=== PATIENT | female | born 1940 | race Caucasian/White ===

== ENCOUNTER → 2017-12-07 14:02 | Outpatient (CLI) | payer MEDICARE, SELFPAY ==
[2017-12-07 15:43] LABS: Absolute Lymphocyte Count 2.88 X10^3/ul (0.83-4.51); Absolute Neutrophil Count 4.7 X10^3/uL (2.0-7.7); Basophil# 0.03 X10^3/uL; Basophil% 0.3 % (0-1); Eosinophil# 0.07 X10^3/uL; Eosinophils% 0.8 % (0-5); Hematocrit 43.6 % (37-47); Hemoglobin 14.1 g/dl (12.0-15.0); Lymphocyte # 2.88 X10^3/ul (4.0); Lymphocyte % 32.3 % (19-41); Mean Corp Hgb Conc 32.3 g/gl (32-36); Mean Corpuscular Hgb 29.9 pg (27.0-32.0); Mean Corpuscular Volume 92.6 fL (81-99); Mean Platelet Vol. 10.6 fl (6.2-12.0); Monocyte# 1.11 X10^3/uL; Monocyte% 12.4 % (0-10); Neutrophil # 4.74 X10^3/uL (2.7-7.7); Neutrophil % 53.1 % (47-70); Platelet Count 195 K/mm3 (150-450); RBC Distribution Width CV 16.8 % (11.6-14.6); RBC Distribution Width SD 55.9 fl (35.1-43.9); Red Blood Count 4.71 M/mm3 (4.2-5.4); White Blood Count 8.9 K/mm3 (4.4-11.0)
[2017-12-07 15:49] LABS: POSITIVE COUNT NO; POSITIVE DIFFERENTIAL NO; POSITIVE MORPHOLOGY NO
[2017-12-07 16:17] LABS: AST(SGOT) 30 U/L (15-37); Alanine Aminotransfer ALT/SGPT 46 U/L (13-56); Albumin, Serum 3.5 g/dL (3.2-5.0); Alkaline Phosphatase 68 U/L (45-117); Bilirubin, Direct 0.13 mg/dL (0.00-0.30); GGTP 42 U/L (5-55); Protein, Total 8.5 g/dL (6.4-8.2)
== END ==
PROVIDERS: Family Provider Family Medicine; PCP Family Medicine; Visit Provider Internal Medicine Gastroenterology
DX: R74.8 Abnormal levels of other serum enzymes (principal)
CPT/HCPCS: 36415; 80076; 82977; 85025

== ENCOUNTER → 2017-12-28 11:18 | Outpatient (CLI) | payer MEDICARE, SELFPAY ==
--- NOTE | 2017-12-28 11:25 | RAD_ITS ---
STUDY: X-RAY CHEST REASON FOR EXAM: Female, 77 years old. Chest pain and fever TECHNIQUE: Frontal and lateral views of the chest. COMPARISON: 06/23/2017. FINDINGS: The lungs are clear and expanded. There is no demonstrated pleural abnormality. Normal size heart. Normal mediastinum and alejandro. Normal visualized pulmonary arteries. Normal visualized aortic arch and descending thoracic aorta. Normal visualized thoracic spine. Normal visualized ribs, clavicles, and shoulders. There is no demonstrated abnormality of the visualized soft tissue structures of the upper abdomen. RAD/Chest PA and Lateral IMPRESSION: Normal x-ray examination of the chest. Electronically Signed: Salvatore Barrios MD at 11:53 EDT , Service support ,
[2017-12-28 12:11] LABS: Absolute Lymphocyte Count 1.54 X10^3/ul (0.83-4.51); Absolute Neutrophil Count 5.4 X10^3/uL (2.0-7.7); Basophil# 0.02 X10^3/uL; Basophil% 0.3 % (0-1); Eosinophil# 0.03 X10^3/uL; Eosinophils% 0.4 % (0-5); Hematocrit 46.9 % (37-47); Hemoglobin 15.1 g/dl (12.0-15.0); Lymphocyte # 1.54 X10^3/ul (4.0); Lymphocyte % 19.3 % (19-41); Mean Corp Hgb Conc 32.2 g/gl (32-36); Mean Corpuscular Hgb 30.1 pg (27.0-32.0); Mean Corpuscular Volume 93.4 fL (81-99); Mean Platelet Vol. 10.1 fl (6.2-12.0); Monocyte# 0.92 X10^3/uL; Monocyte% 11.5 % (0-10); Neutrophil # 5.44 X10^3/uL (2.7-7.7); Neutrophil % 68.1 % (47-70); Platelet Count 157 K/mm3 (150-450); RBC Distribution Width CV 15.9 % (11.6-14.6); RBC Distribution Width SD 53.7 fl (35.1-43.9); Red Blood Count 5.02 M/mm3 (4.2-5.4)
[2017-12-28 12:21] LABS: POSITIVE COUNT NO; POSITIVE DIFFERENTIAL NO; POSITIVE MORPHOLOGY NO
[2017-12-28 12:29] LABS: ALB/GLOB Ratio 0.7 RATIO (0.9-2.4); AST(SGOT) 44 U/L (15-37); Alanine Aminotransfer ALT/SGPT 58 U/L (13-56); Albumin, Serum 3.6 g/dL (3.2-5.0); Alkaline Phosphatase 71 U/L (45-117); Anion Gap 9 (5-15); BUN 9 mg/dL (7-18); BUN/Creat Ratio 9.6 RATIO (10-20); CPK Total, Creatine Kinase 54 U/L (26-192); Calcium,Total 8.8 mg/dL (8.5-10.1); Chloride 101 mmol/L (98-107); Creatinine, Serum 0.94 mg/dL (0.55-1.02); EST Glomerular Filtration Rate 61 mL/min (>60); Est Glom Filt Rate - Afr Amer 74 mL/min (>60); Globulin 5.2 g/dL (2.2-4.2); Glucose 105 mg/dL (74-106); Potassium 3.5 mmol/L (3.5-5.1); Protein, Total 8.8 g/dL (6.4-8.2); Sodium Level 137 mmol/L (136-145)
[2017-12-28 12:33] LABS: Vitamin B12 254 pg/mL (211-911)
== END ==
PROVIDERS: Family Provider Family Medicine; PCP Family Medicine; Visit Provider Nurse Practitioner Family
DX: I51.81 Takotsubo syndrome (principal)
CPT/HCPCS: 36415; 71046; 80053; 82550; 82607; 83735; 84484; 85025; 86140

== ENCOUNTER 2017-12-29 11:20 | Inpatient (IN) | payer MEDICARE, SELFPAY ==
[2017-12-29] VITALS (16 sets, daily range): BP systolic 95–117; BP diastolic 49–91; PULSE 93–109; RESP 13–25; TEMP 36.7–37.7; O2SAT 93–98; BMI 20.9; BMI 22.0; BMI 22.1
--- NOTE | 2017-12-29 11:31 | RAD_ITS ---
STUDY: X-RAY CHEST REASON FOR EXAM: Female, 77 years old. Chest pain TECHNIQUE: Single AP portable view of the chest. COMPARISON: 12/28/2017. FINDINGS: The lungs are clear and expanded. There is no demonstrated pleural abnormality. Normal size heart. Normal mediastinum and alejandro. Normal visualized pulmonary arteries. Normal visualized aortic arch and descending thoracic aorta. Normal visualized thoracic spine. Normal visualized ribs, clavicles, and shoulders. There is no demonstrated abnormality of the visualized soft tissue structures of the upper abdomen. RAD/Chest 1 View (Portable) IMPRESSION: Normal x-ray examination of the chest. Electronically Signed: Salvatore Barrios MD at 14:03 EDT , Service support ,
--- NOTE | 2017-12-29 11:31 | EKG12_ITS ---
Test Reason : CP Blood Pressure : / mmHG Vent. Rate : 105 BPM Atrial Rate : 105 BPM P-R Int : 140 ms QRS Dur : 080 ms QT Int : 332 ms P-R-T Axes : 058 007 065 degrees QTc Int : 438 ms Sinus tachycardia Inferior infarct , age undetermined Abnormal ECG Confirmed by DEJA COELLO, GARETH ([id number]), rewrite editor CHILO BIRCH ([id number] on 01/02/2018 3:42:57 PM Referred By: SETH GONZALEZ Confirmed By:GARETH SHORT MD
[2017-12-29] MEDS: 0.9% Normal Saline 1,000 ML 1000 ML IV (11:42)
[2017-12-29 11:43] LABS: Absolute Lymphocyte Count 0.95 X10^3/ul (0.83-4.51); Absolute Neutrophil Count 4.8 X10^3/uL (2.0-7.7); Basophil# 0.04 X10^3/uL; Basophil% 0.6 % (0-1); Eosinophil# 0.04 X10^3/uL; Eosinophils% 0.6 % (0-5); Hematocrit 45.3 % (37-47); Hemoglobin 15.1 g/dl (12.0-15.0); Lymphocyte # 0.95 X10^3/ul (4.0); Mean Corp Hgb Conc 33.3 g/gl (32-36); Mean Corpuscular Hgb 30.5 pg (27.0-32.0); Mean Corpuscular Volume 91.5 fL (81-99); Monocyte% 13.3 % (0-10); Neutrophil # 4.81 X10^3/uL (2.7-7.7); Neutrophil % 71.1 % (47-70); Platelet Count 144 K/mm3 (150-450); RBC Distribution Width CV 15.9 % (11.6-14.6); RBC Distribution Width SD 52.4 fl (35.1-43.9); Red Blood Count 4.95 M/mm3 (4.2-5.4); White Blood Count 6.8 K/mm3 (4.4-11.0)
[2017-12-29 11:44] LABS: POSITIVE COUNT NO; POSITIVE DIFFERENTIAL NO; POSITIVE MORPHOLOGY NO
[2017-12-29] MEDS: Ibuprofen 200 MG Tablet 400 MG PO (12:04)
[2017-12-29 12:14] LABS: ALB/GLOB Ratio 0.6 RATIO (0.9-2.4); AST(SGOT) 55 U/L (15-37); Alanine Aminotransfer ALT/SGPT 58 U/L (13-56); Albumin, Serum 3.2 g/dL (3.2-5.0); Alkaline Phosphatase 63 U/L (45-117); Anion Gap 7 (5-15); BUN 8 mg/dL (7-18); BUN/Creat Ratio 8.8 RATIO (10-20); Calcium,Total 8.2 mg/dL (8.5-10.1); Chloride 98 mmol/L (98-107); Creatinine, Serum 0.91 mg/dL (0.55-1.02); EST Glomerular Filtration Rate 64 mL/min (>60); Est Glom Filt Rate - Afr Amer 77 mL/min (>60); Estimated Creatinine Clearance 37.19 ml/min; Globulin 5.2 g/dL (2.2-4.2); Glucose 128 mg/dL (74-106); Potassium 3.5 mmol/L (3.5-5.1); Protein, Total 8.4 g/dL (6.4-8.2); Sodium Level 131 mmol/L (136-145)
[2017-12-29 12:23] LABS: International Normalized Ratio 1.1; Prothrombin Time (Protime)PT. 14.3 SECONDS (11.7-14.9)
[2017-12-29 12:24] LABS: Partial Thromboplast Time 28.4 Seconds (24.1-36.2)
--- NOTE | 2017-12-29 12:24 | ED.DCSUM_ITS ---
- ER Visit Summary Date of Service: 12/29/17 Chief Complaint: Ill History of Present Illness: The patient is a 77 F that has not been feeling well for several days. She has had some chest pain. She saw her PCP and had a normal troponin and chest x-ray. She is also having a fever, nausea, vomiting, and a rash over the right chest. She has a history of lupus and auto immune hepatitis. She also has a history of hypertension, hyperlipidemia, and hypothyroidism. Physical Examination: Temperature 100 and heart rate 108. Respiratory rate 20. Blood pressure normal. Pulse ox 93% on room air. Patient appears uncomfortable but not toxic or in distress. She is alert and oriented. Heart tachycardic. Lungs clear. Abdomen soft and nontender. Extremities unremarkable and nontender. She has a vesicular rash over the right upper chest extending into her right neck and right back. Neurovascular intact grossly in all extremities. Test Results: EKG showed sinus rhythm at a rate of [address] changes. No sign of acute ischemia or infarction. Hemoglobin 15.1 and platelets 144. Sodium 131 and glucose 128. Total bilirubin 1.2. Liver enzymes 5855. Troponin negative. Lactate 2.0. Chest x-ray, urinalysis, ammonia level, and cultures pending. Emergency Department Course and Treatment: Patient was placed on a monitor. Treated with IV fluids and Motrin while awaiting results. She did take Tylenol and Zofran at home already. Workup was fairly unremarkable. EKG and labs as noted above. Chest x-ray showed no acute findings. Urinalysis unremarkable. Ammonia level normal. Patient continued to have tachycardia with a heart rate 100. Blood pressure remained in the upper 90s systolic. She maintained good mentation and skin perfusion. I did continue fluid hydration. Patient was treated with acyclovir. I spoke with the hospitalist who will admit for further care. Treatment Plan: Above Disposition: Admission Impression: 1. Shingles 2. Fever This note was generated with [employer] dictation software. It may contain incorrect words, spelling, and punctuation that were not noted in review of the chart prior to signing ED Disposition - Plan for ED Patient: Chief Complaint: General Illness Referrals: Ashvin Cardenas MD [Primary Care Provider] -
[2017-12-29 12:30] LABS: Bacteria 0 SEEN /hpf (None Seen); Red Blood Cells-Urine 0 SEEN /hpf (0-5); Squamous Epithelial Cells - UA 0 SEEN /hpf (5-10)
[2017-12-29 12:41] LABS: Color, Urine Yellow (Yellow); Glucose, Dipstick Normal (Normal); Ketone-Dipstick 15 mg/dl (Negative); Leukocyte Esterase-Dipstick 25 /ul (Negative); Nitrite-Dipstick Negative (Negative); Occult Blood-Urine Negative /ul (Negative); Protein-Dipstick 30 mg/dl (Negative); Urine Bilirubin Dipstick Negative (Negative); Urine Clarity Clear (Clear); Urine Urobilinogen Normal (Normal)
[2017-12-29 12:47] LABS: Mucous, Urine 1+ /hpf (<or=2+); White Blood Cells 0-5 SEEN /hpf (0-5)
[2017-12-29] MEDS: 0.9% Normal Saline 1,000 ML 999 ML IV (14:53)
[2017-12-29 15:36] LABS: Reflex Lactate? Y
[2017-12-29 16:40] LABS: Lactic Acid 1.1 mmol/L (0.4-2.0)
--- NOTE | 2017-12-29 17:29 | PCM.HP.STD ---
History of Present Illness Date of Admission: 12/29/17 Chief Complaint: Fever The patient is a 77 year old F with past medical history of lupus and autoimmune hepatitis who presented with fever and malaise for several days ,she is now found to have vesicular rash over the right upper chest wall these are painful. Emergency room the patient is more than 100 , she was felt to have possible varicella zoster IV acyclovir was initiated. He denies any cough or purulent sputum production, shortness of breath, or vomiting. Past Medical History Past Medical History (Chronic Problems): Chronic Problems (Last Updated 06/28/17 @ 14:58 by Cecilia Sanchez) Nonhealing nonsurgical wound (Chronic) right forearm and left calf Traumatic open wound of right lower leg (Chronic) Hypothyroidism (Chronic) Monoclonal gammopathies (Chronic) Lupus (Chronic) Hypertension (Chronic) Autoimmune hepatitis (Chronic) Dyslipidemia (Chronic) Medical History: Medical History (Last Updated 06/28/17 @ 14:58 by Cecilia Sanchez) COLONOSCOPY Glaucoma H40.9 Heart disease I51.9 History of left heart catheterization (LHC) Z98.890 Hyperlipidemia E78.5 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 Tachycardia R00.0 Allergies griseofulvin ultramicrosize [From Priti-PEG (ultramicrosize)] Allergy (Severe, Verified 12/29/17 11:26) RACING HEART AND SEVERE H/A azathioprine [From Imuran] Adverse Reaction (Severe, Verified 12/29/17 11:26) Nausea/Vom/Diarrhea azathioprine sodium [From Imuran] Adverse Reaction (Severe, Verified 12/29/17 11:26) Nausea/Vom/Diarrhea Penicillins Adverse Reaction (Severe, Verified 12/29/17 11:26) Hives Home Medications: Ambulatory Orders Medication Instructions Recorded Aspirin [Aspirin, Baby] 81 mg PO DAILY@0800 06/23/17 Bimatoprost [Lumigan Opthalmic] 1 drop EACH EYE QHS 06/23/17 Brimonidine 0.15% [Alphagan P 1 drop EACH EYE BID 06/23/17 0.15%] Budesonide [Budesonide EC] 3 mg PO DAILY 06/23/17 Grape Seed Extract [Meganatural-Bp] 300 mg PO DAILY 06/23/17 Hydroxychloroquine [Plaquenil] 200 mg PO DAILYCM 06/23/17 Levothyroxine Sodium [Synthroid] 75 mcg PO DAILY 06/23/17 Metoprolol Tartrate [Lopressor 50 mg PO BID 06/23/17 (beta lorie)] Timolol 0.5% [Timoptic] 1 drop EACH EYE DAILY 06/23/17 Surgical History: Surgical History (Last Updated 06/28/17 @ 14:58 by Cecilia Sanchez) Hx of cholecystectomy Z98.890, Z90.49 Surgical History: cataract, cholecystectomy, - - D+C x 2, BLTL, sinus cyst removal BL. Psychiatric History: No pertinent psych hx VETERINARY BACTERIOLOGIST History: No pertinent VETERINARY BACTERIOLOGIST history Smoking Status: Never smoker - *Family History Maternal Family History: Family History (Last Updated 06/28/17 @ 14:58 by Cecilia Sanchez) Father Heart disease Mother Heart disease History Items: No pertinent history Paternal Family History: Family History (Last Updated 06/28/17 @ 14:58 by Cecilia Sanchez) Father Heart disease Mother Heart disease History Items: No pertinent history Review of Systems Comment: All Systems were reviewed with pertinent positives mentioned in the HPI above. VTE Information - Inpt Only VTE Present on Admission: No VTE Mechan Device Prophylaxis: SCD's VTE Pharm Prophylaxis ordered?: No - Physical Exam General: Alert, Oriented x3 HEENT: Atraumatic Oral: Moist Mucosa Neck: Supple Lungs: Clear to auscultation Cardiovascular: Regular rate Skin: - - vericular eruptions over left upper chest wall Vital Signs Temp Pulse Resp BP Pulse Ox 98.1 F 95 18 107/57 L 97 12/29/17 16:45 12/29/17 16:45 12/29/17 16:45 12/29/17 16:45 12/29/17 16:47 Oxygen Flow Rate (L/min) 2 Oxygen Delivery Method Nasal Cannula Weight: 51 kg Body Mass Index (BMI) 22.0 Laboratory Tests Past 24 Hrs 12/29/17 15:49 Lactic Acid 1.1 Assessment/Plan All Active Problems (Last Updated 06/28/17 @ 14:58 by Cecilia Sanchez) Medical management (Acute) C. difficile colitis (Acute) Generalized weakness (Acute) Uncontrollable nausea and vomiting (Acute) 1. Herpes zoster, right upper chest wall; patient has been started on IV acyclovir which we would continue. I see No evidence of secondary bacterial infection at this time and antibiotic therapy is not indicated. 2. Fever secondary to #1 3. Dehydration; we will start him on IV hydration. 4. History of lupus; we will continue her Plaquenil 5. Autoimmune hepatitis ; stable 6. Chronic steroid therapy with budesonide, will place her on stress a dose. 7. Hypothyroidism; she is on Synthroid. 8. DVT prophylaxis with Lovenox. Code Visit Inpatient E&M: 97083 Init Hosp L3
--- NOTE | 2017-12-29 20:10 | NURSING ---
PTS DAUGHTERS RANG CALL LIGHT WITH CONCERN THAT PTS EYELIDS, CHIN AND NECK AREA ARE MORE SWOLLEN THAN USUAL. PT DENIES DIFFICULTY BREATHING, DENIES ITCHING, NO DIFFICULTY SWALLOWING, NO NEW HIVES, LUNG SOUNDS CLEAR THROUGHOUT. NO APPARENT DISTRESS. PT STATES HANDS FEEL A LITTLE SWOLLEN TOO. VS OBTAINED. SPOKE WITH DR CUNNINGHAM REGARDING DAUGHTERS CONCERNS AND NEW ORDER RECEIVED TO DECREASE IV FLUIDS TO 75ML/HR.
[2017-12-29] MEDS: 0.9% Normal Saline 1,000 ML 75 ML IV (20:28)
[2017-12-29] MEDS: Metoprolol Tartrate 50 MG Tablet PO (23:29)
[2017-12-29] MEDS: Aspirin 81 MG TAB.CHEW PO (23:30)
[2017-12-29] MEDS: Latanoprost 0.005% 1 Bottle 1 DRP EACH EYE (23:31)
[2017-12-29] MEDS: BRIMONIDINE 0.15% 5 ML Bottle 1 DRP EACH EYE (23:31)
[2017-12-30] VITALS (17 sets, daily range): BP systolic 100–138; BP diastolic 54–65; PULSE 85–121; RESP 18–20; TEMP 37.4–38.7; O2SAT 96–98
[2017-12-30] MEDS: Ondansetron 4 MG/2 ML Vial IV ×4 (00:07→22:12)
[2017-12-30] MEDS: proMETHazine 25 MG/ML Syringe 12.5 MG IV (03:03)
[2017-12-30] MEDS: 0.9% NaCl Peripheral Flush Adult/Peds IV ×3 (03:11→12:10)
[2017-12-30] MEDS: Acetaminophen 325 MG Tablet 650 MG PO ×2 (03:40→09:16)
[2017-12-30] MEDS: Levothyroxine 75 MCG Tablet PO (05:44)
[2017-12-30 06:49] LABS: Absolute Lymphocyte Count 0.73 X10^3/ul (0.83-4.51); Absolute Neutrophil Count 2.9 X10^3/uL (2.0-7.7); Basophil# 0.01 X10^3/uL; Basophil% 0.2 % (0-1); Eosinophil# 0.05 X10^3/uL; Eosinophils% 1.2 % (0-5); Hematocrit 39.6 % (37-47); Hemoglobin 12.8 g/dl (12.0-15.0); Lymphocyte # 0.73 X10^3/ul (4.0); Lymphocyte % 17.8 % (19-41); Mean Corp Hgb Conc 32.3 g/gl (32-36); Mean Corpuscular Hgb 29.8 pg (27.0-32.0); Mean Corpuscular Volume 92.3 fL (81-99); Mean Platelet Vol. 10.2 fl (6.2-12.0); Monocyte# 0.44 X10^3/uL; Monocyte% 10.8 % (0-10); Neutrophil # 2.85 X10^3/uL (2.7-7.7); Neutrophil % 69.8 % (47-70); Platelet Count 102 K/mm3 (150-450); RBC Distribution Width CV 15.9 % (11.6-14.6); RBC Distribution Width SD 53.5 fl (35.1-43.9); Red Blood Count 4.29 M/mm3 (4.2-5.4); White Blood Count 4.1 K/mm3 (4.4-11.0)
[2017-12-30 07:03] LABS: POSITIVE COUNT NO; POSITIVE DIFFERENTIAL NO; POSITIVE MORPHOLOGY NO
[2017-12-30 07:05] LABS: Anion Gap 9 (5-15); BUN 5 mg/dL (7-18); BUN/Creat Ratio 9.2 RATIO (10-20); Calcium,Total 7.3 mg/dL (8.5-10.1); Chloride 107 mmol/L (98-107); Creatinine, Serum 0.54 mg/dL (0.55-1.02); EST Glomerular Filtration Rate 115 mL/min (>60); Est Glom Filt Rate - Afr Amer 139 mL/min (>60); Estimated Creatinine Clearance 37.93 ml/min; Glucose 94 mg/dL (74-106); Potassium 3.3 mmol/L (3.5-5.1); Sodium Level 137 mmol/L (136-145)
[2017-12-30] MEDS: 0.9% Normal Saline 1,000 ML 75 ML IV (09:23)
--- NOTE | 2017-12-30 09:33 | NURSING ---
PT THREW UP ONE TYLENOL A FEW MINUTES AFTER ADMINTERATION.
[2017-12-30] MEDS: Timolol 0.5% 5ML OPTH.BTL 1 DRP EACH EYE (11:06)
[2017-12-30] MEDS: BRIMONIDINE 0.15% 5 ML Bottle 1 DRP EACH EYE ×2 (11:06→22:11)
[2017-12-30] MEDS: Budesonide 3 MG CAPSULE.EC 9 MG PO (11:09)
[2017-12-30] MEDS: Enoxaparin 40 MG/0.4 ML Syringe SC (11:09)
[2017-12-30] MEDS: Metoprolol Tartrate 50 MG Tablet PO ×2 (11:10→22:10)
[2017-12-30] MEDS: Acetaminophen 650 MG Suppository RECTAL ×2 (11:46→22:12)
--- NOTE | 2017-12-30 12:12 | PCM.PN.HOSP ---
Vitals/I&O's: Vital Signs Temp Pulse Resp BP Pulse Ox 101.7 F H 121 H 18 127/65 H 97 12/30/17 11:19 12/30/17 11:19 12/30/17 11:19 12/30/17 11:19 12/30/17 11:19 Oxygen Flow Rate (L/min) 2 Oxygen Delivery Method Nasal Cannula Weight: 51 kg Body Mass Index (BMI) 22.0 Intake and Output for Last 24 Hours 12/28/17 12/29/17 12/30/17 23:59 23:59 23:59 Intake Total 1481 / 1481 Output Total 1000 / 1000 Balance 481 / 481 Laboratory Results 12/29/17 15:49: Lactic Acid 1.1 12/30/17 05:45: WBC 4.1 L, RBC 4.29, Hgb 12.8, Hct 39.6, MCV 92.3, MCH 29.8, MCHC 32.3, RDW 15.9 H, RDW Differential 53.5 H, Plt Count 102 L, MPV 10.2, Immature Gran % (Auto) 0.200, Neut % (Auto) 69.8, Lymph % (Auto) 17.8 L, [place] % (Auto) 10.8 H, Eos % (Auto) 1.2, Baso % (Auto) 0.2, Absolute Neuts (auto) 2.9, Absolute Lymphs (auto) 0.73 L, Total Counted Not Reportable 12/30/17 05:45: Sodium 137, Potassium 3.3 L, Chloride 107, Carbon Dioxide 21.0, Anion Gap 9, BUN 5 L, Creatinine 0.54 L, Estim Creat Clear Calc 37.93, Est GFR (MDRD) Af Amer 139, Est GFR (MDRD) Non-Af 115, BUN/Creatinine Ratio 9.2 L, Glucose 94, Calcium 7.3 L Current Medications Acetaminophen (Tylenol) 650 mg PO Q4H PRN PRN PRN Reason: FEVER Last Admin: 12/30/17 09:16 Dose: 650 mg Acetaminophen (Tylenol) 650 mg RECTAL Q4H PRN PRN PRN Reason: pain fever Last Admin: 12/30/17 11:46 Dose: 650 mg Aspirin (Aspirin, Baby) 81 mg PO DAILY@0800 [facility] Last Admin: 12/29/17 23:30 Dose: 81 mg Brimonidine Tartrate (Alphagan P 0.15%) 1 drop EACH EYE BID [facility] Last Admin: 12/30/17 11:06 Dose: 1 drop Budesonide (Budesonide Ec) 9 mg PO DAILY [facility] Last Admin: 12/30/17 11:09 Dose: 6 mg Enoxaparin Sodium (Lovenox) 40 mg SC DAILY@1000 [facility] [place] Last Admin: 12/30/17 11:09 Dose: 40 mg Hydroxychloroquine Sulfate (Plaquenil) 200 mg PO 2200 [facility] Acyclovir Sodium 400 mg/ (Dextrose) 258 mls @ 258 mls/hr IV Q8 [facility] [place] Last Admin: 12/30/17 05:43 Dose: 258 mls/hr Sodium Chloride () 1,000 mls @ 75 mls/hr IV .[id number] [facility] Last Admin: 12/30/17 09:23 Dose: 75 mls/hr Latanoprost (Xalatan Opthalmic) 1 drop EACH EYE QHS [facility] Last Admin: 12/29/17 23:31 Dose: 1 drop Levothyroxine Sodium (Synthroid) 75 mcg PO DAILY@0600 [facility] [place] Last Admin: 12/30/17 05:44 Dose: 75 mcg Magnesium Hydroxide (Milk Of Magnesia) 30 ml PO DAILY PRN PRN PRN Reason: Constipation Metoprolol Tartrate (Lopressor (Beta Rosalind)) 50 mg PO BID [facility] Last Admin: 12/30/17 11:10 Dose: 50 mg Nutritional Formula (Lactose Free) (Ensure Clear) 120 ml PO 4X/DAY [facility] Ondansetron HCl (Zofran) 4 mg IV Q4H PRN PRN PRN Reason: NAUSEA Last Admin: 12/30/17 09:22 Dose: 4 mg Promethazine HCl (Phenergan) 12.5 mg IV Q6H PRN PRN PRN Reason: NAUSEA/VOMITING Last Admin: 12/30/17 03:03 Dose: 12.5 mg Sodium Chloride () 5 - 30 ml IV UD PRN PRN Reason: SALINE FLUSH Last Admin: 12/30/17 09:22 Dose: 10 ml Timolol Maleate (Timoptic) 1 drop EACH EYE DAILY [facility] Last Admin: 12/30/17 11:06 Dose: 1 drop Medical Necessity - Tobacco Use Smoking Status: Never smoker Assessment/Plan All Active Problems (Last Updated 06/28/17 @ 14:58 by Cecilia Sanchez) Medical management (Acute) C. difficile colitis (Acute) Generalized weakness (Acute) Uncontrollable nausea and vomiting (Acute) 1. Herpes zoster, right upper chest wall; we will continue IV acyclovir . I see No evidence of secondary bacterial infection at this time and antibiotic therapy is not indicated. 2. Fever secondary to #1 3. Dehydration; we will continue gentle hydration. 4. History of lupus; she is on Plaquenil 5. Autoimmune hepatitis ; she takes 3mg of Budesonide daily 6. Chronic steroid therapy with budesonide, changed to stress a dose steroids. 7. Hypothyroidism; she is on Synthroid. 8. DVT prophylaxis with Lovenox. 9. Generalized weakness due to medical illness; PT/OT Code Visit Inpatient E&M: 52820 Subs Hosp L3
--- NOTE | 2017-12-30 12:22 | PN_ITS ---
Vitals/I&O's: Vital Signs Temp Pulse Resp BP Pulse Ox 101.7 F H 121 H 18 127/65 H 97 12/30/17 11:19 12/30/17 11:19 12/30/17 11:19 12/30/17 11:19 12/30/17 11:19 Oxygen Flow Rate (L/min) 2 Oxygen Delivery Method Nasal Cannula Weight: 51 kg Body Mass Index (BMI) 22.0 Intake and Output for Last 24 Hours 12/28/17 12/29/17 12/30/17 23:59 23:59 23:59 Intake Total 1481 / 1481 Output Total 1000 / 1000 Balance 481 / 481 Laboratory Results 12/29/17 15:49: Lactic Acid 1.1 12/30/17 05:45: WBC 4.1 L, RBC 4.29, Hgb 12.8, Hct 39.6, MCV 92.3, MCH 29.8, MCHC 32.3, RDW 15.9 H, RDW Differential 53.5 H, Plt Count 102 L, MPV 10.2, Immature Gran % (Auto) 0.200, Neut % (Auto) 69.8, Lymph % (Auto) 17.8 L, [place] % (Auto) 10.8 H, Eos % (Auto) 1.2, Baso % (Auto) 0.2, Absolute Neuts (auto) 2.9, Absolute Lymphs (auto) 0.73 L, Total Counted Not Reportable 12/30/17 05:45: Sodium 137, Potassium 3.3 L, Chloride 107, Carbon Dioxide 21.0, Anion Gap 9, BUN 5 L, Creatinine 0.54 L, Estim Creat Clear Calc 37.93, Est GFR ( MDRD) Af Amer 139, Est GFR (MDRD) Non-Af 115, BUN/Creatinine Ratio 9.2 L, Glucose 94, Calcium 7.3 L Current Medications Acetaminophen (Tylenol) 650 mg PO Q4H PRN PRN PRN Reason: FEVER Last Admin: 12/30/17 09:16 Dose: 650 mg Acetaminophen (Tylenol) 650 mg RECTAL Q4H PRN PRN PRN Reason: pain fever Last Admin: 12/30/17 11:46 Dose: 650 mg Aspirin (Aspirin, Baby) 81 mg PO DAILY@0800 [facility] Last Admin: 12/29/17 23:30 Dose: 81 mg Brimonidine Tartrate (Alphagan P 0.15%) 1 drop EACH EYE BID [facility] Last Admin: 12/30/17 11:06 Dose: 1 drop Budesonide (Budesonide Ec) 9 mg PO DAILY [facility] Last Admin: 12/30/17 11:09 Dose: 6 mg Enoxaparin Sodium (Lovenox) 40 mg SC DAILY@1000 [facility] Last Admin: 12/30/17 11:09 Dose: 40 mg Hydroxychloroquine Sulfate (Plaquenil) 200 mg PO 2200 [facility] Acyclovir Sodium 400 mg/ (Dextrose) 258 mls @ 258 mls/hr IV Q8 [facility] Last Admin: 12/30/17 05:43 Dose: 258 mls/hr Sodium Chloride () 1,000 mls @ 75 mls/hr IV .[id number] [facility] Last Admin: 12/30/17 09:23 Dose: 75 mls/hr Latanoprost (Xalatan Opthalmic) 1 drop EACH EYE QHS [facility] Last Admin: 12/29/17 23:31 Dose: 1 drop Levothyroxine Sodium (Synthroid) 75 mcg PO DAILY@0600 [facility] Last Admin: 12/30/17 05:44 Dose: 75 mcg Magnesium Hydroxide (Milk Of Magnesia) 30 ml PO DAILY PRN PRN PRN Reason: Constipation Metoprolol Tartrate (Lopressor (Beta Rosalind)) 50 mg PO BID [facility] Last Admin: 12/30/17 11:10 Dose: 50 mg Nutritional Formula (Lactose Free) (Ensure Clear) 120 ml PO 4X/DAY [facility] Ondansetron HCl (Zofran) 4 mg IV Q4H PRN PRN PRN Reason: NAUSEA Last Admin: 12/30/17 09:22 Dose: 4 mg Promethazine HCl (Phenergan) 12.5 mg IV Q6H PRN PRN PRN Reason: NAUSEA/VOMITING Last Admin: 12/30/17 03:03 Dose: 12.5 mg Sodium Chloride () 5 - 30 ml IV UD PRN PRN Reason: SALINE FLUSH Last Admin: 12/30/17 09:22 Dose: 10 ml Timolol Maleate (Timoptic) 1 drop EACH EYE DAILY [facility] Last Admin: 12/30/17 11:06 Dose: 1 drop Medical Necessity - Tobacco Use Smoking Status: Never smoker Assessment/Plan All Active Problems (Last Updated 06/28/17 @ 14:58 by Cecilia Sanchez) Medical management (Acute) C. difficile colitis (Acute) Generalized weakness (Acute) Uncontrollable nausea and vomiting (Acute) 1. Herpes zoster, right upper chest wall; we will continue IV acyclovir . I see No evidence of secondary bacterial infection at this time and antibiotic therapy is not indicated. 2. Fever secondary to #1 3. Dehydration; we will continue gentle hydration. 4. History of lupus; she is on Plaquenil 5. Autoimmune hepatitis ; she takes 3mg of Budesonide daily 6. Chronic steroid therapy with budesonide, changed to stress a dose steroids. 7. Hypothyroidism; she is on Synthroid. 8. DVT prophylaxis with Lovenox. 9. Generalized weakness due to medical illness; PT/OT Code Visit Inpatient E&M: 95351 Subs Hosp L3
[2017-12-30] MEDS: Latanoprost 0.005% 1 Bottle 1 DRP EACH EYE (22:11)
[2017-12-31] VITALS (14 sets, daily range): BP systolic 131–144; BP diastolic 61–66; PULSE 86–107; RESP 16–18; TEMP 37.1–37.8; O2SAT 97–98
[2017-12-31] MEDS: 0.9% Normal Saline 1,000 ML 75 ML IV (00:54)
[2017-12-31] MEDS: Levothyroxine 75 MCG Tablet PO (06:15)
--- NOTE | 2017-12-31 08:06 | PCM.PN.HOSP ---
Subjective: Patient is a 77-year-old female with underlying history of lupus and autoimmune hepatitis who presented with vesicular eruptions involving the right upper chest extending to the ear and assessment of herpes zoster infection was made admitted to regular nursing floor where patient has since been managed Objective: GENERAL: cooperative and in no apparent distress. HEENT: Clear conjunctiva, moist oral mucosa NECK; supple, normal thyroid, no distended JVD. CHEST: Area of erythema with vesicles right upper chest extending the right side of the neck and ear HEART: Regular S1 S2, no audible murmurs ABDOMEN: soft, non-tender, normoactive bowel sounds, RECTAL: deferred EXTREMITIES: No edema, no clubbing, no cyanosis. CLINICAL VETERINARIAN: Awake; no lateralizing signs. SKIN: As described above Vitals/I&O's: Vital Signs Temp Pulse Resp BP Pulse Ox 98.8 F 96 16 144/65 H 97 12/31/17 04:10 12/31/17 06:00 12/31/17 04:10 12/31/17 04:10 12/31/17 06:39 Oxygen Flow Rate (L/min) 2 Oxygen Delivery Method Nasal Cannula Weight: 51 kg Body Mass Index (BMI) 22.0 Intake and Output for Last 24 Hours 12/29/17 12/30/17 12/31/17 23:59 23:59 23:59 Intake Total 2952 / 2952 1519 / 1519 Output Total 1880 / 1880 2120 / 2120 Balance 1072 / 1072 -601 / -601 Current Medications Acetaminophen (Tylenol) 650 mg PO Q4H PRN PRN PRN Reason: FEVER Last Admin: 12/30/17 09:16 Dose: 650 mg Acetaminophen (Tylenol) 650 mg RECTAL Q4H PRN PRN PRN Reason: pain fever Last Admin: 12/30/17 22:12 Dose: 650 mg Aspirin (Aspirin, Baby) 81 mg PO DAILY@0800 [facility] Last Admin: 12/29/17 23:30 Dose: 81 mg Brimonidine Tartrate (Alphagan P 0.15%) 1 drop EACH EYE BID [facility] Last Admin: 12/30/17 22:11 Dose: 1 drop Budesonide (Budesonide Ec) 9 mg PO DAILY [facility] Last Admin: 12/30/17 11:09 Dose: 6 mg Capsaicin (Zostrix) 1 applic TOPICAL 4X/DAY PRN PRN PRN Reason: Protocol Enoxaparin Sodium (Lovenox) 40 mg SC DAILY@1000 [facility] Last Admin: 12/30/17 11:09 Dose: 40 mg Hydroxychloroquine Sulfate (Plaquenil) 200 mg PO 2200 [facility] Last Admin: 12/30/17 22:12 Dose: Not Given Acyclovir Sodium 400 mg/ (Dextrose) 258 mls @ 258 mls/hr IV Q8 [facility] Last Admin: 12/31/17 06:15 Dose: 258 mls/hr Sodium Chloride () 1,000 mls @ 75 mls/hr IV .[id number] [facility] Last Admin: 12/31/17 00:54 Dose: 75 mls/hr Latanoprost (Xalatan Opthalmic) 1 drop EACH EYE QHS [facility] Last Admin: 12/30/17 22:11 Dose: 1 drop Levothyroxine Sodium (Synthroid) 75 mcg PO DAILY@0600 [facility] Last Admin: 12/31/17 06:15 Dose: 75 mcg Magnesium Hydroxide (Milk Of Magnesia) 30 ml PO DAILY PRN PRN PRN Reason: Constipation Metoprolol Tartrate (Lopressor (Beta Rosalind)) 50 mg PO BID [facility] Last Admin: 12/30/17 22:10 Dose: 50 mg Nutritional Formula (Lactose Free) (Ensure Clear) 120 ml PO 4X/DAY [facility] Last Admin: 12/30/17 22:11 Dose: 120 ml Ondansetron HCl (Zofran) 4 mg IV Q4H PRN PRN PRN Reason: NAUSEA Last Admin: 12/30/17 22:12 Dose: 4 mg Promethazine HCl (Phenergan) 12.5 mg IV Q6H PRN PRN PRN Reason: NAUSEA/VOMITING Last Admin: 12/30/17 03:03 Dose: 12.5 mg Sodium Chloride () 5 - 30 ml IV UD PRN PRN Reason: SALINE FLUSH Last Admin: 12/30/17 12:10 Dose: 20 ml Timolol Maleate (Timoptic) 1 drop EACH EYE DAILY [facility] Last Admin: 12/30/17 11:06 Dose: 1 drop Medical Necessity - Tobacco Use Smoking Status: Never smoker Assessment/Plan All Active Problems (Last Updated 06/28/17 @ 14:58 by Cecilia Sanchez) Medical management (Acute) C. difficile colitis (Acute) Generalized weakness (Acute) Uncontrollable nausea and vomiting (Acute) Patient is a 77-year-old female with underlying history of lupus and autoimmune hepatitis who presented with vesicular eruptions involving the right upper chest extending to the ear and assessment of herpes zoster infection was made admitted to regular nursing floor where patient has since been managed 1. Acute herpes zoster infection involving the right upper chest patient was started on acyclovir admitted to regular nursing floor consultation was placed infectious disease 2. Dehydration managed with IV fluids with monitoring of electrolyte 3. Hyponatremia secondary to hypovolemic hyponatremia resolved with IV fluids 4. Lupus patient is on Plaquenil 5. Autoimmune hepatitis patient takes 3 mg of budesonide daily 6. Hypothyroidism-patient is on levothyroxine home dose continued 7. DVT prophylaxis SC Lovenox Code Visit Inpatient E&M: 58081 [facility] Hosp L3
--- NOTE | 2017-12-31 08:10 | PN_ITS ---
Subjective: Patient is a 77-year-old female with underlying history of lupus and autoimmune hepatitis who presented with vesicular eruptions involving the right upper chest extending to the ear and assessment of herpes zoster infection was made admitted to regular nursing floor where patient has since been managed Objective: GENERAL: cooperative and in no apparent distress. HEENT: Clear conjunctiva, moist oral mucosa NECK; supple, normal thyroid, no distended JVD. CHEST: Area of erythema with vesicles right upper chest extending the right side of the neck and ear HEART: Regular S1 S2, no audible murmurs ABDOMEN: soft, non-tender, normoactive bowel sounds, RECTAL: deferred EXTREMITIES: No edema, no clubbing, no cyanosis. 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 SKIN: As described above Vitals/I&O's: Vital Signs Temp Pulse Resp BP Pulse Ox 98.8 F 96 16 144/65 H 97 12/31/17 04:10 12/31/17 06:00 12/31/17 04:10 12/31/17 04:10 12/31/17 06:39 Oxygen Flow Rate (L/min) 2 Oxygen Delivery Method Nasal Cannula Weight: 51 kg Body Mass Index (BMI) 22.0 Intake and Output for Last 24 Hours 12/29/17 12/30/17 12/31/17 23:59 23:59 23:59 Intake Total 2952 / 2952 1519 / 1519 Output Total 1880 / 1880 2120 / 2120 Balance 1072 / 1072 -601 / -601 Current Medications Acetaminophen (Tylenol) 650 mg PO Q4H PRN PRN PRN Reason: FEVER Last Admin: 12/30/17 09:16 Dose: 650 mg Acetaminophen (Tylenol) 650 mg RECTAL Q4H PRN PRN PRN Reason: pain fever Last Admin: 12/30/17 22:12 Dose: 650 mg Aspirin (Aspirin, Baby) 81 mg PO DAILY@0800 [facility] Last Admin: 12/29/17 23:30 Dose: 81 mg Brimonidine Tartrate (Alphagan P 0.15%) 1 drop EACH EYE BID [facility] Last Admin: 12/30/17 22:11 Dose: 1 drop Budesonide (Budesonide Ec) 9 mg PO DAILY [facility] Last Admin: 12/30/17 11:09 Dose: 6 mg Capsaicin (Zostrix) 1 applic TOPICAL 4X/DAY PRN PRN PRN Reason: Protocol Enoxaparin Sodium (Lovenox) 40 mg SC DAILY@1000 [facility] Last Admin: 12/30/17 11:09 Dose: 40 mg Hydroxychloroquine Sulfate (Plaquenil) 200 mg PO 2200 [facility] Last Admin: 12/30/17 22:12 Dose: Not Given Acyclovir Sodium 400 mg/ (Dextrose) 258 mls @ 258 mls/hr IV Q8 [facility] Last Admin: 12/31/17 06:15 Dose: 258 mls/hr Sodium Chloride () 1,000 mls @ 75 mls/hr IV .[id number] [facility] Last Admin: 12/31/17 00:54 Dose: 75 mls/hr Latanoprost (Xalatan Opthalmic) 1 drop EACH EYE QHS [facility] Last Admin: 12/30/17 22:11 Dose: 1 drop Levothyroxine Sodium (Synthroid) 75 mcg PO DAILY@0600 [facility] Last Admin: 12/31/17 06:15 Dose: 75 mcg Magnesium Hydroxide (Milk Of Magnesia) 30 ml PO DAILY PRN PRN PRN Reason: Constipation Metoprolol Tartrate (Lopressor (Beta Rosalind)) 50 mg PO BID [facility] Last Admin: 12/30/17 22:10 Dose: 50 mg Nutritional Formula (Lactose Free) (Ensure Clear) 120 ml PO 4X/DAY [facility] Last Admin: 12/30/17 22:11 Dose: 120 ml Ondansetron HCl (Zofran) 4 mg IV Q4H PRN PRN PRN Reason: NAUSEA Last Admin: 12/30/17 22:12 Dose: 4 mg Promethazine HCl (Phenergan) 12.5 mg IV Q6H PRN PRN PRN Reason: NAUSEA/VOMITING Last Admin: 12/30/17 03:03 Dose: 12.5 mg Sodium Chloride () 5 - 30 ml IV UD PRN PRN Reason: SALINE FLUSH Last Admin: 12/30/17 12:10 Dose: 20 ml Timolol Maleate (Timoptic) 1 drop EACH EYE DAILY [facility] Last Admin: 12/30/17 11:06 Dose: 1 drop Medical Necessity - Tobacco Use Smoking Status: Never smoker Assessment/Plan All Active Problems (Last Updated 06/28/17 @ 14:58 by Cecilia Sanchez) Medical management (Acute) C. difficile colitis (Acute) Generalized weakness (Acute) Uncontrollable nausea and vomiting (Acute) Patient is a 77-year-old female with underlying history of lupus and autoimmune hepatitis who presented with vesicular eruptions involving the right upper chest extending to the ear and assessment of herpes zoster infection was made admitted to regular nursing floor where patient has since been managed 1. Acute herpes zoster infection involving the right upper chest patient was started on acyclovir admitted to regular nursing floor consultation was placed infectious disease 2. Dehydration managed with IV fluids with monitoring of electrolyte 3. Hyponatremia secondary to hypovolemic hyponatremia resolved with IV fluids 4. Lupus patient is on Plaquenil 5. Autoimmune hepatitis patient takes 3 mg of budesonide daily 6. Hypothyroidism-patient is on levothyroxine home dose continued 7. DVT prophylaxis SC Lovenox Code Visit Inpatient E&M: 12140 [facility] L[facility]
[2017-12-31 08:31] LABS: Hematocrit 37.1 % (37-47); Mean Corp Hgb Conc 32.3 g/gl (32-36); Mean Corpuscular Hgb 29.5 pg (27.0-32.0); Mean Corpuscular Volume 91.2 fL (81-99); Mean Platelet Vol. 10.4 fl (6.2-12.0); Platelet Count 104 K/mm3 (150-450); RBC Distribution Width CV 15.7 % (11.6-14.6); RBC Distribution Width SD 52.6 fl (35.1-43.9); Red Blood Count 4.07 M/mm3 (4.2-5.4); White Blood Count 4.4 K/mm3 (4.4-11.0)
[2017-12-31 08:32] LABS: Scan Indicated on CBC? Y/N NO
[2017-12-31] MEDS: Aspirin 81 MG TAB.CHEW PO (08:36)
[2017-12-31] MEDS: BRIMONIDINE 0.15% 5 ML Bottle 1 DRP EACH EYE (08:37)
[2017-12-31] MEDS: Timolol 0.5% 5ML OPTH.BTL 1 DRP EACH EYE (08:38)
[2017-12-31] MEDS: Budesonide 3 MG CAPSULE.EC 9 MG PO (08:42)
[2017-12-31] MEDS: Metoprolol Tartrate 50 MG Tablet PO ×2 (08:44→23:38)
[2017-12-31] MEDS: Enoxaparin 40 MG/0.4 ML Syringe SC (08:45)
[2017-12-31 09:14] LABS: Anion Gap 8 (5-15); BUN 3 mg/dL (7-18); BUN/Creat Ratio 4.4 RATIO (10-20); Calcium,Total 7.4 mg/dL (8.5-10.1); Chloride 105 mmol/L (98-107); Creatinine, Serum 0.68 mg/dL (0.55-1.02); EST Glomerular Filtration Rate 89 mL/min (>60); Est Glom Filt Rate - Afr Amer 108 mL/min (>60); Estimated Creatinine Clearance 37.93 ml/min; Glucose 143 mg/dL (74-106); Magnesium 1.8 mg/dL (1.6-2.6); Potassium 2.9 mmol/L (3.5-5.1); Sodium Level 136 mmol/L (136-145)
--- NOTE | 2017-12-31 12:21 | CASEMGMT ---
RN BOOKER Face to Face with patient for initial transition planning/care coordination assessment. RN CM introduced self and role at [facility]. Patient lying in bed, alert and oriented, daughter at bedside. Patient willing to participate in assessment and is able to answer all questions appropriately. Care providers, pharmacy, and demographics verified. See link attached. Patient wishes to discharge home, denies need for home health at this time. Patient states she has no further needs or concerns at this time. CM to follow for discharge planning needs that may arise. Disposition Plan: Patient to discharge home with family support and follow-up plans in place.
--- NOTE | 2017-12-31 13:49 | PCM.HP.ID ---
Problem List (1) Shingles Status: Acute Reason for Consult: shingles Consulted by: Dr. Sofia History of Present Illness: The patient is a 77 year old F with h/o autoimmune hepatitis and shingles once before who presented 12/29 with several days of R chest/shoulder/neck redness, tenderness, and blister formation. No confusion at home. Some mild neck soreness, nausea. No change in hearing, no vision changes, no headache. Came to ED with fever to 101.7. Started on iv acyclovir. Still with new vesicles forming, but overall feeling better. Full ROS performed and neg except as noted above. - Medical History Past Medical History (Chronic Problems): Chronic Problems (Last Updated 06/28/17 @ 14:58 by Cecilia Sanchez) Nonhealing nonsurgical wound (Chronic) right forearm and left calf Traumatic open wound of right lower leg (Chronic) Hypothyroidism (Chronic) Monoclonal gammopathies (Chronic) Lupus (Chronic) Hypertension (Chronic) Autoimmune hepatitis (Chronic) Dyslipidemia (Chronic) Allergies/Adverse Reactions: Allergies griseofulvin ultramicrosize [From Priti-PEG (ultramicrosize)] Allergy (Severe, Verified 12/29/17 11:26) RACING HEART AND SEVERE H/A azathioprine [From Imuran] Adverse Reaction (Severe, Verified 12/29/17 11:26) Nausea/Vom/Diarrhea azathioprine sodium [From Imuran] Adverse Reaction (Severe, Verified 12/29/17 11:26) Nausea/Vom/Diarrhea Penicillins Adverse Reaction (Severe, Verified 12/29/17 11:26) Hives Home Medications: Ambulatory Orders Medication Instructions Recorded Aspirin [Aspirin, Baby] 81 mg PO DAILY@0800 06/23/17 Bimatoprost [Lumigan Opthalmic] 1 drop EACH EYE QHS 06/23/17 Brimonidine 0.15% [Alphagan P 1 drop EACH EYE BID 06/23/17 0.15%] Budesonide [Budesonide EC] 3 mg PO DAILY 06/23/17 Grape Seed Extract [Meganatural-Bp] 300 mg PO DAILY 06/23/17 Hydroxychloroquine [Plaquenil] 200 mg PO DAILYCM 06/23/17 Levothyroxine Sodium [Synthroid] 75 mcg PO DAILY 06/23/17 Metoprolol Tartrate [Lopressor 50 mg PO BID 06/23/17 (beta lorie)] Timolol 0.5% [Timoptic] 1 drop EACH EYE DAILY 06/23/17 - Social History SMOKING STATUS:: Never smoker Vital Signs Temp Pulse Resp BP Pulse Ox 99.7 F H 98 18 139/61 H 98 12/31/17 08:30 12/31/17 08:44 12/31/17 08:30 12/31/17 08:44 12/31/17 08:30 Oxygen Flow Rate (L/min) 2 Oxygen Delivery Method Nasal Cannula Weight: 51 kg Body Mass Index (BMI) 22.0 Laboratory Tests Past 24 Hrs 12/31/17 12/31/17 08:15 08:15 WBC 4.4 RBC 4.07 L Hgb 12.0 Hct 37.1 MCV 91.2 MCH 29.5 MCHC 32.3 RDW 15.7 H RDW Differential 52.6 H Plt Count 104 L MPV 10.4 Sodium 136 Potassium 2.9 L Chloride 105 Carbon Dioxide 23.0 Anion Gap 8 BUN 3 L Creatinine 0.68 Estim Creat Clear Calc 37.93 Est GFR (MDRD) Af Amer 108 Est GFR (MDRD) Non-Af 89 BUN/Creatinine Ratio 4.4 L Glucose 143 H Calcium 7.4 L Magnesium 1.8 - Other Studies Radiology: [] reviewed Other Studies: [] Route of nutrition/ use of supplements: [] Nutritional Intake: [] IV Site: [] Daly Catheter: [] - Physical Exam General: Alert, Oriented x3, Cooperative, No apparent distress HEENT: Atraumatic, PERRLA, EOMI, - - R ear canal with mild redness, no vesicles present. TM clear. R external ear with some redness and swelling, tenderness Neck: Supple, No Nodes Lungs: Clear to auscultation, Normal air movement Cardiovascular: Regular rate, Regular Rhythm Abdomen: Bowel Sounds Present, Soft, Non Tender, Non-Distended Extremities: No edema Skin: - - R chest/neck/shoulder/back redness and vesicles IV Site: Peripheral, without redness Musculoskeletal: No Tenderness to Palpation of Joints or Extremities Neurological: Cranial nerves II-XII grossly intact - Assessment/Plan Antibiotics: [] Assessment/Plan: [] Shingles with fever - improving. R ear canal with mild redness, no vesicles present. TM clear. R external ear with some redness and swelling, tenderness; no evidence of [place] Ferro at this point. Continue iv acyclovir. Plan on home on po valtrex. Likely would benefit from killed shingles vaccine as an outpatient. Will follow, thank you.
[2017-12-31] MEDS: Acetaminophen 325 MG Tablet 650 MG PO (14:42)
[2017-12-31] MEDS: Hydroxychloroquine 200 MG Tablet PO (23:39)
[2018-01-01] VITALS (11 sets, daily range): BP systolic 120–131; BP diastolic 56–77; PULSE 76–107; RESP 18; TEMP 36.7–37.4; O2SAT 95–96
[2018-01-01] MEDS: Levothyroxine 75 MCG Tablet PO (05:49)
[2018-01-01 06:43] LABS: Hematocrit 33.5 % (37-47); Hemoglobin 11.2 g/dl (12.0-15.0); Mean Corp Hgb Conc 33.4 g/gl (32-36); Mean Corpuscular Hgb 30.9 pg (27.0-32.0); Mean Corpuscular Volume 92.3 fL (81-99); Mean Platelet Vol. 10.6 fl (6.2-12.0); Platelet Count 121 K/mm3 (150-450); RBC Distribution Width CV 15.4 % (11.6-14.6); RBC Distribution Width SD 50.3 fl (35.1-43.9); Red Blood Count 3.63 M/mm3 (4.2-5.4); White Blood Count 4.7 K/mm3 (4.4-11.0)
[2018-01-01 06:44] LABS: Scan Indicated on CBC? Y/N NO
[2018-01-01 06:57] LABS: Anion Gap 8 (5-15); BUN 3 mg/dL (7-18); BUN/Creat Ratio 5.6 RATIO (10-20); Calcium,Total 7.6 mg/dL (8.5-10.1); Chloride 106 mmol/L (98-107); Creatinine, Serum 0.54 mg/dL (0.55-1.02); EST Glomerular Filtration Rate 117 mL/min (>60); Est Glom Filt Rate - Afr Amer 142 mL/min (>60); Estimated Creatinine Clearance 37.93 ml/min; Glucose 126 mg/dL (74-106); Magnesium 1.7 mg/dL (1.6-2.6); Potassium 3.5 mmol/L (3.5-5.1); Sodium Level 137 mmol/L (136-145)
[2018-01-01] MEDS: Aspirin 81 MG TAB.CHEW PO (08:57)
[2018-01-01] MEDS: Metoprolol Tartrate 50 MG Tablet PO (09:10)
[2018-01-01] MEDS: Budesonide 3 MG CAPSULE.EC 9 MG PO (09:13)
[2018-01-01] MEDS: Enoxaparin 40 MG/0.4 ML Syringe SC (09:14)
--- NOTE | 2018-01-01 10:42 | PCM.PN.ID ---
Patient Problems: Active and Suspected Problems (Last Updated 06/28/17 @ 14:58 by Cecilia Sanchez) Shingles (Acute) Subjective: Feeling better, redness fading, no new vesicles, no fever - Physical Exam General: Alert, Cooperative Lungs: Clear to auscultation, Normal air movement Cardiovascular: Regular rate, Regular Rhythm Abdomen: Soft, Non Tender Skin: - - fading R chest/shoulder/back redness and vesicles Vital Signs Temp Pulse Resp BP Pulse Ox 99.4 F H 89 18 131/61 H 95 01/01/18 09:00 01/01/18 09:10 01/01/18 09:00 01/01/18 09:10 01/01/18 09:00 Oxygen Flow Rate (L/min) 2 Oxygen Delivery Method Room Air Weight: 51 kg Body Mass Index (BMI) 22.0 Intake and Output for Last 24 Hours 12/30/17 12/31/17 01/01/18 23:59 23:59 23:59 Intake Total 2952 / 2952 2973 / 2973 2215 / 2215 Output Total 1880 / 1880 3095 / 3095 2300 / 2300 Balance 1072 / 1072 -122 / -122 -85 / -85 Laboratory Tests Past 24 Hrs 01/01/18 01/01/18 06:16 06:16 WBC 4.7 RBC 3.63 L Hgb 11.2 L Hct 33.5 L MCV 92.3 MCH 30.9 MCHC 33.4 RDW 15.4 H RDW Differential 50.3 H Plt Count 121 L MPV 10.6 Sodium 137 Potassium 3.5 Chloride 106 Carbon Dioxide 23.0 Anion Gap 8 BUN 3 L Creatinine 0.54 L Estim Creat Clear Calc 37.93 Est GFR (MDRD) Af Amer 142 Est GFR (MDRD) Non-Af 117 BUN/Creatinine Ratio 5.6 L Glucose 126 H Calcium 7.6 L Magnesium 1.7 Medical Necessity - Tobacco Use Smoking Status: Never smoker Route of nutrition/ use of supplements: [] Nutritional Intake: [] IV Site: [] Daly Catheter: [] - Assessment/Plan Antibiotics: [] Assessment/Plan: [] Shingles with fever - improving. Will change to po acyclovir with stop date 01/05/18. Likely would benefit from killed shingles vaccine as an outpatient. Will follow
[2018-01-01] MEDS: Acyclovir 800 MG Tablet PO ×3 (12:16→18:35)
--- NOTE | 2018-01-01 18:01 | DCINST_ITS ---
- Discharge Diagnoses Current Active Problems: Current Active and Chronic Problems (Last Updated 06/28/17 @ 14:58 by Cecilia Sanchez) Shingles (Acute) You will use the following diet at home:: No restrictions Your liquids should be the consistency of: Regular/Thin Discharge Activity: Return to Normal Activity Weight Bearing Status: Full weight bearing Allergies/Adverse Reactions: Allergies griseofulvin ultramicrosize [From Priti-PEG (ultramicrosize)] Allergy (Severe, Verified 12/29/17 11:26) RACING HEART AND SEVERE H/A azathioprine [From Imuran] Adverse Reaction (Severe, Verified 12/29/17 11:26) Nausea/Vom/Diarrhea azathioprine sodium [From Imuran] Adverse Reaction (Severe, Verified 12/29/17 11 :26) Nausea/Vom/Diarrhea Penicillins Adverse Reaction (Severe, Verified 12/29/17 11:26) Hives Medications to take at Discharge Aspirin [Aspirin, Baby] 81 mg PO DAILY@0800 06/23/17 Bimatoprost [Lumigan Opthalmic] 1 drop EACH EYE QHS 06/23/17 Brimonidine 0.15% [Alphagan P 0.15%] 1 drop EACH EYE BID 06/23/17 Budesonide [Budesonide EC] 3 mg PO DAILY 06/23/17 Grape Seed Extract [Meganatural-Bp] 300 mg PO DAILY 06/23/17 Hydroxychloroquine [Plaquenil] 200 mg PO DAILYCM 06/23/17 Levothyroxine Sodium [Synthroid] 75 mcg PO DAILY 06/23/17 Metoprolol Tartrate [Lopressor (beta lorie)] 50 mg PO BID 06/23/17 Timolol 0.5% [Timoptic] 1 drop EACH EYE DAILY 06/23/17 Budesonide [Budesonide EC] 9 mg PO DAILY capsule.ec 01/01/18 Valacyclovir HCl [Valtrex] 1,000 mg PO TID #10 tab 01/01/18 The following prescriptions were given: Valacyclovir HCl [Valtrex] 1,000 mg PO TID #10 tab Primary Care Physician: Ashvin Cardenas MD [Primary Care Provider] - Please follow up with your Primary Care Physician in: in 7-10 days
--- NOTE | 2018-01-04 15:37 | CASEMGMT ---
TAM CELESTE Discharge Follow-up Phone Call: ALISON: Alex Strata: 3 Call Date:01/04/18 Discharge Date: 01/01/18 Time of Call: 1535 Duration: 3 min Admitting Diagnosis: Fever TAM CELESTE called and spoke to patient to follow-up after recent hospitalization. Patient states that she still doesn't feel well but is getting there. Patient states that she has no questions or concerns regarding discharge instructions or medications. Patient was able to brain picker prescriptions without any problems. Patient states she has follow-up appt with her PCP scheduled.
--- NOTE | 2018-01-05 16:49 | PCM.DC.SUM ---
Discharge Date and Diagnosis Date of Admission: 12/29/17 Date of Discharge: 01/01/18 - Primary Discharge Diagnosis #1 Acute herpes zoster infection over areas of skin on the right upper chest #2 dehydration #3 hyponatremia secondary to hypovolemic hyponatremia #4 systemic lupus #5 autoimmune hepatitis #6 hypothyroidism - Secondary Discharge Diagnosis Chronic Problems (Last Updated 06/28/17 @ 14:58 by Cecilia Sanchez) Nonhealing nonsurgical wound (Chronic) right forearm and left calf Traumatic open wound of right lower leg (Chronic) Hypothyroidism (Chronic) Monoclonal gammopathies (Chronic) Lupus (Chronic) Hypertension (Chronic) Autoimmune hepatitis (Chronic) Dyslipidemia (Chronic) Hospital Course and Treatment Operations: None Procedures: None Summary of Care Provided: The patient is a 77 year old F them to the emergency room at [facility] with a chief complaint right upper chest discomfort over her skin extending into her right posterior neck area and upper right back. Evaluation in the ER included an EKG which showed normal sinus rhythm at a rate of 105, hemoglobin and platelet counts were 15.1 and 144,000 respectively, sodium was low at 131, troponin was unremarkable, lactate was 2. Semination the patient revealed a rash over the right upper chest area extending into the right posterior neck area and right back this rash was vesicular in nature and felt to be secondary to shingles. Patient's blood pressure was noted to be in the 90s systolic, she was felt to be dehydrated and due to her tachycardia it was recommended by the emergency room physician that the hospitalist service admit the patient for further treatment. Patient was treated with IV acyclovir and IV fluids, labs were monitored, and patient was seen by infectious diseases. Patient had no complications during her hospital stay, on 01/01/18, patient was seen and examined and felt to be in stable condition for discharge home, it was recommended that she get an outpatient shingles vaccine. Discharge Activity: Return to Normal Activity Weight Bearing Status: Full weight bearing Home Medications: Medications to take at Discharge Aspirin [Aspirin, Baby] 81 mg PO DAILY@0800 06/23/17 Bimatoprost [Lumigan Opthalmic] 1 drop EACH EYE QHS 06/23/17 Brimonidine 0.15% [Alphagan P 0.15%] 1 drop EACH EYE BID 06/23/17 Budesonide [Budesonide EC] 3 mg PO DAILY 06/23/17 Grape Seed Extract [Meganatural-Bp] 300 mg PO DAILY 06/23/17 Hydroxychloroquine [Plaquenil] 200 mg PO DAILYCM 06/23/17 Levothyroxine Sodium [Synthroid] 75 mcg PO DAILY 06/23/17 Metoprolol Tartrate [Lopressor (beta lorie)] 50 mg PO BID 06/23/17 Timolol 0.5% [Timoptic] 1 drop EACH EYE DAILY 06/23/17 Budesonide [Budesonide EC] 9 mg PO DAILY capsule.ec 01/01/18 Valacyclovir HCl [Valtrex] 1,000 mg PO TID #10 tab 01/01/18 Following Prescrptions Were Given to Patient: Valacyclovir HCl [Valtrex] 1,000 mg PO TID #10 tab Primary Care Physician: Ashvin Cardenas MD [Primary Care Provider] - Please follow up with your Primary Care Physician in: in 7-10 days Disposition: Home Minutes spent on discharge:: 32 Patient Condition:: Stable Medical Necessity - Tobacco Use Smoking Status: Never smoker Meaningful Use Info Meaningful Use Diagnoses (Choose all that apply): None applicable Code Visit Inpatient E&M: 70008 [facility] Hosp
== END 2018-01-01 19:03 | disposition home or self-care (01) | DRG 596 ==
LOC: ED 15:32 → MS3 15:48
PROVIDERS: Internal Medicine; Admitting Provider Internal Medicine; Emergency Provider Emergency Medicine; Family Provider Family Medicine; PCP Family Medicine; Visit Provider Internal Medicine
DX: B02.9 Zoster without complications (principal); E87.1 Hypo-osmolality and hyponatremia; I51.81 Takotsubo syndrome; E03.9 Hypothyroidism, unspecified; E78.5 Hyperlipidemia, unspecified; K75.4 Autoimmune hepatitis; E86.0 Dehydration; I10 Essential (primary) hypertension; Z79.52 Long term (current) use of systemic steroids; Z79.899 Other long term (current) drug therapy
CPT/HCPCS: 36415; 71045; 71046; 80048; 80053; 81001; 82140; 82550; 82607; 83605; 83735; 84484; 85025; 85027; 85610; 85730; 86140; 87040; 87086; 93005; 97802; 99285; J7030; A4216; J2405

== ENCOUNTER → 2018-04-02 12:19 | Outpatient (CLI) | payer MEDICARE, SELFPAY ==
[2018-04-02 13:44] LABS: Absolute Lymphocyte Count 2.12 X10^3/ul (0.83-4.51); Absolute Neutrophil Count 4.3 X10^3/uL (2.0-7.7); Basophil# 0.02 X10^3/uL; Basophil% 0.3 % (0-1); Eosinophil# 0.13 X10^3/uL; Eosinophils% 1.7 % (0-5); Hematocrit 42.8 % (37-47); Lymphocyte # 2.12 X10^3/ul (4.0); Lymphocyte % 27.7 % (19-41); Mean Corp Hgb Conc 32.7 g/gl (32-36); Mean Corpuscular Hgb 30.5 pg (27.0-32.0); Mean Corpuscular Volume 93.2 fL (81-99); Mean Platelet Vol. 10.7 fl (6.2-12.0); Monocyte# 1.04 X10^3/uL; Monocyte% 13.6 % (0-10); Neutrophil # 4.31 X10^3/uL (2.7-7.7); Neutrophil % 56.3 % (47-70); Platelet Count 173 K/mm3 (150-450); RBC Distribution Width CV 15.5 % (11.6-14.6); RBC Distribution Width SD 51.5 fl (35.1-43.9); Red Blood Count 4.59 M/mm3 (4.2-5.4); White Blood Count 7.7 K/mm3 (4.4-11.0)
[2018-04-02 13:48] LABS: POSITIVE COUNT NO; POSITIVE DIFFERENTIAL NO; POSITIVE MORPHOLOGY NO
[2018-04-02 13:53] LABS: AST(SGOT) 40 U/L (15-37); Alanine Aminotransfer ALT/SGPT 58 U/L (13-56); Albumin, Serum 3.4 g/dL (3.2-5.0); Alkaline Phosphatase 72 U/L (45-117); Bilirubin, Direct 0.19 mg/dL (0.00-0.30); GGTP 42 U/L (5-55); Globulin 5.5 g/dL (2.2-4.2); Protein, Total 8.9 g/dL (6.4-8.2)
== END ==
PROVIDERS: Family Provider Family Medicine; PCP Family Medicine; Visit Provider Internal Medicine Gastroenterology
DX: R79.89 Other specified abnormal findings of blood chemistry (principal)
CPT/HCPCS: 36415; 80076; 82977; 85025

== ENCOUNTER → 2018-05-23 13:17 | Outpatient (CLI) | payer MEDICARE, SELFPAY ==
[2018-05-23 16:00] LABS: AST(SGOT) 32 U/L (15-37); Alanine Aminotransfer ALT/SGPT 47 U/L (13-56); Albumin, Serum 3.4 g/dL (3.2-5.0); Alkaline Phosphatase 84 U/L (45-117); Bilirubin, Direct 0.14 mg/dL (0.00-0.30); Globulin 5.2 g/dL (2.2-4.2); Protein, Total 8.6 g/dL (6.4-8.2)
== END ==
PROVIDERS: Family Provider Family Medicine; PCP Family Medicine; Referring Provider Internal Medicine Gastroenterology; Visit Provider Internal Medicine Gastroenterology
DX: K75.4 Autoimmune hepatitis (principal)
CPT/HCPCS: 36415; 80076

== ENCOUNTER 2018-05-23 15:51 | Emergency (ER) | payer MEDICARE, SELFPAY ==
[2018-05-23 15:53] VITALS: BP 172/68; PULSE 79; RESP 17; TEMP 37.2; O2SAT 97; BMI 21.4
--- NOTE | 2018-05-23 16:08 | ED.DCSUM_ITS ---
- ER Visit Summary Date of Service: 05/23/18 Chief Complaint: Bright red blood per rectum History of Present Illness: The patient is a 78 F presenting with bright red blood per rectum. This started last night. She has had bright red blood with clots mixed with stool since last night. She has had 5-6 episodes. She denies nausea or vomiting. She denies syncope. She has mild abdominal cramping. She denies fever. Denies other complaints. She has history of diverticulitis and hemorrhoids and states this feels different. Physical Examination: Vitals are stable. Patient is afebrile. Alert no acute distress. HEENT exam is unremarkable. Neck is supple. Lungs are clear and equal bilaterally. Heart is regular rate and rhythm. Abdomen is soft nontender nondistended. No guarding or rebound. Rectal: Maroon colored stool Extremities are unremarkable. Skin is warm and dry. No focal neurologic deficit. Remainder of exam is unremarkable. Emergency Department Course and Treatment: Patient given IV fluids. CBC, chemistries unremarkable other than sodium 130. This is near her baseline. INR is 1.0. Stool guaiac is negative. I believe this may be a false negative. Discussed with Dr. Daniels for observation. Disposition: Observation Impression: GI bleed This note was generated with [employer] dictation software. It may contain incorrect words, spelling, and punctuation that were not noted in review of the chart prior to signing ED Disposition - Plan for ED Patient: Chief Complaint: GI Bleed Referrals: Ashvin Cardenas MD [Primary Care Provider] -
[2018-05-23 16:48] LABS: Absolute Lymphocyte Count 3.15 X10^3/ul (0.83-4.51); Absolute Neutrophil Count 5.9 X10^3/uL (2.0-7.7); Basophil# 0.01 X10^3/uL; Basophil% 0.1 % (0-1); Eosinophil# 0.11 X10^3/uL; Eosinophils% 1.1 % (0-5); Hematocrit 40.6 % (37-47); Hemoglobin 13.5 g/dl (12.0-15.0); Lymphocyte # 3.15 X10^3/ul (4.0); Lymphocyte % 30.9 % (19-41); Mean Corp Hgb Conc 33.3 g/gl (32-36); Mean Corpuscular Hgb 31.2 pg (27.0-32.0); Mean Corpuscular Volume 93.8 fL (81-99); Monocyte% 9.8 % (0-10); Neutrophil # 5.89 X10^3/uL (2.7-7.7); Neutrophil % 57.6 % (47-70); Platelet Count 166 K/mm3 (150-450); RBC Distribution Width CV 15.5 % (11.6-14.6); RBC Distribution Width SD 52.7 fl (35.1-43.9); Red Blood Count 4.33 M/mm3 (4.2-5.4); White Blood Count 10.2 K/mm3 (4.4-11.0)
[2018-05-23 16:49] LABS: POSITIVE COUNT NO; POSITIVE DIFFERENTIAL NO; POSITIVE MORPHOLOGY NO
[2018-05-23 16:57] LABS: Anion Gap 8 (5-15); BUN 15 mg/dL (7-18); BUN/Creat Ratio 18.9 RATIO (10-20); Calcium,Total 8.6 mg/dL (8.5-10.1); Chloride 95 mmol/L (98-107); Creatinine, Serum 0.79 mg/dL (0.55-1.02); EST Glomerular Filtration Rate 74 mL/min (>60); Est Glom Filt Rate - Afr Amer 90 mL/min (>60); Estimated Creatinine Clearance 34.11 ml/min; Glucose 83 mg/dL (74-106); Potassium 3.6 mmol/L (3.5-5.1); Prothrombin Time (Protime)PT. 13.3 SECONDS (11.7-14.9); Sodium Level 130 mmol/L (136-145)
--- NOTE | 2018-05-23 17:44 | NURSING ---
210 WHITE GI BLEED
--- NOTE | 2018-05-23 17:45 | PCM.HP.STD ---
Problem List (1) Shingles Status: Resolved (2) Nonhealing nonsurgical wound Status: Resolved Comment: right forearm and left calf (3) Traumatic open wound of right lower leg Status: Resolved Qualifiers: (4) Hypothyroidism Status: Chronic (5) Monoclonal gammopathies Status: Chronic (6) Lupus Status: Chronic (7) Hypertension Status: Chronic (8) Autoimmune hepatitis Status: Chronic (9) C. difficile colitis Status: Acute (10) Generalized weakness Status: Acute (11) Uncontrollable nausea and vomiting Status: Acute Qualifiers: (12) Dyslipidemia Status: Chronic History of Present Illness The patient is a 78 year old F [] Past Medical History Past Medical History (Chronic Problems): Chronic Problems (Last Updated 06/28/17 @ 14:58 by Cecilia Sanchez) Hypothyroidism (Chronic) Monoclonal gammopathies (Chronic) Lupus (Chronic) Hypertension (Chronic) Autoimmune hepatitis (Chronic) Dyslipidemia (Chronic) Medical History: Medical History (Last Updated 06/28/17 @ 14:58 by Cecilia Sanchez) COLONOSCOPY Glaucoma H40.9 Heart disease I51.9 History of left heart catheterization (LHC) Z98.890 Hyperlipidemia E78.5 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 Tachycardia R00.0 Allergies griseofulvin ultramicrosize [From Priti-PEG (ultramicrosize)] Allergy (Severe, Verified 05/23/18 15:53) RACING HEART AND SEVERE H/A azathioprine [From Imuran] Adverse Reaction (Severe, Verified 05/23/18 15:53) Nausea/Vom/Diarrhea azathioprine sodium [From Imuran] Adverse Reaction (Severe, Verified 05/23/18 15:53) Nausea/Vom/Diarrhea Penicillins Adverse Reaction (Severe, Verified 05/23/18 15:53) Hives Home Medications: Ambulatory Orders Medication Instructions Recorded Bimatoprost [Lumigan Opthalmic] 1 drop EACH EYE QHS 06/23/17 Brimonidine 0.15% [Alphagan P 1 drop EACH EYE BID 06/23/17 0.15%] Budesonide [Budesonide EC] 3 mg PO DAILY 06/23/17 Grape Seed Extract [Meganatural-Bp] 300 mg PO DAILY 06/23/17 Hydroxychloroquine [Plaquenil] 200 mg PO DAILYCM 06/23/17 Levothyroxine Sodium [Synthroid] 75 mcg PO DAILY 06/23/17 Timolol 0.5% [Timoptic] 1 drop EACH EYE DAILY 06/23/17 Aspirin E.C. [Ecotrin] 81 mg PO DAILY 05/23/18 Citrucel Fiber PO DAILY 05/23/18 Lactobacillus Combo No.10 1 cap PO DAILY 05/23/18 [Probiotic] Metoprolol Succinate [Toprol Xl] 50 mg PO BID 05/23/18 Nut.tx.impaired Digest Fxn [Ensure 198 ml PO PRN 05/23/18 Clear] Surgical History: Surgical History (Last Updated 06/28/17 @ 14:58 by Cecilia Sanchez) Hx of cholecystectomy Z98.890, Z90.49 Surgical History: cataract, cholecystectomy, - - D+C x 2, BLTL, sinus cyst removal BL. Psychiatric History: No pertinent psych hx [employer] History: No pertinent [employer] history Smoking Status: Never smoker - *Family History Maternal Family History: Family History (Last Updated 06/28/17 @ 14:58 by Cecilia Sanchez) Father Heart disease Mother Heart disease History Items: No pertinent history Paternal Family History: Family History (Last Updated 06/28/17 @ 14:58 by Cecilia Sanchez) Father Heart disease Mother Heart disease History Items: No pertinent history - Physical Exam Vital Signs Temp Pulse Resp BP Pulse Ox 99.0 F 79 17 172/68 H 97 05/23/18 15:53 05/23/18 15:53 05/23/18 15:53 05/23/18 15:53 05/23/18 15:53 Oxygen Delivery Method Room Air Weight: 102 lb 11.767 oz Body Mass Index (BMI) 21.4 Microbiology Past 72 Hours 05/23/18 16:20 Stool Occult Blood (CONNIE) - Final Stool Laboratory Tests Past 24 Hrs 05/23/18 05/23/18 05/23/18 16:28 16:28 16:28 WBC 10.2 RBC 4.33 Hgb 13.5 Hct 40.6 MCV 93.8 MCH 31.2 MCHC 33.3 RDW 15.5 H RDW Differential 52.7 H Plt Count 166 MPV 10.0 Immature Gran % (Auto) 0.500 Neut % (Auto) 57.6 Lymph % (Auto) 30.9 [place] % (Auto) 9.8 Eos % (Auto) 1.1 Baso % (Auto) 0.1 Absolute Neuts (auto) 5.9 Absolute Lymphs (auto) 3.15 Total Counted Not Reportable PT 13.3 INR 1.0 APTT 26.0 Sodium 130 L Potassium 3.6 Chloride 95 L Carbon Dioxide 27.0 Anion Gap 8 BUN 15 Creatinine 0.79 Estim Creat Clear Calc 34.11 Est GFR (MDRD) Af Amer 90 Est GFR (MDRD) Non-Af 74 BUN/Creatinine Ratio 18.9 Glucose 83 Calcium 8.6 Assessment/Plan All Active Problems (Last Updated 06/28/17 @ 14:58 by Cecilia Sanchez) C. difficile colitis (Acute) Generalized weakness (Acute) Uncontrollable nausea and vomiting (Acute) Nonhealing nonsurgical wound (Resolved) Shingles (Resolved) Traumatic open wound of right lower leg (Resolved)
[2018-05-23 17:50] VITALS: BP 159/73; BP 160/59; BP 167/62; PULSE 76; PULSE 78
--- NOTE | 2018-05-23 18:26 | ED.DEP ---
ED Disposition - Plan for ED Patient: Chief Complaint: GI Bleed Instructions: When You Have Gastrointestinal (GI) Bleeding Referrals: Ashvin Cardenas MD [Primary Care Provider] - Sidney Khan MD [STAFF PHYSICIAN] -
[2018-05-23 18:39] VITALS: BP 145/58; PULSE 79; RESP 18; O2SAT 97
== END 2018-05-23 18:52 | disposition home or self-care (01) ==
LOC: ED 16:20 → MS2 18:13 → ED 18:44
PROVIDERS: Emergency Provider Emergency Medicine; Family Provider Family Medicine; PCP Family Medicine
DX: K92.2 Gastrointestinal hemorrhage, unspecified (principal); K75.4 Autoimmune hepatitis; R19.7 Diarrhea, unspecified; I10 Essential (primary) hypertension; Z79.82 Long term (current) use of aspirin; Z79.899 Other long term (current) drug therapy; Z87.19 Personal history of other diseases of the digestive system; Z86.010 Personal history of colon polyps; Z86.73 Personal history of transient ischemic attack (TIA), and cerebral infarction without residual deficits
CPT/HCPCS: 36415; 80048; 80076; 82274; 85025; 85610; 85730; 96360; 99285; J7030; J7040; A4216

== ENCOUNTER 2018-05-24 13:30 | Inpatient (IN) | payer MEDICARE, SELFPAY ==
--- NOTE | 2018-05-24 14:07 | PCM.HP.STD ---
Problem List (1) Hypothyroidism Status: Chronic (2) Monoclonal gammopathies Status: Chronic (3) Lupus Status: Chronic (4) Hypertension Status: Chronic (5) Autoimmune hepatitis Status: Chronic (6) C. difficile colitis Status: Resolved History of Present Illness Date of Admission: 05/24/18 Chief Complaint: GI bleed. The patient is a 78 year old F who presents with blood per rectum. Patient reports multiple blood clots in stool. Patient initially presented to ER yesterday, 05/23/2018. Her hemoglobin was stable and outpatient arrangements were made with Dr. Khan. Patient reported to have continued clots in stool and was referred by Dr. Khan for admission for scope. Patient is asymptomatic. Denies dizziness, lightheadedness, shortness of breath, chest pain. She has a remote history of AVM. Her other past medical history includes hypothyroidism, autoimmune hepatitis, lupus, hypertension. 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 Tachycardia R00.0 Allergies griseofulvin ultramicrosize [From Priti-PEG (ultramicrosize)] Allergy (Severe, Verified 05/24/18 12:45) RACING HEART AND SEVERE H/A azathioprine [From Imuran] Adverse Reaction (Severe, Verified 05/24/18 12:45) Nausea/Vom/Diarrhea azathioprine sodium [From Imuran] Adverse Reaction (Severe, Verified 05/24/18 12:45) Nausea/Vom/Diarrhea Penicillins Adverse Reaction (Severe, Verified 05/24/18 12:45) Hives Home Medications: Ambulatory Orders Medication Instructions Recorded Bimatoprost [Lumigan Opthalmic] 1 drp EACH EYE QHS 06/23/17 Brimonidine 0.15% [Alphagan P 1 drp EACH EYE BID 06/23/17 0.15%] Budesonide [Budesonide EC] 3 mg PO DAILY 12/09/17 Grape Seed Extract [Meganatural-Bp] 300 mg PO DAILY 06/23/17 Hydroxychloroquine [Plaquenil] 200 mg PO DAILYCM 06/23/17 Levothyroxine Sodium [Synthroid] 75 mcg PO DAILY 06/23/17 Timolol 0.5% [Timoptic] 1 drp EACH EYE DAILY 06/23/17 Aspirin E.C. [Ecotrin] 81 mg PO DAILY 05/23/18 Citrucel Fiber PO DAILY 05/23/18 Lactobacillus Combo No.10 1 cap PO DAILY 05/23/18 [Probiotic] Metoprolol Succinate [Toprol Xl] 50 mg PO BID 05/23/18 Nut.tx.impaired Digest Fxn [Ensure 198 ml PO PRN 05/23/18 Clear] Surgical History: Surgical History (Last Reviewed 05/24/18 @ 12:44 by Zoë Quiroz) H/O cataract extraction Z98.49 H/O tubal ligation Z98.51 Hx of cholecystectomy Z98.890, Z90.49 h/o mass removed from hip Surgical History: cataract, cholecystectomy, - - D+C x 2, BLTL, sinus cyst removal BL. Psychiatric History: No pertinent psych hx HOST/HOSTESS History: No pertinent HOST/HOSTESS history Lives: Spouse/ Significant Other Smoking Status: Never smoker Alcohol: None Drugs: None - *Family History Maternal Family History: Family History (Last Reviewed 05/24/18 @ 14:16 by VADIM Fish) Father Heart disease Mother Heart disease Paternal Family History: Family History (Last Reviewed 05/24/18 @ 14:16 by VADIM Fish) Father Heart disease Mother Heart disease Review of Systems Constitutional: Denies: Chills, Fever, Weight Change HEENT: Denies: Head Aches, Sinus Congestion, Sinus Drainage Cardiovascular: Denies: Chest Pain, Light Headedness, Palpitations, Syncope Respiratory: Denies: Cough, Shortness of breath at rest, Sputum production Gastrointestinal: Reports: Hematochezia, - - Maroon colored stools with clots. Denies: Abdominal Pain, Nausea, Vomiting Genitourinary: Denies: Dysuria Musculoskeletal: Denies: Joint Pain, Joint Tenderness Skin: Denies: Rash, Wounds Neurological: Denies: Numbness, Tingling, Focal weakness Psychiatric: Denies: Anxiety, Depression, Homicidal Ideations, Suicidal Ideations Hematologic/ Lymphatic: Denies: Easy Bruising, Easy Bleeding VTE Information - Inpt Only VTE Present on Admission: No VTE Mechan Device Prophylaxis: SCD's VTE Pharm Prophylaxis ordered?: No Reason prophylaxis not ordered:: Medical Contraindication - Physical Exam General: Alert, Oriented x3, Cooperative, No apparent distress HEENT: Atraumatic, PERRLA, EOMI, Normocephalic Neck: Supple, No JVD, Negative Carotid Bruits Lungs: Clear to auscultation, Normal air movement Cardiovascular: Regular rate, Regular Rhythm, Normal S1, Normal S2, No murmurs Abdomen: Bowel Sounds Present, Soft, Non Tender, Non-Distended Extremities: No clubbing, No cyanosis, No edema, Capillary Refill Less than 3 Seconds Skin: No rashes, No breakdown Musculoskeletal: No Tenderness to Palpation of Joints or Extremities Neurological: Cranial nerves II-XII grossly intact, Neuro grossly intact Psych/Mental Status: Normal Affect, Appropriate Assessment/Plan All Active Problems (Last Reviewed 05/24/18 @ 12:44 by Zoë Quiroz) C. difficile colitis (Resolved) Nonhealing nonsurgical wound (Resolved) Shingles (Resolved) Traumatic open wound of right lower leg (Resolved) 1. GI bleed- Dr. Khan consulted. Plan for colonoscopy tomorrow. Currently hemodynamically stable. Serial H&H. IV PPI. Hold aspirin. Patient reportedly has a history of AVM on the right. NPO. 2. Autoimmune hepatitis/lupus-continue home Plaquenil, budesonide regimen. 3. Hypertension-stable, continue home metoprolol regimen. 4. Hypothyroidism-continue Synthroid regimen. DVT prophylaxis-SCDs, pharmacologic prophylaxis contraindicated due to #1. This patient was seen by VADIM Fish under the supervision of Dr. Daniels.
[2018-05-24 14:24] LABS: Absolute Lymphocyte Count 2.72 X10^3/ul (0.83-4.51); Absolute Neutrophil Count 4.8 X10^3/uL (2.0-7.7); Basophil# 0.03 X10^3/uL; Basophil% 0.4 % (0-1); Eosinophil# 0.08 X10^3/uL; Eosinophils% 0.9 % (0-5); Hemoglobin 11.9 g/dl (12.0-15.0); Lymphocyte # 2.72 X10^3/ul (4.0); Mean Corp Hgb Conc 32.2 g/gl (32-36); Mean Corpuscular Hgb 30.1 pg (27.0-32.0); Mean Corpuscular Volume 93.7 fL (81-99); Mean Platelet Vol. 9.8 fl (6.2-12.0); Monocyte# 0.86 X10^3/uL; Monocyte% 10.1 % (0-10); Neutrophil # 4.78 X10^3/uL (2.7-7.7); Neutrophil % 56.1 % (47-70); Platelet Count 161 K/mm3 (150-450); RBC Distribution Width CV 15.7 % (11.6-14.6); RBC Distribution Width SD 53.8 fl (35.1-43.9); Red Blood Count 3.95 M/mm3 (4.2-5.4); White Blood Count 8.5 K/mm3 (4.4-11.0)
[2018-05-24 14:27] VITALS: BP 133/53; PULSE 75; RESP 16; TEMP 36.5; O2SAT 100; BMI 21.2
[2018-05-24 14:27] LABS: POSITIVE COUNT NO; POSITIVE DIFFERENTIAL NO; POSITIVE MORPHOLOGY NO
[2018-05-24 14:34] LABS: Anion Gap 8 (5-15); BUN 11 mg/dL (7-18); BUN/Creat Ratio 15.1 RATIO (10-20); Calcium,Total 8.1 mg/dL (8.5-10.1); Chloride 95 mmol/L (98-107); Creatinine, Serum 0.73 mg/dL (0.55-1.02); EST Glomerular Filtration Rate 82 mL/min (>60); Est Glom Filt Rate - Afr Amer 99 mL/min (>60); Estimated Creatinine Clearance 33.67 ml/min; Glucose 85 mg/dL (74-106); Magnesium 1.9 mg/dL (1.6-2.6); Potassium 3.6 mmol/L (3.5-5.1); Sodium Level 129 mmol/L (136-145)
[2018-05-24] MEDS: 0.9% Normal Saline 1,000 ML 100 ML IV (15:45)
[2018-05-24] MEDS: Electrolyte Solution/Peg's 4000 ML PO (15:46)
[2018-05-24] MEDS: 0.9% NaCl Peripheral Flush Adult/Peds IV ×2 (15:46→18:36)
[2018-05-24 15:54] VITALS: BMI 21.2
[2018-05-24 15:55] VITALS: PULSE 78
[2018-05-24] MEDS: Ondansetron 4 MG/2 ML Vial IV (16:14)
--- NOTE | 2018-05-24 16:59 | PCM.PN.BLA ---
Progress Note Outpt office evaluation will service as consult Plan Colonoscopy in early a.m. Thank youKavya
[2018-05-24 18:30] LABS: Hematocrit 32.7 % (37-47); Hemoglobin 10.7 g/dl (12.0-15.0)
[2018-05-24] MEDS: proMETHazine 25 MG/ML Syringe 12.5 MG IV (18:36)
[2018-05-24 18:47] VITALS: BP 151/77; PULSE 79; RESP 16; TEMP 37.3; O2SAT 100
[2018-05-24 19:22] VITALS: PULSE 79
[2018-05-24 21:48] VITALS: BP 113/57; PULSE 83; RESP 16; TEMP 36.6; O2SAT 97
[2018-05-24 22:35] VITALS: BP 113/57; PULSE 83
[2018-05-24] MEDS: Metoprolol(XL)Succ 50 MG Tablet PO (22:35)
[2018-05-24] MEDS: Menthol/Lanolin/Calamine/Znox 113 GM Tube 1 APPLIC TOPICAL (23:52)
[2018-05-25] VITALS (13 sets, daily range): BP systolic 112–130; BP diastolic 46–56; PULSE 82–96; RESP 16–18; TEMP 36.4–37.3; O2SAT 94–100
[2018-05-25] MEDS: 0.9% NaCl Peripheral Flush Adult/Peds IV (00:17)
[2018-05-25] MEDS: Ondansetron 4 MG/2 ML Vial IV (00:17)
[2018-05-25 00:29] LABS: Hemoglobin 10.8 g/dl (12.0-15.0)
[2018-05-25] MEDS: 0.9% Normal Saline 1,000 ML 100 ML IV ×2 (02:04→13:53)
--- NOTE | 2018-05-25 04:30 | EKG12_ITS ---
Test Reason : PRE OP Blood Pressure : / mmHG Vent. 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
[2018-05-25 04:33] LABS: Absolute Lymphocyte Count 1.65 X10^3/ul (0.83-4.51); Basophil# 0.02 X10^3/uL; Basophil% 0.4 % (0-1); Eosinophil# 0.09 X10^3/uL; Eosinophils% 1.7 % (0-5); Hematocrit 28.7 % (37-47); Hemoglobin 9.5 g/dl (12.0-15.0); Lymphocyte # 1.65 X10^3/ul (4.0); Lymphocyte % 30.6 % (19-41); Mean Corp Hgb Conc 33.1 g/gl (32-36); Mean Corpuscular Hgb 31.1 pg (27.0-32.0); Mean Corpuscular Volume 94.1 fL (81-99); Mean Platelet Vol. 9.7 fl (6.2-12.0); Monocyte# 0.62 X10^3/uL; Monocyte% 11.5 % (0-10); Neutrophil # 2.98 X10^3/uL (2.7-7.7); Neutrophil % 55.2 % (47-70); Platelet Count 124 K/mm3 (150-450); RBC Distribution Width CV 15.4 % (11.6-14.6); RBC Distribution Width SD 51.3 fl (35.1-43.9); Red Blood Count 3.05 M/mm3 (4.2-5.4); White Blood Count 5.4 K/mm3 (4.4-11.0)
[2018-05-25 04:34] LABS: POSITIVE COUNT NO; POSITIVE DIFFERENTIAL NO; POSITIVE MORPHOLOGY NO
[2018-05-25 04:36] LABS: International Normalized Ratio 1.1; Prothrombin Time (Protime)PT. 14.4 SECONDS (11.7-14.9)
[2018-05-25 04:37] LABS: Partial Thromboplast Time 28.3 Seconds (24.1-36.2)
[2018-05-25 04:44] LABS: Anion Gap 9 (5-15); BUN 7 mg/dL (7-18); BUN/Creat Ratio 10.8 RATIO (10-20); Calcium,Total 7.3 mg/dL (8.5-10.1); Chloride 106 mmol/L (98-107); Creatinine, Serum 0.65 mg/dL (0.55-1.02); EST Glomerular Filtration Rate 94 mL/min (>60); Est Glom Filt Rate - Afr Amer 113 mL/min (>60); Estimated Creatinine Clearance 33.67 ml/min; Glucose 75 mg/dL (74-106); Potassium 3.7 mmol/L (3.5-5.1); Sodium Level 138 mmol/L (136-145)
[2018-05-25 04:55] LABS: AST(SGOT) 28 U/L (15-37); Alanine Aminotransfer ALT/SGPT 39 U/L (13-56); Albumin, Serum 2.4 g/dL (3.2-5.0); Alkaline Phosphatase 53 U/L (45-117); Bilirubin, Direct 0.18 mg/dL (0.00-0.30); Globulin 3.8 g/dL (2.2-4.2); Protein, Total 6.2 g/dL (6.4-8.2); Thyroid Stim Hormone (TSH) 3.24 uIU/mL (0.358-3.74)
--- NOTE | 2018-05-25 06:05 | NURSING ---
pt left floor with endo staff. family at bedside
--- NOTE | 2018-05-25 06:58 | OP.ENDO_ITS ---
Patient Name: Pamela Espinoza Procedure Date: 05/25/2018 5:46 AM Date of : 1940 Age: 78 Procedure: Colonoscopy Indications: Rectal bleeding Providers: Sidney Khan MD Medicines: See the Anesthesia note for documentation of the administered medications Patient Profile: Last Colonoscopy: 3 years ago. Complications: No immediate complications. Procedure: Pre-Anesthesia Assessment: - Prior to the procedure, a History and Physical was performed, and patient medications and allergies were reviewed. The patient's tolerance of previous anesthesia was also reviewed. The risks and benefits of the procedure and the sedation options and risks were discussed with the patient. All questions were answered, and informed consent was obtained. Prior Anticoagulants: The patient has taken aspirin, last dose was 1 day prior to procedure. ASA Grade Assessment: III - A patient with severe systemic disease. After reviewing the risks and benefits, the patient was deemed in satisfactory condition to undergo the procedure. After I obtained informed consent, the scope was passed under direct vision. Throughout the procedure, the patient's blood pressure, pulse, and oxygen saturations were monitored continuously. The Colonoscope was introduced through the anus and advanced to the cecum, identified by appendiceal orifice and ileocecal valve. The colonoscopy was performed without difficulty. The patient tolerated the procedure well. The quality of the bowel preparation was adequate to identify polyps 6 mm and larger in size. The ileocecal valve was photographed. Scope In: 6:29:04 AM Scope Withdrawal Time 0 hours 13 minutes 18 seconds Scope Out: 6:49:06 AM Total Procedure Duration Time 0 hours 20 minutes 2 seconds Findings: The digital rectal exam findings include non-thrombosed external hemorrhoids, non-thrombosed internal hemorrhoids and internal hemorrhoids that prolapse with straining, but require manual replacement into the anal canal (Grade III). Multiple medium-sized localized angioectasias with bleeding were found in the cecum. Multiple diverticula were found in the entire colon. Impression: - Non-thrombosed external hemorrhoids, non-thrombosed internal hemorrhoids and internal hemorrhoids that prolapse with straining, but require manual replacement into the anal canal (Grade III) found on digital rectal exam. - Multiple bleeding colonic angioectasias of the cecum/proximal ascending colon - Diverticulosis in the entire examined colon. Suspected bleeding diverticulum at 25cm from the anus - No specimens collected. Recommendation: - NPO. - Continue present medications. - Repeat colonoscopy at tertiary [facility] for retreatment. Procedure Code(s): --- Professional --- 66721, Colonoscopy, flexible; diagnostic, including collection of specimen(s) by brushing or washing, when performed (separate procedure) Diagnosis Code(s): --- Professional --- K64.2, Third degree hemorrhoids K64.4, Residual hemorrhoidal skin tags K55.21, Angiodysplasia of colon with hemorrhage K62.5, Hemorrhage of anus and rectum K57.30, Diverticulosis of large intestine without perforation or abscess without bleeding CPT copyright 2017 [employer]. All rights reserved. The codes documented in this report are preliminary and upon insurance analyst review may be revised to meet current compliance requirements. Sidney Khan MD 05/25/2018 6:57:37 AM This report has been signed electronically. Number of Addenda: 0 Note Initiated On: 05/25/2018 5:46 AM
[2018-05-25] MEDS: Levothyroxine 75 MCG Tablet PO (10:15)
[2018-05-25] MEDS: Menthol/Lanolin/Calamine/Znox 113 GM Tube 1 APPLIC TOPICAL (10:17)
[2018-05-25] MEDS: Metoprolol(XL)Succ 50 MG Tablet PO (10:18)
--- NOTE | 2018-05-25 10:46 | PCM.DC.SUM ---
Discharge Date and Diagnosis - Problem List Patient Problems: Active and Suspected Problems (Last Reviewed 05/24/18 @ 12:44 by Zoë Quiroz) Acute blood loss anemia (Acute) Rectal bleeding (Acute) Date of Admission: 05/24/18 Date of Discharge: 05/25/18 - Secondary Discharge Diagnosis Chronic Problems (Last Reviewed 05/24/18 @ 12:44 by Zoë Quiroz) Hypothyroidism (Chronic) Monoclonal gammopathies (Chronic) Lupus (Chronic) Hypertension (Chronic) Autoimmune hepatitis (Chronic) Hospital Course and Treatment Sidney Khan MD--general surgery. Operations: None Procedures: Colonoscopy Summary of Care Provided: The patient is a 78 year old F is with GI bleed. 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 Patient states that she has had intermittent bouts but self remitting at times. But this time patient had more persistent bleed. Patient underwent a colonoscopy today that showed bleeding from her AVMs in the cecum but also some diverticular bleeding. Dr. Khan, a general surgery, recommended transfer to tertiary facility for more definitive management. After discussion with patient and family they eventually wanted to the patient to have aggressive measures and to go to [facility]. Spoke with the transfer line [facility] and patient was accepted by Dr. Calhoun. I did explain to the patient that it may be more conservative measures rather surgery but they will make further determinations at [facility] surgery or other endoscopic cauterization etc. may be necessary. Patient did have acute blood loss anemia with initial hemoglobin 11.9 and no indication for transfusion at this time. [] Patient Problems: Active and Suspected Problems (Last Reviewed 05/24/18 @ 12:44 by Zoë Quiroz) Acute blood loss anemia (Acute) Rectal bleeding (Acute) - Physical Exam General: Alert, Cooperative, No apparent distress HEENT: Atraumatic, Normocephalic Oral: Moist Mucosa, No Gingival or Mucosal Lesions/ Ulcerations Neck: No Nodes, Thyroid Normal Size and Texture Lungs: Clear to auscultation, Normal air movement, No rhonchi, No wheeze Cardiovascular: Regular rate, Regular Rhythm, Normal S1, Normal S2, No murmurs Abdomen: Bowel Sounds Present, Soft, Non-Distended, Tender Extremities: No edema, No Calf Tenderness Vital Signs Temp Pulse Resp BP Pulse Ox 37.3 C 90 18 127/53 H 96 05/25/18 07:30 05/25/18 10:18 05/25/18 07:30 05/25/18 07:30 05/25/18 07:30 Oxygen Delivery Method Room Air Weight: 46 kg Body Mass Index (BMI) 21.2 Intake and Output for Last 24 Hours 05/23/18 05/24/18 05/25/18 23:59 23:59 23:59 Intake Total 3942 / 3942 1092 / 1092 Output Total 500 / 500 Balance 3442 / 3442 1092 / 1092 Laboratory Tests Past 24 Hrs 05/24/18 05/24/18 05/24/18 14:00 14:00 14:00 WBC 8.5 RBC 3.95 L Hgb 11.9 L Hct 37.0 MCV 93.7 MCH 30.1 MCHC 32.2 RDW 15.7 H RDW Differential 53.8 H Plt Count 161 MPV 9.8 Immature Gran % (Auto) 0.500 Neut % (Auto) 56.1 Lymph % (Auto) 32.0 [place] % (Auto) 10.1 H Eos % (Auto) 0.9 Baso % (Auto) 0.4 Absolute Neuts (auto) 4.8 Absolute Lymphs (auto) 2.72 Total Counted Not Reportable PT INR APTT Sodium 129 L Potassium 3.6 Chloride 95 L Carbon Dioxide 26.0 Anion Gap 8 BUN 11 Creatinine 0.73 Estim Creat Clear Calc 33.67 Est GFR (MDRD) Af Amer 99 Est GFR (MDRD) Non-Af 82 BUN/Creatinine Ratio 15.1 Glucose 85 Calcium 8.1 L Magnesium 1.9 Total Bilirubin Direct Bilirubin AST ALT Alkaline Phosphatase Total Protein Albumin Globulin TSH Blood Type O POSITIVE Antibody Screen NEGATIVE 05/24/18 05/25/18 05/25/18 18:04 00:15 04:10 WBC 5.4 RBC 3.05 L Hgb 10.7 L 10.8 L 9.5 L Hct 32.7 L 32.0 L 28.7 L MCV 94.1 MCH 31.1 MCHC 33.1 RDW 15.4 H RDW Differential 51.3 H Plt Count 124 L MPV 9.7 Immature Gran % (Auto) 0.600 Neut % (Auto) 55.2 Lymph % (Auto) 30.6 [place] % (Auto) 11.5 H Eos % (Auto) 1.7 Baso % (Auto) 0.4 Absolute Neuts (auto) 3.0 Absolute Lymphs (auto) 1.65 Total Counted Not Reportable PT INR APTT Sodium Potassium Chloride Carbon Dioxide Anion Gap BUN Creatinine Estim Creat Clear Calc Est GFR (MDRD) Af Amer Est GFR (MDRD) Non-Af BUN/Creatinine Ratio Glucose Calcium Magnesium Total Bilirubin Direct Bilirubin AST ALT Alkaline Phosphatase Total Protein Albumin Globulin TSH Blood Type Antibody Screen 05/25/18 05/25/18 05/25/18 04:10 04:10 04:10 WBC RBC Hgb Hct MCV MCH MCHC RDW RDW Differential Plt Count MPV Immature Gran % (Auto) Neut % (Auto) Lymph % (Auto) [place] % (Auto) Eos % (Auto) Baso % (Auto) Absolute Neuts (auto) Absolute Lymphs (auto) Total Counted PT 14.4 INR 1.1 APTT 28.3 Sodium 138 Potassium 3.7 Chloride 106 Carbon Dioxide 23.0 Anion Gap 9 BUN 7 Creatinine 0.65 Estim Creat Clear Calc 33.67 Est GFR (MDRD) Af Amer 113 Est GFR (MDRD) Non-Af 94 BUN/Creatinine Ratio 10.8 Glucose 75 Calcium 7.3 L Magnesium Total Bilirubin 0.80 Direct Bilirubin 0.18 AST 28 ALT 39 Alkaline Phosphatase 53 Total Protein 6.2 L Albumin 2.4 L Globulin 3.8 TSH 3.24 Blood Type Antibody Screen Discharge Diet: - - NPO Discharge Activity: Return to Normal Activity Home Medications: Medications to take at Discharge Bimatoprost [Lumigan Opthalmic] 1 drp EACH EYE QHS 06/23/17 Brimonidine 0.15% [Alphagan P 0.15%] 1 drp EACH EYE BID 06/23/17 Budesonide [Budesonide EC] 3 mg PO DAILY 06/23/17 Grape Seed Extract [Meganatural-Bp] 300 mg PO DAILY PRN 06/23/17 Hydroxychloroquine [Plaquenil] 200 mg PO DAILYCM 06/23/17 Levothyroxine Sodium [Synthroid] 75 mcg PO DAILY 06/23/17 Timolol 0.5% [Timoptic] 1 drp EACH EYE DAILY 06/23/17 Aspirin E.C. [Ecotrin] 81 mg PO DAILY 05/23/18 Citrucel Fiber 1 tab PO DAILY 05/23/18 Lactobacillus Combo No.10 [Probiotic] 1 cap PO DAILY PRN 05/23/18 Metoprolol Succinate [Toprol Xl] 50 mg PO BID 05/23/18 Nut.tx.impaired Digest Fxn [Ensure Clear] 198 ml PO PRN 05/23/18 Primary Care Physician: Ashvin Cardenas MD [Primary Care Provider] - Disposition: Acute care Hospital Minutes spent on discharge:: 40 Patient Condition:: Stable Medical Necessity - Tobacco Use Smoking Status: Never smoker Meaningful Use Info Meaningful Use Diagnoses (Choose all that apply): None applicable Code Visit Inpatient E&M: 37273 Disch Hosp
--- NOTE | 2018-05-25 10:50 | DS.PCM_ITS ---
Discharge Date and Diagnosis - Problem List Patient Problems: Active and Suspected Problems (Last Reviewed 05/24/18 @ 12:44 by Zoë Quiroz) Acute blood loss anemia (Acute) Rectal bleeding (Acute) Date of Admission: 05/24/18 Date of Discharge: 05/25/18 - Secondary Discharge Diagnosis Chronic Problems (Last Reviewed 05/24/18 @ 12:44 by Zoë Quiroz) Hypothyroidism (Chronic) Monoclonal gammopathies (Chronic) Lupus (Chronic) Hypertension (Chronic) Autoimmune hepatitis (Chronic) Hospital Course and Treatment Sidney Khan MD--general surgery. Operations: None Procedures: Colonoscopy Summary of Care Provided: The patient is a 78 year old F is with GI bleed. 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 Patient states that she has had intermittent bouts but self remitting at times. But this time patient had more persistent bleed. Patient underwent a colonoscopy today that showed bleeding from her AVMs in the cecum but also some diverticular bleeding. Dr. Khan, a general surgery, recommended transfer to tertiary facility for more definitive management. After discussion with patient and family they eventually wanted to the patient to have aggressive measures and to go to [facility]. Spoke with the transfer line [facility] and patient was accepted by Dr. Calhoun. I did explain to the patient that it may be more conservative measures rather surgery but they will make further determinations at [facility] surgery or other endoscopic cauterization etc. may be necessary. Patient did have acute blood loss anemia with initial hemoglobin 11.9 and no in dication for transfusion at this time. [] Patient Problems: Active and Suspected Problems (Last Reviewed 05/24/18 @ 12:44 by Zoë Quiroz) Acute blood loss anemia (Acute) Rectal bleeding (Acute) - Physical Exam General: Alert, Cooperative, No apparent distress HEENT: Atraumatic, Normocephalic Oral: Moist Mucosa, No Gingival or Mucosal Lesions/ Ulcerations Neck: No Nodes, Thyroid Normal Size and Texture Lungs: Clear to auscultation, Normal air movement, No rhonchi, No wheeze Cardiovascular: Regular rate, Regular Rhythm, Normal S1, Normal S2, No murmurs Abdomen: Bowel Sounds Present, Soft, Non-Distended, Tender Extremities: No edema, No Calf Tenderness Vital Signs Temp Pulse Resp BP Pulse Ox 37.3 C 90 18 127/53 H 96 05/25/18 07:30 05/25/18 10:18 05/25/18 07:30 05/25/18 07:30 05/25/18 07:30 Oxygen Delivery Method Room Air Weight: 46 kg Body Mass Index (BMI) 21.2 Intake and Output for Last 24 Hours 05/23/18 05/24/18 05/25/18 23:59 23:59 23:59 Intake Total 3942 / 3942 1092 / 1092 Output Total 500 / 500 Balance 3442 / 3442 1092 / 1092 Laboratory Tests Past 24 Hrs 05/24/18 05/24/18 05/24/18 14:00 14:00 14:00 WBC 8.5 RBC 3.95 L Hgb 11.9 L Hct 37.0 MCV 93.7 MCH 30.1 MCHC 32.2 RDW 15.7 H RDW Differential 53.8 H Plt Count 161 MPV 9.8 Immature Gran % (Auto) 0.500 Neut % (Auto) 56.1 Lymph % (Auto) 32.0 [place] % (Auto) 10.1 H Eos % (Auto) 0.9 Baso % (Auto) 0.4 Absolute Neuts (auto) 4.8 Absolute Lymphs (auto) 2.72 Total Counted Not Reportable PT INR APTT Sodium 129 L Potassium 3.6 Chloride 95 L Carbon Dioxide 26.0 Anion Gap 8 BUN 11 Creatinine 0.73 Estim Creat Clear Calc 33.67 Est GFR (MDRD) Af Amer 99 Est GFR (MDRD) Non-Af 82 BUN/Creatinine Ratio 15.1 Glucose 85 Calcium 8.1 L Magnesium 1.9 Total Bilirubin Direct Bilirubin AST ALT Alkaline Phosphatase Total Protein Albumin Globulin TSH Blood Type O POSITIVE Antibody Screen NEGATIVE 05/24/18 05/25/18 05/25/18 18:04 00:15 04:10 WBC 5.4 RBC 3.05 L Hgb 10.7 L 10.8 L 9.5 L Hct 32.7 L 32.0 L 28.7 L MCV 94.1 MCH 31.1 MCHC 33.1 RDW 15.4 H RDW Differential 51.3 H Plt Count 124 L MPV 9.7 Immature Gran % (Auto) 0.600 Neut % (Auto) 55.2 Lymph % (Auto) 30.6 [place] % (Auto) 11.5 H Eos % (Auto) 1.7 Baso % (Auto) 0.4 Absolute Neuts (auto) 3.0 Absolute Lymphs (auto) 1.65 Total Counted Not Reportable PT INR APTT Sodium Potassium Chloride Carbon Dioxide Anion Gap BUN Creatinine Estim Creat Clear Calc Est GFR (MDRD) Af Amer Est GFR (MDRD) Non-Af BUN/Creatinine Ratio Glucose Calcium Magnesium Total Bilirubin Direct Bilirubin AST ALT Alkaline Phosphatase Total Protein Albumin Globulin TSH Blood Type Antibody Screen 05/25/18 05/25/18 05/25/18 04:10 04:10 04:10 WBC RBC Hgb Hct MCV MCH MCHC RDW RDW Differential Plt Count MPV Immature Gran % (Auto) Neut % (Auto) Lymph % (Auto) [place] % (Auto) Eos % (Auto) Baso % (Auto) Absolute Neuts (auto) Absolute Lymphs (auto) Total Counted PT 14.4 INR 1.1 APTT 28.3 Sodium 138 Potassium 3.7 Chloride 106 Carbon Dioxide 23.0 Anion Gap 9 BUN 7 Creatinine 0.65 Estim Creat Clear Calc 33.67 Est GFR (MDRD) Af Amer 113 Est GFR (MDRD) Non-Af 94 BUN/Creatinine Ratio 10.8 Glucose 75 Calcium 7.3 L Magnesium Total Bilirubin 0.80 Direct Bilirubin 0.18 AST 28 ALT 39 Alkaline Phosphatase 53 Total Protein 6.2 L Albumin 2.4 L Globulin 3.8 TSH 3.24 Blood Type Antibody Screen Discharge Diet: - - NPO Discharge Activity: Return to Normal Activity Home Medications: Medications to take at Discharge Bimatoprost [Lumigan Opthalmic] 1 drp EACH EYE QHS 06/23/17 Brimonidine 0.15% [Alphagan P 0.15%] 1 drp EACH EYE BID 06/23/17 Budesonide [Budesonide EC] 3 mg PO DAILY 06/23/17 Grape Seed Extract [Meganatural-Bp] 300 mg PO DAILY PRN 06/23/17 Hydroxychloroquine [Plaquenil] 200 mg PO DAILYCM 06/23/17 Levothyroxine Sodium [Synthroid] 75 mcg PO DAILY 06/23/17 Timolol 0.5% [Timoptic] 1 drp EACH EYE DAILY 06/23/17 Aspirin E.C. [Ecotrin] 81 mg PO DAILY 05/23/18 Citrucel Fiber 1 tab PO DAILY 05/23/18 Lactobacillus Combo No.10 [Probiotic] 1 cap PO DAILY PRN 05/23/18 Metoprolol Succinate [Toprol Xl] 50 mg PO BID 05/23/18 Nut.tx.impaired Digest Fxn [Ensure Clear] 198 ml PO PRN 05/23/18 Primary Care Physician: Ashvin Cardenas MD [Primary Care Provider] - Disposition: Acute care Hospital Minutes spent on discharge:: 40 Patient Condition:: Stable Medical Necessity - Tobacco Use Smoking Status: Never smoker Meaningful Use Info Meaningful Use Diagnoses (Choose all that apply): None applicable Code Visit Inpatient E&M: 82290 Disch Hosp
[2018-05-25 11:53] LABS: Absolute Lymphocyte Count 1.42 X10^3/ul (0.83-4.51); Absolute Neutrophil Count 5.5 X10^3/uL (2.0-7.7); Basophil# 0.01 X10^3/uL; Basophil% 0.1 % (0-1); Eosinophil# 0.09 X10^3/uL; Eosinophils% 1.2 % (0-5); Hematocrit 28.8 % (37-47); Hemoglobin 9.4 g/dl (12.0-15.0); Lymphocyte # 1.42 X10^3/ul (4.0); Lymphocyte % 18.6 % (19-41); Mean Corp Hgb Conc 32.6 g/gl (32-36); Mean Corpuscular Hgb 30.7 pg (27.0-32.0); Mean Corpuscular Volume 94.1 fL (81-99); Mean Platelet Vol. 8.9 fl (6.2-12.0); Monocyte# 0.62 X10^3/uL; Monocyte% 8.1 % (0-10); Neutrophil # 5.49 X10^3/uL (2.7-7.7); Neutrophil % 71.7 % (47-70); POSITIVE COUNT NO; POSITIVE DIFFERENTIAL NO; POSITIVE MORPHOLOGY NO; Platelet Count 113 K/mm3 (150-450); RBC Distribution Width CV 15.8 % (11.6-14.6); RBC Distribution Width SD 54.1 fl (35.1-43.9); Red Blood Count 3.06 M/mm3 (4.2-5.4); White Blood Count 7.7 K/mm3 (4.4-11.0)
--- NOTE | 2018-05-25 16:51 | PCA ---
Addendum entered by Sahil Conrad 05/25/18 16:59: [facility] transfer line- [phone] Original Note: Call placed to [facility] transfer center. Spoke with Catalina who stated there still is no bed available at this time.
--- NOTE | 2018-05-25 18:11 | NURSING ---
SPOKE WITH FROILAN IN LAB RE:STAT H&H
[2018-05-25 18:37] LABS: Hematocrit 28.8 % (37-47); Hemoglobin 9.4 g/dl (12.0-15.0)
--- NOTE | 2018-05-25 18:37 | PCA ---
Alicja from [facility] transfer center called stating there is a bed available. Pt will go to [address] [place] [address], bed 9[address]A. [facility] is sending over squad at this moment for transfer. Informed primary RN. Report number is [phone]
--- NOTE | 2018-05-25 18:55 | NURSING ---
ATTEMPT TO CALL REPORT UNSUCESSFUL WITH NO ANSWER ON UNIT X1, THEN NURSE UNAVAILABLE FOR REPORT X1, THEY STATES THEY WILL CALL BACK [phone]
== END 2018-05-25 19:27 | disposition short-term general hospital (02) | DRG 378 ==
PROVIDERS: Anesthesiology; Admitting Provider Family Medicine; Family Provider Family Medicine; PCP Family Medicine; Referring Provider Surgery
PROC: 0DJD8ZZ Inspection of Lower Intestinal Tract, Via Natural or Artificial Opening Endoscopic (ICD-10-PCS; CPT 45378; principal; 2018-05-25 06:25)
DX: K55.21 Angiodysplasia of colon with hemorrhage (principal); E87.1 Hypo-osmolality and hyponatremia; K57.31 Diverticulosis of large intestine without perforation or abscess with bleeding; E03.9 Hypothyroidism, unspecified; K75.4 Autoimmune hepatitis; I10 Essential (primary) hypertension; D47.2 Monoclonal gammopathy; M32.9 Systemic lupus erythematosus, unspecified; K64.2 Third degree hemorrhoids
CPT/HCPCS: 36415; 80048; 80076; 82274; 83735; 84443; 85014; 85018; 85025; 85610; 85730; 86850; 86900; 93005; 96360; 99285; J7030; J7040; A4216; J2405

== ENCOUNTER 2018-06-15 14:15 | Inpatient (IN) | payer MEDICARE, SELFPAY ==
[2018-06-15 14:54] VITALS: BP 141/41; PULSE 86; RESP 18; TEMP 37; O2SAT 99; BMI 20.5; BMI 20.6
--- NOTE | 2018-06-15 16:01 | PCM.HP.STD ---
Problem List (1) Gastrointestinal bleeding, lower Status: Acute (2) AVM (arteriovenous malformation) of colon with hemorrhage Status: Acute (3) Hyponatremia Status: Acute (4) Adrenal insufficiency Status: Chronic (5) Hemorrhoids Status: Acute (6) Diverticulosis Status: Acute (7) Acute blood loss anemia Status: Acute (8) Hyperlipidemia Status: Chronic (9) Lupus Status: Chronic (10) Glaucoma Status: Chronic (11) Hypothyroidism Status: Chronic (12) Hypertension Status: Chronic (13) Autoimmune hepatitis Status: Chronic History of Present Illness Date of Admission: 06/15/18 Chief Complaint: Here for rehabilitation, strengthening, prior to discharge home. The patient is a 78 year old Female with below past medical history with followin05/23/2018 [facility] Emergency Department with bright red blood per rectum. x 2 days, red blood, blood clots 5 to 6 episodes. IV fluids. CBCD okay, Sodium 130, Stool Guaiac negative, but probably false negative. 05/24/2018 Admit to Hospital. IV Fluids, Type & Screen, Serial H&H, IV PPI. 05/25/2018 Dr. Khan performed colonoscopy. Grade III hemorrhoids. Bleeding right sided arteriovenous malformations. Bleeding left sided diverticulum. 05/25/2018 Transferred to [facility] for further care. Patient diagnosed with adrenal insufficiency, treated with hydrocortisone 10MG AM, 5MG PM. Patient suffered ongoing fevers. CT abdomen/pelvis showed colonic microperforations. General Surgery recommended no surgical intervention. Treated with cefepime/flagyl, then Cipro/flagyl. Hyponatremia secondary to adrenal insufficiency. 06/15/2018 Admit to TCU with debility, here for rehabilitation, strengthening, prior to discharge home. 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 Tachycardia R00.0 Allergies griseofulvin ultramicrosize [From Priti-PEG (ultramicrosize)] Allergy (Severe, Verified 05/24/18 12:45) RACING HEART AND SEVERE H/A azathioprine [From Imuran] Adverse Reaction (Severe, Verified 05/24/18 12:45) Nausea/Vom/Diarrhea azathioprine sodium [From Imuran] Adverse Reaction (Severe, Verified 05/24/18 12:45) Nausea/Vom/Diarrhea Penicillins Adverse Reaction (Severe, Verified 05/24/18 12:45) Hives Home Medications: Ambulatory Orders Medication Instructions Recorded Bimatoprost [Lumigan Opthalmic] 1 drp EACH EYE QHS 06/23/17 Brimonidine 0.15% [Alphagan P 1 drp EACH EYE BID 06/23/17 0.15%] Budesonide [Budesonide EC] 3 mg PO DAILY 06/23/17 Hydroxychloroquine [Plaquenil] 200 mg PO DAILYCM 06/23/17 Levothyroxine Sodium [Synthroid] 75 mcg PO DAILY 06/23/17 Timolol 0.5% [Timoptic] 1 drp EACH EYE DAILY 06/23/17 Surgical History: Surgical History (Last Reviewed 05/24/18 @ 12:44 by Zoë Quiroz) H/O cataract extraction Z98.49 H/O tubal ligation Z98.51 Hx of cholecystectomy Z98.890, Z90.49 h/o mass removed from hip Surgical History: cataract, cholecystectomy, - - D+C x 2, BLTL, sinus cyst removal BL. Psychiatric History: No pertinent psych hx [employer] History: No pertinent [employer] history Lives: Spouse/ Significant Other - Spouse currently in skilled rehab unit. Smoking Status: Never smoker Tobacco Use: Non-smoker Alcohol: None Drugs: None - *Family History Maternal Family History: Family History (Last Reviewed 05/24/18 @ 14:16 by VADIM Fish) Father Heart disease Mother Heart disease History Items: No pertinent history Paternal Family History: Family History (Last Reviewed 05/24/18 @ 14:16 by VADIM Fish) Father Heart disease Mother Heart disease History Items: No pertinent history Review of Systems Constitutional: Denies: Chills, Fever, Weight Change HEENT: Denies: Head Aches, Sinus Congestion, Sinus Drainage Cardiovascular: Denies: Chest Pain, Palpitations Respiratory: Denies: Cough, Shortness of breath at rest, Sputum production Gastrointestinal: Denies: Abdominal Pain, Nausea, Vomiting Genitourinary: Denies: Dysuria Musculoskeletal: Denies: Joint Pain, Joint Tenderness Skin: Denies: Rash, Wounds Neurological: Denies: Numbness, Tingling, Focal weakness Psychiatric: Denies: Anxiety, Depression, Homicidal Ideations, Suicidal Ideations Hematologic/ Lymphatic: Denies: Easy Bruising, Easy Bleeding VTE Information - Inpt Only VTE Present on Admission: No VTE Mechan Device Prophylaxis: Knee High BRADLEY Hose VTE Pharm Prophylaxis ordered?: No 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) Hyponatremia (Acute) Hemorrhoids (Acute) Diverticulosis (Acute) - Physical Exam General: Alert, Oriented x3, Cooperative HEENT: Atraumatic, PERRLA, EOMI, Normocephalic Neck: Supple, No JVD, Negative Carotid Bruits Lungs: Clear to auscultation, Normal air movement Cardiovascular: Regular rate, No murmurs Abdomen: Bowel Sounds Present, Soft, Non Tender Extremities: No edema, Capillary Refill Less than 3 Seconds Skin: No rashes, No breakdown Musculoskeletal: No Tenderness to Palpation of Joints or Extremities Neurological: Cranial nerves II-XII grossly intact Psych/Mental Status: Normal Affect, Appropriate Body Mass Index (BMI) 21.2 Assessment/Plan All Active Problems (Last Updated 05/25/18 @ 10:47 by Ashvin Bowman DO) Gastrointestinal bleeding, lower (Acute) 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) Hyponatremia (Acute) Hemorrhoids (Acute) Diverticulosis (Acute) Acute blood loss anemia (Acute) Rectal bleeding (Acute) C. difficile colitis (Resolved) Nonhealing nonsurgical wound (Resolved) Shingles (Resolved) Traumatic open wound of right lower leg (Resolved) 78 year old female with below past medical history hospitalized for acute GI bleeding secondary to right sided AVM, left sided diverticulosis, grade 3 hemorrhoids, complicated by ongoing fevers, adrenal insufficiency, hyponatremia, admitted to TCU with debility, here for rehabilitation, strengthening, prior to discharge home. Debility - PT/OT. Pain - Tylenol 1000MG Q8H PRN mild pain. Bowel - Miralax 17GM daily, Dulcolax 10MG PO daily PRN. Pneumonia vaccination - Administer Prevnar 13 and/or Pneumovax 23 as necessary. DVT prophylaxis - Hold due to recent GI bleed. Glaucoma - Lumigan 1GTT OU QHS, Alphagan 1GTT OU BID. Autoimmune Hepatitis - Budesonide 3MG daily. Hypertension - Coreg 12.5MG BID. Skin irritation - Eucerin 4x/day PRN. Adrenal insufficiency - Cortef 10MG AM, 5MG PM. Lupus - Plaquenil 200MG daily. Hypothyroidism - Levothyroxine 75MCG daily. Insomnia - Melatonin 3MG QHS. Hypokalemia - KCL 50MEQ daily.
--- NOTE | 2018-06-15 16:29 | NURSING ---
Pt arrived at 14:20 via cot from [facility]
--- NOTE | 2018-06-15 16:39 | NURSING ---
Pt. admitted to room 17b from [facility]. Oriented to room and call light system explained. Family at bedside.
[2018-06-15] MEDS: Carvedilol 12.5 MG Tablet PO (18:01)
[2018-06-15 19:47] VITALS: O2SAT 98
[2018-06-15] MEDS: Hydrocortisone 10 MG Tablet 5 MG PO (20:58)
[2018-06-15] MEDS: BRIMONIDINE 0.15% 5 ML Bottle 1 DRP EACH EYE (22:30)
[2018-06-16] MEDS: Levothyroxine 75 MCG Tablet PO (06:18)
[2018-06-16] MEDS: Menthol/Lanolin/Calamine/Znox 113 GM Tube 1 APPLIC TOPICAL ×3 (06:21→21:40)
[2018-06-16 07:07] LABS: Absolute Lymphocyte Count 1.81 X10^3/ul (0.83-4.51); Absolute Neutrophil Count 3.7 X10^3/uL (2.0-7.7); Basophil# 0.01 X10^3/uL; Basophil% 0.2 % (0-1); Eosinophil# 0.04 X10^3/uL; Eosinophils% 0.6 % (0-5); Hematocrit 29.3 % (37-47); Hemoglobin 9.3 g/dl (12.0-15.0); Lymphocyte # 1.81 X10^3/ul (4.0); Lymphocyte % 28.3 % (19-41); Mean Corp Hgb Conc 31.7 g/gl (32-36); Mean Corpuscular Volume 94.5 fL (81-99); Monocyte# 0.76 X10^3/uL; Monocyte% 11.9 % (0-10); Neutrophil # 3.74 X10^3/uL (2.7-7.7); Neutrophil % 58.4 % (47-70); Platelet Count 277 K/mm3 (150-450); RBC Distribution Width SD 58.4 fl (35.1-43.9); White Blood Count 6.4 K/mm3 (4.4-11.0)
[2018-06-16 07:10] LABS: POSITIVE COUNT NO; POSITIVE DIFFERENTIAL NO; POSITIVE MORPHOLOGY NO
[2018-06-16 07:39] LABS: Anion Gap 10 (5-15); BUN 9 mg/dL (7-18); BUN/Creat Ratio 15.4 RATIO (10-20); Calcium,Total 8.1 mg/dL (8.5-10.1); Chloride 102 mmol/L (98-107); Creatinine, Serum 0.58 mg/dL (0.55-1.02); EST Glomerular Filtration Rate 106 mL/min (>60); Est Glom Filt Rate - Afr Amer 128 mL/min (>60); Estimated Creatinine Clearance 32.72 ml/min; Glucose 94 mg/dL (74-106); Potassium 3.9 mmol/L (3.5-5.1); Sodium Level 138 mmol/L (136-145)
[2018-06-16] MEDS: Budesonide 3 MG CAPSULE.EC PO ×2 (08:30→09:21)
[2018-06-16] MEDS: Carvedilol 12.5 MG Tablet PO ×3 (08:30→18:20)
[2018-06-16] MEDS: BRIMONIDINE 0.15% 5 ML Bottle 1 DRP EACH EYE ×2 (09:20→21:37)
[2018-06-16] MEDS: Hydroxychloroquine 200 MG Tablet PO (09:22)
[2018-06-16] MEDS: Hydrocortisone 10 MG Tablet PO (09:22)
[2018-06-16] MEDS: Timolol 0.5% 5ML OPTH.BTL 1 DRP EACH EYE (09:33)
--- NOTE | 2018-06-16 13:35 | NURSING ---
NO to d/c melatonin. family updated.
[2018-06-16] MEDS: Tuberculin,Purif.prot.deriv. 50 TU/ML Vial 5 ML ID (14:04)
[2018-06-16 15:52] VITALS: BP 135/59; PULSE 86; RESP 18; TEMP 37; O2SAT 97
[2018-06-16] MEDS: Hydrocortisone 10 MG Tablet 5 MG PO (18:19)
[2018-06-16] MEDS: Nystatin Powder 15gm Bottle 1 APPLIC TOPICAL (21:40)
[2018-06-17] MEDS: Levothyroxine 75 MCG Tablet PO (05:40)
[2018-06-17] MEDS: Nystatin Powder 15gm Bottle 1 APPLIC TOPICAL ×2 (05:42→20:55)
[2018-06-17] MEDS: Menthol/Lanolin/Calamine/Znox 113 GM Tube 1 APPLIC TOPICAL ×3 (05:42→20:53)
[2018-06-17] MEDS: Iron Polysaccharide Complex 150 MG CAPSULE PO (09:06)
[2018-06-17] MEDS: Carvedilol 12.5 MG Tablet PO ×2 (09:06→17:55)
[2018-06-17] MEDS: Hydrocortisone 10 MG Tablet PO (09:06)
[2018-06-17] MEDS: Budesonide 3 MG CAPSULE.EC PO (09:06)
[2018-06-17] MEDS: BRIMONIDINE 0.15% 5 ML Bottle 1 DRP EACH EYE ×2 (09:06→20:41)
[2018-06-17] MEDS: Hydroxychloroquine 200 MG Tablet PO (09:06)
[2018-06-17] MEDS: Timolol 0.5% 5ML OPTH.BTL 1 DRP EACH EYE (09:07)
--- NOTE | 2018-06-17 12:42 | PCM.PN.RX ---
<Kai Alonzo D - Last Filed: 06/17/18 12:42> Progress Note - Pharmacy Subjective: TCU Admission Objective: Allergies griseofulvin ultramicrosize [From Priti-PEG (ultramicrosize)] Allergy (Severe, Verified 05/24/18 12:45) RACING HEART AND SEVERE H/A azathioprine [From Imuran] Adverse Reaction (Severe, Verified 05/24/18 12:45) Nausea/Vom/Diarrhea azathioprine sodium [From Imuran] Adverse Reaction (Severe, Verified 05/24/18 12:45) Nausea/Vom/Diarrhea Penicillins Adverse Reaction (Severe, Verified 05/24/18 12:45) Hives Current Medications Generic Name Dose Route Start Last Admin Trade Name Freq PRN Reason Stop Dose Admin Acetaminophen 1,000 mg 06/15/18 16:53 Tylenol PO Q8H PRN PRN MILD PAIN (1-3/10) Bimatoprost 1 drop 06/17/18 20:00 06/16/18 21:36 Lumigan EACH EYE 1 drop DAILY@1999 [facility] Administration Bisacodyl 10 mg 06/15/18 16:53 Dulcolax PO DAILY PRN Constipation Brimonidine Tartrate 1 drop 06/16/18 20:00 06/17/18 09:06 Alphagan P 0.15% EACH EYE 1 drop BID@0800,1999 [facility] Administration Budesonide 3 mg 06/16/18 08:00 06/17/18 09:06 Budesonide Ec PO 3 mg DAILY@0800 [facility] Administration Calamine/Phenol 1 applic 06/15/18 22:00 06/17/18 05:42 Calmoseptine Ointment TOPICAL 1 applicatio TID [facility] Administration Protocol Carvedilol 12.5 mg 06/16/18 08:00 06/17/18 09:06 Coreg PO 12.5 mg BID@0800,1800 [facility] Administration Emollient Ointment 1 applic 06/15/18 15:15 Eucerin Intensive Repair TOPICAL 4X/DAY PRN PRN DRY SKIN Protocol Hydrocortisone 10 mg 06/16/18 08:00 06/17/18 09:06 Cortef PO 10 mg DAILYCM [facility] Administration Hydrocortisone 5 mg 06/16/18 15:00 06/16/18 18:19 Cortef PO 5 mg QPM@1500 [facility] Administration Hydroxychloroquine Sulfate 200 mg 06/16/18 08:00 06/17/18 09:06 Plaquenil PO 200 mg DAILYCM [facility] Administration Levothyroxine Sodium 75 mcg 06/16/18 06:00 06/17/18 05:40 Synthroid PO 75 mcg DAILY [facility] Administration Nystatin 1 applic 06/15/18 22:00 06/17/18 05:42 Mycostatin Powder TOPICAL 1 applicatio BID@0600,2200 [facility] Administration Protocol Polyethylene Glycol 17 gm 06/16/18 08:00 06/17/18 09:07 Miralax PO Not Given DAILY@0800 [facility] Polysaccharide Iron Complex 150 mg 06/17/18 08:00 06/17/18 09:06 Ferrex 150 PO 150 mg DAILYCM [facility] Administration Potassium Bicarb/Potassium Chloride 50 meq 06/16/18 08:00 06/17/18 09:07 Potassium Chl 25 Meq Eff (For Liquid) PO 50 meq DAILYCM [facility] Administration Timolol Maleate 1 drop 06/17/18 08:00 06/17/18 09:07 Timoptic EACH EYE 1 drop DAILY@0800 [facility] Administration Tuberculin PPD 5 tu 06/23/18 10:00 Tubersol, Aplisol, Ppd ID 06/23/18 10:01 X1 ONE Problem List (Last Updated 05/25/18 @ 10:47 by Ashvin Bowman DO) Gastrointestinal bleeding, lower (Acute) 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) Hyponatremia (Acute) Adrenal insufficiency (Chronic) Hemorrhoids (Acute) Diverticulosis (Acute) Hyperlipidemia (Chronic) Lupus (Chronic) Glaucoma (Chronic) Vital Signs Temp Pulse Resp BP Pulse Ox 98.6 F 86 18 135/59 H 97 06/16/18 15:52 06/16/18 15:52 06/16/18 15:52 06/16/18 15:52 06/16/18 15:52 Oxygen Delivery Method Room Air Weight: 44.707 kg Body Mass Index (BMI) 20.5 Sodium 138 mmol/L (136-145) 06/16/18 06:50 Potassium 3.9 mmol/L (3.5-5.1) 06/16/18 06:50 Chloride 102 mmol/L (98-107) 06/16/18 06:50 Carbon Dioxide 26.0 mmol/L (21.0-32.0) 06/16/18 06:50 Anion Gap 10 (5-15) 06/16/18 06:50 BUN 9 mg/dL (7-18) 06/16/18 06:50 Creatinine 0.58 mg/dL (0.55-1.02) 06/16/18 06:50 Est GFR (MDRD) Af Amer 128 mL/min (>60) 06/16/18 06:50 Est GFR (MDRD) Non-Af 106 mL/min (>60) 06/16/18 06:50 BUN/Creatinine Ratio 15.4 RATIO (10-20) 06/16/18 06:50 Glucose 94 mg/dL (74-106) 06/16/18 06:50 Assessment/Plan: 1) Pain APAP for mild pain, hydroxychloroquine. Continue to monitor prn medication use, daily pain scores. 2) HTN Carvedilol. Continue to monitor BP/HR. 3) Adrenal Insufficiency Hydrocortisone orally. Continue to monitor clinically. 4) Hypothyroidism Levothyroxine daily. Continue to monitor s/s hyper/hypothyroidism. 5) GI Budesonide daily. Continue to monitor s/s GI distress. Psychotropic Medications: None Unnecessary Medications: None Bowel Regimen: 6) PEG daily, prn bisacodyl. Continue to monitor prn medication use, for constipation/diarrhea. Date of Note:: 06/17/18 - Provider Comments Provider responsibility: Provider responsible to enter orders to implement recommendations <Barak May Chi - Last Filed: 06/17/18 17:52> Progress Note - Pharmacy Subjective: [] Objective: Allergies griseofulvin ultramicrosize [From Priti-PEG (ultramicrosize)] Allergy (Severe, Verified 05/24/18 12:45) RACING HEART AND SEVERE H/A azathioprine [From Imuran] Adverse Reaction (Severe, Verified 05/24/18 12:45) Nausea/Vom/Diarrhea azathioprine sodium [From Imuran] Adverse Reaction (Severe, Verified 05/24/18 12:45) Nausea/Vom/Diarrhea Penicillins Adverse Reaction (Severe, Verified 05/24/18 12:45) Hives Current Medications Generic Name Dose Route Start Last Admin Trade Name Freq PRN Reason Stop Dose Admin Acetaminophen 1,000 mg 06/15/18 16:53 Tylenol PO Q8H PRN PRN MILD PAIN (1-3/10) Bimatoprost 1 drop 06/17/18 20:00 06/16/18 21:36 Lumigan EACH EYE 1 drop DAILY@1999 [facility] Administration Bisacodyl 10 mg 06/15/18 16:53 Dulcolax PO DAILY PRN Constipation Brimonidine Tartrate 1 drop 06/16/18 20:00 06/17/18 09:06 Alphagan P 0.15% EACH EYE 1 drop BID@0800,1999 [facility] Administration Budesonide 3 mg 06/16/18 08:00 06/17/18 09:06 Budesonide Ec PO 3 mg DAILY@0800 [facility] Administration Calamine/Phenol 1 applic 06/15/18 22:00 06/17/18 15:17 Calmoseptine Ointment TOPICAL 1 applicatio TID [facility] Administration Protocol Carvedilol 12.5 mg 06/16/18 08:00 06/17/18 09:06 Coreg PO 12.5 mg BID@0800,1800 [facility] Administration Emollient Ointment 1 applic 06/15/18 15:15 Eucerin Intensive Repair TOPICAL 4X/DAY PRN PRN DRY SKIN Protocol Hydrocortisone 10 mg 06/16/18 08:00 06/17/18 09:06 Cortef PO 10 mg DAILYCM [facility] Administration Hydrocortisone 5 mg 06/16/18 15:00 06/17/18 15:17 Cortef PO 5 mg QPM@1500 [facility] Administration Hydroxychloroquine Sulfate 200 mg 06/16/18 08:00 06/17/18 09:06 Plaquenil PO 200 mg DAILYCM [facility] Administration Levothyroxine Sodium 75 mcg 06/16/18 06:00 06/17/18 05:40 Synthroid PO 75 mcg DAILY [facility] Administration Nystatin 1 applic 06/15/18 22:00 06/17/18 05:42 Mycostatin Powder TOPICAL 1 applicatio BID@0600,2200 [facility] Administration Protocol Polyethylene Glycol 17 gm 06/16/18 08:00 06/17/18 09:07 Miralax PO Not Given DAILY@0800 [facility] Polysaccharide Iron Complex 150 mg 06/17/18 08:00 06/17/18 09:06 Ferrex 150 PO 150 mg DAILYCM [facility] Administration Potassium Bicarb/Potassium Chloride 50 meq 06/16/18 08:00 06/17/18 09:07 Potassium Chl 25 Meq Eff (For Liquid) PO 50 meq DAILYCM [facility] Administration Timolol Maleate 1 drop 06/17/18 08:00 06/17/18 09:07 Timoptic EACH EYE 1 drop DAILY@0800 [facility] Administration Tuberculin PPD 5 tu 06/23/18 10:00 Tubersol, Aplisol, Ppd ID 06/23/18 10:01 X1 ONE Problem List (Last Updated 05/25/18 @ 10:47 by Ashvin Bowman DO) Gastrointestinal bleeding, lower (Acute) 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) Hyponatremia (Acute) Adrenal insufficiency (Chronic) Hemorrhoids (Acute) Diverticulosis (Acute) Hyperlipidemia (Chronic) Lupus (Chronic) Glaucoma (Chronic) Vital Signs Temp Pulse Resp BP Pulse Ox 98.1 F 93 16 145/59 H 98 06/17/18 16:00 06/17/18 16:00 06/17/18 16:00 06/17/18 16:00 06/17/18 16:00 Oxygen Delivery Method Room Air Weight: 44.707 kg Body Mass Index (BMI) 20.5 Sodium 138 mmol/L (136-145) 06/16/18 06:50 Potassium 3.9 mmol/L (3.5-5.1) 06/16/18 06:50 Chloride 102 mmol/L (98-107) 06/16/18 06:50 Carbon Dioxide 26.0 mmol/L (21.0-32.0) 06/16/18 06:50 Anion Gap 10 (5-15) 06/16/18 06:50 BUN 9 mg/dL (7-18) 06/16/18 06:50 Creatinine 0.58 mg/dL (0.55-1.02) 06/16/18 06:50 Est GFR (MDRD) Af Amer 128 mL/min (>60) 06/16/18 06:50 Est GFR (MDRD) Non-Af 106 mL/min (>60) 06/16/18 06:50 BUN/Creatinine Ratio 15.4 RATIO (10-20) 06/16/18 06:50 Glucose 94 mg/dL (74-106) 06/16/18 06:50 Assessment/Plan: Psychotropic Medications: Unnecessary Medications: Bowel Regimen: - Provider Comments Provider responsibility: Provider responsible to enter orders to implement recommendations Provider Comments to Recommendations by Pharmacy: Agree
--- NOTE | 2018-06-17 12:46 | PHA.CONS_ITS ---
<Kai Alonzo D - Last Filed: 06/17/18 12:42> Progress Note - Pharmacy Subjective: TCU Admission Objective: Allergies griseofulvin ultramicrosize [From Priti-PEG (ultramicrosize)] Allergy (Severe, Verified 05/24/18 12:45) RACING HEART AND SEVERE H/A azathioprine [From Imuran] Adverse Reaction (Severe, Verified 05/24/18 12:45) Nausea/Vom/Diarrhea azathioprine sodium [From Imuran] Adverse Reaction (Severe, Verified 05/24/18 12:45) Nausea/Vom/Diarrhea Penicillins Adverse Reaction (Severe, Verified 05/24/18 12:45) Hives Current Medications Generic Name Dose Route Start Last Admin Trade Name Freq PRN Reason Stop Dose Admin Acetaminophen 1,000 mg 06/15/18 16:53 Tylenol PO Q8H PRN PRN MILD PAIN (1-3/10) Bimatoprost 1 drop 06/17/18 20:00 06/16/18 21:36 Lumigan EACH EYE 1 drop DAILY@1999 [facility] Administration Bisacodyl 10 mg 06/15/18 16:53 Dulcolax PO DAILY PRN Constipation Brimonidine Tartrate 1 drop 06/16/18 20:00 06/17/18 09:06 Alphagan P 0.15% EACH EYE 1 drop BID@0800,1999 [facility] Administration Budesonide 3 mg 06/16/18 08:00 06/17/18 09:06 Budesonide Ec PO 3 mg DAILY@0800 [facility] Administration Calamine/Phenol 1 applic 06/15/18 22:00 06/17/18 05:42 Calmoseptine Ointment TOPICAL 1 applicatio TID [facility] Administration Protocol Carvedilol 12.5 mg 06/16/18 08:00 06/17/18 09:06 Coreg PO 12.5 mg BID@0800,1800 [facility] Administration Emollient Ointment 1 applic 06/15/18 15:15 Eucerin Intensive Repair TOPICAL 4X/DAY PRN PRN DRY SKIN Protocol Hydrocortisone 10 mg 06/16/18 08:00 06/17/18 09:06 Cortef PO 10 mg DAILYCM [facility] Administration Hydrocortisone 5 mg 06/16/18 15:00 06/16/18 18:19 Cortef PO 5 mg QPM@1500 [facility] Administration Hydroxychloroquine Sulfate 200 mg 06/16/18 08:00 06/17/18 09:06 Plaquenil PO 200 mg DAILYCM [facility] Administration Levothyroxine Sodium 75 mcg 06/16/18 06:00 06/17/18 05:40 Synthroid PO 75 mcg DAILY [facility] Administration Nystatin 1 applic 06/15/18 22:00 06/17/18 05:42 Mycostatin Powder TOPICAL 1 applicatio BID@0600,2200 [facility] Administration Protocol Polyethylene Glycol 17 gm 06/16/18 08:00 06/17/18 09:07 Miralax PO Not Given DAILY@0800 [facility] Polysaccharide Iron Complex 150 mg 06/17/18 08:00 06/17/18 09:06 Ferrex 150 PO 150 mg DAILYCM [facility] Administration Potassium Bicarb/Potassium Chloride 50 meq 06/16/18 08:00 06/17/18 09:07 Potassium Chl 25 Meq Eff (For Liquid) PO 50 meq DAILYCM [facility] Administration Timolol Maleate 1 drop 06/17/18 08:00 06/17/18 09:07 Timoptic EACH EYE 1 drop DAILY@0800 [facility] Administration Tuberculin PPD 5 tu 06/23/18 10:00 Tubersol, Aplisol, Ppd ID 06/23/18 10:01 X1 ONE Problem List (Last Updated 05/25/18 @ 10:47 by Ashvin Bowman DO) Gastrointestinal bleeding, lower (Acute) 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) Hyponatremia (Acute) Adrenal insufficiency (Chronic) Hemorrhoids (Acute) Diverticulosis (Acute) Hyperlipidemia (Chronic) Lupus (Chronic) Glaucoma (Chronic) Vital Signs Temp Pulse Resp BP Pulse Ox 98.6 F 86 18 135/59 H 97 06/16/18 15:52 06/16/18 15:52 06/16/18 15:52 06/16/18 15:52 06/16/18 15:52 Oxygen Delivery Method Room Air Weight: 44.707 kg Body Mass Index (BMI) 20.5 Sodium 138 mmol/L (136-145) 06/16/18 06:50 Potassium 3.9 mmol/L (3.5-5.1) 06/16/18 06:50 Chloride 102 mmol/L (98-107) 06/16/18 06:50 Carbon Dioxide 26.0 mmol/L (21.0-32.0) 06/16/18 06:50 Anion Gap 10 (5-15) 06/16/18 06:50 BUN 9 mg/dL (7-18) 06/16/18 06:50 Creatinine 0.58 mg/dL (0.55-1.02) 06/16/18 06:50 Est GFR (MDRD) Af Amer 128 mL/min (>60) 06/16/18 06:50 Est GFR (MDRD) Non-Af 106 mL/min (>60) 06/16/18 06:50 BUN/Creatinine Ratio 15.4 RATIO (10-20) 06/16/18 06:50 Glucose 94 mg/dL (74-106) 06/16/18 06:50 Assessment/Plan: 1) Pain APAP for mild pain, hydroxychloroquine. Continue to monitor prn medication use, daily pain scores. 2) HTN Carvedilol. Continue to monitor BP/HR. 3) Adrenal Insufficiency Hydrocortisone orally. Continue to monitor clinically. 4) Hypothyroidism Levothyroxine daily. Continue to monitor s/s hyper/hypothyroidism. 5) GI Budesonide daily. Continue to monitor s/s GI distress. Psychotropic Medications: None Unnecessary Medications: None Bowel Regimen: 6) PEG daily, prn bisacodyl. Continue to monitor prn medication use, for constipation/diarrhea. Date of Note:: 06/17/18 - Provider Comments Provider responsibility: Provider responsible to enter orders to implement recommendations <Barak May Chi - Last Filed: 06/17/18 17:52> Progress Note - Pharmacy Subjective: [] Objective: Allergies griseofulvin ultramicrosize [From Priti-PEG (ultramicrosize)] Allergy (Severe, Verified 05/24/18 12:45) RACING HEART AND SEVERE H/A azathioprine [From Imuran] Adverse Reaction (Severe, Verified 05/24/18 12:45) Nausea/Vom/Diarrhea azathioprine sodium [From Imuran] Adverse Reaction (Severe, Verified 05/24/18 12:45) Nausea/Vom/Diarrhea Penicillins Adverse Reaction (Severe, Verified 05/24/18 12:45) Hives Current Medications Generic Name Dose Route Start Last Admin Trade Name Freq PRN Reason Stop Dose Admin Acetaminophen 1,000 mg 06/15/18 16:53 Tylenol PO Q8H PRN PRN MILD PAIN (1-3/10) Bimatoprost 1 drop 06/17/18 20:00 06/16/18 21:36 Lumigan EACH EYE 1 drop DAILY@1999 [facility] Administration Bisacodyl 10 mg 06/15/18 16:53 Dulcolax PO DAILY PRN Constipation Brimonidine Tartrate 1 drop 06/16/18 20:00 06/17/18 09:06 Alphagan P 0.15% EACH EYE 1 drop BID@0800,1999 [facility] Administration Budesonide 3 mg 06/16/18 08:00 06/17/18 09:06 Budesonide Ec PO 3 mg DAILY@0800 [facility] Administration Calamine/Phenol 1 applic 06/15/18 22:00 06/17/18 15:17 Calmoseptine Ointment TOPICAL 1 applicatio TID [facility] Administration Protocol Carvedilol 12.5 mg 06/16/18 08:00 06/17/18 09:06 Coreg PO 12.5 mg BID@0800,1800 [facility] Administration Emollient Ointment 1 applic 06/15/18 15:15 Eucerin Intensive Repair TOPICAL 4X/DAY PRN PRN DRY SKIN Protocol Hydrocortisone 10 mg 06/16/18 08:00 06/17/18 09:06 Cortef PO 10 mg DAILYCM [facility] Administration Hydrocortisone 5 mg 06/16/18 15:00 06/17/18 15:17 Cortef PO 5 mg QPM@1500 [facility] Administration Hydroxychloroquine Sulfate 200 mg 06/16/18 08:00 06/17/18 09:06 Plaquenil PO 200 mg DAILYCM [facility] Administration Levothyroxine Sodium 75 mcg 06/16/18 06:00 06/17/18 05:40 Synthroid PO 75 mcg DAILY [facility] Administration Nystatin 1 applic 06/15/18 22:00 06/17/18 05:42 Mycostatin Powder TOPICAL 1 applicatio BID@0600,2200 [facility] Administration Protocol Polyethylene Glycol 17 gm 06/16/18 08:00 06/17/18 09:07 Miralax PO Not Given DAILY@0800 [facility] Polysaccharide Iron Complex 150 mg 06/17/18 08:00 06/17/18 09:06 Ferrex 150 PO 150 mg DAILYCM [facility] Administration Potassium Bicarb/Potassium Chloride 50 meq 06/16/18 08:00 06/17/18 09:07 Potassium Chl 25 Meq Eff (For Liquid) PO 50 meq DAILYCM [facility] Administration Timolol Maleate 1 drop 06/17/18 08:00 06/17/18 09:07 Timoptic EACH EYE 1 drop DAILY@0800 [facility] Administration Tuberculin PPD 5 tu 06/23/18 10:00 Tubersol, Aplisol, Ppd ID 06/23/18 10:01 X1 ONE Problem List (Last Updated 05/25/18 @ 10:47 by Ashvin Bowman DO) Gastrointestinal bleeding, lower (Acute) 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) Hyponatremia (Acute) Adrenal insufficiency (Chronic) Hemorrhoids (Acute) Diverticulosis (Acute) Hyperlipidemia (Chronic) Lupus (Chronic) Glaucoma (Chronic) Vital Signs Temp Pulse Resp BP Pulse Ox 98.1 F 93 16 145/59 H 98 06/17/18 16:00 06/17/18 16:00 06/17/18 16:00 06/17/18 16:00 06/17/18 16:00 Oxygen Delivery Method Room Air Weight: 44.707 kg Body Mass Index (BMI) 20.5 Sodium 138 mmol/L (136-145) 06/16/18 06:50 Potassium 3.9 mmol/L (3.5-5.1) 06/16/18 06:50 Chloride 102 mmol/L (98-107) 06/16/18 06:50 Carbon Dioxide 26.0 mmol/L (21.0-32.0) 06/16/18 06:50 Anion Gap 10 (5-15) 06/16/18 06:50 BUN 9 mg/dL (7-18) 06/16/18 06:50 Creatinine 0.58 mg/dL (0.55-1.02) 06/16/18 06:50 Est GFR (MDRD) Af Amer 128 mL/min (>60) 06/16/18 06:50 Est GFR (MDRD) Non-Af 106 mL/min (>60) 06/16/18 06:50 BUN/Creatinine Ratio 15.4 RATIO (10-20) 06/16/18 06:50 Glucose 94 mg/dL (74-106) 06/16/18 06:50 Assessment/Plan: Psychotropic Medications: Unnecessary Medications: Bowel Regimen: - Provider Comments Provider responsibility: Provider responsible to enter orders to implement recommendations Provider Comments to Recommendations by Pharmacy: Agree
[2018-06-17] MEDS: Hydrocortisone 10 MG Tablet 5 MG PO (15:17)
[2018-06-17 16:00] VITALS: BP 145/59; PULSE 93; RESP 16; TEMP 36.7; O2SAT 98
[2018-06-18] MEDS: Levothyroxine 75 MCG Tablet PO (06:34)
[2018-06-18] MEDS: Nystatin Powder 15gm Bottle 1 APPLIC TOPICAL ×2 (06:35→21:32)
[2018-06-18] MEDS: Menthol/Lanolin/Calamine/Znox 113 GM Tube 1 APPLIC TOPICAL ×3 (06:36→21:33)
[2018-06-18] MEDS: Hydrocortisone 10 MG Tablet PO (08:19)
[2018-06-18] MEDS: Timolol 0.5% 5ML OPTH.BTL 1 DRP EACH EYE (08:19)
[2018-06-18] MEDS: Budesonide 3 MG CAPSULE.EC PO (08:19)
[2018-06-18] MEDS: Iron Polysaccharide Complex 150 MG CAPSULE PO (08:19)
[2018-06-18] MEDS: Hydroxychloroquine 200 MG Tablet PO (08:19)
[2018-06-18] MEDS: Carvedilol 12.5 MG Tablet PO ×2 (08:19→17:18)
[2018-06-18] MEDS: BRIMONIDINE 0.15% 5 ML Bottle 1 DRP EACH EYE ×2 (08:22→21:32)
[2018-06-18] MEDS: Hydrocortisone 10 MG Tablet 5 MG PO (15:04)
[2018-06-18 15:19] VITALS: BP 136/64; PULSE 86; RESP 16; TEMP 35.7; O2SAT 99
[2018-06-19 06:24] LABS: Anion Gap 8 (5-15); BUN 16 mg/dL (7-18); BUN/Creat Ratio 28.1 RATIO (10-20); Calcium,Total 8.5 mg/dL (8.5-10.1); Chloride 103 mmol/L (98-107); Creatinine, Serum 0.57 mg/dL (0.55-1.02); EST Glomerular Filtration Rate 109 mL/min (>60); Est Glom Filt Rate - Afr Amer 132 mL/min (>60); Glucose 88 mg/dL (74-106); Sodium Level 137 mmol/L (136-145)
[2018-06-19] MEDS: Levothyroxine 75 MCG Tablet PO (07:01)
[2018-06-19] MEDS: Menthol/Lanolin/Calamine/Znox 113 GM Tube 1 APPLIC TOPICAL ×3 (07:02→21:27)
[2018-06-19] MEDS: Nystatin Powder 15gm Bottle 1 APPLIC TOPICAL ×2 (07:03→21:29)
[2018-06-19] MEDS: Hydroxychloroquine 200 MG Tablet PO (08:41)
[2018-06-19] MEDS: Budesonide 3 MG CAPSULE.EC PO (08:41)
[2018-06-19] MEDS: Iron Polysaccharide Complex 150 MG CAPSULE PO (08:41)
[2018-06-19] MEDS: Carvedilol 12.5 MG Tablet PO ×2 (08:41→17:50)
[2018-06-19] MEDS: Hydrocortisone 10 MG Tablet PO (08:41)
[2018-06-19] MEDS: Timolol 0.5% 5ML OPTH.BTL 1 DRP EACH EYE (08:42)
[2018-06-19] MEDS: BRIMONIDINE 0.15% 5 ML Bottle 1 DRP EACH EYE ×2 (08:42→21:27)
[2018-06-19] MEDS: Hydrocortisone 10 MG Tablet 5 MG PO (15:04)
[2018-06-19 15:34] VITALS: BP 138/75; PULSE 89; RESP 16; TEMP 36.1; O2SAT 99
--- NOTE | 2018-06-19 16:26 | CASEMGMT ---
Team meeting held today with pt, spouse, and three children present. Pt is progressing well with therapy. D/C possible at the end of next week if pt continues to progress. Pt and family are agreeable to this plan. Pt will be returning home alone with support of children who live close to pt. Continue with treatment plan at this time. EFE Palafox
[2018-06-20] MEDS: Levothyroxine 75 MCG Tablet PO (06:19)
[2018-06-20] MEDS: Menthol/Lanolin/Calamine/Znox 113 GM Tube 1 APPLIC TOPICAL ×3 (06:20→20:50)
[2018-06-20] MEDS: Nystatin Powder 15gm Bottle 1 APPLIC TOPICAL ×2 (06:20→20:50)
[2018-06-20] MEDS: Iron Polysaccharide Complex 150 MG CAPSULE PO (08:12)
[2018-06-20] MEDS: Carvedilol 12.5 MG Tablet PO ×2 (08:12→17:18)
[2018-06-20] MEDS: Budesonide 3 MG CAPSULE.EC PO (08:12)
[2018-06-20] MEDS: Hydrocortisone 10 MG Tablet PO (08:12)
[2018-06-20] MEDS: Hydroxychloroquine 200 MG Tablet PO (08:12)
[2018-06-20] MEDS: BRIMONIDINE 0.15% 5 ML Bottle 1 DRP EACH EYE ×2 (08:13→20:36)
[2018-06-20] MEDS: Timolol 0.5% 5ML OPTH.BTL 1 DRP EACH EYE (08:13)
--- NOTE | 2018-06-20 14:23 | MDS.RN ---
Pain interview for ernie 06/22/18 completed.
[2018-06-20 16:00] VITALS: BP 136/63; PULSE 90; RESP 18; TEMP 37; O2SAT 96
[2018-06-20] MEDS: Hydrocortisone 10 MG Tablet 5 MG PO (17:17)
[2018-06-21] MEDS: Levothyroxine 75 MCG Tablet PO (06:18)
[2018-06-21] MEDS: Nystatin Powder 15gm Bottle 1 APPLIC TOPICAL ×2 (06:19→20:57)
[2018-06-21] MEDS: Menthol/Lanolin/Calamine/Znox 113 GM Tube 1 APPLIC TOPICAL ×2 (06:20→20:57)
[2018-06-21] MEDS: Budesonide 3 MG CAPSULE.EC PO (08:50)
[2018-06-21] MEDS: Hydroxychloroquine 200 MG Tablet PO (08:50)
[2018-06-21] MEDS: Iron Polysaccharide Complex 150 MG CAPSULE PO (08:50)
[2018-06-21] MEDS: Timolol 0.5% 5ML OPTH.BTL 1 DRP EACH EYE (08:51)
[2018-06-21] MEDS: Hydrocortisone 10 MG Tablet PO (08:51)
[2018-06-21] MEDS: BRIMONIDINE 0.15% 5 ML Bottle 1 DRP EACH EYE ×2 (08:52→21:06)
[2018-06-21] MEDS: Carvedilol 12.5 MG Tablet PO ×2 (08:53→18:18)
--- NOTE | 2018-06-21 13:41 | CASEMGMT ---
BIMS and PHQ9 interviews completed on this date for MDS assessment. BIMS score , PHQ9 score 08/11. EFE Palafox
--- NOTE | 2018-06-21 13:48 | CASEMGMT ---
Team feels pt is doing well and d/c date set for 06/28/18. SW met with pt with dgt and spouse in room and discussed d/c plan. Pt is agreeable to d/c 06/28/18. She will be returning to her home and family will be staying with pt initially to ensure safe transition home. SW to follow for d/c planning. EFE Palafox
--- NOTE | 2018-06-21 14:47 | DCINST_ITS ---
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) Hyponatremia (Acute) Adrenal insufficiency (Chronic) Hemorrhoids (Acute) Diverticulosis (Acute) Hyperlipidemia (Chronic) Lupus (Chronic) Glaucoma (Chronic) You will use the following diet at home:: No restrictions, Regular Your food should be the consistency of: Regular Your liquids should be the consistency of: Regular/Thin Discharge Activity: Return to Normal Activity, May Shower, Use Walker Weight Bearing Status: Weight bearing as tolerated Call your doctor if you observe: Fever of 101 or Higher, Inability to urinate, Inability to have a bowel movement, Shortness of breath, Chest pain, Uncontrolled pain Allergies/Adverse Reactions: Allergies griseofulvin ultramicrosize [From Priti-PEG (ultramicrosize)] Allergy (Severe, Verified 05/24/18 12:45) RACING HEART AND SEVERE H/A azathioprine [From Imuran] Adverse Reaction (Severe, Verified 05/24/18 12:45) Nausea/Vom/Diarrhea azathioprine sodium [From Imuran] Adverse Reaction (Severe, Verified 05/24/18 12:45) Nausea/Vom/Diarrhea Penicillins Adverse Reaction (Severe, Verified 05/24/18 12:45) Hives Medications to take at Discharge Bimatoprost [Lumigan Opthalmic] 1 drp EACH EYE QHS 06/23/17 Brimonidine 0.15% [Alphagan P 0.15%] 1 drp EACH EYE BID 06/23/17 Budesonide [Budesonide EC] 3 mg PO DAILY 06/23/17 Hydroxychloroquine [Plaquenil] 200 mg PO DAILYCM 06/23/17 Levothyroxine Sodium [Synthroid] 75 mcg PO DAILY 06/23/17 Timolol 0.5% [Timoptic] 1 drp EACH EYE DAILY 06/23/17 Carvedilol [Coreg (Beta Rosalind)] 12.5 mg PO BID@0800,1800 #60 tablet 06/21/18 Hydrocortisone [Cortef] 5 mg PO QPM@1500 #30 tablet 06/21/18 Hydrocortisone [Cortef] 10 mg PO DAILYCM #30 tablet 06/21/18 Iron Polysaccharide Complex [Ferrex 150] 150 mg PO DAILYCM #30 capsule 06/21/18 Menthol/Lanolin/Calamine/Znox [Calmoseptine Ointment] 1 applic TOPICAL 0600,2200 tube 06/21/18 Nystatin Powder [Mycostatin Powder] 1 applic TOPICAL BID@0600,2200 bottle 06/21/18 Polyethylene Glycol 3350 [Miralax] 17 gm PO DAILY@0800 #30 packet 06/21/18 Potassium Cloride Effervescent [Potassium Chl 25 Meq Eff (For Liquid)] 25 meq PO DAILYCM #30 tablet.eff 06/21/18 The following prescriptions were given: Carvedilol [Coreg (Beta Rosalind)] 12.5 mg PO BID@0800,1800 #60 tablet Hydrocortisone [Cortef] 5 mg PO QPM@1500 #30 tablet Hydrocortisone [Cortef] 10 mg PO DAILYCM #30 tablet Iron Polysaccharide Complex [Ferrex 150] 150 mg PO DAILYCM #30 capsule Polyethylene Glycol 3350 [Miralax] 17 gm PO DAILY@0800 #30 packet Potassium Cloride Effervescent [Potassium Chl 25 Meq Eff (For Liquid)] 25 meq PO DAILYCM #30 tablet.eff Primary Care Physician: Ashvin Cardenas MD [Primary Care Provider] - Please follow up with your Primary Care Physician in: 1 week. Test Results: Test results from this visit will be discussed in further detail at your follow- up appointment, if applicable. Please Follow Up With: damaris narvaez When: 2 weeks. Proposed Discharge Date: 06/28/18
--- NOTE | 2018-06-21 14:48 | PCM.DC.SUM ---
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) Hyponatremia (Acute) Hemorrhoids (Acute) Diverticulosis (Acute) - Secondary Discharge Diagnosis Chronic Problems (Last Updated 05/25/18 @ 10:47 by Ashvin Bowman DO) Adrenal insufficiency (Chronic) Hyperlipidemia (Chronic) Lupus (Chronic) Glaucoma (Chronic) Hypothyroidism (Chronic) Monoclonal gammopathies (Chronic) Lupus (Chronic) Hypertension (Chronic) Autoimmune hepatitis (Chronic) Hospital Course and Treatment Imaging Results: 06/15/18 16:35 Diet: Regular Diet Is pt able to select menu?: Yes Consultations 06/15/18 Consult: Onc/Wound/fur coat sewer Routine Comment: stage I to coccyx Operations: None Procedures: None Summary of Care Provided: The patient is a 78 year old Female with below past medical history hospitalized for acute GI bleeding secondary to right sided AVM, left sided diverticulosis, grade 3 hemorrhoids, complicated by ongoing fevers, adrenal insufficiency, hyponatremia, admitted to TCU with debility, here for rehabilitation, strengthening, prior to discharge home. Consider endocrinology referral for adrenal insufficiency. Discharge home with family. 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) Hyponatremia (Acute) Hemorrhoids (Acute) Diverticulosis (Acute) - Physical Exam Vital Signs Temp Pulse Resp BP Pulse Ox 98.6 F 90 18 136/63 H 96 06/20/18 16:00 06/20/18 16:00 06/20/18 16:00 06/20/18 16:00 06/20/18 16:00 Oxygen Delivery Method Room Air Weight: 44.679 kg Body Mass Index (BMI) 20.5 Intake and Output for Last 24 Hours 06/19/18 06/20/18 06/21/18 23:59 23:59 23:59 Intake Total 960 / 960 600 / 600 240 / 240 Balance 960 / 960 600 / 600 240 / 240 Discharge Diet: No Restrictions Discharge Activity: Return to Normal Activity, May Shower, Use Walker Weight Bearing Status: Weight bearing as tolerated Call your doctor if you observe: Fever of 101 or Higher, Inability to urinate, Inability to have a bowel movement, Shortness of breath, Chest pain, Uncontrolled pain Home Medications: Medications to take at Discharge Bimatoprost [Lumigan Opthalmic] 1 drp EACH EYE QHS 06/23/17 Brimonidine 0.15% [Alphagan P 0.15%] 1 drp EACH EYE BID 06/23/17 Budesonide [Budesonide EC] 3 mg PO DAILY 06/23/17 Hydroxychloroquine [Plaquenil] 200 mg PO DAILYCM 06/23/17 Levothyroxine Sodium [Synthroid] 75 mcg PO DAILY 06/23/17 Timolol 0.5% [Timoptic] 1 drp EACH EYE DAILY 06/23/17 Carvedilol [Coreg (Beta Rosalind)] 12.5 mg PO BID@0800,1800 #60 tablet 06/21/18 Hydrocortisone [Cortef] 5 mg PO QPM@1500 #30 tablet 06/21/18 Hydrocortisone [Cortef] 10 mg PO DAILYCM #30 tablet 06/21/18 Iron Polysaccharide Complex [Ferrex 150] 150 mg PO DAILYCM #30 capsule 06/21/18 Menthol/Lanolin/Calamine/Znox [Calmoseptine Ointment] 1 applic TOPICAL 0600,2200 tube 06/21/18 Nystatin Powder [Mycostatin Powder] 1 applic TOPICAL BID@0600,2200 bottle 06/21/18 Polyethylene Glycol 3350 [Miralax] 17 gm PO DAILY@0800 #30 packet 06/21/18 Potassium Cloride Effervescent [Potassium Chl 25 Meq Eff (For Liquid)] 25 meq PO DAILYCM #30 tablet.eff 06/21/18 Following Prescrptions Were Given to Patient: Carvedilol [Coreg (Beta Rosalind)] 12.5 mg PO BID@0800,1800 #60 tablet Hydrocortisone [Cortef] 5 mg PO QPM@1500 #30 tablet Hydrocortisone [Cortef] 10 mg PO DAILYCM #30 tablet Iron Polysaccharide Complex [Ferrex 150] 150 mg PO DAILYCM #30 capsule Polyethylene Glycol 3350 [Miralax] 17 gm PO DAILY@0800 #30 packet Potassium Cloride Effervescent [Potassium Chl 25 Meq Eff (For Liquid)] 25 meq PO DAILYCM #30 tablet.eff Other Amb Orders: Basic Metabolic Profile (BMP) Time Frame: 3 Days, Location: Laboratory Primary Care Physician: Ashvin Cardenas MD [Primary Care Provider] - Please follow up with your Primary Care Physician in: 1 week. Please Follow Up With: damaris narvaez When: 2 weeks. Disposition: Home Minutes spent on discharge:: 30 Patient Condition:: Stable Medical Necessity - Tobacco Use Smoking Status: Never smoker Tobacco Use: Non-smoker Meaningful Use Info Meaningful Use Diagnoses (Choose all that apply): None applicable
[2018-06-21] MEDS: Hydrocortisone 10 MG Tablet 5 MG PO (15:23)
[2018-06-21 16:00] VITALS: BP 145/96; PULSE 89; RESP 18; TEMP 36.6; O2SAT 98
[2018-06-22] MEDS: Levothyroxine 75 MCG Tablet PO (05:48)
[2018-06-22] MEDS: Nystatin Powder 15gm Bottle 1 APPLIC TOPICAL ×2 (05:50→19:47)
[2018-06-22] MEDS: Menthol/Lanolin/Calamine/Znox 113 GM Tube 1 APPLIC TOPICAL ×2 (05:50→19:48)
[2018-06-22 07:49] VITALS: O2SAT 97
[2018-06-22] MEDS: Timolol 0.5% 5ML OPTH.BTL 1 DRP EACH EYE (08:45)
[2018-06-22] MEDS: Carvedilol 12.5 MG Tablet PO ×2 (08:45→17:58)
[2018-06-22] MEDS: Budesonide 3 MG CAPSULE.EC PO (08:45)
[2018-06-22] MEDS: Hydrocortisone 10 MG Tablet PO (08:45)
[2018-06-22] MEDS: Iron Polysaccharide Complex 150 MG CAPSULE PO (08:45)
[2018-06-22] MEDS: Hydroxychloroquine 200 MG Tablet PO (08:45)
[2018-06-22] MEDS: BRIMONIDINE 0.15% 5 ML Bottle 1 DRP EACH EYE ×2 (08:46→19:46)
[2018-06-22] MEDS: Hydrocortisone 10 MG Tablet 5 MG PO (15:16)
[2018-06-22 16:00] VITALS: BP 124/65; PULSE 88; RESP 18; TEMP 36.9; O2SAT 98
[2018-06-22 19:54] VITALS: PULSE 80
[2018-06-23 05:58] LABS: Absolute Lymphocyte Count 2.22 X10^3/ul (0.83-4.51); Absolute Neutrophil Count 8.1 X10^3/uL (2.0-7.7); Basophil# 0.02 X10^3/uL; Basophil% 0.2 % (0-1); Eosinophil# 0.07 X10^3/uL; Eosinophils% 0.6 % (0-5); Hematocrit 34.5 % (37-47); Hemoglobin 11.1 g/dl (12.0-15.0); Lymphocyte # 2.22 X10^3/ul (4.0); Lymphocyte % 19.3 % (19-41); Mean Corp Hgb Conc 32.2 g/gl (32-36); Mean Corpuscular Hgb 31.4 pg (27.0-32.0); Mean Corpuscular Volume 97.5 fL (81-99); Mean Platelet Vol. 9.4 fl (6.2-12.0); Monocyte# 1.02 X10^3/uL; Monocyte% 8.9 % (0-10); Neutrophil # 8.05 X10^3/uL (2.7-7.7); Neutrophil % 69.9 % (47-70); Platelet Count 226 K/mm3 (150-450); RBC Distribution Width CV 17.4 % (11.6-14.6); RBC Distribution Width SD 61.3 fl (35.1-43.9); Red Blood Count 3.54 M/mm3 (4.2-5.4); White Blood Count 11.5 K/mm3 (4.4-11.0)
[2018-06-23 05:59] LABS: POSITIVE COUNT NO; POSITIVE DIFFERENTIAL NO; POSITIVE MORPHOLOGY NO
[2018-06-23] MEDS: Menthol/Lanolin/Calamine/Znox 113 GM Tube 1 APPLIC TOPICAL ×2 (06:04→20:03)
[2018-06-23] MEDS: Nystatin Powder 15gm Bottle 1 APPLIC TOPICAL ×2 (06:04→20:03)
[2018-06-23] MEDS: Levothyroxine 75 MCG Tablet PO (06:04)
[2018-06-23 06:20] LABS: Anion Gap 10 (5-15); BUN 16 mg/dL (7-18); BUN/Creat Ratio 27.4 RATIO (10-20); Calcium,Total 8.5 mg/dL (8.5-10.1); Chloride 103 mmol/L (98-107); Creatinine, Serum 0.58 mg/dL (0.55-1.02); EST Glomerular Filtration Rate 106 mL/min (>60); Est Glom Filt Rate - Afr Amer 128 mL/min (>60); Glucose 88 mg/dL (74-106); Potassium 3.9 mmol/L (3.5-5.1); Sodium Level 136 mmol/L (136-145)
[2018-06-23] MEDS: Iron Polysaccharide Complex 150 MG CAPSULE PO (08:23)
[2018-06-23] MEDS: Hydroxychloroquine 200 MG Tablet PO (08:24)
[2018-06-23] MEDS: Carvedilol 12.5 MG Tablet PO ×2 (08:24→17:37)
[2018-06-23] MEDS: Timolol 0.5% 5ML OPTH.BTL 1 DRP EACH EYE (08:24)
[2018-06-23] MEDS: Hydrocortisone 10 MG Tablet PO (08:24)
[2018-06-23] MEDS: Budesonide 3 MG CAPSULE.EC PO (08:24)
[2018-06-23] MEDS: BRIMONIDINE 0.15% 5 ML Bottle 1 DRP EACH EYE ×2 (08:25→20:02)
[2018-06-23 10:40] VITALS: PULSE 78
[2018-06-23] MEDS: Tuberculin,Purif.prot.deriv. 50 TU/ML Vial 5 ML ID (10:57)
--- NOTE | 2018-06-23 11:45 | NURSING ---
potassium 3.9 today, pt request potassium be stopped.
[2018-06-23] MEDS: Hydrocortisone 10 MG Tablet 5 MG PO (14:24)
[2018-06-23 15:51] VITALS: BP 128/68; PULSE 93; RESP 16; TEMP 36.8; O2SAT 97
[2018-06-24] MEDS: Levothyroxine 75 MCG Tablet PO (06:28)
[2018-06-24] MEDS: Nystatin Powder 15gm Bottle 1 APPLIC TOPICAL ×2 (06:29→20:42)
[2018-06-24] MEDS: Menthol/Lanolin/Calamine/Znox 113 GM Tube 1 APPLIC TOPICAL ×2 (06:29→20:41)
[2018-06-24] MEDS: Carvedilol 12.5 MG Tablet PO ×2 (09:34→17:11)
[2018-06-24] MEDS: Hydrocortisone 10 MG Tablet PO (09:34)
[2018-06-24] MEDS: Budesonide 3 MG CAPSULE.EC PO (09:34)
[2018-06-24] MEDS: Timolol 0.5% 5ML OPTH.BTL 1 DRP EACH EYE (09:35)
[2018-06-24] MEDS: Hydroxychloroquine 200 MG Tablet PO (09:35)
[2018-06-24] MEDS: BRIMONIDINE 0.15% 5 ML Bottle 1 DRP EACH EYE ×2 (09:35→20:46)
[2018-06-24] MEDS: Hydrocortisone 10 MG Tablet 5 MG PO (14:30)
[2018-06-24 15:35] VITALS: BP 129/62; PULSE 96; RESP 18; TEMP 36.3; O2SAT 97
[2018-06-25] MEDS: Levothyroxine 75 MCG Tablet PO (06:33)
[2018-06-25] MEDS: Menthol/Lanolin/Calamine/Znox 113 GM Tube 1 APPLIC TOPICAL ×2 (06:34→20:38)
[2018-06-25] MEDS: Nystatin Powder 15gm Bottle 1 APPLIC TOPICAL ×2 (06:34→20:39)
[2018-06-25] MEDS: Carvedilol 12.5 MG Tablet PO ×2 (09:04→17:51)
[2018-06-25] MEDS: Hydrocortisone 10 MG Tablet PO (09:04)
[2018-06-25] MEDS: Hydroxychloroquine 200 MG Tablet PO (09:04)
[2018-06-25] MEDS: BRIMONIDINE 0.15% 5 ML Bottle 1 DRP EACH EYE ×2 (09:05→20:40)
[2018-06-25] MEDS: Timolol 0.5% 5ML OPTH.BTL 1 DRP EACH EYE (09:05)
[2018-06-25] MEDS: Budesonide 3 MG CAPSULE.EC PO (09:05)
[2018-06-25] MEDS: Hydrocortisone 10 MG Tablet 5 MG PO (14:35)
[2018-06-25 15:23] VITALS: BP 130/51; PULSE 87; RESP 16; TEMP 36.3; O2SAT 98
[2018-06-26] MEDS: Levothyroxine 75 MCG Tablet PO (06:30)
[2018-06-26] MEDS: Nystatin Powder 15gm Bottle 1 APPLIC TOPICAL ×2 (06:30→21:34)
[2018-06-26] MEDS: Menthol/Lanolin/Calamine/Znox 113 GM Tube 1 APPLIC TOPICAL ×2 (06:31→21:34)
[2018-06-26] MEDS: Hydroxychloroquine 200 MG Tablet PO (08:11)
[2018-06-26] MEDS: Carvedilol 12.5 MG Tablet PO ×2 (08:12→17:32)
[2018-06-26] MEDS: Timolol 0.5% 5ML OPTH.BTL 1 DRP EACH EYE (08:12)
[2018-06-26] MEDS: Budesonide 3 MG CAPSULE.EC PO (08:12)
[2018-06-26] MEDS: BRIMONIDINE 0.15% 5 ML Bottle 1 DRP EACH EYE ×2 (08:15→21:04)
[2018-06-26] MEDS: Hydrocortisone 10 MG Tablet PO (08:15)
[2018-06-26 15:08] VITALS: BP 119/52; PULSE 91; RESP 20; TEMP 37.1; O2SAT 96
[2018-06-26] MEDS: Hydrocortisone 10 MG Tablet 5 MG PO (15:44)
--- NOTE | 2018-06-26 15:57 | CASEMGMT ---
Social Work Spoke with resident and resident family in room. Resident reporting to plan to discharge to home on 06/28/18. Resident aware that there are no further therapy recommendations for resident at this time and that resident will be provided with a home exercise program. Resident reporting to need a Kevin walker at time of discharge. Resident does not have a preference of [employer] to be utilized. Resident family is planning to provide transportation home for resident at time of discharge. Resident voicing no further needs at this time. Support given. Will make referral for walker once order is obtained. Proposed discharge date: 06/28/18 PLAN: Discharge to home alone with family to assist as needed. Trevin Cook, SOLAR MANAGER, [employer] DEVELOPER
[2018-06-27] MEDS: Levothyroxine 75 MCG Tablet PO (05:50)
[2018-06-27] MEDS: Nystatin Powder 15gm Bottle 1 APPLIC TOPICAL (05:52)
[2018-06-27] MEDS: Menthol/Lanolin/Calamine/Znox 113 GM Tube 1 APPLIC TOPICAL ×2 (05:52→20:54)
[2018-06-27] MEDS: Hydroxychloroquine 200 MG Tablet PO (08:27)
[2018-06-27] MEDS: Hydrocortisone 10 MG Tablet PO (08:27)
[2018-06-27] MEDS: Carvedilol 12.5 MG Tablet PO ×2 (08:27→17:53)
[2018-06-27] MEDS: Budesonide 3 MG CAPSULE.EC PO (08:27)
[2018-06-27] MEDS: Timolol 0.5% 5ML OPTH.BTL 1 DRP EACH EYE (08:28)
[2018-06-27] MEDS: BRIMONIDINE 0.15% 5 ML Bottle 1 DRP EACH EYE ×2 (08:28→20:48)
--- NOTE | 2018-06-27 09:24 | CASEMGMT ---
Social Work Order for walker faxed to [facility]. Walker to be delivered to resident room prior to resident discharge. Proposed discharge date: 06/28/18 PLAN: Discharge to home alone with family to check in with. EFE Chan, PHYSICAL THERAPY PROFESSOR
--- NOTE | 2018-06-27 10:40 | MDS.RN ---
Information for the mds was obtained from review of the clinical record, interview of resident, staff, and direct observation of resident's care.
[2018-06-27] MEDS: Hydrocortisone 10 MG Tablet 5 MG PO (14:56)
[2018-06-27 15:52] VITALS: BP 144/63; PULSE 100; RESP 16; TEMP 37.1; O2SAT 96
[2018-06-28] MEDS: Levothyroxine 75 MCG Tablet PO (05:56)
[2018-06-28] MEDS: Menthol/Lanolin/Calamine/Znox 113 GM Tube 1 APPLIC TOPICAL (05:57)
[2018-06-28] MEDS: Hydrocortisone 10 MG Tablet PO (08:51)
[2018-06-28] MEDS: Budesonide 3 MG CAPSULE.EC PO (08:51)
[2018-06-28] MEDS: Hydroxychloroquine 200 MG Tablet PO (08:51)
[2018-06-28] MEDS: Carvedilol 12.5 MG Tablet PO ×2 (08:51→17:45)
[2018-06-28] MEDS: Timolol 0.5% 5ML OPTH.BTL 1 DRP EACH EYE (08:51)
[2018-06-28] MEDS: BRIMONIDINE 0.15% 5 ML Bottle 1 DRP EACH EYE (08:52)
[2018-06-28] MEDS: Hydrocortisone 10 MG Tablet 5 MG PO (15:15)
[2018-06-28 15:27] VITALS: BP 128/60; PULSE 90; RESP 16; TEMP 36.7; O2SAT 98
[2018-06-28 20:00] VITALS: BP 151/62; PULSE 102; RESP 18; TEMP 36.9; O2SAT 98
--- OUTSIDE RECORDS SUMMARY | 2018-08-09 20:55 | XMS RPT_ITS | Summary of Care ---
:1940 Author Organization [facility] Address [address] [place] [address] Phone Care Team Providers Name Role Phone Kashif Veras MD Primary Care Provider Reason for Referral Consultation (Routine) Status Reason Specialty Diagnoses / Referred By Referred To Procedures Contact Contact New Request Endocrinology, Diagnoses Adrenal insufficiency Traci, Diabetes & Perico Cervantes MD Metabolism [address] [place] [address] (Routine) Status Reason Specialty Diagnoses / Procedures Referred By Contact Referred To Contact Lupillo Chairez MD [address] [place] [phone] (Routine) Status Reason Specialty Diagnoses / Procedures Referred By Contact Referred To Contact Lupillo Chairez MD [address] [place] [phone] (Routine) Status Reason Specialty Diagnoses / Procedures Referred By Contact Referred To Contact Lupillo Chairez MD [address] [place] [address] (Routine) Status Reason Specialty Diagnoses / Procedures Referred By Contact Referred To Contact Lupillo Chairez MD [address] [place] [phone] Radiology (Routine) Status Reason Specialty Diagnoses / Referred By Referred To Procedures Contact Contact New Request Procedures Perico Aviles MD [address] [place] [phone] Radiology (Routine) Status Reason Specialty Diagnoses / Referred By Referred To Procedures Contact Contact New Request Procedures Perico Aviles MD [address] [place], [place] [phone] (Routine) Status Reason Specialty Diagnoses / Referred By Referred To Procedures Contact Contact New Request Procedures Perico Aviles DVT/VTE RISK MD Helen ASSESSMENT [address] [place], [place] [phone] (Routine) Status Reason Specialty Diagnoses / Referred By Referred To Procedures Contact Contact New Request Procedures Perico Aviles PLATELET MONITORING MD Hleen PER PROTOCOL [address] [place] [phone] (Routine) Status Reason Specialty Diagnoses / Referred By Referred To Procedures Contact Contact New Request Procedures Perico Aviles DVT/VTE RISK MD Helen ASSESSMENT [address] [place], [place] [phone] (Routine) Status Reason Specialty Diagnoses / Referred By Referred To Procedures Contact Contact New Request Procedures Perico Aviles PLATELET MONITORING MD Helen PER PROTOCOL [address] [place] [phone] (Routine) Status Reason Specialty Diagnoses / Referred By Contact Referred To Contact Procedures [facility] [address] [place] [address] (Routine) Status Reason Specialty Diagnoses / Referred By Contact Referred To Contact Procedures [facility] [address] [place] [phone] Radiology (Emergency) Status Reason Specialty Diagnoses / Referred By Referred To Procedures Contact Contact New Request Procedures Rome Calhoun, ECG [address] [place] [address] Radiology (Emergency) Status Reason Specialty Diagnoses / Referred By Referred To Procedures Contact Contact New Request Procedures Rome Calhoun ECG [address] [place] [address] (Routine) Status Reason Specialty Diagnoses / Procedures Referred By Contact Referred To Contact Iván Ochoa MD [address] [facility] [address] [place], [place] [phone] (Routine) Status Reason Specialty Diagnoses / Procedures Referred By Contact Referred To Contact Iván Ochoa MD [address] [facility] [address] [place] [address] (Routine) Status Reason Specialty Diagnoses / Referred By Contact Referred To Contact Procedures [facility] [address] [place] [address] (Routine) Status Reason Specialty Diagnoses / Referred By Contact Referred To Contact Procedures [facility] [address] [place] [address] (Routine) Status Reason Specialty Diagnoses / Procedures Referred By Contact Referred To Contact Iván Ochoa MD [address] [facility] [address] [place], [place] [phone] (Routine) Status Reason Specialty Diagnoses / Procedures Referred By Contact Referred To Contact Iván Ochoa MD [address] [facility] [address] [place], [place] [phone] Radiology (Routine) Status Reason Specialty Diagnoses / Referred By Referred To Procedures Contact Contact New Request Procedures Rome Calhoun ECG [address] [place] [address] Radiology (Routine) Status Reason Specialty Diagnoses / Referred By Referred To Procedures Contact Contact New Request Procedures Rome Calhoun, ECG [address] [place] [phone] (Routine) Status Reason Specialty Diagnoses / Procedures Referred By Referred To Contact Contact New Request Procedures Rome Calhoun NO PHARMACOLOGICAL DVT MD Celso PROPHYLAXIS [address] [place] [phone] (Routine) Status Reason Specialty Diagnoses / Referred By Referred To Procedures Contact Contact New Request Procedures Rome Calhoun, DVT/VTE RISK MD ASSESSMENT [address] [place] [phone] (Routine) Status Reason Specialty Diagnoses / Procedures Referred By Referred To Contact Contact New Request Procedures Rome Calhoun NO PHARMACOLOGICAL DVT MD Celso PROPHYLAXIS [address] [place] [phone] (Routine) Status Reason Specialty Diagnoses / Referred By Referred To Procedures Contact Contact New Request Procedures Rome Calhoun, DVT/VTE RISK MD ASSESSMENT [address] [place] [phone] Radiology (Emergency) Status Reason Specialty Diagnoses / Referred By Referred To Procedures Contact Contact New Request Procedures Rome Calhoun ECG [address] [phone] Reason for Visit Auth/Cert Status Reason Specialty Diagnoses / Procedures Referred By Contact Referred To Contact Diagnoses GIB, diverticulosis, AVM's in cecum Encounter Details Date Type Department Care Team Description 05/25/2018 - Hospital Encounter R8E Rome Calhoun MD [address] [place] [phone] Acute blood loss 06/15/[address] Perico Aviles MD [address] [place] [phone] [place] [phone] Allergies Active Allergy Reactions Severity Noted Date Comments Azathioprine 05/26/2018 Nausea/vomiting/diarrhea Griseofulvin High 05/26/2018 Racing heart, severe headache Penicillins Hives Medium 06/21/2012 as of this encounter Medications Prescription Sig. Disp. Refills Start End Date Status Date budesonide 3 MG PO cap Take 3 mg by Active XR mouth daily every morning. levothyroxine take 75 mcg by Active (LEVOXYL) 75 MCG PO mouth daily. TABS Bimatoprost (LUMIGAN) Place 1 drop in Active 0.01 % OP SOLN both eyes daily. brimonidine 0.15 % Place 1 drop in Active Solution ophthalmic both eyes 2 solution times daily. Use in affected eye(s). hydroxychloroquine 200 Take 200 mg by Active MG Tab tablet mouth daily. timolol maleate 0.5 % Place 1 drop in Active Solution ophthalmic both eyes solution daily. carveDILOL 12.5 MG Tab Take 1 tablet 60 tablet 0 Active tablet by mouth every 8 12 hours. hydrocortisone 10 MG Take 1 tablet 30 tablet 0 Active Tab by mouth daily 8 every morning. hydrocortisone 5 MG Take 1 tablet 30 tablet 0 Active Tab by mouth every 8 24 hours. Skin Protectants, Apply to feet 113 g 0 Active Misc. (EUCERIN) Cream as needed for 8 cream dry skin witch steve-glycerin Apply 1 40 Each 0 Active Pads Application 8 topically as needed (hemrrhoids). polyethylene glycol Take 1 packet 30 packet 0 Active Pack packet by mouth daily. 8 melatonin 3 MG Tab Take 2 tablets 30 tablet 0 Active tablet by mouth at 8 bedtime as needed for Insomnia. potassium bicarbonate Take 2 tablets 60 tablet 0 Active 25 MEQ Tab Effer by mouth daily. 8 Ergocalciferol take 1.25 mg by 05/25/20 Discontinued (VITAMIN D2) 2000 mouth once a 18 UNITS PO TABS week. aspirin 325 MG PO TABS take 1 Tab by 120 Tab 0 05/30/20 Discontinued mouth daily. 2 18 metoprolol 50 MG PO Take one tab by 60 Tab 0 06/15/20 Discontinued tab regular release mouth every 12 2 18 hours. aspirin 81 MG Chew Tab Chew 81 mg 06/15/20 Discontinued chewable tablet daily. 18 as of this encounter Active Problems Problem Noted Date Adrenal insufficiency 06/13/2018 GI bleed 05/26/2018 GIB (gastrointestinal bleeding) 05/25/2018 Acute blood loss anemia 05/25/2018 Overview: Added automatically from request for surgery [id number] Autoimmune hepatitis 06/23/2012 Polymyalgia rheumatica 06/23/2012 Resolved Problems Problem Noted Date Resolved Date Abdominal pain, generalized 06/21/2012 06/26/2012 Febrile illness, acute 06/21/2012 06/26/2012 NSTEMI (non-ST elevated myocardial infarction) 06/21/2012 06/26/2012 Social History Tobacco Use Types Packs/Day Years Used Date Never Smoker Alcohol Use Drinks/Week oz/Week Comments No Sex Assigned at Date Recorded Not on file as of this encounter Last Filed Vital Signs Vital Sign Reading Time Taken Blood Pressure 144/71 06/15/2018 11:38 AM EST Pulse 84 06/15/2018 11:38 AM EST Temperature 37.2 ??C (98.9 ??F) 06/15/2018 11:38 AM EST Respiratory Rate 16 06/15/2018 11:38 AM EST Oxygen Saturation 99% 06/15/2018 11:38 AM EST Inhaled Oxygen Concentration - - Weight 43.8 kg (96 lb 9.6 oz) 06/14/2018 4:28 AM EST Height 147.3 cm (4' 9.99) 05/30/2018 11:44 AM EST Body Mass Index 20.19 06/14/2018 4:28 AM EST in this encounter Functional Status Functional Status Response Date of Assessment Are you deaf or do you have serious difficulty hearing? No 05/30/2018 Are you blind or do you have serious difficulty seeing, No 05/30/2018 even when wearing glasses? Do you have serious difficulty walking or climbing stairs No 05/30/2018 (5 years or older)? Do you have difficulty dressing or bathing (5 yrs or No 05/30/2018 older)? Because of a physical, mental, or emotional condition, do No 05/30/2018 you have difficulty doing errands alone such as visiting a doctor's office or shopping (5 yrs or older)? Cognitive Status Response Date of Assessment Because of a physical, mental, or emotional condition, do No 05/30/2018 you have serious difficulty concentrating, remembering, or making decisions (5 yrs or older)? as of this encounter Discharge Summaries Joshua Wiseman, DO - 06/15/2018 10:42 AM ESTFormatting of this note may be different from the original. Discharge Summary Name: Pamela Espinoza Age: 78 y.o. Birthday: 1940 Admit Date: 05/25/2018 9:27 PM Discharge Date: 06/15/18 Discharge Time: Afternoon Discharge Unit: E Admission Information Admitting Physician: Rome Calhoun MD Discharge Information Discharge Physician: Perico Aviles MD Active Hospital Problems Diagnosis ??? Acute blood loss anemia ??? Adrenal insufficiency ??? GI bleed ??? GIB (gastrointestinal bleeding) Resolved Hospital Problems Diagnosis Date Resolved No resolved problems to display. RESULTS / STUDIES PENDING AT DISCHARGE: None FURTHER RECOMMENDATIONS: - Follow up with endocrinology for further management of adrenal insufficiency - Metoprolol switched to carvedilol 12.5 BID for better BP control, would recommend continued monitoring of BP and adjustment as appropriate - Asa held on discharge due to history of GI bleeding, consider re-challenging at some point given hx of atrial fibrillation - Would recommend monitoring of CBC weekly to ensure stable hemoglobin. DISCHARGE LETTER: Dear Doctors, I recently had the opportunity to care for Pamela Espinoza during her recent hospital stay at [facility]. Pamela Espinoza, is a 78 y.o. female with a past medical history significant for prior GI bleed w/ R sided AVMs, diverticulitis, HTN, HLD, hypothyroidism, autoimmune hepatitis, and lupus who presented at the time of admission with rectal bleeding. The following describes her hospital course. The patient initially presented for further evaluation of acute blood loss anemia due to GI bleed. She reportedly had a colonoscopy prior to transfer which revealed right sided AVMs and diverticulitis,along with stage III hemorrhoids. She was reportedly told that she may need aggressive intervention such as surgery. On arrival here she continued to have some bleeding and dropping hemoglobin, so she underwent repeat endoscopy which was complicated by right sided microperforation. No AVM was revealedon this colonoscopy, however diverticulosis and grade II hemorrhoids were noted. The hemorrhoids were thought to be the source of the hematochezia at this time. Surgery was consulted regarding the microperforation and recommended conservative management. She was given a course of ciprofloxacin and metronidazole for this, however she was unable to tolerate PO intake, particularly large pills, so she required the entire course IV. She did have intermittent fevers throughout the admission, however she has a known history of lupus, and it was ultimately noted that the fevers correlated with hand swelling that the patient experiences intermittently at home. Infectious work up was repeated with several of the fevers and was negative. She was noted to have hyponatremia at times. She appeared euvolemic and urine studies suggested endocrine abnormality as the potential cause. An AM cortisol was tested and was 1.5, and only increased to 10 with ACTH stim test, so she was started on hydrocortisone 10 mg qAM and 5 mg qPM for possible adrenal insufficiency with plans to follow up with endocrinology outpatient for repeat ACTH stim test and possible discontinuation of hydrocortisone if negative. Interestingly, her PO intake improved significantly with the initiation of hydrocortisone, and her hyponatremia improved. Patient became somewhat more hypertensive after starting hydrocortisone, so her home metoprolol was transitioned to carvedilol 12.5 mg BID. We would recommend close monitoring of her BP following discharge as this change may not be necessary snf. We additionally recommended that the patient stop taking aspirin altogether due to her risk of GI bleeding, however this could be re-addressed at some point with her PCP if the indication for ASA is strong. Would also recommend that the patient have her hgb checked periodically. Physical Exam on the Date of Discharge: Temp: [98.4 ??F (36.9 ??C)-99.2 ??F (37.3 ??C)] 98.9 ??F (37.2 ??C) Pulse (Heart Rate): [84-106] 84 Resp Rate: [16-18] 16 BP: (137-161)/(63-74) 144/71 O2 Sat (%): [96 %-99 %] 99 % Body mass index is 20.19 kg/m??. Wt Readings from Last 1 Encounters: 06/14/18 43.8 kg (96 lb 9.6 oz) Gen: NAD, A&Ox4, good eye contact, well appearing, responds appropriately HEENT: atraumatic, normocephalic, face symmetric, sclerae anicteric, mucous membranes moist, Resp: no visible chest wall deformities, non-labored breathing, bibasilar crackles CV: regular rate, systolic murmur, normal S1/S2, GI: soft, mild tenderness to palpation in RUQ, non-distended, NABS, no rebound or guarding Ext: warm and well perfused, pulses intact, no LE edema, no clubbing or cyanosis; R&LUE have diffuse bruising. RUE has non erythematous swelling at site of extravasation. Skin: intact, no rashes/bruises/ulcers Neuro: A&Ox4, speech fluent, CN II-XII grossly intact, no focal deficits on exam Psych: Appropriate mood and affect for clinical situation Upon discharge the patient's code status FULL It has been my pleasure participating in this patient's care. Please contact me with any questions or concerns regarding her hospital stay. Sincerely, Joshua Wiseman, PGY - 3 Dictated under attending physician Perico Aviles MD Division of Hospital Medicine CONSULTS DURING ADMISSION: IP CONSULT TO GASTROENTEROLOGY IP CONSULT TO SURGERY - GENERAL (EMERGENT) IP CONSULT TO ENDOCRINOLOGY - NON DIABETES IP CONSULT TO PERIPHERAL IV TEAM IP CONSULT TO PERIPHERAL IV TEAM IP CONSULT TO PERIPHERAL IV TEAM IP CONSULT TO WOUND / OSTOMY NURSING TEAM IP CONSULT TO OCCUPATIONAL THERAPY IP CONSULT TO PHYSICAL THERAPY IMAGING / PROCEDURES / RESULTS: VASC DUPLEX VENOUS EXTREMITY UPPER RIGHT Final Result XR CHEST AP PORTABLE Final Result IMPRESSION: Decreased left pleural effusion with improved left basilar atelectasis. ABDOMEN/PELVIS WITH CONTRAST Final Result IMPRESSION: 1. High riding cecum with some wall thickening along the ileocecal junction along the medial wall of the cecum. Previously seen thickening of the wall and air pockets in the cecal wall appear to have resolved. No free intraperitoneal air to suggest colonic perforation. Some wall thickening along the ileocecal junction is nonspecific. 2. Colonic diverticulosis. Nonobstructive bowel gas pattern with no gross free air. 3. Hepatic steatosis. Stable enhancing focus in the segment 4 of the liver likely a shunt or hemangioma 4. Postcholecystectomy status. 5. Stable pancreatic calcifications with heterogeneity and fatty replacement of the pancreatic parenchyma likely related to prior pancreatitis. 6. Slightly enlarged uterus for the patient's age. Small enhancing focus in the endometrium is indeterminate. Pelvic floor descent with mild cystorectocele. 7. Stable hiatal hernia with a large duodenal diverticulum Hepatic trauma grade: N/A Spleen trauma grade: N/A Kidney trauma grade: N/A CARDIOGRAM Final Result CT ABDOMEN/PELVIS WITH CONTRAST Final Result IMPRESSION: 1. Cecal pole is slightly high riding in the right mid abdomen. Focal thinning with defect in the posterior ascending colonic wall just superior to the ileocecal valve demonstrated with some adjacent fluid and stranding/inflammation in the pericolonic fat suggesting microperforation. This may be at site of polyp removal although polyp removed from this area was only 3 mm. No gross pneumoperitoneum identified though. 2. No loculated rim-enhancing or air-containing collection. Normal appendix. 3. There is some fluid and air distention of the proximal colon. Remainder of the colon is fairly collapsed. Wall appears prominent although this may be due to degree of distention. Extensive colonic diverticulosis present with no evidence of acute diverticulitis. 4. Enhancing lesion in the right dome likely perfusional versus benign lesion such as focal nodular hyperplasia. 5. Cholecystectomy. Biliary dilatation likely secondary to same. 6. Hiatal hernia. Large duodenal diverticulum. Hepatic trauma grade: N/A Spleen trauma grade: N/A Kidney trauma grade: N/A Should you require further information or copies of results or reports please contact [employer] @ [phone] LABS AT TIME OF DISCHARGE: Lab Results Component Value Date SODIUM 135 06/15/2018 POTASSIUM 3.0 (L) 06/15/2018 MAGNESIUM 1.8 06/15/2018 BUN 8 06/15/2018 CREATSERUM 0.44 (L) 06/15/2018 Lab Results Component Value Date WBC 8.24 06/15/2018 HGB 9.0 (L) 06/15/2018 PLATELET 277 06/15/2018 INR 1.1 06/15/2018 Lab Results Component Value Date HGBA1C 5.1 06/21/2012 Lab Results Component Value Date AST 31 05/26/2018 ALT 23 05/26/2018 ALKPHOS 47 05/26/2018 BILITOTAL 1.1 05/26/2018 BILIDIRECT 0.1 05/26/2018 ALBUMIN 2.6 (L) 05/26/2018 PATIENT'S MEDICAL HOME AT DISCHARGE: [address] / [place] [address] MEDICATIONS: Medication List for when you go home STOP taking these medications aspirin 81 MG CHEW chewable tablet metoprolol 50 MG tab regular release Commonly known as: LOPRESSOR TAKE these medications brimonidine 0.15 % SOLN ophthalmic solution Place 1 drop in both eyes 2 times daily. Use in affected eye(s). Commonly known as: ALPHAGAN budesonide 3 MG cap XR Take 3 mg by mouth daily every morning. Commonly known as: ENTOCORT EC carveDILOL 12.5 MG TABS tablet Take 1 tablet by mouth every 12 hours. Commonly known as: COREG eucerin CREA cream Apply to feet as needed for dry skin * hydrocortisone 10 MG TABS Take 1 tablet by mouth daily every morning. Commonly known as: CORTEF * hydrocortisone 5 MG TABS Take 1 tablet by mouth every 24 hours. Commonly known as: CORTEF hydroxychloroquine 200 MG TABS tablet Take 200 mg by mouth daily. Commonly known as: PLAQUENIL LEVOXYL 75 MCG TABS tablet take 75 mcg by mouth daily. Generic drug: levothyroxine LUMIGAN 0.01 % SOLN Place 1 drop in both eyes daily. Generic drug: bimatoprost melatonin 3 MG TABS tablet Take 2 tablets by mouth at bedtime as needed for Insomnia. polyethylene glycol PACK packet Take 1 packet by mouth daily. Commonly known as: MIRALAX potassium bicarbonate 25 MEQ TBEF Take 2 tablets by mouth daily. Commonly known as: KLYTE timolol maleate 0.5 % SOLN ophthalmic solution Place 1 drop in both eyes daily. Commonly known as: TIMOPTIC witch steve-glycerin PADS Apply 1 Application topically as needed (hemrrhoids). Commonly known as: TUCKS * The same medication is listed twice. Please discuss with your provider. Ashvin Cardenas MD [address] [facility] [address] It is recommended that you follow up with your primary care physician to be seen within 2 weeks after your release from the retirement facility. Division of Endocrinology [address] [facility] [address] [facility] [phone] On 07/15/2018 at 2:00pm with Dr.Paul Tomlinson. Other [facility] [address] [facility] [address] You will be discharged to the Transitional Care Unit for rehab afer your hospital stay. # [phone]. Associated attestation - Perico Aviles MD - 06/15/2018 1:11 PM EST Attending attestation: I saw and evaluated the patient independently. I discussed the discharge with the residents. I have reviewed the resident note and agree with the findings and discharge as documented. In short, Ms Espinoza was admitted with GI bleed. She underwent colonoscopy complicated by a microperforation. She was placed on IV antibitiocs and on repeat CT that area had improved. She was also found to have adrenal insufficiency and was placed on hydrocortisone. She has SLE and has pain in the right hand associated with low grade temps which is from her lupus. She is unable to take NSAIDs at This time due to recent gi bleeding. Cont tylenol prn. Time spent on the discharge of this patient: 45minutes Date of service: 06/15/2018 Perico Aviles MDin this encounter Discharge Instructions Joshua Wiseman DO - 06/03/2018Formatting of this note may be different from the original. Metoprolol was recently switched to carvedilol for better BP control - Would recommend close monitoring of BP and possible switch back to metoprolol if low Patient initially presented with GI bleeding, then suffered a microperforation from her colonoscopy - We recommend holding any anticoagulants or antiplatelets on discharge, including 81 mg aspirin - Given history of atrial fibrillation, could consider re-initiating aspirin at some point, however would monitor off this for now Follow up with endocrinology for further management of adrenal insufficiency 2 TIMES DAILY Until Specified Routine Hospital Performed Order Questions Question Answer Comment Location: sacral spine ?? Comments Please apply Critic Aid moisture barrier ointment twice daily and as needed to coccyx and buttocks. 2 TIMES DAILY Until Specified Routine Hospital Performed Order Questions Question Answer Comment Location: sacral spine ?? Comments Please apply Critic Aid moisture barrier ointment twice daily and as needed to coccyx and buttocks. Activity: Please follow these instructions: ?? You may perform the following activities: -Resume your usual activities without restrictions. Diet: Your doctor has recommended that you follow these diet instructions at home. Refer to the patient education materials you received during your hospital stay. If you would like more nutrition counseling, ask your doctor about making an appointment with an outpatient dietitian. ?? Regular Diet to help you maintain your health and control your weight. Choose healthy fats and oils such ascanola or olive oils, and good sources of fiber and carbohydrates. Choose lean meats or vegetables proteins. Avoid adding salt to your foods. Increase daily intake of fruits and vegetables. Miscellaneous Education ?? Follow Up Appointment It is your responsibility to check that this appointment is covered by your insurance carrier. If the appointment requires pre-authorization or doctor referral, you must bring that paperwork to your visit. You can verify if the doctor you are scheduled to see is a participant in your insurance plan by calling your carrier. If your insurance will not cover this visit or you have no insurance coverage,you will be required to make a down payment at the time of service. ?? Discharge Instructions You will be given two copies of this discharge instruction. Keep one copy with you. This document has a copy of your current medicines. Take one copy to all of your doctor appointments. If medicines are added or deleted at your doctor visits, update this document. If you are readmitted to the hospitalgive a copy to the admitting doctor so he or she will know your current medicines. Additional Contacts: ?? Evening and Weekend Contacts If you have questions or concerns during evening, weekend, or holiday hours, please call: -[facility] [employer] ref[employer] operator vapor recovery unit at [phone]. -[facility] refinery operator vapor recovery unit at [phone] Ask the refinery operator vapor recovery unit to page the on-call doctor for Medicine 5, the service that was responsible for your care while you were in the hospital. If you having an emergency, call 911. Bindu Quevedo RN/BOOKER Medicine The following attachments cannot be sent through Care Everywhere.Diet: High Potassium, Discharge Instructions (Finnish)Diet, High-Potassium (Finnish)in this encounter Progress Notes Gregoria Acosta OTA - 06/14/2018 4:24 PM ESTFormatting of this note may be different from the original. Occupational Therapy Treatment / Progress Note Per the supervising Occupational Therapist the frequency and recommendations are as follows: Frequency: 5 x per week Discharge Recommendations: Pamela Espinoza would benefit from continued OT services with 24 hour supervision needed for self care and safety needs. 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 Pt received semi-supine in bed and agreeable to therapy. Cognitive Status Examination Orientation Status (Cognition) oriented x 3 Level of Consciousness alert;cooperative Able to Follow Commands (Communication) success, 1-step commands Personal Safety and Judgment intact Hearing no gross deficits noted Vision no gross deficit noted Speech no gross deficits noted General Pain Documentation (Adult, OB, Peds) Presence of Pain complains of pain/discomfort Pain Location hand, right (arthritis flare up) Pain Management Interventions activity minimized Select Pain Scale (pt did not rate) Edema Edema present Location hand, Right Balance Skills Assessment, Rehab Eval Sitting Balance: Static good balance Jeu-Tq-Bosfe Balance fair balance Standing Balance: Static (fair+) Mobility Additional Documentation Ambulation household distance hand held assist x1. Bed Mobility Skill: Supine to Sit, Rehab Eval Level of Lipscomb: Supine/Sit hand held assist Physical Assist/Nonphysical Assist: Supine/Sit set-up required;1 person assist Transfer Skill: Sit To Stand, Rehab Eval Lipscomb (Sit-Stand Transfers) minimum assist (75% patient effort) Physical Assist/Nonphysical Assist: Sit/Stand set-up required;1 person assist Weight-Bearing Restrictions: Sit/Stand full weight-bearing Assistive Device For Transfer: Sit/Stand (hand held assist) CURRENT AM-[facility] Daily Activity Inpatient Short Form Putting on/Taking Off Lower Body Clothing 3 - A Little Assistance Bathing 3 - A Little Assistance Toileting 2 - A Lot of Assistance Putting on/Taking Off Upper Body Clothing 2 - A Lot of Assistance Grooming 2 - A Lot of Assistance Eating 4 - No Assistance CURRENT AM-[facility] Activity Raw Score 16 CURRENT AM-[facility] Activity Functional Limitation/Modifier 53.32% Currently Impaired in Daily Activity -CK Assessment VTE Prevention/Management Off - Other (See comments for NOT wearing ordered VTE mechanical prophylaxis) (ambulating) Assessment Narrative Pt follows commands with 100% accuracy and requires hand held/minimum assist for mobility/exercises. Pt endurance fair this date. Pt requires further OT to increase strength/endurance to complete ADL routines for bathing/dressing and IADL's. Clinical Impression Patient Instruction Pt instructed in role of OT and plan of care including safety judgement, adaptive techniques as needed and OT goals. OT Therapy Completed Yes OT Therapies Still to Complete 2 Today's Treatment Included Supine to sit with HOB slightly elevated, cues for sequencing of transferand hand placement throughout progression of transfer, pt indicated her daughter would assist Transfer x1 EOB with pt's daughter assisting minimally Ambulation hand held assist x1 to transfer to armed chair Pt pain limited and not able to use Right hand/wrist secondary to arthritis flare-up with swelling Seated in armed chair, pt completed eating/self-feeding for medication management per RN followed byactive ROM/yellow theraband exercises for bilateral UE with theraband modified for wristlet on RightUE to avoid pain in Right hand/wrist, pt completed ABduction/ADDuction, elbow//shoulder flexion/extension x10 repetitions, cues/assist for technique for elbow flexion and pt completed active ROM for Right wrist flexion/extension/rotation/deviation and pronation/supination, therapist reviewed all exercises with pt per handout and pt provided with handout for exercises Pt left in room seated in armed chair with daughter in room with all needs met. Call button too far to reach but daughter available to monitor pt needs (daugther is staying overnight in room). Continue care plan yes Plan Plan Narrative OT will continue plan of care to increase performance of basic ADL's. Therapist Information License # [id number] Pager # [phone] Charges: Sheila TPx1 Treatment: 4:24-4:49pm = 25 minutes Gregoria AVILES License #[id number] Pager #[phone] I have read and agree to the above treatment session. Wing Colby OTR/L License # [id number] Pager # [phone] Upon discontinuation of Acute Care Occupational Therapy Services or patient discharge from the hospital this note represents the current Occupational Therapy Discharge Summary. Wolf Gomez LISWS - 06/14/2018 9:35 AM ESTFormatting of this note may be different from the original. Arrangements completed for pt to discharge to facility of choice tomorrow between 11:30-12:30. Ambulance sheet given to unit tender, who agrees to print transfer report. RN updated on discharge plan.Pt/family aware/agreeable. Social work will remain available to assist as needed. Please contact SW for assistance as needed (8:00am - 4:30pm): Chapito/Efra/HUMBERTO -- phone [phone] Gregg/ADRIENNE -- phone [phone] 06/13/18 9381 06/14/18 0951 Final Discharge Planning Patient Discharged To: (Facility LOC/Home Service(s) Care Home Facility -- Community Agency Name(s) [facility] (admissions is [facility] [phone]) -- -- -- Transport Request Dispatcher Called -- Yes Name of Transport Company -- [employer] (ALS/[facility] transport) ([phone]) ETA of Ambulance -- 11:30-12:30 on Sat., 06/15 MARINA Phelan, KRISHNA-S Social Work Float [phone] Marleny Quevedo RN - 06/14/2018 8:32 AM [id number] Progress Note Anticipated Discharge Plan as of 06/14/2018 8:32 AM Expected Discharge Date: 06/15/2018 Anticipated discharge disposition: Care Home Facility Barriers to Discharge Barriers to Discharge: Complex Disposition, Facility (SNF/Rehab), Patient/Family Barriers to Discharge Comment : Awaiting bed available to facility of choice per patient and family that will not have an open bed until 06/15; cont current medical mgmt; discharge planned for tomorrow 06/15 Medical Milestone Medical Milestone : no further bleeding noted; po intake improving Final Discharge Planning and Transportation Final Discharge Planning Patient Discharged To: (Facility LOC/Home Service(s): Care Home Facility Community Agency Name(s): [facility] (admissions is [facility] [phone]) Plan Plan: home with follow up plan per medicine team Patient/Family In Agreement With Plan: yes Shale Planer Operator Helper Called: Yes Name of Transport Company: [employer] (ALS/[facility] transport) ([phone]) ETA of Ambulance: 11:30-12:30 on Sat., 06/15 Mode of Transfer: private vehicle Accompanied By: family member Bindu Quevedo RN/[facility] Medicine VqivdknxkLupillo Chairez MD - 06/14/2018 8:08 AM ESTFormatting of this note may be different from the original. Internal Medicine Daily Progress Note Patient: Pamela Espinoza, 1940, [id number] Physician: Lupillo Chairez MD, GM5 Service Subjective/Interval History: Vitals and nursing notes reviewed for the past 24 hours. Afebrile overnight, Hgb stable. Swelling onarms are gone. Stool is more well formed. Medications: Continuous: Scheduled: bimatoprost 1 drop QHS brimonidine 1 drop BID budesonide 3 mg QAM heparin 5,000 Units Q8H hydrocortisone 10 mg QAM hydrocortisone 5 mg Q24H hydroxychloroquine 200 mg Daily levothyroxine 75 mcg Before BKF metoprolol 25 mg Q12H polyethylene glycol 17 g Daily timolol maleate 1 drop Daily PRN:acetaminophen OR acetaminophen, alum/mag hydrox.-simethicone, benzocaine-menthol, calcium carbonate antacid, dextrose, eucerin, melatonin, ondansetron 4mg/2ml OR ondansetron, oxyCODONE, prochlorperazine OR prochlorperazine, sodium chloride 0.9%, witch steve-glycerin Objective: Vitals: 06/14/18 0753 BP: 168/76 Pulse: 88 Resp: 16 Temp: 98.6 ??F (37 ??C) O2 Device: room air (06/13/18 2244) Flow (L/min): 0 (06/10/18 0800) Gen: NAD, A&Ox4, good eye contact, well appearing, responds appropriately HEENT: atraumatic, normocephalic, face symmetric, sclerae anicteric, mucous membranes moist, Resp: no visible chest wall deformities, non-labored breathing, bibasilar crackles CV: regular rate, systolic murmur, normal S1/S2, GI: soft, mild tenderness to palpation in RUQ, non-distended, NABS, no rebound or guarding Ext: warm and well perfused, pulses intact, no LE edema, no clubbing or cyanosis; R&LUE have diffuse bruising. RUE has non erythematous swelling at site of extravasation. Skin: intact, no rashes/bruises/ulcers Neuro: A&Ox4, speech fluent, CN II-XII grossly intact, no focal deficits on exam Psych: Appropriate mood and affect for clinical situation Body mass index is 20.19 kg/m??. Data Review: WBC/Hgb/Hct/Plts: 8.98/9.3/28.9/300 (06/14 322) Na/K+/Phos/Mg/Ca: 136/3.2/--/1.8/-- (06/14 322) Bun/Creat/Cl/CO2/Glucose: 6/0.51/104/21/87 (06/14 322) Ptt/Pt/Inr: 34.9/14.5/1.1 (06/14 322) Lab Results Component Value Date ALT 23 05/26/2018 AST 31 05/26/2018 ALKPHOS 47 05/26/2018 BILITOTAL 1.1 05/26/2018 BILIDIRECT 0.1 05/26/2018 EKG: NSR with rate of 86 CT A/P 06/07: IMPRESSION: 1. ??High riding cecum with some wall thickening along the ileocecal junction along the medial wall of the cecum. Previously seen thickening of the wall and air pockets in the cecal wall appear to haveresolved. No free intraperitoneal air to suggest colonic perforation. Some wall thickening along theileocecal junction is nonspecific. 2. ??Colonic diverticulosis. Nonobstructive bowel gas pattern with no gross free air. 3. ??Hepatic steatosis. Stable enhancing focus in the segment 4 of the liver likely a shunt or hemangioma 4. ??Postcholecystectomy status. 5. ??Stable pancreatic calcifications with heterogeneity and fatty replacement of the pancreatic parenchyma likely related to prior pancreatitis. 6. ??Slightly enlarged uterus for the patient's age. Small enhancing focus in the endometrium is indeterminate. Pelvic floor descent with mild cystorectocele. 7. ??Stable hiatal hernia with a large duodenal diverticulum Assessment/Plan: Pamela Espinoza is a 78 y.o. female with a history of prior GI bleed w/ R sided AVMs, diverticulitis,HTN, HLD, hypothyroidism, autoimmune hepatitis, and lupus who presents with as a transfer from [facility] for evaluation of rectal bleeding. HTN: Increased metoprolol to home dose of 50 mg BID then changed to carvedilol 12.5 mg BID for better BP control. Adrenal Insufficiency: Extensive history of autoimmune diseases (SLE, AIH, PMR), ACTH stim test on 06/09 showed Cortisol increase from 1.54 to 10.81. No recent steroid use but was on pred for > 1 year with PMR in the distant past. Endocrine consulted - Follow-up ACTH level - Continue on Hydrocortisone replacement, 10 mg in AM and 5 mg at 3PM - Follow-up with endocrinology outpatient for ACTH stim test, endocrine will conduct at their office. She has follow-up with the fellow on 07/15/18. Ongoing fevers: CT AP improved, so abdominal source is not likely. UA unremarkable, CXR improved, BCx's NG, could be secondary to autoimmune disease like lupus as her joints were hurting more at those times. Erythema on right arm demarcated and no longer present. - Continue to monitor Hypokalemia: Daily K supplements necessary, may need daily K replacement as outpatient. Will provideinformation on high K diet. Colonic microperforation, resolved: Overnight 05/28-05/29, after colonoscopy on 05/28, the patient was septic with high fever.CT A/P showed microperforation. Surgery was consulted and recommended no surgical intervention needed but that they would continue to follow along. CTAP 06/07 demonstrates improvement. S/p 2 weeks of Cefepime/flagyl -> cipro/flagyl ended on 06/11. - Continue to monitor Hyponatremia, resolved: Patient has been hyponatremic on and off throughout the admission. She appears euvolemic. Urine osms 268, urine sodium 62, Cortisol decreased, TSH normal, Likely secondary to adrenal insufficiency. Swelling in RUE and LUE, improving: Initially had a PIV - Duplex of RUE showed acute superficial thrombus is noted in the right basilic vein from the mid forearm to the antecubital fossa. - Warm compress Nausea / Vomiting, improved - likely 2/2 to perforation and adrenal insufficiency - Improved with changing anti-emetic regimen. Zofran with Compazine PRN as compazine is too sedating, QRS is 472 on 06/04 Cough: ongoing, infrequent with post-tussive emesis -Cepacol cough drops Acute Blood loss anemia 2/2 GI Bleed: R sided AVMs, Stage III hemorrhoids, diverticuli noted in colonoscopy from outside hospital. Hgb dropping from 13.5 down to 9.0 over 3 days. Pt reports BRBPR with clots before admission. Pt remains HD stable. Colonoscopy at [facility] showed hemorrhoids but no AVM. GI was consulted - Resolved at this time - Transfuse if Hb <7, type and cross ?? Systolic Murmur: Pt did not report knowing of this in the past. Her last Echo was in 2011. She also reports that she was possibly told once (in [place]) that she has AFib We will repeat echo and get anEKG (did not show any Afib). -TTE 05/30 - LVEF preserved 60%, No , moderate AV regurgitation, mld-moderate MVR -EKG w/ NSR at a rate of 86 ?? Autoimmune Hepatitis: -Continue budesonide ?? Systemic Lupus Erythematosus: -Continue plaquenil ?? Glaucoma -Continue timolol, xalatan, and alphagan ?? Hypothyroidism -Continue synthroid FEN/GI: DIET REGULAR Ppx: SCDs Dispo: Admission on GM5 Code Status: Full Code Signed, Lupillo Chairez MD PGY-1, Resident, Department of Internal Medicine [facility] [phone] Associated attestation - Perico Aviles MD - 06/14/2018 8:37 PM EST Attending attestation: I saw and evaluated the patient independently. I discussed the plan of care with the residents. I have reviewed the resident note and agree with the findings and plan of care as documented. In short, Ms Espinoza is doing well today, hand pain somewhat improved Microperf - stable AI - Cont cortisone Date of service: 06/14/2018 Avril Sarah Jamie, LISWS - 06/13/2018 4:54 PM ESTPlacement Plan Expected Discharge Date: 06/15/2018 Referred Level of Care: SNF/Transitional Care Unit Barriers: bed availability Current Referrals and Status 1. [facility] -- Accept, bed available Friday 06/15 early afternoon SW met with pt and daughter throughout the day to discuss discharge plans. [facility] (pt's spouse is also in rehab at this TCU). Fortunately, there will be a bed available at the preferred facility this Sunday per Debbie in admissions [phone]. SW updated pt, family, and medical team on same. Will work on scheduling transportation late Sunday morning. MARINA Phelan, ENOLOGIST-S Social Work Float [phone] Gregoria Acosta OTA - 06/13/2018 3:48 PM ESTOccupational Therapy Acute Care Attempt Note Attempt made to see pt in the afternoon but SW entering room. Second attempt will be made later in the day as schedule permits. Charges: None Gregoria AVILES License #[id number] Pager #[phone] Associated attestation - Wing Colby OT - 06/14/2018 7:42 AM CEE have read and agree to the above attempt of therapy session. Wing Colby OTR/L License # [id number] Pager # [phone] Lupillo Chairez MD - 06/13/2018 2:45 PM ESTFormatting of this note may be different from the original. Internal Medicine Daily Progress Note Patient: Pamela Espinoza, 1940, [id number] Physician: Lupillo Chairez MD, GM5 Service Subjective/Interval History: Vitals and nursing notes reviewed for the past 24 hours. She has decreased redness in her stools thimorning. She has knuckle swelling with her T 99.7. Her appetite has improved. Her swelling on her arms has improved. Medications: Continuous: Scheduled: bimatoprost 1 drop QHS brimonidine 1 drop BID budesonide 3 mg QAM heparin 5,000 Units Q8H hydrocortisone 10 mg QAM hydrocortisone 5 mg Q24H hydroxychloroquine 200 mg Daily levothyroxine 75 mcg Before BKF metoprolol 25 mg Q12H polyethylene glycol 17 g Daily potassium chloride 10 mEq Q2H timolol maleate 1 drop Daily PRN:acetaminophen OR acetaminophen, alum/mag hydrox.-simethicone, benzocaine-menthol, calcium carbonate antacid, dextrose, eucerin, melatonin, ondansetron 4mg/2ml OR ondansetron, oxyCODONE, prochlorperazine OR prochlorperazine, sodium chloride 0.9%, witch steve-glycerin Objective: Vitals: 06/13/18 1116 BP: 145/65 Pulse: 81 Resp: 16 Temp: 98.7 ??F (37.1 ??C) O2 Device: room air (06/13/18 1024) Flow (L/min): 0 (06/10/18 0800) Gen: NAD, A&Ox4, good eye contact, well appearing, responds appropriately HEENT: atraumatic, normocephalic, face symmetric, sclerae anicteric, mucous membranes moist, Resp: no visible chest wall deformities, non-labored breathing, bibasilar crackles CV: regular rate, systolic murmur, normal S1/S2, GI: soft, mild tenderness to palpation in RUQ, non-distended, NABS, no rebound or guarding Ext: warm and well perfused, pulses intact, no LE edema, no clubbing or cyanosis; R&LUE have diffuse bruising. RUE has non erythematous swelling at site of extravasation. Skin: intact, no rashes/bruises/ulcers Neuro: A&Ox4, speech fluent, CN II-XII grossly intact, no focal deficits on exam Psych: Appropriate mood and affect for clinical situation Body mass index is 19.8 kg/m??. Data Review: WBC/Hgb/Hct/Plts: 7.59/9.3/29.2/267 (06/13 312) Na/K+/Phos/Mg/Ca: 137/3.3/--/2.1/-- (06/13 312) Bun/Creat/Cl/CO2/Glucose: 6/0.47/104/23/98 (06/13 312) Ptt/Pt/Inr: 38.7/15.5/1.2 (06/13 312) Lab Results Component Value Date ALT 23 05/26/2018 AST 31 05/26/2018 ALKPHOS 47 05/26/2018 BILITOTAL 1.1 05/26/2018 BILIDIRECT 0.1 05/26/2018 EKG: NSR with rate of 86 CT A/P 06/07: IMPRESSION: 1. ??High riding cecum with some wall thickening along the ileocecal junction along the medial wall of the cecum. Previously seen thickening of the wall and air pockets in the cecal wall appear to haveresolved. No free intraperitoneal air to suggest colonic perforation. Some wall thickening along theileocecal junction is nonspecific. 2. ??Colonic diverticulosis. Nonobstructive bowel gas pattern with no gross free air. 3. ??Hepatic steatosis. Stable enhancing focus in the segment 4 of the liver likely a shunt or hemangioma 4. ??Postcholecystectomy status. 5. ??Stable pancreatic calcifications with heterogeneity and fatty replacement of the pancreatic parenchyma likely related to prior pancreatitis. 6. ??Slightly enlarged uterus for the patient's age. Small enhancing focus in the endometrium is indeterminate. Pelvic floor descent with mild cystorectocele. 7. ??Stable hiatal hernia with a large duodenal diverticulum Assessment/Plan: Pamela Espinoza is a 78 y.o. female with a history of prior GI bleed w/ R sided AVMs, diverticulitis,HTN, HLD, hypothyroidism, autoimmune hepatitis, and lupus who presents with as a transfer from [facility] for evaluation of rectal bleeding. Adrenal Insufficiency: Extensive history of autoimmune diseases (SLE, AIH, PMR), ACTH stim test on 06/09 showed Cortisol increase from 1.54 to 10.81. No recent steroid use but was on pred for > 1 year with PMR in the distant past. Endocrine consulted - Follow-up ACTH level - Continue on Hydrocortisone replacement, 10 mg in AM and 5 mg at 3PM - Follow-up with endocrinology outpatient for ACTH stim test, endocrine will conduct at their office. He has follow-up with the fellow on 07/15/18. Ongoing fevers: CT AP improved, so abdominal source is not likely, will initiate a broad infectious work up. UA unremarkable, CXR improved, BCx's pending, could be secondary to autoimmune disease like lupus as her joints were hurting more at those times. Erythema on right arm demarcated. - Continue to monitor Colonic microperforation, resolved: Overnight 05/28-05/29, after colonoscopy on 05/28, the patient was septic with high fever.CT A/P showed microperforation. Surgery was consulted and recommended no surgical intervention needed but that they would continue to follow along. CTAP 06/07 demonstrates improvement. S/p 2 weeks of Cefepime/flagyl -> cipro/flagyl ended on 06/11. - Continue to monitor Hyponatremia, resolved: Patient has been hyponatremic on and off throughout the admission. She appears euvolemic. Urine osms 268, urine sodium 62, Cortisol decreased, TSH normal, Likely secondary to adrenal insufficiency. Swelling in RUE and LUE, improving: Initially had a PIV - Duplex of RUE showed acute superficial thrombus is noted in the right basilic vein from the mid forearm to the antecubital fossa. - Warm compress Nausea / Vomiting, improved - likely 2/2 to perforation and adrenal insufficiency - Improved with changing anti-emetic regimen. Zofran with Compazine PRN as compazine is too sedating, QRS is 472 on 06/04 Cough: ongoing, infrequent with post-tussive emesis -Cepacol cough drops Acute Blood loss anemia 2/2 GI Bleed: R sided AVMs, Stage III hemorrhoids, diverticuli noted in colonoscopy from outside hospital. Hgb dropping from 13.5 down to 9.0 over 3 days. Pt reports BRBPR with clots before admission. Pt remains HD stable. Colonoscopy at [facility] showed hemorrhoids but no AVM. GI was consulted - Resolved at this time - Transfuse if Hb <7, type and cross HTN: Restart home metoprolol at half dose 25 mg BID and monitor ?? Systolic Murmur: Pt did not report knowing of this in the past. Her last Echo was in 2011. She also reports that she was possibly told once (in [place]) that she has AFib We will repeat echo and get anEKG (did not show any Afib). -TTE 05/30 - LVEF preserved 60%, No , moderate AV regurgitation, mld-moderate MVR -EKG w/ NSR at a rate of 86 ?? Autoimmune Hepatitis: -Continue budesonide ?? Systemic Lupus Erythematosus: -Continue plaquenil ?? Glaucoma -Continue timolol, xalatan, and alphagan ?? Hypothyroidism -Continue synthroid FEN/GI: DIET REGULAR Ppx: SCDs Dispo: Admission on GM5 Code Status: Full Code Signed, Lupillo Chairez MD PGY-1, Resident, Department of Internal Medicine [facility] [phone] Associated attestation - Perico Aviles MD - 06/13/2018 7:17 PM EST Attending attestation: I saw and evaluated the patient independently. I discussed the plan of care with the residents. I have reviewed the resident note and agree with the findings and plan of care as documented. In short, Ms Espinoza is doing well today. She notes pain in the right > L hand related to her arthritis and requested ibuprofen Microperf, improved AI - cont cortisone SLE - no ibuprofen Awaiting SNF Date of service: 06/13/2018 Osiris Sarah Shannon, PT - 06/13/2018 12:05 PM ESTFormatting of this note may be different from the original. Acute Care Physical Therapy Treatment Note ? Maintain frequency (5 times a week) Additional Comments patient will benefit from dc to a SNF to cont PT when dc from hosp as fall risk and needs assist for any and all mob and poor activity ricardo ? 06/13/18 1205 Subjective RN Approved Intervention as tolerated;edge of bed;out of bed Existing Precautions/Restrictions fall Subjective Reports patient agreeable to work with PT Cognitive Status Examination Orientation Status (Cognition) oriented x 4 Level of Consciousness alert;cooperative Able to Follow Commands (Communication) WFL Personal Safety and Judgment at risk behaviors demonstrated Vision no gross deficit noted Hearing ([place] bilat ) Speech no gross deficit noted General Pain Documentation (Adult, OB, Peds) Presence of Pain (Pain right hand ) Objective Therapeutic Interventions patient in bed upon entering room; stand by assist of 1 for sup to sit; sit on EOB for 5 minutes with stand by assist of 1; stand by assist of 1 for sit to and from stand; ambwith WW and stand by assist of 1 for 85 ft x 2; seated in chair after session and while seated did 25 active bilat LAQs and heel and then toe raises Communication educated patient on goals and dc plans/recommendations for PT and ther ex bilat LEs while seated Balance Skills Assessment, Rehab Eval Sitting Balance: Static good balance Sitting Balance: Dynamic good balance Lib-Mn-Ynmvm Balance fair balance Standing Balance: Static fair balance Standing Balance: Dynamic fair balance CURRENT [facility] Basic Mobility Inpatient Short Form Turning over in bed 4 - No Assistance Sitting/standing from chair 3 - A Little Assistance Moving from lying on back to sitting 3 - A Little Assistance Moving to and from bed to chair 3 - A Little Assistance Walk in hospital room 3 - A Little Assistance Climbing 3-5 steps with a railing 3 - A Little Assistance CURRENT [facility] Mobility Raw Score 19 CURRENT [facility] Mobility Functional Limitation/Modifier 41.77% Currently Impaired in Basic Mobility -CK Projected [facility] Mobility Raw Score 24 Projected [facility] Mobility Functional Limitation/Modifier 0.00% Projected Functional Impairment in Basic Mobility - [place] Clinical Impression Criteria for Skilled Therapeutic Interventions Met (PT Eval) yes;treatment indicated Impairments Found (PT Eval) aerobic capacity/endurance;gait, locomotion, and balance Rehab Potential (PT Eval) good, to achieve stated therapy goals Therapy Frequency 5 times a week PT Therapy Completed Yes Anticipated Equipment Needs at Discharge (PT Eval) (none) Initial Evaluation Completed yes Continue care plan yes Goals Discussed risk / benefits with patient;patient's family Therapist Recommendations At Discharge Recommendations PT Services recommended at Discharge Assessment Factors that modified this intervention patient high fall risk and weakness bilat LEs; flat affect; dtr assists with session and does not always promote patient to do activities to her max independent ability; fatigues with minimal activity and needs frequent rests during ther ex; poor motivation for physical activity Progress toward goals stand by assist of 1 for sup to sit and sit to and from stand and for amb withWW Plan Plan for next visit progress mob as medically and physically able Maintain frequency (5 times a week) Additional Comments patient will benefit from dc to a SNF to cont PT when dc from hosp as fall risk and needs assist for any and all mob and poor activity ricardo charges: 1 gait and 1 tp ?? JESIKA Hodgson License #[id number] Pager [phone] Upon discontinuation of Acute Care Physical Therapy Services or patient discharge from the hospitalthis note represents the current Physical Therapy Discharge Summary. Time in 1205 Time out 1230 ?? Marleny Quevedo RN - 06/12/2018 4:28 PM [id number] Progress Note Anticipated Discharge Plan as of 06/12/2018 4:28 PM Expected Discharge Date: 06/13/2018 Anticipated discharge disposition: Care Home Facility Barriers to Discharge Barriers to Discharge: Complex Disposition, Facility (SNF/Rehab), Precertification Issue Barriers to Discharge Comment : Medical stability; needs placement per PT/OT recs; poor po intake; cont current medical mgmt Medical Milestone Medical Milestone : cont current medical mgmt; SNf choice made per pt/family; nno further bleeding Bindu Quevedo RN/[facility] Medicine Otzascfo, Rebecca - 06/12/2018 4:06 PM ESTFormatting of this note may be different from the original. Patient doing better, PT working with briana sarabia daughter said discharge talks are happening. 06/12/18 1500 Clinical Encounter Type Visited With Patient and family together Visit Type Attempt;Follow-up Pastoral Time Spent 15 min Druze Encounters Druze Needs Non-Druze/Non-Spiritual Spiritual Assessment Hope Observation Specific hope focus Automobile Body Repairer Helper Education Automobile Body Repairer Helper Service Available Yes Anna Sherwood MDiv Fraternity Adviser On-call pager:Kashif Long; Antoine [phone] Judy Leigh, PT - 06/12/2018 11:43 AM ESTFormatting of this note may be different from the original. Acute Care Physical Therapy Treatment Note Maintain frequency (5 times a week) Additional Comments patient will benefit from dc to a SNF to cont PT when dc from hosp as fall risk and needs assist for any and all mob and poor activity ricardo 06/12/18 1143 Subjective RN Approved Intervention as tolerated;edge of bed;out of bed Existing Precautions/Restrictions fall Subjective Reports patient agreeable to work with PT Cognitive Status Examination Orientation Status (Cognition) oriented x 4 Level of Consciousness alert;cooperative Able to Follow Commands (Communication) WFL Personal Safety and Judgment at risk behaviors demonstrated Vision no gross deficit noted Hearing ([place] bilat ) Speech no gross deficit noted General Pain Documentation (Adult, OB, Peds) Presence of Pain (Pain right hand ) Objective Therapeutic Interventions patient in bedside chair upon entering room; stand by assist of 1 for sit to and from stand; amb with WW and stand by assist of 1 for 80 ft x 2; seated in chair after session and while seated did 25 active bilat LAQs and 10 marches Communication educated patient on goals and dc plans/recommendations for PT and ther ex bilat LEs while seated Balance Skills Assessment, Rehab Eval Sitting Balance: Static good balance Sitting Balance: Dynamic good balance Lur-Sx-Brhfm Balance fair balance Standing Balance: Static fair balance Standing Balance: Dynamic fair balance CURRENT [facility] Basic Mobility Inpatient Short Form Turning over in bed 4 - No Assistance Sitting/standing from chair 3 - A Little Assistance Moving from lying on back to sitting 3 - A Little Assistance Moving to and from bed to chair 3 - A Little Assistance Walk in hospital room 3 - A Little Assistance Climbing 3-5 steps with a railing 3 - A Little Assistance CURRENT [facility] Mobility Raw Score 19 CURRENT [facility] Mobility Functional Limitation/Modifier 41.77% Currently Impaired in Basic Mobility -CK Projected [facility] Mobility Raw Score 24 Projected [facility] Mobility Functional Limitation/Modifier 0.00% Projected Functional Impairment in Basic Mobility - CH Clinical Impression Criteria for Skilled Therapeutic Interventions Met (PT Eval) yes;treatment indicated Impairments Found (PT Eval) aerobic capacity/endurance;gait, locomotion, and balance Rehab Potential (PT Eval) good, to achieve stated therapy goals Therapy Frequency 5 times a week PT Therapy Completed Yes Anticipated Equipment Needs at Discharge (PT Eval) (none) Initial Evaluation Completed yes Continue care plan yes Goals Discussed risk / benefits with patient;patient's family Therapist Recommendations At Discharge Recommendations PT Services recommended at Discharge Assessment Factors that modified this intervention patient high fall risk and weakness bilat LEs; flat affect; dtr assists with session; fatigues with minimal activity and needs frequent rests during ther ex; poor motivation for physical activity Progress toward goals stand by assist of 1 for sit to and from stand and for amb with WW Plan Plan for next visit progress mob as medically and physically able Maintain frequency (5 times a week) Additional Comments patient will benefit from dc to a SNF to cont PT when dc from hosp as fall risk and needs assist for any and all mob and poor activity ricardo charges: 1 gait and 1 tp Judy Leigh, MSPT License #[id number] Pager [phone] Upon discontinuation of Acute Care Physical Therapy Services or patient discharge from the hospitalthis note represents the current Physical Therapy Discharge Summary. Time in 1143 Time out 1207 Marcia Jc DT - 06/12/2018 10:39 AM ESTFormatting of this note may be different from the original. NUTRITION FOLLOW-UP Current Diet Orders Procedures ??? DIET REGULAR Please add clear ensures to diet. Standing Status: Standing Number of Occurrences: 1 Appetite: Fair % PO intake: 0-50% Per doc flow sheet: Date Breakfast Lunch Dinner 06/11/18 -- 50% -- 06/10/18 50% 25% -- 06/09/18 50% 50% 25% Admit wt: 107 lb Last recorded : Weight: 43 kg (94 lb 11.2 oz) Height: 147.3 cm (4' 9.99) BMI (Calculated): 23.1 12% wt change since admission, more then likely fluid gain Wt Readings from Last 3 Encounters: 06/09/18 43 kg (94 lb 11.2 oz) 06/26/12 49.2 kg (108 lb 7.5 oz) Intake/Output Summary (Last 24 hours) at 06/12/18 1039 Last data filed at 06/12/18 0800 Gross per 24 hour Intake 720 ml Output 1675 ml Net -955 ml (Retired/Read Only) Skin (Adult) Skin Color/Characteristics: bruised (ecchymotic) Skin Temperature: warm Skin Moisture: dry Skin Integrity: bruise(s) Sensory Perception: 3-->slightly limited Moisture: 3-->occasionally moist Activity: 3-->walks occasionally Mobility: 3-->slightly limited Nutrition: 3-->adequate Friction and Shear: 3-->no apparent problem Ab Score: 18 Summary : Pt at nutritional risk due to decreased appetite, po intakes average 0-50% at most meals, Ab score-18, bruise. If further aggressive nutrition is needed please contact unit RD. collection technician to continue to monitor: Nutrition Plan of Care: 1. Will continue daily meal selections as able. 2. Will provide oral supplement With meals to improve calorie and protein intake 3. Monitor for significant weight changes 4. Monitor/encourage po intake 5. collection technician will continue to follow GONSALO Rowe Pager: [phone] Gomez LISWS - 06/12/2018 10:30 AM EST Reason for Consult: discharge planning Consulted By: medical team Level of Care Referral: SNF is recommended Source of Post Acute Provider List: medicare.gov Patient Choice List of in-network facilities that offer the services the pt requires and that are in the requested geographic area was provided. Patient/Family Plan Discussion SW met with pt to discuss recommendation for SNF placement for short-term rehab. Pt states that shewould much prefer to go home and believes that her family can accommodate 24/7 supervision. Pt was accepting of a SNF list and will review/discuss options with her family. Pt shared that her is hospitalized at [facility], and pt noticed that this hospital has a rehab unit. Pt is agreeable to SW inquiring if this unit has availability and can meet her needs to help make her decision. Referral sent to [facility] for review. SW will f/u with pt family once a decision is reached. Role of social media marketing manager explained, contact info shared, and emotional support provided. Patient agrees to follow up if additional questions or concerns arise. Social work will remain available to assistas needed. Addendum 16:30-- SW met with pt and daughter Barbara at bedside. [facility] will not have a bed available for at least 2-3 days. Pt/daughter are not sure what a back-up choice might be, and pt continues to state that she wants to go home. SW will check on status of bed availability tomorrow and f/u with pt. They will continue to discuss her options. All questions/concerns addressed at this time. Wolf Gomez, TRANSMISSION SUPERINTENDENT, ENOLOGIST-S Social Work Float [phone] Lupillo Chairez MD - 06/12/2018 8:01 AM ESTFormatting of this note may be different from the original. Internal Medicine Daily Progress Note Patient: Pamela Espinoza, 1940, [id number] Physician: Lupillo Chairez MD, GM5 Service Subjective/Interval History: Vitals and nursing notes reviewed for the past 24 hours. She continues to have a little redness in her soft stools. She has a history of hemorrhoids. Hgb is trending up this morning. She is eating much better with more PO intake. She appears more energetic today. She has not been nauseous recently and hasn't used any Zofran in the last 2 days. Medications: Continuous: Scheduled: bimatoprost 1 drop QHS brimonidine 1 drop BID budesonide 3 mg QAM heparin 5,000 Units Q8H hydrocortisone 10 mg QAM hydrocortisone 5 mg Q24H hydroxychloroquine 200 mg Daily levothyroxine 75 mcg Before BKF Magnesium Sulfate IVPB 4 g Once metoprolol 25 mg Q12H polyethylene glycol 17 g Daily potassium chloride 10 mEq Q2H timolol maleate 1 drop Daily PRN:acetaminophen OR acetaminophen, alum/mag hydrox.-simethicone, benzocaine-menthol, calcium carbonate antacid, dextrose, melatonin, ondansetron 4mg/2ml OR ondansetron, oxyCODONE, prochlorperazine OR prochlorperazine, sodium chloride 0.9% Objective: Vitals: 06/12/18 0510 BP: 156/68 Pulse: 84 Resp: 18 Temp: 98.7 ??F (37.1 ??C) O2 Device: room air (06/12/18509) Flow (L/min): 0 (06/10/18 0800) Gen: NAD, A&Ox4, good eye contact, well appearing, responds appropriately HEENT: atraumatic, normocephalic, face symmetric, sclerae anicteric, mucous membranes moist, Resp: no visible chest wall deformities, non-labored breathing, bibasilar crackles CV: regular rate, systolic murmur, normal S1/S2, GI: soft, mild tenderness to palpation in RUQ, non-distended, NABS, no rebound or guarding Ext: warm and well perfused, pulses intact, no LE edema, no clubbing or cyanosis; R&LUE have diffuse bruising. RUE has non erythematous swelling at site of extravasation. Skin: intact, no rashes/bruises/ulcers Neuro: A&Ox4, speech fluent, CN II-XII grossly intact, no focal deficits on exam Psych: Appropriate mood and affect for clinical situation Body mass index is 19.8 kg/m??. Data Review: WBC/Hgb/Hct/Plts: 7.37/9.1/28.1/283 (06/12 323) Na/K+/Phos/Mg/Ca: 134/3.1/--/1.6/-- (06/12 323) Bun/Creat/Cl/CO2/Glucose: 4/0.48/104/22/96 (06/12 323) Ptt/Pt/Inr: 39.8/16.1/1.3 (06/12 0323) Lab Results Component Value Date ALT 23 05/26/2018 AST 31 05/26/2018 ALKPHOS 47 05/26/2018 BILITOTAL 1.1 05/26/2018 BILIDIRECT 0.1 05/26/2018 EKG: NSR with rate of 86 CT A/P 06/07: IMPRESSION: 1. ??High riding cecum with some wall thickening along the ileocecal junction along the medial wall of the cecum. Previously seen thickening of the wall and air pockets in the cecal wall appear to haveresolved. No free intraperitoneal air to suggest colonic perforation. Some wall thickening along theileocecal junction is nonspecific. 2. ??Colonic diverticulosis. Nonobstructive bowel gas pattern with no gross free air. 3. ??Hepatic steatosis. Stable enhancing focus in the segment 4 of the liver likely a shunt or hemangioma 4. ??Postcholecystectomy status. 5. ??Stable pancreatic calcifications with heterogeneity and fatty replacement of the pancreatic parenchyma likely related to prior pancreatitis. 6. ??Slightly enlarged uterus for the patient's age. Small enhancing focus in the endometrium is indeterminate. Pelvic floor descent with mild cystorectocele. 7. ??Stable hiatal hernia with a large duodenal diverticulum Assessment/Plan: Pamela Espinoza is a 78 y.o. female with a history of prior GI bleed w/ R sided AVMs, diverticulitis,HTN, HLD, hypothyroidism, autoimmune hepatitis, and lupus who presents with as a transfer from [facility] for evaluation of rectal bleeding. Adrenal Insufficiency: Extensive history of autoimmune diseases (SLE, AIH, PMR), ACTH stim test on 06/09 showed Cortisol increase from 1.54 to 10.81. No recent steroid use but was on pred for > 1 year with PMR in the distant past. Endocrine consulted - Follow-up ACTH level - Continue on Hydrocortisone replacement, 10 mg in AM and 5 mg at 3PM - Follow-up with endocrinology outpatient for ACTH stim test, endocrine will conduct at their office. Ongoing fevers: CT AP improved, so abdominal source is not likely, will initiate a broad infectious work up. UA unremarkable, CXR improved, BCx's pending, could be secondary to autoimmune disease like lupus as her joints were hurting more at those times. Erythema on right arm demarcated. - Continue to monitor Colonic microperforation, resolved: Overnight 05/28-05/29, after colonoscopy on 05/28, the patient was septic with high fever.CT A/P showed microperforation. Surgery was consulted and recommended no surgical intervention needed but that they would continue to follow along. CTAP 06/07 demonstrates improvement. S/p 2 weeks of Cefepime/flagyl -> cipro/flagyl ended on 06/11. - Continue to monitor Hyponatremia, resolved: Patient has been hyponatremic on and off throughout the admission. She appears euvolemic. Urine osms 268, urine sodium 62, Cortisol decreased, TSH normal, Likely secondary to adrenal insufficiency. - CTM Swelling in RUE: Initially had a PIV - Duplex of RUE showed acute superficial thrombus is noted in the right basilic vein from the mid forearm to the antecubital fossa. - Warm compress Nausea / Vomiting - likely 2/2 to perforation - Improved with changing anti-emetic regimen. Zofran with Compazine PRN as compazine is too sedating, QRS is 472 on 06/04 Cough: ongoing, infrequent with post-tussive emesis -Cepacol cough drops Acute Blood loss anemia 2/2 GI Bleed: R sided AVMs, Stage III hemorrhoids, diverticuli noted in colonoscopy from outside hospital. Hgb dropping from 13.5 down to 9.0 over 3 days. Pt reports BRBPR with clots before admission. Pt remains HD stable. Colonoscopy at [facility] showed hemorrhoids but no AVM. GI was consulted - Resolved at this time - Transfuse if Hb <7, type and cross HTN: Restart home metoprolol at half dose 25 mg BID and monitor ?? Systolic Murmur: Pt did not report knowing of this in the past. Her last Echo was in 2011. She also reports that she was possibly told once (in [place]) that she has AFib We will repeat echo and get anEKG (did not show any Afib). -TTE 05/30 - LVEF preserved 60%, No , moderate AV regurgitation, mld-moderate MVR -EKG w/ NSR at a rate of 86 ?? Autoimmune Hepatitis: -Continue budesonide ?? Systemic Lupus Erythematosus: -Continue plaquenil ?? Glaucoma -Continue timolol, xalatan, and alphagan ?? Hypothyroidism -Continue synthroid FEN/GI: DIET REGULAR Ppx: SCDs Dispo: Admission on GM5 Code Status: Full Code Signed, Lupillo Chairez MD PGY-1, Resident, Department of Internal Medicine [facility] [phone] Associated attestation - Perico Aviles MD - 06/12/2018 2:11 PM EST Attending attestation: I saw and evaluated the patient independently. I discussed the plan of care with the residents. I have reviewed the resident note and agree with the findings and plan of care as documented. In short, MS Espinoza is doing well today. Still some streaked blood on the stool, though with stableHgb Microperf - antibiotics complete, improved Blood on stool - Likely hemorrhoidal, fu HH tomorrow Adrenal insuf - cont HC Date of service: 06/12/2018 Johnny Sarah Paul A, DO - 06/11/2018 1:46 PM ESTFormatting of this note may be different from the original. INPATIENT PROGRESS NOTE IDENTIFYING INFORMATION PATIENT: Pamela Espinoza ADMIT DATE: 05/25/2018 SUBJECTIVE/INTERVAL HISTORY Pamela Espinoza was seen for follow up of prior endocrinology consult regarding Adrenal Insufficiency Interval History: - Patient doing well with no new issues - Discussed seeing the patient as outpatient to further manage her HC. Patient would like to continue to follow with Dr. Vasquez as outpatient as her other family member sees her as well. Review of Systems - As per HPI and below: Constitutional: + fatigue, fever, chills, +weakness, weight loss Skin: Negative for lesions, rashes, sores, discoloration. HENT: Negative for Rhinorrhea, Negative for sore throat ?? Eyes: Negative for blurring of vision. Cardiovascular: Negative for chest pain, palpitations Respiratory: Negative for cough, Negative for dyspnea on exertion.?? Gastrointestinal:Negative for nausea, vomiting, Negative for abdominal pain, Negative for diarrhea. Genitourinary: Negative for bladder incontinence, dysuria and hematuria. Musculoskeletal: Negative for myalgias and joint pain. Negative for edema,. Neurological: Negative for headache, negative for focal neurologic deficit, negative for dizziness, tingling Endocrine: Negative for changes in weight, heat or cold intolerance, negative for sweats.?? Psychiatric: Negative for mood changes, anxiety and depression Physical Exam: . Vitals: 06/11/18 1115 BP: 141/63 Pulse: 84 Resp: 16 Temp: 98.6 ??F (37 ??C) Body mass index is 19.8 kg/m??., Wt Readings from Last 1 Encounters: 06/09/18 43 kg (94 lb 11.2 oz) Constitutional: well-developed, well-nourished, and in no distress. Cardiovascular: regular rate and rhythm, no murmurs, rubs or gallops. No edema. Pulmonary/Chest: lungs clear to auscultation bilaterally. Abdominal: Soft, non-tender and non-distended. Normal bowel sounds. Extremities: No edema and no rash in all four extremities. LABS AND IMAGING ASSESSMENT AND PLAN Pamela Espinoza is a 78 y.o. female with a history of fibromyalgia, autoimmune hepatitis, HTN, HLD, hypothyroidism, lupus who was admitted for evaluation of rectal bleeding. Patient underwent ACTH stim test with subnormal post stim cortisol level of 10, consistent with adrenal insufficiency. ?? Adrenal insufficiency, unclear primary or secondary - ACTH level pending - continue Hydrocortisone 10 mg in AM and 5 mg at 3PM - Wants to continue to follow with Dr. Vasquez as outpatient. Attach to discharge instructions: - Upon discharge, please give lab order for patient to have cosyntropin stim test performed at her local lab. (patient has done this before at this lab) - Can perform the cosyntropin stim test in 07/2018 - The day before the test, hold the hydrocortisone 5 mg and also hold the hydrocortisone 10 mg day of the test - Following the test, patient can continue hydrocortisone 10 mg in AM and 5 mg in early evening until she hears back from Dr. Vasquez with the results and further recommendations - Call Dr. Cortez office with lab results ?? We will sign off. Please call with any additional questions ?? These recommendations are preliminary, until co signed by our attending, Dr. Pedro Tomlinson D.O. Division of Endocrinology, Diabetes & Metabolism Fellow, PGY-4 [phone] (Pager) Wing Colby OT - 06/11/2018 10:48 AM ESTFormatting of this note may be different from the original. Acute Occupational Therapy Evaluation Frequency: 5 x per week Discharge Recommendations: Pamela Espinoza would benefit from continued OT services with 24 hour supervision needed for self care and safety needs. 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 COLONOSCOPY DIAGNOSTIC N/A 05/28/2018 Laterality: N/A; Surgeon: Elizabeth Ortiz MD; Location: [facility] Past Medical History Past Medical History: Diagnosis Date ??? Autoimmune hepatitis ??? Diverticulosis ??? HLD (hyperlipidemia) ??? Tachycardia Existing Precautions/Restrictions fall Previous Level of Function Bed Mobility/Transfers independent Bathing independent Upper Body Dressing independent Lower Body Dressing independent Grooming independent Toileting independent Eating independent Home Management Skills (daughter assists) General Pain Documentation (Adult, OB, Peds) Presence of Pain complains of pain/discomfort Pain Location hand, right (chronic arthritis ) Pain Management Interventions positioning Select Pain Scale (did not rate) Home Setting Residence Home (1 story) Lives With spouse (he has been hospitalized since February 2018) First floor bed/bathroom yes;tub shower Number of Stairs to Enter Home 3 Number of Stairs Within Home 0 Equipment Available (No equipment available; moves slowly.) Cognitive Status Examination Orientation Status (Cognition) oriented x 4 Level of Consciousness alert;cooperative Able to Follow Commands (Communication) WNL Personal Safety and Judgment intact Short Term Memory intact Mortar Worker Memory intact Cognitive Function Sequence intact Memory intact Organization intact Problem Solving intact Attention intact Vision (check all that apply) Vision no gross deficit noted Speech Speech no gross deficits noted Hearing Hearing no gross deficits noted Sensory Examination Sensory Tests Pt denies numbness and tingling Proprioception Proprioception intact Range of Motion (ROM) Range of Motion Examination LUE ROM was WNL;RUE ROM was WFL (limited digit/metacarpal ROM d/t pain) Manual Muscle Testing (MMT) Dominant Hand right Hand Media Theorist And Author Of, Right moderate Hand Media Theorist And Author Of, Left strong Manual Muscle Testing Results no strength deficits were identified Edema Edema present Location Mild in bilat LE/feet Transfer Skill: Sit to Stand, Rehab Eval Level of Lipscomb: Sit/Stand contact guard Physical Assist/Nonphysical Assist: Sit/Stand 1 person assist;verbal cues;supervision;set-up required Balance Skills Assessment, Rehab Eval Sitting Balance: Static good balance Sitting Balance: Dynamic (fair+) Uew-Wg-Mvjal Balance (fair+) Standing Balance: Static (fair+) Standing Balance: Dynamic fair balance Gross Coordination Gross Coordination bilat UE intact Fine Motor Coordination Additional Documentation Yes Fine Motor Coordination, OT Eval Left Hand Thumb/Finger Opposition Skills normal performance Right Hand Thumb/Finger Opposition Skills severe impairment (limited by pain) Left Hand, Manipulation of Objects normal performance Right Hand, Manipulation of Objects severe impairment (limited by pain) Bathing Level of Lipscomb minimum assist (75% patients effort) Physical Assist/Nonphysical Assist 1 person assist;verbal cues;supervision;set- up required Upper Body Dressing Level of Lipscomb minimum assist (75% patients effort) Physical Assist/Nonphysical Assist 1 person assist;verbal cues;supervision;set- up required Lower Body Dressing Level of Lipscomb minimum assist (75% patients effort) Physical Assist/Nonphysical Assist 1 person assist;verbal cues;supervision;set- up required Toileting Level of Lipscomb minimum assist (75% patients effort) Physical Assist/Nonphysical Assist 1 person assist;verbal cues;supervision;set- up required Grooming Lipscomb Level (Grooming) minimum assist (75% patient effort) Physical Assist/Nonphysical Assist 1 person assist;verbal cues;supervision;set- up required General Therapy Interventions Planned Therapy Interventions (OT Eval) ADL retraining;IADL retraining;balance training;transfer training;fine motor coordination training;strengthening PRIOR LEVEL AM-PAC Activity Inpatient Short Form Putting on/Taking Off Lower Body Clothing 4 - No Assistance Bathing 4 - No Assistance Toileting 4 - No Assistance Putting on/Taking Off Upper Body Clothing 4 - No Assistance Grooming 4 - No Assistance Eating 4 - No Assistance PRIOR LEVEL AM-PAC Activity Raw Score 24 PRIOR LEVEL AM-PAC Activity Functional Limitation/Modifier 0.00% Prior Functional Impairment in Daily Activity - CURRENT AM-[facility] Daily Activity Inpatient Short Form Putting on/Taking Off Lower Body Clothing 3 - A Little Assistance Bathing 3 - A Little Assistance Toileting 3 - A Little Assistance Putting on/Taking Off Upper Body Clothing 3 - A Little Assistance Grooming 3 - A Little Assistance Eating 3 - A Little Assistance CURRENT AM-PAC Activity Raw Score 18 CURRENT AM-PAC Activity Functional Limitation/Modifier 46.65% Currently Impaired in Daily Activity -CK PROJECTED AM-PAC Activity Raw Score 23 PROJECTED AM-PAC Activity Functional Limitation/Modifier 15.86% - CI Assessment Assessment Narrative This patient???s OT evaluation is of Moderate Complexity due to the following: ?? 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 Pt has a expanded history relating to the present problem and their occupational profile has changed moderately compared to their baseline. The pt was independent with all ADLs prior to hospitalization. Pt uses no device for mobility and denies any falls recently. Currently, pt requires minimum assist for ADLs mainly due to pain from chronic arthritis in right hand and decreased functional activity tolerance. Pt is able to follow 100% of simple 1-step commands without assistance. ?? Assessment of Occupational Performance: Pt has 3-5 performance deficits relating to physical, cognitive, and/or psychosocial skills. These deficits include: ?? -Physical: balance, endurance, fine/gross motor coordination ?? -Cognitive: None noted at this time ?? -Psychosocial: environmental adaptations ?? Clinical Decision Making: In regards to appropriate treatment options available, modifications of tasks required, and co-morbidities present, the pt is considered a moderate complexity. Based on the information above, Pamela Espinoza would benefit from continued OT services to maximize independence with ADLs and functional mobility, increase functional activity tolerance, increase generalized strengthprn, and increase use and understanding of adaptive equipment prn. Clinical Impression Patient Instruction Role of OT, plan of care Rehab Potential (OT Eval) good, to achieve stated therapy goals Therapy Frequency 5 times a week OT Therapy Completed Yes Initial Evaluation Completed yes Today's Treatment Included -Pt upright in recliner upon therapist arrival; pt agreeable to OT session. -Pt demonstrated [id number] transfer from recliner to 2WW with contact guard assist. -Pt demonstrated fair+ static standing balance while gown was adjusted. -Pt ambulated with 2WW and contact guard assist. -Pt returned to recliner and was positioned for comfort. -Pt educated on proper positioning techniques to decrease pain in right hand; pt verbalized understanding. -Pt provided with red tubing to place on items, including silverware, toothbrush, pens, to facilitate independence with ADL and IADL tasks; pt verbalized and demonstrated understanding. -Pt provided with pink sponge to promote active ROM in right hand; pt verbalized and demonstrated understanding. -Pt left with all needs met and call light within reach; daughter in room. Continue care plan yes Goals Goals For Discharge Maximize independence and safety during ADL and mobility tasks. Discussed risk / benefits with patient;patient's family Goals Goals 1. Pt will engage in dynamic standing activities/ADL tasks x 10 minutes to facilitate functional activity tolerance in ADLs and mobility tasks. 2. Pt will complete lower body ADL tasks with stand-by assistance and use of compensatory strategiesto maximize independence with ADLs. 3. Pt will follow safety precautions 100% of time. 4. Pt will complete toileting ADL tasks with stand-by assistance and use of AE/DME PRN to maximize safety and independence with ADLs. 5. Pt will complete functional transfers on/off various surfaces with SBA using least restrictive device. 6. Pt will independently complete ROM exercises (as approved by doctors) to prevent deconditioning during hospitalization. Therapist Recommendations At Discharge Recommendations OT Services recommended at Discharge Plan Plan Narrative OT to follow and progress towards established goals. Charges: OT evaluation-moderate; SCx1 Time in: 1025 Time out: 1048 Total time: 23 minutes Upon discontinuation of Acute Care Occupational Therapy Services or patient discharge from the hospital this note represents the current Occupational Therapy Discharge Summary. Wing Colby OTR/L License # [id number] Pager # [phone] Judy Leigh, PT - 06/11/2018 10:34 AM ESTFormatting of this note may be different from the original. Acute Care Physical Therapy Evaluation at this time recommend for patient to have PT in hosp for 5 days a week for amb and mob while using a WW; patient will benefit from dc to a SNF to cont PT when dc from hosp as fall risk and needs assist for any and all mob and limited activity ricardo 06/11/18 1034 General Information RN Approved Intervention as tolerated;edge of bed;out of bed Diagnosis Assessment/Plan: ?? Pamela Espinoza is a 78 y.o. female with a history of prior GI bleed w/ R sided AVMs, diverticulitis,HTN, HLD, hypothyroidism, autoimmune hepatitis, and lupus who presents with as a transfer from [facility] for evaluation of rectal bleeding. ?? Adrenal Insufficiency: Extensive history of autoimmune diseases (SLE, AIH, PMR), ACTH stim test on 06/09 showed Cortisol increase from 1.54 to 10.81. No recent steroid use but was on pred for > 1 year with PMR in the distant past. Endocrine consulted - Follow-up ACTH level - Start on Hydrocortisone replacement, 10 mg in AM and 5 mg at 3PM - Follow-up with endocrinology outpatient ?? Ongoing fevers: CT AP improved, so abdominal source is not likely, will initiate a broad infectious work up. UA unremarkable, CXR improved, BCx's pending, could be secondary to autoimmune disease like lupus as her joints were hurting more at those times. Erythema on right arm demarcated. - Continue to monitor, broaden antibiotics if any evidence of infection comes up during work up - Follow demarcating of erythematous area of arm with plan to start Vanc if worsens, though seems improved today. ?? Colonic microperforation: Overnight 05/28-05/29, after colonoscopy on 05/28, the patient was septic with high fever.CT A/P showed microperforation. Surgery was consulted and recommended no surgical intervention needed but that they would continue to follow along. CTAP 06/07 demonstrates improvement. S/p 2 weeks of Cefepime/flagyl -> cipro/flagyl ended on 06/11. - Continue to monitor ?? Hyponatremia, resolved: Patient has been hyponatremic on and off throughout the admission. She appears euvolemic. Urine osms 268, urine sodium 62, Cortisol decreased, TSH normal, Likely secondary to adrenal insufficiency. - CTM ?? Swelling in RUE: Initially had a PIV - Duplex of RUE showed acute superficial thrombus is noted in the right basilic vein from the mid forearm to the antecubital fossa. - Warm compress ?? Nausea / Vomiting - likely 2/2 to perforation - Improved with changing anti-emetic regimen. Zofran with Compazine PRN as compazine is too sedating, QRS is 472 on 06/04 ?? Cough: ongoing, infrequent with post-tussive emesis -Cepacol cough drops ?? Acute Blood loss anemia 2/2 GI Bleed: R sided AVMs, Stage III hemorrhoids, diverticuli noted in colonoscopy from outside hospital. Hgb dropping from 13.5 down to 9.0??over 3 days. Pt reports BRBPR withclots before admission. Pt remains HD stable. Colonoscopy at [facility] showed hemorrhoids but no AVM - Resolved at this time - Transfuse if Hb <7, type and cross - GI consulted, appreciate recs ?? HTN: Restart home metoprolol at half dose 25 mg BID and monitor ?? Systolic Murmur: Pt did not report knowing of this in the past. Her last Echo was in 2011. She also reports that she was possibly told once (in [place]) that she has AFib??We will repeat echo and get an EKG (did not show any Afib). -TTE 05/30 - LVEF preserved 60%, No , moderate AV regurgitation, mld-moderate MVR -EKG w/ NSR at a rate of 86 ?? Autoimmune Hepatitis: -Continue budesonide ?? Systemic Lupus Erythematosus: -Continue plaquenil ?? Glaucoma -Continue timolol, xalatan, and alphagan Chief Complaint: Rectal Bleeding ?? History Of Present Illness: Pamela Espinoza is a 78 y.o. female with a history of prior GI bleed w/ R sided AVMs, diverticulitis,HTN, HLD, hypothyroidism, autoimmune hepatitis, and lupus who presents with as a transfer from [facility] for evaluation of rectal bleeding. ?? Per the patient and her children, bleeding began the afternoon of 05/22-- BRBPR with bowel movements.Pt initially presented to ED on 05/23--at that time, Hb was stable and plans were made for outpatientf/up with GI the following day. Pt had colonoscopy on 05/25, which showed multiple bleeding colonic angioectasias of the cecum/proximal ascending colon, as well as bleeding diverticuli. As treatment modalities for AVM bleeds are not available at [place], pt was transferred to [facility]. Of note, Hb dropped from 13.5 on 05/23 to 11.9 on 05/24 to 9.5 mg/dL prior to arrival at [facility]. ?? Pt notes diarrhea with initial bloody BM on 05/22--now pt states BM is almost entirely blood with clot formation. Pt denies dyschezia, although does have abdominal cramping/discomfort over the past week. Denies nausea/vomiting aside from colonoscopy prep-induced. Denies fevers, chills, recent sick contacts, or recent illness. Has been on abx for diverticulitis in the past, but not during this admission. ?? On arrival, pt A&O x 4, conversant with VSS. Past Medical History Past Medical History: Diagnosis Date ??? Autoimmune hepatitis ??? Diverticulosis ??? HLD (hyperlipidemia) ??? Tachycardia Past Surgical History Past Surgical History: Procedure Laterality Date ??? COLONOSCOPY DIAGNOSTIC N/A 05/28/2018 Laterality: N/A; Surgeon: Elizabeth Ortiz MD; Location: [facility] Existing Precautions/Restrictions fall Left Upper Extremity (Weight Bearing Status) full weight bearing Weight-Bearing Status-RUE full weight-bearing Left Lower Extremity (Weight Bearing Status) full weight bearing Right Lower Extremity (Weight Bearing Status) full weight bearing Home Setting Residence Home Lives With spouse First floor bed/bathroom yes Second floor bed/bathroom no Number of Stairs to Enter Home 3 (and bilat HRs) Equipment Available none used Previous Level of Function Ambulation Skills independent Assistive Device none used Level of Ambulation community General Pain Documentation (Adult, OB, Peds) Presence of Pain (pain right hand ) Cognitive Status Examination Orientation Status (Cognition) oriented x 4 Level of Consciousness alert;cooperative Able to Follow Commands (Communication) WFL Personal Safety and Judgment at risk behaviors demonstrated Vision no gross deficit noted Hearing ([place] bilat ) Speech no gross deficit noted Range of Motion (ROM) Range of Motion Examination bilateral lower extremity ROM was WFL Manual Muscle Testing (MMT) Manual Muscle Testing Results bilateral lower extremity MMT was WFL Muscle Tone Assessment LUE Muscle Tone Assessment WNL RUE Muscle Tone Assessment WNL LLE Muscle Tone Assessment WNL RLE Muscle Tone Assessment WNL Skin Integrity Skin integrity WFL Edema Edema (Min edema bilat lower legs ) Transfer Skill: Sit To Stand, Rehab Eval Lipscomb (Sit-Stand Transfers) minimum assist (75% patient effort) Physical Assist/Nonphysical Assist: Sit/Stand set-up required;supervision;verbal cues;1 person assist Weight-Bearing Restrictions: Sit/Stand full weight-bearing Assistive Device For Transfer: Sit/Stand 2 wheeled walker Transfer Skill: Stand To Sit, Rehab Eval Lipscomb (Stand-Sit Transfers) minimum assist (75% patient effort) Physical Assist/Nonphysical Assist: Stand/Sit set-up required;supervision;verbal cues;1 person assist Weight-Bearing Restrictions: Stand/Sit full weight-bearing Assistive Device For Transfer: Stand/Sit 2 wheeled walker Gait Skills, PT Eval Level of Lipscomb: Gait minimum assist (75% patients effort) Physical Assist/Nonphysical Assist: Gait set-up required;supervision;verbal cues;1 person assist Weight-Bearing Restrictions: Gait full weight-bearing Assistive Device For Transfer: Gait 2 wheeled walker Gait Distance 75 feet Gait Analysis, PT Eval Impairments Contributing To Gait Deviations decreased strength Balance Skills Assessment, Rehab Eval Sitting Balance: Static good balance Sitting Balance: Dynamic good balance Fyp-Wz-Gjehb Balance fair balance Standing Balance: Static fair balance Standing Balance: Dynamic fair balance Sensory Examination Sensory Examination WFL Proprioception Proprioception intact General Interventions Planned Therapy Interventions balance training;bed mobility training;edema control;endurance;gait training;ROM;strengthening;transfer training PRIOR LEVEL [facility] Basic Mobility Inpatient Short Form Turning over in bed 4 - No Assistance Sitting/standing from chair 4 - No Assistance Moving from lying on back to sitting 4 - No Assistance Moving to and from bed to chair 4 - No Assistance Walk in hospital room 4 - No Assistance Climbing 3-5 steps with a railing 4 - No Assistance PRIOR LEVEL [facility] Mobility Raw Score 24 PRIOR LEVEL [facility] Mobility Functional Limitation/Modifier 0.00% Prior Functional Impairment in Basic Mobility - CH CURRENT [facility] Basic Mobility Inpatient Short Form Turning over in bed 4 - No Assistance Sitting/standing from chair 3 - A Little Assistance Moving from lying on back to sitting 3 - A Little Assistance Moving to and from bed to chair 3 - A Little Assistance Walk in hospital room 3 - A Little Assistance Climbing 3-5 steps with a railing 3 - A Little Assistance CURRENT [facility] Mobility Raw Score 19 CURRENT [facility] Mobility Functional Limitation/Modifier 41.77% Currently Impaired in Basic Mobility -CK Projected [facility] Mobility Raw Score 24 Projected [facility] Mobility Functional Limitation/Modifier 0.00% Projected Functional Impairment in Basic Mobility - CH Assessment Assessment Narrative Patient presents today for PT eval; at this time recommend for patient to have PT in hosp for 5 days a week for amb and mob while using a WW; patient will benefit from dc to a SNF to cont PT when dc from hosp as fall risk and needs assist for any and all mob and limited activity ricardo; friendly and cooperative with PT; has been in hosp since February; does not drive much and if does, goes for very short distances; does not work; dtr present at time of eval Clinical Impression Criteria for Skilled Therapeutic Interventions Met (PT Eval) yes;treatment indicated Impairments Found (PT Eval) aerobic capacity/endurance;gait, locomotion, and balance Rehab Potential (PT Eval) good, to achieve stated therapy goals Therapy Frequency 5 times a week PT Therapy Completed Yes Anticipated Equipment Needs at Discharge (PT Eval) (none) Initial Evaluation Completed yes Continue care plan yes Today's Treatment Included Patient in bedside chair upon entering room; min assist of 1 for sit to and from stand with WW and to amb 75 ft; in chair after session and educated patient on goals and dc plans/recommendations for PT Goals Discussed risk / benefits with patient;patient's family Goals Goal 1 indep sup to and from sit EOB Goal 2 indep sit to and from stand pivot EOB to and from bedside chair Goal 3 amb indep with WW for 200 ft Goal 4 indep up and down 3 steps with bilat HRs Goal 5 indep with HEP bilat LEs while seated for 25 active reps Therapist Recommendations At Discharge Recommendations PT Services recommended at Discharge Plan Plan Narrative at this time recommend for patient to have PT in hosp for 5 days a week for amb and mob while using a WW; patient will benefit from dc to a SNF to cont PT when dc from hosp as fall risk and needs assist for any and all mob and limited activity ricardo Therapist Information License # [id number] Pager # [phone] Charges: 1 high complex eval [facility], [facility] License #[id number] Pager [phone] Upon discontinuation of Acute Care Physical Therapy Services or patient discharge from the hospitalthis note represents the current Physical Therapy Discharge Summary. Time in 1034 Time out 1046 Lupillo Chairez MD - 06/11/2018 10:00 AM ESTFormatting of this note may be different from the original. Internal Medicine Daily Progress Note Patient: Pamela Espinoza, 1940, [id number] Physician: Lupillo Chairez MD, GM5 Service Subjective/Interval History: Vitals and nursing notes reviewed for the past 24 hours. She had redness in her stool overnight but her Hgb staid stable. She has a history of hemorrhoids. The daughter expressed concern over steady drop over the past week. We discussed how the steady blood draws could lead to the incremental declinewe have seen. Pt did not sleep well overnight with evening hydrocortisone. She was not nauseous overnight and hasn't eaten anything yet this morning but seems to have more energy. PT/OT to evaluate today to assess if she can go home safely. Medications: Continuous: Scheduled: bimatoprost 1 drop QHS bisacodyl 10 mg Once brimonidine 1 drop BID budesonide 3 mg QAM Ciprofloxacin (CIPRO) IVPB 400 mg Q12HNS heparin 5,000 Units Q8H hydrocortisone 10 mg QAM hydrocortisone 5 mg Q24H hydroxychloroquine 200 mg Daily levothyroxine 75 mcg Before BKF metoprolol 25 mg Q12H metronidazole 500 mg Q8H polyethylene glycol 17 g Daily timolol maleate 1 drop Daily PRN:acetaminophen, alum/mag hydrox.-simethicone, benzocaine-menthol, calcium carbonate antacid, dextrose, melatonin, ondansetron 4mg/2ml OR ondansetron, oxyCODONE, prochlorperazine OR prochlorperazine, sodium chloride 0.9% Objective: Vitals: 06/11/18 0813 BP: 146/60 Pulse: 82 Resp: 16 Temp: 98.6 ??F (37 ??C) O2 Device: room air (06/11/18 0815) Flow (L/min): 0 (06/10/18 0800) Gen: NAD, A&Ox4, good eye contact, well appearing, responds appropriately HEENT: atraumatic, normocephalic, face symmetric, sclerae anicteric, mucous membranes moist, Resp: no visible chest wall deformities, non-labored breathing, bibasilar crackles CV: regular rate, systolic murmur, normal S1/S2, GI: soft, mild tenderness to palpation in RUQ, non-distended, NABS, no rebound or guarding Ext: warm and well perfused, pulses intact, no LE edema, no clubbing or cyanosis; R&LUE have diffuse bruising. RUE has non erythematous swelling at site of extravasation. Skin: intact, no rashes/bruises/ulcers Neuro: A&Ox4, speech fluent, CN II-XII grossly intact, no focal deficits on exam Psych: Appropriate mood and affect for clinical situation Body mass index is 19.8 kg/m??. Data Review: WBC/Hgb/Hct/Plts: 7.00/8.9/27.5/260 (06/11 326) Na/K+/Phos/Mg/Ca: 133/3.6/--/1.6/-- (06/11 326) Bun/Creat/Cl/CO2/Glucose: 3/0.52/104/23/107 (06/11 326) Ptt/Pt/Inr: 38.6/15.9/1.3 (06/11 326) Lab Results Component Value Date ALT 23 05/26/2018 AST 31 05/26/2018 ALKPHOS 47 05/26/2018 BILITOTAL 1.1 05/26/2018 BILIDIRECT 0.1 05/26/2018 EKG: NSR with rate of 86 CT A/P 06/07: IMPRESSION: 1. ??High riding cecum with some wall thickening along the ileocecal junction along the medial wall of the cecum. Previously seen thickening of the wall and air pockets in the cecal wall appear to haveresolved. No free intraperitoneal air to suggest colonic perforation. Some wall thickening along theileocecal junction is nonspecific. 2. ??Colonic diverticulosis. Nonobstructive bowel gas pattern with no gross free air. 3. ??Hepatic steatosis. Stable enhancing focus in the segment 4 of the liver likely a shunt or hemangioma 4. ??Postcholecystectomy status. 5. ??Stable pancreatic calcifications with heterogeneity and fatty replacement of the pancreatic parenchyma likely related to prior pancreatitis. 6. ??Slightly enlarged uterus for the patient's age. Small enhancing focus in the endometrium is indeterminate. Pelvic floor descent with mild cystorectocele. 7. ??Stable hiatal hernia with a large duodenal diverticulum Assessment/Plan: Pamela Espinoza is a 78 y.o. female with a history of prior GI bleed w/ R sided AVMs, diverticulitis,HTN, HLD, hypothyroidism, autoimmune hepatitis, and lupus who presents with as a transfer from [facility] for evaluation of rectal bleeding. Adrenal Insufficiency: Extensive history of autoimmune diseases (SLE, AIH, PMR), ACTH stim test on 06/09 showed Cortisol increase from 1.54 to 10.81. No recent steroid use but was on pred for > 1 year with PMR in the distant past. Endocrine consulted - Follow-up ACTH level - Start on Hydrocortisone replacement, 10 mg in AM and 5 mg at 3PM - Follow-up with endocrinology outpatient Ongoing fevers: CT AP improved, so abdominal source is not likely, will initiate a broad infectious work up. UA unremarkable, CXR improved, BCx's pending, could be secondary to autoimmune disease like lupus as her joints were hurting more at those times. Erythema on right arm demarcated. - Continue to monitor, broaden antibiotics if any evidence of infection comes up during work up - Follow demarcating of erythematous area of arm with plan to start Vanc if worsens, though seems improved today. Colonic microperforation: Overnight 05/28-05/29, after colonoscopy on 05/28, the patient was septic with high fever.CT A/P showed microperforation. Surgery was consulted and recommended no surgical intervention needed but that they would continue to follow along. CTAP 06/07 demonstrates improvement. S/p 2 weeks of Cefepime/flagyl -> cipro/flagyl ended on 06/11. - Continue to monitor Hyponatremia, resolved: Patient has been hyponatremic on and off throughout the admission. She appears euvolemic. Urine osms 268, urine sodium 62, Cortisol decreased, TSH normal, Likely secondary to adrenal insufficiency. - CTM Swelling in RUE: Initially had a PIV - Duplex of RUE showed acute superficial thrombus is noted in the right basilic vein from the mid forearm to the antecubital fossa. - Warm compress Nausea / Vomiting - likely 2/2 to perforation - Improved with changing anti-emetic regimen. Zofran with Compazine PRN as compazine is too sedating, QRS is 472 on 06/04 Cough: ongoing, infrequent with post-tussive emesis -Cepacol cough drops Acute Blood loss anemia 2/2 GI Bleed: R sided AVMs, Stage III hemorrhoids, diverticuli noted in colonoscopy from outside hospital. Hgb dropping from 13.5 down to 9.0 over 3 days. Pt reports BRBPR with clots before admission. Pt remains HD stable. Colonoscopy at [facility] showed hemorrhoids but no AVM - Resolved at this time - Transfuse if Hb <7, type and cross - GI consulted, appreciate recs HTN: Restart home metoprolol at half dose 25 mg BID and monitor ?? Systolic Murmur: Pt did not report knowing of this in the past. Her last Echo was in 2011. She also reports that she was possibly told once (in [place]) that she has AFib We will repeat echo and get anEKG (did not show any Afib). -TTE 05/30 - LVEF preserved 60%, No , moderate AV regurgitation, mld-moderate MVR -EKG w/ NSR at a rate of 86 ?? Autoimmune Hepatitis: -Continue budesonide ?? Systemic Lupus Erythematosus: -Continue plaquenil ?? Glaucoma -Continue timolol, xalatan, and alphagan ?? Hypothyroidism -Continue synthroid FEN/GI: DIET REGULAR Ppx: SCDs Dispo: Admission on GM5 Code Status: Full Code Signed, Lupillo Chairez MD PGY-1, Resident, Department of Internal Medicine [facility] [phone] Associated attestation - Perico Aviles MD - 06/11/2018 1:30 PM EST Attending attestation: I saw and evaluated the patient independently. I discussed the plan of care with the residents. I have reviewed the resident note and agree with the findings and plan of care as documented. In short, Ms Espinoza is doing a little better today. She will try to eat more. Remains afebrile. Shenotes some red discoloration of her stool concnering for blood Microperforation - improving, finishing antibiotics today Adrenal insufficiency - Cont HC Possible LGIB - Monitor Hgb - Monitor for ongoing bleeding - Likely hemorrhoidal, but uncertain atthis time Date of service: 06/11/2018 Perico Aviles MDMes[facility] Hospit[facility]han[facility], Joslyn Cardoso MD - 06/10/2018 1:48 PM ESTBrief GI Update Note Pamela Espinoza is a 78 y.o. female who has a past history notable for history of GI bleed from rightsided AVM, recurrent diverticulitis, HTN, HLD, AIH, lupus. She was transferred from [facility] for evaluation of hematochezia for 5days. She had colonoscopy done that showed multiple right sided AVM in the cecum and proximal colon and bleeding diverticula. Her Hb dropped from 14 to 9.Treatment was not available so she was transferred. Colonoscopy c/b microperforation at polypectomy site. Patient managed conservatively (IV Abx and IVF) with clinical improvement and resolution. - GI signing off - Recommend PCP follow up, no GI follow up indicated - Please call with any questions. Joslyn Savage MD PGY-5 Division of Gastroenterology, Hepatology, and Nutrition Pager: [phone] Marleny Quevedo RN - 06/10/2018 11:55 AM [id number] Progress Note Anticipated Discharge Plan as of 06/10/2018 11:55 AM Expected Discharge Date: 06/12/2018 Anticipated discharge disposition: Home Barriers to Discharge Barriers to Discharge: Complex Disposition Barriers to Discharge Comment : Medical stability; cont to monitor for microperf complications; afebrile; complete ATB with end date 06/12; CX NGTD; CT abd improved; po intake poor; cont current medical mgmt Medical Milestone Medical Milestone : cont current medical mgmt Bindu Quevedo RN/[facility] Medicine [phone] Chairez MD - 06/10/2018 7:31 AM ESTFormatting of this note may be different from the original. Internal Medicine Daily Progress Note Patient: Pamela Espinoza, 1940, [id number] Physician: Lupillo Chairez MD, GM5 Service Subjective/Interval History: Vitals and nursing notes reviewed for the past 24 hours. She had a temperature of 99.0 in the last 24 hrs. She was feeling better this morning and her tenderness and erythema in her arm has decreased but she has had increased swelling. She is less nauseous this morning. Endocrinology saw her yesterdayand started hydrocortisone. She states that she has a history of possible adrenal insufficiency and has been worked up previously and that she decompensates easily per family. She has had minimal bowelmovements and refused a suppository. Medications: Continuous: Scheduled: bimatoprost 1 drop QHS brimonidine 1 drop BID budesonide 3 mg QAM Ciprofloxacin (CIPRO) IVPB 400 mg Q12HNS heparin 5,000 Units Q8H hydrocortisone 10 mg QAM hydrocortisone 5 mg Every dinner hydroxychloroquine 200 mg Daily levothyroxine 75 mcg Before BKF metronidazole 500 mg Q8H ondansetron 4mg/2ml 4 mg Q6H Or ondansetron 4 mg Q6H timolol maleate 1 drop Daily PRN:acetaminophen, alum/mag hydrox.-simethicone, benzocaine-menthol, calcium carbonate antacid, dextrose, melatonin, oxyCODONE, prochlorperazine OR prochlorperazine, sodium chloride 0.9% Objective: Vitals: 06/10/18400 BP: 123/72 Pulse: 86 Resp: 18 Temp: 98.3 ??F (36.8 ??C) O2 Device: room air (06/10/18400) Flow (L/min): 0 (06/05/182323) Gen: NAD, A&Ox4, good eye contact, well appearing, responds appropriately HEENT: atraumatic, normocephalic, face symmetric, sclerae anicteric, mucous membranes moist, Resp: no visible chest wall deformities, non-labored breathing, bibasilar crackles CV: regular rate, systolic murmur, normal S1/S2, GI: soft, mild tenderness to palpation in RUQ, non-distended, NABS, no rebound or guarding Ext: warm and well perfused, pulses intact, no LE edema, no clubbing or cyanosis; R&LUE have diffuse bruising. RUE has non erythematous swelling at site of extravasation. Skin: intact, no rashes/bruises/ulcers Neuro: A&Ox4, speech fluent, CN II-XII grossly intact, no focal deficits on exam Psych: Appropriate mood and affect for clinical situation Body mass index is 19.8 kg/m??. Data Review: WBC/Hgb/Hct/Plts: 6.79/9.0/27.8/252 (06/10 244) Na/K+/Phos/Mg/Ca: 140/3.5/--/1.8/-- (06/10 244) Bun/Creat/Cl/CO2/Glucose: 2/0.62/110/22/115 (06/10 244) Ptt/Pt/Inr: 35.2/16.8/1.4 (06/10 244) Lab Results Component Value Date ALT 23 05/26/2018 AST 31 05/26/2018 ALKPHOS 47 05/26/2018 BILITOTAL 1.1 05/26/2018 BILIDIRECT 0.1 05/26/2018 EKG: NSR with rate of 86 CT A/P 06/07: IMPRESSION: 1. ??High riding cecum with some wall thickening along the ileocecal junction along the medial wall of the cecum. Previously seen thickening of the wall and air pockets in the cecal wall appear to haveresolved. No free intraperitoneal air to suggest colonic perforation. Some wall thickening along theileocecal junction is nonspecific. 2. ??Colonic diverticulosis. Nonobstructive bowel gas pattern with no gross free air. 3. ??Hepatic steatosis. Stable enhancing focus in the segment 4 of the liver likely a shunt or hemangioma 4. ??Postcholecystectomy status. 5. ??Stable pancreatic calcifications with heterogeneity and fatty replacement of the pancreatic parenchyma likely related to prior pancreatitis. 6. ??Slightly enlarged uterus for the patient's age. Small enhancing focus in the endometrium is indeterminate. Pelvic floor descent with mild cystorectocele. 7. ??Stable hiatal hernia with a large duodenal diverticulum Assessment/Plan: Pamela Espinoza is a 78 y.o. female with a history of prior GI bleed w/ R sided AVMs, diverticulitis,HTN, HLD, hypothyroidism, autoimmune hepatitis, and lupus who presents with as a transfer from [facility] for evaluation of rectal bleeding. Colonic microperforation: Overnight 05/28-05/29, after colonoscopy on 05/28, the patient was septic with high fever.CT A/P showed microperforation. Surgery was consulted and recommended no surgical intervention needed but that they would continue to follow along. CTAP 06/07 demonstrates improvement. Plan - Adv to regular diet on 06/01 - Transitioning from Cefepime/Flagyl (05/28->06/11) to PO Cipro/Flagyl when able with end date 06/12. Adrenal Insufficiency: Extensive history of autoimmune diseases (SLE, AIH, PMR), ACTH stim test on 06/09 showed Cortisol increase from 1.54 to 10.81. No recent steroid use but was on pred for > 1 year with PMR in the distant past. Endocrine consulted - Follow-up ACTH level - Start on Hydrocortisone replacement, 10 mg in AM and 5 mg at 3PM - Follow-up with endocrinology outpatient Ongoing fevers: CT AP improved, so abdominal source is not likely, will initiate a broad infectious work up. UA unremarkable, CXR improved, BCx's pending, could be secondary to autoimmune disease like lupus as her joints were hurting more at those times. Erythema on right arm demarcated. - Continue to monitor, broaden antibiotics if any evidence of infection comes up during work up - Follow demarcating of erythematous area of arm with plan to start Vanc if worsens, though seems improved today. Hyponatremia: Patient has been hyponatremic on and off throughout the admission. She appears euvolemic. Urine osms 268, urine sodium 62, Cortisol decreased, TSH normal, Likely secondary to adrenal insufficiency. - CTM, today's normal sodium seemed atypical, will follow-up with tomorrow's level to look for resolution Swelling in RUE: Initially had a PIV - Duplex of RUE showed acute superficial thrombus is noted in the right basilic vein from the mid forearm to the antecubital fossa. - Plan to treat with warm compress Nausea / Vomiting - likely 2/2 to perforation - Improved with changing anti-emetic regimen. Zofran with Compazine PRN as compazine is too sedating, QRS is 472 on 06/04 Cough: ongoing, infrequent with post-tussive emesis -Cepacol cough drops Acute Blood loss anemia 2/2 GI Bleed: R sided AVMs, Stage III hemorrhoids, diverticuli noted in colonoscopy from outside hospital. Hgb dropping from 13.5 down to 9.0 over 3 days. Pt reports BRBPR with clots before admission. Pt remains HD stable. Colonoscopy at [facility] showed hemorrhoids but no AVM - Resolved at this time - Transfuse if Hb <7, type and cross - GI consulted, appreciate recs HTN: Home medication includes metoprolol; holding for now ?? Systolic Murmur: Pt did not report knowing of this in the past. Her last Echo was in 2011. She also reports that she was possibly told once (in [place]) that she has AFib We will repeat echo and get anEKG (did not show any Afib). -TTE 05/30 - LVEF preserved 60%, No , moderate AV regurgitation, mld-moderate MVR -EKG w/ NSR at a rate of 86 ?? Autoimmune Hepatitis: -Continue budesonide ?? Systemic Lupus Erythematosus: -Continue plaquenil ?? Glaucoma -Continue timolol, xalatan, and alphagan ?? Hypothyroidism -Continue synthroid FEN/GI: DIET REGULAR Ppx: SCDs Dispo: Admission on 5 Code Status: Full Code Signed, Lupillo Chairez MD PGY-1, Resident, Department of Internal Medicine [facility] [phone] Associated attestation - Perico Aviles MD - 06/10/2018 8:07 PM EST Attending attestation: I saw and evaluated the patient independently. I discussed the plan of care with the residents. I have reviewed the resident note and agree with the findings and plan of care as documented. In short, Ms Espinoza states that she is feeling a little better today. Remains afebrile. Still with poor po intake Micro perf - finish antibiotics tomorrow Adrenal insufficiency - started on steroids 06/09 Date of service: 06/10/2018 Perico Aviles MDHealthalliance [facility] CampusLupillo MD - 06/09/2018 7:22 AM ESTFormatting of this note may be different from the original. Internal Medicine Daily Progress Note Patient: Pamela Espinoza, 1940, [id number] Physician: Lupillo Chairez MD, [facility] Service Subjective/Interval History: Vitals and nursing notes reviewed for the past 24 hours. She had a temperature of 99.0 in the last 24 hrs. She was feeling better this morning and her tenderness and erythema in her arm had decreased. She is still not very hungry and not having great PO intake. She had a likely positive adrenal insufficiency test this AM which cold explain the FTT. Medications: Continuous: Scheduled: bimatoprost 1 drop QHS brimonidine 1 drop BID budesonide 3 mg QAM Ciprofloxacin (CIPRO) IVPB 400 mg Q12HNS heparin 5,000 Units Q8H hydroxychloroquine 200 mg Daily levothyroxine 75 mcg Before BKF metronidazole 500 mg Q8H ondansetron 4mg/2ml 4 mg Q6H Or ondansetron 4 mg Q6H potassium chloride 10 mEq Q2H timolol maleate 1 drop Daily PRN:acetaminophen, alum/mag hydrox.-simethicone, benzocaine-menthol, calcium carbonate antacid, dextrose, melatonin, oxyCODONE, prochlorperazine OR prochlorperazine, sodium chloride 0.9% Objective: Vitals: 06/09/18419 BP: 146/68 Pulse: 98 Resp: 16 Temp: 98.7 ??F (37.1 ??C) O2 Device: room air (06/09/18419) Flow (L/min): 0 (06/05/184) Gen: NAD, A&Ox4, good eye contact, well appearing, responds appropriately HEENT: atraumatic, normocephalic, face symmetric, sclerae anicteric, mucous membranes moist, Resp: no visible chest wall deformities, non-labored breathing, bibasilar crackles CV: regular rate, systolic murmur, normal S1/S2, GI: soft, mild tenderness to palpation in RUQ, non-distended, NABS, no rebound or guarding Ext: warm and well perfused, pulses intact, no LE edema, no clubbing or cyanosis; R&LUE have diffuse bruising. RUE has erythema and warmth at site of extravasation. Skin: intact, no rashes/bruises/ulcers Neuro: A&Ox4, speech fluent, CN II-XII grossly intact, no focal deficits on exam Psych: Appropriate mood and affect for clinical situation Body mass index is 19.8 kg/m??. Data Review: WBC/Hgb/Hct/Plts: 6.26/9.3/29.0/241 (06/09 402) Na/K+/Phos/Mg/Ca: 131/3.1/--/1.8/-- (06/09 402) Bun/Creat/Cl/CO2/Glucose: 3/0.57/100/23/104 (06/09 402) Ptt/Pt/Inr: 120.8/17.3/1.4 (06/09 402) Lab Results Component Value Date ALT 23 05/26/2018 AST 31 05/26/2018 ALKPHOS 47 05/26/2018 BILITOTAL 1.1 05/26/2018 BILIDIRECT 0.1 05/26/2018 EKG: NSR with rate of 86 CT A/P 06/07: IMPRESSION: 1. ??High riding cecum with some wall thickening along the ileocecal junction along the medial wall of the cecum. Previously seen thickening of the wall and air pockets in the cecal wall appear to haveresolved. No free intraperitoneal air to suggest colonic perforation. Some wall thickening along theileocecal junction is nonspecific. 2. ??Colonic diverticulosis. Nonobstructive bowel gas pattern with no gross free air. 3. ??Hepatic steatosis. Stable enhancing focus in the segment 4 of the liver likely a shunt or hemangioma 4. ??Postcholecystectomy status. 5. ??Stable pancreatic calcifications with heterogeneity and fatty replacement of the pancreatic parenchyma likely related to prior pancreatitis. 6. ??Slightly enlarged uterus for the patient's age. Small enhancing focus in the endometrium is indeterminate. Pelvic floor descent with mild cystorectocele. 7. ??Stable hiatal hernia with a large duodenal diverticulum Assessment/Plan: Pamela Espinoza is a 78 y.o. female with a history of prior GI bleed w/ R sided AVMs, diverticulitis,HTN, HLD, hypothyroidism, autoimmune hepatitis, and lupus who presents with as a transfer from [facility] for evaluation of rectal bleeding. Colonic microperforation: Overnight 05/28-05/29, after colonoscopy on 05/28, the patient was septic with high fever.CT A/P showed microperforation. Surgery was consulted and recommended no surgical intervention needed but that they would continue to follow along. CTAP 06/07 demonstrates improvement. Plan - Adv to regular diet on 06/01 - Transitioning from Cefepime/Flagyl (05/28->06/11) to PO Cipro/Flagyl when able with end date 06/12. Ongoing fevers: CT AP improved, so abdominal source is not likely, will initiate a broad infectious work up. UA unremarkable, CXR improved, BCx's pending, could be secondary to autoimmune disease like lupus as her joints were hurting more at those times. Erythema on right arm demarcated. - Continue to monitor, broaden antibiotics if any evidence of infection comes up during work up - Follow demarcating of erythematous area of arm with plan to start Vanc if worsens, though seems improved today. Hyponatremia: Patient has been hyponatremic on and off throughout the admission. She appears euvolemic. Urine osms 268, urine sodium 62, Cortisol decreased, TSH normal, Likely secondary to adrenal insufficiency. - CTM Adrenal Insufficiency: Extensive history of autoimmune diseases (SLE, AIH, PMR), ACTH stim test on 06/09 showed Cortisol increase from 1.54 to 10.81. No recent steroid use but was on pred for > 1 year with PMR in the distant past. - Plan to consult Endocrine for further recommendations regarding treatment. Nausea / Vomiting - likely 2/2 to perforation - Improved with changing anti-emetic regimen. Zofran with Compazine PRN as compazine is too sedating, QRS is 472 on 06/04 Cough: ongoing, infrequent with post-tussive emesis -Cepacol cough drops Acute Blood loss anemia 2/2 GI Bleed: R sided AVMs, Stage III hemorrhoids, diverticuli noted in colonoscopy from outside hospital. Hgb dropping from 13.5 down to 9.0 over 3 days. Pt reports BRBPR with clots before admission. Pt remains HD stable. Colonoscopy at [facility] showed hemorrhoids but no AVM - Resolved at this time - Transfuse if Hb <7, type and cross - GI consulted, appreciate recs HTN: Home medication includes metoprolol; holding for now ?? Systolic Murmur: Pt did not report knowing of this in the past. Her last Echo was in 2011. She also reports that she was possibly told once (in [place]) that she has AFib We will repeat echo and get anEKG (did not show any Afib). -TTE 05/30 - LVEF preserved 60%, No , moderate AV regurgitation, mld-moderate MVR -EKG w/ NSR at a rate of 86 ?? Autoimmune Hepatitis: -Continue budesonide ?? Systemic Lupus Erythematosus: -Continue plaquenil ?? Glaucoma -Continue timolol, xalatan, and alphagan ?? Hypothyroidism -Continue synthroid FEN/GI: DIET REGULAR Ppx: SCDs Dispo: Admission on GM5 Code Status: Full Code Signed, Lupillo Chairez MD PGY-1, Resident, Department of Internal Medicine [facility] [phone] Associated attestation - Perico Aviles MD - 06/09/2018 5:33 PM EST Attending attestation: I saw and evaluated the patient independently. I discussed the plan of care with the residents. I have reviewed the resident note and agree with the findings and plan of care as documented. In short, Ms Espinoza is stable, continues to have rare cough which causes vomiting. No new complaints Microperforation - improving on imaging, complete antibiotics 06/12 Fever - afebrile 24h, cultures NGTD, antibiotics completing as above Inadequate cortisol stim - will discuss with endo. Date of service: 06/09/2018 Nate Sarah, Lupilol Cr MD - 06/08/2018 7:25 AM ESTFormatting of this note may be different from the original. Internal Medicine Daily Progress Note Patient: Pamela Espinoza, 1940, [id number] Physician: Lupillo Chairez MD, GM5 Service Subjective/Interval History: Vitals and nursing notes reviewed for the past 24 hours. She had a temperature of 99.7 in the last 24 hrs. CXR was notable for improvement in pleural effusion and basilar atelectasis. She continues to have nausea that is relieved by Zofran. She is tolerating a slightly increased diet and wants to try more clear ensure. She is noting liquid stools (minimal amounts) every 2-4 hours. She is having pain, tenderness and erythema at her left elbow where her IV infiltrated. It feels better with a hot pack but she seems to have decreased ROM Medications: Continuous: Scheduled: bimatoprost 1 drop QHS brimonidine 1 drop BID budesonide 3 mg QAM Ciprofloxacin (CIPRO) IVPB 400 mg Q12HNS heparin 5,000 Units Q8H hydroxychloroquine 200 mg Daily levothyroxine 75 mcg Before BKF metronidazole 500 mg Q8H ondansetron 4mg/2ml 4 mg Q6H Or ondansetron 4 mg Q6H timolol maleate 1 drop Daily PRN:acetaminophen, alum/mag hydrox.-simethicone, benzocaine-menthol, calcium carbonate antacid, dextrose, melatonin, oxyCODONE, prochlorperazine OR prochlorperazine, sodium chloride 0.9% Objective: Vitals: 06/08/18 0316 BP: 120/58 Pulse: 100 Resp: 20 Temp: 98.5 ??F (36.9 ??C) O2 Device: room air (06/07/181949) Flow (L/min): 0 (06/05/182323) Gen: NAD, A&Ox4, good eye contact, well appearing, responds appropriately HEENT: atraumatic, normocephalic, face symmetric, sclerae anicteric, mucous membranes moist, Resp: no visible chest wall deformities, non-labored breathing, bibasilar crackles CV: regular rate, systolic murmur, normal S1/S2, GI: soft, mild tenderness to palpation in RUQ, non-distended, NABS, no rebound or guarding Ext: warm and well perfused, pulses intact, no LE edema, no clubbing or cyanosis; R&LUE have diffuse bruising. RUE has erythema and warmth at site of extravasation. Skin: intact, no rashes/bruises/ulcers Neuro: A&Ox4, speech fluent, CN II-XII grossly intact, no focal deficits on exam Psych: Appropriate mood and affect for clinical situation Body mass index is 19.23 kg/m??. Data Review: WBC/Hgb/Hct/Plts: 7.05/9.7/29.7/236 (06/08 256) Na/K+/Phos/Mg/Ca: 132/3.3/--/1.8/-- (06/08 256) Bun/Creat/Cl/CO2/Glucose: 3/0.62/101/23/108 (06/08 256) Ptt/Pt/Inr: 42.4/16.3/1.3 (06/08 256) Lab Results Component Value Date ALT 23 05/26/2018 AST 31 05/26/2018 ALKPHOS 47 05/26/2018 BILITOTAL 1.1 05/26/2018 BILIDIRECT 0.1 05/26/2018 EKG: NSR with rate of 86 CT A/P 06/07: IMPRESSION: 1. ??High riding cecum with some wall thickening along the ileocecal junction along the medial wall of the cecum. Previously seen thickening of the wall and air pockets in the cecal wall appear to haveresolved. No free intraperitoneal air to suggest colonic perforation. Some wall thickening along theileocecal junction is nonspecific. 2. ??Colonic diverticulosis. Nonobstructive bowel gas pattern with no gross free air. 3. ??Hepatic steatosis. Stable enhancing focus in the segment 4 of the liver likely a shunt or hemangioma 4. ??Postcholecystectomy status. 5. ??Stable pancreatic calcifications with heterogeneity and fatty replacement of the pancreatic parenchyma likely related to prior pancreatitis. 6. ??Slightly enlarged uterus for the patient's age. Small enhancing focus in the endometrium is indeterminate. Pelvic floor descent with mild cystorectocele. 7. ??Stable hiatal hernia with a large duodenal diverticulum Assessment/Plan: Pamela Espinoza is a 78 y.o. female with a history of prior GI bleed w/ R sided AVMs, diverticulitis,HTN, HLD, hypothyroidism, autoimmune hepatitis, and lupus who presents with as a transfer from [facility] for evaluation of rectal bleeding. Colonic microperforation: Overnight 05/28-05/29, after colonoscopy on 05/28, the patient was septic with high fever.CT A/P showed microperforation. Surgery was consulted and recommended no surgical intervention needed but that they would continue to follow along. Plan - Adv to regular diet on 06/01 - Transitioning from Cefepime/Flagyl (05/28->06/11) to PO Cipro/Flagyl when able with end date 06/12. - CTAP 06/07 demonstrates improvement Ongoing fevers: CT AP improved, so abdominal source is not likely, will initiate a broad infectious work up. UA unremarkable, CXR improved, BCx's pending - Continue to monitor, broaden antibiotics if any evidence of infection comes up during work up - Could also be related to lupus - Demarcate erythematous area of arm with plan to start Vanc if worsens Hyponatremia: Patient has been hyponatremic on and off throughout the admission. She appears euvolemic. - Urine osms 268, urine sodium 62, Cortisol decreased, TSH normal - Could be related to thyroid abnormality, adrenal insufficiency, or SIADH - ACTH stim test - Monitor Nausea / Vomiting - likely 2/2 to perforation - Improved with changing anti-emetic regimen. Zofran with Compazine PRN as compazine is too sedating, QRS is 472 on 06/04 Cough: Resolved today - d/c'd IVF; will consider diuresis if does not improve -Cepacol cough drops Acute Blood loss anemia 2/2 GI Bleed: R sided AVMs, Stage III hemorrhoids, diverticuli noted in colonoscopy from outside hospital. Hgb dropping from 13.5 down to 9.0 over 3 days. Pt reports BRBPR with clots before admission. Pt remains HD stable. Colonoscopy at [facility] showed hemorrhoids but no AVM - Resolved at this time - Transfuse if Hb <7, type and cross - GI consulted, appreciate recs HTN: Home medication includes metoprolol; holding for now ?? Systolic Murmur: Pt did not report knowing of this in the past. Her last Echo was in 2011. She also reports that she was possibly told once (in [place]) that she has AFib We will repeat echo and get anEKG (did not show any Afib). -TTE 05/30 - LVEF preserved 60%, No , moderate AV regurgitation, mld-moderate MVR -EKG w/ NSR at a rate of 86 ?? Autoimmune Hepatitis: -Continue budesonide ?? Systemic Lupus Erythematosus: -Continue plaquenil ?? Glaucoma -Continue timolol, xalatan, and alphagan ?? Hypothyroidism -Continue synthroid FEN/GI: DIET REGULAR Ppx: SCDs Dispo: Admission on GM5 Code Status: Full Code Signed, Lupillo Chairez MD PGY-1, Resident, Department of Internal Medicine [facility] [phone] Associated attestation - Perico Aviles MD - 06/08/2018 5:13 PM EST Attending attestation: I saw and evaluated the patient independently. I discussed the plan of care with the residents. I have reviewed the resident note and agree with the findings and plan of care as documented. In short, Ms Espinoza is doing ok right now. She notes some nausea and has vomiting, but only after ashort coughing spell. Afebrile 24h. Infiltrated area on right forearm needs to be watched for developing cellulits Microperf - Cont IV antibiotics Fever - work up t hus far negative - fu blood cultures Date of service: 06/08/2018 Terry Sarah Kenneth D, DO - 06/07/2018 11:18 AM ESTFormatting of this note may be different from the original. Internal Medicine Daily Progress Note Patient: Pamela Espinoza, 1940, [id number] Physician: Joshua Wiseman DO, GM5 Service Subjective/Interval History: Vitals and nursing notes reviewed for the past 24 hours. She had a temperature of 101.3 in the last [address] AP completed and improved from prior. She notes continued RLQ abdominal pain. She has beenhaving some loose stool since getting the PO contrast for the CT scan. She notes she has been able to eat and that her nausea is well controlled at this time. Medications: Continuous: Scheduled: bimatoprost 1 drop QHS brimonidine 1 drop BID budesonide 3 mg QAM Ciprofloxacin (CIPRO) IVPB 400 mg Q12HNS heparin 5,000 Units Q8H hydroxychloroquine 200 mg Daily levothyroxine 75 mcg Before BKF metronidazole 500 mg Q8H ondansetron 4mg/2ml 4 mg Q6H Or ondansetron 4 mg Q6H timolol maleate 1 drop Daily PRN:acetaminophen, alum/mag hydrox.-simethicone, benzocaine-menthol, calcium carbonate antacid, dextrose, melatonin, oxyCODONE, prochlorperazine OR prochlorperazine, sodium chloride 0.9% Objective: Vitals: 06/07/18 0833 BP: 126/59 Pulse: 113 Resp: 18 Temp: 99.6 ??F (37.6 ??C) O2 Device: room air (06/07/18 0833) Flow (L/min): 0 (06/05/18 2324) Gen: NAD, A&Ox4, good eye contact, well appearing, responds appropriately HEENT: atraumatic, normocephalic, face symmetric, sclerae anicteric, mucous membranes moist, Resp: no visible chest wall deformities, non-labored breathing, bibasilar crackles CV: regular rate, systolic murmur, normal S1/S2, GI: soft, mild tenderness to palpation in RUQ, non-distended, NABS, no rebound or guarding Ext: warm and well perfused, pulses intact, no LE edema, no clubbing or cyanosis Skin: intact, no rashes/bruises/ulcers Neuro: A&Ox4, speech fluent, CN II-XII grossly intact, no focal deficits on exam Psych: Appropriate mood and affect for clinical situation Body mass index is 19.23 kg/m??. Data Review: WBC/Hgb/Hct/Plts: 8.76/9.7/30.2/231 (06/07 331) Na/K+/Phos/Mg/Ca: 130/3.6/--/1.8/-- (06/07 331) Bun/Creat/Cl/CO2/Glucose: 4/0.61/100/23/83 (06/07 331) Ptt/Pt/Inr: 37.4/16.1/1.3 (06/07 331) Lab Results Component Value Date ALT 23 05/26/2018 AST 31 05/26/2018 ALKPHOS 47 05/26/2018 BILITOTAL 1.1 05/26/2018 BILIDIRECT 0.1 05/26/2018 EKG: NSR with rate of 86 CT A/P 06/07: IMPRESSION: 1. ??High riding cecum with some wall thickening along the ileocecal junction along the medial wall of the cecum. Previously seen thickening of the wall and air pockets in the cecal wall appear to have resolved. No free intraperitoneal air to suggest colonic perforation. Some wall thickening along the ileocecal junction is nonspecific. 2. ??Colonic diverticulosis. Nonobstructive bowel gas pattern with no gross free air. 3. ??Hepatic steatosis. Stable enhancing focus in the segment 4 of the liver likely a shunt or hemangioma 4. ??Postcholecystectomy status. 5. ??Stable pancreatic calcifications with heterogeneity and fatty replacement of the pancreatic parenchyma likely related to prior pancreatitis. 6. ??Slightly enlarged uterus for the patient's age. Small enhancing focus in the endometrium is indeterminate. Pelvic floor descent with mild cystorectocele. 7. ??Stable hiatal hernia with a large duodenal diverticulum Assessment/Plan: Pamela Espinoza is a 78 y.o. female with a history of prior GI bleed w/ R sided AVMs, diverticulitis,HTN, HLD, hypothyroidism, autoimmune hepatitis, and lupus who presents with as a transfer from [facility] for evaluation of rectal bleeding. Colonic microperforation: Overnight 05/28-05/29, after colonoscopy on 05/28, the patient was septic with high fever.CT A/P showed microperforation. Surgery was consulted and recommended no surgical intervention needed but that they would continue to follow along. Plan - Adv to regular diet on 06/01 - Transitioning from Cefepime/Flagyl (05/28->06/11) to PO Cipro/Flagyl when able with end date 06/12. - CTAP 06/07 demonstrates improvement Ongoing fevers: CT AP improved, so abdominal source is not likely, will initiate a broad infectious work up - chest xray - Blood cx - UA - Continue to monitor, broaden antibiotics if any evidence of infection comes up during work up - Could also be related to lupus Hyponatremia: Patient has been hyponatremic on and off throughout the admission. She appears euvolemic. - Urine osms 268, urine sodium 62 - Could be related to thyroid abnormality, adrenal insufficiency, or SIADH - Check TSH and AM cortisol - Monitor Nausea / Vomiting - likely 2/2 to perforation - Improved with changing anti-emetic regimen. Zofran with Compazine PRN as compazine is too sedating, QRS is 472 on 06/04 Cough: Resolved today - d/c'd IVF; will consider diuresis if does not improve -Cepacol cough drops Acute Blood loss anemia 2/2 GI Bleed: R sided AVMs, Stage III hemorrhoids, diverticuli noted in colonoscopy from outside hospital. Hgb dropping from 13.5 down to 9.0 over 3 days. Pt reports BRBPR with clots before admission. Pt remains HD stable. Colonoscopy at [facility] showed hemorrhoids but no AVM - Resolved at this time - Transfuse if Hb <7, type and cross - GI consulted, appreciate recs HTN: Home medication includes metoprolol; holding for now ?? Systolic Murmur: Pt did not report knowing of this in the past. Her last Echo was in 2011. She also reports that she was possibly told once (in [place]) that she has AFib We will repeat echo and get anEKG (did not show any Afib). -TTE 05/30 - LVEF preserved 60%, No , moderate AV regurgitation, mld-moderate MVR -EKG w/ NSR at a rate of 86 ?? Autoimmune Hepatitis: -Continue budesonide ?? Systemic Lupus Erythematosus: -Continue plaquenil ?? Glaucoma -Continue timolol, xalatan, and alphagan ?? Hypothyroidism -Continue synthroid FEN/GI: DIET REGULAR Ppx: SCDs Dispo: Admission on 5 Code Status: Full Code Signed, Joshua Wiseman, PGY-3 Associated attestation - Perico Aviles MD - 06/07/2018 8:10 PM EST Attending attestation: I saw and evaluated the patient independently. I discussed the plan of care with the residents. I have reviewed the resident note and agree with the findings and plan of care as documented. In short, MS Espinoza is feeling ok today. Nausea is better controlled without po antibiotics. Microperf - improving on recent CT Fever - unclear source, cont current antibiotics, obtain cultures and procal Date of service: 06/07/2018 [facility], Lupillo Cr MD - 06/06/2018 7:56 AM ESTFormatting of this note may be different from the original. Internal Medicine Daily Progress Note Patient: Pamela Espinoza, 1940, [id number] Physician: Luplilo Chairez MD, [facility] Service Subjective/Interval History: Vitals and nursing notes reviewed for the past 24 hours. She had a temperature of 100.7 yesterday with minimal abdominal tenderness. A CTAP was ordered and is pending for further evaluation. She hasn'jermaine a T above 99.4 since. Her nausea and intake improved with scheduled zofran. She reports less drowsiness. No CP, Abdominal pain (slight tenderness), diarrhea. Minimal BM's. Medications: Continuous: Scheduled: bimatoprost 1 drop QHS brimonidine 1 drop BID budesonide 3 mg QAM Ciprofloxacin (CIPRO) IVPB 400 mg Q12HNS heparin 5,000 Units Q8H hydroxychloroquine 200 mg Daily levothyroxine 75 mcg Before BKF metronidazole 500 mg Q8H ondansetron 4mg/2ml 4 mg Q6H Or ondansetron 4 mg Q6H timolol maleate 1 drop Daily PRN:acetaminophen, alum/mag hydrox.-simethicone, benzocaine-menthol, calcium carbonate antacid, dextrose, melatonin, oxyCODONE, prochlorperazine OR prochlorperazine, sodium chloride 0.9% Objective: Vitals: 06/06/18314 BP: 136/65 Pulse: 87 Resp: 20 Temp: 99 ??F (37.2 ??C) O2 Device: room air (06/05/18 1519) Flow (L/min): 0 (06/05/18 2324) Gen: NAD, A&Ox4, good eye contact, well appearing, responds appropriately HEENT: atraumatic, normocephalic, face symmetric, sclerae anicteric, mucous membranes moist, Resp: no visible chest wall deformities, non-labored breathing, CTAB, no wheezes/crackles/rales CV: regular rate, systolic murmur, normal S1/S2, GI: soft, mild tenderness to palpation in RUQ, non-distended, NABS, no rebound or guarding Ext: warm and well perfused, pulses intact, no LE edema, no clubbing or cyanosis Skin: intact, no rashes/bruises/ulcers Neuro: A&Ox4, speech fluent, CN II-XII grossly intact, no focal deficits on exam Psych: Appropriate mood and affect for clinical situation Body mass index is 20.34 kg/m??. Data Review: WBC/Hgb/Hct/Plts: 7.05/9.9/30.3/205 (06/06 311) Na/K+/Phos/Mg/Ca: 131/3.7/--/2.0/-- (06/06 311) Bun/Creat/Cl/CO2/Glucose: 4/0.55/102/22/97 (06/06 311) Ptt/Pt/Inr: 43.9/16.2/1.3 (06/06 311) Lab Results Component Value Date ALT 23 05/26/2018 AST 31 05/26/2018 ALKPHOS 47 05/26/2018 BILITOTAL 1.1 05/26/2018 BILIDIRECT 0.1 05/26/2018 EKG: NSR with rate of 86 Assessment/Plan: Pamela Espinoza is a 78 y.o. female with a history of prior GI bleed w/ R sided AVMs, diverticulitis,HTN, HLD, hypothyroidism, autoimmune hepatitis, and lupus who presents with as a transfer from [facility] for evaluation of rectal bleeding. Colonic microperforation: Overnight 05/28-05/29, after colonoscopy on 05/28, the patient was septic with high fever.CT A/P showed microperforation. Surgery was consulted and recommended no surgical intervention needed but that they would continue to follow along. Plan - Adv to regular diet on 06/01 - Transitioning from Cefepime/Flagyl (05/28->06/11) to PO Cipro/Flagyl when able with end date 06/12. - CTAP for further evaluation pending Nausea / Vomiting - likely 2/2 to perforation -Improved with changing anti-emetic regimen. Zofran with Compazine PRN as compazine is too sedating,QRS is 472 on 06/04 Cough: Pt is endorsing a new cough on 05/31. She does endorse post-nasal drainage. CXR shows progression of L pleural effusion, likely 2/2 to volume overload Plan - d/c'd IVF; will consider diuresis if does not improve -Cepacol cough drops Acute Blood loss anemia 2/2 GI Bleed: R sided AVMs, Stage III hemorrhoids, diverticuli noted in colonoscopy from outside hospital. Hgb dropping from 13.5 down to 9.0 over 3 days. Pt reports BRBPR with clots before admission. Pt remains HD stable. Colonoscopy at [facility] showed hemorrhoids but no AVM -Transfuse if Hb <7, type and cross -GI consulted, appreciate recs HTN: Home medication includes metoprolol; holding for now ?? Systolic Murmur: Pt did not report knowing of this in the past. Her last Echo was in 2011. She also reports that she was possibly told once (in [place]) that she has AFib We will repeat echo and get anEKG (did not show any Afib). -TTE 05/30 - LVEF preserved 60%, No , moderate AV regurgitation, mld-moderate MVR -EKG w/ NSR at a rate of 86 ?? Autoimmune Hepatitis: -Continue budesonide ?? Systemic Lupus Erythematosus: -Continue plaquenil ?? Glaucoma -Continue timolol, xalatan, and alphagan ?? Hypothyroidism -Continue synthroid FEN/GI: DIET REGULAR Ppx: SCDs Dispo: Admission on GM5 Code Status: Full Code Signed, Lupillo Chairez MD PGY-1, Resident, Department of Internal Medicine [facility] [phone] Associated attestation - Perico Aviles MD - 06/06/2018 2:43 PM EST Attending attestation: I saw and evaluated the patient independently. I discussed the plan of care with the residents. I have reviewed the resident note and agree with the findings and plan of care as documented. In short, Ms Espinoza notes that she feels better since her antibiotics were made IV. Has a tmax of 100.7. Microperf - plan for CTAP due to fever and ongoing N/V Date of service: 06/06/2018 Delmis Sarah Rebecca - 06/05/2018 3:17 PM ESTFormatting of this note may be different from the original. Patient and daughter concerned for (father of daughter) because he is also in the hospital near [place] after an aortic aneurysm. Patient also struggling with her health. Adult children helpingwith both patients. 06/05/18 1400 Clinical Encounter Type Visited With Patient and family together Visit Type Introduction Pastoral Time Spent 30 min Referral Nurse Druze Encounters Druze Needs Prayer Spiritual Assessment Spiritual Observation Spirituality helpful Emotional Observation Anxiety;Grief/Loss Hope Observation Specific hope focus Support Observation Strong support Interventions Provided Active listening;Prayer;Supportive presence Facilitated Sharing of life story;Verbalization of feelings;Sharing hopes & fears;Identifying support system;Identifying Sources of spiritual well-being Explored Sunshine issues;Meaning of illness;Family issues;Expectations Automobile Body Repairer Helper Education Automobile Body Repairer Helper Service Available Yes Outcomes Patient Outcomes Reduced distress;Progressed toward focus on present Family Outcomes Reduced distress;Progressed toward focus on present;Progressed toward meaning Plan of Care Continue Visiting Will follow Values/Beliefs (F) Sunshine Importance [employer] Cultural, Spiritual, Druze Practices [employer] Anna Sherwood MDiv Fraternity Adviser On-call pager:Kashif [phone]; Antoine [phone] Dunia Bone DT - 06/05/2018 1:54 PM ESTFormatting of this note may be different from the original. NUTRITION FOLLOW-UP Current Diet Orders Procedures ??? DIET REGULAR Standing Status: Standing Number of Occurrences: 1 Appetite: fair % PO intake: Per doc flow sheet: Date Breakfast Lunch Dinner 06/04 25% 25% --% 06/03 --% 25% 25% 06/02 50% 50% --% Admit wt:49.8 kg/109 lb Last recorded : 06/04 Weight: 44.1 kg (97 lb 4.8 oz) Height: 147.3 cm (4' 9.99) BMI (Calculated): 23.1 -11% wt change since admit Net I/O's: -4 L Wt Readings from Last 3 Encounters: 06/04/18 44.1 kg (97 lb 4.8 oz) 06/26/12 49.2 kg (108 lb 7.5 oz) Intake/Output Summary (Last 24 hours) at 06/05/18 1354 Last data filed at 06/05/18 1016 Gross per 24 hour Intake 2493.62 ml Output 1250 ml Net 1243.62 ml (Retired/Read Only) Skin (Adult) Skin Color/Characteristics: bruised (ecchymotic) Skin Temperature: warm Skin Moisture: dry Skin Integrity: bruise(s) Sensory Perception: 3-->slightly limited Moisture: 4-->rarely moist Activity: 4-->walks frequently Mobility: 4-->no limitation Nutrition: 3-->adequate Friction and Shear: 3-->no apparent problem Ab Score: 21 Summary : Pt at nutrition risk due to dx, overall wt loss, variable po intakes. Pt having abd pain,plan to have CT today. Receiving meds for nausea. Pt may benefit from oral supplements if po does not improve. Nutrition Plan of Care: 1. Will continue daily meal selections as able. 2. Monitor for significant weight changes 3. Monitor/encourage po intake 4. Edge Setter will continue to follow GONS[place]O Real Pager: [phone] Marleny Quevedo RN - 06/05/2018 1:26 PM [id number] Progress Note Anticipated Discharge Plan as of 06/05/2018 1:26 PM Expected Discharge Date: 06/07/2018 Anticipated discharge disposition: Home Barriers to Discharge Barriers to Discharge: Complex Disposition Barriers to Discharge Comment : medical stability; cont to monitor for microperf sp scope; now with abd pain; plan CT abd today; ACS following; nausea with zofran; IV fluids; cont current medical mgmt Medical Milestone Medical Milestone : cont current medical mgmt; CT abd today for c/o abd pain sp scope with microperf Final Discharge Planning and Transportation Final Discharge Planning Patient Discharged To: (Facility LOC/Home Service(s): Home Plan Plan: home with follow up plan per medicine team Patient/Family In Agreement With Plan: yes Transportation Mode of Transfer: private vehicle Accompanied By: family member Bindu Sae RN/[facility] Medicine [phone], Daniel P, MD - 06/05/2018 7:49 AM ESTFormatting of this note may be different from the original. Internal Medicine Daily Progress Note Patient: Pamela Espinoza, 1940, [id number] Physician: Lupillo Chairez MD, GM5 Service Subjective/Interval History: Vitals and nursing notes reviewed for the past 24 hours. She had a temperature of 100.7 today. Minimal abdominal tenderness. She wasn't able to tolerate her PO meds so ABx were changed to IV and she was too sedated with Compazine so her scheduled antiemetic was changed to Zofran. No CP, Abdominal pain (slight tenderness), diarrhea. Minimal BM's. Medications: Continuous: Scheduled: bimatoprost 1 drop QHS brimonidine 1 drop BID budesonide 3 mg QAM ciprofloxacin 500 mg Q10/10 heparin 5,000 Units Q8H hydroxychloroquine 200 mg Daily levothyroxine 75 mcg Before BKF Magnesium Sulfate IVPB 4 g Once metronidazole 500 mg Q8H potassium chloride 10 mEq Q2H prochlorperazine 10 mg 4x daily Or prochlorperazine 5 mg 4x daily timolol maleate 1 drop Daily PRN:acetaminophen, alum/mag hydrox.-simethicone, benzocaine-menthol, calcium carbonate antacid, dextrose, melatonin, ondansetron 4mg/2ml OR ondansetron, oxyCODONE, sodium chloride 0.9% Objective: Vitals: 06/05/18743 BP: 148/68 Pulse: 92 Resp: 20 Temp: 100.3 ??F (37.9 ??C) O2 Device: room air (06/05/18743) Flow (L/min): 0 (11/14/18 2116) Gen: NAD, A&Ox4, good eye contact, well appearing, responds appropriately HEENT: atraumatic, normocephalic, face symmetric, sclerae anicteric, mucous membranes moist, Resp: no visible chest wall deformities, non-labored breathing, CTAB, no wheezes/crackles/rales CV: regular rate, systolic murmur, normal S1/S2, GI: soft, mild tenderness to palpation in RUQ, non-distended, NABS, no rebound or guarding Ext: warm and well perfused, pulses intact, no LE edema, no clubbing or cyanosis Skin: intact, no rashes/bruises/ulcers Neuro: A&Ox4, speech fluent, CN II-XII grossly intact, no focal deficits on exam Psych: Appropriate mood and affect for clinical situation Body mass index is 20.34 kg/m??. Data Review: WBC/Hgb/Hct/Plts: 6.59/9.8/30.3/177 (06/05 315) Na/K+/Phos/Mg/Ca: 134/3.2/--/1.6/-- (06/05 315) Bun/Creat/Cl/CO2/Glucose: 4/0.54/102/24/95 (06/05 315) Ptt/Pt/Inr: 55.7/17.5/1.4 (06/05 315) Lab Results Component Value Date ALT 23 05/26/2018 AST 31 05/26/2018 ALKPHOS 47 05/26/2018 BILITOTAL 1.1 05/26/2018 BILIDIRECT 0.1 05/26/2018 EKG: NSR with rate of 86 Assessment/Plan: Pamela Espinoza is a 78 y.o. female with a history of prior GI bleed w/ R sided AVMs, diverticulitis,HTN, HLD, hypothyroidism, autoimmune hepatitis, and lupus who presents with as a transfer from [facility] for evaluation of rectal bleeding. Colonic microperforation: Overnight 05/28-05/29, after colonoscopy on 05/28, the patient was septic with high fever.CT A/P showed microperforation. Surgery was consulted and recommended no surgical intervention needed but that they would continue to follow along. Plan - Adv to regular diet on 06/01 - Transitioning from Cefepime/Flagyl (05/28->06/11) to PO Cipro/Flagyl when able with end date 06/12. - CTAP for further evaluation. Nausea / Vomiting - likely 2/2 to perforation -Improved with changing anti-emetic regimen. Zofran with Compazine PRN as compazine is too sedating,QRS is 472 on 06/04 Cough: Pt is endorsing a new cough on 05/31. She does endorse post-nasal drainage. CXR shows progression of L pleural effusion, likely 2/2 to volume overload Plan - d/c'd IVF; will consider diuresis if does not improve -Cepacol cough drops Acute Blood loss anemia 2/2 GI Bleed: R sided AVMs, Stage III hemorrhoids, diverticuli noted in colonoscopy from outside hospital. Hgb dropping from 13.5 down to 9.0 over 3 days. Pt reports BRBPR with clots before admission. Pt remains HD stable. Colonoscopy at [facility] showed hemorrhoids but no AVM -Transfuse if Hb <7, type and cross -GI consulted, appreciate recs HTN: Home medication includes metoprolol; holding for now ?? Systolic Murmur: Pt did not report knowing of this in the past. Her last Echo was in 2011. She also reports that she was possibly told once (in [place]) that she has AFib We will repeat echo and get anEKG (did not show any Afib). -TTE 05/30 - LVEF preserved 60%, No , moderate AV regurgitation, mld-moderate MVR -EKG w/ NSR at a rate of 86 ?? Autoimmune Hepatitis: -Continue budesonide ?? Systemic Lupus Erythematosus: -Continue plaquenil ?? Glaucoma -Continue timolol, xalatan, and alphagan ?? Hypothyroidism -Continue synthroid FEN/GI: DIET REGULAR Ppx: SCDs Dispo: Admission on GM5 Code Status: Full Code Signed, Lupillo Chairez MD PGY-1, Resident, Department of Internal Medicine [facility] [phone] Associated attestation - Perico Aviles MD - 06/05/2018 7:20 PM EST Attending attestation: I saw and evaluated the patient independently. I discussed the plan of care with the residents. I have reviewed the resident note and agree with the findings and plan of care as documented. In short, Ms Espinoza continues to have N/V and was not able to tolerate her pills. She also continues to have low grade temps up to 100.3. Microperforation - Given ongoing poor tolerance of PO and temps will obtain CTAP to ensure no further change in the abd. - Switch antibiotics to IV given intolerance Date of service: 06/05/2018 Perico Aviles, [facility], Sidney Cr MD - 06/04/2018 9:20 AM ESTAcute Care Surgery Progress Note S: No acute events. Minimal ab pain. Continued nausea improved w/ zofran. Tolerated puree diet,improving ab pain. Denies fever, chills, SOB, CP. O: Temp: [98.8 ??F (37.1 ??C)-100.1 ??F (37.8 ??C)] 99.4 ??F (37.4 ??C) Pulse (Heart Rate): [82-112] 112 Resp Rate: [14-20] 16 BP: (116-145)/(58-65) 145/65 O2 Sat (%): [91 %-100 %] 93 % Weight: [44.1 kg (97 lb 4.8 oz)] 44.1 kg (97 lb 4.8 oz) I/O last 3 completed shifts: In: 995.5 [P.O.:285; IV Piggyback:710.5] Out: 1725 [Urine:1725] PE: Gen: NAD, resting comfortably Lungs: normal work of breathing, no accessory muscle use, on room air Abd: soft, ND, minimally tender throughout abdomen, some increase in RLQ, no guarding or signs of peritonitis Ext: warm, no edema Labs: WBC/Hgb/Hct/Plts: 7.94/10.9/33.5/208 (06/04 302) Na/K+/Phos/Mg/Ca: 132/3.3/--/1.8/-- (06/04 302) Bun/Creat/Cl/CO2/Glucose: 4/0.62/101/21/90 (06/04 302) Ptt/Pt/Inr: 37.3/17.5/1.4 (06/04 302) A/P: 78F w/ recent colonoscopy and CT concerning for micro-perforation. No signs of peritonitis at this time. Recommend continued medical management. - continue ABx - no acute surgical intervention at this time - continue reg diet - if pt worsens clinically would recommend a CT AP as she is at risk of developing an abscess - as pt tolerating diet with controlled nausea and no signs of peritonitis no further need for surgical involvement - Please notify the General Surgery (Emergent) consult resident should the patient's clinical condition worsen?? Lupillo Chairez MD - 06/04/2018 7:45 AM ESTFormatting of this note may be different from the original. Internal Medicine Daily Progress Note Patient: Pamela Espinoza, 1940, [id number] Physician: Lupillo Chairez MD, GM5 Service Subjective/Interval History: Vitals and nursing notes reviewed for the past 24 hours. She had a temperature of 100.1 last night that resolved without tylenol. She is tolerating a pureed diet so advancing to Regular. She states that the compazine has helped significantly. Her family is concerned because she is tachycardic this AM and states that at home she takes metoprolol for tachycardia. No CP, Abdominal pain (slight tenderness), diarrhea. Minimal BM's. Medications: Continuous: Scheduled: bimatoprost 1 drop QHS brimonidine 1 drop BID budesonide 3 mg QAM ciprofloxacin 500 mg Q10/10 heparin 5,000 Units Q8H hydroxychloroquine 200 mg Daily levothyroxine 75 mcg Before BKF metronidazole 500 mg Q8H potassium chloride 10 mEq Q2H timolol maleate 1 drop Daily PRN:acetaminophen, benzocaine-menthol, calcium carbonate antacid, dextrose, melatonin, ondansetron 4mg/2ml OR ondansetron, oxyCODONE, prochlorperazine OR prochlorperazine, sodium chloride 0.9% Objective: Vitals: 06/04/18 0743 BP: 145/65 Pulse: 112 Resp: 16 Temp: 99.4 ??F (37.4 ??C) O2 Device: room air (06/04/18 0440) Flow (L/min): 0 (05/29/182115) Gen: NAD, A&Ox4, good eye contact, well appearing, responds appropriately HEENT: atraumatic, normocephalic, face symmetric, sclerae anicteric, mucous membranes moist, Resp: no visible chest wall deformities, non-labored breathing, CTAB, no wheezes/crackles/rales CV: regular rate, systolic murmur, normal S1/S2, GI: soft, mild diffuse tenderness to palpation, non-distended, NABS, no rebound or guarding Ext: warm and well perfused, pulses intact, no LE edema, no clubbing or cyanosis Skin: intact, no rashes/bruises/ulcers Neuro: A&Ox4, speech fluent, CN II-XII grossly intact, no focal deficits on exam Psych: Appropriate mood and affect for clinical situation Body mass index is 20.34 kg/m??. Data Review: WBC/Hgb/Hct/Plts: 7.94/10.9/33.5/208 (06/04 302) Na/K+/Phos/Mg/Ca: 132/3.3/--/1.8/-- (06/04 302) Bun/Creat/Cl/CO2/Glucose: 4/0.62/101/21/90 (06/04 302) Ptt/Pt/Inr: 37.3/17.5/1.4 (06/04 302) Lab Results Component Value Date ALT 23 05/26/2018 AST 31 05/26/2018 ALKPHOS 47 05/26/2018 BILITOTAL 1.1 05/26/2018 BILIDIRECT 0.1 05/26/2018 EKG: NSR with rate of 86 Assessment/Plan: Pamela Espinoza is a 78 y.o. female with a history of prior GI bleed w/ R sided AVMs, diverticulitis,HTN, HLD, hypothyroidism, autoimmune hepatitis, and lupus who presents with as a transfer from [facility] for evaluation of rectal bleeding. Colonic microperforation: Overnight 05/28-05/29, after colonoscopy on 05/28, the patient was septic with high fever.CT A/P showed microperforation. Surgery was consulted and recommended no surgical intervention needed but that they would continue to follow along. Plan - Adv to CLD on 05/31 - Transitioning from Cefepime/Flagyl (05/28->06/11) to PO Cipro/Flagyl Today with end date 06/12. - If fevers/clinically worsens plan to obtain CTAP for further evaluation, holding tylenol to evaluate for fever Nausea / Vomiting - likely 2/2 to perforation -Improved with changing anti-emetic regimen. compazine with Zofran PRN, QRS is 472 on 06/04 Cough: Pt is endorsing a new cough on 05/31. She does endorse post-nasal drainage. CXR shows progression of L pleural effusion, likely 2/2 to volume overload Plan - d/c'd IVF; will consider diuresis if does not improve -Cepacol cough drops Acute Blood loss anemia 2/2 GI Bleed: R sided AVMs, Stage III hemorrhoids, diverticuli noted in colonoscopy from outside hospital. Hgb dropping from 13.5 down to 9.0 over 3 days. Pt reports BRBPR with clots before admission. Pt remains HD stable. Colonoscopy at [facility] showed hemorrhoids but no AVM -Transfuse if Hb <7, type and cross -GI consulted, appreciate recs HTN: Home medication includes metoprolol; holding for now ?? Systolic Murmur: Pt did not report knowing of this in the past. Her last Echo was in 2011. She also reports that she was possibly told once (in [place]) that she has AFib We will repeat echo and get anEKG (did not show any Afib). -TTE 05/30 - LVEF preserved 60%, No , moderate AV regurgitation, mld-moderate MVR -EKG w/ NSR at a rate of 86 ?? Autoimmune Hepatitis: -Continue budesonide ?? Systemic Lupus Erythematosus: -Continue plaquenil ?? Glaucoma -Continue timolol, xalatan, and alphagan ?? Hypothyroidism -Continue synthroid FEN/GI: DIET REGULAR Ppx: SCDs Dispo: Admission on GM5 Code Status: Full Code Signed, Lupillo Chairez MD PGY-1, Resident, Department of Internal Medicine [facility] [phone] Associated attestation - Perico Aviles MD - 06/04/2018 6:48 PM EST Attending attestation: I saw and evaluated the patient independently. I discussed the plan of care with the residents. I have reviewed the resident note and agree with the findings and plan of care as documented. In short, Ms Espinoza continues to have some nausea, though unclear how much as her antiemetic is scheduled. Continues to have intermittent low grade temps. Abd soft Microperforation - Cont antibiotics with cipro / flagyl - Advance diet - CTAP if decompensation. Date of service: 06/04/2018 Steve Sarah Sheryl, RN - 06/03/2018 11:27 AM [id number] Progress Note Anticipated Discharge Plan as of 06/03/2018 11:27 AM Expected Discharge Date: 06/04/2018 Anticipated discharge disposition: Home Barriers to Discharge Barriers to Discharge: Complex Disposition Barriers to Discharge Comment : Medical stability; cont to monitor for microperf sp EGD; cont IV atbs; advancing diet slowly; nausea improved with zofran; temp 100 today; serial labs; IV fluids; cont current medical mgmt Medical Milestone Medical Milestone : cont current medical mgmt;advancing diet today Bindu Quevedo RN/[facility] Medicine [phone], Daniel P, MD - 06/03/2018 8:16 AM ESTFormatting of this note may be different from the original. Internal Medicine Daily Progress Note Patient: Pamela Espinoza, 1940, [id number] Physician: Lupillo Chairez MD, GM5 Service Subjective/Interval History: Vitals and nursing notes reviewed for the past 24 hours. No acute events overnight. Tolerating clears since yesterday evening. Still nauseous this AM, better with compazine. Desires a soft diet. No CP, Abdominal pain, diarrhea/constipation. Medications: Continuous: Scheduled: bimatoprost 1 drop QHS brimonidine 1 drop BID budesonide 3 mg QAM ceFEPIme (MAXIPIME) IVPB 2 g Q12H clindamycin (CLEOCIN) IVPB 900 mg Q8H hydroxychloroquine 200 mg Daily levothyroxine 75 mcg Before BKF ondansetron 4mg/2ml 4 mg Q6H Or ondansetron 4 mg Q6H timolol maleate 1 drop Daily PRN:acetaminophen, benzocaine-menthol, calcium carbonate antacid, dextrose, melatonin, oxyCODONE, prochlorperazine OR prochlorperazine, sodium chloride 0.9% Objective: Vitals: 06/03/18 0750 BP: 143/63 Pulse: 87 Resp: 18 Temp: 100 ??F (37.8 ??C) O2 Device: room air (06/03/18 0750) Flow (L/min): 0 (05/29/182115) Gen: NAD, A&Ox4, good eye contact, well appearing, responds appropriately HEENT: atraumatic, normocephalic, face symmetric, sclerae anicteric, mucous membranes moist, Resp: no visible chest wall deformities, non-labored breathing, CTAB, no wheezes/crackles/rales CV: regular rate, systolic murmur, normal S1/S2, GI: soft, diffuse tenderness to palpation of abdomen (RLQ worst), non-distended, NABS, no rebound orguarding Ext: warm and well perfused, pulses intact, no LE edema, no clubbing or cyanosis Skin: intact, no rashes/bruises/ulcers Neuro: A&Ox4, speech fluent, CN II-XII grossly intact, no focal deficits on exam Psych: Appropriate mood and affect for clinical situation Body mass index is 21.11 kg/m??. Data Review: WBC/Hgb/Hct/Plts: 5.64/10.2/31.2/198 (06/03 237) Na/K+/Phos/Mg/Ca: 132/3.4/--/1.7/-- (06/03 237) Bun/Creat/Cl/CO2/Glucose: 3/0.69/103/18/91 (06/03 237) Lab Results Component Value Date ALT 23 05/26/2018 AST 31 05/26/2018 ALKPHOS 47 05/26/2018 BILITOTAL 1.1 05/26/2018 BILIDIRECT 0.1 05/26/2018 EKG: NSR with rate of 86 Assessment/Plan: Pamela Espinoza is a 78 y.o. female with a history of prior GI bleed w/ R sided AVMs, diverticulitis,HTN, HLD, hypothyroidism, autoimmune hepatitis, and lupus who presents with as a transfer from [facility] for evaluation of rectal bleeding. Colonic microperforation: Overnight 05/28-05/29, after colonoscopy on 05/28, the patient was septic with high fever.CT A/P showed microperforation. Surgery was consulted and recommended no surgical intervention needed but that they would continue to follow along. Plan - Adv to CLD on 05/31 - cont Cefepime/Flagyl (05/28->06/11) consider transition to PO Cipro/Flagyl when able for outpatient regimin Nausea / Vomiting - likely 2/2 to perforation and +/- metronidazole -Improved with changing anti-emetic regimen. Scheduled compazine with Zofran PRN Cough: Pt is endorsing a new cough on 05/31. She does endorse post-nasal drainage. CXR shows progression of L pleural effusion, likely 2/2 to volume overload Plan - d/c'd IVF; will consider diuresis if does not improve -Cepacol cough drops Acute Blood loss anemia 2/2 GI Bleed: R sided AVMs, Stage III hemorrhoids, diverticuli noted in colonoscopy from outside hospital. Hgb dropping from 13.5 down to 9.0 over 3 days. Pt reports BRBPR with clots before admission. Pt remains HD stable. Colonoscopy at [facility] showed hemorrhoids but no AVM -Transfuse if Hb <7, type and cross -GI consulted, appreciate recs HTN: Home medication includes metoprolol; holding for now ?? Systolic Murmur: Pt did not report knowing of this in the past. Her last Echo was in 2011. She also reports that she was possibly told once (in [place]) that she has AFib We will repeat echo and get anEKG (did not show any Afib). -TTE 05/30 - LVEF preserved 60%, No , moderate AV regurgitation, mld-moderate MVR -EKG w/ NSR at a rate of 86 ?? Autoimmune Hepatitis: -Continue budesonide ?? Systemic Lupus Erythematosus: -Continue plaquenil ?? Glaucoma -Continue timolol, xalatan, and alphagan ?? Hypothyroidism -Continue synthroid FEN/GI: DIET CLEAR LIQUID Ppx: SCDs Dispo: Admission on GM5 Code Status: Full Code Plan discussed with team and Dr. Calhoun on rounds. Signed, Lupillo Chairez MD PGY-1, Resident, Department of Internal Medicine [facility] [phone] Associated attestation - Perico Aviles MD - 06/03/2018 7:37 PM EST Attending attestation: I saw and evaluated the patient independently. I discussed the plan of care with the residents. I have reviewed the resident note and agree with the findings and plan of care as documented. In short, Ms Espinoza endorses some nausea today, though it had improvement by afternoon. She also notes significant early satiety. Microperforation - cont antibiotics - advance diet as tolerated. - With any worsening or fever would consider CTAP to eval for abscess Date of service: 06/03/2018 Perico Aviles, [facility], Sidney Cr MD - 06/03/2018 8:04 AM ESTAcute Care Surgery Progress Note S: No acute events. Reports short episode of R side abdominal pain but has since resolved. Continuednausea improved w/ zofran. Did report a single episode of minimal yellowish/gastric like vomiting immediately following drinking sprite overnight. Otherwise was tolerating her CLD, but denies good appetite. Denies fever, chills, SOB, CP. O: Temp: [98.3 ??F (36.8 ??C)-100 ??F (37.8 ??C)] 100 ??F (37.8 ??C) Pulse (Heart Rate): [79-87] 87 Resp Rate: [18-24] 18 BP: (127-150)/(58-67) 143/63 O2 Sat (%): [92 %-98 %] 96 % I/O last 3 completed shifts: In: 1563.1 [P.O.:918; IV Piggyback:645.1] Out: 2850 [Urine:2850] PE: Gen: NAD, resting comfortably Lungs: normal work of breathing, no accessory muscle use, on room air Abd: soft, ND, minimally tender throughout abdomen, some increase in RLQ, no guarding or signs of peritonitis Ext: warm, no edema Labs: WBC/Hgb/Hct/Plts: 5.64/10.2/31.2/198 (06/03 237) Na/K+/Phos/Mg/Ca: 132/3.4/--/1.7/-- (06/03 237) Bun/Creat/Cl/CO2/Glucose: 3/0.69/103/18/ (06/03 237) A/P: 78F w/ recent colonoscopy and CT concerning for micro-perforation. No signs of peritonitis at this time. Recommend continued medical management. - continue ABx - no acute surgical intervention at this time - Advance to regular diet - if pt worsens clinically would recommend a CT AP as she is at risk of developing an abscess - will continue to follow - Please notify the General Surgery (Emergent) consult resident should the patient's clinical condition worsen?? ACUTE CARE SURGERY ATTENDING ATTESTATION I, Liza Sloan MD saw and independently examined Ms. Espinoza with the acute care surgery consult resident today. I reviewed 24 hour events, new laboratory findings, and new imaging studies and discussed the case with the resident. I agree with the documentation and plan as above. The patient was eating solid food, albeit with a low appetite and need for recent compazine. But she had no complaints of pain. WBC is normal. The perforation has likely sealed but will follow until fully tolerating PO without symptoms. Iván Ochoa MD - 06/02/2018 11:25 AM ESTFormatting of this note may be different from the original. Internal Medicine Daily Progress Note Patient: Pamela Espinoza, 1940, [id number] Physician: Iván Ochoa MD, GM5 Service Subjective/Interval History: Vitals and nursing notes reviewed for the past 24 hours. No acute events overnight. Tolerating clears since yesterday evening. INR slightly up to 1.4, likely nutritional. Had a cough that was new for the past couple days. CXR showed a little bit of fluid, but the IVF have now been stopped. She says that her abd pain has improved and she has not had any emesis since the compazine was changed. The N/Vmay be related to the Flagyl as she has had N/V from this in the past. No other concerns. - up titrated compazine yesterday, doing better today. Will change Flagyl to clinda w/ continued Nausea Medications: Continuous: Scheduled: bimatoprost 1 drop QHS brimonidine 1 drop BID budesonide 3 mg QAM ceFEPIme (MAXIPIME) IVPB 2 g Q12H clindamycin (CLEOCIN) IVPB 900 mg Q8H hydroxychloroquine 200 mg Daily levothyroxine 75 mcg Before BKF ondansetron 4mg/2ml 4 mg Q6H Or ondansetron 4 mg Q6H potassium chloride 10 mEq Q1H timolol maleate 1 drop Daily vitamin K 2.5 mg Once PRN:acetaminophen, benzocaine-menthol, calcium carbonate antacid, dextrose, melatonin, oxyCODONE, prochlorperazine OR prochlorperazine, sodium chloride 0.9% Objective: Vitals: 06/02/18 0741 BP: 143/64 Pulse: 77 Resp: Temp: 98.4 ??F (36.9 ??C) O2 Device: room air (06/02/18 0740) Flow (L/min): 0 (05/29/182115) Gen: NAD, A&Ox4, good eye contact, well appearing, responds appropriately HEENT: atraumatic, normocephalic, face symmetric, sclerae anicteric, mucous membranes moist, Resp: no visible chest wall deformities, non-labored breathing, CTAB, no wheezes/crackles/rales CV: regular rate, systolic murmur, normal S1/S2, GI: soft, diffuse tenderness to palpation of abdomen (RLQ worst), non-distended, NABS, no rebound orguarding Ext: warm and well perfused, pulses intact, no LE edema, no clubbing or cyanosis Skin: intact, no rashes/bruises/ulcers Neuro: A&Ox4, speech fluent, CN II-XII grossly intact, no focal deficits on exam Psych: Appropriate mood and affect for clinical situation Body mass index is 21.11 kg/m??. Data Review: WBC/Hgb/Hct/Plts: 5.38/9.6/29.1/190 (06/02 332) Na/K+/Phos/Mg/Ca: 135/3.1/--/1.9/-- (06/02 332) Bun/Creat/Cl/CO2/Glucose: 2/0.68/105/21/108 (06/02 332) Ptt/Pt/Inr: 31.2/16.9/1.4 (06/02 332) Lab Results Component Value Date ALT 23 05/26/2018 AST 31 05/26/2018 ALKPHOS 47 05/26/2018 BILITOTAL 1.1 05/26/2018 BILIDIRECT 0.1 05/26/2018 EKG: NSR with rate of 86 Assessment/Plan: Pamela Espinoza is a 78 y.o. female with a history of prior GI bleed w/ R sided AVMs, diverticulitis,HTN, HLD, hypothyroidism, autoimmune hepatitis, and lupus who presents with as a transfer from [facility] for evaluation of rectal bleeding. Colonic microperforation: Overnight 05/28-05/29, after colonoscopy on 05/28, the patient was septic with high fever.CT A/P showed microperforation. Surgery was consulted and recommended no surgical intervention needed but that they would continue to follow along. Plan - Adv to CLD on 05/31 - cont Clinda/Flagyl Nausea / Vomiting - likely 2/2 to perforation and +/- metronidazole -Improved with changing anti-emetic regimen. Will continue current regimen and change flagyl to clinda Cough: Pt is endorsing a new cough on 05/31. She does endorse post-nasal drainage. CXR shows progression of L pleural effusion, likely 2/2 to volume overload Plan - d/c'd IVF; will consider diuresis if does not improve tomorrow/Sunday -Cepacol cough drops Acute Blood loss anemia 2/2 GI Bleed: R sided AVMs, Stage III hemorrhoids, diverticuli noted in colonoscopy from outside hospital. Hgb dropping from 13.5 down to 9.0 over 3 days. Pt reports BRBPR with clots before admission. Pt remains HD stable. Colonoscopy at [facility] showed hemorrhoids but no AVM -H&H q6hr -Transfuse if Hb <7, type and cross -GI consulted, appreciate recs -Colonoscopy with GI completed HTN: Home medication includes metoprolol; holding for now ?? Systolic Murmur: Pt did not report knowing of this in the past. Her last Echo was in 2011. She also reports that she was possibly told once (in [place]) that she has AFib We will repeat echo and get anEKG (did not show any Afib). -TTE 05/30 - LVEF preserved 60%, No , moderate AV regurgitation, mld-moderate MVR -EKG w/ NSR at a rate of 86 ?? Autoimmune Hepatitis: -Continue budesonide ?? Systemic Lupus Erythematosus: -Continue plaquenil ?? Glaucoma -Continue timolol, xalatan, and alphagan ?? Hypothyroidism -Continue synthroid FEN/GI: DIET CLEAR LIQUID Ppx: SCDs Dispo: Admission on GM5 Code Status: Full Code Plan discussed with team and Dr. Calhoun on rounds. Signed, Iván Ochoa MD PGY-5 Internal Medicine Associated attestation - Rome Calhoun MD - 06/02/2018 1:17 PM ESTAttending Attestation : I have seen and examined Pamela Espinoza on 06/02/2018 independently of the hospital medicine staff team and discussed with them all pertinent findings. I have personally reviewed all available clinicaldata related to today's encounter. I have been fully involved in formulation of the above-documented assessment and plan and it has been thoroughly discussed with the residents/interns. Pamela Espinoza states that she feels better today, still having some nausea, but this is well controlled today. ?? Microperforation in the setting of recent C-scope/polypectom - GI & gen surg on c/s, seems edvin improving, cont CLD today per surgery, cont IV atbx for now. ?? Bleeding Internal Hemorrhoids - h/h stable, bleeding clinically resolved, GI/gen surg on c/s, cont to monitor Signed, Rome Calhoun MD Clearing Inspector of Clinical medicine Department of Internal Medicine [facility], Sidney Cr MD - 06/02/2018 8:01 AM ESTAcute Care Surgery Progress Note S: No acute events. Reports continued improvement of abdominal pain. Controlled nausea w/ zofran, improved tolerance of CLD. Pt reports continued bowel function w/ flatus and BM. Denies SOB, CP. Currently on cefepime and flagyl. O: Temp: [98.4 ??F (36.9 ??C)-99.7 ??F (37.6 ??C)] 98.4 ??F (36.9 ??C) Pulse (Heart Rate): [77-82] 77 Resp Rate: [16-20] 18 BP: (127-145)/(60-66) 143/64 O2 Sat (%): [92 %-96 %] 96 % I/O last 3 completed shifts: In: 1358.8 [P.O.:460; IV Piggyback:898.8] Out: 3950 [Urine:3950] PE: Gen: NAD, resting comfortably Lungs: normal work of breathing, no accessory muscle use Abd: soft, ND, minimally tender throughout abdomen, no guarding or signs of peritonitis Ext: warm, no edema Labs: WBC/Hgb/Hct/Plts: 5.38/9.6/29.1/190 (06/02 332) Na/K+/Phos/Mg/Ca: 135/3.1/--/1.9/-- (06/02 332) Bun/Creat/Cl/CO2/Glucose: 2/0.68/105/21/108 (06/02 332) Ptt/Pt/Inr: 31.2/16.9/1.4 (06/02 332) A/P: 78F w/ recent colonoscopy and CT concerning for micro-perforation. No signs of peritonitis at this time. Recommend continued medical management. - continue ABx - no acute surgical intervention at this time - would maintain CLD today - will continue to follow - Please notify the General Surgery (Emergent) consult resident should the patient's clinical condition worsen?? Raven CHU, Sidney Cr MD - 06/01/2018 9:25 AM ESTAcute Care Surgery Progress Note ?? S: No acute events. Pt reports improved abdominal pain. Pt was attempted on CLD yesterday but had some continued associated nausea with 2 episodes of non- bilious, non- bloody vomiting. Pt reports continued bowel function w/ flatus and BM. Denies SOB, CP. Currently on cefepime and flagyl. O: Temp: [98.1 ??F (36.7 ??C)-100.6 ??F (38.1 ??C)] 99.9 ??F (37.7 ??C) Pulse (Heart Rate): [76-93] 90 Resp Rate: [14-18] 18 BP: (132-156)/(63-66) 146/66 O2 Sat (%): [91 %-96 %] 92 % Weight: [45.8 kg (101 lb)] 45.8 kg (101 lb) I/O last 3 completed shifts: In: 1422.6 [P.O.:170; I.V.:464.6; IV Piggyback:787.9] Out: 3650 [Urine:3650] PE: Gen: NAD, resting comfortably Lungs: normal work of breathing, no accessory muscle use Abd: soft, ND, tender to palpation only in RLQ most Ext: warm, no edema Labs: WBC/Hgb/Hct/Plts: 5.61/9.8/29.7/163 (06/01 326) Na/K+/Phos/Mg/Ca: 134/2.7/--/1.9/-- (06/01 326) Bun/Creat/Cl/CO2/Glucose: 2/0.64/104/20/99 (06/01 326) Ptt/Pt/Inr: 32.7/16.3/1.3 (06/01 326) A/P: 78F w/ recent colonoscopy and CT concerning for micro-perforation. No signs of peritonitis at this time. Recommend continued medical management. - continue ABx - no acute surgical intervention at this time - will continue to follow - Please notify the General Surgery (Emergent) consult resident should the patient's clinical condition worsen?? Tereso Up MD - 06/01/2018 6:26 AM ESTFormatting of this note may be different from the original. Internal Medicine Daily Progress Note Patient: Pamela Espinoza, 1940, [id number] Physician: Tereso Up MD, GM5 Service Subjective/Interval History: Vitals and nursing notes reviewed for the past 24 hours. No acute events overnight. Tmax overnight was 100.4. Abdominal pain stable. Had an episode of emesis overnight. Has had multiple liquid BM's since yesterday. Tolerating clears since yesterday evening. INR slightly up to 1.3, likely nutritional.Had a cough that was new for the past couple days - Had mild progression on CXR of L pleural effusion and L basilar atelectasis. - Low K 2.7, repletion with IV - up titrated compazine today, will reassess; considered changing flagyl to clinda, but held off forrisk of c. diff Medications: Continuous: Scheduled: bimatoprost 1 drop QHS brimonidine 1 drop BID budesonide 3 mg QAM ceFEPIme (MAXIPIME) IVPB 2 g Q12H hydroxychloroquine 200 mg Daily levothyroxine 75 mcg Before BKF metronidazole 500 mg Q8H ondansetron 4mg/2ml 4 mg Q6H Or ondansetron 4 mg Q6H potassium chloride 40 mEq Once potassium chloride 10 mEq Q2H potassium chloride 10 mEq Q2H timolol maleate 1 drop Daily PRN:acetaminophen, benzocaine-menthol, calcium carbonate antacid, dextrose, melatonin, oxyCODONE, prochlorperazine OR prochlorperazine, sodium chloride 0.9% Objective: Vitals: 06/01/18 0434 BP: 145/66 Pulse: 89 Resp: 16 Temp: 100.3 ??F (37.9 ??C) O2 Device: room air (05/31/182099) Flow (L/min): 0 (05/29/182115) Gen: NAD, A&Ox4, good eye contact, well appearing, responds appropriately HEENT: atraumatic, normocephalic, face symmetric, sclerae anicteric, mucous membranes moist, Resp: no visible chest wall deformities, non-labored breathing, CTAB, no wheezes/crackles/rales CV: regular rate, systolic murmur, normal S1/S2, GI: soft, diffuse tenderness to palpation of abdomen (RLQ worst), non-distended, NABS, no rebound orguarding Ext: warm and well perfused, pulses intact, no LE edema, no clubbing or cyanosis Skin: intact, no rashes/bruises/ulcers Neuro: A&Ox4, speech fluent, CN II-XII grossly intact, no focal deficits on exam Psych: Appropriate mood and affect for clinical situation Body mass index is 23.04 kg/m??. Data Review: WBC/Hgb/Hct/Plts: 5.61/9.8/29.7/163 (06/016) Na/K+/Phos/Mg/Ca: 134/2.7/--/1.9/-- (06/01 326) Bun/Creat/Cl/CO2/Glucose: 2/0.64/104/20/99 (06/01 326) Ptt/Pt/Inr: 32.7/16.3/1.3 (06/01 326) Lab Results Component Value Date ALT 23 05/26/2018 AST 31 05/26/2018 ALKPHOS 47 05/26/2018 BILITOTAL 1.1 05/26/2018 BILIDIRECT 0.1 05/26/2018 EKG: NSR with rate of 86 Assessment/Plan: Pamela Espinoza is a 78 y.o. female with a history of prior GI bleed w/ R sided AVMs, diverticulitis,HTN, HLD, hypothyroidism, autoimmune hepatitis, and lupus who presents with as a transfer from [facility] for evaluation of rectal bleeding. # Colonic microperforation: Overnight 05/28-05/29, after colonoscopy on 05/28, the patient was septic with high fever.CT A/P showed microperforation. Surgery was consulted and recommended no surgical intervention needed but that they would continue to follow along. Plan - Adv to [facility]D on 05/31 - cont cefepime and flagyl # Nausea / Vomiting - likely 2/2 to perforation and +/- metronidazole - will try to change anti-emetic regimen Cough: Pt is endorsing a new cough on 05/31. She does endorse post-nasal drainage. CXR shows progression of L pleural effusion, likely 2/2 to volume overload Plan - d/c'd IVF; will consider diuresis if does not improve tomorrow/Sunday -Cepacol cough drops Acute Blood loss anemia 2/2 GI Bleed: R sided AVMs, Stage III hemorrhoids, diverticuli noted in colonoscopy from outside hospital. Hgb dropping from 13.5 down to 9.0 over 3 days. Pt reports BRBPR with clots before admission. Pt remains HD stable. Colonoscopy at [facility] showed hemorrhoids but no AVM -H&H q6hr -Transfuse if Hb <7, type and cross -GI consulted, appreciate recs -Colonoscopy with GI completed HTN: Home medication includes metoprolol; holding for now ?? Systolic Murmur: Pt did not report knowing of this in the past. Her last Echo was in 2011. She also reports that she was possibly told once (in [place]) that she has AFib We will repeat echo and get anEKG (did not show any Afib). -TTE 05/30 - LVEF preserved 60%, No , moderate AV regurgitation, mld-moderate MVR -EKG w/ NSR at a rate of 86 ?? Autoimmune Hepatitis: -Continue budesonide ?? Systemic Lupus Erythematosus: -Continue plaquenil ?? Glaucoma -Continue timolol, xalatan, and alphagan ?? Hypothyroidism -Continue synthroid FEN/GI: DIET CLEAR LIQUID Ppx: SCDs Dispo: Admission on GM5 Code Status: Full Code Plan discussed with team and Dr. Calhoun on rounds. Signed, Tereso Up MD PGY-5 Internal Medicine Associated attestation - Rome Calhoun MD - 06/01/2018 11:16 AM ESTAttending Attestation : I have seen and examined Pamela Espinoza on 06/01/2018 independently of the hospital medicine staff team and discussed with them all pertinent findings. I have personally reviewed all available clinicaldata related to today's encounter. I have been fully involved in formulation of the above-documented assessment and plan and it has been thoroughly discussed with the residents/interns. Pamela Espinoza complains of ongoing nausea today, but states she has had no recurrent melena. ?? Microperforation- GI & gen surg on c/s, cont IV atbx and advance diet as tolerated ?? Nausea - Multiple possible etiologies, will uptitrate antiemetics today and see how she does; if not improving could consider changing atbx; possibly changing metro to clindamycin ?? Bleeding Hemorrhoids - hgb has stabilized, given other issues felt not urgent & will address further on outpt basis Signed, Rome Calhoun MD Clearing Inspector of Clinical medicine [facility] of [facility] MD - 05/31/2018 3:39 PM ESTAcute Care Surgery Progress Note S: No acute events. Pt reports continued abdominal pain and associated nausea with 3-4 episodes of non-bilious, non- bloody vomiting. Pt reports bowel function w/ flatus and BM. BM she describes as slightly bloody. Denies fever, chills, SOB, CP. Currently on cefepime and flagyl. O: Temp: [98.1 ??F (36.7 ??C)-99.6 ??F (37.6 ??C)] 99.6 ??F (37.6 ??C) Pulse (Heart Rate): [75-84] 81 Resp Rate: [14-18] 15 BP: (121-158)/(58-66) 138/64 O2 Sat (%): [92 %-96 %] 94 % I/O last 3 completed shifts: In: 2261.1 [I.V.:1946.1; IV Piggyback:315] Out: 3145 [Urine:3125; Emesis:20] PE: Gen: NAD, resting comfortably Lungs: normal work of breathing, no accessory muscle use Abd: soft, ND, tender to palpation in RLQ most Ext: warm, no edema Labs: WBC/Hgb/Hct/Plts: 5.83/9.4/28.8/145 (05/31 302-05/31 1254) Na/K+/Phos/Mg/Ca: 138/3.3/--/1.5/-- (05/31 302) Bun/Creat/Cl/CO2/Glucose: 5/0.57/110/16/155 (05/31 302-05/31 705) Ptt/Pt/Inr: 33.5/16.1/1.3 (05/31 302) A/P: 78F w/ recent colonoscopy and CT concerning for micro-perforation. Pt with no signs of peritonitis at this time. Would recommend continued medical management. - continue ABx - ok to advance to CLD - no acute surgical intervention at this time - will continue to follow - Please notify the General Surgery (Emergent) consult resident should the patient's clinical condition worsen?? Iván Ochoa MD - 05/31/2018 11:34 AM ESTFormatting of this note may be different from the original. Internal Medicine Daily Progress Note Patient: Pamela Espinoza, 1940, [id number] Physician: Iván Ochoa MD, GM5 Service Subjective/Interval History: No acute events overnight. This morning the patient was hypoglycemic from being NPO and was given dextrose and her fluids were changed to D5NS. She also has been having increased N/V and required IV Zofran. She says that her abdominal pain is continuing to improve but she does have the nausea/emesis. She is also endorsing a new cough. She denies any other concerns including CP, SOB, blood in bowel movements. Medications: Continuous: maintenance IV Custom Scheduled: bimatoprost 1 drop QHS brimonidine 1 drop BID budesonide 3 mg QAM ceFEPIme (MAXIPIME) IVPB 2 g Q12H hydroxychloroquine 200 mg Daily levothyroxine 75 mcg Before BKF Magnesium Sulfate IVPB 4 g Once metronidazole 500 mg Q8H ondansetron 4mg/2ml 4 mg Q6H Or ondansetron 4 mg Q6H potassium chloride 10 mEq Q2H timolol maleate 1 drop Daily PRN:acetaminophen, benzocaine-menthol, calcium carbonate antacid, dextrose, melatonin, oxyCODONE, prochlorperazine, sodium chloride 0.9% Objective: Vitals: 05/31/18 0752 BP: 158/66 Pulse: 75 Resp: 18 Temp: 98.7 ??F (37.1 ??C) O2 Device: room air (05/31/18 0753) Flow (L/min): 0 (05/29/182115) Gen: NAD, A&Ox4, good eye contact, well appearing, responds appropriately HEENT: atraumatic, normocephalic, face symmetric, sclerae anicteric, mucous membranes moist, Resp: no visible chest wall deformities, non-labored breathing, CTAB, no wheezes/crackles/rales CV: regular rate, systolic murmur, normal S1/S2, GI: soft, diffuse tenderness to palpation of abdomen (RLQ worst), non-distended, NABS, no rebound orguarding Ext: warm and well perfused, pulses intact, no LE edema, no clubbing or cyanosis Skin: intact, no rashes/bruises/ulcers Neuro: A&Ox4, speech fluent, CN II-XII grossly intact, no focal deficits on exam Psych: Appropriate mood and affect for clinical situation Body mass index is 23.04 kg/m??. Data Review: WBC/Hgb/Hct/Plts: 5.83/8.6/27.2/145 (05/31 302) Na/K+/Phos/Mg/Ca: 138/3.3/--/1.5/-- (05/31 302) Bun/Creat/Cl/CO2/Glucose: 5/0.57/110/16/155 (05/31 302-05/31 705) Ptt/Pt/Inr: 33.5/16.1/1.3 (05/31 302) Lab Results Component Value Date ALT 23 05/26/2018 AST 31 05/26/2018 ALKPHOS 47 05/26/2018 BILITOTAL 1.1 05/26/2018 BILIDIRECT 0.1 05/26/2018 EKG: NSR with rate of 86 Assessment/Plan: Pamela Espinoza is a 78 y.o. female with a history of prior GI bleed w/ R sided AVMs, diverticulitis,HTN, HLD, hypothyroidism, autoimmune hepatitis, and lupus who presents with as a transfer from [facility] for evaluation of rectal bleeding. Sepsis with Colonic microperforation: Overnight 05/28-05/29 the patient became febrile, tachycardic,and tachypneic.CT A/P showed microperforation. Surgery was consulted and recommended no surgical intervention needed but that they would continue to follow along. She is on Cefepime/Flagyl. She is having N/V this AM. The concern is worsening abd perf or ileus vs 2/2 hypoglycemia. Her abd exam is non acute. We will touch base with surgery about this as well as get a repeat abd x-ray. -Continue Cefepime/Flagyl -CT A/P with microperforation -BCx x2 -UA w/ reflex to Cx -NPO -surgery consulted, appreciate recs Acute Blood loss anemia 2/2 GI Bleed: R sided AVMs, Stage III hemorrhoids, diverticuli noted in colonoscopy from outside hospital. Hgb dropping from 13.5 down to 9.0 over 3 days. Pt reports BRBPR with clots before admission. Pt remains HD stable. Colonoscopy at [facility] showed hemorrhoids but no AVM -H&H q6hr -Transfuse if Hb <7, type and cross -GI consulted, appreciate recs -Colonoscopy with GI completed HTN: Home medication includes metoprolol -Holding metoprolol in case it is masking hypovolemic tachycardia Cough: Pt is endorsing a new cough. She does endorse post-nasal drainage. Since she has been gettinghigh volumes of IVF we will check a CXR to rule out fluid overload -CXR -Cepacol cough drops ?? Systolic Murmur: Pt did not report knowing of this in the past. Her last Echo was in 2011. She also reports that she was possibly told once (in [place]) that she has AFib We will repeat echo and get anEKG (did not show any Afib). -TTE pending -EKG w/ NSR at a rate of 86 ?? Autoimmune Hepatitis: -Continue budesonide ?? Systemic Lupus Erythematosus: -Continue plaquenil ?? Glaucoma -Continue timolol, xalatan, and alphagan ?? Hypothyroidism -Continue synthroid FEN/GI: DIET NPO with meds Ppx: SCDs Dispo: Admission on GM5 Code Status: Full Code Plan discussed with team and Dr. Calhoun on rounds. Signed, Iván Ochoa MD PGY-1 Internal Medicine Associated attestation - Rome Calhoun MD - 05/31/2018 2:43 PM ESTAttending Attestation : I have seen and examined Pamela Espinoza on 05/31/2018 independently of the hospital medicine staff team and discussed with them all pertinent findings. I have personally reviewed all available clinicaldata related to today's encounter. I have been fully involved in formulation of the above-documented assessment and plan and it has been thoroughly discussed with the residents/interns. Pamela Espinoza is feeling better today, complains of a mild cough, but not productive, passing flatus and stool, but did have some nausea. Will check CXR/AXR and escalate diet to clear liquids today after team discussion with general surgery. Cont IV atbx for now, once tolerating good diet will consider transition to oral antibiotics. Signed, Rome Calhoun MD Clearing Inspector of Clinical medicine Department of Internal Medicine Division of [facility] Medicine Marleny Quevedo RN - 05/31/2018 10:38 AM [id number] Progress Note Anticipated Discharge Plan as of 05/31/2018 10:38 AM Expected Discharge Date: 06/03/2018 Anticipated discharge disposition: Home Barriers to Discharge Barriers to Discharge: Complex Disposition Barriers to Discharge Comment : Medical stability; colonoscopy 05/29d/t recent drop in Hgb, she subsequently developed acute adbominal pain, tachycardia and fevers overnight. CT scan was obtained and is concerning for microperferoation;ACS and GI following with recs; pain control being addressed; series labs/exams to monitor possible perf; NPO/IV fluids; team addressing c/o nausea with IV antiemetics; cont current medical mgmt Medical Milestone Medical Milestone : sp colonoscopy with CT showing possible perf; ACS and GI following; cont currentmedical mgmt Bindu Quevedo RN/[facility] Medicine Bzqkjm, Ahmad N, MD - 05/30/2018 4:09 PM ESTFormatting of this note may be different from the original. GASTROENTEROLOGY, HEPATOLOGY & NUTRITION PROGRESS NOTE Subjective/Interval Events: Patient seen and evaluated at bedside. Reports mild improvement in her pain. Fever curve significantly better. She is thirsty. Daughter & son at bedside and all questions answered to satisfaction. Objective: Temp: [98.3 ??F (36.8 ??C)-99.1 ??F (37.3 ??C)] 98.6 ??F (37 ??C) Pulse (Heart Rate): [77-96] 77 Resp Rate: [16-20] 18 BP: (100-130)/(51-60) 108/52 O2 Sat (%): [92 %-97 %] 92 % Weight: [50 kg (110 lb 3.7 oz)] 50 kg (110 lb 3.7 oz) Gen: No acute distress. Comfortable. HEENT: No scleral icterus. Respiratory: CTA bilaterally Cardiovascular: RRR, no m/r/g Abdominal: Soft. + BS. Mildly distended. Mildly TTP diffusely. No ascites present Neurological: No gross deficits. Extremities: 2+ pulses, no edema Medications: ??? bimatoprost 1 drop Both Eyes QHS ??? brimonidine 1 drop Both Eyes BID ??? budesonide 3 mg Oral QAM ??? ceFEPIme (MAXIPIME) IVPB 2 g Intravenous Q12H ??? hydroxychloroquine 200 mg Oral Daily ??? [START ON 05/31/2018] levothyroxine 75 mcg Oral Before BKF ??? metronidazole 500 mg Intravenous Q8H ??? timolol maleate 1 drop Both Eyes Daily Labs: All relevant labs were reviewed. WBC/Hgb/Hct/Plts: 6.01/8.4/26.1/124 (05/30 0150-05/30 0745) Bun/Creat/Cl/CO2/Glucose: 5/0.57/105/19/83 (05/30 105) Na/K+/Phos/Mg/Ca: 133/3.3/--/1.5/-- (05/30 105) Lab Results Component Value Date ALT 23 05/26/2018 AST 31 05/26/2018 ALKPHOS 47 05/26/2018 BILITOTAL 1.1 05/26/2018 BILIDIRECT 0.1 05/26/2018 INR 1.3 (H) 05/30/2018 Imaging: CT A/P with contrast (05/29/18): 1. ??Cecal pole is slightly high riding in the right mid abdomen. Focal thinning with defect in the posterior ascending colonic wall just superior to the ileocecal valve demonstrated with some adjacent fluid and stranding/inflammation in the pericolonic fat suggesting microperforation. This may be at site of polyp removal although polyp removed from this area was only 3 mm. No gross pneumoperitoneum identified though. 2. ??No loculated rim-enhancing or air-containing collection. Normal appendix. 3. ??There is some fluid and air distention of the proximal colon. Remainder of the colon is fairly collapsed. Wall appears prominent although this may be due to degree of distention. Extensive colonic diverticulosis present with no evidence of acute diverticulitis. 4. ??Enhancing lesion in the right dome likely perfusional versus benign lesion such as focal nodular hyperplasia. 5. ??Cholecystectomy. Biliary dilatation likely secondary to same. 6. ??Hiatal hernia. Large duodenal diverticulum. ASSESSMENT AND PLAN: Pamela Espinoza is a 78 y.o. female who has a past history notable for IMPRESSION * Post-polypectomy perforation * Sepsis * BRBPR 2/2 internal hemorrhoids RECOMMENDATIONS - Agree with IV antibiotics, please continue - Agree with acute care surgery with conservative management, appreciate there assistance in management - From our perspective, would feel comfortable advancing to clear liquids but would ultimately deferthis to surgery - Closely monitor abdominal exams - Will continue to follow Discussed with Mary Gonzalez MD Gastroenterology Fellow, PGY-V Associated attestation - Asya Carrillo MD - 06/01/2018 10:35 AM CEE independently saw and evaluated Ms. Espinoza. I have reviewed the Fellow's note, revised as neededand agree with the documentation. She is a 78 yr old male with colonoscopy and polypectomy c/n microperforation. Her symptoms are improving while she is continuing to improve on conservative management. We will continue to monitor on iv antibiotics and IV fluids. She is not receiving a procedure today. Kelby Mobley MD Clearing Inspector, Division of Gastroenterology, Hepatology & Nutrition Pager:[phone] Karmen Stokes, [facility] - 05/30/2018 2:36 PM ESTFormatting of this note may be different from the original. Department of Pharmacy Admission Medication Reconciliation Note Patient: Pamela Espinoza Room/Bed: [facility]/A I have reviewed the patient's home medication list and allergies with the following sources Patient recall without prompting. I have also reviewed this list with the medical team. All changes to the home medication list have been updated in [facility]. Updated PUBLIC AFFAIRS MANAGER Med List: Prior to Admission Medications Prescriptions Bimatoprost (LUMIGAN) 0.01 % OP SOLN Sig: Place 1 drop in both eyes daily. aspirin 81 MG Chew Tab chewable tablet Sig: Chew 81 mg daily. brimonidine 0.15 % Solution ophthalmic solution Sig: Place 1 drop in both eyes 2 times daily. Use in affected eye(s). budesonide 3 MG PO cap XR Sig: Take 3 mg by mouth daily every morning. hydroxychloroquine 200 MG Tab tablet Sig: Take 200 mg by mouth daily. levothyroxine (LEVOXYL) 75 MCG PO TABS Sig: take 75 mcg by mouth daily. metoprolol 50 MG PO tab regular release Sig: Take one tab by mouth every 12 hours. timolol maleate 0.5 % Solution ophthalmic solution Sig: Place 1 drop in both eyes daily. Facility-Administered Medications: None Added to Home Medications: NA Deleted from Home Medications: NA Edits to Home Medications: Aspirin 81mg daily (not 325mg daily) Other Comments: NA Please feel free to contact me with any further questions. Name: Karmen Stokes [facility] Phone #: [phone] Date/Time: 05/30/2018 2:36 PM Time Spent: 20 minutes Bertram Coates MD, MPH - 05/30/2018 9:42 AM ESTFormatting of this note may be different from the original. ACS PROGRESS NOTE ASSESSMENT: Mrs. Pamela Espinoza is a 78 y.o. female who underwent colonoscopy yesterday for recent drop in Hgb, she subsequently developed acute adbominal pain, tachycardia and fevers overnight. CT scan was obtained and is concerning for microperferoation Exam stable overnight, afebrile, improvement in tachycardia PLAN: Continue to nonoperative management NPO, IVF Continue Antibiotics Serial abdominal exams Please notify the General Surgery (Emergent) consult resident should the patient's clinical condition worsen Thank you, Bertram Coates MD MPH General Surgery [id number] INTERIM HISTORY Overnight, she reports pain is similar. CURRENT MEDICATIONS: ??? bimatoprost 1 drop Both Eyes QHS ??? brimonidine 1 drop Both Eyes BID ??? budesonide 3 mg Oral QAM ??? ceFEPIme (MAXIPIME) IVPB 2 g Intravenous Q12H ??? hydroxychloroquine 200 mg Oral Daily ??? levothyroxine 75 mcg Oral Before BKF ??? metronidazole 500 mg Intravenous Q8H ??? potassium chloride 10 mEq Intravenous Q2H ??? timolol maleate 1 drop Both Eyes Daily ??? Vancomycin (VANCOCIN) IVPB 1,000 mg Intravenous Q24H ??? sodium chloride 0.9% 125 mL/hr at 05/30/18 0725 PHYSICAL EXAM Intake/Output Summary (Last 24 hours) at 05/30/18 0943 Last data filed at 05/30/18 0800 Gross per 24 hour Intake 3703.38 ml Output 975 ml Net 2728.38 ml Temp: [98.3 ??F (36.8 ??C)-99.1 ??F (37.3 ??C)] 98.4 ??F (36.9 ??C) Pulse (Heart Rate): [82-96] 82 Resp Rate: [16-20] 18 BP: (100-130)/(51-60) 117/56 O2 Sat (%): [92 %-97 %] 92 % Blood pressure 117/56, pulse 82, temperature 98.4 ??F (36.9 ??C), temperature source Oral, resp. rate 18, height 1.473 m (4' 10), weight 49.9 kg (109 lb 14.4 oz), SpO2 92 %.Body mass index is 22.97 kg/m??. Constitutional: Well-developed, well-nourished, in no distress. Skin/Wounds: [place], warm and dry Neurological: Awake, alert, follows commands, moves all extremities Lungs: Respiratory effort is normal, equal rise and fall of chest. The breath sounds are normal. Heart: Regular rate and rhythm, peripheral pulses 2+, well perfused Abdomen: Soft, non-distended, RLQ tenderness : Deferred Extremities: Movement of extremities to command DATA REVIEWED Bun/Creat/Cl/CO2/Glucose: 5/0.57/105/19/83 (05/30 105) Na/K+/Phos/Mg/Ca: 133/3.3/--/1.5/-- (05/30 105) WBC/Hgb/Hct/Plts: 6.01/8.4/26.1/124 (05/30 150-05/30 0745) Iván Ochoa MD - 05/30/2018 9:22 AM ESTFormatting of this note may be different from the original. Internal Medicine Daily Progress Note Patient: Pamela Espinoza, 1940, [id number] Physician: Iván Ochoa MD, GM5 Service Subjective/Interval History: CT A/P yesterday showed concern for microperforation. Acute care surgery evaluated the patient and said no urgent surgical intervention was needed and to continue with antibiotics. She also did [id number] pRBC for a hgb of 6.8. No acute events overnight. This morning the patient is endorsing continued abdominal pain with movement but it may be a small amount better. She had a BM that did not have any obvious blood in it. Her hgb remained stable. She denied any other concerns this morning including CP, SOB, N/V. Medications: Continuous: sodium chloride 0.9% Last Rate: 125 mL/hr at 05/30/18 1100 Scheduled: bimatoprost 1 drop QHS brimonidine 1 drop BID budesonide 3 mg QAM ceFEPIme (MAXIPIME) IVPB 2 g Q12H hydroxychloroquine 200 mg Daily levothyroxine 75 mcg Before BKF metronidazole 500 mg Q8H timolol maleate 1 drop Daily PRN:acetaminophen, melatonin, ondansetron 4mg/2ml OR ondansetron, oxyCODONE, prochlorperazine, sodium chloride 0.9% Objective: Vitals: 05/30/18 1144 BP: 100/52 Pulse: 81 Resp: 16 Temp: 98.7 ??F (37.1 ??C) O2 Device: room air (05/30/18 1144) Flow (L/min): 0 (05/29/182115) Gen: NAD, A&Ox4, good eye contact, well appearing, responds appropriately HEENT: atraumatic, normocephalic, face symmetric, sclerae anicteric, mucous membranes moist, Resp: no visible chest wall deformities, non-labored breathing, CTAB, no wheezes/crackles/rales CV: regular rate, systolic murmur, normal S1/S2, GI: soft, diffuse tenderness to palpation of abdomen (RLQ worst), non-distended, NABS, no rebound orguarding Ext: warm and well perfused, pulses intact, no LE edema, no clubbing or cyanosis Skin: intact, no rashes/bruises/ulcers Neuro: A&Ox4, speech fluent, CN II-XII grossly intact, no focal deficits on exam Psych: Appropriate mood and affect for clinical situation Body mass index is 22.97 kg/m??. Data Review: WBC/Hgb/Hct/Plts: 6.01/8.4/26.1/124 (05/30 150-05/30 745) Na/K+/Phos/Mg/Ca: 133/3.3/--/1.5/-- (05/30 105) Bun/Creat/Cl/CO2/Glucose: 5/0.57/105/19/83 (05/30 105) Ptt/Pt/Inr: 26.2/16.0/1.3 (05/30 105) Lab Results Component Value Date ALT 23 05/26/2018 AST 31 05/26/2018 ALKPHOS 47 05/26/2018 BILITOTAL 1.1 05/26/2018 BILIDIRECT 0.1 05/26/2018 EKG: NSR with rate of 86 Assessment/Plan: Pamela Espinoza is a 78 y.o. female with a history of prior GI bleed w/ R sided AVMs, diverticulitis,HTN, HLD, hypothyroidism, autoimmune hepatitis, and lupus who presents with as a transfer from [facility] for evaluation of rectal bleeding. Sepsis with Colonic microperforation: Overnight 05/28-05/29 the patient became febrile, tachycardic,and tachypneic.CT A/P showed microperforation. Surgery was consulted and recommended no surgical intervention needed but that they would continue to follow along. She is on Cefepime/Flagyl. -Continue Vanc/Cefepime/Flagyl -CT A/P with microperforation -BCx x2 -UA w/ reflex to Cx -NPO -surgery consulted, appreciate recs Acute Blood loss anemia 2/2 GI Bleed: R sided AVMs, Stage III hemorrhoids, diverticuli noted in colonoscopy from outside hospital. Hgb dropping from 13.5 down to 9.0 over 3 days. Pt reports BRBPR with clots before admission. Pt remains HD stable. Colonoscopy at [facility] showed hemorrhoids but no AVM -H&H q6hr -Transfuse if Hb <7, type and cross -GI consulted, appreciate recs -Colonoscopy with GI completed HTN: Home medication includes metoprolol -Holding metoprolol in case it is masking hypovolemic tachycardia ?? Systolic Murmur: Pt did not report knowing of this in the past. Her last Echo was in 2011. She also reports that she was possibly told once (in [place]) that she has AFib We will repeat echo and get anEKG (did not show any Afib). -TTE pending -EKG w/ NSR at a rate of 86 ?? Autoimmune Hepatitis: -Continue budesonide ?? Systemic Lupus Erythematosus: -Continue plaquenil ?? Glaucoma -Continue timolol, xalatan, and alphagan ?? Hypothyroidism -Continue synthroid FEN/GI: DIET NPO with meds Ppx: SCDs Dispo: Admission on GM5 Code Status: Full Code Plan discussed with team and Dr. Calhoun on rounds. Signed, Iván Ochoa MD PGY-1 Internal Medicine Associated attestation - Rome Calhoun MD - 05/30/2018 3:43 PM ESTAttending Attestation : I have seen and examined Pamlea Espinoza on 05/30/2018 independently of the hospital medicine staff team and discussed with them all pertinent findings. I have personally reviewed all available clinicaldata related to today's encounter. I have been fully involved in formulation of the above-documented assessment and plan and it has been thoroughly discussed with the residents/interns. Pamela Espinoza states that she feels relatively ok, still having some abdominal pain. Found to have microperforation. GI & gen surg on c/s will continue atbx and supportive care w/serial exams. Signed, Rome Calhoun MD Clearing Inspector of Clinical medicine Department of Internal Medicine Division of [facility] Mary Nash MD - 05/29/2018 7:23 PM ESTFormatting of this note may be different from the original. GASTROENTEROLOGY, HEPATOLOGY & NUTRITION PROGRESS NOTE Subjective/Interval Events: Patient seen and evaluated at bedside. Reports continued abdominal pain but marked improvement as compared to yesterday immediatly post procedure. Febrile to 103 last night but afebrile since antibiotics were started. CT A/P with perforation around site from polypectomy. Objective: Temp: [98.8 ??F (37.1 ??C)-103 ??F (39.4 ??C)] 98.8 ??F (37.1 ??C) Pulse (Heart Rate): [90-137] 90 Resp Rate: [16-28] 16 BP: (99-118)/(47-57) 110/53 O2 Sat (%): [90 %-97 %] 97 % Gen: No acute distress. Comfortable. HEENT: No scleral icterus. Respiratory: CTA bilaterally Cardiovascular: RRR, no m/r/g Abdominal: Soft. + BS. Mildly distended. Mildly TTP diffusely. No ascites present Neurological: No gross deficits. Extremities: 2+ pulses, no edema Medications: ??? bimatoprost 1 drop Both Eyes QHS ??? brimonidine 1 drop Both Eyes BID ??? budesonide 3 mg Oral QAM ??? ceFEPIme (MAXIPIME) IVPB 2 g Intravenous Q12H ??? hydroxychloroquine 200 mg Oral Daily ??? levothyroxine 75 mcg Oral Before BKF ??? metronidazole 500 mg Intravenous Q8H ??? sodium chloride 0.9% 0-250 mL Intravenous See admin instructions ??? timolol maleate 1 drop Both Eyes Daily ??? [START ON 05/30/2018] Vancomycin (VANCOCIN) IVPB 1,000 mg Intravenous Q24H Labs: All relevant labs were reviewed. WBC/Hgb/Hct/Plts: 7.79/6.8/21.3/139 (05/29 0016-05/29 152) Bun/Creat/Cl/CO2/Glucose: 2/0.76/102/20/100 (05/29 16) Na/K+/Phos/Mg/Ca: 139/4.1/--/1.5/-- (05/29 16) Lab Results Component Value Date ALT 23 05/26/2018 AST 31 05/26/2018 ALKPHOS 47 05/26/2018 BILITOTAL 1.1 05/26/2018 BILIDIRECT 0.1 05/26/2018 INR 1.1 05/29/2018 Imaging: CT A/P with contrast (05/29/18): 1. ??Cecal pole is slightly high riding in the right mid abdomen. Focal thinning with defect in the posterior ascending colonic wall just superior to the ileocecal valve demonstrated with some adjacent fluid and stranding/inflammation in the pericolonic fat suggesting microperforation. This may be at site of polyp removal although polyp removed from this area was only 3 mm. No gross pneumoperitoneum identified though. 2. ??No loculated rim-enhancing or air-containing collection. Normal appendix. 3. ??There is some fluid and air distention of the proximal colon. Remainder of the colon is fairly collapsed. Wall appears prominent although this may be due to degree of distention. Extensive colonic diverticulosis present with no evidence of acute diverticulitis. 4. ??Enhancing lesion in the right dome likely perfusional versus benign lesion such as focal nodular hyperplasia. 5. ??Cholecystectomy. Biliary dilatation likely secondary to same. 6. ??Hiatal hernia. Large duodenal diverticulum. ASSESSMENT AND PLAN: Pamela Espinoza is a 78 y.o. female who has a past history notable for IMPRESSION * Post-polypectomy perforation * Sepsis * BRBPR 2/2 internal hemorrhoids RECOMMENDATIONS - Agree with IV antibiotics, please continue - Agree with acute care surgery with conservative management, appreciate there assistance in management - NPO for now - Closely monitor abdominal exams - Will continue to follow Discussed with Dr. Mobley, Mary Nash MD Gastroenterology Fellow, PGY-V Marleny Quevedo RN - 05/29/2018 4:00 PM ESTInitial Assessment Reason for Admission per H&P note: 78 y.o. female history of prior GI bleed w/ R sided AVMs, diverticulitis, HTN, HLD, hypothyroidism, autoimmune hepatitis, and lupus who presents with the following: ?? 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 HCPOA Contact: daughter Marga Ramires [phone] Legal NOK Contact: as above PCP and Specialty Physicians PCP: Ashvin Cardenas Date last see: December 2017-treated at that time for shingles Specialist Physician Name: PCP Ashvin Cardenas; Rheum ; Liver (sees Q3 months);Derm Medication Management Community Pharmacy: [facility] [place] Prescription Coverage: yes Able to pay for medications: low cost Anticoagulation management: no Living Environment Lives With: spouse, other (see comments), alone (spouse is currently hospitalized for past 3 months so patient is living alone) Living Arrangements: house Provides Primary Care For: no one Primary Care Provided By: child(antony), self Support System: Immediate family, Extended family, Friends Able to Return to Prior Arrangements: yes Employment/Financial Employed?: Retired Employment/Financial Concerns: no Source Of Income: social security, pension/long term Financial Concerns: none Instrumental ADLs Is the patient's current functional status different than their prior functional status: No Mental Status Current Mental Status/Cognitive Functioning: no deficits noted Recent Changes in Mental Status/Cognitive Functioning: no changes Values and Beliefs (I) Influence Impact: na Patient Coping and Stress Patient Coping/Stress Concerns: No Patient Personal Strengths: strong support system, able to adapt Sources Of Support: adult child(antony), other family members, spouse Reaction To Health Status: accepting, adjusting Understanding Of Condition And Treatment: adequate understanding of medical condition, adequate understanding of treatment Caregiver Coping and Stress Caregiver Coping/Stress Concerns: No Primary Caregiver Strengths: strong support system Sources Of Support: adult child(antony), friend(s), other family members, spouse Reaction To Health Status: accepting, adjusting Understanding Of Condition And Treatment: adequate understanding of medical condition, adequate understanding of treatment Plan Of Care Reviewed With: patient, son, grandchild(antony) Services Prior to Admission Home Care Services (PUBLIC AFFAIRS MANAGER): No Medical Supplies (PUBLIC AFFAIRS MANAGER): None Candles Pourer: none Affiliated Program: na Transportation Transportation Available: family or friend will provide Person who will be providing transportation: family Availability: at discharge Initial Discharge Planning Activity: independently Anticipated discharge disposition: Home Anticipated Changes Related to Illness: none Readmission Within The Last 30 Days: no previous admission in last 30 days Current Discharge Risk: high risk diagnoses (i.e., CHF, Stroke, DM, chronic pain, abdominal pain, nausea and vomiting), >65 years of age, chronically ill, other (see comments) (currently living alone as spouse is in hospital rehab) Transportation Available: family or friend will provide Concerns to be Addressed Concerns To Be Addressed: discharge planning concerns Concerns Comments: follow up plan per Medicine and consulting teams at discharge Case Management Plan - Problems and Interventions 1. Follow up plan per Medicine and consulting teams at discharge 2.PT/OT recs 3. Iván Ochoa MD - 05/29/2018 10:04 AM ESTFormatting of this note may be different from the original. Internal Medicine Daily Progress Note Patient: Pamela Espinoza, 1940, [id number] Physician: Iván Ochoa MD, GM5 Service Subjective/Interval History: Yesterday after the colonoscopy the patient had acute abdominal pain. There was concern for gaseous distension and an abdominal x-ray was ordered by the attending performing the colonoscopy, who talkedwith radiology and said that it looked ok. No AVM were found on colonoscopy, only hemorrhoids. Overnight the patient became febrile, tachycardic, and tachypneic. She was started on Vanc/Cefepime. She continued to endorse abdominal pain. This morning she said that she would have pain whenever she wouldmove. She says that this fever was abnormal for her even after having a colonoscopy. She was startedon Flagyl in addition to the Vanc/Cefepime and a stat CT A/P with contrast was ordered. Medications: Continuous: sodium chloride 0.9% Last Rate: Stopped (05/29/18614) Scheduled: bimatoprost 1 drop QHS brimonidine 1 drop BID budesonide 3 mg QAM ceFEPIme (MAXIPIME) IVPB 2 g Q12H hydroxychloroquine 200 mg Daily levothyroxine 75 mcg Before BKF metronidazole 500 mg Q8H timolol maleate 1 drop Daily [START ON 05/30/2018] Vancomycin (VANCOCIN) IVPB 1,000 mg Q24H PRN:acetaminophen, melatonin, ondansetron 4mg/2ml OR ondansetron, oxyCODONE, prochlorperazine, sodium chloride 0.9% Objective: Vitals: 05/29/18623 BP: 116/57 Pulse: 104 Resp: 18 Temp: 100 ??F (37.8 ??C) O2 Device: room air (05/29/18 0200) Flow (L/min): 2 (05/29/18 0029) Gen: NAD, A&Ox4, good eye contact, well appearing, responds appropriately HEENT: atraumatic, normocephalic, face symmetric, sclerae anicteric, mucous membranes moist, Resp: no visible chest wall deformities, non-labored breathing, CTAB, no wheezes/crackles/rales CV: regular rate, systolic murmur, normal S1/S2, GI: soft, diffuse tenderness to palpation of abdomen (RLQ worst), non-distended, NABS, no rebound orguarding Ext: warm and well perfused, pulses intact, no LE edema, no clubbing or cyanosis Skin: intact, no rashes/bruises/ulcers Neuro: A&Ox4, speech fluent, CN II-XII grossly intact, no focal deficits on exam Psych: Appropriate mood and affect for clinical situation Body mass index is 22.97 kg/m??. Data Review: WBC/Hgb/Hct/Plts: 7.79/7.2/21.6/139 (05/29 16-05/29 850) Na/K+/Phos/Mg/Ca: 139/4.1/--/1.5/-- (05/29 16) Bun/Creat/Cl/CO2/Glucose: 2/0.76/102/20/100 (05/29 16) Ptt/Pt/Inr: 25.0/14.4/1.1 (05/29 16) Lab Results Component Value Date ALT 23 05/26/2018 AST 31 05/26/2018 ALKPHOS 47 05/26/2018 BILITOTAL 1.1 05/26/2018 BILIDIRECT 0.1 05/26/2018 EKG: NSR with rate of 86 Assessment/Plan: Pamela Espinoza is a 78 y.o. female with a history of prior GI bleed w/ R sided AVMs, diverticulitis,HTN, HLD, hypothyroidism, autoimmune hepatitis, and lupus who presents with as a transfer from [facility] for evaluation of rectal bleeding. Sepsis: Overnight 05/28-05/29 the patient became febrile, tachycardic, and tachypneic. She continuedto have abdominal pain after the colonoscopy. She is on Vanc/Cefepime/Flagyl. We ordered a stat CT A/P to evaluate for microperforation. -Continue Vanc/Cefepime/Flagyl -CT A/P STAT -BCx x2 -UA w/ reflex to Cx Acute Blood loss anemia 2/2 GI Bleed: R sided AVMs, Stage III hemorrhoids, diverticuli noted in colonoscopy from outside hospital. Hgb dropping from 13.5 down to 9.0 over 3 days. Pt reports BRBPR with clots before admission. Pt remains HD stable. Colonoscopy at [facility] showed hemorrhoids but no AVM -H&H q6hr -Transfuse if Hb <7, type and cross -GI consulted, appreciate recs -Colonoscopy with GI completed HTN: Home medication includes metoprolol -Holding metoprolol in case it is masking hypovolemic tachycardia ?? Systolic Murmur: Pt did not report knowing of this in the past. Her last Echo was in 2011. She also reports that she was possibly told once (in [place]) that she has AFib We will repeat echo and get anEKG (did not show any Afib). -TTE pending -EKG w/ NSR at a rate of 86 ?? Autoimmune Hepatitis: -Continue budesonide ?? Systemic Lupus Erythematosus: -Continue plaquenil ?? Glaucoma -Continue timolol, xalatan, and alphagan ?? Hypothyroidism -Continue synthroid FEN/GI: DIET REGULAR Ppx: SCDs Dispo: Admission on GM5 Code Status: Full Code Plan discussed with team and Dr. Calhoun on rounds. Signed, Iván Ochoa MD PGY-1 Internal Medicine Associated attestation - Rome Calhoun MD - 05/29/2018 4:22 PM ESTAttending Attestation : I have seen and examined Pamela Espinoza on 05/29/2018 independently of the hospital medicine staff team and discussed with them all pertinent findings. I have personally reviewed all available clinicaldata related to today's encounter. I have been fully involved in formulation of the above-documented assessment and plan and it has been thoroughly discussed with the residents/interns. Pamela Espinoza underwent colonoscopy yesterday which showed bleeding internal hemorrhoids. Subsequent to this she developed sepsis, ct a/p obtained this AM showing a microperforation, GI/gen surg on consultation & currently favoring conservative management will continue broad spectrum antibiotics for now, pending culture data. Signed, Rome Calhoun MD Clearing Inspector of Clinical medicine Department of Internal Medicine Division of [facility] Marv Cabral, - 05/29/2018 6:48 AM ESTAlert via an urgent page that pt was T103, HR 137 after colonoscopy procedure the previous day. Ins tructed staff to start 1L bolus on the phone and immediately went to bedside. Patient was A&Ox3 on initial inspection, protecting her airway, in no acute distress. Repeat blood pressure in the roomshowed pressures in 90s/50s. There were concerns earlier that she may have incurred acute performation during colonoscopy 2/2 abd pain after procedure. AXR post-procedure was negative for acute changes. Patient during encounter reported her RLQ pain was better since the procedure. However, given new vitals sign changes, bolus was increased to 2L resusciation of LR, lactate, BCx2, UC, and CXR were obtained. Patient was started on empiric abx coverage with Vancomycin and Cefepime. Considerations at the time were bacterial sepsis 2/2 translocation of bacteria post-colonoscopy vs colonic perforation vsaspiration PNA from earlier conscientious sedation for procedure vs UTI. Patient responded appropriately for fluid resuscitation. PE: Gen: A&Ox3, no acute distress, laying in bed Cardiac: RRR, no m/r/g Lungs: CTA-B, no w/r/r Abd: RLQ tenderness on palpation Ext: No lower ext edema Skin: No rashes, lesions or bruises. Assessment/Plan: -Appropriate response to fluids -Continue abx as above -Follow studies and cultures -Low threshold for CT A/P if worsening abdominal pain for concerns of colonic perforation 2/2 colonoscopy procedure yesterday. Marv Cabral DO Pager # [phone] PGY-1, Department of Internal Medicine Elizabeth Ortiz MD - 05/28/2018 5:42 PM ESTPatient with post-colonoscopy pain. Procedure was uncomplicated. Moderate distention on exam and epigastric tenderness. AXR without evidence of perforation. Patient with decreased pain with fentanyl. Suspect gaseous distention that should improve with time. Iván Ochoa MD - 05/28/2018 10:29 AM ESTFormatting of this note may be different from the original. Internal Medicine Daily Progress Note Patient: Pamela Espinoza, 1940, [id number] Physician: Iván Ochoa MD, GM5 Service Subjective/Interval History: No acute events overnight. The patient did complete the bowel prep last night. She did endorse increased GI bleeding with the bowel prep. She denies any other bleeding. She has no pain or any other concerns this morning. She says she feels a little tachycardic. Otherwise she is HD stable. No CP or SOB. She is currently scheduled to have a repeat colonoscopy today at 1610 with GI. Medications: Continuous: sodium chloride 0.9% Last Rate: 50 mL/hr at 05/28/18 0849 Scheduled: bimatoprost 1 drop QHS brimonidine 1 drop BID budesonide 3 mg QAM hydroxychloroquine 200 mg Daily levothyroxine 75 mcg Before BKF pantoprazole 40 mg BID potassium chloride 40 mEq Q4H timolol maleate 1 drop Daily PRN:acetaminophen, melatonin, ondansetron 4mg/2ml OR ondansetron, prochlorperazine, sodium chloride 0.9% Objective: Vitals: 05/28/18 0700 BP: 150/65 Pulse: 103 Resp: 20 Temp: 98.7 ??F (37.1 ??C) O2 Device: room air (05/28/18 0841) Gen: NAD, A&Ox4, good eye contact, well appearing, responds appropriately HEENT: atraumatic, normocephalic, face symmetric, sclerae anicteric, mucous membranes moist, Resp: no visible chest wall deformities, non-labored breathing, CTAB, no wheezes/crackles/rales CV: regular rate, systolic murmur, normal S1/S2, GI: soft, non-tender, non-distended, NABS, no rebound or guarding Ext: warm and well perfused, pulses intact, no LE edema, no clubbing or cyanosis Skin: intact, no rashes/bruises/ulcers Neuro: A&Ox4, speech fluent, CN II-XII grossly intact, no focal deficits on exam Psych: Appropriate mood and affect for clinical situation Body mass index is 22.97 kg/m??. Data Review: WBC/Hgb/Hct/Plts: 4.39/7.9/24.2/140 (05/28 108-05/28 601) Na/K+/Phos/Mg/Ca: 138/2.9/--/1.6/-- (05/28 108) Bun/Creat/Cl/CO2/Glucose: 3/0.55/105/24/100 (05/28 108) Ptt/Pt/Inr: 26.7/14.3/1.1 (05/28 108) Lab Results Component Value Date ALT 23 05/26/2018 AST 31 05/26/2018 ALKPHOS 47 05/26/2018 BILITOTAL 1.1 05/26/2018 BILIDIRECT 0.1 05/26/2018 EKG: NSR with rate of 86 Assessment/Plan: Pamela Espinoza is a 78 y.o. female with a history of prior GI bleed w/ R sided AVMs, diverticulitis,HTN, HLD, hypothyroidism, autoimmune hepatitis, and lupus who presents with as a transfer from [facility] for evaluation of rectal bleeding. Acute GI Bleed in Setting of AVM of Colon: R sided AVMs, Stage III hemorrhoids, diverticuli noted incolonoscopy. Hgb dropping from 13.5 down to 9.0 over 3 days. Pt reports BRBPR with clots before admission. Pt remains HD stable. Hgb decreased after colonoscopy prep. She will have a colonoscopy today. -H&H q6hr -Transfuse if Hb <7, type and cross -GI consulted, appreciate recs -IV pantoprazole -Colonoscopy with GI ?? Fever (Resolved): Fevered up to 102.1F on 05/26/18. No fevers before admission. Pt has previously had fevers when receiving colonoscopies, which she believes have had been associated with autoimmune disease. Infectious workup including blood cx and urine cx. Will hold off on abx for now unless other systemic sx present. Has remained afebrile. -BCx NGTD -UCx Negative HTN: Home medication includes metoprolol -Holding metoprolol in case it is masking hypovolemic tachycardia ?? Systolic Murmur: Pt did not report knowing of this in the past. Her last Echo was in 2011. She also reports that she was possibly told once (in [place]) that she has AFib We will repeat echo and get anEKG (did not show any Afib). -TTE pending -EKG w/ NSR at a rate of 86 ?? Autoimmune Hepatitis: -Continue budesonide ?? Systemic Lupus Erythematosus: -Continue plaquenil ?? Glaucoma -Continue timolol, xalatan, and alphagan ?? Hypothyroidism -Continue synthroid FEN/GI: DIET NPO with meds Ppx: SCDs Dispo: Admission on GM5 Code Status: Full Code Plan discussed with team and Dr. Calhoun on rounds. Signed, Iván Ochoa MD PGY-1 Internal Medicine Associated attestation - Rome Calhoun MD - 05/28/2018 2:34 PM ESTAttending Attestation : I have seen and examined Pamela Espinoza on 05/28/2018 independently of the hospital medicine staff team and discussed with them all pertinent findings. I have personally reviewed all available clinicaldata related to today's encounter. I have been fully involved in formulation of the above-documented assessment and plan and it has been thoroughly discussed with the residents/interns. Pamela Espinoza states that she feels relatively well today, did have some mild hematochezia with bowel prep, but this has since resolved. Planning on C-Scope this afternoon w/GI and will await their recommendations from this. Also awaiting echo results. Signed, Rome Calhoun MD Clearing Inspector of Clinical medicine Department of Internal Medicine Division of [facility] Iván Ochoa MD - 05/27/2018 10:40 AM ESTFormatting of this note may be different from the original. Internal Medicine Daily Progress Note Patient: Pamela Espinoza, 1940, [id number] Physician: Iván Ochoa MD, GM5 Service Subjective/Interval History: No acute events overnight. This morning the patient is doing well. She does endorse having a nosebleed this AM but says that it is self resolving. She had 1 BM overnight that was loose/runny but does not endorse seeing any blood in it. She denies any other symptoms. The patient is going to have a repeat colonoscopy with GI, probably tomorrow and will start the preptoday. The patient is aware of this and is agreeable to the plan. Medications: Continuous: sodium chloride 0.9% Last Rate: 50 mL/hr at 05/27/18 0843 Scheduled: bimatoprost 1 drop QHS brimonidine 1 drop BID budesonide 3 mg QAM hydroxychloroquine 200 mg Daily levothyroxine 75 mcg Before BKF pantoprazole 40 mg BID peg 3350 w/electrolytes 4 L Once timolol maleate 1 drop Daily PRN:acetaminophen, melatonin, ondansetron 4mg/2ml OR ondansetron, prochlorperazine, sodium chloride 0.9% Objective: Vitals: 05/27/18 0749 BP: 127/59 Pulse: 93 Resp: 18 Temp: 98.4 ??F (36.9 ??C) O2 Device: room air (05/27/18 0749) Gen: NAD, A&Ox4, good eye contact, well appearing, responds appropriately HEENT: atraumatic, normocephalic, face symmetric, sclerae anicteric, mucous membranes moist, Resp: no visible chest wall deformities, non-labored breathing, CTAB, no wheezes/crackles/rales CV: regular rate, systolic murmur, normal S1/S2, GI: soft, non-tender, non-distended, NABS, no rebound or guarding Ext: warm and well perfused, pulses intact, no LE edema, no clubbing or cyanosis Skin: intact, no rashes/bruises/ulcers Neuro: A&Ox4, speech fluent, CN II-XII grossly intact, no focal deficits on exam Psych: Appropriate mood and affect for clinical situation Body mass index is 22.97 kg/m??. Data Review: WBC/Hgb/Hct/Plts: 5.90/9.1/27.1/131 (05/27 142) Na/K+/Phos/Mg/Ca: 134/4.2/--/--/-- (05/27 142) Bun/Creat/Cl/CO2/Glucose: 5/0.64/104/20/70 (05/27 142) Ptt/Pt/Inr: 27.1/14.2/1.1 (05/27 142) Lab Results Component Value Date ALT 23 05/26/2018 AST 31 05/26/2018 ALKPHOS 47 05/26/2018 BILITOTAL 1.1 05/26/2018 BILIDIRECT 0.1 05/26/2018 EKG: NSR with rate of 86 Assessment/Plan: Pamela Espinoza is a 78 y.o. female with a history of prior GI bleed w/ R sided AVMs, diverticulitis,HTN, HLD, hypothyroidism, autoimmune hepatitis, and lupus who presents with as a transfer from [facility] for evaluation of rectal bleeding. Acute GI Bleed in Setting of AVM of Colon: R sided AVMs, Stage III hemorrhoids, diverticuli noted incolonoscopy. Hgb dropping from 13.5 down to 9.0 over 3 days. Pt reports BRBPR with clots. Pt remainsHD stable. She will have colonoscopy with GI in the am. Prep will start today. -H&H q6hr -Transfuse if Hb <7, type and cross -GI consulted, appreciate recs -IV pantoprazole -Colonoscopy with GI. Prep will start 05/27/18 at 1600 -Clear liquid diet, NPO at midnight ?? Fever (Resolved): Fevered up to 102.1F on 05/26/18. No fevers before admission. Pt has previously had fevers when receiving colonoscopies, which she believes have had been associated with autoimmune disease. Infectious workup including blood cx and urine cx. Will hold off on abx for now unless other systemic sx present. Has remained afebrile. -BCx NGTD -UCx pending ?? HTN: Home medication includes metoprolol -Holding metoprolol in case it is masking hypovolemic tachycardia ?? Systolic Murmur: Pt did not report knowing of this in the past. Her last Echo was in 2011. She also reports that she was possibly told once (in [place]) that she has AFib We will repeat echo and get anEKG (did not show any Afib). -TTE pending -EKG w/ NSR at a rate of 86 ?? Autoimmune Hepatitis: -Continue budesonide ?? Systemic Lupus Erythematosus: -Continue plaquenil ?? Glaucoma -Continue timolol, xalatan, and alphagan ?? Hypothyroidism -Continue synthroid FEN/GI: DIET CLEAR LIQUID DIET NPO with meds Ppx: SCDs Dispo: Admission on [facility]5 Code Status: Full Code Plan discussed with team and Dr. Calhoun on rounds. Signed, Iván Ochoa MD PGY-1 Internal Medicine Associated attestation - Rome Calhoun MD - 05/27/2018 2:23 PM ESTAttending Attestation : I have seen and examined Pamela Espinoza on 05/27/2018 independently of the hospital medicine staff team and discussed with them all pertinent findings. I have personally reviewed all available clinicaldata related to today's encounter. I have been fully involved in formulation of the above-documented assessment and plan and it has been thoroughly discussed with the residents/interns. Pamela Espinoza states that she has had a minimal nosebleed which is spontaneously resolving. No recurrent hematochezia. GI on c/s planning on colonoscopy to eval bleeding. Given murmur will check echo to eval for & if present consider heyde's sx. Signed, Rome Calhoun MD Clearing Inspector of Clinical medicine Department of Internal Medicine Division of Hospital Medicine Iván Ochoa MD - 05/26/2018 7:02 AM ESTUpdated Plan of Care Pt was admitted w/ BRBPR. Was found to have AVM and diverticulosis via Colonoscopy on 05/25/18 at [facility]. Her Hgb continues to decrease (13.5 on 05/23/18 down to 9.0 today). Pt did run a feverup to 102.1F. She endorses having fevers in the past with colonoscopies and believes these are associated with her autoimmune diseases (Lupus and autoimmune hepatitis). Pt states that she has had diverticulitis requiring ABX in the past but that this does not feel anything close to this. She said thesymptoms are completely different and this doesn't feel like when I've had diverticulitis and required antibiotics in the past. Acute GI Bleed in Setting of AVM of Colon: R sided AVMs, Stage III hemorrhoids, diverticuli noted incolonoscopy. Hgb dropping from 13.5 down to 9.0 over 3 days. Pt reports BRBPR with clots. Pt remainsHD stable. -H&H q6hr -Transfuse if Hb <7, type and cross -GI consulted, appreciate recs -Pt NPO, clear liquids yesterday after complete bowel prep the night of 05/24 -IV pantoprazole -MIVF while NPO ?? Fever: Fevered up to 102.1F today. Has not had fevers in this past week. Pt has previously had fevers when receiving colonoscopies, which she believes have had been associated with autoimmune disease. -Infectious workup including blood cx and urine cx -Will hold off on abx for now unless other systemic sx present ?? HTN: Home medication includes metoprolol -Holding metoprolol in case it is masking hypovolemic tachycardia Systolic Murmur: Pt did not report knowing of this in the past. Her last Echo was in 2011. She also reports that she was possibly told once (in [place]) that she has AFib We will repeat echo and get anEKG. If the EKG does show Afib we will consider an anticoagulant closer to discharge but will not start one currently due to current GI bleed. -TTE -EKG ?? Autoimmune Hepatitis -Continue budesonide ?? Systemic Lupus Erythematosis -Continue plaquenil ?? Glaucoma -Continue timolol, xalatan, and alphagan ?? Hypothyroidism -Continue synthroid Iván Ochoa MD PGY-1, Internal Medicine in this encounter Plan of Treatment Upcoming Encounters Date Type Specialty Care Team Description 07/15/2018 Office Visit Endocrinology, Diabetes & Rm Tomlinson, DO Metabolism [address] [facility] 5th [place] [address] Scheduled Tests Name Priority Associated Diagnoses Order Schedule ECG STAT Needed until discontinued starting 05/25/2018 CHEM 7 Routine Every morning Lab until (LYTES,BUN,CREA,GLUC) discontinued starting 05/26/2018, 20 completed PT,INR,PTT Routine Every morning Lab until discontinued starting 05/26/2018, 19 completed MAGNESIUM Routine Every morning Lab until discontinued starting 05/29/2018, 18 completed PREPARE TO TRANSFUSE RED Routine Once for 1 Occurrences BLOOD CELLS starting 05/29/2018 until 05/29/2018 CBC,PLATELETS Routine Every morning Lab until discontinued starting 05/30/2018, 17 completed Scheduled Referrals Name Priority Associated Diagnoses Order Schedule IP CONSULT TO WOUND / OSTOMY Routine One Time for 1 Occurrences NURSING TEAM starting 06/02/2018 until 06/02/2018 IP CONSULT TO OCCUPATIONAL Routine One Time for 1 Occurrences THERAPY starting 06/11/2018 until 06/11/2018 IP CONSULT TO PHYSICAL Routine One Time for 1 Occurrences THERAPY starting 06/11/2018 until 06/11/2018 AMB REFERRAL TO Routine Adrenal insufficiency Ordered: 06/13/2018 ENDOCRINOLOGY Health Maintenance Due Date Last Done Comments DEXA SCAN DISCUSSION 1940 TETANUS 02/09/1958 TDAP (ADULT) 02/09/1959 PAP SMEAR DISCUSSION 02/09/1961 MAMMOGRAM SCREENING DISCUSSION 1980 PNEUMOCOCCAL VACCINE SERIES (1 of 2 - 02/09/2005 PCV13) INFLUENZA VACCINE (#1) 2018 COLON CANCER SCREENING DISCUSSION 05/28/2019 05/28/2018, 05/28/2018 TSH 06/08/2019 06/08/2018 as of this encounter Procedures Procedure Name Priority Date/Time Associated Comments Diagnosis PT,INR,PTT Routine 06/15/2018 3:00 Results for this AM EST procedure are in the results section. CBC,PLATELETS Routine 06/15/2018 3:00 Results for this AM EST procedure are in the results section. CHEM 7 Routine 06/15/2018 3:00 Results for this (LYTES,BUN,CREA,GLUC) AM EST procedure are in the results section. MAGNESIUM Routine 06/15/2018 3:00 Results for this AM EST procedure are in the results section. PT,INR,PTT Routine 06/14/2018 3:22 Results for this AM EST procedure are in the results section. CBC,PLATELETS Routine 06/14/2018 3:22 Results for this AM EST procedure are in the results section. CHEM 7 Routine 06/14/2018 3:22 Results for this (LYTES,BUN,CREA,GLUC) AM EST procedure are in the results section. MAGNESIUM Routine 06/14/2018 3:22 Results for this AM EST procedure are in the results section. PT,INR,PTT Routine 06/13/2018 3:12 Results for this AM EST procedure are in the results section. CBC,PLATELETS Routine 06/13/2018 3:12 Results for this AM EST procedure are in the results section. CHEM 7 Routine 06/13/2018 3:12 Results for this (LYTES,BUN,CREA,GLUC) AM EST procedure are in the results section. MAGNESIUM Routine 06/13/2018 3:12 Results for this AM EST procedure are in the results section. PT,INR,PTT Routine 06/12/2018 3:23 Results for this AM EST procedure are in the results section. CBC,PLATELETS Routine 06/12/2018 3:23 Results for this AM EST procedure are in the results section. CHEM 7 Routine 06/12/2018 3:23 Results for this (LYTES,BUN,CREA,GLUC) AM EST procedure are in the results section. MAGNESIUM Routine 06/12/2018 3:23 Results for this AM EST procedure are in the results section. PT,INR,PTT Routine 06/11/2018 3:26 Results for this AM EST procedure are in the results section. CBC,PLATELETS Routine 06/11/2018 3:26 Results for this AM EST procedure are in the results section. CHEM 7 Routine 06/11/2018 3:26 Results for this (LYTES,BUN,CREA,GLUC) AM EST procedure are in the results section. MAGNESIUM Routine 06/11/2018 3:26 Results for this AM EST procedure are in the results section. VASC DUPLEX VENOUS Routine 06/10/2018 2:32 EXTREMITY UPPER RIGHT PM EST PERFORMED PT,INR,PTT Routine 06/10/2018 2:44 Results for this AM EST procedure are in the results section. CBC,PLATELETS Routine 06/10/2018 2:44 Results for this AM EST procedure are in the results section. CHEM 7 Routine 06/10/2018 2:44 Results for this (LYTES,BUN,CREA,GLUC) AM EST procedure are in the results section. MAGNESIUM Routine 06/10/2018 2:44 Results for this AM EST procedure are in the results section. ACTH Urgent 06/09/2018 3:18 Results for this PM EST procedure are in the results section. CORTISOL Routine 06/09/2018 6:14 Results for this AM EST procedure are in the results section. PT,INR,PTT Routine 06/09/2018 4:02 Results for this AM EST procedure are in the results section. CBC,PLATELETS Routine 06/09/2018 4:02 Results for this AM EST procedure are in the results section. CHEM 7 Routine 06/09/2018 4:02 Results for this (LYTES,BUN,CREA,GLUC) AM EST procedure are in the results section. PHOSPHATE, INORGANIC Routine 06/09/2018 4:02 Results for this AM EST procedure are in the results section. MAGNESIUM Routine 06/09/2018 4:02 Results for this AM EST procedure are in the results section. CORTISOL Routine 06/09/2018 4:02 Results for this AM EST procedure are in the results section. PROCALCITONIN Routine 06/08/2018 2:56 Results for this AM EST procedure are in the results section. PT,INR,PTT Routine 06/08/2018 2:56 Results for this AM EST procedure are in the results section. CBC,PLATELETS Routine 06/08/2018 2:56 Results for this AM EST procedure are in the results section. CHEM 7 Routine 06/08/2018 2:56 Results for this (LYTES,BUN,CREA,GLUC) AM EST procedure are in the results section. TSH Routine 06/08/2018 2:56 Results for this AM EST procedure are in the results section. MAGNESIUM Routine 06/08/2018 2:56 Results for this AM EST procedure are in the results section. CORTISOL Routine 06/08/2018 2:56 Results for this AM EST procedure are in the results section. UA, TOTAL W/REFLEX TO Routine 06/07/2018 8:40 Results for this CULTURE AM EST procedure are in the results section. OSMOLALITY, URINE Routine 06/07/2018 8:40 Results for this AM EST procedure are in the results section. LYTES (NA, K, CL) - Routine 06/07/2018 8:40 Results for this URINE - RANDOM AM EST procedure are in the results section. XR CHEST AP PORTABLE STAT 06/07/2018 7:37 Results for this AM EST procedure are in the results section. BLOOD CULTURE, Routine 06/07/2018 7:37 Results for this PERIPHERAL 2ND SITE AM EST procedure are in the results section. BLOOD CULTURE, Routine 06/07/2018 7:30 Results for this PERIPHERAL 1ST SITE AM EST procedure are in the results section. PT,INR,PTT Routine 06/07/2018 3:31 Results for this AM EST procedure are in the results section. CBC,PLATELETS Routine 06/07/2018 3:31 Results for this AM EST procedure are in the results section. CHEM 7 Routine 06/07/2018 3:31 Results for this (LYTES,BUN,CREA,GLUC) AM EST procedure are in the results section. OSMOLALITY Routine 06/07/2018 3:31 Results for this AM EST procedure are in the results section. MAGNESIUM Routine 06/07/2018 3:31 Results for this AM EST procedure are in the results section. CT ABDOMEN/PELVIS WITH Routine 06/06/2018 3:08 Results for this CONTRAST PM EST procedure are in the results section. PT,INR,PTT Routine 06/06/2018 3:11 Results for this AM EST procedure are in the results section. CBC,PLATELETS Routine 06/06/2018 3:11 Results for this AM EST procedure are in the results section. CHEM 7 Routine 06/06/2018 3:11 Results for this (LYTES,BUN,CREA,GLUC) AM EST procedure are in the results section. MAGNESIUM Routine 06/06/2018 3:11 Results for this AM EST procedure are in the results section. PT,INR,PTT Routine 06/05/2018 3:15 Results for this AM EST procedure are in the results section. CBC,PLATELETS Routine 06/05/2018 3:15 Results for this AM EST procedure are in the results section. CALCIUM Routine 06/05/2018 3:15 Results for this AM EST procedure are in the results section. CHEM 7 Routine 06/05/2018 3:15 Results for this (LYTES,BUN,CREA,GLUC) AM EST procedure are in the results section. PHOSPHATE, INORGANIC Routine 06/05/2018 3:15 Results for this AM EST procedure are in the results section. MAGNESIUM Routine 06/05/2018 3:15 Results for this AM EST procedure are in the results section. ECG Routine 06/04/2018 10:17 AM EST PT,INR,PTT Routine 06/04/2018 3:02 Results for this AM EST procedure are in the results section. CBC,PLATELETS Routine 06/04/2018 3:02 Results for this AM EST procedure are in the results section. CHEM 7 Routine 06/04/2018 3:02 Results for this (LYTES,BUN,CREA,GLUC) AM EST procedure are in the results section. MAGNESIUM Routine 06/04/2018 3:02 Results for this AM EST procedure are in the results section. CBC,PLATELETS Routine 06/03/2018 2:37 Results for this AM EST procedure are in the results section. CHEM 7 Routine 06/03/2018 2:37 Results for this (LYTES,BUN,CREA,GLUC) AM EST procedure are in the results section. MAGNESIUM Routine 06/03/2018 2:37 Results for this AM EST procedure are in the results section. PT,INR,PTT Routine 06/02/2018 3:32 Results for this AM EST procedure are in the results section. CBC,PLATELETS Routine 06/02/2018 3:32 Results for this AM EST procedure are in the results section. CHEM 7 Routine 06/02/2018 3:32 Results for this (LYTES,BUN,CREA,GLUC) AM EST procedure are in the results section. MAGNESIUM Routine 06/02/2018 3:32 Results for this AM EST procedure are in the results section. CHEM 6 (LYTES, BUN Routine 06/01/2018 4:41 Results for this CREA) PM EST procedure are in the results section. POTASSIUM Routine 06/01/2018 2:06 Results for this PM EST procedure are in the results section. ECG STAT 06/01/2018 6:46 AM EST PT,INR,PTT Routine 06/01/2018 3:26 Results for this AM EST procedure are in the results section. CBC,PLATELETS Routine 06/01/2018 3:26 Results for this AM EST procedure are in the results section. CHEM 7 Routine 06/01/2018 3:26 Results for this (LYTES,BUN,CREA,GLUC) AM EST procedure are in the results section. MAGNESIUM Routine 06/01/2018 3:26 Results for this AM EST procedure are in the results section. HEMOGLOBIN & HEMATOCRIT Routine 05/31/2018 12:54 Results for this PM EST procedure are in the results section. XR CHEST PORTABLE Routine 05/31/2018 12:12 Results for this PM EST procedure are in the results section. XR ABDOMEN 1 VIEW Routine 05/31/2018 12:12 Results for this PORTABLE PM EST procedure are in the results section. GLUCOSE POC Routine 05/31/2018 7:05 Results for this AM EST procedure are in the results section. GLUCOSE POC Routine 05/31/2018 6:30 Results for this AM EST procedure are in the results section. PT,INR,PTT Routine 05/31/2018 3:02 Results for this AM EST procedure are in the results section. CBC,PLATELETS Routine 05/31/2018 3:02 Results for this AM EST procedure are in the results section. CHEM 7 Routine 05/31/2018 3:02 Results for this (LYTES,BUN,CREA,GLUC) AM EST procedure are in the results section. MAGNESIUM Routine 05/31/2018 3:02 Results for this AM EST procedure are in the results section. ECHOCARDIOGRAM W/O 3D Routine 05/30/2018 2:56 Murmur, cardiac Results for this W/BUBBLE STUDY PM EST procedure are in the results section. HEMOGLOBIN & HEMATOCRIT Routine 05/30/2018 7:45 Results for this AM EST procedure are in the results section. CBC,PLATELETS Routine 05/30/2018 1:50 Results for this AM EST procedure are in the results section. PT,INR,PTT Routine 05/30/2018 1:05 Results for this AM EST procedure are in the results section. CHEM 7 Routine 05/30/2018 1:05 Results for this (LYTES,BUN,CREA,GLUC) AM EST procedure are in the results section. MAGNESIUM Routine 05/30/2018 1:05 Results for this AM EST procedure are in the results section. TYPE AND CROSS Routine 05/29/2018 5:34 Results for this PM EST procedure are in the results section. UA, TOTAL W/REFLEX TO Routine 05/29/2018 4:24 Results for this CULTURE PM EST procedure are in the results section. HEMOGLOBIN & HEMATOCRIT Routine 05/29/2018 3:28 Results for this PM EST procedure are in the results section. CT ABDOMEN/PELVIS WITH STAT 05/29/2018 1:19 Results for this CONTRAST PM EST procedure are in the results section. HEMOGLOBIN & HEMATOCRIT Routine 05/29/2018 8:50 Results for this AM EST procedure are in the results section. BLOOD CULTURE, Urgent 05/29/2018 12:30 Results for this PERIPHERAL 1ST SITE AM EST procedure are in the results section. XR CHEST PORTABLE STAT 05/29/2018 12:24 Results for this AM EST procedure are in the results section. PT,INR,PTT Routine 05/29/2018 12:16 Results for this AM EST procedure are in the results section. CBC,PLATELETS Routine 05/29/2018 12:16 Results for this AM EST procedure are in the results section. CHEM 7 Routine 05/29/2018 12:16 Results for this (LYTES,BUN,CREA,GLUC) AM EST procedure are in the results section. MAGNESIUM Routine 05/29/2018 12:16 Results for this AM EST procedure are in the results section. GLUCOSE POC Routine 05/29/2018 12:10 Results for this AM EST procedure are in the results section. LACTATE, BLOOD STAT 05/29/2018 12:01 Results for this AM EST procedure are in the results section. HEMOGLOBIN & HEMATOCRIT STAT 05/29/2018 12:01 Results for this AM EST procedure are in the results section. BLOOD CULTURE, Urgent 05/28/2018 11:52 Results for this PERIPHERAL 2ND SITE PM EST procedure are in the results section. HEMOGLOBIN & HEMATOCRIT Routine 05/28/2018 6:34 Results for this PM EST procedure are in the results section. SURG PATH REQUEST Routine 05/28/2018 6:05 Acute blood loss Results for this PM EST anemia procedure are in the results section. XR ABDOMEN 1 VIEW STAT 05/28/2018 5:22 Results for this PORTABLE PM EST procedure are in the results section. COLONOSCOPY Routine 05/28/2018 3:42 Results for this PM EST procedure are in the results section. COLONOSCOPY DIAGNOSTIC 05/28/2018 3:25 Acute blood loss PM EST anemia POTASSIUM Routine 05/28/2018 1:42 Results for this PM EST procedure are in the results section. HEMOGLOBIN & HEMATOCRIT Routine 05/28/2018 11:51 Results for this AM EST procedure are in the results section. CASE REQUEST - Routine 05/28/2018 9:43 ENDOSCOPY AM EST HEMOGLOBIN & HEMATOCRIT Routine 05/28/2018 6:01 Results for this AM EST procedure are in the results section. PT,INR,PTT Routine 05/28/2018 1:08 Results for this AM EST procedure are in the results section. CBC,PLATELETS Routine 05/28/2018 1:08 Results for this AM EST procedure are in the results section. CHEM 7 Routine 05/28/2018 1:08 Results for this (LYTES,BUN,CREA,GLUC) AM EST procedure are in the results section. MAGNESIUM Routine 05/28/2018 1:08 Results for this AM EST procedure are in the results section. HEMOGLOBIN & HEMATOCRIT Routine 05/27/2018 11:50 Results for this PM EST procedure are in the results section. HEMOGLOBIN & HEMATOCRIT Routine 05/27/2018 6:01 Results for this PM EST procedure are in the results section. HEMOGLOBIN & HEMATOCRIT Routine 05/27/2018 12:04 Results for this PM EST procedure are in the results section. PT,INR,PTT Routine 05/27/2018 1:42 Results for this AM EST procedure are in the results section. CBC,PLATELETS Routine 05/27/2018 1:42 Results for this AM EST procedure are in the results section. CHEM 7 Routine 05/27/2018 1:42 Results for this (LYTES,BUN,CREA,GLUC) AM EST procedure are in the results section. HEMOGLOBIN & HEMATOCRIT Routine 05/26/2018 11:31 Results for this PM EST procedure are in the results section. HEMOGLOBIN & HEMATOCRIT Routine 05/26/2018 5:44 Results for this PM EST procedure are in the results section. UA, TOTAL W/REFLEX TO Urgent 05/26/2018 12:43 Results for this CULTURE PM EST procedure are in the results section. TYPE AND CROSS Routine 05/26/2018 12:30 Results for this PM EST procedure are in the results section. HEMOGLOBIN & HEMATOCRIT Routine 05/26/2018 11:49 Results for this AM EST procedure are in the results section. ECG Routine 05/26/2018 9:53 AM EST URINE CULTURE Routine 05/26/2018 5:30 Results for this AM EST procedure are in the results section. BLOOD CULTURE, Urgent 05/26/2018 5:29 Results for this PERIPHERAL 2ND SITE AM EST procedure are in the results section. BLOOD CULTURE, Urgent 05/26/2018 5:29 Results for this PERIPHERAL 1ST SITE AM EST procedure are in the results section. CBC,PLATELETS STAT 05/26/2018 3:40 Results for this AM EST procedure are in the results section. LACTATE, BLOOD Routine 05/26/2018 1:37 Results for this AM EST procedure are in the results section. PT,INR,PTT Routine 05/26/2018 1:37 Results for this AM EST procedure are in the results section. CHEM 7 Routine 05/26/2018 1:37 Results for this (LYTES,BUN,CREA,GLUC) AM EST procedure are in the results section. HEPATIC FUNCTION PANEL Routine 05/26/2018 1:37 Results for this AM EST procedure are in the results section. in this encounter Results CBC,PLATELETS (06/15/2018 3:00 AM) WBC (WHITE BLOOD COUNT) 8.24 3.99 - 11.19 K/uL LAB, [facility] RBC 3.02 (L) 3.91 - 5.04 M/uL [facility], [facility] HEMOGLOBIN (HGB) 9.0 (L) 11.4 - 15.2 g/dL LAB, [facility] HEMATOCRIT (HCT) 28.3 (L) 34.9 - 44.3 % LAB, [facility] MEAN CELL VOLUME 93.7 79.6 - 97.7 fL LAB, [facility] Mean Cell HGB 29.8 25.9 - 33.9 pg LAB, [facility] MEAN CELL HGB CONCENTRATION 31.8 31.4 - 35.9 g/dL LAB, [facility] RBC DISTRIBUTION 16.8 (H) 10.8 - 14.9 % LAB, [facility] PLATELET COUNT 277 150 - 393 K/uL LAB, [facility] MEAN PLATELET VOLUME 9.7 8.5 - 12.2 fL LAB, [facility] RBC, NUCLEATED 0.0 0.0 - 0.2 /100 WBC LAB, [facility] Performing Organization Address City/State/Zipcode Phone Number LAB, [facility], [address] [place] [address] MAGNESIUM (06/15/2018 3:00 AM) MAGNESIUM 1.8 1.6 - 2.6 mg/dL LAB, [facility] Performing Organization Address [facility] Phone Number LAB, [facility], [address] [place] [phone] PT,INR,PTT (06/15/2018 3:00 AM) PT 14.1 11.9 - 14.2 sec LAB, [facility] INR 1.1 0.9 - 1.1 [facility], [facility] PTT 42.6 (H) 24.0 - 34.3 sec LAB, [facility] Performing Organization Address [facility] Phone Number LAB, [facility], [address] [place] [phone] CHEM 7 (LYTES,BUN,CREA,GLUC) (06/15/2018 3:00 AM) BUN 8 7 - 22 mg/dL [facility], [facility] SODIUM 135 133 - 143 mmol/L LAB, [facility] POTASSIUM 3.0 (L) 3.5 - 5.0 mmol/L LAB, [facility] CHLORIDE 102 98 - 108 mmol/L [facility], [facility] CARBON DIOXIDE (CO2) 21 (L) 22 - 30 mmol/L [facility], [facility] GLUCOSE 105 (H) 70 - 99 mg/dL LAB, [facility] CREATININE SERUM 0.44 (L) 0.50 - 1.20 mg/dL LAB, [facility] ANION GAP 15 7 - 17 mmol/L [facility], [facility] BUN/CREA RATIO 18 [facility], [facility] OSMOLALITY (CALC) 280 278 - 305 mOsm/kg LAB, [facility] ESTIMATED GFR, NON AMER >60 >60 mL/min/1.73sqM LAB, [facility] ESTIMATED GFR, >60 >60 mL/min/1.73sqM LAB, [facility] Performing Organization Address [facility] Phone Number LAB, [facility], [address] [place] [phone] CBC,PLATELETS (06/14/2018 3:22 AM) WBC (WHITE BLOOD COUNT) 8.98 3.99 - 11.19 K/uL LAB, [facility] RBC 3.11 (L) 3.91 - 5.04 M/uL LAB, [facility] HEMOGLOBIN (HGB) 9.3 (L) 11.4 - 15.2 g/dL LAB, [facility] HEMATOCRIT (HCT) 28.9 (L) 34.9 - 44.3 % LAB, [facility] MEAN CELL VOLUME 92.9 79.6 - 97.7 fL LAB, [facility] Mean Cell HGB 29.9 25.9 - 33.9 pg LAB, [facility] MEAN CELL HGB CONCENTRATION 32.2 31.4 - 35.9 g/dL LAB, [facility] RBC DISTRIBUTION 16.7 (H) 10.8 - 14.9 % LAB, [facility] PLATELET COUNT 300 150 - 393 K/uL LAB, [facility] MEAN PLATELET VOLUME 9.9 8.5 - 12.2 fL LAB, [facility] RBC, NUCLEATED 0.0 0.0 - 0.2 /100 WBC LAB, [facility] Performing Organization Address [facility] Phone Number LAB, [facility], [address] [place] [phone] MAGNESIUM (06/14/2018 3:22 AM) MAGNESIUM 1.8 1.6 - 2.6 mg/dL LAB, [facility] Performing Organization Address [facility] Phone Number LAB, [facility], [address] [place] [phone] PT,INR,PTT (06/14/2018 3:22 AM) PT 14.5 (H) 11.9 - 14.2 sec LAB, [facility] INR 1.1 0.9 - 1.1 LAB, [facility] PTT 34.9 (H) 24.0 - 34.3 sec LAB, [facility] Performing Organization Address [facility] Phone Number LAB, [facility], [address] [place] [phone] CHEM 7 (LYTES,BUN,CREA,GLUC) (06/14/2018 3:22 AM) BUN 6 (L) 7 - 22 mg/dL LAB, [facility] SODIUM 136 133 - 143 mmol/L LAB, [facility] POTASSIUM 3.2 (L) 3.5 - 5.0 mmol/L LAB, [facility] CHLORIDE 104 98 - 108 mmol/L LAB, [facility] CARBON DIOXIDE (CO2) 21 (L) 22 - 30 mmol/L LAB, [facility] GLUCOSE 87 70 - 99 mg/dL LAB, [facility] CREATININE SERUM 0.51 0.50 - 1.20 mg/dL LAB, [facility] ANION GAP 14 7 - 17 mmol/L LAB, [facility] BUN/CREA RATIO 12 LAB, [facility] OSMOLALITY (CALC) 281 278 - 305 mOsm/kg LAB, [facility] ESTIMATED GFR, NON AMER >60 >60 mL/min/1.73sqM LAB, [facility] ESTIMATED GFR, >60 >60 mL/min/1.73sqM LAB, [facility] Performing Organization Address [facility] Phone Number LAB, [facility], [address] [place] [address] CBC,PLATELETS (06/13/2018 3:12 AM) WBC (WHITE BLOOD COUNT) 7.59 3.99 - 11.19 K/uL LAB, [facility] RBC 3.10 (L) 3.91 - 5.04 M/uL LAB, [facility] HEMOGLOBIN (HGB) 9.3 (L) 11.4 - 15.2 g/dL LAB, [facility] HEMATOCRIT (HCT) 29.2 (L) 34.9 - 44.3 % LAB, [facility] MEAN CELL VOLUME 94.2 79.6 - 97.7 fL LAB, [facility] Mean Cell HGB 30.0 25.9 - 33.9 pg LAB, [facility] MEAN CELL HGB CONCENTRATION 31.8 31.4 - 35.9 g/dL LAB, [facility] RBC DISTRIBUTION 16.7 (H) 10.8 - 14.9 % LAB, [facility] PLATELET COUNT 267 150 - 393 K/uL LAB, [facility] MEAN PLATELET VOLUME 9.6 8.5 - 12.2 fL LAB, [facility] RBC, NUCLEATED 0.0 0.0 - 0.2 /100 WBC LAB, [facility] Performing Organization Address [facility] Phone Number LAB, [facility], [address] [place] [address] MAGNESIUM (06/13/2018 3:12 AM) MAGNESIUM 2.1 1.6 - 2.6 mg/dL LAB, [facility] Performing Organization Address [facility] Phone Number LAB, [facility], [address] [place] [address] PT,INR,PTT (06/13/2018 3:12 AM) PT 15.5 (H) 11.9 - 14.2 sec LAB, [facility] INR 1.2 (H) 0.9 - 1.1 LAB, [facility] PTT 38.7 (H) 24.0 - 34.3 sec LAB, [facility] Performing Organization Address [facility] Phone Number LAB, [facility], [address] [place] [phone] CHEM 7 (LYTES,BUN,CREA,GLUC) (06/13/2018 3:12 AM) BUN 6 (L) 7 - 22 mg/dL LAB, [facility] SODIUM 137 133 - 143 mmol/L LAB, [facility] POTASSIUM 3.3 (L) 3.5 - 5.0 mmol/L LAB, [facility] CHLORIDE 104 98 - 108 mmol/L LAB, [facility] CARBON DIOXIDE (CO2) 23 22 - 30 mmol/L LAB, [facility] GLUCOSE 98 70 - 99 mg/dL LAB, [facility] CREATININE SERUM 0.47 (L) 0.50 - 1.20 mg/dL LAB, [facility] ANION GAP 13 7 - 17 mmol/L LAB, [facility] BUN/CREA RATIO 13 LAB, [facility] OSMOLALITY (CALC) 283 278 - 305 mOsm/kg LAB, [facility] ESTIMATED GFR, NON AMER >60 >60 mL/min/1.73sqM LAB, [facility] ESTIMATED GFR, >60 >60 mL/min/1.73sqM LAB, [facility] Performing Organization Address [facility] Number LAB, [facility], [address] [place] [phone] CBC,PLATELETS (06/12/2018 3:23 AM) WBC (WHITE BLOOD COUNT) 7.37 3.99 - 11.19 K/uL LAB, [facility] RBC 2.99 (L) 3.91 - 5.04 M/uL LAB, [facility] HEMOGLOBIN (HGB) 9.1 (L) 11.4 - 15.2 g/dL LAB, [facility] HEMATOCRIT (HCT) 28.1 (L) 34.9 - 44.3 % LAB, [facility] MEAN CELL VOLUME 94.0 79.6 - 97.7 fL LAB, [facility] Mean Cell HGB 30.4 25.9 - 33.9 pg LAB, [facility] MEAN CELL HGB CONCENTRATION 32.4 31.4 - 35.9 g/dL LAB, [facility] RBC DISTRIBUTION 16.4 (H) 10.8 - 14.9 % LAB, [facility] PLATELET COUNT 283 150 - 393 K/uL LAB, [facility] MEAN PLATELET VOLUME 10.1 8.5 - 12.2 fL LAB, [facility] RBC, NUCLEATED 0.0 0.0 - 0.2 /100 WBC LAB, [facility] Performing Organization Address [facility] Phone Number LAB, [facility], [address] [place] [phone] MAGNESIUM (06/12/2018 3:23 AM) MAGNESIUM 1.6 1.6 - 2.6 mg/dL LAB, [facility] Performing Organization Address [facility] Phone Number LAB, [facility], [address] [place] [phone] PT,INR,PTT (06/12/2018 3:23 AM) PT 16.1 (H) 11.9 - 14.2 sec LAB, [facility] INR 1.3 (H) 0.9 - 1.1 LAB, [facility] PTT 39.8 (H) 24.0 - 34.3 sec LAB, [facility] Performing Organization Address [facility] Phone Number LAB, [facility], [address] [place] [phone] CHEM 7 (LYTES,BUN,CREA,GLUC) (06/12/2018 3:23 AM) BUN 4 (L) 7 - 22 mg/dL LAB, [facility] SODIUM 134 133 - 143 mmol/L LAB, [facility] POTASSIUM 3.1 (L) 3.5 - 5.0 mmol/L LAB, [facility] CHLORIDE 104 98 - 108 mmol/L LAB, [facility] CARBON DIOXIDE (CO2) 22 22 - 30 mmol/L LAB[facility] GLUCOSE 96 70 - 99 mg/dL LAB, [facility] CREATININE SERUM 0.48 (L) 0.50 - 1.20 mg/dL LAB, [facility] ANION GAP 11 7 - 17 mmol/L LAB, [facility] BUN/CREA RATIO 8 LAB, [facility] OSMOLALITY (CALC) 277 (L) 278 - 305 mOsm/kg LAB, [facility] ESTIMATED GFR, NON AMER >60 >60 mL/min/1.73sqM LAB, [facility] ESTIMATED GFR, >60 >60 mL/min/1.73sqM LAB, [facility] Performing Organization Address [facility] Phone Number LAB, [facility], [address] [place] [phone] CBC,PLATELETS (06/11/2018 3:26 AM) WBC (WHITE BLOOD COUNT) 7.00 3.99 - 11.19 K/uL LAB, [facility] RBC 2.98 (L) 3.91 - 5.04 M/uL LAB, [facility] HEMOGLOBIN (HGB) 8.9 (L) 11.4 - 15.2 g/dL LAB, [facility] HEMATOCRIT (HCT) 27.5 (L) 34.9 - 44.3 % LAB, [facility] MEAN CELL VOLUME 92.3 79.6 - 97.7 fL LAB, [facility] Mean Cell HGB 29.9 25.9 - 33.9 pg LAB, [facility] MEAN CELL HGB CONCENTRATION 32.4 31.4 - 35.9 g/dL LAB, [facility] RBC DISTRIBUTION 16.2 (H) 10.8 - 14.9 % LAB, [facility] PLATELET COUNT 260 150 - 393 K/uL LAB, [facility] MEAN PLATELET VOLUME 10.1 8.5 - 12.2 fL LAB, [facility] RBC, NUCLEATED 0.0 0.0 - 0.2 /100 WBC LAB, [facility] Performing Organization Address [facility] Number LAB, [facility], [address] [place] [phone] MAGNESIUM (06/11/2018 3:26 AM) MAGNESIUM 1.6 1.6 - 2.6 mg/dL LAB, [facility] Performing Organization Address [facility] Phone Number LAB, [facility], [address] [place] [phone] PT,INR,PTT (06/11/2018 3:26 AM) PT 15.9 (H) 11.9 - 14.2 sec LAB, [facility] INR 1.3 (H) 0.9 - 1.1 LAB, [facility] PTT 38.6 (H) 24.0 - 34.3 sec LAB, [facility] Performing Organization Address [facility] Phone Number LAB, [facility], [address] [place] [phone] CHEM 7 (LYTES,BUN,CREA,GLUC) (06/11/2018 3:26 AM) BUN 3 (L) 7 - 22 mg/dL LAB, [facility] SODIUM 133 133 - 143 mmol/L LAB, [facility] POTASSIUM 3.6 3.5 - 5.0 mmol/L LAB, [facility] CHLORIDE 104 98 - 108 mmol/L LAB, [facility] CARBON DIOXIDE (CO2) 23 22 - 30 mmol/L LAB, [facility] GLUCOSE 107 (H) 70 - 99 mg/dL LAB, [facility] CREATININE SERUM 0.52 0.50 - 1.20 mg/dL LAB, [facility] ANION GAP 10 7 - 17 mmol/L LAB, [facility] BUN/CREA RATIO 6 LAB, [facility] OSMOLALITY (CALC) 276 (L) 278 - 305 mOsm/kg LAB, [facility] ESTIMATED GFR, NON AMER >60 >60 mL/min/1.73sqM LAB, [facility] ESTIMATED GFR, >60 >60 mL/min/1.73sqM LAB, [facility] Performing Organization Address City/[place] Phone Number LAB, [facility], [address] [place] [address] VASC DUPLEX VENOUS EXTREMITY UPPER RIGHT (06/10/2018 2:32 PM)CBC,PLATELETS (06/10/2018 2:44 AM) WBC (WHITE BLOOD COUNT) 6.79 3.99 - 11.19 K/uL LAB, [facility] RBC 3.05 (L) 3.91 - 5.04 M/uL LAB, [facility] HEMOGLOBIN (HGB) 9.0 (L) 11.4 - 15.2 g/dL LAB, [facility] HEMATOCRIT (HCT) 27.8 (L) 34.9 - 44.3 % LAB, [facility] MEAN CELL VOLUME 91.1 79.6 - 97.7 fL LAB, [facility] Mean Cell HGB 29.5 25.9 - 33.9 pg LAB, [facility] MEAN CELL HGB CONCENTRATION 32.4 31.4 - 35.9 g/dL LAB, [facility] RBC DISTRIBUTION 16.1 (H) 10.8 - 14.9 % LAB, [facility] PLATELET COUNT 252 150 - 393 K/uL LAB, [facility] MEAN PLATELET VOLUME 10.2 8.5 - 12.2 fL LAB, [facility] RBC, NUCLEATED 0.0 0.0 - 0.2 /100 WBC LAB, [facility] Performing Organization Address [facility] Phone Number LAB, [facility], [address] [place] [phone] MAGNESIUM (06/10/2018 2:44 AM) MAGNESIUM 1.8 1.6 - 2.6 mg/dL LAB, [facility] Performing Organization Address [facility] Phone Number LAB, [facility], [address] [place] [phone] PT,INR,PTT (06/10/2018 2:44 AM) PT 16.8 (H) 11.9 - 14.2 sec LAB, [facility] INR 1.4 (H) 0.9 - 1.1 LAB, [facility] PTT 35.2 (H) 24.0 - 34.3 sec LAB, [facility] Performing Organization Address [facility] Number LAB, [facility], [address] [place] [phone] CHEM 7 (LYTES,BUN,CREA,GLUC) (06/10/2018 2:44 AM) BUN 2 (L) 7 - 22 mg/dL LAB, [facility] SODIUM 140Comment: Results 133 - 143 mmol/L LAB, [facility] inconsistent with the patient's previous results POTASSIUM 3.5 3.5 - 5.0 mmol/L LAB, [facility] CHLORIDE 110 (H)Comment: Results 98 - 108 mmol/L LAB, [facility] inconsistent with the patient's previous results CARBON DIOXIDE (CO2) 22 22 - 30 mmol/L LAB, [facility] GLUCOSE 115 (H) 70 - 99 mg/dL LAB, [facility] CREATININE SERUM 0.62 0.50 - 1.20 mg/dL LAB, [facility] ANION GAP 12 7 - 17 mmol/L LAB, [facility] BUN/CREA RATIO 3 LAB, [facility] OSMOLALITY (CALC) 289 278 - 305 mOsm/kg LAB, [facility] ESTIMATED GFR, NON >60 >60 mL/min/1.73sqM LAB, [facility] AMER ESTIMATED GFR, >60 >60 mL/min/1.73sqM LAB, [facility] Performing Organization Address [facility] Phone Number LAB, [facility], [address] [place] [phone] ACTH (06/09/2018 3:18 PM) ACTH <5.0 (L) 9.0 - 50.0 pg/mL LAB, [facility] Performing Organization Address [facility] Phone Number LAB, [facility], [address] [place] [phone] CORTISOL (06/09/2018 6:14 AM) CORTISOL 10.81 3.09 - 22.40 mcg/dL LAB, [facility] Performing Organization Address [facility] Phone Number LAB, [facility], [address] [place] [phone] PHOSPHATE, INORGANIC (06/09/2018 4:02 AM) PHOSPHATE, INORGANIC 3.1 2.2 - 4.6 mg/dL LAB, [facility] Performing Organization Address [facility] Phone Number LAB, [facility], [address] [place] [phone] CORTISOL (06/09/2018 4:02 AM) CORTISOL 1.54 (L) 3.09 - 22.40 mcg/dL LAB, [facility] Performing Organization [facility] Phone Number LAB, [facility], [address] [place] [phone] CBC,PLATELETS (06/09/2018 4:02 AM) WBC (WHITE BLOOD COUNT) 6.26 3.99 - 11.19 K/uL LAB, [facility] RBC 3.11 (L) 3.91 - 5.04 M/uL LAB, [facility] HEMOGLOBIN (HGB) 9.3 (L) 11.4 - 15.2 g/dL LAB, [facility] HEMATOCRIT (HCT) 29.0 (L) 34.9 - 44.3 % LAB, [facility] MEAN CELL VOLUME 93.2 79.6 - 97.7 fL LAB, [facility] Mean Cell HGB 29.9 25.9 - 33.9 pg LAB, [facility] MEAN CELL HGB CONCENTRATION 32.1 31.4 - 35.9 g/dL LAB, [facility] RBC DISTRIBUTION 16.2 (H) 10.8 - 14.9 % LAB, [facility] PLATELET COUNT 241 150 - 393 K/uL LAB, [facility] MEAN PLATELET VOLUME 9.9 8.5 - 12.2 fL LAB, [facility] RBC, NUCLEATED 0.0 0.0 - 0.2 /100 WBC LAB, [facility] Performing Organization Address [facility] Phone Number LAB, [facility], [address] [place] [address] MAGNESIUM (06/09/2018 4:02 AM) MAGNESIUM 1.8 1.6 - 2.6 mg/dL LAB, [facility] Performing Organization Address [facility] Phone Number LAB, [facility], [address] [place] [address] PT,INR,PTT (06/09/2018 4:02 AM) PT 17.3 (H) 11.9 - 14.2 sec LAB, [facility] INR 1.4 (H) 0.9 - 1.1 LAB, [facility] PTT 120.8 (HH) 24.0 - 34.3 sec LAB, [facility] Performing Organization Address [facility] Phone Number LAB, [facility], [address] [place] [phone] CHEM 7 (LYTES,BUN,CREA,GLUC) (06/09/2018 4:02 AM) BUN 3 (L) 7 - 22 mg/dL LAB, [facility] SODIUM 131 (L) 133 - 143 mmol/L LAB, [facility] POTASSIUM 3.1 (L) 3.5 - 5.0 mmol/L LAB, [facility] CHLORIDE 100 98 - 108 mmol/L LAB, [facility] CARBON DIOXIDE (CO2) 23 22 - 30 mmol/L LAB, [facility] GLUCOSE 104 (H) 70 - 99 mg/dL LAB, [facility] CREATININE SERUM 0.57 0.50 - 1.20 mg/dL LAB, [facility] ANION GAP 11 7 - 17 mmol/L LAB, [facility] BUN/CREA RATIO 5 LAB, [facility] OSMOLALITY (CALC) 271 (L) 278 - 305 mOsm/kg LAB, [facility] ESTIMATED GFR, NON AMER >60 >60 mL/min/1.73sqM LAB, [facility] ESTIMATED GFR, >60 >60 mL/min/1.73sqM LAB, [facility] Performing Organization Address [facility] Number LAB, [facility], [address] [place] [phone] CORTISOL (06/08/2018 2:56 AM) CORTISOL 2.16 (L) 3.09 - 22.40 mcg/dL LAB, [facility] Performing Organization Address [facility] Number LAB, [facility], [address] [place] [phone] TSH (06/08/2018 2:56 AM) TSH, HIGH-SENSITIVITY 2.305 0.550 - 4.780 uIU/mL LAB, [facility] Performing Organization Address [facility] LAB, [facility], [address] [place] [phone] PROCALCITONIN (06/08/2018 2:56 AM) PROCALCITONIN 0.13 0.00 - 0.50 ng/mL [facility], [facility] Comment: ? In adult, critically ill ICU patients, studies have demonstrated that values <0.5 ng/mL represent a low risk of severe systemic infection/sepsis. In adult, critically ill ICU patients, studies have demonstrated that values >2.0 ng/mL represent a high risk of severe systemic infection/sepsis. Results <0.5 ng/mL do not exclude infection, as localized infections (without systemic signs) and early systemic infections (<6 hours) can be associated with such low levels.? Several non-infec tious clinical conditions such as leroy, trauma, surgery and cardiogenic shock have been associated with elevated procalcitonin levels. All procalcitonin results should be interpreted in association with the patient's clinical condition and all laboratory findings.?The cut off levels noted above for this assay should not be applied t o , emergency department or immunocompromised patients. Performing Organization Address [facility] Number LAB, [facility], [address] [place] [phone] CBC,PLATELETS (06/08/2018 2:56 AM) WBC (WHITE BLOOD COUNT) 7.05 3.99 - 11.19 K/uL LAB, [facility] RBC 3.21 (L) 3.91 - 5.04 M/uL LAB, [facility] HEMOGLOBIN (HGB) 9.7 (L) 11.4 - 15.2 g/dL LAB, [facility] HEMATOCRIT (HCT) 29.7 (L) 34.9 - 44.3 % LAB, [facility] MEAN CELL VOLUME 92.5 79.6 - 97.7 fL LAB, [facility] Mean Cell HGB 30.2 25.9 - 33.9 pg LAB, [facility] MEAN CELL HGB CONCENTRATION 32.7 31.4 - 35.9 g/dL LAB, [facility] RBC DISTRIBUTION 16.2 (H) 10.8 - 14.9 % LAB, [facility] PLATELET COUNT 236 150 - 393 K/uL LAB, [facility] MEAN PLATELET VOLUME 10.0 8.5 - 12.2 fL LAB, [facility] RBC, NUCLEATED 0.0 0.0 - 0.2 /100 WBC LAB, [facility] Performing Organization Address [facility] Phone Number LAB, [facility], [address] [place] [phone] MAGNESIUM (06/08/2018 2:56 AM) MAGNESIUM 1.8 1.6 - 2.6 mg/dL LAB, [facility] Performing Organization Address [facility] Phone Number LAB, [facility], [address] [place] [phone] PT,INR,PTT (06/08/2018 2:56 AM) PT 16.3 (H) 11.9 - 14.2 sec LAB, [facility] INR 1.3 (H) 0.9 - 1.1 LAB, [facility] PTT 42.4 (H) 24.0 - 34.3 sec LAB, [facility] Performing Organization Address [facility] Phone Number LAB, [facility], [address] [place] [phone] CHEM 7 (LYTES,BUN,CREA,GLUC) (06/08/2018 2:56 AM) BUN 3 (L) 7 - 22 mg/dL LAB, [facility] SODIUM 132 (L) 133 - 143 mmol/L LAB, [facility] POTASSIUM 3.3 (L) 3.5 - 5.0 mmol/L LAB, [facility] CHLORIDE 101 98 - 108 mmol/L LAB, [facility] CARBON DIOXIDE (CO2) 23 22 - 30 mmol/L LAB, [facility] GLUCOSE 108 (H) 70 - 99 mg/dL LAB, [facility] CREATININE SERUM 0.62 0.50 - 1.20 mg/dL LAB, [facility] ANION GAP 11 7 - 17 mmol/L LAB, [facility] BUN/CREA RATIO 5 LAB, [facility] OSMOLALITY (CALC) 274 (L) 278 - 305 mOsm/kg LAB, [facility] ESTIMATED GFR, NON AMER >60 >60 mL/min/1.73sqM LAB, [facility] ESTIMATED GFR, >60 >60 mL/min/1.73sqM LAB, [facility] Performing Organization Address [facility] Phone Number [facility], [facility], [address] [place] [address] OSMOLALITY, URINE (06/07/2018 8:40 AM) OSMOLALITY, URINE 283 (L) 300 - 900 mOsm/kg LAB, [facility] Performing Organization Address [facility] Phone Number [facility], [facility], [address] [place] [address] LYTES (NA, K, CL) - URINE - RANDOM (06/07/2018 8:40 AM) SODIUM, URINE RANDOM 62 mmol/L LAB, [facility] Comment: ? The reference range has not been established for random urine specimens. The test result should be integrated into the clinical context for interpretation. POTASSIUM URINE RANDOM 32.2 mmol/L LAB, [facility] Comment: ? The reference range has not been established for random urine specimens. The test result should be integrated into the clinical context for interpretation. CHLORIDE, URINE RANDOM 72 mmol/L LAB, [facility] Comment: ? The reference range has not been established for random urine specimens. The test result should be integrated into the clinical context for interpretation. Performing Organization Address [facility] Phone Number LAB, [facility], [address] [place] [address] UA, TOTAL W/REFLEX TO CULTURE (06/07/2018 8:40 AM) APPEARANCE, URINE Clear Clear LAB, [facility] SPECIFIC GRAVITY, URINE 1.016 1.001 - 1.035 LAB, [facility] GLUCOSE, URINE Negative Negative mg/dL LAB, [facility] KETONES, URINE Trace (A) Negative LAB, [facility] BLOOD, URINE Negative Negative LAB, [facility] PH URINE 6.5 5.0 - 7.0 LAB, [facility] PROTEIN, URINE Trace (A) Negative mg/dL LAB, [facility] NITRITES, URINE Negative Negative LAB, [facility] LEUKOCYTE ESTERASE, URINE Negative Negative [facility], [facility] COLOR, URINE Yellow Yellow LAB, [facility] UROBILINOGEN, URINE 0.2 <2.0 EU/dL LAB, [facility] WBC, URINE 0-5 0 - 5 /HPF LAB, [facility] RBC, URINE 0-2 0 - 2 /HPF LAB, [facility] BACTERIA, URINE Absent Absent LAB, [facility] COMMENT, URINE None LAB, [facility] SQUAMOUS EPITHELIAL CELLS, URINE 3+ /HPF LAB, [facility] CRYSTALS, URINE CYSTINE Negative LAB, [facility] Specimen URINE - CLEAN CATCH Performing Organization Address [facility] Phone Number LAB, [facility], [address] [place] [address] BLOOD CULTURE, PERIPHERAL 2ND SITE (06/07/2018 7:37 AM) MICRO ACCESSION NUMBER [id number] LAB, [facility] SOURCE BLOOD, PERIPHERAL: Left Hand LAB, MICRO RESULT-CULT NO GROWTH DAY 5 OF 5 LAB, MI[facility] REPORT STATUS 06/12/2018 FINAL LAB, [facility] Specimen BLOOD CULTURE - PERIPHERAL Performing Organization Address [facility] Phone Number LAB, MICRO LAB, MICRO [facility], [address] [place] [phone], Blood Cultures processed at:, [facility], [address], [place] [address] XR CHEST AP PORTABLE (06/07/2018 7:37 AM) Impressions Performed At IMPRESSION: RADIOLOGY Decreased left pleural effusion with improved left basilar atelectasis. Narrative Performed At EXAM: XR CHEST AP PORTABLE, 06/07/2018 07:37 AM RADIOLOGY COMPARISON: May 31, 2018 CLINICAL INDICATIONS:?Ongiong fevers, eval for pneumonia RELEVANT CLINICAL HISTORY: FINDINGS: (Adequate technique) Life Support Devices: None Chest Wall: Stable osseous structures Leeanna: Normal Mediastinum: Normal Pleural Spaces: Left pleural effusion has decreased. No definite pneumothorax. Lungs:?Improved left basilar atelectasis Cardiac Silhouette: Stable heart size Thoracic Aorta:?Normal Pulmonary Vessels:?Normal, without PVH Procedure Note User, Interfaces - 06/07/2018 8:16 AM EST EXAM: XR CHEST AP PORTABLE, 06/07/2018 07:37 AM COMPARISON: May 31, 2018 CLINICAL INDICATIONS: Ongiong fevers, eval for pneumonia RELEVANT CLINICAL HISTORY: FINDINGS: (Adequate technique) Life Support Devices: None Chest Wall: Stable osseous structures Leeanna: Normal Mediastinum: Normal Pleural Spaces: Left pleural effusion has decreased. No definite pneumothorax. Lungs: Improved left basilar atelectasis Cardiac Silhouette: Stable heart size Thoracic Aorta: Normal Pulmonary Vessels: Normal, without PVH IMPRESSION IMPRESSION: Decreased left pleural effusion with improved left basilar atelectasis. Performing Organization Address [facility] Phone Number RADIOLOGY BLOOD CULTURE, PERIPHERAL 1ST SITE (06/07/2018 7:30 AM) MICRO ACCESSION NUMBER [id number] LAB, MICRO SOURCE BLOOD, PERIPHERAL: Right Hand LAB, MICRO RESULT-CULT NO GROWTH DAY 5 OF 5 LAB, MICRO REPORT STATUS 06/12/2018 FINAL LAB, MICRO Specimen BLOOD CULTURE - PERIPHERAL Performing Organization Address [facility] Phone Number LAB, MICRO LAB, MICRO [facility], [address] [place] [phone], Blood Cultures processed at:, [facility], [address], [place] [address] OSMOLALITY (06/07/2018 3:31 AM) OSMOLALITY 268 (L) 278 - 305 mOsm/kg LAB, [facility] Performing Organization Address [facility] Phone Number LAB, [facility], [address] [place] [address] CBC,PLATELETS (06/07/2018 3:31 AM) WBC (WHITE BLOOD COUNT) 8.76 3.99 - 11.19 K/uL LAB, [facility] RBC 3.29 (L) 3.91 - 5.04 M/uL LAB, [facility] HEMOGLOBIN (HGB) 9.7 (L) 11.4 - 15.2 g/dL LAB, [facility] HEMATOCRIT (HCT) 30.2 (L) 34.9 - 44.3 % LAB, [facility] MEAN CELL VOLUME 91.8 79.6 - 97.7 fL LAB, [facility] Mean Cell HGB 29.5 25.9 - 33.9 pg LAB, [facility] MEAN CELL HGB CONCENTRATION 32.1 31.4 - 35.9 g/dL LAB, [facility] RBC DISTRIBUTION 16.8 (H) 10.8 - 14.9 % LAB, [facility] PLATELET COUNT 231 150 - 393 K/uL LAB, [facility] MEAN PLATELET VOLUME 10.2 8.5 - 12.2 fL LAB, [facility] RBC, NUCLEATED 0.0 0.0 - 0.2 /100 WBC LAB, [facility] Performing Organization Address [facility] Phone Number LAB, [facility], [address] [place] [address] MAGNESIUM (06/07/2018 3:31 AM) MAGNESIUM 1.8 1.6 - 2.6 mg/dL LAB, [facility] Performing Organization Address [facility] Phone Number LAB, [facility], [address] [place] [address] PT,INR,PTT (06/07/2018 3:31 AM) PT 16.1 (H) 11.9 - 14.2 sec LAB, [facility] INR 1.3 (H) 0.9 - 1.1 [facility], [facility] PTT 37.4 (H) 24.0 - 34.3 sec LAB, [facility] Performing Organization Address [facility] Phone Number LAB, [facility], [address] [place] [id number] CHEM 7 (LYTES,BUN,CREA,GLUC) (06/07/2018 3:31 AM) BUN 4 (L) 7 - 22 mg/dL LAB, [facility] SODIUM 130 (L) 133 - 143 mmol/L LAB, [facility] POTASSIUM 3.6 3.5 - 5.0 mmol/L LAB, [facility] CHLORIDE 100 98 - 108 mmol/L LAB, [facility] CARBON DIOXIDE (CO2) 23 22 - 30 mmol/L LAB, [facility] GLUCOSE 83 70 - 99 mg/dL LAB, [facility] CREATININE SERUM 0.61 0.50 - 1.20 mg/dL LAB, [facility] ANION GAP 11 7 - 17 mmol/L LAB, [facility] BUN/CREA RATIO 7 LAB, [facility] OSMOLALITY (CALC) 269 (L) 278 - 305 mOsm/kg LAB, [facility] ESTIMATED GFR, NON AMER >60 >60 mL/min/1.73sqM LAB, [facility] ESTIMATED GFR, >60 >60 mL/min/1.73sqM LAB, [facility] Performing Organization Address City/State/Zipcode Phone Number LAB, [facility], [address] [place] [address] ABDOMEN/PELVIS WITH CONTRAST (06/06/2018 3:08 PM) Impressions Performed At IMPRESSION: RADIOLOGY 1.?High riding cecum with some wall thickening along the ileocecal junction along the medial wall of the cecum. Previously seen thickening of the wall and air pockets in the cecal wall appear to have resolved. No free intraperitoneal air to suggest colonic perforation. Some wall thickening along the ileocecal junction is nonspecific. 2.?Colonic diverticulosis. Nonobstructive bowel gas pattern with no gross free air. 3.?Hepatic steatosis. Stable enhancing focus in the segment 4 of the liver likely a shunt or hemangioma 4.?Postcholecystectomy status. 5.?Stable pancreatic calcifications with heterogeneity and fatty replacement of the pancreatic parenchyma likely related to prior pancreatitis. 6.?Slightly enlarged uterus for the patient's age. Small enhancing focus in the endometrium is indeterminate. Pelvic floor descent with mild cystorectocele. 7.?Stable hiatal hernia with a large duodenal diverticulum Hepatic trauma grade:? N/A Spleen trauma grade:?N/A Kidney trauma grade: N/A Narrative Performed At EXAM: CT ABDOMEN/PELVIS WITH CONTRAST, 06/06/2018 15:08 PM RADIOLOGY COMPARISON: CT abdomen and pelvis study dated 05/29/2018 CLINICAL INDICATIONS: Abscess, abdomen, soft tissue; Hx of micro-perf w recurrent T >100 TECHNIQUE: Helical axial images of the abdomen and pelvis were performed from the lung bases through the ischial tuberosities following the administration of oral and intravenous contrast. Coronal 2 mm reconstructions were also made. CONTRAST: iohexol (OMNIPAQUE) 350 MG/ML injection 1-171 mL; Route of Administration: Intravenous; Dose: 60 mL. iohexol (OMNIPAQUE) 300 MG/ML vial 50 mL; Route of Administration: Oral; Dose: 50 mL. FINDINGS: Lung Bases:? Visualized lung bases reveal a small left pleural effusion with underlying atelectasis. Atelectatic changes are also noted in the right lower lobe. No pericardial effusion. Coronary calcifications are seen with atherosclerotic calcifications in the distal thoracic aorta. 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 ABDOMEN Liver: Liver is normal in size and morphology. There is diffuse hepatic steatosis small subcapsular enhancing focus in the segment 4 of the liver is stable and could represent a hemangioma or a shunt. No new focal liver lesions seen on this exam. Portal vein is patent. No intrahepatic biliary ductal dilatation. No perihepatic fluid or collection is seen Biliary/Gallbladder: Gallbladder is surgically absent. Stable mild prominence of the common bile duct without definite CBD stones. Spleen: Spleen is normal in size and CT density. No suspicious focal splenic lesions. Splenic vascular pedicle is patent with no perisplenic fluid or collections. Pancreas: Pancreas shows no discrete focal lesions or ductal dilatation. Heterogeneity and fatty replacement in the pancreatic parenchyma with multiple punctate foci of calcifications which could be related to prior pancreatitis. There are no peripancreatic inflammatory changes or fluid collections. Kidneys: Kidneys show symmetric enhancement with no calculus or hydronephrosis. There are no focal lesions noted within the kidneys. No perinephric or retroperitoneal fluid collections. The ureters are nondilated Adrenals: Adrenal glands are unremarkable. Retroperitoneal/Vasculature: Abdominal aorta and its branches are patent. Mesenteric vasculature is also patent.. Atherosclerotic wall thickening and calcifications in the abdominal aorta. Small periaortic and periportal lymph nodes are seen which are nonspecific and not enlarged by size criteria. There are no discrete enlarged abdominal or retroperitoneal lymph nodes. No interval free fluid is noted within the abdomen or pelvis. There are no loculated collections or abscess. Iliopsoas muscles are grossly symmetric. Gastrointestinal/Mesentery: Stomach is partly distended with oral contrast and shows some apparent wall thickening in the antropyloric region. Wall thickening along the distal thoracic esophagus with a small hiatal hernia versus epiphrenic diverticulum. There is a prominent duodenal diverticulum along the second part of the duodenum stable since the prior comparison study. Small bowel loops are nonobstructed. No mesenteric mass lesions or acute inflammation. No large mesenteric lymph nodes Cecum is high riding in the right upper quadrant with subtle wall thickening along the cecal pole adjacent to the ileocecal junction is nonspecific. Previously seen air pockets in the cecal wall appear to have resolved. Subtle wall thickening is seen in the terminal ileum. No pneumatosis in the colonic wall. There is colonic diverticulosis without evidence to suggest acute diverticulitis. Some thickening along the inferior renal canal and the anal verge. Appendix is unremarkable PELVIS Bladder: The bladder is distended with subtle bladder wall thickening. No bladder masses or stones. Distal ureters are nondilated. Genital:? Uterus shows heterogeneous enhancement and appears slightly enlarged for the patient's age. Small enhancing focus along the endometrium on image 101 is indeterminate measuring up to 9 mm in size. Low-attenuation along the endometrium could be related to hyperplasia. No interval adnexal mass lesions. Tubal ligation clips are seen in situ. There is sigmoid diverticulosis. Pelvic floor descent is seen with suspected cystorectocele. Vascular calcifications are seen in the pelvis. No discrete enlarged pelvic or inguinal nodes by size criteria Soft tissues of the abdominal wall reveal some postsurgical scarring in the ventral wall Bony Structures:? Visualized bony structures are consistent with the patient's age. There are no suspicious lytic or sclerotic lesions in the visualized skeleton. Mild generalized osteopenia Procedure Note User, Interfaces - 06/06/2018 3:34 PM EST EXAM: CT ABDOMEN/PELVIS WITH CONTRAST, 06/06/2018 15:08 PM COMPARISON: CT abdomen and pelvis study dated 05/29/2018 CLINICAL INDICATIONS: Abscess, abdomen, soft tissue; Hx of micro-perf w recurrent T >100 TECHNIQUE: Helical axial images of the abdomen and pelvis were performed from the lung bases through the ischial tuberosities following the administration of oral and intravenous contrast. Coronal 2 mm reconstructions were also made. CONTRAST: iohexol (OMNIPAQUE) 350 MG/ML injection 1-171 mL; Route of Administration: Intravenous; Dose: 60 mL. iohexol (OMNIPAQUE) 300 MG/ML vial 50 mL; Route of Administration: Oral; Dose: 50 mL. FINDINGS: Lung Bases: Visualized lung bases reveal a small left pleural effusion with underlying atelectasis. Atelectatic changes are also noted in the right lower lobe. No pericardial effusion. Coronary calcifications are seen with atherosclerotic calcifications in the distal thoracic aorta. 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 ABDOMEN Liver: Liver is normal in size and morphology. There is diffuse hepatic steatosis small subcapsular enhancing focus in the segment 4 of the liver is stable and could represent a hemangioma or a shunt. No new focal liver lesions seen on this exam. Portal vein is patent. No intrahepatic biliary ductal dilatation. No perihepatic fluid or collection is seen Biliary/Gallbladder: Gallbladder is surgically absent. Stable mild prominence of the common bile duct without definite CBD stones. Spleen: Spleen is normal in size and CT density. No suspicious focal splenic lesions. Splenic vascular pedicle is patent with no perisplenic fluid or collections. Pancreas: Pancreas shows no discrete focal lesions or ductal dilatation. Heterogeneity and fatty replacement in the pancreatic parenchyma with multiple punctate foci of calcifications which could be related to prior pancreatitis. There are no peripancreatic inflammatory changes or fluid collections. Kidneys: Kidneys show symmetric enhancement with no calculus or hydronephrosis. There are no focal lesions noted within the kidneys. No perinephric or retroperitoneal fluid collections. The ureters are nondilated Adrenals: Adrenal glands are unremarkable. Retroperitoneal/Vasculature: Abdominal aorta and its branches are patent. Mesenteric vasculature is also patent.. Atherosclerotic wall thickening and calcifications in the abdominal aorta. Small periaortic and periportal lymph nodes are seen which are nonspecific and not enlarged by size criteria. There are no discrete enlarged abdominal or retroperitoneal lymph nodes. No interval free fluid is noted within the abdomen or pelvis. There are no loculated collections or abscess. Iliopsoas muscles are grossly symmetric. Gastrointestinal/Mesentery: Stomach is partly distended with oral contrast and shows some apparent wall thickening in the antropyloric region. Wall thickening along the distal thoracic esophagus with a small hiatal hernia versus epiphrenic diverticulum. There is a prominent duodenal diverticulum along the second part of the duodenum stable since the prior comparison study. Small bowel loops are nonobstructed. No mesenteric mass lesions or acute inflammation. No large mesenteric lymph nodes Cecum is high riding in the right upper quadrant with subtle wall thickening along the cecal pole adjacent to the ileocecal junction is nonspecific. Previously seen air pockets in the cecal wall appear to have resolved. Subtle wall thickening is seen in the terminal ileum. No pneumatosis in the colonic wall. There is colonic diverticulosis without evidence to suggest acute diverticulitis. Some thickening along the inferior renal canal and the anal verge. Appendix is unremarkable PELVIS Bladder: The bladder is distended with subtle bladder wall thickening. No bladder masses or stones. Distal ureters are nondilated. Genital: Uterus shows heterogeneous enhancement and appears slightly enlarged for the patient's age. Small enhancing focus along the endometrium on image 101 is indeterminate measuring up to 9 mm in size. Low-attenuation along the endometrium could be related to hyperplasia. No interval adnexal mass lesions. Tubal ligation clips are seen in situ. There is sigmoid diverticulosis. Pelvic floor descent is seen with suspected cystorectocele. Vascular calcifications are seen in the pelvis. No discrete enlarged pelvic or inguinal nodes by size criteria Soft tissues of the abdominal wall reveal some postsurgical scarring in the ventral wall Bony Structures: Visualized bony structures are consistent with the patient's age. There are no suspicious lytic or sclerotic lesions in the visualized skeleton. Mild generalized osteopenia IMPRESSION IMPRESSION: 1. High riding cecum with some wall thickening along the ileocecal junction along the medial wall of the cecum. Previously seen thickening of the wall and air pockets in the cecal wall appear to have resolved. No free intraperitoneal air to suggest colonic perforation. Some wall thickening along the ileocecal junction is nonspecific. 2. Colonic diverticulosis. Nonobstructive bowel gas pattern with no gross free air. 3. Hepatic steatosis. Stable enhancing focus in the segment 4 of the liver likely a shunt or hemangioma 4. Postcholecystectomy status. 5. Stable pancreatic calcifications with heterogeneity and fatty replacement of the pancreatic parenchyma likely related to prior pancreatitis. 6. Slightly enlarged uterus for the patient's age. Small enhancing focus in the endometrium is indeterminate. Pelvic floor descent with mild cystorectocele. 7. Stable hiatal hernia with a large duodenal diverticulum Hepatic trauma grade: N/A Spleen trauma grade: N/A Kidney trauma grade: N/A Performing Organization Address City/State/Zipcode Phone Number RADIOLOGY CBC,PLATELETS (06/06/2018 3:11 AM) WBC (WHITE BLOOD COUNT) 7.05 3.99 - 11.19 K/uL LAB, [facility] RBC 3.23 (L) 3.91 - 5.04 M/uL LAB, [facility] HEMOGLOBIN (HGB) 9.9 (L) 11.4 - 15.2 g/dL LAB, [facility] HEMATOCRIT (HCT) 30.3 (L) 34.9 - 44.3 % LAB, [facility] MEAN CELL VOLUME 93.8 79.6 - 97.7 fL LAB, [facility] Mean Cell HGB 30.7 25.9 - 33.9 pg LAB, [facility] MEAN CELL HGB CONCENTRATION 32.7 31.4 - 35.9 g/dL LAB, [facility] RBC DISTRIBUTION 16.8 (H) 10.8 - 14.9 % LAB, [facility] PLATELET COUNT 205 150 - 393 K/uL LAB, [facility] MEAN PLATELET VOLUME 10.2 8.5 - 12.2 fL LAB, [facility] RBC, NUCLEATED 0.0 0.0 - 0.2 /100 WBC LAB, [facility] Performing Organization Address [facility] Phone Number LAB, [facility], [address] [place] [address] MAGNESIUM (06/06/2018 3:11 AM) MAGNESIUM 2.0 1.6 - 2.6 mg/dL LAB, [facility] Performing Organization Address [facility] Phone Number LAB, [facility], [address] [place] [address] PT,INR,PTT (06/06/2018 3:11 AM) PT 16.2 (H) 11.9 - 14.2 sec LAB, [facility] INR 1.3 (H) 0.9 - 1.1 LAB, [facility] PTT 43.9 (H) 24.0 - 34.3 sec LAB, [facility] Performing Organization Address [facility] Phone Number LAB, [facility], [address] [place] [address] CHEM 7 (LYTES,BUN,CREA,GLUC) (06/06/2018 3:11 AM) BUN 4 (L) 7 - 22 mg/dL LAB, [facility] SODIUM 131 (L) 133 - 143 mmol/L LAB, [facility] POTASSIUM 3.7 3.5 - 5.0 mmol/L LAB, [facility] CHLORIDE 102 98 - 108 mmol/L LAB, [facility] CARBON DIOXIDE (CO2) 22 22 - 30 mmol/L LAB, [facility] GLUCOSE 97 70 - 99 mg/dL LAB, [facility] CREATININE SERUM 0.55 0.50 - 1.20 mg/dL LAB, [facility] ANION GAP 11 7 - 17 mmol/L LAB, [facility] BUN/CREA RATIO 7 LAB, [facility] OSMOLALITY (CALC) 272 (L) 278 - 305 mOsm/kg LAB, [facility] ESTIMATED GFR, NON AMER >60 >60 mL/min/1.73sqM LAB, [facility] ESTIMATED GFR, >60 >60 mL/min/1.73sqM LAB, [facility] Performing Organization Address City/[facility] Phone Number LAB, [facility], [address] [place] [address] PHOSPHATE, INORGANIC (06/05/2018 3:15 AM) PHOSPHATE, INORGANIC 2.2 2.2 - 4.6 mg/dL LAB, [facility] Performing Organization Address [facility] Phone Number LAB, [facility], [address] [place] [address] CALCIUM (06/05/2018 3:15 AM) CALCIUM 7.9 (L) 8.6 - 10.5 mg/dL LAB, [facility] Performing Organization Address [facility] Phone Number LAB, [facility], [address] [place] [address] CBC,PLATELETS (06/05/2018 3:15 AM) WBC (WHITE BLOOD COUNT) 6.59 3.99 - 11.19 K/uL LAB, [facility] RBC 3.24 (L) 3.91 - 5.04 M/uL LAB, [facility] HEMOGLOBIN (HGB) 9.8 (L) 11.4 - 15.2 g/dL LAB, [facility] HEMATOCRIT (HCT) 30.3 (L) 34.9 - 44.3 % LAB, [facility] MEAN CELL VOLUME 93.5 79.6 - 97.7 fL LAB, [facility] Mean Cell HGB 30.2 25.9 - 33.9 pg LAB, [facility] MEAN CELL HGB CONCENTRATION 32.3 31.4 - 35.9 g/dL LAB, [facility] RBC DISTRIBUTION 17.0 (H) 10.8 - 14.9 % LAB, [facility] PLATELET COUNT 177 150 - 393 K/uL LAB, [facility] MEAN PLATELET VOLUME 10.0 8.5 - 12.2 fL LAB, [facility] RBC, NUCLEATED 0.0 0.0 - 0.2 /100 WBC LAB, [facility] Performing Organization Address [facility] Phone Number LAB, [facility], [address] [place] [address] MAGNESIUM (06/05/2018 3:15 AM) MAGNESIUM 1.6 1.6 - 2.6 mg/dL LAB, [facility] Performing Organization Address [facility] Phone Number LAB, [facility], [address] [place] [id number] PT,INR,PTT (06/05/2018 3:15 AM) PT 17.5 (H) 11.9 - 14.2 sec LAB, [facility] INR 1.4 (H) 0.9 - 1.1 [facility], [facility] PTT 55.7 (H) 24.0 - 34.3 sec LAB, [facility] Performing Organization Address [facility] Phone Number LAB, [facility], [address] [place] [id number] CHEM 7 (LYTES,BUN,CREA,GLUC) (06/05/2018 3:15 AM) BUN 4 (L) 7 - 22 mg/dL LAB, [facility] SODIUM 134 133 - 143 mmol/L LAB, [facility] POTASSIUM 3.2 (L) 3.5 - 5.0 mmol/L LAB, [facility] CHLORIDE 102 98 - 108 mmol/L LAB, [facility] CARBON DIOXIDE (CO2) 24 22 - 30 mmol/L [facility], [facility] GLUCOSE 95 70 - 99 mg/dL LAB, [facility] CREATININE SERUM 0.54 0.50 - 1.20 mg/dL LAB, [facility] ANION GAP 11 7 - 17 mmol/L [facility], [facility] BUN/CREA RATIO 7 LAB, [facility] OSMOLALITY (CALC) 277 (L) 278 - 305 mOsm/kg LAB, [facility] ESTIMATED GFR, NON AMER >60 >60 mL/min/1.73sqM LAB, [facility] ESTIMATED GFR, >60 >60 mL/min/1.73sqM LAB, [facility] Performing Organization Address [facility] Phone Number [facility], [facility], [address] [place] [address] ECG (06/04/2018 10:17 AM) Performing [facility] Phone Number RADIOLOGY CBC,PLATELETS (06/04/2018 3:02 AM) WBC (WHITE BLOOD COUNT) 7.94 3.99 - 11.19 K/uL LAB, [facility] RBC 3.53 (L) 3.91 - 5.04 M/uL LAB, [facility] HEMOGLOBIN (HGB) 10.9 (L) 11.4 - 15.2 g/dL LAB, [facility] HEMATOCRIT (HCT) 33.5 (L) 34.9 - 44.3 % LAB, [facility] MEAN CELL VOLUME 94.9 79.6 - 97.7 fL LAB, [facility] Mean Cell HGB 30.9 25.9 - 33.9 pg LAB, [facility] MEAN CELL HGB CONCENTRATION 32.5 31.4 - 35.9 g/dL LAB, [facility] RBC DISTRIBUTION 17.2 (H) 10.8 - 14.9 % LAB, [facility] PLATELET COUNT 208 150 - 393 K/uL LAB, [facility] MEAN PLATELET VOLUME 10.2 8.5 - 12.2 fL LAB, [facility] RBC, NUCLEATED 0.0 0.0 - 0.2 /100 WBC LAB, [facility] Performing [facility] Phone Number [facility], [facility], [address] [place] [address] MAGNESIUM (06/04/2018 3:02 AM) MAGNESIUM 1.8 1.6 - 2.6 mg/dL LAB, [facility] Performing [facility] Phone Number LAB, [facility], [address] [place] [address] PT,INR,PTT (06/04/2018 3:02 AM) PT 17.5 (H) 11.9 - 14.2 sec LAB, [facility] INR 1.4 (H) 0.9 - 1.1 [facility], [facility] PTT 37.3 (H)Comment: Results inconsistent with the 24.0 - 34.3 sec LAB, [facility] patient's previous results Performing [facility]/State/[facility] Phone Number LAB, [facility], [address] [place] [address] CHEM 7 (LYTES,BUN,CREA,GLUC) (06/04/2018 3:02 AM) BUN 4 (L) 7 - 22 mg/dL [facility], [facility] SODIUM 132 (L) 133 - 143 mmol/L LAB, [facility] POTASSIUM 3.3 (L) 3.5 - 5.0 mmol/L [facility], [facility] CHLORIDE 101 98 - 108 mmol/L LAB, [facility] CARBON DIOXIDE (CO2) 21 (L) 22 - 30 mmol/L [facility], [facility] GLUCOSE 90 70 - 99 mg/dL LAB, [facility] CREATININE SERUM 0.62 0.50 - 1.20 mg/dL [facility], [facility] ANION GAP 13 7 - 17 mmol/L [facility], [facility] BUN/CREA RATIO 6 LAB, [facility] OSMOLALITY (CALC) 273 (L) 278 - 305 mOsm/kg LAB, [facility] ESTIMATED GFR, NON AMER >60 >60 mL/min/1.73sqM LAB, [facility] ESTIMATED GFR, >60 >60 mL/min/1.73sqM LAB, [facility] Performing Organization Address City/[facility] Phone Number LAB, [facility], [address] [place] [address] CBC,PLATELETS (06/03/2018 2:37 AM) WBC (WHITE BLOOD COUNT) 5.64 3.99 - 11.19 K/uL LAB, [facility] RBC 3.35 (L) 3.91 - 5.04 M/uL LAB, [facility] HEMOGLOBIN (HGB) 10.2 (L) 11.4 - 15.2 g/dL LAB, [facility] HEMATOCRIT (HCT) 31.2 (L) 34.9 - 44.3 % LAB, [facility] MEAN CELL VOLUME 93.1 79.6 - 97.7 fL LAB, [facility] Mean Cell HGB 30.4 25.9 - 33.9 pg LAB, [facility] MEAN CELL HGB CONCENTRATION 32.7 31.4 - 35.9 g/dL LAB, [facility] RBC DISTRIBUTION 16.9 (H) 10.8 - 14.9 % LAB, [facility] PLATELET COUNT 198 150 - 393 K/uL LAB, [facility] MEAN PLATELET VOLUME 9.9 8.5 - 12.2 fL LAB, [facility] RBC, NUCLEATED 0.0 0.0 - 0.2 /100 WBC LAB, [facility] Performing Organization Address [facility] Number LAB, [facility], [address] [place] [id number] MAGNESIUM (06/03/2018 2:37 AM) MAGNESIUM 1.7 1.6 - 2.6 mg/dL LAB, [facility] Performing Organization Address [facility] Number LAB, [facility], [address] [place] [id number] CHEM 7 (LYTES,BUN,CREA,GLUC) (06/03/2018 2:37 AM) BUN 3 (L) 7 - 22 mg/dL [facility], [facility] SODIUM 132 (L) 133 - 143 mmol/L LAB, [facility] POTASSIUM 3.4 (L) 3.5 - 5.0 mmol/L [facility], [facility] CHLORIDE 103 98 - 108 mmol/L LAB, [facility] CARBON DIOXIDE (CO2) 18 (L) 22 - 30 mmol/L LAB, [facility] GLUCOSE 91 70 - 99 mg/dL LAB, [facility] CREATININE SERUM 0.69 0.50 - 1.20 mg/dL [facility], [facility] ANION GAP 14 7 - 17 mmol/L LAB, [facility] BUN/CREA RATIO 4 LAB, [facility] OSMOLALITY (CALC) 273 (L) 278 - 305 mOsm/kg LAB, [facility] ESTIMATED GFR, NON AMER >60 >60 mL/min/1.73sqM LAB, [facility] ESTIMATED GFR, >60 >60 mL/min/1.73sqM LAB, [facility] Performing Organization Address [facility] LAB, [facility], [address] [place] [id number] CBC,PLATELETS (06/02/2018 3:32 AM) WBC (WHITE BLOOD COUNT) 5.38 3.99 - 11.19 K/uL LAB, [facility] RBC 3.13 (L) 3.91 - 5.04 M/uL LAB, [facility] HEMOGLOBIN (HGB) 9.6 (L) 11.4 - 15.2 g/dL LAB, [facility] HEMATOCRIT (HCT) 29.1 (L) 34.9 - 44.3 % LAB, [facility] MEAN CELL VOLUME 93.0 79.6 - 97.7 fL LAB, [facility] Mean Cell HGB 30.7 25.9 - 33.9 pg LAB, [facility] MEAN CELL HGB CONCENTRATION 33.0 31.4 - 35.9 g/dL LAB, [facility] RBC DISTRIBUTION 16.8 (H) 10.8 - 14.9 % LAB, [facility] PLATELET COUNT 190 150 - 393 K/uL LAB, [facility] MEAN PLATELET VOLUME 9.9 8.5 - 12.2 fL LAB, [facility] RBC, NUCLEATED 0.0 0.0 - 0.2 /100 WBC LAB, [facility] Performing Organization Address City/[facility] Phone Number LAB, [facility], [address] [place] [id number] MAGNESIUM (06/02/2018 3:32 AM) MAGNESIUM 1.9 1.6 - 2.6 mg/dL LAB, [facility] Performing Organization Address [facility] Phone Number LAB, [facility], [address] [place] [address] PT,INR,PTT (06/02/2018 3:32 AM) PT 16.9 (H) 11.9 - 14.2 sec LAB, [facility] INR 1.4 (H) 0.9 - 1.1 [facility], [facility] PTT 31.2 24.0 - 34.3 sec LAB, [facility] Performing Organization Address City/[facility] Phone Number LAB, [facility], [address] [place] [address] CHEM 7 (LYTES,BUN,CREA,GLUC) (06/02/2018 3:32 AM) BUN 2 (L) 7 - 22 mg/dL LAB, [facility] SODIUM 135 133 - 143 mmol/L LAB, [facility] POTASSIUM 3.1 (L) 3.5 - 5.0 mmol/L LAB, [facility] CHLORIDE 105 98 - 108 mmol/L LAB, [facility] CARBON DIOXIDE (CO2) 21 (L) 22 - 30 mmol/L LAB, [facility] GLUCOSE 108 (H) 70 - 99 mg/dL LAB, [facility] CREATININE SERUM 0.68 0.50 - 1.20 mg/dL [facility] ANION GAP 12 7 - 17 mmol/L [facility] BUN/CREA RATIO 3 [facility], [facility] OSMOLALITY (CALC) 278 278 - 305 mOsm/kg [facility], [facility] ESTIMATED GFR, NON AMER >60 >60 mL/min/1.73sqM LAB, [facility] ESTIMATED GFR, >60 >60 mL/min/1.73sqM [facility], [facility] Performing Organization Address [facility] Phone Number LAB, [facility], [address] [place] [id number] CHEM 6 (LYTES, BUN CREA) (06/01/2018 4:41 PM) BUN 2 (L) 7 - 22 mg/dL [facility], [facility] SODIUM 134 133 - 143 mmol/L [facility] POTASSIUM 3.5 3.5 - 5.0 mmol/L [facility], [facility] CHLORIDE 105 98 - 108 mmol/L [facility], [facility] CARBON DIOXIDE (CO2) 22 22 - 30 mmol/L [facility], [facility] CREATININE SERUM 0.67 0.50 - 1.20 mg/dL [facility], [facility] ANION GAP 11 7 - 17 mmol/L [facility], [facility] BUN/CREA RATIO 3 [facility], [facility] ESTIMATED GFR, NON AMER >60 >60 mL/min/1.73sqM [facility], [facility] ESTIMATED GFR, >60 >60 mL/min/1.73sqM [facility], [facility] Performing Organization Address [facility] Phone Number LAB, [facility], [address] [place] [phone] POTASSIUM (06/01/2018 2:06 PM) POTASSIUM 3.2 (L) 3.5 - 5.0 mmol/L [facility], [facility] Performing Organization Address [facility] Phone Number LAB, [facility], [address] [place] [id number] ECG (06/01/2018 6:46 AM) Performing [facility] Number RADIOLOGY CBC,PLATELETS (06/01/2018 3:26 AM) WBC (WHITE BLOOD COUNT) 5.61 3.99 - 11.19 K/uL [facility], [facility] RBC 3.25 (L) 3.91 - 5.04 M/uL [facility], [facility] HEMOGLOBIN (HGB) 9.8 (L) 11.4 - 15.2 g/dL [facility], [facility] HEMATOCRIT (HCT) 29.7 (L) 34.9 - 44.3 % LAB, [facility] MEAN CELL VOLUME 91.4 79.6 - 97.7 fL LAB, [facility] Mean Cell HGB 30.2 25.9 - 33.9 pg LAB, [facility] MEAN CELL HGB CONCENTRATION 33.0 31.4 - 35.9 g/dL LAB, [facility] RBC DISTRIBUTION 16.8 (H) 10.8 - 14.9 % [facility], [facility] PLATELET COUNT 163 150 - 393 K/uL LAB, [facility] MEAN PLATELET VOLUME 9.5 8.5 - 12.2 fL LAB, [facility] RBC, NUCLEATED 0.0 0.0 - 0.2 /100 WBC LAB, [facility] Performing Organization Address [facility] Phone Number LAB, [facility], [address] [place] [phone] MAGNESIUM (06/01/2018 3:26 AM) MAGNESIUM 1.9 1.6 - 2.6 mg/dL [facility], [facility] Performing Organization Address [facility] Phone Number LAB, [facility], [address] [place] [id number] PT,INR,PTT (06/01/2018 3:26 AM) PT 16.3 (H) 11.9 - 14.2 sec [facility], [facility] INR 1.3 (H) 0.9 - 1.1 [facility], [facility] PTT 32.7 24.0 - 34.3 sec LAB, [facility] Performing Organization Address [facility] Phone Number LAB, [facility], [address] [place] [phone] CHEM 7 (LYTES,BUN,CREA,GLUC) (06/01/2018 3:26 AM) BUN 2 (L) 7 - 22 mg/dL [facility], [facility] SODIUM 134 133 - 143 mmol/L [facility], [facility] POTASSIUM 2.7 (LL)Comment: Critical 3.5 - 5.0 mmol/L [facility], [facility] K result called to and read back by: TAM HERNANDEZ at: 06/01/2018 05:46:42 by : 2018 CHLORIDE 104 98 - 108 mmol/L [facility], [facility] CARBON DIOXIDE (CO2) 20 (L) 22 - 30 mmol/L [facility], [facility] GLUCOSE 99 70 - 99 mg/dL [facility] CREATININE SERUM 0.64 0.50 - 1.20 mg/dL [facility], [facility] ANION GAP 13 7 - 17 mmol/L [facility], [facility] BUN/CREA RATIO 3 [facility], [facility] OSMOLALITY (CALC) 275 (L) 278 - 305 mOsm/kg LAB, [facility] ESTIMATED GFR, NON >60 >60 mL/min/1.73sqM LAB, [facility] AMER ESTIMATED GFR, >60 >60 mL/min/1.73sqM LAB, [facility] Performing Organization Address City/State/Zipcode Phone Number LAB, [facility], [address] [place] [address] HEMOGLOBIN & HEMATOCRIT (05/31/2018 12:54 PM) HEMOGLOBIN (HGB) 9.4 (L) 11.4 - 15.2 g/dL [facility], [facility] HEMATOCRIT (HCT) 28.8 (L) 34.9 - 44.3 % [facility], [facility] Performing Organization Address City/State/[facility] Phone Number LAB, [facility], [address] [place] [address] XR CHEST PORTABLE (05/31/2018 12:12 PM) Impressions Performed At IMPRESSION: RADIOLOGY Improved right basilar atelectasis. Mildly progressive left pleural effusion and left basilar atelectasis. Narrative Performed At EXAM: XR CHEST PORTABLE, 05/31/2018 12:12 PM RADIOLOGY COMPARISON: May 29, 2018 CLINICAL INDICATIONS:?new cough RELEVANT CLINICAL HISTORY: FINDINGS: (Adequate technique) Improved right basilar atelectasis. Mildly progressive left pleural effusion and left basilar atelectasis. No other change. Procedure Note User, Interfaces - 05/31/2018 1:03 PM EST EXAM: XR CHEST PORTABLE, 05/31/2018 12:12 PM COMPARISON: May 29, 2018 CLINICAL INDICATIONS: new cough RELEVANT CLINICAL HISTORY: FINDINGS: (Adequate technique) Improved right basilar atelectasis. Mildly progressive left pleural effusion and left basilar atelectasis. No other change. IMPRESSION IMPRESSION: Improved right basilar atelectasis. Mildly progressive left pleural effusion and left basilar atelectasis. Performing Organization Address [facility] Phone Number RADIOLOGY XR ABDOMEN 1 VIEW PORTABLE (05/31/2018 12:12 PM) Impressions Performed At IMPRESSION: RADIOLOGY No x-ray findings of bowel obstruction or perforation on this single supine view. Narrative Performed At EXAM: XR ABDOMEN 1 VIEW PORTABLE, 05/31/2018 12:12 PM RADIOLOGY COMPARISON: Abdominal x-ray from May 28, [address] of the abdomen and pelvis from May 29, 2018. CLINICAL INDICATIONS:?abd pain FINDINGS: Tubes: None. There are surgical clips in the pelvis suggesting previous tubal ligation. No gross free air. There is a non obstructive bowel gas pattern.?No organomegaly or mass effect.?No significant calcific densities or definite stones.?Visualized osseous structures are unremarkable for the patient's age. Procedure Note User, Interfaces - 06/04/2018 2:16 PM EST EXAM: XR ABDOMEN 1 VIEW PORTABLE, 05/31/2018 12:12 PM COMPARISON: Abdominal x-ray from May 28, [address] of the abdomen and pelvis from May 29, 2018. CLINICAL INDICATIONS: abd pain FINDINGS: Tubes: None. There are surgical clips in the pelvis suggesting previous tubal ligation. No gross free air. There is a non obstructive bowel gas pattern. No organomegaly or mass effect. No significant calcific densities or definite stones. Visualized osseous structures are unremarkable for the patient's age. IMPRESSION IMPRESSION: No x-ray findings of bowel obstruction or perforation on this single supine view. Performing Organization Address [facility] Phone Number RADIOLOGY GLUCOSE POC (05/31/2018 7:05 AM) GLUCOSE, POINT OF CARE 155 (H)Comment: No BRAVE per 70 - 99 mg/dL LAB, PO RN: PATIENT TYPE sample type for POC testing Capillary Blood LAB, PO Performing Organization Address [facility] Phone Number LAB, PO LAB, PO Point of Care Testing, Test performed at the address of, the patient encounter GLUCOSE POC (05/31/2018 6:30 AM) GLUCOSE, POINT OF CARE 47 (LL) 70 - 99 mg/dL LAB, PO Comment: Notified RNread back No BRAVE per RN: PATIENT TYPE sample type for POC testing Capillary Blood LAB, PO Performing Organization Address [facility] LAB, PO LAB, PO Point of Care Testing, Test performed at the address of, the patient encounter CBC,PLATELETS (05/31/2018 3:02 AM) WBC (WHITE BLOOD COUNT) 5.83 3.99 - 11.19 K/uL [facility], [facility] RBC 2.84 (L) 3.91 - 5.04 M/uL [facility], [facility] HEMOGLOBIN (HGB) 8.6 (L) 11.4 - 15.2 g/dL [facility], [facility] HEMATOCRIT (HCT) 27.2 (L) 34.9 - 44.3 % [facility], [facility] MEAN CELL VOLUME 95.8 79.6 - 97.7 fL LAB, [facility] Mean Cell HGB 30.3 25.9 - 33.9 pg LAB, [facility] MEAN CELL HGB CONCENTRATION 31.6 31.4 - 35.9 g/dL LAB, [facility] RBC DISTRIBUTION 16.7 (H) 10.8 - 14.9 % [facility], [facility] PLATELET COUNT 145 (L) 150 - 393 K/uL LAB, [facility] MEAN PLATELET VOLUME NOT MEASURED 8.5 - 12.2 fL LAB, [facility] RBC, NUCLEATED 0.0 0.0 - 0.2 /100 WBC LAB, [facility] Performing Organization Address [facility] LAB, [facility], [address] [place] [id number] MAGNESIUM (05/31/2018 3:02 AM) MAGNESIUM 1.5 (L) 1.6 - 2.6 mg/dL LAB, [facility] Performing Organization [facility] LAB, [facility], [address] [place] [id number] PT,INR,PTT (05/31/2018 3:02 AM) PT 16.1 (H) 11.9 - 14.2 sec LAB, [facility] INR 1.3 (H) 0.9 - 1.1 LAB, [facility] PTT 33.5Comment: Results inconsistent with the 24.0 - 34.3 sec LAB, [facility] patient's previous results Performing Organization Address [facility] Phone Number LAB, [facility], [address] [place] [address] CHEM 7 (LYTES,BUN,CREA,GLUC) (05/31/2018 3:02 AM) BUN 5 (L) 7 - 22 mg/dL [facility], [facility] SODIUM 138 133 - 143 mmol/L LAB, [facility] POTASSIUM 3.3 (L) 3.5 - 5.0 mmol/L [facility], [facility] CHLORIDE 110 (H) 98 - 108 mmol/L [facility], [facility] CARBON DIOXIDE (CO2) 16 (L) 22 - 30 mmol/L [facility], [facility] GLUCOSE 58 (L) 70 - 99 mg/dL [facility], [facility] CREATININE SERUM 0.57 0.50 - 1.20 mg/dL [facility], [facility] ANION GAP 15 7 - 17 mmol/L [facility], [facility] BUN/CREA RATIO 9 [facility], [facility] OSMOLALITY (CALC) 282 278 - 305 mOsm/kg LAB, [facility] ESTIMATED GFR, NON AMER >60 >60 mL/min/1.73sqM LAB, [facility] ESTIMATED GFR, >60 >60 mL/min/1.73sqM LAB, [facility] Performing Organization Address [facility] Phone Number LAB, [facility], [address] [place] [address] ECHOCARDIOGRAM (05/30/2018 2:56 PM) BSA 1.41 m2 MARY (continuity Vmax) 1.49 cm2 MARY index (continuity Vmax) 1.05 m/s MARY (continuity VTI) 1.64 cm2 MARY index (continuity VTI) 1.16 cm2/m2 LA ESV SP 4CH (MOD) 39 mL LA ESV BP (MOD) 44 mL LA ESV SP 2CH (MOD) 48 mL LA ESV BP (MOD) index 31 mL/m2 E/e' lateral ratio 19.50 e' septal pk bobby 0.07 m/s e' lateral pk bobby 0.06 m/s Average e' pk bobby 0.07 m/s TAPSE 2.30 LA AREA 2CH 17.40 cm2 LV RWT 0.49 LV EDV BP 55 mL LV ESV BP 22 mL BP EF 60 % PV PK BOBBY 0.73 m/s DI (Vmax) 0.52 E/e' septal ratio 16.71 [facility] ECHO LV BP DIASTOLIC VOLUME INDEX 39.01 mL/m2 [facility] ECHO LV BIPLANE SYSTOLIC VOLUME INDEX 15.60 mL/m2 RV basal diam 3.00 cm RV mid diam 2.20 cm RV long diam 6.70 cm DI (VTI) 0.58 m/2 LVOT stroke volume index 44.62 ml/m2 LV stroke volume BP (ml) 33 mL LV stroke volume index BP 23.40 mL/m2 LVIDD 4.92 3.5 - 6.0 cm IVS 1.20 0.6 - 1.1 cm PW 1.20 0.6 - 1.1 cm LVIDS 3.01 2.1 - 4.0 cm Sinus 3.50 cm LV mass 227.84 g AV regurgitation pressure 1/2 time 296.00 ms AV mean gradient 7 mmHg AV Velocity Ratio 0.52 AV LVOT peak gradient 4 mmHg PV peak gradient 2 mmHg E/A ratio 0.93 E wave decelartion time 211.00 msec LVOT diameter 1.90 cm LVOT area 2.83 cm2 LVOT peak bobby 0.98 m/s LVOT peak VTI 22.20 cm Ao peak bobby 1.87 m/s Ao VTI 38.30 cm LVOT stroke volume 63 cm3 AV peak gradient 14 mmHG Avg E/e' ratio 18.11 MV Peak E Bobby 1.17 m/s AR Max Bobby 3.55 m/s MV Peak A Bobby 1.26 m/s LV Mass Index 161.6 g/m2 Stroke Volume 63 cm/mL Stroke volume index 45 [facility] AV VTI RATIO PRE STRESS 0.58 FS 39 28 - 44 % AV valve area 1.64 cm2 EST RAP 15.00 mmHg IVC ostium 2.50 cm Narrative Performed At ?? Left ventricular size is normal, mild concentric hypertrophy, normal systolic function, biplane ejection fraction estimated at 60%. ?? Right ventricular size and function are normal. ?? Both atria are normal. ?? Aortic valve appears mildly thickened and calcified. There is moderate aortic regurgitation. No stenosis. ?? Mitral valve leaflets and annulus appear thickened and calcified with restricted mobility. There is mild to moderate posteriorly directed mitral regurgitation.?There are very small echodensities on the tips of the anterior and posterior calcified leaflets, likely chordal calcification. ?? Patent foramen ovale detected by color doppler with small left to right shunt. No associated right to left shunt seen with saline contrast. ?? Unable to estimate right ventricular systolic pressure. HEMOGLOBIN & HEMATOCRIT (05/30/2018 7:45 AM) HEMOGLOBIN (HGB) 8.4 (L) 11.4 - 15.2 g/dL [facility], [facility] HEMATOCRIT (HCT) 26.1 (L) 34.9 - 44.3 % [facility], [facility] Performing Organization Address [facility] Phone Number LAB, [facility], [address] [place] [id number] CBC,PLATELETS (05/30/2018 1:50 AM) WBC (WHITE BLOOD COUNT) 6.01 3.99 - 11.19 K/uL LAB, [facility] RBC 2.75 (L) 3.91 - 5.04 M/uL LAB, [facility] HEMOGLOBIN (HGB) 8.3 (L) 11.4 - 15.2 g/dL LAB, [facility] HEMATOCRIT (HCT) 25.6 (L) 34.9 - 44.3 % LAB, [facility] MEAN CELL VOLUME 93.1 79.6 - 97.7 fL LAB, [facility] Mean Cell HGB 30.2 25.9 - 33.9 pg LAB, [facility] MEAN CELL HGB CONCENTRATION 32.4 31.4 - 35.9 g/dL LAB, [facility] RBC DISTRIBUTION 16.2 (H) 10.8 - 14.9 % LAB, [facility] PLATELET COUNT 124 (L) 150 - 393 K/uL LAB, [facility] MEAN PLATELET VOLUME NOT MEASURED 8.5 - 12.2 fL LAB, [facility] RBC, NUCLEATED 0.0 0.0 - 0.2 /100 WBC LAB, [facility] Performing Organization Address [facility] Phone Number LAB, [facility], [address] [place] [address] MAGNESIUM (05/30/2018 1:05 AM) MAGNESIUM 1.5 (L) 1.6 - 2.6 mg/dL [facility], [facility] Performing Organization Address [facility], [address] [place] [address] PT,INR,PTT (05/30/2018 1:05 AM) PT 16.0 (H) 11.9 - 14.2 sec LAB, [facility] INR 1.3 (H) 0.9 - 1.1 [facility], [facility] PTT 26.2 24.0 - 34.3 sec LAB, [facility] Performing Organization Address [facility] Phone Number LAB, [facility], [address] [place] [address] CHEM 7 (LYTES,BUN,CREA,GLUC) (05/30/2018 1:05 AM) BUN 5 (L) 7 - 22 mg/dL [facility], [facility] SODIUM 133 133 - 143 mmol/L LAB, [facility] POTASSIUM 3.3 (L) 3.5 - 5.0 mmol/L LAB, [facility] CHLORIDE 105 98 - 108 mmol/L [facility], [facility] CARBON DIOXIDE (CO2) 19 (L) 22 - 30 mmol/L [facility], [facility] GLUCOSE 83 70 - 99 mg/dL [facility], [facility] CREATININE SERUM 0.57 0.50 - 1.20 mg/dL [facility], [facility] ANION GAP 12 7 - 17 mmol/L [facility], [facility] BUN/CREA RATIO 9 LAB, [facility] OSMOLALITY (CALC) 275 (L) 278 - 305 mOsm/kg LAB, [facility] ESTIMATED GFR, NON AMER >60 >60 mL/min/1.73sqM LAB, [facility] ESTIMATED GFR, >60 >60 mL/min/1.73sqM LAB, [facility] Performing Organization Address [facility] Number LAB, [facility], [address] [place] [id number] TYPE AND CROSS (05/29/2018 5:34 PM) ABO/RH(D) TYPE O POSITIVE LAB, [facility] ANTIBODY SCREEN NEGATIVE [facility], [facility] UNIT NUMBER [id number] LAB, [facility] BLOOD COMPONENT TYPE Red Cells, Leukoreduced LAB, [facility] PRODUCT CODE [id number] LAB, [facility] UNIT STATUS Issued, Final LAB, [facility] TRANSFUSION STATUS OK TO TRANSFUSE LAB, [facility] CROSSMATCH RESULT Electronically Compatible LAB, [facility] Performing Organization Address [facility] Phone Number LAB, [facility], [address] [place] [address] UA, TOTAL W/REFLEX TO CULTURE (05/29/2018 4:24 PM) APPEARANCE, URINE Clear Clear LAB, [facility] SPECIFIC GRAVITY, URINE >1.045 (H) 1.001 - 1.035 LAB, [facility] GLUCOSE, URINE Negative Negative mg/dL LAB, [facility] KETONES, URINE Trace (A) Negative [facility], [facility] BLOOD, URINE Negative Negative LAB, [facility] PH URINE 5.0 5.0 - 7.0 LAB, [facility] PROTEIN, URINE Negative Negative mg/dL LAB, [facility] NITRITES, URINE Negative Negative LAB, [facility] LEUKOCYTE ESTERASE, URINE Negative Negative [facility], [facility] COLOR, URINE Yellow Yellow LAB, [facility] UROBILINOGEN, URINE 0.2 <2.0 EU/dL LAB, [facility] WBC, URINE 0-5 0 - 5 /HPF LAB, [facility] RBC, URINE 0-2 0 - 2 /HPF LAB, [facility] BACTERIA, URINE Absent Absent LAB, [facility] COMMENT, URINE None LAB, [facility] SQUAMOUS EPITHELIAL CELLS, URINE 2+ /HPF LAB, [facility] Specimen URINE - CLEAN CATCH Performing Organization Address [facility] Phone Number LAB, [facility], [address] [place] [address] HEMOGLOBIN & HEMATOCRIT (05/29/2018 3:28 PM) HEMOGLOBIN (HGB) 6.8 (LL)Comment: This result has been 11.4 - 15.2 g/dL [facility], [facility] called to TAM NICHOLE by Dede Shabazz on 05 29 2018 at 1614, and has been read back. HEMATOCRIT (HCT) 21.3 (L) 34.9 - 44.3 % LAB, [facility] Performing Organization Address [facility] Phone Number LAB, [facility], [address] [place] [address] ABDOMEN/PELVIS WITH CONTRAST (05/29/2018 1:19 PM) Impressions Performed At IMPRESSION: RADIOLOGY 1.?Cecal pole is slightly high riding in the right mid abdomen. Focal thinning with defect in the posterior ascending colonic wall just superior to the ileocecal valve demonstrated with some adjacent fluid and stranding/inflammation in the pericolonic fat suggesting microperforation. This may be at site of polyp removal although polyp removed from this area was only 3 mm. No gross pneumoperitoneum identified though. 2.?No loculated rim-enhancing or air-containing collection. Normal appendix. 3.?There is some fluid and air distention of the proximal colon. Remainder of the colon is fairly collapsed. Wall appears prominent although this may be due to degree of distention. Extensive colonic diverticulosis present with no evidence of acute diverticulitis. 4.?Enhancing lesion in the right dome likely perfusional versus benign lesion such as focal nodular hyperplasia. 5.?Cholecystectomy. Biliary dilatation likely secondary to same. 6.?Hiatal hernia. Large duodenal diverticulum. Hepatic trauma grade:? N/A Spleen trauma grade:?N/A Kidney trauma grade: N/A Narrative Performed At EXAM: CT ABDOMEN/PELVIS WITH CONTRAST, 05/29/2018 13:19 PM RADIOLOGY COMPARISON: Ultrasound right upper quadrant 06/21/2012. CLINICAL INDICATIONS:?Acute worsening pain s/p colonoscopy; TECHNIQUE: Helical axial images of the abdomen and pelvis were performed from the lung bases through the ischial tuberosities following the administration of oral and intravenous contrast. Coronal 2 mm reconstructions were also made. CONTRAST: iohexol (OMNIPAQUE) 300 MG/ML vial 50 mL; Route of Administration: Oral; Dose: 50 mL. iohexol (OMNIPAQUE) 350 MG/ML injection 1-171 mL; Route of Administration: Intravenous; Dose: 90 mL. FINDINGS: Lung Bases:? Calcification of the aortic root present. Coronary artery calcification. Heart is mildly enlarged. Trace bilateral effusions with lower lobe atelectasis. ABDOMEN Liver: There is some elongation of the right hepatic lobe but overall liver does not appear enlarged. Low-density along the falciform ligament likely focal fatty change. A hyperattenuating focus towards the right dome anteriorly measures 0.9 x 1.1 cm, axial image 16, possibly perfusional versus small focal nodular hyperplasia or other benign lesion. Mild prominence of the central intrahepatic ducts demonstrated. Biliary/Gallbladder: Gallbladder has been resected. Mild prominence of the intrahepatic ducts and dilatation of the common duct present most likely post cholecystectomy status related. Spleen: Spleen is normal in size and CT density. Pancreas: Marked fatty atrophy of the pancreas demonstrated with scattered parenchymal calcifications. Duct is not distended. Kidneys: Kidneys are normal in size. Contours are lobulated. There are no stones or hydronephrosis. Adrenals: Adrenal glands are unremarkable. Retroperitoneal/Vasculature: Marked atherosclerosis of the aorta and iliac vessels demonstrated with no aneurysmal dilatation. Small nodes not enlarged by size criteria. Gastrointestinal/Mesentery: Hiatal hernia present. There is some contrast in esophagus which represent reflux or decreased clearance. Gas-filled duodenal diverticulum along the duodenal bulb is suspected. No small bowel obstruction. Contrast passes through to the distal small bowel loops. The colon is partially fluid-filled and not well-distended. Wall appears prominent with questionable hyperemia although this may be due to degree of distention. Colonic diverticulosis throughout the colon present with no evidence of acute diverticulitis. Mild gaseous distention of the cecal pole and ascending colon. The cecal pole is located anteriorly, axial images 68 through 83 with normal-appearing appendix. There is a focal area of wall thinning present in the ascending colon just superior to the ileocecal valve, axial image 53. Fluid attenuation extends into the region of the wall with small foci of air. There appears to be a defect in the wall noted on axial image 56 and coronal images 33 through 38. Some of the fluid appears to be extending into the adjacent pericolonic fat with mild stranding of the adjacent fat present. No gross pneumoperitoneum present. This may represent site of polyp removal on colonoscopy. PELVIS Bladder: The bladder is normal. Genital:? Tubal ligation clips demonstrated. There are some vascular calcifications along the parametrial region and in the adnexa. Uterus and ovaries otherwise unremarkable. Possible trace fluid in the pelvis. Bony Structures:? Degenerative changes. Calcification within numerous disc spaces. A few bone islands are noted. Procedure Note User, Interfaces - 05/29/2018 1:57 PM EST EXAM: CT ABDOMEN/PELVIS WITH CONTRAST, 05/29/2018 13:19 PM COMPARISON: Ultrasound right upper quadrant 06/21/2012. CLINICAL INDICATIONS: Acute worsening pain s/p colonoscopy; TECHNIQUE: Helical axial images of the abdomen and pelvis were performed from the lung bases through the ischial tuberosities following the administration of oral and intravenous contrast. Coronal 2 mm reconstructions were also made. CONTRAST: iohexol (OMNIPAQUE) 300 MG/ML vial 50 mL; Route of Administration: Oral; Dose: 50 mL. iohexol (OMNIPAQUE) 350 MG/ML injection 1-171 mL; Route of Administration: Intravenous; Dose: 90 mL. FINDINGS: Lung Bases: Calcification of the aortic root present. Coronary artery calcification. Heart is mildly enlarged. Trace bilateral effusions with lower lobe atelectasis. ABDOMEN Liver: There is some elongation of the right hepatic lobe but overall liver does not appear enlarged. Low-density along the falciform ligament likely focal fatty change. A hyperattenuating focus towards the right dome anteriorly measures 0.9 x 1.1 cm, axial image 16, possibly perfusional versus small focal nodular hyperplasia or other benign lesion. Mild prominence of the central intrahepatic ducts demonstrated. Biliary/Gallbladder: Gallbladder has been resected. Mild prominence of the intrahepatic ducts and dilatation of the common duct present most likely post cholecystectomy status related. Spleen: Spleen is normal in size and CT density. Pancreas: Marked fatty atrophy of the pancreas demonstrated with scattered parenchymal calcifications. Duct is not distended. Kidneys: Kidneys are normal in size. Contours are lobulated. There are no stones or hydronephrosis. Adrenals: Adrenal glands are unremarkable. Retroperitoneal/Vasculature: Marked atherosclerosis of the aorta and iliac vessels demonstrated with no aneurysmal dilatation. Small nodes not enlarged by size criteria. Gastrointestinal/Mesentery: Hiatal hernia present. There is some contrast in esophagus which represent reflux or decreased clearance. Gas-filled duodenal diverticulum along the duodenal bulb is suspected. No small bowel obstruction. Contrast passes through to the distal small bowel loops. The colon is partially fluid-filled and not well-distended. Wall appears prominent with questionable hyperemia although this may be due to degree of distention. Colonic diverticulosis throughout the colon present with no evidence of acute diverticulitis. Mild gaseous distention of the cecal pole and ascending colon. The cecal pole is located anteriorly, axial images 68 through 83 with normal-appearing appendix. There is a focal area of wall thinning present in the ascending colon just superior to the ileocecal valve, axial image 53. Fluid attenuation extends into the region of the wall with small foci of air. There appears to be a defect in the wall noted on axial image 56 and coronal images 33 through 38. Some of the fluid appears to be extending into the adjacent pericolonic fat with mild stranding of the adjacent fat present. No gross pneumoperitoneum present. This may represent site of polyp removal on colonoscopy. PELVIS Bladder: The bladder is normal. Genital: Tubal ligation clips demonstrated. There are some vascular calcifications along the parametrial region and in the adnexa. Uterus and ovaries otherwise unremarkable. Possible trace fluid in the pelvis. Bony Structures: Degenerative changes. Calcification within numerous disc spaces. A few bone islands are noted. IMPRESSION IMPRESSION: 1. Cecal pole is slightly high riding in the right mid abdomen. Focal thinning with defect in the posterior ascending colonic wall just superior to the ileocecal valve demonstrated with some adjacent fluid and stranding/inflammation in the pericolonic fat suggesting microperforation. This may be at site of polyp removal although polyp removed from this area was only 3 mm. No gross pneumoperitoneum identified though. 2. No loculated rim-enhancing or air-containing collection. Normal appendix. 3. There is some fluid and air distention of the proximal colon. Remainder of the colon is fairly collapsed. Wall appears prominent although this may be due to degree of distention. Extensive colonic diverticulosis present with no evidence of acute diverticulitis. 4. Enhancing lesion in the right dome likely perfusional versus benign lesion such as focal nodular hyperplasia. 5. Cholecystectomy. Biliary dilatation likely secondary to same. 6. Hiatal hernia. Large duodenal diverticulum. Hepatic trauma grade: N/A Spleen trauma grade: N/A Kidney trauma grade: N/A Performing Organization Address City/State/Zipcode Phone Number RADIOLOGY HEMOGLOBIN & HEMATOCRIT (05/29/2018 8:50 AM) HEMOGLOBIN (HGB) 7.2 (L) 11.4 - 15.2 g/dL [facility] HEMATOCRIT (HCT) 21.6 (L) 34.9 - 44.3 % [facility] Performing Organization Address City/State/Zipcode Phone Number LAB, [facility], [address] [place] [address] BLOOD CULTURE, PERIPHERAL 1ST SITE (05/29/2018 12:30 AM) MICRO ACCESSION NUMBER [id number] LAB, [facility] SOURCE BLOOD, PERIPHERAL: Right Antecubital LAB, MICRO RESULT-CULT NO GROWTH DAY 5 OF 5 LAB, [facility] REPORT STATUS 06/03/2018 FINAL LAB, [facility] Specimen BLOOD CULTURE - PERIPHERAL Performing Organization Address City/State/Zipcode Phone Number LAB, MICRO LAB, MICRO [facility], [address], [place] [address], Blood Cultures processed at:, [facility], [address], [place] [address] XR CHEST PORTABLE (05/29/2018 12:24 AM) Impressions Performed At IMPRESSION: RADIOLOGY Bilateral basilar atelectasis an/or early developing airspace disease such as infection/or aspiration in the appropriate clinical setting. Cardiomegaly with borderline mild pulmonary venous hypertension. Narrative Performed At EXAM: XR CHEST PORTABLE, 05/29/2018 00:24 AM RADIOLOGY COMPARISON: No prior studies available for comparison. CLINICAL INDICATIONS:?Rule out new pneumonia RELEVANT CLINICAL HISTORY: FINDINGS: (Compromised by low lung volumes) Life Support Devices: None Chest Wall: Normal Leeanna: Normal Mediastinum: Normal Pleural Spaces: No definite pleural effusion. No definite pneumothorax. Lungs:?Low lung volumes and mild right hemidiaphragm elevation with bilateral basilar atelectasis an/or developing airspace disease. Cardiac Silhouette: Enlarged cardiac silhouette size. Thoracic Aorta:?Normal Pulmonary Vessels:? Mild pulmonary venous hypertension. Procedure Note User, Interfaces - 05/29/2018 10:14 AM EST EXAM: XR CHEST PORTABLE, 05/29/2018 00:24 AM COMPARISON: No prior studies available for comparison. CLINICAL INDICATIONS: Rule out new pneumonia RELEVANT CLINICAL HISTORY: FINDINGS: (Compromised by low lung volumes) Life Support Devices: None Chest Wall: Normal Leeanna: Normal Mediastinum: Normal Pleural Spaces: No definite pleural effusion. No definite pneumothorax. Lungs: Low lung volumes and mild right hemidiaphragm elevation with bilateral basilar atelectasis an/or developing airspace disease. Cardiac Silhouette: Enlarged cardiac silhouette size. Thoracic Aorta: Normal Pulmonary Vessels: Mild pulmonary venous hypertension. IMPRESSION IMPRESSION: Bilateral basilar atelectasis an/or early developing airspace disease such as infection/or aspiration in the appropriate clinical setting. Cardiomegaly with borderline mild pulmonary venous hypertension. Performing Organization Address [facility] Phone Number RADIOLOGY CBC,PLATELETS (05/29/2018 12:16 AM) WBC (WHITE BLOOD COUNT) 7.79 3.99 - 11.19 K/uL [facility] RBC 2.68 (L) 3.91 - 5.04 M/uL [facility] HEMOGLOBIN (HGB) 8.1 (L) 11.4 - 15.2 g/dL [facility], [facility] HEMATOCRIT (HCT) 25.4 (L) 34.9 - 44.3 % [facility] MEAN CELL VOLUME 94.8 79.6 - 97.7 fL LAB, [facility] Mean Cell HGB 30.2 25.9 - 33.9 pg LAB, [facility] MEAN CELL HGB CONCENTRATION 31.9 31.4 - 35.9 g/dL [facility], [facility] RBC DISTRIBUTION 16.5 (H) 10.8 - 14.9 % [facility] PLATELET COUNT 139 (L) 150 - 393 K/uL LAB, [facility] MEAN PLATELET VOLUME 9.9 8.5 - 12.2 fL [facility], [facility] RBC, NUCLEATED 0.0 0.0 - 0.2 /100 WBC LAB, [facility] Performing Organization [facility] LAB, [facility], [address] [place] [address] MAGNESIUM (05/29/2018 12:16 AM) MAGNESIUM 1.5 (L) 1.6 - 2.6 mg/dL [facility], [facility] Performing Organization Address [facility] Phone Number LAB, [facility], [address] [place] [phone] PT,INR,PTT (05/29/2018 12:16 AM) PT 14.4 (H) 11.9 - 14.2 sec [facility] INR 1.1 0.9 - 1.1 [facility] PTT 25.0 24.0 - 34.3 sec LAB, [facility] Performing Organization Address [facility] Phone Number LAB, [facility], [address] [place] [address] CHEM 7 (LYTES,BUN,CREA,GLUC) (05/29/2018 12:16 AM) BUN 2 (L) 7 - 22 mg/dL [facility] SODIUM 139 133 - 143 mmol/L [facility] POTASSIUM 4.1 3.5 - 5.0 mmol/L [facility] CHLORIDE 102 98 - 108 mmol/L [facility] CARBON DIOXIDE (CO2) 20 (L) 22 - 30 mmol/L [facility] GLUCOSE 100 (H) 70 - 99 mg/dL [facility] CREATININE SERUM 0.76 0.50 - 1.20 mg/dL [facility] ANION GAP 21 (H) 7 - 17 mmol/L [facility] BUN/CREA RATIO 3 [facility], [facility] OSMOLALITY (CALC) 287 278 - 305 mOsm/kg [facility], [facility] ESTIMATED GFR, NON AMER >60 >60 mL/min/1.73sqM [facility], [facility] ESTIMATED GFR, >60 >60 mL/min/1.73sqM [facility], [facility] Performing Organization Address [facility] Number LAB, [facility], [address] [place] [address] GLUCOSE POC (05/29/2018 12:10 AM) GLUCOSE, POINT OF CARE 96Comment: No BRAVE per RN: 70 - 99 mg/dL LAB, PO PATIENT TYPE sample type for POC testing Capillary Blood LAB, PO Performing Organization Address [facility] LAB, PO LAB, PO Point of Care Testing, Test performed at the address of, the patient encounter HEMOGLOBIN & HEMATOCRIT (05/29/2018 12:01 AM) HEMOGLOBIN (HGB) 8.2 (L) 11.4 - 15.2 g/dL [facility] HEMATOCRIT (HCT) 25.3 (L) 34.9 - 44.3 % [facility] Performing Organization Address [facility] Phone Number LAB, [facility], [address] [place] [address] LACTATE, BLOOD (05/29/2018 12:01 AM) LACTATE, WHOLE BLOOD 1.2 0.5 - 1.6 mmol/L [facility], [facility] Performing Organization Address [facility]/Zipcode Phone Number LAB, [facility], [address] [place] [address] BLOOD CULTURE, PERIPHERAL 2ND SITE (05/28/2018 11:52 PM) MICRO ACCESSION NUMBER [id number] LAB, MICRO SOURCE BLOOD, PERIPHERAL: Left Arm LAB, MICRO RESULT-CULT NO GROWTH DAY 5 OF 5 LAB, MI[facility] REPORT STATUS 06/03/2018 FINAL LAB, MICRO Specimen BLOOD CULTURE - PERIPHERAL Performing Organization Address [facility] Phone Number LAB, MICRO LAB, MICRO [facility], [address] [place] [address], Blood Cultures processed at:, [facility], [address], [place] [address] HEMOGLOBIN & HEMATOCRIT (05/28/2018 6:34 PM) HEMOGLOBIN (HGB) 8.8 (L) 11.4 - 15.2 g/dL [facility] HEMATOCRIT (HCT) 26.6 (L) 34.9 - 44.3 % LAB, [facility] Performing Organization Address [facility] Phone Number LAB, [facility], [address] [place] [address] SURG PATH REQUEST (05/28/2018 6:05 PM) Specimen Permanent Narrative Performed At LAB, [facility] Surgical Pathology Report Patient Name: PAMELA ESPINOZA? [facility]. Rec #: [id number] Submitting Physician: ELIZABETH ORTIZ --- Clinical History --- Preop Diagnosis:?Acute blood loss anemia.?Medical History:?Tachycardia. Autoimmune hepatitis.?HLD.?Diverticulosis.?D62 ---Final Pathologic Diagnosis--- A.?Colon, AC Polyp (Biopsy):? -?Tubular adenoma. B.?Colon, Transverse Polyps x2 (Biopsy): -?Fragments of tubular adenoma. C.?Colon, Descending Polyp (Biopsy): -?Hyperplastic polyp. ? voge1/OEZE:05/30/2018 Electronically Signed By Taj Nicole MD 05/30/2018 18:19:56 Professional Interpretation performed at location:?[address] [place], [place]?[address] ---SPECIMEN(S) RECEIVED:--- SBX A: Colon, BX B: Colon, BX C: Colon, BX ---GROSS DESCRIPTION:--- The specimens are received in three properly labeled containers with the patient's name and accession number.? A.?The specimen is designated jumbo forceps, ac polyp and consists of one soft cox portion of tissue which is 0.3 cm in greatest dimension.?TE 1 B.?The specimen is designated jumbo forceps, transverse colon polyps x2 and consists of two fragments of cox-pink soft tissue, 0.3 cm in greatest dimension.?TE 1 C.?The specimen is designated jumbo forceps, descending colon polyp and consists of two fragments of cox-pink soft tissue, 0.3 cm in greatest dimension.?TE 1 ? Lab Use Only: JobID [id number]? Gross description by:?Kenyatta Fu Performing Organization Address City/State/Zipcode Phone Number LILO EPPS [facility], [address] [place] [address] XR ABDOMEN 1 VIEW PORTABLE (05/28/2018 5:22 PM) Impressions Performed At IMPRESSION: RADIOLOGY No compelling findings of bowel obstruction or perforation. Narrative Performed At EXAM: XR ABDOMEN 1 VIEW PORTABLE, 05/28/2018 17:22 PM RADIOLOGY COMPARISON: June 21, 2012. CLINICAL INDICATIONS:?Pain post-procedure FINDINGS: Tubes: There are tubal ligation clips in the pelvis. No gross free air. There is a non obstructive bowel gas pattern.?No organomegaly or mass effect.?No significant calcific densities or definite stones.?Visualized osseous structures are unremarkable for the patient's age. Procedure Note User, Interfaces - 05/30/2018 6:14 PM EST EXAM: XR ABDOMEN 1 VIEW PORTABLE, 05/28/2018 17:22 PM COMPARISON: June 21, 2012. CLINICAL INDICATIONS: Pain post-procedure FINDINGS: Tubes: There are tubal ligation clips in the pelvis. No gross free air. There is a non obstructive bowel gas pattern. No organomegaly or mass effect. No significant calcific densities or definite stones. Visualized osseous structures are unremarkable for the patient's age. IMPRESSION IMPRESSION: No compelling findings of bowel obstruction or perforation. Performing Organization Address City/State/Zipcode Phone Number RADIOLOGY COLONOSCOPY (05/28/2018 3:42 PM) Narrative Performed At [facility] LAB, [facility] Patient Name: Pamela Espinoza Procedure Date: 05/28/2018 3:42 PM Date of : 1940 Admit Type: Inpatient Age: 78 Room: [place] [address] Gender: Female Note Status: Finalized Attending MD: Elizabeth Ortiz MD Procedure:? Colonoscopy Indications:? Hematochezia Providers:? Elizabeth Ortiz MD (Doctor), Ally Rodgers, ? (Fellow), Kelsi Drummond RN (Nurse), Shanna ? Ct (Medical Safety Director) Patient Profile:? This is a 78 year old female. Referring MD:?Mary Nash MD (Referring MD), Asya ? MD Gerardo (Referring MD), [place]. ? MD Lj (Referring MD), Iván Ochoa MD ? (Referring MD) Medicines:? Monitored Anesthesia Care Complications:? No immediate complications. Procedure:? Pre-Anesthesia Assessment: ? - Prior to the procedure, a History and Physical was ? performed, and patient medications and allergies ? were reviewed. The risks and benefits of the ? procedure and the sedation options and risks were ? discussed with the patient. All questions were ? answered and informed consent was obtained. Patient ? identification and proposed procedure were verified ? by the physician, the nurse, the right of way man and the ? transportation planning technician in the procedure room at 16:04 PM. Mental ? Status Examination: alert and oriented. Airway ? Examination: Mallampati Class III (part of the uvula ? and soft palate visualized). Respiratory ? Examination: clear to auscultation. CV Examination: ? RRR, no murmurs, no S3 or S4 and Abdominal ? examination: tenderness to palpation, +BS, ? nondistended, soft. Prophylactic Antibiotics: The ? patient does not require prophylactic antibiotics. ? Prior Anticoagulants: The patient has taken aspirin, ? last dose was 2 days prior to procedure. ASA Grade ? Assessment: III - A patient with severe systemic ? disease. After reviewing the risks and benefits, the ? patient was deemed in satisfactory condition to ? undergo the procedure. The anesthesia plan was to ? use monitored anesthesia care (MAC). Immediately ? prior to administration of medications, the patient ? was re-assessed for adequacy to receive sedatives. ? The physical status of the patient was re-assessed ? after the procedure. ? The Colonoscope was introduced through the anus and ? advanced to the terminal ileum. The colonoscopy was ? performed without difficulty. The patient tolerated ? the procedure well. The quality of the bowel ? preparation was good. The quality of the bowel ? preparation was evaluated using the BBPS ([place] ? Bowel Preparation Scale) with scores of: Right Colon ? = 2 (minor amount of residual staining, small ? fragments of stool and/or opaque liquid, but mucosa ? seen well), Transverse Colon = 2 (minor amount of ? residual staining, small fragments of stool and/or ? opaque liquid, but mucosa seen well) and Left Colon ? = 3 (entire mucosa seen well with no residual ? staining, small fragments of stool or opaque ? liquid). The total BBPS score equals 7. The quality ? of the bowel preparation was good. The terminal ? ileum, ileocecal valve, appendiceal orifice, and ? rectum were photographed. Findings: ? Hemorrhoids were found on perianal exam. ? The terminal ileum appeared normal. ? A 3 mm polyp was found in the ascending colon. The polyp was ? sessile. The polyp was removed with a jumbo cold forceps. Resection ? and retrieval were complete. ? Two sessile polyps were found in the transverse colon. The polyps ? were 3 to 4 mm in size. These polyps were removed with a jumbo cold ? forceps. Resection and retrieval were complete. ? A 5 mm polyp was found in the descending colon. The polyp was flat. ? The polyp was removed with a jumbo cold forceps. Resection and ? retrieval were complete. ? Multiple small-mouthed diverticula were found in the sigmoid colon. ? Bleeding internal hemorrhoids were found during retroflexion. The ? hemorrhoids were Grade II (internal hemorrhoids that prolapse but ? reduce spontaneously). ? The exam was otherwise without abnormality on direct and ? retroflexion views. Impression:?- Source of bleeding is internal hemorrhoids. ? - The examined portion of the ileum was normal. ? - One 3 mm polyp in the ascending colon, removed ? with a jumbo cold forceps. Resected and retrieved. ? - Two 3 to 4 mm polyps in the transverse colon, ? removed with a jumbo cold forceps. Resected and ? retrieved. ? - One 5 mm polyp in the descending colon, removed ? with a jumbo cold forceps. Resected and retrieved. ? - Diverticulosis in the sigmoid colon. ? - Bleeding internal hemorrhoids. Recommendation:?- [facility]. ? - Resume previous diet. ? - Continue present medications. ? - Await pathology results. ? - Repeat colonoscopy for surveillance based on ? pathology results. ? - Further recommendations per the GI consult team. Procedure Code(s):? --- Professional --- ? 88792, Colonoscopy, flexible; with biopsy, single or ? multiple Diagnosis Code(s):? --- Professional --- ? K64.1, Second degree hemorrhoids ? D12.2, Benign neoplasm of ascending colon ? D12.4, Benign neoplasm of descending colon ? D12.3, Benign neoplasm of transverse colon (hepatic ? flexure or splenic flexure) ? K92.1, Melena (includes Hematochezia) ? K57.30, Diverticulosis of large intestine without ? perforation or abscess without bleeding CPT copyright 2017 [employer]. All rights reserved. The codes documented in this report are preliminary and upon waterproofing machine operator review may be revised to meet current compliance requirements. Attending Participation: ? I personally performed the entire procedure. Elizabeth Ortiz MD 05/28/2018 4:51:32 PM This report has been signed electronically. Ally Rodgers MD Number of Addenda: 0 Note Initiated On: 05/28/2018 3:42 PM Performing Organization Address City/[facility] Phone Number LAB, [facility], [address] [place] [address] POTASSIUM (05/28/2018 1:42 PM) POTASSIUM 3.6 3.5 - 5.0 mmol/L [facility], [facility] Performing Organization Address City/[facility] Phone Number [facility], [facility], [address] [place] [address] HEMOGLOBIN & HEMATOCRIT (05/28/2018 11:51 AM) HEMOGLOBIN (HGB) 8.1 (L) 11.4 - 15.2 g/dL [facility], [facility] HEMATOCRIT (HCT) 24.6 (L) 34.9 - 44.3 % [facility], [facility] Performing Organization Address [facility] Phone Number LAB, [facility], [address] [place] [address] HEMOGLOBIN & HEMATOCRIT (05/28/2018 6:01 AM) HEMOGLOBIN (HGB) 7.9 (L) 11.4 - 15.2 g/dL [facility], [facility] HEMATOCRIT (HCT) 24.2 (L) 34.9 - 44.3 % LAB, [facility] Performing Organization Address [facility] Phone Number LAB, [facility], [address] [place] [address] MAGNESIUM (05/28/2018 1:08 AM) MAGNESIUM 1.6 1.6 - 2.6 mg/dL LAB, [facility] Performing Organization Address [facility] Phone Number LAB, [facility], [address] [place] [address] CBC,PLATELETS (05/28/2018 1:08 AM) WBC (WHITE BLOOD COUNT) 4.39 3.99 - 11.19 K/uL [facility], [facility] RBC 2.57 (L) 3.91 - 5.04 M/uL LAB, [facility] HEMOGLOBIN (HGB) 7.9 (L) 11.4 - 15.2 g/dL LAB, [facility] HEMATOCRIT (HCT) 24.0 (L) 34.9 - 44.3 % LAB, [facility] MEAN CELL VOLUME 93.4 79.6 - 97.7 fL LAB, [facility] Mean Cell HGB 30.7 25.9 - 33.9 pg LAB, [facility] MEAN CELL HGB CONCENTRATION 32.9 31.4 - 35.9 g/dL LAB, [facility] RBC DISTRIBUTION 16.4 (H) 10.8 - 14.9 % [facility] PLATELET COUNT 140 (L) 150 - 393 K/uL LAB, [facility] MEAN PLATELET VOLUME NOT MEASURED 8.5 - 12.2 fL LAB, [facility] RBC, NUCLEATED 0.0 0.0 - 0.2 /100 WBC LAB, [facility] Performing Organization Address City/[facility] Phone Number LAB, [facility], [address] [place] [address] PT,INR,PTT (05/28/2018 1:08 AM) PT 14.3 (H) 11.9 - 14.2 sec [facility], [facility] INR 1.1 0.9 - 1.1 [facility] PTT 26.7 24.0 - 34.3 sec LAB, [facility] Performing Organization Address [facility] Phone Number LAB, [facility], [address] [place] [address] CHEM 7 (LYTES,BUN,CREA,GLUC) (05/28/2018 1:08 AM) BUN 3 (L) 7 - 22 mg/dL [facility], [facility] SODIUM 138 133 - 143 mmol/L [facility] POTASSIUM 2.9 (LL)Comment: Critical 3.5 - 5.0 mmol/L [facility], [facility] K result called to and read back by: TAM HICKMAN at: 05/28/2018 07:11:37 by : [id number] CHLORIDE 105 98 - 108 mmol/L [facility], [facility] CARBON DIOXIDE (CO2) 24 22 - 30 mmol/L [facility], [facility] GLUCOSE 100 (H) 70 - 99 mg/dL [facility], [facility] CREATININE SERUM 0.55 0.50 - 1.20 mg/dL [facility], [facility] ANION GAP 12 7 - 17 mmol/L [facility], [facility] BUN/CREA RATIO 5 [facility], [facility] OSMOLALITY (CALC) 284 278 - 305 mOsm/kg [facility], [facility] ESTIMATED GFR, NON >60 >60 mL/min/1.73sqM [facility], [facility] AMER ESTIMATED GFR, >60 >60 mL/min/1.73sqM LAB, [facility] Performing Organization Address [facility] Phone Number LAB, [facility], [address] [place] [address] HEMOGLOBIN & HEMATOCRIT (05/27/2018 11:50 PM) HEMOGLOBIN (HGB) 8.8 (L) 11.4 - 15.2 g/dL [facility] HEMATOCRIT (HCT) 26.3 (L) 34.9 - 44.3 % [facility], [facility] Performing Organization Address [facility] Phone Number LAB, [facility], [address] [place] [address] HEMOGLOBIN & HEMATOCRIT (05/27/2018 6:01 PM) HEMOGLOBIN (HGB) 9.3 (L) 11.4 - 15.2 g/dL [facility] HEMATOCRIT (HCT) 27.9 (L) 34.9 - 44.3 % [facility], [facility] Performing Organization Address [facility] Number LAB, [facility], [address] [place] [address] HEMOGLOBIN & HEMATOCRIT (05/27/2018 12:04 PM) HEMOGLOBIN (HGB) 8.8 (L) 11.4 - 15.2 g/dL [facility] HEMATOCRIT (HCT) 26.6 (L) 34.9 - 44.3 % [facility], [facility] Performing Organization Address [facility] Number LAB, [facility], [address] [place] [address] CBC,PLATELETS (05/27/2018 1:42 AM) WBC (WHITE BLOOD COUNT) 5.90 3.99 - 11.19 K/uL [facility], [facility] RBC 2.85 (L) 3.91 - 5.04 M/uL [facility], [facility] HEMOGLOBIN (HGB) 9.1 (L) 11.4 - 15.2 g/dL [facility], [facility] HEMATOCRIT (HCT) 27.1 (L) 34.9 - 44.3 % [facility], [facility] MEAN CELL VOLUME 95.1 79.6 - 97.7 fL LAB, [facility] Mean Cell HGB 31.9 25.9 - 33.9 pg LAB, [facility] MEAN CELL HGB CONCENTRATION 33.6 31.4 - 35.9 g/dL LAB, [facility] RBC DISTRIBUTION 15.9 (H) 10.8 - 14.9 % [facility] PLATELET COUNT 131 (L) 150 - 393 K/uL LAB, [facility] MEAN PLATELET VOLUME 10.0 8.5 - 12.2 fL LAB, [facility] RBC, NUCLEATED 0.0 0.0 - 0.2 /100 WBC LAB, [facility] Performing Organization Address [facility] Phone Number LAB, [facility], [address] [place] [address] PT,INR,PTT (05/27/2018 1:42 AM) PT 14.2 11.9 - 14.2 sec [facility], [facility] INR 1.1 0.9 - 1.1 [facility], [facility] PTT 27.1 24.0 - 34.3 sec LAB, [facility] Performing Organization Address [facility] Phone Number LAB, [facility], [address] [place] [address] CHEM 7 (LYTES,BUN,CREA,GLUC) (05/27/2018 1:42 AM) BUN 5 (L) 7 - 22 mg/dL [facility], [facility] SODIUM 134 133 - 143 mmol/L [facility], [facility] POTASSIUM 4.2 3.5 - 5.0 mmol/L [facility], [facility] CHLORIDE 104 98 - 108 mmol/L [facility], [facility] CARBON DIOXIDE (CO2) 20 (L) 22 - 30 mmol/L [facility], [facility] GLUCOSE 70 70 - 99 mg/dL [facility], [facility] CREATININE SERUM 0.64 0.50 - 1.20 mg/dL LAB, [facility] ANION GAP 14 7 - 17 mmol/L [facility], [facility] BUN/CREA RATIO 8 [facility], [facility] OSMOLALITY (CALC) 277 (L) 278 - 305 mOsm/kg LAB, [facility] ESTIMATED GFR, NON AMER >60 >60 mL/min/1.73sqM LAB, [facility] ESTIMATED GFR, >60 >60 mL/min/1.73sqM LAB, [facility] Performing Organization Address [facility] Number LAB, [facility], [address] [place] [address] HEMOGLOBIN & HEMATOCRIT (05/26/2018 11:31 PM) HEMOGLOBIN (HGB) 9.0 (L) 11.4 - 15.2 g/dL [facility], [facility] HEMATOCRIT (HCT) 27.5 (L) 34.9 - 44.3 % LAB, [facility] Performing Organization Address [facility] [facility] Phone Number LAB, [facility], [address] [place] [address] HEMOGLOBIN & HEMATOCRIT (05/26/2018 5:44 PM) HEMOGLOBIN (HGB) 9.3 (L) 11.4 - 15.2 g/dL LAB, [facility] HEMATOCRIT (HCT) 28.4 (L) 34.9 - 44.3 % [facility], [facility] Performing Organization Address [facility] Phone Number LAB, [facility], [address] [place] [id number] UA, TOTAL W/REFLEX TO CULTURE (05/26/2018 12:43 PM) APPEARANCE, URINE Clear Clear [facility], [facility] SPECIFIC GRAVITY, URINE 1.011 1.001 - 1.035 LAB, [facility] GLUCOSE, URINE Negative Negative mg/dL LAB, [facility] KETONES, URINE Moderate (A) Negative [facility], [facility] BLOOD, URINE Negative Negative LAB, [facility] PH URINE 5.0 5.0 - 7.0 LAB, [facility] PROTEIN, URINE Negative Negative mg/dL LAB, [facility] NITRITES, URINE Negative Negative LAB, [facility] LEUKOCYTE ESTERASE, URINE Small (A) Negative [facility], [facility] COLOR, URINE Yellow Yellow LAB, [facility] UROBILINOGEN, URINE 0.2 <2.0 EU/dL LAB, [facility] WBC, URINE 0-5 0 - 5 /HPF LAB, [facility] RBC, URINE 0-2 0 - 2 /HPF LAB, [facility] BACTERIA, URINE Absent Absent LAB, [facility] COMMENT, URINE None LAB, [facility] SQUAMOUS EPITHELIAL CELLS, URINE 1+ /HPF LAB, [facility] Specimen URINE - CLEAN CATCH Performing Organization Address [facility] Phone Number LAB, [facility], [address] [place] [id number] TYPE AND CROSS (05/26/2018 12:30 PM) ABO/RH(D) TYPE O POSITIVE [facility], [facility] ANTIBODY SCREEN NEGATIVE LAB, [facility] UNIT NUMBER [id number] LAB, [facility] BLOOD COMPONENT TYPE Red Cells, Leukoreduced LAB, [facility] PRODUCT CODE [id number] LAB, [facility] UNIT STATUS REL FROM ALLOC LAB, [facility] TRANSFUSION STATUS OK TO TRANSFUSE LAB, [facility] CROSSMATCH RESULT Electronically Compatible LAB, [facility] Performing Organization Address [facility] Phone Number LAB, [facility], [address] [place] [id number] HEMOGLOBIN & HEMATOCRIT (05/26/2018 11:49 AM) HEMOGLOBIN (HGB) 9.2 (L) 11.4 - 15.2 g/dL [facility], [facility] HEMATOCRIT (HCT) 28.1 (L) 34.9 - 44.3 % LAB, [facility] Performing Organization Address [facility] Phone Number LAB, [facility], [address] [place] [address] ECG (05/26/2018 9:53 AM) Performing Organization Address [facility] Phone Number RADIOLOGY URINE CULTURE (05/26/2018 5:30 AM) MICRO ACCESSION NUMBER [id number] LAB, [facility] SOURCE URINE-CLEAN CATCH: LAB, MICRO RESULT-CULT NO SIGNIFICANT GROWTH. Routine LAB, MICRO cultures are evaluated for significant uropathogens >10,000 CFU/mL. REPORT STATUS 05/27/2018 FINAL LAB, [facility] Specimen URINE - CLEAN CATCH Performing Organization Address [facility] Phone Number LAB, MICRO LAB, MICRO [facility], [address] [place] [phone], Blood Cultures processed at:[facility], [facility] [place] [address] BLOOD CULTURE, PERIPHERAL 2ND SITE (05/26/2018 5:29 AM) MICRO ACCESSION NUMBER [id number] LAB, MICRO SOURCE BLOOD, PERIPHERAL: Left Arm LAB, MICRO COMMENT Results may be compromised due to LAB, MICRO inappropriate blood volume. The optimal blood volume is 8-10 mls per aerobic/anaerobic blood culture bottle. Sent Aerobic Blood Bottle Only RESULT-CULT NO GROWTH DAY 5 OF 5 LAB, MICRO REPORT STATUS 05/31/2018 FINAL LAB, [facility] Specimen BLOOD CULTURE - PERIPHERAL Performing Organization Address [facility] Phone Number LAB, MICRO LAB, MICRO [facility], [address] [place] [phone], Blood Cultures processed at:, [facility], [address] [place] [id number] BLOOD CULTURE, PERIPHERAL 1ST SITE (05/26/2018 5:29 AM) MICRO ACCESSION NUMBER [id number] LAB, MICRO SOURCE BLOOD, PERIPHERAL: Right Arm LAB, MICRO RESULT-CULT NO GROWTH DAY 5 OF 5 LAB, MICRO REPORT STATUS 05/31/2018 FINAL LAB, [facility] Specimen BLOOD CULTURE - PERIPHERAL Performing Organization Address [facility] Phone Number LAB, MICRO LAB, MICRO [address] [address], Blood Cultures processed at:, [facility], [address], [place] [address] CBC,PLATELETS (05/26/2018 3:40 AM) WBC (WHITE BLOOD COUNT) 7.14 3.99 - 11.19 K/uL [facility], [facility] RBC 2.97 (L) 3.91 - 5.04 M/uL LAB, [facility] HEMOGLOBIN (HGB) 9.0 (L) 11.4 - 15.2 g/dL LAB, [facility] HEMATOCRIT (HCT) 27.5 (L) 34.9 - 44.3 % LAB, [facility] MEAN CELL VOLUME 92.6 79.6 - 97.7 fL LAB, [facility] Mean Cell HGB 30.3 25.9 - 33.9 pg LAB, [facility] MEAN CELL HGB CONCENTRATION 32.7 31.4 - 35.9 g/dL LAB, [facility] RBC DISTRIBUTION 15.9 (H) 10.8 - 14.9 % LAB, [facility] PLATELET COUNT 130 (L) 150 - 393 K/uL LAB, [facility] MEAN PLATELET VOLUME NOT MEASURED 8.5 - 12.2 fL LAB, [facility] RBC, NUCLEATED 0.0 0.0 - 0.2 /100 WBC LAB, [facility] Performing Organization Address [facility] Phone Number LAB, [facility], [address] [place] [phone] HEPATIC FUNCTION PANEL (05/26/2018 1:37 AM) ALBUMIN 2.6 (L) 3.5 - 5.0 g/dL [facility], [facility] BILIRUBIN, DIRECT 0.1 <0.3 mg/dL LAB, [facility] BILIRUBIN, TOTAL 1.1 <1.5 mg/dL LAB, [facility] ALKALINE PHOSPHATASE 47 32 - 126 U/L LAB, [facility] ALT 23 9 - 48 U/L LAB, [facility] AST 31 14 - 40 U/L LAB, [facility] PROTEIN, TOTAL 6.0 (L) 6.4 - 8.3 g/dL LAB, [facility] Performing Organization Address [facility] Phone Number LAB, [facility], [address] [place] [address] LACTATE, BLOOD (05/26/2018 1:37 AM) LACTATE, WHOLE BLOOD 0.6 0.5 - 1.6 mmol/L LAB, [facility] Performing Organization Address [facility] Phone Number LAB, [facility], [address] [place] [address] PT,INR,PTT (05/26/2018 1:37 AM) PT 14.7 (H) 11.9 - 14.2 sec [facility], [facility] INR 1.1 0.9 - 1.1 LAB, [facility] PTT 30.0 24.0 - 34.3 sec LAB, [facility] Performing Organization Address [facility] Phone Number LAB, [facility], [address] [place] [address] CHEM 7 (LYTES,BUN,CREA,GLUC) (05/26/2018 1:37 AM) BUN 5 (L) 7 - 22 mg/dL [facility], [facility] SODIUM 130 (L) 133 - 143 mmol/L LAB, [facility] POTASSIUM 3.4 (L) 3.5 - 5.0 mmol/L LAB, [facility] CHLORIDE 103 98 - 108 mmol/L LAB, [facility] CARBON DIOXIDE (CO2) 19 (L) 22 - 30 mmol/L LAB, [facility] GLUCOSE 76 70 - 99 mg/dL [facility], [facility] CREATININE SERUM 0.69 0.50 - 1.20 mg/dL LAB, [facility] ANION GAP 11 7 - 17 mmol/L [facility], [facility] BUN/CREA RATIO 7 LAB, [facility] OSMOLALITY (CALC) 269 (L) 278 - 305 mOsm/kg LAB, [facility] ESTIMATED GFR, NON AMER >60 >60 mL/min/1.73sqM LAB, [facility] ESTIMATED GFR, >60 >60 mL/min/1.73sqM LAB, [facility] Performing Organization Address [facility] Phone Number LAB, [facility], [address] [place] [address] in this encounter Visit Diagnoses Diagnosis Acute blood loss anemia - Primary Acute posthemorrhagic anemia Murmur, cardiac Undiagnosed cardiac murmurs Perforation of colon as colonoscopy complication Accidental puncture or laceration during procedure, not elsewhere classified Adrenal insufficiency Glucocorticoid deficiency Gastrointestinal hemorrhage associated with anorectal source GIB (gastrointestinal bleeding) Hemorrhage of gastrointestinal tract, unspecified GI bleed Hemorrhage of gastrointestinal tract, unspecified Administered Medications Active Administered Medications - up to 3 most recent administrations Medication Order MAR Action Action Date Dose Rate Site acetaminophen (TYLENOL) oral Given 06/11/2018 12:46 EST 650 mg solution 650 mg 650 mg, Oral, EVERY 4 HOURS NEEDED, Starting Sun06/11/18 at 1238, Until Discontinued, Mild Pain, Oral temp > 100.4?? F, Headaches, Maximum dose of acetaminophen is 4000 mg from all sources in 24 hours. acetaminophen (TYLENOL) tablet 650 mg Given 06/12/2018 09:24 EST 650 mg 650 mg, Oral, EVERY 4 HOURS NEEDED, Starting Sun06/11/18 at 1238, Until Discontinued, Mild Pain, Oral temp > 100.4?? F, Headaches, Maximum dose of acetaminophen is 4000 mg from all sources in 24 hours. alum/mag hydrox.-simethicone oral suspension 30 Given 06/04/2018 16:00 EST 30 mL mL 30 mL, Oral, EVERY 6 HOURS NEEDED, Starting Sun06/04/18 at 1517, Until Discontinued, Indigestion, Per 5 mL is equivalent to: (Alum-Mag Hydroxide 200-225 mg and Simethicone 20 mg) and (Alum-Mag Hydroxide 200-200 mg and Simethicone 20 mg) benzocaine-menthol (CEPACOL) 15-3.6 MG per Given 06/04/2018 11:09 EST 1 lozenge lozenge 1 lozenge 1 lozenge, Oral, NEEDED, Starting Sun05/31/18 at 0730, Until Discontinued, Cough, Max 8 lozenges/day Given 06/05/2018 22:45 EST 1 lozenge Given 06/12/2018 06:03 EST 1 lozenge bimatoprost (LUMIGAN) 0.01 % ophthalmic Given 06/12/2018 20:47 EST 1 drop solution 1 drop 1 drop, Both Eyes, DAILY AT BEDTIME, First dose on Lu 05/30/18 at 2100, Until Discontinued Given 06/13/2018 20:47 EST 1 drop Given 06/14/2018 21:39 EST 1 drop brimonidine (ALPHAGAN) 0.15 % ophthalmic Given 06/14/2018 08:53 EST 1 drop solution 1 drop 1 drop, Both Eyes, 2 TIMES DAILY, First dose on 05/26/18 at 0900, Until Discontinued Given 06/14/2018 21:38 EST 1 drop Given 06/15/2018 08:49 EST 1 drop budesonide (ENTOCORT EC) capsule EC 3 mg Given 06/13/2018 08:34 EST 3 mg 3 mg, Oral, DAILY EVERY MORNING, First dose on Sun05/27/18 at 0900, Until Discontinued Given 06/14/2018 08:52 EST 3 mg Given 06/15/2018 08:43 EST 3 mg calcium carbonate antacid tablet 1,296 mg Given 05/31/2018 04:05 EST 1,296 mg 1,296 mg (2 tablet), Oral, 4 TIMES DAILY NEEDED, Starting Sun05/31/18 at 0349, Until Discontinued, Indigestion carveDILOL (COREG) tablet 12.5 mg Given 06/14/2018 21:49 EST 12.5 mg 12.5 mg, Oral, EVERY 12 HOURS, First dose on Sun06/14/18 at 2100, Until Discontinued Given 06/15/2018 08:43 EST 12.5 mg dextrose 50% injection 25 g Given 05/31/2018 06:37 EST 25 g 25 g, Intravenous, NEEDED, Starting Sun05/31/18 at 0633, Until Discontinued, Blood glucose <80 mg/dL eucerin cream 1 Application Given 06/13/2018 14:43 EST 1 Application 1 Application, Topical, NEEDED, Starting Lu 06/13/18 at 0917, Until Discontinued, Dry Skin, Apply to dry skin heparin injection 5,000 Units Given 06/14/2018 08:51 EST 5,000 Units Left Abdomen 5,000 Units, Subcutaneous, EVERY 8 HOURS (0800/1600/2200), First dose on Sun06/03/18 at 1600, Until Discontinued Given 06/14/2018 21:39 EST 5,000 Units Abdomen Given 06/15/2018 08:43 EST 5,000 Units Abdomen hydrocortisone (CORTEF) tablet 10 mg Given 06/13/2018 08:34 EST 10 mg 10 mg, Oral, DAILY EVERY MORNING, First dose on Sun06/10/18 at 0900, Until Discontinued Given 06/14/2018 08:52 EST 10 mg Given 06/15/2018 08:46 EST 10 mg hydrocortisone (CORTEF) tablet 5 mg Given 06/12/2018 16:14 EST 5 mg 5 mg, Oral, EVERY 24 HOURS, First dose on Sun06/11/18 at 1500, Until Discontinued Given 06/13/2018 14:52 EST 5 mg Given 06/14/2018 16:26 EST 5 mg hydroxychloroquine (PLAQUENIL) tablet 200 mg Given 06/13/2018 08:34 EST 200 mg 200 mg, Oral, DAILY, First dose on Sun05/26/18 at 0900, Until Discontinued Given 06/14/2018 08:52 EST 200 mg Given 06/15/2018 08:47 EST 200 mg levothyroxine (SYNTHROID) tablet 75 mcg Given 06/13/2018 05:55 EST 75 mcg 75 mcg, Oral, DAILY BEFORE BREAKFAST, First dose on Sun05/31/18 at 0600, Until Discontinued, Patient to use home supply. Pharmacy verified patient's home medication. Given 06/14/2018 06:19 EST 75 mcg Given 06/15/2018 06:43 EST 75 mcg ondansetron (ZOFRAN) tablet 4 mg Given 06/15/2018 11:16 EST 4 mg 4 mg, Oral, EVERY 6 HOURS NEEDED, Starting 06/11/18 at 0945, Until Discontinued, Nausea / Vomiting ondansetron 4mg/2ml (ZOFRAN) injection 4 mg 4 mg, Intravenous, EVERY 6 HOURS NEEDED, Starting 06/11/18 at 0945, Until Discontinued, Nausea / Vomiting oxyCODONE (ROXICODONE) tablet 5 mg Given 05/29/2018 08:56 EST 5 mg 5 mg, Oral, EVERY 6 HOURS NEEDED, Starting 05/28/18 at 1751, Until Discontinued, Moderate Pain, Severe Pain Given 05/29/2018 21:04 EST 5 mg Given 05/30/2018 10:49 EST 5 mg polyethylene glycol (MIRALAX) packet 17 g Given 06/10/2018 13:18 EST 17 g 17 g, Oral, DAILY, First dose on Sun06/10/18 at 1330, Until Discontinued Given 06/13/2018 08:31 EST 17 g potassium bicarbonate (KLYTE) effervescent Given 06/14/2018 14:56 EST 50 mEq tablet 50 mEq 50 mEq, Oral, DAILY, First dose on Sun06/14/18 at 1330, Until Discontinued, Effervescent tablet; Must be dissolved in the amount of diluent recommended by the workers compensation coordinator. Solution should be sipped slowly, over 5-10 minutes. Given 06/15/2018 10:35 EST 50 mEq prochlorperazine (COMPAZINE) injection 5 mg Given 06/06/2018 08:51 EST 5 mg 5 mg, Intravenous, 4 TIMES DAILY NEEDED, Starting 06/05/18 at 0855, Until Discontinued, Nausea / Vomiting, Dilute to a 1 mg/mL solution with NS; give 5 mg/minute. Given 06/06/2018 12:53 EST 5 mg Given 06/07/2018 03:59 EST 5 mg prochlorperazine (COMPAZINE) tablet 10 mg Given 06/09/2018 13:36 EST 10 mg 10 mg, Oral, 4 TIMES DAILY NEEDED, Starting 06/05/18 at 0855, Until Discontinued, Nausea / Vomiting sodium chloride 0.9% IV solution $$New Bag$$ 06/10/2018 05:02 EST 250 mL 20 mL/hr 250 mL Intravenous, at 20 mL/hr, NEEDED, Starting 05/25/18 at 2323, Until Discontinued, Carrier Fluid - See Admin. Inst, 250mL 0.9NS to be used as carrier fluid for intermittent small volume or piggyback medication administration as needed. Infusion rate of the carrier fluid should be set at 20 mL/hr unless the rate as the intermittent medication is less than 20 mL/hr. For intermittent medications with a rate less than 20 mL/hr set the carrier fluid at that rate of the intermittent or piggy back medication. Rate/Dose Verify 06/10/2018 05:03 EST 20 mL/hr Rate/Dose Verify 06/10/2018 05:34 EST 20 mL/hr timolol maleate (TIMOPTIC) 0.5 % ophthalmic Given 06/13/2018 08:41 EST 1 drop solution 1 drop 1 drop, Both Eyes, DAILY, First dose on 05/27/18 at 0900, Until Discontinued Given 06/14/2018 08:53 EST 1 drop Given 06/15/2018 08:50 EST 1 drop witch steve-glycerin (TUCKS) pad 1 Application 1 Application, Topical, NEEDED, Starting 06/12/18 at 1023, Until Discontinued, hemrrhoids Inactive Administered Medications - up to 3 most recent administrations Medication Order MAR Action Action Date Dose Rate Site acetaminophen (TYLENOL) tablet 650 Given 05/29/2018 00:00 EST 650 mg mg 650 mg, Oral, EVERY 4 HOURS NEEDED, Starting 05/25/18 at 2325, Until 06/03/18 at 1746, Mild Pain, Maximum dose of acetaminophen is 4000 mg from all sources in 24 hours. Given 05/29/2018 08:56 EST 650 mg Given 05/30/2018 20:51 EST 650 mg bimatoprost (LUMIGAN) 0.01 % ophthalmic Given 05/26/2018 23:02 EST 1 drop solution 1 drop 1 drop, Both Eyes, DAILY AT BEDTIME, First dose on Sun05/26/18 at 2300, Until Discontinued Given 05/27/2018 21:05 EST 1 drop Given 05/28/2018 21:40 EST 1 drop budesonide (ENTOCORT EC) capsule EC 6 mg Given 05/26/2018 08:15 EST 3 mg 6 mg, Oral, DAILY EVERY MORNING, First dose on Sun05/26/18 at 0900, Until Discontinued ceFEPIme (MAXIPIME) 2 g in dextrose $$New Bag$$ 05/29/2018 00:40 EST 2 g 200 mL/hr 100 ml premix IVPB 2 g, Intravenous, Administer over 0.5 Hours, ONCE, 1 dose, Sun05/29/18 at 0015, Infuse STAT doses over 30 minutes. Infuse other doses over 4 hours. Rate/Dose Verify 05/29/2018 00:40 EST 200 mL/hr ceFEPIme (MAXIPIME) 2 g in dextrose $$New Bag$$ 06/03/2018 00:51 EST 2 g 25 mL/hr 100 ml premix IVPB 2 g, Intravenous, Administer over 4 Hours, EVERY 12 HOURS, 28 doses, First dose on Sun05/29/18 at 1200, Last dose on Sun06/12/18 at 0000, Infuse STAT doses over 30 minutes. Infuse other doses over 4 hours. $$New Bag$$ 06/03/2018 10:46 EST 2 g 25 mL/hr $$New Bag$$ 06/04/2018 00:21 EST 2 g 25 mL/hr ciprofloxacin (CIPRO) tablet 500 mg Given 06/04/2018 14:01 EST 500 mg 500 mg, Oral, EVERY 12 HOURS LATE AM & PM, 18 doses, First dose on Sun06/04/18 at 1030, Last dose on Sun06/12/18 at 2200, Avoid antacid and iron administration for 1 hour before and 2 hours after dose. Take on an empty stomach. ciprofloxacin in D5W (CIPRO) 400 $$New Bag$$ 06/05/2018 00:31 EST 400 mg 200 mL/hr mg in dextrose 5% premix IVPB 400 mg, Intravenous, Administer over 60 Minutes, EVERY 24 HOURS, 1 dose, First dose on Sun06/04/18 at 2330 ciprofloxacin in D5W (CIPRO) 400 $$New Bag$$ 06/11/2018 00:36 EST 400 mg 200 mL/hr mg in dextrose 5% premix IVPB 400 mg, Intravenous, Administer over 60 Minutes, EVERY 12 HOURS NON-STANDARD, 13 doses, First dose on Sun06/05/18 at 1100, Last dose on Sun06/11/18 at 1300 Rate/Dose Verify 06/11/2018 00:36 EST 200 mL/hr $$New Bag$$ 06/11/2018 12:40 EST 400 mg 200 mL/hr clindamycin (CLEOCIN) 900 mg in $$New Bag$$ 06/02/2018 22:21 EST 900 mg 100 mL/hr normal saline 50 ml premix IVPB 900 mg, Intravenous, Administer over 30 Minutes, EVERY 8 HOURS, First dose on Sun06/02/18 at 1400, Until Discontinued Rate/Dose Verify 06/02/2018 22:22 EST 100 mL/hr $$New Bag$$ 06/03/2018 06:51 EST 900 mg 100 mL/hr cosyntropin (CORTROSYN) injection 0.25 mg Given 06/09/2018 05:16 EST 0.25 mg 0.25 mg, Intravenous, ONCE, 1 dose, [facility] 06/09/18 at 0500, Administer after initial Cortisol level is drawn. dextrose 5% 1,000 mL with sodium $$New Bag$$ 05/31/2018 13:00 EST 75 mL/hr bicarbonate 75 mEq IV solution Intravenous, CONTINUOUS, Starting Sun05/31/18 at 1045, Until Sun05/31/18 at 1433 Rate/Dose Verify 05/31/2018 13:00 EST 75 mL/hr Rate/Dose Verify 05/31/2018 14:00 EST 75 mL/hr dextrose 5% and sodium chloride Rate/Dose Verify 05/31/2018 06:49 EST 100 mL/hr 0.9% IV solution Intravenous, at 100 mL/hr, CONTINUOUS, Starting Sun05/31/18 at 0645, Until Sun05/31/18 at 1035 Handoff 05/31/2018 07:31 EST 100 mL/hr Restarted 05/31/2018 07:49 EST 100 mL/hr dextrose 50% injection 1 dose, Starting Sun05/31/18 at 0633, Until Sun05/31/18 at 0637, Created by cabinet override fentaNYL (SUBLIMAZE) injection 25 mcg Given 05/28/2018 17:52 EST 25 mcg 25 mcg, Intravenous, Administer over 2 Minutes, ONCE, 1 dose, [facility] 05/28/18 at 1830 fentaNYL (SUBLIMAZE) injection 50 mcg Given 05/28/2018 17:24 EST 25 mcg 50 mcg, Intravenous, Administer over 2 Minutes, ONCE, 1 dose, [facility] 05/28/18 at 1745 hydrocortisone (CORTEF) tablet 5 mg Given 06/09/2018 18:40 EST 5 mg 5 mg, Oral, DAILY WITH DINNER, First dose on 06/09/18 at 1700, Until Discontinued Given 06/10/2018 17:09 EST 5 mg iohexol (OMNIPAQUE) 300 MG/ML vial Given - Radiology 05/29/2018 13:30 EST 50 mL 50 mL 50 mL, Oral, ONCE, 1 dose, 05/29/18 at 1330, Mix with 950ml of water iohexol (OMNIPAQUE) 300 MG/ML vial Given - Radiology 06/06/2018 15:15 EST 50 mL 50 mL 50 mL, Oral, ONCE, 1 dose, Lu 06/06/18 at 1515, Mix with 950ml of water iohexol (OMNIPAQUE) 350 MG/ML Given - Radiology 05/29/2018 13:30 EST 90 mL injection 1-171 mL 1-171 mL, Intravenous, ONCE, 1 dose, 05/29/18 at 1330, CT Procedure iohexol (OMNIPAQUE) 350 MG/ML Given - Radiology 06/06/2018 15:15 EST 60 mL injection 1-171 mL 1-171 mL, Intravenous, ONCE, 1 dose, Lu 06/06/18 at 1515, CT Procedure lactated ringers IV solution $$New Bag$$ 06/04/2018 13:27 EST 1,000 mL 999 mL/hr 1,000 mL 1,000 mL, Intravenous, ONCE, 1 dose, Sun06/04/18 at 1330 Rate/Dose Change 06/04/2018 13:57 EST 1,000 mL 250 mL/hr Rate/Dose Change 06/04/2018 16:04 EST 1,000 mL 500 mL/hr levothyroxine (SYNTHROID) tablet 75 mcg Given 05/28/2018 08:29 EST 75 mcg 75 mcg, Oral, DAILY BEFORE BREAKFAST, First dose on Sun05/26/18 at 0600, Until Discontinued, Patient can only take Brand Synthroid. Given 05/29/2018 06:25 EST 75 mcg Given 05/30/2018 05:41 EST 75 mcg magnesium sulfate 4 g in sterile water Restarted 05/31/2018 12:33 EST 25 mL/hr 100 ml premix IVPB 4 g, Intravenous, Administer over 4 Hours, ONCE, 1 dose, Sun05/31/18 at 0930 Restarted 05/31/2018 12:50 EST 25 mL/hr Rate/Dose Verify 05/31/2018 14:00 EST 25 mL/hr magnesium sulfate 4 g in sterile $$New Bag$$ 06/05/2018 09:11 EST 4 g 25 mL/hr water 100 ml premix IVPB 4 g, Intravenous, Administer over 4 Hours, ONCE, 1 dose, Sun06/05/18 at 0830 magnesium sulfate 4 g in sterile $$New Bag$$ 06/12/2018 09:32 EST 4 g 25 mL/hr water 100 ml premix IVPB 4 g, Intravenous, Administer over 4 Hours, ONCE, 1 dose, Sun06/12/18 at 0900 Rate/Dose Verify 06/12/2018 09:33 EST 25 mL/hr Rate/Dose Verify 06/12/2018 10:49 EST 25 mL/hr metoprolol (LOPRESSOR) tablet 25 mg Given 06/12/2018 20:45 EST 25 mg 25 mg, Oral, EVERY 12 HOURS, First dose on Sun06/11/18 at 0945, Until Discontinued Given 06/13/2018 08:31 EST 25 mg Given 06/13/2018 20:45 EST 25 mg metoprolol (LOPRESSOR) tablet 50 mg Given 06/14/2018 08:51 EST 50 mg 50 mg, Oral, EVERY 12 HOURS, First dose on Sun06/14/18 at 0900, Until Discontinued metoprolol succinate (TOPROL-XL) tablet XL 50 mg Given 05/26/2018 00:17 EST 50 mg 50 mg, Oral, EVERY 12 HOURS, First dose on 05/25/18 at 2345, Until Discontinued metronidazole (FLAGYL) 500 mg in $$New Bag$$ 06/02/2018 07:38 EST 500 mg 200 mL/hr NaCl premix IVPB 500 mg, Intravenous, at 200 mL/hr, Administer over 30 Minutes, EVERY 8 HOURS, 42 doses, First dose on Sun05/29/18 at 1400, Last dose on Sun06/12/18 at 0900 Rate/Dose Verify 06/02/2018 07:38 EST 200 mL/hr Rate/Dose Change 06/02/2018 08:08 EST 5 mL/hr metronidazole (FLAGYL) 500 mg in $$New Bag$$ 06/03/2018 20:10 EST 500 mg 200 mL/hr NaCl premix IVPB 500 mg, Intravenous, at 200 mL/hr, Administer over 30 Minutes, EVERY 8 HOURS NON-STANDARD, First dose on Sun06/03/18 at 1230, Until Discontinued $$New Bag$$ 06/04/2018 04:39 EST 500 mg 200 mL/hr Rate/Dose Verify 06/04/2018 05:00 EST 200 mL/hr metronidazole (FLAGYL) 500 mg in $$New Bag$$ 06/04/2018 23:44 EST 500 mg 200 mL/hr NaCl premix IVPB 500 mg, Intravenous, at 200 mL/hr, Administer over 30 Minutes, EVERY 8 HOURS, 1 dose, First dose on Sun06/04/18 at 2330 metronidazole (FLAGYL) 500 mg in $$New Bag$$ 06/11/2018 05:32 EST 500 mg 200 mL/hr NaCl premix IVPB 500 mg, Intravenous, at 200 mL/hr, Administer over 30 Minutes, EVERY 8 HOURS, 20 doses, First dose on Sun06/05/18 at 1400, Last dose on Sun06/11/18 at 2200 $$New Bag$$ 06/11/2018 13:47 EST 500 mg 200 mL/hr $$New Bag$$ 06/11/2018 21:15 EST 500 mg 200 mL/hr metronidazole (FLAGYL) tablet 500 mg Given 06/04/2018 14:01 EST 500 mg 500 mg, Oral, EVERY 8 HOURS, 24 doses, First dose on Sun06/04/18 at 1400, Last dose on Sun06/12/18 at 0600 ondansetron (ZOFRAN) tablet 4 mg Given 06/02/2018 11:49 EST 4 mg 4 mg, Oral, EVERY 6 HOURS, First dose on Sun05/31/18 at 1200, Until Discontinued ondansetron (ZOFRAN) tablet 4 mg Given 06/10/2018 12:18 EST 4 mg 4 mg, Oral, EVERY 6 HOURS, First dose on Sun06/05/18 at 1200, Until Discontinued Given 06/10/2018 17:12 EST 4 mg Given 06/11/2018 06:03 EST 4 mg ondansetron 4mg/2ml (ZOFRAN) injection 4 mg Given 05/29/2018 14:49 EST 4 mg 4 mg, Intravenous, EVERY 6 HOURS NEEDED, Starting 05/25/18 at 2325, Until Sun05/31/18 at 1035, Nausea / Vomiting Given 05/31/2018 01:30 EST 4 mg Given 05/31/2018 07:49 EST 4 mg ondansetron 4mg/2ml (ZOFRAN) injection 4 mg Given 06/02/2018 17:31 EST 4 mg 4 mg, Intravenous, EVERY 6 HOURS, First dose on Sun05/31/18 at 1200, Until Discontinued Given 06/03/2018 00:49 EST 4 mg Given 06/03/2018 05:18 EST 4 mg ondansetron 4mg/2ml (ZOFRAN) injection 4 mg Given 06/09/2018 18:13 EST 4 mg 4 mg, Intravenous, EVERY 6 HOURS, First dose on Sun06/05/18 at 1200, Until Discontinued Given 06/09/2018 23:05 EST 4 mg Given 06/10/2018 04:55 EST 4 mg pantoprazole (PROTONIX) injection 40 mg Given 05/27/2018 17:10 EST 40 mg 40 mg, Intravenous, 2 TIMES DAILY, First dose on Sun05/26/18 at 0900, Until Discontinued, Dilute each 40 mg vial with 10 mL of NS. All bolus doses, whether 40 mg or 80 mg, should be administered over at least two minutes. Given 05/28/2018 08:30 EST 40 mg Given 05/28/2018 18:42 EST 40 mg peg 3350 w/electrolytes (GOLYTELY, NULYTELY) Given 05/27/2018 17:11 EST 4,000 mL 236 g oral solution 4,000 mL 4,000 mL (4 L), Oral, ONCE, 1 dose, 05/27/18 at 1600 potassium bicarbonate (KLYTE) effervescent Given 06/15/2018 08:42 EST 50 mEq tablet 50 mEq 50 mEq, Oral, ONCE, 1 dose, 06/15/18 at 0700, Effervescent tablet; Must be dissolved in the amount of diluent recommended by the workers compensation coordinator. Solution should be sipped slowly, over 5-10 minutes. potassium chloride (K-DUR, KLOR-CON M20) tablet Given 05/26/2018 06:23 EST 40 mEq ER 40 mEq 40 mEq, Oral, ONCE, 1 dose, 05/26/18 at 0600 potassium chloride (K-DUR, KLOR-CON M20) tablet Given 05/28/2018 08:34 EST 40 mEq ER 40 mEq 40 mEq, Oral, EVERY 4 HOURS, 2 doses, First dose on Sun05/28/18 at 1000, Last dose on Sun05/28/18 at 1400, Swallow tablets whole; do not crush, chew, or suck on tablet. Tablet may also be broken in half and each half swallowed separately. Given 05/28/2018 12:56 EST 40 mEq potassium chloride 10 mEq in Rate/Dose Change 05/30/2018 12:39 EST 5 mL/hr sterile water 100 ml premix IVPB 10 mEq, Intravenous, Administer over 60 Minutes, EVERY 2 HOURS, 2 doses, First dose on Sun05/30/18 at 1030, Last dose on Sun05/30/18 at 1230 Rate/Dose Change 05/30/2018 12:42 EST 100 mL/hr Rate/Dose Verify 05/30/2018 12:56 EST 100 mL/hr potassium chloride 10 mEq in $$New Bag$$ 05/31/2018 08:59 EST 10 mEq 100 mL/hr sterile water 100 ml premix IVPB 10 mEq, Intravenous, Administer over 60 Minutes, EVERY 2 HOURS, 2 doses, First dose on Sun05/31/18 at 0645, Last dose on Sun05/31/18 at 0800 Rate/Dose Verify 05/31/2018 09:00 EST 100 mL/hr $$New Bag$$ 05/31/2018 09:53 EST 10 mEq 100 mL/hr potassium chloride 10 mEq in $$New Bag$$ 05/31/2018 13:37 EST 10 mEq 100 mL/hr sterile water 100 ml premix IVPB 10 mEq, Intravenous, Administer over 60 Minutes, EVERY 2 HOURS, 2 doses, First dose on Sun05/31/18 at 1045, Last dose on Sun05/31/18 at 1230 Rate/Dose Verify 05/31/2018 13:37 EST 100 mL/hr Rate/Dose Verify 05/31/2018 14:00 EST 100 mL/hr potassium chloride 10 mEq in $$New Bag$$ 06/01/2018 10:04 EST 10 mEq 100 mL/hr sterile water 100 ml premix IVPB 10 mEq, Intravenous, Administer over 60 Minutes, EVERY 2 HOURS, 2 doses, First dose on 06/01/18 at 0800, Last dose on 06/01/18 at 1000 potassium chloride 10 mEq in $$New Bag$$ 06/01/2018 09:14 EST 10 mEq 100 mL/hr sterile water 100 ml premix IVPB 10 mEq, Intravenous, Administer over 60 Minutes, EVERY 2 HOURS, 2 doses, First dose on 06/01/18 at 0700, Last dose on 06/01/18 at 0800 $$New Bag$$ 06/01/2018 11:15 EST 10 mEq 100 mL/hr potassium chloride 10 mEq in $$New Bag$$ 06/01/2018 13:22 EST 10 mEq 100 mL/hr sterile water 100 ml premix IVPB 10 mEq, Intravenous, Administer over 60 Minutes, EVERY 1 HOUR, 3 doses, First dose on 06/01/18 at 1300, Last dose on 06/01/18 at 1500 $$New Bag$$ 06/01/2018 14:52 EST 10 mEq 100 mL/hr potassium chloride 10 mEq in Rate/Dose Verify 06/02/2018 11:14 EST 100 mL/hr sterile water 100 ml premix IVPB 10 mEq, Intravenous, Administer over 60 Minutes, EVERY 1 HOUR, 4 doses, First dose on 06/02/18 at 0900, Last dose on 06/02/18 at 1200 $$New Bag$$ 06/02/2018 11:51 EST 10 mEq 100 mL/hr Restarted 06/02/2018 11:51 EST 100 mL/hr potassium chloride 10 mEq in $$New Bag$$ 06/03/2018 05:22 EST 10 mEq 100 mL/hr sterile water 100 ml premix IVPB 10 mEq, Intravenous, Administer over 60 Minutes, ONCE, 1 dose, Sun06/03/18 at 0445 potassium chloride 10 mEq in $$New Bag$$ 06/04/2018 12:24 EST 10 mEq 100 mL/hr sterile water 100 ml premix IVPB 10 mEq, Intravenous, Administer over 60 Minutes, EVERY 2 HOURS, 3 doses, First dose on Sun06/04/18 at 1100, Last dose on Sun06/04/18 at 1500 $$New Bag$$ 06/04/2018 13:56 EST 10 mEq 100 mL/hr $$New Bag$$ 06/04/2018 14:58 EST 10 mEq 100 mL/hr potassium chloride 10 mEq in $$New Bag$$ 06/05/2018 08:25 EST 10 mEq 100 mL/hr sterile water 100 ml premix IVPB 10 mEq, Intravenous, Administer over 60 Minutes, EVERY 2 HOURS, 3 doses, First dose on Sun06/05/18 at 0830, Last dose on Sun06/05/18 at 1230 $$New Bag$$ 06/05/2018 09:35 EST 10 mEq 100 mL/hr $$New Bag$$ 06/05/2018 10:56 EST 10 mEq 100 mL/hr potassium chloride 10 mEq in Rate/Dose Change 06/09/2018 16:29 EST 50 mL/hr sterile water 100 ml premix IVPB 10 mEq, Intravenous, Administer over 60 Minutes, EVERY 2 HOURS, 3 doses, First dose on Sun06/09/18 at 0800, Last dose on Sun06/09/18 at 1200 Rate/Dose Verify 06/09/2018 16:33 EST 10 mEq 50 mL/hr Rate/Dose Change 06/09/2018 18:29 EST 5 mL/hr potassium chloride 10 mEq in Rate/Dose Verify 06/12/2018 09:56 EST 100 mL/hr sterile water 100 ml premix IVPB 10 mEq, Intravenous, Administer over 60 Minutes, EVERY 2 HOURS, 2 doses, First dose on Sun06/12/18 at 0900, Last dose on Sun06/12/18 at 1100 Rate/Dose Verify 06/12/2018 10:49 EST 100 mL/hr $$New Bag$$ 06/12/2018 10:49 EST 10 mEq 100 mL/hr potassium chloride 10 mEq in $$New Bag$$ 06/13/2018 14:44 EST 10 mEq 100 mL/hr sterile water 100 ml premix IVPB 10 mEq, Intravenous, at 100 mL/hr, Administer over 60 Minutes, EVERY 2 HOURS, 2 doses, First dose on Lu 06/13/18 at 1200, Last dose on Lu 06/13/18 at 1400 potassium chloride 10 mEq in $$New Bag$$ 06/13/2018 20:45 EST 10 mEq 50 mL/hr sterile water 100 ml premix IVPB 10 mEq, Intravenous, Administer over 60 Minutes, ONCE, 1 dose, Lu 06/13/18 at 1930 Rate/Dose Verify 06/13/2018 20:46 EST 50 mL/hr Restarted 06/13/2018 21:14 EST 50 mL/hr prochlorperazine (COMPAZINE) injection 5 mg Given 05/31/2018 16:36 EST 5 mg 5 mg, Intravenous, 2 TIMES DAILY NEEDED, Starting 05/31/18 at 1623, Until 06/01/18 at 1038, Refractory Nausea Vomiting, Dilute to a 1 mg/mL solution with NS; give 5 mg/minute. Given 05/31/2018 22:49 EST 5 mg Given 06/01/2018 09:31 EST 5 mg prochlorperazine (COMPAZINE) injection 5 mg Given 06/02/2018 20:16 EST 5 mg 5 mg, Intravenous, EVERY 6 HOURS NEEDED, Starting 06/01/18 at 1045, Until 06/03/18 at 0917, Refractory Nausea Vomiting, Dilute to a 1 mg/mL solution with NS; give 5 mg/minute. Given 06/03/2018 03:10 EST 5 mg prochlorperazine (COMPAZINE) injection 5 mg Given 06/03/2018 10:42 EST 5 mg 5 mg, Intravenous, EVERY 6 HOURS, First dose on 06/03/18 at 1200, Until Discontinued, Dilute to a 1 mg/mL solution with NS; give 5 mg/minute. Given 06/03/2018 18:38 EST 5 mg Given 06/04/2018 05:12 EST 5 mg prochlorperazine (COMPAZINE) injection 5 mg Given 06/04/2018 13:23 EST 5 mg 5 mg, Intravenous, 4 TIMES DAILY NEEDED, Starting 06/04/18 at 1015, Until 06/05/18 at 0747, Nausea / Vomiting, Dilute to a 1 mg/mL solution with NS; give 5 mg/minute. Given 06/04/2018 22:56 EST 5 mg prochlorperazine (COMPAZINE) tablet 5 mg Given 05/27/2018 17:10 EST 5 mg 5 mg, Oral, 2 TIMES DAILY NEEDED, Starting 05/27/18 at 1035, Until Sun05/31/18 at 1624, Refractory Nausea Vomiting promethazine (PHENERGAN) injection 12.5 mg Given 05/31/2018 05:06 EST 12.5 mg 12.5 mg, Intravenous, ONCE, 1 dose, Sun05/31/18 at 0500, If given via IV route: dilute dose with 10mL normal saline and inject through a running IV or line over 5 minutes OR if no active IV or line is saline-dwelled dilute dose with 20mL normal saline and administer over 5 minutes. AVOID Intra-arterial administration; necrosis & gangrene have resulted. Hand, wrist or foot veins SHOULD BE AVOIDED. sodium chloride (PF) 0.9% injection 1-100 mL Given 05/29/2018 13:19 EST 20 mL 1-100 mL, Intravenous, ONCE NEEDED, 1 dose, Starting 05/29/18 at 1319, Until Sun05/29/18 at 1319, Flush, CT Procedure sodium chloride (PF) 0.9% injection 1-100 mL Given 06/06/2018 15:08 EST 20 mL 1-100 mL, Intravenous, ONCE NEEDED, 1 dose, Starting Lu 06/06/18 at 1508, Until Lu 06/06/18 at 1508, Flush, CT Procedure sodium chloride 0.9% IV $$New Bag$$ 05/29/2018 00:13 EST 1,000 mL 999 mL/hr solution 1,000 mL 1,000 mL, Intravenous, ONCE, 1 dose, 05/29/18 at 0045 Rate/Dose Verify 05/29/2018 00:43 EST 999 mL/hr Rate/Dose Change 05/29/2018 01:07 EST 5 mL/hr sodium chloride 0.9% IV solution Rate/Dose Verify 05/26/2018 04:00 EST 50 mL/hr Intravenous, at 50 mL/hr, CONTINUOUS, Starting 05/25/18 at 2330, Until 05/26/18 at 0729 Rate/Dose Verify 05/26/2018 09:24 EST 50 mL/hr Rate/Dose Verify 05/26/2018 16:03 EST 50 mL/hr sodium chloride 0.9% IV solution $$New Bag$$ 05/26/2018 17:59 EST 50 mL/hr Intravenous, at 50 mL/hr, CONTINUOUS, Starting [employer] 05/26/18 at 1400, Until [facility] 05/26/18 at 2159 Rate/Dose Verify 05/26/2018 17:59 EST 50 mL/hr Rate/Dose Verify 05/26/2018 22:00 EST 50 mL/hr sodium chloride 0.9% IV solution Rate/Dose Verify 05/27/2018 17:16 EST 50 mL/hr Intravenous, at 50 mL/hr, CONTINUOUS, Starting Sun05/27/18 at 0615, Until Sun05/27/18 at 1614 Rate/Dose Verify 05/27/2018 17:50 EST 50 mL/hr Rate/Dose Verify 05/27/2018 17:58 EST 50 mL/hr sodium chloride 0.9% IV solution Rate/Dose Verify 05/27/2018 18:23 EST 50 mL/hr Intravenous, at 50 mL/hr, CONTINUOUS, Starting Sun05/27/18 at 1800, Until Tu05/28/18 at 1759 $$New Bag$$ 05/28/2018 08:49 EST 50 mL/hr $$New Bag$$ 05/28/2018 16:02 EST sodium chloride 0.9% IV solution Rate/Dose Verify 05/31/2018 02:54 EST 125 mL/hr Intravenous, at 125 mL/hr, CONTINUOUS, Starting Sun05/29/18 at 0000, Until Sun05/31/18 at 0634 Rate/Dose Verify 05/31/2018 05:06 EST 125 mL/hr $$New Bag$$ 05/31/2018 05:40 EST 125 mL/hr timolol maleate (TIMOPTIC) 0.5 % ophthalmic Given 05/26/2018 08:13 EST 1 drop solution 1 drop 1 drop, Both Eyes, 2 TIMES DAILY, First dose on [employer] 05/26/18 at 0900, Until Discontinued vancomycin (VANCOCIN) 1,000 mg $$New Bag$$ 05/29/2018 01:14 EST 1,000 mg 100 mL/hr in dextrose 200 ml premix IVPB 1,000 mg, Intravenous, Administer over 120 Minutes, ONCE, 1 dose, 05/29/18 at 0030 Rate/Dose Verify 05/29/2018 01:15 EST 100 mL/hr Restarted 05/29/2018 03:18 EST 100 mL/hr vancomycin (VANCOCIN) 1,000 mg $$New Bag$$ 05/30/2018 02:08 EST 1,000 mg 100 mL/hr in dextrose 200 ml premix IVPB 1,000 mg, Intravenous, Administer over 120 Minutes, EVERY 24 HOURS, First dose on Lu 05/30/18 at 0100, Until Discontinued Rate/Dose Verify 05/30/2018 02:10 EST 100 mL/hr vitamin K (phytonadione/AQUA MEPHYTON) oral Given 06/02/2018 12:55 EST 2.5 mg solution 2.5 mg 2.5 mg, Oral, ONCE, 1 dose, 06/02/18 at 1215 in this encounter
--- OUTSIDE RECORDS SUMMARY | 2018-08-09 20:58 | XMS RPT_ITS ---
:1940 Author Organization OHIP Support Name Relationship Address Phone HARSHJamiMICHELLE HINOJOSAICE Unavailable [address] + [place] [address] R Unavailable Unavailable Unavailable RM ESPINOZA Unavailable [address] + [place] [address] AMSTASHISH EMBER Unavailable [address] + [place] [address] RM ESPINOZA Unavailable [address] + [place] [address] PAMELA ESPINOZA Unavailable Unavailable Unavailable AMSTASHISH, EMBER Unavailable [address] + [place] [address] R Unavailable Unavailable Unavailable RM ESPINOZA Unavailable [address] + [place] [address] AMSTUTZ, EMBER Unavailable [address] + [place] [address] R Unavailable Unavailable Unavailable RM ESPINOZA Unavailable [address] + [place] [address] AMSTUTZ EMBER Unavailable [address] + [place] [address] R Unavailable Unavailable Unavailable RM ESPINOZA Unavailable [address] + [place] [address] AMSTUTZ, EMBER Unavailable [address] + [place] [address] R Unavailable Unavailable Unavailable RM ESPINOZA Unavailable [address] + [place] [address] AMSTUTZ EMBER Unavailable [address] + [place] [address] R Unavailable Unavailable Unavailable RM ESPINOZA Unavailable [address] + [place] [address] AMSTUTZ, EMBER Unavailable [address] + [place] [address] R Unavailable Unavailable Unavailable RM ESPINOZA Unavailable [address] + [place] [address] AMSTUTZ, EMBER Unavailable [address] + [place] [address] R Unavailable Unavailable Unavailable RM ESPINOZA Unavailable [address] + [place] [address] AMSTUTZ, EMBER Unavailable [address] + [place] [address] R Unavailable Unavailable Unavailable RM ESPINOZA Unavailable [address] + [place] [address] AMSTUTZ, EMBER Unavailable [address] + [place] [address] R Unavailable Unavailable Unavailable RM ESPINOZA Unavailable [address] + [place] [address] AMSTUTZ, EMBER Unavailable [address] + [place] [address] R Unavailable Unavailable Unavailable RM ESPINOZA Unavailable [address] + [place] [address] AMSTUTZ, EMBER Unavailable [address] + [place] [address] R Unavailable Unavailable Unavailable RM ESPINOZA Unavailable [address] + [place] [address] AMSTUTZ, EMBER Unavailable [address] + [place] [address] R Unavailable Unavailable Unavailable RM ESPINOZA Unavailable [address] + [place] [address] AMSTUTZ, EMBER Unavailable [address] + [place] [address] R Unavailable Unavailable Unavailable RM ESPINOZA Unavailable [address] + [place] [address] AMSTUTZ, EMBER Unavailable [address] + [place] [address] R Unavailable Unavailable Unavailable RM ESPINOZA Unavailable [address] + [place] [address] AMSTUTZ, EMBER Unavailable [address] + [place] [address] R Unavailable Unavailable Unavailable RM ESPINOZA Unavailable [address] + [place] [address] AMSTUTZ, EMBER Unavailable [address] + [place] [address] R Unavailable Unavailable Unavailable RM ESPINOZA Unavailable [address] + [place] [address] AMSTUTZ, EMBER Unavailable [address] + [place] [address] R Unavailable Unavailable Unavailable ERIK RM Unavailable [address] + [place] [address] Care Team Providers Name Role Phone KAYLEEANA Admitting Unavailable LIBERTY BOWMAN Referring Unavailable [facility] Primary Care Unavailable CONSULT, GASTROENTEROLOGY Consulting Unavailable PERICO ROCHA Attending Unavailable Cardenas, Ashvin Attending Unavailable MARITZA, ADAL Referring Unavailable Cardenas, Ashvin Primary Care Unavailable MARITZA, ADAL Attending Unavailable MARITZA, ADAL Referring Unavailable Cardenas, Ashvin Primary Care Unavailable Cardenas, Ashvin Primary Care Unavailable Rubén Khalil Attending Unavailable Rubén Khalil Referring Unavailable Cardenas, Ashvin Primary Care Unavailable Gbaruk, Kombian Admitting Unavailable Sidney Thompson Consulting Unavailable Salomón Damon Attending Unavailable Gbaruk, Kombian Admitting Unavailable Gbaruk, Kombian Attending Unavailable Cardenas, Ashvin Primary Care Unavailable Gbaruk, Kombian Consulting Unavailable Gbaruk, Kombian Admitting Unavailable Gbaruk, Kombian Attending Unavailable Cardenas, Ashvin Primary Care Unavailable Gbaruk, Kombian Consulting Unavailable [place], Kombian Admitting Unavailable Dao Sofia Attending Unavailable Cardenas, Ashvin Primary Care Unavailable Dao Sofia Consulting Unavailable Gbaruk, Kombian Admitting Unavailable Salomón Damon Attending Unavailable Cardenas, Ashvin Primary Care Unavailable Sidney Thompson Consulting Unavailable Salomón Damon Consulting Unavailable MARITZA, ADAL Attending Unavailable MARITZA, ADAL Referring Unavailable Cardenas, Ashvin Primary Care Unavailable MARITZA, ADAL Attending Unavailable MARITZA, ADAL Referring Unavailable Cardenas, Ashvin Primary Care Unavailable Cardenas, Ashvin Primary Care Unavailable Brandy Dodd Attending Unavailable White, Adriana Admitting Unavailable Cebul, Sidney Attending Unavailable Cardenas, Ashvin Referring Unavailable White, Adriana Admitting Unavailable Cardenas, Ashvin Primary Care Unavailable Cebul, Sidney Consulting Unavailable Cebul, Sidney Referring Unavailable Jopperi, Ashvin Attending Unavailable White, Adriana Admitting Unavailable Cebul, Sidney Referring Unavailable Cardenas, Ashvin Primary Care Unavailable Cebul, Sidney Consulting Unavailable White, Adriana Attending Unavailable White, Adriana Consulting Unavailable White, Adriana Admitting Unavailable Jopperi, Ashvin Attending Unavailable Cebul, Sidney Referring Unavailable Cardenas, Ashvin Primary Care Unavailable Cebul, Sidney Consulting Unavailable Jopperi, Ashvin Consulting Unavailable Cebul, Sidney Attending Unavailable Jopperi, Ashvin Referring Unavailable Lalo, Barak Chi Admitting Unavailable Lalo, Barak Chi Attending Unavailable Cardenas, Ashvin Primary Care Unavailable Sagar George Attending Unavailable Cebul, Sidney Referring Unavailable PROBLEMS PROBLEMS DATE TYPE CONDITION / CODE ATTENDING STATUS SOURCE Unknown R53.81 - Other malaise Lalo, Barak Chi Active [place] 8 / R53.81(ICD-10) [facility] Repository Admitting Perforation of ASTERIOU, Active [place] [address] diagnosis intestine [facility] (nontraumatic) / [facility] K63.1(ICD-10) Center Repository Admitting Accidental puncture ASTERIOU, [place] [address] diagnosis and laceration of a [facility] digestive system organ [facility] Medical or structure during a Center digestive system Repository procedure / K91.71(ICD-10) Admitting Acute posthemorrhagic ASTERIOU, Active [place] [address] diagnosis anemia / D62(ICD-10) [facility] Repository Admitting Hemorrhage of anus and ASTERIOU, Active [place] [address] diagnosis rectum / K62.5(ICD-10) [facility] Repository Admitting Unspecified ASTERIOU, Active [place] [address] diagnosis adrenocortical [facility] insufficiency / [facility] Medical E27.40(ICD-10) Center Repository Admitting Cardiac murmur, ASTERIOU, Active [place] [address] diagnosis unspecified / [facility] R01.1(ICD-10) [facility] Repository Unknown R94.31 - Abnormal DorisSagar shelby Active [place] 8 electrocardiogram Community [ECG] [EKG] / Hospital R94.31(ICD-10) Repository Unknown I10 - Essential DorisJ Carlos shelbyril Active [place] 8 (primary) hypertension Community / I10(ICD-10) Hospital Repository Unknown K92.2 - CiprianoAshvin piper Active [place] 8 Gastrointestinal Community hemorrhage, Hospital unspecified / Repository K92.2(ICD-10) Unknown K62.5 - Hemorrhage of Sidney Khan Active [place] 8 anus and rectum / Community K62.5(ICD-10) Hospital Repository Unknown K64.2 - Third degree CeSidney ridley Active [place] 8 hemorrhoids / Community K64.2(ICD-10) Hospital Repository Unknown 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 [place] 8 Angiodysplasia of Community colon with hemorrhage Hospital / K55.21(ICD-10) Repository Unknown K57.30 - Sidney Khan Active [place] 8 Diverticulosis of Community large intestine Hospital without perforation or Repository abscess without bleeding / K57.30(ICD-10) Unknown K75.4 - Autoimmune MARITZA, ADAL Active [place] 8 hepatitis / Community K75.4(ICD-10) Hospital Repository Unknown B02.9 - Zoster without Tereletsky, Active [place] 8 complications / [place] Community B02.9(ICD-10) Hospital Repository Unknown I51.81 - Takotsubo Rubén Khalil Active [place] 8 syndrome / Community I51.81(ICD-10) Hospital Repository Unknown A04.72 - Enterocolitis Ashvin Cardenas Active [place] 7 due to Clostridium Community difficile, not Hospital specified as recurrent Repository / A04.72(ICD-10) Unknown 008.45 - Intestinal Ashvin Cardenas Active [place] 7 infection due to Community Clostridium difficile Hospital / 008.45(ICD-9) Repository PROCEDURES PROCEDURES No Procedure Records FoundRESULTS RESULTS CBC W/DIFF, AUTOMATED Collected: 06/23/2018 Status: F Source: [place] 5:11 AM [facility] REPOSITORY TYPE CODE TESTS RESULT OUT OF RANGE REFERENCE UNITS LAB L100.1000 4.4-11.0 K/mm3 High WBC 11.5 LAB L100.1200 4.2-5.4 M/mm3 Low RBC 3.54 LAB L100.1300 12.0-15.0 g/dl Low HGB 11.1 LAB L100.1400 37-47 % Low HCT 34.5 LAB L100.1500 81-99 fL Normal MCV 97.5 LAB L100.1600 27.0-32.0 pg Normal MCH 31.4 LAB L100.1700 32-36 g/gl Normal MCHC 32.2 LAB L100.1810 11.6-14.6 % High RDW CV 17.4 LAB L100.1820 35.1-43.9 fl High RDW SD 61.3 LAB L100.1900 150-450 K/mm3 Normal PLT 226 LAB L100.2000 6.2-12.0 fl Normal MPV 9.4 LAB L100.2100 47-70 % Normal NEUT% 69.9 LAB L100.2200 19-41 % Normal LY% 19.3 LAB L100.2300 0-10 % Normal MONO% 8.9 LAB L100.2400 0-5 % Normal EO% 0.6 LAB L100.2500 0-1 % Normal BASO% 0.2 LAB L100.2550 0.0-0.9 % High IM GRAN % 1.100 Result Comment: IG% - Immature Granulocytes (promyelocytes, myelocytes and metamyelocytes) > 1% indicates that a LEFT SHIFT is Present. LAB L100.2620 2.0-7.7 X10 3/uL High Absolute Neut 8.1 LAB L100.2720 0.83-4.51 X10 3/ul Normal Absolute Lymph 2.22 Performed By: #### L100.0100 #### [facility] [address] [place], [place], [address] BASIC METABOLIC Collected: 06/23/2018 Status: F Source: [place] PROFILE (BMP) 5:11 AM [facility] REPOSITORY TYPE CODE TESTS RESULT OUT OF RANGE REFERENCE UNITS LAB L501.0100 74-106 mg/dL Normal GLU 88 Result Comment: Please note revised GLUCOSE reference range effective 2017. LAB L501.1000 7-18 mg/dL Normal BUN 16 LAB L501.1100 0.55-1.02 mg/dL Normal CREAT,SERUM 0.58 Result Comment: The validity of the calculated GFR AND GFRAA in patients over 70 years has not been determined. Clinical correlation is essential. LAB L501.1110 >60 mL/min Normal EST GFR 106 Result Comment: Non- GFR Calc LAB L501.1115 >60 mL/min Normal EST GFR - AA 128 Result Comment: GFR Calc LAB L501.1255 ml/min Normal Estimated CRCL 32.70 LAB L501.1300 10-20 RATIO High BUN/CRE 27.4 LAB L501.2200 8.5-10 mg/dL Normal .1 CA 8.5 LAB L501.5300 136-14 mmol/L Normal 5 NA 136 LAB L501.5600 3.5-5. mmol/L Normal 1 K 3.9 LAB L501.5900 98-107 mmol/L Normal CL 103 LAB L501.6100 21.0-3 mmol/L Normal 2.0 CO2 23.0 LAB L501.6200 5-15 Normal GAP 10 Performed By: #### L500.2500 #### [facility] [address] [place], [address] DISCHARGE SUMMARY Observed: 06/21/2018 Status: F Source: [place] 2:50 PM [facility] REPOSITORY [facility] Medical Records Department [address] [place] [address] Discharge Summary 06/21/18 1448 MR#: [id number] Acct: [id number] Name: PAMELA ESPINOZA Rep #: [id number] : 1940 78 From: Barak May MD PCP: Ashvin Cardenas MD Status: ADM IN Y Location: [place] [address] 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) Hyponatremia (Acute) Hemorrhoids (Acute) Diverticulosis (Acute) - Secondary Discharge Diagnosis Chronic Problems (Last Updated 05/25/18 @ 10:47 by Ashvin Bowman DO) Adrenal insufficiency (Chronic) Hyperlipidemia (Chronic) Lupus (Chronic) Glaucoma (Chronic) Hypothyroidism (Chronic) Monoclonal gammopathies (Chronic) Lupus (Chronic) Hypertension (Chronic) Autoimmune hepatitis (Chronic) Hospital Course and Treatment Imaging Results: 06/15/18 16:35 Diet: Regular Diet Is pt able to select menu?: Yes Consultations 06/15/18 Consult: Onc/Wound/cloth folder hand Routine Comment: stage I to coccyx Operations: None Procedures: None Summary of Care Provided: The patient is a 78 year old Female with below past medical history hospitalized for acute GI bleeding secondary to right sided AVM, left sided diverticulosis, grade 3 hemorrhoids, complicated by ongoing fevers, adrenal insufficiency, hyponatremia, admitted to TCU with debility, here for rehabilitation, strengthening, prior to discharge home. Consider endocrinology referral for adrenal insufficiency. Discharge home with family. 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) Hyponatremia (Acute) Hemorrhoids (Acute) Diverticulosis (Acute) - Physical Exam Vital Signs Temp Pulse Resp BP Pulse Ox 98.6 F 90 18 136/63 H 96 06/20/18 16:00 06/20/18 16:00 06/20/18 16:00 06/20/18 16:00 06/20/18 16:00 Oxygen Delivery Method Room Air Weight: 44.679 kg Body Mass Index (BMI) 20.5 Intake and Output for Last 24 Hours Intake Total 960 / 960 600 / 600 240 / 240 Balance 960 / 960 600 / 600 240 / 240 Discharge Diet: No Restrictions Discharge Activity: Return to Normal Activity, May Shower, Use Walker Weight Bearing Status: Weight bearing as tolerated Call your doctor if you observe: Fever of 101 or Higher, Inability to urinate, Inability to have a bowel movement, Shortness of breath, Chest pain, Uncontrolled pain Home Medications: Medications to take at Discharge Bimatoprost [Lumigan Opthalmic] 1 drp EACH EYE QHS 06/23/17 Brimonidine 0.15% [Alphagan P 0.15%] 1 drp EACH EYE BID 06/23/17 Budesonide [Budesonide EC] 3 mg PO DAILY 06/23/17 Hydroxychloroquine [Plaquenil] 200 mg PO DAILYCM 06/23/17 Levothyroxine Sodium [Synthroid] 75 mcg PO DAILY 06/23/17 Timolol 0.5% [Timoptic] 1 drp EACH EYE DAILY 06/23/17 Carvedilol [Coreg (Beta Lorie)] 12.5 mg PO BID@0800,1800 #60 tablet 06/21/18 Hydrocortisone [Cortef] 5 mg PO QPM@1500 #30 tablet 06/21/18 Hydrocortisone [Cortef] 10 mg PO DAILYCM #30 tablet 06/21/18 Iron Polysaccharide Complex [Ferrex 150] 150 mg PO DAILYCM #30 capsule 06/21/18 Menthol/Lanolin/Calamine/Znox [Calmoseptine Ointment] 1 applic TOPICAL 0600,2200 tube 06/21/18 Nystatin Powder [Mycostatin Powder] 1 applic TOPICAL BID@0600,2200 bottle 06/21/18 Polyethylene Glycol 3350 [Miralax] 17 gm PO DAILY@0800 #30 packet 06/21/18 Potassium Cloride Effervescent [Potassium Chl 25 Meq Eff (For Liquid)] 25 meq PO DAILYCM #30 tablet.eff 06/21/18 Following Prescrptions Were Given to Patient: Carvedilol [Coreg (Beta Lorie)] 12.5 mg PO BID@0800,1800 #60 tablet Hydrocortisone [Cortef] 5 mg PO QPM@1500 #30 tablet Hydrocortisone [Cortef] 10 mg PO DAILYCM #30 tablet Iron Polysaccharide Complex [Ferrex 150] 150 mg PO DAILYCM #30 capsule Polyethylene Glycol 3350 [Miralax] 17 gm PO DAILY@0800 #30 packet Potassium Cloride Effervescent [Potassium Chl 25 Meq Eff (For Liquid)] 25 meq PO DAILYCM #30 tablet.eff Other Amb Orders: Basic Metabolic Profile (BMP) Time Frame: 3 Days, Location: Laboratory Primary Care Physician: Ashvin Cardenas MD [Primary Care Provider] - Please follow up with your Primary Care Physician in: 1 week. Please Follow Up With: rm narvaez When: 2 weeks. Disposition: Home Minutes spent on discharge:: 30 Patient Condition:: Stable Medical Necessity - Tobacco Use Smoking Status: Never smoker Tobacco Use: Non-smoker Meaningful Use Info Meaningful Use Diagnoses (Choose all that apply): None applicable 06/21/18 1450 <Electronically signed by Barak May MD> Date Barak May MD Cosigner Signature (if applicable): Date CC: Ashvin Cardenas MD; Barak May MD Signed DISCHARGE INSTRUCTION Observed: 06/21/2018 Status: F Source: [place] 2:47 PM [facility] REPOSITORY [facility] Medical Records Department [address] [place] [address] Instructions for Home/Discharge Instructions 06/21/18 1446 MR#: [id number] Acct: [id number] Name: PAMELA ESPINOZA Rep #: [id number] : 1940 78 From: Barak May MD PCP: Ashvin Cardenas MD Status: ADM IN 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) Hyponatremia (Acute) Adrenal insufficiency (Chronic) Hemorrhoids (Acute) Diverticulosis (Acute) Hyperlipidemia (Chronic) Lupus (Chronic) Glaucoma (Chronic) You will use the following diet at home:: No restrictions, Regular Your food should be the consistency of: Regular Your liquids should be the consistency of: Regular/Thin Discharge Activity: Return to Normal Activity, May Shower, Use Walker Weight Bearing Status: Weight bearing as tolerated Call your doctor if you observe: Fever of 101 or Higher, Inability to urinate, Inability to have a bowel movement, Shortness of breath, Chest pain, Uncontrolled pain Allergies/Adverse Reactions: Allergies griseofulvin ultramicrosize [From Priti-PEG (ultramicrosize)] Allergy (Severe, Verified 05/24/18 12:45) RACING HEART AND SEVERE H/A azathioprine [From Imuran] Adverse Reaction (Severe, Verified 05/24/18 12:45) Nausea/Vom/Diarrhea azathioprine sodium [From Imuran] Adverse Reaction (Severe, Verified 05/24/18 12:45) Nausea/Vom/Diarrhea Penicillins Adverse Reaction (Severe, Verified 05/24/18 12:45) Hives Medications to take at Discharge Bimatoprost [Lumigan Opthalmic] 1 drp EACH EYE QHS 06/23/17 Brimonidine 0.15% [Alphagan P 0.15%] 1 drp EACH EYE BID 06/23/17 Budesonide [Budesonide EC] 3 mg PO DAILY 06/23/17 Hydroxychloroquine [Plaquenil] 200 mg PO DAILYCM 06/23/17 Levothyroxine Sodium [Synthroid] 75 mcg PO DAILY 06/23/17 Timolol 0.5% [Timoptic] 1 drp EACH EYE DAILY 06/23/17 Carvedilol [Coreg (Beta Lorie)] 12.5 mg PO BID@0800,1800 #60 tablet 06/21/18 Hydrocortisone [Cortef] 5 mg PO QPM@1500 #30 tablet 06/21/18 Hydrocortisone [Cortef] 10 mg PO DAILYCM #30 tablet 06/21/18 Iron Polysaccharide Complex [Ferrex 150] 150 mg PO DAILYCM #30 capsule 06/21/18 Menthol/Lanolin/Calamine/Znox [Calmoseptine Ointment] 1 applic TOPICAL 0600,2200 tube 06/21/18 Nystatin Powder [Mycostatin Powder] 1 applic TOPICAL BID@0600,2200 bottle 06/21/18 Polyethylene Glycol 3350 [Miralax] 17 gm PO DAILY@0800 #30 packet 06/21/18 Potassium Cloride Effervescent [Potassium Chl 25 Meq Eff (For Liquid)] 25 meq PO DAILYCM #30 tablet.eff 06/21/18 The following prescriptions were given: Carvedilol [Coreg (Beta Lorie)] 12.5 mg PO BID@0800,1800 #60 tablet Hydrocortisone [Cortef] 5 mg PO QPM@1500 #30 tablet Hydrocortisone [Cortef] 10 mg PO DAILYCM #30 tablet Iron Polysaccharide Complex [Ferrex 150] 150 mg PO DAILYCM #30 capsule Polyethylene Glycol 3350 [Miralax] 17 gm PO DAILY@0800 #30 packet Potassium Cloride Effervescent [Potassium Chl 25 Meq Eff (For Liquid)] 25 meq PO DAILYCM #30 tablet.eff Primary Care Physician: Ashvin Cardenas MD [Primary Care Provider] - Please follow up with your Primary Care Physician in: 1 week. Test Results: Test results from this visit will be discussed in further detail at your follow-up appointment, if applicable. Please Follow Up With: rm narvaez When: 2 weeks. Proposed Discharge Date: 06/28/18 06/21/18 1447 <Electronically signed by Barak May MD> Date Barak Mya MD CC: Ashvin Cardenas MD BASIC METABOLIC Collected: 06/19/2018 Status: F Source: [place] PROFILE (BMP) 5:20 AM [facility] REPOSITORY TYPE CODE TESTS RESULT OUT OF RANGE REFERENCE UNITS LAB L501.0100 74-106 mg/dL Normal GLU 88 Result Comment: Please note revised GLUCOSE reference range effective 2017. LAB L501.1000 7-18 mg/dL Normal BUN 16 LAB L501.1100 0.55-1.02 mg/dL Normal CREAT,SERUM 0.57 Result Comment: The validity of the calculated GFR AND GFRAA in patients over 70 years has not been determined. Clinical correlation is essential. LAB L501.1110 >60 mL/min Normal EST GFR 109 Result Comment: Non- GFR Calc LAB L501.1115 >60 mL/min Normal EST GFR - AA 132 Result Comment: GFR Calc LAB L501.1255 ml/min Normal Estimated CRCL 32.70 LAB L501.1300 10-20 RATIO High BUN/CRE 28.1 LAB L501.2200 8.5-10 mg/dL Normal .1 CA 8.5 LAB L501.5300 136-14 mmol/L Normal 5 NA 137 LAB L501.5600 3.5-5. mmol/L Normal 1 K 4.0 LAB L501.5900 98-107 mmol/L Normal CL 103 LAB L501.6100 21.0-3 mmol/L Normal 2.0 CO2 26.0 LAB L501.6200 5-15 Normal GAP 8 Performed By: #### L500.2500 #### [facility] [address] [place], [address] HISTORY AND PHYSICAL Observed: 06/17/2018 Status: F Source: [place] EXAM 8:30 AM [facility] REPOSITORY [facility] Medical Records Department [address] [place] [address] History and Physical 06/15/18 1601 MR#: [id number] Acct: [id number] Name: PAMELA ESPINOZA Rep #: [id number] : 1940 78 From: Barak May MD PCP: Ashvin Cardenas MD Status: ADM IN Y Location: [place] [address] Problem List (1) Gastrointestinal bleeding, lower Status: Acute (2) AVM (arteriovenous malformation) of colon with hemorrhage Status: Acute (3) Hyponatremia Status: Acute (4) Adrenal insufficiency Status: Chronic (5) Hemorrhoids Status: Acute (6) Diverticulosis Status: Acute (7) Acute blood loss anemia Status: Acute (8) Hyperlipidemia Status: Chronic (9) Lupus Status: Chronic (10) Glaucoma Status: Chronic (11) Hypothyroidism Status: Chronic (12) Hypertension Status: Chronic (13) Autoimmune hepatitis Status: Chronic History of Present Illness Date of Admission: 06/15/18 Chief Complaint: Here for rehabilitation, strengthening, prior to discharge home. The patient is a 78 year old Female with below past medical history with followin05/23/2018 [facility] Emergency Department with bright red blood per rectum. x 2 days, red blood, blood clots 5 to 6 episodes. IV fluids. CBCD okay, Sodium 130, Stool Guaiac negative, but probably false negative. 05/24/2018 Admit to Hospital. IV Fluids, Type AND Screen, Serial H AND H, IV PPI. 05/25/2018 Dr. Khan performed colonoscopy. Grade III hemorrhoids. Bleeding right sided arteriovenous malformations. Bleeding left sided diverticulum. 05/25/2018 Transferred to [facility] for further care. Patient diagnosed with adrenal insufficiency, treated with hydrocortisone 10MG AM, 5MG PM. Patient suffered ongoing fevers. CT abdomen/pelvis showed colonic microperforations. General Surgery recommended no surgical intervention. Treated with cefepime/flagyl, then Cipro/flagyl. Hyponatremia secondary to adrenal insufficiency. 06/15/2018 Admit to TCU with debility, here for rehabilitation, strengthening, prior to discharge home. 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 Tachycardia R00.0 Allergies griseofulvin ultramicrosize [From Priti-PEG (ultramicrosize)] Allergy (Severe, Verified 05/24/18 12:45) RACING HEART AND SEVERE H/A azathioprine [From Imuran] Adverse Reaction (Severe, Verified 05/24/18 12:45) Nausea/Vom/Diarrhea azathioprine sodium [From Imuran] Adverse Reaction (Severe, Verified 05/24/18 12:45) Nausea/Vom/Diarrhea Penicillins Adverse Reaction (Severe, Verified 05/24/18 12:45) Hives Home Medications: Ambulatory Orders Medication Instructions Recorded Bimatoprost [Lumigan Opthalmic] 1 drp EACH EYE QHS 06/23/17 Brimonidine 0.15% [Alphagan P 1 drp EACH EYE BID 06/23/17 0.15%] Budesonide [Budesonide EC] 3 mg PO DAILY 06/23/17 Surgical History: Surgical History (Last Reviewed 05/24/18 @ 12:44 by Zoë Quiroz) H/O cataract extraction Z98.49 H/O tubal ligation Z98.51 Hx of cholecystectomy Z98.890, Z90.49 h/o mass removed from hip Surgical History: cataract, cholecystectomy, - - D+C x 2, BLTL, sinus cyst removal BL. Psychiatric History: No pertinent psych hx EVIDENCE CUSTODIAN History: No pertinent EVIDENCE CUSTODIAN history Lives: Spouse/ Significant Other - Spouse currently in skilled rehab unit. Smoking Status: Never smoker Tobacco Use: Non-smoker Alcohol: None Drugs: None - *Family History Maternal Family History: Family History (Last Reviewed 05/24/18 @ 14:16 by VADIM Fish) Father Heart disease Mother Heart disease History Items: No pertinent history Paternal Family History: Family History (Last Reviewed 05/24/18 @ 14:16 by VADIM Fish) Father Heart disease Mother Heart disease History Items: No pertinent history Review of Systems Constitutional: Denies: Chills, Fever, Weight Change HEENT: Denies: Head Aches, Sinus Congestion, Sinus Drainage Cardiovascular: Denies: Chest Pain, Palpitations Respiratory: Denies: Cough, Shortness of breath at rest, Sputum production Gastrointestinal: Denies: Abdominal Pain, Nausea, Vomiting Genitourinary: Denies: Dysuria Musculoskeletal: Denies: Joint Pain, Joint Tenderness Skin: Denies: Rash, Wounds Neurological: Denies: Numbness, Tingling, Focal weakness Psychiatric: Denies: Anxiety, Depression, Homicidal Ideations, Suicidal Ideations Hematologic/ Lymphatic: Denies: Easy Bruising, Easy Bleeding VTE Information - Inpt Only VTE Present on Admission: No VTE Mechan Device Prophylaxis: Knee High BRADLEY Hose VTE Pharm Prophylaxis ordered?: No Patient Problems: Active and Suspected Problems (Last Updated 05/25/18 @ 10:47 by Ashvin Bowamn DO) Gastrointestinal bleeding, lower (Acute) 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) Hyponatremia (Acute) Hemorrhoids (Acute) Diverticulosis (Acute) - Physical Exam General: Alert, Oriented x3, Cooperative HEENT: Atraumatic, PERRLA, EOMI, Normocephalic Neck: Supple, No JVD, Negative Carotid Bruits Lungs: Clear to auscultation, Normal air movement Cardiovascular: Regular rate, No murmurs Abdomen: Bowel Sounds Present, Soft, Non Tender Extremities: No edema, Capillary Refill Less than 3 Seconds Skin: No rashes, No breakdown Musculoskeletal: No Tenderness to Palpation of Joints or Extremities Neurological: Cranial nerves II-XII grossly intact Psych/Mental Status: Normal Affect, Appropriate Body Mass Index (BMI) 21.2 Assessment/Plan All Active Problems (Last Updated 05/25/18 @ 10:47 by Ashvin Bowman DO) Gastrointestinal bleeding, lower (Acute) 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) Hyponatremia (Acute) Hemorrhoids (Acute) Diverticulosis (Acute) Acute blood loss anemia (Acute) Rectal bleeding (Acute) C. difficile colitis (Resolved) Nonhealing nonsurgical wound (Resolved) Shingles (Resolved) Traumatic open wound of right lower leg (Resolved) 78 year old female with below past medical history hospitalized for acute GI bleeding secondary to right sided AVM, left sided diverticulosis, grade 3 hemorrhoids, complicated by ongoing fevers, adrenal insufficiency, hyponatremia, admitted to TCU with debility, here for rehabilitation, strengthening, prior to discharge home. * Debility - PT/OT. * Pain - Tylenol 1000MG Q8H PRN mild pain. * Bowel - Miralax 17GM daily, Dulcolax 10MG PO daily PRN. * Pneumonia vaccination - Administer Prevnar 13 and/or Pneumovax 23 as necessary. * DVT prophylaxis - Hold due to recent GI bleed. * Glaucoma - Lumigan 1GTT OU QHS, Alphagan 1GTT OU BID. * Autoimmune Hepatitis - Budesonide 3MG daily. * Hypertension - Coreg 12.5MG BID. * Skin irritation - Eucerin 4x/day PRN. * Adrenal insufficiency - Cortef 10MG AM, 5MG PM. * Lupus - Plaquenil 200MG daily. * Hypothyroidism - Levothyroxine 75MCG daily. * Insomnia - Melatonin 3MG QHS. * Hypokalemia - KCL 50MEQ daily. 06/17/18 0830 <Electronically signed by Barak May MD> Date Barak May MD Cosigner Signature: Date (if applicable) CC: Ashvin Cardenas MD; Barak May MD Signed CBC W/DIFF, AUTOMATED Collected: 06/16/2018 Status: F Source: [place] 6:50 AM [facility] REPOSITORY TYPE CODE TESTS RESULT OUT OF RANGE REFERENCE UNITS LAB L100.1000 4.4-11.0 K/mm3 Normal WBC 6.4 LAB L100.1200 4.2-5.4 M/mm3 Low RBC 3.10 LAB L100.1300 12.0-15.0 g/dl Low HGB 9.3 LAB L100.1400 37-47 % Low HCT 29.3 LAB L100.1500 81-99 fL Normal MCV 94.5 LAB L100.1600 27.0-32.0 pg Normal MCH 30.0 LAB L100.1700 32-36 g/gl Low MCHC 31.7 LAB L100.1810 11.6-14.6 % High RDW CV 17.0 LAB L100.1820 35.1-43.9 fl High RDW SD 58.4 LAB L100.1900 150-450 K/mm3 Normal PLT 277 LAB L100.2000 6.2-12.0 fl Normal MPV 9.0 LAB L100.2100 47-70 % Normal NEUT% 58.4 LAB L100.2200 19-41 % Normal LY% 28.3 LAB L100.2300 0-10 % High MONO% 11.9 LAB L100.2400 0-5 % Normal EO% 0.6 LAB L100.2500 0-1 % Normal BASO% 0.2 LAB L100.2550 0.0-0.9 % Normal IM GRAN % 0.600 Result Comment: IG% - Immature Granulocytes (promyelocytes, myelocytes and metamyelocytes) > 1% indicates that a LEFT SHIFT is Present. LAB L100.2620 2.0-7.7 X10 3/uL Normal Absolute Neut 3.7 LAB L100.2720 0.83-4.51 X10 3/ul Normal Absolute Lymph 1.81 Performed By: #### L100.0100 #### [facility] [address] [place], [address] BASIC METABOLIC Collected: 06/16/2018 Status: F Source: [place] PROFILE (BMP) 6:50 AM [facility] REPOSITORY TYPE CODE TESTS RESULT OUT OF RANGE REFERENCE UNITS LAB L501.0100 74-106 mg/dL Normal GLU 94 Result Comment: Please note revised GLUCOSE reference range effective 2017. LAB L501.1000 7-18 mg/dL Normal BUN 9 LAB L501.1100 0.55-1.02 mg/dL Normal CREAT,SERUM 0.58 Result Comment: The validity of the calculated GFR AND GFRAA in patients over 70 years has not been determined. Clinical correlation is essential. LAB L501.1110 >60 mL/min Normal EST GFR 106 Result Comment: Non- GFR Calc LAB L501.1115 >60 mL/min Normal EST GFR - AA 128 Result Comment: GFR Calc LAB L501.1255 ml/min Normal Estimated CRCL 32.72 LAB L501.1300 10-20 RATIO Normal BUN/CRE 15.4 LAB L501.2200 8.5-10 mg/dL Low .1 CA 8.1 LAB L501.5300 136-14 mmol/L Normal 5 NA 138 LAB L501.5600 3.5-5. mmol/L Normal 1 K 3.9 LAB L501.5900 98-107 mmol/L Normal CL 102 LAB L501.6100 21.0-3 mmol/L Normal 2.0 CO2 26.0 LAB L501.6200 5-15 Normal GAP 10 Performed By: #### L500.2500 #### [facility] [address] [place], [address] HEMOGRAM (CBC AND Collected: 06/15/2018 Status: F Source: [facility]) 3:00 AM [facility] REPOSITORY TYPE CODE TESTS RESULT OUT OF REFERENCE UNITS RANGE LAB WBC 3.99-11.19 K/uL WBC Count 8.24 LAB RBC 3.91-5.04 M/uL Low RBC Count 3.02 LAB HGB 11.4-15.2 g/dL Low Hemoglobin 9.0 LAB HCT 34.9-44.3 % Low Hematocrit 28.3 LAB MCV 79.6-97.7 fL Mean Cell Volume 93.7 LAB MCH 25.9-33.9 pg Mean Cell Hgb 29.8 LAB MCHC 31.4-35.9 g/dL Mean Cell Hgb Conc 31.8 LAB RDW 10.8-14.9 % RBC High Distribution 16.8 LAB PLT 150-393 K/uL Platelet Count 277 LAB MPV 8.5-12.2 fL Mean Platelet Volume 9.7 LAB NRBC 0.0-0.2 /100 WBC NUCLEATED RBC 0.0 Performed By: #### HELDER ARANDA, MGMarcelino, PTPGIOVANNY #### [facility] [id number] [place] [address] [address] CHEM 7 Collected: 06/15/2018 Status: F Source: [facility] 3:00 AM [facility] REPOSITORY TYPE CODE TESTS RESULT OUT OF REFERENCE UNITS RANGE LAB BUN 7-22 mg/dL BUN 8 LAB NA 133-143 mmol/L Sodium 135 LAB K 3.5-5.0 mmol/L Low Potassium 3.0 LAB CL 98-108 mmol/L Chloride 102 LAB CO2 22-30 mmol/L Low Carbon Dioxide 21 LAB GLUC 70-99 mg/dL Glucose High 105 LAB CREA 0.50-1.20 mg/dL Low Creatinine 0.44 LAB GAP 7-17 mmol/L Anion Gap 15 LAB BC BUN/CREA Ratio 18 LAB [facility] 278-305 mOsm/kg Osmolality 280 (Calc) LAB GFR >60 mL/min/1.73 sqM Est GFR,non >60 Dutch LAB GFRA >60 mL/min/1.73 sqM Est GFR, >60 Performed By: #### MANOJ, HELDER, MGO, PTPTT #### [facility] [address] [place] [address] [facility] [address] [address] MAGNESIUM Collected: 06/15/2018 Status: F Source: [facility] 3:00 AM [facility] REPOSITORY TYPE CODE TESTS RESULT OUT OF REFERENCE UNITS RANGE LAB MG 1.6-2.6 mg/dL Magnesium 1.8 Performed By: #### MANOJ, VINICIOM7, MGO, PTPTT #### [facility] [address] [place] [address] [place] [address] PT*PTT Collected: 06/15/2018 Status: F Source: [facility] 3:00 AM [facility] REPOSITORY TYPE CODE TESTS RESULT OUT OF RANGE REFERENCE UNITS LAB PT 11.9-14.2 sec PT 14.1 LAB INR 0.9-1.1 INR 1.1 LAB PTT 24.0-34.3 sec High PTT 42.6 Performed By: #### HEMOGC, CHM7, MGO, PTPTT #### [facility] [address] [place] [address] [place] [address] HEMOGRAM (CBC AND Collected: 06/14/2018 Status: F Source: [facility]) 3:22 AM [facility] REPOSITORY TYPE CODE TESTS RESULT OUT OF REFERENCE UNITS RANGE LAB WBC 3.99-11.19 K/uL WBC Count 8.98 LAB RBC 3.91-5.04 M/uL Low RBC Count 3.11 LAB HGB 11.4-15.2 g/dL Low Hemoglobin 9.3 LAB HCT 34.9-44.3 % Low Hematocrit 28.9 LAB MCV 79.6-97.7 fL Mean Cell Volume 92.9 LAB MCH 25.9-33.9 pg Mean Cell Hgb 29.9 LAB MCHC 31.4-35.9 g/dL Mean Cell Hgb Conc 32.2 LAB RDW 10.8-14.9 % RBC High Distribution 16.7 LAB PLT 150-393 K/uL Platelet Count 300 LAB MPV 8.5-12.2 fL Mean Platelet Volume 9.9 LAB NRBC 0.0-0.2 /100 WBC NUCLEATED RBC 0.0 Performed By: #### HEMOGC, CHM7, MGO, PTPTT #### [facility] [address] [place] [address] [place] [address] CHEM 7 Collected: 06/14/2018 Status: F Source: [facility] 3:22 AM [facility] REPOSITORY TYPE CODE TESTS RESULT OUT OF REFERENCE UNITS RANGE LAB BUN 7-22 mg/dL Low BUN 6 LAB NA 133-143 mmol/L Sodium 136 LAB K 3.5-5.0 mmol/L Low Potassium 3.2 LAB CL 98-108 mmol/L Chloride 104 LAB CO2 22-30 mmol/L Low Carbon Dioxide 21 LAB GLUC 70-99 mg/dL Glucose 87 LAB CREA 0.50-1.20 mg/dL Creatinine 0.51 LAB GAP 7-17 mmol/L Anion Gap 14 LAB BC BUN/CREA Ratio 12 LAB [facility] 278-305 mOsm/kg Osmolality 281 (Calc) LAB GFR >60 mL/min/1.73 sqM Est GFR,non >60 Dutch LAB GFRA >60 mL/min/1.73 sqM Est GFR, >60 Performed By: #### HEMOGC, CHM7, MGO, PTPTT #### [facility] [address] [address] MAGNESIUM Collected: 06/14/2018 Status: F Source: [facility] 3:22 AM [facility] REPOSITORY TYPE CODE TESTS RESULT OUT OF REFERENCE UNITS RANGE LAB MG 1.6-2.6 mg/dL Magnesium 1.8 Performed By: #### HEMOGC, CHM7, MGO, PTPTT #### [facility] [address] [address] PT*PTT Collected: 06/14/2018 Status: F Source: [facility] 3:22 AM [facility] REPOSITORY TYPE CODE TESTS RESULT OUT OF RANGE REFERENCE UNITS LAB PT 11.9-14.2 sec High PT 14.5 LAB INR 0.9-1.1 INR 1.1 LAB PTT 24.0-34.3 sec High PTT 34.9 Performed By: #### HEMOGC, CHM7, MGO, PTPTT #### [facility] [address] [address] HEMOGRAM (CBC AND Collected: 06/13/2018 Status: F Source: [facility]) 3:12 AM [facility] REPOSITORY TYPE CODE TESTS RESULT OUT OF REFERENCE UNITS RANGE LAB WBC 3.99-11.19 K/uL WBC Count 7.59 LAB RBC 3.91-5.04 M/uL Low RBC Count 3.10 LAB HGB 11.4-15.2 g/dL Low Hemoglobin 9.3 LAB HCT 34.9-44.3 % Low Hematocrit 29.2 LAB MCV 79.6-97.7 fL Mean Cell Volume 94.2 LAB MCH 25.9-33.9 pg Mean Cell Hgb 30.0 LAB MCHC 31.4-35.9 g/dL Mean Cell Hgb Conc 31.8 LAB RDW 10.8-14.9 % RBC High Distribution 16.7 LAB PLT 150-393 K/uL Platelet Count 267 LAB MPV 8.5-12.2 fL Mean Platelet Volume 9.6 LAB NRBC 0.0-0.2 /100 WBC NUCLEATED RBC 0.0 Performed By: #### HEMCHELITA, HELDER, KELSEY, PTPGIOVANNY #### [facility] [address] [place] [address] [place] [address] CHEM 7 Collected: 06/13/2018 Status: F Source: [facility] 3:12 AM [facility] REPOSITORY TYPE CODE TESTS RESULT OUT OF REFERENCE UNITS RANGE LAB BUN 7-22 mg/dL Low BUN 6 LAB NA 133-143 mmol/L Sodium 137 LAB K 3.5-5.0 mmol/L Low Potassium 3.3 LAB CL 98-108 mmol/L Chloride 104 LAB CO2 22-30 mmol/L Carbon Dioxide 23 LAB GLUC 70-99 mg/dL Glucose 98 LAB CREA 0.50-1.20 mg/dL Low Creatinine 0.47 LAB GAP 7-17 mmol/L Anion Gap 13 LAB BC BUN/CREA Ratio 13 LAB [facility] 278-305 mOsm/kg Osmolality 283 (Calc) LAB GFR >60 mL/min/1.73 sqM Est GFR,non >60 Dutch LAB GFRA >60 mL/min/1.73 sqM Est GFR, >60 Performed By: #### HEMOGC, VINICIOM7, MGMarcelino, PTPTT #### [facility] [address] [place] [address] [place] [address] MAGNESIUM Collected: 06/13/2018 Status: F Source: [facility] 3:12 AM [facility] REPOSITORY TYPE CODE TESTS RESULT OUT OF REFERENCE UNITS RANGE LAB MG 1.6-2.6 mg/dL Magnesium 2.1 Performed By: #### HELDER ARANDA, MGMarcelino, PTPGIOVANNY #### [facility] [address] [place] [id number] [place] [address] [place] [address] PT*PTT Collected: 06/13/2018 Status: F Source: [facility] 3:12 AM [facility] REPOSITORY TYPE CODE TESTS RESULT OUT OF RANGE REFERENCE UNITS LAB PT 11.9-14.2 sec High PT 15.5 LAB INR 0.9-1.1 High INR 1.2 LAB PTT 24.0-34.3 sec High PTT 38.7 Performed By: #### MANOJ, HELDER, KELSEY, PTPTT #### [facility] [address] [place] [address] [place] [address] HEMOGRAM (CBC AND Collected: 06/12/2018 Status: F Source: [facility]) 3:23 AM [facility] REPOSITORY TYPE CODE TESTS RESULT OUT OF REFERENCE UNITS RANGE LAB WBC 3.99-11.19 K/uL WBC Count 7.37 LAB RBC 3.91-5.04 M/uL Low RBC Count 2.99 LAB HGB 11.4-15.2 g/dL Low Hemoglobin 9.1 LAB HCT 34.9-44.3 % Low Hematocrit 28.1 LAB MCV 79.6-97.7 fL Mean Cell Volume 94.0 LAB MCH 25.9-33.9 pg Mean Cell Hgb 30.4 LAB MCHC 31.4-35.9 g/dL Mean Cell Hgb Conc 32.4 LAB RDW 10.8-14.9 % RBC High Distribution 16.4 LAB PLT 150-393 K/uL Platelet Count 283 LAB MPV 8.5-12.2 fL Mean Platelet Volume 10.1 LAB NRBC 0.0-0.2 /100 WBC NUCLEATED RBC 0.0 Performed By: #### HEMCHELITA, VINICIOMRylan, MGO, PTPTT #### [facility] [address] [place] [place] [address] CHEM 7 Collected: 06/12/2018 Status: F Source: [facility] 3:23 AM [facility] REPOSITORY TYPE CODE TESTS RESULT OUT OF REFERENCE UNITS RANGE LAB BUN 7-22 mg/dL Low BUN 4 LAB NA 133-143 mmol/L Sodium 134 LAB K 3.5-5.0 mmol/L Low Potassium 3.1 LAB CL 98-108 mmol/L Chloride 104 LAB CO2 22-30 mmol/L Carbon Dioxide 22 LAB GLUC 70-99 mg/dL Glucose 96 LAB CREA 0.50-1.20 mg/dL Low Creatinine 0.48 LAB GAP 7-17 mmol/L Anion Gap 11 LAB BC BUN/CREA Ratio 8 LAB [facility] 278-305 mOsm/kg Low Osmolality 277 (Calc) LAB GFR >60 mL/min/1.73 sqM Est GFR,non >60 Dutch LAB GFRA >60 mL/min/1.73 sqM Est GFR, >60 Performed By: #### HEMOGC, CHM7, MGO, PTPTT #### [facility] [address] [address] MAGNESIUM Collected: 06/12/2018 Status: F Source: [facility] 3:23 AM [facility] REPOSITORY TYPE CODE TESTS RESULT OUT OF REFERENCE UNITS RANGE LAB MG 1.6-2.6 mg/dL Magnesium 1.6 Performed By: #### HEMOGC, CHM7, MGO, PTPTT #### [facility] [address] [place] [address] PT*PTT Collected: 06/12/2018 Status: F Source: [facility] 3:23 AM [facility] REPOSITORY TYPE CODE TESTS RESULT OUT OF RANGE REFERENCE UNITS LAB PT 11.9-14.2 sec High PT 16.1 LAB INR 0.9-1.1 High INR 1.3 LAB PTT 24.0-34.3 sec High PTT 39.8 Performed By: #### HEMOGC, CHM7, MGO, PTPTT #### [facility] [address] [place] [address] [facility] [address] [place] [address] HEMOGRAM (CBC AND Collected: 06/11/2018 Status: F Source: [facility]) 3:26 AM [facility] REPOSITORY TYPE CODE TESTS RESULT OUT OF REFERENCE UNITS RANGE LAB WBC 3.99-11.19 K/uL WBC Count 7.00 LAB RBC 3.91-5.04 M/uL Low RBC Count 2.98 LAB HGB 11.4-15.2 g/dL Low Hemoglobin 8.9 LAB HCT 34.9-44.3 % Low Hematocrit 27.5 LAB MCV 79.6-97.7 fL Mean Cell Volume 92.3 LAB MCH 25.9-33.9 pg Mean Cell Hgb 29.9 LAB MCHC 31.4-35.9 g/dL Mean Cell Hgb Conc 32.4 LAB RDW 10.8-14.9 % RBC High Distribution 16.2 LAB PLT 150-393 K/uL Platelet Count 260 LAB MPV 8.5-12.2 fL Mean Platelet Volume 10.1 LAB NRBC 0.0-0.2 /100 WBC NUCLEATED RBC 0.0 Performed By: #### HEMOGC, CHM7, MGO, PTPTT #### [facility] [address] [place] [address] [place] [address] CHEM 7 Collected: 06/11/2018 Status: F Source: [facility] 3:26 AM [facility] REPOSITORY TYPE CODE TESTS RESULT OUT OF REFERENCE UNITS RANGE LAB BUN 7-22 mg/dL Low BUN 3 LAB NA 133-143 mmol/L Sodium 133 LAB K 3.5-5.0 mmol/L Potassium 3.6 LAB CL 98-108 mmol/L Chloride 104 LAB CO2 22-30 mmol/L Carbon Dioxide 23 LAB GLUC 70-99 mg/dL Glucose High 107 LAB CREA 0.50-1.20 mg/dL Creatinine 0.52 LAB GAP 7-17 mmol/L Anion Gap 10 LAB BC BUN/CREA Ratio 6 LAB [facility] 278-305 mOsm/kg Low Osmolality 276 (Calc) LAB GFR >60 mL/min/1.73 sqM Est GFR,non >60 Dutch LAB GFRA >60 mL/min/1.73 sqM Est GFR, >60 Performed By: #### HEMOGC, CHM7, MGO, PTPTT #### [facility] [address] [place] [address] [facility] [address] [place] [address] MAGNESIUM Collected: 06/11/2018 Status: F Source: [facility] 3:26 AM [facility] REPOSITORY TYPE CODE TESTS RESULT OUT OF REFERENCE UNITS RANGE LAB MG 1.6-2.6 mg/dL Magnesium 1.6 Performed By: #### HEMOGC, CHM7, MGO, PTPTT #### [facility] [address] [place] [address] [facility] [address] [place] [address] PT*PTT Collected: 06/11/2018 Status: F Source: [facility] 3:26 AM [facility] REPOSITORY TYPE CODE TESTS RESULT OUT OF RANGE REFERENCE UNITS LAB PT 11.9-14.2 sec High PT 15.9 LAB INR 0.9-1.1 High INR 1.3 LAB PTT 24.0-34.3 sec High PTT 38.6 Performed By: #### HEMOGC, CHM7, MGO, PTPTT #### [facility] [address] [place] [address] [facility] [address] [place] [address] HEMOGRAM (CBC AND Collected: 06/10/2018 Status: F Source: [facility]) 2:44 AM [facility] REPOSITORY TYPE CODE TESTS RESULT OUT OF REFERENCE UNITS RANGE LAB WBC 3.99-11.19 K/uL WBC Count 6.79 LAB RBC 3.91-5.04 M/uL Low RBC Count 3.05 LAB HGB 11.4-15.2 g/dL Low Hemoglobin 9.0 LAB HCT 34.9-44.3 % Low Hematocrit 27.8 LAB MCV 79.6-97.7 fL Mean Cell Volume 91.1 LAB MCH 25.9-33.9 pg Mean Cell Hgb 29.5 LAB MCHC 31.4-35.9 g/dL Mean Cell Hgb Conc 32.4 LAB RDW 10.8-14.9 % RBC High Distribution 16.1 LAB PLT 150-393 K/uL Platelet Count 252 LAB MPV 8.5-12.2 fL Mean Platelet Volume 10.2 LAB NRBC 0.0-0.2 /100 WBC NUCLEATED RBC 0.0 Performed By: #### MANOJ, HELDER, MGO, PTPTT #### [facility] [address] [place] [address] [facility] [address] [place] [address] CHEM 7 Collected: 06/10/2018 Status: F Source: [facility] 2:44 AM [facility] REPOSITORY TYPE CODE TESTS RESULT OUT OF REFERENCE UNITS RANGE LAB BUN 7-22 mg/dL Low BUN 2 LAB NA 133-143 mmol/L Sodium 140 Result Comment: Results inconsistent with the patient's previous results LAB K 3.5-5.0 mmol/L Potassium 3.5 LAB CL 98-108 mmol/L Chloride High 110 Result Comment: Results inconsistent with the patient's previous results LAB CO2 22-30 mmol/L Carbon Dioxide 22 LAB GLUC 70-99 mg/dL Glucose High 115 LAB CREA 0.50-1.20 mg/dL Creatinine 0.62 LAB GAP 7-17 mmol/L Anion Gap 12 LAB BC BUN/CREA Ratio 3 LAB [facility] 278-305 mOsm/kg Osmolality (Calc) 289 LAB GFR >60 mL/min/1.73sq M Est GFR,non >60 LAB GFRA >60 mL/min/1.73sq M Est GFR, >60 Performed By: #### MANOJ, HELDER, MGO, PTPTT #### [facility] [address] [place] [phone] [place] [address] [address] [place] [address] MAGNESIUM Collected: 06/10/2018 Status: F Source: [facility] 2:44 AM [facility] REPOSITORY TYPE CODE TESTS RESULT OUT OF REFERENCE UNITS RANGE LAB MG 1.6-2.6 mg/dL Magnesium 1.8 Performed By: #### HEMDENNYC, CHM7, MGO, PTPTT #### [facility] [address] [place] [address] [facility] [address] [place] [address] PT*PTT Collected: 06/10/2018 Status: F Source: [facility] 2:44 AM [facility] REPOSITORY TYPE CODE TESTS RESULT OUT OF RANGE REFERENCE UNITS LAB PT 11.9-14.2 sec High PT 16.8 LAB INR 0.9-1.1 High INR 1.4 LAB PTT 24.0-34.3 sec High PTT 35.2 Performed By: #### HEMOGC, CHM7, MGO, PTPTT #### [facility] [address] [place] [address] [place] [id number] ACTH Collected: 06/09/2018 Status: F Source: [facility] 3:18 PM [facility] REPOSITORY TYPE CODE TESTS RESULT OUT OF RANGE REFERENCE UNITS LAB ACTH 9.0-50.0 pg/mL Low ACTH <5.0 Performed By: #### ACTH #### [facility] [address] [place] [address] [place] [id number] CORTISOL Collected: 06/09/2018 Status: F Source: [facility] 6:14 AM [facility] REPOSITORY TYPE CODE TESTS RESULT OUT OF REFERENCE UNITS RANGE LAB KARLA 3.09-22.40 mcg/dL Cortisol 10.81 Performed By: #### KARLA #### [facility] [address] [place] [address] [place] [id number] HEMOGRAM (CBC AND Collected: 06/09/2018 Status: F Source: [facility] PLATELET) 4:02 AM [facility] REPOSITORY TYPE CODE TESTS RESULT OUT OF REFERENCE UNITS RANGE LAB WBC 3.99-11.19 K/uL WBC Count 6.26 LAB RBC 3.91-5.04 M/uL Low RBC Count 3.11 LAB HGB 11.4-15.2 g/dL Low Hemoglobin 9.3 LAB HCT 34.9-44.3 % Low Hematocrit 29.0 LAB MCV 79.6-97.7 fL Mean Cell Volume 93.2 LAB MCH 25.9-33.9 pg Mean Cell Hgb 29.9 LAB MCHC 31.4-35.9 g/dL Mean Cell Hgb Conc 32.1 LAB RDW 10.8-14.9 % RBC High Distribution 16.2 LAB PLT 150-393 K/uL Platelet Count 241 LAB MPV 8.5-12.2 fL Mean Platelet Volume 9.9 LAB NRBC 0.0-0.2 /100 WBC NUCLEATED RBC 0.0 Performed By: #### HEMOGC, CHM7, MGO, PTPTT, KARLA, IPB #### [facility] [address] [place] [address] [facility] [address] [place] [address] CHEM 7 Collected: 06/09/2018 Status: F Source: [facility] 4:02 AM [facility] REPOSITORY TYPE CODE TESTS RESULT OUT OF REFERENCE UNITS RANGE LAB BUN 7-22 mg/dL Low BUN 3 LAB NA 133-143 mmol/L Low Sodium 131 LAB K 3.5-5.0 mmol/L Low Potassium 3.1 LAB CL 98-108 mmol/L Chloride 100 LAB CO2 22-30 mmol/L Carbon Dioxide 23 LAB GLUC 70-99 mg/dL Glucose High 104 LAB CREA 0.50-1.20 mg/dL Creatinine 0.57 LAB GAP 7-17 mmol/L Anion Gap 11 LAB BC BUN/CREA Ratio 5 LAB [facility] 278-305 mOsm/kg Low Osmolality 271 (Calc) LAB GFR >60 mL/min/1.73 sqM Est GFR,non >60 Dutch LAB GFRA >60 mL/min/1.73 sqM Est GFR, >60 Performed By: #### HEMOGC, CHM7, MGO, PTPTT, KARLA, IPB #### [facility] [address] [place] [address] [place] [address] MAGNESIUM Collected: 06/09/2018 Status: F Source: [facility] 4:02 AM [facility] REPOSITORY TYPE CODE TESTS RESULT OUT OF REFERENCE UNITS RANGE LAB MG 1.6-2.6 mg/dL Magnesium 1.8 Performed By: #### HEMOGC, CHM7, MGO, PTPTT, KARLA, IPB #### [facility] [address] [place] [address] [facility] [address] [place] [address] 15870 PT*PTT Collected: 06/09/2018 Status: F Source: [facility] 4:02 AM [facility] REPOSITORY TYPE CODE TESTS RESULT OUT OF RANGE REFERENCE UNITS LAB PT 11.9-14.2 sec High PT 17.3 LAB INR 0.9-1.1 High INR 1.4 LAB PTT 24.0-34.3 sec High alert PTT 120.8 Performed By: #### HEMOGC, CHM7, MGO, PTPTT, KARLA, IPB #### [facility] [address] [place] [id number] [place] [address] [address] [place] [address] CORTISOL Collected: 06/09/2018 Status: F Source: [facility] 4:02 AM [facility] REPOSITORY TYPE CODE TESTS RESULT OUT OF REFERENCE UNITS RANGE LAB KARLA 3.09-22.40 mcg/dL Low Cortisol 1.54 Performed By: #### HEMOGC, CHM7, MGO, PTPTT, KARLA, IPB #### [facility] [address] [place] [address] [address] [place] [address] INORGANIC PHOSPHATE Collected: 06/09/2018 Status: F Source: [facility] 4:02 AM [facility] REPOSITORY TYPE CODE TESTS RESULT OUT OF REFERENCE UNITS RANGE LAB IP 2.2-4.6 mg/dL Inorg Phosphate 3.1 Performed By: #### HEMOGC, CHM7, MGO, PTPTT, KARLA, IPB #### [facility] [address] [place] [id number] [place] [address] [address] HEMOGRAM (CBC AND Collected: 06/08/2018 Status: F Source: [facility] PLATELET) 2:56 AM [facility] REPOSITORY TYPE CODE TESTS RESULT OUT OF REFERENCE UNITS RANGE LAB WBC 3.99-11.19 K/uL WBC Count 7.05 LAB RBC 3.91-5.04 M/uL Low RBC Count 3.21 LAB HGB 11.4-15.2 g/dL Low Hemoglobin 9.7 LAB HCT 34.9-44.3 % Low Hematocrit 29.7 LAB MCV 79.6-97.7 fL Mean Cell Volume 92.5 LAB MCH 25.9-33.9 pg Mean Cell Hgb 30.2 LAB MCHC 31.4-35.9 g/dL Mean Cell Hgb Conc 32.7 LAB RDW 10.8-14.9 % RBC High Distribution 16.2 LAB PLT 150-393 K/uL Platelet Count 236 LAB MPV 8.5-12.2 fL Mean Platelet Volume 10.0 LAB NRBC 0.0-0.2 /100 WBC NUCLEATED RBC 0.0 Performed By: #### HEMOGC, CHM7, MGO, PTPTT, KARLA, TSH, PROCAL #### [facility] [id number] [place] [address] [address] CHEM 7 Collected: 06/08/2018 Status: F Source: [facility] 2:56 AM [facility] REPOSITORY TYPE CODE TESTS RESULT OUT OF REFERENCE UNITS RANGE LAB BUN 7-22 mg/dL Low BUN 3 LAB NA 133-143 mmol/L Low Sodium 132 LAB K 3.5-5.0 mmol/L Low Potassium 3.3 LAB CL 98-108 mmol/L Chloride 101 LAB CO2 22-30 mmol/L Carbon Dioxide 23 LAB GLUC 70-99 mg/dL Glucose High 108 LAB CREA 0.50-1.20 mg/dL Creatinine 0.62 LAB GAP 7-17 mmol/L Anion Gap 11 LAB BC BUN/CREA Ratio 5 LAB [facility] 278-305 mOsm/kg Low Osmolality 274 (Calc) LAB GFR >60 mL/min/1.73 sqM Est GFR,non >60 Dutch LAB GFRA >60 mL/min/1.73 sqM Est GFR, >60 Performed By: #### HEMOGC, CHM7, MGO, PTPTT, KARLA, TSH, PROCAL #### [facility] [id number] [place] [address] MAGNESIUM Collected: 06/08/2018 Status: F Source: [facility] 2:56 AM [facility] REPOSITORY TYPE CODE TESTS RESULT OUT OF REFERENCE UNITS RANGE LAB MG 1.6-2.6 mg/dL Magnesium 1.8 Performed By: #### HEMOGC, CHM7, MGO, PTPTT, KARLA, TSH, PROCAL #### [facility] [address] [place] [address] [facility] [address] [place] [address]857 PT*PTT Collected: 06/08/2018 Status: F Source: [facility] 2:56 AM [facility] REPOSITORY TYPE CODE TESTS RESULT OUT OF RANGE REFERENCE UNITS LAB PT 11.9-14.2 sec High PT 16.3 LAB INR 0.9-1.1 High INR 1.3 LAB PTT 24.0-34.3 sec High PTT 42.4 Performed By: #### HEMOGC, CHM7, MGO, PTPTT, KARLA, TSH, PROCAL #### [facility] [address] [place] [address] [place] [address] CORTISOL Collected: 06/08/2018 Status: F Source: [facility] 2:56 AM [facility] REPOSITORY TYPE CODE TESTS RESULT OUT OF REFERENCE UNITS RANGE LAB KARLA 3.09-22.40 mcg/dL Low Cortisol 2.16 Performed By: #### HEMOGC, CHM7, MGO, PTPTT, KARLA, TSH, PROCAL #### [facility] [address] [place] [address] [place] [address] TSH, HIGH SENSITIVITY Collected: 06/08/2018 Status: F Source: [facility] 2:56 AM [facility] REPOSITORY TYPE CODE TESTS RESULT OUT OF REFERENCE UNITS RANGE LAB TSH 0.550-4.780 uIU/mL TSH, High Sensitivity 2.305 Performed By: #### HEMOGC, CHM7, MGO, PTPTT, KARLA, TSH, PROCAL #### [facility] [address] [place] [address] [facility] [address] [place] [address] PROCALCITONIN Collected: 06/08/2018 Status: F Source: [facility] 2:56 [facility] REPOSITORY TYPE CODE TESTS RESULT OUT OF REFERENCE UNITS RANGE LAB PROCAL 0.00-0.50 ng/mL PROCALCITONIN 0.13 Result Comment: In adult, critically ill ICU patients, studies [...] hours) can be associated with such low levels. Several non-infecti ous clinical conditions such as leroy, trauma, surgery and cardiogenic shock have been associated with elevated procalcitonin levels. All procalcitonin results should be interpreted in association with the patient's clinical condition and all laboratory findings. The cut off levels noted above for this assay should not be applied to , emergency department or immunocompromised patients. Performed By: #### HEMOGC, CHM7, MGO, PTPTT, KARLA, TSH, PROCAL #### [facility] [address] [place] [address] [place] [address] OSMOLALITY, URINE - Collected: 06/07/2018 Status: F Source: [facility] RANDOM 8:40 AM [facility] REPOSITORY TYPE CODE TESTS RESULT OUT OF RANGE REFERENCE UNITS LAB UOSM 300-900 mOsm/kg Low Urine 283 Osmolality, 24 hr Performed By: #### UOSMR, ULYTR #### [facility] [address] [place] [address] [place] [address] LYTES (NA,K,CL), URINE Collected: 06/07/2018 Status: F Source: [facility] RANDOM 8:40 AM [facility] REPOSITORY TYPE CODE TESTS RESULT OUT OF REFERENCE UNITS RANGE LAB NAU1 mmol/L URINE SODIUM 62 Result Comment: The reference range has not been established for random urine specimens. The test result should be integrated into the clinical context for interpretation. LAB KU1 mmol/L URINE POTASSIUM 32.2 Result Comment: The reference range has not been established for random urine specimens. The test result should be integrated into the clinical context for interpretation. LAB CLU1 mmol/L URINE CHLORIDE 72 Result Comment: The reference range has not been established for random urine specimens. The test result should be integrated into the clinical context for interpretation. Performed By: #### UOSMR, ULYTR #### [facility] [address] [place] [address] [facility] [address] [place], [place] [address] URINALYSIS REFLEX Collected: 06/07/2018 Status: F Source: [facility] CULTURE 8:40 AM [facility] REPOSITORY TYPE CODE TESTS RESULT OUT OF RANGE REFERENCE UNITS LAB ADULT LITERACY INSTRUCTOR Clear Appearance Urine Clear LAB SPGR 1.001-1.035 Specific [place] urine 1.016 LAB UGL Negative mg/dL Glucose Urine Negative LAB UKET Negative Ketones Abnormal Urine Trace LAB UBLD Negative Blood Urine Negative LAB UPH 5.0-7.0 pH Urine 6.5 LAB UPR Negative mg/dL Protein Abnormal Urine Trace LAB UNTR Negative Nitrites Urine Negative LAB ULEU Negative Leukocyte Esterase Negative LAB COLR Yellow Color Yellow LAB UURO <2.0 EU/dL Urobilinogen 0.2 urine LAB UWBC 0-5 /HPF WBC Urine 0-5 LAB URBC 0-2 /HPF RBC Urine 0-2 LAB BACT Absent Bacteria Absent LAB UCOM COMMENT URINE None LAB EPIS /HPF Squamous Epithelial 3+ LAB UCRYS Negative CRYSTALS URINE CYSTINE Performed By: #### URIN1 #### [facility] [address] [place] [address] [place] [address] XR CHEST AP PORTABLE Observed: 06/07/2018 Status: F Source: [facility] 8:16 AM [facility] REPOSITORY EXAM: XR CHEST AP PORTABLE, 06/07/2018 07:37 AM COMPARISON: May 31, 2018 CLINICAL INDICATIONS: Ongiong fevers, eval for pneumonia RELEVANT CLINICAL HISTORY: FINDINGS: (Adequate technique) Life Support Devices: None Chest Wall: Stable osseous structures Alejandro: Normal Mediastinum: Normal Pleural Spaces: Left pleural effusion has decreased. No definite pneumothorax. Lungs: Improved left basilar atelectasis Cardiac Silhouette: Stable heart size Thoracic Aorta: Normal Pulmonary Vessels: Normal, without PVH IMPRESSION: Decreased left pleural effusion with improved left basilar atelectasis. Observed: 06/07/2018 Status: F Source: [facility] BLOOD:ROUTINE II 7:37 AM [facility] REPOSITORY SOURCE: BLOOD, PERIPHERAL: Left Hand RESULT: NO GROWTH DAY 5 OF 5 REPORT STATUS: 06/12/2018 FINAL Performed By: #### FAST2 #### [address] [address] Blood Cultures processed at: [facility] Observed: 06/07/2018 Status: F Source: [facility] BLOOD:ROUTINE I 7:30 AM [facility] REPOSITORY SOURCE: BLOOD, PERIPHERAL: Right Hand RESULT: NO GROWTH DAY 5 OF 5 REPORT STATUS: 06/12/2018 FINAL Performed By: #### FAST #### [facility] [address] [place] [address] Blood Cultures processed at: [facility] HEMOGRAM (CBC AND Collected: 06/07/2018 Status: F Source: [facility] PLATELET) 3:31 AM [facility] REPOSITORY TYPE CODE TESTS RESULT OUT OF REFERENCE UNITS RANGE LAB WBC 3.99-11.19 K/uL WBC Count 8.76 LAB RBC 3.91-5.04 M/uL Low RBC Count 3.29 LAB HGB 11.4-15.2 g/dL Low Hemoglobin 9.7 LAB HCT 34.9-44.3 % Low Hematocrit 30.2 LAB MCV 79.6-97.7 fL Mean Cell Volume 91.8 LAB MCH 25.9-33.9 pg Mean Cell Hgb 29.5 LAB MCHC 31.4-35.9 g/dL Mean Cell Hgb Conc 32.1 LAB RDW 10.8-14.9 % RBC High Distribution 16.8 LAB PLT 150-393 K/uL Platelet Count 231 LAB MPV 8.5-12.2 fL Mean Platelet Volume 10.2 LAB NRBC 0.0-0.2 /100 WBC NUCLEATED RBC 0.0 Performed By: #### HEMOGC, CHM7, MGO, PTPTT, OSMO #### [facility] [address] [place] [address] [facility] [address] [place] [address] CHEM 7 Collected: 06/07/2018 Status: F Source: [facility] 3:31 AM [facility] REPOSITORY TYPE CODE TESTS RESULT OUT OF REFERENCE UNITS RANGE LAB BUN 7-22 mg/dL Low BUN 4 LAB NA 133-143 mmol/L Low Sodium 130 LAB K 3.5-5.0 mmol/L Potassium 3.6 LAB CL 98-108 mmol/L Chloride 100 LAB CO2 22-30 mmol/L Carbon Dioxide 23 LAB GLUC 70-99 mg/dL Glucose 83 LAB CREA 0.50-1.20 mg/dL Creatinine 0.61 LAB GAP 7-17 mmol/L Anion Gap 11 LAB BC BUN/CREA Ratio 7 LAB [facility] 278-305 mOsm/kg Low Osmolality 269 (Calc) LAB GFR >60 mL/min/1.73 sqM Est GFR,non >60 Dutch LAB GFRA >60 mL/min/1.73 sqM Est GFR, >60 Performed By: #### HEMOGC, CHM7, MGO, PTPTT, OSMO #### [facility] [address] [place] [address] [place] [address] MAGNESIUM Collected: 06/07/2018 Status: F Source: [facility] 3:[address] [place] [address] REPOSITORY TYPE CODE TESTS RESULT OUT OF REFERENCE UNITS RANGE LAB MG 1.6-2.6 mg/dL Magnesium 1.8 Performed By: #### HEMOGC, CHM7, MGO, PTPTT, OSMO #### [facility] [address] [place] [address] [place] [address] PT*PTT Collected: 06/07/2018 Status: F Source: [facility] 3:31 [facility] REPOSITORY TYPE CODE TESTS RESULT OUT OF RANGE REFERENCE UNITS LAB PT 11.9-14.2 sec High PT 16.1 LAB INR 0.9-1.1 High INR 1.3 LAB PTT 24.0-34.3 sec High PTT 37.4 Performed By: #### HEMOGC, CHM7, MGO, PTPTT, OSMO #### [facility] [address] [place] [address] [place] [address] OSMOLALITY Collected: 06/07/2018 Status: F Source: [facility] 3:31 [facility] REPOSITORY TYPE CODE TESTS RESULT OUT OF REFERENCE UNITS RANGE LAB OSMO 278-305 mOsm/kg Low Osmolality 268 Performed By: #### HEMOGC, CHM7, MGO, PTPTT, OSMO #### [facility] [address] [place] [address] [place], [place] [address] CT ABDOMEN/PELVIS WITH Observed: 06/06/2018 Status: F Source: [facility] 3:34 PM [facility] REPOSITORY EXAM: CT ABDOMEN/PELVIS WITH CONTRAST, 06/06/2018 15:08 [...] in the visualized skeleton. Mild generalized osteopenia IMPRESSION: 1. High riding cecum with some [...] trauma grade: N/A Kidney trauma grade: N/A GRAM (CBC AND Collected: 06/06/2018 Status: F Source: [facility] PLATELET) 3:11 AM [facility] REPOSITORY TYPE CODE TESTS RESULT OUT OF REFERENCE UNITS RANGE LAB WBC 3.99-11.19 K/uL WBC Count 7.05 LAB RBC 3.91-5.04 M/uL Low RBC Count 3.23 LAB HGB 11.4-15.2 g/dL Low Hemoglobin 9.9 LAB HCT 34.9-44.3 % Low Hematocrit 30.3 LAB MCV 79.6-97.7 fL Mean Cell Volume 93.8 LAB MCH 25.9-33.9 pg Mean Cell Hgb 30.7 LAB MCHC 31.4-35.9 g/dL Mean Cell Hgb Conc 32.7 LAB RDW 10.8-14.9 % RBC High Distribution 16.8 LAB PLT 150-393 K/uL Platelet Count 205 LAB MPV 8.5-12.2 fL Mean Platelet Volume 10.2 LAB NRBC 0.0-0.2 /100 WBC NUCLEATED RBC 0.0 Performed By: #### HEMOGC, CHM7, MGO, PTPTT #### [facility] [address] [place] [address] CHEM 7 Collected: 06/06/2018 Status: F Source: [facility] 3:11 AM [facility] REPOSITORY TYPE CODE TESTS RESULT OUT OF REFERENCE UNITS RANGE LAB BUN 7-22 mg/dL Low BUN 4 LAB NA 133-143 mmol/L Low Sodium 131 LAB K 3.5-5.0 mmol/L Potassium 3.7 LAB CL 98-108 mmol/L Chloride 102 LAB CO2 22-30 mmol/L Carbon Dioxide 22 LAB GLUC 70-99 mg/dL Glucose 97 LAB CREA 0.50-1.20 mg/dL Creatinine 0.55 LAB GAP 7-17 mmol/L Anion Gap 11 LAB BC BUN/CREA Ratio 7 LAB [facility] 278-305 mOsm/kg Low Osmolality 272 (Calc) LAB GFR >60 mL/min/1.73 sqM Est GFR,non >60 Dutch LAB GFRA >60 mL/min/1.73 sqM Est GFR, >60 Performed By: #### HEMOGC, CHM7, MGO, PTPTT #### [facility] [address] [place] [address] [place] [address] MAGNESIUM Collected: 06/06/2018 Status: F Source: [facility] 3:11 AM [facility] REPOSITORY TYPE CODE TESTS RESULT OUT OF REFERENCE UNITS RANGE LAB MG 1.6-2.6 mg/dL Magnesium 2.0 Performed By: #### HEMOGC, CHM7, MGO, PTPTT #### [facility] [address] [place] [address] [place] [address] PT*PTT Collected: 06/06/2018 Status: F Source: [facility] 3:11 AM [facility] REPOSITORY TYPE CODE TESTS RESULT OUT OF RANGE REFERENCE UNITS LAB PT 11.9-14.2 sec High PT 16.2 LAB INR 0.9-1.1 High INR 1.3 LAB PTT 24.0-34.3 sec High PTT 43.9 Performed By: #### HEMOGC, CHM7, MGO, PTPTT #### [facility] [address] [place] [id number] [place] [address] [address] [place] [address] HEMOGRAM (CBC AND Collected: 06/05/2018 Status: F Source: [facility] PLATELET) 3:15 AM [facility] REPOSITORY TYPE CODE TESTS RESULT OUT OF REFERENCE UNITS RANGE LAB WBC 3.99-11.19 K/uL WBC Count 6.59 LAB RBC 3.91-5.04 M/uL Low RBC Count 3.24 LAB HGB 11.4-15.2 g/dL Low Hemoglobin 9.8 LAB HCT 34.9-44.3 % Low Hematocrit 30.3 LAB MCV 79.6-97.7 fL Mean Cell Volume 93.5 LAB MCH 25.9-33.9 pg Mean Cell Hgb 30.2 LAB MCHC 31.4-35.9 g/dL Mean Cell Hgb Conc 32.3 LAB RDW 10.8-14.9 % RBC High Distribution 17.0 LAB PLT 150-393 K/uL Platelet Count 177 LAB MPV 8.5-12.2 fL Mean Platelet Volume 10.0 LAB NRBC 0.0-0.2 /100 WBC NUCLEATED RBC 0.0 Performed By: #### HEMCHELITA, VINICIOM7, MGMarcelino, JULIA, [place] #### [facility] [address] [place] [address] CHEM 7 Collected: 06/05/2018 Status: F Source: [facility] 3:15 AM [facility] REPOSITORY TYPE CODE TESTS RESULT OUT OF REFERENCE UNITS RANGE LAB BUN 7-22 mg/dL Low BUN 4 LAB NA 133-143 mmol/L Sodium 134 LAB K 3.5-5.0 mmol/L Low Potassium 3.2 LAB CL 98-108 mmol/L Chloride 102 LAB CO2 22-30 mmol/L Carbon Dioxide 24 LAB GLUC 70-99 mg/dL Glucose 95 LAB CREA 0.50-1.20 mg/dL Creatinine 0.54 LAB GAP 7-17 mmol/L Anion Gap 11 LAB BC BUN/CREA Ratio 7 LAB [facility] 278-305 mOsm/kg Low Osmolality 277 (Calc) LAB GFR >60 mL/min/1.73 sqM Est GFR,non >60 Dutch LAB GFRA >60 mL/min/1.73 sqM Est GFR, >60 Performed By: #### HEMOGC, CHM7, MGO, PTPTT, [place] #### [facility] [address] [address] [facility] [address] [address] MAGNESIUM Collected: 06/05/2018 Status: F Source: [facility] 3:15 AM [facility] REPOSITORY TYPE CODE TESTS RESULT OUT OF REFERENCE UNITS RANGE LAB MG 1.6-2.6 mg/dL Magnesium 1.6 Performed By: #### HEMOGC, CHM7, MGO, PTPTT, CA #### [facility] [address] [place] [address] [place] [address] PT*PTT Collected: 06/05/2018 Status: F Source: [facility] 3:15 AM [facility] REPOSITORY TYPE CODE TESTS RESULT OUT OF RANGE REFERENCE UNITS LAB PT 11.9-14.2 sec High PT 17.5 LAB INR 0.9-1.1 High INR 1.4 LAB PTT 24.0-34.3 sec High PTT 55.7 Performed By: #### HEMOGC, CHM7, MGO, PTPTT, CA #### [facility] [address] [place] [address] [place] [address] CALCIUM Collected: 06/05/2018 Status: F Source: [facility] 3:15 AM [facility] REPOSITORY TYPE CODE TESTS RESULT OUT OF REFERENCE UNITS RANGE LAB IP 2.2-4.6 mg/dL Inorg Phosphate 2.2 Performed By: #### HEMOGC, CHM7, MGO, PTPTT, [place] #### [facility] [address] [place] [address] [place] [address] XR ABDOMEN 1 VIEW Observed: 06/04/2018 Status: F Source: [facility] PORTABLE 2:16 PM [facility] REPOSITORY EXAM: XR ABDOMEN 1 VIEW PORTABLE, 05/31/2018 [...] structures are unremarkable for the patient's age. IMPRESSION: No x-ray findings of bowel obstruction or perforation on this single supine view. GRAM (CBC AND Collected: 06/04/2018 Status: F Source: [facility] PLATELET) 3:02 AM [facility] REPOSITORY TYPE CODE TESTS RESULT OUT OF REFERENCE UNITS RANGE LAB WBC 3.99-11.19 K/uL WBC Count 7.94 LAB RBC 3.91-5.04 M/uL Low RBC Count 3.53 LAB HGB 11.4-15.2 g/dL Low Hemoglobin 10.9 LAB HCT 34.9-44.3 % Low Hematocrit 33.5 LAB MCV 79.6-97.7 fL Mean Cell Volume 94.9 LAB MCH 25.9-33.9 pg Mean Cell Hgb 30.9 LAB MCHC 31.4-35.9 g/dL Mean Cell Hgb Conc 32.5 LAB RDW 10.8-14.9 % RBC High Distribution 17.2 LAB PLT 150-393 K/uL Platelet Count 208 LAB MPV 8.5-12.2 fL Mean Platelet Volume 10.2 LAB NRBC 0.0-0.2 /100 WBC NUCLEATED RBC 0.0 Performed By: #### HEMOGC, PTPTT, CHM7, MGO #### [facility] [address] [address] PT*PTT Collected: 06/04/2018 Status: F Source: [facility] 3:02 AM [facility] REPOSITORY TYPE CODE TESTS RESULT OUT OF RANGE REFERENCE UNITS LAB PT 11.9-14.2 sec High PT 17.5 LAB INR 0.9-1.1 High INR 1.4 LAB PTT 24.0-34.3 sec High PTT 37.3 Result Comment: Results inconsistent with the patient's previous results Performed By: #### HEMOGC, PTPTT, CHM7, MGO #### [facility] [address] [address] CHEM 7 Collected: 06/04/2018 Status: F Source: [facility] 3:02 AM [facility] REPOSITORY TYPE CODE TESTS RESULT OUT OF REFERENCE UNITS RANGE LAB BUN 7-22 mg/dL Low BUN 4 LAB NA 133-143 mmol/L Low Sodium 132 LAB K 3.5-5.0 mmol/L Low Potassium 3.3 LAB CL 98-108 mmol/L Chloride 101 LAB CO2 22-30 mmol/L Low Carbon Dioxide 21 LAB GLUC 70-99 mg/dL Glucose 90 LAB CREA 0.50-1.20 mg/dL Creatinine 0.62 LAB GAP 7-17 mmol/L Anion Gap 13 LAB BC BUN/CREA Ratio 6 LAB [facility] 278-305 mOsm/kg Low Osmolality 273 (Calc) LAB GFR >60 mL/min/1.73 sqM Est GFR,non >60 Dutch LAB GFRA >60 mL/min/1.73 sqM Est GFR, >60 Performed By: #### HEMOGC, JULIA, CHM7, MGO #### [facility] [address] [place] [address] MAGNESIUM Collected: 06/04/2018 Status: F Source: [facility] 3:02 AM [facility] REPOSITORY TYPE CODE TESTS RESULT OUT OF REFERENCE UNITS RANGE LAB MG 1.6-2.6 mg/dL Magnesium 1.8 Performed By: #### HEMOGC, PTPGIOVANNY, CHM7, MGO #### [facility] [address] [address] HEMOGRAM (CBC AND Collected: 06/03/2018 Status: F Source: [facility] PLATELET) 2:37 AM [facility] REPOSITORY TYPE CODE TESTS RESULT OUT OF REFERENCE UNITS RANGE LAB WBC 3.99-11.19 K/uL WBC Count 5.64 LAB RBC 3.91-5.04 M/uL Low RBC Count 3.35 LAB HGB 11.4-15.2 g/dL Low Hemoglobin 10.2 LAB HCT 34.9-44.3 % Low Hematocrit 31.2 LAB MCV 79.6-97.7 fL Mean Cell Volume 93.1 LAB MCH 25.9-33.9 pg Mean Cell Hgb 30.4 LAB MCHC 31.4-35.9 g/dL Mean Cell Hgb Conc 32.7 LAB RDW 10.8-14.9 % RBC High Distribution 16.9 LAB PLT 150-393 K/uL Platelet Count 198 LAB MPV 8.5-12.2 fL Mean Platelet Volume 9.9 LAB NRBC 0.0-0.2 /100 WBC NUCLEATED RBC 0.0 Performed By: #### HEMOGC, CHM7, MGO #### [facility] [address] [place] [id number] [facility] [facility] [address] [place] [address] #### PTPTT #### [facility] (DEFAULT) [address] [place] [address] CHEM 7 Collected: 06/03/2018 Status: F Source: [facility] 2:37 AM [facility] REPOSITORY TYPE CODE TESTS RESULT OUT OF REFERENCE UNITS RANGE LAB BUN 7-22 mg/dL Low BUN 3 LAB NA 133-143 mmol/L Low Sodium 132 LAB K 3.5-5.0 mmol/L Low Potassium 3.4 LAB CL 98-108 mmol/L Chloride 103 LAB CO2 22-30 mmol/L Low Carbon Dioxide 18 LAB GLUC 70-99 mg/dL Glucose 91 LAB CREA 0.50-1.20 mg/dL Creatinine 0.69 LAB GAP 7-17 mmol/L Anion Gap 14 LAB BC BUN/CREA Ratio 4 LAB [facility] 278-305 mOsm/kg Low Osmolality 273 (Calc) LAB GFR >60 mL/min/1.73 sqM Est GFR,non >60 Dutch LAB GFRA >60 mL/min/1.73 sqM Est GFR, >60 Performed By: #### HEMOGC, CHM7, MGO #### [facility] [address] [place] [address] [facility] [address] [place] [address] #### PTPTT #### [facility] (DEFAULT) [address] [address] MAGNESIUM Collected: 06/03/2018 Status: F Source: [facility] 2:37 AM [facility] REPOSITORY TYPE CODE TESTS RESULT OUT OF REFERENCE UNITS RANGE LAB MG 1.6-2.6 mg/dL Magnesium 1.7 Performed By: #### HEMOGC, CHM7, MGO #### [facility] [address] [place] [address] [facility] [address] [place] [address] #### PTPTT #### [facility] (DEFAULT) [address] [place] [address] PT*PTT Collected: 06/03/2018 Status: X Source: [facility] 2:37 AM [facility] REPOSITORY TYPE CODE TESTS RESULT OUT OF REFERENCE UNITS RANGE LAB PTPTT PT*PTT This result has been cancelled. Performed By: #### HEMOGC, VINICIOM7, MGO #### [facility] [address] [place] [address] [facility] [address] [place] [address] #### PTPTT #### [facility] (DEFAULT) [address] [place] [address] HEMOGRAM (CBC AND Collected: 06/02/2018 Status: F Source: [facility] PLATELET) 3:32 AM [facility] REPOSITORY TYPE CODE TESTS RESULT OUT OF REFERENCE UNITS RANGE LAB WBC 3.99-11.19 K/uL WBC Count 5.38 LAB RBC 3.91-5.04 M/uL Low RBC Count 3.13 LAB HGB 11.4-15.2 g/dL Low Hemoglobin 9.6 LAB HCT 34.9-44.3 % Low Hematocrit 29.1 LAB MCV 79.6-97.7 fL Mean Cell Volume 93.0 LAB MCH 25.9-33.9 pg Mean Cell Hgb 30.7 LAB MCHC 31.4-35.9 g/dL Mean Cell Hgb Conc 33.0 LAB RDW 10.8-14.9 % RBC High Distribution 16.8 LAB PLT 150-393 K/uL Platelet Count 190 LAB MPV 8.5-12.2 fL Mean Platelet Volume 9.9 LAB NRBC 0.0-0.2 /100 WBC NUCLEATED RBC 0.0 Performed By: #### HEMOGC, CHM7, MGO, PTPTT #### [facility] [address] [place] [address] [facility] [address] [place] [address] CHEM 7 Collected: 06/02/2018 Status: F Source: [facility] 3:32 AM [facility] REPOSITORY TYPE CODE TESTS RESULT OUT OF REFERENCE UNITS RANGE LAB BUN 7-22 mg/dL Low BUN 2 LAB NA 133-143 mmol/L Sodium 135 LAB K 3.5-5.0 mmol/L Low Potassium 3.1 LAB CL 98-108 mmol/L Chloride 105 LAB CO2 22-30 mmol/L Low Carbon Dioxide 21 LAB GLUC 70-99 mg/dL Glucose High 108 LAB CREA 0.50-1.20 mg/dL Creatinine 0.68 LAB GAP 7-17 mmol/L Anion Gap 12 LAB BC BUN/CREA Ratio 3 LAB [facility] 278-305 mOsm/kg Osmolality 278 (Calc) LAB GFR >60 mL/min/1.73 sqM Est GFR,non >60 Dutch LAB GFRA >60 mL/min/1.73 sqM Est GFR, >60 Performed By: #### HEMOGC, CHM7, MGO, PTPTT #### [facility] [address] [place] [address] MAGNESIUM Collected: 06/02/2018 Status: F Source: [facility] 3:32 AM [facility] REPOSITORY TYPE CODE TESTS RESULT OUT OF REFERENCE UNITS RANGE LAB MG 1.6-2.6 mg/dL Magnesium 1.9 Performed By: #### HEMOGC, CHM7, MGO, PTPTT #### [facility] [address] [place] [address] [place] [address] PT*PTT Collected: 06/02/2018 Status: F Source: [facility] 3:32 AM [facility] REPOSITORY TYPE CODE TESTS RESULT OUT OF RANGE REFERENCE UNITS LAB PT 11.9-14.2 sec High PT 16.9 LAB INR 0.9-1.1 High INR 1.4 LAB PTT 24.0-34.3 sec PTT 31.2 Performed By: #### HEMOGC, CHM7, MGO, PTPTT #### [facility] [address] [place] [address] [place] [address] CHEM 6 Collected: 06/01/2018 Status: F Source: [facility] 4:41 PM [facility] REPOSITORY TYPE CODE TESTS RESULT OUT OF REFERENCE UNITS RANGE LAB BUN 7-22 mg/dL Low BUN 2 LAB NA 133-143 mmol/L Sodium 134 LAB K 3.5-5.0 mmol/L Potassium 3.5 LAB CL 98-108 mmol/L Chloride 105 LAB CO2 22-30 mmol/L Carbon Dioxide 22 LAB CREA 0.50-1.20 mg/dL Creatinine 0.67 LAB GAP 7-17 mmol/L Anion Gap 11 LAB BC BUN/CREA Ratio 3 LAB GFR >60 mL/min/1.73 sqM Est GFR,non >60 Dutch LAB GFRA >60 mL/min/1.73 sqM Est GFR, >60 Performed By: #### CHM6 #### [facility] [address] [place] [address] [place] [address] POTASSIUM Collected: 06/01/2018 Status: F Source: [facility] 2:06 PM [facility] REPOSITORY TYPE CODE TESTS RESULT OUT OF REFERENCE UNITS RANGE LAB K 3.5-5.0 mmol/L Low Potassium 3.2 Performed By: #### KKO #### [facility] [id number] [place] [address] [address] [place] [address] HEMOGRAM (CBC AND Collected: 06/01/2018 Status: F Source: [facility] PLATELET) 3:26 AM [facility] REPOSITORY TYPE CODE TESTS RESULT OUT OF REFERENCE UNITS RANGE LAB WBC 3.99-11.19 K/uL WBC Count 5.61 LAB RBC 3.91-5.04 M/uL Low RBC Count 3.25 LAB HGB 11.4-15.2 g/dL Low Hemoglobin 9.8 LAB HCT 34.9-44.3 % Low Hematocrit 29.7 LAB MCV 79.6-97.7 fL Mean Cell Volume 91.4 LAB MCH 25.9-33.9 pg Mean Cell Hgb 30.2 LAB MCHC 31.4-35.9 g/dL Mean Cell Hgb Conc 33.0 LAB RDW 10.8-14.9 % RBC High Distribution 16.8 LAB PLT 150-393 K/uL Platelet Count 163 LAB MPV 8.5-12.2 fL Mean Platelet Volume 9.5 LAB NRBC 0.0-0.2 /100 WBC NUCLEATED RBC 0.0 Performed By: #### MANOJ, HELDER, MGO, PTPTT #### [facility] [address] [place] [address] [facility] [address] [place] [address] CHEM 7 Collected: 06/01/2018 Status: F Source: [facility] 3:26 AM [facility] REPOSITORY TYPE CODE TESTS RESULT OUT OF REFERENCE UNITS RANGE LAB BUN 7-22 mg/dL Low BUN 2 LAB NA 133-143 mmol/L Sodium 134 LAB K 3.5-5.0 mmol/L Low alert Potassium 2.7 Result Comment: Critical K result called to and read back by: TAM HERNANDEZ at: 06/01/2018 05:46:42 by : 2018 LAB CL 98-108 mmol/L Chloride 104 LAB CO2 22-30 mmol/L Carbon Low Dioxide 20 LAB GLUC 70-99 mg/dL Glucose 99 LAB CREA 0.50-1.20 mg/dL Creatinine 0.64 LAB GAP 7-17 mmol/L Anion Gap 13 LAB BC BUN/CREA Ratio 3 LAB [facility] 278-305 mOsm/kg Osmolality Low (Calc) 275 LAB GFR >60 mL/min/1.73sq M Est GFR,non >60 LAB GFRA >60 mL/min/1.73sq M Est GFR, >60 Performed By: #### MANOJ, HELDER, MGO, PTPTT #### [facility] [address] [place] [id number] [place] [address] [address] [place] [address] MAGNESIUM Collected: 06/01/2018 Status: F Source: [facility] 3:26 AM [facility] REPOSITORY TYPE CODE TESTS RESULT OUT OF REFERENCE UNITS RANGE LAB MG 1.6-2.6 mg/dL Magnesium 1.9 Performed By: #### MANOJ, VINICIOM7, MGO, PTPTT #### [facility] [address] [place] [address] [facility] [address] [place] [address] PT*PTT Collected: 06/01/2018 Status: F Source: [facility] 3:26 AM [facility] REPOSITORY TYPE CODE TESTS RESULT OUT OF RANGE REFERENCE UNITS LAB PT 11.9-14.2 sec High PT 16.3 LAB INR 0.9-1.1 High INR 1.3 LAB PTT 24.0-34.3 sec PTT 32.7 Performed By: #### HEMOGC, CHM7, MGO, PTPTT #### [facility] [address] [place] [address] [address] [place] [address] XR CHEST PORTABLE Observed: 05/31/2018 Status: F Source: [facility] 1:03 PM [facility] REPOSITORY EXAM: XR CHEST PORTABLE, 05/31/2018 12:12 PM COMPARISON: May 29, 2018 CLINICAL INDICATIONS: new cough RELEVANT CLINICAL HISTORY: FINDINGS: (Adequate technique) Improved right basilar atelectasis. Mildly progressive left pleural effusion and left basilar atelectasis. No other change. IMPRESSION: Improved right basilar atelectasis. Mildly progressive left pleural effusion and left basilar atelectasis. & HCT Collected: 05/31/2018 Status: F Source: [facility] 12:54 PM [facility] REPOSITORY TYPE CODE TESTS RESULT OUT OF REFERENCE UNITS RANGE LAB HGB 11.4-15.2 g/dL Low Hemoglobin 9.4 LAB HCT 34.9-44.3 % Low Hematocrit 28.8 Performed By: #### HH #### [facility] [address] [place] [address] [address] [place] [address] *POC GLUCOSE BATTERY Collected: 05/31/2018 Status: F Source: [facility] 7:05 AM [facility] REPOSITORY TYPE CODE TESTS RESULT OUT OF REFERENCE UNITS RANGE LAB GLUP 70-99 mg/dL High Glucose (poc 155 device) Result Comment: No BRAVE per RN: PATIENT TYPE LAB PCSTYP *POC Capillary SAMPLE TYPE Blood *POC GLUCOSE BATTERY Collected: 05/31/2018 Status: F Source: [facility] 6:30 AM [facility] REPOSITORY TYPE CODE TESTS RESULT OUT OF REFERENCE UNITS RANGE LAB GLUP 70-99 mg/dL Low alert Glucose (poc 47 device) Result Comment: Notified RNread back No BRAVE per RN: PATIENT TYPE LAB PCSTYP *POC Capillary SAMPLE TYPE Blood CHEM 7 Collected: 05/31/2018 Status: F Source: [facility] 3:02 AM [facility] REPOSITORY TYPE CODE TESTS RESULT OUT OF REFERENCE UNITS RANGE LAB BUN 7-22 mg/dL Low BUN 5 LAB NA 133-143 mmol/L Sodium 138 LAB K 3.5-5.0 mmol/L Low Potassium 3.3 LAB CL 98-108 mmol/L Chloride High 110 LAB CO2 22-30 mmol/L Low Carbon Dioxide 16 LAB GLUC 70-99 mg/dL Low Glucose 58 LAB CREA 0.50-1.20 mg/dL Creatinine 0.57 LAB GAP 7-17 mmol/L Anion Gap 15 LAB BC BUN/CREA Ratio 9 LAB [facility] 278-305 mOsm/kg Osmolality 282 (Calc) LAB GFR >60 mL/min/1.73 sqM Est GFR,non >60 Dutch LAB GFRA >60 mL/min/1.73 sqM Est GFR, >60 Performed By: #### HELDER, MGO, PTPTT, HEMOGC #### [facility] [address] [place] [address] [place] [address] MAGNESIUM Collected: 05/31/2018 Status: F Source: [facility] 3:02 [facility] REPOSITORY TYPE CODE TESTS RESULT OUT OF REFERENCE UNITS RANGE LAB MG 1.6-2.6 mg/dL Low Magnesium 1.5 Performed By: #### CHM7, MGO, PTPTT, HEMOGC #### [facility] [address] [place] [address] [place] [address] PT*PTT Collected: 05/31/2018 Status: F Source: [facility] 3:02 [facility] REPOSITORY TYPE CODE TESTS RESULT OUT OF RANGE REFERENCE UNITS LAB PT 11.9-14.2 sec High PT 16.1 LAB INR 0.9-1.1 High INR 1.3 LAB PTT 24.0-34.3 sec PTT 33.5 Result Comment: Results inconsistent with the patient's previous results Performed By: #### CHM7, JULIA COLE, HEMOGC #### [facility] [address] [place] [id number] [place] [address] [address] [place] [address] HEMOGRAM (CBC AND Collected: 05/31/2018 Status: F Source: [facility] PLATELET) 3:02 AM [facility] REPOSITORY TYPE CODE TESTS RESULT OUT OF REFERENCE UNITS RANGE LAB WBC 3.99-11.19 K/uL WBC Count 5.83 LAB RBC 3.91-5.04 M/uL RBC Count Low 2.84 LAB HGB 11.4-15.2 g/dL Hemoglobin Low 8.6 LAB HCT 34.9-44.3 % Hematocrit Low 27.2 LAB MCV 79.6-97.7 fL Mean Cell Volume 95.8 LAB MCH 25.9-33.9 pg Mean Cell Hgb 30.3 LAB MCHC 31.4-35.9 g/dL Mean Cell Hgb Conc 31.6 LAB RDW 10.8-14.9 % RBC High Distribution 16.7 LAB PLT 150-393 K/uL Platelet Count Low 145 LAB MPV 8.5-12.2 fL Mean Platelet Volume NOT MEASURED LAB NRBC 0.0-0.2 /100 WBC NUCLEATED RBC 0.0 Performed By: #### CHM7, KELSEY, JULIA, HEMOGC #### [facility] [address] [place] [phone] [place] [address] [address] [place] [address] XR ABDOMEN 1 VIEW Observed: 05/30/2018 Status: F Source: [facility] PORTABLE 6:14 PM [facility] REPOSITORY EXAM: XR ABDOMEN 1 VIEW PORTABLE, 05/28/2018 17:22 PM COMPARISON: June 21, 2012. CLINICAL INDICATIONS: Pain post-procedure FINDINGS: Tubes: There are tubal ligation clips in the pelvis. No gross free air. There is a non obstructive bowel gas pattern. No organomegaly or mass effect. No significant calcific densities or definite stones. Visualized osseous structures are unremarkable for the patient's age. IMPRESSION: No compelling findings of bowel obstruction or perforation. CARDIOGRAM Observed: 05/30/2018 Status: F Source: [facility] 6:08 PM [facility] REPOSITORY ? Left ventricular size is normal, mild concentric hypertrophy, normal systolic function, biplane ejection fraction estimated at 60%. ? Right ventricular size and function are normal. ? Both atria are normal. ? Aortic valve appears mildly thickened and calcified. There is moderate aortic regurgitation. No stenosis. ? Mitral valve leaflets and annulus appear thickened and calcified with restricted mobility. There is mild to moderate posteriorly directed mitral regurgitation. There are very small echodensities on t he tips of the anterior and posterior calcified leaflets, likely chordal calcification. ? Patent foramen ovale detected by color doppler with small left to right shunt. No associated right to left shunt seen with saline contrast. ? Unable to estimate right ventricular systolic pressure. HGB & HCT Collected: 05/30/2018 Status: F Source: [facility] 7:45 AM [facility] REPOSITORY TYPE CODE TESTS RESULT OUT OF REFERENCE UNITS RANGE LAB HGB 11.4-15.2 g/dL Low Hemoglobin 8.4 LAB HCT 34.9-44.3 % Low Hematocrit 26.1 Performed By: #### HH #### [facility] [address] [place] [address] HEMOGRAM (CBC AND Collected: 05/30/2018 Status: F Source: [facility] PLATELET) 1:50 AM [facility] REPOSITORY TYPE CODE TESTS RESULT OUT OF REFERENCE UNITS RANGE LAB WBC 3.99-11.19 K/uL WBC Count 6.01 LAB RBC 3.91-5.04 M/uL RBC Count Low 2.75 LAB HGB 11.4-15.2 g/dL Hemoglobin Low 8.3 LAB HCT 34.9-44.3 % Hematocrit Low 25.6 LAB MCV 79.6-97.7 fL Mean Cell Volume 93.1 LAB MCH 25.9-33.9 pg Mean Cell Hgb 30.2 LAB MCHC 31.4-35.9 g/dL Mean Cell Hgb Conc 32.4 LAB RDW 10.8-14.9 % RBC High Distribution 16.2 LAB PLT 150-393 K/uL Platelet Count Low 124 LAB MPV 8.5-12.2 fL Mean Platelet Volume NOT MEASURED LAB NRBC 0.0-0.2 /100 WBC NUCLEATED RBC 0.0 Performed By: #### HEMOGC #### [facility] [address] [address] PT*PTT Collected: 05/30/2018 Status: F Source: [facility] 1:05 [facility] REPOSITORY TYPE CODE TESTS RESULT OUT OF RANGE REFERENCE UNITS LAB PT 11.9-14.2 sec High PT 16.0 LAB INR 0.9-1.1 High INR 1.3 LAB PTT 24.0-34.3 sec PTT 26.2 Performed By: #### JULIA, ANOOP7, MGO #### [facility] [address] [place] [address] CHEM 7 Collected: 05/30/2018 Status: F Source: [facility] 1:05 AM [facility] REPOSITORY TYPE CODE TESTS RESULT OUT OF REFERENCE UNITS RANGE LAB BUN 7-22 mg/dL Low BUN 5 LAB NA 133-143 mmol/L Sodium 133 LAB K 3.5-5.0 mmol/L Low Potassium 3.3 LAB CL 98-108 mmol/L Chloride 105 LAB CO2 22-30 mmol/L Low Carbon Dioxide 19 LAB GLUC 70-99 mg/dL Glucose 83 LAB CREA 0.50-1.20 mg/dL Creatinine 0.57 LAB GAP 7-17 mmol/L Anion Gap 12 LAB BC BUN/CREA Ratio 9 LAB [facility] 278-305 mOsm/kg Low Osmolality 275 (Calc) LAB GFR >60 mL/min/1.73 sqM Est GFR,non >60 Dutch LAB GFRA >60 mL/min/1.73 sqM Est GFR, >60 Performed By: #### JULIA, VINICIOM7, MGO #### [facility] [address] [address] MAGNESIUM Collected: 05/30/2018 Status: F Source: [facility] 1:05 AM [facility] REPOSITORY TYPE CODE TESTS RESULT OUT OF REFERENCE UNITS RANGE LAB MG 1.6-2.6 mg/dL Low Magnesium 1.5 Performed By: #### PTPTT, CHM7, MGO #### [facility] [address] [place] [id number] [place] [address] [address] [place] [address] Observed: 05/29/2018 Status: F Source: [facility] TYPE AND CROSS 5:34 PM [facility] REPOSITORY ABO/RH(D): O POSITIVE ANTIBODY SCREEN: NEGATIVE UNIT NUMBER: [id number] BLOOD COMPONENT TYPE: Red Cells, Leukoreduced_[id number] STATUS OF UNIT: Issued, Final TRANSFUSION STATUS: OK TO TRANSFUSE CROSSMATCH RESULT: Electronically Compatible Performed By: #### XM #### [facility] [address] [place] [address] [address] [place] [address] URINALYSIS REFLEX Collected: 05/29/2018 Status: F Source: [facility] CULTURE 4:24 PM [facility] REPOSITORY TYPE CODE TESTS RESULT OUT OF RANGE REFERENCE UNITS LAB ADULT LITERACY INSTRUCTOR Clear Appearance Urine Clear LAB SPGR 1.001-1.035 High Specific [place] urine >1.045 LAB UGL Negative mg/dL Glucose Urine Negative LAB UKET Negative Ketones Abnormal Urine Trace LAB UBLD Negative Blood Urine Negative LAB UPH 5.0-7.0 pH Urine 5.0 LAB UPR Negative mg/dL Protein Urine Negative LAB UNTR Negative Nitrites Urine Negative LAB ULEU Negative Leukocyte Esterase Negative LAB COLR Yellow Color Yellow LAB UURO <2.0 EU/dL Urobilinogen 0.2 urine LAB UWBC 0-5 /HPF WBC Urine 0-5 LAB URBC 0-2 /HPF RBC Urine 0-2 LAB BACT Absent Bacteria Absent LAB UCOM COMMENT URINE None LAB EPIS /HPF Squamous Epithelial 2+ Performed By: #### URIN1 #### [facility] [address] [place] [address] [address] [place] [address] HGB & HCT Collected: 05/29/2018 Status: F Source: [facility] 3:28 PM [facility] REPOSITORY TYPE CODE TESTS RESULT OUT OF REFERENCE UNITS RANGE LAB HGB 11.4-15.2 g/dL Low alert Hemoglobin 6.8 Result Comment: This result has been called to TAM NICHOLE by Dede Shabazz on 05 29 2018 at 1614, and has been read back. LAB HCT 34.9-44.3 % Hematocrit Low 21.3 Performed By: #### HH #### [facility] [address] [place] [address] [facility] [address] [place], [place] [address] CT ABDOMEN/PELVIS WITH Observed: 05/29/2018 Status: F Source: [facility] [facility] 1:57 PM [facility] REPOSITORY EXAM: CT ABDOMEN/PELVIS WITH CONTRAST, 05/29/2018 13:19 [...] spaces. A few bone islands are noted. IMPRESSION: 1. Cecal pole is slightly high [...] trauma grade: N/A Kidney trauma grade: N/A 12 LEAD ELECTROCARDIOGRAM Observed: 05/29/2018 Status: F Source: [place] 11:37 AM [facility] REPOSITORY [facility] Cardiovascular Services [address] [place] [address] 12 Lead EKG 05/25/18 0443 MR#: [id number] Acct: [id number] Name: PAMELA ESPINOZA Rep #: [id number] : 1940 78 From: Sagar George MD Attending Dr: Ashvin Bowman DO Status: DIS IN Ordering Dr: Ashvin James MD Date: 05/25/18 Location: [facility] Sex: F C Admitted: 05/24/18 Test Reason : PRE OP Blood Pressure : / mmHG Vent. 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) Abnormal ECG When compared with ECG of 29-DEC-2017 12:02, Nonspecific T wave abnormality no longer evident in Anterolateral leads Confirmed by SAGAR GEORGE MD ([id number]), associate editor CHILO BIRCH ([id number]) on 05/29/2018 11:37:27 AM Referred By: Sidney Khan Confirmed By:SAGAR GEORGE MD 05/29/18 1137 Date Sagar George MD CC: Ashvin James MD; Ashvin Bowman DO; Ashvin Cardenas MD; Sidney Khan MD Signed XR CHEST PORTABLE Observed: 05/29/2018 Status: F Source: [facility] 10:14 AM [facility] REPOSITORY EXAM: XR CHEST PORTABLE, 05/29/2018 00:24 AM COMPARISON: No prior studies available for comparison. CLINICAL INDICATIONS: Rule out new pneumonia RELEVANT CLINICAL HISTORY: FINDINGS: (Compromised by low lung volumes) Life Support Devices: None Chest Wall: Normal Alejandro: Normal Mediastinum: Normal Pleural Spaces: No definite pleural effusion. No definite pneumothorax. Lungs: Low lung volumes and mild right hemidiaphragm elevation with bilateral basilar atelectasis an/or developing airspace disease. Cardiac Silhouette: Enlarged cardiac silhouette size. Thoracic Aorta: Normal Pulmonary Vessels: Mild pulmonary venous hypertension. IMPRESSION: Bilateral basilar atelectasis an/or early developing airspace disease such as infection/or aspiration in the appropriate clinical setting. Cardiomegaly with borderline mild pulmonary venous hypertension. & HCT Collected: 05/29/2018 Status: F Source: [facility] 8:50 AM [facility] REPOSITORY TYPE CODE TESTS RESULT OUT OF REFERENCE UNITS RANGE LAB HGB 11.4-15.2 g/dL Low Hemoglobin 7.2 LAB HCT 34.9-44.3 % Low Hematocrit 21.6 Performed By: #### HH #### [facility] [place] [address] Observed: 05/29/2018 Status: F Source: [facility] BLOOD:ROUTINE I 12:30 AM [facility] REPOSITORY SOURCE: BLOOD, PERIPHERAL: Right Antecubital RESULT: NO GROWTH DAY 5 OF 5 REPORT STATUS: 06/03/2018 FINAL Performed By: #### FAST #### [facility] [address] [place] [address] Blood Cultures processed at: [facility] HEMOGRAM (CBC AND Collected: 05/29/2018 Status: F Source: [facility]) 12:16 AM [facility] REPOSITORY TYPE CODE TESTS RESULT OUT OF REFERENCE UNITS RANGE LAB WBC 3.99-11.19 K/uL WBC Count 7.79 LAB RBC 3.91-5.04 M/uL Low RBC Count 2.68 LAB HGB 11.4-15.2 g/dL Low Hemoglobin 8.1 LAB HCT 34.9-44.3 % Low Hematocrit 25.4 LAB MCV 79.6-97.7 fL Mean Cell Volume 94.8 LAB MCH 25.9-33.9 pg Mean Cell Hgb 30.2 LAB MCHC 31.4-35.9 g/dL Mean Cell Hgb Conc 31.9 LAB RDW 10.8-14.9 % RBC High Distribution 16.5 LAB PLT 150-393 K/uL Low Platelet Count 139 LAB MPV 8.5-12.2 fL Mean Platelet Volume 9.9 LAB NRBC 0.0-0.2 /100 WBC NUCLEATED RBC 0.0 Performed By: #### HEMOGC, CHM7, MGO, PTPTT #### [facility] [address] [place] [id number] [facility] [address] [place] [id number] CHEM 7 Collected: 05/29/2018 Status: F Source: [facility] 12:16 AM [facility] REPOSITORY TYPE CODE TESTS RESULT OUT OF REFERENCE UNITS RANGE LAB BUN 7-22 mg/dL Low BUN 2 LAB NA 133-143 mmol/L Sodium 139 LAB K 3.5-5.0 mmol/L Potassium 4.1 LAB CL 98-108 mmol/L Chloride 102 LAB CO2 22-30 mmol/L Low Carbon Dioxide 20 LAB GLUC 70-99 mg/dL Glucose High 100 LAB CREA 0.50-1.20 mg/dL Creatinine 0.76 LAB GAP 7-17 mmol/L Anion High Gap 21 LAB BC BUN/CREA Ratio 3 LAB [facility] 278-305 mOsm/kg Osmolality 287 (Calc) LAB GFR >60 mL/min/1.73 sqM Est GFR,non >60 Dutch LAB GFRA >60 mL/min/1.73 sqM Est GFR, >60 Performed By: #### HEMOGC, CHM7, MGO, PTPTT #### [facility] [address] [place] [address] [place] [address] MAGNESIUM Collected: 05/29/2018 Status: F Source: [facility] 12:16 AM [facility] REPOSITORY TYPE CODE TESTS RESULT OUT OF REFERENCE UNITS RANGE LAB MG 1.6-2.6 mg/dL Low Magnesium 1.5 Performed By: #### HEMOGC, CHM7, MGO, PTPTT #### [facility] [address] [place] [address] [place] [address] PT*PTT Collected: 05/29/2018 Status: F Source: [facility] 12:16 [facility] REPOSITORY TYPE CODE TESTS RESULT OUT OF RANGE REFERENCE UNITS LAB PT 11.9-14.2 sec High PT 14.4 LAB INR 0.9-1.1 INR 1.1 LAB PTT 24.0-34.3 sec PTT 25.0 Performed By: #### HEMOGC, CHM7, MGO, PTPTT #### [facility] [address] [place] [address] [place] [address] *POC GLUCOSE BATTERY Collected: 05/29/2018 Status: F Source: [facility] 12:10 AM [facility] REPOSITORY TYPE CODE TESTS RESULT OUT OF REFERENCE UNITS RANGE LAB GLUP 70-99 mg/dL Glucose (poc 96 device) Result Comment: No BRAVE per RN: PATIENT TYPE LAB PCSTYP *POC Capillary SAMPLE TYPE Blood LACTATE, BLOOD Collected: 05/29/2018 Status: F Source: [facility] 12:01 AM [facility] REPOSITORY TYPE CODE TESTS RESULT OUT OF RANGE REFERENCE UNITS LAB LACT 0.5-1.6 mmol/L Lactate, 1.2 Blood Performed By: #### LACT #### [facility] [address] [place] [address] [facility] [address] [place] [address] HGB & HCT Collected: 05/29/2018 Status: F Source: [facility] 12:01 AM [facility] REPOSITORY TYPE CODE TESTS RESULT OUT OF REFERENCE UNITS RANGE LAB HGB 11.4-15.2 g/dL Low Hemoglobin 8.2 LAB HCT 34.9-44.3 % Low Hematocrit 25.3 Performed By: #### HH #### [facility] [address] [place] [address] [facility] [address] [place], [place] [address] Observed: 05/28/2018 Status: F Source: [facility] BLOOD:ROUTINE II 11:52 PM [facility] REPOSITORY SOURCE: BLOOD, PERIPHERAL: Left Arm RESULT: NO GROWTH DAY 5 OF 5 REPORT STATUS: 06/03/2018 FINAL Performed By: #### FAST2 #### [facility] [address] [place] [address] Blood Cultures processed at: [facility] HGB & HCT Collected: 05/28/2018 Status: F Source: [facility] 6:34 [facility] REPOSITORY TYPE CODE TESTS RESULT OUT OF REFERENCE UNITS RANGE LAB HGB 11.4-15.2 g/dL Low Hemoglobin 8.8 LAB HCT 34.9-44.3 % Low Hematocrit 26.6 Performed By: #### HH #### [facility] [place] [address] [place] [address] SURGICAL PATHOLOGY Observed: 05/28/2018 Status: F Source: [facility] 6:05 [facility] REPOSITORY Surgical Pathology Report Patient Name: PAMELA ESPINOZA Med. Rec #: [id number] Submitting Physician: ELIZABETH ORTIZ --- Clinical History --- Preop Diagnosis: Acute blood loss anemia. Medical History: Tachycardia. Autoimmune hepatitis. HLD. Diverticulosis. D62 ---Final Pathologic Diagnosis--- A. Colon, AC Polyp (Biopsy): - Tubular adenoma. B. Colon, Transverse Polyps x2 (Biopsy): - Fragments of tubular adenoma. C. Colon, Descending Polyp (Biopsy): - Hyperplastic polyp. voge1/OEZE:05/30/2018 Electronically Signed By Taj Nicole MD 05/30/2018 18:19:56 Professional Interpretation performed at location: [address] [place] [address] ---SPECIMEN(S) RECEIVED:--- SBX A: Colon, BX B: Colon, BX C: Colon, BX ---GROSS DESCRIPTION:--- The specimens are received in three properly labeled containers with the patient's name and accession number. A. The specimen is designated jumbo forceps, ac polyp and consists of one soft cox portion of tissue which is 0.3 cm in greatest dimension. TE 1 B. The specimen is designated jumbo forceps, transverse colon polyps x2 and consists of two fragments of cox-pink soft tissue, 0.3 cm in greatest dimension. TE 1 C. The specimen is designated jumbo forceps, descending colon polyp and consists of two fragments of cox-pink soft tissue, 0.3 cm in greatest dimension. TE 1 Lab Use Only: JobID [id number] Gross description by: Kenyatta Fu Performed By: #### SURGP #### [facility] [place] [address] [place] [address] [facility] [address] [place] [address] POTASSIUM Collected: 05/28/2018 Status: F Source: [facility] 1:42 PM [facility] REPOSITORY TYPE CODE TESTS RESULT OUT OF REFERENCE UNITS RANGE LAB K 3.5-5.0 mmol/L Potassium 3.6 Performed By: #### KKO #### [facility] [address] [place] [id number] [place] [address] [address] HGB & HCT Collected: 05/28/2018 Status: F Source: [facility] 11:51 AM [facility] REPOSITORY TYPE CODE TESTS RESULT OUT OF REFERENCE UNITS RANGE LAB HGB 11.4-15.2 g/dL Low Hemoglobin 8.1 LAB HCT 34.9-44.3 % Low Hematocrit 24.6 Performed By: #### HH #### [facility] [id number] [place] [address] [address] HGB & HCT Collected: 05/28/2018 Status: F Source: [facility] 6:01 AM [facility] REPOSITORY TYPE CODE TESTS RESULT OUT OF REFERENCE UNITS RANGE LAB HGB 11.4-15.2 g/dL Low Hemoglobin 7.9 LAB HCT 34.9-44.3 % Low Hematocrit 24.2 Performed By: #### HH #### [facility] [id number] [place] [address] [address] HEMOGRAM (CBC AND Collected: 05/28/2018 Status: F Source: [facility] PLATELET) 1:08 AM [facility] REPOSITORY TYPE CODE TESTS RESULT OUT OF REFERENCE UNITS RANGE LAB WBC 3.99-11.19 K/uL WBC Count 4.39 LAB RBC 3.91-5.04 M/uL RBC Count Low 2.57 LAB HGB 11.4-15.2 g/dL Hemoglobin Low 7.9 LAB HCT 34.9-44.3 % Hematocrit Low 24.0 LAB MCV 79.6-97.7 fL Mean Cell Volume 93.4 LAB MCH 25.9-33.9 pg Mean Cell Hgb 30.7 LAB MCHC 31.4-35.9 g/dL Mean Cell Hgb Conc 32.9 LAB RDW 10.8-14.9 % RBC High Distribution 16.4 LAB PLT 150-393 K/uL Platelet Count Low 140 LAB MPV 8.5-12.2 fL Mean Platelet Volume NOT MEASURED LAB NRBC 0.0-0.2 /100 WBC NUCLEATED RBC 0.0 Performed By: #### HEMOGC, PTPTT, CHM7, MGO #### [facility] [address] [place] [address] [place] [address] PT*PTT Collected: 05/28/2018 Status: F Source: [facility] 1:08 [facility] REPOSITORY TYPE CODE TESTS RESULT OUT OF RANGE REFERENCE UNITS LAB PT 11.9-14.2 sec High PT 14.3 LAB INR 0.9-1.1 INR 1.1 LAB PTT 24.0-34.3 sec PTT 26.7 Performed By: #### HEMOGC, PTPTT, CHM7, MGO #### [facility] [address] [place] [address] [place] [address] CHEM 7 Collected: 05/28/2018 Status: F Source: [facility] 1:08 [facility] REPOSITORY TYPE CODE TESTS RESULT OUT OF REFERENCE UNITS RANGE LAB BUN 7-22 mg/dL Low BUN 3 LAB NA 133-143 mmol/L Sodium 138 LAB K 3.5-5.0 mmol/L Low alert Potassium 2.9 Result Comment: Critical K result called to and read back by: TAM HICKMAN at: 05/28/2018 07:11:37 by : [id number] LAB CL 98-108 mmol/L Chloride 105 LAB CO2 22-30 mmol/L Carbon Dioxide 24 LAB GLUC 70-99 mg/dL Glucose High 100 LAB CREA 0.50-1.20 mg/dL Creatinine 0.55 LAB GAP 7-17 mmol/L Anion Gap 12 LAB BC BUN/CREA Ratio 5 LAB [facility] 278-305 mOsm/kg Osmolality (Calc) 284 LAB GFR >60 mL/min/1.73sq M Est GFR,non >60 LAB GFRA >60 mL/min/1.73sq M Est GFR, >60 Performed By: #### HEMOGC, PTPTT, CHM7, MGO #### [facility] [address] [place] [address] [facility] [address] [place] [address] MAGNESIUM Collected: 05/28/2018 Status: F Source: [facility] 1:08 AM [facility] REPOSITORY TYPE CODE TESTS RESULT OUT OF REFERENCE UNITS RANGE LAB MG 1.6-2.6 mg/dL Magnesium 1.6 Performed By: #### HEMOGC, PTPTT, CHM7, MGO #### [facility] [address] [place] [id number] [place] [address] [address] [place] [address] HGB & HCT Collected: 05/27/2018 Status: F Source: [facility] 11:50 PM [facility] REPOSITORY TYPE CODE TESTS RESULT OUT OF REFERENCE UNITS RANGE LAB HGB 11.4-15.2 g/dL Low Hemoglobin 8.8 LAB HCT 34.9-44.3 % Low Hematocrit 26.3 Performed By: #### HH #### [facility] [address] [place] [id number] [place] [address] [address] [place] [address] HGB & HCT Collected: 05/27/2018 Status: F Source: [facility] 6:01 PM [facility] REPOSITORY TYPE CODE TESTS RESULT OUT OF REFERENCE UNITS RANGE LAB HGB 11.4-15.2 g/dL Low Hemoglobin 9.3 LAB HCT 34.9-44.3 % Low Hematocrit 27.9 Performed By: #### HH #### [facility] [address] [place] [address] [facility] [address] [place] [address] HGB & HCT Collected: 05/27/2018 Status: F Source: [facility] 12:04 PM [facility] REPOSITORY TYPE CODE TESTS RESULT OUT OF REFERENCE UNITS RANGE LAB HGB 11.4-15.2 g/dL Low Hemoglobin 8.8 LAB HCT 34.9-44.3 % Low Hematocrit 26.6 Performed By: #### HH #### [facility] [id number] [place] [address] [address] [place] [address] HEMOGRAM (CBC AND Collected: 05/27/2018 Status: F Source: [facility] PLATELET) 1:42 AM [facility] REPOSITORY TYPE CODE TESTS RESULT OUT OF REFERENCE UNITS RANGE LAB WBC 3.99-11.19 K/uL WBC Count 5.90 LAB RBC 3.91-5.04 M/uL Low RBC Count 2.85 LAB HGB 11.4-15.2 g/dL Low Hemoglobin 9.1 LAB HCT 34.9-44.3 % Low Hematocrit 27.1 LAB MCV 79.6-97.7 fL Mean Cell Volume 95.1 LAB MCH 25.9-33.9 pg Mean Cell Hgb 31.9 LAB MCHC 31.4-35.9 g/dL Mean Cell Hgb Conc 33.6 LAB RDW 10.8-14.9 % RBC High Distribution 15.9 LAB PLT 150-393 K/uL Low Platelet Count 131 LAB MPV 8.5-12.2 fL Mean Platelet Volume 10.0 LAB NRBC 0.0-0.2 /100 WBC NUCLEATED RBC 0.0 Performed By: #### HEMOGC, CHM7, PTPTT #### [facility] [address] [place] [address] CHEM 7 Collected: 05/27/2018 Status: F Source: [facility] 1:42 AM [facility] REPOSITORY TYPE CODE TESTS RESULT OUT OF REFERENCE UNITS RANGE LAB BUN 7-22 mg/dL Low BUN 5 LAB NA 133-143 mmol/L Sodium 134 LAB K 3.5-5.0 mmol/L Potassium 4.2 LAB CL 98-108 mmol/L Chloride 104 LAB CO2 22-30 mmol/L Low Carbon Dioxide 20 LAB GLUC 70-99 mg/dL Glucose 70 LAB CREA 0.50-1.20 mg/dL Creatinine 0.64 LAB GAP 7-17 mmol/L Anion Gap 14 LAB BC BUN/CREA Ratio 8 LAB [facility] 278-305 mOsm/kg Low Osmolality 277 (Calc) LAB GFR >60 mL/min/1.73 sqM Est GFR,non >60 Dutch LAB GFRA >60 mL/min/1.73 sqM Est GFR, >60 Performed By: #### HEMOGC, CHM7, PTPTT #### [facility] [id number] [place] [address] [address] [place] [address] PT*PTT Collected: 05/27/2018 Status: F Source: [facility] 1:42 AM [facility] REPOSITORY TYPE CODE TESTS RESULT OUT OF RANGE REFERENCE UNITS LAB PT 11.9-14.2 sec PT 14.2 LAB INR 0.9-1.1 INR 1.1 LAB PTT 24.0-34.3 sec PTT 27.1 Performed By: #### HEMOGC, CHM7, PTPTT #### [facility] [address] [place] [address] HGB & HCT Collected: 05/26/2018 Status: F Source: [facility] 11:31 PM [facility] REPOSITORY TYPE CODE TESTS RESULT OUT OF REFERENCE UNITS RANGE LAB HGB 11.4-15.2 g/dL Low Hemoglobin 9.0 LAB HCT 34.9-44.3 % Low Hematocrit 27.5 Performed By: #### HH #### [facility] [address] [place] [address] HGB & HCT Collected: 05/26/2018 Status: F Source: [facility] 5:44 PM [facility] REPOSITORY TYPE CODE TESTS RESULT OUT OF REFERENCE UNITS RANGE LAB HGB 11.4-15.2 g/dL Low Hemoglobin 9.3 LAB HCT 34.9-44.3 % Low Hematocrit 28.4 Performed By: #### HH #### [facility] [address] [address] URINALYSIS REFLEX Collected: 05/26/2018 Status: F Source: [facility] CULTURE 12:43 PM [facility] REPOSITORY TYPE CODE TESTS RESULT OUT OF RANGE REFERENCE UNITS LAB ADULT LITERACY INSTRUCTOR Clear Appearance Urine Clear LAB SPGR 1.001-1.035 Specific [place] urine 1.011 LAB UGL Negative mg/dL Glucose Urine Negative LAB UKET Negative Ketones Abnormal Urine Moderate LAB UBLD Negative Blood Urine Negative LAB UPH 5.0-7.0 pH Urine 5.0 LAB UPR Negative mg/dL Protein Urine Negative LAB UNTR Negative Nitrites Urine Negative LAB ULEU Negative Leukocyte Abnormal Esterase Small LAB COLR Yellow Color Yellow LAB UURO <2.0 EU/dL Urobilinogen 0.2 urine LAB UWBC 0-5 /HPF WBC Urine 0-5 LAB URBC 0-2 /HPF RBC Urine 0-2 LAB BACT Absent Bacteria Absent LAB UCOM COMMENT URINE None LAB EPIS /HPF Squamous Epithelial 1+ Performed By: #### URIN1 #### [facility] [address] [place] [address] Observed: 05/26/2018 Status: F Source: [facility] TYPE AND CROSS 12:30 PM [facility] REPOSITORY ABO/RH(D): O POSITIVE ANTIBODY SCREEN: NEGATIVE UNIT NUMBER: [id number] BLOOD COMPONENT TYPE: Red Cells, Leukoreduced_[id number] STATUS OF UNIT: REL FROM ALLOC TRANSFUSION STATUS: OK TO TRANSFUSE CROSSMATCH RESULT: Electronically Compatible Performed By: #### XM #### [place] [address] HGB & HCT Collected: 05/26/2018 Status: F Source: [facility] 11:49 AM [facility] REPOSITORY TYPE CODE TESTS RESULT OUT OF REFERENCE UNITS RANGE LAB HGB 11.4-15.2 g/dL Low Hemoglobin 9.2 LAB HCT 34.9-44.3 % Low Hematocrit 28.1 Performed By: #### HH #### [facility] [place] [address] Observed: 05/26/2018 Status: F Source: [facility] URINE CULTURE -UHE 5:30 AM [facility] REPOSITORY SOURCE: URINE-CLEAN CATCH: RESULT: NO SIGNIFICANT GROWTH. Routine cultures are evaluated for significant uropathogens >10,000 CFU/mL. REPORT STATUS: 05/27/2018 FINAL Performed By: #### UR #### [address] [address] Blood Cultures processed at: [facility] Observed: 05/26/2018 Status: F Source: [facility] BLOOD:ROUTINE I 5:29 AM [facility] REPOSITORY SOURCE: BLOOD, PERIPHERAL: Right Arm RESULT: NO GROWTH DAY 5 OF 5 REPORT STATUS: 05/31/2018 FINAL Performed By: Remberto SHARMA #### [address] [address] Blood Cultures processed at: [facility] Observed: 05/26/2018 Status: F Source: [facility] BLOOD:ROUTINE II 5:29 AM [facility] REPOSITORY SOURCE: BLOOD, PERIPHERAL: Left Arm COMMENT: Results may be compromised due to inappropriate blood volume. The optimal blood volume is 8-10 mls per aerobic/anaerobic blood culture bottle. Sent Aerobic Blood Bottle Only RESULT: NO GROWTH DAY 5 OF 5 REPORT STATUS: 05/31/2018 FINAL Performed By: Remberto NEIL #### [address] [address] Blood Cultures processed at: [facility] HEMOGRAM (CBC AND Collected: 05/26/2018 Status: F Source: [facility]) 3:40 AM [facility] REPOSITORY TYPE CODE TESTS RESULT OUT OF REFERENCE UNITS RANGE LAB WBC 3.99-11.19 K/uL WBC Count 7.14 LAB RBC 3.91-5.04 M/uL RBC Count Low 2.97 LAB HGB 11.4-15.2 g/dL Hemoglobin Low 9.0 LAB HCT 34.9-44.3 % Hematocrit Low 27.5 LAB MCV 79.6-97.7 fL Mean Cell Volume 92.6 LAB MCH 25.9-33.9 pg Mean Cell Hgb 30.3 LAB MCHC 31.4-35.9 g/dL Mean Cell Hgb Conc 32.7 LAB RDW 10.8-14.9 % RBC High Distribution 15.9 LAB PLT 150-393 K/uL Platelet Count Low 130 LAB MPV 8.5-12.2 fL Mean Platelet Volume NOT MEASURED LAB NRBC 0.0-0.2 /100 WBC NUCLEATED RBC 0.0 Performed By: #### HEMOGC #### [facility] [address] [place] [address] [place] [address] LACTATE, BLOOD Collected: 05/26/2018 Status: F Source: [facility] 1:37 AM [facility] REPOSITORY TYPE CODE TESTS RESULT OUT OF RANGE REFERENCE UNITS LAB LACT 0.5-1.6 mmol/L Lactate, 0.6 Blood Performed By: #### LACT #### [facility] [address] [place] [id number] [place] [address] [address] [place] [address] CHEM 7 Collected: 05/26/2018 Status: F Source: [facility] 1:37 AM [facility] REPOSITORY TYPE CODE TESTS RESULT OUT OF REFERENCE UNITS RANGE LAB BUN 7-22 mg/dL Low BUN 5 LAB NA 133-143 mmol/L Low Sodium 130 LAB K 3.5-5.0 mmol/L Low Potassium 3.4 LAB CL 98-108 mmol/L Chloride 103 LAB CO2 22-30 mmol/L Low Carbon Dioxide 19 LAB GLUC 70-99 mg/dL Glucose 76 LAB CREA 0.50-1.20 mg/dL Creatinine 0.69 LAB GAP 7-17 mmol/L Anion Gap 11 LAB BC BUN/CREA Ratio 7 LAB [facility] 278-305 mOsm/kg Low Osmolality 269 (Calc) LAB GFR >60 mL/min/1.73 sqM Est GFR,non >60 Dutch LAB GFRA >60 mL/min/1.73 sqM Est GFR, >60 Performed By: #### VINICIOM7, CRUZ, PTPTT #### [facility] [address] [place] [id number] [place] [address] [address] [place] [address] #### CBCDFC #### [facility] (DEFAULT) [address] [place] [address] HEPATIC FUNCTION Collected: 05/26/2018 Status: F Source: [facility] 1:37 AM [facility] REPOSITORY TYPE CODE TESTS RESULT OUT OF REFERENCE UNITS RANGE LAB ALB 3.5-5.0 g/dL Low Albumin 2.6 LAB BILD <0.3 mg/dL Bilirubin Direct 0.1 LAB BILT <1.5 mg/dL Bilirubin Total 1.1 LAB ALP 32-126 U/L Alkaline Phosphatase 47 LAB ALT 9-48 U/L ALT 23 LAB AST 14-40 U/L AST 31 LAB TP 6.4-8.3 g/dL Low Total Protein 6.0 Performed By: #### VINICIOM7, CRUZ, PTPTT #### [facility] [id number] [place] [address] [address] [place] [address] #### CBCDFC #### [facility] (DEFAULT) [address] [address] PT*PTT Collected: 05/26/2018 Status: F Source: [facility] 1:37 AM [facility] REPOSITORY TYPE CODE TESTS RESULT OUT OF RANGE REFERENCE UNITS LAB PT 11.9-14.2 sec High PT 14.7 LAB INR 0.9-1.1 INR 1.1 LAB PTT 24.0-34.3 sec PTT 30.0 Performed By: #### CHM7, CRUZ, PTPTT #### [facility] [address] [address] [facility] [address] [place] [address] #### CBCDFC #### [facility] (DEFAULT) [address] [place] [address] CBC,PLATELET,DIFFERENTIAL - CCL Collected: Status: X Source: [facility] 05/26/2018 1:37 AM [facility] REPOSITORY TYPE CODE TESTS RESULT OUT OF REFERENCE UNITS RANGE LAB CBCDFC This CBC,PLATELET result has ,DIFFERENTIA been L - CCL cancelled. Performed By: #### CHM7, HFP, PTPTT #### [facility] [address] [place] [address] [facility] [address] [place] [address] #### CBCDFC #### [facility] (DEFAULT) [address] [place] [address] HH, HEMOGLOBIN AND Collected: 05/25/2018 Status: F Source: [facility] 6:30 PM [facility] REPOSITORY TYPE CODE TESTS RESULT OUT OF RANGE REFERENCE UNITS LAB L100.1300 12.0-15.0 g/dl Low HGB 9.4 LAB L100.1400 37-47 % Low HCT 28.8 Performed By: #### L100.0600 #### [facility] [address] [place], [address] CBC W/DIFF, AUTOMATED Collected: 05/25/2018 Status: F Source: [facility] 11:45 AM [facility] REPOSITORY TYPE CODE TESTS RESULT OUT OF RANGE REFERENCE UNITS LAB L100.1000 4.4-11.0 K/mm3 Normal WBC 7.7 LAB L100.1200 4.2-5.4 M/mm3 Low RBC 3.06 LAB L100.1300 12.0-15.0 g/dl Low HGB 9.4 LAB L100.1400 37-47 % Low HCT 28.8 LAB L100.1500 81-99 fL Normal MCV 94.1 LAB L100.1600 27.0-32.0 pg Normal MCH 30.7 LAB L100.1700 32-36 g/gl Normal MCHC 32.6 LAB L100.1810 11.6-14.6 % High RDW CV 15.8 LAB L100.1820 35.1-43.9 fl High RDW SD 54.1 LAB L100.1900 150-450 K/mm3 Low PLT 113 LAB L100.2000 6.2-12.0 fl Normal MPV 8.9 LAB L100.2100 47-70 % High NEUT% 71.7 LAB L100.2200 19-41 % Low LY% 18.6 LAB L100.2300 0-10 % Normal MONO% 8.1 LAB L100.2400 0-5 % Normal EO% 1.2 LAB L100.2500 0-1 % Normal BASO% 0.1 LAB L100.2550 0.0-0.9 % Normal IM GRAN % 0.300 Result Comment: IG% - Immature Granulocytes (promyelocytes, myelocytes and metamyelocytes) > 1% indicates that a LEFT SHIFT is Present. LAB L100.2620 2.0-7.7 X10 3/uL Normal Absolute Neut 5.5 LAB L100.2720 0.83-4.51 X10 3/ul Normal Absolute Lymph 1.42 Performed By: #### L100.0100 #### [facility] [address] [place], [address] DISCHARGE SUMMARY Observed: 05/25/2018 Status: F Source: [facility] 10:51 AM [facility] REPOSITORY [facility] Medical Records Department [address] [place] [address] Discharge Summary 05/25/18 1046 MR#: [id number] Acct: [id number] Name: PAMELA ESPINOZA Rep #: [id number] : 1940 78 From: Ashvin Bowman DO PCP: Ashvin Cardenas MD Status: ADM IN Location: [place] [address] Discharge Date and Diagnosis - Problem List Patient Problems: Active and Suspected Problems (Last Reviewed 05/24/18 @ 12:44 by Zoë Quiroz) Acute blood loss anemia (Acute) Rectal bleeding (Acute) Date of Admission: 05/24/18 Date of Discharge: 05/25/18 - Secondary Discharge Diagnosis Chronic Problems (Last Reviewed 05/24/18 @ 12:44 by Zoë Quiroz) Hypothyroidism (Chronic) Monoclonal gammopathies (Chronic) Lupus (Chronic) Hypertension (Chronic) Autoimmune hepatitis (Chronic) Hospital Course and Treatment Sidney Khan MD--general surgery. Operations: None Procedures: Colonoscopy Summary of Care Provided: The patient is a 78 year old F is with GI bleed. 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 Patient states that she has had intermittent bouts but self remitting at times. But this time patient had more persistent bleed. Patient underwent a colonoscopy today that showed bleeding from her AVMs in the cecum but also some diverticular bleeding. Dr. Khan, a general surgery, recommended transfer to tertiary facility for more definitive management. After discussion with patient and family they eventually wanted to the patient to have aggressive measures and to go to [facility]. Spoke with the transfer line [facility] and patient was accepted by Dr. Calhoun. I did explain to the patient that it may be more conservative measures rather surgery but they will make further determinations at [facility] surgery or other endoscopic cauterization etc. may be necessary. Patient did have acute blood loss anemia with initial hemoglobin 11.9 and no indication for transfusion at this time. [] Patient Problems: Active and Suspected Problems (Last Reviewed 05/24/18 @ 12:44 by Zoë Quiroz) Acute blood loss anemia (Acute) Rectal bleeding (Acute) - Physical Exam General: Alert, Cooperative, No apparent distress HEENT: Atraumatic, Normocephalic Oral: Moist Mucosa, No Gingival or Mucosal Lesions/ Ulcerations Neck: No Nodes, Thyroid Normal Size and Texture Lungs: Clear to auscultation, Normal air movement, No rhonchi, No wheeze Cardiovascular: Regular rate, Regular Rhythm, Normal S1, Normal S2, No murmurs Abdomen: Bowel Sounds Present, Soft, Non-Distended, Tender Extremities: No edema, No Calf Tenderness Vital Signs Temp Pulse Resp BP Pulse Ox 37.3 C 90 18 127/53 H 96 05/25/18 07:30 05/25/18 10:18 05/25/18 07:30 05/25/18 07:30 05/25/18 07:30 Oxygen Delivery Method Room Air Weight: 46 kg Body Mass Index (BMI) 21.2 Intake and Output for Last 24 Hours Intake Total 3942 / 3942 1092 / 1092 Output Total 500 / 500 Balance 3442 / 3442 1092 / 1092 Laboratory Tests Past 24 Hrs WBC 5.4 RBC 3.05 L Hgb 10.7 L 10.8 L 9.5 L Hct 32.7 L 32.0 L 28.7 L MCV 94.1 MCH 31.1 MCHC 33.1 WBC RBC Hgb Hct MCV MCH MCHC RDW RDW Differential Discharge Diet: - - NPO Discharge Activity: Return to Normal Activity Home Medications: Medications to take at Discharge Bimatoprost [Lumigan Opthalmic] 1 drp EACH EYE QHS 06/23/17 Brimonidine 0.15% [Alphagan P 0.15%] 1 drp EACH EYE BID 06/23/17 Budesonide [Budesonide EC] 3 mg PO DAILY 06/23/17 Grape Seed Extract [Meganatural-Bp] 300 mg PO DAILY PRN 06/23/17 Hydroxychloroquine [Plaquenil] 200 mg PO DAILYCM 06/23/17 Levothyroxine Sodium [Synthroid] 75 mcg PO DAILY 06/23/17 Timolol 0.5% [Timoptic] 1 drp EACH EYE DAILY 06/23/17 Aspirin E.C. [Ecotrin] 81 mg PO DAILY 05/23/18 Citrucel Fiber 1 tab PO DAILY 05/23/18 Lactobacillus Combo No.10 [Probiotic] 1 cap PO DAILY PRN 05/23/18 Metoprolol Succinate [Toprol Xl] 50 mg PO BID 05/23/18 Nut.tx.impaired Digest Fxn [Ensure Clear] 198 ml PO PRN 05/23/18 Primary Care Physician: Ashvin Cardenas MD [Primary Care Provider] - Disposition: Acute care Hospital Minutes spent on discharge:: 40 Patient Condition:: Stable Medical Necessity - Tobacco Use Smoking Status: Never smoker Meaningful Use Info Meaningful Use Diagnoses (Choose all that apply): None applicable Code Visit Inpatient E AND M: 37108 Disch Hosp 05/25/18 1051 <Electronically signed by Ashvin Bowman DO> Date Ashvin Bowman DO Cosigner Signature (if applicable): Date CC: Ashvin Bowman DO; Ashvin Cardenas MD Signed OPERATIVE REPORT - Observed: 05/25/2018 Status: F Source: [facility] 6:58 AM [facility] REPOSITORY [facility] Medical Records Department [address] [place] [address] Operative Report - Endoscopy MR#: [id number] Acct: [id number] Name: PAMELA ESPINOZA Rep #: [id number] : 1940 78 From: Sidney Khan MD PCP: Ashvin Cardenas MD Status: ADM IN Patient Name: Pamela Espinoza Procedure Date: 05/25/2018 5:46 AM Date of : 1940 Age: 78 Procedure: Colonoscopy Indications: Rectal bleeding Providers: Sidney Khan MD Medicines: See the Anesthesia note for documentation of the administered medications Patient Profile: Last Colonoscopy: 3 years ago. Complications: No immediate complications. Procedure: Pre-Anesthesia Assessment: - Prior to the procedure, a History and Physical was performed, and patient medications and allergies were reviewed. The patient's tolerance of previous anesthesia was also reviewed. The risks and benefits of the procedure and the sedation options and risks were discussed with the patient. All questions were answered, and informed consent was obtained. Prior Anticoagulants: The patient has taken aspirin, last dose was 1 day prior to procedure. ASA Grade Assessment: III - A patient with severe systemic disease. After reviewing the risks and benefits, the patient was deemed in satisfactory condition to undergo the procedure. After I obtained informed consent, the scope was passed under direct vision. Throughout the procedure, the patient's blood pressure, pulse, and oxygen saturations were monitored continuously. The Colonoscope was introduced through the anus and advanced to the cecum, identified by appendiceal orifice and ileocecal valve. The colonoscopy was performed without difficulty. The patient tolerated the procedure well. The quality of the bowel preparation was adequate to identify polyps 6 mm and larger in size. The ileocecal valve was photographed. Scope In: 6:29:04 AM Scope Withdrawal Time 0 hours 13 minutes 18 seconds Scope Out: 6:49:06 AM Total Procedure Duration Time 0 hours 20 minutes 2 seconds Findings: The digital rectal exam findings include non-thrombosed external hemorrhoids, non-thrombosed internal hemorrhoids and internal hemorrhoids that prolapse with straining, but require manual replacement into the anal canal (Grade III). Multiple medium-sized localized angioectasias with bleeding were found in the cecum. Multiple diverticula were found in the entire colon. Impression: - Non-thrombosed external hemorrhoids, non-thrombosed internal hemorrhoids and internal hemorrhoids that prolapse with straining, but require manual replacement into the anal canal (Grade III) found on digital rectal exam. - Multiple bleeding colonic angioectasias of the cecum/proximal ascending colon - Diverticulosis in the entire examined colon. Suspected bleeding diverticulum at 25cm from the anus - No specimens collected. Recommendation: - NPO. - Continue present medications. - Repeat colonoscopy at tertiary [facility] for retreatment. Procedure Code(s): --- Professional --- 75703, Colonoscopy, flexible; diagnostic, including collection of specimen(s) by brushing or washing, when performed (separate procedure) Diagnosis Code(s): --- Professional --- K64.2, Third degree hemorrhoids K64.4, Residual hemorrhoidal skin tags K55.21, Angiodysplasia of colon with hemorrhage K62.5, Hemorrhage of anus and rectum K57.30, Diverticulosis of large intestine without perforation or abscess without bleeding CPT copyright 2017 [employer]. All rights reserved. The codes documented in this report are preliminary and upon automobile spring repairer review may be revised to meet current compliance requirements. Sidney Khan MD 05/25/2018 6:57:37 AM This report has been signed electronically. Number of Addenda: 0 Note Initiated On: 05/25/2018 5:46 AM 05/25/18 0657 Date Sidney Khan MD [facility] Signature: Date (if indicated) CC: Adriana Daniels; Ashvin Cardenas MD; Sidney Khan MD Date Dictated: 05/25/18 0546 Date Transcribed: Band Manager: JAYRO Signed CBC W/DIFF, AUTOMATED Collected: 05/25/2018 Status: F Source: [facility] 4:[facility] AM [facility] REPOSITORY TYPE CODE TESTS RESULT OUT OF RANGE REFERENCE UNITS LAB L100.1000 4.4-11.0 K/mm3 Normal WBC 5.4 LAB L100.1200 4.2-5.4 M/mm3 Low RBC 3.05 LAB L100.1300 12.0-15.0 g/dl Low HGB 9.5 LAB L100.1400 37-47 % Low HCT 28.7 LAB L100.1500 81-99 fL Normal MCV 94.1 LAB L100.1600 27.0-32.0 pg Normal MCH 31.1 LAB L100.1700 32-36 g/gl Normal MCHC 33.1 LAB L100.1810 11.6-14.6 % High RDW CV 15.4 LAB L100.1820 35.1-43.9 fl High RDW SD 51.3 LAB L100.1900 150-450 K/mm3 Low PLT 124 LAB L100.2000 6.2-12.0 fl Normal MPV 9.7 LAB L100.2100 47-70 % Normal NEUT% 55.2 LAB L100.2200 19-41 % Normal LY% 30.6 LAB L100.2300 0-10 % High MONO% 11.5 LAB L100.2400 0-5 % Normal EO% 1.7 LAB L100.2500 0-1 % Normal BASO% 0.4 LAB L100.2550 0.0-0.9 % Normal IM GRAN % 0.600 Result Comment: IG% - Immature Granulocytes (promyelocytes, myelocytes and metamyelocytes) > 1% indicates that a LEFT SHIFT is Present. LAB L100.2620 2.0-7.7 X10 3/uL Normal Absolute Neut 3.0 LAB L100.2720 0.83-4.51 X10 3/ul Normal Absolute Lymph 1.65 Performed By: #### L100.0100 #### [facility] [place], [address] PROTHROMBIN TIME W/INR Collected: 05/25/2018 Status: F Source: [facility] 4:10 AM [facility] REPOSITORY TYPE CODE TESTS RESULT OUT OF RANGE REFERENCE UNITS LAB L300.4150 11.7-14.9 SECONDS Normal PROTIME 14.4 LAB L300.4200 Normal INR 1.1 Performed By: #### L300.3900, L300.4310, L500.3400, L501.9520 #### [facility] [address] [place], [place], [id number] PARTIAL THROMBOPLAST Collected: 05/25/2018 Status: F Source: [facility] TIME 4:10 AM [facility] REPOSITORY TYPE CODE TESTS RESULT OUT OF RANGE REFERENCE UNITS LAB L300.4310 24.1-36.2 Seconds Normal PTT 28.3 Performed By: #### L300.3900, L300.4310, L500.3400, L501.9520 #### [facility] [address] [place], [place], [id number] LIVER PROFILE Collected: 05/25/2018 Status: F Source: [facility] 4:10 AM [facility] REPOSITORY TYPE CODE TESTS RESULT OUT OF RANGE REFERENCE UNITS LAB L501.1500 6.4-8.2 g/dL Low T PROT 6.2 LAB L501.1800 3.2-5.0 g/dL Low ALB 2.4 LAB L501.1950 2.2-4.2 g/dL Normal GLOB 3.8 LAB L501.4100 15-37 U/L Normal AST 28 LAB L501.4305 45-117 U/L Normal ALK P 53 LAB L501.4405 13-56 U/L Normal ALT 39 LAB L501.4600 0.20-1.00 mg/dL Normal T BILI 0.80 LAB L501.4700 0.00-0.30 mg/dL Normal D BILI 0.18 Performed By: #### L300.3900, L300.4310, L500.3400, L501.9520 #### [facility] [address] [place], [place], [id number] THYROID STIM HORMONE Collected: 05/25/2018 Status: F Source: [facility] (TSH) 4:10 AM [facility] REPOSITORY TYPE CODE TESTS RESULT OUT OF RANGE REFERENCE UNITS LAB L501.9520 0.358-3.74 uIU/mL Normal TSH 3.24 Performed By: #### L300.3900, L300.4310, L500.3400, L501.9520 #### [facility] [address] [place], [place], [id number] BASIC METABOLIC Collected: 05/25/2018 Status: F Source: [facility] PROFILE (BMP) 4:10 AM [facility] REPOSITORY TYPE CODE TESTS RESULT OUT OF RANGE REFERENCE UNITS LAB L501.0100 74-106 mg/dL Normal GLU 75 Result Comment: Please note revised GLUCOSE reference range effective 2017. LAB L501.1000 7-18 mg/dL Normal BUN 7 LAB L501.1100 0.55-1.02 mg/dL Normal CREAT,SERUM 0.65 Result Comment: The validity of the calculated GFR AND GFRAA in patients over 70 years has not been determined. Clinical correlation is essential. LAB L501.1110 >60 mL/min Normal EST GFR 94 Result Comment: Non- GFR Calc LAB L501.1115 >60 mL/min Normal EST GFR - AA 113 Result Comment: GFR Calc LAB L501.1255 ml/min Normal Estimated CRCL 33.67 LAB L501.1300 10-20 RATIO Normal BUN/CRE 10.8 LAB L501.2200 8.5-10 mg/dL Low .1 CA 7.3 LAB L501.5300 136-14 mmol/L Normal 5 NA 138 LAB L501.5600 3.5-5. mmol/L Normal 1 K 3.7 LAB L501.5900 98-107 mmol/L Normal CL 106 LAB L501.6100 21.0-3 mmol/L Normal 2.0 CO2 23.0 LAB L501.6200 5-15 Normal GAP 9 Performed By: #### L500.2500 #### [facility] [address] [place], [address] HH, HEMOGLOBIN AND Collected: 05/25/2018 Status: F Source: [facility] HEMATOCRIT 12:15 AM [facility] REPOSITORY TYPE CODE TESTS RESULT OUT OF RANGE REFERENCE UNITS LAB L100.1300 12.0-15.0 g/dl Low HGB 10.8 LAB L100.1400 37-47 % Low HCT 32.0 Performed By: #### L100.0600 #### [facility] [address] [place], [place], [address] HH, HEMOGLOBIN AND Collected: 05/24/2018 Status: F Source: [facility] 6:04 PM [facility] REPOSITORY TYPE CODE TESTS RESULT OUT OF RANGE REFERENCE UNITS LAB L100.1300 12.0-15.0 g/dl Low HGB 10.7 LAB L100.1400 37-47 % Low HCT 32.7 Performed By: #### L100.0600 #### [facility] [address] [place], [address] SURGERY VISIT REPORT Observed: 05/24/2018 Status: F Source: [facility] 5:31 PM [facility] REPOSITORY [facility] [address] [place] [address] OFFICE VISIT Date of Service: 05/24/18 MR#: [id number] Acct: [id number] Name: PAMELA ESPINOZA Rep #: [id number] : 1940 Provider: Sidney Khan MD Age/Sex: 78/F Location: [facility] Status: Signed Intake Vital Signs05/24/18 Height 4 ft 10 in 05/24/18 Weight: 102 lb 05/24/18 Body Mass Index (BMI) 21.3 Intake Visit Reasons: GI Bleed Chief Complaint: FEVER, ABD PAIN, GENERALLY NOT FEELING WELL. Engine Designer Required: No Is patient in pain?: Yes (low abdomen) Allergies griseofulvin ultramicrosize [From Priti-PEG (ultramicrosize)] Allergy (Severe, Verified 05/24/18 12:45) RACING HEART AND SEVERE H/A azathioprine [From Imuran] Adverse Reaction (Severe, Verified 05/24/18 12:45) Nausea/Vom/Diarrhea azathioprine sodium [From Imuran] Adverse Reaction (Severe, Verified 05/24/18 12:45) Nausea/Vom/Diarrhea Penicillins Adverse Reaction (Severe, Verified 05/24/18 12:45) Hives Medications Bimatoprost [Lumigan Opthalmic] 1 drp EACH EYE QHS 06/23/17 [History Confirmed 05/24/18] Brimonidine 0.15% [Alphagan P 0.15%] 1 drp EACH EYE BID 06/23/17 [History Confirmed 05/24/18] Budesonide [Budesonide EC] 3 mg PO DAILY 06/23/17 [History Confirmed 05/24/18] Grape Seed Extract [Meganatural-Bp] 300 mg PO DAILY PRN 06/23/17 [History Confirmed 05/24/18] Hydroxychloroquine [Plaquenil] 200 mg PO DAILYCM 06/23/17 [History Confirmed 05/24/18] Levothyroxine Sodium [Synthroid] 75 mcg PO DAILY 06/23/17 [History Confirmed 05/24/18] Timolol 0.5% [Timoptic] 1 drp EACH EYE DAILY 06/23/17 [History Confirmed 05/24/18] Aspirin E.C. 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 The patient presented to the emergency room yesterday. She noted what she thought was bright red bleeding per rectum and clots. That is been ongoing for about 24 hours. It is of note however that his stool for Hemoccult was negative. Laboratory demonstrated a white blood cell count of 10.2 and hemoglobin 13.5 hematocrit 40.6 platelet count 166,000. INR was 1. PTT was 26. Previously on April 02, 2018 her hemoglobin was 14 and hematocrit 42.8 and platelet count 173,000. It is of note that I have assisted her in the past. She has a history of a previous benign rectal hyperplastic polyp. I performed a colonoscopy for her on February 23, 2015. That was performed for rectal bleeding. At that time internal and external hemorrhoids were noted. Multiple diverticula noted. There were multiple medium-sized diffuse angioectasias with stigmata of recent bleeding found in the cecum. The rectal polyp is noted removed. At that time I made contact with [facility] gastroenterology. They recommended that she be treated medically because of her comorbidities. I have assisted the patient previously with hospitalizations when she had abdominal pain and fever. She had a laparoscopic cholecystectomy then had postoperative fever. She had no signs of complication or fever that could be traced to her cholecystectomy. She actually has had fevers in the past of undetermined etiology though likely related to her lupus disease. She has had a previous colonoscopy and then had fever subsequent to that. Her primary medical problems include monoclonal gammopathy and lupus and autoimmune hepatitis. She has been chronically on immunosuppressive agents. In addition she is still on a low-dose aspirin. This was held as of last night. The patient is referred to me by Dr. Brandy Dodd for surgical consultation regarding rectal bleeding and a written copy of my surgical consult recommendations will return to her ROS General General: Yes fatigue; no weight change, appetite, colon cancer, breast cancer or weakness HEENT HEENT: Yes eye injury and eye surgery; no difficulty swallowing, swollen glands or hoarseness Endo Endocrine: Yes thyroid disease; no diabetes mellitus, thyroid cancer, Hair loss, heat intolerance or cold intolerance Skin Skin: No rash or changing moles Breast Breast: No left breast lump, right breast lump, nipple discharge, breast pain, abnormal mammogram, abnormal US or breast enlargement Musc Musculoskeletal: Yes arthritis; no back problems, rheumatoid arthritis, gout or joint pain Cardio Cardiovascular: No murmur, pacemaker, heart disease, atrial fibrillation, high blood pressure, heart attack, heart stent, palpitations, shortness of breat with exertion or chest pain Psych Psychiatric: No depression, anxiety or hearing voices Resp Respiratory: No shortness of breath, No sleep apnea, No cough, No COPD, No asthma, No emphysema, No wheezing Gastro Gastrointestinal: Yes abdominal pain, Yes blood in stool, Yes acid reflux, Yes hemorrhoids, No nausea or vomiting, No diarrhea, No constipation, No ulcers, No gallbladder problem, No black,tarry stools Vu Hematologic: No blood thinners, No blood disorders, No bleeding, No anemia, No blood clots Neuro Neurologic: No system reviewed and no additional complaints, except as docu, No as per HPI, No abnormal walking, No abnormal hearing, No abnormal movements, No abnormal speech, No behavioral changes, No burning sensations, No confusion, No seizure-like activity, No unsteadiness, No dizziness, No localized weakness, No frequent falls, No headache(s), No lack of coordination, No loss of vision, No memory loss, No numbness, No other visual disturbances, No radiating pain, No restless legs, No sensory deficit, No fainting, No tingling, No tremor(s), No weakness, No other Exam Const General: cooperative, comfortable Nutritional Appearance: average body habitus Orientation: awake, oriented x3 HENMT Head: normal to inspection Eyes General: appearance normal, both eyes and all related structures Neck Neck: other (kyphosis) Chest Breast Palpation: No nipple discharge Resp Effort AND Inspection: normal respiratory effort Auscultation: clear to auscultation bilaterally Cardio Rate: regular rate Rhythm: regular rhythm Heart Sounds: no murmurs GI Palpation: soft, no hepatosplenomegaly Other: Anal inspection reveals no significant external hemorrhoids but certainly internal hemorrhoids. There is evidence of recent bleeding. On digital exam there is evidence of maroon to reddish stool. Skin General: ecchymosis Extrem Other: mild edema Psych Affect: normal affect Assessment AND Plan Problems 1. Rectal bleeding K62.5 Plan Complicated 78-year-old elderly female with true evidence of rectal bleeding. Exactly why the stool Hemoccult from yesterday was negative seems confusing. She is clearly bleeding. I recommend to her hospitalization and I have spoken with Dr. Adriana Daniels. The patient has significant medical comorbidities. During hospitalization she has had spontaneous fever. Post interventions she continues to have spiking fever not correlating to any complication related to her surgical procedures. She has even had fever subsequent to colonoscopies. This is felt to be secondary to her lupus. Of main concern today is the origin of her bleeding. She is well aware that it could be from her cecal arteriovenous malformations or possibly diverticular disease or possibly hemorrhoidal disease. As noted above previously in 2015 secondary to the extensiveness of her AVMs I did not feel comfortable and even [facility] declined referral at that time. The patient is aware that a colonoscopy would likely be a diagnostic intervention rather than a therapeutic intervention. The patient is clearly aware that she is at increased risk. After extensive discussion patient agrees to hospitalization. We will try to perform a bowel prep. We will proceed with monitored anesthesia care and colonoscopy. If the patient is deemed to have hemorrhoidal bleeding that she might be a candidate for local intervention. CC: Dr. Ashvin Khan M.D., F.A.C.S. Coding Level of Care Code Comprehensive,moderate Diagnoses Rectal bleeding K62.5 05/24/18 1731 <Electronically signed by Sidney Khan MD> Date Sidney Khan MD Cosigner Signature: Date (if applicable) CC: Brandy Dodd MD; Ashvin Cardenas MD HISTORY AND PHYSICAL Observed: 05/24/2018 Status: F Source: [facility] 2:41 PM [facility] REPOSITORY [facility] Medical Records Department [address] [place] [address] History and Physical 05/24/18 1407 MR#: [id number] Acct: [id number] Name: PAMELA ESPINOZA Rep #: [id number] : 1940 78 From: No Santos NODULIZER-C PCP: Ashvin Cardenas MD Status: ADM IN Y Location: [facility]3 [id number] ADDENDUM by Adriana Daniels on 05/24/18 at 1440 Code Visit ATTENDING PHYSICIAN NOTE: I have seen and examined the patient independently and agree with the assessment, plan, history per No Santos as noted. Chief Complaint: Abdominal cramping, blot clots, previously diarrhea. The patient is a 78 y/o F w/ PMHx: History of prior GI bleed w/ R sided AVMs, Stage III Hemorrhoids, Prior bouts Diverticultitis, HTN, HLD, Hypothyroidism, Autoimmune Hepatitis, Lupus who presents to the [facility] as direct admission from Dr. Khan (Surgery) office on 05/24/18 w/ history of actually being evaluated in the ED the day prior w/ onset 2 days prior initially loose stools, intermittent abdominal cramping, fatigue and blood clots. In the ED the day prior evaluation w/ appropriate VS, negative orthostatic VS, CBC w/ WBC 10.2, Hgb 13.5, Plts 166 without shift, normal coags, BMP w/ Na 130 otherwise not marked appearing and negative guiac. Given negative guiac, she was administered NS and discussed her status w/ Dr. Khan who at that time felt appropriate for discharge from the ED with follow- up in his office on current day of presentation. In his office she notes resolved diarrhea, last BM last night, still clots and abdominal cramping and maroon colored stool noted in the office with increased fatigue and weakness. Dr. Khan discussed with Hospitalist service and decision to transition to hospital for further evaluation. Labs, Allergies, Home medications, Social Hx, PSurgHx, Family Hx per note below. Admission Review of Systems: CONSTITUTIONAL: No weight loss, fever, chills, + weakness or fatigue. HEENT: Eyes: No visual loss, blurred vision, double vision or yellow sclerae. Ears, Nose, Throat: No hearing loss, sneezing, congestion, runny nose or sore throat. SKIN: No rash or itching, lesions, wounds. CARDIOVASCULAR: No chest pain, chest pressure or chest discomfort, palpitations, edema, orthopnea, syncopal events. RESPIRATORY: No shortness of breath, cough or sputum, wheezing, hemoptysis. GASTROINTESTINAL: + anorexia, diarrhea, abdominal pain, maroon colored stools and clots, no melena, nausea, vomiting. GENITOURINARY: No dysuria, frequency, urgency or retention. NEUROLOGICAL: No headache, dizziness, syncope, paralysis, ataxia, numbness or tingling in the extremities, focal weakness, change in bowel or bladder control, seizure. MUSCULOSKELETAL: + muscle, back pain, joint pain or stiffness. HEMATOLOGIC: + anemia, bleeding or bruising. LYMPHATICS: No enlarged nodes. No history of splenectomy. PSYCHIATRIC: No history of depression or anxiety. ENDOCRINOLOGIC: No reports of sweating, cold or heat intolerance. No polyuria or polydipsia. ALLERGIES: No history of asthma, hives, eczema or rhinitis. Admission VS: As noted below. Physical Examination: General: awake, alert, oriented x 3 and cooperative, seated upright in the bed, fatigued appearance, in no apparent distress. Skin: normal color, turgor, no icterus, cyanosis. HEENT: AT/NC, EOMI, PERRLA, moderately dry MM, no carotid bruits or JVD noted. Lungs: CTA bilaterally, moderate effort, mild decrease BL bases, no rales, ronchi or wheezing. Heart: Regular rate and rhythm; no gallop, rub audible. Abdomen: soft, minimal generalized TTP, ND, mildly hyperactive BS, no HSM. Extremities: no cyanosis, clubbing, or edema. Neurological: patient awake, alert, oriented x 3; cognitive function intact; pupils equally reactive to light and accomodation; cranial nerves II-XII grossly normal, moving all 4 extremities, no focal deficits, strength moderately to severely globally decreased secondary to acute presentation. Psychiatric: affect appears fatigued, no acute evidence of depressive or anxiety feelings. Assessment and Plan: The patient is a 78 y/o F w/ PMHx: History of prior GI bleed w/ R sided AVMs, Stage III Hemorrhoids, Prior bouts Diverticultitis, HTN, HLD, Hypothyroidism, Autoimmune Hepatitis, Lupus who presents to the [facility] as direct admission from Dr. Khan (Surgery) office on 05/24/18 w/ history of actually being evaluated in the ED the day prior w/ onset 2 days prior initially loose stools, intermittent abdominal cramping, fatigue and blood clots. (1) Acute GI Bleed w/ History of R Sided AVMs and Stage III Hemorrhoids as well as Diverticulitis history: Patient w/ maroon colored stools and clots x 3 days now, ED 05/24/18 Hgb 13.5, ED normal coags, will admit to [facility] given stable VS, prior stable Hgb, repeat CBC, BMP upon admission, T+S, maintain on IVFs, obtain serial H+H q 6 hours, maintain on IV PPI. Dr. Khan, Surgery will follow. Will initiate Golytely prep immediately upon admission w/ allowance of clears only until midnight then NPO following w/ planned endoscopy in AM. (2) Hyponatremia, Hypovolemic: Recent GI losses, diarrhea improved she notes, will maintain on hydration, trend BMP. Additional Co-morbidities: Hypertension: Continue home regimen including metoprolol with hold parameters, PRN hydralazine. Hyperlipidemia: Not on agent, defer to outpatient. Autoimmune Hepatitis, Lupus: Continue home budesonide and Plaquenil regimens. CODE status: Discussed CODE status at length including difference between FULL code, DNR-CCA and DNR-CC status. Following discussions about the differences in these status, requested Full Code status. Patient notes her spouse is her HCPOA. Recommended given his serious recent surgery and ongoing hospitalization that she obtain HCPOA 2nd as well and update her living will to her discretion. Advanced Care Planning Face to Face Time: 16 minutes. Inpatient E AND M: 34110 Init Hosp L3 Procedures: 65724 Advncd Care Plan 30 Min 05/24/18 1441 <Electronically signed by Adriana Daniels > Date Adriana Daniels cc: VADIM Santos; Adriana Daniels; Ashvin Cardenas MD * Signed Problem List (1) Hypothyroidism Status: Chronic (2) Monoclonal gammopathies Status: Chronic (3) Lupus Status: Chronic (4) Hypertension Status: Chronic (5) Autoimmune hepatitis Status: Chronic (6) C. difficile colitis Status: Resolved History of Present Illness Date of Admission: 05/24/18 Chief Complaint: GI bleed. The patient is a 78 year old F who presents with blood per rectum. Patient reports multiple blood clots in stool. Patient initially presented to ER yesterday, 05/23/2018. Her hemoglobin was stable and outpatient arrangements were made with Dr. Khan. Patient reported to have continued clots in stool and was referred by Dr. Khan for admission for scope. Patient is asymptomatic. Denies dizziness, lightheadedness, shortness of breath, chest pain. She has a remote history of AVM. Her other past medical history includes hypothyroidism, autoimmune hepatitis, lupus, hypertension. 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 Tachycardia R00.0 Allergies griseofulvin ultramicrosize [From Priti-PEG (ultramicrosize)] Allergy (Severe, Verified 05/24/18 12:45) RACING HEART AND SEVERE H/A azathioprine [From Imuran] Adverse Reaction (Severe, Verified 05/24/18 12:45) Nausea/Vom/Diarrhea azathioprine sodium [From Imuran] Adverse Reaction (Severe, Verified 05/24/18 12:45) Nausea/Vom/Diarrhea Penicillins Adverse Reaction (Severe, Verified 05/24/18 12:45) Hives Home Medications: Ambulatory Orders Medication Instructions Recorded Bimatoprost [Lumigan Opthalmic] 1 drp EACH EYE QHS 06/23/17 Brimonidine 0.15% [Alphagan P 1 drp EACH EYE BID 06/23/17 Surgical History: Surgical History (Last Reviewed 05/24/18 @ 12:44 by Zoë Quiroz) H/O cataract extraction Z98.49 H/O tubal ligation Z98.51 Hx of cholecystectomy Z98.890, Z90.49 h/o mass removed from hip Surgical History: cataract, cholecystectomy, - - D+C x 2, BLTL, sinus cyst removal BL. Psychiatric History: No pertinent psych hx EVIDENCE CUSTODIAN History: No pertinent EVIDENCE CUSTODIAN history Lives: Spouse/ Significant Other Smoking Status: Never smoker Alcohol: None Drugs: None - *Family History Maternal Family History: Family History (Last Reviewed 05/24/18 @ 14:16 by VADIM Fish) Father Heart disease Mother Heart disease Paternal Family History: Family History (Last Reviewed 05/24/18 @ 14:16 by VADIM Fish) Father Heart disease Mother Heart disease Review of Systems Constitutional: Denies: Chills, Fever, Weight Change HEENT: Denies: Head Aches, Sinus Congestion, Sinus Drainage Cardiovascular: Denies: Chest Pain, Light Headedness, Palpitations, Syncope Respiratory: Denies: Cough, Shortness of breath at rest, Sputum production Gastrointestinal: Reports: Hematochezia, - - Maroon colored stools with clots. Denies: Abdominal Pain, Nausea, Vomiting Genitourinary: Denies: Dysuria Musculoskeletal: Denies: Joint Pain, Joint Tenderness Skin: Denies: Rash, Wounds Neurological: Denies: Numbness, Tingling, Focal weakness Psychiatric: Denies: Anxiety, Depression, Homicidal Ideations, Suicidal Ideations Hematologic/ Lymphatic: Denies: Easy Bruising, Easy Bleeding VTE Information - Inpt Only VTE Present on Admission: No VTE Mechan Device Prophylaxis: SCD's VTE Pharm Prophylaxis ordered?: No Reason prophylaxis not ordered:: Medical Contraindication - Physical Exam General: Alert, Oriented x3, Cooperative, No apparent distress HEENT: Atraumatic, PERRLA, EOMI, Normocephalic Neck: Supple, No JVD, Negative Carotid Bruits Lungs: Clear to auscultation, Normal air movement Cardiovascular: Regular rate, Regular Rhythm, Normal S1, Normal S2, No murmurs Abdomen: Bowel Sounds Present, Soft, Non Tender, Non-Distended Extremities: No clubbing, No cyanosis, No edema, Capillary Refill Less than 3 Seconds Skin: No rashes, No breakdown Musculoskeletal: No Tenderness to Palpation of Joints or Extremities Neurological: Cranial nerves II-XII grossly intact, Neuro grossly intact Psych/Mental Status: Normal Affect, Appropriate Assessment/Plan All Active Problems (Last Reviewed 05/24/18 @ 12:44 by Zoë Quiroz) C. difficile colitis (Resolved) Nonhealing nonsurgical wound (Resolved) Shingles (Resolved) Traumatic open wound of right lower leg (Resolved) 1. GI bleed- Dr. Khan consulted. Plan for colonoscopy tomorrow. Currently hemodynamically stable. Serial H AND H. IV PPI. Hold aspirin. Patient reportedly has a history of AVM on the right. NPO. 2. Autoimmune hepatitis/lupus-continue home Plaquenil, budesonide regimen. 3. Hypertension-stable, continue home metoprolol regimen. 4. Hypothyroidism-continue Synthroid regimen. DVT prophylaxis-SCDs, pharmacologic prophylaxis contraindicated due to #1. This patient was seen by VADIM Fish under the supervision of Dr. Daniels. 05/24/18 1435 <Electronically signed by No QUINNC> Date No QUINNC 05/24/18 1438<Electronically signed by Adriana Daniels > Cosigner Signature: Date (if applicable) Adriana Daniels CC: VADIM Santos; Adriana Daniels; Ashvin Cardenas MD Signed CBC W/DIFF, AUTOMATED Collected: 05/24/2018 Status: F Source: [place] 2:00 PM [facility] REPOSITORY TYPE CODE TESTS RESULT OUT OF RANGE REFERENCE UNITS LAB L100.1000 4.4-11.0 K/mm3 Normal WBC 8.5 LAB L100.1200 4.2-5.4 M/mm3 Low RBC 3.95 LAB L100.1300 12.0-15.0 g/dl Low HGB 11.9 LAB L100.1400 37-47 % Normal HCT 37.0 LAB L100.1500 81-99 fL Normal MCV 93.7 LAB L100.1600 27.0-32.0 pg Normal MCH 30.1 LAB L100.1700 32-36 g/gl Normal MCHC 32.2 LAB L100.1810 11.6-14.6 % High RDW CV 15.7 LAB L100.1820 35.1-43.9 fl High RDW SD 53.8 LAB L100.1900 150-450 K/mm3 Normal PLT 161 LAB L100.2000 6.2-12.0 fl Normal MPV 9.8 LAB L100.2100 47-70 % Normal NEUT% 56.1 LAB L100.2200 19-41 % Normal LY% 32.0 LAB L100.2300 0-10 % High MONO% 10.1 LAB L100.2400 0-5 % Normal EO% 0.9 LAB L100.2500 0-1 % Normal BASO% 0.4 LAB L100.2550 0.0-0.9 % Normal IM GRAN % 0.500 Result Comment: IG% - Immature Granulocytes (promyelocytes, myelocytes and metamyelocytes) > 1% indicates that a LEFT SHIFT is Present. LAB L100.2620 2.0-7.7 X10 3/uL Normal Absolute Neut 4.8 LAB L100.2720 0.83-4.51 X10 3/ul Normal Absolute Lymph 2.72 Performed By: #### L100.0100 #### [facility] [address] [place], [address] BASIC METABOLIC Collected: 05/24/2018 Status: F Source: [facility] ([facility]) 2:00 PM [facility] REPOSITORY TYPE CODE TESTS RESULT OUT OF RANGE REFERENCE UNITS LAB L501.0100 74-106 mg/dL Normal GLU 85 Result Comment: Please note revised GLUCOSE reference range effective 2017. LAB L501.1000 7-18 mg/dL Normal BUN 11 LAB L501.1100 0.55-1.02 mg/dL Normal CREAT,SERUM 0.73 Result Comment: The validity of the calculated GFR AND GFRAA in patients over 70 years has not been determined. Clinical correlation is essential. LAB L501.1110 >60 mL/min Normal EST GFR 82 Result Comment: Non- GFR Calc LAB L501.1115 >60 mL/min Normal EST GFR - AA 99 Result Comment: GFR Calc LAB L501.1255 ml/min Normal Estimated CRCL 33.67 LAB L501.1300 10-20 RATIO Normal BUN/CRE 15.1 LAB L501.2200 8.5-10 mg/dL Low .1 CA 8.1 LAB L501.5300 136-14 mmol/L Low 5 NA 129 LAB L501.5600 3.5-5. mmol/L Normal 1 K 3.6 LAB L501.5900 98-107 mmol/L Low CL 95 LAB L501.6100 21.0-3 mmol/L Normal 2.0 CO2 26.0 LAB L501.6200 5-15 Normal GAP 8 Performed By: #### L500.2500, L501.5200 #### [facility] [address] [place], [address] MAGNESIUM Collected: 05/24/2018 Status: F Source: [facility] 2:00 PM [facility] REPOSITORY TYPE CODE TESTS RESULT OUT OF RANGE REFERENCE UNITS LAB L501.5200 1.6-2.6 mg/dL Normal MG 1.9 Performed By: #### L500.2500, L501.5200 #### [facility] [address] [place], [address] TYPE AND SCREEN Collected: 05/24/2018 Status: F Source: [facility] 2:00 PM [facility] REPOSITORY Order Comment: Reason for Type AND Screen/Red Cells: HEMORRHAGE, GI BLEED TYPE CODE TESTS RESULT OUT OF RANGE REFERENCE UNITS LAB B10.0800 O Normal BLOOD TYPE GEL POSITIVE LAB B100.4000 Normal Antibody NEGATIVE Screen Performed By: #### B101.7450 #### [facility] [address] [place], [address] DISCHARGE INSTRUCTION Observed: 05/23/2018 Status: F Source: [place] 6:27 PM [facility] REPOSITORY [facility] Medical Records Department [address] [place] [address] Discharge Instruction 05/23/18 1826 MR#: [id number] Acct: [id number] Name: ERIKPAMELA Chetna Rep #: [id number] : 1940 78 From: Brandy Dodd MD PCP: Ashvin Cardenas MD Status: REG ER ED Disposition - Plan for ED Patient: Chief Complaint: GI Bleed Instructions: When You Have Gastrointestinal (GI) Bleeding Referrals: Ashvin Cardenas MD [Primary Care Provider] - Sidney Khan MD [STAFF PHYSICIAN] - What to do if you have Problems For any increased pain, shortness of breath, bleeding, nausea or vomiting, chest pain, or any unexpected problems, contact your Primary Care Provider. Call [facility] ([phone]) or report to the closest Emergency Room. Call 911 if necessary. 05/23/181826 <Electronically signed by Brandy Dodd MD> Date Brandy Dodd MD Cosigner Signature (If Indicated): Date CC: Ashvin Cardenas MD EMERGENCY DEPARTMENT Observed: 05/23/2018 Status: F Source: [facility] 6:17 PM [facility] REPOSITORY [facility] Medical Records Department [address] [place] [address] Emergency Department Summary 05/23/18 1606 MR#: [id number] Acct: [id number] Name: PAMELA ESPINOZA Rep #: [id number] : 1940 78 From: Brandy Dodd MD PCP: Ashvin Cardenas MD Status: ADM SMITH ADDENDUM by Brandy Dodd MD on 05/23/[address] Daniels discussed with Dr. Khan. Plan is for patient to see Dr. Khan in the office tomorrow. Patient and family are agreeable with this plan. She has remained hemodynamically stable. Her orthostatics are negative. She is advised signs and symptoms for which to return to the ED. She will follow-up with Dr. Khan tomorrow. 05/23/181816 Date Brandy Dodd MD cc: Ashvin Cardenas MD * Signed - ER Visit Summary Date of Service: 05/23/18 Chief Complaint: Bright red blood per rectum History of Present Illness: The patient is a 78 F presenting with bright red blood per rectum. This started last night. She has had bright red blood with clots mixed with stool since last night. She has had 5-6 episodes. She denies nausea or vomiting. She denies syncope. She has mild abdominal cramping. She denies fever. Denies other complaints. She has history of diverticulitis and hemorrhoids and states this feels different. Physical Examination: Vitals are stable. Patient is afebrile. Alert no acute distress. HEENT exam is unremarkable. Neck is supple. Lungs are clear and equal bilaterally. Heart is regular rate and rhythm. Abdomen is soft nontender nondistended. No guarding or rebound. Rectal: Maroon colored stool Extremities are unremarkable. Skin is warm and dry. No focal neurologic deficit. Remainder of exam is unremarkable. Emergency Department Course and Treatment: Patient given IV fluids. CBC, chemistries unremarkable other than sodium 130. This is near her baseline. INR is 1.0. Stool guaiac is negative. I believe this may be a false negative. Discussed with Dr. Daniels for observation. Disposition: Observation Impression: GI bleed This note was generated with [employer] dictation software. It may contain incorrect words, spelling, and punctuation that were not noted in review of the chart prior to signing ED Disposition - Plan for ED Patient: Chief Complaint: GI Bleed Referrals: Ashvin Cardenas MD [Primary Care Provider] - What to do if you have Problems For any increased pain, shortness of breath, bleeding, nausea or vomiting, chest pain, or any unexpected problems, contact your Primary Care Provider. Call [facility] ([phone]) or report to the closest Emergency Room. Call 911 if necessary. 05/23/18 1120 <Electronically signed by Brandy Dodd MD> Date Brandy Dodd MD Cosigner Signature (If Indicated): Date CC: Ashvin Cardenas MD CBC W/DIFF, AUTOMATED Collected: 05/23/2018 Status: F Source: [place] 4:28 PM [facility] REPOSITORY TYPE CODE TESTS RESULT OUT OF RANGE REFERENCE UNITS LAB L100.1000 4.4-11.0 K/mm3 Normal WBC 10.2 LAB L100.1200 4.2-5.4 M/mm3 Normal RBC 4.33 LAB L100.1300 12.0-15.0 g/dl Normal HGB 13.5 LAB L100.1400 37-47 % Normal HCT 40.6 LAB L100.1500 81-99 fL Normal MCV 93.8 LAB L100.1600 27.0-32.0 pg Normal MCH 31.2 LAB L100.1700 32-36 g/gl Normal MCHC 33.3 LAB L100.1810 11.6-14.6 % High RDW CV 15.5 LAB L100.1820 35.1-43.9 fl High RDW SD 52.7 LAB L100.1900 150-450 K/mm3 Normal PLT 166 LAB L100.2000 6.2-12.0 fl Normal MPV 10.0 LAB L100.2100 47-70 % Normal NEUT% 57.6 LAB L100.2200 19-41 % Normal LY% 30.9 LAB L100.2300 0-10 % Normal MONO% 9.8 LAB L100.2400 0-5 % Normal EO% 1.1 LAB L100.2500 0-1 % Normal BASO% 0.1 LAB L100.2550 0.0-0.9 % Normal IM GRAN % 0.500 Result Comment: IG% - Immature Granulocytes (promyelocytes, myelocytes and metamyelocytes) > 1% indicates that a LEFT SHIFT is Present. LAB L100.2620 2.0-7.7 X10 3/uL Normal Absolute Neut 5.9 LAB L100.2720 0.83-4.51 X10 3/ul Normal Absolute Lymph 3.15 Performed By: #### L100.0100 #### [facility] [address] [place], [address] BASIC METABOLIC Collected: 05/23/2018 Status: F Source: [place] PROFILE ([facility]) 4:28 PM [facility] REPOSITORY TYPE CODE TESTS RESULT OUT OF RANGE REFERENCE UNITS LAB L501.0100 74-106 mg/dL Normal GLU 83 Result Comment: Please note revised GLUCOSE reference range effective 2017. LAB L501.1000 7-18 mg/dL Normal BUN 15 LAB L501.1100 0.55-1.02 mg/dL Normal CREAT,SERUM 0.79 Result Comment: The validity of the calculated GFR AND GFRAA in patients over 70 years has not been determined. Clinical correlation is essential. LAB L501.1110 >60 mL/min Normal EST GFR 74 Result Comment: Non- GFR Calc LAB L501.1115 >60 mL/min Normal EST GFR - AA 90 Result Comment: GFR Calc LAB L501.1255 ml/min Normal Estimated CRCL 34.11 LAB L501.1300 10-20 RATIO Normal BUN/CRE 18.9 LAB L501.2200 8.5-10 mg/dL Normal .1 CA 8.6 LAB L501.5300 136-14 mmol/L Low 5 NA 130 LAB L501.5600 3.5-5. mmol/L Normal 1 K 3.6 LAB L501.5900 98-107 mmol/L Low CL 95 LAB L501.6100 21.0-3 mmol/L Normal 2.0 CO2 27.0 LAB L501.6200 5-15 Normal GAP 8 Performed By: #### L500.2500 #### [facility] [address] [place], [place], [id number] PROTHROMBIN TIME W/INR Collected: 05/23/2018 Status: F Source: [facility] 4:28 PM [facility] REPOSITORY TYPE CODE TESTS RESULT OUT OF RANGE REFERENCE UNITS LAB L300.4150 11.7-14.9 SECONDS Normal PROTIME 13.3 LAB L300.4200 Normal INR 1.0 Performed By: #### L300.3900, L300.4310 #### [facility] [address] [place], [place], [address] PARTIAL THROMBOPLAST Collected: 05/23/2018 Status: F Source: [facility] TIME 4:28 PM [facility] REPOSITORY TYPE CODE TESTS RESULT OUT OF RANGE REFERENCE UNITS LAB L300.4310 24.1-36.2 Seconds Normal PTT 26.0 Performed By: #### L300.3900, L300.4310 #### [facility] [address] [place], [address] Observed: 05/23/2018 Status: F Source: [place] STOOL OCCULT BLOOD 4:20 PM [facility] IFOB REPOSITORY Order Date: 05/23/18 Has pt arrived? Y STOB iFOB Occult Blood Negative Performed By: #### M100.7900 #### [facility] [address] [facility] [place], [address] LIVER PROFILE Collected: 05/23/2018 Status: F Source: [place] 1:27 PM [facility] REPOSITORY TYPE CODE TESTS RESULT OUT OF RANGE REFERENCE UNITS LAB L501.1500 6.4-8.2 g/dL High T PROT 8.6 LAB L501.1800 3.2-5.0 g/dL Normal ALB 3.4 LAB L501.1950 2.2-4.2 g/dL High GLOB 5.2 LAB L501.4100 15-37 U/L Normal AST 32 LAB L501.4305 45-117 U/L Normal ALK P 84 LAB L501.4405 13-56 U/L Normal ALT 47 LAB L501.4600 0.20-1.00 mg/dL Normal T BILI 0.70 LAB L501.4700 0.00-0.30 mg/dL Normal D BILI 0.14 Performed By: #### L500.3400 #### [facility] [address] [place], [address] CBC W/DIFF, AUTOMATED Collected: 04/02/2018 Status: F Source: [place] 12:24 PM [facility] REPOSITORY TYPE CODE TESTS RESULT OUT OF RANGE REFERENCE UNITS LAB L100.1000 4.4-11.0 K/mm3 Normal WBC 7.7 LAB L100.1200 4.2-5.4 M/mm3 Normal RBC 4.59 LAB L100.1300 12.0-15.0 g/dl Normal HGB 14.0 LAB L100.1400 37-47 % Normal HCT 42.8 LAB L100.1500 81-99 fL Normal MCV 93.2 LAB L100.1600 27.0-32.0 pg Normal MCH 30.5 LAB L100.1700 32-36 g/gl Normal MCHC 32.7 LAB L100.1810 11.6-14.6 % High RDW CV 15.5 LAB L100.1820 35.1-43.9 fl High RDW SD 51.5 LAB L100.1900 150-450 K/mm3 Normal PLT 173 LAB L100.2000 6.2-12.0 fl Normal MPV 10.7 LAB L100.2100 47-70 % Normal NEUT% 56.3 LAB L100.2200 19-41 % Normal LY% 27.7 LAB L100.2300 0-10 % High MONO% 13.6 LAB L100.2400 0-5 % Normal EO% 1.7 LAB L100.2500 0-1 % Normal BASO% 0.3 LAB L100.2550 0.0-0.9 % Normal IM GRAN % 0.400 Result Comment: IG% - Immature Granulocytes (promyelocytes, myelocytes and metamyelocytes) > 1% indicates that a LEFT SHIFT is Present. LAB L100.2620 2.0-7.7 X10 3/uL Normal Absolute Neut 4.3 LAB L100.2720 0.83-4.51 X10 3/ul Normal Absolute Lymph 2.12 Performed By: #### L100.0100 #### [facility] [address] [place], [place], [address] LIVER PROFILE Collected: 04/02/2018 Status: F Source: [facility] 12:24 PM [facility] REPOSITORY TYPE CODE TESTS RESULT OUT OF RANGE REFERENCE UNITS LAB L501.1500 6.4-8.2 g/dL High T PROT 8.9 LAB L501.1800 3.2-5.0 g/dL Normal ALB 3.4 LAB L501.1950 2.2-4.2 g/dL High GLOB 5.5 LAB L501.4100 15-37 U/L High AST 40 LAB L501.4305 45-117 U/L Normal ALK P 72 LAB L501.4405 13-56 U/L High ALT 58 LAB L501.4600 0.20-1.00 mg/dL Normal T BILI 0.70 LAB L501.4700 0.00-0.30 mg/dL Normal D BILI 0.19 Performed By: #### L500.3400, L501.5100 #### [facility] [address] [facility] [place], [address] GGTP Collected: 04/02/2018 Status: F Source: [facility] 12:24 PM [facility] REPOSITORY TYPE CODE TESTS RESULT OUT OF RANGE REFERENCE UNITS LAB L501.5100 5-55 U/L Normal GGTP 42 Performed By: #### L500.3400, L501.5100 #### [facility] [address] [place], [address] DISCHARGE SUMMARY Observed: 01/05/2018 Status: F Source: [facility] 4:53 PM [facility] REPOSITORY [facility] Medical Records Department [address] [place] [address] Discharge Summary 01/05/18 1649 MR#: [id number] Acct: [id number] Name: JOSIANE ESPINOZAANNCorey Basilio Rep #: [id number] : 1940 77 From: Salomón Damon DO PCP: Ronald COELLO,Ashvin Status: DIS IN Y [place] [facility] [id number] Discharge Date and Diagnosis Date of Admission: 12/29/17 Date of Discharge: 01/01/18 - Primary Discharge Diagnosis #1 Acute herpes zoster infection over areas of skin on the right upper chest #2 dehydration #3 hyponatremia secondary to hypovolemic hyponatremia #4 systemic lupus #5 autoimmune hepatitis #6 hypothyroidism - Secondary Discharge Diagnosis Chronic Problems (Last Updated 06/28/17 @ 14:58 by Cecilia Sanchez) Nonhealing nonsurgical wound (Chronic) right forearm and left calf Traumatic open wound of right lower leg (Chronic) Hypothyroidism (Chronic) Monoclonal gammopathies (Chronic) Lupus (Chronic) Hypertension (Chronic) Autoimmune hepatitis (Chronic) Dyslipidemia (Chronic) Hospital Course and Treatment Operations: None Procedures: None Summary of Care Provided: The patient is a 77 year old F them to the emergency room at [facility] with a chief complaint right upper chest discomfort over her skin extending into her right posterior neck area and upper right back. Evaluation in the ER included an EKG which showed normal sinus rhythm at a rate of 105, hemoglobin and platelet counts were 15.1 and 144,000 respectively, sodium was low at 131, troponin was unremarkable, lactate was 2. Semination the patient revealed a rash over the right upper chest area extending into the right posterior neck area and right back this rash was vesicular in nature and felt to be secondary to shingles. Patient's blood pressure was noted to be in the 90s systolic, she was felt to be dehydrated and due to her tachycardia it was recommended by the emergency room physician that the hospitalist service admit the patient for further treatment. Patient was treated with IV acyclovir and IV fluids, labs were monitored, and patient was seen by infectious diseases. Patient had no complications during her hospital stay, on 01/01/18, patient was seen and examined and felt to be in stable condition for discharge home, it was recommended that she get an outpatient shingles vaccine. Discharge Activity: Return to Normal Activity Weight Bearing Status: Full weight bearing Home Medications: Medications to take at Discharge Aspirin [Aspirin, Baby] 81 mg PO DAILY@0800 06/23/17 Bimatoprost [Lumigan Opthalmic] 1 drop EACH EYE QHS 06/23/17 Brimonidine 0.15% [Alphagan P 0.15%] 1 drop EACH EYE BID 06/23/17 Budesonide [Budesonide EC] 3 mg PO DAILY 06/23/17 Grape Seed Extract [Meganatural-Bp] 300 mg PO DAILY 06/23/17 Hydroxychloroquine [Plaquenil] 200 mg PO DAILYCM 06/23/17 Levothyroxine Sodium [Synthroid] 75 mcg PO DAILY 06/23/17 Metoprolol Tartrate [Lopressor (beta lorie)] 50 mg PO BID 06/23/17 Timolol 0.5% [Timoptic] 1 drop EACH EYE DAILY 06/23/17 Budesonide [Budesonide EC] 9 mg PO DAILY capsule.ec 01/01/18 Valacyclovir HCl [Valtrex] 1,000 mg PO TID #10 tab 01/01/18 Following Prescrptions Were Given to Patient: Valacyclovir HCl [Valtrex] 1,000 mg PO TID #10 tab Primary Care Physician: Ashvin Cardenas MD [Primary Care Provider] - Please follow up with your Primary Care Physician in: in 7- 10 days Disposition: Home Minutes spent on discharge:: 32 Patient Condition:: Stable Medical Necessity - Tobacco Use Smoking Status: Never smoker Meaningful Use Info Meaningful Use Diagnoses (Choose all that apply): None applicable Code Visit Inpatient E NIYA M: [id number] Disch Hosp 01/05/18 1653 <Electronically signed by Salomón Damon DO> Date Salomón Damon DO Cosigner Signature (if applicable): Date CC: Ashvin Cardenas MD; Salomón Damon DO Signed 12 LEAD ELECTROCARDIOGRAM Observed: 01/02/2018 Status: F Source: [place] 3:43 PM [facility] REPOSITORY [facility] Cardiovascular Services [address] [place] [address] 12 Lead EKG 12/29/17 1202 MR#: [id number] Acct: [id number] Name: PAMELA ESPINOZA Rep #: [id number] : 1940 77 From: Sagar George MD Attending Dr: Salomón Damon DO Status: DIS IN Ordering Dr: Lupillo Cardenas MD Date: 12/29/17 [place] [facility] Sex: F C Admitted: 12/29/17 Test Reason : CP Blood Pressure : / mmHG Vent. Rate : 105 BPM Atrial Rate : 105 BPM P-R Int : 140 ms QRS Dur : 080 ms QT Int : 332 ms P-R-T Axes : 058 007 065 degrees QTc Int : 438 ms Sinus tachycardia Inferior infarct , age undetermined Abnormal ECG Confirmed by SAGAR GEORGE MD ([id number]), associate editor CHILO BIRCH ([id number]) on 01/02/2018 3:42:57 PM Referred By: SETH KHALIL Confirmed By:SAGAR GEORGE MD 01/02/18 1543 Date Sagar George MD CC: Lupillo Cardenas MD; Ashvin Cardenas MD; Salomón Damon DO Signed DISCHARGE INSTRUCTION Observed: 01/01/2018 Status: F Source: [place] 6:01 PM [facility] REPOSITORY [facility] Medical Records Department [address] [place] [address] Instructions for Home/Discharge Instructions 01/01/18 1800 MR#: [id number] Acct: [id number] Name: PAMELA ESPINOZA Rep #: [id number] : 1940 77 From: Salomón Damon DO PCP: Ashvin Cardenas MD Status: ADM IN - Discharge Diagnoses Current Active Problems: Current Active and Chronic Problems (Last Updated 06/28/17 @ 14:58 by Cecilia Sanchez) Shingles (Acute) You will use the following diet at home:: No restrictions Your liquids should be the consistency of: Regular/Thin Discharge Activity: Return to Normal Activity Weight Bearing Status: Full weight bearing Allergies/Adverse Reactions: Allergies griseofulvin ultramicrosize [From Priti-PEG (ultramicrosize)] Allergy (Severe, Verified 12/29/17 11:26) RACING HEART AND SEVERE H/A azathioprine [From Imuran] Adverse Reaction (Severe, Verified 12/29/17 11:26) Nausea/Vom/Diarrhea azathioprine sodium [From Imuran] Adverse Reaction (Severe, Verified 12/29/17 11:26) Nausea/Vom/Diarrhea Penicillins Adverse Reaction (Severe, Verified 12/29/17 11:26) Hives Medications to take at Discharge Aspirin [Aspirin, Baby] 81 mg PO DAILY@0800 06/23/17 Bimatoprost [Lumigan Opthalmic] 1 drop EACH EYE QHS 06/23/17 Brimonidine 0.15% [Alphagan P 0.15%] 1 drop EACH EYE BID 06/23/17 Budesonide [Budesonide EC] 3 mg PO DAILY 06/23/17 Grape Seed Extract [Meganatural-Bp] 300 mg PO DAILY 06/23/17 Hydroxychloroquine [Plaquenil] 200 mg PO DAILYCM 06/23/17 Levothyroxine Sodium [Synthroid] 75 mcg PO DAILY 06/23/17 Metoprolol Tartrate [Lopressor (beta lorie)] 50 mg PO BID 06/23/17 Timolol 0.5% [Timoptic] 1 drop EACH EYE DAILY 06/23/17 Budesonide [Budesonide EC] 9 mg PO DAILY capsule.ec 01/01/18 Valacyclovir HCl [Valtrex] 1,000 mg PO TID #10 tab 01/01/18 The following prescriptions were given: Valacyclovir HCl [Valtrex] 1,000 mg PO TID #10 tab Primary Care Physician: Ashvin Cardenas MD [Primary Care Provider] - Please follow up with your Primary Care Physician in: in 7- 10 days 01/01/18 1801 <Electronically signed by Salomón Damon DO> Date Salomón Damon DO CC: Ashvin Cardenas MD; Sidney Thompson MD CBC-COMPLETE BLOOD CNT Collected: 01/01/2018 Status: F Source: [place] NO DIFF 6:16 AM [facility] REPOSITORY TYPE CODE TESTS RESULT OUT OF RANGE REFERENCE UNITS LAB L100.1000 4.4-11.0 K/mm3 Normal WBC 4.7 LAB L100.1200 4.2-5.4 M/mm3 Low RBC 3.63 LAB L100.1300 12.0-15.0 g/dl Low HGB 11.2 LAB L100.1400 37-47 % Low HCT 33.5 LAB L100.1500 81-99 fL Normal MCV 92.3 LAB L100.1600 27.0-32.0 pg Normal MCH 30.9 LAB L100.1700 32-36 g/gl Normal MCHC 33.4 LAB L100.1810 11.6-14.6 % High RDW CV 15.4 LAB L100.1820 35.1-43.9 fl High RDW SD 50.3 LAB L100.1900 150-450 K/mm3 Low PLT 121 LAB L100.2000 6.2-12.0 fl Normal MPV 10.6 Performed By: #### L100.0500 #### [facility] [address] [place], [address] BASIC METABOLIC Collected: 01/01/2018 Status: F Source: [place] PROFILE ([facility]) [facility] TYPE CODE TESTS RESULT OUT OF RANGE REFERENCE UNITS LAB L501.0100 74-106 mg/dL High GLU 126 Result Comment: Fasting Glucose result greater than or equal to 126 mg/dL suggests DIABETES MELLITUS per A.D.A. criteria. Please note revised GLUCOSE reference range effective 2017. LAB L501.1000 7-18 mg/dL Low BUN 3 LAB L501.1100 0.55-1.02 mg/dL Low CREAT,SERUM 0.54 Result Comment: The validity of the calculated GFR AND GFRAA in patients over 70 years has not been determined. Clinical correlation is essential. LAB L501.1110 >60 mL/min Normal EST GFR 117 Result Comment: Non- GFR Calc LAB L501.1115 >60 mL/min Normal EST GFR - AA 142 Result Comment: GFR Calc LAB L501.1255 ml/min Normal Estimated CRCL 37.93 LAB L501.1300 10-20 RATIO Low BUN/CRE 5.6 LAB L501.2200 8.5-10 mg/dL Low .1 CA 7.6 LAB L501.5300 136-14 mmol/L Normal 5 NA 137 LAB L501.5600 3.5-5. mmol/L Normal 1 K 3.5 LAB L501.5900 98-107 mmol/L Normal CL 106 LAB L501.6100 21.0-3 mmol/L Normal 2.0 CO2 23.0 LAB L501.6200 5-15 Normal GAP 8 Performed By: #### L500.2500, L501.5200 #### [facility] [address] [place], [address] MAGNESIUM Collected: 01/01/2018 Status: F Source: [place] 6:16 AM [facility] REPOSITORY TYPE CODE TESTS RESULT OUT OF RANGE REFERENCE UNITS LAB L501.5200 1.6-2.6 mg/dL Normal MG 1.7 Performed By: #### L500.2500, L501.5200 #### [facility] [address] [place], [address] CONSULTATION Observed: 12/31/2017 Status: F Source: [place] 1:55 PM [facility] REPOSITORY [facility] Medical Records Department [address] [place] [address] Consultation 12/31/17 1349 MR#: [id number] Acct: [id number] Name: PAMELA ESPINOZA Rep #: [id number] : 1940 77 From: Sidney Thompson MD PCP: Ashvin Cardenas MD Status: ADM IN Y Location: [facility]3 AB538-4 Problem List (1) Shingles Status: Acute Reason for Consult: shingles Consulted by: Dr. Sofia History of Present Illness: The patient is a 77 year old F with h/o autoimmune hepatitis and shingles once before who presented 12/29 with several days of R chest/shoulder/neck redness, tenderness, and blister formation. No confusion at home. Some mild neck soreness, nausea. No change in hearing, no vision changes, no headache. Came to ED with fever to 101.7. Started on iv acyclovir. Still with new vesicles forming, but overall feeling better. Full ROS performed and neg except as noted above. - Medical History Past Medical History (Chronic Problems): Chronic Problems (Last Updated 06/28/17 @ 14:58 by Cecilia Sanchez) Nonhealing nonsurgical wound (Chronic) right forearm and left calf Traumatic open wound of right lower leg (Chronic) Hypothyroidism (Chronic) Monoclonal gammopathies (Chronic) Lupus (Chronic) Hypertension (Chronic) Autoimmune hepatitis (Chronic) Dyslipidemia (Chronic) Allergies/Adverse Reactions: Allergies griseofulvin ultramicrosize [From Priti-PEG (ultramicrosize)] Allergy (Severe, Verified 12/29/17 11:26) RACING HEART AND SEVERE H/A azathioprine [From Imuran] Adverse Reaction (Severe, Verified 12/29/17 11:26) Nausea/Vom/Diarrhea azathioprine sodium [From Imuran] Adverse Reaction (Severe, Verified 12/29/17 11:26) Nausea/Vom/Diarrhea Penicillins Adverse Reaction (Severe, Verified 12/29/17 11:26) Hives Home Medications: Ambulatory Orders Medication Instructions Recorded Aspirin [Aspirin, Baby] 81 mg PO DAILY@0800 06/23/17 Bimatoprost [Lumigan Opthalmic] 1 drop EACH EYE QHS 06/23/17 Brimonidine 0.15% [Alphagan P 1 drop EACH EYE BID 06/23/17 - Social History SMOKING STATUS:: Never smoker Vital Signs Temp Pulse Resp BP Pulse Ox 99.7 F H 98 18 139/61 H 98 12/31/17 08:30 12/31/17 08:44 12/31/17 08:30 12/31/17 08:44 12/31/17 08:30 Oxygen Flow Rate (L/min) 2 Oxygen Delivery Method Nasal Cannula Weight: 51 kg Body Mass Index (BMI) 22.0 Laboratory Tests Past 24 Hrs WBC 4.4 RBC 4.07 L Hgb 12.0 Hct 37.1 MCV 91.2 MCH 29.5 - Other Studies Radiology: [] reviewed Other Studies: [] Route of nutrition/ use of supplements: [] Nutritional Intake: [] IV Site: [] Daly Catheter: [] - Physical Exam General: Alert, Oriented x3, Cooperative, No apparent distress HEENT: Atraumatic, PERRLA, EOMI, - - R ear canal with mild redness, no vesicles present. TM clear. R external ear with some redness and swelling, tenderness Neck: Supple, No Nodes Lungs: Clear to auscultation, Normal air movement Cardiovascular: Regular rate, Regular Rhythm Abdomen: Bowel Sounds Present, Soft, Non Tender, Non-Distended Extremities: No edema Skin: - - R chest/neck/shoulder/back redness and vesicles IV Site: Peripheral, without redness Musculoskeletal: No Tenderness to Palpation of Joints or Extremities Neurological: Cranial nerves II-XII grossly intact - Assessment/Plan Antibiotics: [] Assessment/Plan: [] Shingles with fever - improving. R ear canal with mild redness, no vesicles present. TM clear. R external ear with some redness and swelling, tenderness; no evidence of Johan Ferro at this point. Continue iv acyclovir. Plan on home on po valtrex. Likely would benefit from killed shingles vaccine as an outpatient. Will follow, thank you. 12/31/17 5848 <Electronically signed by Sidney Thompson MD> Date Sidney Thompson MD Cosigner Signature (if applicable): Date CC: Ashvin Cardenas MD; Sidney Thompson MD Signed CBC-COMPLETE BLOOD CNT Collected: 12/31/2017 Status: F Source: [place] NO DIFF 8:15 AM [facility] REPOSITORY TYPE CODE TESTS RESULT OUT OF RANGE REFERENCE UNITS LAB L100.1000 4.4-11.0 K/mm3 Normal WBC 4.4 LAB L100.1200 4.2-5.4 M/mm3 Low RBC 4.07 LAB L100.1300 12.0-15.0 g/dl Normal HGB 12.0 LAB L100.1400 37-47 % Normal HCT 37.1 LAB L100.1500 81-99 fL Normal MCV 91.2 LAB L100.1600 27.0-32.0 pg Normal MCH 29.5 LAB L100.1700 32-36 g/gl Normal MCHC 32.3 LAB L100.1810 11.6-14.6 % High RDW CV 15.7 LAB L100.1820 35.1-43.9 fl High RDW SD 52.6 LAB L100.1900 150-450 K/mm3 Low PLT 104 LAB L100.2000 6.2-12.0 fl Normal MPV 10.4 Performed By: #### L100.0500 #### [facility] [place], [address] BASIC METABOLIC Collected: 12/31/2017 Status: F Source: [place] PROFILE ([place]MP) 8:15 AM [facility] REPOSITORY TYPE CODE TESTS RESULT OUT OF RANGE REFERENCE UNITS LAB L501.0100 74-106 mg/dL High GLU 143 Result Comment: Fasting Glucose result greater than or equal to 126 mg/dL suggests DIABETES MELLITUS per A.D.A. criteria. Please note revised GLUCOSE reference range effective 2017. LAB L501.1000 7-18 mg/dL Low BUN 3 LAB L501.1100 0.55-1.02 mg/dL Normal CREAT,SERUM 0.68 Result Comment: The validity of the calculated GFR AND GFRAA in patients over 70 years has not been determined. Clinical correlation is essential. LAB L501.1110 >60 mL/min Normal EST GFR 89 Result Comment: Non- GFR Calc LAB L501.1115 >60 mL/min Normal EST GFR - AA 108 Result Comment: GFR Calc LAB L501.1255 ml/min Normal Estimated CRCL 37.93 LAB L501.1300 10-20 RATIO Low BUN/CRE 4.4 LAB L501.2200 8.5-10 mg/dL Low .1 CA 7.4 LAB L501.5300 136-14 mmol/L Normal 5 NA 136 LAB L501.5600 3.5-5. mmol/L Low 1 K 2.9 LAB L501.5900 98-107 mmol/L Normal CL 105 LAB L501.6100 21.0-3 mmol/L Normal 2.0 CO2 23.0 LAB L501.6200 5-15 Normal GAP 8 Performed By: #### L500.2500, L501.5200 #### [facility] [address] [place], [address] MAGNESIUM Collected: 12/31/2017 Status: F Source: [place] 8:15 AM [facility] REPOSITORY TYPE CODE TESTS RESULT OUT OF RANGE REFERENCE UNITS LAB L501.5200 1.6-2.6 mg/dL Normal MG 1.8 Performed By: #### L500.2500, L501.5200 #### [facility] [address] [place], [address] CBC W/DIFF, AUTOMATED Collected: 12/30/2017 Status: F Source: [place] 5:45 AM [facility] REPOSITORY TYPE CODE TESTS RESULT OUT OF RANGE REFERENCE UNITS LAB L100.1000 4.4-11.0 K/mm3 Low WBC 4.1 LAB L100.1200 4.2-5.4 M/mm3 Normal RBC 4.29 LAB L100.1300 12.0-15.0 g/dl Normal HGB 12.8 LAB L100.1400 37-47 % Normal HCT 39.6 LAB L100.1500 81-99 fL Normal MCV 92.3 LAB L100.1600 27.0-32.0 pg Normal MCH 29.8 LAB L100.1700 32-36 g/gl Normal MCHC 32.3 LAB L100.1810 11.6-14.6 % High RDW CV 15.9 LAB L100.1820 35.1-43.9 fl High RDW SD 53.5 LAB L100.1900 150-450 K/mm3 Low PLT 102 LAB L100.2000 6.2-12.0 fl Normal MPV 10.2 LAB L100.2100 47-70 % Normal NEUT% 69.8 LAB L100.2200 19-41 % Low LY% 17.8 LAB L100.2300 0-10 % High MONO% 10.8 LAB L100.2400 0-5 % Normal EO% 1.2 LAB L100.2500 0-1 % Normal BASO% 0.2 LAB L100.2550 0.0-0.9 % Normal IM GRAN % 0.200 Result Comment: IG% - Immature Granulocytes (promyelocytes, myelocytes and metamyelocytes) > 1% indicates that a LEFT SHIFT is Present. LAB L100.2620 2.0-7.7 X10 3/uL Normal Absolute Neut 2.9 LAB L100.2720 0.83-4.51 X10 3/ul Low Absolute Lymph 0.73 Performed By: #### L100.0100 #### [facility] [address] [place], [address] BASIC METABOLIC Collected: 12/30/2017 Status: F Source: [place] PROFILE ([facility]) 5:45 AM [facility] REPOSITORY TYPE CODE TESTS RESULT OUT OF RANGE REFERENCE UNITS LAB L501.0100 74-106 mg/dL Normal GLU 94 Result Comment: Please note revised GLUCOSE reference range effective 2017. LAB L501.1000 7-18 mg/dL Low BUN 5 LAB L501.1100 0.55-1.02 mg/dL Low CREAT,SERUM 0.54 Result Comment: The validity of the calculated GFR AND GFRAA in patients over 70 years has not been determined. Clinical correlation is essential. LAB L501.1110 >60 mL/min Normal EST GFR 115 Result Comment: Non- GFR Calc LAB L501.1115 >60 mL/min Normal EST GFR - AA 139 Result Comment: GFR Calc LAB L501.1255 ml/min Normal Estimated CRCL 37.93 LAB L501.1300 10-20 RATIO Low BUN/CRE 9.2 LAB L501.2200 8.5-10 mg/dL Low .1 CA 7.3 LAB L501.5300 136-14 mmol/L Normal 5 NA 137 LAB L501.5600 3.5-5. mmol/L Low 1 K 3.3 LAB L501.5900 98-107 mmol/L Normal CL 107 LAB L501.6100 21.0-3 mmol/L Normal 2.0 CO2 21.0 LAB L501.6200 5-15 Normal GAP 9 Performed By: #### L500.2500 #### [facility] [address] [place], [address] HISTORY AND PHYSICAL Observed: 12/29/2017 Status: F Source: [facility] EXAM 6:50 PM [facility] REPOSITORY [facility] Medical Records Department [address] [place] [address] History and Physical 12/29/17 1729 MR#: [id number] Acct: [id number] Name: PAMELA ESPINOZA Rep #: [id number] : 1940 77 From: Gregorio Dowell MD PCP: Ashvin Cardenas MD Status: ADM IN Y Location[place] [facility] FF632-3 History of Present Illness Date of Admission: 12/29/17 Chief Complaint: Fever The patient is a 77 year old F with past medical history of lupus and autoimmune hepatitis who presented with fever and malaise for several days ,she is now found to have vesicular rash over the right upper chest wall these are painful. Emergency room the patient is more than 100 , she was felt to have possible varicella zoster IV acyclovir was initiated. He denies any cough or purulent sputum production, shortness of breath, or vomiting. Past Medical History Past Medical History (Chronic Problems): Chronic Problems (Last Updated 06/28/17 @ 14:58 by Cecilia Sanchez) Nonhealing nonsurgical wound (Chronic) right forearm and left calf Traumatic open wound of right lower leg (Chronic) Hypothyroidism (Chronic) Monoclonal gammopathies (Chronic) Lupus (Chronic) Hypertension (Chronic) Autoimmune hepatitis (Chronic) Dyslipidemia (Chronic) Medical History: Medical History (Last Updated 06/28/17 @ 14:58 by Cecilia Sanchez) COLONOSCOPY Glaucoma H40.9 Heart disease I51.9 History of left heart catheterization (LHC) Z98.890 Hyperlipidemia E78.5 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 Tachycardia R00.0 Allergies griseofulvin ultramicrosize [From Priti-PEG (ultramicrosize)] Allergy (Severe, Verified 12/29/17 11:26) RACING HEART AND SEVERE H/A azathioprine [From Imuran] Adverse Reaction (Severe, Verified 12/29/17 11:26) Nausea/Vom/Diarrhea azathioprine sodium [From Imuran] Adverse Reaction (Severe, Verified 12/29/17 11:26) Nausea/Vom/Diarrhea Penicillins Adverse Reaction (Severe, Verified 12/29/17 11:26) Hives Home Medications: Ambulatory Orders Medication Instructions Recorded Aspirin [Aspirin, Baby] 81 mg PO DAILY@0800 06/23/17 Bimatoprost [Lumigan Opthalmic] 1 drop EACH EYE QHS 06/23/17 Brimonidine 0.15% [Alphagan P 1 drop EACH EYE BID 06/23/17 Surgical History: Surgical History (Last Updated 06/28/17 @ 14:58 by Cecilia Sanchez) Hx of cholecystectomy Z98.890, Z90.49 Surgical History: cataract, cholecystectomy, - - D+C x 2, BLTL, sinus cyst removal BL. Psychiatric History: No pertinent psych hx EVIDENCE CUSTODIAN History: No pertinent EVIDENCE CUSTODIAN history Smoking Status: Never smoker - *Family History Maternal Family History: Family History (Last Updated 06/28/17 @ 14:58 by Cecilia Sanchez) Father Heart disease Mother Heart disease History Items: No pertinent history Paternal Family History: Family History (Last Updated 06/28/17 @ 14:58 by Cecilia Sanchez) Father Heart disease Mother Heart disease History Items: No pertinent history Review of Systems Comment: All Systems were reviewed with pertinent positives mentioned in the HPI above. VTE Information - Inpt Only VTE Present on Admission: No VTE Mechan Device Prophylaxis: SCD's VTE Pharm Prophylaxis ordered?: No - Physical Exam General: Alert, Oriented x3 HEENT: Atraumatic Oral: Moist Mucosa Neck: Supple Lungs: Clear to auscultation Cardiovascular: Regular rate Skin: - - vericular eruptions over left upper chest wall Vital Signs Temp Pulse Resp BP Pulse Ox 98.1 F 95 18 107/57 L 97 12/29/17 16:45 12/29/17 16:45 12/29/17 16:45 12/29/17 16:45 12/29/17 16:47 Oxygen Flow Rate (L/min) 2 Oxygen Delivery Method Nasal Cannula Weight: 51 kg Body Mass Index (BMI) 22.0 Laboratory Tests Past 24 Hrs Lactic Acid 1.1 Assessment/Plan All Active Problems (Last Updated 06/28/17 @ 14:58 by Cecilia Sanchez) Medical management (Acute) C. difficile colitis (Acute) Generalized weakness (Acute) Uncontrollable nausea and vomiting (Acute) 1. Herpes zoster, right upper chest wall; patient has been started on IV acyclovir which we would continue. I see No evidence of secondary bacterial infection at this time and antibiotic therapy is not indicated. 2. Fever secondary to #1 3. Dehydration; we will start him on IV hydration. 4. History of lupus; we will continue her Plaquenil 5. Autoimmune hepatitis ; stable 6. Chronic steroid therapy with budesonide, will place her on stress a dose. 7. Hypothyroidism; she is on Synthroid. 8. DVT prophylaxis with Lovenox. Code Visit Inpatient E AND M: [id number] Init Hosp L3 12/29/17 1850 <Electronically signed by Gregorio Dowell MD> Date Gregorio Dowell MD Cosigner Signature: Date (if applicable) CC: Ashvin Cardenas MD; Gregorio Dowell MD Signed EMERGENCY DEPARTMENT Observed: 12/29/2017 Status: F Source: [facility] SUMMARY 3:58 PM [facility] REPOSITORY [facility] Medical Records Department [address] [place] [address] Emergency Department Summary 12/29/17 1221 MR#: [id number] Acct: [id number] Name: PAMELA ESPINOZA Rep #: [id number] : 1940 77 From: Lupillo Cardenas MD PCP: Ashvin Cardenas MD Status: ADM IN - ER Visit Summary Date of Service: 12/29/17 Chief Complaint: Ill History of Present Illness: The patient is a 77 F that has not been feeling well for several days. She has had some chest pain. She saw her PCP and had a normal troponin and chest x-ray. She is also having a fever, nausea, vomiting, and a rash over the right chest. She has a history of lupus and auto immune hepatitis. She also has a history of hypertension, hyperlipidemia, and hypothyroidism. Physical Examination: Temperature 100 and heart rate 108. Respiratory rate 20. Blood pressure normal. Pulse ox 93% on room air. Patient appears uncomfortable but not toxic or in distress. She is alert and oriented. Heart tachycardic. Lungs clear. Abdomen soft and nontender. Extremities unremarkable and nontender. She has a vesicular rash over the right upper chest extending into her right neck and right back. Neurovascular intact grossly in all extremities. Test Results: EKG showed sinus rhythm at a rate of [address] changes. No sign of acute ischemia or infarction. Hemoglobin 15.1 and platelets 144. Sodium 131 and glucose 128. Total bilirubin 1.2. Liver enzymes 5855. Troponin negative. Lactate 2.0. Chest x-ray, urinalysis, ammonia level, and cultures pending. Emergency Department Course and Treatment: Patient was placed on a monitor. Treated with IV fluids and Motrin while awaiting results. She did take Tylenol and Zofran at home already. Workup was fairly unremarkable. EKG and labs as noted above. Chest x-ray showed no acute findings. Urinalysis unremarkable. Ammonia level normal. Patient continued to have tachycardia with a heart rate 100. Blood pressure remained in the upper 90s systolic. She maintained good mentation and skin perfusion. I did continue fluid hydration. Patient was treated with acyclovir. I spoke with the hospitalist who will admit for further care. Treatment Plan: Above Disposition: Admission Impression: 1. Shingles 2. Fever This note was generated with [employer] dictation software. It may contain incorrect words, spelling, and punctuation that were not noted in review of the chart prior to signing ED Disposition - Plan for ED Patient: Chief Complaint: General Illness Referrals: Ashvin Cardenas MD [Primary Care Provider] - What to do if you have Problems For any increased pain, shortness of breath, bleeding, nausea or vomiting, chest pain, or any unexpected problems, contact your Primary Care Provider. Call [facility] ([phone]) or report to the closest Emergency Room. Call 911 if necessary. 12/29/17 1558 <Electronically signed by Lupillo Cardenas MD> Date Lupillo Cardenas MD Cosigner Signature (If Indicated): Date CC: Ashvin Cardenas MD LACTIC ACID Collected: 12/29/2017 Status: F Source: [facility] 3:49 PM [facility] REPOSITORY TYPE CODE TESTS RESULT OUT OF RANGE REFERENCE UNITS LAB L503.6005 0.4-2.0 mmol/L Normal LACTIC ACID 1.1 Performed By: #### L503.6005 #### [facility] [address] [place], [address] URINALYSIS, COMPLETE Collected: 12/29/2017 Status: F Source: [facility] 12:25 PM [facility] REPOSITORY Order Comment: How was Urine Obtained? MANUFACTURING TEST ENGINEER TO SPECIFY TYPE CODE TESTS RESULT OUT OF RANGE REFERENCE UNITS LAB L400.3000 Yellow COLOR Normal Yellow LAB L400.3050 Clear Normal CLARITY Clear LAB L400.3200 Normal mg/dl Normal GLUCOSE, UR Normal LAB L400.3300 Negative mg/dL Normal BILIRUBIN URINE Negative LAB L400.3400 Negative mg/dl High 15 KETONE UR LAB L400.3465 1.002-1.030 Normal SP.GR. DIPSTX 1.020 LAB L400.3550 5.0 - 8.0 pH UR Normal 5.0 LAB L400.3600 Negative mg/dl High PROT 30 DIPSTX LAB L400.3700 Normal mg/dl Normal UROBILI Normal LAB L400.3750 Negative Normal NITRITE UR Negative LAB L400.3780 Negative /ul Normal OCCULT BLOOD-UR Negative LAB L400.3800 Negative /ul High LEUK 25 ESTERASE LAB L400.4050 0-5 /hpf WBC Normal 0-5 SEEN LAB L400.4100 0-5 /hpf 0 Normal RBC-UA SEEN LAB L400.4150 5-10 /hpf SQUAM 0 Normal EPI SEEN LAB L400.4300 None Seen /hpf 0 Normal BACTERIA SEEN LAB L400.4350 <or=2+ /hpf 1+ Normal MUCUS, URINE Performed By: #### L400.0001 #### [facility] [address] [place], [address] Observed: 12/29/2017 Status: F Source: [place] CULTURE, URINE 12:25 PM [facility] REPOSITORY Urine Culture Culture exhibits no growth. Performed By: #### M100.0650 #### [facility] [place], [address] Observed: 12/29/2017 Status: F Source: [place] CULTURE, BLOOD (WB) 11:40 AM [facility] REPOSITORY BC No growth in 5 days. Performed By: #### M200.1000 #### [facility] [place], [place], [address] CHEST 1 VIEW Observed: 12/29/2017 Status: F Source: [place] (PORTABLE) 11:34 AM [facility] REPOSITORY [facility] Imaging Services [address] [place] [id number] Chest 1 View (Portable) MR#: [id number] Acct: [id number] Name: PAMELA ESPINOZA Rep #: [id number] : 1940 F 77 From: Salvatore Barrios MD PCP: Ronald COELLO,Ashvin Status: REG ER Study: Chest 1 View (Portable) Date of Exam: 12/29/17 Exam# [id number] Ordering Dr: Lupillo Cardenas MD STUDY: X-RAY CHEST REASON FOR EXAM: Female, 77 years old. Chest pain TECHNIQUE: Single AP portable view of the chest. COMPARISON: 12/28/2017. FINDINGS: The lungs are clear and expanded. There is no demonstrated pleural abnormality. Normal size heart. Normal mediastinum and alejandro. Normal visualized pulmonary arteries. Normal visualized aortic arch and descending thoracic aorta. Normal visualized thoracic spine. Normal visualized ribs, clavicles, and shoulders. There is no demonstrated abnormality of the visualized soft tissue structures of the upper abdomen. RAD/Chest 1 View (Portable) IMPRESSION: Normal x-ray examination of the chest. Electronically Signed: Salvatore Barrios MD at 14:03 EDT , Service support , CC: Lupillo Cardenas MD; Ashvin Cardenas MD Band Manager: Signed CBC W/DIFF, AUTOMATED Collected: 12/29/2017 Status: F Source: [facility] 11:32 AM [facility] REPOSITORY TYPE CODE TESTS RESULT OUT OF RANGE REFERENCE UNITS LAB L100.1000 4.4-11.0 K/mm3 Normal WBC 6.8 LAB L100.1200 4.2-5.4 M/mm3 Normal RBC 4.95 LAB L100.1300 12.0-15.0 g/dl High HGB 15.1 LAB L100.1400 37-47 % Normal HCT 45.3 LAB L100.1500 81-99 fL Normal MCV 91.5 LAB L100.1600 27.0-32.0 pg Normal MCH 30.5 LAB L100.1700 32-36 g/gl Normal MCHC 33.3 LAB L100.1810 11.6-14.6 % High RDW CV 15.9 LAB L100.1820 35.1-43.9 fl High RDW SD 52.4 LAB L100.1900 150-450 K/mm3 Low PLT 144 LAB L100.2000 6.2-12.0 fl Normal MPV 10.0 LAB L100.2100 47-70 % High NEUT% 71.1 LAB L100.2200 19-41 % Low LY% 14.0 LAB L100.2300 0-10 % High MONO% 13.3 LAB L100.2400 0-5 % Normal EO% 0.6 LAB L100.2500 0-1 % Normal BASO% 0.6 LAB L100.2550 0.0-0.9 % Normal IM GRAN % 0.400 Result Comment: IG% - Immature Granulocytes (promyelocytes, myelocytes and metamyelocytes) > 1% indicates that a LEFT SHIFT is Present. LAB L100.2620 2.0-7.7 X10 3/uL Normal Absolute Neut 4.8 LAB L100.2720 0.83-4.51 X10 3/ul Normal Absolute Lymph 0.95 Performed By: #### L100.0100 #### [facility] [address] [place], [address] COMPREHENSIVE METABOLIC Collected: 12/29/2017 Status: F Source: [facility] 11:32 AM [facility] REPOSITORY TYPE CODE TESTS RESULT OUT OF RANGE REFERENCE UNITS LAB L501.0100 74-106 mg/dL High GLU 128 Result Comment: Fasting Glucose result greater than or equal to 126 mg/dL suggests DIABETES MELLITUS per A.D.A. criteria. Please note revised GLUCOSE reference range effective 2017. LAB L501.1000 7-18 mg/dL Normal BUN 8 LAB L501.1100 0.55-1.02 mg/dL Normal CREAT,SERUM 0.91 Result Comment: The validity of the calculated GFR AND GFRAA in patients over 70 years has not been determined. Clinical correlation is essential. LAB L501.1110 >60 mL/min Normal EST GFR 64 Result Comment: Non- GFR Calc LAB L501.1115 >60 mL/min Normal EST GFR - AA 77 Result Comment: GFR Calc LAB L501.1255 ml/min Normal Estimated CRCL 37.19 LAB L501.1300 10-20 RATIO Low BUN/CRE 8.8 LAB L501.1500 6.4-8. g/dL High 2 T PROT 8.4 LAB L501.1800 3.2-5. g/dL Normal 0 ALB 3.2 LAB L501.1950 2.2-4. g/dL High 2 GLOB 5.2 LAB L501.2000 0.9-2. RATIO Low 4 A/G 0.6 LAB L501.2200 8.5-10 mg/dL Low .1 CA 8.2 LAB L501.4100 15-37 U/L High AST 55 LAB L501.4305 45-117 U/L Normal ALK P 63 LAB L501.4405 13-56 U/L High ALT 58 LAB L501.4600 0.20-1 mg/dL High .00 T BILI 1.20 LAB L501.5300 136-14 mmol/L Low 5 NA 131 LAB L501.5600 3.5-5. mmol/L Normal 1 K 3.5 LAB L501.5900 98-107 mmol/L Normal CL 98 LAB L501.6100 21.0-3 mmol/L Normal 2.0 CO2 26.0 LAB L501.6200 5-15 Normal GAP 7 Performed By: #### L500.4050, L501.4010 #### [facility] [address] [place], [place], [address] TROPONIN-I Collected: 12/29/2017 Status: F Source: [facility] 11:32 AM [facility] REPOSITORY TYPE CODE TESTS RESULT OUT OF RANGE REFERENCE UNITS LAB L501.4010 <0.045 ng/mL Normal 0.025 TROPONIN-I Result Comment: TROPONIN-I EXPECTED VALUES <0.045 Negative 0.045 - 0.590 Consistent with Cardiac Damage > OR = 0.600 Critical Value Not every elevated troponin is indicative of AK. These values should be used with clinical judgement in examining the patient's clinical picture for diagnosis. To establish a diagnosis of AK versus myocardial injury, there must be a demonstrated rise and/or fall in the troponin values, in addition to ischemic symptoms, EKG changes, new regional wall motion abnormality, and/or angiographical evidence. PLEASE NOTE: REFERENCE RANGES EDITED 17 Performed By: #### L500.4050, L501.4010 #### [facility] [address] [place], [place], [address] LACTIC ACID Collected: 12/29/2017 Status: F Source: [facility] 11:32 AM [facility] REPOSITORY Order Comment: Yes/No query for Sepsis Lactate Rule Y TYPE CODE TESTS RESULT OUT OF RANGE REFERENCE UNITS LAB L503.6005 0.4-2.0 mmol/L Normal LACTIC ACID 2.0 Result Comment: Critical Result(s) Called at: 12:15:38 12/29/2017 by: Rubén Ugalde RN Performed By: #### L503.6005 #### [facility] [address] [place], [address] AMMONIA Collected: 12/29/2017 Status: F Source: [place] 11:32 AM [facility] REPOSITORY TYPE CODE TESTS RESULT OUT OF RANGE REFERENCE UNITS LAB L503.5510 11-32 umol/L Normal AMMONIA 17.0 Performed By: #### L503.5510 #### [facility] [address] [place], [address] PROTHROMBIN TIME W/INR Collected: 12/29/2017 Status: F Source: [facility] 11:32 AM [facility] REPOSITORY TYPE CODE TESTS RESULT OUT OF RANGE REFERENCE UNITS LAB L300.4150 11.7-14.9 SECONDS Normal PROTIME 14.3 LAB L300.4200 Normal INR 1.1 Performed By: #### L300.3900, L300.4310 #### [facility] [place], [address] PARTIAL THROMBOPLAST Collected: 12/29/2017 Status: F Source: [facility] TIME 11:32 AM [facility] REPOSITORY TYPE CODE TESTS RESULT OUT OF RANGE REFERENCE UNITS LAB L300.4310 24.1-36.2 Seconds Normal PTT 28.4 Performed By: #### L300.3900, L300.4310 #### [facility] [address] [place], [address] Observed: 12/29/2017 Status: F Source: [place] CULTURE, BLOOD (WB) 11:32 AM [facility] REPOS[facility] BC No growth in 5 days. Performed By: #### M200.1000 #### [facility] [address] [place], [address] CBC W/DIFF, AUTOMATED Collected: 12/28/2017 Status: F Source: [facility] 11:33 AM [facility] REPOSIT[facility] TYPE CODE TESTS RESULT OUT OF RANGE REFERENCE UNITS LAB L100.1000 4.4-11.0 K/mm3 Normal WBC 8.0 LAB L100.1200 4.2-5.4 M/mm3 Normal RBC 5.02 LAB L100.1300 12.0-15.0 g/dl High HGB 15.1 LAB L100.1400 37-47 % Normal HCT 46.9 LAB L100.1500 81-99 fL Normal MCV 93.4 LAB L100.1600 27.0-32.0 pg Normal MCH 30.1 LAB L100.1700 32-36 g/gl Normal MCHC 32.2 LAB L100.1810 11.6-14.6 % High RDW CV 15.9 LAB L100.1820 35.1-43.9 fl High RDW SD 53.7 LAB L100.1900 150-450 K/mm3 Normal PLT 157 LAB L100.2000 6.2-12.0 fl Normal MPV 10.1 LAB L100.2100 47-70 % Normal NEUT% 68.1 LAB L100.2200 19-41 % Normal LY% 19.3 LAB L100.2300 0-10 % High MONO% 11.5 LAB L100.2400 0-5 % Normal EO% 0.4 LAB L100.2500 0-1 % Normal BASO% 0.3 LAB L100.2550 0.0-0.9 % Normal IM GRAN % 0.400 Result Comment: IG% - Immature Granulocytes (promyelocytes, myelocytes and metamyelocytes) > 1% indicates that a LEFT SHIFT is Present. LAB L100.2620 2.0-7.7 X10 3/uL Normal Absolute Neut 5.4 LAB L100.2720 0.83-4.51 X10 3/ul Normal Absolute Lymph 1.54 Performed By: #### L100.0100 #### [facility] [address] [place], [address] COMPREHENSIVE METABOLIC Collected: 12/28/2017 Status: F Source: [facility] 11:33 AM [facility] REPOSIT[facility] Order Comment: 'TROP' Serial specimen #1, #2, #3, or #4: 1 TYPE CODE TESTS RESULT OUT OF RANGE REFERENCE UNITS LAB L501.0100 74-106 mg/dL Normal GLU 105 Result Comment: Fasting Glucose result from 100 to 125 mg/dL suggests IMPAIRED HOMEOSTASIS per A.D.A. criteria. Please note revised GLUCOSE reference range effective 2017. LAB L501.1000 7-18 mg/dL Normal BUN 9 LAB L501.1100 0.55-1.02 mg/dL Normal CREAT,SERUM 0.94 Result Comment: The validity of the calculated GFR AND GFRAA in patients over 70 years has not been determined. Clinical correlation is essential. LAB L501.1110 >60 mL/min Normal EST GFR 61 Result Comment: Non- GFR Calc LAB L501.1115 >60 mL/min Normal EST GFR - AA 74 Result Comment: GFR Calc LAB L501.1300 10-20 RATIO Low BUN/CRE 9.6 LAB L501.1500 6.4-8.2 g/dL High T PROT 8.8 LAB L501.1800 3.2-5.0 g/dL Normal ALB 3.6 LAB L501.1950 2.2-4.2 g/dL High GLOB 5.2 LAB L501.2000 0.9-2.4 RATIO Low A/G 0.7 LAB L501.2200 8.5-10.1 mg/dL Normal CA 8.8 LAB L501.4100 15-37 U/L High AST 44 LAB L501.4305 45-117 U/L Normal ALK P 71 LAB L501.4405 13-56 U/L High ALT 58 LAB L501.4600 0.20-1.00 mg/dL Normal T BILI 1.00 LAB L501.5300 136-145 mmol/L Normal NA 137 LAB L501.5600 3.5-5.1 mmol/L Normal K 3.5 LAB L501.5900 98-107 mmol/L Normal CL 101 LAB L501.6100 21.0-32.0 mmol/L Normal CO2 27.0 LAB L501.6200 5-15 Normal GAP 9 Performed By: #### L500.4050, L501.3620, L501.4010, L501.5200, L501.6710 #### [facility] [address] [place], [place], [address] CPK TOTAL, CREATINE Collected: 12/28/2017 Status: F Source: [place] 11:33 AM [facility] REPOSIT[facility] Order Comment: 'TROP' Serial specimen #1, #2, #3, or #4: 1 TYPE CODE TESTS RESULT OUT OF RANGE REFERENCE UNITS LAB L501.3620 26-192 U/L Normal CPK TOTAL 54 Performed By: #### L500.4050, L501.3620, L501.4010, L501.5200, L501.6710 #### [facility] [address] [place], [address] TROPONIN-I Collected: 12/28/2017 Status: F Source: [facility] 11:33 [facility] REPOSITORY Order Comment: 'TROP' Serial specimen #1, #2, #3, or #4: 1 TYPE CODE TESTS RESULT OUT OF RANGE REFERENCE UNITS LAB L501.4010 <0.045 ng/mL Normal < 0.015 TROPONIN-I Result Comment: TROPONIN-I EXPECTED VALUES <0.045 Negative 0.045 - 0.590 Consistent with Cardiac Damage > OR = 0.600 Critical Value Not every elevated troponin is indicative of AK. These values should be used with clinical judgement in examining the patient's clinical picture for diagnosis. To establish a diagnosis of AK versus myocardial injury, there must be a demonstrated rise and/or fall in the troponin values, in addition to ischemic symptoms, EKG changes, new regional wall motion abnormality, and/or angiographical evidence. PLEASE NOTE: REFERENCE RANGES EDITED 17 Performed By: #### L500.4050, L501.3620, L501.4010, L501.5200, L501.6710 #### [facility] [address] [place], [address] MAGNESIUM Collected: 12/28/2017 Status: F Source: [facility] 11:33 [facility] REPOSITORY Order Comment: 'TROP' Serial specimen #1, #2, #3, or #4: 1 TYPE CODE TESTS RESULT OUT OF RANGE REFERENCE UNITS LAB L501.5200 1.6-2.6 mg/dL Normal MG 2.0 Performed By: #### L500.4050, L501.3620, L501.4010, L501.5200, L501.6710 #### [facility] [address] [place], [address] CRP Collected: 12/28/2017 Status: F Source: [facility] 11:33 AM [facility] REPOS[facility] Order Comment: 'TROP' Serial specimen #1, #2, #3, or #4: 1 TYPE CODE TESTS RESULT OUT OF RANGE REFERENCE UNITS LAB L501.6710 0.0-3.0 mg/L High 10.40 C-REACTIVE PROT Result Comment: C-Reactive Protein (CRP) provides useful information for the diagnosis, therapy and monitoring of inflammatory processes and associated diseases. For the evaluation of Relative Risk for Cardiovascular Disease, a High Sensitivity CRP (HSCRP) should be ordered. Performed By: #### L500.4050, L501.3620, L501.4010, L501.5200, L501.6710 #### [facility] [address] [place], [address] VITAMIN B12 Collected: 12/28/2017 Status: F Source: [facility] 11:33 AM [facility] REPOSITORY TYPE CODE TESTS RESULT OUT OF RANGE REFERENCE UNITS LAB L503.0105 211-911 pg/mL Normal Vitamin B12 254 Performed By: #### L503.0105 #### [facility] [address] [place], [address] CHEST PA AND LATERAL Observed: 12/28/2017 Status: F Source: [facility] 11:25 AM [facility] REPOSITORY [facility] Imaging Services [address] [place] [address] Chest PA and Lateral MR#: [id number] Acct: [id number] Name: PAMELA ESPINOZA Chetna Rep #: [id number] : 1940 F 77 From: Salvatore Barrios MD PCP: Ashvin Cardenas MD Status: REG CLI Study: Chest PA and Lateral Date of Exam: 12/28/17 Exam# [id number] Ordering Dr: RUBÉN KHALIL STUDY: X-RAY CHEST REASON FOR EXAM: Female, 77 years old. Chest pain and fever TECHNIQUE: Frontal and lateral views of the chest. COMPARISON: 06/23/2017. FINDINGS: The lungs are clear and expanded. There is no demonstrated pleural abnormality. Normal size heart. Normal mediastinum and alejandro. Normal visualized pulmonary arteries. Normal visualized aortic arch and descending thoracic aorta. Normal visualized thoracic spine. Normal visualized ribs, clavicles, and shoulders. There is no demonstrated abnormality of the visualized soft tissue structures of the upper abdomen. RAD/Chest PA and Lateral IMPRESSION: Normal x-ray examination of the chest. Electronically Signed: Salvatore Barrios MD at 11:53 EDT , Service support , CC: Ashvin Cardenas MD; RUBÉN KHALIL Band Manager: Signed CBC W/DIFF, AUTOMATED Collected: 12/07/2017 Status: F Source: [facility] 2:07 PM [facility] REPOSITORY TYPE CODE TESTS RESULT OUT OF RANGE REFERENCE UNITS LAB L100.1000 4.4-11.0 K/mm3 Normal WBC 8.9 LAB L100.1200 4.2-5.4 M/mm3 Normal RBC 4.71 LAB L100.1300 12.0-15.0 g/dl Normal HGB 14.1 LAB L100.1400 37-47 % Normal HCT 43.6 LAB L100.1500 81-99 fL Normal MCV 92.6 LAB L100.1600 27.0-32.0 pg Normal MCH 29.9 LAB L100.1700 32-36 g/gl Normal MCHC 32.3 LAB L100.1810 11.6-14.6 % High RDW CV 16.8 LAB L100.1820 35.1-43.9 fl High RDW SD 55.9 LAB L100.1900 150-450 K/mm3 Normal PLT 195 LAB L100.2000 6.2-12.0 fl Normal MPV 10.6 LAB L100.2100 47-70 % Normal NEUT% 53.1 LAB L100.2200 19-41 % Normal LY% 32.3 LAB L100.2300 0-10 % High MONO% 12.4 LAB L100.2400 0-5 % Normal EO% 0.8 LAB L100.2500 0-1 % Normal BASO% 0.3 LAB L100.2550 0.0-0.9 % High IM GRAN % 1.100 Result Comment: IG% - Immature Granulocytes (promyelocytes, myelocytes and metamyelocytes) > 1% indicates that a LEFT SHIFT is Present. LAB L100.2620 2.0-7.7 X10 3/uL Normal Absolute Neut 4.7 LAB L100.2720 0.83-4.51 X10 3/ul Normal Absolute Lymph 2.88 Performed By: #### L100.0100 #### [facility] [address] [place], [address] LIVER PROFILE Collected: 12/07/2017 Status: F Source: [facility] 2:07 PM [facility] REPOSITORY TYPE CODE TESTS RESULT OUT OF RANGE REFERENCE UNITS LAB L501.1500 6.4-8.2 g/dL High T PROT 8.5 LAB L501.1800 3.2-5.0 g/dL Normal ALB 3.5 LAB L501.1950 2.2-4.2 g/dL High GLOB 5.0 LAB L501.4100 15-37 U/L Normal AST 30 LAB L501.4305 45-117 U/L Normal ALK P 68 LAB L501.4405 13-56 U/L Normal ALT 46 LAB L501.4600 0.20-1.00 mg/dL Normal T BILI 0.60 LAB L501.4700 0.00-0.30 mg/dL Normal D BILI 0.13 Performed By: #### L500.3400, L501.5100 #### [facility] [address] [place], [address] GGTP Collected: 12/07/2017 Status: F Source: [facility] 2:07 PM [facility] REPOSITORY TYPE CODE TESTS RESULT OUT OF RANGE REFERENCE UNITS LAB L501.5100 5-55 U/L Normal GGTP 42 Performed By: #### L500.3400, L501.5100 #### [facility] [address] [place], [address] CBC W/DIFF, AUTOMATED Collected: 07/11/2017 Status: F Source: [facility] 3:19 PM [facility] REPOSITORY TYPE CODE TESTS RESULT OUT OF RANGE REFERENCE UNITS LAB L100.1000 4.4-11.0 K/mm3 Normal WBC 9.6 LAB L100.1200 4.2-5.4 M/mm3 Low RBC 4.07 LAB L100.1300 12.0-15.0 g/dl Normal HGB 12.3 LAB L100.1400 37-47 % Normal HCT 40.0 LAB L100.1500 81-99 fL Normal MCV 98.3 LAB L100.1600 27.0-32.0 pg Normal MCH 30.2 LAB L100.1700 32-36 g/gl Low MCHC 30.8 LAB L100.1810 11.6-14.6 % High RDW CV 15.9 LAB L100.1820 35.1-43.9 fl High RDW SD 56.7 LAB L100.1900 150-450 K/mm3 High PLT 467 LAB L100.2000 6.2-12.0 fl Normal MPV 9.8 LAB L100.2100 47-70 % High NEUT% 74.9 LAB L100.2200 19-41 % Low LY% 15.2 LAB L100.2300 0-10 % Normal MONO% 7.6 LAB L100.2400 0-5 % Normal EO% 0.6 LAB L100.2500 0-1 % Normal BASO% 0.3 LAB L100.2550 0.0-0.9 % High IM GRAN % 1.400 Result Comment: IG% - Immature Granulocytes (promyelocytes, myelocytes and metamyelocytes) > 1% indicates that a LEFT SHIFT is Present. LAB L100.2620 2.0-7.7 X10 3/uL Normal Absolute Neut 7.2 LAB L100.2720 0.83-4.51 X10 3/ul Normal Absolute Lymph 1.45 Performed By: #### L100.0100 #### [facility] [address] [place], [place], [address] BASIC METABOLIC Collected: 07/11/2017 Status: F Source: [place] PROFILE (BMP) 3:14 PM [facility] REPOSITORY Order Comment: Order Date: 07/05/17 Order Info: 0667-1 - BMP Order Info: [id number] - MG Comments: standing orderstanding order Comments: standing orderstanding order TYPE CODE TESTS RESULT OUT OF RANGE REFERENCE UNITS LAB L501.0100 70-110 mg/dL High GLU 146 Result Comment: Fasting Glucose result greater than or equal to 126 mg/dL suggests DIABETES MELLITUS per A.D.A. criteria. LAB L501.1000 7-18 mg/dL Normal BUN 11 LAB L501.1100 0.55-1.02 mg/dL Normal CREAT,SERUM 0.76 Result Comment: The validity of the calculated GFR AND GFRAA in patients over 70 years has not been determined. Clinical correlation is essential. LAB L501.1110 >60 mL/min Normal EST GFR 79 Result Comment: Non- GFR Calc LAB L501.1115 >60 mL/min Normal EST GFR - AA 95 Result Comment: GFR Calc LAB L501.1300 10-20 RATIO Normal BUN/CRE 14.6 LAB L501.2200 8.5-10.1 mg/dL CA Normal 9.0 LAB L501.5300 136-145 mmol/L Low NA 133 LAB L501.5600 3.5-5.1 mmol/L K Normal 4.2 Result Comment: Moderate Hemolysis, Result may be falsely increased. LAB L501.5900 98-107 mmol/L Low CL 96 LAB L501.6100 21.0-32.0 mmol/L Normal CO2 27.0 LAB L501.6200 5-15 Normal GAP 10 Performed By: #### L500.2500, L501.5200 #### [facility] [address] [place], [place], [address] MAGNESIUM Collected: 07/11/2017 Status: F Source: [facility] 3:14 PM [facility] REPOSITORY Order Comment: Order Date: 07/05/17 Order Info: [id number] - BMP Order Info: [id number] - MG Comments: standing orderstanding order Comments: standing orderstanding order TYPE CODE TESTS RESULT OUT OF RANGE REFERENCE UNITS LAB L501.5200 1.8-2.4 mg/dL Normal MG 2.3 Result Comment: Moderate Hemolysis, Result may be falsely increased. Performed By: #### L500.2500, L501.5200 #### [facility] [address] [place], [address] LIVER PROFILE Collected: 07/11/2017 Status: F Source: [place] 3:14 PM [facility] REPOSITORY Order Comment: Order Date: 07/05/17 Order Info: 0667-1 - BMP Order Info: [id number] - MG Comments: standing orderstanding order Comments: standing orderstanding order TYPE CODE TESTS RESULT OUT OF RANGE REFERENCE UNITS LAB L501.1500 6.4-8.2 g/dL High T PROT 8.8 LAB L501.1800 3.4-5.0 g/dL Low ALB 3.3 Result Comment: Please note revised Albumin AND Globulin reference range effective 2017. LAB L501.1950 2.2-4.2 g/dL High GLOB 5.5 LAB L501.4100 15-37 U/L High AST 42 Result Comment: Moderate Hemolysis, Result may be falsely increased. LAB L501.4305 45-117 U/L Normal ALK P 82 LAB L501.4405 12-78 U/L Normal ALT 38 LAB L501.4600 0.20-1.00 mg/dL Normal T BILI 0.60 LAB L501.4700 0.00-0.30 mg/dL Normal D BILI 0.08 Performed By: #### L500.3400, L501.5100 #### [facility] [address] [place], [place], [address] GGTP Collected: 07/11/2017 Status: F Source: [facility] 3:14 PM [facility] REPOSITORY Order Comment: Order Date: 07/05/17 Order Info: 0667-1 - BMP Order Info: [id number] - MG Comments: standing orderstanding order Comments: standing orderstanding order TYPE CODE TESTS RESULT OUT OF RANGE REFERENCE UNITS LAB L501.5100 5-55 U/L High GGTP 68 Performed By: #### L500.3400, L501.5100 #### [facility] [address] [place], [place], [address] ALLERGIES ALLERGIES DATE TYPE / CODE NAME / CODE REACTION SEVERITY SOURCE 05/24/2018 Drug griseofulvin RACING HEART [place] Allergy/416 ultramicrosize/F000 AND SEVERE H/A Community [id number]([facility] 894679[facility] ED CT) Repository 05/24/2018 Drug azathioprine Nausea/Vom/Juju [place] Allergy/416 sodium/[id number](R rrhea Community 601998([facility] Repository 05/24/2018 Drug Penicillins/[id number] Hives [place] Allergy/416 476(RXNORM) [facility] 903492([facility] ED CT) Repository 05/24/2018 Drug azathioprine/[id number] Nausea/Vom/Juju [place] Allergy/416 3419(RXNORM) [facility] 386102([facility] ED CT) Repository ENCOUNTERS ENCOUNTERS ADMIT/DISCHARGE ACCOUNT NUMBER ADMITTING ENCOUNTER LOCATION SOURCE CLASS 06/15/2018/06/28/20 [id number] [place] [place] 18 [facility] ding:[id number] Repository : [id number]: 2 05/25/2018/06/15/20 [id number] [facility] Building:[address] Encounter Room: [place] [address]Bed: A [facility] Repository 05/25/2018 [id number] Ambulatory BMSBuilding: [place] [facility] Repository 05/24/2018/05/25/20 [id number] [place] [facility] ding:[id number] Repository : [id number]: 1 05/24/2018 [id number] [place] Ambulatory BMSBuilding: [place] BMS.Formerly [facility], [facility]1983 Repository 05/24/2018 [id number] [place] Ambulatory BMSBuilding: [place] BMS.Formerly [facility], [facility] Repository 05/24/2018/05/25/20 [id number] Ambulatory [place]Building[place] BMS.CF.Count includes the [facility] Repository 05/24/2018/05/24/20 [id number] Ambulatory BMSBuilding: [place] 18 BMS.Count includes the [facility] Repository 05/23/2018/05/23/20 [id number] [place] 18 [facility] ding:EDRoom: Repository MS210 05/23/2018 [id number] Ambulatory [facility] ding:LAB Repository 04/02/2018 [id number] Ambulatory [facility] ding:MTLAB Repository 12/29/2017/01/02/20 [id number] [place], Inpatient [address] ding:[id number] Repository : [id number]: 1 12/29/2017 [id number] [place] Ambulatory BMSBuilding: [place] [facility].Formerly [facility], [facility]1983 Repository 12/29/2017 [id number] [place] Ambulatory BMSBuilding: [place] [facility].Formerly [facility], [facility]–1983 Repository 12/29/2017 [id number] [place] Ambulatory BMSBuilding: [place].Formerly [facility], [facility]–1983 Repository 12/29/2017 [id number] [place] Amb[place] BMSBuilding: [place].Formerly [facility], [facility] Repository 12/28/2017 [id number] Ambulatory [facility] ding:MTRAD Repository 12/07/2017 [id number] Ambulatory [facility] ding:MTLAB Repository 07/11/2017 [id number] Ambulatory [facility] ding:MTLAB Repository PAYERS PAYERS ENCOUNTER GUARANTOR PAYER SUBSCRIBER SOURCE 06/15/2018 RM GAINES [facility] [id number] Insurance:MEDICARE RICHARDDOB: [facility], PART A [facility] [id number] Health Center [address]Rbh: Number: Repository [id number] (HP) Date:2018-06-15 06/15/2018 Secondary NOT GIVENUNK [place] Insurance:SELF PAY [facility] Number: Effective Repository Date:2018-06-15 05/25/2018 PAMELA GAINES [facility] RICHARDDOB: Insurance:MEDICARE A RICHARDDOB: [place] [id number] AND [facility] Number: [id number] [facility], [id number] [address] [place] [address] 89773Anu: Date:[place] Repository [address]Aat: [phone] (EY) [phone] () 05/25/2018 RM DUKEE [place] [id number] Insurance:MEDICARE RICHARDDOB: [facility], PART A [facility] [id number] Health Center [address]Knv: Number: Repository [id number] () Date:2018-05-24 05/25/2018 Secondary [place]UNK [place] Insurance:SELF PAY [facility] Number: Effective Repository Date:2018-05-25 05/24/2018 RM [place] [id number] Insurance:MEDICARE RICHARDDOB: [facility], PART A [facility] [id number] Health Center [address]Uew: Number: Repository [id number] () Date:2018-05-24 05/24/2018 Secondary [place]UNK [place] Insurance:SELF PAY [facility] Number: Effective Repository Date:2018-05-24 05/24/2018 RM [place] [id number] Insurance:MEDICARE RICHARDDOB: [facility], PART A [facility] [id number] Health Center [address]Vbw: Number: Repository [id number] () Date:2018-05-24 05/24/2018 Secondary [place]IVENUNK [place] Insurance:SELF PAY [facility] Number: Effective Repository Date:2018-05-24 05/24/2018 RM Cervantes Primary PAMELA [place]na [place] [id number] Insurance:MEDICARE RICHARDDOB: [facility], PART [facility] [id number] Health Center [address]Edw: Number: Repository [id number] () Date:2018-05-24 05/24/2018 Secondary NOT GIVENUNK [place] Insurance:SELF PAY [facility] Number: Effective Repository Date:2018-05-24 05/24/2018 RM [place] [id number] Insurance:MEDICARE [facility] [id number] Hospital [place] [address]Rwq: Number: Repository [id number] (HP) Date:2018-05-24 05/24/2018 Secondary NOT GIVENUNK [place] Insurance:SELF PAY [facility] Number: Effective Repository Date:2018-05-24 05/24/2018 RM DUKECorey Basilio [place] [id number] Insurance:MEDICARE [facility]DOB[facility] [id number] Hospital [place] [address]Axk: Number: Repository [id number] (HP) Date:2018-05-24 05/24/2018 Secondary [place]K [place] Insurance:SELF PAY [facility] Number: Effective Repository Date:2018-05-24 05/23/2018 RM [place] [id number] Insurance:MEDICARE RICHARDDOB: [facility], PART A [facility] [id number] Health Center [address]Xfk: Number: Repository [id number] (HP) Date:2018-05-23 05/23/2018 Secondary NOT GIVENUNK [place] Insurance:SELF PAY [facility] Number: Effective Repository Date:2018-05-23 05/23/2018 MR Israel PAMELA Epps [id number] Insurance:MEDICARE [facility]DOB[facility] [id number] Health Center [address]Aex: Number: Repository [id number] (HP) Date:2018-05-23 05/23/2018 Secondary NOT GIVENUNK [place] Insurance:SELF PAY [facility] Number: Effective Repository Date:2018-05-23 04/02/2018 Rm JOSHUAROMERO Epps [id number] Insurance:MEDICARE [facility]ARDDOB: [facility] [id number] [place] [address]Shj: Number: Repository [id number] (HP) Date:2018-04-02 04/02/2018 Secondary NOT GIVENUNK [place] Insurance:SELF PAY [facility] Number: Effective Repository Date:2018-04-02 12/29/2017 Rm Cervantes Primary PAMELA Epps [id number] Insurance:MEDICARE [facility] [id number] Hospital [place] [address]Efk: Number: Repository [id number] (HP) Date:2017-12-29 12/29/2017 Secondary NOT GIVENUNK [place] Insurance:SELF PAY [facility] Number: Effective Repository Date:2017-12-29 12/29/2017 Rm Cervantes Primary PAMELACorey Epps [id number] Insurance:MEDICARE [facility]DOB[facility] [id number] [place] [address]Gto: Number: Repository [id number] (HP) Date:2017-12-29 12/29/2017 Secondary NOT GIVENUNK [place] Insurance:SELF PAY [facility] Number: Effective Repository Date:2017-12-29 12/29/2017 Rm Cervantes Primary PAMELA [place] [id number] Insurance:MEDICARE [facility]DOB: [facility] [id number] Hospital [place] [address]Epy: Number: Repository [id number] (HP) Date:2017-12-29 12/29/2017 Secondary NOT GIVENUNK [place] Insurance:SELF PAY [facility] Number: Effective Repository Date:2017-12-29 12/29/2017 Rm Cervantes Primary PAMELA Basilio [place] [id number] Insurance:MEDICARE [place]ICHARDDOB: [facility] [id number] Hospital [place] [address]Kdm: Number: Repository [id number] (HP) Date:2017-12-29 12/29/2017 Secondary NOT GIVENUNK [place] Insurance:SELF PAY [facility] Number: Effective Repository Date:2017-12-29 12/29/2017 Rm Cervantes Primary PAMELA Epps [id number] Insurance:MEDICARE RICHARDDOB: [facility] [id number] Health Center [address]Pvj: Number: Repository [id number] (HP) Date:2017-12-29 12/29/2017 Secondary NOT GIVENUNK [place] Insurance:SELF PAY [facility] Number: Effective Repository Date:2017-12-29 12/28/2017 Rm Cervantes Primary PAMELA Epps [id number] Insurance:MEDICARE R[facility]DOB: [facility] [id number] Health Center [address]Sms: Number: Repository [id number] (HP) Date:2017-12-28 12/28/2017 Secondary [place]UNK [place] Insurance:SELF PAY [facility] Number: Effective Repository Date:2017-12-28 12/07/2017 Rm Cervantes Primary PAMELA Epps [id number] Insurance:MEDICARE [facility]ARDDOB: [facility] [id number] Health Center [address]Fui: Number: Repository [id number] (HP) Date:2017-12-07 12/07/2017 Secondary [place]UNK [place] Insurance:SELF PAY [facility] Number: Effective Repository Date:2017-12-07 07/11/2017 Rm Cervantes Primary PAMELA Epps [id number] Insurance:MEDICARE RICHARDDOB: [facility], [facility] [id number] Health Center [address]Quw: Number: Repository [id number] (HP) Date:2017-07-11 07/11/2017 Secondary [place]UNK [place] Insurance:SELF PAY [facility] Number: Effective Repository Date:2017-07-11
== END 2018-06-28 21:45 | disposition home or self-care (01) | DRG 948 ==
PROVIDERS: Admitting Provider Family Medicine Geriatric Medicine; Family Provider Family Medicine; PCP Family Medicine; Visit Provider Family Medicine Geriatric Medicine
DX: R53.81 Other malaise (principal); E27.40 Unspecified adrenocortical insufficiency; K64.2 Third degree hemorrhoids; K55.20 Angiodysplasia of colon without hemorrhage; E78.5 Hyperlipidemia, unspecified; E03.9 Hypothyroidism, unspecified; H40.9 Unspecified glaucoma; I10 Essential (primary) hypertension; K75.4 Autoimmune hepatitis; M32.9 Systemic lupus erythematosus, unspecified; E87.6 Hypokalemia; L89.151 Pressure ulcer of sacral region, stage 1
CPT/HCPCS: 36415; 80048; 85025; 97110; 97116; 97150; 97162; 97166; 97530; 97535; 97802

== ENCOUNTER → 2018-07-04 11:15 | Outpatient (CLI) | payer MEDICARE, SELFPAY ==
[2018-06-15 14:54] VITALS: BMI 20.5
[2018-07-04 12:22] LABS: Absolute Lymphocyte Count 2.17 X10^3/ul (0.83-4.51); Basophil# 0.02 X10^3/uL; Basophil% 0.2 % (0-1); Eosinophil# 0.09 X10^3/uL; Hematocrit 36.9 % (37-47); Hemoglobin 11.4 g/dl (12.0-15.0); Lymphocyte # 2.17 X10^3/ul (4.0); Lymphocyte % 23.2 % (19-41); Mean Corp Hgb Conc 30.9 g/gl (32-36); Mean Corpuscular Hgb 30.5 pg (27.0-32.0); Mean Corpuscular Volume 98.7 fL (81-99); Mean Platelet Vol. 9.7 fl (6.2-12.0); Monocyte# 1.03 X10^3/uL; Neutrophil # 6.02 X10^3/uL (2.7-7.7); Neutrophil % 64.2 % (47-70); Platelet Count 173 K/mm3 (150-450); RBC Distribution Width CV 17.1 % (11.6-14.6); RBC Distribution Width SD 61.1 fl (35.1-43.9); Red Blood Count 3.74 M/mm3 (4.2-5.4); White Blood Count 9.4 K/mm3 (4.4-11.0)
[2018-07-04 12:27] LABS: POSITIVE COUNT NO; POSITIVE DIFFERENTIAL NO; POSITIVE MORPHOLOGY NO
[2018-07-04 13:09] LABS: BUN 12 mg/dL (7-18); Creatinine, Serum 0.52 mg/dL (0.55-1.02); Glucose 90 mg/dL (74-106)
[2018-07-04 13:10] LABS: ALB/GLOB Ratio 0.7 RATIO (0.9-2.4); AST(SGOT) 21 U/L (15-37); Alanine Aminotransfer ALT/SGPT 32 U/L (13-56); Albumin, Serum 3.1 g/dL (3.2-5.0); Alkaline Phosphatase 74 U/L (45-117); Anion Gap 8 (5-15); BUN/Creat Ratio 23.3 RATIO (10-20); Calcium,Total 8.4 mg/dL (8.5-10.1); Chloride 101 mmol/L (98-107); EST Glomerular Filtration Rate 122 mL/min (>60); Est Glom Filt Rate - Afr Amer 148 mL/min (>60); Globulin 4.5 g/dL (2.2-4.2); Magnesium 2.2 mg/dL (1.6-2.6); Potassium 3.2 mmol/L (3.5-5.1); Protein, Total 7.6 g/dL (6.4-8.2); Sodium Level 138 mmol/L (136-145); Thyroid Stim Hormone (TSH) 2.23 uIU/mL (0.358-3.74)
== END ==
PROVIDERS: Family Provider Family Medicine; PCP Family Medicine; Visit Provider Family Medicine
DX: E27.49 Other adrenocortical insufficiency (principal); K57.90 Diverticulosis of intestine, part unspecified, without perforation or abscess without bleeding
CPT/HCPCS: 36415; 80053; 83735; 84443; 85025

== ENCOUNTER → 2018-08-02 13:28 | Outpatient (CLI) | payer MEDICARE, SELFPAY ==
[2018-06-15 14:54] VITALS: BMI 20.5
[2018-08-02 14:30] LABS: Absolute Lymphocyte Count 2.01 X10^3/ul (0.83-4.51); Absolute Neutrophil Count 4.2 X10^3/uL (2.0-7.7); Basophil# 0.02 X10^3/uL; Basophil% 0.3 % (0-1); Eosinophil# 0.06 X10^3/uL; Eosinophils% 0.8 % (0-5); Hematocrit 43.2 % (37-47); Hemoglobin 13.8 g/dl (12.0-15.0); Lymphocyte # 2.01 X10^3/ul (4.0); Lymphocyte % 27.8 % (19-41); Mean Corp Hgb Conc 31.9 g/gl (32-36); Mean Corpuscular Hgb 30.9 pg (27.0-32.0); Mean Corpuscular Volume 96.9 fL (81-99); Mean Platelet Vol. 10.2 fl (6.2-12.0); Monocyte# 0.88 X10^3/uL; Monocyte% 12.2 % (0-10); Neutrophil # 4.18 X10^3/uL (2.7-7.7); Neutrophil % 57.9 % (47-70); Platelet Count 174 K/mm3 (150-450); RBC Distribution Width CV 15.5 % (11.6-14.6); RBC Distribution Width SD 53.8 fl (35.1-43.9); Red Blood Count 4.46 M/mm3 (4.2-5.4); White Blood Count 7.2 K/mm3 (4.4-11.0)
[2018-08-02 14:32] LABS: POSITIVE COUNT NO; POSITIVE DIFFERENTIAL NO; POSITIVE MORPHOLOGY NO
[2018-08-02 15:09] LABS: AST(SGOT) 20 U/L (15-37); Alanine Aminotransfer ALT/SGPT 32 U/L (13-56); Albumin, Serum 3.3 g/dL (3.2-5.0); Alkaline Phosphatase 74 U/L (45-117); Bilirubin, Direct 0.16 mg/dL (0.00-0.30); GGTP 52 U/L (5-55); Globulin 4.5 g/dL (2.2-4.2); Protein, Total 7.8 g/dL (6.4-8.2)
--- OUTSIDE RECORDS SUMMARY | 2018-10-07 03:25 | XMS RPT_ITS ---
:1940 Author Organization OHIP Support Name Relationship Address Phone MICHELLE UMANAICE Unavailable [address] + [place] [address] R Unavailable Unavailable Unavailable RM ESPINOZA Unavailable [address] + [place] [address] AMSTASHISH, EMBER Unavailable [address] + [place] [address] R Unavailable Unavailable Unavailable RM ESPINOZA Unavailable [address] + [place] [address] AMSTUTZ, EMBER Unavailable [address] + [place] [address] R Unavailable Unavailable Unavailable RM ESPINOZA Unavailable [address] + [place] [address] AMSTUTZ, EMBER Unavailable [address] + [place] [address] RM ESPINOZA Unavailable [address] + [place] [address] PAMELA ESPINOZA Unavailable Unavailable Unavailable AMSTASHISH, EMBER Unavailable [address] + [place] [address] R Unavailable Unavailable Unavailable RM ESPINOZA Unavailable [address] + [place] [address] AMSTUTZ, EMBER Unavailable [address] + [place] [address] R Unavailable Unavailable Unavailable RM ESPINOZA Unavailable [address] + [place] [address] AMSTUTZ, EMBER Unavailable [address] + [place] [address] R Unavailable Unavailable Unavailable RM ESPINOZA Unavailable [address] + [place] [address] AMSTUTZ, EMBER Unavailable [address] + [place] [address] R Unavailable Unavailable Unavailable RM ESPINOZA Unavailable [address] + [place] [address] AMSTUTZ, EMBER Unavailable [address] + [place] [address] R Unavailable Unavailable Unavailable RM ESPINOZA Unavailable [address] + [place] [address] AMSTUTZ, EMBER Unavailable [address] + [place] [address] R Unavailable Unavailable Unavailable RM ESPINOZA Unavailable [address] + [place] [address] AMSTUTZ, EMBER Unavailable [address] + [place] [address] R Unavailable Unavailable Unavailable RM ESPINOZA Unavailable [address] + [place] [address] AMSTUTZ, EMBER Unavailable [address] + [place] [address] R Unavailable Unavailable Unavailable RM ESPINOZA Unavailable [address] + [place] [address] AMSTUTZ, EMBER Unavailable [address] + [place] [address] R Unavailable Unavailable Unavailable RM ESPINOZA Unavailable [address] + [place] [address] AMSTUTZ, EMBER Unavailable [address] + [place] [address] R Unavailable Unavailable Unavailable RM ESPINOZA Unavailable [address] + [place] [address] AMSTUTZ, EMBER Unavailable [address] + [place] [address] R Unavailable Unavailable Unavailable RM ESPINOZA Unavailable [address] + [place] [address] AMSTUTZ, EMBER Unavailable [address] + [place] [address] R Unavailable Unavailable Unavailable RM ESPINOZA Unavailable [address] + [place] [address] AMSTUTZ, EMBER Unavailable [address] + [place] [address] R Unavailable Unavailable Unavailable ERIK RM Unavailable [address] + [place] [address] AMSTUTZ, EMBER Unavailable [address] + [place] [address] R Unavailable Unavailable Unavailable RM ESPINOZA Unavailable [address] + [place] [address] AMSTUTZ, EMBER Unavailable [address] + [place] [address] R Unavailable Unavailable Unavailable RM ESPINOZA Unavailable [address] + [place] [address] AMSTUTZ, EMBER Unavailable [address] + [place] [address] R Unavailable Unavailable Unavailable RM ESPINOZA Unavailable [address] + [place] [address] Care Team Providers Name Role Phone ANA CALHOUN Admitting Unavailable LIBERTY BOWMAN Referring Unavailable [place], [facility] Primary Care Unavailable CONSULT, GASTROENTEROLOGY Consulting Unavailable PERICO ROCHA Attending Unavailable ADAL SALAS Attending Unavailable MARITZA, ADAL Referring Unavailable Cardenas, Ashvin Primary Care Unavailable MARITZAADAL Attending Unavailable MARITZA, ADAL Referring Unavailable Cardenas, Ashvin Primary Care Unavailable Cardenas, Ashvin Primary Care Unavailable Rubén Khalil Attending Unavailable Rubén Khalil Referring Unavailable Cardenas, Ashvin Primary Care Unavailable Gbaruk, Kombian Admitting Unavailable Jay Sidney Consulting Unavailable Salomón Damon Attending Unavailable Adriana Daniels Admitting Unavailable Cardenas, Ashvin Primary Care Unavailable Cebul, Sidney Consulting Unavailable Cebul, Sidney Referring Unavailable Donovan Bowmanic Attending Unavailable White, Adriana Admitting Unavailable Cebul, Sidney Referring Unavailable Cardenas, Ashvin Primary Care Unavailable Cebul, Sidney Consulting Unavailable Adriana Daniels Attending Unavailable Adriana Daniels Consulting Unavailable Zainabul Sidney Attending Unavailable Jopperi, Ashvin Referring Unavailable Lalo, Barak Chi Admitting Unavailable Lalo, Barak Chi Attending Unavailable Cardenas, Ashvin Primary Care Unavailable [place]bar[place], Kombian Admitting Unavailable [place], Kombian Attending Unavailable Cardenas, Ashvin Primary Care Unavailable [place], Kombian Consulting Unavailable Cardenas, Ashvin Attending Unavailable Cardenas, Ashvin Primary Care Unavailable [place]bar[place], Kombian Admitting Unavailable [place], Kombian Attending Unavailable Cardenas, Ashvin Primary Care Unavailable [place], Kombian Consulting Unavailable MARITZA, ADAL Attending Unavailable MARITZA, ADAL Referring Unavailable Cardenas, Ashvin Primary Care Unavailable [place]bar[place], Kombian Admitting Unavailable Salomón Damon Attending Unavailable Cardenas, Ashvin Primary Care Unavailable Sidney Thompson Consulting Unavailable Gregoryky, Salomón Consulting Unavailable [place], Kombian Admitting Unavailable Dao Sofia Attending Unavailable Cardenas, Ashvin Primary Care Unavailable Dao Sofia Consulting Unavailable Sagar George Attending Unavailable Cebul, Sidney Referring Unavailable White, Adriana Admitting Unavailable Jomahin, Ashvin Attending Unavailable Cebul, Sidney Referring Unavailable Cardenas, Ashvin Primary Care Unavailable Cebul, Sidney Consulting Unavailable Jopperi, Ashvin Consulting Unavailable Zainabusigrid, Sidney Attending Unavailable Cardenas, Ashvin Referring Unavailable Cardenas, Ashvin Primary Care Unavailable Brandy Dodd Attending Unavailable White, Adriana Admitting Unavailable MARITZA, ADAL Attending Unavailable MARITZA, ADAL Referring Unavailable Cardenas, Ashvin Primary Care Unavailable PROBLEMS PROBLEMS DATE TYPE CONDITION / CODE ATTENDING STATUS SOURCE Unknown 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 / Hospital E27.49(ICD-10) Repository Unknown K57.90 - CardenasAshvin Active [place] 8 Diverticulosis of Community intestine, [facility] Hospital unspecified, without Repository perforation or abscess without bleeding / K57.90(ICD-10) Unknown R53.81 - Other malaise Lalo, Barak Chi Active [place] / R53.81(ICD-10) Community Hospital Repository Admitting Perforation of AST[place], [place] [address] diagnosis intestine [facility] (nontraumatic) / [facility] K63.1(ICD-10) Center Repository Admitting Accidental puncture ASTERIOU, [place] [address] diagnosis and laceration of a [facility] digestive system organ [facility] Medical or structure during a Center digestive system Repository procedure / K91.71(ICD-10) Admitting Acute posthemorrhagic ASTERIOU, Active [place] [address] diagnosis anemia / D62(ICD-10) [facility] Repository Admitting Hemorrhage of anus and ASTERIOU, Active [place] [address] diagnosis rectum / K62.5(ICD-10) [facility] Repository Admitting Unspecified ASTERIOU, Active [place] [address] diagnosis adrenocortical [facility] insufficiency / [facility] E27.40(ICD-10) Center Repository Admitting Cardiac murmur, ASTERIOU, Active [place] [address] diagnosis unspecified / [facility] R01.1(ICD-10) [facility] Repository Unknown R94.31 - Abnormal Doris, Sagar Active [place] [facility] electrocardiogram Community [ECG] [EKG] / Hospital R94.31(ICD-10) Repository Unknown I10 - Essential Doris, Sagar Active [place] (primary) hypertension Community / I10(ICD-10) Hospital Repository Unknown K92.2 - CiprianoDonovan piperic Active [place] 8 Gastrointestinal Community hemorrhage, Hospital unspecified / Repository K92.2(ICD-10) Unknown K62.5 - Hemorrhage of Sidney Khan Active [place] [facility] anus and rectum / Community K62.5(ICD-10) Hospital Repository Unknown K64.2 - Third degree CeSidney ridley Active [place] [facility] hemorrhoids / Community K64.2(ICD-10) Hospital Repository Unknown 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 [place] Angiodysplasia of Community colon with hemorrhage Hospital / K55.21(ICD-10) Repository Unknown K57.30 - CeSidney ridley Active [place] [facility] Diverticulosis of Community large intestine Hospital without perforation or Repository abscess without bleeding / K57.30(ICD-10) Unknown 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6-14.6 % High RDW CV 15.5 LAB L100.1820 35.1-43.9 fl High RDW SD 53.8 LAB L100.1900 150-450 K/mm3 Normal PLT 174 LAB L100.2000 6.2-12.0 fl Normal MPV 10.2 LAB L100.2100 47-70 % Normal NEUT% 57.9 LAB L100.2200 19-41 % Normal LY% 27.8 LAB L100.2300 0-10 % High MONO% 12.2 LAB L100.2400 0-5 % Normal EO% 0.8 LAB L100.2500 0-1 % Normal BASO% 0.3 LAB L100.2550 0.0-0.9 % High IM GRAN % 1.000 Result Comment: IG% - Immature Granulocytes (promyelocytes, myelocytes and metamyelocytes) > 1% indicates that a LEFT SHIFT is Present. LAB L100.2620 2.0-7.7 X10 3/uL Normal Absolute Neut 4.2 LAB L100.2720 0.83-4.51 X10 3/ul Normal Absolute Lymph 2.01 Performed By: #### L100.0100 #### [place] [facility] [place] [facility] [address] [place], [place], [address] LIVER PROFILE Collected: 08/02/2018 Status: F Source: [place] 1:36 PM [facility] REPOSITORY TYPE CODE TESTS RESULT OUT OF RANGE REFERENCE UNITS LAB L501.1500 6.4-8.2 g/dL Normal T PROT 7.8 LAB L501.1800 3.2-5.0 g/dL Normal ALB 3.3 LAB L501.1950 2.2-4.2 g/dL High GLOB 4.5 LAB L501.4100 15-37 U/L Normal AST 20 LAB L501.4305 45-117 U/L Normal ALK P 74 LAB L501.4405 13-56 U/L Normal ALT 32 LAB L501.4600 0.20-1.00 mg/dL Normal T BILI 0.50 LAB L501.4700 0.00-0.30 mg/dL Normal D BILI 0.16 Performed By: #### L500.3400, L501.5100 #### [facility] [address] [place], [address] GGTP Collected: 08/02/2018 Status: F Source: [place] 1:36 PM [facility] REPOSITORY TYPE CODE TESTS RESULT OUT OF RANGE REFERENCE UNITS LAB L501.5100 5-55 U/L Normal GGTP 52 Performed By: #### L500.3400, L501.5100 #### [facility] [address] [place], [address] CBC W/DIFF, AUTOMATED Collected: 07/04/2018 Status: F Source: [place] 11:17 AM [facility] REPOSITORY TYPE CODE TESTS RESULT OUT OF RANGE REFERENCE UNITS LAB L100.1000 4.4-11.0 K/mm3 Normal WBC 9.4 LAB L100.1200 4.2-5.4 M/mm3 Low RBC 3.74 LAB L100.1300 12.0-15.0 g/dl Low HGB 11.4 LAB L100.1400 37-47 % Low HCT 36.9 LAB L100.1500 81-99 fL Normal MCV 98.7 LAB L100.1600 27.0-32.0 pg Normal MCH 30.5 LAB L100.1700 32-36 g/gl Low MCHC 30.9 LAB L100.1810 11.6-14.6 % High RDW CV 17.1 LAB L100.1820 35.1-43.9 fl High RDW SD 61.1 LAB L100.1900 150-450 K/mm3 Normal PLT 173 LAB L100.2000 6.2-12.0 fl Normal MPV 9.7 LAB L100.2100 47-70 % Normal NEUT% 64.2 LAB L100.2200 19-41 % Normal LY% 23.2 LAB L100.2300 0-10 % High MONO% 11.0 LAB L100.2400 0-5 % Normal EO% 1.0 LAB L100.2500 0-1 % Normal BASO% 0.2 LAB L100.2550 0.0-0.9 % Normal IM GRAN % 0.400 Result Comment: IG% - Immature Granulocytes (promyelocytes, myelocytes and metamyelocytes) > 1% indicates that a LEFT SHIFT is Present. LAB L100.2620 2.0-7.7 X10 3/uL Normal Absolute Neut 6.0 LAB L100.2720 0.83-4.51 X10 3/ul Normal Absolute Lymph 2.17 Performed By: #### L100.0100, L500.4050, L501.5200, L501.9520 #### [facility] [address] [place], [address] COMPREHENSIVE METABOLIC Collected: 07/04/2018 Status: F Source: [facility] 11:17 AM [facility] REPOSITORY TYPE CODE TESTS RESULT OUT OF RANGE REFERENCE UNITS LAB L501.0100 74-106 mg/dL Normal GLU 90 Result Comment: Please note revised GLUCOSE reference range effective 2017. LAB L501.1000 7-18 mg/dL Normal BUN 12 LAB L501.1100 0.55-1.02 mg/dL Low CREAT,SERUM 0.52 Result Comment: The validity of the calculated GFR AND GFRAA in patients over 70 years has not been determined. Clinical correlation is essential. LAB L501.1110 >60 mL/min Normal EST GFR 122 Result Comment: Non- GFR Calc LAB L501.1115 >60 mL/min Normal EST GFR - AA 148 Result Comment: GFR Calc LAB L501.1300 10-20 RATIO High BUN/CRE 23.3 LAB L501.1500 6.4-8.2 g/dL T Normal PROT 7.6 LAB L501.1800 3.2-5.0 g/dL Low ALB 3.1 LAB L501.1950 2.2-4.2 g/dL High GLOB 4.5 LAB L501.2000 0.9-2.4 RATIO Low A/G 0.7 LAB L501.2200 8.5-10.1 mg/dL Low CA 8.4 LAB L501.4100 15-37 U/L Normal AST 21 LAB L501.4305 45-117 U/L Normal ALK P 74 LAB L501.4405 13-56 U/L Normal ALT 32 LAB L501.4600 0.20-1.00 mg/dL T Normal BILI 0.60 LAB L501.5300 136-145 mmol/L NA Normal 138 LAB L501.5600 3.5-5.1 mmol/L Low K 3.2 LAB L501.5900 98-107 mmol/L CL Normal 101 LAB L501.6100 21.0-32.0 mmol/L Normal CO2 29.0 LAB L501.6200 5-15 Normal GAP 8 Performed By: #### L100.0100, L500.4050, L501.5200, L501.9520 #### [facility] [address], [place], [id number] MAGNESIUM Collected: 07/04/2018 Status: F Source: [place] 11:17 AM [facility] REPOSITORY TYPE CODE TESTS RESULT OUT OF RANGE REFERENCE UNITS LAB L501.5200 1.6-2.6 mg/dL Normal MG 2.2 Performed By: #### L100.0100, L500.4050, L501.5200, L501.9520 #### [facility] [address] [place], [place], [address] THYROID STIM HORMONE Collected: 07/04/2018 Status: F Source: [place] (TSH) 11:17 AM [facility] REPOSITORY TYPE CODE TESTS RESULT OUT OF RANGE REFERENCE UNITS LAB L501.9520 0.358-3.74 uIU/mL Normal TSH 2.23 Performed By: #### L100.0100, L500.4050, L501.5200, L501.9520 #### [facility] [address] [place], [address] CBC W/DIFF, AUTOMATED Collected: 06/23/2018 Status: F Source: [place] 5:11 AM [facility] REPOSITORY TYPE CODE TESTS RESULT OUT OF [...] Lymph 2.22 Performed By: #### L100.0100 #### [facility] [address] [place], [address] BASIC METABOLIC Collected: 06/23/2018 Status: F Source: [place] PROFILE (BMP) 5:11 AM [facility] REPOSITORY TYPE CODE TESTS RESULT OUT OF [...] GAP 10 Performed By: #### L500.2500 #### [facility] [address] [place], [address] DISCHARGE SUMMARY Observed: 06/21/2018 Status: F Source: [place] 2:50 PM [facility] REPOSITORY [facility] Medical Records Department [address] [place] [address] Discharge Summary 06/21/18 1448 MR#: [id number] Acct: [id number] Name: PAMELA ESPINOZA Rep #: [id number] : 1940 78 From: Barak May MD PCP: Ashvin Cardenas MD Status: ADM IN Y Location: [place] [address]2 Discharge Date and Diagnosis - Problem List [...] to select menu?: Yes Consultations 06/15/18 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 program 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 Routine Comment: stage I to coccyx Operations: [...] DISCHARGE INSTRUCTION Observed: 06/21/2018 Status: F Source: [place] 2:47 PM [facility] REPOSITORY [facility] Medical Records Department [address] [place] [address] Instructions for Home/Discharge Instructions 06/21/18 1446 MR#: [id number] Acct: [id number] Name: PAMELA ESPINOZA Chetna Rep #: [id number] : 1940 78 From: Barak May MD [...] Barak May MD> Date Barak May MD CC: Ashvin Cardenas MD BASIC METABOLIC Collected: 06/19/2018 Status: F Source: [place] PROFILE (BMP) 5:20 AM [facility] REPOSITORY TYPE CODE TESTS RESULT OUT OF [...] GAP 8 Performed By: #### L500.2500 #### [facility] [address] [place], [address] HISTORY AND PHYSICAL Observed: 06/17/2018 Status: F Source: [place] EXAM 8:30 AM [facility] REPOSITORY [facility] Medical Records Department [address] [place] [address] History and Physical 06/15/18 1601 MR#: [id number] Acct: [id number] Name: PAMELA ESPINOZA Rep #: [id number] : 1940 78 From: Barak May MD PCP: Ashvin Cardenas MD Status: ADM IN Location: [place] [address] Problem List (1) Gastrointestinal bleeding, lower Status: [...] with below past medical history with followin05/23/2018 [facility] Emergency Department with bright red blood [...] [Lumigan Opthalmic] 1 drp EACH EYE QHS 12/09/17 Brimonidine 0.15% [Alphagan P 1 drp EACH [...] BL. 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 [place], [place], [id number] BASIC METABOLIC Collected: 06/16/2018 Status: F Source: [place] PROFILE (BMP) 6:50 AM [facility] REPOSITORY TYPE CODE TESTS RESULT OUT OF [...] GAP 10 Performed By: #### L500.2500 #### [facility] [address] [facility] [address]. [place], [place], [id number] HEMOGRAM (CBC AND Collected: 06/15/2018 Status: F Source: [facility]) 3:00 AM [facility] REPOSITORY TYPE CODE TESTS RESULT OUT OF [...] 0.0 Performed By: #### HEMCHELITA, HELDER, KELSEY, JULIA #### [facility] [address] [place] [address] CHEM 7 Collected: 06/15/2018 Status: F Source: [facility] 3:00 AM [facility] REPOSITORY TYPE CODE TESTS RESULT OUT OF [...] GFR >60 mL/min/1.73 sqM Est GFR,non >60 [place] [facility] GFRA >60 mL/min/1.73 sqM Est GFR, >60 Performed By: #### HEMDENNYC, VINICIOMRylan, KELSEY, JULIA #### [facility] [address] [address] MAGNESIUM Collected: 06/15/2018 Status: F Source: [facility] 3:00 AM [facility] REPOSITORY TYPE CODE TESTS RESULT OUT OF REFERENCE UNITS RANGE LAB MG 1.6-2.6 mg/dL Magnesium 1.8 Performed By: #### HELDER ARANDA, MGMarcelino, PTPTT #### [facility] [address] [place] [address] [facility] [address] [place] [address] PT*PTT Collected: 06/15/2018 Status: F Source: [facility] 3:00 AM [facility] REPOSITORY TYPE CODE TESTS RESULT OUT OF RANGE REFERENCE UNITS LAB PT 11.9-14.2 sec PT 14.1 LAB INR 0.9-1.1 INR 1.1 LAB PTT 24.0-34.3 sec High PTT 42.6 Performed By: #### MANOJ, HELDER, MGMarcelino, PTPTT #### [facility] [id number] [place] [address] [address] HEMOGRAM (CBC AND Collected: 06/14/2018 Status: F Source: [facility] [place]) 3:22 AM [facility] REPOSITORY TYPE CODE TESTS RESULT OUT OF [...] RBC 0.0 Performed By: #### HEMCHELITA, HELDER, MGO, PTPTT #### [facility] [address] [place] [address] [place] [address] CHEM 7 Collected: 06/14/2018 Status: F Source: [facility] 3:22 AM [facility] REPOSITORY TYPE CODE TESTS RESULT OUT OF [...] GFR >60 mL/min/1.73 sqM Est GFR,non >60 [place] [facility] GFRA >60 mL/min/1.73 sqM Est GFR, >60 Performed By: #### HEMOGC, CHM7, MGO, PTPTT #### [facility] [address] [place] [address] MAGNESIUM Collected: 06/14/2018 Status: F Source: [facility] 3:22 AM [facility] REPOSITORY TYPE CODE TESTS RESULT OUT OF REFERENCE UNITS RANGE LAB MG 1.6-2.6 mg/dL Magnesium 1.8 Performed By: #### HEMOGC, CHM7, MGO, PTPTT #### [facility] [address] [place] [address] [place] [address] PT*PTT Collected: 06/14/2018 Status: F Source: [facility] 3:22 AM [facility] REPOSITORY TYPE CODE TESTS RESULT OUT OF RANGE REFERENCE UNITS LAB PT 11.9-14.2 sec High PT 14.5 LAB INR 0.9-1.1 INR 1.1 LAB PTT 24.0-34.3 sec High PTT 34.9 Performed By: #### HEMOGC, CHM7, MGO, PTPTT #### [facility] [address] [place] [address] [facility] [address] [place] [address] HEMOGRAM (CBC AND Collected: 06/13/2018 Status: F Source: [facility] [place]) 3:12 AM [facility] REPOSITORY TYPE CODE TESTS RESULT OUT OF [...] #### HEMOGC, CHM7, MGO, PTPTT #### [facility] [address] [place] [address] [place] [address] CHEM 7 Collected: 06/13/2018 Status: F Source: [facility] 3:12 AM [facility] REPOSITORY TYPE CODE TESTS RESULT OUT OF [...] GFR >60 mL/min/1.73 sqM Est GFR,non >60 [place] [facility] GFRA >60 mL/min/1.73 sqM Est GFR, >60 Performed By: #### HEMOGC, CHM7, MGO, PTPTT #### [facility] [address] [place] [address] [facility] [address] [place] [address] MAGNESIUM Collected: 06/13/2018 Status: F Source: [facility] 3:12 AM [facility] REPOSITORY TYPE CODE TESTS RESULT OUT OF REFERENCE UNITS RANGE LAB MG 1.6-2.6 mg/dL Magnesium 2.1 Performed By: #### HEMOGC, CHM7, MGO, PTPTT #### [facility] [address] [place] [address] [facility] [address] [place] [address] PT*PTT Collected: 06/13/2018 Status: F Source: [facility] 3:12 AM [facility] REPOSITORY TYPE CODE TESTS RESULT OUT OF RANGE REFERENCE UNITS LAB PT 11.9-14.2 sec High PT 15.5 LAB INR 0.9-1.1 High INR 1.2 LAB PTT 24.0-34.3 sec High PTT 38.7 Performed By: #### HEMOGC, CHM7, MGO, PTPTT #### [facility] [address] [place] [id number] [place] [address] [place] [address] HEMOGRAM (CBC AND Collected: 06/12/2018 Status: F Source: [facility] [place]) 3:23 AM [facility] REPOSITORY TYPE CODE TESTS RESULT OUT OF [...] RBC 0.0 Performed By: #### HELDER ARANDA, KELSEY, JULIA #### [facility] [address] [place] [address] [place] [address] CHEM 7 Collected: 06/12/2018 Status: F Source: [facility] 3:23 AM [facility] [facility] REPOSITORY TYPE CODE TESTS RESULT OUT OF [...] GFR >60 mL/min/1.73 sqM Est GFR,non >60 [place] [facility] GFRA >60 mL/min/1.73 sqM Est GFR, >60 Performed By: #### MANOJ, HELDER, KELSEY, JULIA #### [facility] [address] [place] [address] [place] [address] MAGNESIUM Collected: 06/12/2018 Status: F Source: [facility] 3:23 AM [facility] REPOSITORY TYPE CODE TESTS RESULT OUT OF REFERENCE UNITS RANGE LAB MG 1.6-2.6 mg/dL Magnesium 1.6 Performed By: #### MANOJ, HELDER, MGMarcelino, PTPTT #### [facility] [address] [place] [address] [place] [address] PT*PTT Collected: 06/12/2018 Status: F Source: [facility] 3:23 AM [facility] REPOSITORY TYPE CODE TESTS RESULT OUT OF RANGE REFERENCE UNITS LAB PT 11.9-14.2 sec High PT 16.1 LAB INR 0.9-1.1 High INR 1.3 LAB PTT 24.0-34.3 sec High PTT 39.8 Performed By: #### HEMCHELITA, HELDER, KELSEY, PTPTT #### [facility] [address] [place] [address] [facility] [address] [place] [address] HEMOGRAM (CBC AND Collected: 06/11/2018 Status: F Source: [facility]) 3:26 AM [facility] REPOSITORY TYPE CODE TESTS RESULT OUT OF [...] 0.0 Performed By: #### HEMCHELITA, HELDER, KELSEY, PTPTT #### [facility] [address] [place] [address] 18367 [facility] [address] [place] [address] CHEM 7 Collected: 06/11/2018 Status: F Source: [facility] 3:26 AM [facility] REPOSITORY TYPE CODE TESTS RESULT OUT OF [...] GFR >60 mL/min/1.73 sqM Est GFR,non >60 [place] [facility] GFRA >60 mL/min/1.73 sqM Est GFR, >60 Performed By: #### HEMOGC, CHM7, MGO, PTPTT #### [facility] [address] [place] [address] [place] [address] MAGNESIUM Collected: 06/11/2018 Status: F Source: [facility] 3:26 AM [facility] REPOSITORY TYPE CODE TESTS RESULT OUT OF REFERENCE UNITS RANGE LAB MG 1.6-2.6 mg/dL Magnesium 1.6 Performed By: #### HEMOGC, CHM7, MGO, PTPTT #### [facility] [address] [place] [address] [place] [address] PT*PTT Collected: 06/11/2018 Status: F Source: [facility] 3:26 AM [facility] REPOSITORY TYPE CODE TESTS RESULT OUT OF RANGE REFERENCE UNITS LAB PT 11.9-14.2 sec High PT 15.9 LAB INR 0.9-1.1 High INR 1.3 LAB PTT 24.0-34.3 sec High PTT 38.6 Performed By: #### HEMOGC, CHM7, MGO, PTPTT #### [facility] [address] [place] [address] [address] HEMOGRAM (CBC AND Collected: 06/10/2018 Status: F Source: [facility] PL[facility]) 2:44 AM [facility] REPOSITORY TYPE CODE TESTS RESULT OUT OF [...] NUCLEATED RBC 0.0 Performed By: #### HEMCHELITA, CHM7, MGO, PTPTT #### [facility] [address] [address] CHEM 7 Collected: 06/10/2018 Status: F Source: [facility] 2:44 AM [facility] REPOSITORY TYPE CODE TESTS RESULT OUT OF [...] M Est GFR, >60 Performed By: #### HEMDENNYC, VINICIOM7, MGO, PTPTT #### [address] [address] MAGNESIUM Collected: 06/10/2018 Status: F Source: [facility] 2:44 AM [facility] REPOSITORY TYPE CODE TESTS RESULT OUT OF REFERENCE UNITS RANGE LAB MG 1.6-2.6 mg/dL Magnesium 1.8 Performed By: #### HEMOGC, CHM7, MGO, PTPTT #### [facility] [address] [place] [address] [facility] [address] [place] [address] PT*PTT Collected: 06/10/2018 Status: F Source: [facility] 2:44 AM [facility] REPOSITORY TYPE CODE TESTS RESULT OUT OF RANGE REFERENCE UNITS LAB PT 11.9-14.2 sec High PT 16.8 LAB INR 0.9-1.1 High INR 1.4 LAB PTT 24.0-34.3 sec High PTT 35.2 Performed By: #### HEMOGC, CHM7, MGO, PTPTT #### [facility] [address] [place] [id number] [place] [address] [address] [place] [address] ACTH Collected: 06/09/2018 Status: F Source: [facility] 3:18 PM [facility] REPOSITORY TYPE CODE TESTS RESULT OUT OF RANGE REFERENCE UNITS LAB ACTH 9.0-50.0 pg/mL Low ACTH <5.0 Performed By: #### ACTH #### [facility] [address] [place] [id number] [place] [address] [address] [place] [address] CORTISOL Collected: 06/09/2018 Status: F Source: [facility] 6:14 AM [facility] REPOSITORY TYPE CODE TESTS RESULT OUT OF REFERENCE UNITS RANGE LAB KARLA 3.09-22.40 mcg/dL Cortisol 10.81 Performed By: #### KARLA #### [facility] [address] [place] [address] [facility] [address] [place] [address] HEMOGRAM (CBC AND Collected: 06/09/2018 Status: F Source: [facility]) 4:02 AM [facility] REPOSITORY TYPE CODE TESTS RESULT OUT OF [...] CHM7, MGO, PTPTT, KARLA, IPB #### [facility] [address] [address] CHEM 7 Collected: 06/09/2018 Status: F Source: [facility] 4:02 [facility] REPOSITORY TYPE CODE TESTS RESULT [...] GFR >60 mL/min/1.73 sqM Est GFR,non >60 [place] [facility] GFRA >60 mL/min/1.73 sqM Est GFR, >60 Performed By: #### HEMOGC, CHM7, MGO, PTPTT, KARLA, IPB #### [facility] [place] [address] MAGNESIUM Collected: 06/09/2018 Status: F Source: [facility] 4:02 [facility] REPOSITORY TYPE CODE TESTS RESULT OUT OF REFERENCE UNITS RANGE LAB MG 1.6-2.6 mg/dL Magnesium 1.8 Performed By: #### HEMOGC, CHM7, MGO, PTPTT, KARLA, IPB #### [facility] [address] [place] [id number] [place] [address] [address] [place] [address] PT*PTT Collected: 06/09/2018 Status: F Source: [facility] 4:02 AM [facility] REPOSITORY TYPE CODE TESTS RESULT OUT OF RANGE REFERENCE UNITS LAB PT 11.9-14.2 sec High PT 17.3 LAB INR 0.9-1.1 High INR 1.4 LAB PTT 24.0-34.3 sec High alert PTT 120.8 Performed By: #### HEMOGC, CHM7, MGO, PTPTT, KARLA, IPB #### [facility] [address] [place] [address] [place] [address] CORTISOL Collected: 06/09/2018 Status: F Source: [facility] 4:02 AM [facility] REPOSITORY TYPE CODE TESTS RESULT OUT OF REFERENCE UNITS RANGE LAB KARLA 3.09-22.40 mcg/dL Low Cortisol 1.54 Performed By: #### HEMOGC, CHM7, MGO, PTPTT, KARLA, IPB #### [facility] [address] [place] [address] [place] [address] INORGANIC PHOSPHATE Collected: 06/09/2018 Status: F Source: [facility] 4:02 AM [facility] REPOSITORY TYPE CODE TESTS RESULT OUT OF REFERENCE UNITS RANGE LAB IP 2.2-4.6 mg/dL Inorg Phosphate 3.1 Performed By: #### HEMOGC, CHM7, MGO, PTPTT, KARLA, IPB #### [facility] [address] [place] [id number] [place] [address] [address] [place] [address] HEMOGRAM (CBC AND Collected: 06/08/2018 Status: F Source: [facility] PLATELET) 2:56 AM [facility] REPOSITORY TYPE CODE TESTS RESULT OUT OF [...] MGO, PTPTT, KARLA, TSH, PROCAL #### [facility] [address] [place] [address] [place], [place] [address] CHEM 7 Collected: 06/08/2018 Status: F Source: [facility] 2:56 AM [facility] REPOSITORY TYPE CODE TESTS RESULT OUT OF [...] GFR >60 mL/min/1.73 sqM Est GFR,non >60 [place] [facility] GFRA >60 mL/min/1.73 sqM Est GFR, >60 Performed By: #### HEMOGC, CHM7, MGO, PTPTT, KARLA, TSH, PROCAL #### [facility] [address] [place] [address] [facility] [address] [place] [address] MAGNESIUM Collected: 06/08/2018 Status: F Source: [facility] 2:56 AM [facility] REPOSITORY TYPE CODE TESTS RESULT OUT OF REFERENCE UNITS RANGE LAB MG 1.6-2.6 mg/dL Magnesium 1.8 Performed By: #### HEMOGC, CHM7, MGO, PTPTT, KARLA, TSH, PROCAL #### [facility] [address] [place] [address] [address] [address] PT*PTT Collected: 06/08/2018 Status: F Source: [facility] 2:56 AM [facility] REPOSITORY TYPE CODE TESTS RESULT OUT OF RANGE REFERENCE UNITS LAB PT 11.9-14.2 sec High PT 16.3 LAB INR 0.9-1.1 High INR 1.3 LAB PTT 24.0-34.3 sec High PTT 42.4 Performed By: #### HEMOGC, CHM7, MGO, PTPTT, KARLA, TSH, PROCAL #### [facility] [address] [place] [address] [address] [address] CORTISOL Collected: 06/08/2018 Status: F Source: [facility] 2:56 AM [facility] REPOSITORY TYPE CODE TESTS RESULT OUT OF REFERENCE UNITS RANGE LAB KARLA 3.09-22.40 mcg/dL Low Cortisol 2.16 Performed By: #### HEMOGC, CHM7, MGO, PTPTT, KARLA, TSH, PROCAL #### [facility] [address] [place] [address] [place] [address] TSH, HIGH SENSITIVITY Collected: 06/08/2018 Status: F Source: [facility] 2:56 AM [facility] REPOSITORY TYPE CODE TESTS RESULT OUT OF REFERENCE UNITS RANGE LAB TSH 0.550-4.780 uIU/mL TSH, High Sensitivity 2.305 Performed By: #### HEMOGC, CHM7, MGO, PTPTT, KARLA, TSH, PROCAL #### [facility] [address] [place] [address] [address] [address] PROCALCITONIN Collected: 06/08/2018 Status: F Source: [facility] 2:56 AM [facility] REPOSITORY TYPE CODE TESTS RESULT OUT OF [...] MGO, PTPTT, KARLA, TSH, PROCAL #### [facility] [address] [place] [address] OSMOLALITY, URINE - Collected: 06/07/2018 Status: F Source: [facility] RANDOM 8:40 AM [facility] REPOSITORY TYPE CODE TESTS RESULT OUT OF RANGE REFERENCE UNITS LAB UOSM 300-900 mOsm/kg Low Urine 283 Osmolality, 24 hr Performed By: #### UOSMR, ULYTR #### [facility] [address] [place] [id number] [place] [address] [address] [place] [phone] LYTES (NA,K,CL), URINE Collected: 06/07/2018 Status: F Source: [facility] - RANDOM 8:40 AM [facility] REPOSITORY TYPE CODE TESTS RESULT OUT OF [...] Performed By: #### UOSMR, ULYTR #### [facility] [address] [place] [address] [place] [address] URINALYSIS REFLEX Collected: 06/07/2018 Status: F Source: [facility] CULTURE 8:40 AM [facility] REPOSITORY TYPE CODE TESTS RESULT OUT OF RANGE REFERENCE UNITS LAB PROCESSING LEAD Clear Appearance Urine Clear LAB SPGR 1.001-1.035 Specific [place] urine 1.016 LAB UGL Negative mg/dL Glucose [...] URINE CYSTINE Performed By: #### URIN1 #### [facility] [address] [place] [address] [place] [address] XR CHEST AP PORTABLE Observed: 06/07/2018 Status: F Source: [facility] 8:16 AM [facility] REPOSITORY EXAM: XR CHEST AP PORTABLE, 06/07/2018 [...] basilar atelectasis. Observed: 06/07/2018 Status: F Source: [facility] BLOOD:ROUTINE II 7:37 AM [facility] REPOSITORY SOURCE: BLOOD, PERIPHERAL: Left Hand RESULT: NO GROWTH DAY 5 OF 5 REPORT STATUS: 06/12/2018 FINAL Performed By: #### FAST2 #### [address] [address] Blood Cultures processed at: [facility] Observed: 06/07/2018 Status: F Source: [facility] BLOOD:ROUTINE I 7:30 AM [facility] REPOSITORY SOURCE: BLOOD, PERIPHERAL: Right Hand RESULT: NO GROWTH DAY 5 OF 5 REPORT STATUS: 06/12/2018 FINAL Performed By: #### FAST #### [place] [address] Blood Cultures processed at: [facility] HEMOGRAM (CBC AND Collected: 06/07/2018 Status: F Source: [facility]) 3:31 AM [facility] REPOSITORY TYPE CODE TESTS RESULT OUT OF [...] HEMOGC, CHM7, MGO, PTPTT, OSMO #### [facility] [address] [place] [address] [facility] [address] [place], [place] [address] CHEM 7 Collected: 06/07/2018 Status: F Source: [facility] 3:31 AM [facility] REPOSITORY TYPE CODE TESTS RESULT OUT OF [...] GFR >60 mL/min/1.73 sqM Est GFR,non >60 [place] [facility] GFRA >60 mL/min/1.73 sqM Est GFR, >60 Performed By: #### HEMOGC, CHM7, MGO, PTPTT, OSMO #### [facility] [address] [address] MAGNESIUM Collected: 06/07/2018 Status: F Source: [facility] 3:31 AM [facility] REPOSITORY TYPE CODE TESTS RESULT OUT OF REFERENCE UNITS RANGE LAB MG 1.6-2.6 mg/dL Magnesium 1.8 Performed By: #### HEMOGC, CHM7, MGO, PTPTT, OSMO #### [facility] [address] [address] PT*PTT Collected: 06/07/2018 Status: F Source: [facility] 3:31 AM [facility] REPOSITORY TYPE CODE TESTS RESULT OUT OF RANGE REFERENCE UNITS LAB PT 11.9-14.2 sec High PT 16.1 LAB INR 0.9-1.1 High INR 1.3 LAB PTT 24.0-34.3 sec High PTT 37.4 Performed By: #### HEMOGC, CHM7, MGO, PTPTT, OSMO #### [facility] [address] [place] [address] OSMOLALITY Collected: 06/07/2018 Status: F Source: [facility] 3:31 AM [facility] REPOSITORY TYPE CODE TESTS RESULT OUT OF REFERENCE UNITS RANGE LAB OSMO 278-305 mOsm/kg Low Osmolality 268 Performed By: #### HEMOGC, CHM7, MGO, PTPTT, OSMO #### [facility] [address] [place] [address] [facility] [address] [place], [place] [address] CT ABDOMEN/PELVIS WITH Observed: 06/06/2018 Status: F Source: [facility] 3:34 PM [facility] REPOSITORY EXAM: CT ABDOMEN/PELVIS WITH CONTRAST, 06/06/2018 [...] (CBC AND Collected: 06/06/2018 Status: F Source: [facility] PL[facility]) 3:11 AM [facility] REPOSITORY TYPE CODE TESTS RESULT OUT OF [...] #### HEMOGC, CHM7, MGO, PTPTT #### [facility] [address] [place] [id number] [place] [address] [address] [place] [address] CHEM 7 Collected: 06/06/2018 Status: F Source: [facility] 3:11 AM [facility] REPOSITORY TYPE CODE TESTS RESULT OUT OF [...] GFR >60 mL/min/1.73 sqM Est GFR,non >60 [place] [facility] GFRA >60 mL/min/1.73 sqM Est GFR, >60 Performed By: #### HEMOGC, CHM7, MGO, PTPTT #### [facility] [address] [place] [address] [address] [address] MAGNESIUM Collected: 06/06/2018 Status: F Source: [facility] 3:11 AM [facility] REPOSITORY TYPE CODE TESTS RESULT OUT OF REFERENCE UNITS RANGE LAB MG 1.6-2.6 mg/dL Magnesium 2.0 Performed By: #### HEMOGC, CHM7, MGO, PTPTT #### [facility] [address] [place] [address] [place] [address] PT*PTT Collected: 06/06/2018 Status: F Source: [facility] 3:11 AM [facility] REPOSITORY TYPE CODE TESTS RESULT OUT OF RANGE REFERENCE UNITS LAB PT 11.9-14.2 sec High PT 16.2 LAB INR 0.9-1.1 High INR 1.3 LAB PTT 24.0-34.3 sec High PTT 43.9 Performed By: #### HEMOGC, CHM7, MGO, PTPTT #### [facility] [address] [place] [address] [facility] [address] [place], [place] [address] HEMOGRAM (CBC AND Collected: 06/05/2018 Status: F Source: [facility] PL[facility]LET) 3:15 AM [facility] REPOSITORY TYPE CODE TESTS RESULT OUT OF [...] #### HEMOGC, CHM7, MGO, PTPTT, [place] #### [facility] [address] [place] [address] [facility] [address] [place] [address] CHEM 7 Collected: 06/05/2018 Status: F Source: [facility] 3:15 AM [facility] REPOSITORY TYPE CODE TESTS RESULT OUT OF [...] GFR >60 mL/min/1.73 sqM Est GFR,non >60 [place] [facility] GFRA >60 mL/min/1.73 sqM Est GFR, >60 Performed By: #### HEMOGC, CHM7, MGO, PTPTT, [place] #### [facility] [address] [place] [phone] [place] [address] [address] [place] [address] MAGNESIUM Collected: 06/05/2018 Status: F Source: [facility] 3:15 AM [facility] REPOSITORY TYPE CODE TESTS RESULT OUT OF REFERENCE UNITS RANGE LAB MG 1.6-2.6 mg/dL Magnesium 1.6 Performed By: #### HEMOGC, CHM7, MGO, PTPTT, [place] #### [facility] [address] [place] [address] [place] [address] PT*PTT Collected: 06/05/2018 Status: F Source: [facility] 3:15 AM [facility] REPOSITORY TYPE CODE TESTS RESULT OUT OF RANGE REFERENCE UNITS LAB PT 11.9-14.2 sec High PT 17.5 LAB INR 0.9-1.1 High INR 1.4 LAB PTT 24.0-34.3 sec High PTT 55.7 Performed By: #### HEMOGC, CHM7, MGO, PTPTT, [place] #### [facility] [address] [place] [address] [place] [address] CALCIUM Collected: 06/05/2018 Status: F Source: [facility] 3:15 AM [facility] REPOSITORY TYPE CODE TESTS RESULT OUT OF REFERENCE UNITS RANGE LAB IP 2.2-4.6 mg/dL Inorg Phosphate 2.2 Performed By: #### HEMOGC, CHM7, MGO, PTPTT, [place] #### [facility] [address] [place] [address] [place] [address] XR ABDOMEN 1 VIEW Observed: 06/04/2018 Status: F Source: [facility] PORTABLE 2:16 PM [facility] REPOSITORY EXAM: XR ABDOMEN 1 VIEW PORTABLE, [...] (CBC AND Collected: 06/04/2018 Status: F Source: [facility] PLATELET) 3:02 AM [facility] REPOSITORY TYPE CODE TESTS RESULT OUT OF [...] #### HEMOGC, PTPTT, CHM7, MGO #### [facility] [address] [place] [address] [place] [address] PT*PTT Collected: 06/04/2018 Status: F Source: [facility] 3:02 AM [facility] REPOSITORY TYPE CODE TESTS RESULT OUT OF RANGE REFERENCE UNITS LAB PT 11.9-14.2 sec High PT 17.5 LAB INR 0.9-1.1 High INR 1.4 LAB PTT 24.0-34.3 sec High PTT 37.3 Result Comment: Results inconsistent with the patient's previous results Performed By: #### HEMOGC, PTPTT, CHM7, MGO #### [facility] [address] [place] [id number] [place] [address] [address] [place] [address] CHEM 7 Collected: 06/04/2018 Status: F Source: [facility] 3:02 AM [facility] REPOSITORY TYPE CODE TESTS RESULT OUT OF [...] GFR >60 mL/min/1.73 sqM Est GFR,non >60 [place] [facility] GFRA >60 mL/min/1.73 sqM Est GFR, >60 Performed By: #### HEMOGC, PTPGIOVANNY, CHM7, MGO #### [facility] [address] [place] [address] [place] [address] MAGNESIUM Collected: 06/04/2018 Status: F Source: [facility] 3:02 AM [facility] REPOSITORY TYPE CODE TESTS RESULT OUT OF REFERENCE UNITS RANGE LAB MG 1.6-2.6 mg/dL Magnesium 1.8 Performed By: #### HEMOGC, PTPTT, CHM7, MGO #### [facility] [address] [place] [address] [place] [address] HEMOGRAM (CBC AND Collected: 06/03/2018 Status: F Source: [facility] PLATELET) 2:37 AM [facility] REPOSITORY TYPE CODE TESTS RESULT OUT OF [...] RBC 0.0 Performed By: #### HELDER ARANDA, MGMarcelino #### [facility] [address] [place] [address] [place] [address] #### PTPTT #### [facility] (DEFAULT) [address] [place] [address] CHEM 7 Collected: 06/03/2018 Status: F Source: [facility] 2:37 AM [facility] REPOSITORY TYPE CODE TESTS RESULT OUT OF [...] GFR >60 mL/min/1.73 sqM Est GFR,non >60 [place] [facility] GFRA >60 mL/min/1.73 sqM Est GFR, >60 Performed By: #### HEMCHELITA, VINICIOM7, MGO #### [facility] [address] [place] [address] [place] [address] #### PTPTT #### [facility] (DEFAULT) [address] [place] [address] MAGNESIUM Collected: 06/03/2018 Status: F Source: [facility] 2:37 AM [facility] REPOSITORY TYPE CODE TESTS RESULT OUT OF REFERENCE UNITS RANGE LAB MG 1.6-2.6 mg/dL Magnesium 1.7 Performed By: #### HEMOGC, CHM7, MGO #### [facility] [address] [place] [id number] [facility] [address] [place] [id number] #### PTPTT #### [facility] (DEFAULT) [address] [place] [id number] PT*PTT Collected: 06/03/2018 Status: X Source: [facility] 2:37 AM [facility] REPOSITORY TYPE CODE TESTS RESULT OUT OF REFERENCE UNITS RANGE LAB PTPTT PT*PTT This result has been cancelled. Performed By: #### HEMOGC, CHM7, MGO #### [facility] [address] [place] [address] [facility] [address] [place] [address] #### PTPTT #### [facility] (DEFAULT) [address] [place] [address] HEMOGRAM (CBC AND Collected: 06/02/2018 Status: F Source: [facility] PLATELET) 3:32 AM [facility] REPOSITORY TYPE CODE TESTS RESULT OUT OF [...] RBC 0.0 Performed By: #### HEMCHELITA, VINICIOM7, MGO, PTPTT #### [facility] [address] [place] [address] [place] [address] 9[address]73 CHEM 7 Collected: 06/02/2018 Status: F Source: [facility] 3:32 AM [facility] REPOSITORY TYPE CODE TESTS RESULT OUT OF [...] GFR >60 mL/min/1.73 sqM Est GFR,non >60 [place] [facility] GFRA >60 mL/min/1.73 sqM Est GFR, >60 Performed By: #### HEMCHELITA, VINICIOMRylan, MGO, PTPTT #### [facility] [address] [place] [address] [place] [address] MAGNESIUM Collected: 06/02/2018 Status: F Source: [facility] 3:32 AM [facility] REPOSITORY TYPE CODE TESTS RESULT OUT OF REFERENCE UNITS RANGE LAB MG 1.6-2.6 mg/dL Magnesium 1.9 Performed By: #### HEMDENNYC, CHM7, MGO, PTPTT #### [facility] [address] [place] [address] [place] [address] 26000 PT*PTT Collected: 06/02/2018 Status: F Source: [facility] 3:32 AM [facility] REPOSITORY TYPE CODE TESTS RESULT OUT OF RANGE REFERENCE UNITS LAB PT 11.9-14.2 sec High PT 16.9 LAB INR 0.9-1.1 High INR 1.4 LAB PTT 24.0-34.3 sec PTT 31.2 Performed By: #### HEMOGC, CHM7, MGO, PTPTT #### [facility] [address] [place] [id number] [place] [address] [address] [place] [address] 02613 CHEM 6 Collected: 06/01/2018 Status: F Source: [facility] 4:41 PM [facility] REPOSITORY TYPE CODE TESTS RESULT OUT OF [...] GFR >60 mL/min/1.73 sqM Est GFR,non >60 [place] [facility] GFRA >60 mL/min/1.73 sqM Est GFR, >60 Performed By: #### CHM6 #### [facility] [address] [place] [address] [place] [address] 6[address]27 POTASSIUM Collected: 06/01/2018 Status: F Source: [facility] 2:06 PM [facility] REPOSITORY TYPE CODE TESTS RESULT OUT OF REFERENCE UNITS RANGE LAB K 3.5-5.0 mmol/L Low Potassium 3.2 Performed By: #### KKO #### [facility] [address] [place] [id number] [place] [address] [address] [place] [id number] HEMOGRAM (CBC AND Collected: 06/01/2018 Status: F Source: [facility] PLATELET) 3:26 AM [facility] REPOSITORY TYPE CODE TESTS RESULT OUT OF [...] WBC NUCLEATED RBC 0.0 Performed By: #### HEMDENNYC, VINICIOM7, MGO, PTPTT #### [facility] [address] [address] CHEM 7 Collected: 06/01/2018 Status: F Source: [facility] 3:26 AM [facility] REPOSITORY TYPE CODE TESTS RESULT OUT OF [...] #### HEMOGC, CHM7, MGO, PTPTT #### [facility] [phone] [place] [address] [address] MAGNESIUM Collected: 06/01/2018 Status: F Source: [facility] 3:26 AM [facility] REPOSITORY TYPE CODE TESTS RESULT OUT OF REFERENCE UNITS RANGE LAB MG 1.6-2.6 mg/dL Magnesium 1.9 Performed By: #### HEMCHELITA, VINICIOM7, MGO, PTPTT #### [facility] [address] [place] [address] [facility] [address] [place] [address] 47663 PT*PTT Collected: 06/01/2018 Status: F Source: [facility] 3:26 AM [facility] REPOSITORY TYPE CODE TESTS RESULT OUT OF RANGE REFERENCE UNITS LAB PT 11.9-14.2 sec High PT 16.3 LAB INR 0.9-1.1 High INR 1.3 LAB PTT 24.0-34.3 sec PTT 32.7 Performed By: #### MANOJ, VINICIOMRylan, MGO, PTPTT #### [facility] [address] [place] [address] [place] [address] 45093 XR CHEST PORTABLE Observed: 05/31/2018 Status: F Source: [facility] 1:03 PM [facility] REPOSITORY EXAM: XR CHEST PORTABLE, 05/31/2018 12:12 PM COMPARISON: May 29, 2018 CLINICAL INDICATIONS: new cough RELEVANT CLINICAL HISTORY: FINDINGS: (Adequate technique) Improved right basilar atelectasis. Mildly progressive left pleural effusion and left basilar atelectasis. No other change. IMPRESSION: Improved right basilar atelectasis. Mildly progressive left pleural effusion and left basilar atelectasis. & HCT Collected: 05/31/2018 Status: F Source: [facility] 12:54 PM [facility] REPOSITORY TYPE CODE TESTS RESULT OUT OF REFERENCE UNITS RANGE LAB HGB 11.4-15.2 g/dL Low Hemoglobin 9.4 LAB HCT 34.9-44.3 % Low Hematocrit 28.8 Performed By: #### HH #### [facility] [address] [place] [address] [place] [address] [place] [address] *POC GLUCOSE BATTERY Collected: 05/31/2018 Status: F Source: [facility] 7:05 AM [facility] REPOSITORY TYPE CODE TESTS RESULT OUT OF REFERENCE UNITS RANGE LAB GLUP 70-99 mg/dL High Glucose (poc 155 device) Result Comment: No BRAVE per RN: PATIENT TYPE LAB PCSTYP *POC Capillary SAMPLE TYPE Blood *POC GLUCOSE BATTERY Collected: 05/31/2018 Status: F Source: [facility] 6:30 AM [facility] REPOSITORY TYPE CODE TESTS RESULT OUT OF REFERENCE UNITS RANGE LAB GLUP 70-99 mg/dL Low alert Glucose (poc 47 device) Result Comment: Notified RNread back No BRAVE per RN: PATIENT TYPE LAB PCSTYP *POC Capillary SAMPLE TYPE Blood CHEM 7 Collected: 05/31/2018 Status: F Source: [facility] 3:02 AM [facility] REPOSITORY TYPE CODE TESTS RESULT OUT OF [...] GFR >60 mL/min/1.73 sqM Est GFR,non >60 [place] [facility] GFRA >60 mL/min/1.73 sqM Est GFR, >60 Performed By: #### VINICIOMRylan, MGO, PTPTT, HEMOGC #### [facility] [address] [place] [address] [address] [place], [place] [address] MAGNESIUM Collected: 05/31/2018 Status: F Source: [facility] 3:02 AM [facility] REPOSITORY TYPE CODE TESTS RESULT OUT OF REFERENCE UNITS RANGE LAB MG 1.6-2.6 mg/dL Low Magnesium 1.5 Performed By: #### VINICIOM7, MGO, PTPTT, HEMOGC #### [facility] [address] [place] [address] [facility] [address] [place] [address] 76766 PT*PTT Collected: 05/31/2018 Status: F Source: [facility] 3:02 AM [facility] REPOSITORY TYPE CODE TESTS RESULT OUT OF RANGE REFERENCE UNITS LAB PT 11.9-14.2 sec High PT 16.1 LAB INR 0.9-1.1 High INR 1.3 LAB PTT 24.0-34.3 sec PTT 33.5 Result Comment: Results inconsistent with the patient's previous results Performed By: #### CHM7, KELSEY, PTPGIOVANNY, HEMOGC #### [facility] [address] [place] [address] [place] [address] HEMOGRAM (CBC AND Collected: 05/31/2018 Status: F Source: [facility] PLATELET) 3:02 AM [facility] REPOSITORY TYPE CODE TESTS RESULT OUT OF [...] NUCLEATED RBC 0.0 Performed By: #### CHM7, MGMarcelino, PTPGIOVANNY, HEMOGC #### [facility] [address] [place] [address] [place] [address] XR ABDOMEN 1 VIEW Observed: 05/30/2018 Status: F Source: [facility] PORTABLE 6:14 PM [facility] REPOSITORY EXAM: XR ABDOMEN 1 VIEW PORTABLE, [...] perforation. CARDIOGRAM Observed: 05/30/2018 Status: F Source: [facility] 6:08 PM [facility] REPOSITORY ? Left ventricular size is normal, [...] & HCT Collected: 05/30/2018 Status: F Source: [facility] 7:45 AM [facility] REPOSITORY TYPE CODE TESTS RESULT OUT OF REFERENCE UNITS RANGE LAB HGB 11.4-15.2 g/dL Low Hemoglobin 8.4 LAB HCT 34.9-44.3 % Low Hematocrit 26.1 Performed By: #### HH #### [facility] [place] [address] HEMOGRAM (CBC AND Collected: 05/30/2018 Status: F Source: [facility] PLATELET) 1:50 AM [facility] REPOSITORY TYPE CODE TESTS RESULT OUT OF [...] 0.0 Performed By: #### HEMOGC #### [facility] [address] [place] [address] [address] [place], [place] [address] PT*PTT Collected: 05/30/2018 Status: F Source: [facility] 1:05 [facility] REPOSITORY TYPE CODE TESTS RESULT OUT OF RANGE REFERENCE UNITS LAB PT 11.9-14.2 sec High PT 16.0 LAB INR 0.9-1.1 High INR 1.3 LAB PTT 24.0-34.3 sec PTT 26.2 Performed By: #### HELDER DUMONT, MGO #### [facility] [address] [place] [id number] [place] [address] [address] [place] [address] 80031 CHEM 7 Collected: 05/30/2018 Status: F Source: [facility] 1:05 [facility] REPOSITORY TYPE CODE TESTS RESULT [...] GFR >60 mL/min/1.73 sqM Est GFR,non >60 [place] [facility] GFRA >60 mL/min/1.73 sqM Est GFR, >60 Performed By: #### HELDER DUMONT, MGO #### [facility] [address] [place] [address] [facility] [address] [place] [address] 6[address] MAGNESIUM Collected: 05/30/2018 Status: F Source: [facility] 1:05 AM [facility] REPOSITORY TYPE CODE TESTS RESULT OUT OF REFERENCE UNITS RANGE LAB MG 1.6-2.6 mg/dL Low Magnesium 1.5 Performed By: #### PTPTT, CHM7, MGO #### [facility] [address] [place] [address] [place] [address] Observed: 05/29/2018 Status: F Source: [facility] TYPE AND CROSS 5:34 PM [facility] REPOSITORY ABO/RH(D): O POSITIVE ANTIBODY SCREEN: NEGATIVE UNIT NUMBER: [id number] BLOOD COMPONENT TYPE: Red Cells, [id number] STATUS OF UNIT: Issued, Final TRANSFUSION STATUS: OK TO TRANSFUSE CROSSMATCH RESULT: Electronically Compatible Performed By: #### XM #### [facility] [address] [place] [address] [place] [address] URINALYSIS REFLEX Collected: 05/29/2018 Status: F Source: [facility] CULTURE 4:24 PM [facility] REPOSITORY TYPE CODE TESTS RESULT OUT OF RANGE REFERENCE UNITS LAB PROCESSING LEAD Clear Appearance Urine Clear LAB SPGR 1.001-1.035 High Specific [place] urine >1.045 LAB UGL Negative mg/dL Glucose [...] Epithelial 2+ Performed By: #### URIN1 #### [facility] [address] [place] [address] [address] [place], [place] [address] HGB & HCT Collected: 05/29/2018 Status: F Source: [facility] 3:28 PM [facility] REPOSITORY TYPE CODE TESTS RESULT OUT OF REFERENCE UNITS RANGE LAB HGB 11.4-15.2 g/dL Low alert Hemoglobin 6.8 Result Comment: This result has been called to TAM NICHOLE by Dede Shabazz on 05 29 2018 at 1614, and has been read back. LAB HCT 34.9-44.3 % Hematocrit Low 21.3 Performed By: #### HH #### [facility] [address] [place], [place] [id number] [place] [address] [address] [place], [place] [address] CT ABDOMEN/PELVIS WITH Observed: 05/29/2018 Status: F Source: [facility] CONTRAST 1:57 PM [facility] REPOSITORY EXAM: CT ABDOMEN/PELVIS WITH CONTRAST, 05/29/2018 [...] LEAD ELECTROCARDIOGRAM Observed: 05/29/2018 Status: F Source: [facility] 11:37 AM [facility] REPOSITORY [facility] Cardiovascular Services [address] [place] [address] 12 Lead EKG 05/25/18 0443 MR#: [id number] Acct: [id number] Name: PAMELA ESPINOZA Rep #: [id number] : 1940 78 From: Sagar George MD Attending Dr: Ashvin Bowman DO Status: DIS IN Ordering Dr: Ashvin James MD Date: 05/25/18 Location: [place] Sex: F C Admitted: 05/24/18 Test Reason [...] leads Confirmed by SAGAR GEORGE MD ([id number]), online editor CHILO BIRCH ([id number]) on 05/29/2018 11:37:27 AM Referred By: Sidney Khan Confirmed By:SAGAR GEORGE MD 05/29/18 1137 Date Sagar George MD CC: Ashvin James MD; Ashvin Bowman DO; Ashvin Cardenas MD; Sidney Khan MD Signed XR CHEST PORTABLE Observed: 05/29/2018 Status: F Source: [facility] 10:14 AM [facility] REPOSITORY EXAM: XR CHEST PORTABLE, 05/29/2018 00:24 [...] & HCT Collected: 05/29/2018 Status: F Source: [facility] 8:50 AM [facility] REPOSITORY TYPE CODE TESTS RESULT OUT OF REFERENCE UNITS RANGE LAB HGB 11.4-15.2 g/dL Low Hemoglobin 7.2 LAB HCT 34.9-44.3 % Low Hematocrit 21.6 Performed By: #### HH #### [facility] [place] [address] Observed: 05/29/2018 Status: F Source: [facility] BLOOD:ROUTINE I 12:30 AM [facility] REPOSITORY SOURCE: BLOOD, PERIPHERAL: Right Antecubital RESULT: NO GROWTH DAY 5 OF 5 REPORT STATUS: 06/03/2018 FINAL Performed By: #### FAST #### [facility] [address] [place] [address] Blood Cultures processed at: [facility] HEMOGRAM (CBC AND Collected: 05/29/2018 Status: F Source: [facility]) 12:16 AM [facility] REPOSITORY TYPE CODE TESTS RESULT OUT OF [...] #### HEMOGC, CHM7, MGO, PTPTT #### [facility] [address] [place] [address] [facility] [address] [place], [place] [address] CHEM 7 Collected: 05/29/2018 Status: F Source: [facility] 12:16 AM [facility] REPOSITORY TYPE CODE TESTS RESULT OUT OF [...] GFR >60 mL/min/1.73 sqM Est GFR,non >60 [place] [facility] GFRA >60 mL/min/1.73 sqM Est GFR, >60 Performed By: #### HEMOGC, CHM7, MGO, PTPTT #### [facility] [address] [place] [address] [address] [place] [address] MAGNESIUM Collected: 05/29/2018 Status: F Source: [facility] 12:16 AM [facility] REPOSITORY TYPE CODE TESTS RESULT OUT OF REFERENCE UNITS RANGE LAB MG 1.6-2.6 mg/dL Low Magnesium 1.5 Performed By: #### HEMOGC, CHM7, MGO, PTPTT #### [facility] [address] [place] [address] PT*PTT Collected: 05/29/2018 Status: F Source: [facility] 12:16 [facility] REPOSITORY TYPE CODE TESTS RESULT OUT OF RANGE REFERENCE UNITS LAB PT 11.9-14.2 sec High PT 14.4 LAB INR 0.9-1.1 INR 1.1 LAB PTT 24.0-34.3 sec PTT 25.0 Performed By: #### HEMOGC, CHM7, MGO, PTPTT #### [facility] [address] [place] [address] [address] [place] [address] *POC GLUCOSE BATTERY Collected: 05/29/2018 Status: F Source: [facility] 12:10 AM [facility] REPOSITORY TYPE CODE TESTS RESULT OUT OF REFERENCE UNITS RANGE LAB GLUP 70-99 mg/dL Glucose (poc 96 device) Result Comment: No BRAVE per RN: PATIENT TYPE LAB PCSTYP *POC Capillary SAMPLE TYPE Blood LACTATE, BLOOD Collected: 05/29/2018 Status: F Source: [facility] 12:01 AM [facility] REPOSITORY TYPE CODE TESTS RESULT OUT OF RANGE REFERENCE UNITS LAB LACT 0.5-1.6 mmol/L Lactate, 1.2 Blood Performed By: #### LACT #### [facility] [address] [place] [address] [facility] [address] [place], [place] [address] HGB & HCT Collected: 05/29/2018 Status: F Source: [facility] 12:01 AM [facility] REPOSITORY TYPE CODE TESTS RESULT OUT OF REFERENCE UNITS RANGE LAB HGB 11.4-15.2 g/dL Low Hemoglobin 8.2 LAB HCT 34.9-44.3 % Low Hematocrit 25.3 Performed By: #### HH #### [facility] [address] [place] [address] [facility] [address] [place], [place] [address] Observed: 05/28/2018 Status: F Source: [facility] BLOOD:ROUTINE II 11:52 PM [facility] REPOSITORY SOURCE: BLOOD, PERIPHERAL: Left Arm RESULT: NO GROWTH DAY 5 OF 5 REPORT STATUS: 06/03/2018 FINAL Performed By: #### FAST2 #### [facility] [address] [place] [address] Blood Cultures processed at: [facility] HGB & HCT Collected: 05/28/2018 Status: F Source: [facility] 6:34 PM [facility] REPOSITORY TYPE CODE TESTS RESULT OUT OF REFERENCE UNITS RANGE LAB HGB 11.4-15.2 g/dL Low Hemoglobin 8.8 LAB HCT 34.9-44.3 % Low Hematocrit 26.6 Performed By: #### HH #### [facility] [address] [place] [address] [place] [address] SURGICAL PATHOLOGY Observed: 05/28/2018 Status: F Source: [facility] 6:05 PM [facility] REPOSITORY Surgical Pathology Report Patient Name: PAMELA ESPINOZA Med. Rec #: [id number] Submitting Physician: ELIZABETH ORTIZ --- Clinical History [...] 05/30/2018 18:19:56 Professional Interpretation performed at location: [address] [place] [id number] ---SPECIMEN(S) RECEIVED:--- SBX A: Colon, BX B: [...] dimension. TE 1 Lab Use Only: JobID [id number] Gross description by: Kenyatta Fu Performed By: #### SURGP #### [facility] [address] [place] [address] [place] [address] [address] [place] [address] POTASSIUM Collected: 05/28/2018 Status: F Source: [facility] 1:42 PM [facility] REPOSITORY TYPE CODE TESTS RESULT OUT OF REFERENCE UNITS RANGE LAB K 3.5-5.0 mmol/L Potassium 3.6 Performed By: #### KKO #### [facility] [address] [place] [id number] [place] [address] [address] [place] [address] HGB & HCT Collected: 05/28/2018 Status: F Source: [facility] 11:51 AM [facility] REPOSITORY TYPE CODE TESTS RESULT OUT OF REFERENCE UNITS RANGE LAB HGB 11.4-15.2 g/dL Low Hemoglobin 8.1 LAB HCT 34.9-44.3 % Low Hematocrit 24.6 Performed By: #### HH #### [facility] [address] [place] [id number] [place] [address] [address] [place] [address] HGB & HCT Collected: 05/28/2018 Status: F Source: [facility] 6:01 AM [facility] REPOSITORY TYPE CODE TESTS RESULT OUT OF REFERENCE UNITS RANGE LAB HGB 11.4-15.2 g/dL Low Hemoglobin 7.9 LAB HCT 34.9-44.3 % Low Hematocrit 24.2 Performed By: #### HH #### [facility] [address] [place] [address] [facility] [address] [place] [address] HEMOGRAM (CBC AND Collected: 05/28/2018 Status: F Source: [facility] [place]) 1:08 AM [facility] REPOSITORY TYPE CODE TESTS RESULT OUT OF [...] #### HEMOGC, PTPTT, CHM7, MGO #### [facility] [place] [address] PT*PTT Collected: 05/28/2018 Status: F Source: [facility] 1:08 [facility] REPOSITORY TYPE CODE TESTS RESULT OUT OF RANGE REFERENCE UNITS LAB PT 11.9-14.2 sec High PT 14.3 LAB INR 0.9-1.1 INR 1.1 LAB PTT 24.0-34.3 sec PTT 26.7 Performed By: #### HEMOGC, PTPTT, CHM7, MGO #### [place] [address] CHEM 7 Collected: 05/28/2018 Status: F Source: [facility] 1:08 [facility] REPOSITORY TYPE CODE TESTS RESULT [...] #### HEMOGC, PTPTT, CHM7, MGO #### [facility] [address] [place] [id number] [place] [address] [address] [place] [address] MAGNESIUM Collected: 05/28/2018 Status: F Source: [facility] 1:08 AM [facility] REPOSITORY TYPE CODE TESTS RESULT OUT OF REFERENCE UNITS RANGE LAB MG 1.6-2.6 mg/dL Magnesium 1.6 Performed By: #### HEMOGC, PTPTT, CHM7, MGO #### [facility] [address] [place] [address] [place] [address] HGB & HCT Collected: 05/27/2018 Status: F Source: [facility] 11:50 PM [facility] REPOSITORY TYPE CODE TESTS RESULT OUT OF REFERENCE UNITS RANGE LAB HGB 11.4-15.2 g/dL Low Hemoglobin 8.8 LAB HCT 34.9-44.3 % Low Hematocrit 26.3 Performed By: #### HH #### [facility] [address] [place] [id number] [place] [address] [address] [place] [address] HGB & HCT Collected: 05/27/2018 Status: F Source: [facility] 6:01 PM [facility] REPOSITORY TYPE CODE TESTS RESULT OUT OF REFERENCE UNITS RANGE LAB HGB 11.4-15.2 g/dL Low Hemoglobin 9.3 LAB HCT 34.9-44.3 % Low Hematocrit 27.9 Performed By: #### HH #### [facility] [address] [place] [address] [facility] [address] [address] HGB & HCT Collected: 05/27/2018 Status: F Source: [facility] 12:04 PM [facility] REPOSITORY TYPE CODE TESTS RESULT OUT OF REFERENCE UNITS RANGE LAB HGB 11.4-15.2 g/dL Low Hemoglobin 8.8 LAB HCT 34.9-44.3 % Low Hematocrit 26.6 Performed By: #### HH #### [facility] [address] [place] [id number] [place] [address] [address] [place] [address] HEMOGRAM (CBC AND Collected: 05/27/2018 Status: F Source: [facility] PLATELET) 1:42 AM [facility] REPOSITORY TYPE CODE TESTS RESULT OUT OF [...] Performed By: #### HEMOGC, CHM7, PTPTT #### [facility] [address] [place] [id number] [place] [address] [address] [place] [address] CHEM 7 Collected: 05/27/2018 Status: F Source: [facility] 1:42 AM [facility] REPOSITORY TYPE CODE TESTS RESULT OUT OF [...] GFR >60 mL/min/1.73 sqM Est GFR,non >60 [place] GFRA >60 mL/min/1.73 sqM Est GFR, >60 Performed By: #### HEMVINICIO MERLOSM7, PTPTT #### [facility] [address] [place] [id number] [place] [address] [address] [place] [address] PT*PTT Collected: 05/27/2018 Status: F Source: [facility] 1:42 AM [facility] REPOSITORY TYPE CODE TESTS RESULT OUT OF RANGE REFERENCE UNITS LAB PT 11.9-14.2 sec PT 14.2 LAB INR 0.9-1.1 INR 1.1 LAB PTT 24.0-34.3 sec PTT 27.1 Performed By: #### VINICIO ARANDAMRylan, PTPTT #### [facility] [address] [place] [address] [place] [address] HGB & HCT Collected: 05/26/2018 Status: F Source: [facility] 11:31 PM [facility] REPOSITORY TYPE CODE TESTS RESULT OUT OF REFERENCE UNITS RANGE LAB HGB 11.4-15.2 g/dL Low Hemoglobin 9.0 LAB HCT 34.9-44.3 % Low Hematocrit 27.5 Performed By: #### HH #### [facility] [address] [place] [address] [place] [address]687 HGB & HCT Collected: 05/26/2018 Status: F Source: [facility] 5:44 PM [facility] REPOSITORY TYPE CODE TESTS RESULT OUT OF REFERENCE UNITS RANGE LAB HGB 11.4-15.2 g/dL Low Hemoglobin 9.3 LAB HCT 34.9-44.3 % Low Hematocrit 28.4 Performed By: #### HH #### [facility] [address] [place], [address] [place] [address] URINALYSIS REFLEX Collected: 05/26/2018 Status: F Source: [facility] CULTURE 12:43 PM [facility] REPOSITORY TYPE CODE TESTS RESULT OUT OF RANGE REFERENCE UNITS LAB PROCESSING LEAD Clear Appearance Urine Clear LAB SPGR 1.001-1.035 Specific [place] urine 1.011 LAB UGL Negative mg/dL Glucose [...] Epithelial 1+ Performed By: #### URIN1 #### [facility] [address] [place] [address] [place] [address] Observed: 05/26/2018 Status: F Source: [facility] TYPE AND CROSS 12:30 PM [facility] REPOSITORY ABO/RH(D): O POSITIVE ANTIBODY SCREEN: NEGATIVE UNIT NUMBER: [id number] BLOOD COMPONENT TYPE: Red Cells, Leukoreduced_[id number] STATUS OF UNIT: REL FROM ALLOC TRANSFUSION STATUS: OK TO TRANSFUSE CROSSMATCH RESULT: Electronically Compatible Performed By: #### XM #### [facility] [address] [place] [address] [place] [address] HGB & HCT Collected: 05/26/2018 Status: F Source: [facility] 11:49 AM [facility] REPOSITORY TYPE CODE TESTS RESULT OUT OF REFERENCE UNITS RANGE LAB HGB 11.4-15.2 g/dL Low Hemoglobin 9.2 LAB HCT 34.9-44.3 % Low Hematocrit 28.1 Performed By: #### HH #### [facility] [address] [place] [address] [place] [address], [place] [address] Observed: 05/26/2018 Status: F Source: [facility] URINE CULTURE -UHE 5:30 AM [facility] REPOSITORY SOURCE: URINE-CLEAN CATCH: RESULT: NO SIGNIFICANT GROWTH. Routine cultures are evaluated for significant uropathogens >10,000 CFU/mL. REPORT STATUS: 05/27/2018 FINAL Performed By: #### UR #### [address] [address] Blood Cultures processed at: [facility] Observed: 05/26/2018 Status: F Source: [facility] BLOOD:ROUTINE I 5:29 AM [facility] REPOSITORY SOURCE: BLOOD, PERIPHERAL: Right Arm RESULT: NO GROWTH DAY 5 OF 5 REPORT STATUS: 05/31/2018 FINAL Performed By: #### FAST #### [address] [address] Blood Cultures processed at: [facility] Observed: 05/26/2018 Status: F Source: [facility] BLOOD:ROUTINE II 5:29 [facility] REPOSITORY SOURCE: BLOOD, PERIPHERAL: Left Arm COMMENT: Results may be compromised due to inappropriate blood volume. The optimal blood volume is 8-10 mls per aerobic/anaerobic blood culture bottle. Sent Aerobic Blood Bottle Only RESULT: NO GROWTH DAY 5 OF 5 REPORT STATUS: 05/31/2018 FINAL Performed By: #### FAST2 #### [facility] [address] [place] [address] Blood Cultures processed at: [facility] HEMOGRAM (CBC AND Collected: 05/26/2018 Status: F Source: [facility] PLATELET) 3:40 AM [facility] REPOSITORY TYPE CODE TESTS RESULT OUT OF [...] 0.0 Performed By: #### HEMOGC #### [place] [address] [place] [address] LACTATE, BLOOD Collected: 05/26/2018 Status: F Source: [facility] 1:37 AM [facility] REPOSITORY TYPE CODE TESTS RESULT OUT OF RANGE REFERENCE UNITS LAB LACT 0.5-1.6 mmol/L Lactate, 0.6 Blood Performed By: #### LACT #### [facility] [id number] [place] [address] [address] [place] [address] CHEM 7 Collected: 05/26/2018 Status: F Source: [facility] 1:37 AM [facility] REPOSITORY TYPE CODE TESTS RESULT OUT OF [...] GFR >60 mL/min/1.73 sqM Est GFR,non >60 [place] [facility] GFRA >60 mL/min/1.73 sqM Est GFR, >60 Performed By: #### CHM7, CRUZ, PTPTT #### [facility] [address] [place] [address] #### CBCDFC #### [facility] (DEFAULT) [address] [address] HEPATIC FUNCTION Collected: 05/26/2018 Status: F Source: [facility] PANEL 1:37 AM [facility] REPOSITORY TYPE CODE TESTS RESULT OUT OF REFERENCE UNITS RANGE LAB ALB 3.5-5.0 g/dL Low Albumin 2.6 LAB BILD <0.3 mg/dL Bilirubin Direct 0.1 LAB BILT <1.5 mg/dL Bilirubin Total 1.1 LAB ALP 32-126 U/L Alkaline Phosphatase 47 LAB ALT 9-48 U/L ALT 23 LAB AST 14-40 U/L AST 31 LAB TP 6.4-8.3 g/dL Low Total Protein 6.0 Performed By: #### CHM7, CRUZ, PTPTT #### [facility] [address] [address] [facility] [address] [place] [address] #### CBCDFC #### [facility] (DEFAULT) [address] [address] PT*PTT Collected: 05/26/2018 Status: F Source: [facility] 1:37 AM [facility] REPOSITORY TYPE CODE TESTS RESULT OUT OF RANGE REFERENCE UNITS LAB PT 11.9-14.2 sec High PT 14.7 LAB INR 0.9-1.1 INR 1.1 LAB PTT 24.0-34.3 sec PTT 30.0 Performed By: #### CHM7, CRUZ, PTPTT #### [facility] [address] [place] [address] [facility] [address] [place] [address] #### CBCDFC #### [facility] (DEFAULT) [address] [place] [address] CBC,PLATELET,DIFFERENTIAL - CCL Collected: Status: X Source: [facility] 05/26/2018 1:37 AM [facility] REPOSITORY TYPE CODE TESTS RESULT OUT OF REFERENCE UNITS RANGE LAB CBCDFC This CBC,PLATELET result has ,DIFFERENTIA been L - CCL cancelled. Performed By: #### VINICIOM7, CRUZ, PTPTT #### [facility] [address] [place] [address] [facility] [address] [place] [address] #### CBCDFC #### [facility] (DEFAULT) [address] [place] [address] HH, HEMOGLOBIN AND Collected: 05/25/2018 Status: F Source: [place] HEMATOCRIT 6:30 PM [facility] REPOSITORY TYPE CODE TESTS RESULT OUT OF RANGE REFERENCE UNITS LAB L100.1300 12.0-15.0 g/dl Low HGB 9.4 LAB L100.1400 37-47 % Low HCT 28.8 Performed By: #### L100.0600 #### [facility] [address] [place], [address] CBC W/DIFF, AUTOMATED Collected: 05/25/2018 Status: F Source: [place] 11:45 AM [facility] REPOSITORY TYPE CODE TESTS RESULT OUT OF [...] Lymph 1.42 Performed By: #### L100.0100 #### [facility] [address] [place], [address] DISCHARGE SUMMARY Observed: 05/25/2018 Status: F Source: [facility] 10:51 AM [facility] REPOSITORY [facility] Medical Records Department [address] [place] [address] Discharge Summary 05/25/18 1046 MR#: [id number] Acct: [id number] Name: PAMELA ESPINOZA Rep #: [id number] : 1940 78 From: Ashvin Bowman DO PCP: Ashvin Cardenas MD Status: ADM IN Y Location: MS3 [id number] Discharge Date and Diagnosis - Problem List [...] have cecal AVMs and was evaluated by [facility] surgery on was deemed not a [...] measures and to go to [facility]. Spoke with the transfer line [facility] and patient was accepted by Dr. Calhoun. I did explain to the patient that it may be more conservative measures rather surgery but they will make further determinations at [facility] surgery or other endoscopic cauterization etc. [...] applicable Code Visit Inpatient E AND M: 11198 Disch Hosp 05/25/18 1051 <Electronically signed by Ashvin Jopperi DO> Date Ashvin Bowman DO Cosigner Signature (if applicable): Date CC: Ashvin Bowman DO; Ashvin Cardenas MD Signed OPERATIVE REPORT - Observed: 05/25/2018 Status: F Source: [facility] ENDOSCOPY 6:58 AM [facility] REPOSITORY [facility] Medical Records Department [address] [facility] [address] Operative Report - Endoscopy MR#: [id number] Acct: [id number] Name: PAMELA ESPINOZA Rep #: [id number] : 1940 78 From: Sidney Khan MD [...] medications. - Repeat colonoscopy at tertiary center [facility] for retreatment. Procedure Code(s): --- Professional --- 84774, Colonoscopy, flexible; diagnostic, including collection of specimen(s) by brushing or washing, when performed (separate procedure) Diagnosis Code(s): --- Professional --- K64.2, Third degree hemorrhoids K64.4, Residual hemorrhoidal skin tags K55.21, Angiodysplasia of colon with hemorrhage K62.5, Hemorrhage of anus and rectum K57.30, Diverticulosis of large intestine without perforation or abscess without bleeding CPT copyright 2017 [employer]. All rights reserved. The codes documented in this report are preliminary and upon assistant professor of criminal justice review may be revised to meet current compliance requirements. Sidney Khan MD 05/25/2018 6:57:37 AM This report has been signed electronically. Number of Addenda: 0 Note Initiated On: 05/25/2018 5:46 AM 05/25/18 0657 Date Sidney Khan MD Cosigner Signature: Date (if indicated) CC: Adriana Daniels; Ashvin Cardenas MD; Sidney Khan MD Date Dictated: 05/25/18 0546 Date Transcribed: Visual Aid Expert: NASRINC Signed CBC W/DIFF, AUTOMATED Collected: 05/25/2018 Status: F Source: [place] 4:10 AM [facility] REPOSITORY TYPE CODE TESTS RESULT OUT OF [...] Lymph 1.65 Performed By: #### L100.0100 #### [facility] [address] [place], [address] PROTHROMBIN TIME W/INR Collected: 05/25/2018 Status: F Source: [facility] 4:10 AM [facility] REPOSITORY TYPE CODE TESTS RESULT OUT OF RANGE REFERENCE UNITS LAB L300.4150 11.7-14.9 SECONDS Normal PROTIME 14.4 LAB L300.4200 Normal INR 1.1 Performed By: #### L300.3900, L300.4310, L500.3400, L501.9520 #### [facility] [address] [place], [place], [address] PARTIAL THROMBOPLAST Collected: 05/25/2018 Status: F Source: [facility] TIME 4:10 AM [facility] REPOSITORY TYPE CODE TESTS RESULT OUT OF RANGE REFERENCE UNITS LAB L300.4310 24.1-36.2 Seconds Normal PTT 28.3 Performed By: #### L300.3900, L300.4310, L500.3400, L501.9520 #### [facility] [address] [place], [place], [address] LIVER PROFILE Collected: 05/25/2018 Status: F Source: [facility] 4:10 AM [facility] REPOSITORY TYPE CODE TESTS RESULT OUT OF [...] By: #### L300.3900, L300.4310, L500.3400, L501.9520 #### [facility] [address] [place], [address] THYROID STIM HORMONE Collected: 05/25/2018 Status: F Source: [place] (TSH) 4:10 AM [facility] REPOSITORY TYPE CODE TESTS RESULT OUT OF RANGE REFERENCE UNITS LAB L501.9520 0.358-3.74 uIU/mL Normal TSH 3.24 Performed By: #### L300.3900, L300.4310, L500.3400, L501.9520 #### [facility] [address] [facility] [address] [place], [place], [address] BASIC METABOLIC Collected: 05/25/2018 Status: F Source: [facility] PROFILE (BMP) 4:10 AM [facility] REPOSITORY TYPE CODE TESTS RESULT OUT OF [...] GAP 9 Performed By: #### L500.2500 #### [facility] [address] [place], [place], [address] HH, HEMOGLOBIN AND Collected: 05/25/2018 Status: F Source: [place] HEMATOCRIT 12:15 AM [facility] REPOSITORY TYPE CODE TESTS RESULT OUT OF RANGE REFERENCE UNITS LAB L100.1300 12.0-15.0 g/dl Low HGB 10.8 LAB L100.1400 37-47 % Low HCT 32.0 Performed By: #### L100.0600 #### [facility] [address] [place], [address] HH, HEMOGLOBIN AND Collected: 05/24/2018 Status: F Source: [place] HEMATOCRIT 6:04 PM [facility] REPOSITORY TYPE CODE TESTS RESULT OUT OF RANGE REFERENCE UNITS LAB L100.1300 12.0-15.0 g/dl Low HGB 10.7 LAB L100.1400 37-47 % Low HCT 32.7 Performed By: #### L100.0600 #### [facility] [address] [place], [address] SURGERY VISIT REPORT Observed: 05/24/2018 Status: F Source: [place] 5:31 PM [facility] REPOSITORY [facility] [address] [place] [address] OFFICE VISIT Date of Service: 05/24/18 MR#: [id number] Acct: [id number] Name: PAMELA ESPINOZA Rep #: [id number] : 1940 Provider: Sidney Khan MD Age/Sex: 78/F Location: [facility] Status: Signed Intake Vital Signs05/24/18 Height 4 ft 10 in 05/24/18 Weight: 102 lb 05/24/18 Body Mass Index (BMI) 21.3 Intake Visit Reasons: GI Bleed Chief Complaint: FEVER, ABD PAIN, GENERALLY NOT FEELING WELL. Author'S Agent Required: No Is patient in pain?: Yes [...] At that time I made contact with [facility] gastroenterology. They recommended that she [...] I did not feel comfortable and even [facility] declined referral at that time. The [...] Code Comprehensive,moderate Diagnoses Rectal bleeding K62.5 05/24/18 9317 <Electronically signed by Sidney Khan MD> Date Sidney Khan MD Cosigner Signature: Date (if applicable) CC: Brandy Dodd MD; Ashvin Cardenas MD HISTORY AND PHYSICAL Observed: 05/24/2018 Status: F Source: [place] EXAM 2:41 PM [facility] REPOSITORY [facility] Medical Records Department [address] [place] [address] History and Physical 05/24/18 1407 MR#: [id number] Acct: [id number] Name: PAMELA ESPINOZA Rep #: [id number] : 1940 78 From: No Santos BULL RIDER-C PCP: Ashvin Cardenas MD Status: ADM IN Y Location: [place] [id number] ADDENDUM by Adriana Daniels on 05/24/18 at [...] Autoimmune Hepatitis, Lupus who presents to the [facility] as direct admission from Dr. Khan [...] Autoimmune Hepatitis, Lupus who presents to the [facility] as direct admission from Dr. Khan [...] Time: 16 minutes. Inpatient E AND M: 42920 Init Hosp L3 Procedures: 52735 Advncd Care Plan 30 Min 05/24/18 1441 <Electronically signed by Adriana Daniels > Date Adriana Daniels cc: BULL RIDER-C No Santos; Adriana Daniels; Ashvin Cardenas MD * [...] BL. Psychiatric History: No pertinent psych hx ADJUSTER LEADER History: No pertinent ADJUSTER LEADER history Lives: Spouse/ Significant Other Smoking Status: [...] Daniels. 05/24/18 1435 <Electronically signed by No FIERRO> Date No FIERRO 05/24/18 1438<Electronically signed by Adriana Daniels > Cosigner Signature: Date (if applicable) Adriana Daniels CC: VADIM Santos; Adriana Daniels; Ashvin Cardenas MD Signed CBC W/DIFF, AUTOMATED Collected: 05/24/2018 Status: F Source: [place] 2:00 PM [facility] REPOSITORY TYPE CODE TESTS RESULT OUT OF [...] Lymph 2.72 Performed By: #### L100.0100 #### [facility] [address] [place], [place], [address] BASIC METABOLIC Collected: 05/24/2018 Status: F Source: [place] PROFILE (BMP) 2:00 PM [facility] REPOSITORY TYPE CODE TESTS RESULT OUT OF [...] 8 Performed By: #### L500.2500, L501.5200 #### [facility] [address] [place], [place], [address] MAGNESIUM Collected: 05/24/2018 Status: F Source: [facility] 2:00 PM [facility] REPOSITORY TYPE CODE TESTS RESULT OUT OF RANGE REFERENCE UNITS LAB L501.5200 1.6-2.6 mg/dL Normal MG 1.9 Performed By: #### L500.2500, L501.5200 #### [facility] [address] [place], [address] TYPE AND SCREEN Collected: 05/24/2018 Status: F Source: [facility] 2:00 PM [facility] REPOSITORY Order Comment: Reason for Type AND Screen/Red Cells: HEMORRHAGE, GI BLEED TYPE CODE TESTS RESULT OUT OF RANGE REFERENCE UNITS LAB B10.0800 O Normal BLOOD TYPE GEL POSITIVE LAB B100.4000 Normal Antibody NEGATIVE Screen Performed By: #### B101.7450 #### [facility] [address] [place], [address] DISCHARGE INSTRUCTION Observed: 05/23/2018 Status: F Source: [facility] 6:27 PM [facility] REPOSITORY [facility] Medical Records Department [address] [place] [address] [place] [address] Discharge Instruction 05/23/18 1826 MR#: [id number] Acct: [id number] Name: PAMELA ESPINOZA Rep #: [id number] : 1940 78 From: Brandy Dodd MD [...] your Primary Care Provider. Call [facility] ([phone]) or report to the closest Emergency Room. Call 911 if necessary. 05/23/181826 <Electronically signed by Brandy Dodd MD> Date Brandy Dodd MD Cosigner Signature (If Indicated): Date CC: Ashvin Cardenas MD EMERGENCY DEPARTMENT Observed: 05/23/2018 Status: F Source: [facility] SUMMARY 6:17 PM [facility] REPOSITORY [facility] Medical Records Department [address] [facility] [address] Emergency Department Summary 05/23/18 1606 MR#: [id number] Acct: [id number] Name: PAMELA ESPINOZA Rep #: [id number] : 1940 78 From: Brandy Dodd MD [...] GI bleed This note was generated with CaptureProof dictation software. It may contain incorrect words, [...] problems, contact your Primary Care Provider. Call [facility] ([phone]) or report to the closest Emergency Room. Call 911 if necessary. 05/23/18 1430 <Electronically signed by Brandy Dodd MD> Date Brandy Dodd MD Cosigner Signature (If Indicated): Date CC: Ashvin Cardenas MD CBC W/DIFF, AUTOMATED Collected: 05/23/2018 Status: F Source: [place] 4:28 PM [facility] REPOSITORY TYPE CODE TESTS RESULT OUT OF [...] Lymph 3.15 Performed By: #### L100.0100 #### [facility] [address] [facility] [place], [place], [address] BASIC METABOLIC Collected: 05/23/2018 Status: F Source: [place] PROFILE (BMP) 4:28 PM [facility] REPOSITORY TYPE CODE TESTS RESULT OUT OF [...] GAP 8 Performed By: #### L500.2500 #### [facility] [address] [place], [address] PROTHROMBIN TIME W/INR Collected: 05/23/2018 Status: F Source: [place] 4:28 PM [facility] REPOSITORY TYPE CODE TESTS RESULT OUT OF RANGE REFERENCE UNITS LAB L300.4150 11.7-14.9 SECONDS Normal PROTIME 13.3 LAB L300.4200 Normal INR 1.0 Performed By: #### L300.3900, L300.4310 #### [facility] [address] [place], [address] PARTIAL THROMBOPLAST Collected: 05/23/2018 Status: F Source: [place] TIME 4:28 PM [facility] REPOSITORY TYPE CODE TESTS RESULT OUT OF RANGE REFERENCE UNITS LAB L300.4310 24.1-36.2 Seconds Normal PTT 26.0 Performed By: #### L300.3900, L300.4310 #### [facility] [address] [place], [address] Observed: 05/23/2018 Status: F Source: [place] STOOL OCCULT BLOOD 4:20 PM [facility] IFOB REPOSITORY Order Date: 05/23/18 Has pt arrived? Y STOB iFOB Occult Blood Negative Performed By: #### M100.7900 #### [facility] [address] [place], [address] LIVER PROFILE Collected: 05/23/2018 Status: F Source: [place] 1:27 PM [facility] REPOSITORY TYPE CODE TESTS RESULT OUT OF [...] BILI 0.14 Performed By: #### L500.3400 #### [facility] [address] [place], [address] CBC W/DIFF, AUTOMATED Collected: 04/02/2018 Status: F Source: [place] 12:24 PM [facility] REPOSITORY TYPE CODE TESTS RESULT OUT OF [...] Lymph 2.12 Performed By: #### L100.0100 #### [facility] [address] [place], [place], [address] LIVER PROFILE Collected: 04/02/2018 Status: F Source: [facility] 12:24 PM [facility] REPOSITORY TYPE CODE TESTS RESULT OUT OF [...] 0.19 Performed By: #### L500.3400, L501.5100 #### [facility] [address] [place], [address] GGTP Collected: 04/02/2018 Status: F Source: [facility] 12:24 PM [facility] REPOSITORY TYPE CODE TESTS RESULT OUT OF RANGE REFERENCE UNITS LAB L501.5100 5-55 U/L Normal GGTP 42 Performed By: #### L500.3400, L501.5100 #### [facility] [address] [place], [address] DISCHARGE SUMMARY Observed: 01/05/2018 Status: F Source: [facility] 4:53 PM [facility] REPOSITORY [facility] Medical Records Department [address] [place] [address] Discharge Summary 01/05/18 1649 MR#: [id number] Acct: [id number] Name: PAMELA ESPINOZA [place] Rep #: [id number] : 1940 77 From: Salomón Damon DO PCP: Ashvin Cardenas MD Status: DIS IN Y Location: [place] [id number] Discharge Date and Diagnosis Date of Admission: [...] F them to the emergency room at [facility] with a chief complaint right upper chest [...] applicable Code Visit Inpatient E AND M: 98652 Disch Hosp 01/05/18 1653 <Electronically signed by Salomón Damon DO> Date Salomón Damon DO Cosigner Signature (if applicable): Date CC: Ashvin Cardenas MD; Salomón Damon DO Signed 12 LEAD ELECTROCARDIOGRAM Observed: 01/02/2018 Status: F Source: ISABEL 3:43 PM [facility] REPOSITORY [facility] Cardiovascular Services [address] [place] [address] 12 Lead EKG 12/29/17 1202 MR#: [id number] Acct: [id number] Name: PAMELA ESPINOZA Rep #: [id number] : 1940 77 From: Sagar George MD Attending Dr: Salomón Damon DO Status: DIS IN Ordering Dr: Lupillo Cardenas MD Date: 12/29/17 Location: [facility] Sex: F C Admitted: 12/29/17 Test Reason : CP Blood Pressure : / mmHG Vent. Rate : 105 BPM Atrial Rate : 105 BPM P-R Int : 140 ms QRS Dur : 080 ms QT Int : 332 ms P-R-T Axes : 058 007 065 degrees QTc Int : 438 ms Sinus tachycardia Inferior infarct , age undetermined Abnormal ECG Confirmed by DORIS COELLO, SAGAR ([id number]), online editor CHILO BIRCH ([id number]) on 01/02/2018 3:42:57 PM Referred By: SETH KHALIL Confirmed By:SAGAR GEORGE MD 01/02/18 1543 Date Sagar George MD CC: Lupillo Cardenas MD; Ashvin Cardenas MD; Salomón Damon DO Signed DISCHARGE INSTRUCTION Observed: 01/01/2018 Status: F Source: MICH 6:01 PM [facility] REPOSITORY [facility] Medical Records Department [address] [place] [address] Instructions for Home/Discharge Instructions 01/01/18 1800 MR#: [id number] Acct: [id number] Name: PAMELA ESPINOZA Rep #: [id number] : 1940 77 From: Salomón Damon DO PCP: Ronald COELLO,Ashvin Status: ADM IN - Discharge Diagnoses Current [...] F Source: MICH NO DIFF 6:16 AM [facility] REPOSITORY TYPE CODE TESTS RESULT OUT OF [...] MPV 10.6 Performed By: #### L100.0500 #### [facility] [address] [place], [address] BASIC METABOLIC Collected: 01/01/2018 Status: F Source: MICH PROFILE (BMP) 6:16 AM [facility] REPOSITORY TYPE CODE TESTS RESULT OUT OF [...] 8 Performed By: #### L500.2500, L501.5200 #### [facility] [address] [place], [address] MAGNESIUM Collected: 01/01/2018 Status: F Source: MICH 6:16 AM [facility] REPOSITORY TYPE CODE TESTS RESULT OUT OF RANGE REFERENCE UNITS LAB L501.5200 1.6-2.6 mg/dL Normal MG 1.7 Performed By: #### L500.2500, L501.5200 #### [facility] [address] [place], [address] CONSULTATION Observed: 12/31/2017 Status: F Source: MICH 1:55 PM [facility] REPOSITORY [facility] Medical Records Department [address] [place] [address] Consultation 12/31/17 1349 MR#: [id number] Acct: [id number] Name: PAMELA ESPINOZA Rep #: [id number] : 1940 77 From: Sidney Thompson MD PCP: Ashvin Cardenas MD Status: ADM IN Y Location: MS3 [id number] Problem List (1) Shingles Status: Acute Reason [...] redness and swelling, tenderness; no evidence of [place] Ferro at this point. Continue iv acyclovir. Plan on home on po valtrex. Likely would benefit from killed shingles vaccine as an outpatient. Will follow, thank you. 12/31/17 2628 <Electronically signed by Sidney Thompson MD> Date Sidney Thompson MD Cosigner Signature (if applicable): Date CC: Ashvin Cardenas MD; Sidney Thompson MD Signed CBC-COMPLETE BLOOD CNT Collected: 12/31/2017 Status: F Source: MICH NO DIFF 8:15 AM [facility] REPOSITORY TYPE CODE TESTS RESULT OUT OF [...] MPV 10.4 Performed By: #### L100.0500 #### [facility] [address] [place], [address] BASIC METABOLIC Collected: 12/31/2017 Status: F Source: MICH PROFILE (BMP) 8:15 AM [facility] REPOSITORY TYPE CODE TESTS RESULT OUT OF [...] 8 Performed By: #### L500.2500, L501.5200 #### [facility] [address] [facility] [place], [place], [address] MAGNESIUM Collected: 12/31/2017 Status: F Source: ISABEL 8:15 AM [facility] REPOSITORY TYPE CODE TESTS RESULT OUT OF RANGE REFERENCE UNITS LAB L501.5200 1.6-2.6 mg/dL Normal MG 1.8 Performed By: #### L500.2500, L501.5200 #### [facility] [address] [place], [address] CBC W/DIFF, AUTOMATED Collected: 12/30/2017 Status: F Source: ISABEL 5:45 AM [facility] REPOSITORY TYPE CODE TESTS RESULT OUT OF [...] Lymph 0.73 Performed By: #### L100.0100 #### [facility] [address] [facility]. [place], [place], [address] BASIC METABOLIC Collected: 12/30/2017 Status: F Source: ISABEL PROFILE (BMP) 5:45 AM [facility] REPOSITORY TYPE CODE TESTS RESULT OUT OF [...] GAP 9 Performed By: #### L500.2500 #### [facility] [address] [place], [address] HISTORY AND PHYSICAL Observed: 12/29/2017 Status: F Source: ISABEL EXAM 6:50 PM [facility] REPOSITORY [facility] Medical Records Department [address] [place] [address] History and Physical 12/29/17 1729 MR#: [id number] Acct: [id number] Name: PAMELA ESPINOZA Rep #: [id number] : 1940 77 From: Gregorio Dowell MD PCP: Ashvin Cardenas MD Status: ADM IN Location: [address] History of Present Illness Date of Admission: [...] History (Last Updated 06/28/17 @ 14:58 by Ceiclia Sanchez) COLONOSCOPY Glaucoma H40.9 Heart disease I51.9 [...] BL. 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 Code Visit Inpatient E AND M: 10655 Init Hosp L3 12/29/17 1850 <Electronically signed by Gregorio Dowell MD> Date Gregorio Dowell MD Cosigner Signature: Date (if applicable) CC: Ashvin Cardenas MD; Gregorio Dowell MD Signed EMERGENCY DEPARTMENT Observed: 12/29/2017 Status: F Source: ISABEL SUMMARY 3:58 PM [facility] REPOSITORY [facility] Medical Records Department [address] [place] [address] Emergency Department Summary 12/29/17 1221 MR#: [id number] Acct: [id number] Name: PAMELA ESPINOZA Rep #: [id number] : 1940 77 From: Lupillo Cardenas MD [...] 2. Fever This note was generated with Dragon dictation software. It may contain incorrect words, [...] your Primary Care Provider. Call [facility] ([phone]) or report to the closest Emergency Room. Call 911 if necessary. 12/29/17 1558 <Electronically signed by Lupillo Cardenas MD> Date Lupillo Cardenas MD Cosigner Signature (If Indicated): Date CC: Ashvin Cardenas MD LACTIC ACID Collected: 12/29/2017 Status: F Source: ISABEL 3:49 PM [facility] REPOSITORY TYPE CODE TESTS RESULT OUT OF RANGE REFERENCE UNITS LAB L503.6005 0.4-2.0 mmol/L Normal LACTIC ACID 1.1 Performed By: #### L503.6005 #### [facility] [address] [place], [address] URINALYSIS, COMPLETE Collected: 12/29/2017 Status: F Source: ISABEL 12:25 PM [facility] REPOSITORY Order Comment: How was Urine Obtained? HAIRSPRING FABRICATION SUPERVISOR TO SPECIFY TYPE CODE TESTS RESULT OUT [...] MUCUS, URINE Performed By: #### L400.0001 #### [facility] [place], [address] Observed: 12/29/2017 Status: F Source: MICH CULTURE, URINE 12:25 PM [facility] REPOSITORY Urine Culture Culture exhibits no growth. Performed By: #### M100.0650 #### [facility] [address] [place] [address], [address] Observed: 12/29/2017 Status: F Source: MICH CULTURE, BLOOD (WB) 11:40 AM [facility] REPOSITORY BC No growth in 5 days. Performed By: #### M200.1000 #### [facility] [place], [place], [address] CHEST 1 VIEW Observed: 12/29/2017 Status: F Source: MICH (PORTABLE) 11:34 AM [facility] REPOSITORY [facility] Imaging Services [address] [place] [address] Chest 1 View (Portable) MR#: [id number] Acct: [id number] Name: PAMELA ESPINOZA Chetna Rep #: [id number] : 1940 F 77 From: Salvatore Barrios MD PCP: Ashvin Cardenas MD Status: REG ER Study: Chest 1 View (Portable) Date of Exam: 12/29/17 Exam# [id number] Ordering Dr: Lupillo Cardenas MD STUDY: X-RAY [...] CC: Lupillo Cardenas MD; Ashvin Cardenas MD Visual Aid Expert: Signed CBC W/DIFF, AUTOMATED Collected: 12/29/2017 Status: F Source: MICH 11:32 AM [facility] REPOSITORY TYPE CODE TESTS RESULT OUT OF [...] Lymph 0.95 Performed By: #### L100.0100 #### [facility] [address] [facility]. [place], [place], [address] COMPREHENSIVE METABOLIC Collected: 12/29/2017 Status: F Source: [facility] 11:32 AM [facility] REPOSITORY TYPE CODE TESTS RESULT OUT OF [...] 7 Performed By: #### L500.4050, L501.4010 #### [facility] [address] [facility] [place], [place], [address] TROPONIN-I Collected: 12/29/2017 Status: F Source: ISABEL 11:32 AM [facility] REPOSITORY TYPE CODE TESTS RESULT OUT OF RANGE REFERENCE UNITS LAB L501.4010 <0.045 ng/mL Normal 0.025 TROPONIN-I Result Comment: TROPONIN-I EXPECTED VALUES <0.045 Negative 0.045 - 0.590 Consistent with Cardiac Damage > OR = 0.600 Critical Value Not every elevated troponin is indicative of HI. These values should be used with clinical judgement in examining the patient's clinical picture for diagnosis. To establish a diagnosis of HI versus myocardial injury, there must be a demonstrated rise and/or fall in the troponin values, in addition to ischemic symptoms, EKG changes, new regional wall motion abnormality, and/or angiographical evidence. PLEASE NOTE: REFERENCE RANGES EDITED 17 Performed By: #### L500.4050, L501.4010 #### [facility] [address] [place], [place], [address] LACTIC ACID Collected: 12/29/2017 Status: F Source: MICH 11:32 AM [facility] REPOSITORY Order Comment: Yes/No query for Sepsis Lactate Rule Y TYPE CODE TESTS RESULT OUT OF RANGE REFERENCE UNITS LAB L503.6005 0.4-2.0 mmol/L Normal LACTIC ACID 2.0 Result Comment: Critical Result(s) Called at: 12:15:38 12/29/2017 by: Rubén Ma to Aftab TURCIOS Performed By: #### L503.6005 #### [facility] [address] [place], [address] AMMONIA Collected: 12/29/2017 Status: F Source: MICH 11:32 AM [facility] REPOSITORY TYPE CODE TESTS RESULT OUT OF RANGE REFERENCE UNITS LAB L503.5510 11-32 umol/L Normal AMMONIA 17.0 Performed By: #### L503.5510 #### [facility] [address] [place], [address] PROTHROMBIN TIME W/INR Collected: 12/29/2017 Status: F Source: MICH 11:32 AM [facility] REPOSITORY TYPE CODE TESTS RESULT OUT OF RANGE REFERENCE UNITS LAB L300.4150 11.7-14.9 SECONDS Normal PROTIME 14.3 LAB L300.4200 Normal INR 1.1 Performed By: #### L300.3900, L300.4310 #### [facility] [address] [place], [address] PARTIAL THROMBOPLAST Collected: 12/29/2017 Status: F Source: ISABEL TIME 11:32 AM [facility] REPOSITORY TYPE CODE TESTS RESULT OUT OF RANGE REFERENCE UNITS LAB L300.4310 24.1-36.2 Seconds Normal PTT 28.4 Performed By: #### L300.3900, L300.4310 #### [facility] [address] [place], [address] Observed: 12/29/2017 Status: F Source: MICH CULTURE, BLOOD (WB) 11:32 AM [facility] REPOSITORY BC No growth in 5 days. Performed By: #### M200.1000 #### [facility] [address] [place], [address] CBC W/DIFF, AUTOMATED Collected: 12/28/2017 Status: F Source: ISABEL 11:33 AM [facility] REPOSITORY TYPE CODE TESTS RESULT OUT OF [...] Lymph 1.54 Performed By: #### L100.0100 #### [facility] [address] [place], [address] COMPREHENSIVE METABOLIC Collected: 12/28/2017 Status: F [facility] REPOSITORY Order Comment: 'TROP' Serial specimen #1, [...] #### L500.4050, L501.3620, L501.4010, L501.5200, L501.6710 #### [facility] [address] [place], [address] CPK TOTAL, CREATINE Collected: 12/28/2017 Status: F Source: MICH KINASE 11:33 AM [facility] REPOSITORY Order Comment: 'TROP' Serial specimen #1, #2, #3, or #4: 1 TYPE CODE TESTS RESULT OUT OF RANGE REFERENCE UNITS LAB L501.3620 26-192 U/L Normal CPK TOTAL 54 Performed By: #### L500.4050, L501.3620, L501.4010, L501.5200, L501.6710 #### [facility] [address] [place], [address] TROPONIN-I Collected: 12/28/2017 Status: F Source: MICH 11:33 AM [facility] REPOSITORY Order Comment: 'TROP' Serial specimen #1, #2, #3, or #4: 1 TYPE CODE TESTS RESULT OUT OF RANGE REFERENCE UNITS LAB L501.4010 <0.045 ng/mL Normal < 0.015 TROPONIN-I Result Comment: TROPONIN-I EXPECTED VALUES <0.045 Negative 0.045 - 0.590 Consistent with Cardiac Damage > OR = 0.600 Critical Value Not every elevated troponin is indicative of HI. These values should be used with clinical judgement in examining the patient's clinical picture for diagnosis. To establish a diagnosis of HI versus myocardial injury, there must be a demonstrated rise and/or fall in the troponin values, in addition to ischemic symptoms, EKG changes, new regional wall motion abnormality, and/or angiographical evidence. PLEASE NOTE: REFERENCE RANGES EDITED 17 Performed By: #### L500.4050, L501.3620, L501.4010, L501.5200, L501.6710 #### [facility] [address] [place], [address] MAGNESIUM Collected: 12/28/2017 Status: F Source: MICH 11:33 AM [facility] REPOSITORY Order Comment: 'TROP' Serial specimen #1, #2, #3, or #4: 1 TYPE CODE TESTS RESULT OUT OF RANGE REFERENCE UNITS LAB L501.5200 1.6-2.6 mg/dL Normal MG 2.0 Performed By: #### L500.4050, L501.3620, L501.4010, L501.5200, L501.6710 #### [facility] [address] [place], [address] CRP Collected: 12/28/2017 Status: F Source: ISABEL 11:33 AM [facility] REPOSITORY Order Comment: 'TROP' Serial specimen #1, [...] #### L500.4050, L501.3620, L501.4010, L501.5200, L501.6710 #### [facility] [address] [place], [address] VITAMIN B12 Collected: 12/28/2017 Status: F Source: ISABEL 11:33 AM [facility] REPOSITORY TYPE CODE TESTS RESULT OUT OF RANGE REFERENCE UNITS LAB L503.0105 211-911 pg/mL Normal Vitamin B12 254 Performed By: #### L503.0105 #### [facility] [address] [facility] [place], [address] CHEST PA AND LATERAL Observed: 12/28/2017 Status: F Source: ISABEL 11:25 AM [facility] REPOSITORY [facility] Imaging Services [address] [place] [address] Chest PA and Lateral MR#: [id number] Acct: [id number] Name: PAMELA ESPINOZA Chetna Rep #: [id number] : 1940 F 77 From: Salvatore Barrios MD PCP: Ashvin Cardenas MD Status: REG CLI Study: Chest PA and Lateral Date of Exam: 12/28/17 Exam# [id number] Ordering Dr: RUBÉN KHALIL STUDY: X-RAY CHEST [...] , CC: Ashvin Cardenas MD; RUBÉN KHALIL Visual Aid Expert: Signed CBC W/DIFF, AUTOMATED Collected: 12/07/2017 Status: F Source: ISABEL 2:07 PM [facility] REPOSITORY TYPE CODE TESTS RESULT OUT OF [...] Lymph 2.88 Performed By: #### L100.0100 #### [facility] [address] [place], [address] LIVER PROFILE Collected: 12/07/2017 Status: F Source: ISABEL 2:07 PM [facility] REPOSITORY TYPE CODE TESTS RESULT OUT OF [...] 0.13 Performed By: #### L500.3400, L501.5100 #### [facility] [address] [place], [address] GGTP Collected: 12/07/2017 Status: F Source: ISABEL 2:07 PM [facility] REPOSITORY TYPE CODE TESTS RESULT OUT OF RANGE REFERENCE UNITS LAB L501.5100 5-55 U/L Normal GGTP 42 Performed By: #### L500.3400, L501.5100 #### [facility] [address] [place], [address] ALLERGIES ALLERGIES DATE TYPE / CODE NAME / CODE REACTION SEVERITY SOURCE 05/24/2018 Drug griseofulvin RACING HEART [place] Allergy/416 ultramicrosize/F000 AND SEVERE H/A Community 176016([facility] 359944([facility] ED CT) Repository 05/24/2018 Drug azathioprine Nausea/Vom/Juju [place] Allergy/416 sodium/[id number](R rrhea Community 477519([facility] ED CT) Repository 05/24/2018 Drug Penicillins/T293354 Hives [place] Allergy/416 476(RXNORM) [facility] 947526([facility] ED CT) Repository 05/24/2018 Drug azathioprine/A49673 Nausea/Vom/Juju [place] Allergy/416 3419(RXNORM) rrhea [facility] 811419([facility] ED CT) Repository ENCOUNTERS ENCOUNTERS ADMIT/DISCHARGE ACCOUNT NUMBER ADMITTING ENCOUNTER LOCATION SOURCE CLASS 08/02/2018 [id number] [facility] ding:MTLAB Repository 07/04/2018 [id number] [facility] ding:MFPLAB Repository 06/15/2018/06/28/20 [id number] [facility] ding:TCURoom Repository : ZKF00Guj: 2 05/25/2018/06/15/20 [id number] [facility], Inpatient Building:[address] Encounter Room: [place] [address]Bed: A [facility] Repository 05/25/2018 [id number] Ambulatory BMSBuilding: [facility] Repository 05/24/2018/05/25/20 [id number] [place], [place]patient [place] 18 Adriana Encounter [facility] ding:TU8Zviy Repository : SJ236Ufx: 1 05/24/2018 [id number] [place], Ambulatory BMSBuilding: [place] BMS.[facility] Repository 05/24/2018/05/25/20 [id number] Ambulatory BMSBuilding: [place] 18 BMS.CF.[facility] Repository 05/24/2018 [id number] [place], Ambulatory BMSBuilding: [place] Adriana BMS.[facility] Repository 05/24/2018/05/24/20 [id number] Ambulatory BMSBuilding: [place] 18 BMS.[facility] Repository 05/23/2018/05/23/20 [id number] [place], Emergency [place] 18 [facility] ding:EDRoom: Repository MS210 05/23/2018 [id number] [facility] ding:LAB Repository 04/02/2018 [id number] [facility] ding:MTLAB Repository 12/29/2017/01/02/20 [id number] [place], Inpatient [place] [address] ding:AU8Wlhl Repository : VX169Ipc: 1 12/29/2017 [id number] [place], Ambulatory BMSBuilding: [place] BMS.[facility]ly [facility] Repository 12/29/2017 [id number] [place], Ambulatory BMSBuilding: [place] BMS.[facility] Repository 12/29/2017 [id number] [place], Ambulatory BMSBuilding: [place] BMS.[facility] Repository 12/29/2017 [id number] [place], Ambulatory BMSBuilding: [place] BMS.[facility] Repository 12/28/2017 [id number] [facility] ding:MTRAD Repository 12/07/2017 [id number] [facility] ding:MTLAB Repository PAYERS PAYERS ENCOUNTER GUARANTOR PAYER SUBSCRIBER SOURCE 08/02/2018 RM Basilio [place] [id number] Insurance:MEDICARE RICHARDDOB: [id number] [address]Mif: Number: Repository [id number] (HP) Date:2018-08-02 08/02/2018 Secondary NOT GIVENUNK [place] Insurance:SELF PAY [facility] Number: Effective Repository Date:2018-08-02 07/04/2018 RM Helen Israel PAMELA [place] [id number] Insurance:MEDICARE RICHARDDOB: [facility] [id number] View [facility] Medical Center [address]Rgl: Number: Repository [id number] (HP) Date:2018-07-04 07/04/2018 Secondary NOT GIVENUNK [place] Insurance:SELF PAY [facility] Number: Effective Repository Date:2018-07-04 06/15/2018 RM JOSHUAROMERO Epps [id number] Insurance:MEDICARE RICHARDDOB: [facility] [id number] View [facility] Medical Center [address]Ayy: Number: Repository [id number] () Date:2018-06-15 06/15/2018 Secondary NOT GIVENUNK [place] Insurance:SELF PAY [facility] Number: Effective Repository Date:2018-06-15 05/25/2018 PAMELA GA[address]ES [facility] RICHARDDOB: Insurance:MEDICARE A RICHARDDOB: [place] [id number] [facility] Number: [id number] [facility], [id number] [address] [place] [address] [place] [address]Wkf: Date:Plan Name:[place] Repository [address]Kuq: [phone] ([phone] () 05/25/2018 RM DUKECorey Epps [id number] Insurance:MEDICARE RICHARDDOB: [facility] [id number] View Regional Medical Center [address]Fjw: Number: Repository [id number] () Date:2018-05-24 05/25/2018 Secondary NOT GIVENUNK [place] Insurance:SELF PAY [facility] Number: Effective Repository Date:2018-05-25 05/24/2018 RM Cervantes Primary PAMELA Basilio [place] [id number] Insurance:MEDICARE [facility] [id number] Hospital [place] [address]Onf: Number: Repository [id number] (HP) Date:2018-05-24 05/24/2018 Secondary NOT GIVENUNK [place] Insurance:SELF PAY [facility] Number: Effective Repository Date:2018-05-24 05/24/2018 RM Cervantes Primary P[place]A [place] [id number] Insurance:MEDICARE [facility]DOB[facility] [id number] Hospital [place] [address]Lby: Number: Repository [id number] (HP) Date:2018-05-24 05/24/2018 Secondary NOT GIVENUNK [place] Insurance:SELF PAY [facility] Number: Effective Repository Date:2018-05-24 05/24/2018 RM Helen Primary PAMELA Basilio [place] [id number] Insurance:MEDICARE RICHARDDOB[facility] [id number] [place] [address]Msm: Number: Repository [id number] (HP) Date:2018-05-24 05/24/2018 Secondary NOT GIVENUNK [place] Insurance:SELF PAY [facility] Number: Effective Repository Date:2018-05-24 05/24/2018 RM Cervantes Primary PAMELA Basilio [place] [id number] Insurance:MEDICARE [facility]DOB[facility] [id number] Hospital [place] [address]Jbv: Number: Repository [id number] (HP) Date:2018-05-24 05/24/2018 Secondary NOT GIVENUNK [place] Insurance:SELF PAY [facility] Number: Effective Repository Date:2018-05-24 05/24/2018 RM Cervantes Primary PAMELA Basilio [place] [id number] Insurance:MEDICARE [facility]DOB: [facility] [id number] View Regional Medical [facility] [address]Byk: Number: Repository [id number] (HP) Date:2018-05-24 05/24/2018 Secondary NOT GIVENUNK [place] Insurance:SELF PAY [facility] Number: Effective Repository Date:2018-05-24 05/23/2018 RM Cervantes Primary PAMELA [address] [id number] Insurance:MEDICARE RICHARDDOB: [facility] [id number] Hospital [place] [address]Nlj: Number: Repository [id number] (HP) Date:2018-05-23 05/23/2018 Secondary NOT GIVENUNK [place] Insurance:SELF PAY [facility] Number: Effective Repository Date:2018-05-23 05/23/2018 RM Cervantes Primary PAMELA Epps [id number] Insurance:MEDICARE [facility] [id number] View [facility] [address]Moq: Number: Repository [id number] (HP) Date:2018-05-23 05/23/2018 Secondary NOT GIVENUNK [place] Insurance:SELF PAY [facility] Number: Effective Repository Date:2018-05-23 04/02/2018 Rm Cervantes Primary PAMELA [place] [id number] Insurance:MEDICARE RICHARDDOB[facility] [id number] View Regional Medical Center [address]Jgj: Number: Repository [id number] (HP) Date:2018-04-02 04/02/2018 Secondary NOT GIVENUNK [place] Insurance:SELF PAY [facility] Number: Effective Repository Date:2018-04-02 12/29/2017 Rm Cervantes Primary PAMELA [place] [id number] Insurance:MEDICARE [facility] [id number] [place] [address]Kpe: Number: Repository [id number] (HP) Date:2017-12-29 12/29/2017 Secondary [place] GIVENUNK [place] Insurance:SELF PAY [facility] Number: Effective Repository Date:2017-12-29 12/29/2017 Rm Cervantes Primary PAMELA Bowseroster [id number] Insurance:MEDICARE [facility]ICHARDDOB[facility] [place] [facility] [place] [id number] View Regional Medical Center [address]Mlj: Number: Repository [id number] (HP) Date:2017-12-29 12/29/2017 Secondary NOT GIVENUNK [place] Insurance:SELF PAY [facility] Number: Effective Repository Date:2017-12-29 12/29/2017 Rm Cervantes Primary PAMELA Bowseroster [id number] Insurance:MEDICARE RICHARDDOB[facility] [place] [place] [id number] View Regional Medical Center [address]Fke: Number: Repository [id number] (HP) Date:2017-12-29 12/29/2017 Secondary NOT GIVENUNK [place] Insurance:SELF PAY [facility] Number: Effective Repository Date:2017-12-29 12/29/2017 Rm Cervantes Primary PAMELA Basilio [place] [id number] Insurance:MEDICARE RICHARDDOB[facility] [place] [address] [place] [id number] View Regional Medical Center [address]Vyd: Number: Repository [id number] (HP) Date:2017-12-29 12/29/2017 Secondary [place] GIV[place]UNK [place] Insurance:SELF PAY [facility] Number: Effective Repository Date:2017-12-29 12/29/2017 Rm Cervantes Primary PAMELA Basilio [place] [id number] Insurance:MEDICARE RICHARDDOB[facility] [place] [address] [place] [id number] View Regional Medical Center [address]Yse: Number: Repository [id number] (HP) Date:2017-12-29 12/29/2017 Secondary NOT GIVENUNK [place] Insurance:SELF PAY [facility] Number: Effective Repository Date:2017-12-29 12/28/2017 Rm Cervantes Primary PAMELA Basilio [place] [id number] Insurance:MEDICARE RICHARDDOB[facility] [address] [id number] View Regional Medical Center [address]Wzi: Number: Repository [id number] () Date:2017-12-28 12/28/2017 Secondary NOT GIVENUNK [place] Insurance:SELF PAY [facility] Number: Effective Repository Date:2017-12-28 12/07/2017 Rm Epps [id number] Insurance:MEDICARE [facility]DOB[facility] [id number] View Regional Medical Center [address]Qbo: Number: Repository [id number] () Date:2017-12-07 12/07/2017 Secondary NOT GIVENUNK [place] Insurance:SELF PAY [facility] Number: Effective Repository Date:2017-12-07
== END ==
PROVIDERS: Family Provider Family Medicine; PCP Family Medicine; Referring Provider Internal Medicine Gastroenterology; Visit Provider Internal Medicine Gastroenterology
DX: R94.5 Abnormal results of liver function studies (principal)
CPT/HCPCS: 36415; 80076; 82977; 85025

== ENCOUNTER → 2018-11-04 08:01 | Outpatient (CLI) | payer MEDICARE, SELFPAY ==
[2018-06-15 14:54] VITALS: BMI 20.5
[2018-11-04 10:23] LABS: Absolute Lymphocyte Count 2.81 X10^3/ul (0.83-4.51); Absolute Neutrophil Count 4.4 X10^3/uL (2.0-7.7); Basophil# 0.02 X10^3/uL; Basophil% 0.2 % (0-1); Eosinophil# 0.08 X10^3/uL; Hematocrit 44.3 % (37-47); Hemoglobin 14.2 g/dl (12.0-15.0); Lymphocyte # 2.81 X10^3/ul (4.0); Lymphocyte % 34.4 % (19-41); Mean Corp Hgb Conc 32.1 g/gl (32-36); Mean Corpuscular Hgb 30.3 pg (27.0-32.0); Mean Corpuscular Volume 94.5 fL (81-99); Mean Platelet Vol. 10.5 fl (6.2-12.0); Monocyte# 0.78 X10^3/uL; Monocyte% 9.5 % (0-10); Neutrophil # 4.44 X10^3/uL (2.7-7.7); Neutrophil % 54.4 % (47-70); Platelet Count 178 K/mm3 (150-450); RBC Distribution Width CV 15.3 % (11.6-14.6); RBC Distribution Width SD 52.9 fl (35.1-43.9); Red Blood Count 4.69 M/mm3 (4.2-5.4); White Blood Count 8.2 K/mm3 (4.4-11.0)
[2018-11-04 10:26] LABS: POSITIVE COUNT NO; POSITIVE DIFFERENTIAL NO; POSITIVE MORPHOLOGY NO
[2018-11-04 10:47] LABS: AST(SGOT) 24 U/L (15-37); Alanine Aminotransfer ALT/SGPT 29 U/L (13-56); Albumin, Serum 3.3 g/dL (3.2-5.0); Alkaline Phosphatase 79 U/L (45-117); Bilirubin, Direct 0.07 mg/dL (0.00-0.30); GGTP 41 U/L (5-55); Globulin 4.7 g/dL (2.2-4.2)
== END ==
PROVIDERS: Family Provider Family Medicine; PCP Family Medicine; Visit Provider Internal Medicine Gastroenterology
DX: R94.5 Abnormal results of liver function studies (principal)
CPT/HCPCS: 36415; 80076; 82977; 85025

== ENCOUNTER → 2019-01-15 11:45 | Outpatient (CLI) | payer MEDICARE, SELFPAY ==
[2018-06-15 14:54] VITALS: BMI 20.5
[2019-01-15 14:48] LABS: Absolute Neutrophil Count 6.2 X10^3/uL (2.0-7.7); Basophil# 0.02 X10^3/uL; Basophil% 0.2 % (0-1); Hematocrit 45.2 % (37-47); Hemoglobin 14.8 g/dl (12.0-15.0); Lymphocyte % 26.5 % (19-41); Mean Corp Hgb Conc 32.7 g/gl (32-36); Mean Corpuscular Hgb 30.8 pg (27.0-32.0); Mean Corpuscular Volume 94.2 fL (81-99); Mean Platelet Vol. 10.5 fl (6.2-12.0); Monocyte# 1.16 X10^3/uL; Monocyte% 11.4 % (0-10); Neutrophil # 6.17 X10^3/uL (2.7-7.7); Neutrophil % 60.5 % (47-70); Platelet Count 179 K/mm3 (150-450); RBC Distribution Width CV 15.4 % (11.6-14.6); RBC Distribution Width SD 52.7 fl (35.1-43.9); White Blood Count 10.2 K/mm3 (4.4-11.0)
[2019-01-15 14:56] LABS: Prothrombin Time (Protime)PT. 13.4 SECONDS (11.7-14.9)
[2019-01-15 14:58] LABS: POSITIVE COUNT NO; POSITIVE DIFFERENTIAL NO; POSITIVE MORPHOLOGY NO
[2019-01-15 15:02] LABS: ALB/GLOB Ratio 0.8 RATIO (0.9-2.4); AST(SGOT) 27 U/L (15-37); Alanine Aminotransfer ALT/SGPT 36 U/L (13-56); Albumin, Serum 3.6 g/dL (3.2-5.0); Alkaline Phosphatase 72 U/L (45-117); Anion Gap 10 (5-15); BUN 14 mg/dL (7-18); BUN/Creat Ratio 17.1 RATIO (10-20); Calcium,Total 9.1 mg/dL (8.5-10.1); Chloride 100 mmol/L (98-107); Creatinine, Serum 0.82 mg/dL (0.55-1.02); EST Glomerular Filtration Rate 72 mL/min (>60); Est Glom Filt Rate - Afr Amer 87 mL/min (>60); Globulin 4.8 g/dL (2.2-4.2); Glucose 81 mg/dL (74-106); Potassium 3.5 mmol/L (3.5-5.1); Protein, Total 8.4 g/dL (6.4-8.2); Sodium Level 138 mmol/L (136-145)
[2019-01-19 16:21] LABS: AFP, Tumor Marker 1.1 ng/mL (0.0-8.3)
== END ==
PROVIDERS: Internal Medicine Gastroenterology; Family Provider Family Medicine; PCP Family Medicine
DX: K75.4 Autoimmune hepatitis (principal); E27.40 Unspecified adrenocortical insufficiency
CPT/HCPCS: 36415; 80053; 82105; 82533; 85025; 85610

== ENCOUNTER → 2019-04-23 13:21 | Outpatient (CLI) | payer MEDICARE, SELFPAY ==
[2018-06-15 14:54] VITALS: BMI 20.5
[2019-04-23 13:50] LABS: Absolute Lymphocyte Count 1.88 X10^3/uL (0.83-4.51); Absolute Neutrophil Count 5.5 X10^3/uL (2.0-7.7); Basophil# 0.02 X10^3/uL; Basophil% 0.2 % (0-1); Eosinophil# 0.07 X10^3/uL; Eosinophils% 0.8 % (0-5); Hematocrit 45.9 % (37-47); Hemoglobin 14.9 g/dL (12.0-15.0); Lymphocyte # 1.88 X10^3/ul (4.0); Lymphocyte % 22.4 % (19-41); Mean Corp Hgb Conc 32.5 g/dL (32-36); Mean Corpuscular Hgb 30.7 pg (27.0-32.0); Mean Corpuscular Volume 94.4 fL (81-99); Mean Platelet Vol. 9.9 fl (6.2-12.0); Monocyte# 0.85 X10^3/uL; Monocyte% 10.1 % (0-10); NRBC Flagged by Analyzer 0 % (0-5); Neutrophil % 65.7 % (47-70); Platelet Count 183 K/mm3 (150-450); RBC Distribution Width CV 14.7 % (11.6-14.6); RBC Distribution Width SD 51.3 fl (35.1-43.9); Red Blood Count 4.86 M/mm3 (4.2-5.4); White Blood Count 8.4 K/mm3 (4.4-11.0)
[2019-04-23 14:22] LABS: ALB/GLOB Ratio 0.7 RATIO (0.9-2.4); AST(SGOT) 25 U/L (15-37); Alanine Aminotransfer ALT/SGPT 33 U/L (13-56); Albumin, Serum 3.5 g/dL (3.2-5.0); Alkaline Phosphatase 77 U/L (45-117); Anion Gap 10 (5-15); BUN 17 mg/dL (7-18); BUN/Creat Ratio 19.9 RATIO (10-20); Calcium,Total 8.9 mg/dL (8.5-10.1); Chloride 98 mmol/L (98-107); Creatinine, Serum 0.86 mg/dL (0.55-1.02); EST Glomerular Filtration Rate 68 mL/min (>60); Est Glom Filt Rate - Afr Amer 82 mL/min (>60); Globulin 4.8 g/dL (2.2-4.2); Glucose 111 mg/dL (74-106); LDH 200 U/L (84-246); Potassium 3.9 mmol/L (3.5-5.1); Protein, Total 8.3 g/dL (6.4-8.2); Sodium Level 137 mmol/L (136-145)
[2019-04-24 16:08] LABS: Albumin 3.4 g/dL (2.9-4.4); Alpha-1-Globulins 0.3 g/dL (0.0-0.4); Free Kappa Light Chains 29.3 mg/L (3.3-19.4); Free Lambda Light Chains 21.8 mg/L (5.7-26.3); Gamma Globulin 2.1 g/dL (0.4-1.8); Immunoglobulin A 197 mg/dL (64-422); Immunoglobulin G 2108 mg/dL (700-1600); Immunoglobulin M 31 mg/dL (26-217); PROEL- TOTAL PROTEIN 7.9 g/dL (6.0-8.5)
== END ==
PROVIDERS: Family Provider Family Medicine; PCP Family Medicine; Referring Provider Internal Medicine Medical Oncology; Visit Provider Internal Medicine Medical Oncology
DX: D47.2 Monoclonal gammopathy (principal)
CPT/HCPCS: 36415; 80053; 82784; 83615; 83883; 84165; 85025; 86334

== ENCOUNTER 2019-06-04 17:46 | Inpatient (IN) | payer MEDICARE, SELFPAY ==
[2019-04-29 14:11] VITALS: BMI 21.6
[2019-06-04 17:48] VITALS: BP 124/64; PULSE 113; RESP 18; TEMP 37.3; O2SAT 97; BMI 22.1
--- NOTE | 2019-06-04 18:14 | CT_ITS ---
STUDY: CT ABDOMEN AND PELVIS WITHOUT CONTRAST REASON FOR EXAM: Female, 79 years old. N/V/D X 3 DAYS, FEVER, HX OF DIVERTICULITIS, GB REMOVED, MASS ON HIP REMOVED, HEPATITIS, LUPUS, CDIFF, COLON SURGERY RADIATION DOSAGE (If Supplied By Facility): CTDIvol = ( 6.04 ) mGy, DLP = ( 258.20 ) mGycm TECHNIQUE: Transaxial images were obtained from the dome of the diaphragm to the symphysis pubis without oral contrast, and without intravenous contrast. Sagittal and coronal images were reconstructed. Individualized dose optimization techniques were used for this CT. COMPARISON: CT of abdomen and pelvis dated June 28, 2017 FINDINGS: The visualized lung bases are unremarkable. Normal liver. No intrahepatic biliary duct dilatation or liver mass. There is surgical suture material in the gallbladder fossa consistent with a prior cholecystectomy. Normal spleen. There are pancreatic calcifications in the distribution of the ducts consistent with chronic pancreatitis. Normal bilateral adrenal glands. Normal right kidney. Normal left kidney. . No hydronephrosis or renal masses. No large stones. Normal visualized stomach. Normal small intestine. There are multiple colonic diverticula consistent with diverticulosis. No bowel dilatation or obstruction. No free air or free fluid. The appendix is visualized and appears normal. There is diffuse atherosclerotic calcification of the abdominal aorta, without a demonstrated aneurysm. Normal inferior vena cava. Normal retroperitoneum. Normal urinary bladder. Stable appearance of the uterus. A small calcified fibroid is present. Left adnexal surgical clips are present. Normal abdominal wall. There are diffuse degenerative changes of the visualized lumbar spine. CT/Abdomen/Pelvis without Cont IMPRESSION: 1. Extensive colonic diverticulosis. No visualized acute process on this study 2. Chronic pancreatitis. Electronically Signed: Glen Goss MD at 19:11 EST , Service support ,
[2019-06-04 18:27] LABS: Absolute Lymphocyte Count 2.01 X10^3/uL (0.83-4.51); Absolute Neutrophil Count 6.2 X10^3/uL (2.0-7.7); Basophil# 0.04 X10^3/uL; Basophil% 0.4 % (0-1); Eosinophil# 0.08 X10^3/uL; Eosinophils% 0.8 % (0-5); Hematocrit 49.7 % (37-47); Hemoglobin 16.3 g/dL (12.0-15.0); Lymphocyte # 2.01 X10^3/ul (4.0); Lymphocyte % 21.2 % (19-41); Mean Corp Hgb Conc 32.8 g/dL (32-36); Mean Corpuscular Hgb 30.7 pg (27.0-32.0); Mean Corpuscular Volume 93.6 fL (81-99); Mean Platelet Vol. 10.1 fl (6.2-12.0); Monocyte# 1.04 X10^3/uL; NRBC Flagged by Analyzer 0 % (0-5); Neutrophil # 6.21 X10^3/uL (2.7-7.7); Neutrophil % 65.5 % (47-70); Platelet Count 172 K/mm3 (150-450); RBC Distribution Width CV 14.5 % (11.6-14.6); RBC Distribution Width SD 49.8 fl (35.1-43.9); Red Blood Count 5.31 M/mm3 (4.2-5.4); White Blood Count 9.5 K/mm3 (4.4-11.0)
[2019-06-04] MEDS: Ondansetron 4 MG/2 ML Vial IV (18:28)
[2019-06-04] MEDS: 0.9% Normal Saline 1,000 ML 1000 ML IV (18:28)
[2019-06-04 18:42] LABS: Anion Gap 13 (5-15); BUN 9 mg/dL (7-18); BUN/Creat Ratio 9.5 RATIO (10-20); Chloride 96 mmol/L (98-107); Creatinine, Serum 0.95 mg/dL (0.55-1.02); EST Glomerular Filtration Rate 60 mL/min (>60); Est Glom Filt Rate - Afr Amer 73 mL/min (>60); Estimated Creatinine Clearance 36.45 ml/min; Glucose 102 mg/dL (74-106); Lipase 63 U/L (73-393); Potassium 3.5 mmol/L (3.5-5.1); Sodium Level 133 mmol/L (136-145)
[2019-06-04 18:46] LABS: Lactic Acid 1.5 mmol/L (0.4-2.0)
[2019-06-04 19:18] LABS: Red Blood Cells-Urine 0 SEEN /hpf (0-5)
[2019-06-04 19:22] LABS: Color, Urine Yellow (Yellow); Glucose, Dipstick Normal (Normal); Leukocyte Esterase-Dipstick 500 /ul (Negative); Nitrite-Dipstick Negative (Negative); Occult Blood-Urine 25 /ul (Negative); Protein-Dipstick 30 mg/dl (Negative); Specific Gravity, Urine 1.025 (1.002-1.030); Urine Clarity Sl. Cloudy (Clear); Urine Urobilinogen 1 mg/dl (Normal)
[2019-06-04 19:27] LABS: Urine Bilirubin Dipstick 1 mg/dL (Negative)
[2019-06-04 19:28] LABS: Ketone-Dipstick 150 mg/dl (Negative)
[2019-06-04 19:31] LABS: White Blood Cells 10-25 SEEN /hpf (0-5)
[2019-06-04 19:32] LABS: Bacteria 2+ /hpf (None Seen); Mucous, Urine 2+ /hpf (<or=2+); Squamous Epithelial Cells - UA 5-10 SEEN /hpf (5-10)
--- NOTE | 2019-06-04 19:59 | ED.DCSUM_ITS ---
- ER Visit Summary Date of Service: 06/04/19 Chief Complaint: [Vomiting and diarrhea] History of Present Illness: The patient is a 79 F [presents the emergency department 3-day history of vomiting and diarrhea. Patient also complaining of some diffuse abdominal discomfort. Patient has had subjective fever at home. Patient denies urinary symptoms. Patient was seen by her primary care physician today in the office and referred to the ER for further evaluation. Patient has history of hypertension, high cholesterol, GI bleed, adrenal insufficiency, lupus, and hypothyroidism. Patient has had prior cholecystectomy. Patient had prior tubal ligation.] She generally feels weak. Physical Examination: [HEENT-PERRLA, EOMI. Cranial nerves II through XII grossly intact. TMs clear. Mucous membranes moist. No adenopathy. Cardiovascular-regular rate and rhythm without murmur or ectopy Lungs-clear to auscultation, chest wall stable without crepitus or subcu emphysema Abdomen-normoactive bowel sounds. Abdomen soft. Patient has some mild tenderness over the right upper quadrant and epigastric region. There is no rebound, rigidity, or perineal signs. Extremities-intact ?4, normal range of motion, normal pulses, atraumatic] Test Results: [CBC with differential obtained showed a white count of 9.5, hemoglobin 16, hematocrit 50, plates 172. Chemistries unremarkable. Urinalysis was positive for 500 leukocyte esterase and 10-25 WBCs as well as +2 bacteria. Lactate was normal 1.5. CT scan of the abdomen pelvis was normal.] Emergency Department Course and Treatment: [Given a liter normal same fluid bolus and Zofran 4 mg IV. Patient will be given Rocephin 1 g IV.] Treatment Plan: [Admit for IV hydration and antibiotics for UTI.] Disposition: [Admit] Impression: [Viral gastroenteritis UTI Generalized weakness] This note was generated with [employer] Northeast[employer] software. It may contain incorrect words, spelling, and punctuation that were not noted in review of the chart prior to signing ED Disposition - Plan for ED Patient: Referrals: Ashvin Cardenas MD [Primary Care Provider] -
--- NOTE | 2019-06-04 20:14 | HP.PCM_ITS ---
Problem List (1) Sepsis Status: Acute Qualifiers: Sepsis type: sepsis due to unspecified organism Severe sepsis acute organ dysfunction type: unspecified Severe sepsis shock status: without septic shock (2) Gastroenteritis Status: Acute (3) Clostridioides difficile infection Status: Suspected (4) UTI (urinary tract infection) Status: Acute Qualifiers: Urinary tract infection type: site unspecified Hematuria presence: without hematuria Qualified Code(s): N39.0 - Urinary tract infection, site not specified (5) HTN (hypertension) Status: Chronic Qualifiers: Hypertension type: essential hypertension Qualified Code(s): I10 - Essential (primary) hypertension (6) Adrenal insufficiency Status: Chronic (7) Hyperlipidemia Status: Chronic Qualifiers: Hyperlipidemia type: unspecified Qualified Code(s): E78.5 - Hyperlipidemia, unspecified (8) Lupus Status: Chronic Qualifiers: Systemic lupus erythematosus type: unspecified Systemic lupus erythematosus organ involvement: unspecified (9) Hypothyroidism Status: Chronic Qualifiers: Hypothyroidism type: unspecified Qualified Code(s): E03.9 - Hypothyroidism, unspecified (10) Monoclonal gammopathies Status: Chronic (11) Lupus Status: Chronic Qualifiers: Systemic lupus erythematosus organ involvement: unspecified (12) Hypertension Status: Chronic Qualifiers: Hypertension type: essential hypertension Qualified Code(s): I10 - Esse ntial (primary) hypertension (13) Autoimmune hepatitis Status: Chronic History of Present Illness Date of Admission: 06/04/19 Chief Complaint: N/V/D x 3 days The patient is a 79 y/o F w/ PMHx: Hypothyroidism, Autoimmune Hepatitis, Monoclonal Gammopathy, Lupus, Fe Deficiency Anemia who presents to the [facility] ED on 06/04/19 with history of onset intractable nausea ongoing for the last 3 days with occasional emesis, unable to tolerate oral intake with loose stools range between 3-5 times daily although appeared to have been lessening with associated fatigue and malaise as well as abdominal cramping discomfort, worse with emesis as well as with bowel movements, worse bilateral upper quadrants with PCP evaluation on day of ED presentation and referral to ED for evaluation. Patient admitted to subjective fever and chills at home. She denied any concurrent urinary symptoms including dysuria, frequency or hesitancy but difficult to ascertain as decreased oral intake with decreased output as a result. Work-up in the ED included T 99.2, heart rate 113, BP 124/64, respiratory rate 18, 97% on room air, CBC with WC 9.5, hemoglobin 16.3, platelet 172 with mild increased granulocytes and increased monocytes, BMP with sodium 133, chloride 96, lactic acid 1.5, lipase 63, analysis with notable dehydration with [place] gravity 1.025, protein 30, ketones 150, occult blood 25, negative nitrite, leukocyte esterase 500, WBC 10-25, squamous epithelial cells 5-10 with 2+ bacteria, CT abdomen and pelvis with extensive colonic diverticulosis with no acute intra- abdominal process, evidence chronic pancreatitis. In the ED patient administered normal saline and Zofran as well as Rocephin. Past Medical History Past Medical History (Chronic Problems): Chronic Problems (Last Reviewed 04/29/19 @ 14:10 by Elizabeth Jc) Adrenal insufficiency (Chronic) Hyperlipidemia (Chronic) Lupus (Chronic) Glaucoma (Chronic) HTN (hypertension) (Chronic) Hypothyroidism (Chronic) Monoclonal gammopathies (Chronic) Lupus (Chronic) Hypertension (Chronic) Autoimmune hepatitis (Chronic) Medical History: Medical History (Last Reviewed 04/29/19 @ 14:10 by Elizabeth Jc) Rectal bleeding (Acute) K62.5 COLONOSCOPY Glaucoma H40.9 Heart disease I51.9 History of left heart catheterization (LHC) Z98.890 Hyperlipidemia E78.5 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 Tachycardia R00.0 Allergies griseofulvin ultramicrosize [From Priti-PEG (ultramicrosize)] Allergy (Severe, Verified 06/04/19 17:47) RACING HEART AND SEVERE H/A azathioprine [From Imuran] Adverse Reaction (Severe, Verified 06/04/19 17:47) Nausea/Vom/Diarrhea azathioprine sodium [From Imuran] Adverse Reaction (Severe, Verified 06/04/19 17:47) Nausea/Vom/Diarrhea Penicillins Adverse Reaction (Severe, Verified 06/04/19 17:47) Hives Home Medications: Ambulatory Orders Medication Instructions Recorded Bimatoprost [Lumigan Opthalmic] 1 drp EACH EYE QHS 06/23/17 Brimonidine 0.15% [Alphagan P 1 drp EACH EYE BID 06/23/17 0.15%] Budesonide [Budesonide EC] 3 mg PO DAILY 06/23/17 Hydroxychloroquine [Plaquenil] 200 mg PO DAILYCM 06/23/17 Levothyroxine Sodium [Synthroid] 75 mcg PO DAILY 06/23/17 Timolol 0.5% [Timoptic] 1 drp EACH EYE DAILY 06/23/17 Hydrocortisone [Cortef] 10 mg PO DAILYCM #30 tablet 06/21/18 Metoprolol Succinate [Toprol Xl] 50 mg PO BID 06/04/19 Potassium Chloride 10 meq PO DAILY 06/04/19 Surgical History: Surgical History (Last Reviewed 04/29/19 @ 14:10 by Elizabeth Jc) H/O cataract extraction Z98.49 H/O tubal ligation Z98.51 Hx of cholecystectomy Z98.890, Z90.49 h/o mass removed from hip Surgical History: cataract, cholecystectomy, - - D+C x 2, BLTL, sinus cyst removal BL. 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 Denies: Weight Change HEENT: Denies: Head Aches, Sinus Congestion, Sinus Drainage Cardiovascular: Reports: Light Headedness. Denies: Chest Pain, Chest Pressure, Chest Tightness, Orthopnea, Palpitations Respiratory: Denies: Cough, Shortness of breath at rest, Sputum production Gastrointestinal: Reports: Abdominal Pain, Diarrhea, Nausea, Vomiting Genitourinary: Denies: Dysuria Musculoskeletal: Reports: Joint Pain. Denies: Joint Tenderness Skin: Denies: Rash, Wounds Neurological: Denies: Numbness, Tingling, Focal weakness Psychiatric: Denies: Anxiety, Depression, Homicidal Ideations, Suicidal Ideations Hematologic/ Lymphatic: Reports: Easy Bruising, Easy Bleeding VTE Information - Inpt Only VTE Present on Admission: No VTE Mechan Device Prophylaxis: SCD's Patient Problems: Active and Suspected Problems (Last Reviewed 04/29/19 @ 14:10 by Elizabeth Jc) Sepsis (Acute) Gastroenteritis (Acute) Clostridioides difficile infection (Suspected) UTI (urinary tract infection) (Acute) Subjective: Seated upright in ED bed, fatigued, currently still mild nausea. Objective: Physical Examination: General: awake, alert, oriented x 3 and cooperative, seated upright in ED bed, fatigued, mildly uncomfortable appearing, notes still nauseous. Skin: normal color, turgor, no icterus, cyanosis. HEENT: AT/NC, EOMI, PERRLA, dry MM, no carotid bruits or JVD noted. Lungs: CTA bilaterally, moderate effort, moderate decrease BL bases, no rales, ronchi or wheezing. Heart: Tachycardic with regular rhythm; no gallop, rub audible. Abdomen: soft, mild generalized discomfort to the abdomen, worst with palpation of the left side upper and lower, mildly hyperactive bowel sounds, mildly distended, no HSM but difficult to assess given discomfort. Extremities: no cyanosis, clubbing, or edema. Neurological: patient awake, alert, oriented x 3; cognitive function intact; pupils equally reactive to light and accomodation; cranial nerves II-XII grossly normal, moving all 4 extremities, no focal deficits, strength severely globally decreased secondary to acute presentation. Psychiatric: affect appears flat, fatigued, no acute evidence of depressive or anxiety feelings. - Physical Exam Vitals/I&O's: Vital Signs Temp Pulse Resp BP Pulse Ox 99.2 F H 113 H 18 124/64 H 97 06/04/19 17:48 06/04/19 17:48 06/04/19 17:48 06/04/19 17:48 06/04/19 17:48 Oxygen Delivery Method Room Air Weight: 106 lb Body Mass Index (BMI) 22.1 Laboratory Results 06/04/19 18:15: WBC 9.5, RBC 5.31, Hgb 16.3 H, Hct 49.7 H, MCV 93.6, MCH 30.7, MCHC 32.8, RDW Std Deviation 49.8 H, RDW Coeff of Samreen 14.5, Plt Count 172, MPV 10.1, Immature Gran % (Auto) 1.100 H, Neut % (Auto) 65.5, Lymph % (Auto) 21.2, Butler % (Auto) 11.0 H, Eos % (Auto) 0.8, Baso % (Auto) 0.4, Absolute Neuts (auto) 6.2, Absolute Lymphs (auto) 2.01, Nucleated RBC % 0 06/04/19 18:15: Sodium 133 L, Potassium 3.5, Chloride 96 L, Carbon Dioxide 24.0, Anion Gap 13, BUN 9, Creatinine 0.95, Estim Creat Clear Calc 36.45, Est GFR (MDRD) Af Amer 73, Est GFR (MDRD) Non-Af 60, BUN/Creatinine Ratio 9.5 L, Glucose 102, Calcium 9.0, Lipase 63 L 06/04/19 18:15: Lactic Acid 1.5 06/04/19 19:10: Urine Color Yellow, Urine Clarity Sl. Cloudy, Urine pH 5.0, Ur Specific [place] 1.025, Urine Protein 30 H, Urine Glucose (UA) Normal, Urine Ketones 150 H, Urine Occult Blood 25 H, Urine Nitrite Negative, Urine Bilirubin 1 H, Urine Urobilinogen 1 H, Ur Leukocyte Esterase 500 H, Urine RBC 0 SEEN, Urine WBC 10-25 SEEN, Ur Squamous Epith Cells 5-10 SEEN, Urine Bacteria 2+, Urine Mucus 2+ Assessment/Plan All Active Problems (Last Reviewed 04/29/19 @ 14:10 by Elizabeth Jc) Gastrointestinal bleeding, lower (Acute) 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 difficile colitis (Resolved) Nonhealing nonsurgical wound (Resolved) Shingles (Resolved) Traumatic open wound of right lower leg (Resolved) The patient is a 79 y/o F w/ PMHx: Hypothyroidism, Autoimmune Hepatitis, Monoclonal Gammopathy, Lupus, Fe Deficiency Anemia who presents to the [facility] ED on 06/04/19 with history of onset intractable nausea, emesis, abdominal discomfort and loose stools x 3 days with subjective fever, chills. 1. Acute Sepsis secondary to N/V/D, ? Viral Gastroenteritis versus secondary to #2 versus Acute C-difficile Colitis with prior history: Febrile, tachycardic, UTI, Gastroenteritis, possibly C-diff as sources. Will admit to MS, continue hydration, will obtain c diff, stool cx with repeat AM CBC, given prior history of c-diff infection and presentation will initiate on oral vancomycin with discontinuation if negative assay especially given concurrently noted concerning UA, currently maintained on IV rocephin as noted #2, maintain on aggressive lactobacillus regimen, Anti-emetics, pain regimen PRN, fall and aspiration precautions, PT/OT, CM consultations for discharge planning. 2. Acute Urinary Tract Infection: UA upon ED evaluation remarkable, pending UCx, continue IVFs, monitor I/Os, continue IV Rocephin w/ transition as able pending sensitivities and speciation. 3. Hypertension: Continue home regimen including metoprolol, PRN hydralazine. 4. Lupus: We will continue patient home Plaquenil regimen. 5. Hypothyroidism: Continue home synthroid regimen. 6. Adrenal insufficiency: We will continue patient home Cortef regimen. 7. DVT prophylaxis: SCDs, Lovenox. 8. CODE status: Patient son present and is healthcare power of deputy attorney general. Living will is not in place but encourage set up. Discussed CODE status at length including difference between FULL code, DNR-CCA and DNR-CC status. Following discussions about the differences in these status, requested DNR-CCA, no intubation status. Advanced Care Planning Face to Face Time: 16 minutes. Code Visit Inpatient E&M: 23873 Init Hosp L3 Procedures: 23985 Advncd Care Plan 30 Min
[2019-06-04 21:24] VITALS: BMI 19.1
[2019-06-04 21:43] VITALS: BP 153/59; PULSE 119; RESP 16; TEMP 37.9; O2SAT 94
[2019-06-04 21:54] LABS: Magnesium 1.9 mg/dL (1.6-2.6)
[2019-06-04] MEDS: Famotidine 20 MG Tablet PO (23:02)
[2019-06-04] MEDS: Ceftriaxone 1 GM/50 ML BAG IV (23:04)
[2019-06-04 23:05] VITALS: PULSE 119
[2019-06-04] MEDS: Metoprolol(XL)Succ 50 MG Tablet PO (23:05)
[2019-06-04] MEDS: proMETHazine 25 MG/ML Syringe 6.25 MG IV (23:12)
[2019-06-04] MEDS: BRIMONIDINE 0.15% 5 ML Bottle 1 DRP EACH EYE (23:18)
[2019-06-04] MEDS: Latanoprost 0.005% 1 Bottle 1 DRP EACH EYE (23:26)
[2019-06-05] VITALS (11 sets, daily range): BP systolic 121–137; BP diastolic 58–68; PULSE 88–98; RESP 16–18; TEMP 36.6–38.7; O2SAT 91–96
[2019-06-05] MEDS: 0.9% Saline Lock 10 ML Syringe IV (00:08)
[2019-06-05] MEDS: 0.9% Normal Saline 1,000 ML 125 ML IV ×3 (00:38→20:06)
[2019-06-05] MEDS: Acetaminophen 325 MG Tablet 650 MG PO (00:41)
[2019-06-05] MEDS: 0.9% Normal Saline 1,000 ML 999 ML IV (02:07)
[2019-06-05 07:57] LABS: Absolute Lymphocyte Count 1.72 X10^3/uL (0.83-4.51); Absolute Neutrophil Count 3.9 X10^3/uL (2.0-7.7); Basophil# 0.02 X10^3/uL; Basophil% 0.3 % (0-1); Eosinophil# 0.07 X10^3/uL; Eosinophils% 1.1 % (0-5); Hematocrit 41.7 % (37-47); Hemoglobin 13.4 g/dL (12.0-15.0); Lymphocyte # 1.72 X10^3/ul (4.0); Lymphocyte % 26.3 % (19-41); Mean Corp Hgb Conc 32.1 g/dL (32-36); Mean Corpuscular Hgb 30.3 pg (27.0-32.0); Mean Corpuscular Volume 94.3 fL (81-99); Monocyte# 0.78 X10^3/uL; Monocyte% 11.9 % (0-10); NRBC Flagged by Analyzer 0 % (0-5); Neutrophil # 3.86 X10^3/uL (2.7-7.7); Neutrophil % 58.9 % (47-70); Platelet Count 141 K/mm3 (150-450); RBC Distribution Width CV 14.7 % (11.6-14.6); RBC Distribution Width SD 51.4 fl (35.1-43.9); Red Blood Count 4.42 M/mm3 (4.2-5.4); White Blood Count 6.6 K/mm3 (4.4-11.0)
[2019-06-05 08:18] LABS: Anion Gap 9 (5-15); BUN 7 mg/dL (7-18); BUN/Creat Ratio 12.2 RATIO (10-20); Calcium,Total 7.6 mg/dL (8.5-10.1); Chloride 109 mmol/L (98-107); Creatinine, Serum 0.58 mg/dL (0.55-1.02); EST Glomerular Filtration Rate 107 mL/min (>60); Est Glom Filt Rate - Afr Amer 130 mL/min (>60); Estimated Creatinine Clearance 29.89 ml/min; Glucose 84 mg/dL (74-106); Potassium 3.4 mmol/L (3.5-5.1); Sodium Level 138 mmol/L (136-145)
--- NOTE | 2019-06-05 09:30 | CASEMGMT ---
RN CM PRINT MACHINE OPERATOR CM to room to meet with patient for initial transition planning/care coordination assessment. RN BOOKER introduced self and role at [facility]. Pt voices understanding and consents to assessment at this time. Pt resting in bed in no distress at this time. DaughterBarbara, @ bedside. Pt is A/O at this time and answers all questions appropriately. Care providers, pharmacy, and demographics verified at this time. PCP: Dr Ashvin Cardenas Specialists: Dr Bonilla @ [facility] for RA, Dr Hampton @ [place]/GI, review analyst Dr kinsey, Dr Mays organizational consultant, Dr Vasquez Marketing Executive in [facility]. Preferred Pharmacy: [facility] Insurance: MCR A and B. does not have supplemental insurance Prescription Benefit: [employer] Rx Living Will/HPOA: has both LW and HCPOA, but filled them out a long time ago and is not certain who is listed. She thinks it is her . Made aware she can complete new/updated paperwork while @ [facility]. Pt states she does not wish to at this time. Given Conveyor Installer Rac Card and made aware can make appt as an out-pt if she chooses to do so in the future. LNOK: , 4 adult living children. Living Arrangements: Lives with her . had AAA rupture about a year ago, was hospitalized for an extended period of time and is home now. They have caregivers come into the home to assist with his care and also do some houswork. They are able to assist pt as needed as well. Per pt and daughterBarbara, either a caregiver or one of pt's adult children is in the home to assist almost 24/. Transportation: Barbara usually takes pt to doctor appts. Other children assist with transportation as well. Denies transportation concerns. DME: Has a handicap-accessible bathroom (for her ). Has a walker available but does not use. Pt states no need for further DME at this time. HHC/SNF: Hx TCU last year. No hx HHC. Denies wanting HHC or OP therapy @ discharge. Made aware that if she chooses, in the future, that she would like additional therapy, to discuss with her PCP. PT/OT evals pending. Pt wishes to return home and states has no concerns with going home at time of discharge. CM to follow for any discharge planning/needs. Pt voices no further concerns/needs at this time. Advised pt to ask for CM if any further questions/concerns/needs arise. Voices understanding. PLAN: Home w/family support and discharge plans in place. Khanh STAPLESN RN CM
--- NOTE | 2019-06-05 09:31 | PCM.PN.HOSP ---
Patient Problems: Active and Suspected Problems (Last Reviewed 04/29/19 @ 14:10 by Elizabeth Jc) Sepsis (Acute) Gastroenteritis (Acute) Clostridioides difficile infection (Suspected) UTI (urinary tract infection) (Acute) Subjective: Follow-up on nausea, vomiting, diarrhea Patient was seen and examined. She feels improved except she feels weak. She has a poor appetite. Denies fever or chills. Has had 1 bowel movement. No nausea or vomiting. Vitals/I&O's: Vital Signs Temp Pulse Resp BP Pulse Ox 98 F 88 18 126/63 H 96 06/05/19 05:26 06/05/19 05:26 06/05/19 05:26 06/05/19 05:26 06/05/19 07:40 Oxygen Flow Rate (L/min) 2 Oxygen Delivery Method Nasal Cannula Weight: 41.5 kg Body Mass Index (BMI) 19.1 Intake and Output for Last 24 Hours 06/03/19 06/04/19 06/05/19 23:59 23:59 23:59 Intake Total 1000 / 1039 2052.50 Output Total 55 / 55 Balance 1000 / 1039 1997.50 / 1997.50 General: Alert, Oriented x3, Cooperative, No apparent distress HEENT: Atraumatic, PERRLA, EOMI, Normocephalic Oral: Moist Mucosa Neck: Supple Lungs: Clear to auscultation, Normal air movement Cardiovascular: Regular rate, Regular Rhythm, Normal S1, Normal S2, No murmurs Abdomen: Bowel Sounds Present, Soft, Non Tender, Non-Distended, No Hepato-splenomegaly Extremities: No edema Skin: No rashes Musculoskeletal: No Tenderness to Palpation of Joints or Extremities Lymphatic: No Cervical, Supraclavicular, or Inguinal Adenopathy Neurological: Cranial nerves II-XII grossly intact, Neuro grossly intact Psych/Mental Status: Normal Affect, Appropriate Laboratory Results 06/04/19 18:15: WBC 9.5, RBC 5.31, Hgb 16.3 H, Hct 49.7 H, MCV 93.6, MCH 30.7, MCHC 32.8, RDW Std Deviation 49.8 H, RDW Coeff of Samreen 14.5, Plt Count 172, MPV 10.1, Immature Gran % (Auto) 1.100 H, Neut % (Auto) 65.5, Lymph % (Auto) 21.2, Kidder % (Auto) 11.0 H, Eos % (Auto) 0.8, Baso % (Auto) 0.4, Absolute Neuts (auto) 6.2, Absolute Lymphs (auto) 2.01, Nucleated RBC % 0 06/04/19 18:15: Sodium 133 L, Potassium 3.5, Chloride 96 L, Carbon Dioxide 24.0, Anion Gap 13, BUN 9, Creatinine 0.95, Estim Creat Clear Calc 36.45, Est GFR (MDRD) Af Amer 73, Est GFR (MDRD) Non-Af 60, BUN/Creatinine Ratio 9.5 L, Glucose 102, Calcium 9.0, Lipase 63 L 06/04/19 18:15: Lactic Acid 1.5 06/04/19 18:15: Magnesium 1.9 06/04/19 19:10: Urine Color Yellow, Urine Clarity Sl. Cloudy, Urine pH 5.0, Ur Specific [place] 1.025, Urine Protein 30 H, Urine Glucose (UA) Normal, Urine Ketones 150 H, Urine Occult Blood 25 H, Urine Nitrite Negative, Urine Bilirubin 1 H, Urine Urobilinogen 1 H, Ur Leukocyte Esterase 500 H, Urine RBC 0 SEEN, Urine WBC 10-25 SEEN, Ur Squamous Epith Cells 5-10 SEEN, Urine Bacteria 2+, Urine Mucus 2+ 06/05/19 07:25: WBC 6.6, RBC 4.42, Hgb 13.4, Hct 41.7, MCV 94.3, MCH 30.3, MCHC 32.1, RDW Std Deviation 51.4 H, RDW Coeff of Samreen 14.7 H, Plt Count 141 L, MPV 10.0, Immature Gran % (Auto) 1.500 H, Neut % (Auto) 58.9, Lymph % (Auto) 26.3, Kidder % (Auto) 11.9 H, Eos % (Auto) 1.1, Baso % (Auto) 0.3, Absolute Neuts (auto) 3.9, Absolute Lymphs (auto) 1.72, Nucleated RBC % 0 06/05/19 07:25: Sodium 138, Potassium 3.4 L, Chloride 109 H, Carbon Dioxide 20.0 L, Anion Gap 9, BUN 7, Creatinine 0.58, Estim Creat Clear Calc 29.89, Est GFR (MDRD) Af Amer 130, Est GFR (MDRD) Non-Af 107, BUN/Creatinine Ratio 12.2, Glucose 84, Calcium 7.6 L Current Medications Acetaminophen (Tylenol) 650 mg PO Q6H PRN PRN PRN Reason: pain, fever Last Admin: 06/05/19 00:41 Dose: 650 mg Documented by: Brimonidine Tartrate (Alphagan P 0.15%) 1 drop EACH EYE BID [facility] Last Admin: 06/04/19 23:18 Dose: 1 drop Documented by: Budesonide (Budesonide Ec) 3 mg PO DAILY [facility] Dextrose (D50w Syringe) 0 gm IV X1 PRN; Protocol PRN Reason: Hypoglycemia Enoxaparin Sodium (Lovenox) 40 mg SC DAILY@1000 [facility] Famotidine (Pepcid) 20 mg PO BID [facility] Last Admin: 06/04/19 23:02 Dose: 20 mg Documented by: Glucagon () 1 mg IM .X1 PRN PRN Reason: Hypoglycemia Hydralazine HCl (Apresoline Iv) 10 mg IV Q4H PRN PRN PRN Reason: SBP > 160 Hydrocortisone (Cortef) 10 mg PO DAILYCM [facility] Hydroxychloroquine Sulfate (Plaquenil) 200 mg PO DAILYCM [facility] Sodium Chloride () 250 mls @ 15 mls/hr IV .[id number] PRN PRN Reason: Saline Flush Last Infusion: 06/05/19 00:59 Dose: Infused Documented by: Ceftriaxone Sodium (Rocephin) 1 gm in 50 mls @ 100 mls/hr IV Q24H [facility] Last Infusion: 06/05/19 00:26 Dose: Infused Documented by: Sodium Chloride () 1,000 mls @ 125 mls/hr IV .Q8H [facility] Last Infusion: 06/05/19 07:21 Dose: 125 mls/hr Documented by: Lactobacillus Acidophilus (Acidophilus) 2 tablet PO 4X/DAY [facility] Last Admin: 06/05/19 02:40 Dose: Not Given Documented by: Latanoprost (Xalatan Opthalmic) 1 drop EACH EYE QHS [facility] Last Admin: 06/04/19 23:26 Dose: 1 drop Documented by: Levothyroxine Sodium (Synthroid) 75 mcg PO DAILY@0600 [facility] Melatonin (Melatonin) 3 mg PO QHS PRN PRN PRN Reason: INSOMNIA Metoprolol Succinate (Toprol Xl (Beta Rosalind)) 50 mg PO BID [facility] Last Admin: 06/04/19 23:05 Dose: 50 mg Documented by: Nutritional Formula (Lactose Free) (Ensure Clear) 120 ml PO 4X/DAY [facility] Potassium Chloride (K-Dur) 10 meq PO DAILY [facility] Promethazine HCl (Phenergan) 6.25 mg IV Q4H PRN PRN PRN Reason: NAUSEA/VOMITING Last Admin: 06/04/19 23:12 Dose: 6.25 mg Documented by: Sodium Chloride () 10 - 40 ml IV UD PRN PRN Reason: SALINE FLUSH Last Admin: 06/05/19 00:08 Dose: 10 ml Documented by: Timolol Maleate (Timoptic) 1 drop EACH EYE DAILY [facility] Vancomycin HCl () 125 mg PO Q6 [facility] Last Admin: 06/05/19 06:46 Dose: 125 mg Documented by: STROKE Vital Signs/Narrative: Vital Signs Pulse Ox 06/05/19 07:40 96 Medical Necessity - Tobacco Use Smoking Status: Never smoker Tobacco Use: Non-smoker Assessment/Plan All Active Problems (Last Reviewed 04/29/19 @ 14:10 by Elizabeth Jc) Gastrointestinal bleeding, lower (Acute) 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 difficile colitis (Resolved) Nonhealing nonsurgical wound (Resolved) Shingles (Resolved) Traumatic open wound of right lower leg (Resolved) 1. Sepsis(fever, tachycardia) secondary to suspected viral gastroenteritis, UTI, improved Acute C. difficile ruled out. Enteric panel is negative Will continue on IVF, with IV ceftriaxone day 2 2. Acute UTI, on IV ceftriaxone, will aim for 3 days total Will have to be careful in the light of history of C. difficile 3. Hypomagnesemia, hypokalemia, replaced, recheck in a.m. 4. Hypothyroidism, on levothyroxine 5. Adrenal insufficiency, on hydrocortisone PO 6. SLE/autoimmune hepatitis/monoclonal gammopathy, on plaquenil, continue same 7. DVT Prophylaxis with Lovenox subcu Code Visit Inpatient E&M: 75712 Subs Hosp L2
[2019-06-05 09:47] LABS: Magnesium 1.7 mg/dL (1.6-2.6)
[2019-06-05] MEDS: Timolol 0.5% 5ML OPTH.BTL 1 DRP EACH EYE (10:05)
[2019-06-05] MEDS: Ensure Clear 120 ML Liquid PO ×4 (10:08→22:19)
[2019-06-05] MEDS: Budesonide 3 MG CAPSULE.EC PO (10:09)
[2019-06-05] MEDS: Hydroxychloroquine 200 MG Tablet PO (10:09)
[2019-06-05] MEDS: Levothyroxine 75 MCG Tablet PO (10:09)
[2019-06-05] MEDS: Enoxaparin 40 MG/0.4 ML Syringe SC (10:10)
[2019-06-05] MEDS: Hydrocortisone 10 MG Tablet PO (10:10)
[2019-06-05] MEDS: Famotidine 20 MG Tablet PO ×2 (10:10→22:14)
[2019-06-05] MEDS: Metoprolol(XL)Succ 50 MG Tablet PO ×2 (10:13→22:14)
[2019-06-05] MEDS: BRIMONIDINE 0.15% 5 ML Bottle 1 DRP EACH EYE ×2 (10:15→22:07)
[2019-06-05] MEDS: CLARIFY ORDER 1 EACH NOTE (17:18)
[2019-06-05] MEDS: Ceftriaxone 1 GM/50 ML BAG IV (22:09)
[2019-06-05] MEDS: Latanoprost 0.005% 1 Bottle 1 DRP EACH EYE (22:16)
[2019-06-06] VITALS (10 sets, daily range): BP systolic 115–139; BP diastolic 61–65; PULSE 72–81; RESP 16–18; TEMP 36.7–37.7; O2SAT 96–100
[2019-06-06] MEDS: 0.9% Normal Saline 1,000 ML 125 ML IV (04:36)
[2019-06-06] MEDS: Levothyroxine 75 MCG Tablet PO (06:48)
[2019-06-06 07:48] LABS: ALB/GLOB Ratio 0.6 RATIO (0.9-2.4); AST(SGOT) 21 U/L (15-37); Alanine Aminotransfer ALT/SGPT 19 U/L (13-56); Albumin, Serum 2.4 g/dL (3.2-5.0); Alkaline Phosphatase 46 U/L (45-117); Anion Gap 8 (5-15); BUN 3 mg/dL (7-18); BUN/Creat Ratio 5.5 RATIO (10-20); Calcium,Total 7.6 mg/dL (8.5-10.1); Chloride 115 mmol/L (98-107); Creatinine, Serum 0.55 mg/dL (0.55-1.02); EST Glomerular Filtration Rate 114 mL/min (>60); Est Glom Filt Rate - Afr Amer 138 mL/min (>60); Estimated Creatinine Clearance 29.89 ml/min; Globulin 3.9 g/dL (2.2-4.2); Glucose 111 mg/dL (74-106); Magnesium 2.1 mg/dL (1.6-2.6); Potassium 3.7 mmol/L (3.5-5.1); Protein, Total 6.3 g/dL (6.4-8.2); Sodium Level 143 mmol/L (136-145)
[2019-06-06] MEDS: Hydrocortisone 10 MG Tablet PO (08:25)
[2019-06-06] MEDS: Hydroxychloroquine 200 MG Tablet PO (08:26)
[2019-06-06] MEDS: BRIMONIDINE 0.15% 5 ML Bottle 1 DRP EACH EYE ×2 (09:25→21:27)
[2019-06-06] MEDS: Budesonide 3 MG CAPSULE.EC PO (09:27)
[2019-06-06] MEDS: Famotidine 20 MG Tablet PO ×2 (09:28→21:15)
[2019-06-06] MEDS: Enoxaparin 40 MG/0.4 ML Syringe SC (09:28)
[2019-06-06] MEDS: Timolol 0.5% 5ML OPTH.BTL 1 DRP EACH EYE (09:29)
[2019-06-06] MEDS: Metoprolol(XL)Succ 50 MG Tablet PO ×2 (09:29→21:14)
[2019-06-06] MEDS: Ensure Clear 120 ML Liquid PO ×3 (09:31→17:52)
--- NOTE | 2019-06-06 09:33 | PN_ITS ---
Patient Problems: Active and Suspected Problems (Last Reviewed 04/29/19 @ 14:10 by Elizabeth Jc) Sepsis (Acute) Gastroenteritis (Acute) Clostridioides difficile infection (Suspected) UTI (urinary tract infection) (Acute) Subjective: Follow-up on gastroenteritis: Patient was seen and examined. She feels much improved. Has been able to tolerate a cup of tea. Had had one small bowel movement which is almost formed. Denied any fever or chills. No acute events overnight. Her vitals has been stable overnight. Urine output has been very good. Objective: Physical exam: General: Alert, Oriented x3, Cooperative, No apparent distress HEENT: Atraumatic, PERRLA, EOMI, Normocephalic Oral: Moist Mucosa Neck: Supple Lungs: Clear to auscultation, Normal air movement Cardiovascular: Regular rate, Regular Rhythm, Normal S1, Normal S2, No murmurs Abdomen: Bowel Sounds Present, Soft, Non Tender, Non-Distended, No Hepato- splenomegaly Extremities: No edema Skin: No rashes Musculoskeletal: No Tenderness to Palpation of Joints or Extremities Lymphatic: No Cervical, Supraclavicular, or Inguinal Adenopathy Neurological: Cranial nerves II-XII grossly intact, Neuro grossly intact Psych/Mental Status: Normal Affect, Appropriate Vitals/I&O's: Vital Signs Temp Pulse Resp BP Pulse Ox 98.4 F 72 16 127/61 H 96 06/06/19 08:21 06/06/19 08:21 06/06/19 08:21 06/06/19 08:21 06/06/19 08:21 Oxygen Flow Rate (L/min) 2 Oxygen Delivery Method Room Air Weight: 41.5 kg Body Mass Index (BMI) 19.1 Intake and Output for Last 24 Hours 06/04/19 06/05/19 06/06/19 23:59 23:59 23:59 Intake Total 1000 / 1039 4686.25 / 4926.25 1233.75 / 1233.75 Output Total 2265 / 3265 1900 / 1900 Balance 1000 / 1039 2421.25 / 1661.25 -666.25 / -666.25 Microbiology Past 72 Hours 06/05/19 07:55 Stool Enteric Bacteriology - Final 06/05/19 07:55 Stool C. difficile DNA Amplification - Final Laboratory Results 06/05/19 07:25: Magnesium 1.7 06/06/19 06:59: Sodium 143, Potassium 3.7, Chloride 115 H, Carbon Dioxide 20.0 L , Anion Gap 8, BUN 3 L, Creatinine 0.55, Estim Creat Clear Calc 29.89, Est GFR (MDRD) Af Amer 138, Est GFR (MDRD) Non-Af 114, BUN/Creatinine Ratio 5.5 L, Glucose 111 H, Calcium 7.6 L, Magnesium 2.1, Total Bilirubin 0.50, AST 21, ALT 19, Alkaline Phosphatase 46, Total Protein 6.3 L, Albumin 2.4 L, Globulin 3.9, Albumin/Globulin Ratio 0.6 L Current Medications Acetaminophen (Tylenol) 650 mg PO Q6H PRN PRN PRN Reason: pain, fever Last Admin: 06/05/19 00:41 Dose: 650 mg Documented by: Brimonidine Tartrate (Alphagan P 0.15%) 1 drop EACH EYE BID [facility] Last Admin: 06/05/19 22:07 Dose: 1 drop Documented by: Budesonide (Budesonide Ec) 3 mg PO DAILY [facility] Last Admin: 06/05/19 10:09 Dose: 3 mg Documented by: Dextrose (D50w Syringe) 0 gm IV X1 PRN; Protocol PRN Reason: Hypoglycemia Enoxaparin Sodium (Lovenox) 40 mg SC DAILY@1000 [facility] Last Admin: 06/05/19 10:10 Dose: 40 mg Documented by: Famotidine (Pepcid) 20 mg PO BID [facility] Last Admin: 06/05/19 22:14 Dose: 20 mg Documented by: Glucagon () 1 mg IM .X1 PRN PRN Reason: Hypoglycemia Hydralazine HCl (Apresoline Iv) 10 mg IV Q4H PRN PRN PRN Reason: SBP > 160 [facility] Last Admin: 06/06/19 08:25 Dose: 10 mg Documented by: Hydroxychloroquine [facility] ([facility]il) [facility] Last Admin: 06/06/19 08:26 Dose: 200 mg Documented by: Sodium Chloride () 250 mls @ 15 mls/hr IV .[id number] PRN PRN Reason: Saline Flush Last Infusion: 06/05/19 00:59 Dose: Infused Documented by: Ceftriaxone Sodium (Rocephin) 1 gm in 50 mls @ 100 mls/hr IV Q24H [facility] Last Infusion: 06/05/19 22:39 Dose: Infused Documented by: Sodium Chloride () 1,000 mls @ 75 mls/hr IV .[id number] [facility] Last Admin: 06/06/19 04:36 Dose: 125 mls/hr Documented by: Lactobacillus Acidophilus (Acidophilus) 2 tablet PO 4X/DAY [facility] Last Admin: 06/05/19 22:14 Dose: 2 tablet Documented by: Latanoprost (Xalatan Opthalmic) 1 drop EACH EYE QHS [facility] Last Admin: 06/05/19 22:16 Dose: 1 drop Documented by: Levothyroxine Sodium (Synthroid) 75 mcg PO DAILY@0600 [facility] Last Admin: 06/06/19 06:48 Dose: 75 mcg Documented by: Melatonin (Melatonin) 3 mg PO QHS PRN PRN PRN Reason: INSOMNIA Metoprolol Succinate (Toprol Xl (Beta Rosalind)) 50 mg PO BID [facility] Last Admin: 06/05/19 22:14 Dose: 50 mg Documented by: Nutritional Formula (Lactose Free) (Ensure Clear) 120 ml PO 4X/DAY [facility] Last Admin: 06/05/19 22:19 Dose: 120 ml Documented by: Potassium Chloride (K-Dur) 10 meq PO DAILY [facility] Last Admin: 06/05/19 10:10 Dose: 10 meq Documented by: Promethazine HCl (Phenergan) 6.25 mg IV Q4H PRN PRN PRN Reason: NAUSEA/VOMITING Last Admin: 06/04/19 23:12 Dose: 6.25 mg Documented by: Sodium Chloride () 10 - 40 ml IV UD PRN PRN Reason: SALINE FLUSH Last Admin: 06/05/19 00:08 Dose: 10 ml Documented by: Timolol Maleate (Timoptic) 1 drop EACH EYE DAILY [facility] Last Admin: 06/05/19 10:05 Dose: 1 drop Documented by: STROKE Vital Signs/Narrative: Vital Signs Temp Pulse Resp BP Pulse Ox 06/06/19 08:21 98.4 F 72 16 127/61 H 96 06/06/19 07:00 96 Medical Necessity - Tobacco Use Smoking Status: Never smoker Tobacco Use: Non-smoker Assessment/Plan All Active Problems (Last Reviewed 04/29/19 @ 14:10 by Elizabeth Jc) Gastrointestinal bleeding, lower (Acute) 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 difficile colitis (Resolved) Nonhealing nonsurgical wound (Resolved) Shingles (Resolved) Traumatic open wound of right lower leg (Resolved) 1. Sepsis(fever, tachycardia) secondary to suspected viral gastroenteritis/UTI, improved Acute C. difficile ruled out. Enteric panel is negative Will complete 3 days of IV antibiotics today 2. Acute UTI, on IV ceftriaxone, resolving 3. Hypomagnesemia, hypokalemia, resolved 4. Hypothyroidism, on levothyroxine 5. Adrenal insufficiency, on hydrocortisone PO 6. SLE/autoimmune hepatitis/monoclonal gammopathy, on plaquenil, continue same 7. DVT Prophylaxis with Lovenox subcu 8. Disposition: Discharge home if patient continues to be stable. Code Visit Inpatient E&M: 12186 Subs Hosp L2
[2019-06-06] MEDS: 0.9% Normal Saline 1,000 ML 75 ML IV (14:36)
--- NOTE | 2019-06-06 16:33 | PCM.PN.HOSP ---
Patient Problems: Active and Suspected Problems (Last Reviewed 04/29/19 @ 14:10 by Elizabeth Jc) Sepsis (Acute) Gastroenteritis (Acute) Clostridioides difficile infection (Suspected) UTI (urinary tract infection) (Acute) Subjective: Patient was seen and examined. She noticed 2 episodes of rectal bleeding today mixed with stool. History of transfer to [facility] where 4 polyps were removed; 3 of them were pre-cancerous and there was a microperforation. She denies dizziness, palpitations, chest pain. She admits to feeling bloated. No abdominal pain. No nausea or vomiting. She tolerated some tomato soup, egg salad and custard and ensure. Vitals/I&O's: Vital Signs Temp Pulse Resp BP Pulse Ox 98.1 F 72 16 115/65 100 06/06/19 13:49 06/06/19 13:51 06/06/19 13:51 06/06/19 13:49 06/06/19 13:51 Oxygen Flow Rate (L/min) 2 Oxygen Delivery Method Room Air Weight: 41.5 kg Body Mass Index (BMI) 19.1 Intake and Output for Last 24 Hours 06/04/19 06/05/19 06/06/19 23:59 23:59 23:59 Intake Total 1000 / 1039 4686.25 / 4926.25 2233.75 / 2233.75 Output Total 2265 / 3265 1900 / 1900 Balance 1000 / 1039 2421.25 / 1661.25 333.75 / 333.75 General: Alert, Oriented x3, Cooperative, No apparent distress HEENT: Atraumatic, PERRLA, EOMI, Normocephalic Oral: Moist Mucosa Neck: Supple Lungs: Clear to auscultation, Normal air movement Cardiovascular: Regular rate, Regular Rhythm, Normal S1, Normal S2, No murmurs Abdomen: Bowel Sounds Present, Soft, Non Tender, Non-Distended, No Hepato-splenomegaly Extremities: No edema Skin: No rashes, No breakdown Musculoskeletal: No Tenderness to Palpation of Joints or Extremities Lymphatic: No Cervical, Supraclavicular, or Inguinal Adenopathy Neurological: Cranial nerves II-XII grossly intact, Neuro grossly intact Psych/Mental Status: Normal Affect, Appropriate Microbiology Past 72 Hours 06/05/19 07:55 Stool Enteric Bacteriology - Final 06/05/19 07:55 Stool C. difficile DNA Amplification - Final Laboratory Results 06/06/19 06:59: Sodium 143, Potassium 3.7, Chloride 115 H, Carbon Dioxide 20.0 L, Anion Gap 8, BUN 3 L, Creatinine 0.55, Estim Creat Clear Calc 29.89, Est GFR (MDRD) Af Amer 138, Est GFR (MDRD) Non-Af 114, BUN/Creatinine Ratio 5.5 L, Glucose 111 H, Calcium 7.6 L, Magnesium 2.1, Total Bilirubin 0.50, AST 21, ALT 19, Alkaline Phosphatase 46, Total Protein 6.3 L, Albumin 2.4 L, Globulin 3.9, Albumin/Globulin Ratio 0.6 L Current Medications Acetaminophen (Tylenol) 650 mg PO Q6H PRN PRN PRN Reason: pain, fever Last Admin: 06/05/19 00:41 Dose: 650 mg Documented by: Brimonidine Tartrate (Alphagan P 0.15%) 1 drop EACH EYE BID [facility] Last Admin: 06/06/19 09:25 Dose: 1 drop Documented by: Budesonide (Budesonide Ec) 3 mg PO DAILY [facility] Last Admin: 06/06/19 09:27 Dose: 3 mg Documented by: Dextrose (D50w Syringe) 0 gm IV X1 PRN; Protocol PRN Reason: Hypoglycemia Enoxaparin Sodium (Lovenox) 40 mg SC DAILY@1000 [facility] Last Admin: 06/06/19 09:28 Dose: 40 mg Documented by: Famotidine (Pepcid) 20 mg PO BID [facility] Last Admin: 06/06/19 09:28 Dose: 20 mg Documented by: Glucagon () 1 mg IM .X1 PRN PRN Reason: Hypoglycemia Hydralazine HCl (Apresoline Iv) 10 mg IV Q4H PRN PRN PRN Reason: SBP > 160 [facility] Admin: 06/06/19 08:25 Dose: 10 mg Documented by: Hydroxychloroquine [facility]ate ([facility]il) [facility] Last Admin: 06/06/19 08:26 Dose: 200 mg Documented by: Sodium Chloride () 250 mls @ 15 mls/hr IV .[id number] PRN PRN Reason: Saline Flush Last Infusion: 06/05/19 00:59 Dose: Infused Documented by: Ceftriaxone Sodium (Rocephin) 1 gm in 50 mls @ 100 mls/hr IV Q24H [facility] Last Infusion: 06/05/19 22:39 Dose: Infused Documented by: Sodium Chloride () 1,000 mls @ 75 mls/hr IV .[id number] [facility] Last Admin: 06/06/19 14:36 Dose: 75 mls/hr Documented by: Lactobacillus Acidophilus (Acidophilus) 2 tablet PO 4X/DAY [facility] Last Admin: 06/06/19 14:58 Dose: 2 tablet Documented by: Latanoprost (Xalatan Opthalmic) 1 drop EACH EYE QHS [facility] Last Admin: 06/05/19 22:16 Dose: 1 drop Documented by: Levothyroxine Sodium (Synthroid) 75 mcg PO DAILY@0600 [facility] Last Admin: 06/06/19 06:48 Dose: 75 mcg Documented by: Melatonin (Melatonin) 3 mg PO QHS PRN PRN PRN Reason: INSOMNIA Metoprolol Succinate (Toprol Xl (Beta Lorie)) 50 mg PO BID [facility] Last Admin: 06/06/19 09:29 Dose: 50 mg Documented by: Nutritional Formula (Lactose Free) (Ensure Clear) 120 ml PO 4X/DAY [facility] Last Admin: 06/06/19 14:57 Dose: 120 ml Documented by: Potassium Chloride (K-Dur) 10 meq PO DAILY [facility] Last Admin: 06/06/19 09:28 Dose: 10 meq Documented by: Promethazine HCl (Phenergan) 6.25 mg IV Q4H PRN PRN PRN Reason: NAUSEA/VOMITING Last Admin: 06/04/19 23:12 Dose: 6.25 mg Documented by: Sodium Chloride () 10 - 40 ml IV UD PRN PRN Reason: SALINE FLUSH Last Admin: 06/05/19 00:08 Dose: 10 ml Documented by: Timolol Maleate (Timoptic) 1 drop EACH EYE DAILY [facility] Last Admin: 06/06/19 09:29 Dose: 1 drop Documented by: STROKE Vital Signs/Narrative: Vital Signs Temp Pulse Resp BP Pulse Ox 06/06/19 13:51 72 16 100 06/06/19 13:49 98.1 F 72 16 115/65 100 Medical Necessity - Tobacco Use Smoking Status: Never smoker Tobacco Use: Non-smoker Assessment/Plan All Active Problems (Last Reviewed 04/29/19 @ 14:10 by Elizabeth Jc) Gastrointestinal bleeding, lower (Acute) 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 difficile colitis (Resolved) Nonhealing nonsurgical wound (Resolved) Shingles (Resolved) Traumatic open wound of right lower leg (Resolved) 1. Acute GI bleed, history of extensive AVMs, history of recent polypectomy with small bowel microperforations in [place] [id number] General surgery consult, clear liquid diet, H&H every 6, labs in a.m., continue on H2 lorie 2. Sepsis(fever, tachycardia) secondary to suspected viral gastroenteritis/UTI, resolved Acute C. difficile ruled out. Enteric panel is negative Completed antibiotics 2. Acute UTI, resolved, completed 3 days of antibiotics 3. Hypomagnesemia, hypokalemia, resolved 4. Hypothyroidism, on levothyroxine 5. Adrenal insufficiency, on hydrocortisone PO 6. SLE/autoimmune hepatitis/monoclonal gammopathy, on plaquenil, continue same 7. DVT Prophylaxis with Lovenox subcu Code Visit Inpatient E&M: 17538 Subs Hosp L2
[2019-06-06 18:21] LABS: Hematocrit 37.1 % (37-47); Hemoglobin 12.1 g/dL (12.0-15.0)
[2019-06-06] MEDS: Latanoprost 0.005% 1 Bottle 1 DRP EACH EYE (21:15)
[2019-06-06] MEDS: Ceftriaxone 1 GM/50 ML BAG IV (21:27)
[2019-06-06 23:09] LABS: Hematocrit 33.9 % (37-47)
[2019-06-07] VITALS (7 sets, daily range): BP systolic 136–147; BP diastolic 62–65; PULSE 75–95; RESP 16–18; TEMP 37.1–37.7; O2SAT 95–98
[2019-06-07] MEDS: 0.9% Normal Saline 1,000 ML 75 ML IV ×2 (05:06→20:17)
[2019-06-07] MEDS: BRIMONIDINE 0.15% 5 ML Bottle 1 DRP EACH EYE ×2 (08:20→21:51)
[2019-06-07] MEDS: Metoprolol(XL)Succ 50 MG Tablet PO ×2 (08:21→21:50)
[2019-06-07] MEDS: Budesonide 3 MG CAPSULE.EC PO (08:22)
[2019-06-07] MEDS: Enoxaparin 40 MG/0.4 ML Syringe SC (08:22)
[2019-06-07] MEDS: Hydroxychloroquine 200 MG Tablet PO (08:22)
[2019-06-07] MEDS: Hydrocortisone 10 MG Tablet PO (08:22)
[2019-06-07] MEDS: Famotidine 20 MG Tablet PO (08:22)
[2019-06-07] MEDS: Timolol 0.5% 5ML OPTH.BTL 1 DRP EACH EYE (08:23)
[2019-06-07] MEDS: Ensure Clear 120 ML Liquid PO ×3 (08:28→22:01)
[2019-06-07 08:36] LABS: Hematocrit 34.6 % (37-47); Hemoglobin 11.5 g/dL (12.0-15.0)
--- NOTE | 2019-06-07 08:40 | PCM.CONS.GEN ---
Reason for Consult Date of Consultation: 06/07/19 History of Present Illness: The patient is a 79 year old F admitted for gastroenteritis as she was not eating much or taking her meds. Patient did have a history of C. difficile that was checked which was negative. Patient reports that the nausea and upset stomach is improved. However patient did have history of GI bleed about a year ago Dr. Khan did a colonoscopy and saw multiple bleeding AVMs patient was transferred to [facility] and underwent another colonoscopy there which showed several polyps and she also had a microperforation per the patient and her daughter. Both are unsure if she had any obvious AVMs seen at that time. Patient did report since then she had one episode of bright red blood per rectum but it was not much and stopped in a day or 2. Yesterday patient again had some bright red blood per rectum currently states that she does not have much blood and it is more of a maroon color currently. Patient's hemoglobin currently 11 was initially 12-13. Patient states she was told that she should not get another colonoscopy at [facility]. Past Medical History Past Medical History (Chronic Problems): Chronic Problems (Last Reviewed 04/29/19 @ 14:10 by Elizabeth Jc) Adrenal insufficiency (Chronic) Hyperlipidemia (Chronic) Lupus (Chronic) Glaucoma (Chronic) HTN (hypertension) (Chronic) Hypothyroidism (Chronic) Monoclonal gammopathies (Chronic) Lupus (Chronic) Hypertension (Chronic) Autoimmune hepatitis (Chronic) Medical History: Medical History (Last Reviewed 04/29/19 @ 14:10 by Elizabeth Jc) Rectal bleeding (Acute) K62.5 COLONOSCOPY Glaucoma H40.9 Heart disease I51.9 History of left heart catheterization (LHC) Z98.890 Hyperlipidemia E78.5 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 Tachycardia R00.0 Allergies griseofulvin ultramicrosize [From Priti-PEG (ultramicrosize)] Allergy (Severe, Verified 06/04/19 17:47) RACING HEART AND SEVERE H/A azathioprine [From Imuran] Adverse Reaction (Severe, Verified 06/04/19 17:47) Nausea/Vom/Diarrhea azathioprine sodium [From Imuran] Adverse Reaction (Severe, Verified 06/04/19 17:47) Nausea/Vom/Diarrhea Penicillins Adverse Reaction (Severe, Verified 06/04/19 17:47) Hives Home Medications: Ambulatory Orders Medication Instructions Recorded Bimatoprost [Lumigan Opthalmic] 1 drp EACH EYE QHS 06/23/17 Brimonidine 0.15% [Alphagan P 1 drp EACH EYE BID 06/23/17 0.15%] Budesonide [Budesonide EC] 3 mg PO DAILY 06/23/17 Hydroxychloroquine [Plaquenil] 200 mg PO DAILYCM 06/23/17 Levothyroxine Sodium [Synthroid] 75 mcg PO DAILY 06/23/17 Timolol 0.5% [Timoptic] 1 drp EACH EYE DAILY 06/23/17 Hydrocortisone [Cortef] 10 mg PO DAILYCM #30 tablet 06/21/18 Metoprolol Succinate [Toprol Xl] 50 mg PO BID 06/04/19 Potassium Chloride 10 meq PO DAILY 06/04/19 Ensure Clear 120 ml PO 4X/DAY #120 liquid 06/08/19 Lactobacillus Acidophilus 2 tab PO 4X/DAY #60 tab 06/08/19 [Acidophilus] Surgical History: Surgical History (Last Reviewed 04/29/19 @ 14:10 by Elizabeth Jc) H/O cataract extraction Z98.49 H/O tubal ligation Z98.51 Hx of cholecystectomy Z98.890, Z90.49 h/o mass removed from hip Surgical History: cataract, cholecystectomy, - - D+C x 2, BLTL, sinus cyst removal BL. Psychiatric History: No pertinent psych hx PHOTOGEOLOGIST History: No pertinent PHOTOGEOLOGIST history Lives: Spouse/ Significant Other Smoking Status: Never smoker Tobacco Use: Non-smoker Alcohol: None Drugs: None - *Family History Maternal Family History: Family History (Last Reviewed 04/29/19 @ 14:10 by Elizabeth Jc) Father Heart disease Mother Heart disease History Items: Heart Disease Paternal Family History: Family History (Last Reviewed 04/29/19 @ 14:10 by Elizabeth Jc) Father Heart disease Mother Heart disease History Items: Heart Disease Review of Systems Constitutional: Denies: Anorexia, Fever HEENT: Denies: Difficulty Swallowing Cardiovascular: Denies: Chest Pain Respiratory: Denies: Shortness of breath at rest Gastrointestinal: Reports: Diarrhea, Hematochezia. Denies: Abdominal Pain Genitourinary: Denies: Dysuria Psychiatric: Denies: Anxiety Hematologic/ Lymphatic: Reports: Easy Bruising, Easy Bleeding Patient Problems: Active and Suspected Problems (Last Reviewed 04/29/19 @ 14:10 by Elizabeth Jc) Sepsis (Acute) Gastroenteritis (Acute) Clostridioides difficile infection (Suspected) UTI (urinary tract infection) (Acute) - Physical Exam Vitals/I&O's: Vital Signs Temp Pulse Resp BP Pulse Ox 98.9 F 85 18 143/63 H 96 06/07/19 08:11 06/07/19 08:21 06/07/19 08:11 06/07/19 08:11 06/07/19 08:11 Oxygen Flow Rate (L/min) 2 Oxygen Delivery Method Room Air Weight: 91 lb 7.869 oz Body Mass Index (BMI) 19.1 Intake and Output for Last 24 Hours 06/05/19 06/06/19 06/07/19 23:59 23:59 23:59 Intake Total 4686.25 / 4926.25 2797.50 / 3137.50 946.25 / 946.25 Output Total 2265 / 3265 1900 / 3000 1800 / 1800 Balance 2421.25 / 1661.25 897.50 / 137.50 -853.75 / -853.75 General: Alert, Oriented x3, Cooperative, No apparent distress HEENT: Atraumatic Lungs: Normal air movement Cardiovascular: Regular rate Abdomen: Soft, Non Tender, Non-Distended Neurological: Cranial nerves II-XII grossly intact Psych/Mental Status: Normal Affect Microbiology Past 72 Hours 06/05/19 07:55 Stool Enteric Bacteriology - Final 06/05/19 07:55 Stool C. difficile DNA Amplification - Final Laboratory Results 06/06/19 17:45: Hgb 12.1, Hct 37.1 06/06/19 23:03: Hgb 11.0 L, Hct 33.9 L 06/07/19 08:30: Hgb 11.5 L, Hct 34.6 L Current Medications Acetaminophen (Tylenol) 650 mg PO Q6H PRN PRN PRN Reason: pain, fever Last Admin: 06/05/19 00:41 Dose: 650 mg Documented by: Brimonidine Tartrate (Alphagan P 0.15%) 1 drop EACH EYE BID AFTAB Last Admin: 06/07/19 08:20 Dose: 1 drop Documented by: Budesonide (Budesonide Ec) 3 mg PO DAILY [facility] Last Admin: 06/07/19 08:22 Dose: 3 mg Documented by: Dextrose (D50w Syringe) 0 gm IV X1 PRN; Protocol PRN Reason: Hypoglycemia Enoxaparin Sodium (Lovenox) 40 mg SC DAILY@1000 [facility] Last Admin: 06/07/19 08:22 Dose: 40 mg Documented by: Famotidine (Pepcid) 20 mg PO BID [facility] Last Admin: 06/07/19 08:22 Dose: 20 mg Documented by: Glucagon () 1 mg IM .X1 PRN PRN Reason: Hypoglycemia Hydralazine HCl (Apresoline Iv) 10 mg IV Q4H PRN PRN PRN Reason: SBP > 160 [facility] Last Admin: 06/07/19 08:22 Dose: 10 mg Documented by: Hydroxychloroquine Sulfate (Plaquenil) [facility] Last Admin: 06/07/19 08:22 Dose: 200 mg Documented by: Sodium Chloride () 250 mls @ 15 mls/hr IV .[id number] PRN PRN Reason: Saline Flush Last Infusion: 06/05/19 00:59 Dose: Infused Documented by: Ceftriaxone Sodium (Rocephin) 1 gm in 50 mls @ 100 mls/hr IV Q24H [facility] Last Infusion: 06/06/19 21:57 Dose: Infused Documented by: Sodium Chloride () 1,000 mls @ 75 mls/hr IV .[id number] [facility] Last Admin: 06/07/19 05:06 Dose: 75 mls/hr Documented by: Lactobacillus Acidophilus (Acidophilus) 2 tablet PO 4X/DAY [facility] Last Admin: 06/07/19 08:19 Dose: 2 tablet Documented by: Latanoprost (Xalatan Opthalmic) 1 drop EACH EYE QHS [facility] Last Admin: 06/06/19 21:15 Dose: 1 drop Documented by: Levothyroxine Sodium (Synthroid) 75 mcg PO DAILY@0600 [facility] Last Admin: 06/07/19 06:15 Dose: Not Given Documented by: Melatonin (Melatonin) 3 mg PO QHS PRN PRN PRN Reason: INSOMNIA Metoprolol Succinate (Toprol Xl (Beta Rosalind)) 50 mg PO BID [facility] Last Admin: 06/07/19 08:21 Dose: 50 mg Documented by: Nutritional Formula (Lactose Free) (Ensure Clear) 120 ml PO 4X/DAY AFT[facility] Last Admin: 06/07/19 08:28 Dose: 120 ml Documented by: Potassium Chloride (K-Dur) 10 meq PO DAILY [facility] Last Admin: 06/07/19 08:23 Dose: 10 meq Documented by: Promethazine HCl (Phenergan) 6.25 mg IV Q4H PRN PRN PRN Reason: NAUSEA/VOMITING Last Admin: 06/04/19 23:12 Dose: 6.25 mg Documented by: Sodium Chloride () 10 - 40 ml IV UD PRN PRN Reason: SALINE FLUSH Last Admin: 06/05/19 00:08 Dose: 10 ml Documented by: Timolol Maleate (Timoptic) 1 drop EACH EYE DAILY [facility] Last Admin: 06/07/19 08:23 Dose: 1 drop Documented by: Assessment/Plan All Active Problems (Last Reviewed 04/29/19 @ 14:10 by Elizabeth Jc) Gastrointestinal bleeding, lower (Acute) 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 difficile colitis (Resolved) Nonhealing nonsurgical wound (Resolved) Shingles (Resolved) Traumatic open wound of right lower leg (Resolved) 79-year-old female admitted for gastroenteritis, dehydration, bright red blood per rectum?history of colonic AVMs. 1. Currently patient is having less bleeding per rectum. Patient's hemoglobin is 11 however patient states she has not had much obvious blood per rectum typically been a small amount initially was bright red now it has been more of a maroon and there is even less blood. We will plan to get records from [facility] for the last colonoscopy with the microperforation. We will continue to monitor patient. She does have increased blood per rectum she may need a more urgent colonoscopy or possible transfer to tertiary care facility. Mer Fair M.D. Pager: [phone] [facility] [address] [place] [address], [facility], [address] [place] [address] Office: [phone] Code Visit Inpatient E&M: 51321 Init Hosp L2
[2019-06-07 14:33] LABS: Hematocrit 35.2 % (37-47); Hemoglobin 11.7 g/dL (12.0-15.0)
--- NOTE | 2019-06-07 18:59 | PN_ITS ---
Patient Problems: Active and Suspected Problems (Last Reviewed 04/29/19 @ 14:10 by Elizabeth Jc) Sepsis (Acute) Gastroenteritis (Acute) Clostridioides difficile infection (Suspected) UTI (urinary tract infection) (Acute) Subjective: Follow-up on gastroenteritis/GI bleed: Patient was seen and examined. She is been having very minimal bleeding. She feels bloated. No nausea or vomiting. Discussed with general surgery, will start patient on full liquid diet. Objective: Physical exam: General: Alert, Oriented x3, Cooperative, No apparent distress HEENT: Atraumatic, PERRLA, EOMI, Normocephalic Oral: Moist Mucosa Neck: Supple Lungs: Clear to auscultation, Normal air movement Cardiovascular: Regular rate, Regular Rhythm, Normal S1, Normal S2, No murmurs Abdomen: Bowel Sounds Present, Soft, Non Tender, Non-Distended, No Hepato- splenomegaly Extremities: No edema Skin: No rashes, No breakdown Musculoskeletal: No Tenderness to Palpation of Joints or Extremities Lymphatic: No Cervical, Supraclavicular, or Inguinal Adenopathy Neurological: Cranial nerves II-XII grossly intact, Neuro grossly intact Psych/Mental Status: Normal Affect, Appropriate Vitals/I&O's: Vital Signs Temp Pulse Resp BP Pulse Ox 98.9 F 86 18 147/65 H 98 06/07/19 15:19 06/07/19 15:19 06/07/19 15:19 06/07/19 15:19 06/07/19 15:19 Oxygen Flow Rate (L/min) 2 Oxygen Delivery Method Room Air Weight: 41.5 kg Body Mass Index (BMI) 19.1 Intake and Output for Last 24 Hours 06/05/19 06/06/19 06/07/19 23:59 23:59 23:59 Intake Total 4686.25 / 4926.25 2797.50 / 3137.50 2046.25 / 2046.25 Output Total 2265 / 3265 1900 / 3000 4000 / 4000 Balance 2421.25 / 1661.25 897.50 / 137.50 -1953.75 / -1952.75 Microbiology Past 72 Hours 06/05/19 07:55 Stool Enteric Bacteriology - Final 06/05/19 07:55 Stool C. difficile DNA Amplification - Final Laboratory Results 06/06/19 23:03: Hgb 11.0 L, Hct 33.9 L 06/07/19 08:30: Hgb 11.5 L, Hct 34.6 L 06/07/19 14:20: Hgb 11.7 L, Hct 35.2 L Current Medications Acetaminophen (Tylenol) 650 mg PO Q6H PRN PRN PRN Reason: pain, fever Last Admin: 06/05/19 00:41 Dose: 650 mg Documented by: Brimonidine Tartrate (Alphagan P 0.15%) 1 drop EACH EYE BID [facility] Last Admin: 06/07/19 08:20 Dose: 1 drop Documented by: Budesonide (Budesonide Ec) 3 mg PO DAILY [facility] Last Admin: 06/07/19 08:22 Dose: 3 mg Documented by: Dextrose (D50w Syringe) 0 gm IV X1 PRN; Protocol PRN Reason: Hypoglycemia Enoxaparin Sodium (Lovenox) 40 mg SC DAILY@1000 [facility] Last Admin: 06/07/19 08:22 Dose: 40 mg Documented by: Glucagon () 1 mg IM .X1 PRN PRN Reason: Hypoglycemia Hydralazine HCl (Apresoline Iv) 10 mg IV Q4H PRN PRN PRN Reason: SBP > 160 Hydrocortisone (Cortef) 10 mg PO DAILYCM [facility] Last Admin: 06/07/19 08:22 Dose: 10 mg Documented by: Hydroxychloroquine Sulfate (Plaquenil) 200 mg PO DAILYCM [facility] Last Admin: 06/07/19 08:22 Dose: 200 mg Documented by: Sodium Chloride () 250 mls @ 15 mls/hr IV .[id number] PRN PRN Reason: Saline Flush Last Infusion: 06/05/19 00:59 Dose: Infused Documented by: Ceftriaxone Sodium (Rocephin) 1 gm in 50 mls @ 100 mls/hr IV Q24H [facility] Last Infusion: 06/06/19 21:57 Dose: Infused Documented by: Sodium Chloride () 1,000 mls @ 75 mls/hr IV .[id number] [facility] Last Admin: 06/07/19 05:06 Dose: 75 mls/hr Documented by: Pantoprazole Sodium 40 mg/ (Sodium Chloride) 110 mls @ 330 mls/hr IV Q12 [facility] Lactobacillus Acidophilus (Acidophilus) 2 tablet PO 4X/DAY [facility] Last Admin: 06/07/19 17:59 Dose: 2 tablet Documented by: Latanoprost (Xalatan Opthalmic) 1 drop EACH EYE QHS [facility] Last Admin: 06/06/19 21:15 Dose: 1 drop Documented by: Levothyroxine Sodium (Synthroid) 75 mcg PO DAILY@0600 [facility] Last Admin: 06/07/19 06:15 Dose: Not Given Documented by: Melatonin (Melatonin) 3 mg PO QHS PRN PRN PRN Reason: INSOMNIA Metoprolol Succinate (Toprol Xl (Beta Rosalind)) 50 mg PO BID [facility] Last Admin: 06/07/19 08:21 Dose: 50 mg Documented by: Nutritional Formula (Lactose Free) (Ensure Clear) 120 ml PO 4X/DAY [facility] Last Admin: 06/07/19 17:50 Dose: Not Given Documented by: Potassium Chloride (K-Dur) 10 meq PO DAILY [facility] Last Admin: 06/07/19 08:23 Dose: 10 meq Documented by: Promethazine HCl (Phenergan) 6.25 mg IV Q4H PRN PRN PRN Reason: NAUSEA/VOMITING Last Admin: 06/04/19 23:12 Dose: 6.25 mg Documented by: Sodium Chloride () 10 - 40 ml IV UD PRN PRN Reason: SALINE FLUSH Last Admin: 06/05/19 00:08 Dose: 10 ml Documented by: Timolol Maleate (Timoptic) 1 drop EACH EYE DAILY [facility] Last Admin: 06/07/19 08:23 Dose: 1 drop Documented by: STROKE Vital Signs/Narrative: Vital Signs Temp Pulse Resp BP Pulse Ox 06/07/19 15:19 98.9 F 86 18 147/65 H 98 Medical Necessity - Tobacco Use Smoking Status: Never smoker Tobacco Use: Non-smoker Assessment/Plan All Active Problems (Last Reviewed 04/29/19 @ 14:10 by Elizabeth Jc) Gastrointestinal bleeding, lower (Acute) 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 difficile colitis (Resolved) Nonhealing nonsurgical wound (Resolved) Shingles (Resolved) Traumatic open wound of right lower leg (Resolved) 1. Acute GI bleed, history of extensive AVMs, history of recent polypectomy with small bowel microperforations in [place] [address] General surgery following, continue on full liquid diet, continue with H&H every 6, labs in a.m., continue on PPI 2. Sepsis(fever, tachycardia) secondary to suspected viral gastroenteritis/UTI, resolved Acute C. difficile ruled out. Enteric panel is negative Completed antibiotics 2. Acute UTI, resolved, completed 3 days of antibiotics 3. Hypomagnesemia, hypokalemia, resolved 4. Hypothyroidism, on levothyroxine 5. Adrenal insufficiency, on hydrocortisone PO 6. SLE/autoimmune hepatitis/monoclonal gammopathy, on plaquenil, continue same 7. DVT Prophylaxis with Lovenox subcu Code Visit Inpatient E&M: 11626 Subs Hosp L2
[2019-06-07 20:13] LABS: Hematocrit 35.4 % (37-47); Hemoglobin 11.9 g/dL (12.0-15.0)
[2019-06-07] MEDS: Ceftriaxone 1 GM/50 ML BAG IV (21:46)
[2019-06-07] MEDS: Latanoprost 0.005% 1 Bottle 1 DRP EACH EYE (21:59)
[2019-06-08 02:35] VITALS: BP 152/70; PULSE 77; RESP 16; TEMP 37; O2SAT 94
[2019-06-08] MEDS: Levothyroxine 75 MCG Tablet PO (05:27)
[2019-06-08 08:06] VITALS: O2SAT 96
--- NOTE | 2019-06-08 08:08 | DCINST_ITS ---
- Discharge Diagnoses Current Active Problems: Current Active and Chronic Problems (Last Reviewed 04/29/19 @ 14:10 by Elizabeth Jc) Sepsis (Acute) Gastroenteritis (Acute) UTI (urinary tract infection) (Acute) HTN (hypertension) (Chronic) Reason(s) for Visit for Discharge Instructions: nausea,vomiting, diarrhea You will use the following diet at home:: Regular Your food should be the consistency of: Regular Your liquids should be the consistency of: Regular/Thin Discharge Activity: Return to Normal Activity Allergies/Adverse Reactions: Allergies griseofulvin ultramicrosize [From Priti-PEG (ultramicrosize)] Allergy (Severe, Verified 06/04/19 17:47) RACING HEART AND SEVERE H/A azathioprine [From Imuran] Adverse Reaction (Severe, Verified 06/04/19 17:47) Nausea/Vom/Diarrhea azathioprine sodium [From Imuran] Adverse Reaction (Severe, Verified 06/04/19 17:47) Nausea/Vom/Diarrhea Penicillins Adverse Reaction (Severe, Verified 06/04/19 17:47) Hives Medications to take at Discharge Bimatoprost [Lumigan Opthalmic] 1 drp EACH EYE QHS 06/23/17 Brimonidine 0.15% [Alphagan P 0.15%] 1 drp EACH EYE BID 06/23/17 Budesonide [Budesonide EC] 3 mg PO DAILY 06/23/17 Hydroxychloroquine [Plaquenil] 200 mg PO DAILYCM 06/23/17 Levothyroxine Sodium [Synthroid] 75 mcg PO DAILY 06/23/17 Timolol 0.5% [Timoptic] 1 drp EACH EYE DAILY 06/23/17 Hydrocortisone [Cortef] 10 mg PO DAILYCM #30 tablet 06/21/18 Metoprolol Succinate [Toprol Xl] 50 mg PO BID 06/04/19 Potassium Chloride 10 meq PO DAILY 06/04/19 Ensure Clear 120 ml PO 4X/DAY #120 liquid 06/08/19 Lactobacillus Acidophilus [Acidophilus] 2 tab PO 4X/DAY #60 tab 06/08/19 The following prescriptions were given: Lactobacillus Acidophilus [Acidophilus] 2 tab PO 4X/DAY #60 tab Transmission Status: Pending to [id number] Ensure Clear 120 ml PO 4X/DAY #120 liquid Transmission Status: Pending to [id number] Primary Care Physician: Ashvin Cardenas MD [Primary Care Provider] - Please follow up with your Primary Care Physician in: within 1-2 weeks Test Results: Test results from this visit will be discussed in further detail at your follow- up appointment, if applicable. Proposed Discharge Date: 06/08/19
--- NOTE | 2019-06-08 08:09 | PCM.DC.SUM ---
Discharge Date and Diagnosis - Problem List Patient Problems: Active and Suspected Problems (Last Reviewed 04/29/19 @ 14:10 by Elizabeth Jc) Sepsis (Acute) Gastroenteritis (Acute) Clostridioides difficile infection (Suspected) UTI (urinary tract infection) (Acute) Date of Admission: 06/04/19 Date of Discharge: 06/08/19 - Primary Discharge Diagnosis Active and Suspected Problems (Last Reviewed 04/29/19 @ 14:10 by Elizabeth Jc) Sepsis (Acute) Gastroenteritis (Acute), viral UTI (urinary tract infection) (Acute) Hypomagnesemia Hypokalemia - Secondary Discharge Diagnosis Chronic Problems (Last Reviewed 04/29/19 @ 14:10 by Elizabeth Jc) Adrenal insufficiency (Chronic) Hyperlipidemia (Chronic) Lupus (Chronic) Glaucoma (Chronic) HTN (hypertension) (Chronic) Hypothyroidism (Chronic) Monoclonal gammopathies (Chronic) Lupus (Chronic) Hypertension (Chronic) Autoimmune hepatitis (Chronic) Hospital Course and Treatment Imaging Results: Clinical Impression(s) from Imaging Studies Abdomen/Pelvis CT 06/04/19 18:14 IMPRESSION: 1. Extensive colonic diverticulosis. No visualized acute process on this study 2. Chronic pancreatitis. Electronically Signed: Glen Goss MD at 19:11 EST , Service support , General surgery Operations: None Procedures: None Summary of Care Provided: The patient is a 79 year old F with multiple comorbidities, history of GI bleed who comes in with complaints of nausea and vomiting as well as diarrhea ongoing for 3 days. Stool for C. difficile as well as enteric panel was negative. Patient had intractable nausea and vomiting and was unable to eat. Urinalysis was suggestive of possible UTI. Patient was hypokalemic and that was replaced. She was admitted to the [facility] floor and her low potassium as well as magnesium was replaced. Patient received IV ceftriaxone for UTI. She generally felt improved. She tolerated an improvement in her diet. She had a bloody bowel movement in the morning of 06/06/19. General surgery was clear liquid diet. Patient's H&H was monitored. No acute drops in H&H. She was also managed on IV PPI. She continued to improve and had her diet advanced to full liquid diet which she tolerated and resumed on her previous home diet on the day of discharge. Patient Problems: Active and Suspected Problems (Last Reviewed 04/29/19 @ 14:10 by Elizabeth Jc) Sepsis (Acute) Gastroenteritis (Acute) Clostridioides difficile infection (Suspected) UTI (urinary tract infection) (Acute) Subjective: On the day of discharge, patient was seen and examined. Denied any new complaints. She felt improved. No more bleeding seen. Objective: Physical exam: General: Alert, Oriented x3, Cooperative, No apparent distress HEENT: Atraumatic, PERRLA, EOMI, Normocephalic Oral: Moist Mucosa Neck: Supple Lungs: Clear to auscultation, Normal air movement Cardiovascular: Regular rate, Regular Rhythm, Normal S1, Normal S2, No murmurs Abdomen: Bowel Sounds Present, Soft, Non Tender, Non-Distended, No Hepato-splenomegaly Extremities: No edema Skin: No rashes, No breakdown Musculoskeletal: No Tenderness to Palpation of Joints or Extremities Lymphatic: No Cervical, Supraclavicular, or Inguinal Adenopathy Neurological: Cranial nerves II-XII grossly intact, Neuro grossly intact Psych/Mental Status: Normal Affect, Appropriate - Physical Exam Vitals/I&O's: Vital Signs Temp Pulse Resp BP Pulse Ox 98.6 F 77 16 152/70 H 96 06/08/19 02:35 06/08/19 02:35 06/08/19 02:35 06/08/19 02:35 06/08/19 08:06 Oxygen Flow Rate (L/min) 2 Oxygen Delivery Method Room Air Weight: 41.5 kg Body Mass Index (BMI) 19.1 Intake and Output for Last 24 Hours 06/06/19 06/07/19 06/08/19 23:59 23:59 23:59 Intake Total 2797.50 / 3137.50 3206.25 / 3706.25 1048.75 / 1048.75 Output Total 1900 / 3000 4000 / 4300 2250 / 2250 Balance 897.50 / 137.50 -793.75 / -593.75 -1201.25 / -1201.25 Microbiology Past 72 Hours 06/05/19 07:55 Stool Enteric Bacteriology - Final 06/05/19 07:55 Stool C. difficile DNA Amplification - Final Laboratory Results 06/07/19 08:30: Hgb 11.5 L, Hct 34.6 L 06/07/19 14:20: Hgb 11.7 L, Hct 35.2 L 06/07/19 20:01: Hgb 11.9 L, Hct 35.4 L Current Medications Acetaminophen (Tylenol) 650 mg PO Q6H PRN PRN PRN Reason: pain, fever Last Admin: 06/05/19 00:41 Dose: 650 mg Documented by: Brimonidine Tartrate (Alphagan P 0.15%) 1 drop EACH EYE BID [facility] Last Admin: 06/07/19 21:51 Dose: 1 drop Documented by: Budesonide (Budesonide Ec) 3 mg PO DAILY [facility] Last Admin: 06/07/19 08:22 Dose: 3 mg Documented by: Dextrose (D50w Syringe) 0 gm IV X1 PRN; Protocol PRN Reason: Hypoglycemia Enoxaparin Sodium (Lovenox) 40 mg SC DAILY@1000 [facility] Last Admin: 06/07/19 08:22 Dose: 40 mg Documented by: Glucagon () 1 mg IM .X1 PRN PRN Reason: Hypoglycemia Hydralazine HCl (Apresoline Iv) 10 mg IV Q4H PRN PRN PRN Reason: SBP > 160 Hydrocortisone (Cortef) 10 mg PO DAILYCM [facility] Last Admin: 06/07/19 08:22 Dose: 10 mg Documented by: Hydroxychloroquine Sulfate (Plaquenil) 200 mg PO DAILYCM [facility] Last Admin: 06/07/19 08:22 Dose: 200 mg Documented by: Sodium Chloride () 250 mls @ 15 mls/hr IV .[id number] PRN PRN Reason: Saline Flush Last Infusion: 06/05/19 00:59 Dose: Infused Documented by: Ceftriaxone Sodium (Rocephin) 1 gm in 50 mls @ 100 mls/hr IV Q24H [facility] Last Infusion: 06/07/19 23:24 Dose: Infused Documented by: Sodium Chloride () 1,000 mls @ 75 mls/hr IV .[id number] [facility] Last Infusion: 06/08/19 00:56 Dose: 75 mls/hr Documented by: Pantoprazole Sodium 40 mg/ (Sodium Chloride) 110 mls @ 330 mls/hr IV Q12 [facility] Last Infusion: 06/07/19 23:24 Dose: Infused Documented by: Lactobacillus Acidophilus (Acidophilus) 2 tablet PO 4X/DAY [facility] Last Admin: 06/07/19 21:50 Dose: 2 tablet Documented by: Latanoprost (Xalatan Opthalmic) 1 drop EACH EYE QHS [facility] Last Admin: 06/07/19 21:59 Dose: 1 drop Documented by: Levothyroxine Sodium (Synthroid) 75 mcg PO DAILY@0600 [facility] Last Admin: 06/08/19 05:27 Dose: 75 mcg Documented by: Melatonin (Melatonin) 3 mg PO QHS PRN PRN PRN Reason: INSOMNIA Metoprolol Succinate (Toprol Xl (Beta Rosalind)) 50 mg PO BID [facility] Last Admin: 06/07/19 21:50 Dose: 50 mg Documented by: Nutritional Formula (Lactose Free) (Ensure Clear) 120 ml PO 4X/DAY [facility] Last Admin: 06/07/19 22:01 Dose: 120 ml Documented by: Potassium Chloride (K-Dur) 10 meq PO DAILY [facility] Last Admin: 06/07/19 08:23 Dose: 10 meq Documented by: Promethazine HCl (Phenergan) 6.25 mg IV Q4H PRN PRN PRN Reason: NAUSEA/VOMITING Last Admin: 06/04/19 23:12 Dose: 6.25 mg Documented by: Sodium Chloride () 10 - 40 ml IV UD PRN PRN Reason: SALINE FLUSH Last Admin: 06/05/19 00:08 Dose: 10 ml Documented by: Timolol Maleate (Timoptic) 1 drop EACH EYE DAILY [facility] Last Admin: 06/07/19 08:23 Dose: 1 drop Documented by: Discharge Diet: Low fat/ Low Cholesterol, 2000 mg Sodium Diet Discharge Activity: Return to Normal Activity Home Medications: Medications to take at Discharge Bimatoprost [Lumigan Opthalmic] 1 drp EACH EYE QHS 06/23/17 Brimonidine 0.15% [Alphagan P 0.15%] 1 drp EACH EYE BID 06/23/17 Budesonide [Budesonide EC] 3 mg PO DAILY 06/23/17 Hydroxychloroquine [Plaquenil] 200 mg PO DAILYCM 06/23/17 Levothyroxine Sodium [Synthroid] 75 mcg PO DAILY 06/23/17 Timolol 0.5% [Timoptic] 1 drp EACH EYE DAILY 06/23/17 Hydrocortisone [Cortef] 10 mg PO DAILYCM #30 tablet 06/21/18 Metoprolol Succinate [Toprol Xl] 50 mg PO BID 06/04/19 Potassium Chloride 10 meq PO DAILY 06/04/19 Ensure Clear 120 ml PO 4X/DAY #120 liquid 06/08/19 Lactobacillus Acidophilus [Acidophilus] 2 tab PO 4X/DAY #60 tab 06/08/19 Following Prescrptions Were Given to Patient: Lactobacillus Acidophilus [Acidophilus] 2 tab PO 4X/DAY #60 tab Transmission Status: Received by [id number] Ensure Clear 120 ml PO 4X/DAY #120 liquid Transmission Status: Received by [id number] Primary Care Physician: Ashvin Cardenas MD [Primary Care Provider] - Please follow up with your Primary Care Physician in: within 1-2 weeks Disposition: Home Minutes spent on discharge:: 40 Patient Condition:: Stable Medical Necessity - Tobacco Use Smoking Status: Never smoker Tobacco Use: Non-smoker Meaningful Use Info Meaningful Use Diagnoses (Choose all that apply): None applicable Code Visit Inpatient E&M: 34321 Subs Hosp L2
[2019-06-08 08:11] VITALS: BP 157/77; PULSE 81; RESP 16; TEMP 37.2; O2SAT 98
[2019-06-08] MEDS: Hydroxychloroquine 200 MG Tablet PO (08:16)
[2019-06-08] MEDS: BRIMONIDINE 0.15% 5 ML Bottle 1 DRP EACH EYE (08:17)
[2019-06-08] MEDS: Hydrocortisone 10 MG Tablet PO (08:18)
[2019-06-08 08:19] VITALS: PULSE 82
[2019-06-08] MEDS: Budesonide 3 MG CAPSULE.EC PO (08:19)
[2019-06-08] MEDS: Metoprolol(XL)Succ 50 MG Tablet PO (08:19)
[2019-06-08] MEDS: Timolol 0.5% 5ML OPTH.BTL 1 DRP EACH EYE (08:21)
[2019-06-08 08:32] VITALS: BP 157/77; PULSE 82; RESP 18; TEMP 37.2; O2SAT 96
--- NOTE | 2019-06-08 08:50 | PN.SURG_ITS ---
Patient Problems: Active and Suspected Problems (Last Reviewed 04/29/19 @ 14:10 by Elizabeth Jc) Sepsis (Acute) Gastroenteritis (Acute) Clostridioides difficile infection (Suspected) UTI (urinary tract infection) (Acute) Subjective: Patient has had no further bleeding per rectum, hemoglobin may have been false at 11 currently it is 11.9. Patient's colonoscopy notes from [facility] states that the bleeding was from internal hemorrhoids but they did not find 3 other polyps one was in the ascending the other in the transverse no mention of AVMs which Dr. Khan saw in the ascending and cecum. - Physical Exam Vitals/I&O's: Vital Signs Temp Pulse Resp BP Pulse Ox 98.9 F 82 18 157/77 H 96 06/08/19 08:32 06/08/19 08:32 06/08/19 08:32 06/08/19 08:32 06/08/19 08:32 Oxygen Flow Rate (L/min) 2 Oxygen Delivery Method Room Air Weight: 91 lb 7.869 oz Body Mass Index (BMI) 19.1 Intake and Output for Last 24 Hours 06/06/19 06/07/19 06/08/19 23:59 23:59 23:59 Intake Total 2797.50 / 3137.50 3206.25 / 3706.25 1597.50 / 1597.50 Output Total 1900 / 3000 4000 / 4300 2250 / 2250 Balance 897.50 / 137.50 -793.75 / -593.75 -652.50 / -652.50 General: Alert, Oriented x3, Cooperative, No apparent distress HEENT: Atraumatic Lungs: Normal air movement Cardiovascular: Regular rate Abdomen: Soft, Non Tender, Non-Distended, - - ED external and internal hemorrhoids on exam, no prolapse of hemorrhoids, no gross blood Neurological: Cranial nerves II-XII grossly intact Psych/Mental Status: Normal Affect Microbiology Past 72 Hours 06/05/19 07:55 Stool Enteric Bacteriology - Final 06/05/19 07:55 Stool C. difficile DNA Amplification - Final Laboratory Results 06/07/19 14:20: Hgb 11.7 L, Hct 35.2 L 06/07/19 20:01: Hgb 11.9 L, Hct 35.4 L Current Medications Acetaminophen (Tylenol) 650 mg PO Q6H PRN PRN PRN Reason: pain, fever Last Admin: 06/05/19 00:41 Dose: 650 mg Documented by: Brimonidine Tartrate (Alphagan P 0.15%) 1 drop EACH EYE BID [facility] Last Admin: 06/08/19 08:17 Dose: 1 drop Documented by: Budesonide (Budesonide Ec) 3 mg PO DAILY [facility] Last Admin: 06/08/19 08:19 Dose: 3 mg Documented by: Dextrose (D50w Syringe) 0 gm IV X1 PRN; Protocol PRN Reason: Hypoglycemia Enoxaparin Sodium (Lovenox) 40 mg SC DAILY@1000 [facility] Last Admin: 06/08/19 08:20 Dose: Not Given Documented by: Glucagon () 1 mg IM .X1 PRN PRN Reason: Hypoglycemia Hydralazine HCl (Apresoline Iv) 10 mg IV Q4H PRN PRN PRN Reason: SBP > 160 [facility] Admin: 06/08/19 08:18 Dose: 10 mg Documented by: Hydroxychloroquine Sulfate ([facility]aquenil) [facility] Last Admin: 06/08/19 08:16 Dose: 200 mg Documented by: Sodium Chloride () 250 mls @ 15 mls/hr IV .[id number] PRN PRN Reason: Saline Flush Last Infusion: 06/05/19 00:59 Dose: Infused Documented by: Ceftriaxone Sodium (Rocephin) 1 gm in 50 mls @ 100 mls/hr IV Q24H [facility] Last Infusion: 06/07/19 23:24 Dose: Infused Documented by: Sodium Chloride () 1,000 mls @ 75 mls/hr IV .[id number] [facility] Last Infusion: 06/08/19 08:15 Dose: Infused Documented by: Pantoprazole Sodium 40 mg/ (Sodium Chloride) 110 mls @ 330 mls/hr IV Q12 [facility] Last Admin: 06/08/19 08:20 Dose: Not Given Documented by: Lactobacillus Acidophilus (Acidophilus) 2 tablet PO 4X/DAY [facility] Last Admin: 06/08/19 08:16 Dose: 2 tablet Documented by: Latanoprost (Xalatan Opthalmic) 1 drop EACH EYE QHS [facility] Last Admin: 06/07/19 21:59 Dose: 1 drop Documented by: Levothyroxine Sodium (Synthroid) 75 mcg PO DAILY@0600 [facility] Last Admin: 06/08/19 05:27 Dose: 75 mcg Documented by: Melatonin (Melatonin) 3 mg PO QHS PRN PRN PRN Reason: INSOMNIA Metoprolol Succinate (Toprol Xl (Beta Rosalind)) 50 mg PO BID [facility] Last Admin: 06/08/19 08:19 Dose: 50 mg Documented by: Nutritional Formula (Lactose Free) (Ensure Clear) 120 ml PO 4X/DAY [facility] Last Admin: 06/08/19 08:20 Dose: Not Given Documented by: Potassium Chloride (K-Dur) 10 meq PO DAILY [facility] Last Admin: 06/08/19 08:19 Dose: 10 meq Documented by: Promethazine HCl (Phenergan) 6.25 mg IV Q4H PRN PRN PRN Reason: NAUSEA/VOMITING Last Admin: 06/04/19 23:12 Dose: 6.25 mg Documented by: Sodium Chloride () 10 - 40 ml IV UD PRN PRN Reason: SALINE FLUSH Last Admin: 06/05/19 00:08 Dose: 10 ml Documented by: Timolol Maleate (Timoptic) 1 drop EACH EYE DAILY [facility] Last Admin: 06/08/19 08:21 Dose: 1 drop Documented by: Medical Necessity - Tobacco Use Smoking Status: Never smoker Tobacco Use: Non-smoker Assessment/Plan All Active Problems (Last Reviewed 04/29/19 @ 14:10 by Elizabeth Jc) Gastrointestinal bleeding, lower (Acute) 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 difficile colitis (Resolved) Nonhealing nonsurgical wound (Resolved) Shingles (Resolved) Traumatic open wound of right lower leg (Resolved) 79-year-old female admitted for gastroenteritis, dehydration, bright red blood per rectum?history of colonic AVMs. 1. Hemoglobin has been stable at about 12. Patient had no further rectal bleeding. Did discuss with the patient and her daughter that report from [facility] stated she had bleeding internal hemorrhoids denies anything about any AVMs in the ascending and cecum which Dr. Khan had seen. However patient did have a microperforation at [facility] do not have these progress notes. But would want to get these prior to doing any colonoscopy if the patient and the daughter want to proceed with an outpatient colonoscopy they will let us know. Okay for discharge Mer Fair M.D. Pager: [phone] [facility] [address] [place] [address], [facility], [address] [place] [address] Office: [phone] Code Visit Inpatient E&M: 54326 Subs Hosp L1
--- NOTE | 2019-06-09 15:03 | CASEMGMT ---
TAM DC PHONE CALL DC DATE: 06.08.19 DC Disposition: Home Diagnosis on Discharge: Sepsis, Gastroenteritis LACE/STRATA: 06/18 Attempted call. No answer. Kimberlee STAPLESN RN [facility]
== END 2019-06-08 12:30 | disposition home or self-care (01) | DRG 872 ==
LOC: ED 18:20 → MS3 21:02
PROVIDERS: Admitting Provider Family Medicine; Emergency Provider Emergency Medicine; Family Provider Family Medicine; PCP Family Medicine; Referring Provider Family Medicine; Visit Provider Internal Medicine
DX: A41.9 Sepsis, unspecified organism (principal); E27.40 Unspecified adrenocortical insufficiency; N39.0 Urinary tract infection, site not specified; A08.4 Viral intestinal infection, unspecified; E03.9 Hypothyroidism, unspecified; I10 Essential (primary) hypertension; E83.42 Hypomagnesemia; E87.6 Hypokalemia; E78.5 Hyperlipidemia, unspecified; H40.9 Unspecified glaucoma; D47.2 Monoclonal gammopathy; M32.9 Systemic lupus erythematosus, unspecified
CPT/HCPCS: 36415; 74176; 80048; 80053; 81001; 83605; 83690; 83735; 85014; 85018; 85025; 87493; 87506; 97110; 97116; 97162; 97166; 97802; 99251; 99284; J7030; J7050; A4216; G0463; J2405

== ENCOUNTER → 2019-06-23 16:08 | Outpatient (CLI) | payer MEDICARE, SELFPAY ==
[2019-06-04 21:24] VITALS: BMI 19.1
[2019-06-23 17:50] LABS: Absolute Lymphocyte Count 2.02 X10^3/uL (0.83-4.51); Absolute Neutrophil Count 7.2 X10^3/uL (2.0-7.7); Basophil# 0.04 X10^3/uL; Basophil% 0.4 % (0-1); Eosinophil# 0.07 X10^3/uL; Eosinophils% 0.7 % (0-5); Hemoglobin 14.2 g/dL (12.0-15.0); Lymphocyte # 2.02 X10^3/ul (4.0); Lymphocyte % 19.2 % (19-41); Mean Corp Hgb Conc 31.6 g/dL (32-36); Mean Corpuscular Hgb 30.2 pg (27.0-32.0); Mean Corpuscular Volume 95.7 fL (81-99); Mean Platelet Vol. 10.4 fl (6.2-12.0); Monocyte# 1.08 X10^3/uL; Monocyte% 10.2 % (0-10); NRBC Flagged by Analyzer 0 % (0-5); Neutrophil # 7.23 X10^3/uL (2.7-7.7); Neutrophil % 68.6 % (47-70); Platelet Count 236 K/mm3 (150-450); RBC Distribution Width CV 14.8 % (11.6-14.6); RBC Distribution Width SD 51.6 fl (35.1-43.9); White Blood Count 10.5 K/mm3 (4.4-11.0)
[2019-06-23 18:09] LABS: Erythrocyte Sedimentation Rate 62 mm/hr (0-30)
[2019-06-23 18:41] LABS: ALB/GLOB Ratio 0.7 RATIO (0.9-2.4); AST(SGOT) 19 U/L (15-37); Alanine Aminotransfer ALT/SGPT 26 U/L (13-56); Albumin, Serum 3.4 g/dL (3.2-5.0); Alkaline Phosphatase 82 U/L (45-117); Anion Gap 7 (5-15); BUN 15 mg/dL (7-18); BUN/Creat Ratio 19.1 RATIO (10-20); CRP 5.87 mg/L (0.0-3.0); Chloride 104 mmol/L (98-107); Creatinine, Serum 0.78 mg/dL (0.55-1.02); EST Glomerular Filtration Rate 75 mL/min (>60); Est Glom Filt Rate - Afr Amer 91 mL/min (>60); Globulin 5.1 g/dL (2.2-4.2); Glucose 107 mg/dL (74-106); Magnesium 2.2 mg/dL (1.6-2.6); Potassium 4.2 mmol/L (3.5-5.1); Protein, Total 8.5 g/dL (6.4-8.2); Sodium Level 136 mmol/L (136-145)
== END ==
PROVIDERS: Family Provider Family Medicine; PCP Family Medicine; Visit Provider Family Medicine
DX: M32.9 Systemic lupus erythematosus, unspecified (principal); E87.6 Hypokalemia
CPT/HCPCS: 36415; 80053; 83735; 85025; 85652; 86140

== ENCOUNTER → 2019-07-28 16:18 | Outpatient (CLI) | payer MEDICARE, SELFPAY ==
[2019-06-04 21:24] VITALS: BMI 19.1
[2019-07-28 17:33] LABS: Absolute Lymphocyte Count 2.53 X10^3/uL (0.83-4.51); Absolute Neutrophil Count 7.6 X10^3/uL (2.0-7.7); Basophil# 0.07 X10^3/uL; Basophil% 0.6 % (0-1); Eosinophils% 0.9 % (0-5); Hematocrit 46.8 % (37-47); Lymphocyte # 2.53 X10^3/ul (4.0); Lymphocyte % 22.1 % (19-41); Mean Corp Hgb Conc 32.1 g/dL (32-36); Mean Corpuscular Hgb 30.5 pg (27.0-32.0); Mean Corpuscular Volume 95.3 fL (81-99); Mean Platelet Vol. 10.5 fl (6.2-12.0); Monocyte# 1.02 X10^3/uL; Monocyte% 8.9 % (0-10); NRBC Flagged by Analyzer 0 % (0-5); Neutrophil # 7.55 X10^3/uL (2.7-7.7); Neutrophil % 66.1 % (47-70); Platelet Count 171 K/mm3 (150-450); RBC Distribution Width CV 15.5 % (11.6-14.6); Red Blood Count 4.91 M/mm3 (4.2-5.4); White Blood Count 11.4 K/mm3 (4.4-11.0)
[2019-07-28 17:47] LABS: Erythrocyte Sedimentation Rate 31 mm/hr (0-30)
[2019-07-28 18:16] LABS: Anion Gap 6 (5-15); BUN 16 mg/dL (7-18); BUN/Creat Ratio 18.6 RATIO (10-20); CRP < 2.90 mg/L (0.0-3.0); Calcium,Total 9.3 mg/dL (8.5-10.1); Chloride 101 mmol/L (98-107); Creatinine, Serum 0.86 mg/dL (0.55-1.02); EST Glomerular Filtration Rate 67 mL/min (>60); Est Glom Filt Rate - Afr Amer 82 mL/min (>60); Glucose 95 mg/dL (74-106); Magnesium 2.2 mg/dL (1.6-2.6); Potassium 3.7 mmol/L (3.5-5.1); Sodium Level 134 mmol/L (136-145)
== END ==
PROVIDERS: Family Provider Family Medicine; PCP Family Medicine; Referring Provider Family Medicine; Visit Provider Family Medicine
DX: M32.9 Systemic lupus erythematosus, unspecified (principal); E87.6 Hypokalemia
CPT/HCPCS: 36415; 80048; 83735; 85025; 85652; 86140

== ENCOUNTER 2019-07-30 12:20 | Emergency (ER) | payer MEDICARE, SELFPAY ==
[2019-06-04 21:24] VITALS: BMI 19.1
[2019-07-30 12:21] VITALS: BP 183/78; PULSE 68; RESP 16; TEMP 36.6; O2SAT 99; BMI 22.5
--- NOTE | 2019-07-30 13:06 | CT_ITS ---
STUDY: CT BRAIN WITHOUT CONTRAST REASON FOR EXAM: Female, 79 years old. RIGHT FACIAL DROOP RADIATION DOSAGE (If Supplied By Facility): CTDIvol = ( 44.99 ) mGy, DLP = ( 728.62 ) mGycm TECHNIQUE: Transaxial CT imaging of the brain was performed without administration of intravenous contrast material. Individualized dose optimization techniques were used for this CT. COMPARISON: Comparison is made with prior study dated June 29, 2014. FINDINGS: Normal soft tissue structures. Normal calvarium. There is mild cerebral atrophy with widening of the extra-axial spaces and ventricular dilatation. Normal white matter tracts of the cerebral hemispheres. Normal basal ganglia and thalami. Normal brainstem. There is mild cerebellar atrophy. There is no intracranial hemorrhage. There are no findings of an acute ischemic infarction. Normal visualized paranasal sinuses. CT/Brain/Head without Contrast IMPRESSION: Chronic involutional changes of the brain. Electronically Signed: Emeka England, at 13:58 EST , Service support ,
[2019-07-30 13:52] VITALS: BP 182/65; PULSE 64; RESP 17; O2SAT 98; BMI 22.5
--- NOTE | 2019-07-30 15:46 | ED.DCSUM_ITS ---
- ER Visit Summary Date of Service: 07/30/19 Chief Complaint: Right eye drooping eyelid History of Present Illness: The patient is a 79 F history of glaucoma, lupus and autoimmune hepatitis. Patient's had drooping of her right eyelid for 24 to 48 hours. She denies any vision change. No headache. No trauma. No weakness to her upper or lower extremities. No prior history. She saw her body specialist. He is pursuing a work-up for possible myasthenia gravis. They also sent her in to have a CAT scan. Physical Examination: Older female no acute distress. Vital signs are stable and afebrile. H EENT exam unremarkable except her right upper lid has a lid lag. Is a droop. There is no facial droop however on that side. She can open her mouth normally bilaterally. Lungs clear to auscultation. Heart regular rhythm no murmur. Abdomen is soft and nontender. Patient is moving all 4 extremities. She has normal touch sensation and motor strength of both upper and lower extremities. She has normal registered nurse hh case manager strength bilaterally. Normal dorsi plantar flexion. Neurologically she is awake and alert. She has normal speech. She has no motor deficits to either upper or lower extremities. She has a droop of her right upper eyelid. Test Results: CAT scan of her brain without contrast read by the radiologist shows no acute abnormality. Reviewed by me. Emergency Department Course and Treatment: Repeat exam no change at 1550. I did order the blood work that her body specialist wanted for myasthenia gravis. That can be followed up as an outpatient. Treatment Plan: Follow-up with her body specialist Dr. Maurizio Feng and her primary care physician Dr. Ashvin Cardenas. Disposition: Discharge Impression: Right eyelid droop uncertain etiology This note was generated with [employer] (E[employer])ation software. It may contain incorrect words, spelling, and punctuation that were not noted in review of the chart prior to signing ED Disposition - Plan for ED Patient: Referrals: Ashvin Cardenas MD [Primary Care Provider] -
--- NOTE | 2019-07-30 15:52 | ED.DEP ---
ED Disposition - Plan for ED Patient: Disposition: Home or Assisted Living Referrals: Ashvin Cardenas MD [Primary Care Provider] - As soon as possible Maurizio Feng MD [STAFF PHYSICIAN] - As soon as possible Additional Instructions: CAT scan of your brain today was normal. Follow-up with Dr. Feng and/or Dr. Cardenas about the blood work that Dr. Feng ordered to evaluate you for the possibility of having myasthenia gravis.
[2019-07-30 16:06] VITALS: BP 163/63; PULSE 75; RESP 17; RESP 18; O2SAT 94
== END 2019-07-30 16:09 | disposition home or self-care (01) ==
PROVIDERS: Emergency Provider Emergency Medicine; Family Provider Family Medicine; PCP Family Medicine
DX: H02.401 Unspecified ptosis of right eyelid (principal); M32.9 Systemic lupus erythematosus, unspecified; E87.6 Hypokalemia; K75.4 Autoimmune hepatitis; Z79.899 Other long term (current) drug therapy
CPT/HCPCS: 70450; 99282

== ENCOUNTER 2019-07-31 18:10 | Inpatient (IN) | payer MEDICARE, SELFPAY ==
[2019-07-30 13:52] VITALS: BMI 22.5
[2019-07-31 18:12] VITALS: BP 130/54; PULSE 94; RESP 16; TEMP 38.1; O2SAT 93; BMI 23.9
--- NOTE | 2019-07-31 18:34 | CT_ITS ---
STUDY: CT ABDOMEN AND PELVIS WITHOUT CONTRAST REASON FOR EXAM: Female, 79 years old. Abdominal pain for one day. History of rectal bleeding diverticulosis. Fever. RADIATION DOSAGE (If Supplied By Facility): CTDIvol = ( 11.72 ) mGy, DLP = ( 316.60 ) mGycm TECHNIQUE: Transaxial images were obtained from the dome of the diaphragm to the symphysis pubis without oral contrast, and without intravenous contrast. Sagittal and coronal images were reconstructed. Individualized dose optimization techniques were used for this CT. COMPARISON: N.T 2019. FINDINGS: The visualized lung bases are unremarkable. The visualized portions of the heart are within normal limits. There is mild fatty infiltration of liver without focal mass. No evidence of cholecystectomy with mild extrahepatic biliary ductal dilatation. Normal spleen. There is fatty replacement of the pancreatic head without mass. Scattered calcifications are seen throughout the pancreatic body and tail. Normal bilateral adrenal glands. Normal right kidney. Normal left kidney. Normal ureters. Small hiatal hernia. The stomach appears otherwise unremarkable. Normal small intestine. There is diffuse diverticulosis. There is evidence of rectosigmoid diverticulitis. The appendix is visualized and appears normal. There is diffuse atherosclerotic calcification of the abdominal aorta, without a demonstrated aneurysm. Normal inferior vena cava. Normal retroperitoneum. Normal urinary bladder. Normal uterus and adnexa. There is no pelvic lymphadenopathy. No free air or free fluid is seen within the peritoneal cavity. Normal abdominal wall. Normal osseous structures. CT/Abdomen/Pelvis W IV Cont ONLY IMPRESSION: 1. Rectosigmoid diverticulitis without perforation. 2. No other major change in findings when compared to the prior study. Electronically Signed: Lewis Tian DO at 20:14 EST Tel [phone], Service support ,
[2019-07-31 18:58] LABS: Absolute Lymphocyte Count 2.47 X10^3/uL (0.83-4.51); Absolute Neutrophil Count 11.3 X10^3/uL (2.0-7.7); Basophil# 0.05 X10^3/uL; Basophil% 0.3 % (0-1); Eosinophil# 0.03 X10^3/uL; Eosinophils% 0.2 % (0-5); Hematocrit 48.3 % (37-47); Hemoglobin 15.9 g/dL (12.0-15.0); Lymphocyte # 2.47 X10^3/ul (4.0); Lymphocyte % 16.1 % (19-41); Mean Corp Hgb Conc 32.9 g/dL (32-36); Mean Corpuscular Volume 94.2 fL (81-99); Monocyte# 1.33 X10^3/uL; Monocyte% 8.7 % (0-10); NRBC Flagged by Analyzer 0 % (0-5); Neutrophil % 73.8 % (47-70); Platelet Count 140 K/mm3 (150-450); RBC Distribution Width CV 15.6 % (11.6-14.6); RBC Distribution Width SD 54.5 fl (35.1-43.9); Red Blood Count 5.13 M/mm3 (4.2-5.4); White Blood Count 15.3 K/mm3 (4.4-11.0)
[2019-07-31] MEDS: Morphine 4 MG/ML Syringe IV (19:15)
[2019-07-31] MEDS: Ondansetron 4 MG/2 ML Vial IV (19:15)
[2019-07-31] MEDS: 0.9% Normal Saline 1,000 ML 1000 ML IV (19:16)
[2019-07-31 19:19] VITALS: BP 147/59; PULSE 99; RESP 20; TEMP 38.3; O2SAT 93
[2019-07-31 19:45] LABS: ALB/GLOB Ratio 0.7 RATIO (0.9-2.4); AST(SGOT) 26 U/L (15-37); Alanine Aminotransfer ALT/SGPT 29 U/L (13-56); Albumin, Serum 3.3 g/dL (3.2-5.0); Alkaline Phosphatase 60 U/L (45-117); Anion Gap 11 (5-15); BUN 13 mg/dL (7-18); BUN/Creat Ratio 13.4 RATIO (10-20); Calcium,Total 8.9 mg/dL (8.5-10.1); Chloride 100 mmol/L (98-107); Creatinine, Serum 0.97 mg/dL (0.55-1.02); EST Glomerular Filtration Rate 59 mL/min (>60); Est Glom Filt Rate - Afr Amer 71 mL/min (>60); Estimated Creatinine Clearance 38.53 ml/min; Globulin 4.9 g/dL (2.2-4.2); Glucose 103 mg/dL (74-106); Lipase 56 U/L (73-393); Potassium 3.5 mmol/L (3.5-5.1); Protein, Total 8.2 g/dL (6.4-8.2); Sodium Level 135 mmol/L (136-145)
[2019-07-31 19:59] LABS: Lactic Acid 1.5 mmol/L (0.4-1.9)
[2019-07-31 20:18] LABS: Bacteria 0 SEEN /hpf (None Seen); White Blood Cells 0 SEEN /hpf (0-5)
[2019-07-31] MEDS: metroNIDAZOLE 500 MG/100 ML BAG 100 MG IV (20:18)
[2019-07-31 20:21] VITALS: BP 137/53; PULSE 101; RESP 23; TEMP 37.5; O2SAT 95
[2019-07-31 20:38] LABS: Color, Urine Yellow (Yellow); Glucose, Dipstick Normal (Normal); Ketone-Dipstick 50 mg/dl (Negative); Leukocyte Esterase-Dipstick Negative /ul (Negative); Nitrite-Dipstick Negative (Negative); Occult Blood-Urine 10 /ul (Negative); Protein-Dipstick 30 mg/dl (Negative); Urine Bilirubin Dipstick Negative (Negative); Urine Clarity Clear (Clear); Urine Urobilinogen Normal (Normal)
--- NOTE | 2019-07-31 20:39 | ED.VISSUMM ---
- ER Visit Summary Date of Service: 07/31/19 Chief Complaint: Abdominal pain History of Present Illness: The patient is a 79 F with abdominal pain since yesterday evening. The pain is over her lower abdomen. Associated with nausea and vomiting. She is not eating or drinking much or taking her meds. She has a history of diverticulitis and autoimmune hepatitis as well as lupus and glaucoma. She is not on blood thinners. Physical Examination: Temperature 100.5. Otherwise vitals unremarkable. Lower abdomen is tender to palpation. Test Results: White count 15.3, platelets 140, sodium 135, total bilirubin 2.3, lipase 56, lactate 1.5. Urinalysis pending. Cultures pending. CT showed diverticulitis without complication. Emergency Department Course and Treatment: Patient treated with fluids, morphine, Zofran. Work-up indicated sepsis without shock. She was treated with Cipro and Flagyl. Cultures are pending. Stable vitals on reevaluation. Given her age, sepsis, and findings of diverticulitis, we will call the hospitalist to admit. Treatment Plan: As above Disposition: Admission Impression: 1. Diverticulitis This note was generated with [employer] dictation software. It may contain incorrect words, spelling, and punctuation that were not noted in review of the chart prior to signing ED Disposition - Plan for ED Patient: Referrals: Ashvin Cardenas MD [Primary Care Provider] -
[2019-07-31] MEDS: Ciprofloxacin 400 MG/200 ML BAG 200 MG IV (20:47)
--- NOTE | 2019-07-31 20:51 | PCM.HP.STD ---
Problem List (1) Sepsis Status: Acute Qualifiers: Sepsis type: sepsis due to unspecified organism Sepsis acute organ dysfunction status: unspecified Qualified Code(s): A41.9 - Sepsis, unspecified organism (2) Rectosigmoid diverticulitis Status: Acute (3) AVM (arteriovenous malformation) of colon with hemorrhage Status: Resolved (4) Adrenal insufficiency Status: Chronic (5) Hyperlipidemia Status: Chronic Qualifiers: Hyperlipidemia type: unspecified Qualified Code(s): E78.5 - Hyperlipidemia, unspecified (6) Lupus Status: Chronic Qualifiers: Systemic lupus erythematosus type: unspecified Systemic lupus erythematosus organ involvement: unspecified (7) Glaucoma Status: Chronic Qualifiers: Glaucoma type: unspecified Laterality: unspecified laterality Qualified Code(s): H40.9 - Unspecified glaucoma (8) Clostridioides difficile infection Status: Resolved (9) HTN (hypertension) Status: Chronic Qualifiers: Hypertension type: essential hypertension Qualified Code(s): I10 - Essential (primary) hypertension (10) Hypothyroidism Status: Chronic Qualifiers: Hypothyroidism type: unspecified Qualified Code(s): E03.9 - Hypothyroidism, unspecified (11) Monoclonal gammopathies Status: Chronic History of Present Illness Date of Admission: 07/31/19 Chief Complaint: Abdominal pain The patient is a 79 y/o F w/ PMHx: Hypothyroidism, Autoimmune Hepatitis, Monoclonal Gammopathy, Lupus, Fe Deficiency Anemia, Hx Adrenal Insufficiency, Hx CVA prior w/ vision deficits, HTN, HLD, History of C-difficile colitis prior who presents to the [facility] ED on 07/31/19 with history of lower abdominal pain starting the day prior in BL LQ, severe, 10/10 in severity at its worse, but noted to wax and wane, more severe pain with bowel movements noted to be normal texture but small in caliber with nausea and emesis associated as well as poor oral intake ability with low grade temperatures with patient sensation that it was very similar to her prior diverticulitis presentation prompting presentation to the ED for evaluation. Work-up in the ED included T 100.9, heart rate 101, BP 130/54, respiratory rate 16-23 in the ED, 93% on room air, CBC with WC 15.3, hemoglobin 15.9, platelet 140 with left shift, CMP with sodium 135, lactic acid 1.5, total bilirubin 2.3, lipase 56, urinalysis with specific gravity 1.010, protein 30, ketones 50, occult blood 10, negative nitrite, negative leukocyte esterase, pending WBC, squamous epithelial cells in urine bacteria upon requested evaluation of patient, blood culture x2 pending per ED, CT abdomen and pelvis with rectosigmoid diverticulitis without perforation. In the ED patient ministered Cipro, Flagyl, morphine, Zofran and normal saline. Past Medical History Past Medical History (Chronic Problems): Chronic Problems (Last Reviewed 04/29/19 @ 14:10 by Elizabeth Jc) Adrenal insufficiency (Chronic) Hyperlipidemia (Chronic) Lupus (Chronic) Glaucoma (Chronic) HTN (hypertension) (Chronic) Hypothyroidism (Chronic) Monoclonal gammopathies (Chronic) Lupus (Chronic) Hypertension (Chronic) Autoimmune hepatitis (Chronic) Medical History: Medical History (Last Reviewed 04/29/19 @ 14:10 by Elizabeth Jc) Rectal bleeding (Acute) K62.5 COLONOSCOPY Glaucoma H40.9 Heart disease I51.9 History of left heart catheterization (LHC) Z98.890 Hyperlipidemia E78.5 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 Tachycardia R00.0 Allergies griseofulvin ultramicrosize [From Priti-PEG (ultramicrosize)] Allergy (Severe, Verified 07/31/19 18:12) RACING HEART AND SEVERE H/A azathioprine [From Imuran] Adverse Reaction (Severe, Verified 07/31/19 18:12) Nausea/Vom/Diarrhea azathioprine sodium [From Imuran] Adverse Reaction (Severe, Verified 07/31/19 18:12) Nausea/Vom/Diarrhea Penicillins Adverse Reaction (Severe, Verified 07/31/19 18:12) Hives Home Medications: Ambulatory Orders Medication Instructions Recorded Bimatoprost [Lumigan Opthalmic] 1 drp EACH EYE QHS 06/23/17 Brimonidine 0.15% [Alphagan P 1 drp EACH EYE BID 06/23/17 0.15%] Budesonide [Budesonide EC] 6 mg PO DAILY 06/23/17 Hydroxychloroquine [Plaquenil] 200 mg PO DAILYCM 06/23/17 Levothyroxine Sodium [Synthroid] 75 mcg PO DAILY 06/23/17 Timolol 0.5% [Timoptic] 1 drp EACH EYE DAILY 06/23/17 Metoprolol Succinate [Toprol Xl] 50 mg PO BID 06/04/19 Potassium Chloride 10 meq PO DAILY 06/04/19 Ensure Clear 120 ml PO 4X/DAY #120 liquid 06/08/19 Cholecalciferol (Vitamin D3) 2,000 unit PO DAILY 07/30/19 [Vitamin D3] Lactobacillus Acidophilus 2 tab PO DAILY 07/30/19 [Acidophilus] Hydrocortisone 7.5 mg PO DAILY PRN PRN 07/31/19 Surgical History: Surgical History (Last Reviewed 04/29/19 @ 14:10 by Elizabeth Jc) H/O cataract extraction Z98.49 H/O tubal ligation Z98.51 Hx of cholecystectomy Z98.890, Z90.49 h/o mass removed from hip Surgical History: cataract, cholecystectomy, - - D+C x 2, BLTL, sinus cyst removal BL. 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 Denies: Chills, Weight Change HEENT: Denies: Head Aches, Sinus Congestion, Sinus Drainage Cardiovascular: Denies: Chest Pain, Palpitations Respiratory: Denies: Cough, Shortness of breath at rest, Sputum production Gastrointestinal: Reports: Abdominal Pain, Nausea, Vomiting Genitourinary: Denies: Dysuria Musculoskeletal: Reports: Joint Pain, Muscle pain. Denies: Joint Tenderness Skin: Denies: Rash, Wounds Neurological: Denies: Numbness, Tingling, Focal weakness Psychiatric: Denies: Anxiety, Depression, Homicidal Ideations, Suicidal Ideations Hematologic/ Lymphatic: Reports: Easy Bruising, Easy Bleeding VTE Information - Inpt Only VTE Present on Admission: No VTE Mechan Device Prophylaxis: SCD's VTE Pharm Prophylaxis ordered?: Yes Patient Problems: Active and Suspected Problems (Last Reviewed 10/15/19 @ 14:10 by Elizabeth Jc) Sepsis (Acute) Rectosigmoid diverticulitis (Acute) Subjective: Laying in the ED bed, fatigued and ill-appearing, notes some improvement in her discomfort with recent pain medication. Objective: Physical Examination: General: awake, alert, oriented x 3 and cooperative, seated upright in ED bed, fatigued, notes some improvement since recent ED pain medication administration. Skin: normal color, turgor, no icterus, cyanosis. HEENT: AT/NC, EOMI, PERRLA, dry MM, injected sclera bilaterally, no carotid bruits or JVD noted. Lungs: CTA bilaterally, moderate effort, moderate decrease BL bases, no rales, ronchi or wheezing. Heart: Mildly tachycardic with regular rhythm; no gallop, rub audible. Abdomen: soft, notable discomfort of bilateral lower quadrant palpation, no rebound or specific guarding, mildly decreased bowel sounds throughout, no obvious distention, no HSM but difficult to assess given discomfort. Extremities: no cyanosis, clubbing, or edema. Neurological: patient awake, alert, oriented x 3; cognitive function intact; pupils equally reactive to light and accomodation; cranial nerves II-XII grossly normal, moving all 4 extremities, no focal deficits, strength severely globally decreased secondary to acute presentation. Psychiatric: affect appears fatigued, no acute evidence of depressive or anxiety feelings. - Physical Exam Vitals/I&O's: Vital Signs Temp Pulse Resp BP Pulse Ox 99.5 F H 101 H 23 H 137/53 H 95 07/31/19 20:21 07/31/19 20:21 07/31/19 20:21 07/31/19 20:21 07/31/19 20:21 Oxygen Delivery Method Room Air Weight: 114 lb 6.719 oz Body Mass Index (BMI) 23.9 Intake and Output for Last 24 Hours 07/29/19 07/30/19 07/31/19 23:59 23:59 23:59 Intake Total 1000 / 1000 Balance 1000 / 1000 Laboratory Results 07/31/19 18:20: WBC 15.3 H, RBC 5.13, Hgb 15.9 H, Hct 48.3 H, MCV 94.2, MCH 31.0, MCHC 32.9, RDW Std Deviation 54.5 H, RDW Coeff of Samreen 15.6 H, Plt Count 140 L, MPV 10.0, Immature Gran % (Auto) 0.900, Neut % (Auto) 73.8 H, Lymph % (Auto) 16.1 L, [place] % (Auto) 8.7, Eos % (Auto) 0.2, Baso % (Auto) 0.3, Absolute Neuts (auto) 11.3 H, Absolute Lymphs (auto) 2.47, Nucleated RBC % 0 07/31/19 18:20: Sodium 135 L, Potassium 3.5, Chloride 100, Carbon Dioxide 24.0, Anion Gap 11, BUN 13, Creatinine 0.97, Estim Creat Clear Calc 38.53, Est GFR (MDRD) Af Amer 71, Est GFR (MDRD) Non-Af 59 L, BUN/Creatinine Ratio 13.4, Glucose 103, Calcium 8.9, Total Bilirubin 2.30 H, AST 26, ALT 29, Alkaline Phosphatase 60, Total Protein 8.2, Albumin 3.3, Globulin 4.9 H, Albumin/Globulin Ratio 0.7 L, Lipase 56 L 07/31/19 18:49: Lactic Acid 1.5 07/31/19 20:12: Urine Color Yellow, Urine Clarity Clear, Urine pH 6.0, Ur Specific [place] 1.010, Urine Protein 30 H, Urine Glucose (UA) Normal, Urine Ketones 50 H, Urine Occult Blood 10 H, Urine Nitrite Negative, Urine Bilirubin Negative, Urine Urobilinogen Normal, Ur Leukocyte Esterase Negative, Urine RBC Pending, Urine WBC Pending, Ur Squamous Epith Cells Pending, Urine Bacteria Pending, Urine Mucus Pending Current Medications Metronidazole (Flagyl) 500 mg in 100 mls @ 100 mls/hr IV X1 ONE Stop: 07/31/19 21:04 Last Admin: 07/31/19 20:18 Dose: 100 mls/hr Documented by: Ciprofloxacin (Cipro) 400 mg in 200 mls @ 200 mls/hr IV X1 ONE Stop: 07/31/19 21:04 Last Admin: 07/31/19 20:47 Dose: 200 mls/hr Documented by: Assessment/Plan All Active Problems (Last Reviewed 04/29/19 @ 14:10 by Elizabeth Jc) Gastrointestinal bleeding, lower (Acute) AVM (arteriovenous malformation) of colon with hemorrhage (Resolved) Hyponatremia (Acute) Hemorrhoids (Acute) Diverticulosis (Acute) Sepsis (Acute) Gastroenteritis (Acute) Clostridioides difficile infection (Resolved) UTI (urinary tract infection) (Acute) Sepsis (Acute) Rectosigmoid diverticulitis (Acute) Acute blood loss anemia (Acute) Rectal bleeding (Acute) C. difficile colitis (Resolved) Nonhealing nonsurgical wound (Resolved) Shingles (Resolved) Traumatic open wound of right lower leg (Resolved) The patient is a 79 y/o F w/ PMHx: Hypothyroidism, Autoimmune Hepatitis, Monoclonal Gammopathy, Lupus, Fe Deficiency Anemia, Hx Adrenal Insufficiency, Hx CVA prior w/ vision deficits, HTN, HLD, History of C-difficile colitis prior who presents to the [facility] ED on 07/31/19 with history of lower abdominal pain starting the day prior in BL LQ, severe, 10/10 in severity at its worse, but noted to wax and wane, more severe pain with bowel movements noted to be normal texture but small in caliber with nausea and emesis associated. 1. Acute Sepsis secondary to Acute rectosigmoid diverticulitis: Will admit to [facility], continue hydration, continue cipro and flagyl with increase in her home lactobacillus given c-diff recent history, will temporarily place on famotidine while NPO but would d/c once oral intake started given recent c-diff history, PRN anti-emetics, pain regimen PRN, fall and aspiration precautions, PT/OT, CM consultations for discharge planning. 2. Recent C-difficile colitis: Completed oral vancomycin, stools normal texture per family and patient, increasing lactobacillus given abx usage, stop famotidine once NPO status discontinued given recent history. 3. Hypertension: Continue home regimen including metoprolol, PRN hydralazine. 4. Lupus: We will continue patient home Plaquenil regimen. 5. Hypothyroidism: Continue home synthroid regimen. 6. Adrenal insufficiency: We will continue patient home steroid regimen. 7. DVT prophylaxis: SCDs, Lovenox. 8. CODE status: Patient son present and is healthcare power of insurance attorney. Discussed CODE status at length including difference between FULL code, DNR-CCA and DNR-CC status. Following discussions about the differences in these status, requested full code; however, of note prior admissions with son only presentation, discussions had lead to DNR-CCA, no intubation status. Confirmed with family present as not only son but other family members, and current preference for Full Code status. Discussed realistic prognosis should patient have cardiac/pulmonary arrest and the family notes understanding. Advanced Care Planning Face to Face Time: 16 minutes. Code Visit Inpatient E&M: 36538 Init Hosp L3 Procedures: 33152 Advncd Care Plan 30 Min
[2019-07-31 20:59] LABS: Mucous, Urine RARE /hpf (<or=2+); Squamous Epithelial Cells - UA 0-5 SEEN /hpf (5-10)
[2019-07-31 21:00] LABS: Red Blood Cells-Urine 0-5 SEEN /hpf (0-5)
[2019-07-31 21:07] VITALS: BP 122/39; PULSE 103; RESP 19; O2SAT 88
[2019-07-31 22:25] VITALS: BMI 21.7
[2019-07-31] MEDS: 0.9% Normal Saline 1,000 ML 125 ML IV (23:00)
[2019-07-31 23:47] VITALS: BP 126/45; PULSE 98; RESP 18; TEMP 37.3; O2SAT 95
[2019-08-01] VITALS (8 sets, daily range): BP systolic 114–128; BP diastolic 40–62; PULSE 89–98; RESP 18–20; TEMP 37.2–37.8; O2SAT 93–98
[2019-08-01] MEDS: Famotidine 20 MG Tablet PO ×2 (00:06→11:06)
[2019-08-01] MEDS: Metoprolol(XL)Succ 50 MG Tablet PO ×3 (00:06→21:06)
[2019-08-01] MEDS: BRIMONIDINE 0.15% 5 ML Bottle 1 DRP EACH EYE ×3 (00:07→21:11)
[2019-08-01] MEDS: Latanoprost 0.005% 1 Bottle 1 DRP EACH EYE ×2 (00:08→21:05)
[2019-08-01 05:54] LABS: Absolute Lymphocyte Count 2.04 X10^3/uL (0.83-4.51); Basophil# 0.05 X10^3/uL; Basophil% 0.4 % (0-1); Eosinophil# 0.04 X10^3/uL; Eosinophils% 0.3 % (0-5); Hematocrit 42.6 % (37-47); Hemoglobin 13.6 g/dL (12.0-15.0); Lymphocyte # 2.04 X10^3/ul (4.0); Lymphocyte % 15.3 % (19-41); Mean Corp Hgb Conc 31.9 g/dL (32-36); Mean Corpuscular Hgb 30.6 pg (27.0-32.0); Mean Corpuscular Volume 95.7 fL (81-99); Mean Platelet Vol. 10.1 fl (6.2-12.0); Monocyte# 1.07 X10^3/uL; NRBC Flagged by Analyzer 0 % (0-5); Neutrophil # 10.03 X10^3/uL (2.7-7.7); Neutrophil % 75.2 % (47-70); Platelet Count 120 K/mm3 (150-450); RBC Distribution Width CV 15.6 % (11.6-14.6); RBC Distribution Width SD 55.2 fl (35.1-43.9); Red Blood Count 4.45 M/mm3 (4.2-5.4); White Blood Count 13.3 K/mm3 (4.4-11.0)
[2019-08-01] MEDS: metroNIDAZOLE 500 MG/100 ML BAG 100 MG IV ×3 (05:59→21:02)
[2019-08-01 06:19] LABS: ALB/GLOB Ratio 0.6 RATIO (0.9-2.4); AST(SGOT) 16 U/L (15-37); Alanine Aminotransfer ALT/SGPT 21 U/L (13-56); Albumin, Serum 2.5 g/dL (3.2-5.0); Alkaline Phosphatase 46 U/L (45-117); Anion Gap 7 (5-15); BUN 10 mg/dL (7-18); BUN/Creat Ratio 13.1 RATIO (10-20); Calcium,Total 7.6 mg/dL (8.5-10.1); Chloride 106 mmol/L (98-107); Creatinine, Serum 0.76 mg/dL (0.55-1.02); EST Glomerular Filtration Rate 78 mL/min (>60); Est Glom Filt Rate - Afr Amer 94 mL/min (>60); Estimated Creatinine Clearance 33.92 ml/min; Globulin 4.1 g/dL (2.2-4.2); Glucose 85 mg/dL (74-106); Potassium 3.2 mmol/L (3.5-5.1); Protein, Total 6.6 g/dL (6.4-8.2); Sodium Level 136 mmol/L (136-145)
[2019-08-01] MEDS: 0.9% Normal Saline 1,000 ML 125 ML IV (07:48)
--- NOTE | 2019-08-01 08:18 | PN_ITS ---
Patient Problems: Active and Suspected Problems (Last Reviewed 04/29/19 @ 14:10 by Elizabeth Jc) Sepsis (Acute) Rectosigmoid diverticulitis (Acute) Reason for Visit: Follow-up rectosigmoid diverticulitis Subjective: 79-year-old lady who presented with abdominal pain CT of the abdomen obtained on admission demonstrated rectosigmoid diverticulitis with a perforation admitted to regular nursing floor for further management. Objective: GENERAL: cooperative HEENT: Oral thrush EYES; Anicteric, Normal Conjunctiva NECK; supple, normal thyroid, RESPIRATORY: Diminished to auscultation CARDIOVASCULAR: Regular S1 S2, GI: Left lower quadrant abdominal pain : No Renal angle tenderness; EXTREMITIES: No edema, no clubbing, MUSCULOSKELETAL: no muscle waisting NEURO: Awake; no lateralizing signs. SKIN: No Rash PSYCH; Flat affect Vitals/I&O's: Vital Signs Temp Pulse Resp BP Pulse Ox 99.6 F H 95 20 H 128/40 H 93 08/01/19 05:57 08/01/19 05:57 08/01/19 05:57 08/01/19 05:57 08/01/19 05:57 Oxygen Flow Rate (L/min) 1.5 Oxygen Delivery Method Room Air Weight: 47.1 kg Body Mass Index (BMI) 21.7 Intake and Output for Last 24 Hours 07/30/19 07/31/19 08/01/19 23:59 23:59 23:59 Intake Total 1300 / 1300 907.08 / 907.08 Balance 1300 / 1300 907.08 / 907.08 Laboratory Results 07/31/19 18:20: WBC 15.3 H, RBC 5.13, Hgb 15.9 H, Hct 48.3 H, MCV 94.2, MCH 31.0, MCHC 32.9, RDW Std Deviation 54.5 H, RDW Coeff of Samreen 15.6 H, Plt Count 140 L, MPV 10.0, Immature Gran % (Auto) 0.900, Neut % (Auto) 73.8 H, Lymph % (Auto) 16.1 L, [place] % (Auto) 8.7, Eos % (Auto) 0.2, Baso % (Auto) 0.3, Absolute Neuts (auto) 11.3 H, Absolute Lymphs (auto) 2.47, Nucleated RBC % 0 07/31/19 18:20: Sodium 135 L, Potassium 3.5, Chloride 100, Carbon Dioxide 24.0, Anion Gap 11, BUN 13, Creatinine 0.97, Estim Creat Clear Calc 38.53, Est GFR (MDRD) Af Amer 71, Est GFR (MDRD) Non-Af 59 L, BUN/Creatinine Ratio 13.4, Glucose 103, Calcium 8.9, Total Bilirubin 2.30 H, AST 26, ALT 29, Alkaline Phosphatase 60, Total Protein 8.2, Albumin 3.3, Globulin 4.9 H, Albumin/Globulin Ratio 0.7 L, Lipase 56 L 07/31/19 18:49: Lactic Acid 1.5 07/31/19 20:12: Urine Color Yellow, Urine Clarity Clear, Urine pH 6.0, Ur Specific [place] 1.010, Urine Protein 30 H, Urine Glucose (UA) Normal, Urine Ketones 50 H, Urine Occult Blood 10 H, Urine Nitrite Negative, Urine Bilirubin Negative, Urine Urobilinogen Normal, Ur Leukocyte Esterase Negative, Urine RBC 0-5 SEEN, Urine WBC 0 SEEN, Ur Squamous Epith Cells 0-5 SEEN, Urine Bacteria 0 SEEN, Urine Mucus RARE 08/01/19 05:16: WBC 13.3 H, RBC 4.45, Hgb 13.6, Hct 42.6, MCV 95.7, MCH 30.6, MCHC 31.9 L, RDW Std Deviation 55.2 H, RDW Coeff of Samreen 15.6 H, Plt Count 120 L, MPV 10.1, Immature Gran % (Auto) 0.800, Neut % (Auto) 75.2 H, Lymph % (Auto) 15.3 L, [place] % (Auto) 8.0, Eos % (Auto) 0.3, Baso % (Auto) 0.4, Absolute Neuts (auto) 10.0 H, Absolute Lymphs (auto) 2.04, Nucleated RBC % 0 08/01/19 05:16: Sodium 136, Potassium 3.2 L, Chloride 106, Carbon Dioxide 23.0, Anion Gap 7, BUN 10, Creatinine 0.76, Estim Creat Clear Calc 33.92, Est GFR (MDRD) Af Amer 94, Est GFR (MDRD) Non-Af 78, BUN/Creatinine Ratio 13.1, Glucose 85, Calcium 7.6 L, Total Bilirubin 1.60 H, AST 16, ALT 21, Alkaline Phosphatase 46, Total Protein 6.6, Albumin 2.5 L, Globulin 4.1, Albumin/Globulin Ratio 0.6 L Current Medications Acetaminophen (Tylenol) 650 mg PO Q6H PRN PRN PRN Reason: Pain Score 1-3/Temp > 100.7 F Albuterol Sulfate (Ventolin Aerosols) 2.5 mg INHALATION Q2H PRN PRN PRN Reason: Shortness of Breath/Wheezing Brimonidine Tartrate (Alphagan P 0.15%) 1 drop EACH EYE BID [facility] Last Admin: 08/01/19 00:07 Dose: 1 drop Documented by: Budesonide (Budesonide Ec) 6 mg PO DAILY [facility] Calamine/Phenol (Calmoseptine Ointment) 1 applic TOPICAL 4X/DAY [facility]; Protocol Enoxaparin Sodium (Lovenox) 40 mg SC DAILY [facility] Famotidine (Pepcid) 20 mg PO BID [facility] Last Admin: 08/01/19 00:06 Dose: 20 mg Documented by: Glucagon () 1 mg IM .X1 PRN PRN Reason: Hypoglycemia Guaifenesin (Robitussin) 20 ml PO Q4H PRN PRN PRN Reason: COUGH Hydralazine HCl (Apresoline Iv) 10 mg IV Q4H PRN PRN PRN Reason: SBP > 160 Sodium Chloride () 1,000 mls @ 125 mls/hr IV .Q8H [facility] Last Admin: 08/01/19 07:48 Dose: 125 mls/hr Documented by: Ciprofloxacin (Cipro) 400 mg in 200 mls @ 200 mls/hr IV Q12 [facility] Metronidazole (Flagyl) 500 mg in 100 mls @ 100 mls/hr IV Q8 [facility] Last Admin: 08/01/19 05:59 Dose: 100 mls/hr Documented by: Dextrose (Dextrose 10%-Water) 250 mls @ 999 mls/hr IV .Q16M PRN; Protocol PRN Reason: HYPOGLYCEMIA Lactobacillus Acidophilus (Acidophilus) 1 tablet PO 4X/DAY [facility] Last Admin: 08/01/19 00:05 Dose: 1 tablet Documented by: Latanoprost (Xalatan Opthalmic) 1 drop EACH EYE QHS [facility] Last Admin: 08/01/19 00:08 Dose: 1 drop Documented by: Levothyroxine Sodium (Synthroid) 75 mcg PO DAILY@0600 [facility] Melatonin (Melatonin) 3 mg PO QHS PRN PRN PRN Reason: INSOMNIA Metoprolol Succinate (Toprol Xl (Beta Rosalind)) 50 mg PO BID [facility] Last Admin: 08/01/19 00:06 Dose: 50 mg Documented by: Morphine Sulfate () 4 mg IV Q3H PRN PRN PRN Reason: Pain Score 6-10/10 Nutritional Formula (Lactose Free) (Ensure Clear) 120 ml PO 4X/DAY [facility] Last Admin: 07/31/19 23:52 Dose: Not Given Documented by: Ondansetron HCl (Zofran) 4 mg IV Q8H PRN PRN PRN Reason: NAUSEA/VOMITING Oxycodone HCl (Oxyir) 10 mg PO Q4H PRN PRN PRN Reason: Pain Score 4-5/10 Potassium Chloride (K-Dur) 10 meq PO DAILY [facility] Prochlorperazine Edisylate (Compazine Iv) 5 mg IV Q4H PRN PRN PRN Reason: Breakthrough nausea/vomiting Sodium Chloride () 10 - 40 ml IV UD PRN PRN Reason: SALINE FLUSH Throat Lozenges (Cepacol Sore Throat Lozenge) 1 lozenge MUCOUS MEM Q2H PRN PRN PRN Reason: Sore throat or cough Timolol Maleate (Timoptic) 1 drop EACH EYE DAILY [facility] STROKE Vital Signs/Narrative: Vital Signs Temp Pulse Resp BP Pulse Ox 08/01/19 05:57 99.6 F H 95 20 H 128/40 H 93 Medical Necessity - Tobacco Use Smoking Status: Never smoker Tobacco Use: Non-smoker Assessment/Plan All Active Problems (Last Reviewed 04/29/19 @ 14:10 by Elizabeth Jc) Gastrointestinal bleeding, lower (Acute) AVM (arteriovenous malformation) of colon with hemorrhage (Resolved) Hyponatremia (Acute) Hemorrhoids (Acute) Diverticulosis (Acute) Sepsis (Acute) Gastroenteritis (Acute) Clostridioides difficile infection (Resolved) UTI (urinary tract infection) (Acute) Sepsis (Acute) Rectosigmoid diverticulitis (Acute) Acute blood loss anemia (Acute) Rectal bleeding (Acute) C. difficile colitis (Resolved) Nonhealing nonsurgical wound (Resolved) Shingles (Resolved) Traumatic open wound of right lower leg (Resolved) 79-year-old lady who presented with abdominal pain CT of the abdomen obtained on admission demonstrated rectosigmoid diverticulitis with a perforation admitted to regular nursing floor for further management. 1. Acute sigmoid diverticulitis ?Admitted to regular nursing floor managed with ciprofloxacin as well as metronidazole in addition to symptomatic treatment 2. Oral candidiasis ?Patient started on nystatin swish and swallow 3. Hypothyroidism ~patient is on levothyroxine home dose continued 4. Hypertension ~ blood pressure controlled, home medications continued with dose adjustment as needed 5. Monoclonal Gammopathy? ?Followed by patient PCP currently stable 6. Adrenal insufficiency Patient is on hydrocortisone 7. Autoimmune hepatitis ?Patient is on budesonide 8. Lupus ?Patient is on Plaquenil at home 9. DVT prophylaxis ?Enoxaparin 10. Hypokalemia ?Corrected per protocol Active Medications Acetaminophen (Tylenol) 650 mg PO Q6H PRN PRN PRN Reason: Pain Score 1-3/Temp > 100.7 F Albuterol Sulfate (Ventolin Aerosols) 2.5 mg INHALATION Q2H PRN PRN PRN Reason: Shortness of Breath/Wheezing Brimonidine Tartrate (Alphagan P 0.15%) 1 drop EACH EYE BID [facility] Last Admin: 08/01/19 00:07 Dose: 1 drop Documented by: Budesonide (Budesonide Ec) 6 mg PO DAILY [facility] Calamine/Phenol (Calmoseptine Ointment) 1 applic TOPICAL 4X/DAY [facility]; Protocol Enoxaparin Sodium (Lovenox) 40 mg SC DAILY [facility] Famotidine (Pepcid) 20 mg PO BID [facility] Last Admin: 08/01/19 00:06 Dose: 20 mg Documented by: Glucagon () 1 mg IM .X1 PRN PRN Reason: Hypoglycemia Guaifenesin (Robitussin) 20 ml PO Q4H PRN PRN PRN Reason: COUGH Hydralazine HCl (Apresoline Iv) 10 mg IV Q4H PRN PRN PRN Reason: SBP > 160 Sodium Chloride () 1,000 mls @ 125 mls/hr IV .Q8H [facility] Last Admin: 08/01/19 07:48 Dose: 125 mls/hr Documented by: Ciprofloxacin (Cipro) 400 mg in 200 mls @ 200 mls/hr IV Q12 [facility] Metronidazole (Flagyl) 500 mg in 100 mls @ 100 mls/hr IV Q8 [facility] Last Admin: 08/01/19 05:59 Dose: 100 mls/hr Documented by: Dextrose (Dextrose 10%-Water) 250 mls @ 999 mls/hr IV .Q16M PRN; Protocol PRN Reason: HYPOGLYCEMIA Lactobacillus Acidophilus (Acidophilus) 1 tablet PO 4X/DAY [facility] Last Admin: 08/01/19 00:05 Dose: 1 tablet Documented by: Latanoprost (Xalatan Opthalmic) 1 drop EACH EYE QHS [facility] Last Admin: 08/01/19 00:08 Dose: 1 drop Documented by: Levothyroxine Sodium (Synthroid) 75 mcg PO DAILY@0600 [facility] Melatonin (Melatonin) 3 mg PO QHS PRN PRN PRN Reason: INSOMNIA Metoprolol Succinate (Toprol Xl (Beta Rosalind)) 50 mg PO BID [facility] Last Admin: 08/01/19 00:06 Dose: 50 mg Documented by: Morphine Sulfate () 4 mg IV Q3H PRN PRN PRN Reason: Pain Score 6-10/10 Nutritional Formula (Lactose Free) (Ensure Clear) 120 ml PO 4X/DAY [facility] Last Admin: 07/31/19 23:52 Dose: Not Given Documented by: Ondansetron HCl (Zofran) 4 mg IV Q8H PRN PRN PRN Reason: NAUSEA/VOMITING Oxycodone HCl (Oxyir) 10 mg PO Q4H PRN PRN PRN Reason: Pain Score 4-5/10 Potassium Chloride (K-Dur) 10 meq PO DAILY [facility] Prochlorperazine Edisylate (Compazine Iv) 5 mg IV Q4H PRN PRN PRN Reason: Breakthrough nausea/vomiting Sodium Chloride () 10 - 40 ml IV UD PRN PRN Reason: SALINE FLUSH Throat Lozenges (Cepacol Sore Throat Lozenge) 1 lozenge MUCOUS MEM Q2H PRN PRN PRN Reason: Sore throat or cough Timolol Maleate (Timoptic) 1 drop EACH EYE DAILY [facility] Clinical Impression(s) from Imaging Studies Abdomen/Pelvis CT 07/31/19 18:34 IMPRESSION: 1. Rectosigmoid diverticulitis without perforation. 2. No other major change in findings when compared to the prior study. Electronically Signed: Lewis Tian DO at 20:14 EST Tel [phone], Service support , Code Visit Inpatient E&M: 68971 Subs Hosp L2
[2019-08-01] MEDS: Ciprofloxacin 400 MG/200 ML BAG 200 MG IV ×2 (10:35→22:07)
[2019-08-01] MEDS: Enoxaparin 40 MG/0.4 ML Syringe SC (10:39)
[2019-08-01] MEDS: Budesonide 3 MG CAPSULE.EC 6 MG PO (10:39)
[2019-08-01] MEDS: Levothyroxine 75 MCG Tablet PO (10:47)
--- NOTE | 2019-08-01 11:00 | CASEMGMT ---
RN CM Face to Face with patient for initial transition planning/care coordination assessment. RN CM introduced self and role at [facility]. Patient lying in bed, alert and oriented, daughter and son at bedside. Patient and daughter willing to participate in assessment and is able to answer all questions appropriately. Care providers, pharmacy, and demographics verified. Patient wishes to discharge home, denies need for home health at this time. Patient states she has no further needs or concerns at this time. CM to follow for discharge planning needs that may arise. PCP: Ashvin Cardenas Specialists: Chad, box lining machine feeder; Farzad, covering machine operator; Dina, community recreation coordinator; Wilder, GI; Gibson, endocrinology [place] Preferred Pharmacy: [facility] Insurance: [facility] Prescription Benefit: yes Living Will/HPOA: yes, Rm Espinoza LNOK: , daughter Living Arrangements: Patient lives at home with in 1 story home with no steps to enter the home. Patient independent at home. Transportation: Daughter DME/HHC: Patient has shower chair, cane, grab bars, walker at home. Family assists with care giving. Disposition Plan: Patient to return home with family support and follow-up plans in place. Melissa WATKINS, RN, CM
[2019-08-01] MEDS: Menthol/Lanolin/Calamine/Znox 113 GM Tube 1 APPLIC TOPICAL ×3 (11:06→21:07)
[2019-08-01] MEDS: NYSTATIN 500,000 UNIT/5 ML UDC 500000 UNIT PO ×4 (11:07→21:06)
[2019-08-01] MEDS: Timolol 0.5% 5ML OPTH.BTL 1 DRP EACH EYE (11:07)
[2019-08-01] MEDS: 0.9% Saline Lock 10 ML Syringe IV ×3 (12:17→23:21)
[2019-08-01] MEDS: Ondansetron 4 MG/2 ML Vial IV ×2 (12:17→23:20)
[2019-08-01] MEDS: Potassium Chloride 40 MEQ in 0.9% Normal Saline 1,000 ML 125 MEQ IV ×2 (12:20→22:10)
[2019-08-01] MEDS: Morphine 2 MG/ML Syringe IV (15:56)
[2019-08-01] MEDS: Acetaminophen 650 MG Suppository RECTAL (16:24)
[2019-08-02] VITALS (7 sets, daily range): BP systolic 131–135; BP diastolic 45–62; PULSE 81–91; RESP 18–20; TEMP 37.2–37.6; O2SAT 95
[2019-08-02] MEDS: proCHLORPERazine 10 MG/2 ML Vial 5 MG IV ×2 (01:32→15:41)
[2019-08-02] MEDS: 0.9% Saline Lock 10 ML Syringe IV (01:32)
[2019-08-02] MEDS: metroNIDAZOLE 500 MG/100 ML BAG 100 MG IV (06:50)
[2019-08-02] MEDS: Levothyroxine 75 MCG Tablet PO (06:51)
--- NOTE | 2019-08-02 07:53 | PCM.PN.HOSP ---
Patient Problems: Active and Suspected Problems (Last Reviewed 04/29/19 @ 14:10 by Elizabeth Jc) Sepsis (Acute) Rectosigmoid diverticulitis (Acute) Reason for Visit: Follow-up acute diverticulitis and new onset rash Subjective: Did develop maculopapular rash on her torso as well as proximal lower extremities nonpruritic. This is suspected to be secondary to drug reaction. Patient is currently on Cipro and Flagyl both discontinued patient started on Invanz. She still complains of lower abdominal pain Objective: GENERAL: cooperative HEENT: Oral thrush EYES; Anicteric, Normal Conjunctiva NECK; supple, normal thyroid, RESPIRATORY: Diminished to auscultation CARDIOVASCULAR: Regular S1 S2, GI: Left lower quadrant tenderness : No Renal angle tenderness; EXTREMITIES: No edema, no clubbing, MUSCULOSKELETAL: no muscle waisting NEURO: Awake; no lateralizing signs. SKIN: Papular rash on torso and proximal lower extremities PSYCH; Flat affect Vitals/I&O's: Vital Signs Temp Pulse Resp BP Pulse Ox 99.7 F H 91 18 132/62 H 95 08/02/19 03:12 08/02/19 03:12 08/02/19 03:12 08/02/19 03:12 08/02/19 07:46 Oxygen Flow Rate (L/min) 1 Oxygen Delivery Method Nasal Cannula Weight: 47.1 kg Body Mass Index (BMI) 21.7 Intake and Output for Last 24 Hours 07/31/19 08/01/19 08/02/19 23:59 23:59 23:59 Intake Total 1300 / 1300 3268.75 / 3298.75 1022.92 / 1022.92 Output Total 550 / 800 750 / 750 Balance 1300 / 1300 2718.75 / 2498.75 272.92 / 272.92 Current Medications Acetaminophen (Tylenol) 650 mg PO Q6H PRN PRN PRN Reason: Pain Score 1-3/Temp > 100.7 F Acetaminophen (Tylenol) 650 mg RECTAL Q6H PRN PRN PRN Reason: FEVER Last Admin: 08/01/19 16:24 Dose: 650 mg Documented by: Albuterol Sulfate (Ventolin Aerosols) 2.5 mg INHALATION Q2H PRN PRN PRN Reason: Shortness of Breath/Wheezing Brimonidine Tartrate (Alphagan P 0.15%) 1 drop EACH EYE BID [facility] Last Admin: 08/01/19 21:11 Dose: 1 drop Documented by: Budesonide (Budesonide Ec) 3 mg PO DAILY [facility] Calamine/Phenol (Calmoseptine Ointment) 1 applic TOPICAL 4X/DAY [facility]; Protocol Last Admin: 08/01/19 21:07 Dose: 1 applicatio Documented by: Calcium Carbonate (Tums) 500 mg PO BIDCM [facility] Last Admin: 08/01/19 16:01 Dose: Not Given Documented by: Enoxaparin Sodium (Lovenox) 40 mg SC DAILY [facility] Last Admin: 08/01/19 10:39 Dose: 40 mg Documented by: Famotidine (Pepcid) 20 mg PO BID [facility] Last Admin: 08/01/19 21:06 Dose: Not Given Documented by: Glucagon () 1 mg IM .X1 PRN PRN Reason: Hypoglycemia Guaifenesin (Robitussin) 20 ml PO Q4H PRN PRN PRN Reason: COUGH Hydralazine HCl (Apresoline Iv) 10 mg IV Q4H PRN PRN PRN Reason: SBP > 160 Hydrocortisone (Cortef) 10 mg PO DAILY@0800 [facility] Ciprofloxacin (Cipro) 400 mg in 200 mls @ 200 mls/hr IV Q12 [facility] Last Infusion: 08/01/19 23:07 Dose: Infused Documented by: Metronidazole (Flagyl) 500 mg in 100 mls @ 100 mls/hr IV Q8 [facility] Last Admin: 08/02/19 06:50 Dose: 100 mls/hr Documented by: Dextrose (Dextrose 10%-Water) 250 mls @ 999 mls/hr IV .Q16M PRN; Protocol PRN Reason: HYPOGLYCEMIA Potassium Chloride 40 meq/ (Sodium Chloride) 1,020 mls @ 125 mls/hr IV .Q8H10M [facility] Last Infusion: 08/02/19 06:54 Dose: 0 mls/hr Documented by: Lactobacillus Acidophilus (Acidophilus) 1 tablet PO 4X/DAY [facility] Last Admin: 08/01/19 21:07 Dose: Not Given Documented by: Latanoprost (Xalatan Opthalmic) 1 drop EACH EYE QHS [facility] Last Admin: 08/01/19 21:05 Dose: 1 drop Documented by: Levothyroxine Sodium (Synthroid) 75 mcg PO DAILY@0600 [facility] Last Admin: 08/02/19 06:51 Dose: 75 mcg Documented by: Melatonin (Melatonin) 3 mg PO QHS PRN PRN PRN Reason: INSOMNIA Metoprolol Succinate (Toprol Xl (Beta Rosalind)) 50 mg PO BID [facility] Last Admin: 08/01/19 21:06 Dose: 50 mg Documented by: Morphine Sulfate () 2 mg IV Q3H PRN PRN PRN Reason: Pain Score 6-10/10 Last Admin: 08/01/19 15:56 Dose: 2 mg Documented by: Nutritional Formula (Lactose Free) (Ensure Clear) 120 ml PO 4X/DAY [facility] Last Admin: 08/01/19 21:12 Dose: Not Given Documented by: Nystatin (Nystatin) 500,000 unit PO 4X/DAY [facility] Last Admin: 08/01/19 21:06 Dose: 500,000 unit Documented by: Ondansetron HCl (Zofran) 4 mg IV Q8H PRN PRN PRN Reason: NAUSEA/VOMITING Last Admin: 08/01/19 23:20 Dose: 4 mg Documented by: Oxycodone HCl (Oxyir) 10 mg PO Q4H PRN PRN PRN Reason: Pain Score 4-5/10 Potassium Chloride (K-Dur) 10 meq PO DAILY [facility] Last Admin: 08/01/19 11:01 Dose: 10 meq Documented by: Prochlorperazine Edisylate (Compazine Iv) 5 mg IV Q4H PRN PRN PRN Reason: Breakthrough nausea/vomiting Last Admin: 08/02/19 01:32 Dose: 5 mg Documented by: Sodium Chloride () 10 - 40 ml IV UD PRN PRN Reason: SALINE FLUSH Last Admin: 08/02/19 01:32 Dose: 20 ml Documented by: Throat Lozenges (Cepacol Sore Throat Lozenge) 1 lozenge MUCOUS MEM Q2H PRN PRN PRN Reason: Sore throat or cough Timolol Maleate (Timoptic) 1 drop EACH EYE DAILY [facility] Last Admin: 08/01/19 11:07 Dose: 1 drop Documented by: STROKE Vital Signs/Narrative: Vital Signs Pulse Ox 08/02/19 07:46 95 Medical Necessity - Tobacco Use Smoking Status: Never smoker Tobacco Use: Non-smoker Assessment/Plan All Active Problems (Last Reviewed 04/29/19 @ 14:10 by Elizabeth Jc) Gastrointestinal bleeding, lower (Acute) AVM (arteriovenous malformation) of colon with hemorrhage (Resolved) Hyponatremia (Acute) Hemorrhoids (Acute) Diverticulosis (Acute) Sepsis (Acute) Gastroenteritis (Acute) Clostridioides difficile infection (Resolved) UTI (urinary tract infection) (Acute) Sepsis (Acute) Rectosigmoid diverticulitis (Acute) Acute blood loss anemia (Acute) Rectal bleeding (Acute) C. difficile colitis (Resolved) Nonhealing nonsurgical wound (Resolved) Shingles (Resolved) Traumatic open wound of right lower leg (Resolved) 79-year-old lady who presented with abdominal pain CT of the abdomen obtained on admission demonstrated rectosigmoid diverticulitis with a perforation admitted to regular nursing floor for further management. 1. Acute sigmoid diverticulitis ?Admitted to regular nursing floor managed with ciprofloxacin as well as metronidazole in addition to symptomatic treatment ?08/02/2019: Patient had allergic reaction possibly drug related her Cipro and Flagyl subsequently discontinued patient started on Invanz 2. Oral candidiasis ?Patient started on nystatin swish and swallow 3. Hypothyroidism ~patient is on levothyroxine home dose continued 4. Hypertension ~ blood pressure controlled, home medications continued with dose adjustment as needed 5. Monoclonal Gammopathy? ?Followed by patient PCP currently stable 6. Adrenal insufficiency Patient is on hydrocortisone 7. Autoimmune hepatitis ?Patient is on budesonide 8. Lupus ?Patient is on Plaquenil at home 9. DVT prophylaxis ?Enoxaparin 10. Hypokalemia ?Corrected per protocol 11. Suspected drug reaction ?The only new medications started since patient admission with her antibiotics. She has since been discontinued. Code Visit Inpatient E&M: 66287 Subs Hosp L2
[2019-08-02 08:05] LABS: Hematocrit 39.3 % (37-47); Hemoglobin 12.4 g/dL (12.0-15.0); Mean Corp Hgb Conc 31.6 g/dL (32-36); Mean Corpuscular Hgb 30.8 pg (27.0-32.0); Mean Corpuscular Volume 97.8 fL (81-99); Mean Platelet Vol. 10.6 fl (6.2-12.0); Platelet Count 108 K/mm3 (150-450); RBC Distribution Width CV 15.7 % (11.6-14.6); RBC Distribution Width SD 56.7 fl (35.1-43.9); Red Blood Count 4.02 M/mm3 (4.2-5.4); White Blood Count 10.7 K/mm3 (4.4-11.0)
[2019-08-02 08:24] LABS: Anion Gap 9 (5-15); BUN 7 mg/dL (7-18); BUN/Creat Ratio 10.7 RATIO (10-20); Calcium,Total 7.8 mg/dL (8.5-10.1); Chloride 113 mmol/L (98-107); Creatinine, Serum 0.66 mg/dL (0.55-1.02); EST Glomerular Filtration Rate 93 mL/min (>60); Est Glom Filt Rate - Afr Amer 112 mL/min (>60); Estimated Creatinine Clearance 33.92 ml/min; Glucose 63 mg/dL (74-106); Magnesium 1.8 mg/dL (1.6-2.6); Potassium 4.4 mmol/L (3.5-5.1); Sodium Level 138 mmol/L (136-145)
[2019-08-02] MEDS: Potassium Chloride 40 MEQ in 0.9% Normal Saline 1,000 ML 125 MEQ IV ×2 (08:38→18:47)
[2019-08-02] MEDS: Hydrocortisone 10 MG Tablet PO (11:09)
[2019-08-02] MEDS: Ondansetron 4 MG/2 ML Vial IV (11:09)
[2019-08-02] MEDS: NYSTATIN 500,000 UNIT/5 ML UDC 500000 UNIT PO ×2 (11:09→18:46)
[2019-08-02] MEDS: BRIMONIDINE 0.15% 5 ML Bottle 1 DRP EACH EYE ×2 (11:10→21:51)
[2019-08-02] MEDS: Timolol 0.5% 5ML OPTH.BTL 1 DRP EACH EYE (11:10)
[2019-08-02] MEDS: Menthol/Lanolin/Calamine/Znox 113 GM Tube 1 APPLIC TOPICAL ×4 (11:12→21:54)
[2019-08-02] MEDS: Metoprolol(XL)Succ 50 MG Tablet PO ×2 (11:12→21:51)
[2019-08-02] MEDS: Enoxaparin 40 MG/0.4 ML Syringe SC (11:13)
[2019-08-02] MEDS: Budesonide 3 MG CAPSULE.EC PO (11:13)
[2019-08-02] MEDS: Morphine 2 MG/ML Syringe IV (11:51)
[2019-08-02] MEDS: Latanoprost 0.005% 1 Bottle 1 DRP EACH EYE (21:48)
[2019-08-02] MEDS: Famotidine 20 MG Tablet PO (21:51)
[2019-08-03] VITALS (8 sets, daily range): BP systolic 130–163; BP diastolic 54–72; PULSE 71–76; RESP 16–18; TEMP 36.7–36.9; O2SAT 95–97
[2019-08-03] MEDS: Potassium Chloride 40 MEQ in 0.9% Normal Saline 1,000 ML 125 MEQ IV ×3 (03:25→21:32)
[2019-08-03] MEDS: Levothyroxine 75 MCG Tablet PO (05:35)
[2019-08-03 07:06] LABS: Hematocrit 41.1 % (37-47); Hemoglobin 13.3 g/dL (12.0-15.0); Mean Corp Hgb Conc 32.4 g/dL (32-36); Mean Corpuscular Hgb 31.1 pg (27.0-32.0); Mean Corpuscular Volume 96.3 fL (81-99); Mean Platelet Vol. 10.7 fl (6.2-12.0); Platelet Count 133 K/mm3 (150-450); RBC Distribution Width CV 15.4 % (11.6-14.6); RBC Distribution Width SD 54.7 fl (35.1-43.9); Red Blood Count 4.27 M/mm3 (4.2-5.4)
[2019-08-03 07:18] LABS: Anion Gap 9 (5-15); BUN 9 mg/dL (7-18); BUN/Creat Ratio 13.7 RATIO (10-20); Calcium,Total 8.3 mg/dL (8.5-10.1); Chloride 112 mmol/L (98-107); Creatinine, Serum 0.66 mg/dL (0.55-1.02); EST Glomerular Filtration Rate 92 mL/min (>60); Est Glom Filt Rate - Afr Amer 112 mL/min (>60); Estimated Creatinine Clearance 33.92 ml/min; Glucose 65 mg/dL (74-106); Potassium 4.9 mmol/L (3.5-5.1); Sodium Level 137 mmol/L (136-145)
--- NOTE | 2019-08-03 07:53 | PN_ITS ---
Patient Problems: Active and Suspected Problems (Last Reviewed 04/29/19 @ 14:10 by Elizabeth Jc) Sepsis (Acute) Rectosigmoid diverticulitis (Acute) Reason for Visit: Follow-up acute diverticulitis Subjective: Patient seen admitted to some improvement in her overall condition. Her antibiotic therapy was adjusted the day prior following possible adverse drug reaction. Patient was started on Invanz. She was on Cipro and Flagyl discontinued. WBC count trending down. Plan is to start patient on clear liquids and advance as tolerated. Objective: GENERAL: cooperative HEENT: Oral thrush EYES; Anicteric, Normal Conjunctiva NECK; supple, normal thyroid, RESPIRATORY: Diminished to auscultation CARDIOVASCULAR: Regular S1 S2, GI: Left lower quadrant tenderness : No Renal angle tenderness; EXTREMITIES: No edema, no clubbing, MUSCULOSKELETAL: no muscle waisting NEURO: Awake; no lateralizing signs. SKIN: Papular rash on torso and proximal lower extremities again (less intense compared to the previous day) PSYCH; Flat affect Vitals/I&O's: Vital Signs Temp Pulse Resp BP Pulse Ox 98.0 F 74 18 136/54 H 96 08/03/19 03:20 08/03/19 03:20 08/03/19 03:20 08/03/19 03:20 08/03/19 07:34 Oxygen Flow Rate (L/min) 1 Oxygen Delivery Method Nasal Cannula Weight: 47.1 kg Body Mass Index (BMI) 21.7 Intake and Output for Last 24 Hours 08/01/19 08/02/19 08/03/19 23:59 23:59 23:59 Intake Total 3268.75 / 3298.75 2300.00 / 2350.00 1120 / 1120 Output Total 550 / 800 1500 / 2400 1600 / 1600 Balance 2718.75 / 2498.75 800.00 / -50.00 -480 / -480 Laboratory Results 08/02/19 06:43: WBC 10.7, RBC 4.02 L, Hgb 12.4, Hct 39.3, MCV 97.8, MCH 30.8, MCHC 31.6 L, RDW Std Deviation 56.7 H, RDW Coeff of Samreen 15.7 H, Plt Count 108 L, MPV 10.6 08/02/19 06:43: Sodium 138, Potassium 4.4, Chloride 113 H, Carbon Dioxide 16.0 L , Anion Gap 9, BUN 7, Creatinine 0.66, Estim Creat Clear Calc 33.92, Est GFR (MDRD) Af Amer 112, Est GFR (MDRD) Non-Af 93, BUN/Creatinine Ratio 10.7, Glucose 63 L, Calcium 7.8 L, Magnesium 1.8 08/03/19 05:41: WBC 8.0, RBC 4.27, Hgb 13.3, Hct 41.1, MCV 96.3, MCH 31.1, MCHC 32.4, RDW Std Deviation 54.7 H, RDW Coeff of Samreen 15.4 H, Plt Count 133 L, MPV 10.7 08/03/19 05:41: Sodium 137, Potassium 4.9, Chloride 112 H, Carbon Dioxide 16.0 L , Anion Gap 9, BUN 9, Creatinine 0.66, Estim Creat Clear Calc 33.92, Est GFR (MDRD) Af Amer 112, Est GFR (MDRD) Non-Af 92, BUN/Creatinine Ratio 13.7, Glucose 65 L, Calcium 8.3 L Current Medications Acetaminophen (Tylenol) 650 mg PO Q6H PRN PRN PRN Reason: Pain Score 1-3/Temp > 100.7 F Acetaminophen (Tylenol) 650 mg RECTAL Q6H PRN PRN PRN Reason: FEVER Last Admin: 08/01/19 16:24 Dose: 650 mg Documented by: Albuterol Sulfate (Ventolin Aerosols) 2.5 mg INHALATION Q2H PRN PRN PRN Reason: Shortness of Breath/Wheezing Brimonidine Tartrate (Alphagan P 0.15%) 1 drop EACH EYE BID [facility] Last Admin: 08/02/19 21:51 Dose: 1 drop Documented by: Budesonide (Budesonide Ec) 3 mg PO DAILY [facility] Last Admin: 08/02/19 11:13 Dose: 3 mg Documented by: Calamine/Phenol (Calmoseptine Ointment) 1 applic TOPICAL 4X/DAY [facility]; Protocol Last Admin: 08/02/19 21:54 Dose: 1 applicatio Documented by: [facility]) [facility] Last Admin: 08/02/19 15:27 Dose: Not Given Documented by: Diphenhydramine HCl (Benadryl) 25 mg PO Q6H PRN PRN PRN Reason: rash/itching. Enoxaparin Sodium (Lovenox) 40 mg SC DAILY [facility] Last Admin: 08/02/19 11:13 Dose: 40 mg Documented by: Famotidine (Pepcid) 20 mg PO BID [facility] Last Admin: 08/02/19 21:51 Dose: 20 mg Documented by: Glucagon () 1 mg IM .X1 PRN PRN Reason: Hypoglycemia Guaifenesin (Robitussin) 20 ml PO Q4H PRN PRN PRN Reason: COUGH Hydralazine HCl (Apresoline Iv) 10 mg IV Q4H PRN PRN PRN Reason: SBP > 160 Hydrocortisone (Cortef) 10 mg PO DAILY@0800 [facility] Last Admin: 08/02/19 11:09 Dose: 10 mg Documented by: Hydroxychloroquine Sulfate (Plaquenil) 200 [facility] Dextrose (Dextrose 10%-Water) 250 mls @ 999 mls/hr IV .Q16M PRN; Protocol PRN Reason: HYPOGLYCEMIA Potassium Chloride 40 meq/ (Sodium Chloride) 1,020 mls @ 125 mls/hr IV .Q8H10M [facility] Last Admin: 08/03/19 03:25 Dose: 125 mls/hr Documented by: Ertapenem 1 gm/ Sodium (Chloride) 60 mls @ 100 mls/hr IV Q24 [facility] Last Infusion: 08/02/19 12:34 Dose: Infused Documented by: Lactobacillus Acidophilus (Acidophilus) 1 tablet PO 4X/DAY [facility] Last Admin: 08/02/19 21:51 Dose: 1 tablet Documented by: Latanoprost (Xalatan Opthalmic) 1 drop EACH EYE QHS [facility] Last Admin: 08/02/19 21:48 Dose: 1 drop Documented by: Levothyroxine Sodium (Synthroid) 75 mcg PO DAILY@0600 [facility] Last Admin: 08/03/19 05:35 Dose: 75 mcg Documented by: Melatonin (Melatonin) 3 mg PO QHS PRN PRN PRN Reason: INSOMNIA Metoprolol Succinate (Toprol Xl (Beta Rosalind)) 50 mg PO BID [facility] Last Admin: 08/02/19 21:51 Dose: 50 mg Documented by: Morphine Sulfate () 2 mg IV Q3H PRN PRN PRN Reason: Pain Score 6-10/10 Last Admin: 08/02/19 11:51 Dose: 2 mg Documented by: Nutritional Formula (Lactose Free) (Ensure Clear) 120 ml PO 4X/DAY [facility] Last Admin: 08/02/19 21:55 Dose: Not Given Documented by: Nystatin (Nystatin) 500,000 unit PO 4X/DAY [facility] Last Admin: 08/02/19 21:56 Dose: Not Given Documented by: Oxycodone HCl (Oxyir) 10 mg PO Q4H PRN PRN PRN Reason: Pain Score 4-5/10 Potassium Chloride (K-Dur) 10 meq PO DAILY [facility] Last Admin: 08/02/19 11:06 Dose: Not Given Documented by: Prochlorperazine Edisylate (Compazine Iv) 5 mg IV Q4H PRN PRN PRN Reason: Breakthrough nausea/vomiting Last Admin: 08/02/19 15:41 Dose: 5 mg Documented by: Promethazine HCl (Phenergan) 12.5 mg IM Q6H PRN PRN PRN Reason: NAUSEA/VOMITING Sodium Chloride () 10 - 40 ml IV UD PRN PRN Reason: SALINE FLUSH Last Admin: 08/02/19 01:32 Dose: 20 ml Documented by: Throat Lozenges (Cepacol Sore Throat Lozenge) 1 lozenge MUCOUS MEM Q2H PRN PRN PRN Reason: Sore throat or cough Timolol Maleate (Timoptic) 1 drop EACH EYE DAILY [facility] Last Admin: 08/02/19 11:10 Dose: 1 drop Documented by: STROKE Vital Signs/Narrative: Vital Signs Pulse Ox 08/03/19 07:34 96 Medical Necessity - Tobacco Use Smoking Status: Never smoker Tobacco Use: Non-smoker Assessment/Plan All Active Problems (Last Reviewed 04/29/19 @ 14:10 by Elizabeth Jc) Gastrointestinal bleeding, lower (Acute) AVM (arteriovenous malformation) of colon with hemorrhage (Resolved) Hyponatremia (Acute) Hemorrhoids (Acute) Diverticulosis (Acute) Sepsis (Acute) Gastroenteritis (Acute) Clostridioides difficile infection (Resolved) UTI (urinary tract infection) (Acute) Sepsis (Acute) Rectosigmoid diverticulitis (Acute) Acute blood loss anemia (Acute) Rectal bleeding (Acute) C. difficile colitis (Resolved) Nonhealing nonsurgical wound (Resolved) Shingles (Resolved) Traumatic open wound of right lower leg (Resolved) 79-year-old lady who presented with abdominal pain CT of the abdomen obtained on admission demonstrated rectosigmoid diverticulitis with a perforation admitted to regular nursing floor for further management. 1. Acute sigmoid diverticulitis ?Admitted to regular nursing floor managed with ciprofloxacin as well as metronidazole in addition to symptomatic treatment ?08/02/2019: Patient had allergic reaction possibly drug related her Cipro and Flagyl subsequently discontinued patient started on Invanz ?08/03/2019;Patient seen admitted to some improvement in her overall condition. Her antibiotic therapy was adjusted the day prior following possible adverse drug reaction. Patient was started on Invanz. She was on Cipro and Flagyl discontinued. WBC count trending down. Plan is to start patient on clear liquids and advance as tolerated. 2. Oral candidiasis ?Patient started on nystatin swish and swallow 3. Hypothyroidism ~patient is on levothyroxine home dose continued 4. Hypertension ~ blood pressure controlled, home medications continued with dose adjustment as needed 5. Monoclonal Gammopathy? ?Followed by patient PCP currently stable 6. Adrenal insufficiency Patient is on hydrocortisone 7. Autoimmune hepatitis ?Patient is on budesonide 8. Lupus ?Patient is on Plaquenil at home 9. DVT prophylaxis ?Enoxaparin 10. Hypokalemia ?Corrected per protocol 11. Suspected drug reaction ?The only new medications started since patient admission with her antibiotics. She has since been discontinued. Code Visit Inpatient E&M: 32092 Subs Hosp L2
[2019-08-03] MEDS: Budesonide 3 MG CAPSULE.EC PO (08:43)
[2019-08-03] MEDS: Famotidine 20 MG Tablet PO ×2 (08:43→21:31)
[2019-08-03] MEDS: Hydrocortisone 10 MG Tablet PO (08:44)
[2019-08-03] MEDS: BRIMONIDINE 0.15% 5 ML Bottle 1 DRP EACH EYE ×2 (08:45→21:31)
[2019-08-03] MEDS: Ensure Clear 120 ML Liquid PO ×2 (08:46→14:16)
[2019-08-03] MEDS: NYSTATIN 500,000 UNIT/5 ML UDC 500000 UNIT PO ×3 (08:47→21:31)
[2019-08-03] MEDS: Metoprolol(XL)Succ 50 MG Tablet PO ×2 (08:49→21:31)
[2019-08-03] MEDS: Menthol/Lanolin/Calamine/Znox 113 GM Tube 1 APPLIC TOPICAL ×4 (10:17→21:31)
[2019-08-03] MEDS: Timolol 0.5% 5ML OPTH.BTL 1 DRP EACH EYE (10:18)
[2019-08-03] MEDS: Enoxaparin 40 MG/0.4 ML Syringe SC (10:18)
[2019-08-03] MEDS: Hydroxychloroquine 200 MG Tablet PO (17:12)
[2019-08-03] MEDS: proCHLORPERazine 10 MG/2 ML Vial 5 MG IV (17:20)
[2019-08-03] MEDS: 0.9% Saline Lock 10 ML Syringe IV (17:21)
[2019-08-03] MEDS: Latanoprost 0.005% 1 Bottle 1 DRP EACH EYE (21:32)
[2019-08-04] VITALS (7 sets, daily range): BP systolic 147–158; BP diastolic 49–72; PULSE 70–76; RESP 16–20; TEMP 36.6–37.1; O2SAT 96–98
[2019-08-04] MEDS: Levothyroxine 75 MCG Tablet PO (05:37)
[2019-08-04] MEDS: Potassium Chloride 40 MEQ in 0.9% Normal Saline 1,000 ML 125 MEQ IV (05:37)
[2019-08-04 06:46] LABS: Hemoglobin 12.1 g/dL (12.0-15.0); Mean Corp Hgb Conc 32.7 g/dL (32-36); Mean Corpuscular Hgb 30.7 pg (27.0-32.0); Mean Corpuscular Volume 93.9 fL (81-99); Mean Platelet Vol. 10.3 fl (6.2-12.0); Platelet Count 138 K/mm3 (150-450); RBC Distribution Width SD 51.8 fl (35.1-43.9); Red Blood Count 3.94 M/mm3 (4.2-5.4)
[2019-08-04 07:05] LABS: Anion Gap 7 (5-15); BUN 6 mg/dL (7-18); BUN/Creat Ratio 10.3 RATIO (10-20); Calcium,Total 8.1 mg/dL (8.5-10.1); Chloride 113 mmol/L (98-107); Creatinine, Serum 0.58 mg/dL (0.55-1.02); EST Glomerular Filtration Rate 106 mL/min (>60); Est Glom Filt Rate - Afr Amer 128 mL/min (>60); Estimated Creatinine Clearance 33.92 ml/min; Glucose 91 mg/dL (74-106); Potassium 4.2 mmol/L (3.5-5.1); Sodium Level 138 mmol/L (136-145)
[2019-08-04] MEDS: Calcium Carbonate 500 MG Tablet PO (09:09)
[2019-08-04] MEDS: Hydroxychloroquine 200 MG Tablet PO (09:10)
[2019-08-04] MEDS: Hydrocortisone 10 MG Tablet PO (09:10)
[2019-08-04] MEDS: Famotidine 20 MG Tablet PO ×2 (09:10→21:16)
[2019-08-04] MEDS: Metoprolol(XL)Succ 50 MG Tablet PO ×2 (09:11→21:16)
[2019-08-04] MEDS: Budesonide 3 MG CAPSULE.EC PO (09:11)
[2019-08-04] MEDS: BRIMONIDINE 0.15% 5 ML Bottle 1 DRP EACH EYE ×2 (09:11→21:16)
[2019-08-04] MEDS: NYSTATIN 500,000 UNIT/5 ML UDC 500000 UNIT PO ×4 (09:12→21:17)
--- NOTE | 2019-08-04 11:47 | DCINST_ITS ---
- Discharge Diagnoses Current Active Problems: Current Active and Chronic Problems (Last Reviewed 04/29/19 @ 14:10 by Elizabeth Jc) Sepsis (Acute) Rectosigmoid diverticulitis (Acute) You will use the following diet at home:: Regular, Other - Light diet, advance as tolerated. Your food should be the consistency of: Regular Discharge Activity: Return to Normal Activity Weight Bearing Status: Weight bearing as tolerated Call your doctor if you observe: Fever of 101 or Higher, Shortness of breath, Dizziness, Fainting spells, Chest pain, Increased palpitations (irregular heartbeat), Uncontrolled pain Allergies/Adverse Reactions: Allergies griseofulvin ultramicrosize [From Priti-PEG (ultramicrosize)] Allergy (Severe, Verified 07/31/19 18:12) RACING HEART AND SEVERE H/A Penicillins Allergy (Severe, Verified 08/01/19 11:11) Hives azathioprine [From Imuran] Adverse Reaction (Severe, Verified 07/31/19 18:12) Nausea/Vom/Diarrhea azathioprine sodium [From Imuran] Adverse Reaction (Severe, Verified 07/31/19 18:12) Nausea/Vom/Diarrhea Medications to take at Discharge Bimatoprost [Lumigan Opthalmic] 1 drp EACH EYE QHS 06/23/17 Brimonidine 0.15% [Alphagan P 0.15%] 1 drp EACH EYE BID 06/23/17 Budesonide [Budesonide EC] 3 mg PO DAILY 06/23/17 Hydroxychloroquine [Plaquenil] 200 mg PO DAILYCM 06/23/17 Levothyroxine Sodium [Synthroid] 75 mcg PO DAILY 06/23/17 Timolol 0.5% [Timoptic] 1 drp EACH EYE DAILY 06/23/17 Metoprolol Succinate [Toprol Xl] 50 mg PO BID 06/04/19 Potassium Chloride 10 meq PO DAILY 06/04/19 Ensure Clear 120 ml PO 4X/DAY #120 liquid 06/08/19 Cholecalciferol (Vitamin D3) [Vitamin D3] 2,000 unit PO DAILY 07/30/19 Lactobacillus Acidophilus [Acidophilus] 2 tab PO DAILY 07/30/19 Hydrocortisone 10 mg PO DAILY PRN PRN 07/31/19 Calcium Citrate 200 mg PO BID 08/01/19 Cefuroxime Axetil [Ceftin] 500 mg PO Q12 #40 tab 08/04/19 Nystatin 500,000 unit PO 4X/DAY #30 [facility] 08/04/19 metroNIDAZOLE [Flagyl] 500 mg PO TIDCM #30 tab 08/04/19 The following prescriptions were given: Cefuroxime Axetil [Ceftin] 500 mg PO Q12 #40 tab Transmission Status: Pending to [id number] metroNIDAZOLE [Flagyl] 500 mg PO TIDCM #30 tab Transmission Status: Pending to [id number] Nystatin 500,000 unit PO 4X/DAY #30 ud[facility] Transmission Status: Pending to [id number] Primary Care Physician: Ashvin Cardenas MD [Primary Care Provider] - Please follow up with your Primary Care Physician in: 1 WEEK. Test Results: Test results from this visit will be discussed in further detail at your follow- up appointment, if applicable.
[2019-08-04] MEDS: CEFUROXIME AXETIL 250 MG TABLET 500 MG PO ×2 (12:03→21:16)
[2019-08-04] MEDS: Timolol 0.5% 5ML OPTH.BTL 1 DRP EACH EYE (12:06)
[2019-08-04] MEDS: metroNIDAZOLE 500 MG Tablet PO (13:10)
--- NOTE | 2019-08-04 13:51 | MRI_ITS ---
STUDY: MRI BRAIN WITHOUT CONTRAST REASON FOR EXAM: Female, 79 years old. CONFUSION, HALLUCINATION -- rt eye/ facial droop since last sunday TECHNIQUE: Standardized multiplanar fat and water weighted pulse sequences were obtained. COMPARISON: CT 07/30/2019, MRI 06/30/2014 FINDINGS: There is mild cerebral atrophy with widening of the extra-axial spaces and ventricular dilatation. There are a limited number of small white matter hyperintensities, distributed throughout the deep white matter tracts of the cerebral hemispheres, consistent with mild chronic white matter ischemic changes. There is no evidence for recent intracranial ischemia or other cause of cytotoxic edema on diffusion weighted imaging (DWI). Normal T2* images of the brain without demonstrated susceptibility artifact. There is no demonstrated hemosiderin stain. Normal bilateral basal ganglia. Normal thalami. There is no extra-axial fluid accumulation. Normal flow voids within the major intracranial circulation suggesting patency by spin echo criteria. Normal sella turcica, pituitary gland, infundibular stalk, optic chiasm and hypothalamus. Normal tectal plate and pineal gland. Normal midbrain, elida and medulla. Normal cerebellum. Normal basal cisterns. Normal bilateral temporal bones. Normal bilateral internal auditory canals. There are bilateral ocular lens implants with otherwise normal intraorbital contents. Normal visualized paranasal sinuses. Normal calvarium and skull base. Normal visualized soft tissue structures. Normal visualized upper cervical spine. MRI/Brain without Contrast IMPRESSION: Involutional changes of the brain, as described above. Electronically Signed: Alexis Caban MD at 15:31 EST Tel , Service support ,
--- NOTE | 2019-08-04 13:53 | PN_ITS ---
Patient Problems: Active and Suspected Problems (Last Updated 08/04/19 @ 13:57 by Henna Barbosa MD) Sepsis (Acute) Rectosigmoid diverticulitis (Acute) Subjective: Chief complaint: Follow-up after admission for acute diverticulitis of the rectosigmoid with sepsis. She was discharged this morning but later, daughter mentioned that her mother has been having hallucinations, acting strangely which is unusual to her. Patient seen and examined. Initially, patient was seen in the morning. She denied any complaints. She has been tolerating diet. Abdominal pain is improving, some tenderness. Denied nausea vomiting denied fever or chills. Later, patient's daughter is concerned about change in her mental status. Patient's daughter mentioned that patient has been seeing things, hallucinating and acting unusual. I went to see the patient again this afternoon. The patient herself mentioned that she was not confused and she was draining. Her daughter was trying to convince the patient that she was confused and she was trying to get out of bed. Again, patient mentioned to her daughter that you are acting out of proportion. At the time was for the patient, patient was alert and oriented x3. She was given Flagyl and she started having nausea. Her vital signs are stable. Discharge was canceled. - Physical Exam Vitals/I&O's: Vital Signs Temp Pulse Resp BP Pulse Ox 97.9 F 72 18 158/58 H 96 08/04/19 09:07 08/04/19 09:11 08/04/19 09:07 08/04/19 09:07 08/04/19 09:07 Oxygen Flow Rate (L/min) 1 Oxygen Delivery Method Room Air Weight: 103 lb 13.404 oz Body Mass Index (BMI) 21.7 Intake and Output for Last 24 Hours 08/02/19 08/03/19 08/04/19 23:59 23:59 23:59 Intake Total 2300.00 / 2350.00 3820 / 4320 1710.42 / 1710.42 Output Total 1500 / 2400 3600 / 4250 2200 / 2200 Balance 800.00 / -50.00 220 / 70 -489.58 / -489.58 General: Alert, Oriented x3, Cooperative, No apparent distress HEENT: Atraumatic, PERRLA, EOMI, Normocephalic Oral: Moist Mucosa, No Gingival or Mucosal Lesions/ Ulcerations Neck: Supple, No JVD, Negative Carotid Bruits, Trachea Midline, Thyroid Normal Size and Texture Lungs: Clear to auscultation, Normal air movement, No rhonchi, No wheeze, No rales, Diminished Cardiovascular: Regular rate, Regular Rhythm, Normal S1, Normal S2, PMI Normal Abdomen: Bowel Sounds Present, Soft, Non-Distended, No Hepato-splenomegaly, Tender Extremities: No clubbing, No cyanosis, No edema Skin: No rashes, No breakdown Lymphatic: No Cervical, Supraclavicular, or Inguinal Adenopathy Neurological: Cranial nerves II-XII grossly intact, Motor Exam 5/5 strength throughout Psych/Mental Status: Normal Affect, Appropriate Microbiology Past 72 Hours 07/31/19 19:40 Blood Culture (Wb) - Anticubital Left Blood Culture - Preliminary No growth in 48 hours. 07/31/19 19:48 Blood Culture (Wb) - Anticubital Right Blood Culture - Preliminary No growth in 48 hours. Laboratory Results 08/04/19 06:00: WBC 6.0, RBC 3.94 L, Hgb 12.1, Hct 37.0, MCV 93.9, MCH 30.7, MCHC 32.7, RDW Std Deviation 51.8 H, RDW Coeff of Samreen 15.0 H, Plt Count 138 L, MPV 10.3 08/04/19 06:00: Sodium 138, Potassium 4.2, Chloride 113 H, Carbon Dioxide 18.0 L , Anion Gap 7, BUN 6 L, Creatinine 0.58, Estim Creat Clear Calc 33.92, Est GFR (MDRD) Af Amer 128, Est GFR (MDRD) Non-Af 106, BUN/Creatinine Ratio 10.3, Glucose 91, Calcium 8.1 L Current Medications Acetaminophen (Tylenol) 650 mg PO Q6H PRN PRN PRN Reason: Pain Score 1-3/Temp > 100.7 F Acetaminophen (Tylenol) 650 mg RECTAL Q6H PRN PRN PRN Reason: FEVER Last Admin: 08/01/19 16:24 Dose: 650 mg Documented by: Albuterol Sulfate (Ventolin Aerosols) 2.5 mg INHALATION Q2H PRN PRN PRN Reason: Shortness of Breath/Wheezing Brimonidine Tartrate (Alphagan P 0.15%) 1 drop EACH EYE BID [facility] Last Admin: 08/04/19 09:11 Dose: 1 drop Documented by: Budesonide (Budesonide Ec) 3 mg PO DAILY [facility] Last Admin: 08/04/19 09:11 Dose: 3 mg Documented by: Calamine/Phenol (Calmoseptine Ointment) 1 applic TOPICAL 4X/DAY [facility]; Protocol Last Admin: 08/04/19 12:19 Dose: Not Given Documented by: [facility] Last Admin: 08/04/19 09:09 Dose: 500 mg Documented by: Cefuroxime Axetil (Ceftin) 500 mg PO Q12 [facility] Last Admin: 08/04/19 12:03 Dose: 500 mg Documented by: Diphenhydramine HCl (Benadryl) 25 mg PO Q6H PRN PRN PRN Reason: rash/itching. Enoxaparin Sodium (Lovenox) 40 mg SC DAILY [facility] Last Admin: 08/04/19 09:12 Dose: Not Given Documented by: Famotidine (Pepcid) 20 mg PO BID [facility] Last Admin: 08/04/19 09:10 Dose: 20 mg Documented by: Glucagon () 1 mg IM .X1 PRN PRN Reason: Hypoglycemia Guaifenesin (Robitussin) 20 ml PO Q4H PRN PRN PRN Reason: COUGH Hydralazine HCl (Apresoline Iv) 10 mg IV Q4H PRN PRN PRN Reason: SBP > 160 Hydrocortisone (Cortef) 10 mg PO DAILY@0800 [facility] Last Admin: 08/04/19 09:10 Dose: 10 mg Documented by: Hydroxychloroquine Sulfate (Plaquenil) [facility] Last Admin: 08/04/19 09:10 Dose: 200 mg Documented by: Dextrose (Dextrose 10%-Water) 250 mls @ 999 mls/hr IV .Q16M PRN; Protocol PRN Reason: HYPOGLYCEMIA Potassium Chloride 40 meq/ (Sodium Chloride) 1,020 mls @ 125 mls/hr IV .Q8H10M [facility] Last Admin: 08/04/19 05:37 Dose: 125 mls/hr Documented by: Lactobacillus Acidophilus (Acidophilus) 1 tablet PO 4X/DAY [facility] Last Admin: 08/04/19 13:09 Dose: 1 tablet Documented by: Latanoprost (Xalatan Opthalmic) 1 drop EACH EYE QHS [facility] Last Admin: 08/03/19 21:32 Dose: 1 drop Documented by: Levothyroxine Sodium (Synthroid) 75 mcg PO DAILY@0600 [facility] Last Admin: 08/04/19 05:37 Dose: 75 mcg Documented by: Melatonin (Melatonin) 3 mg PO QHS PRN PRN PRN Reason: INSOMNIA Metoprolol Succinate (Toprol Xl (Beta Rosalind)) 50 mg PO BID [facility] Last Admin: 08/04/19 09:11 Dose: 50 mg Documented by: Metronidazole (Flagyl) 500 mg PO TIDCM [facility] Last Admin: 08/04/19 13:10 Dose: 500 mg Documented by: Morphine Sulfate () 2 mg IV Q3H PRN PRN PRN Reason: Pain Score 6-10/10 Last Admin: 08/02/19 11:51 Dose: 2 mg Documented by: Nutritional Formula (Lactose Free) (Ensure Clear) 120 ml PO 4X/DAY [facility] Last Admin: 08/04/19 12:19 Dose: Not Given Documented by: Nystatin (Nystatin) 500,000 unit PO 4X/DAY [facility] Last Admin: 08/04/19 13:10 Dose: 500,000 unit Documented by: Oxycodone HCl (Oxyir) 10 mg PO Q4H PRN PRN PRN Reason: Pain Score 4-5/10 Potassium Chloride (K-Dur) 10 meq PO DAILY [facility] Last Admin: 08/04/19 09:10 Dose: 10 meq Documented by: Prochlorperazine Edisylate (Compazine Iv) 5 mg IV Q4H PRN PRN PRN Reason: Breakthrough nausea/vomiting Last Admin: 08/03/19 17:20 Dose: 5 mg Documented by: Promethazine HCl (Phenergan) 12.5 mg IM Q6H PRN PRN PRN Reason: NAUSEA/VOMITING Sodium Chloride () 10 - 40 ml IV UD PRN PRN Reason: SALINE FLUSH Last Admin: 08/03/19 17:21 Dose: 10 ml Documented by: Throat Lozenges (Cepacol Sore Throat Lozenge) 1 lozenge MUCOUS MEM Q2H PRN PRN PRN Reason: Sore throat or cough Timolol Maleate (Timoptic) 1 drop EACH EYE DAILY [facility] Last Admin: 08/04/19 12:06 Dose: 1 drop Documented by: Medical Necessity - Tobacco Use Smoking Status: Never smoker Tobacco Use: Non-smoker Assessment/Plan All Active Problems (Last Updated 08/04/19 @ 13:57 by Henna Barbosa MD) Sepsis (Acute) Rectosigmoid diverticulitis (Acute) This is a 79 years old female patient presented to the emergency room because of abdominal pain and she was found to have acute diverticulitis of the rectosigmoid colon with sepsis and today, her daughter mentioned that she has been acting unusual, having hallucination and she has been intermittently confused. #1 acute diverticulitis of the rectosigmoid colon/sepsis: She is on IV Invanz. Her vital signs are stable, afebrile, leukocytosis resolved. She has been tolerating diet. Still having abdominal tenderness. She was started on oral Ceftin and Flagyl in preparation for discharge. She states that she developed mild nausea with Flagyl. Plan to continue Ceftin and Flagyl, anticipate discharge home tomorrow. #2 reported altered mental status: This is reported by patient's daughter, hallucination and confusion. The patient thinks that she was dreaming. She denied any focal symptoms. She has been having drooping of her right eyelid for which she has been seeing ophthalmology as outpatient for probable myasthenia gravis. I explained to the patient that her symptoms could be due to delirium with possible baseline mild dementia. She is not convinced. Patient was in the hospital 5 days ago for drooping of the right eyelid, CT scan brain done and was unremarkable. She was referred to ophthalmology as outpatient. Plan: MRI brain without contrast. #3 oral candidiasis: She is on nystatin oral suspension 4 times a day. #4 adrenal insufficiency: Stable, continue Cortef. #5 autoimmune hepatitis: Stable, continue budesonide. #6 hypothyroidism: Continue levothyroxine. #7 hypertension: Blood pressure stable, continue current medications. #8 Lupus: Stable, continue Plaquenil and steroids. #9 DVT prophylaxis: Subcu Lovenox. This note was generated with [employer] software. It may contain incorrect words, spelling, and punctuation that were not noted in checking the note before signing. Code Visit Inpatient E&M: 73637 Subs Hosp L2
[2019-08-04] MEDS: 0.9% Normal Saline 1,000 ML 75 ML IV (16:17)
[2019-08-04] MEDS: 0.9% Saline Lock 10 ML Syringe IV (16:22)
[2019-08-04] MEDS: Menthol/Lanolin/Calamine/Znox 113 GM Tube 1 APPLIC TOPICAL ×2 (18:57→21:18)
[2019-08-04] MEDS: Latanoprost 0.005% 1 Bottle 1 DRP EACH EYE (21:15)
[2019-08-04] MEDS: Ensure Clear 120 ML Liquid PO (21:16)
[2019-08-05] VITALS (7 sets, daily range): BP systolic 149–154; BP diastolic 63–71; PULSE 72–74; RESP 17–18; TEMP 36.6–36.9; O2SAT 91–99
[2019-08-05] MEDS: Levothyroxine 75 MCG Tablet PO (05:53)
[2019-08-05] MEDS: CEFUROXIME AXETIL 250 MG TABLET 500 MG PO (08:43)
[2019-08-05] MEDS: Timolol 0.5% 5ML OPTH.BTL 1 DRP EACH EYE (09:48)
[2019-08-05] MEDS: BRIMONIDINE 0.15% 5 ML Bottle 1 DRP EACH EYE (09:48)
[2019-08-05] MEDS: metroNIDAZOLE 500 MG Tablet PO ×2 (09:50→13:34)
[2019-08-05] MEDS: Metoprolol(XL)Succ 50 MG Tablet PO (09:50)
[2019-08-05] MEDS: Budesonide 3 MG CAPSULE.EC PO (09:50)
[2019-08-05] MEDS: NYSTATIN 500,000 UNIT/5 ML UDC 500000 UNIT PO ×2 (09:51→13:35)
[2019-08-05] MEDS: Hydrocortisone 10 MG Tablet PO (09:52)
[2019-08-05] MEDS: Hydroxychloroquine 200 MG Tablet PO (09:52)
[2019-08-05] MEDS: Menthol/Lanolin/Calamine/Znox 113 GM Tube 1 APPLIC TOPICAL ×2 (10:11→13:36)
--- NOTE | 2019-08-05 11:46 | NURSING ---
went to take patient vitals, patient was sleeping, daughter refused to have patient woke up for vitals check primary nurse aware.
--- NOTE | 2019-08-05 12:06 | NURSING ---
Reviewed students charting.
--- NOTE | 2019-08-05 12:26 | PCM.DC.SUM ---
Discharge Date and Diagnosis Date of Admission: 07/31/19 Date of Discharge: 08/05/19 - Primary Discharge Diagnosis Active and Suspected Problems (Last Updated 08/04/19 @ 13:57 by Henna Barbosa MD) #1 acute diverticulitis of the rectosigmoid colon. #2 sepsis. #3 intermittent confusion/hallucination, attributed to probable hospital delirium. MRI brain was negative, acute stroke ruled out. #4 oral candidiasis, due to steroids. - Secondary Discharge Diagnosis Chronic Problems (Last Updated 08/04/19 @ 13:57 by Henna Barbosa MD) Adrenal insufficiency (Chronic) Hyperlipidemia (Chronic) Lupus (Chronic) Glaucoma (Chronic) HTN (hypertension) (Chronic) Hypothyroidism (Chronic) Monoclonal gammopathies (Chronic) Lupus (Chronic) Hypertension (Chronic) Autoimmune hepatitis (Chronic) Hospital Course and Treatment Imaging Results: Clinical Impression(s) from Imaging Studies Abdomen/Pelvis CT 07/31/19 18:34 IMPRESSION: 1. Rectosigmoid diverticulitis without perforation. 2. No other major change in findings when compared to the prior study. Electronically Signed: Lewis Tian DO at 20:14 EST Tel [phone], Service support , Brain MRI 08/04/19 13:51 IMPRESSION: Involutional changes of the brain, as described above. Electronically Signed: Alexis Caban MD at 15:31 EST Tel , Service support , Operations: None Procedures: None Summary of Care Provided: Patient seen and examined on the day of discharge and appeared to be stable to be discharged home. She has been tolerating regular diet. Abdominal pain improved, still having some tenderness. Denied nausea or vomiting. Denied fever or chills. On the day of discharge, patient was alert and oriented x3. Patient's daughter was concerned about her intermittent confusion and sedation. I explained to the patient's daughter multiple times that this is probably due to medication side effects in addition to hospital delirium. Patient had no focal deficit. MRI brain showed no acute stroke. The patient is a 79 year old F patient presented to the emergency because of abdominal pain and she was found to have findings consistent with acute diverticulitis of the rectosigmoid colon with sepsis. She was admitted to the hospital, started on IV ciprofloxacin and Flagyl, n.p.o., as well as IV fluids and IV pain medications. Patient developed a skin rash and both IV Flagyl and ciprofloxacin discontinued and she was started on IV Invanz. With IV antibiotic therapy, leukocytosis resolved. Patient remained afebrile. Her abdominal pain improved and she remained afebrile for more than 48 hours. Patient was started on clear liquids which was advanced to a regular diet and she did very well. Blood culture showed no growth in 5 days. 2 days before discharge, her CBC and BMP was unremarkable. Liver transaminases and lipase were normal. Lactic acid was normal as well. Patient did very well on regular diet. She was switched to oral Ceftin and Flagyl. Initially, she developed some nausea with Flagyl but then she was able to take Flagyl without any problems. Patient's daughter mentioned that her mother has been having issues with hallucination and sometimes confusion at night. I tried to explain to the patient's daughter that her symptoms could be due to medication side effects and probable delirium. The daughter mentioned that that is unusual for her and she thinks that may be something else going on. MRI brain done and showed no acute findings, no infarct or hemorrhage. I reassured the patient and her daughter that her symptoms are likely due to delirium and probably medication side effects in addition to possible mild baseline dementia which cannot be excluded. Patient discharged home in a stable medical condition, discharged on Ceftin and Flagyl for 10 days of treatment, discharged on nystatin solution for oral candidiasis, continued on her previous home medications without any changes, recommended follow-up with PCP in 1 week. - Physical Exam Vitals/I&O's: Vital Signs Temp Pulse Resp BP Pulse Ox 97.8 F 72 17 149/71 H 91 08/05/19 08:19 08/05/19 09:50 08/05/19 08:19 08/05/19 08:19 08/05/19 11:19 Oxygen Flow Rate (L/min) 1 Oxygen Delivery Method Room Air Weight: 103 lb 13.404 oz Body Mass Index (BMI) 21.7 Intake and Output for Last 24 Hours 08/03/19 08/04/19 08/05/19 23:59 23:59 23:59 Intake Total 3820 / 4320 2730.42 / 3230.42 1740 / 1740 Output Total 3600 / 4250 2200 / 2200 Balance 220 / 70 530.42 / 1030.42 1740 / 1740 General: Alert, Oriented x3, Cooperative, No apparent distress HEENT: Atraumatic, PERRLA, EOMI, Normocephalic Oral: Moist Mucosa, No Gingival or Mucosal Lesions/ Ulcerations Neck: Supple, No JVD, Negative Carotid Bruits, Trachea Midline, Thyroid Normal Size and Texture Lungs: Clear to auscultation, Normal air movement, No rhonchi, No wheeze, No rales, Diminished Cardiovascular: Regular rate, Regular Rhythm, Normal S1, Normal S2, PMI Normal Abdomen: Bowel Sounds Present, Soft, Non-Distended, No Hepato-splenomegaly, Tender - No guarding or rigidity. Extremities: No clubbing, No cyanosis, No edema Skin: No rashes, No breakdown Lymphatic: No Cervical, Supraclavicular, or Inguinal Adenopathy Neurological: Cranial nerves II-XII grossly intact, Neuro grossly intact Psych/Mental Status: Normal Affect, Appropriate Microbiology Past 72 Hours 07/31/19 19:40 Blood Culture (Wb) - Anticubital Left Blood Culture - Preliminary No growth in 48 hours. 07/31/19 19:48 Blood Culture (Wb) - Anticubital Right Blood Culture - Preliminary No growth in 48 hours. Current Medications Acetaminophen (Tylenol) 650 mg PO Q6H PRN PRN PRN Reason: Pain Score 1-3/Temp > 100.7 F Acetaminophen (Tylenol) 650 mg RECTAL Q6H PRN PRN PRN Reason: FEVER Last Admin: 08/01/19 16:24 Dose: 650 mg Documented by: Albuterol Sulfate (Ventolin Aerosols) 2.5 mg INHALATION Q2H PRN PRN PRN Reason: Shortness of Breath/Wheezing Brimonidine Tartrate (Alphagan P 0.15%) 1 drop EACH EYE BID [facility] Last Admin: 08/05/19 09:48 Dose: 1 drop Documented by: Budesonide (Budesonide Ec) 3 mg PO DAILY [facility] Last Admin: 08/05/19 09:50 Dose: 3 mg Documented by: Calamine/Phenol (Calmoseptine Ointment) 1 applic TOPICAL 4X/DAY [facility]; Protocol Last Admin: 08/05/19 10:11 Dose: 1 applicatio Documented by: [facility] Last Admin: 08/05/19 10:11 Dose: Not Given Documented by: Cefuroxime Axetil (Ceftin) 500 mg PO Q12 [facility] Last Admin: 08/05/19 08:43 Dose: 500 mg Documented by: Diphenhydramine HCl (Benadryl) 25 mg PO Q6H PRN PRN PRN Reason: rash/itching. Enoxaparin Sodium (Lovenox) 40 mg SC DAILY [facility] Last Admin: 08/05/19 09:51 Dose: Not Given Documented by: Famotidine (Pepcid) 20 mg PO BID [facility] Last Admin: 08/05/19 09:49 Dose: Not Given Documented by: Glucagon () 1 mg IM .X1 PRN PRN Reason: Hypoglycemia Guaifenesin (Robitussin) 20 ml PO Q4H PRN PRN PRN Reason: COUGH Hydralazine HCl (Apresoline Iv) 10 mg IV Q4H PRN PRN PRN Reason: SBP > 160 Hydrocortisone (Cortef) 10 mg PO DAILY@0800 [facility] Last Admin: 08/05/19 09:52 Dose: 10 mg Documented by: Hydroxychloroquine S[facility]ate ([facility]aquenil) [facility] Last Admin: 08/05/19 09:52 Dose: 200 mg Documented by: Dextrose (Dextrose 10%-Water) 250 mls @ 999 mls/hr IV .Q16M PRN; Protocol PRN Reason: HYPOGLYCEMIA Lactobacillus Acidophilus (Acidophilus) 1 tablet PO 4X/DAY [facility] Last Admin: 08/05/19 09:51 Dose: 1 tablet Documented by: Latanoprost (Xalatan Opthalmic) 1 drop EACH EYE QHS [facility] Last Admin: 08/04/19 21:15 Dose: 1 drop Documented by: Levothyroxine Sodium (Synthroid) 75 mcg PO DAILY@0600 [facility] Last Admin: 08/05/19 05:53 Dose: 75 mcg Documented by: Melatonin (Melatonin) 3 mg PO QHS PRN PRN PRN Reason: INSOMNIA Metoprolol Succinate (Toprol Xl (Beta Rosalind)) 50 mg PO BID [facility] Last Admin: 08/05/19 09:50 Dose: 50 mg Documented by: Metronidazole (Flagyl) 500 mg PO TIDCM [facility] Last Admin: 08/05/19 09:50 Dose: 500 mg Documented by: Morphine Sulfate () 2 mg IV Q3H PRN PRN PRN Reason: Pain Score 6-10/10 Last Admin: 08/02/19 11:51 Dose: 2 mg Documented by: Nutritional Formula (Lactose Free) (Ensure Clear) 120 ml PO 4X/DAY [facility] Last Admin: 08/05/19 09:48 Dose: Not Given Documented by: Nystatin (Nystatin) 500,000 unit PO 4X/DAY [facility] Last Admin: 08/05/19 09:51 Dose: 500,000 unit Documented by: Oxycodone HCl (Oxyir) 10 mg PO Q4H PRN PRN PRN Reason: Pain Score 4-5/10 Potassium Chloride (K-Dur) 10 meq PO DAILY [facility] Last Admin: 08/05/19 09:55 Dose: Not Given Documented by: Prochlorperazine Edisylate (Compazine Iv) 5 mg IV Q4H PRN PRN PRN Reason: Breakthrough nausea/vomiting Last Admin: 08/03/19 17:20 Dose: 5 mg Documented by: Promethazine HCl (Phenergan) 12.5 mg IM Q6H PRN PRN PRN Reason: NAUSEA/VOMITING Sodium Chloride () 10 - 40 ml IV UD PRN PRN Reason: SALINE FLUSH Last Admin: 08/04/19 16:22 Dose: 10 ml Documented by: Throat Lozenges (Cepacol Sore Throat Lozenge) 1 lozenge MUCOUS MEM Q2H PRN PRN PRN Reason: Sore throat or cough Timolol Maleate (Timoptic) 1 drop EACH EYE DAILY [facility] Last Admin: 08/05/19 09:48 Dose: 1 drop Documented by: Discharge Activity: Return to Normal Activity Weight Bearing Status: Weight bearing as tolerated Call your doctor if you observe: Fever of 101 or Higher, Shortness of breath, Dizziness, Fainting spells, Chest pain, Increased palpitations (irregular heartbeat), Uncontrolled pain Home Medications: Medications to take at Discharge Bimatoprost [Lumigan Opthalmic] 1 drp EACH EYE QHS 06/23/17 Brimonidine 0.15% [Alphagan P 0.15%] 1 drp EACH EYE BID 06/23/17 Budesonide [Budesonide EC] 3 mg PO DAILY 06/23/17 Hydroxychloroquine [Plaquenil] 200 mg PO DAILYCM 06/23/17 Levothyroxine Sodium [Synthroid] 75 mcg PO DAILY 06/23/17 Timolol 0.5% [Timoptic] 1 drp EACH EYE DAILY 06/23/17 Metoprolol Succinate [Toprol Xl] 50 mg PO BID 06/04/19 Potassium Chloride 10 meq PO DAILY 06/04/19 Ensure Clear 120 ml PO 4X/DAY #120 liquid 06/08/19 Cholecalciferol (Vitamin D3) [Vitamin D3] 2,000 unit PO DAILY 07/30/19 Lactobacillus Acidophilus [Acidophilus] 2 tab PO DAILY 07/30/19 Hydrocortisone 10 mg PO DAILY PRN PRN 07/31/19 Calcium Citrate 200 mg PO BID 08/01/19 Cefuroxime Axetil [Ceftin] 500 mg PO Q12 #40 tab 08/04/19 Nystatin 500,000 unit PO 4X/DAY #30 udc 08/04/19 metroNIDAZOLE [Flagyl] 500 mg PO TIDCM #30 tab 08/04/19 Following Prescrptions Were Given to Patient: Cefuroxime Axetil [Ceftin] 500 mg PO Q12 #40 tab Transmission Status: Received by [id number] metroNIDAZOLE [Flagyl] 500 mg PO TIDCM #30 tab Transmission Status: Received by [id number] Nystatin 500,000 unit PO 4X/DAY #30 udc Transmission Status: Received by [id number] Primary Care Physician: Ashvin Cardenas MD [Primary Care Provider] - Please follow up with your Primary Care Physician in: 1 WEEK. Disposition: Home Minutes spent on discharge:: 32 Patient Condition:: Stable Medical Necessity - Tobacco Use Smoking Status: Never smoker Tobacco Use: Non-smoker Meaningful Use Info Meaningful Use Diagnoses (Choose all that apply): None applicable Code Visit Inpatient E&M: 45988 Disch Hosp
--- NOTE | 2019-08-06 16:13 | CASEMGMT ---
TAM CELESTE Discharge Follow-Up Phone Call. [place]amanda: 14 Strata: 4 Discharge Date: 08/06/19 Adm Dx: Sepsis, Diverticulitis. Call to pt to inquire about how she has been doing since being discharged from the hospital. Pt's daughter, Barbara, answered and spoke with this TAM CELESTE. She states her mother Is doing good, just pretty tired. 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 She did inquire if the Ceftin and Flagyl could be taken together. She is aware Ceftin is BID and Flagyl is TID and she states is aware. Advised Barbara to contact pharmacist @ [facility] to inquire about taking these together or any other contra-indications/instructions. She voices understanding and states she has the number to [facility] pharmacy. She states she has not made the appt with PCP/Dr Cardenas yet, but is aware this needs done. She denies having any other questions or concerns. TAM CELESTE thanked pt for choosing [facility]. Khanh WATKINS RN, CM
== END 2019-08-05 15:37 | disposition home or self-care (01) | DRG 872 ==
LOC: ED 19:09 → MS3 21:05
PROVIDERS: Internal Medicine; Admitting Provider Family Medicine; Emergency Provider Emergency Medicine; PCP Family Medicine; Visit Provider Hospitalist
DX: A41.9 Sepsis, unspecified organism (principal); K57.32 Diverticulitis of large intestine without perforation or abscess without bleeding; E27.40 Unspecified adrenocortical insufficiency; B37.0 Candidal stomatitis; I10 Essential (primary) hypertension; E03.9 Hypothyroidism, unspecified; D47.2 Monoclonal gammopathy; K75.4 Autoimmune hepatitis; M32.9 Systemic lupus erythematosus, unspecified; E87.6 Hypokalemia; T38.0X5A Adverse effect of glucocorticoids and synthetic analogues, initial encounter; R41.0 Disorientation, unspecified; R44.1 Visual hallucinations; E78.5 Hyperlipidemia, unspecified; R21 Rash and other nonspecific skin eruption; H40.9 Unspecified glaucoma
CPT/HCPCS: 36415; 70450; 70551; 74177; 80048; 80053; 81001; 83605; 83690; 83735; 85025; 85027; 85652; 86140; 87040; 97802; 97803; 99251; 99282; 99285; J7030; Q9967; A4216; G0463; J0744; J2405

== ENCOUNTER → 2020-03-24 17:07 | Outpatient (CLI) | payer MEDICARE, SELFPAY ==
[2019-07-31 22:25] VITALS: BMI 21.7
== END ==
PROVIDERS: PCP Family Medicine; Referring Provider Family Medicine; Visit Provider Family Medicine
DX: R82.81 Pyuria (principal)
CPT/HCPCS: 87086; 87088

== ENCOUNTER → 2020-04-22 12:25 | Outpatient (CLI) | payer MEDICARE, SELFPAY ==
[2019-07-31 22:25] VITALS: BMI 21.7
[2020-04-22 15:12] LABS: Absolute Lymphocyte Count 1.78 X10^3/uL (0.83-4.51); Absolute Neutrophil Count 7.2 X10^3/uL (2.0-7.7); Basophil# 0.04 X10^3/uL; Basophil% 0.4 % (0-1); Eosinophil# 0.06 X10^3/uL; Eosinophils% 0.6 % (0-5); Hematocrit 46.3 % (37-47); Hemoglobin 14.7 g/dL (12.0-15.0); Lymphocyte # 1.78 X10^3/ul (4.0); Lymphocyte % 17.4 % (19-41); Mean Corp Hgb Conc 31.7 g/dL (32-36); Mean Corpuscular Hgb 30.8 pg (27.0-32.0); Mean Corpuscular Volume 97.1 fL (81-99); Mean Platelet Vol. 10.8 fl (6.2-12.0); Monocyte# 1.09 X10^3/uL; Monocyte% 10.7 % (0-10); NRBC Flagged by Analyzer 0 % (0-5); Neutrophil # 7.17 X10^3/uL (2.7-7.7); Platelet Count 182 K/mm3 (150-450); RBC Distribution Width CV 15.2 % (11.6-14.6); RBC Distribution Width SD 53.9 fl (35.1-43.9); Red Blood Count 4.77 M/mm3 (4.2-5.4); White Blood Count 10.2 K/mm3 (4.4-11.0)
[2020-04-22 15:30] LABS: ALB/GLOB Ratio 0.7 RATIO (0.9-2.4); AST(SGOT) 35 U/L (15-37); Alanine Aminotransfer ALT/SGPT 43 U/L (13-56); Albumin, Serum 3.5 g/dL (3.2-5.0); Alkaline Phosphatase 71 U/L (45-117); Anion Gap 7 (5-15); BUN 15 mg/dL (7-18); BUN/Creat Ratio 19.4 RATIO (10-20); Chloride 100 mmol/L (98-107); Creatinine, Serum 0.77 mg/dL (0.55-1.02); EST Glomerular Filtration Rate 76 mL/min (>60); Est Glom Filt Rate - Afr Amer 92 mL/min (>60); Globulin 4.7 g/dL (2.2-4.2); Glucose 89 mg/dL (74-106); LDH 212 U/L (84-246); Potassium 3.4 mmol/L (3.5-5.1); Protein, Total 8.2 g/dL (6.4-8.2); Sodium Level 134 mmol/L (136-145)
[2020-04-22 15:31] LABS: Vitamin B12 255 pg/mL (211-911)
[2020-04-22 18:30] LABS: Erythrocyte Sedimentation Rate 21 mm/hr (0-30)
[2020-04-22 19:08] LABS: CRP < 2.90 mg/L (0.0-3.0); Ferritin 119 ng/mL (8-252); T4 Free Direct 1.54 ng/dL (0.76-1.46)
[2020-04-22 20:33] LABS: Xtra Tube EP Lab EXTRA TUBE
[2020-04-26 16:08] LABS: Albumin 3.5 g/dL (2.9-4.4); Alpha-1-Globulins 0.2 g/dL (0.0-0.4); Free Kappa Light Chains 27.6 mg/L (3.3-19.4); Free Lambda Light Chains 20.6 mg/L (5.7-26.3); Gamma Globulin 1.8 g/dL (0.4-1.8); Immunoglobulin A 225 mg/dL (64-422); Immunoglobulin G 1957 mg/dL (586-1602); Immunoglobulin M 34 mg/dL (26-217); PROEL- TOTAL PROTEIN 7.4 g/dL (6.0-8.5)
== END ==
PROVIDERS: PCP Family Medicine; Referring Provider Internal Medicine Medical Oncology; Visit Provider Internal Medicine Medical Oncology
DX: D47.2 Monoclonal gammopathy (principal); R53.83 Other fatigue; K90.0 Celiac disease
CPT/HCPCS: 36415; 80053; 82607; 82728; 82746; 82784; 83615; 83883; 84165; 84439; 84443; 85025; 85652; 86140; 86334

== ENCOUNTER → 2020-05-19 | Outpatient (CLI) | payer MEDICARE, SELFPAY ==
[2019-07-31 22:25] VITALS: BMI 21.7
== END | disposition home or self-care (01) ==
LOC: MFPLAB 13:50 → LABSPEC 13:52
PROVIDERS: PCP Family Medicine; Referring Provider Family Medicine; Visit Provider Family Medicine
DX: Z20.828 Contact with and (suspected) exposure to other viral communicable diseases (principal)
CPT/HCPCS: 87635; U0003

== ENCOUNTER 2020-10-22 15:46 | Emergency (ER) | payer MEDICARE, SELFPAY ==
[2019-07-31 22:25] VITALS: BMI 21.7
[2020-10-22 15:47] VITALS: BP 150/53; PULSE 93; RESP 20; TEMP 37.2; O2SAT 93; BMI 24.5
[2020-10-22 16:19] VITALS: BP 135/50; PULSE 94; RESP 17; O2SAT 96
[2020-10-22] MEDS: Ondansetron 4 MG/2 ML Vial IV (16:28)
[2020-10-22 16:53] LABS: Absolute Lymphocyte Count 2.37 X10^3/uL (0.83-4.51); Basophil# 0.04 X10^3/uL; Basophil% 0.4 % (0-1); Eosinophil# 0.07 X10^3/uL; Eosinophils% 0.7 % (0-5); Hematocrit 41.8 % (37-47); Hemoglobin 13.8 g/dL (12.0-15.0); Lymphocyte # 2.37 X10^3/ul (4.0); Mean Corpuscular Hgb 30.7 pg (27.0-32.0); Mean Corpuscular Volume 93.1 fL (81-99); Mean Platelet Vol. 10.4 fl (6.2-12.0); Monocyte# 0.95 X10^3/uL; NRBC Flagged by Analyzer 0 % (0-5); Neutrophil # 5.99 X10^3/uL (2.7-7.7); Neutrophil % 63.2 % (47-70); Platelet Count 171 K/mm3 (150-450); RBC Distribution Width CV 14.6 % (11.6-14.6); RBC Distribution Width SD 50.1 fl (35.1-43.9); Red Blood Count 4.49 M/mm3 (4.2-5.4); White Blood Count 9.5 K/mm3 (4.4-11.0)
[2020-10-22 17:00] VITALS: BP 126/45; PULSE 93; RESP 18; TEMP 38.9; O2SAT 98
[2020-10-22 17:31] LABS: Mucous, Urine 0 SEEN /hpf (<or=2+); Red Blood Cells-Urine 0 SEEN /hpf (0-5)
[2020-10-22 17:32] LABS: Color, Urine Straw (Yellow); Glucose, Dipstick Normal (Normal); Ketone-Dipstick 5 mg/dl (Negative); Leukocyte Esterase-Dipstick 25 /ul (Negative); Nitrite-Dipstick Negative (Negative); Occult Blood-Urine 10 /ul (Negative); Protein-Dipstick Negative (Negative); Urine Bilirubin Dipstick Negative (Negative); Urine Clarity Clear (Clear); Urine Urobilinogen Normal (Normal)
[2020-10-22 17:33] LABS: ALB/GLOB Ratio 0.6 RATIO (0.9-2.4); AST(SGOT) 41 U/L (15-37); Alanine Aminotransfer ALT/SGPT 32 U/L (13-56); Albumin, Serum 2.8 g/dL (3.2-5.0); Alkaline Phosphatase 56 U/L (45-117); Anion Gap 7 (5-15); BUN 7 mg/dL (7-18); BUN/Creat Ratio 9.1 RATIO (10-20); Calcium,Total 8.4 mg/dL (8.5-10.1); Chloride 97 mmol/L (98-107); Creatinine, Serum 0.77 mg/dL (0.55-1.02); EST Glomerular Filtration Rate 77 mL/min (>60); Est Glom Filt Rate - Afr Amer 93 mL/min (>60); Estimated Creatinine Clearance 37.83 ml/min; Globulin 4.9 g/dL (2.2-4.2); Glucose 96 mg/dL (74-106); Lipase 46 U/L (73-393); Protein, Total 7.7 g/dL (6.4-8.2); Sodium Level 129 mmol/L (136-145)
[2020-10-22 17:47] LABS: Bacteria 1+ /hpf (None Seen); Squamous Epithelial Cells - UA 0-5 SEEN /hpf (5-10); White Blood Cells 0-5 SEEN /hpf (0-5)
--- NOTE | 2020-10-22 19:14 | ED.VISSUMM ---
- ER Visit Summary Date of Service: 10/22/20 Chief Complaint: Weakness History of Present Illness: The patient is a 80 F who presents with weakness for 4 days. Associate with nausea, vomiting, diarrhea, and chills. She had vomiting on the second day, but it seems to have subsided and she still has nausea. She has chills. Has had similar episodes like this in the past. History of autoimmune hepatitis, lupus, adrenal insufficiency, and others. Physical Examination: Afebrile and vital signs unremarkable. Nontoxic and in no acute distress. Heart regular. Lungs clear. Abdomen soft and nontender. Skin appears normal. Test Results: CBC is normal. Sodium 129, typically ranges from 129-141. Chloride 97. Total bilirubin 1.6, AST 41, lipase normal, urinalysis unremarkable. Shows some likely contamination. No indication for imaging or other diagnostic testing. Emergency Department Course and Treatment: Patient was treated with IV fluids and Zofran. She is not having pain. Her abdominal exam is unremarkable. Her lab work was fairly reassuring. Sodium was 129. It has been low in the past. She was treated with IV fluids. I discussed this with the patient and her family. She will receive additional fluids. Patient would like to try to go home. She feels comfortable taking her medications. Prescription for Zofran as needed. Patient was advised that she may worsen. If she develops pain or worsening symptoms or if she is unable to take her medications, she should return to the ER. Treatment Plan: As above Disposition: Discharge Impression: Nausea and diarrhea This note was generated with [employer] dictation software. It may contain incorrect words, spelling, and punctuation that were not noted in review of the chart prior to signing ED Disposition - Plan for ED Patient: Referrals: Ashvin Cardenas MD [Primary Care Provider] -
--- NOTE | 2020-10-22 19:18 | ED.DEP ---
ED Disposition - Plan for ED Patient: Instructions: ED Vomiting (Adult) Prescriptions: Ondansetron [Zofran Odt] 4 mg PO Q8H PRN PRN #10 tablet PRN Reason: Nausea Prescription Printed Referrals: Ashvin Cardenas MD [Primary Care Provider] -
[2020-10-22 20:59] VITALS: BP 131/64; PULSE 100; RESP 22; TEMP 38.4; O2SAT 94
== END 2020-10-22 21:31 | disposition home or self-care (01) ==
LOC: ED 16:57
PROVIDERS: Emergency Provider Emergency Medicine; PCP Family Medicine
DX: R11.2 Nausea with vomiting, unspecified (principal); R19.7 Diarrhea, unspecified; Z20.822 Contact with and (suspected) exposure to COVID-19; R53.1 Weakness; E27.40 Unspecified adrenocortical insufficiency; M32.9 Systemic lupus erythematosus, unspecified; K75.4 Autoimmune hepatitis; R68.83 Chills (without fever); Z79.899 Other long term (current) drug therapy
CPT/HCPCS: 80053; 81001; 83690; 85025; 87040; 87426; 96361; 96374; 99285; J7040; P9612; A4216; J2405

== ENCOUNTER → 2020-11-01 | Outpatient (CLI) | payer MEDICARE, SELFPAY ==
[2020-10-22 15:47] VITALS: BMI 24.5
== END | disposition home or self-care (01) ==
PROVIDERS: PCP Family Medicine; Referring Provider Family Medicine; Visit Provider Family Medicine
DX: R11.2 Nausea with vomiting, unspecified (principal)
CPT/HCPCS: 87177; 87209; 87493

== ENCOUNTER → 2020-11-08 12:26 | Outpatient (CLI) | payer MEDICARE, SELFPAY ==
[2020-10-22 15:47] VITALS: BMI 24.5
[2020-11-08 15:17] LABS: Absolute Lymphocyte Count 1.87 X10^3/uL (0.83-4.51); Absolute Neutrophil Count 10.7 X10^3/uL (2.0-7.7); Basophil# 0.06 X10^3/uL; Basophil% 0.4 % (0-1); Eosinophil# 0.05 X10^3/uL; Eosinophils% 0.4 % (0-5); Hematocrit 40.6 % (37-47); Hemoglobin 13.2 g/dL (12.0-15.0); Lymphocyte # 1.87 X10^3/ul (0.83-4.51); Lymphocyte % 13.6 % (19-41); Mean Corp Hgb Conc 32.5 g/dL (32-36); Mean Corpuscular Hgb 30.8 pg (27.0-32.0); Mean Corpuscular Volume 94.6 fL (81-99); Mean Platelet Vol. 10.4 fl (6.2-12.0); Monocyte# 0.97 X10^3/uL; NRBC Flagged by Analyzer 0 % (0-5); Neutrophil % 77.7 % (47-70); Platelet Count 273 K/mm3 (150-450); RBC Distribution Width CV 14.5 % (11.6-14.6); Red Blood Count 4.29 M/mm3 (4.2-5.4); White Blood Count 13.8 K/mm3 (4.4-11.0)
[2020-11-08 15:34] LABS: ALB/GLOB Ratio 0.6 RATIO (0.9-2.4); AST(SGOT) 20 U/L (15-37); Alanine Aminotransfer ALT/SGPT 28 U/L (13-56); Alkaline Phosphatase 77 U/L (45-117); Anion Gap 7 (5-15); BUN 8 mg/dL (7-18); BUN/Creat Ratio 9.7 RATIO (10-20); Chloride 98 mmol/L (98-107); Creatinine, Serum 0.83 mg/dL (0.55-1.02); EST Glomerular Filtration Rate 70 mL/min (>60); Est Glom Filt Rate - Afr Amer 85 mL/min (>60); Globulin 5.1 g/dL (2.2-4.2); Glucose 94 mg/dL (74-106); Potassium 3.4 mmol/L (3.5-5.1); Protein, Total 8.1 g/dL (6.4-8.2); Sodium Level 132 mmol/L (136-145)
[2020-11-11 11:18] LABS: Lipase 85 U/L (73-393)
== END ==
PROVIDERS: PCP Family Medicine; Referring Provider Family Medicine; Visit Provider Family Medicine
DX: R53.83 Other fatigue (principal)
CPT/HCPCS: 36415; 80053; 83690; 85025; 86140

== ENCOUNTER → 2020-11-09 12:25 | Outpatient (CLI) | payer MEDICARE, SELFPAY ==
[2020-10-22 15:47] VITALS: BMI 24.5
[2020-11-09 13:30] LABS: 24HR. Urine Creatinine 0.59 g/24 HR (0.70-1.90)
== END ==
PROVIDERS: PCP Family Medicine; Referring Provider Family Medicine; Visit Provider Family Medicine
DX: E87.6 Hypokalemia (principal)
CPT/HCPCS: 81050; 82570

== ENCOUNTER → 2020-11-10 12:18 | Outpatient (CLI) | payer MEDICARE, SELFPAY ==
[2020-10-22 15:47] VITALS: BMI 24.5
--- NOTE | 2020-11-10 12:19 | CT_ITS ---
STUDY: CT ABDOMEN AND PELVIS WITHOUT CONTRAST REASON FOR EXAM: Female, 80 years old. LLQ pain with fever and nausea. Probable diverticulitis RADIATION DOSAGE (If Supplied By Facility): CTDIvol = ( 6.05 ) mGy, DLP = ( 271.98 ) mGycm TECHNIQUE: Transaxial images were obtained from the dome of the diaphragm to the symphysis pubis without oral contrast, and without intravenous contrast. Sagittal and coronal images were reconstructed. Individualized dose optimization techniques were used for this CT. COMPARISON: Comparison is made with prior study dated 07/31/2019. FINDINGS: The visualized lung bases are unremarkable. Coronary artery calcification. Normal liver. There are surgical clips in the gallbladder fossa consistent with a prior cholecystectomy. Normal spleen. There are pancreatic calcifications in the distribution of the ducts consistent with chronic pancreatitis. Normal bilateral adrenal glands. Normal right kidney. Normal left kidney. There is a small hiatal hernia. Normal small intestine. There are multiple colonic diverticula consistent with diverticulosis. The appendix is visualized and appears normal. There is diffuse atherosclerotic calcification of the abdominal aorta and its major visceral branches, without a demonstrated aneurysm. Normal inferior vena cava. Normal retroperitoneum. Normal urinary bladder. Enlarged fibroid uterus. Normal abdominal wall. There are mild degenerative changes of the visualized lumbar spine. CT/Abdomen/Pelvis without Cont IMPRESSION: Sigmoid diverticulosis. No radiographic evidence of diverticulitis. Calcifications seen throughout the pancreas suggestive of chronic pancreatitis. Enlarged fibroid uterus. Electronically Signed: Emeka England MD at 13:20 EDT , Service support ,
== END ==
PROVIDERS: PCP Family Medicine; Referring Provider Family Medicine; Visit Provider Family Medicine
DX: R10.32 Left lower quadrant pain (principal)
CPT/HCPCS: 74176

== ENCOUNTER 2020-11-15 12:18 | Inpatient (IN) | payer MEDICARE, SELFPAY ==
[2020-11-15] VITALS (11 sets, daily range): BP systolic 124–152; BP diastolic 47–65; PULSE 81–95; RESP 14–20; TEMP 36.9–37.1; O2SAT 97–99; BMI 22.6; BMI 21.1
--- NOTE | 2020-11-15 12:56 | EKG12_ITS ---
Test Reason : SYNCOPE Blood Pressure : / mmHG Vent. Rate : 082 BPM Atrial Rate : 082 BPM P-R Int : 138 ms QRS Dur : 086 ms QT Int : 380 ms P-R-T Axes : 026 008 -19 degrees QTc Int : 443 ms Normal sinus rhythm ST & T wave abnormality, consider inferolateral ischemia Abnormal ECG Confirmed by RASHAAD COELLO, ALIREZA ([id number]), editor newspaper KEYLA CASTELLANOS ([id number]) on 11/17/2020 8:55:29 AM Referred By: JOHNSON Confirmed By:ALIREZA NEIL MD
[2020-11-15 13:05] LABS: Basophil% 0.5 % (0-1); Eosinophils% 0.7 % (0-5); Hematocrit 42.8 % (37-47); Hemoglobin 14.1 g/dL (12.0-15.0); Lymphocyte % 16.6 % (19-41); Mean Corp Hgb Conc 32.9 g/dL (32-36); Mean Corpuscular Hgb 30.3 pg (27.0-32.0); Mean Platelet Vol. 9.7 fl (6.2-12.0); Monocyte% 9.8 % (0-10); Neutrophil % 71.2 % (47-70); Platelet Count 208 K/mm3 (150-450); RBC Distribution Width CV 14.6 % (11.6-14.6); RBC Distribution Width SD 48.9 fl (35.1-43.9); Red Blood Count 4.65 M/mm3 (4.2-5.4); White Blood Count 12.1 K/mm3 (4.4-11.0)
[2020-11-15 13:12] LABS: Absolute Neutrophil Count 8.6 X10^3/uL (2.0-7.7); Basophil# 0.06 X10^3/uL; Eosinophil# 0.08 X10^3/uL; Monocyte# 1.18 X10^3/uL; NRBC Flagged by Analyzer 0 % (0-5)
[2020-11-15 13:14] LABS: Anion Gap 12 (5-15); BUN 5 mg/dL (7-18); BUN/Creat Ratio 5.8 RATIO (10-20); Calcium,Total 8.8 mg/dL (8.5-10.1); Chloride 93 mmol/L (98-107); Creatinine, Serum 0.86 mg/dL (0.55-1.02); EST Glomerular Filtration Rate 68 mL/min (>60); Est Glom Filt Rate - Afr Amer 82 mL/min (>60); Estimated Creatinine Clearance 40.35 ml/min; Glucose 79 mg/dL (74-106); Potassium 3.3 mmol/L (3.5-5.1); Sodium Level 127 mmol/L (136-145)
[2020-11-15] MEDS: 0.9% Normal Saline 1,000 ML 150 ML IV (13:35)
[2020-11-15] MEDS: 0.9% Normal Saline 1,000 ML 1000 ML IV (13:35)
[2020-11-15 14:27] LABS: AST(SGOT) 57 U/L (15-37); Alanine Aminotransfer ALT/SGPT 38 U/L (13-56); Albumin, Serum 3.1 g/dL (3.2-5.0); Alkaline Phosphatase 60 U/L (45-117); Bilirubin, Direct 0.24 mg/dL (0.00-0.30); Globulin 4.1 g/dL (2.2-4.2); Lipase 54 U/L (73-393); Protein, Total 7.2 g/dL (6.4-8.2)
[2020-11-15 15:47] LABS: Bacteria 0 SEEN /hpf (None Seen); Mucous, Urine 0 SEEN /hpf (<or=2+); Red Blood Cells-Urine 0 SEEN /hpf (0-5)
--- NOTE | 2020-11-15 15:49 | EX.ED.DYSGE1 ---
HPI History of Present Illness Chief Complaint: Abd Pain Detail of Chief Complaint: Upper abdominal pain and vomiting Onset/Context/Timing Onset: - (October 19) Narrative Narrative: Patient presents from her PCPs office secondary to vomiting, dehydration, pancreatitis. Patient reportedly has had upper abdominal pain with nausea and vomiting since 19 October. Patient was in the ER once and to PCP office multiple times. She had been given antibiotics for presumed diverticulitis. When she did not improve she was sent for a CT scan in late October that showed evidence of pancreatitis. Patient was in the office today and while sitting in a wheelchair had a syncopal episode. Systolic blood pressure was in the high 90s. Heart rate was normal. She was sent to the ER via EMS for hydration and treatment. 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 Tachycardia Home Medications bimatoprost 1 drp EACH EYE QHS 06/23/17 [History Last Taken 11/14/20] brimonidine 1 drp EACH EYE BID 06/23/17 [History Last Taken 11/15/20] budesonide 3 mg PO DAILY 06/23/17 [History Last Taken 3 Days Ago ~11/12/20] hydroxychloroquine 200 mg PO DAILYCM 06/23/17 [History Last Taken 3 Days Ago ~11/12/20] levothyroxine 75 mcg PO DAILY 06/23/17 [History Last Taken 11/15/20] timolol maleate 1 drp EACH EYE DAILY 06/23/17 [History Last Taken 11/15/20] metoprolol succinate 50 mg PO BID 06/04/19 [History Last Taken 11/15/20] potassium chloride 10 meq PO DAILY 06/04/19 [History Last Taken 3 Days Ago ~11/12/20] acidophilus-pectin, citrus 2 tab PO DAILY PRN 07/30/19 [History Last Taken 3 Days Ago ~11/12/20] cholecalciferol (vitamin D3) 2,000 unit PO DAILY 07/30/19 [History Last Taken 07/29/19] hydrocortisone 5 mg PO DAILY 07/31/19 [History Last Taken 3 Days Ago ~11/12/20] food supplemt, lactose-reduced 120 ml PO DAILY 10/22/20 [History Last Taken Unknown] ondansetron 4 mg PO Q8H PRN PRN #10 tablet 10/22/20 [Rx Last Taken Unknown] Saccharomyces boulardii [Florastor] 250 mg PO BID 11/15/20 [History Last Taken 3 Days Ago ~11/12/20] calcium citrate 200 mg PO BID 11/15/20 [History Last Taken Unknown] promethazine 25 mg PO TID PRN PRN 11/15/20 [History Last Taken Unknown] Allergy/AdvReac Type Severity Reaction Status Date / Time Penicillins [PCN] Allergy Hives Verified 10/22/20 16:19 azathioprine [From Imuran] AdvReac Vomiting Verified 10/22/20 16:19 griseofulvin AdvReac NEEDS Verified 10/22/20 16:19 [From Priti-PEG FOLLOW-UP (ultramicrosize)] PEPCID AdvReac Mild PT UNSURE Uncoded 10/22/20 16:19 OF REACTION Family History Father Heart disease Mother Heart disease Surgical History H/O cataract extraction h/o mass removed from hip H/O tubal ligation Hx of cholecystectomy Social History Smoking Status: Never smoker ROS ROS ED Constitutional Constitutional ED: Denies chills or fever(s) Eyes Eyes: Denies change in vision ENT ENT ED: Denies sore throat Cardiovascular Cardiovascular: Denies chest pain Respiratory/Chest Respiratory/Chest: Denies cough or dyspnea Gastrointestinal Gastrointestinal: Reports abdominal pain, nausea and vomiting; Denies diarrhea Genitourinary Genitourinary ED: Denies dysuria Musculoskeletal Musculoskeletal: Denies back pain Integumentary Denies rash Neurologic Neurologic: Denies headache(s) or weakness Psychiatric Psychiatric: Denies anxiety or depression Endocrine Endocrinology: Denies polydipsia or polyuria Allergic/Immunologic Allergic/Immunologic ED: Denies urticaria EXAM Physical Exam Const Vital Signs: 11/15/20 12:19 11/15/20 12:56 11/15/20 13:13 Temperature 98.7 F 98.7 F Temperature Source Oral Temporal Pulse Rate 82 83 Pulse Rate [Lying] Pulse Rate [Sitting] Pulse Rate [Standing] Respiratory Rate 20 H 14 Blood Pressure 124/60 H 132/50 H Blood Pressure [Lying] Blood Pressure [Sitting] Blood Pressure [Standing] Blood Pressure Mean 81 77 Blood Pressure Mean [Lying] Blood Pressure Mean [Sitting] Blood Pressure Mean [Standing] Pulse Ox 99 98 99 Oxygen Delivery Method Room Air Room Air Room Air 11/15/20 15:00 11/15/20 15:11 Temperature 98.5 F Temperature Source Temporal Pulse Rate 85 Pulse Rate [Lying] 81 Pulse Rate [Sitting] 90 Pulse Rate [Standing] 88 Respiratory Rate 15 Blood Pressure 125/65 H Blood Pressure [Lying] 152/52 H Blood Pressure [Sitting] 135/59 H Blood Pressure [Standing] 135/54 H Blood Pressure Mean 85 Blood Pressure Mean [Lying] 85 Blood Pressure Mean [Sitting] 84 Blood Pressure Mean [Standing] 81 Pulse Ox 97 Oxygen Delivery Method Room Air Positive well nourished and well developed General Appearance ED: well developed HEENT Reports normocephalic and head/scalp atraumatic Eyes PERRL and EOMs intact bilaterally Neck supple Chest Wall inspection of chest normal and palpation of chest normal Resp normal respiratory effort and clear to auscultation bilaterally Cardio regular rate and regular rhythm GI Palpation: soft and tender epigastric; Negative for guarding or rebound tenderness present Back/Spine no CVA tenderness Extremity normal to inspection Neuro oriented x3 and no sensory deficits noted Sensorium / Orientation: alert Motor Exam: strength 5/5 throughout Psych mental status grossly normal Skin no rashes or lesions noted MDM MDM MDM Narrative Medical decision making narrative: Patient was given IV fluids. She declined anything for pain. CBC reveals mildly elevated white count of 12.1. Creatinine is normal at 0.86. Lipase is negative. Patient's sodium is low at 127 and chloride is 93. Potassium is also low at 3.3. Lab Data Attestation: I reviewed the patient's lab results. Labs: Laboratory Results - last 24 hr 11/15/20 11/15/20 11/15/20 12:52 12:52 12:52 WBC 12.1 H RBC 4.65 Hgb 14.1 Hct 42.8 MCV 92.0 MCH 30.3 MCHC 32.9 RDW Std Deviation 48.9 H RDW Coeff of Samreen 14.6 Plt Count 208 MPV 9.7 Immature Gran % (Auto) 1.200 H Neut % (Auto) 71.2 H Lymph % (Auto) 16.6 L [place] % (Auto) 9.8 Eos % (Auto) 0.7 Baso % (Auto) 0.5 Absolute Neuts (auto) 8.6 H Absolute Lymphs (auto) 2.00 Nucleated RBC % 0 Sodium 127 L Potassium 3.3 L Chloride 93 L Carbon Dioxide 22.0 Anion Gap 12 BUN 5 L Creatinine 0.86 Estim Creat Clear Calc 40.35 Est GFR (MDRD) Af Amer 82 Est GFR (MDRD) Non-Af 68 BUN/Creatinine Ratio 5.8 L Glucose 79 Calcium 8.8 Total Bilirubin 1.10 H Direct Bilirubin 0.24 AST 57 H ALT 38 Alkaline Phosphatase 60 Total Protein 7.2 Albumin 3.1 L Globulin 4.1 Lipase 54 L Urine Color Urine Clarity Urine pH Ur Specific [place] Urine Protein Urine Glucose (UA) Urine Ketones Urine Occult Blood Urine Nitrite Urine Bilirubin Urine Urobilinogen Ur Leukocyte Esterase 11/15/20 15:35 WBC RBC Hgb Hct MCV MCH MCHC RDW Std Deviation RDW Coeff of Samreen Plt Count MPV Immature Gran % (Auto) Neut % (Auto) Lymph % (Auto) [place] % (Auto) Eos % (Auto) Baso % (Auto) Absolute Neuts (auto) Absolute Lymphs (auto) Nucleated RBC % Sodium Potassium Chloride Carbon Dioxide Anion Gap BUN Creatinine Estim Creat Clear Calc Est GFR (MDRD) Af Amer Est GFR (MDRD) Non-Af BUN/Creatinine Ratio Glucose Calcium Total Bilirubin Direct Bilirubin AST ALT Alkaline Phosphatase Total Protein Albumin Globulin Lipase Urine Color Yellow Urine Clarity Clear Urine pH 6.0 Ur Specific [place] 1.015 Urine Protein 15 H Urine Glucose (UA) Normal Urine Ketones 150 A* Urine Occult Blood 10 H Urine Nitrite Negative Urine Bilirubin Negative Urine Urobilinogen Normal Ur Leukocyte Esterase 100 H EKG Initial EKG: Interpretation: Sinus Rhythm (Sinus at 82. T wave inversion in the inferior, 3 and aVL, leads. This is unchanged when compared to prior.) Treatment and Re-Evaluation Comments:: On repeat evaluation patient is resting comfortably. She has normal saline running. Patient was advised that her sodium and potassium are both low. She received 40 mEq of IV potassium replacement. Patient has not been able to tolerate p.o. and I do feel she require overnight stay for hydration as well as ensuring she is able to tolerate p.o. I will speak with hospitalist. Discharge Plan Dx/Rx/DC Orders Clinical Impression: Acute hyponatremia, Acute hypokalemia Disposition Disposition: Acute Care Hospital [facility]
[2020-11-15] MEDS: Potassium Chloride 10mEq/100mL 10 MEQ/100 ML IV.SOLN. 100 MEQ IV BOLUS ×4 (16:20→19:34)
[2020-11-15 16:24] LABS: Color, Urine Yellow (Yellow); Glucose, Dipstick Normal (Normal); Leukocyte Esterase-Dipstick 100 /ul (Negative); Nitrite-Dipstick Negative (Negative); Occult Blood-Urine 10 /ul (Negative); Protein-Dipstick 15 mg/dl (Negative); Specific Gravity, Urine 1.015 (1.002-1.030); Urine Bilirubin Dipstick Negative (Negative); Urine Clarity Clear (Clear); Urine Urobilinogen Normal (Normal)
--- NOTE | 2020-11-15 16:30 | PCM.HP.STD ---
HPI - General General Date of Admission: 11/15/20 HPI Narrative LIANA VALENCIA, is a 80 F with a PMH as outlined who was admitted via the ED with a complaint of syncope. She had upper abdominal pain a month ago and it has persisted since. Pain still persisted so she had a CT scan done of the abdomen which showed pancreatitis on November 10, but no diverticulitis. She states her PCP still put her on ciprofloxacin and Flagyl for presumed diverticulitis. She has been taking the antibiotics but she kept having persistent abdominal pain, with associated nausea and vomiting and inability to keep any food down. She went to see her PCP today, where she had a syncopal episode. BP was noted to be in the 90s systolic, so she was brought in to the ED. vitals in the ED at time of review showed blood pressure 152/52 but this was after she had been hydrated with fluids. CBC showed hemoglobin of 14.1 and WBC of 12.1 with platelets of 208. BMP shows sodium of 127 potassium was 3.3 and chloride of 93 with. Bicarb was 22. Urinalysis was pending. She has been admitted to be managed for syncope likely vasovagal due to dehydration and gastroenteritis as well as hyponatremia and hypokalemia. [facility] Medical History (Updated 11/15/20 @ 16:[address] 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 Tachycardia Home Medications bimatoprost 1 drp EACH EYE QHS 06/23/17 [History Last Taken 11/14/20] brimonidine 1 drp EACH EYE BID 06/23/17 [History Last Taken 11/15/20] budesonide 3 mg PO DAILY 06/23/17 [History Last Taken 3 Days Ago ~11/12/20] hydroxychloroquine 200 mg PO DAILYCM 06/23/17 [History Last Taken 3 Days Ago ~11/12/20] levothyroxine 75 mcg PO DAILY 06/23/17 [History Last Taken 11/15/20] timolol maleate 1 drp EACH EYE DAILY 06/23/17 [History Last Taken 11/15/20] metoprolol succinate 50 mg PO BID 06/04/19 [History Last Taken 11/15/20] potassium chloride 10 meq PO DAILY 06/04/19 [History Last Taken 3 Days Ago ~11/12/20] acidophilus-pectin, citrus 2 tab PO DAILY PRN 07/30/19 [History Last Taken 3 Days Ago ~11/12/20] cholecalciferol (vitamin D3) 2,000 unit PO DAILY 07/30/19 [History Last Taken 07/29/19] hydrocortisone 5 mg PO DAILY 07/31/19 [History Last Taken 3 Days Ago ~11/12/20] food supplemt, lactose-reduced 120 ml PO DAILY 10/22/20 [History Last Taken Unknown] ondansetron 4 mg PO Q8H PRN PRN #10 tablet 10/22/20 [Rx Last Taken Unknown] Saccharomyces boulardii [Florastor] 250 mg PO BID 11/15/20 [History Last Taken 3 Days Ago ~11/12/20] calcium citrate 200 mg PO BID 11/15/20 [History Last Taken Unknown] promethazine 25 mg PO TID PRN PRN 11/15/20 [History Last Taken Unknown] Allergy/AdvReac Type Severity Reaction Status Date / Time Penicillins [PCN] Allergy Hives Verified 10/22/20 16:19 azathioprine [From Imuran] AdvReac Vomiting Verified 10/22/20 16:19 griseofulvin AdvReac NEEDS Verified 10/22/20 16:19 [From Priti-PEG FOLLOW-UP (ultramicrosize)] PEPCID AdvReac Mild PT UNSURE Uncoded 10/22/20 16:19 OF REACTION Family History (Updated 11/15/20 @ 16:38 by Allie Fried) Father Heart disease Pacemaker Mother Heart disease Surgical History H/O cataract extraction h/o mass removed from hip H/O tubal ligation Hx of cholecystectomy Social History Smoking Status: Never smoker ROS Constitutional Constitutional: Reports anorexia, change in weight, fatigue, fever(s), malaise and weakness Eyes Eyes: Denies blurry vision ENT HEENT: Reports other Details: hard of hearing Cardiovascular Cardiovascular: Denies chest pain, dyspnea on exertion, lightheadedness, orthopnea, palpitations, paroxysmal nocturnal dyspnea or rapid heart rate Respiratory/Chest Respiratory/Chest: Denies cough, shortness of breath at rest or shortness of breath with exertion Gastrointestinal Gastrointestinal: Reports diarrhea, loose stools, nausea and vomiting Genitourinary Genitourinary: Denies burning urination or difficulty urinating Musculoskeletal Musculoskeletal: Denies arthralgias or back pain Neurologic Neurologic: Reports syncope; Denies abnormal gait, abnormal speech, focal weakness or headache(s) Psychiatric Psychiatric: Denies anxiety or depression Endocrine Endocrinology: Denies change in body appearance Hematologic/Lymphatic Hematologic/Lymphatic: Denies anemia Vital Signs Vital Signs Vital Signs: 11/15/20 12:19 11/15/20 12:56 11/15/20 13:13 Temperature 98.7 F 98.7 F Temperature Source Oral Temporal Pulse Rate 82 83 Pulse Rate [Lying] Pulse Rate [Sitting] Pulse Rate [Standing] Respiratory Rate 20 H 14 Blood Pressure 124/60 H 132/50 H Blood Pressure [Lying] Blood Pressure [Sitting] Blood Pressure [Standing] Blood Pressure Mean 81 77 Blood Pressure Mean [Lying] Blood Pressure Mean [Sitting] Blood Pressure Mean [Standing] Pulse Ox 99 98 99 Oxygen Delivery Method Room Air Room Air Room Air 11/15/20 15:00 11/15/20 15:11 Temperature 98.5 F Temperature Source Temporal Pulse Rate 85 Pulse Rate [Lying] 81 Pulse Rate [Sitting] 90 Pulse Rate [Standing] 88 Respiratory Rate 15 Blood Pressure 125/65 H Blood Pressure [Lying] 152/52 H Blood Pressure [Sitting] 135/59 H Blood Pressure [Standing] 135/54 H Blood Pressure Mean 85 Blood Pressure Mean [Lying] 85 Blood Pressure Mean [Sitting] 84 Blood Pressure Mean [Standing] 81 Pulse Ox 97 Oxygen Delivery Method Room Air Physical Exam Const alert and oriented x3 HEENT normocephalic and head/scalp atraumatic HEENT Narrative: hard of hearing;mucosa very dry Mouth: dry mucous membranes Eyes conjunctivae normal Neck no lymphadenopathy Resp normal respiratory effort, no retractions and no use of accessory muscles Cardio regular rate, regular rhythm, S1 normal heart sound, S2 normal heart sound and no murmurs GI normal to inspection, nondistended, normoactive bowel sounds, soft to palpation, non-tender and non-distended Extremity normal to inspection, full ROM and no clubbing, cyanosis or edema Skin no rashes or lesions noted and no wounds Neuro oriented x3 Sensorium / Orientation: awake and alert Psych affect normal Lab / Micro Data Result Diagrams: 11/15/20 12:52 11/15/20 12:52 Labs: Laboratory Results - last 24 hr 11/15/20 11/15/20 11/15/20 12:52 12:52 12:52 WBC 12.1 H RBC 4.65 Hgb 14.1 Hct 42.8 MCV 92.0 MCH 30.3 MCHC 32.9 RDW Std Deviation 48.9 H RDW Coeff of Samreen 14.6 Plt Count 208 MPV 9.7 Immature Gran % (Auto) 1.200 H Neut % (Auto) 71.2 H Lymph % (Auto) 16.6 L [place] % (Auto) 9.8 Eos % (Auto) 0.7 Baso % (Auto) 0.5 Absolute Neuts (auto) 8.6 H Absolute Lymphs (auto) 2.00 Nucleated RBC % 0 Sodium 127 L Potassium 3.3 L Chloride 93 L Carbon Dioxide 22.0 Anion Gap 12 BUN 5 L Creatinine 0.86 Estim Creat Clear Calc 40.35 Est GFR (MDRD) Af Amer 82 Est GFR (MDRD) Non-Af 68 BUN/Creatinine Ratio 5.8 L Glucose 79 Calcium 8.8 Total Bilirubin 1.10 H Direct Bilirubin 0.24 AST 57 H ALT 38 Alkaline Phosphatase 60 Total Protein 7.2 Albumin 3.1 L Globulin 4.1 Lipase 54 L Assessment & Plan Assessment/Plan (1) Acute hyponatremia: Status: Acute Code(s): E87.1 - Hypo-osmolality and hyponatremia (2) Acute hypokalemia: Status: Acute Code(s): E87.6 - Hypokalemia (3) Syncope: Status: Acute Code(s): R55 - Syncope and collapse (4) Pancreatitis: Status: Acute Code(s): K85.90 - Acute pancreatitis without necrosis or infection, unspecified (5) Gastroenteritis: Status: Acute Code(s): K52.9 - Noninfective gastroenteritis and colitis, unspecified Plan: #Syncope, likely due to dehydration -admit to med surg with telemetry -hydrate with iVF NS @ 150cc/hr IV zofran for nausea -check stool sample for ova and parasites -fall precautions -check orthostatics #Acute gastroenteritis -has been having nausea and vomiting as well as diarrhea for days -check C diff -check stool for ova and parasites as well as enteric pathogen -hold off on antibiotics for now as she has been on cipro and flagyl #Acute hyponatremia -likely due to deyhdration -Hydrate with IV fluids and trend. If it persists, will nephrology consult. #Acute hypokalemia: Potassium is 3.3. Will replace. #History of autoimmune hepatitis: Stable #Hypertension: On metoprolol #Hypothyroidism: On Synthroid #History of lupus: On hydroxychloroquine and hydrocortisone DVT prophylaxis: Lovenox CODE STATUS: Full code -Patient and daughter counseled extensively about difference between full code and DNR CCA as well as DNR CC. Patient elects to be full code. Total [id number] time 17 minutes. Visit Charges Inpatient E&M: 04869 Init Hosp L3 Procedures Hospitalists Procedures: 53732 Advncd Care Plan 30 Min
[2020-11-15 16:32] LABS: Ketone-Dipstick 150 mg/dl (Negative)
[2020-11-15 16:40] LABS: Squamous Epithelial Cells - UA 5-10 SEEN /hpf (5-10); White Blood Cells 0-5 SEEN /hpf (0-5)
[2020-11-15 16:41] LABS: Hyaline Cast 0-5 SEEN /lpf (0-5)
[2020-11-15] MEDS: Ondansetron 4 MG/2 ML Vial IV (21:19)
[2020-11-15] MEDS: Latanoprost 0.005% 1 Bottle 1 DRP EACH EYE (21:40)
[2020-11-15] MEDS: BRIMONIDINE 0.15% 5 ML Bottle 1 DRP EACH EYE (21:40)
[2020-11-15] MEDS: Metoprolol(XL)Succ 50 MG Tablet PO (22:41)
[2020-11-16] VITALS (12 sets, daily range): BP systolic 129–155; BP diastolic 38–61; PULSE 80–95; RESP 16–18; TEMP 37.3–37.7; O2SAT 96–97; BMI 21.1
[2020-11-16] MEDS: 0.9% Saline Lock 10 ML Syringe IV (00:24)
[2020-11-16] MEDS: Ondansetron 4 MG/2 ML Vial IV (05:50)
[2020-11-16 06:52] LABS: Absolute Lymphocyte Count 1.82 X10^3/uL (0.83-4.51); Absolute Neutrophil Count 6.4 X10^3/uL (2.0-7.7); Basophil# 0.05 X10^3/uL; Basophil% 0.5 % (0-1); Eosinophil# 0.06 X10^3/uL; Eosinophils% 0.6 % (0-5); Hematocrit 39.1 % (37-47); Hemoglobin 12.4 g/dL (12.0-15.0); Lymphocyte # 1.82 X10^3/ul (0.83-4.51); Lymphocyte % 18.9 % (19-41); Mean Corp Hgb Conc 31.7 g/dL (32-36); Mean Corpuscular Hgb 30.4 pg (27.0-32.0); Mean Corpuscular Volume 95.8 fL (81-99); Mean Platelet Vol. 10.2 fl (6.2-12.0); Monocyte# 1.19 X10^3/uL; Monocyte% 12.4 % (0-10); NRBC Flagged by Analyzer 0 % (0-5); Neutrophil # 6.38 X10^3/uL (2.7-7.7); Neutrophil % 66.5 % (47-70); Platelet Count 188 K/mm3 (150-450); RBC Distribution Width CV 14.6 % (11.6-14.6); RBC Distribution Width SD 51.5 fl (35.1-43.9); Red Blood Count 4.08 M/mm3 (4.2-5.4); White Blood Count 9.6 K/mm3 (4.4-11.0)
[2020-11-16 07:21] LABS: ALB/GLOB Ratio 0.6 RATIO (0.9-2.4); AST(SGOT) 41 U/L (15-37); Alanine Aminotransfer ALT/SGPT 30 U/L (13-56); Albumin, Serum 2.5 g/dL (3.2-5.0); Alkaline Phosphatase 48 U/L (45-117); Anion Gap 13 (5-15); BUN 4 mg/dL (7-18); BUN/Creat Ratio 6.1 RATIO (10-20); Calcium,Total 7.9 mg/dL (8.5-10.1); Chloride 104 mmol/L (98-107); Creatinine, Serum 0.66 mg/dL (0.55-1.02); EST Glomerular Filtration Rate 92 mL/min (>60); Est Glom Filt Rate - Afr Amer 112 mL/min (>60); Estimated Creatinine Clearance 32.51 ml/min; Globulin 4.5 g/dL (2.2-4.2); Glucose 54 mg/dL (74-106); Potassium 4.2 mmol/L (3.5-5.1); Sodium Level 130 mmol/L (136-145)
[2020-11-16] MEDS: Hydroxychloroquine 200 MG Tablet PO (09:28)
[2020-11-16] MEDS: Hydrocortisone 10 MG Tablet 5 MG PO (09:29)
[2020-11-16] MEDS: Enoxaparin 40 MG/0.4 ML Syringe SC (09:34)
[2020-11-16] MEDS: Metoprolol(XL)Succ 50 MG Tablet PO ×2 (09:34→21:14)
[2020-11-16] MEDS: Budesonide 3 MG CAPSULE.EC PO (09:34)
[2020-11-16] MEDS: Timolol 0.5% 5ML OPTH.BTL 1 DRP EACH EYE (09:35)
[2020-11-16] MEDS: BRIMONIDINE 0.15% 5 ML Bottle 1 DRP EACH EYE ×2 (09:36→21:13)
--- NOTE | 2020-11-16 10:10 | CASEMGMT ---
TAM CELESTE Face to Face with patient for initial transition planning/care coordination assessment. RN BOOKER introduced self and role at [facility]. Patient lying in bed, alert and oriented, daughter at bedside. Patient willing to participate in assessment and is able to answer all questions appropriately. Care providers, pharmacy, and demographics verified. Patient wishes to discharge home will monitor need for HHC pending progress with therapy. Patient states she has no further needs or concerns at this time. CM to follow for discharge planning needs that may arise. PCP: Ronald Specialists: Bdr at [facility] Preferred Pharmacy: [facility] Insurance: [employer] Prescription Benefit: yes Living Will/HPOA: none LNOK: , daughter Living Arrangements: Patient lives with in a single story home with ramp to enter the home. Patient states she is normally independent at home. Transportation: daughters DME/HHC: Patient states she has shower chair, cane, walker at home. Patient denies previous HHC or SNF. Will monitor progress with therapy for possible HHC at discharge. Disposition Plan: Patient to discharge home with family support and follow-up plans in place. Will monitor for HHC Melissa WATKINS, RN, CM
--- NOTE | 2020-11-16 12:12 | CASEMGMT ---
Palliative screening tool completed at this time for [facility] [facility]. Patient does not meet criteria per screening tool.
--- NOTE | 2020-11-16 12:44 | PCM.NTREPORT ---
Nutrition Therapy Report - History Nutrition Services has been consulted to:: Manage nutrient details of diet order Current diet / nutrition support order:: Cardiac; Ensure Clear 120 ml 4x/day medpass. - Anthropometric Measurements Height:: 4 ft 10 in Weight:: 101 lb 3.075 oz Body Mass Index (BMI):: 21.1 - Relevant Labs Relevant Labs:: WBC 12.1 K/mm3 (4.4-11.0) H 11/15/20 12:52 RBC 4.08 M/mm3 (4.2-5.4) L 11/16/20 06:05 MCHC 31.7 g/dL (32-36) L 11/16/20 06:05 RDW Std Deviation 51.5 fl (35.1-43.9) H 11/16/20 06:05 Immature Gran % (Auto) 1.100 % (0.0-0.9) H 11/16/20 06:05 Neut % (Auto) 71.2 % (47-70) H 11/15/20 12:52 Lymph % (Auto) 18.9 % (19-41) L 11/16/20 06:05 [place] % (Auto) 12.4 % (0-10) H 11/16/20 06:05 Absolute Neuts (auto) 8.6 X10^3/uL (2.0-7.7) H 11/15/20 12:52 Sodium 130 mmol/L (136-145) L 11/16/20 06:05 Potassium 3.3 mmol/L (3.5-5.1) L 11/15/20 12:52 Chloride 93 mmol/L (98-107) L 11/15/20 12:52 Carbon Dioxide 13.0 mmol/L (21.0-32.0) L 11/16/20 06:05 BUN 4 mg/dL (7-18) L 11/16/20 06:05 BUN/Creatinine Ratio 6.1 RATIO (10-20) L 11/16/20 06:05 Glucose 54 mg/dL (74-106) L 11/16/20 06:05 Calcium 7.9 mg/dL (8.5-10.1) L 11/16/20 06:05 Total Bilirubin 1.10 mg/dL (0.20-1.00) H 11/15/20 12:52 AST 41 U/L (15-37) H 11/16/20 06:05 Albumin 2.5 g/dL (3.2-5.0) L 11/16/20 06:05 Globulin 4.5 g/dL (2.2-4.2) H 11/16/20 06:05 Albumin/Globulin Ratio 0.6 RATIO (0.9-2.4) L 11/16/20 06:05 Lipase 54 U/L (73-393) L 11/15/20 12:52 - Assessment Food / Nutrition-Related History:: Pts daughter reports since October 19 pt have been dealing w/ illness causing N/V. States ER visit October 22 d/t pt unable to keep food/beverages down. After ER started to improve & able to tolerate toast & fluid but October 25 illness got worse & increased N/V prompting PCP visit. Pt again began to feel better after this visit and progressed to tolerate chicken noodle soup but N/V returned leading to MD visit November 01. Returned November 10 d/t worsening condition underwent CT scan revealed pancreatitis and began antibiotic which daughter notes pt began doing even worse & unable to tolerate PO diet without N/V. Pt daughter notes continued attempts during this time to promote PO intake- providing ensure clear, Gatorade, pedialyte, bone broth, soups, plain foods- pt intake resulted in vomiting. Notes pt w/ unintentional wt loss 6% x 1 month- UBW 108#. Per TAM Martinez pt continues w/ nausea- provided zofran w/ seemingly no improvement. Per pt & daughter poor intake this day consumed sips of gingerale- emesis this a.m. Refusing lunch agreeable to ensure clear & trying ensure enlive. Pt daughter continues to prompt pt to eat & drink- pt refusing d/t nausea & fear of emesis. Per EMR diarrhea this day. - Nutrition Diagnosis Problem / Etiology / Signs & Symptoms (PES):: Severe malnutrition in the context of acute illness AEB inadequate oral intake & unintentional wt loss AEB consuming </=50% energy intake compared to estimated energy needs x >/=1 month, wt loss 6% x 1 month. Evidence of Malnutrition Exists:: Yes Severe PCM:: Acute Illness - Nutrition Intervention Nutrition Prescription:: [id number] calories, 45-55 g protein per day - Food / Nutrient Delivery Interventions Summary of nutrition intervention:: Encouraged pt to drink Ensure Clear throughout day for additional david/protein- pt not accepting of PO foods at this time, more accepting of beverages- agreeable to try Ensure enlive w/ ensure clear at lunch. Declined to order food at lunch. Pts daughter notes continually trying to encourage pt intake. Nutrition support ordered as / adjusted to:: Will provide Regular diet. ONS Ensure Clear with Meals. Will provide further ONS as pt accepting. - MNT Monitoring Further MNT monitoring and evaluation required?: Yes MNT Follow-up in:: 3-5 days
--- NOTE | 2020-11-16 13:28 | PN.HOSP_ITS ---
Subjective Subjective: Patient seen and examined. Daughter was by her bedside. She still felt weak, and said she had had several episodes of diarrhea overnight. She also still felt nauseous. Review of systms is otherwise negative. C DIff screen was negative. Stool for ova and parasites and enteric pathogens pending. Objective Data Objective Data Vital Signs: Vital Signs Temp Pulse Resp BP Pulse Ox 99.1 F 80 16 155/38 H 96 11/16/20 09:24 11/16/20 09:34 11/16/20 09:24 11/16/20 09:24 11/16/20 09:24 Oxygen Delivery Method Room Air Weight: 101 lb 3.075 oz Body Mass Index (BMI) 21.1 Finger Stick Blood Glucose 79 Intake & Output: Intake and Output for Last 24 Hours 11/14/20 11/15/20 11/16/20 23:59 23:59 23:59 Intake Total 2649.59 / 2709.59 1424.58 / 1424.58 Balance 2649.59 / 2709.59 1424.58 / 1424.58 Lab / Micro Data Result Diagrams: 11/16/20 06:05 11/16/20 06:05 Labs: Laboratory Results - last 24 hr 11/15/20 11/15/20 11/16/20 12:52 15:35 06:05 WBC 9.6 RBC 4.08 L Hgb 12.4 Hct 39.1 MCV 95.8 MCH 30.4 MCHC 31.7 L RDW Std Deviation 51.5 H RDW Coeff of Samreen 14.6 Plt Count 188 MPV 10.2 Immature Gran % (Auto) 1.100 H Neut % (Auto) 66.5 Lymph % (Auto) 18.9 L [place]abella % (Auto) 12.4 H Eos % (Auto) 0.6 Baso % (Auto) 0.5 Absolute Neuts (auto) 6.4 Absolute Lymphs (auto) 1.82 Nucleated RBC % 0 Sodium Potassium Chloride Carbon Dioxide Anion Gap BUN Creatinine Estim Creat Clear Calc Est GFR (MDRD) Af Amer Est GFR (MDRD) Non-Af BUN/Creatinine Ratio Glucose Calcium Total Bilirubin 1.10 H Direct Bilirubin 0.24 AST 57 H ALT 38 Alkaline Phosphatase 60 Total Protein 7.2 Albumin 3.1 L Globulin 4.1 Albumin/Globulin Ratio Lipase 54 L Urine Color Yellow Urine Clarity Clear Urine pH 6.0 Ur Specific [place] 1.015 Urine Protein 15 H Urine Glucose (UA) Normal Urine Ketones 150 A* Urine Occult Blood 10 H Urine Nitrite Negative Urine Bilirubin Negative Urine Urobilinogen Normal Ur Leukocyte Esterase 100 H Urine RBC 0 SEEN Urine WBC 0-5 SEEN Ur Squamous Epith Cells 5-10 SEEN Urine Bacteria 0 SEEN Hyaline Casts 0-5 SEEN Urine Mucus 0 SEEN 11/16/20 06:05 WBC RBC Hgb Hct MCV MCH MCHC RDW Std Deviation RDW Coeff of Samreen Plt Count MPV Immature Gran % (Auto) Neut % (Auto) Lymph % (Auto) [place] % (Auto) Eos % (Auto) Baso % (Auto) Absolute Neuts (auto) Absolute Lymphs (auto) Nucleated RBC % Sodium 130 L Potassium 4.2 Chloride 104 Carbon Dioxide 13.0 L Anion Gap 13 BUN 4 L Creatinine 0.66 Estim Creat Clear Calc 32.51 Est GFR (MDRD) Af Amer 112 Est GFR (MDRD) Non-Af 92 BUN/Creatinine Ratio 6.1 L Glucose 54 L Calcium 7.9 L Total Bilirubin 0.90 Direct Bilirubin AST 41 H ALT 30 Alkaline Phosphatase 48 Total Protein 7.0 Albumin 2.5 L Globulin 4.5 H Albumin/Globulin Ratio 0.6 L Lipase Urine Color Urine Clarity Urine pH Ur Specific [place] Urine Protein Urine Glucose (UA) Urine Ketones Urine Occult Blood Urine Nitrite Urine Bilirubin Urine Urobilinogen Ur Leukocyte Esterase Urine RBC Urine WBC Ur Squamous Epith Cells Urine Bacteria Hyaline Casts Urine Mucus Micro: Microbiology 11/15/20 21:45 Stool Enteric Bacteriology - Final 11/15/20 21:45 Stool C. difficile DNA Amplification - Final Physical Exam Const alert and oriented x3 Orientation / Consciousness: lethargic Nutritional Appearance: thin HEENT normocephalic and head/scalp atraumatic Mouth: dry mucous membranes Eyes conjunctivae normal Neck no lymphadenopathy Resp normal respiratory effort, no retractions and no use of accessory muscles Cardio regular rate, regular rhythm, S1 normal heart sound, S2 normal heart sound and no murmurs GI normal to inspection, nondistended, normoactive bowel sounds, soft to palpation, non-tender and non-distended Extremity normal to inspection, full ROM and no clubbing, cyanosis or edema Skin no rashes or lesions noted and no wounds Neuro oriented x3 Sensorium / Orientation: awake and alert Psych affect normal Assessment & Plan Assessment/Plan (1) Gastroenteritis: Status: Acute Code(s): K52.9 - Noninfective gastroenteritis and colitis, unspecified (2) Syncope: Status: Acute Code(s): R55 - Syncope and collapse (3) Acute hyponatremia: Status: Acute Code(s): E87.1 - Hypo-osmolality and hyponatremia (4) Acute hypokalemia: Status: Acute Code(s): E87.6 - Hypokalemia (5) Lupus: Status: Chronic Code(s): L93.0 - Discoid lupus erythematosus Qualifiers: Systemic lupus erythematosus type: unspecified Systemic lupus erythematosus organ involvement: unspecified (6) Hyperlipidemia: Status: Chronic Code(s): E78.5 - Hyperlipidemia, unspecified Qualifiers: Hyperlipidemia type: unspecified Qualified Code(s): E78.5 - Hyperlipidemia, unspecified Plan: #Syncope, likely due to dehydration * still remains lethargic * being hydrated with IVF. still feels nauseous and still having diarrhea * C Diff screen was negative. Stool for enteric pathogens and ova and parasites pending * continue gentle hydration with IVF * fall precautions #Acute gastroenteritis * having nausea and diarrhea * C. difficile was negative and stool for ova and parasites and enteric pathogens pending. * Will give loperamide to help with diarrhea. * CT scan from 11/10/2020 showed sigmoid diverticulosis with no radiographic evidence of diverticulitis and calcification seen throughout the pancreas suggestive of chronic pancreatitis. #Chronic pancreatitis * This may also be contributing to diarrhea. CT scan findings as above. * We will start patient on Creon. #Acute hyponatremia * Sodium is 130 today. We will continue gentle hydration and monitor. * #Acute hypokalemia: Resolved. Potassium was 4.2 today. #History of autoimmune hepatitis: Stable #Hypertension: On metoprolol #Hypothyroidism: On Synthroid #History of lupus: On hydroxychloroquine and hydrocortisone DVT prophylaxis: Lovenox CODE STATUS: Full code -
--- NOTE | 2020-11-16 15:24 | CHAPLAIN ---
Type of Pastoral Visit _x__ Initial Visit ___ Follow-up Visit ___ On-call Visit ___ General Patient Visit ___ Spiritual Assessment ___ Family Conference ___ Bereavement ___ Rapid Response ___ Code Blue ___ Other (describe below) Pastoral Care Referral From _x__ Patient ___ Family ___ Nurse ___ Physician ___ Security Operations Center Operator ___ De Icer ___ Other (describe below) Sacrament/Intervention ___ Active listening ___ Anointing ___ Anabaptism ___ Bereavement ___ Communion ___ Sunshine exploration ___ ___ Life review _x__ Prayer ___ Reconciliation ___ Sacrament of Sick _x__ Supportive presence ___ Wedding ___ Other (describe below) Pastoral Comments patient says she is so weak and is not talkative; daughter is with patient and expresses the details of pt need; prayer welcomed
[2020-11-16] MEDS: Latanoprost 0.005% 1 Bottle 1 DRP EACH EYE (21:14)
[2020-11-17] VITALS (11 sets, daily range): BP systolic 135–158; BP diastolic 59–69; PULSE 72–85; RESP 16–18; TEMP 36.8–37.3; O2SAT 97–100
[2020-11-17 05:34] LABS: Absolute Lymphocyte Count 1.07 X10^3/uL (0.83-4.51); Absolute Neutrophil Count 6.5 X10^3/uL (2.0-7.7); Basophil# 0.03 X10^3/uL; Basophil% 0.4 % (0-1); Eosinophil# 0.05 X10^3/uL; Eosinophils% 0.6 % (0-5); Hematocrit 37.3 % (37-47); Hemoglobin 12.2 g/dL (12.0-15.0); Lymphocyte # 1.07 X10^3/ul (0.83-4.51); Lymphocyte % 12.5 % (19-41); Mean Corp Hgb Conc 32.7 g/dL (32-36); Mean Corpuscular Hgb 30.2 pg (27.0-32.0); Mean Corpuscular Volume 92.3 fL (81-99); Mean Platelet Vol. 10.2 fl (6.2-12.0); Monocyte# 0.85 X10^3/uL; Monocyte% 9.9 % (0-10); NRBC Flagged by Analyzer 0 % (0-5); Neutrophil # 6.49 X10^3/uL (2.7-7.7); Neutrophil % 75.7 % (47-70); Platelet Count 180 K/mm3 (150-450); RBC Distribution Width CV 14.6 % (11.6-14.6); RBC Distribution Width SD 49.6 fl (35.1-43.9); Red Blood Count 4.04 M/mm3 (4.2-5.4); White Blood Count 8.6 K/mm3 (4.4-11.0)
[2020-11-17 05:56] LABS: Anion Gap 8 (5-15); BUN 2 mg/dL (7-18); Calcium,Total 7.9 mg/dL (8.5-10.1); Chloride 106 mmol/L (98-107); EST Glomerular Filtration Rate 125 mL/min (>60); Est Glom Filt Rate - Afr Amer 151 mL/min (>60); Estimated Creatinine Clearance 32.51 ml/min; Glucose 122 mg/dL (74-106); Potassium 4.2 mmol/L (3.5-5.1); Sodium Level 132 mmol/L (136-145)
[2020-11-17] MEDS: Menthol/Lanolin/Calamine/Znox 113 GM Tube 1 APPLIC TOPICAL ×2 (09:42→21:29)
[2020-11-17] MEDS: Timolol 0.5% 5ML OPTH.BTL 1 DRP EACH EYE (09:42)
[2020-11-17] MEDS: Metoprolol(XL)Succ 50 MG Tablet PO ×2 (09:43→21:28)
[2020-11-17] MEDS: Hydroxychloroquine 200 MG Tablet PO (09:43)
[2020-11-17] MEDS: Enoxaparin 40 MG/0.4 ML Syringe SC (09:43)
[2020-11-17] MEDS: Hydrocortisone 10 MG Tablet 5 MG PO (09:43)
[2020-11-17] MEDS: Budesonide 3 MG CAPSULE.EC PO (09:44)
[2020-11-17] MEDS: BRIMONIDINE 0.15% 5 ML Bottle 1 DRP EACH EYE ×2 (09:44→21:28)
--- NOTE | 2020-11-17 10:00 | CASEMGMT ---
TAM CELESTE in to discuss discharge planning with patient. Daughter at bedside. TAM CELESTE discussed possible HHC at discharge. Patient declines need at this time. Patient was provided a list of HHC providers including quality and resource use data and consistent with the patient?s preferred geographic region, medical needs, and insurance network. TAM CELESTE instructed patient that should she reconsider while at [facility] that CM could assist and setup HHC. RN BOOKER educated that if the patient discharges home and would like HHC, patient can follow-up with PCP. Patient and daughter voiced understanding. TAM CELESTE will continue to follow this patient and plan for a safe discharge.
[2020-11-17] MEDS: Levothyroxine 75 MCG Tablet PO (11:51)
--- NOTE | 2020-11-17 13:10 | PN.HOSP_ITS ---
Subjective Subjective: Patient seen and examined. Daughter was by her bedside. She said her nausea had improved and diarrhea had also improved. She has been able to tolerate Ensure clears. She felt much better and was sitting up in her chair. Review of systems otherwise negative. Objective Data Objective Data Vital Signs: Vital Signs Temp Pulse Resp BP Pulse Ox 99.2 F H 85 18 135/59 H 98 11/17/20 09:39 11/17/20 09:43 11/17/20 09:39 11/17/20 09:39 11/17/20 09:39 Oxygen Delivery Method Room Air Weight: 101 lb 3.075 oz Body Mass Index (BMI) 21.1 Finger Stick Blood Glucose 79 Intake & Output: Intake and Output for Last 24 Hours 11/15/20 11/16/20 11/17/20 23:59 23:59 23:59 Intake Total 2649.59 / 2709.59 2424.58 / 2424.58 2171.25 / 2171.25 Balance 2649.59 / 2709.59 2424.58 / 2424.58 2171.25 / 2171.25 Lab / Micro Data Result Diagrams: 11/17/20 05:14 11/17/20 05:14 Labs: Laboratory Results - last 24 hr 11/17/20 11/17/20 05:14 05:14 WBC 8.6 RBC 4.04 L Hgb 12.2 Hct 37.3 MCV 92.3 MCH 30.2 MCHC 32.7 RDW Std Deviation 49.6 H RDW Coeff of Samreen 14.6 Plt Count 180 MPV 10.2 Immature Gran % (Auto) 0.900 Neut % (Auto) 75.7 H Lymph % (Auto) 12.5 L [place] % (Auto) 9.9 Eos % (Auto) 0.6 Baso % (Auto) 0.4 Absolute Neuts (auto) 6.5 Absolute Lymphs (auto) 1.07 Nucleated RBC % 0 Sodium 132 L Potassium 4.2 Chloride 106 Carbon Dioxide 18.0 L Anion Gap 8 BUN 2 L Creatinine 0.50 L Estim Creat Clear Calc 32.51 Est GFR (MDRD) Af Amer 151 Est GFR (MDRD) Non-Af 125 BUN/Creatinine Ratio 4.0 L Glucose 122 H Calcium 7.9 L Micro: Microbiology 11/15/20 21:45 Stool Enteric Bacteriology - Final 11/15/20 21:45 Stool C. difficile DNA Amplification - Final Physical Exam Const alert, oriented x3 and no apparent distress Constitutional Narrative: looks much better today Nutritional Appearance: thin HEENT normocephalic and head/scalp atraumatic Head and Scalp: normocephalic Eyes conjunctivae normal Neck no lymphadenopathy Resp normal respiratory effort, no retractions and no use of accessory muscles Cardio regular rate, regular rhythm, S1 normal heart sound, S2 normal heart sound and no murmurs GI normal to inspection, nondistended, normoactive bowel sounds, soft to palpation, non-tender and non-distended Extremity normal to inspection, full ROM and no clubbing, cyanosis or edema Skin no rashes or lesions noted and no wounds Neuro oriented x3 Sensorium / Orientation: awake and alert Psych affect normal Assessment & Plan Assessment/Plan (1) Gastroenteritis: Status: Acute Code(s): K52.9 - Noninfective gastroenteritis and colitis, unspecified (2) Syncope: Status: Acute Code(s): R55 - Syncope and collapse (3) Pancreatitis: Status: Acute Code(s): K85.90 - Acute pancreatitis without necrosis or infection, unspecified (4) Autoimmune hepatitis: Status: Chronic Code(s): K75.4 - Autoimmune hepatitis Plan: #Syncope, likely due to dehydration * feels much better today. nausea has improved and diarrhea has also improved. * being hydrated with IVF. still feels nauseous and still having diarrhea * C Diff screen was negative. Stool for enteric pathogens also negative; Stool ova and parasites pending * continue gentle hydration with IVF * fall precautions #Acute gastroenteritis * resolving; diarrhea and vomiting as well as nausea has improved. * C. difficile was negative and stool for enteric pathogens also negative. Stool for ova and parasites pending * Will give loperamide to help with diarrhea. * CT scan from 11/10/2020 showed sigmoid diverticulosis with no radiographic evidence of diverticulitis and calcification seen throughout the pancreas suggestive of chronic pancreatitis. * I think this diarrhea may also be related to chronic pancreatitis. #Chronic pancreatitis * This may also be contributing to diarrhea. CT scan findings as above. * patient on Creon #Acute hyponatremia * Sodium is 132 today. We will continue gentle hydration and monitor. * #Acute hypokalemia: Resolved. #History of autoimmune hepatitis: Stable #Hypertension: On metoprolol #Hypothyroidism: On Synthroid #History of lupus: On hydroxychloroquine and hydrocortisone DVT prophylaxis: Lovenox CODE STATUS: Full code - Visit Charges Inpatient E&M: 47847 Subs Hosp L2
[2020-11-17] MEDS: Latanoprost 0.005% 1 Bottle 1 DRP EACH EYE (21:27)
[2020-11-18] VITALS (7 sets, daily range): BP systolic 129–153; BP diastolic 42–59; PULSE 69–87; RESP 18; TEMP 36.7–36.8; O2SAT 97–99
[2020-11-18 06:14] LABS: Absolute Lymphocyte Count 1.29 X10^3/uL (0.83-4.51); Absolute Neutrophil Count 4.8 X10^3/uL (2.0-7.7); Basophil# 0.02 X10^3/uL; Basophil% 0.3 % (0-1); Eosinophil# 0.09 X10^3/uL; Eosinophils% 1.3 % (0-5); Hematocrit 32.1 % (37-47); Hemoglobin 10.4 g/dL (12.0-15.0); Lymphocyte # 1.29 X10^3/ul (0.83-4.51); Lymphocyte % 18.8 % (19-41); Mean Corp Hgb Conc 32.4 g/dL (32-36); Mean Corpuscular Hgb 30.1 pg (27.0-32.0); Mean Corpuscular Volume 92.8 fL (81-99); Mean Platelet Vol. 10.3 fl (6.2-12.0); Monocyte# 0.67 X10^3/uL; Monocyte% 9.8 % (0-10); NRBC Flagged by Analyzer 0 % (0-5); Neutrophil # 4.77 X10^3/uL (2.7-7.7); Neutrophil % 69.4 % (47-70); Platelet Count 167 K/mm3 (150-450); RBC Distribution Width CV 14.7 % (11.6-14.6); RBC Distribution Width SD 50.6 fl (35.1-43.9); Red Blood Count 3.46 M/mm3 (4.2-5.4); White Blood Count 6.9 K/mm3 (4.4-11.0)
[2020-11-18] MEDS: Levothyroxine 75 MCG Tablet PO (06:23)
[2020-11-18 06:44] LABS: Anion Gap 5 (5-15); BUN 2 mg/dL (7-18); BUN/Creat Ratio 4.6 RATIO (10-20); Calcium,Total 7.6 mg/dL (8.5-10.1); Chloride 112 mmol/L (98-107); Creatinine, Serum 0.44 mg/dL (0.55-1.02); EST Glomerular Filtration Rate 147 mL/min (>60); Est Glom Filt Rate - Afr Amer 178 mL/min (>60); Estimated Creatinine Clearance 32.51 ml/min; Glucose 90 mg/dL (74-106); Potassium 3.8 mmol/L (3.5-5.1); Sodium Level 137 mmol/L (136-145)
[2020-11-18] MEDS: Metoprolol(XL)Succ 50 MG Tablet PO (08:34)
[2020-11-18] MEDS: BRIMONIDINE 0.15% 5 ML Bottle 1 DRP EACH EYE (08:34)
[2020-11-18] MEDS: Budesonide 3 MG CAPSULE.EC PO (09:20)
[2020-11-18] MEDS: Hydrocortisone 10 MG Tablet 5 MG PO (09:20)
[2020-11-18] MEDS: Hydroxychloroquine 200 MG Tablet PO (09:20)
[2020-11-18] MEDS: Menthol/Lanolin/Calamine/Znox 113 GM Tube 1 APPLIC TOPICAL (09:21)
[2020-11-18] MEDS: Enoxaparin 40 MG/0.4 ML Syringe SC (09:21)
[2020-11-18] MEDS: Timolol 0.5% 5ML OPTH.BTL 1 DRP EACH EYE (09:25)
[2020-11-18 12:45] LABS: Bacteria 0 SEEN /hpf (None Seen); Mucous, Urine 0 SEEN /hpf (<or=2+); Red Blood Cells-Urine 0 SEEN /hpf (0-5); White Blood Cells 0 SEEN /hpf (0-5)
[2020-11-18 12:50] LABS: Color, Urine Yellow (Yellow); Glucose, Dipstick Normal (Normal); Ketone-Dipstick Negative (Negative); Leukocyte Esterase-Dipstick Negative /ul (Negative); Nitrite-Dipstick Negative (Negative); Occult Blood-Urine Negative /ul (Negative); Protein-Dipstick Negative (Negative); Urine Bilirubin Dipstick Negative (Negative); Urine Clarity Sl. Cloudy (Clear); Urine Urobilinogen Normal (Normal)
[2020-11-18 12:56] LABS: Squamous Epithelial Cells - UA 0-5 SEEN /hpf (5-10)
--- NOTE | 2020-11-18 14:28 | PCM.DC.SUM ---
Providers Date of Admission: 11/15/20 Primary Care Physician: Dr. Ashvin Cardenas MD Reason For Visit: GASTROENTERITIS, SYNCOPE Diagnosis Discharge Diagnosis (1) Gastroenteritis: Status: Acute Code(s): K52.9 - Noninfective gastroenteritis and colitis, unspecified (2) Syncope: Status: Acute Code(s): R55 - Syncope and collapse (3) Pancreatitis: Status: Acute Code(s): K85.90 - Acute pancreatitis without necrosis or infection, unspecified (4) Autoimmune hepatitis: Status: Chronic Code(s): K75.4 - Autoimmune hepatitis Medications at Discharge Home Medications bimatoprost 1 drp EACH EYE QHS 06/23/17 brimonidine 1 drp EACH EYE BID 06/23/17 budesonide 3 mg PO DAILY 06/23/17 hydroxychloroquine 200 mg PO DAILYCM 06/23/17 levothyroxine 75 mcg PO DAILY 06/23/17 timolol maleate 1 drp EACH EYE DAILY 06/23/17 metoprolol succinate 50 mg PO BID 06/04/19 potassium chloride 10 meq PO DAILY 06/04/19 acidophilus-pectin, citrus 2 tab PO DAILY PRN 07/30/19 cholecalciferol (vitamin D3) 2,000 unit PO DAILY 07/30/19 hydrocortisone 5 mg PO DAILY 07/31/19 food supplemt, lactose-reduced 120 ml PO DAILY 10/22/20 ondansetron 4 mg PO Q8H PRN PRN #10 tablet 10/22/20 Saccharomyces boulardii [Florastor] 250 mg PO BID 11/15/20 calcium citrate 200 mg PO BID 11/15/20 promethazine 25 mg PO TID PRN PRN 11/15/20 [id number] [Creon] 1 cap PO TIDCM #90 cap 11/18/20 Hospital Course Operations None Procedures None Summary of Care Provided Minutes Spent on Discharge: 45 Hospital Course: LIANA VALENCIA, is a 80 F with a PMH as outlined who was admitted via the ED with a complaint of syncope. She had upper abdominal pain a month ago and it has persisted since. Pain still persisted so she had a CT scan done of the abdomen which showed pancreatitis on November 10, but no diverticulitis. She states her PCP still put her on ciprofloxacin and Flagyl for presumed diverticulitis. She had been taking the antibiotics but she kept having persistent abdominal pain, with associated nausea and vomiting and inability to keep any food down. She went to see her PCP today, where she had a syncopal episode. BP was noted to be in the 90s systolic, so she was brought in to the ED. vitals in the ED at time of review showed blood pressure 152/52 but this was after she had been hydrated with fluids. CBC showed hemoglobin of 14.1 and WBC of 12.1 with platelets of 208. BMP shows sodium of 127 potassium was 3.3 and chloride of 93 with. Bicarb was 22. Urinalysis was pending. She was admitted to be managed for syncope likely vasovagal due to dehydration and gastroenteritis as well as hyponatremia and hypokalemia. She was hydrated with IV fluids and potassium was also replaced per protocol. C. difficile screen done was negative and stool for enteric pathogen was also negative. Diarrhea gradually improved and nausea also improved significantly. Hypokalemia and hyponatremia resolved. Patient was started on an oral diet, and tolerated clear liquids. As this was gradually advanced to full liquids and then regular diet which he tolerated. Of note, patient's CT of the abdomen done showed evidence of chronic pancreatitis, so she was started on Creon. Patient remained stable and was discharged home on 11/18/2020. She was discharged with a prescription for Creon. She is follow-up with her primary care doctor in 1 to 2 weeks. Patient was seen and examined prior to discharge. She had no complaints. Daughter was by her bedside. She felt much better and she has not had any nausea vomiting or diarrhea. Symptoms otherwise negative. Labs and vitals reviewed. Home medication reviewed and reconciled. Physical Exam Const alert, oriented x3 and no apparent distress Constitutional Narrative: looks much better today General Appearance: cooperative and comfortable Orientation / Consciousness: awake, oriented to person, oriented to place and oriented to time Exam Limitations: no limitations Nutritional Appearance: thin HEENT normocephalic, head/scalp atraumatic and moist oral mucous membranes Eyes conjunctivae normal Neck no lymphadenopathy Resp normal respiratory effort, no retractions and no use of accessory muscles Cardio regular rate, regular rhythm, S1 normal heart sound, S2 normal heart sound and no murmurs GI normal to inspection, nondistended, normoactive bowel sounds, soft to palpation, non-tender and non-distended Extremity normal to inspection, full ROM and no clubbing, cyanosis or edema Skin no rashes or lesions noted and no wounds Neuro oriented x3 Sensorium / Orientation: awake and alert Psych affect normal ABG / Lab / Microbiology Data Result Diagrams: 11/18/20 06:06 11/18/20 06:06 Laboratory: Laboratory Results - last 24 hr 11/18/20 11/18/20 11/18/20 06:06 06:06 09:45 WBC 6.9 RBC 3.46 L Hgb 10.4 L Hct 32.1 L MCV 92.8 MCH 30.1 MCHC 32.4 RDW Std Deviation 50.6 H RDW Coeff of Samreen 14.7 H Plt Count 167 MPV 10.3 Immature Gran % (Auto) 0.400 Neut % (Auto) 69.4 Lymph % (Auto) 18.8 L [place] % (Auto) 9.8 Eos % (Auto) 1.3 Baso % (Auto) 0.3 Absolute Neuts (auto) 4.8 Absolute Lymphs (auto) 1.29 Nucleated RBC % 0 Sodium 137 Potassium 3.8 Chloride 112 H Carbon Dioxide 20.0 L Anion Gap 5 BUN 2 L Creatinine 0.44 L Estim Creat Clear Calc 32.51 Est GFR (MDRD) Af Amer 178 Est GFR (MDRD) Non-Af 147 BUN/Creatinine Ratio 4.6 L Glucose 90 Calcium 7.6 L Urine Color Yellow Urine Clarity Sl. Cloudy Urine pH 6.0 Ur Specific [place] 1.010 Urine Protein Negative Urine Glucose (UA) Normal Urine Ketones Negative Urine Occult Blood Negative Urine Nitrite Negative Urine Bilirubin Negative Urine Urobilinogen Normal Ur Leukocyte Esterase Negative Urine RBC 0 SEEN Urine WBC 0 SEEN Ur Squamous Epith Cells 0-5 SEEN Urine Bacteria 0 SEEN Urine Mucus 0 SEEN Microbiology: Microbiology 11/15/20 21:45 Stool Enteric Bacteriology - Final 11/15/20 21:45 Stool C. difficile DNA Amplification - Final D/C Instructions Discharge Diet: Low fat / Low cholesterol Discharge Activity: Return to Normal Activity Weight Bearing Status: Weight bearing as tolerated Meaningful Use Info Meaningful Use Diagnoses (Choose all that apply): None applicable Discharge Plan Admission Admit Date/Time: 11/15/20 17:02 Attending Provider: Janina Carrero Primary Care Provider: Ashvin Cardenas Instructions Patient Instructions: Chronic Pancreatitis, ED Diarrhea, Unknown Cause Discharge Orders/Prescriptions Prescriptions: New Creon 12,000-38,000 -60,000 unit Capsule,Delayed Release(Dr/Ec) 1 cap PO TIDCM Qty: 90 RF: 1 Continued levothyroxine 75 MCG tablet 75 mcg PO DAILY RF: 0 budesonide 3 MG capsule,delayed,extend.release 3 mg PO DAILY RF: 0 hydroxychloroquine 200 MG tablet 200 mg PO DAILYCM RF: 0 brimonidine 1 DROP bottle 1 drp EACH EYE BID RF: 0 bimatoprost 1 DROP bottle 1 drp EACH EYE QHS RF: 0 timolol maleate 1 DROP drops 1 drp EACH EYE DAILY RF: 0 potassium chloride 10 MEQ capsule, extended release 10 meq PO DAILY RF: 0 metoprolol succinate 50 MG tablet extended release 24 hr 50 mg PO BID RF: 0 acidophilus-pectin, citrus 1 TABLET tablet 2 tab PO DAILY PRN (Reason: vitamin) RF: 0 cholecalciferol (vitamin D3) 2,000 UNIT capsule 2,000 unit PO DAILY RF: 0 hydrocortisone 5 MG tablet 5 mg PO DAILY RF: 0 food supplemt, lactose-reduced 120 ML liquid 120 ml PO DAILY RF: 0 ondansetron 4 MG tablet 4 mg PO Q8H PRN PRN (Reason: Nausea) Qty: 10 RF: 0 calcium citrate 200 mg (950 mg) Tablet 200 mg PO BID RF: 0 Saccharomyces boulardii [Florastor] 250 mg Capsule 250 mg PO BID RF: 0 promethazine 12.5 mg tablet 25 mg PO TID PRN PRN (Reason: Nausea) RF: 0 Referrals / Follow Up: Ashvin Cardenas MD [Primary Care Provider] - Within 2 Weeks Disposition Disposition (needs filled in before D/C Order can be placed): Home, self care Visit Charges Inpatient E&M: 79018 Disch Hosp
--- NOTE | 2020-11-18 15:00 | CASEMGMT ---
TAM CELESTE NOTE: Pt being discharged. TAM CELESTE to room to talk w/pt and dtr who is at bedside. They are aware therapy is recommending additional therapy. Discussed HHC. Pt states she is still not sure if she would like HHC. She states does not want it set up at this time and wants to wait until she gets home to decide. Pt/dtr have been given a list of HHC agencies in the area. Reinforced w/them to f/u with pt's PCP if she decides she would like it later. They voice understanding. Khanh STAPLESN TAM CM
--- NOTE | 2020-11-19 14:55 | CASEMGMT ---
TAM CELESTE Discharge Follow-up Phone Call: ALISON: 12 Strata: 11 Call Date: 11/19/20 Discharge Date: 11/18/20 Time of Call: 1455 Duration: 3 min Admitting Diagnosis: Gastroenteritis, snycope TAM CELESTE completed follow-up phone call after recent hospitalization. Daughter Barbara answered phone. States patient is doing well. Barbara states she had no questions or concerns regarding discharge instructions. Daughter states they were able to fill prescriptions without any issues. Patient has follow-up appt scheduled for Sunday with PCP. Daughter had no further questions or concerns at this time.
== END 2020-11-18 16:11 | disposition home or self-care (01) | DRG 640 ==
LOC: ED 15:56 → MS3 17:06
PROVIDERS: Admitting Provider Student in an Organized Health Care Education/Training Program; Emergency Provider Emergency Medicine; PCP Family Medicine; Visit Provider Student in an Organized Health Care Education/Training Program
DX: E86.0 Dehydration (principal); K85.90 Acute pancreatitis without necrosis or infection, unspecified; E44.0 Moderate protein-calorie malnutrition; K86.1 Other chronic pancreatitis; K52.9 Noninfective gastroenteritis and colitis, unspecified; E87.1 Hypo-osmolality and hyponatremia; R55 Syncope and collapse; E87.6 Hypokalemia; K75.4 Autoimmune hepatitis; L93.0 Discoid lupus erythematosus; I10 Essential (primary) hypertension; E78.5 Hyperlipidemia, unspecified; E03.9 Hypothyroidism, unspecified; H40.9 Unspecified glaucoma; H91.93 Unspecified hearing loss, bilateral; Z79.890 Hormone replacement therapy; Z68.21 Body mass index [BMI] 21.0-21.9, adult; Z79.899 Other long term (current) drug therapy; Z86.73 Personal history of transient ischemic attack (TIA), and cerebral infarction without residual deficits
CPT/HCPCS: 36415; 80048; 80053; 80076; 81001; 83690; 85025; 87177; 87209; 87493; 87506; 93005; 97110; 97163; 97166; 97530; 97535; 97802; 99285; J7030; A4216; J2405

== ENCOUNTER → 2020-11-22 15:16 | Outpatient (CLI) | payer MEDICARE, SELFPAY ==
[2020-11-16 12:52] VITALS: BMI 21.1
[2020-11-22 18:23] LABS: AST(SGOT) 36 U/L (15-37); Alanine Aminotransfer ALT/SGPT 44 U/L (13-56); Albumin, Serum 3.1 g/dL (3.2-5.0); Alkaline Phosphatase 68 U/L (45-117); Amylase 27 U/L (25-115); Bilirubin, Direct 0.14 mg/dL (0.00-0.30); Globulin 4.5 g/dL (2.2-4.2); Lipase 65 U/L (73-393); Protein, Total 7.6 g/dL (6.4-8.2)
== END ==
PROVIDERS: PCP Family Medicine; Referring Provider Family Medicine; Visit Provider Family Medicine
DX: K85.90 Acute pancreatitis without necrosis or infection, unspecified (principal)
CPT/HCPCS: 36415; 80076; 82150; 83690

== ENCOUNTER → 2021-01-13 16:22 | Outpatient (CLI) | payer MEDICARE, SELFPAY ==
[2020-11-16 12:52] VITALS: BMI 21.1
[2021-01-13 17:47] LABS: Absolute Lymphocyte Count 1.82 X10^3/uL (0.83-4.51); Absolute Neutrophil Count 6.1 X10^3/uL (2.0-7.7); Basophil# 0.04 X10^3/uL; Basophil% 0.4 % (0-1); Eosinophils% 1.1 % (0-5); Hematocrit 42.2 % (37-47); Hemoglobin 13.9 g/dL (12.0-15.0); Lymphocyte # 1.82 X10^3/ul (0.83-4.51); Lymphocyte % 20.2 % (19-41); Mean Corp Hgb Conc 32.9 g/dL (32-36); Mean Corpuscular Hgb 30.8 pg (27.0-32.0); Mean Corpuscular Volume 93.4 fL (81-99); Mean Platelet Vol. 9.8 fl (6.2-12.0); Monocyte# 0.88 X10^3/uL; Monocyte% 9.8 % (0-10); NRBC Flagged by Analyzer 0 % (0-5); Neutrophil % 67.6 % (47-70); Platelet Count 222 K/mm3 (150-450); RBC Distribution Width CV 15.4 % (11.6-14.6); RBC Distribution Width SD 52.9 fl (35.1-43.9); Red Blood Count 4.52 M/mm3 (4.2-5.4)
[2021-01-13 18:01] LABS: Prothrombin Time (Protime)PT. 12.8 SECONDS (11.7-14.9)
[2021-01-13 18:33] LABS: AST(SGOT) 27 U/L (15-37); Alanine Aminotransfer ALT/SGPT 30 U/L (13-56); Albumin, Serum 3.5 g/dL (3.2-5.0); Alkaline Phosphatase 92 U/L (45-117); Bilirubin, Direct 0.12 mg/dL (0.00-0.30); GGTP 30 U/L (5-55); Globulin 4.6 g/dL (2.2-4.2); Protein, Total 8.1 g/dL (6.4-8.2)
[2021-01-15 08:42] LABS: AFP, Tumor Marker 1.2 ng/mL (0.0-8.3)
== END ==
PROVIDERS: PCP Family Medicine
DX: K75.4 Autoimmune hepatitis (principal)
CPT/HCPCS: 36415; 80076; 82105; 82977; 85025; 85610

== ENCOUNTER → 2021-02-21 | Outpatient (CLI) | payer MEDICARE, SELFPAY ==
[2020-11-16 12:52] VITALS: BMI 21.1
== END | disposition home or self-care (01) ==
LOC: LABSPEC 14:02
PROVIDERS: PCP Family Medicine; Referring Provider Family Medicine; Visit Provider Family Medicine
DX: L02.31 Cutaneous abscess of buttock (principal)
CPT/HCPCS: 87070; 87205

== ENCOUNTER 2021-03-28 14:10 | Inpatient (IN) | payer MEDICARE, SELFPAY ==
[2021-03-28] VITALS (7 sets, daily range): BP systolic 113–126; BP diastolic 49–65; PULSE 108–124; RESP 16–25; TEMP 37–38.1; O2SAT 94–96; BMI 22.6
[2021-03-28 15:25] LABS: Absolute Lymphocyte Count 1.92 X10^3/uL (0.83-4.51); Absolute Neutrophil Count 10.5 X10^3/uL (2.0-7.7); Basophil# 0.04 X10^3/uL; Basophil% 0.3 % (0-1); Eosinophil# 0.07 X10^3/uL; Eosinophils% 0.5 % (0-5); Hematocrit 43.6 % (37-47); Hemoglobin 14.8 g/dL (12.0-15.0); Lymphocyte # 1.92 X10^3/ul (0.83-4.51); Mean Corp Hgb Conc 33.9 g/dL (32-36); Mean Corpuscular Hgb 30.7 pg (27.0-32.0); Mean Corpuscular Volume 90.5 fL (81-99); Monocyte# 1.05 X10^3/uL; Monocyte% 7.6 % (0-10); NRBC Flagged by Analyzer 0 % (0-5); Neutrophil # 10.54 X10^3/uL (2.7-7.7); Neutrophil % 76.8 % (47-70); Platelet Count 194 K/mm3 (150-450); RBC Distribution Width CV 14.6 % (11.6-14.6); RBC Distribution Width SD 47.7 fl (35.1-43.9); Red Blood Count 4.82 M/mm3 (4.2-5.4); White Blood Count 13.7 K/mm3 (4.4-11.0)
[2021-03-28 15:35] LABS: Anion Gap 14 (5-15); BUN 13 mg/dL (7-18); BUN/Creat Ratio 14.8 RATIO (10-20); Calcium,Total 8.8 mg/dL (8.5-10.1); Chloride 90 mmol/L (98-107); Creatinine, Serum 0.88 mg/dL (0.55-1.02); EST Glomerular Filtration Rate 66 mL/min (>60); Est Glom Filt Rate - Afr Amer 80 mL/min (>60); Estimated Creatinine Clearance 38.77 ml/min; Glucose 101 mg/dL (74-106); Potassium 3.9 mmol/L (3.5-5.1); Sodium Level 125 mmol/L (136-145)
--- NOTE | 2021-03-28 17:22 | CT_ITS ---
HISTORY: lower abd pain, vomiting EXAMINATION: CT Abdomen And Pelvis W/ Contrast Injection TECHNIQUE: Helically acquired images were obtained of the abdomen and pelvis following IV contrast. A radiation dose optimization technique was used for this scan. IV Contrast dosage and agent: 100mL Isovue-370 Oral contrast: None. COMPARISON: 11/10/20 FINDINGS: LOWER CHEST: Bibasilar dependent changes. Small hiatal hernia. No cardiomegaly or pericardial effusion. LIVER: Homogeneous. No focal mass. GALLBLADDER AND BILIARY TREE: Cholecystectomy. No intra- or extrahepatic biliary ductal dilation. PANCREAS: Stable fatty atrophy without focal cystic or solid mass. SPLEEN: Normal size without focal cystic or solid mass. ADRENAL GLANDS: No nodules. KIDNEYS AND URETERS: Normal renal size and position. No hydronephrosis. PERITONEUM: No ascites or free air. BOWEL: Normal appendix. No stomach or bowel distension. Sigmoid diverticulosis with segment of wall thickening and pericolonic stranding proximal sigmoid colon. LYMPH NODES: No enlarged mesenteric or retroperitoneal lymph nodes. VESSELS: Aorta is non-dilated. URINARY BLADDER: Unremarkable. REPRODUCTIVE ORGANS: No pelvic masses. Stable BTL clips. ABDOMINAL WALL: No discrete abdominal or pelvic wall hernia. BONES: No acute or aggressive abnormality. CT/Abdomen/Pelvis W IV Cont ONLY IMPRESSION: Acute sigmoid diverticulitis. No perforation or pelvic abscess. Individualized dose optimization techniques were used for this CT. at 1819 Reported and signed by: Chris Sanchez MD Electronically Signed: Chris Sanchez MD at 18:17 EDT Tel , Service support ,
--- NOTE | 2021-03-28 17:24 | ED.VIS.GI ---
HPI HPI - GI History of Present Illness Chief Complaint: Abd Pain Informant: patient and family Abdominal Pain/Flank Pain Onset: Days Context: Gradual Onset Timing: Continuous Quality: Aching Location: - (periumbilical, now more in RLQ) Current Severity: Severe Maximum Severity: Severe Worsened by: Car ride Relieved by: Nothing Nausea/Vomiting/Emesis GI Symptom: Positive for Nausea and Vomiting Onset: Days (2) Quality: Positive for Nonbilious; Negative for Blood streaks, Coffee ground and Hematemesis Diarrhea/Melena/Hematochezia GI Symptom: Positive for Diarrhea; Negative for Melena and Hematochezia Stool Quality: Positive for Loose Severity: Mild Associated Symptoms Associated Symptoms: Positive for - ( otherwiseDecreased urine output but urinating okay otherwise); Negative for Dysuria, Frequency, Hematuria and Urgency Narrative Narrative: Patient presenting with gradual onset abdominal discomfort, followed by vomiting and low-grade fevers that became as high as 101.5 at home. Pain now seems it is more in the right lower quadrant. She is very malaise, trying to drink fluids and using Zofran ODT's at home to manage hydration. She was able to to drink about 18 ounces yesterday. She had a prior cholecystectomy but no other organs removed. She also had a colonoscopy in the past that showed diverticulosis, and she had an area that was bleeding, they sent her to [facility] to try to have a cauterized and an iatrogenic small perforation of the colon ensued, this was treated nonsurgically and she recovered. This was not this year. She has not had prior appendectomy. She states this pain feels different than the diverticulitis she has had in the past. She has not had any contact with anyone with Covid that she knows of. She was not vaccinated. She denies any cough shortness of breath myalgias loss of taste or smell. 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 Tachycardia Home Medications bimatoprost 1 drp EACH EYE QHS 06/23/17 [History Last Taken 11/14/20] brimonidine 1 drp EACH EYE BID 06/23/17 [History Last Taken 11/15/20] budesonide 3 mg PO DAILY 06/23/17 [History Last Taken 3 Days Ago ~11/12/20] hydroxychloroquine 200 mg PO DAILYCM 06/23/17 [History Last Taken 3 Days Ago ~11/12/20] levothyroxine 75 mcg PO DAILY 06/23/17 [History Last Taken 11/15/20] timolol maleate 1 drp EACH EYE DAILY 06/23/17 [History Last Taken 11/15/20] metoprolol succinate 50 mg PO BID 06/04/19 [History Last Taken 11/15/20] potassium chloride 10 meq PO DAILY 06/04/19 [History Last Taken 3 Days Ago ~11/12/20] acidophilus-pectin, citrus 2 tab PO DAILY PRN 07/30/19 [History Last Taken 3 Days Ago ~11/12/20] cholecalciferol (vitamin D3) 2,000 unit PO DAILY 07/30/19 [History Last Taken 07/29/19] hydrocortisone 5 mg PO DAILY 07/31/19 [History Last Taken 3 Days Ago ~11/12/20] food supplemt, lactose-reduced 120 ml PO DAILY 10/22/20 [History Last Taken Unknown] ondansetron 4 mg PO Q8H PRN PRN #10 tablet 10/22/20 [Rx Last Taken Unknown] Saccharomyces boulardii [Florastor] 250 mg PO BID 11/15/20 [History Last Taken 3 Days Ago ~11/12/20] calcium citrate 200 mg PO BID 11/15/20 [History Last Taken Unknown] promethazine 25 mg PO TID PRN PRN 11/15/20 [History Last Taken Unknown] aaivjl-ukjwzvgn-mioxhcy [Creon] 1 cap PO TIDCM #90 cap 11/18/20 [Rx Last Taken Unknown] Allergy/AdvReac Type Severity Reaction Status Date / Time Penicillins [PCN] Allergy Hives Verified 10/22/20 16:19 azathioprine [From Imuran] AdvReac Vomiting Verified 10/22/20 16:19 griseofulvin AdvReac NEEDS Verified 10/22/20 16:19 [From Priti-PEG FOLLOW-UP (ultramicrosize)] PEPCID AdvReac Mild PT UNSURE Uncoded 10/22/20 16:19 OF REACTION Family History (Updated 11/15/20 @ 16:38 by Allie Fried) Father Heart disease Pacemaker Mother Heart disease Surgical History H/O cataract extraction h/o mass removed from hip H/O tubal ligation Hx of cholecystectomy Social History Smoking Status: Never smoker ROS ROS ED Constitutional Constitutional ED: Reports fever(s) and malaise; Denies chills Eyes Eyes: Denies change in vision or diplopia ENT ENT ED: Denies rhinorrhea or sore throat Cardiovascular Cardiovascular: Denies chest pain or palpitations Respiratory/Chest Respiratory/Chest: Denies cough or dyspnea Gastrointestinal Gastrointestinal: Reports as per HPI, abdominal pain, diarrhea, nausea and vomiting Genitourinary Genitourinary ED: Denies dysuria or hematuria Musculoskeletal Musculoskeletal: Denies back pain or neck pain Integumentary Denies abscess or rash Neurologic Neurologic: Denies headache(s), paresthesias or weakness Psychiatric Psychiatric: Denies anxiety or suicidal thoughts EXAM Physical Exam Const Vital Signs: 03/28/21 14:11 03/28/21 17:05 03/28/21 17:06 Temperature 99.4 F H 100.5 F H Temperature Source Temporal Oral Pulse Rate 110 H 124 H 124 H Respiratory Rate 18 16 16 Blood Pressure 113/50 L 115/65 115/65 Blood Pressure Mean 71 81 81 Pulse Ox 96 94 94 Oxygen Delivery Method Room Air Room Air Room Air 03/28/21 18:00 Temperature 99.1 F Temperature Source Oral Pulse Rate 114 H Respiratory Rate 20 H Blood Pressure 126/49 H Blood Pressure Mean 74 Pulse Ox 95 Oxygen Delivery Method Room Air Positive well nourished and well developed Constitutional Narrative: Ill-appearing, alert and conversive in full sentences General Appearance ED: well developed and NAD HEENT Reports moist mucous membranes normocephalic and atraumatic Eyes PERRL and EOMs intact bilaterally Neck full ROM and supple Resp normal respiratory effort and clear to auscultation bilaterally Cardio regular rate, regular rhythm and no murmurs Rate: tachycardic GI non-distended GI Narrative: Diffusely mildly tender but worst in the left lower quadrant. No guarding or rebound tenderness. No right lower quadrant tenderness. Auscultation: hypoactive bowel sounds Palpation: soft Back/Spine no CVA tenderness General Back: other FROM Extremity normal to inspection General Extremety ED: Negative for edema, pulses abnormal or tenderness General Extremity: Negative for edema or pulses abnormal Neuro oriented x3, CN's II-XII intact bilaterally and no sensory deficits noted Sensorium / Orientation: awake and alert Motor Exam: strength 5/5 throughout Skin no rashes or lesions noted and no wounds MDM MDM MDM Narrative Medical decision making narrative: Work-up consistent with acute diverticulitis, no perforation or abscess. Patient meets criteria for sepsis and does not appear well although she is clinically and hemodynamically stable I think it would be awan to admit her with IV antibiotics and further treatment and evaluation. IV Cipro and Flagyl started along with symptomatic treatment and fluids. Preadmission Covid testing is negative. Lab Data Attestation: I reviewed the patient's lab results. Labs: Laboratory Results - last 24 hr 03/28/21 03/28/21 03/28/21 14:21 14:21 18:55 WBC 13.7 H RBC 4.82 Hgb 14.8 Hct 43.6 MCV 90.5 MCH 30.7 MCHC 33.9 RDW Std Deviation 47.7 H RDW Coeff of Samreen 14.6 Plt Count 194 MPV 10.0 Immature Gran % (Auto) 0.800 Neut % (Auto) 76.8 H Lymph % (Auto) 14.0 L [place] % (Auto) 7.6 Eos % (Auto) 0.5 Baso % (Auto) 0.3 Absolute Neuts (auto) 10.5 H Absolute Lymphs (auto) 1.92 Nucleated RBC % 0 Sodium 125 L Potassium 3.9 Chloride 90 L Carbon Dioxide 21.0 Anion Gap 14 BUN 13 Creatinine 0.88 Estim Creat Clear Calc 38.77 Est GFR (MDRD) Af Amer 80 Est GFR (MDRD) Non-Af 66 BUN/Creatinine Ratio 14.8 Glucose 101 Calcium 8.8 Urine Color Yellow Urine Clarity Clear Urine pH 5.0 Ur Specific [place] 1.010 Urine Protein 15 H Urine Glucose (UA) Normal Urine Ketones 150 A* Urine Occult Blood 10 H Urine Nitrite Negative Urine Bilirubin Negative Urine Urobilinogen Normal Ur Leukocyte Esterase Negative Urine RBC 0 SEEN Urine WBC 0 SEEN Ur Squamous Epith Cells 0 SEEN Urine Bacteria 0 SEEN Urine Mucus 0 SEEN Radiography Diagnostic Testing: Radiology Impression Abdomen/Pelvis CT 03/28/21 17:22 IMPRESSION: Acute sigmoid diverticulitis. No perforation or pelvic abscess. Individualized dose optimization techniques were used for this CT. at 1819 Reported and signed by: Chris Sanchez MD Electronically Signed: Chris Sanchez MD at 18:17 EDT Tel , Service support , Discharge Plan Dx/Rx/DC Orders Clinical Impression: Acute hyponatremia, Acute diverticulitis, Sepsis Disposition Disposition: Acute Care [facility]
[2021-03-28] MEDS: Ondansetron 4 MG/2 ML Vial IV ×2 (17:32→22:41)
[2021-03-28] MEDS: Morphine 2 MG/ML Syringe IV (17:32)
[2021-03-28] MEDS: 0.9% Normal Saline 1,000 ML 150 ML IV (17:35)
[2021-03-28 19:01] LABS: Bacteria 0 SEEN /hpf (None Seen); Mucous, Urine 0 SEEN /hpf (<or=2+); Red Blood Cells-Urine 0 SEEN /hpf (0-5); Squamous Epithelial Cells - UA 0 SEEN /hpf (5-10); White Blood Cells 0 SEEN /hpf (0-5)
[2021-03-28 19:11] LABS: Color, Urine Yellow (Yellow); Glucose, Dipstick Normal (Normal); Leukocyte Esterase-Dipstick Negative /ul (Negative); Nitrite-Dipstick Negative (Negative); Occult Blood-Urine 10 /ul (Negative); Protein-Dipstick 15 mg/dl (Negative); Urine Bilirubin Dipstick Negative (Negative); Urine Clarity Clear (Clear); Urine Urobilinogen Normal (Normal)
[2021-03-28 19:26] LABS: Ketone-Dipstick 150 mg/dl (Negative)
[2021-03-28] MEDS: Ciprofloxacin 400 MG/200 ML BAG 200 MG IV (19:49)
--- NOTE | 2021-03-28 19:54 | ED.RN ---
HOSPITALIST ORDERED BLOOD CULTURES AFTER LIZETTERO ALREADY RUNNING. STOPPED AT 1950
--- NOTE | 2021-03-28 19:58 | HP.PCM.HOS_ITS ---
HPI - General General Date of Admission: 03/28/21 Date of Service: 03/28/21 Chief Complaint: Abdominal pain HPI Narrative LIANA VALENCIA, is a 81 F with a significant history of hypothyroidism who presents to the emergency department with excruciating right lower quadrant abdominal pain that started 3 days before presentation. She described the pain as cramping. She rated pain as 10 out of 10. Her pain is progressively worsening. Her pain radiates to her entire lower abdomen. Associated with her symptoms is nausea, vomiting, anorexia and diarrhea. She took some Tylenol that helped with her pain. After having a bowel movement and urinating her abdominal pain increased. 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 Tachycardia Home Medications bimatoprost 1 drp EACH EYE QHS 06/23/17 [History Last Taken 03/24/21] brimonidine 1 drp EACH EYE BID 06/23/17 [History Last Taken 03/28/21] budesonide 3 mg PO DAILY 06/23/17 [History Last Taken 03/27/21] hydroxychloroquine 200 mg PO DAILYCM 06/23/17 [History Last Taken 03/25/21] levothyroxine 75 mcg PO DAILY 06/23/17 [History Last Taken 03/28/21] timolol maleate 1 drp EACH EYE DAILY 06/23/17 [History Last Taken 03/28/21] metoprolol succinate 50 mg PO BID 06/04/19 [History Last Taken 03/27/21] potassium chloride 10 meq PO DAILY 06/04/19 [History Last Taken 03/24/21] cholecalciferol (vitamin D3) 2,000 unit PO DAILY 07/30/19 [History Last Taken 03/25/21] hydrocortisone 5 mg PO DAILY 07/31/19 [History Last Taken 3 Days Ago ~11/12/20] food supplemt, lactose-reduced 120 ml PO DAILY 10/22/20 [History Last Taken Unknown] ondansetron 4 mg PO Q8H PRN PRN #10 tablet 10/22/20 [Rx Last Taken 03/28/21] Saccharomyces boulardii [Florastor] 250 mg PO BID 11/15/20 [History Last Taken 03/25/21] oslimd-ogfwjxbx-gjwhswg [Creon] 1 cap PO TIDCM #90 cap 11/18/20 [Rx Last Taken 03/25/21] aflibercept [Eylea] 2 mg INTRAVITREAL .[id number] 03/28/21 [History Last Taken 03/17/21] artificial tears solution 1 drp OPHTHALMIC (EYE) DAILY PRN 03/28/21 [History Last Taken Unknown] Allergy/AdvReac Type Severity Reaction Status Date / Time Penicillins [PCN] Allergy Hives Verified 10/22/20 16:19 azathioprine [From Imuran] AdvReac Vomiting Verified 10/22/20 16:19 griseofulvin AdvReac NEEDS Verified 10/22/20 16:19 [From Priti-PEG FOLLOW-UP (ultramicrosize)] PEPCID AdvReac Mild PT UNSURE Uncoded 10/22/20 16:19 OF REACTION Family History Father Heart disease Pacemaker Mother Heart disease Surgical History H/O cataract extraction h/o mass removed from hip H/O tubal ligation Hx of cholecystectomy Social History Smoking Status: Never smoker ROS ROS Narrative Constitutional: Reports fatigue and anorexia. Denies change in weight Eyes: Denies blurry vision, change in eye color, change in vision, discharge from eye(s), double vision, erythema, eye pain, loss of vision or other HEENT: Denies abnormal hearing, dysphagia, ear pain, epistaxis, headache(s), hearing loss, nasal congestion, nasal discharge, post nasal drip, sinus pr essure, sore throat or other Cardiovascular: Denies chest pain or palpitations. Denies dyspnea on exertion, orthopnea and paroxysmal nocturnal dyspnea Respiratory/Chest: Denies cough, excessive phlegm production, shortness of breath with exertion and wheezing Gastrointestinal: Reports abdominal pain, nausea, vomiting and diarrhea. Denies coffee ground emesis, constipation, dyspepsia, hematemesis, hematochezia, melena, or other Genitourinary: Denies burning urination, difficulty urinating, dysuria, hematuria, nocturia, urinary frequency, urinary hesitancy, urinary incontinence, urinary urgency or other Musculoskeletal: Denies arthralgias, back pain, joint pain, joint stiffness, joint swelling, myalgias, neck pain or other Neurologic: Denies abnormal gait, abnormal speech, confusion, disequilibrium, dizziness, focal weakness, headache(s), numbness, paresthesias, seizure-like activity, seizures, syncope, tingling, tremor(s) or other Psychiatric: Denies anxiety, depression, homicidal ideation, suicidal ideation or other Endocrinology: Denies change in body appearance, cold intolerance, excessive sweating, heat intolerance, polydipsia, polyuria or other Hematologic/Lymphatic: Denies anemia, easy bleeding, easy bruising, lymphadenopathy or other Integumentary: Denies rashes Allergic/Immunologic: Denies rhinitis, hives, eczema, asthma or other Vital Signs Vital Signs Vital Signs: 03/28/21 14:11 03/28/21 17:05 03/28/21 17:06 Temperature 99.4 F H 100.5 F H Temperature Source Temporal Oral Pulse Rate 110 H 124 H 124 H Respiratory Rate 18 16 16 Blood Pressure 113/50 L 115/65 115/65 Blood Pressure Mean 71 81 81 Pulse Ox 96 94 94 Oxygen Delivery Method Room Air Room Air Room Air 03/28/21 18:00 Temperature 99.1 F Temperature Source Oral Pulse Rate 114 H Respiratory Rate 20 H Blood Pressure 126/49 H Blood Pressure Mean 74 Pulse Ox 95 Oxygen Delivery Method Room Air Weight Weight: 48.988 kg Body Mass Index (BMI) 22.6 Physical Exam Narrative Physical exam: General: Well-nourished, well-developed. Head: Normocephalic, atraumatic, no tenderness Eyes: PERRLA, EOMI ENT, no trauma, moist mucous membranes, no rhinorrhea Neck: Nontender, full range of motion, no spinal tenderness, deformities, step- off CVS: Regular rate and rhythm. S1-S2 present. Murmur present. No gallop or rub. Respiratory : Mild Rales. Chest wall nontender, no wheezing Abdomen: Soft, nondistended, normal bowel sounds, no masses. Abdomen is tender. : Deferred Back: Nontender, no CVA tenderness, no midline spinal tenderness, deformities, step-offs Extremities: Nontender full range of motion, no trauma Skin: Normal color, no trauma, abrasions Neuro: Alert, oriented, cranial nerves II through XII grossly intact. Psychiatry: Normal mood. Normal affect. Not depressed. Not anxious. Results Lab / Micro Data Result Diagrams: 03/28/21 14:21 03/28/21 14:21 Labs: Laboratory Results - last 24 hr 03/28/21 14:21: WBC 13.7 H, RBC 4.82, Hgb 14.8, Hct 43.6, MCV 90.5, MCH 30.7, MCHC 33.9, RDW Std Deviation 47.7 H, RDW Coeff of Samreen 14.6, Plt Count 194, MPV 10.0, Immature Gran % (Auto) 0.800, Neut % (Auto) 76.8 H, Lymph % (Auto) 14.0 L, [place] % (Auto) 7.6, Eos % (Auto) 0.5, Baso % (Auto) 0.3, Absolute Neuts (auto) 10.5 H, Absolute Lymphs (auto) 1.92, Nucleated RBC % 0 03/28/21 14:21: Sodium 125 L, Potassium 3.9, Chloride 90 L, Carbon Dioxide 21.0, Anion Gap 14, BUN 13, Creatinine 0.88, Estim Creat Clear Calc 38.77, Est GFR (MDRD) Af Amer 80, Est GFR (MDRD) Non-Af 66, BUN/Creatinine Ratio 14.8, Glucose 101, Calcium 8.8 03/28/21 18:55: Urine Color Yellow, Urine Clarity Clear, Urine pH 5.0, Ur Specific [place] 1.010, Urine Protein 15 H, Urine Glucose (UA) Normal, Urine Ketones 150 A*, Urine Occult Blood 10 H, Urine Nitrite Negative, Urine Bilirubin Negative, Urine Urobilinogen Normal, Ur Leukocyte Esterase Negative, Urine RBC 0 SEEN, Urine WBC 0 SEEN, Ur Squamous Epith Cells 0 SEEN, Urine Bacteria 0 SEEN, Urine Mucus 0 SEEN Micro: Microbiology 03/28/21 17:35 Nasal Secretion SARS-CoV-2 Antigen (Rapid) - Final Radiology Impression Abdomen/Pelvis CT 03/28/21 17:22 IMPRESSION: Acute sigmoid diverticulitis. No perforation or pelvic abscess. Individualized dose optimization techniques were used for this CT. at 1819 Reported and signed by: Chris Sanchez MD Electronically Signed: Chris Sanchez MD at 18:17 EDT Tel , Service support , Assessment & Plan Assessment/Plan (1) Acute diverticulitis: (2) Acute hyponatremia: PLAN: Acute diverticulitis SIRS criteria: White count of 13.7; heart rate of more than 90 with highest of 124 qSOFA: 0 Discussed with emergent department doctor to get lactic acid. Her creatinine is stable Impression of abdomen/pelvis CT by radiology: Acute sigmoid diverticulitis. No perforation or pelvic abscess. Actual abdomen and pelvis CT was independently interpreted and agree radiologist interpretation Ciprofloxacin IV and Flagyl IV was started emergency department and continued. Trend CBC and BMP. Morphine IV as needed for pain. Tylenol as needed for pain and fever. Antiemetics with IV Zofran. Supportive treatment with IV fluids. Stool cultures ordered. Blood culture was obtained emergency department, follow. Trend CBC. Acute hyponatremia Her sodium presentation was 125. Review of old records show that this is the lowest sodium so far. Started on normal saline with at 150ml/hr [facility]. Will de-escalate to normal saline 75 mL per. BMP in a.m. Hypertension Blood pressure is stable for her age. Metoprolol continued. Trend blood pressure and adjust blood pressure medications. DVT prophylaxis: Subcutaneous Lovenox ordered. COVID-19 status: Unvaccinated. Charges/Coding Visit Charges Inpatient E&M: 69293 Init Hosp L3
[2021-03-28 20:39] LABS: Lactic Acid 0.8 mmol/L (0.4-1.9)
--- NOTE | 2021-03-28 22:30 | PCS.PANDOC ---
PANDEMIC DOCUMENTATION INITIATED: Date: 02/28/2021 Time: 190
[2021-03-28] MEDS: Metoprolol(XL)Succ 50 MG Tablet PO (22:36)
[2021-03-28] MEDS: 0.9% Normal Saline 1,000 ML 75 ML IV (22:37)
[2021-03-28] MEDS: 0.9% Saline Lock 10 ML Syringe IV (22:45)
[2021-03-28] MEDS: Latanoprost 0.005% 1 Bottle 1 DRP EACH EYE (22:46)
[2021-03-28] MEDS: BRIMONIDINE 0.15% 5 ML Bottle 1 DRP EACH EYE (22:47)
[2021-03-28] MEDS: metroNIDAZOLE 500 MG/100 ML BAG 100 MG IV (23:10)
[2021-03-29] VITALS (8 sets, daily range): BP systolic 101–121; BP diastolic 47–60; PULSE 76–102; RESP 16–18; TEMP 36.3–37.4; O2SAT 94–97; BMI 21.0
[2021-03-29] MEDS: Morphine 2 MG/ML Syringe 1 MG IV (03:23)
[2021-03-29] MEDS: metroNIDAZOLE 100 ML 100 MG IV ×3 (05:18→22:35)
[2021-03-29 06:04] LABS: Absolute Lymphocyte Count 1.82 X10^3/uL (0.83-4.51); Absolute Neutrophil Count 8.8 X10^3/uL (2.0-7.7); Basophil# 0.03 X10^3/uL; Basophil% 0.3 % (0-1); Eosinophil# 0.09 X10^3/uL; Eosinophils% 0.8 % (0-5); Hematocrit 37.8 % (37-47); Hemoglobin 12.5 g/dL (12.0-15.0); Lymphocyte # 1.82 X10^3/ul (0.83-4.51); Lymphocyte % 15.2 % (19-41); Mean Corp Hgb Conc 33.1 g/dL (32-36); Mean Corpuscular Hgb 30.9 pg (27.0-32.0); Mean Corpuscular Volume 93.3 fL (81-99); Monocyte# 1.07 X10^3/uL; Monocyte% 8.9 % (0-10); NRBC Flagged by Analyzer 0 % (0-5); Neutrophil # 8.83 X10^3/uL (2.7-7.7); Neutrophil % 73.6 % (47-70); Platelet Count 179 K/mm3 (150-450); RBC Distribution Width CV 14.6 % (11.6-14.6); RBC Distribution Width SD 50.4 fl (35.1-43.9); Red Blood Count 4.05 M/mm3 (4.2-5.4)
[2021-03-29 06:27] LABS: Anion Gap 12 (5-15); BUN 11 mg/dL (7-18); BUN/Creat Ratio 12.9 RATIO (10-20); Calcium,Total 7.8 mg/dL (8.5-10.1); Chloride 97 mmol/L (98-107); Creatinine, Serum 0.85 mg/dL (0.55-1.02); EST Glomerular Filtration Rate 68 mL/min (>60); Est Glom Filt Rate - Afr Amer 82 mL/min (>60); Estimated Creatinine Clearance 37.45 ml/min; Glucose 91 mg/dL (74-106); Potassium 3.7 mmol/L (3.5-5.1); Sodium Level 128 mmol/L (136-145)
[2021-03-29] MEDS: Ciprofloxacin 400 MG/200 ML BAG 200 MG IV ×2 (06:42→20:45)
--- NOTE | 2021-03-29 07:39 | PCM.PN.HOSP ---
Objective Data Objective Data Vital Signs: Vital Signs Temp Pulse Resp BP Pulse Ox 99.4 F H 102 H 18 113/47 L 94 03/29/21 03:00 03/29/21 03:00 03/29/21 03:00 03/29/21 03:00 03/29/21 03:00 Oxygen Delivery Method Room Air Weight: 100 lb 12.02 oz Body Mass Index (BMI) 2.5 Intake & Output: Intake and Output for Last 24 Hours 03/27/21 03/28/21 03/29/21 23:59 23:59 23:59 Intake Total 1134.59 / 1134.59 615.00 / 615.00 Balance 1134.59 / 1134.59 615.00 / 615.00 Lab / Micro Data Result Diagrams: 03/29/21 05:24 03/29/21 05:24 Labs: Laboratory Results - last 24 hr 03/28/21 14:21: WBC 13.7 H, RBC 4.82, Hgb 14.8, Hct 43.6, MCV 90.5, MCH 30.7, MCHC 33.9, RDW Std Deviation 47.7 H, RDW Coeff of Samreen 14.6, Plt Count 194, MPV 10.0, Immature Gran % (Auto) 0.800, Neut % (Auto) 76.8 H, Lymph % (Auto) 14.0 L, [place] % (Auto) 7.6, Eos % (Auto) 0.5, Baso % (Auto) 0.3, Absolute Neuts (auto) 10.5 H, Absolute Lymphs (auto) 1.92, Nucleated RBC % 0 03/28/21 14:21: Sodium 125 L, Potassium 3.9, Chloride 90 L, Carbon Dioxide 21.0, Anion Gap 14, BUN 13, Creatinine 0.88, Estim Creat Clear Calc 38.77, Est GFR (MDRD) Af Amer 80, Est GFR (MDRD) Non-Af 66, BUN/Creatinine Ratio 14.8, Glucose 101, Calcium 8.8 03/28/21 18:55: Urine Color Yellow, Urine Clarity Clear, Urine pH 5.0, Ur Specific [place] 1.010, Urine Protein 15 H, Urine Glucose (UA) Normal, Urine Ketones 150 A*, Urine Occult Blood 10 H, Urine Nitrite Negative, Urine Bilirubin Negative, Urine Urobilinogen Normal, Ur Leukocyte Esterase Negative, Urine RBC 0 SEEN, Urine WBC 0 SEEN, Ur Squamous Epith Cells 0 SEEN, Urine Bacteria 0 SEEN, Urine Mucus 0 SEEN 03/28/21 20:01: Lactic Acid 0.8 03/29/21 05:24: WBC 12.0 H, RBC 4.05 L, Hgb 12.5, Hct 37.8, MCV 93.3, MCH 30.9, MCHC 33.1, RDW Std Deviation 50.4 H, RDW Coeff of Samreen 14.6, Plt Count 179, MPV 10.0, Immature Gran % (Auto) 1.200 H, Neut % (Auto) 73.6 H, Lymph % (Auto) 15.2 L, [place] % (Auto) 8.9, Eos % (Auto) 0.8, Baso % (Auto) 0.3, Absolute Neuts (auto) 8.8 H, Absolute Lymphs (auto) 1.82, Nucleated RBC % 0 03/29/21 05:24: Sodium 128 L, Potassium 3.7, Chloride 97 L, Carbon Dioxide 19.0 L, Anion Gap 12, BUN 11, Creatinine 0.85, Estim Creat Clear Calc 37.45, Est GFR (MDRD) Af Amer 82, Est GFR (MDRD) Non-Af 68, BUN/Creatinine Ratio 12.9, Glucose 91, Calcium 7.8 L Micro: Microbiology 03/28/21 17:35 Nasal Secretion SARS-CoV-2 Antigen (Rapid) - Final Radiography Diagnostic Testing: Radiology Impression Abdomen/Pelvis CT 03/28/21 17:22 IMPRESSION: Acute sigmoid diverticulitis. No perforation or pelvic abscess. Individualized dose optimization techniques were used for this CT. at 1819 Reported and signed by: Chris Sanchez MD Electronically Signed: Chris Sanchez MD at 18:17 EDT Tel , Service support , Assessment & Plan Assessment/Plan (1) Rectosigmoid diverticulitis: PLAN: Acute diverticulitis SIRS criteria: White count of 13.7; heart rate of more than 90 with highest of 124 qSOFA: 0 Discussed with emergent department doctor to get lactic acid. Her creatinine is stable Impression of abdomen/pelvis CT by radiology: Acute sigmoid diverticulitis. No perforation or pelvic abscess. Actual abdomen and pelvis CT was independently interpreted and agree radiologist interpretation Ciprofloxacin IV and Flagyl IV was started emergency department and continued. Trend CBC and BMP. Morphine IV as needed for pain. Tylenol as needed for pain and fever. Antiemetics with IV Zofran. Supportive treatment with IV fluids. Stool cultures ordered. Blood culture was obtained emergency department, follow. Trend CBC. Acute hyponatremia Her sodium presentation was 125. Review of old records show that this is the lowest sodium so far. Started on normal saline with at 150ml/hr at the emergency department. Will de-escalate to normal saline 75 mL per. BMP in a.m. Hypertension Blood pressure is stable for her age. Metoprolol continued. Trend blood pressure and adjust blood pressure medications. DVT prophylaxis: Subcutaneous Lovenox ordered. COVID-19 status: Unvaccinated.
[2021-03-29] MEDS: Hydroxychloroquine 200 MG Tablet PO (08:07)
[2021-03-29] MEDS: Budesonide 3 MG CAPSULE.EC PO (09:55)
[2021-03-29] MEDS: Enoxaparin 40 MG/0.4 ML Syringe SC (09:55)
[2021-03-29] MEDS: Potassium Chloride Oral Tablet 10 MEQ PO (09:55)
[2021-03-29] MEDS: Hydrocortisone 10 MG Tablet 5 MG PO (09:55)
[2021-03-29] MEDS: Cholecalciferol (VIT D3) 25 MCG TABLET (1,000 UNITS) 50 MCG PO (09:55)
[2021-03-29] MEDS: Metoprolol(XL)Succ 50 MG Tablet PO ×2 (09:56→20:45)
[2021-03-29] MEDS: BRIMONIDINE 0.15% 5 ML Bottle 1 DRP EACH EYE ×2 (10:09→20:46)
[2021-03-29] MEDS: Timolol 0.5% 5ML OPTH.BTL 1 DRP EACH EYE (10:09)
--- NOTE | 2021-03-29 10:50 | CASEMGMT ---
RN BOOKER Face to Face with patient for initial transition planning/care coordination assessment. RN CM introduced self and role at [facility]. Patient lying in bed, alert and oriented. Patient willing to participate in assessment and is able to answer all questions appropriately. Care providers, pharmacy, and demographics verified. Patient wishes to discharge home, denies need for home health at this time. Patient states she has no further needs or concerns at this time. CM to follow for discharge planning needs that may arise. PCP: Ashvin Cardenas Specialists: RA Chad; Farzad, sign board erector; Dina, rotor casting machine operator; [facility]; Natalee Arreaga Preferred Pharmacy: [facility] Insurance: [facility] Prescription Benefit: yes Living Will/HPOA: yes, Rm Espinoza LNOK: , daughter Living Arrangements: Patient lives with in a single story home with ramp to enter the home. Patient states she is independent at home for self care, daughter help with household and Transportation: daughter DME/HHC: patient states she has cane, walker, and shower chair at home. Patient denies HHC for herself but the are currently seeing her . Disposition Plan: Patient to discharge home with family support and follow-up plans in place. Melissa WATKINS, RN, CM
--- NOTE | 2021-03-29 11:50 | PN.HOSP_ITS ---
Documented by User: No Santos DIRECTOR DIGITAL STRATEGY, DIRECTOR DIGITAL STRATEGY-C 03/29/21 12:11 Subjective Subjective Patient seen and examined. Reports low-grade fever, nausea. Denies further diarrhea since admission. Abdominal pain improved. Objective Data Objective Data Vital Signs: Vital Signs Temp Pulse Resp BP Pulse Ox 98.9 F 82 16 104/56 L 95 03/29/21 11:42 03/29/21 11:42 03/29/21 11:42 03/29/21 11:42 03/29/21 11:42 Oxygen Delivery Method Room Air Weight: 100 lb 12.02 oz Body Mass Index (BMI) 21.0 Intake & Output: Intake and Output for Last 24 Hours 03/27/21 03/28/21 03/29/21 23:59 23:59 23:59 Intake Total 1134.59 / 1134.59 815.00 / 815.00 Balance 1134.59 / 1134.59 815.00 / 815.00 Lab / Micro Data Result Diagrams: 03/29/21 05:24 03/29/21 05:24 Labs: Laboratory Results - last 24 hr 03/28/21 14:21: WBC 13.7 H, RBC 4.82, Hgb 14.8, Hct 43.6, MCV 90.5, MCH 30.7, MCHC 33.9, RDW Std Deviation 47.7 H, RDW Coeff of Samreen 14.6, Plt Count 194, MPV 10.0, Immature Gran % (Auto) 0.800, Neut % (Auto) 76.8 H, Lymph % (Auto) 14.0 L, [place] % (Auto) 7.6, Eos % (Auto) 0.5, Baso % (Auto) 0.3, Absolute Neuts (auto) 10.5 H, Absolute Lymphs (auto) 1.92, Nucleated RBC % 0 03/28/21 14:21: Sodium 125 L, Potassium 3.9, Chloride 90 L, Carbon Dioxide 21.0, Anion Gap 14, BUN 13, Creatinine 0.88, Estim Creat Clear Calc 38.77, Est GFR (MDRD) Af Amer 80, Est GFR (MDRD) Non-Af 66, BUN/Creatinine Ratio 14.8, Glucose 101, Calcium 8.8 03/28/21 18:55: Urine Color Yellow, Urine Clarity Clear, Urine pH 5.0, Ur Specific [place] 1.010, Urine Protein 15 H, Urine Glucose (UA) Normal, Urine Ketones 150 A*, Urine Occult Blood 10 H, Urine Nitrite Negative, Urine Bilirubin Negative, Urine Urobilinogen Normal, Ur Leukocyte Esterase Negative, Urine RBC 0 SEEN, Urine WBC 0 SEEN, Ur Squamous Epith Cells 0 SEEN, Urine Bacteria 0 SEEN, Urine Mucus 0 SEEN 03/28/21 20:01: Lactic Acid 0.8 03/29/21 05:24: WBC 12.0 H, RBC 4.05 L, Hgb 12.5, Hct 37.8, MCV 93.3, MCH 30.9, MCHC 33.1, RDW Std Deviation 50.4 H, RDW Coeff of Samreen 14.6, Plt Count 179, MPV 10.0, Immature Gran % (Auto) 1.200 H, Neut % (Auto) 73.6 H, Lymph % (Auto) 15.2 L, [place] % (Auto) 8.9, Eos % (Auto) 0.8, Baso % (Auto) 0.3, Absolute Neuts (auto) 8.8 H, Absolute Lymphs (auto) 1.82, Nucleated RBC % 0 03/29/21 05:24: Sodium 128 L, Potassium 3.7, Chloride 97 L, Carbon Dioxide 19.0 L, Anion Gap 12, BUN 11, Creatinine 0.85, Estim Creat Clear Calc 37.45, Est GFR (MDRD) Af Amer 82, Est GFR (MDRD) Non-Af 68, BUN/Creatinine Ratio 12.9, Glucose 91, Calcium 7.8 L Micro: Microbiology 03/28/21 17:35 Nasal Secretion SARS-CoV-2 Antigen (Rapid) - Final Radiography Diagnostic Testing: Radiology Impression Abdomen/Pelvis CT 03/28/21 17:22 IMPRESSION: Acute sigmoid diverticulitis. No perforation or pelvic abscess. Individualized dose optimization techniques were used for this CT. at 1811 Reported and signed by: Chris Sanchez MD Electronically Signed: Chris Sanchez MD at 18:17 EDT Tel , Service support , Physical Exam Const alert, oriented x3 and no apparent distress Orientation / Consciousness: awake, oriented to person, oriented to place and oriented to time Nutritional Appearance: cachectic HEENT normocephalic Mouth: dry mucous membranes Eyes PERRL, EOMs intact bilaterally and conjunctivae normal Neck no lymphadenopathy Resp normal respiratory effort and clear to auscultation bilaterally Cardio regular rate, regular rhythm and no murmurs Peripheral Pulses: pulses 2+ throughout GI normal to inspection, nondistended, normoactive bowel sounds and non-distended Palpation: tender Extremity normal to inspection Skin no rashes or lesions noted Lesions: no lesions Rashes: no rashes Trauma: no lacerations or abrasions Neuro CN's II-XII intact bilaterally, no focal motor deficits, no sensory deficits noted and deep tendon reflexes 2+ bilaterally Psych mental status grossly normal and affect normal Assessment & Plan Assessment/Plan (1) Acute diverticulitis: PLAN: 1. Acute sigmoid diverticulitis, +SIRS criteria, qSOFA 0-On IV Ci pro and IV Flagyl. Stool studies ordered however no further stool since admission. As needed antiemetics. 2. Acute hyponatremia-suspect secondary to hypovolemia. Improving with IV fluids, trend BMP. 3. History of autoimmune hepatitis-stable. 4. Chronic pancreatitis-on Creon. 5. Hypertension-stable, continue metoprolol. 6. Hypothyroidism-continue Synthroid regimen. 7. History of lupus-on hydroxychloroquine, hydrocortisone. DVT prophylaxis-Lovenox subcu This patient was seen by VADIM Fish under the supervision of Dr. Wan. Documented by User: Dr. Maxime Wan MD 03/29/21 17:11 Subjective Subjective Patient has history of diverticulosis and diverticulitis. About 3 years ago patient had severe bleeding probably lower GI bleed and was transferred to [facility] where she had colonoscopy with hemostatic procedure. She also has recurrent diverticulitis and this is the third time as per the patient. She had mild diarrhea, loose semisolid without blood. She had a fever about 102 in home with severe abdominal pain mainly in the right lower quadrant and then became diffuse, started 3 days ago. She has recently antibiotic about 3 months ago for cellulitis. She also gave history of rheumatic fever 2 episodes in the past and has murmur. Objective Data Lab / Micro Data Result Diagrams: 03/29/21 05:24 03/29/21 05:24 Physical Exam Narrative General: Alert, Oriented x3, Cooperative HEENT: Atraumatic, PERRLA, EOMI, Normocephalic Oral: No Gingival or Mucosal Lesions/ Ulcerations Neck: Supple, No JVD, Negative Carotid Bruits Lungs: Air entry diminished in bilateral lung bases. No crepitation/rhonchi Cardiovascular: Regular rate, Regular Rhythm, Normal S1, Normal S2, pansystolic murmur cardiac apex LLSB. Abdomen: Soft, tenderness present mainly over right lower quadrant and left lower quadrant. Bowel Sounds Present, Non-Distended : No renal angle tenderness. No suprapubic tenderness. Extremities: No edema, Capillary Refill Less than 3 Seconds Skin: No rashes, No breakdown Musculoskeletal: No Tenderness to Palpation of Joints or Extremities Neurological: Cranial nerves II-XII grossly intact, DTR 2+/4 and Symmetrical, Neuro grossly intact Psych/Mental Status: Normal Affect, Appropriate. Assessment & Plan Assessment/Plan (1) Rectosigmoid diverticulitis: PLAN: This patient was seen in conjunction with DIRECTOR DIGITAL STRATEGY, No. I have independently interviewed and examined the patient and reviewed pertinent history, examination findings, laboratory and plan of management. I have reviewed the note and agree with the documented findings with the few additional points. In brief, patient is admitted for severe abdominal pain started from right lower quadrant became diffuse, nausea and diarrhea. She also antibiotic about 2 to 3 months ago. With high-grade fever, first differential is diverticulitis but C. difficile should be ruled out. Stool for C. difficile PCR ordered. On IV Cipro and Flagyl. Has history of rheumatic fever and murmur seems mitral regurgitation on auscultation. Need 2D echo as an outpatient when stable. Last echo in June 2012 shows trivial MR, trivial TR trivial AI. EF 65%. Other comorbidities including hyponatremia, chronic pancreatitis and autoimmune hepatitis as mentioned above. I talked to the patient's daughter near the bedside and explained my clinical diagnosis and course of the disease. I have discussed my assessment with DIRECTOR DIGITAL STRATEGYNo and orders have been reviewed. Charges/Coding Visit Charges Inpatient E&M: 53210 Subs Hosp L2
[2021-03-29] MEDS: Acetaminophen 650 MG/20 ML UDC PO (13:32)
[2021-03-29] MEDS: 0.9% Normal Saline 1,000 ML 75 ML IV (13:34)
--- NOTE | 2021-03-29 14:26 | CM.UR ---
[facility] palliative screening tool completed and pt does not qualify for palliative referral at this time. SStbre TURCIOS CM
[2021-03-29] MEDS: MELATONIN 3 MG TABLET PO (22:34)
[2021-03-30] MEDS: 0.9% Normal Saline 1,000 ML 75 ML IV ×2 (03:18→19:31)
[2021-03-30 03:27] VITALS: BP 122/44; PULSE 71; RESP 16; TEMP 36.2; O2SAT 96
[2021-03-30 05:15] LABS: Absolute Lymphocyte Count 0.94 X10^3/uL (0.83-4.51); Absolute Neutrophil Count 6.1 X10^3/uL (2.0-7.7); Basophil# 0.02 X10^3/uL; Basophil% 0.3 % (0-1); Eosinophil# 0.05 X10^3/uL; Eosinophils% 0.6 % (0-5); Hematocrit 33.2 % (37-47); Hemoglobin 11.1 g/dL (12.0-15.0); Lymphocyte # 0.94 X10^3/ul (0.83-4.51); Lymphocyte % 12.1 % (19-41); Mean Corp Hgb Conc 33.4 g/dL (32-36); Mean Corpuscular Hgb 31.4 pg (27.0-32.0); Mean Corpuscular Volume 94.1 fL (81-99); Mean Platelet Vol. 9.5 fl (6.2-12.0); Monocyte# 0.54 X10^3/uL; NRBC Flagged by Analyzer 0 % (0-5); Neutrophil # 6.14 X10^3/uL (2.7-7.7); Neutrophil % 79.1 % (47-70); Platelet Count 146 K/mm3 (150-450); RBC Distribution Width CV 14.6 % (11.6-14.6); RBC Distribution Width SD 50.3 fl (35.1-43.9); Red Blood Count 3.53 M/mm3 (4.2-5.4); White Blood Count 7.8 K/mm3 (4.4-11.0)
[2021-03-30 05:28] LABS: Anion Gap 5 (5-15); BUN 8 mg/dL (7-18); BUN/Creat Ratio 12.8 RATIO (10-20); Calcium,Total 7.5 mg/dL (8.5-10.1); Chloride 104 mmol/L (98-107); Creatinine, Serum 0.62 mg/dL (0.55-1.02); EST Glomerular Filtration Rate 98 mL/min (>60); Est Glom Filt Rate - Afr Amer 118 mL/min (>60); Estimated Creatinine Clearance 31.83 ml/min; Glucose 105 mg/dL (74-106); Potassium 3.8 mmol/L (3.5-5.1); Sodium Level 133 mmol/L (136-145)
[2021-03-30] MEDS: Levothyroxine 75 MCG Tablet PO (06:01)
[2021-03-30] MEDS: metroNIDAZOLE 100 ML 100 MG IV ×3 (06:01→22:52)
[2021-03-30 09:20] VITALS: BP 119/53; PULSE 73; RESP 16; TEMP 36.9; O2SAT 97
[2021-03-30] MEDS: Ciprofloxacin 400 MG/200 ML BAG 200 MG IV ×2 (09:27→21:48)
[2021-03-30] MEDS: 0.9% Saline Lock 10 ML Syringe IV (09:30)
[2021-03-30] MEDS: BRIMONIDINE 0.15% 5 ML Bottle 1 DRP EACH EYE ×2 (09:31→21:47)
[2021-03-30] MEDS: Timolol 0.5% 5ML OPTH.BTL 1 DRP EACH EYE (09:32)
[2021-03-30] MEDS: Enoxaparin 40 MG/0.4 ML Syringe SC (09:33)
[2021-03-30] MEDS: Hydrocortisone 10 MG Tablet 5 MG PO (09:33)
[2021-03-30] MEDS: Budesonide 3 MG CAPSULE.EC PO (09:33)
[2021-03-30] MEDS: Cholecalciferol (VIT D3) 25 MCG TABLET (1,000 UNITS) 50 MCG PO (09:33)
[2021-03-30] MEDS: Potassium Chloride Oral Tablet 10 MEQ PO (09:34)
[2021-03-30] MEDS: Hydroxychloroquine 200 MG Tablet PO (09:34)
[2021-03-30 09:47] VITALS: BP 119/53
--- NOTE | 2021-03-30 13:44 | PCM.PN.HOSP ---
Documented by User: No Santos NP, HYBRID DERIVATIVES TRADER-C 03/30/21 13:50 Subjective Subjective Patient seen and examined. Patient reports continued abdominal tenderness however significantly improved. Denies further fever, chills. States she does not have an appetite for solid foods however denies nausea, vomiting. Objective Data Objective Data Vital Signs: Vital Signs Temp Pulse Resp BP Pulse Ox 98.4 F 73 16 119/53 L 97 03/30/21 09:20 03/30/21 09:20 03/30/21 09:20 03/30/21 09:47 03/30/21 09:20 Oxygen Delivery Method Room Air Weight: 100 lb 12.02 oz Body Mass Index (BMI) 21.0 Intake & Output: Intake and Output for Last 24 Hours 03/28/21 03/29/21 03/30/21 23:59 23:59 23:59 Intake Total 1134.59 / 1134.59 2835.00 / 2835.00 1031.25 / 1031.25 Balance 1134.59 / 1134.59 2835.00 / 2835.00 1031.25 / 1031.25 Medical Nutrition Assessment Dietitian: Malnutrition Criteria Met Start: 03/29/21 13:52 Freq: Status: Active Protocol: Document 03/29/21 13:52 RMA (Rec: 03/29/21 13:52 RMA [id number]) Nutrition Malnutrition Evidence of Malnutrition Exists Yes Malnutrition (severe): Chronic Evidenced By Suboptimal Energy Intake ( Severe),Weight Loss (Severe) Clinical Problem Chronic Disease or Condition Related Malnutrition Etiology Severe protein-calorie malnutrition in the context of chronic disease related to altered GI function and decreased appetite Signs/Symptoms as evidenced by 7% wt loss x past 2-3 months and PO meeting less than 50% estimated nutrition needs. Status Active Problem Recommendation Dietitian Recommendations/Changes Continue clear liquid diet and advance diet as tolerated to Regular/Fiber-restricted when ready for solid foods. Will add 240ml fisher ensure clear TID w/ meals for additional 720 kcal and 24 gm pro/day. Lab / Micro Data Result Diagrams: 03/30/21 05:04 03/30/21 05:04 Labs: Laboratory Results - last 24 hr 03/30/21 05:04: WBC 7.8, RBC 3.53 L, Hgb 11.1 L, Hct 33.2 L, MCV 94.1, MCH 31.4, MCHC 33.4, RDW Std Deviation 50.3 H, RDW Coeff of Samreen 14.6, Plt Count 146 L, MPV 9.5, Immature Gran % (Auto) 0.900, Neut % (Auto) 79.1 H, Lymph % (Auto) 12.1 L, [place] % (Auto) 7.0, Eos % (Auto) 0.6, Baso % (Auto) 0.3, Absolute Neuts (auto) 6.1, Absolute Lymphs (auto) 0.94, Nucleated RBC % 0 03/30/21 05:04: Sodium 133 L, Potassium 3.8, Chloride 104, Carbon Dioxide 24.0, Anion Gap 5, BUN 8, Creatinine 0.62, Estim Creat Clear Calc 31.83, Est GFR (MDRD) Af Amer 118, Est GFR (MDRD) Non-Af 98, BUN/Creatinine Ratio 12.8, Glucose 105, Calcium 7.5 L Micro: Microbiology 03/30/21 03:25 Stool C. difficile DNA Amplification - Final 03/30/21 03:25 Stool Enteric Bacteriology - Final 03/28/21 17:35 Nasal Secretion SARS-CoV-2 Antigen (Rapid) - Final Physical Exam Const alert, oriented x3 and no apparent distress Orientation / Consciousness: awake, oriented to person, oriented to place and oriented to time HEENT normocephalic and moist oral mucous membranes Eyes PERRL, EOMs intact bilaterally and conjunctivae normal Neck no lymphadenopathy Resp normal respiratory effort and clear to auscultation bilaterally Cardio regular rate, regular rhythm and no murmurs Peripheral Pulses: pulses 2+ throughout GI normal to inspection, nondistended, normoactive bowel sounds and non-distended Palpation: tender other (Generalized) Extremity normal to inspection Skin no rashes or lesions noted Lesions: no lesions Rashes: no rashes Trauma: no lacerations or abrasions Neuro CN's II-XII intact bilaterally, no focal motor deficits, no sensory deficits noted and deep tendon reflexes 2+ bilaterally Psych mental status grossly normal and affect normal Assessment & Plan Assessment/Plan (1) Acute diverticulitis: PLAN: 1. Acute sigmoid diverticulitis, +SIRS criteria, qSOFA 0-On IV Cipro and IV Flagyl. C. difficile and enteric bacteriology pending. Leukocytosis resolved. Fever improved. Anticipate discharge 03/31/2021 if continued improvement. Advance diet as tolerated 2. Acute hyponatremia-suspect secondary to hypovolemia. Improved with IV fluids, trend BMP. 3. History of autoimmune hepatitis-stable. 4. Chronic pancreatitis-on Creon. 5. Hypertension-stable, continue metoprolol. 6. Hypothyroidism-continue Synthroid regimen. 7. History of lupus-on hydroxychloroquine, hydrocortisone. DVT prophylaxis-Lovenox subcu This patient was seen by VADIM Fish under the supervision of Dr. Wan. Documented by User: Dr. Maxime Wan MD 03/30/21 14:44 Subjective Subjective Seen and examined. Patient abdominal pain is slightly better. Main pain is in left lower quadrant. No nausea or vomiting but decreased appetite. Objective Data Lab / Micro Data Result Diagrams: 03/30/21 05:04 03/30/21 05:04 Physical Exam Narrative General: Alert, Oriented x3, Cooperative HEENT: Atraumatic, PERRLA, EOMI, Normocephalic Oral: No Gingival or Mucosal Lesions/ Ulcerations Neck: Supple, No JVD, Negative Carotid Bruits Lungs: Air entry diminished in bilateral lung bases. No crepitation/rhonchi Cardiovascular: Regular rate, Regular Rhythm, Normal S1, Normal S2, pansystolic murmur cardiac apex LLSB. Abdomen: Soft, tenderness present mainly over left lower quadrant. Bowel Sounds Present, Non-Distended : No renal angle tenderness. No suprapubic tenderness. Extremities: No edema, Capillary Refill Less than 3 Seconds Skin: No rashes, No breakdown Musculoskeletal: No Tenderness to Palpation of Joints or Extremities Neurological: Cranial nerves II-XII grossly intact, DTR 2+/4 and Symmetrical, Neuro grossly intact Psych/Mental Status: Normal Affect, Appropriate. Assessment & Plan Assessment/Plan (1) Rectosigmoid diverticulitis: PLAN: This patient was seen in conjunction with No DASILVA. I have independently interviewed and examined the patient and reviewed pertinent history, examination findings, laboratory and plan of management. I have reviewed the note and agree with the documented findings with the few additional points. In brief, patient is admitted for severe abdominal pain started from right lower quadrant became diffuse, nausea and diarrhea. She also antibiotic about 2 to 3 months ago. On IV Cipro and Flagyl for severe rectosigmoid diverticulitis. 03/30: C. difficile negative. Continue IV Cipro and Flagyl. Stool for enteric bacteriology panel negative. Stool for Giardia antigen pending. Has history of rheumatic fever and murmur seems mitral regurgitation on auscultation. Need 2D echo as an outpatient when stable. Last echo in June 2012 shows trivial MR, trivial TR trivial AI. EF 65%. Other comorbidities including hyponatremia, chronic pancreatitis and autoimmune hepatitis as mentioned above. I talked to the patient's daughter near the bedside and explained my clinical diagnosis and course of the disease. I have discussed my assessment with HYBRID DERIVATIVES TRADER, No and orders have been reviewed. Microbiology Past 72 Hours 03/30/21 03:25 Stool C. difficile DNA Amplification - Final 03/30/21 03:25 Stool Enteric Bacteriology - Final 03/28/21 17:35 Nasal Secretion SARS-CoV-2 Antigen (Rapid) - Final Laboratory Results 03/30/21 03:25: Stl Giardia Antigen Pending 03/30/21 05:04: WBC 7.8, RBC 3.53 L, Hgb 11.1 L, Hct 33.2 L, MCV 94.1, MCH 31.4, MCHC 33.4, RDW Std Deviation 50.3 H, RDW Coeff of [place] 14.6, Plt Count 146 L, MPV 9.5, Immature Gran % (Auto) 0.900, Neut % (Auto) 79.1 H, Lymph % (Auto) 12.1 L, [place] % (Auto) 7.0, Eos % (Auto) 0.6, Baso % (Auto) 0.3, Absolute Neuts (auto) 6.1, Absolute Lymphs (auto) 0.94, Nucleated RBC % 0 03/30/21 05:04: Sodium 133 L, Potassium 3.8, Chloride 104, Carbon Dioxide 24.0, Anion Gap 5, BUN 8, Creatinine 0.62, Estim Creat Clear Calc 31.83, Est GFR (MDRD) Af Amer 118, Est GFR (MDRD) Non-Af 98, BUN/Creatinine Ratio 12.8, Glucose 105, Calcium 7.5 L Charges/Coding Visit Charges Inpatient E&M: 10473 Subs Hosp L2
[2021-03-30 15:20] VITALS: BP 134/57; PULSE 72; RESP 18; TEMP 36.3; O2SAT 99
[2021-03-30 21:42] VITALS: BP 132/56; PULSE 87; RESP 17; TEMP 36.4; O2SAT 97
[2021-03-30 21:52] VITALS: PULSE 87
[2021-03-30] MEDS: Metoprolol(XL)Succ 50 MG Tablet PO (21:52)
[2021-03-30] MEDS: MELATONIN 3 MG TABLET PO (22:56)
[2021-03-31 03:44] VITALS: BP 119/52; PULSE 73; RESP 17; TEMP 36.8; O2SAT 98
[2021-03-31] MEDS: metroNIDAZOLE 100 ML 100 MG IV (05:43)
[2021-03-31] MEDS: Levothyroxine 75 MCG Tablet PO (06:00)
[2021-03-31 06:41] LABS: Anion Gap 7 (5-15); BUN 5 mg/dL (7-18); Calcium,Total 7.3 mg/dL (8.5-10.1); Chloride 109 mmol/L (98-107); Creatinine, Serum 0.63 mg/dL (0.55-1.02); EST Glomerular Filtration Rate 97 mL/min (>60); Est Glom Filt Rate - Afr Amer 117 mL/min (>60); Estimated Creatinine Clearance 31.83 ml/min; Glucose 102 mg/dL (74-106); Sodium Level 139 mmol/L (136-145)
[2021-03-31 08:44] VITALS: BP 136/63; PULSE 73; RESP 16; TEMP 36.7; O2SAT 94
[2021-03-31] MEDS: Hydroxychloroquine 200 MG Tablet PO (08:46)
[2021-03-31] MEDS: Timolol 0.5% 5ML OPTH.BTL 1 DRP EACH EYE (09:28)
[2021-03-31 09:30] VITALS: BP 146/63; PULSE 66; RESP 12; TEMP 36.7; O2SAT 98
[2021-03-31 09:32] VITALS: BP 146/63; PULSE 66
[2021-03-31] MEDS: Metoprolol(XL)Succ 50 MG Tablet PO (09:32)
[2021-03-31] MEDS: BRIMONIDINE 0.15% 5 ML Bottle 1 DRP EACH EYE (09:32)
[2021-03-31] MEDS: Cholecalciferol (VIT D3) 25 MCG TABLET (1,000 UNITS) 50 MCG PO (09:32)
[2021-03-31] MEDS: Hydrocortisone 10 MG Tablet 5 MG PO (09:33)
[2021-03-31] MEDS: Budesonide 3 MG CAPSULE.EC PO (09:33)
[2021-03-31] MEDS: Potassium Chloride Oral Tablet 10 MEQ PO (09:33)
[2021-03-31] MEDS: Enoxaparin 40 MG/0.4 ML Syringe SC (09:33)
[2021-03-31 09:45] VITALS: O2SAT 96
[2021-03-31] MEDS: Ciprofloxacin 400 MG/200 ML BAG 200 MG IV (09:46)
[2021-03-31 10:50] LABS: Magnesium 1.8 mg/dL (1.6-2.6); Phosphorus 1.7 mg/dL (2.5-4.9)
--- NOTE | 2021-03-31 11:18 | PCM.DC ---
Discharge Instructions Diet Discharge Diet: Low fat / Low cholesterol Activity Discharge Activity: Return to Normal Activity Dressing / Incision Call your doctor if you observe: Fever of 101 or Higher, Inability to have a bowel movement and Uncontrolled pain Follow Up Care Please Follow Up With: Sidney Khan MD When: 2-4 weeks Test Results: Test results from this visit will be discussed in further detail at your follow-up appointment, if applicable. Discharge Plan Admission Admit Date/Time: 03/28/21 19:57 Primary Reason for Your Visit: diverticulitis Attending Provider: Maxime Wan Primary Care Provider: Ashvin Cardenas Instructions Patient Instructions: Diverticulosis Diverticulitis Discharge Orders/Prescriptions Prescriptions: New potassium chloride 10 mEq Tablet,Er Particles/Crystals 20 meq PO DAILY 30 Days Qty: 60 RF: 0 metronidazole 500 mg tablet 500 mg PO Q8H 7 Days Qty: 21 RF: 0 cefdinir 300 mg capsule 300 mg PO DAILY 7 Days Qty: 7 RF: 0 Continued levothyroxine 75 MCG tablet 75 mcg PO DAILY RF: 0 budesonide 3 MG capsule,delayed,extend.release 3 mg PO DAILY RF: 0 hydroxychloroquine 200 MG tablet 200 mg PO DAILYCM RF: 0 brimonidine 1 DROP bottle 1 drp EACH EYE BID RF: 0 bimatoprost 1 DROP bottle 1 drp EACH EYE QHS RF: 0 timolol maleate 1 DROP drops 1 drp EACH EYE DAILY RF: 0 metoprolol succinate 50 MG tablet extended release 24 hr 50 mg PO BID RF: 0 cholecalciferol (vitamin D3) 2,000 UNIT capsule 2,000 unit PO DAILY RF: 0 hydrocortisone 5 MG tablet 5 mg PO DAILY RF: 0 food supplemt, lactose-reduced 120 ML liquid 120 ml PO DAILY RF: 0 ondansetron 4 MG tablet 4 mg PO Q8H PRN PRN (Reason: Nausea) Qty: 10 RF: 0 Saccharomyces boulardii [Florastor] 250 mg Capsule 250 mg PO BID RF: 0 Creon 12,000-38,000 -60,000 unit Capsule,Delayed Release(Dr/Ec) 1 cap PO TIDCM Qty: 90 RF: 1 artificial tears solution Drops 1 drp OPHTHALMIC (EYE) DAILY PRN (Reason: Dry Eye(S)) RF: 0 Eylea 2 mg/0.05 mL Syringe 2 mg INTRAVITREAL .[id number] RF: 0 Discontinued potassium chloride 10 MEQ capsule, extended release 10 meq PO DAILY RF: 0 Referrals / Follow Up: Ashvin Cardenas MD [Primary Care Provider] - Disposition Disposition (needs filled in before D/C Order can be placed): Home, Self Care
[2021-03-31] MEDS: Potassium Chloride 10mEq/100mL 10 MEQ/100 ML IV.SOLN. 100 MEQ IV BOLUS ×4 (11:27→14:47)
--- NOTE | 2021-03-31 11:36 | PCM.DC.SUM ---
Documented by User: VADIM Rivera 03/31/21 11:44 Providers Date of Admission: 03/28/21 Primary Care Physician: Dr. Ashvin Cardenas MD Reason For Visit: ACUTE SIGMOID DIVERTICULITIS Diagnosis Discharge Diagnosis (1) Rectosigmoid diverticulitis: Status: Acute Code(s): K57.32 - Diverticulitis of large intestine without perforation or abscess without bleeding Plan: 1. Acute diverticulitis -qSOFA 0 -Patient improved on Cipro and IV Flagyl however due to concerns for prolonged QT with concurrent Cipro and hydroxychloroquine use will transition patient to Omnicef and Flagyl for outpatient completion of antibiotic regimen. -Patient to follow-up with Dr. Khan 2. Acute hyponatremia -Resolved current sodium level 139 3. Acute hypokalemia -Potassium level decreased from 3.8 to 3.0. -Magnesium and phosphorus level pending. -Potassium chloride 40 mEq IV ordered We will continue all medications related to patient chronic diseases upon discharge DVT prophylaxis-subcu Lovenox This patient was seen by VADIM Rivera under the supervision of Dr. Wan. Medications at Discharge Home Medications bimatoprost 1 drp EACH EYE QHS 06/23/17 brimonidine 1 drp EACH EYE BID 06/23/17 budesonide 3 mg PO DAILY 06/23/17 hydroxychloroquine 200 mg PO DAILYCM 06/23/17 levothyroxine 75 mcg PO DAILY 06/23/17 timolol maleate 1 drp EACH EYE DAILY 06/23/17 metoprolol succinate 50 mg PO BID 06/04/19 cholecalciferol (vitamin D3) 2,000 unit PO DAILY 07/30/19 hydrocortisone 5 mg PO DAILY 07/31/19 food supplemt, lactose-reduced 120 ml PO DAILY 10/22/20 ondansetron 4 mg PO Q8H PRN PRN #10 tablet 10/22/20 Saccharomyces boulardii [Florastor] 250 mg PO BID 11/15/20 Creon 1 cap PO TIDCM #90 cap 11/18/20 Eylea 2 mg INTRAVITREAL .[id number] 03/28/21 artificial tears solution 1 drp OPHTHALMIC (EYE) DAILY PRN 03/28/21 ciprofloxacin HCl [Cipro] 500 mg PO BID #14 tab 03/31/21 metronidazole 500 mg PO Q8H 7 Days #21 tab 03/31/21 potassium chloride 20 meq PO DAILY 30 Days #60 tab 03/31/21 Medical Records Data Medical Nutrition Assessment Dietitian: Malnutrition Criteria Met Start: 03/29/21 13:52 Freq: Status: Active Protocol: Document 03/29/21 13:52 RMA (Rec: 03/29/21 13:52 RMA [id number]) Nutrition Malnutrition Evidence of Malnutrition Exists Yes Malnutrition (severe): Chronic Evidenced By Suboptimal Energy Intake ( Severe),Weight Loss (Severe) Clinical Problem Chronic Disease or Condition Related Malnutrition Etiology Severe protein-calorie malnutrition in the context of chronic disease related to altered GI function and decreased appetite Signs/Symptoms as evidenced by 7% wt loss x past 2-3 months and PO meeting less than 50% estimated nutrition needs. Status Active Problem Recommendation Dietitian Recommendations/Changes Continue clear liquid diet and advance diet as tolerated to Regular/Fiber-restricted when ready for solid foods. Will add 240ml fisher ensure clear TID w/ meals for additional 720 kcal and 24 gm pro/day. Weight / BMI Weight Weight: 100 lb 12.02 oz Body Mass Index (BMI) 21.0 ABG / Lab / Microbiology Data Result Diagrams: 03/30/21 05:04 03/31/21 05:50 Laboratory: Laboratory Results - last 24 hr 03/31/21 05:50: Sodium 139, Potassium 3.0 L, Chloride 109 H, Carbon Dioxide 23.0, Anion Gap 7, BUN 5 L, Creatinine 0.63, Estim Creat Clear Calc 31.83, Est GFR (MDRD) Af Amer 117, Est GFR (MDRD) Non-Af 97, BUN/Creatinine Ratio 8.0 L, Glucose 102, Calcium 7.3 L Microbiology: Microbiology 03/28/21 20:04 Blood Culture (Wb) - Anticubital Right Blood Culture - Preliminary No growth in 48 hours. 03/28/21 20:01 Blood Culture (Wb) - Right Wrist Blood Culture - Preliminary No growth in 48 hours. 03/30/21 03:25 Stool C. difficile DNA Amplification - Final 03/30/21 03:25 Stool Enteric Bacteriology - Final 03/28/21 17:35 Nasal Secretion SARS-CoV-2 Antigen (Rapid) - Final D/C Instructions Discharge Diet: Low fat / Low cholesterol Call your doctor if you observe: Fever of 101 or Higher, Inability to have a bowel movement and Uncontrolled pain Please Follow Up With: Sidney Khan MD When: 2-4 weeks Meaningful Use Info Meaningful Use Diagnoses (Choose all that apply): None applicable Discharge Plan Admission Admit Date/Time: 03/28/21 19:57 Primary Reason for Your Visit: diverticulitis Attending Provider: Maxime Wan Primary Care Provider: Ashvin Cardenas Instructions Patient Instructions: Diverticulosis Diverticulitis Additional Instructions / Restrictions: Patient Problems: Altered Health Status related to Hospitalization Patient Goals: *Optimal Level of Health *Keep Appointments *Medication Compliance *Remain Safe Discharge Orders/Prescriptions Prescriptions: New potassium chloride 10 mEq Tablet,Er Particles/Crystals 20 meq PO DAILY 30 Days Qty: 60 RF: 0 metronidazole 500 mg tablet 500 mg PO Q8H 7 Days Qty: 21 RF: 0 ciprofloxacin HCl [Cipro] 500 mg tablet 500 mg PO BID Qty: 14 RF: 0 Continued levothyroxine 75 MCG tablet 75 mcg PO DAILY RF: 0 budesonide 3 MG capsule,delayed,extend.release 3 mg PO DAILY RF: 0 hydroxychloroquine 200 MG tablet 200 mg PO DAILYCM RF: 0 brimonidine 1 DROP bottle 1 drp EACH EYE BID RF: 0 bimatoprost 1 DROP bottle 1 drp EACH EYE QHS RF: 0 timolol maleate 1 DROP drops 1 drp EACH EYE DAILY RF: 0 metoprolol succinate 50 MG tablet extended release 24 hr 50 mg PO BID RF: 0 cholecalciferol (vitamin D3) 2,000 UNIT capsule 2,000 unit PO DAILY RF: 0 hydrocortisone 5 MG tablet 5 mg PO DAILY RF: 0 food supplemt, lactose-reduced 120 ML liquid 120 ml PO DAILY RF: 0 ondansetron 4 MG tablet 4 mg PO Q8H PRN PRN (Reason: Nausea) Qty: 10 RF: 0 Saccharomyces boulardii [Florastor] 250 mg Capsule 250 mg PO BID RF: 0 Creon 12,000-38,000 -60,000 unit Capsule,Delayed Release(Dr/Ec) 1 cap PO TIDCM Qty: 90 RF: 1 artificial tears solution Drops 1 drp OPHTHALMIC (EYE) DAILY PRN (Reason: Dry Eye(S)) RF: 0 Eylea 2 mg/0.05 mL Syringe 2 mg INTRAVITREAL .[id number] RF: 0 Discontinued potassium chloride 10 MEQ capsule, extended release 10 meq PO DAILY RF: 0 Referrals / Follow Up: Allie Harris MD [STAFF PHYSICIAN] - 04/06/21 1:20 pm Disposition Disposition (needs filled in before D/C Order can be placed): Home, Self Care Documented by User: Dr. Maxime Wan MD 03/31/21 17:58 Providers Date of Admission: 03/28/21 Reason For Visit: ACUTE SIGMOID DIVERTICULITIS Medications at Discharge Home Medications bimatoprost 1 drp EACH EYE QHS 06/23/17 brimonidine 1 drp EACH EYE BID 06/23/17 budesonide 3 mg PO DAILY 06/23/17 hydroxychloroquine 200 mg PO DAILYCM 06/23/17 levothyroxine 75 mcg PO DAILY 06/23/17 timolol maleate 1 drp EACH EYE DAILY 06/23/17 metoprolol succinate 50 mg PO BID 06/04/19 cholecalciferol (vitamin D3) 2,000 unit PO DAILY 07/30/19 hydrocortisone 5 mg PO DAILY 07/31/19 food supplemt, lactose-reduced 120 ml PO DAILY 10/22/20 ondansetron 4 mg PO Q8H PRN PRN #10 tablet 10/22/20 Saccharomyces boulardii [Florastor] 250 mg PO BID 11/15/20 Creon 1 cap PO TIDCM #90 cap 11/18/20 Eylea 2 mg INTRAVITREAL .[id number] 03/28/21 artificial tears solution 1 drp OPHTHALMIC (EYE) DAILY PRN 03/28/21 ciprofloxacin HCl [Cipro] 500 mg PO BID #14 tab 03/31/21 metronidazole 500 mg PO Q8H 7 Days #21 tab 03/31/21 potassium chloride 20 meq PO DAILY 30 Days #60 tab 03/31/21 Hospital Course Summary of Care Provided Hospital Course: This patient was seen in conjunction with No DASILVA. I have independently interviewed and examined the patient and reviewed pertinent history, examination findings, laboratory and plan of management. I have reviewed the note and agree with the documented findings with the few additional points. In brief, patient is admitted for severe abdominal pain started from right lower quadrant became diffuse, nausea and diarrhea. She also antibiotic about 2 to 3 months ago. Stool for C. difficile negative. Patient was treated with IV Cipro and Flagyl for severe rectosigmoid diverticulitis. Stool for enteric bacteriology panel negative. Stool for Giardia antigen pending. Has history of rheumatic fever and murmur seems mitral regurgitation on auscultation. Need 2D echo as an outpatient when stable. Last echo in June 2012 shows trivial MR, trivial TR trivial AI. EF 65%. Other comorbidities including hyponatremia, chronic pancreatitis and autoimmune hepatitis as mentioned above. Patient daughter is concerned about safety near with history of hives with penicillin therefore antibiotic changed to Cipro. Pharmacy was called. Patient was advised to follow Dr. Khan in 2 to 4 weeks. Discharged home. Discharge medication reconciliation done. Discharge follow-up instructions completed. Discharge process discussed with the patient and all questions were answered to patient's satisfaction. Total time spent, exact 35 minutes on discharge meds reconciliation, examination, coordination of care with nurses and ancillary staff, review of imaging and blood test and discussion with the patient on follow-up instructions. I have discussed my assessment with SERVICE OPERATIONS MANAGERNo and orders have been reviewed. Physical Exam Narrative Seen and examined. Abdominal pain is much improved to 2/10 after since injury. No fever or chills. Heart rate and blood pressure controlled. General: Alert, Oriented x3, Cooperative HEENT: Atraumatic, PERRLA, EOMI, Normocephalic Oral: No Gingival or Mucosal Lesions/ Ulcerations Neck: Supple, No JVD, Negative Carotid Bruits Lungs: Air entry diminished in bilateral lung bases. No crepitation/rhonchi Cardiovascular: Regular rate, Regular Rhythm, Normal S1, Normal S2, pansystolic murmur cardiac apex LLSB. Abdomen: Soft, mild tenderness over left lower quadrant. Bowel Sounds Present, Non-Distended : No renal angle tenderness. No suprapubic tenderness. Extremities: No edema, Capillary Refill Less than 3 Seconds Skin: No rashes, No breakdown Musculoskeletal: No Tenderness to Palpation of Joints or Extremities Neurological: Cranial nerves II-XII grossly intact, DTR 2+/4 and Symmetrical, Neuro grossly intact Psych/Mental Status: Normal Affect, Appropriate. ABG / Lab / Microbiology Data Result Diagrams: 03/30/21 05:04 03/31/21 05:50 Discharge Plan Admission Admit Date/Time: 03/28/21 19:57 Primary Reason for Your Visit: diverticulitis Attending Provider: Maxime Wan Primary Care Provider: Ashvin Cardenas Instructions Patient Instructions: Diverticulosis Diverticulitis Additional Instructions / Restrictions: Patient Problems: Altered Health Status related to Hospitalization Patient Goals: *Optimal Level of Health *Keep Appointments *Medication Compliance *Remain Safe Discharge Orders/Prescriptions Prescriptions: New potassium chloride 10 mEq Tablet,Er Particles/Crystals 20 meq PO DAILY 30 Days Qty: 60 RF: 0 metronidazole 500 mg tablet 500 mg PO Q8H 7 Days Qty: 21 RF: 0 ciprofloxacin HCl [Cipro] 500 mg tablet 500 mg PO BID Qty: 14 RF: 0 Continued levothyroxine 75 MCG tablet 75 mcg PO DAILY RF: 0 budesonide 3 MG capsule,delayed,extend.release 3 mg PO DAILY RF: 0 hydroxychloroquine 200 MG tablet 200 mg PO DAILYCM RF: 0 brimonidine 1 DROP bottle 1 drp EACH EYE BID RF: 0 bimatoprost 1 DROP bottle 1 drp EACH EYE QHS RF: 0 timolol maleate 1 DROP drops 1 drp EACH EYE DAILY RF: 0 metoprolol succinate 50 MG tablet extended release 24 hr 50 mg PO BID RF: 0 cholecalciferol (vitamin D3) 2,000 UNIT capsule 2,000 unit PO DAILY RF: 0 hydrocortisone 5 MG tablet 5 mg PO DAILY RF: 0 food supplemt, lactose-reduced 120 ML liquid 120 ml PO DAILY RF: 0 ondansetron 4 MG tablet 4 mg PO Q8H PRN PRN (Reason: Nausea) Qty: 10 RF: 0 Saccharomyces boulardii [Florastor] 250 mg Capsule 250 mg PO BID RF: 0 Creon 12,000-38,000 -60,000 unit Capsule,Delayed Release(Dr/Ec) 1 cap PO TIDCM Qty: 90 RF: 1 artificial tears solution Drops 1 drp OPHTHALMIC (EYE) DAILY PRN (Reason: Dry Eye(S)) RF: 0 Eylea 2 mg/0.05 mL Syringe 2 mg INTRAVITREAL .[id number] RF: 0 Discontinued potassium chloride 10 MEQ capsule, extended release 10 meq PO DAILY RF: 0 Referrals / Follow Up: Allie Harris MD [STAFF PHYSICIAN] - 04/06/21 1:20 pm Disposition Disposition (needs filled in before D/C Order can be placed): Home, Self Care Charges/Coding Visit Charges Inpatient E&M: 18018 Disch Hosp
--- NOTE | 2021-03-31 12:43 | CASEMGMT ---
This RN CM to room and pt declines need for any further resources/ therapy at discharge. Pt aware to speak with PCP is she decides she needs therapy once home, voices understanding. SStbre RN CM
--- NOTE | 2021-03-31 12:53 | PHA.DC.MC ---
Pharmacy Service has performed discharge medication reconciliation and counseling for this patient. The patient was counseled on the following discharge medications and changes in medications for homegoing were reviewed. 1. CEFDINIR 2. METRONIDAZOLE 3. POTASSIUM CHLORIDE The Reason for Use, instructions for use, and potential side effects were reviewed for all new medications. The patient's questions regarding all of their medications were answered. The patient was able to verbally demonstrate an understanding of their discharge medications. Home Medications bimatoprost 1 drp EACH EYE QHS 06/23/17 brimonidine 1 drp EACH EYE BID 06/23/17 budesonide 3 mg PO DAILY 06/23/17 hydroxychloroquine 200 mg PO DAILYCM 06/23/17 levothyroxine 75 mcg PO DAILY 06/23/17 timolol maleate 1 drp EACH EYE DAILY 06/23/17 metoprolol succinate 50 mg PO BID 06/04/19 cholecalciferol (vitamin D3) 2,000 unit PO DAILY 07/30/19 hydrocortisone 5 mg PO DAILY 07/31/19 food supplemt, lactose-reduced 120 ml PO DAILY 10/22/20 ondansetron 4 mg PO Q8H PRN PRN #10 tablet 10/22/20 Saccharomyces boulardii [Florastor] 250 mg PO BID 11/15/20 Creon 1 cap PO TIDCM #90 cap 11/18/20 Eylea 2 mg INTRAVITREAL .[id number] 03/28/21 artificial tears solution 1 drp OPHTHALMIC (EYE) DAILY PRN 03/28/21 cefdinir 300 mg PO DAILY 7 Days #7 cap 03/31/21 metronidazole 500 mg PO Q8H 7 Days #21 tab 03/31/21 potassium chloride 20 meq PO DAILY 30 Days #60 tab 03/31/21
[2021-03-31 15:30] VITALS: BP 130/71; PULSE 80; RESP 16; TEMP 36.7; O2SAT 98
--- NOTE | 2021-04-01 14:24 | CASEMGMT ---
RN CM Discharge Follow-up Phone Call: ALISON: Jsaen Strata: 3 Call Date: 04/01/21 Discharge Date: 03/31/21 Time of Call: [id number] Admitting Diagnosis: acute diverticulitis. This RN CM attempted to contact pt via phone for discharge follow-up. No answer was received and voicemail was not set-up. Olga Castro RN CM
== END 2021-03-31 17:47 | disposition home or self-care (01) | DRG 872 ==
LOC: ED 17:32 → PCU 20:11
PROVIDERS: Nurse Practitioner Family; Admitting Provider Hospitalist; Emergency Provider Emergency Medicine; PCP Family Medicine; Visit Provider Internal Medicine
DX: A41.9 Sepsis, unspecified organism (principal); K57.32 Diverticulitis of large intestine without perforation or abscess without bleeding; E87.1 Hypo-osmolality and hyponatremia; K86.1 Other chronic pancreatitis; Z20.822 Contact with and (suspected) exposure to COVID-19; I34.0 Nonrheumatic mitral (valve) insufficiency; I48.91 Unspecified atrial fibrillation; I10 Essential (primary) hypertension; E78.5 Hyperlipidemia, unspecified; E03.9 Hypothyroidism, unspecified; K75.4 Autoimmune hepatitis; E87.6 Hypokalemia; H35.30 Unspecified macular degeneration; G47.30 Sleep apnea, unspecified; H91.93 Unspecified hearing loss, bilateral; Z79.890 Hormone replacement therapy; Z79.899 Other long term (current) drug therapy
CPT/HCPCS: 36415; 74177; 80048; 81001; 83605; 83735; 84100; 85025; 87040; 87329; 87426; 87493; 87506; 97110; 97116; 97162; 97166; 97530; 97535; 97802; 99285; J7030; J7040; Q9967; A4216; J0744; J2405

== ENCOUNTER → 2021-04-05 15:56 | Outpatient (CLI) | payer MEDICARE, SELFPAY ==
[2021-04-05 18:04] LABS: Absolute Lymphocyte Count 1.24 X10^3/uL (0.83-4.51); Absolute Neutrophil Count 5.2 X10^3/uL (2.0-7.7); Basophil# 0.02 X10^3/uL; Basophil% 0.3 % (0-1); Eosinophil# 0.08 X10^3/uL; Eosinophils% 1.1 % (0-5); Hematocrit 39.8 % (37-47); Hemoglobin 13.1 g/dL (12.0-15.0); Lymphocyte # 1.24 X10^3/ul (0.83-4.51); Lymphocyte % 16.4 % (19-41); Mean Corp Hgb Conc 32.9 g/dL (32-36); Mean Corpuscular Hgb 30.5 pg (27.0-32.0); Mean Corpuscular Volume 92.8 fL (81-99); Mean Platelet Vol. 9.7 fl (6.2-12.0); Monocyte% 13.2 % (0-10); NRBC Flagged by Analyzer 0 % (0-5); Neutrophil # 5.16 X10^3/uL (2.7-7.7); Neutrophil % 68.1 % (47-70); Platelet Count 295 K/mm3 (150-450); RBC Distribution Width CV 14.9 % (11.6-14.6); RBC Distribution Width SD 50.6 fl (35.1-43.9); Red Blood Count 4.29 M/mm3 (4.2-5.4); White Blood Count 7.6 K/mm3 (4.4-11.0)
[2021-04-05 18:20] LABS: ALB/GLOB Ratio 0.6 RATIO (0.9-2.4); AST(SGOT) 24 U/L (15-37); Alanine Aminotransfer ALT/SGPT 24 U/L (13-56); Albumin, Serum 2.8 g/dL (3.2-5.0); Alkaline Phosphatase 47 U/L (45-117); Anion Gap 6 (5-15); BUN 6 mg/dL (7-18); BUN/Creat Ratio 8.9 RATIO (10-20); Calcium,Total 8.8 mg/dL (8.5-10.1); Chloride 98 mmol/L (98-107); Creatinine, Serum 0.67 mg/dL (0.55-1.02); EST Glomerular Filtration Rate 89 mL/min (>60); Est Glom Filt Rate - Afr Amer 108 mL/min (>60); Glucose 129 mg/dL (74-106); Potassium 2.8 mmol/L (3.5-5.1); Protein, Total 7.8 g/dL (6.4-8.2); Sodium Level 133 mmol/L (136-145)
== END ==
PROVIDERS: PCP Family Medicine; Referring Provider Family Medicine; Visit Provider Family Medicine
DX: K57.32 Diverticulitis of large intestine without perforation or abscess without bleeding (principal); R53.81 Other malaise; R53.83 Other fatigue
CPT/HCPCS: 36415; 80053; 85025; 86140

== ENCOUNTER 2021-04-11 14:02 | Emergency (ER) | payer MEDICARE, SELFPAY ==
[2021-04-11 14:10] VITALS: BP 138/58; PULSE 73; RESP 20; TEMP 36.9; O2SAT 93; BMI 21.7
[2021-04-11 14:15] VITALS: BP 138/58; PULSE 73; RESP 20; TEMP 36.9; O2SAT 93
[2021-04-11 15:13] VITALS: BP 124/49; PULSE 74; RESP 14; TEMP 36.6; O2SAT 94
--- NOTE | 2021-04-11 16:10 | CT_ITS ---
STUDY: CT ABDOMEN AND PELVIS WITHOUT CONTRAST REASON FOR EXAM: Female, 81 years old. CURRENTLY ON ATB FOR DIVERTICULITIS, LUPUS, AVM OF COLON WITH HEMORRHAGE, HTN, SURG-tubal ligation, cholecystectomy, colon surgery, mass on hip removed RADIATION DOSAGE (If Supplied By Facility): CTDIvol = ( 6.04 ) mGy, DLP = ( 338.65 ) mGycm TECHNIQUE: Transaxial images were obtained from the dome of the diaphragm to the symphysis pubis without oral contrast, and without intravenous contrast. Sagittal and coronal images were reconstructed. Individualized dose optimization techniques were used for this CT. COMPARISON: CT of abdomen and pelvis dated March 28, 2021 FINDINGS: There are chronic interstitial fibrotic changes of the lung bases. Mild thickening of the pleura noted in the bilateral lung bases. Normal liver. There are surgical clips in the gallbladder fossa consistent with a prior cholecystectomy. Normal spleen. There are pancreatic calcifications in the distribution of the ducts consistent with chronic pancreatitis. Normal bilateral adrenal glands. Normal right kidney. Normal left kidney. There is a small hiatal hernia. Normal small intestine. Acute inflammation of 2 diverticulosis in the proximal one third: In the right upper abdomen region is associated with mild pericolonic inflammatory stranding compatible with acute diverticulitis. No free air or abscess is present. Significant diverticulosis of the descending and rectosigmoid colonic regions reidentified. There are multiple colonic diverticula consistent with diverticulosis. The appendix is visualized and appears normal. There is diffuse atherosclerotic calcification of the abdominal aorta, without a demonstrated aneurysm. Normal inferior vena cava. Normal retroperitoneum. Normal urinary bladder. Unremarkable uterus and adnexa. Normal abdominal wall. There are diffuse degenerative changes of the visualized lumbar spine. IMPRESSION: Acute diverticulitis in the proximal transverse colon region 1. Acute inflammation of 2 diverticulosis in the proximal one third: In the right upper abdomen region is associated with mild pericolonic inflammatory stranding compatible with acute diverticulitis. No free air or abscess is present. 2. Significant diverticulosis of the descending and rectosigmoid colonic regions reidentified. Electronically Signed: Glen Goss MD at 18:10 EDT , Service support , CT/Abdomen/Pelvis without Cont
[2021-04-11 16:47] VITALS: BP 124/54; PULSE 76; RESP 16; O2SAT 94
--- NOTE | 2021-04-11 16:58 | EX.ED.DYSGE1 ---
HPI History of Present Illness Chief Complaint: Abd Pain Informant: patient Onset/Context/Timing Onset: Days Context: Gradual Onset Timing: Continuous Quality: Aching Location: Generalized Worsened by: Nothing Relieved by: Nothing Narrative Narrative: Patient presents with abdominal pain that has been waxing and waning over the past few days. Patient was diagnosed with diverticulitis 2 weeks ago. Patient has been on Cipro and Flagyl at home. Patient describes the pain as aching. Patient states nothing makes it worse and nothing makes it better. Patient admits to nausea and vomiting. Patient denies any hematemesis or coffee-ground emesis. Patient admits to some diarrhea. Daughter states it is more loose than watery. Daughter denies any melena or hematochezia. Patient denies any dysuria or hematuria. Patient denies any frequency. Daughter states patient has had decreased appetite and has not been eating as much as normal. Daughter reports patient has had problems with Cipro in the past. 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 Tachycardia Home Medications bimatoprost 1 drp EACH EYE QHS 06/23/17 [History Last Taken 03/24/21] brimonidine 1 drp EACH EYE BID 06/23/17 [History Last Taken 03/28/21] budesonide 3 mg PO DAILY 06/23/17 [History Last Taken 03/27/21] hydroxychloroquine 200 mg PO DAILYCM 06/23/17 [History Last Taken 03/25/21] levothyroxine 75 mcg PO DAILY 06/23/17 [History Last Taken 03/28/21] timolol maleate 1 drp EACH EYE DAILY 06/23/17 [History Last Taken 03/28/21] metoprolol succinate 50 mg PO BID 06/04/19 [History Last Taken 03/27/21] cholecalciferol (vitamin D3) 2,000 unit PO DAILY 07/30/19 [History Last Taken 03/25/21] hydrocortisone 5 mg PO DAILY 07/31/19 [History Last Taken 3 Days Ago ~11/12/20] food supplemt, lactose-reduced 120 ml PO DAILY 10/22/20 [History Last Taken Unknown] ondansetron 4 mg PO Q8H PRN PRN #10 tablet 10/22/20 [Rx Last Taken 03/28/21] Saccharomyces boulardii [Florastor] 250 mg PO BID 11/15/20 [History Last Taken 03/25/21] Creon 1 cap PO TIDCM #90 cap 11/18/20 [Rx Last Taken 03/25/21] Eylea 2 mg INTRAVITREAL .[id number] 03/28/21 [History Last Taken 03/17/21] artificial tears solution 1 drp OPHTHALMIC (EYE) DAILY PRN 03/28/21 [History Last Taken Unknown] ciprofloxacin HCl [Cipro] 500 mg PO BID #14 tab 03/31/21 [Rx Last Taken Unknown] metronidazole 500 mg PO Q8H 7 Days #21 tab 03/31/21 [Rx Last Taken Unknown] potassium chloride 20 meq PO DAILY 30 Days #60 tab 03/31/21 [Rx Last Taken Unknown] Allergy/AdvReac Type Severity Reaction Status Date / Time Penicillins [PCN] Allergy Hives Verified 10/22/20 16:19 azathioprine [From Imuran] AdvReac Vomiting Verified 10/22/20 16:19 griseofulvin AdvReac NEEDS Verified 10/22/20 16:19 [From Priti-PEG FOLLOW-UP (ultramicrosize)] PEPCID AdvReac Mild HALLUCINATI Uncoded 04/11/21 14:14 ONS Family History Father Heart disease Pacemaker Mother Heart disease Surgical History H/O cataract extraction h/o mass removed from hip H/O tubal ligation Hx of cholecystectomy Social History Smoking Status: Never smoker ROS ROS ED Constitutional Constitutional ED: Reports fever(s); Denies chills Eyes Eyes: Denies blurry vision or change in vision ENT ENT ED: Reports rhinorrhea; Denies sore throat Cardiovascular Cardiovascular: Denies chest pain or palpitations Respiratory/Chest Respiratory/Chest: Denies cough or dyspnea Gastrointestinal Gastrointestinal: Reports abdominal pain, diarrhea, nausea and vomiting Genitourinary Genitourinary ED: Denies dysuria or hematuria Musculoskeletal Musculoskeletal: Denies back pain or neck pain Integumentary Denies abscess or rash Neurologic Neurologic: Reports weakness; Denies headache(s) Allergic/Immunologic Allergic/Immunologic ED: Denies mouth swelling or urticaria EXAM Physical Exam Const Vital Signs: 04/11/21 14:10 04/11/21 14:15 04/11/21 15:13 Temperature 98.5 F 98.5 F 98 F Temperature Source Temporal Temporal Temporal Pulse Rate 73 73 74 Respiratory Rate 20 H 20 H 14 Blood Pressure 138/58 H 138/58 H 124/49 H Blood Pressure Mean 84 84 74 Pulse Ox 93 93 94 Oxygen Delivery Method Room Air Room Air 04/11/21 16:47 04/11/21 18:00 Temperature 98.6 F Temperature Source Oral Pulse Rate 76 72 Respiratory Rate 16 16 Blood Pressure 124/54 H 117/51 L Blood Pressure Mean 77 73 Pulse Ox 94 94 Oxygen Delivery Method Room Air Room Air Positive well nourished and well developed General Appearance ED: well developed HEENT Reports moist mucous membranes Neck supple and no JVD Resp normal respiratory effort and clear to auscultation bilaterally Cardio regular rate and regular rhythm GI non-distended Palpation: soft and tender LLQ and suprapubic; Negative for guarding or rebound tenderness present Extremity normal to inspection General Extremety ED: Negative for edema or tenderness General Extremity: Negative for edema Neuro oriented x3, CN's II-XII intact bilaterally and no sensory deficits noted Sensorium / Orientation: alert Motor Exam: strength 5/5 throughout Psych mental status grossly normal MDM MDM MDM Narrative Medical decision making narrative: Patient was given IV fluids here. CBC and comprehensive metabolic profile were obtained. Potassium was slightly low at 3.0. Patient was given a dose of oral potassium here. CT scan of the abdomen and pelvis was obtained. There is still diverticulitis noted. There is no perforation or abscess. This was interpreted by the radiologist and reviewed by myself. Patient was given a dose of Cipro and Flagyl here. Urinalysis was ordered. There is no evidence of urinary tract infection. Findings were discussed with the patient and family. They will continue the Cipro and Flagyl until gone at home. Patient was instructed to follow-up with her primary care physician in 3 to 5 days. Patient and family understood and were agreeable with the plan. All questions were answered. Lab Data Attestation: I reviewed the patient's lab results. Labs: Laboratory Results - last 24 hr 04/11/21 04/11/21 04/11/21 16:50 16:50 Unknown WBC 10.6 RBC 4.06 L Hgb 12.4 Hct 36.6 L MCV 90.1 MCH 30.5 MCHC 33.9 RDW Std Deviation 49.1 H RDW Coeff of Samreen 14.8 H Plt Count 269 MPV 9.7 Immature Gran % (Auto) 0.500 Neut % (Auto) 79.7 H Lymph % (Auto) 11.4 L [place] % (Auto) 7.8 Eos % (Auto) 0.2 Baso % (Auto) 0.4 Absolute Neuts (auto) 8.5 H Absolute Lymphs (auto) 1.21 Nucleated RBC % 0 Sodium 132 L Potassium 3.0 L Chloride 95 L Carbon Dioxide 27.0 Anion Gap 10 BUN 5 L Creatinine 0.63 Estim Creat Clear Calc 32.95 Est GFR (MDRD) Af Amer 117 Est GFR (MDRD) Non-Af 97 BUN/Creatinine Ratio 8.0 L Glucose 110 H Calcium 8.3 L Total Bilirubin 0.90 AST 21 ALT 17 Alkaline Phosphatase 41 L Total Protein 7.1 Albumin 2.5 L Globulin 4.6 H Albumin/Globulin Ratio 0.5 L Urine Color Yellow Urine Clarity Clear Urine pH 6.5 Ur Specific [place] 1.010 Urine Protein Negative Urine Glucose (UA) Normal Urine Ketones 15 H Urine Occult Blood Negative Urine Nitrite Negative Urine Bilirubin Negative Urine Urobilinogen Normal Ur Leukocyte Esterase Negative Radiography Diagnostic Testing: Radiology Impression Abdomen/Pelvis CT 04/11/21 16:10 Discharge Plan Triage Chief Complaint: Abd Pain ED Provider: Ashvin Glaser Dx/Rx/DC Orders Clinical Impression: Acute diverticulitis, Acute hypokalemia Prescriptions: No Action levothyroxine 75 MCG tablet 75 mcg PO DAILY RF: 0 budesonide 3 MG capsule,delayed,extend.release 3 mg PO DAILY RF: 0 hydroxychloroquine 200 MG tablet 200 mg PO DAILYCM RF: 0 brimonidine 1 DROP bottle 1 drp EACH EYE BID RF: 0 bimatoprost 1 DROP bottle 1 drp EACH EYE QHS RF: 0 timolol maleate 1 DROP drops 1 drp EACH EYE DAILY RF: 0 metoprolol succinate 50 MG tablet extended release 24 hr 50 mg PO BID RF: 0 cholecalciferol (vitamin D3) 2,000 UNIT capsule 2,000 unit PO DAILY RF: 0 hydrocortisone 5 MG tablet 5 mg PO DAILY RF: 0 food supplemt, lactose-reduced 120 ML liquid 120 ml PO DAILY RF: 0 ondansetron 4 MG tablet 4 mg PO Q8H PRN PRN (Reason: Nausea) Qty: 10 RF: 0 Saccharomyces boulardii [Florastor] 250 mg Capsule 250 mg PO BID RF: 0 Creon 12,000-38,000 -60,000 unit Capsule,Delayed Release(Dr/Ec) 1 cap PO TIDCM Qty: 90 RF: 1 artificial tears solution Drops 1 drp OPHTHALMIC (EYE) DAILY PRN (Reason: Dry Eye(S)) RF: 0 Eylea 2 mg/0.05 mL Syringe 2 mg INTRAVITREAL .[id number] RF: 0 potassium chloride 10 mEq Tablet,Er Particles/Crystals 20 meq PO DAILY 30 Days Qty: 60 RF: 0 metronidazole 500 mg tablet 500 mg PO Q8H 7 Days Qty: 21 RF: 0 ciprofloxacin HCl [Cipro] 500 mg tablet 500 mg PO BID Qty: 14 RF: 0 Primary Care Provider: Ashvin Cardenas Referrals: Ashvin Cardenas MD [Primary Care Provider] - 3-5 Days Disposition Disposition: Home, Self Care
[2021-04-11 17:12] LABS: Absolute Lymphocyte Count 1.21 X10^3/uL (0.83-4.51); Absolute Neutrophil Count 8.5 X10^3/uL (2.0-7.7); Basophil# 0.04 X10^3/uL; Basophil% 0.4 % (0-1); Eosinophil# 0.02 X10^3/uL; Eosinophils% 0.2 % (0-5); Hematocrit 36.6 % (37-47); Hemoglobin 12.4 g/dL (12.0-15.0); Lymphocyte # 1.21 X10^3/ul (0.83-4.51); Lymphocyte % 11.4 % (19-41); Mean Corp Hgb Conc 33.9 g/dL (32-36); Mean Corpuscular Hgb 30.5 pg (27.0-32.0); Mean Corpuscular Volume 90.1 fL (81-99); Mean Platelet Vol. 9.7 fl (6.2-12.0); Monocyte# 0.83 X10^3/uL; Monocyte% 7.8 % (0-10); NRBC Flagged by Analyzer 0 % (0-5); Neutrophil # 8.45 X10^3/uL (2.7-7.7); Neutrophil % 79.7 % (47-70); Platelet Count 269 K/mm3 (150-450); RBC Distribution Width CV 14.8 % (11.6-14.6); RBC Distribution Width SD 49.1 fl (35.1-43.9); Red Blood Count 4.06 M/mm3 (4.2-5.4); White Blood Count 10.6 K/mm3 (4.4-11.0)
[2021-04-11 17:48] LABS: ALB/GLOB Ratio 0.5 RATIO (0.9-2.4); AST(SGOT) 21 U/L (15-37); Alanine Aminotransfer ALT/SGPT 17 U/L (13-56); Albumin, Serum 2.5 g/dL (3.2-5.0); Alkaline Phosphatase 41 U/L (45-117); Anion Gap 10 (5-15); BUN 5 mg/dL (7-18); Calcium,Total 8.3 mg/dL (8.5-10.1); Chloride 95 mmol/L (98-107); Creatinine, Serum 0.63 mg/dL (0.55-1.02); EST Glomerular Filtration Rate 97 mL/min (>60); Est Glom Filt Rate - Afr Amer 117 mL/min (>60); Estimated Creatinine Clearance 32.95 ml/min; Globulin 4.6 g/dL (2.2-4.2); Glucose 110 mg/dL (74-106); Protein, Total 7.1 g/dL (6.4-8.2); Sodium Level 132 mmol/L (136-145)
[2021-04-11 17:50] LABS: Bacteria 0 SEEN /hpf (None Seen); Mucous, Urine 0 SEEN /hpf (<or=2+); Red Blood Cells-Urine 0 SEEN /hpf (0-5); Squamous Epithelial Cells - UA 0 SEEN /hpf (5-10); White Blood Cells 0 SEEN /hpf (0-5)
[2021-04-11 18:00] VITALS: BP 117/51; PULSE 72; RESP 16; TEMP 37; O2SAT 94
[2021-04-11] MEDS: 0.9% Normal Saline 1,000 ML 999 ML IV (18:04)
[2021-04-11 18:16] LABS: Color, Urine Yellow (Yellow); Glucose, Dipstick Normal (Normal); Ketone-Dipstick 15 mg/dl (Negative); Leukocyte Esterase-Dipstick Negative /ul (Negative); Nitrite-Dipstick Negative (Negative); Occult Blood-Urine Negative /ul (Negative); Protein-Dipstick Negative (Negative); Urine Bilirubin Dipstick Negative (Negative); Urine Clarity Clear (Clear); Urine Urobilinogen Normal (Normal); Urine pH 6.5 (5.0 - 8.0)
[2021-04-11] MEDS: Ciprofloxacin 400 MG/200 ML BAG 200 MG IV (18:44)
[2021-04-11] MEDS: Potassium Chloride Oral Tablet 20 MEQ 40 MEQ PO (19:14)
[2021-04-11] MEDS: Ondansetron 4 MG/2 ML Vial IV (19:14)
[2021-04-11] MEDS: metroNIDAZOLE 500 MG/100 ML BAG 100 MG IV (20:17)
[2021-04-11 21:46] VITALS: BP 124/63; PULSE 74; RESP 16; O2SAT 95
== END 2021-04-11 21:48 | disposition home or self-care (01) ==
PROVIDERS: Emergency Provider Emergency Medicine; PCP Family Medicine
DX: K57.32 Diverticulitis of large intestine without perforation or abscess without bleeding (principal); E87.6 Hypokalemia; I48.91 Unspecified atrial fibrillation; E78.5 Hyperlipidemia, unspecified; E05.90 Thyrotoxicosis, unspecified without thyrotoxic crisis or storm; H35.30 Unspecified macular degeneration; H40.9 Unspecified glaucoma; H91.93 Unspecified hearing loss, bilateral; G47.30 Sleep apnea, unspecified; Z79.890 Hormone replacement therapy; Z79.899 Other long term (current) drug therapy; Z86.73 Personal history of transient ischemic attack (TIA), and cerebral infarction without residual deficits
CPT/HCPCS: 74176; 80053; 81001; 85025; 96361; 96365; 96366; 96367; 96375; 99285; J0744; J2405

== ENCOUNTER → 2021-04-18 17:58 | Outpatient (CLI) | payer MEDICARE, SELFPAY ==
[2021-04-18 18:34] LABS: Absolute Lymphocyte Count 2.79 X10^3/uL (0.83-4.51); Absolute Neutrophil Count 5.1 X10^3/uL (2.0-7.7); Basophil# 0.06 X10^3/uL; Basophil% 0.7 % (0-1); Eosinophil# 0.08 X10^3/uL; Eosinophils% 0.9 % (0-5); Hematocrit 42.8 % (37-47); Hemoglobin 13.9 g/dL (12.0-15.0); Lymphocyte # 2.79 X10^3/ul (0.83-4.51); Lymphocyte % 31.1 % (19-41); Mean Corp Hgb Conc 32.5 g/dL (32-36); Mean Corpuscular Hgb 30.2 pg (27.0-32.0); Mean Corpuscular Volume 92.8 fL (81-99); Mean Platelet Vol. 9.6 fl (6.2-12.0); Monocyte# 0.94 X10^3/uL; Monocyte% 10.5 % (0-10); NRBC Flagged by Analyzer 0 % (0-5); Neutrophil # 5.05 X10^3/uL (2.7-7.7); Neutrophil % 56.1 % (47-70); Platelet Count 251 K/mm3 (150-450); RBC Distribution Width CV 14.9 % (11.6-14.6); RBC Distribution Width SD 51.3 fl (35.1-43.9); Red Blood Count 4.61 M/mm3 (4.2-5.4)
[2021-04-18 18:55] LABS: ALB/GLOB Ratio 0.6 RATIO (0.9-2.4); AST(SGOT) 38 U/L (15-37); Alanine Aminotransfer ALT/SGPT 21 U/L (13-56); Albumin, Serum 3.1 g/dL (3.2-5.0); Alkaline Phosphatase 49 U/L (45-117); Anion Gap 8 (5-15); BUN 5 mg/dL (7-18); BUN/Creat Ratio 5.9 RATIO (10-20); Calcium,Total 9.1 mg/dL (8.5-10.1); Chloride 98 mmol/L (98-107); Creatinine, Serum 0.84 mg/dL (0.55-1.02); EST Glomerular Filtration Rate 69 mL/min (>60); Est Glom Filt Rate - Afr Amer 83 mL/min (>60); Globulin 5.3 g/dL (2.2-4.2); Glucose 100 mg/dL (74-106); Protein, Total 8.4 g/dL (6.4-8.2); Sodium Level 131 mmol/L (136-145)
== END ==
PROVIDERS: PCP Family Medicine; Visit Provider Family Medicine
DX: K57.32 Diverticulitis of large intestine without perforation or abscess without bleeding (principal); E87.6 Hypokalemia
CPT/HCPCS: 36415; 80053; 83735; 85025; 87493

== ENCOUNTER → 2021-04-26 17:02 | Outpatient (CLI) | payer MEDICARE, SELFPAY ==
[2021-04-26 18:51] LABS: Anion Gap 12 (5-15); BUN 11 mg/dL (7-18); BUN/Creat Ratio 17.5 RATIO (10-20); Calcium,Total 8.9 mg/dL (8.5-10.1); Chloride 96 mmol/L (98-107); Creatinine, Serum 0.63 mg/dL (0.55-1.02); EST Glomerular Filtration Rate 97 mL/min (>60); Est Glom Filt Rate - Afr Amer 117 mL/min (>60); Glucose 102 mg/dL (74-106); Potassium 4.1 mmol/L (3.5-5.1); Sodium Level 131 mmol/L (136-145)
== END ==
PROVIDERS: PCP Family Medicine; Referring Provider Family Medicine; Visit Provider Family Medicine
DX: E87.1 Hypo-osmolality and hyponatremia (principal); K57.32 Diverticulitis of large intestine without perforation or abscess without bleeding
CPT/HCPCS: 36415; 80048

== ENCOUNTER 2021-04-29 11:05 | Emergency (ER) | payer MEDICARE, SELFPAY ==
[2021-04-29] VITALS (8 sets, daily range): BP systolic 107–148; BP diastolic 54–89; PULSE 77–85; RESP 15–18; TEMP 36.9; O2SAT 95–98; BMI 19.9
--- NOTE | 2021-04-29 11:43 | EKG12_ITS ---
Test Reason : SYNCOPE Blood Pressure : / mmHG Vent. Rate : 075 BPM Atrial Rate : 075 BPM P-R Int : 140 ms QRS Dur : 078 ms QT Int : 404 ms P-R-T Axes : 039 011 011 degrees QTc Int : 451 ms Normal sinus rhythm Normal ECG Confirmed by DEJA COELLO, GARETH ([id number]), licensed journeyman electrician KEYLA CASTELLANOS ([id number]) on 05/03/2021 8:44:34 AM Referred By: /BB Confirmed By:GARETH SHORT MD
[2021-04-29] MEDS: 0.9% Normal Saline 1,000 ML 1000 ML IV (12:06)
[2021-04-29 12:08] LABS: Absolute Lymphocyte Count 3.57 X10^3/uL (0.83-4.51); Absolute Neutrophil Count 7.7 X10^3/uL (2.0-7.7); Basophil# 0.06 X10^3/uL; Basophil% 0.5 % (0-1); Eosinophil# 0.09 X10^3/uL; Eosinophils% 0.7 % (0-5); Hematocrit 41.9 % (37-47); Hemoglobin 13.7 g/dL (12.0-15.0); Lymphocyte # 3.57 X10^3/ul (0.83-4.51); Lymphocyte % 28.1 % (19-41); Mean Corp Hgb Conc 32.7 g/dL (32-36); Mean Corpuscular Hgb 30.4 pg (27.0-32.0); Mean Corpuscular Volume 92.9 fL (81-99); Mean Platelet Vol. 10.1 fl (6.2-12.0); Monocyte# 1.11 X10^3/uL; Monocyte% 8.7 % (0-10); NRBC Flagged by Analyzer 0 % (0-5); Neutrophil # 7.74 X10^3/uL (2.7-7.7); Platelet Count 270 K/mm3 (150-450); RBC Distribution Width CV 15.2 % (11.6-14.6); RBC Distribution Width SD 52.1 fl (35.1-43.9); Red Blood Count 4.51 M/mm3 (4.2-5.4); White Blood Count 12.7 K/mm3 (4.4-11.0)
--- NOTE | 2021-04-29 12:15 | RAD_ITS ---
STUDY: X-RAY CHEST REASON FOR EXAM: Female, 81 years old. Sob TECHNIQUE: Single AP portable view of the chest. COMPARISON: Comparison is made with prior study dated 12/29/2017. FINDINGS: EKG electrodes are seen. The lungs are clear and expanded. There is no demonstrated pleural abnormality. There is borderline cardiomegaly. Normal mediastinum and alejandro. Normal visualized pulmonary arteries. There is atherosclerotic calcification of the aortic arch with tortuosity. There are degenerative changes of the visualized thoracic spine. Normal visualized ribs, clavicles, and shoulders. There is no demonstrated abnormality of the visualized soft tissue structures of the upper abdomen. RAD/Chest 1 View (Portable) IMPRESSION: No acute abnormality is seen. Electronically Signed: Emeka England MD at 12:31 EDT , Service support ,
[2021-04-29 12:24] LABS: ALB/GLOB Ratio 0.6 RATIO (0.9-2.4); AST(SGOT) 26 U/L (15-37); Alanine Aminotransfer ALT/SGPT 26 U/L (13-56); Albumin, Serum 3.1 g/dL (3.2-5.0); Alkaline Phosphatase 75 U/L (45-117); Anion Gap 5 (5-15); BUN 7 mg/dL (7-18); BUN/Creat Ratio 8.3 RATIO (10-20); Calcium,Total 9.3 mg/dL (8.5-10.1); Chloride 98 mmol/L (98-107); Creatinine, Serum 0.84 mg/dL (0.55-1.02); EST Glomerular Filtration Rate 69 mL/min (>60); Est Glom Filt Rate - Afr Amer 84 mL/min (>60); Estimated Creatinine Clearance 36.48 ml/min; Globulin 4.9 g/dL (2.2-4.2); Glucose 120 mg/dL (74-106); Potassium 4.3 mmol/L (3.5-5.1); Sodium Level 131 mmol/L (136-145); Troponin-I HS 11 pg/mL (3.0-54.0)
--- NOTE | 2021-04-29 12:45 | EX.ED.DYSGE1 ---
HPI History of Present Illness Chief Complaint: Syncope Informant: patient Narrative Narrative: 81-year-old female presenting after syncopal episode. Patient has recent history of diverticulitis treated with antibiotics. This was complicated by C. difficile. She now is on vancomycin for C. difficile. She has been having loose stools but states she is having less frequent stools. She has had nausea and vomiting today. She denies chest pain or shortness of breath. She had a syncopal episode at home with no injury. She had another syncopal episode in the waiting room with another episode of vomiting. 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 Tachycardia Home Medications bimatoprost 1 drp EACH EYE QHS 06/23/17 [History Last Taken 04/28/21] brimonidine 1 drp EACH EYE BID 06/23/17 [History Last Taken 04/29/21] budesonide 3 mg PO DAILY 06/23/17 [History Last Taken 04/29/21] hydroxychloroquine 200 mg PO DAILYCM 06/23/17 [History Last Taken 03/25/21] levothyroxine 75 mcg PO DAILY 06/23/17 [History Last Taken 04/29/21] timolol maleate 1 drp EACH EYE DAILY 06/23/17 [History Last Taken 03/28/21] metoprolol succinate 50 mg PO BID 06/04/19 [History Last Taken 04/29/21] cholecalciferol (vitamin D3) 2,000 unit PO DAILY 07/30/19 [History Last Taken 04/29/21] hydrocortisone 10 mg PO DAILY 07/31/19 [History Last Taken 3 Days Ago ~11/12/20] food supplemt, lactose-reduced 120 ml PO DAILY 10/22/20 [History Last Taken Unknown] ondansetron 4 mg PO Q8H PRN PRN #10 tablet 10/22/20 [Rx Last Taken 03/28/21] Eylea 2 mg INTRAVITREAL .[id number] 03/28/21 [History Last Taken 04/29/21] artificial tears solution 1 drp OPHTHALMIC (EYE) DAILY PRN 03/28/21 [History Last Taken Unknown] Creon 1 cap PO DAILY 04/29/21 [History Last Taken 04/29/21] potassium chloride 10 meq PO DAILY 04/29/21 [History Last Taken 04/29/21] vancomycin 125 mg PO TID 04/29/21 [History Last Taken 04/28/21] Allergy/AdvReac Type Severity Reaction Status Date / Time Penicillins [PCN] Allergy Hives Verified 04/29/21 11:07 azathioprine [From Imuran] AdvReac Vomiting Verified 04/29/21 11:07 griseofulvin AdvReac NEEDS Verified 04/29/21 11:07 [From Priti-PEG FOLLOW-UP (ultramicrosize)] PEPCID AdvReac Mild HALLUCINATI Uncoded 04/29/21 11:07 ONS Family History Father Heart disease Pacemaker Mother Heart disease Surgical History H/O cataract extraction h/o mass removed from hip H/O tubal ligation Hx of cholecystectomy Social History Smoking Status: Never smoker ROS ROS ED Constitutional Constitutional ED: Denies fever(s) Eyes Eyes: Denies change in vision ENT ENT ED: Denies rhinorrhea or sore throat Cardiovascular Cardiovascular: Denies chest pain or palpitations Respiratory/Chest Respiratory/Chest: Denies cough or dyspnea Gastrointestinal Gastrointestinal: Reports diarrhea, nausea and vomiting; Denies abdominal pain Genitourinary Genitourinary ED: Denies dysuria Musculoskeletal Musculoskeletal: Denies myalgias Integumentary Denies rash Neurologic Neurologic: Denies headache(s) Psychiatric Psychiatric: Denies suicidal thoughts EXAM Physical Exam Const Vital Signs: 04/29/21 11:07 04/29/21 12:16 04/29/21 13:43 Temperature 98.5 F Temperature Source Temporal Pulse Rate 83 77 Pulse Rate [Lying] Pulse Rate [Sitting] Pulse Rate [Standing] Respiratory Rate 16 15 Respiratory Pattern Normal Blood Pressure 107/54 L Blood Pressure [Lying] Blood Pressure [Sitting] Blood Pressure [Standing] Blood Pressure Mean 71 Blood Pressure Mean [Lying] Blood Pressure Mean [Sitting] Blood Pressure Mean [Standing] Pulse Ox 98 98 Oxygen Delivery Method Room Air Room Air 04/29/21 14:12 04/29/21 15:06 04/29/21 15:35 Temperature Temperature Source Pulse Rate 79 79 Pulse Rate [Lying] Pulse Rate [Sitting] Pulse Rate [Standing] Respiratory Rate 18 Respiratory Pattern Blood Pressure 120/61 139/59 H 129/61 H Blood Pressure [Lying] Blood Pressure [Sitting] Blood Pressure [Standing] Blood Pressure Mean 80 85 83 Blood Pressure Mean [Lying] Blood Pressure Mean [Sitting] Blood Pressure Mean [Standing] Pulse Ox 95 Oxygen Delivery Method Room Air 04/29/21 15:36 04/29/21 17:13 Temperature Temperature Source Pulse Rate 79 Pulse Rate [Lying] 79 Pulse Rate [Sitting] 82 Pulse Rate [Standing] 85 Respiratory Rate 16 Respiratory Pattern Blood Pressure 138/75 H Blood Pressure [Lying] 129/61 H Blood Pressure [Sitting] 148/60 H Blood Pressure [Standing] 146/64 H Blood Pressure Mean 96 Blood Pressure Mean [Lying] 83 Blood Pressure Mean [Sitting] 89 Blood Pressure Mean [Standing] 91 Pulse Ox 96 Oxygen Delivery Method Room Air Positive well nourished and well developed General Appearance ED: well developed HEENT Reports normocephalic and head/scalp atraumatic Eyes PERRL and EOMs intact bilaterally Neck supple General: Negative for tenderness Chest Wall inspection of chest normal Resp normal respiratory effort and clear to auscultation bilaterally Cardio regular rate and regular rhythm GI non-distended GI Narrative: Mild diffuse tenderness with no rebound or guarding Palpation: soft; Negative for guarding or rebound tenderness present no CVA tenderness Extremity normal to inspection Neuro oriented x3 Sensorium / Orientation: alert Psych mental status grossly normal MDM MDM MDM Narrative Medical decision making narrative: Patient was given IV fluids, Zofran. CBC shows white count 12.7. Chemistries show sodium 131 at her baseline. Urinalysis unremarkable. Troponin is negative. Chest x-ray read by myself and radiology shows no acute abnormality. CT abdomen pelvis shows sigmoid diverticulosis, enlarged uterus with thickening of the endometrium, possible endometrial polyp. Discussed with hospitalist due to 2 syncopal episodes today. Requests orthostatic vital signs. Orthostatics are negative. Patient has not vomited since her syncopal episode. Hospitalist does not feel she meets admission criteria at this time. Family is at bedside. Delta troponin was added on and is negative. CT head was added and shows no acute process. Family is able to stay with her tonight. Advised to follow-up with primary care physician. Advised to return to ED for worsening complaints. Lab Data Attestation: I reviewed the patient's lab results. Labs: Laboratory Results - last 24 hr 04/29/21 04/29/21 04/29/21 11:35 11:35 15:16 WBC 12.7 H RBC 4.51 Hgb 13.7 Hct 41.9 MCV 92.9 MCH 30.4 MCHC 32.7 RDW Std Deviation 52.1 H RDW Coeff of Samreen 15.2 H Plt Count 270 MPV 10.1 Immature Gran % (Auto) 1.000 H Neut % (Auto) 61.0 Lymph % (Auto) 28.1 [place] % (Auto) 8.7 Eos % (Auto) 0.7 Baso % (Auto) 0.5 Absolute Neuts (auto) 7.7 Absolute Lymphs (auto) 3.57 Nucleated RBC % 0 Sodium 131 L Potassium 4.3 Chloride 98 Carbon Dioxide 28.0 Anion Gap 5 BUN 7 Creatinine 0.84 Estim Creat Clear Calc 36.48 Est GFR (MDRD) Af Amer 84 Est GFR (MDRD) Non-Af 69 BUN/Creatinine Ratio 8.3 L Glucose 120 H Calcium 9.3 Total Bilirubin 1.00 AST 26 ALT 26 Alkaline Phosphatase 75 Troponin I High Sens 11 Total Protein 8.0 Albumin 3.1 L Globulin 4.9 H Albumin/Globulin Ratio 0.6 L Urine Color Yellow Urine Clarity Clear Urine pH 6.0 Ur Specific [place] 1.005 Urine Protein Negative Urine Glucose (UA) Normal Urine Ketones Negative Urine Occult Blood Negative Urine Nitrite Negative Urine Bilirubin Negative Urine Urobilinogen Normal Ur Leukocyte Esterase Negative Urine RBC 0 SEEN Urine WBC 0-5 SEEN Ur Squamous Epith Cells 0 SEEN Urine Bacteria 0 SEEN Urine Mucus 0 SEEN 04/29/21 16:35 WBC RBC Hgb Hct MCV MCH MCHC RDW Std Deviation RDW Coeff of Samreen Plt Count MPV Immature Gran % (Auto) Neut % (Auto) Lymph % (Auto) [place] % (Auto) Eos % (Auto) Baso % (Auto) Absolute Neuts (auto) Absolute Lymphs (auto) Nucleated RBC % Sodium Potassium Chloride Carbon Dioxide Anion Gap BUN Creatinine Estim Creat Clear Calc Est GFR (MDRD) Af Amer Est GFR (MDRD) Non-Af BUN/Creatinine Ratio Glucose Calcium Total Bilirubin AST ALT Alkaline Phosphatase Troponin I High Sens 12 Total Protein Albumin Globulin Albumin/Globulin Ratio Urine Color Urine Clarity Urine pH Ur Specific [place] Urine Protein Urine Glucose (UA) Urine Ketones Urine Occult Blood Urine Nitrite Urine Bilirubin Urine Urobilinogen Ur Leukocyte Esterase Urine RBC Urine WBC Ur Squamous Epith Cells Urine Bacteria Urine Mucus Radiography Chest X-Ray - ED: 1 View, Read by ED Physician and Read by Radiologist Diagnostic Testing: Clinical Impression(s) from Imaging Studies Chest X-Ray 04/29/21 12:15 IMPRESSION: No acute abnormality is seen. Electronically Signed: Emeka England MD at 12:31 EDT , Service support , Abdomen/Pelvis CT 04/29/21 13:46 IMPRESSION: Sigmoid diverticulosis. Enlarged uterus with thickening of the endometrium. Possible endometrial polyp. Status post cholecystectomy. Electronically Signed: Emeka England MD at 14:58 EDT , Service support , Brain CT 04/29/21 16:27 IMPRESSION: No acute findings in the head/brain. Individualized dose optimization techniques were used for this CT. at 1747 Reported and signed by: Gerry Reich MD Electronically Signed: Gerry Reich MD at 17:46 EDT Tel , Service support , EKG Initial EKG: Attestation: I personally reviewed and interpreted this EKG as follows: Interpretation: Sinus Rhythm and No Acute Injury Pattern Discharge Plan Triage Chief Complaint: Syncope ED Provider: Brandy Dodd Dx/Rx/DC Orders Clinical Impression: Syncope Instructions: ED Fainting, Uncertain Cause Prescriptions: No Action levothyroxine 75 MCG tablet 75 mcg PO DAILY RF: 0 budesonide 3 MG capsule,delayed,extend.release 3 mg PO DAILY RF: 0 hydroxychloroquine 200 MG tablet 200 mg PO DAILYCM RF: 0 brimonidine 1 DROP bottle 1 drp EACH EYE BID RF: 0 bimatoprost 1 DROP bottle 1 drp EACH EYE QHS RF: 0 timolol maleate 1 DROP drops 1 drp EACH EYE DAILY RF: 0 metoprolol succinate 50 MG tablet extended release 24 hr 50 mg PO BID RF: 0 cholecalciferol (vitamin D3) 2,000 UNIT capsule 2,000 unit PO DAILY RF: 0 hydrocortisone 5 MG tablet 10 mg PO DAILY RF: 0 food supplemt, lactose-reduced 120 ML liquid 120 ml PO DAILY RF: 0 ondansetron 4 MG tablet 4 mg PO Q8H PRN PRN (Reason: Nausea) Qty: 10 RF: 0 artificial tears solution Drops 1 drp OPHTHALMIC (EYE) DAILY PRN (Reason: Dry Eye(S)) RF: 0 Eylea 2 mg/0.05 mL Syringe 2 mg INTRAVITREAL .[id number] RF: 0 vancomycin 125 mg capsule 125 mg PO TID RF: 0 potassium chloride 10 mEq tablet,ER particles/crystals 10 meq PO DAILY RF: 0 Creon 12,000-38,000 -60,000 unit capsule,delayed release(DR/EC) 1 cap PO DAILY RF: 0 Primary Care Provider: Ashvin Cardenas Referrals: Ashvin Cardenas MD [Primary Care Provider] - Disposition Disposition: Home, Self Care
--- NOTE | 2021-04-29 13:46 | CT_ITS ---
STUDY: CT ABDOMEN AND PELVIS WITH CONTRAST REASON FOR EXAM: Female, 81 years old. Abdominal pain. History of lupus. RADIATION DOSAGE (If Supplied By Facility): CTDIvol = ( 17.70 ) mGy, DLP = ( 262.58 ) mGycm TECHNIQUE: Transaxial images were obtained from the dome of the diaphragm to the symphysis pubis without oral contrast. IV 100mL Isovue-[id number] was administered. Sagittal and coronal images were reconstructed. Individualized dose optimization techniques were used for this CT. COMPARISON: Comparison is made with prior study dated 04/11/2021. FINDINGS: Minimal linear scarring and/or atelectasis at the lung bases. Coronary artery calcification. Calcification of the mitral valve annulus. Normal liver. The patient is status post cholecystectomy. Normal spleen. There are pancreatic calcifications in the distribution of the ducts consistent with chronic pancreatitis. Normal bilateral adrenal glands. Normal right kidney. Normal left kidney. Normal visualized stomach. Findings suggestive of a duodenal diverticula along the second and third portions of the duodenum. There are multiple colonic diverticula consistent with diverticulosis. The appendix is visualized and appears normal. Normal abdominal aorta. Normal inferior vena cava. Normal retroperitoneum. Normal urinary bladder. Enlarged uterus with thickening of the endometrium. Normal abdominal wall. There are mild degenerative changes of the visualized lumbar spine. CT/Abdomen/Pelvis W IV Cont ONLY IMPRESSION: Sigmoid diverticulosis. Enlarged uterus with thickening of the endometrium. Possible endometrial polyp. Status post cholecystectomy. Electronically Signed: Emeka England MD at 14:58 EDT , Service support ,
[2021-04-29 15:20] LABS: Bacteria 0 SEEN /hpf (None Seen); Mucous, Urine 0 SEEN /hpf (<or=2+); Red Blood Cells-Urine 0 SEEN /hpf (0-5); Squamous Epithelial Cells - UA 0 SEEN /hpf (5-10)
[2021-04-29 15:29] LABS: Color, Urine Yellow (Yellow); Glucose, Dipstick Normal (Normal); Ketone-Dipstick Negative (Negative); Leukocyte Esterase-Dipstick Negative /ul (Negative); Nitrite-Dipstick Negative (Negative); Occult Blood-Urine Negative /ul (Negative); Protein-Dipstick Negative (Negative); Specific Gravity, Urine 1.005 (1.002-1.030); Urine Bilirubin Dipstick Negative (Negative); Urine Clarity Clear (Clear); Urine Urobilinogen Normal (Normal)
[2021-04-29 15:46] LABS: White Blood Cells 0-5 SEEN /hpf (0-5)
--- NOTE | 2021-04-29 16:27 | CT_ITS ---
EXAM: CT HEAD WITHOUT INTRAVENOUS CONTRAST : 1940 CLINICAL INDICATION: syncope HAD CONTRAST EARLIER @1415 TECHNIQUE: Multiple axial images were obtained of the head without intravenous contrast. This CT exam was performed using one or more of the following dose reduction techniques: automated exposure control, adjustment of the mA and/or kV according to patient size, and/or use of iterative reconstruction technique. This report was created using [employer] report generation technology. COMPARISON: None. FINDINGS: BRAIN AND EXTRA-AXIAL SPACES: Unremarkable. No intra- or extra-axial hemorrhage. No evidence of acute infarct. No intracranial mass or mass effect. There is preservation of the cheatham/white matter interface. Posterior fossa structures are unremarkable. Ventricles are appropriate for age. No hydrocephalus. Basal cisterns are patent. BONES/JOINTS: Unremarkable. No discrete lytic or blastic abnormalities. VASCULATURE: There is contrast in the vascular system from a previously enhanced CT scan. SINUSES: Unremarkable as visualized. Clear. MASTOID AIR CELLS: Unremarkable. Clear. ORBITS: Visualized globes, extraocular muscles, optic nerves and retrobulbar fat appear unremarkable. CT/Brain/Head without Contrast IMPRESSION: No acute findings in the head/brain. Individualized dose optimization techniques were used for this CT. at 1747 Reported and signed by: Gerry Reich MD Electronically Signed: Gerry Reich MD at 17:46 EDT Tel , Service support ,
[2021-04-29 16:57] LABS: Troponin-I HS 12 pg/mL (3.0-54.0)
== END 2021-04-29 18:26 | disposition home or self-care (01) ==
PROVIDERS: Emergency Provider Emergency Medicine; PCP Family Medicine
DX: R55 Syncope and collapse (principal); R11.2 Nausea with vomiting, unspecified; Z20.822 Contact with and (suspected) exposure to COVID-19; I48.91 Unspecified atrial fibrillation; E05.90 Thyrotoxicosis, unspecified without thyrotoxic crisis or storm; E78.5 Hyperlipidemia, unspecified; H40.9 Unspecified glaucoma; H91.93 Unspecified hearing loss, bilateral; Z79.890 Hormone replacement therapy; Z79.899 Other long term (current) drug therapy
CPT/HCPCS: 70450; 71045; 74177; 80053; 81001; 84484; 85025; 87426; 93005; 96361; 96374; 99285; J7030; Q9967; A4216

== ENCOUNTER → 2021-05-24 13:09 | Outpatient (CLI) | payer MEDICARE, SELFPAY ==
--- NOTE | 2021-05-24 13:17 | US_ITS ---
STUDY: ULTRASOUND OF THE FEMALE PELVIS - COMPLETE REASON FOR EXAM: Female, 81 years old. ENDOMETRIAL THICKENING ON CT LMP: Patient is postmenopausal. TECHNIQUE: Transvaginal TECHNICAL QUALITY: Adequate. COMPARISON: Comparison is made with prior CT scan dated 04/29/2021. FINDINGS: The uterus is anteverted and is in a midline position. The uterus measures 7.5 cm x 5.4 cm x 3.8 cm. Normal uterine cervix. The endometrium is thickened and measures 9 mm in thickness, and is fluid distended. There is a 1.7 cm x 1.1 cm x 0.7 cm polypoid lesion suggestive of endometrial polyp. There is no demonstrated endometrial mass. Calcified fibroid is seen measuring 1.2 cm x 1.1 cm x 1.2 cm I.U.D. - The patient does not have an I.U.D. The right ovary is visualized. The right ovary measures 1.2 cm x 1.4 cm x 2.7 cm. A 5 mm x 8 mm x 5 mm focal calcification is seen within the ovary. There is no visualized right adnexal mass or complex lesion. There is normal arterial and normal venous vascularity. The left ovary is non-visualized. There is no fluid in the cul-de-sac. US/Transvaginal Non- IMPRESSION: Thickened fluid distended endometrium with findings suggestive of a 1.7 cm x 1.1 cm x 0.7 cm polyp. Fibroid uterus. Electronically Signed: Emeka England MD at 15:28 EST , Service support ,
== END ==
PROVIDERS: PCP Family Medicine; Referring Provider Family Medicine; Visit Provider Family Medicine
DX: R93.89 Abnormal findings on diagnostic imaging of other specified body structures (principal)
CPT/HCPCS: 76830

== ENCOUNTER → 2021-06-06 | Outpatient (CLI) | payer MEDICARE, SELFPAY ==
[2021-06-06 18:16] LABS: Absolute Lymphocyte Count 1.91 X10^3/uL (0.83-4.51); Absolute Neutrophil Count 7.2 X10^3/uL (2.0-7.7); Basophil# 0.03 X10^3/uL; Basophil% 0.3 % (0-1); Eosinophil# 0.05 X10^3/uL; Eosinophils% 0.5 % (0-5); Hematocrit 42.4 % (37-47); Hemoglobin 13.5 g/dL (12.0-15.0); Lymphocyte # 1.91 X10^3/ul (0.83-4.51); Lymphocyte % 19.5 % (19-41); Mean Corp Hgb Conc 31.8 g/dL (32-36); Mean Corpuscular Hgb 30.5 pg (27.0-32.0); Mean Corpuscular Volume 95.9 fL (81-99); Mean Platelet Vol. 10.1 fl (6.2-12.0); Monocyte# 0.54 X10^3/uL; Monocyte% 5.5 % (0-10); NRBC Flagged by Analyzer 0 % (0-5); Neutrophil # 7.16 X10^3/uL (2.7-7.7); Neutrophil % 73.4 % (47-70); Platelet Count 193 K/mm3 (150-450); RBC Distribution Width CV 16.7 % (11.6-14.6); RBC Distribution Width SD 59.1 fl (35.1-43.9); Red Blood Count 4.42 M/mm3 (4.2-5.4); White Blood Count 9.8 K/mm3 (4.4-11.0)
[2021-06-06 18:56] LABS: ALB/GLOB Ratio 0.7 RATIO (0.9-2.4); AST(SGOT) 31 U/L (15-37); Alanine Aminotransfer ALT/SGPT 29 U/L (13-56); Albumin, Serum 3.4 g/dL (3.2-5.0); Alkaline Phosphatase 69 U/L (45-117); Anion Gap 8 (5-15); BUN 14 mg/dL (7-18); BUN/Creat Ratio 15.2 RATIO (10-20); Calcium,Total 8.9 mg/dL (8.5-10.1); Chloride 99 mmol/L (98-107); Creatinine, Serum 0.92 mg/dL (0.55-1.02); EST Glomerular Filtration Rate 62 mL/min (>60); Est Glom Filt Rate - Afr Amer 75 mL/min (>60); Globulin 4.8 g/dL (2.2-4.2); Glucose 128 mg/dL (74-106); LDH 288 U/L (84-246); Potassium 4.1 mmol/L (3.5-5.1); Protein, Total 8.2 g/dL (6.4-8.2); Sodium Level 136 mmol/L (136-145)
[2021-06-06 19:08] LABS: Erythrocyte Sedimentation Rate 11 mm/hr (0-30)
[2021-06-10 15:08] LABS: Albumin 3.7 g/dL (2.9-4.4); Alpha-1-Globulins 0.3 g/dL (0.0-0.4); Free Kappa Light Chains 28.7 mg/L (3.3-19.4); Free Lambda Light Chains 21.7 mg/L (5.7-26.3); Gamma Globulin 1.9 g/dL (0.4-1.8); Immunoglobulin A 208 mg/dL (64-422); Immunoglobulin G 2024 mg/dL (586-1602); Immunoglobulin M 30 mg/dL (26-217)
== END | disposition home or self-care (01) ==
LOC: MTLAB 16:44
PROVIDERS: PCP Family Medicine; Referring Provider Internal Medicine Medical Oncology; Visit Provider Internal Medicine Medical Oncology
DX: K75.4 Autoimmune hepatitis (principal); D47.2 Monoclonal gammopathy
CPT/HCPCS: 36415; 80053; 82784; 83615; 83883; 84165; 85025; 85652; 86334

== ENCOUNTER → 2021-06-30 16:35 | Outpatient (CLI) | payer MEDICARE, SELFPAY ==
--- NOTE | 2021-06-30 16:38 | RAD_ITS ---
STUDY: X-RAY CHEST REASON FOR EXAM: Female, 81 years old. LEFT UPPER LOBE PNEUMONIA TECHNIQUE: PA and lateral views of the chest. COMPARISON: 04/29/2021 FINDINGS: The lungs are clear and expanded. There is no demonstrated pleural abnormality. Normal size heart. Normal mediastinum and alejandro. Normal visualized pulmonary arteries. Normal visualized aortic arch and descending thoracic aorta. There is a dextroscoliosis of the thoracic spine. Normal visualized ribs, clavicles, and shoulders. There is no demonstrated abnormality of the visualized soft tissue structures of the upper abdomen. RAD/Chest PA and Lateral IMPRESSION: Normal x-ray examination of the chest. Electronically Signed: Alexis Caban MD at 17:04 EST Tel , Service support ,
[2021-06-30 17:33] LABS: Absolute Lymphocyte Count 1.21 X10^3/uL (0.83-4.51); Absolute Neutrophil Count 6.3 X10^3/uL (2.0-7.7); Basophil# 0.03 X10^3/uL; Basophil% 0.3 % (0-1); Eosinophil# 0.02 X10^3/uL; Eosinophils% 0.2 % (0-5); Hematocrit 45.2 % (37-47); Hemoglobin 15.1 g/dL (12.0-15.0); Lymphocyte # 1.21 X10^3/ul (0.83-4.51); Lymphocyte % 14.1 % (19-41); Mean Corp Hgb Conc 33.4 g/dL (32-36); Mean Corpuscular Hgb 31.5 pg (27.0-32.0); Mean Corpuscular Volume 94.4 fL (81-99); Mean Platelet Vol. 10.1 fl (6.2-12.0); Monocyte# 0.99 X10^3/uL; Monocyte% 11.5 % (0-10); NRBC Flagged by Analyzer 0 % (0-5); Neutrophil # 6.26 X10^3/uL (2.7-7.7); Neutrophil % 73.1 % (47-70); Platelet Count 145 K/mm3 (150-450); RBC Distribution Width CV 16.1 % (11.6-14.6); RBC Distribution Width SD 56.3 fl (35.1-43.9); Red Blood Count 4.79 M/mm3 (4.2-5.4); White Blood Count 8.6 K/mm3 (4.4-11.0)
[2021-06-30 17:48] LABS: ALB/GLOB Ratio 0.7 RATIO (0.9-2.4); AST(SGOT) 19 U/L (15-37); Alanine Aminotransfer ALT/SGPT 28 U/L (13-56); Albumin, Serum 3.4 g/dL (3.2-5.0); Alkaline Phosphatase 63 U/L (45-117); Anion Gap 10 (5-15); BUN 12 mg/dL (7-18); BUN/Creat Ratio 14.7 RATIO (10-20); Calcium,Total 8.8 mg/dL (8.5-10.1); Chloride 97 mmol/L (98-107); Creatinine, Serum 0.82 mg/dL (0.55-1.02); EST Glomerular Filtration Rate 71 mL/min (>60); Est Glom Filt Rate - Afr Amer 87 mL/min (>60); Globulin 4.7 g/dL (2.2-4.2); Glucose 111 mg/dL (74-106); Lipase 58 U/L (73-393); Potassium 3.6 mmol/L (3.5-5.1); Protein, Total 8.1 g/dL (6.4-8.2); Sodium Level 132 mmol/L (136-145)
== END ==
PROVIDERS: PCP Family Medicine; Referring Provider Family Medicine; Visit Provider Family Medicine
DX: J18.9 Pneumonia, unspecified organism (principal); J06.9 Acute upper respiratory infection, unspecified
CPT/HCPCS: 36415; 71046; 80053; 83690; 85025; 87633; 87635; U0005; U0003

== ENCOUNTER → 2021-11-07 | Outpatient (CLI) | payer MEDICARE, SELFPAY ==
[2021-11-07 15:10] LABS: Absolute Lymphocyte Count 1.93 X10^3/uL (0.83-4.51); Absolute Neutrophil Count 9.5 X10^3/uL (2.0-7.7); Basophil# 0.03 X10^3/uL; Basophil% 0.2 % (0-1); Eosinophil# 0.04 X10^3/uL; Eosinophils% 0.3 % (0-5); Hematocrit 41.6 % (37-47); Hemoglobin 13.7 g/dL (12.0-15.0); Lymphocyte # 1.93 X10^3/ul (0.83-4.51); Lymphocyte % 15.4 % (19-41); Mean Corp Hgb Conc 32.9 g/dL (32-36); Mean Corpuscular Hgb 30.5 pg (27.0-32.0); Mean Corpuscular Volume 92.7 fL (81-99); Mean Platelet Vol. 10.4 fl (6.2-12.0); Monocyte# 0.98 X10^3/uL; Monocyte% 7.8 % (0-10); NRBC Flagged by Analyzer 0 % (0-5); Neutrophil # 9.45 X10^3/uL (2.7-7.7); Neutrophil % 75.3 % (47-70); Platelet Count 173 K/mm3 (150-450); RBC Distribution Width CV 15.6 % (11.6-14.6); RBC Distribution Width SD 53.1 fl (35.1-43.9); Red Blood Count 4.49 M/mm3 (4.2-5.4); White Blood Count 12.6 K/mm3 (4.4-11.0)
[2021-11-07 15:30] LABS: ALB/GLOB Ratio 0.7 RATIO (0.9-2.4); AST(SGOT) 19 U/L (15-37); Alanine Aminotransfer ALT/SGPT 29 U/L (13-56); Alkaline Phosphatase 63 U/L (45-117); Amylase 26 U/L (25-115); Anion Gap 8 (5-15); BUN 14 mg/dL (7-18); BUN/Creat Ratio 18.2 RATIO (10-20); Calcium,Total 8.7 mg/dL (8.5-10.1); Chloride 98 mmol/L (98-107); Creatinine, Serum 0.77 mg/dL (0.55-1.02); EST Glomerular Filtration Rate 76 mL/min (>60); Est Glom Filt Rate - Afr Amer 93 mL/min (>60); Globulin 4.4 g/dL (2.2-4.2); Glucose 105 mg/dL (74-106); Lipase 64 U/L (73-393); Potassium 4.2 mmol/L (3.5-5.1); Protein, Total 7.4 g/dL (6.4-8.2); Sodium Level 129 mmol/L (136-145)
== END | disposition home or self-care (01) ==
LOC: MTLAB 12:34
PROVIDERS: PCP Family Medicine; Referring Provider Family Medicine; Visit Provider Family Medicine
DX: R10.9 Unspecified abdominal pain (principal)
CPT/HCPCS: 36415; 80053; 82150; 83690; 85025; 86140

== ENCOUNTER → 2021-11-18 | Outpatient (CLI) | payer MEDICARE, SELFPAY ==
[2021-11-18 14:55] LABS: Absolute Lymphocyte Count 2.15 X10^3/uL (0.83-4.51); Absolute Neutrophil Count 8.5 X10^3/uL (2.0-7.7); Basophil# 0.06 X10^3/uL; Basophil% 0.5 % (0-1); Eosinophil# 0.04 X10^3/uL; Eosinophils% 0.3 % (0-5); Hematocrit 45.6 % (37-47); Hemoglobin 14.9 g/dL (12.0-15.0); Lymphocyte # 2.15 X10^3/ul (0.83-4.51); Lymphocyte % 18.2 % (19-41); Mean Corp Hgb Conc 32.7 g/dL (32-36); Mean Corpuscular Hgb 30.5 pg (27.0-32.0); Mean Corpuscular Volume 93.3 fL (81-99); Mean Platelet Vol. 10.7 fl (6.2-12.0); Monocyte% 7.6 % (0-10); NRBC Flagged by Analyzer 0 % (0-5); Neutrophil # 8.45 X10^3/uL (2.7-7.7); Neutrophil % 71.5 % (47-70); Platelet Count 137 K/mm3 (150-450); RBC Distribution Width CV 15.9 % (11.6-14.6); RBC Distribution Width SD 54.4 fl (35.1-43.9); Red Blood Count 4.89 M/mm3 (4.2-5.4); White Blood Count 11.8 K/mm3 (4.4-11.0)
[2021-11-18 15:24] LABS: ALB/GLOB Ratio 0.7 RATIO (0.9-2.4); AST(SGOT) 19 U/L (15-37); Alanine Aminotransfer ALT/SGPT 25 U/L (13-56); Alkaline Phosphatase 44 U/L (45-117); Anion Gap 10 (5-15); BUN 9 mg/dL (7-18); BUN/Creat Ratio 11.6 RATIO (10-20); Calcium,Total 8.5 mg/dL (8.5-10.1); Chloride 96 mmol/L (98-107); Creatinine, Serum 0.78 mg/dL (0.55-1.02); EST Glomerular Filtration Rate 76 mL/min (>60); Est Glom Filt Rate - Afr Amer 91 mL/min (>60); Globulin 4.1 g/dL (2.2-4.2); Glucose 101 mg/dL (74-106); Potassium 3.4 mmol/L (3.5-5.1); Protein, Total 7.1 g/dL (6.4-8.2); Sodium Level 130 mmol/L (136-145)
== END | disposition home or self-care (01) ==
LOC: MFPLAB 12:09
PROVIDERS: PCP Family Medicine; Referring Provider Family Medicine; Visit Provider Registered Nurse
DX: R19.7 Diarrhea, unspecified (principal); R10.9 Unspecified abdominal pain
CPT/HCPCS: 36415; 80053; 85025; 87493; 87506

== ENCOUNTER → 2021-11-18 | Outpatient (CLI) | payer MEDICARE, SELFPAY ==
--- NOTE | 2021-11-18 12:43 | CT_ITS ---
STUDY: CT ABDOMEN WITHOUT CONTRAST REASON FOR EXAM: Female, 81 years old. STAT, abdominal pain, nausea, vomiting x2 weeks RADIATION DOSAGE (If Supplied By Facility): CTDIvol = ( 7.84 ) mGy, DLP = ( 209.88 ) mGycm TECHNIQUE: Transaxial images were obtained without intravenous contrast, and without oral contrast. Sagittal and coronal images were reconstructed. Individualized dose optimization techniques were used for this CT. COMPARISON: Comparison is made with prior study 04/29/2021. FINDINGS: Stable minimal increased linear markings at the lung bases suggestive of scarring. Coronary artery calcification. Calcification of the mitral valve annulus. Normal liver. The patient is status post cholecystectomy. Normal spleen. There are pancreatic calcifications in the distribution of the ducts consistent with chronic pancreatitis. Normal bilateral adrenal glands. Normal right kidney. Normal left kidney. There is a small hiatal hernia. Normal small intestine. Stable duodenal diverticulum. Diffuse colonic diverticulosis. There is non-visualization of the appendix. There is diffuse atherosclerotic calcification of the abdominal aorta and its major visceral branches, without a demonstrated aneurysm. Normal inferior vena cava. Normal retroperitoneum. Normal abdominal wall. There are degenerative changes of the visualized lumbar spine. CT/Abdomen without IV Contrast IMPRESSION: Diffuse colonic diverticulosis. Pancreatic calcifications from chronic pancreatitis. Electronically Signed: Emeka England MD at 13:13 EDT ,
== END | disposition home or self-care (01) ==
LOC: CT 12:34
PROVIDERS: PCP Family Medicine; Referring Provider Registered Nurse; Visit Provider Registered Nurse
DX: R10.9 Unspecified abdominal pain (principal); R19.7 Diarrhea, unspecified
CPT/HCPCS: 36415; 74150; 80053; 85025; 87493; 87506

== ENCOUNTER → 2021-12-05 | Outpatient (CLI) | payer MEDICARE, SELFPAY ==
--- NOTE | 2021-12-05 15:34 | RAD_ITS ---
EXAM: XR LEFT ANKLE COMPLETE, 3 OR MORE VIEWS CLINICAL INDICATION: SWELLING TECHNIQUE: Frontal, lateral and oblique views of the left ankle. This report was created using [employer] report generation technology. COMPARISON: None. FINDINGS: BONES/JOINTS: There is a calcaneal spur. No acute fracture. No subluxation. Normal alignment. Preservation of the joint space. No sclerotic or destructive changes observed. SOFT TISSUES: Unremarkable. No soft tissue swelling or gas. No radiopaque foreign body. VASCULATURE: There are atherosclerotic vascular calcifications. RAD/Ankle min 3 Views IMPRESSION: No acute findings in the left ankle. Electronically Signed: Joe Judge MD at 16:28 EDT ,
[2021-12-05 17:49] LABS: Absolute Lymphocyte Count 1.76 X10^3/uL (0.83-4.51); Absolute Neutrophil Count 8.7 X10^3/uL (2.0-7.7); Basophil# 0.05 X10^3/uL; Basophil% 0.4 % (0-1); Eosinophil# 0.05 X10^3/uL; Eosinophils% 0.4 % (0-5); Hematocrit 44.3 % (37-47); Hemoglobin 14.6 g/dL (12.0-15.0); Lymphocyte # 1.76 X10^3/ul (0.83-4.51); Lymphocyte % 15.3 % (19-41); Mean Corpuscular Hgb 31.3 pg (27.0-32.0); Mean Corpuscular Volume 94.9 fL (81-99); Mean Platelet Vol. 9.8 fl (6.2-12.0); NRBC Flagged by Analyzer 0 % (0-5); Neutrophil # 8.66 X10^3/uL (2.7-7.7); Neutrophil % 75.4 % (47-70); Platelet Count 241 K/mm3 (150-450); RBC Distribution Width CV 15.8 % (11.6-14.6); RBC Distribution Width SD 55.4 fl (35.1-43.9); Red Blood Count 4.67 M/mm3 (4.2-5.4); White Blood Count 11.5 K/mm3 (4.4-11.0)
[2021-12-05 18:19] LABS: Anion Gap 7 (5-15); BUN 13 mg/dL (7-18); BUN/Creat Ratio 16.2 RATIO (10-20); Calcium,Total 9.3 mg/dL (8.5-10.1); Chloride 100 mmol/L (98-107); EST Glomerular Filtration Rate 73 mL/min (>60); Est Glom Filt Rate - Afr Amer 88 mL/min (>60); Glucose 112 mg/dL (74-106); Potassium 4.1 mmol/L (3.5-5.1); Sodium Level 132 mmol/L (136-145); Thyroid Stim Hormone (TSH) 1.93 uIU/mL (0.358-3.74); Uric Acid 6.1 mg/dL (2.6-6.0)
[2021-12-05 18:29] LABS: Erythrocyte Sedimentation Rate 30 mm/hr (0-30)
== END | disposition home or self-care (01) ==
LOC: MTLAB 15:33
PROVIDERS: PCP Family Medicine; Referring Provider Family Medicine; Visit Provider Family Medicine
DX: E03.9 Hypothyroidism, unspecified (principal); M32.9 Systemic lupus erythematosus, unspecified; M25.475 Effusion, left foot; E87.1 Hypo-osmolality and hyponatremia
CPT/HCPCS: 36415; 73610; 80048; 84443; 84550; 85025; 85652

== ENCOUNTER 2021-12-16 07:39 | Outpatient (CLI) | payer MEDICARE, SELFPAY ==
[2021-12-16 10:07] LABS: Absolute Neutrophil Count 7.3 X10^3/uL (2.0-7.7); Basophil# 0.02 X10^3/uL; Basophil% 0.2 % (0-1); Hematocrit 43.6 % (37-47); Lymphocyte % 12.4 % (19-41); Mean Corp Hgb Conc 32.1 g/dL (32-36); Mean Corpuscular Hgb 30.5 pg (27.0-32.0); Mean Platelet Vol. 10.5 fl (6.2-12.0); Monocyte# 0.39 X10^3/uL; Monocyte% 4.4 % (0-10); NRBC Flagged by Analyzer 0 % (0-5); Neutrophil # 7.28 X10^3/uL (2.7-7.7); Neutrophil % 82.1 % (47-70); Platelet Count 143 K/mm3 (150-450); RBC Distribution Width SD 55.8 fl (35.1-43.9); Red Blood Count 4.59 M/mm3 (4.2-5.4); White Blood Count 8.9 K/mm3 (4.4-11.0)
[2021-12-16 10:47] LABS: ALB/GLOB Ratio 0.7 RATIO (0.9-2.4); AST(SGOT) 16 U/L (15-37); Alanine Aminotransfer ALT/SGPT 26 U/L (13-56); Albumin, Serum 3.1 g/dL (3.2-5.0); Alkaline Phosphatase 55 U/L (45-117); Anion Gap 8 (5-15); BUN 12 mg/dL (7-18); BUN/Creat Ratio 18.1 RATIO (10-20); Chloride 101 mmol/L (98-107); Creatinine, Serum 0.66 mg/dL (0.55-1.02); EST Glomerular Filtration Rate 91 mL/min (>60); Est Glom Filt Rate - Afr Amer 110 mL/min (>60); Globulin 4.2 g/dL (2.2-4.2); Glucose 145 mg/dL (74-106); Protein, Total 7.3 g/dL (6.4-8.2); Sodium Level 134 mmol/L (136-145)
== END 2021-12-16 23:59 | disposition home or self-care (01) ==
PROVIDERS: PCP Family Medicine; Referring Provider Family Medicine; Visit Provider Family Medicine
DX: M10.9 Gout, unspecified (principal); M19.90 Unspecified osteoarthritis, unspecified site; Z79.52 Long term (current) use of systemic steroids
CPT/HCPCS: 36415; 80053; 85025; 86140

== ENCOUNTER 2022-01-11 12:35 | Inpatient (IN) | payer MEDICARE, SELFPAY ==
[2022-01-11] VITALS (10 sets, daily range): BP systolic 101–160; BP diastolic 36–64; PULSE 65–91; RESP 13–18; TEMP 36.6–37.5; O2SAT 96–100; BMI 22.6; BMI 23.4
--- NOTE | 2022-01-11 13:21 | CT_ITS ---
STUDY: CT ABDOMEN AND PELVIS WITH CONTRAST REASON FOR EXAM: Female, 81 years old. Abdominal pain. HISTORY OF AUTOIMMUNE HEPATITIS. CHOLECYSTECTOMY RADIATION DOSAGE (If Supplied By Facility): CTDIvol = ( 8.05 ) mGy, DLP = ( 291.31 ) mGycm TECHNIQUE: Transaxial images were obtained from the dome of the diaphragm to the symphysis pubis without oral contrast. IV 75mL [id number]-[id number] was administered. Sagittal and coronal images were reconstructed. Individualized dose optimization techniques were used for this CT. COMPARISON: Comparison is made with prior study dated 11/18/2021. FINDINGS: Mild degree of increased markings at the lung bases suggestive of atelectasis and/or scarring. Coronary artery calcification. Aortic valve replacement. There is evidence of a small amount of free intraperitoneal air. Normal liver. The patient is status post cholecystectomy. Mild degree of intrahepatic biliary ductal dilatation. Normal spleen. There are pancreatic calcifications in the distribution of the ducts consistent with chronic pancreatitis. Normal bilateral adrenal glands. Normal right kidney. Normal left kidney. Normal visualized stomach. Normal small intestine. The right hemicolon is fluid-filled and slightly distended. There is diverticulosis, with thickening of the colon wall, and pericolonic inflammation changes consistent with acute diverticulitis. Small amount of free air is seen in the region of the sigmoid colon. The appendix is visualized and appears normal. Normal abdominal aorta. Normal inferior vena cava. Normal retroperitoneum. Normal urinary bladder. Enlarged fibroid uterus. Normal abdominal wall. There are diffuse degenerative changes of the visualized lumbar spine. CT/Abdomen/Pelvis W IV Cont ONLY IMPRESSION: Small amount of free intraperitoneal air. Mild degree of sigmoid diverticulitis with perisigmoid inflammatory changes and small amount of air in the mesentery. Hiatal hernia. Pancreatic calcifications. Electronically Signed: Emeka England MD at 15:05 EDT ,
--- NOTE | 2022-01-11 13:23 | EDS_ITS ---
HPI HPI - GI History of Present Illness Chief Complaint: Abd Pain Detail of Chief Complaint: Abdominal pain that started yesterday Informant: patient Abdominal Pain/Flank Pain Current Severity: 10 Narrative Narrative: Patient presents with abdominal pain that started yesterday initially in the left lower quadrant became more severe and diffuse. Describes pain is worse with movement and car ride hurt when she went over bumps. She denies any fever. She has vomited x2 today. Patient denies blood in her stool black tarry stool. She denies urinary symptoms. She denies fever. Patient has history of lupus, history of diverticulitis, hepatitis, and pancreatitis. 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 Tachycardia Home Medications bimatoprost 0.03 % drops with applicator, eyelash base 1 drp EACH EYE QHS eye drop 06/23/17 [History Last Taken 04/28/21] brimonidine 0.15 % eye drops 1 drp EACH EYE BID eye drops 06/23/17 [History Last Taken 04/29/21] budesonide 3 mg capsule,delayed,extended release 3 mg PO DAILY inflammation 06/23/17 [History Last Taken 04/29/21] hydroxychloroquine 200 mg tablet 200 mg PO DAILYCM lupus 06/23/17 [History Last Taken 03/25/21] levothyroxine 75 mcg tablet 75 mcg PO DAILY thyroid 06/23/17 [History Last Taken 04/29/21] timolol maleate 0.5 % eye drops 1 drp EACH EYE DAILY eye drops 06/23/17 [History Last Taken 03/28/21] metoprolol succinate 50 mg tablet,extended release 24 hr 50 mg PO BID 06/04/19 [History Last Taken 04/29/21] cholecalciferol (vitamin D3) 50 mcg (2,000 unit) capsule 2,000 unit PO DAILY 07/30/19 [History Last Taken 04/29/21] hydrocortisone 5 mg tablet 10 mg PO DAILY steroid 07/31/19 [History Last Taken 3 Days Ago ~11/12/20] ondansetron 4 mg disintegrating tablet 4 mg PO Q8H PRN PRN Nausea #10 tabs 10/22/20 [Rx Last Taken 03/28/21] aflibercept 2 mg/0.05 mL intravitreal syringe (Eylea) 2 mg intravitreal .[id number] EYE HEALTH 03/28/21 [History Last Taken 04/29/21] artificial tears solution eye drops 1 drp ophthalmic (eye) DAILY PRN Dry Eye(S) 03/28/21 [History Last Taken Unknown] gonvcb-vyofhyne-engittj 12,000-38,000-60,000 unit capsule,delayed rel (Creon) 1 cap PO DAILY enzymes 04/29/21 [History Last Taken 04/29/21] potassium chloride 10 mEq tablet,extended release(part/cryst) 10 meq PO DAILY 04/29/21 [History Last Taken 04/29/21] vancomycin 125 mg capsule 125 mg PO TID 04/29/21 [History Last Taken 04/28/21] food supplemt, lactose-reduced 120 ml PO DAILY 06/14/21 [History Last Taken Unknown] Allergy/AdvReac Type Severity Reaction Status Date / Time Penicillins [PCN] Allergy Hives Verified 06/14/21 13:42 azathioprine [From Imuran] AdvReac Vomiting Verified 06/14/21 13:42 colchicine AdvReac Other Verified 01/11/22 12:38 doxycycline AdvReac Rash Verified 01/11/22 12:38 griseofulvin AdvReac NEEDS Verified 06/14/21 13:42 [From Priti-PEG FOLLOW-UP (ultramicrosize)] Sulfa (Sulfonamide AdvReac Other Verified 01/11/22 12:38 Antibiotics) PEPCID AdvReac Mild HALLUCINATI Uncoded 04/29/21 11:07 ONS Family History Father Heart disease Pacemaker Mother Heart disease Surgical History H/O cataract extraction h/o mass removed from hip H/O tubal ligation Hx of cholecystectomy Social History Smoking Status: Never smoker ROS ROS ED Review of Systems ROS Unobtainable: other Constitutional Constitutional ED: Reports lethargy; Denies chills, fever(s), sweats or weight loss Eyes Eyes: Denies blurry vision, change in vision or diplopia ENT ENT ED: Denies rhinorrhea or sore throat Cardiovascular Cardiovascular: Reports racing heartbeat; Denies chest pain or orthopnea Respiratory/Chest Respiratory/Chest: Reports dyspnea and dyspnea on exertion; Denies cough, orthopnea or sputum Gastrointestinal Gastrointestinal: Reports abdominal pain, nausea and vomiting; Denies diarrhea Genitourinary Genitourinary ED: Denies dysuria, hematuria or urinary frequency Musculoskeletal Musculoskeletal: Denies arthralgias, back pain, myalgias or neck pain Integumentary Denies abscess, Abrasions or rash Neurologic Neurologic: Denies headache(s) or weakness Psychiatric Psychiatric: Denies anxiety, depression or suicidal thoughts Endocrine Endocrinology: Denies polydipsia, polyphagia or polyuria Hematologic/Lymphatic Hematologic/Lymphatic: Denies easy bleeding, easy bruising or lymphadenopathy Allergic/Immunologic Allergic/Immunologic ED: Denies mouth swelling, tongue swelling or urticaria EXAM Physical Exam Const Vital Signs: 01/11/22 12:38 01/11/22 15:30 Temperature 99.0 F Temperature Source Temporal Pulse Rate 85 89 Respiratory Rate 15 14 Blood Pressure 110/49 L 115/36 L Blood Pressure Mean 69 62 Pulse Ox 96 Oxygen Delivery Method Room Air Positive well nourished and well developed General Appearance ED: well developed and NAD HEENT Reports TM's clear and moist mucous membranes normocephalic and atraumatic; Negative for trauma or tenderness Tympanic Membrane ED: Yes TM's clear Eyes PERRL and EOMs intact bilaterally General Eye ED: Negative for pale conjunctiva or scleral icterus Neck no lymphadenopathy, supple and no JVD General: Negative for tenderness Chest Wall inspection of chest normal and palpation of chest normal Chest: Negative for tenderness Resp normal respiratory effort and clear to auscultation bilaterally Effort and Inspection: Negative for respiratory distress or pain with movement Auscultation: Negative for rhonchi, wheezes or diminished lung sounds Cardio regular rate, regular rhythm, S1 normal heart sound, S2 normal heart sound and no murmurs Peripheral Pulses: pulses 2+ throughout GI no masses GI Narrative: Patient has diffuse tenderness palpation of the right lower quadrant and left lower quadrant with guarding and rebound. Abdomen slightly distended. Back/Spine no CVA tenderness and no thoracic nor lumbar tenderness Extremity normal to inspection General Extremety ED: Negative for edema General Extremity: Negative for edema Neuro oriented x3, CN's II-XII intact bilaterally, no sensory deficits noted and gait normal Sensorium / Orientation: awake, alert, oriented to person, oriented to place and oriented to time Motor Exam: strength 5/5 throughout and strength abnormal Psych mental status grossly normal Skin no rashes or lesions noted and no wounds MDM MDM MDM Narrative Medical decision making narrative: IV line established and patient given morphine and Zofran for pain. Lab work-up essentially unremarkable. Patient had a CT scan of the abdomen pelvis that showed sigmoid diverticulitis with small amount of free air. I suspect patient likely has a small bowel perforation related to her diverticulitis. I discussed case with general surgeon on-call Dr. May who will see patient in consultation. I discussed case with hospitalist will evaluate patient for admission. I did start patient on Cipro and Flagyl IV. Lab Data Attestation: I reviewed the patient's lab results. Labs: Laboratory Results - last 24 hr 01/11/22 01/11/22 01/11/22 13:50 13:50 13:50 WBC 7.1 RBC 4.39 Hgb 14.0 Hct 41.2 MCV 93.8 MCH 31.9 MCHC 34.0 RDW Std Deviation 56.5 H RDW Coeff of Samreen 16.4 H Plt Count 133 L MPV 10.2 Immature Gran % (Auto) 0.800 Neut % (Auto) 80.3 H Lymph % (Auto) 15.1 L Hopkins % (Auto) 3.2 Eos % (Auto) 0.3 Baso % (Auto) 0.3 Absolute Neuts (auto) 5.7 Absolute Lymphs (auto) 1.08 Nucleated RBC % 0 Sodium 129 L Potassium 4.4 Chloride 96 L Carbon Dioxide 24.0 Anion Gap 9 BUN 12 Creatinine 0.84 Estim Creat Clear Calc 40.62 Est GFR (MDRD) Af Amer 84 Est GFR (MDRD) Non-Af 69 BUN/Creatinine Ratio 14.3 Glucose 82 Lactic Acid 1.2 Calcium 9.2 Total Bilirubin 2.70 H AST 41 H ALT 38 Alkaline Phosphatase 52 Total Protein 7.0 Albumin 3.1 L Globulin 3.9 Albumin/Globulin Ratio 0.8 L Lipase 31 L Urine Color Urine Clarity Urine pH Ur Specific Vernalis Urine Protein Urine Glucose (UA) Urine Ketones Urine Occult Blood Urine Nitrite Urine Bilirubin Urine Urobilinogen Ur Leukocyte Esterase 01/11/22 15:25 WBC RBC Hgb Hct MCV MCH MCHC RDW Std Deviation RDW Coeff of Samreen Plt Count MPV Immature Gran % (Auto) Neut % (Auto) Lymph % (Auto) Hopkins % (Auto) Eos % (Auto) Baso % (Auto) Absolute Neuts (auto) Absolute Lymphs (auto) Nucleated RBC % Sodium Potassium Chloride Carbon Dioxide Anion Gap BUN Creatinine Estim Creat Clear Calc Est GFR (MDRD) Af Amer Est GFR (MDRD) Non-Af BUN/Creatinine Ratio Glucose Lactic Acid Calcium Total Bilirubin AST ALT Alkaline Phosphatase Total Protein Albumin Globulin Albumin/Globulin Ratio Lipase Urine Color Straw Urine Clarity Clear Urine pH 6.5 Ur Specific Vernalis 1.005 Urine Protein 15 H Urine Glucose (UA) Normal Urine Ketones 15 H Urine Occult Blood 10 H Urine Nitrite Negative Urine Bilirubin Negative Urine Urobilinogen Normal Ur Leukocyte Esterase Negative Radiography Diagnostic Testing: Clinical Impression(s) from Imaging Studies Abdomen/Pelvis CT 01/11/22 13:21 IMPRESSION: Small amount of free intraperitoneal air. Mild degree of sigmoid diverticulitis with perisigmoid inflammatory changes and small amount of air in the mesentery. Hiatal hernia. Pancreatic calcifications. Electronically Signed: Emeka England MD at 15:05 EDT , Discharge Plan Triage Chief Complaint: Abd Pain ED Provider: Larissa Sung Dx/Rx/DC Orders Clinical Impression: Acute diverticulitis, Bowel perforation Prescriptions: No Action levothyroxine 75 MCG tablet 75 mcg PO DAILY Rx Instructions: name brand synthroid budesonide 3 MG capsule,delayed,extend.release 3 mg PO DAILY hydroxychloroquine 200 MG tablet 200 mg PO DAILYCM brimonidine 1 DROP bottle 1 drp EACH EYE BID bimatoprost 1 DROP bottle 1 drp EACH EYE QHS timolol maleate 1 DROP drops 1 drp EACH EYE DAILY metoprolol succinate 50 MG tablet extended release 24 hr 50 mg PO BID cholecalciferol (vitamin D3) 2,000 UNIT capsule 2,000 unit PO DAILY hydrocortisone 5 MG tablet 10 mg PO DAILY Label Comments: TAKE 1 AND 1/2 TABLET BY MOUTH ONCE DAILY AND NEEDED STRESS DOSE ondansetron 4 MG tablet 4 mg PO Q8H PRN PRN (Reason: Nausea) Qty: 10 0RF food supplemt, lactose-reduced Liquid 120 ml PO DAILY artificial tears solution Drops 1 drp OPHTHALMIC (EYE) DAILY PRN (Reason: Dry Eye(S)) Eylea 2 mg/0.05 mL Syringe 2 mg INTRAVITREAL .[id number] vancomycin 125 mg capsule 125 mg PO TID potassium chloride 10 mEq tablet,ER particles/crystals 10 meq PO DAILY Creon 12,000-38,000 -60,000 unit capsule,delayed release(DR/EC) 1 cap PO DAILY Primary Care Provider: Ashvin Cardenas Referrals: Ashvin Cardenas MD [Primary Care Provider] - Disposition Disposition: Acute Care Hospital [facility]
[2022-01-11] MEDS: Morphine 4 MG/ML Syringe IV (13:51)
[2022-01-11] MEDS: Ondansetron 4 MG/2 ML Vial IV ×2 (13:51→16:39)
[2022-01-11 13:56] LABS: Absolute Lymphocyte Count 1.08 X10^3/uL (0.83-4.51); Absolute Neutrophil Count 5.7 X10^3/uL (2.0-7.7); Basophil# 0.02 X10^3/uL; Basophil% 0.3 % (0-1); Eosinophil# 0.02 X10^3/uL; Eosinophils% 0.3 % (0-5); Hematocrit 41.2 % (37-47); Lymphocyte # 1.08 X10^3/ul (0.83-4.51); Lymphocyte % 15.1 % (19-41); Mean Corpuscular Hgb 31.9 pg (27.0-32.0); Mean Corpuscular Volume 93.8 fL (81-99); Mean Platelet Vol. 10.2 fl (6.2-12.0); Monocyte# 0.23 X10^3/uL; Monocyte% 3.2 % (0-10); NRBC Flagged by Analyzer 0 % (0-5); Neutrophil # 5.72 X10^3/uL (2.7-7.7); Neutrophil % 80.3 % (47-70); POSITIVE COUNT YES; Platelet Count 133 K/mm3 (150-450); RBC Distribution Width CV 16.4 % (11.6-14.6); RBC Distribution Width SD 56.5 fl (35.1-43.9); Red Blood Count 4.39 M/mm3 (4.2-5.4); White Blood Count 7.1 K/mm3 (4.4-11.0)
[2022-01-11 14:08] LABS: Differential Indicated SCAN CRITERIA MET
[2022-01-11] MEDS: 0.9% Normal Saline 1,000 ML 125 ML IV (14:14)
[2022-01-11 14:22] LABS: ALB/GLOB Ratio 0.8 RATIO (0.9-2.4); AST(SGOT) 41 U/L (15-37); Alanine Aminotransfer ALT/SGPT 38 U/L (13-56); Albumin, Serum 3.1 g/dL (3.2-5.0); Alkaline Phosphatase 52 U/L (45-117); Anion Gap 9 (5-15); BUN 12 mg/dL (7-18); BUN/Creat Ratio 14.3 RATIO (10-20); Calcium,Total 9.2 mg/dL (8.5-10.1); Chloride 96 mmol/L (98-107); Creatinine, Serum 0.84 mg/dL (0.55-1.02); EST Glomerular Filtration Rate 69 mL/min (>60); Est Glom Filt Rate - Afr Amer 84 mL/min (>60); Estimated Creatinine Clearance 40.62 ml/min; Globulin 3.9 g/dL (2.2-4.2); Glucose 82 mg/dL (74-106); Lipase 31 U/L (73-393); Potassium 4.4 mmol/L (3.5-5.1); Sodium Level 129 mmol/L (136-145)
[2022-01-11 14:42] LABS: Lactic Acid 1.2 mmol/L (0.4-1.9)
[2022-01-11 15:34] LABS: Mucous, Urine 0 SEEN /hpf (<or=2+); Red Blood Cells-Urine 0 SEEN /hpf (0-5)
[2022-01-11] MEDS: Ciprofloxacin 400 MG/200 ML BAG 200 MG IV (15:38)
[2022-01-11 15:39] LABS: Color, Urine Straw (Yellow); Glucose, Dipstick Normal (Normal); Ketone-Dipstick 15 mg/dl (Negative); Leukocyte Esterase-Dipstick Negative /ul (Negative); Nitrite-Dipstick Negative (Negative); Occult Blood-Urine 10 /ul (Negative); Protein-Dipstick 15 mg/dl (Negative); Specific Gravity, Urine 1.005 (1.002-1.030); Urine Bilirubin Dipstick Negative (Negative); Urine Clarity Clear (Clear); Urine Urobilinogen Normal (Normal); Urine pH 6.5 (5.0 - 8.0)
[2022-01-11 15:51] LABS: Bacteria RARE /hpf (None Seen); Squamous Epithelial Cells - UA 0-5 SEEN /hpf (5-10); White Blood Cells 0-5 SEEN /hpf (0-5)
--- NOTE | 2022-01-11 16:15 | COL_PTH ---
PATIENT: LIANA VALENCIA LOC: MS3 U#:[id number] AGE/SX: 81/F ROOM: [facility] [place] RE01/11/[address]: Dr. Ashvin Bowman DO : 1940 BED: 1 DIS: 01/21/2022 SPEC #: [id number] RECD: 01/12/22 09:13 STATUS: SRIRAM MILLER #: [id number] JOSSELYN: 01/11/22 16:[address]: Abdullahi May DEPT: SURGICAL PATHOLOGY RECD BY: Talib Allen ENTERED: 01/12/22 12:07 SP TYPE: COLON OTHR DR: DO Dr. Ashvin Castillo MD Dr. Kathryn Lee, DO Tissues: Colon, NOS Procedures: Surgery Specimen Level V HEADER OPERATION: Exploratory laparoscopy, sigmoid colectomy, poss ileostomy PRE-OP DIAGNOSIS: Perforation of sigmoid colon due to diverticulitis TISSUE SUBMITTED: Left colon MICROSCOPIC DIAGNOSIS Left colon, segmental colectomy: Diverticular disease of colon. Focal hyperplastic change. Pericolic lymph node with no pathologic change. AM:zarina 01/17/2022 MICROSCOPIC DESCRIPTION Slides are reviewed. GROSS DESCRIPTION Received in fixative is one container labeled with the patient's name and designated left colon. The specimen consists of a 30 cm segment of bowel with attached fibrofatty tissue that displays fat wrapping. No gross perforations are identified. Both ends of the bowel are stapled shut. The lumen contains large amount of fecal material. Serial sections reveal multiple diverticula, none of which appear to have perforated through the bowel wall. The mucosa is light cox in color and free of mass lesions. [employer] Engineer sections are submitted in six cassettes as follows: 1 ? mucosal margin, 2 ? opposite mucosal margin, 3-5 ? diverticula, 6 ? pericolic soft tissue. Note, sections are submitted after additional fixation. / AM:zarina 01/12/2022 TC:3 CPT: 66162
[2022-01-11] MEDS: Hydrocortisone Sod Succinate 100 MG/2 ML Vial IV (16:39)
--- NOTE | 2022-01-11 16:48 | CON.PCM.SX_ITS ---
Assessment & Plan Assessment/Plan (1) Perforation of sigmoid colon due to diverticulitis: PLAN: This is an 81-year-old female with numerous comorbidities and very frail at baseline who presents with acute onset abdominal pain. ED work-up points to complicated diverticulitis with a small amount of free air. On exam, patient exhibits peritoneal signs. I have held a lengthy conversation with both patient and her daughters at bedside (also joined by Dr. Villalta of the hospitalist service) regarding patient's options to include surgical exploration and partial colectomy, conservative management with antibiotics, and no treatment with e lection for hospice. Regarding the surgical option, I was careful to discuss the risks of prolonged intubation, hernia/wound issues, permanent ostomy, and need for prolonged/permanent halfway. Patient was exceptionally indecisive and wished to delay this decision for another day or to speak with her . At this time she has elected for surgery, but her will be brought in to weigh in on this important decision. She is also articulated that for this time she wishes to be full code with respect to her resuscitation status. Both the operating room and anesthesia have been put on notice. Antibiotics have been begun by emergency medicine. Dr. Villalta has requested initiation of Solu-Cortef for stress dose steroids given patient's baseline use of hydrocortisone. HPI Consult Data Date of Consult: 01/11/22 HPI Narrative Reason for Consultation: Free air and acute onset abdominal pain HPI Narrative: LIANA VALENCIA, is a 81 F, with numerous comorbidities including atrial fibrillation, autoimmune hepatitis, lupus, MGUS, ITP, etc.?, who presents to [facility] with complaints of acute onset abdominal pain yesterday in her left lower quadrant that intensified over the last 24 hours. She states this is worse than her prior episodes of diverticulitis. It has been associated with some chills but no clear fever. She decided to present with her daughters after the pain failed to get better. ED work-up is notable for CBC with normal white blood cell count but left shift. CT imaging of the abdomen pelvis was obtained that showed several spots of free air and acute inflammation of the sigmoid colon consistent with mild diverticulitis. 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 Tachycardia Home Medications bimatoprost 0.03 % drops with applicator, eyelash base 1 drp EACH EYE QHS eye drop 06/23/17 [History Last Taken 04/28/21] brimonidine 0.15 % eye drops 1 drp EACH EYE BID eye drops 06/23/17 [History Last Taken 04/29/21] budesonide 3 mg capsule,delayed,extended release 3 mg PO DAILY inflammation 06/23/17 [History Last Taken 04/29/21] hydroxychloroquine 200 mg tablet 200 mg PO DAILYCM lupus 06/23/17 [History Last Taken 03/25/21] levothyroxine 75 mcg tablet 75 mcg PO DAILY thyroid 06/23/17 [History Last Taken 04/29/21] timolol maleate 0.5 % eye drops 1 drp EACH EYE DAILY eye drops 06/23/17 [History Last Taken 03/28/21] metoprolol succinate 50 mg tablet,extended release 24 hr 50 mg PO BID 06/04/19 [History Last Taken 04/29/21] cholecalciferol (vitamin D3) 50 mcg (2,000 unit) capsule 2,000 unit PO DAILY 07/30/19 [History Last Taken 04/29/21] hydrocortisone 5 mg tablet 10 mg PO DAILY steroid 07/31/19 [History Last Taken 3 Days Ago ~11/12/20] ondansetron 4 mg disintegrating tablet 4 mg PO Q8H PRN PRN Nausea #10 tabs 10/22/20 [Rx Last Taken 03/28/21] aflibercept 2 mg/0.05 mL intravitreal syringe (Eylea) 2 mg intravitreal .[id number] EYE HEALTH 03/28/21 [History Last Taken 04/29/21] artificial tears solution eye drops 1 drp ophthalmic (eye) DAILY PRN Dry Eye(S) 03/28/21 [History Last Taken Unknown] umvmtb-rtopedlm-lncxgvl 12,000-38,000-60,000 unit capsule,delayed rel (Creon) 1 cap PO DAILY enzymes 04/29/21 [History Last Taken 04/29/21] potassium chloride 10 mEq tablet,extended release(part/cryst) 10 meq PO DAILY 04/29/21 [History Last Taken 04/29/21] vancomycin 125 mg capsule 125 mg PO TID 04/29/21 [History Last Taken 04/28/21] food supplemt, lactose-reduced 120 ml PO DAILY 06/14/21 [History Last Taken Unknown] Allergy/AdvReac Type Severity Reaction Status Date / Time Penicillins [PCN] Allergy Hives Verified 06/14/21 13:42 azathioprine [From Imuran] AdvReac Vomiting Verified 06/14/21 13:42 colchicine AdvReac Other Verified 01/11/22 12:38 doxycycline AdvReac Rash Verified 01/11/22 12:38 griseofulvin AdvReac NEEDS Verified 06/14/21 13:42 [From Priti-PEG FOLLOW-UP (ultramicrosize)] Sulfa (Sulfonamide AdvReac Other Verified 01/11/22 12:38 Antibiotics) PEPCID AdvReac Mild HALLUCINATI Uncoded 04/29/21 11:07 ONS Family History Father Heart disease Pacemaker Mother Heart disease Surgical History H/O cataract extraction h/o mass removed from hip H/O tubal ligation Hx of cholecystectomy Social History Smoking Status: Never smoker Physical Exam Const alert and oriented x3 Constitutional Narrative: Appears uncomfortable and frail General Appearance: cooperative Resp normal respiratory effort GI GI Narrative: Port site scars well-healed. Mildly distended. Exquisitely tender to palpation along suprapubic and left lower quadrant with guarding. Palpation: tender LLQ and suprapubic and guarding Lab / Micro Data Result Diagrams: 01/11/22 13:50 01/11/22 13:50 Labs: Laboratory Results - last 24 hr 01/11/22 13:50: WBC 7.1, RBC 4.39, Hgb 14.0, Hct 41.2, MCV 93.8, MCH 31.9, MCHC 34.0, RDW Std Deviation 56.5 H, RDW Coeff of Samreen 16.4 H, Plt Count 133 L, MPV 10.2, Immature Gran % (Auto) 0.800, Neut % (Auto) 80.3 H, Lymph % (Auto) 15.1 L, [place] % (Auto) 3.2, Eos % (Auto) 0.3, Baso % (Auto) 0.3, Absolute Neuts (auto) 5.7, Absolute Lymphs (auto) 1.08, Nucleated RBC % 0 01/11/22 13:50: Sodium 129 L, Potassium 4.4, Chloride 96 L, Carbon Dioxide 24.0, Anion Gap 9, BUN 12, Creatinine 0.84, Estim Creat Clear Calc 40.62, Est GFR (MDRD) Af Amer 84, Est GFR (MDRD) Non-Af 69, BUN/Creatinine Ratio 14.3, Glucose 82, Calcium 9.2, Total Bilirubin 2.70 H, AST 41 H, ALT 38, Alkaline Phosphatase 52, Total Protein 7.0, Albumin 3.1 L, Globulin 3.9, Albumin/Globulin Ratio 0.8 L , Lipase 31 L 01/11/22 13:50: Lactic Acid 1.2 01/11/22 15:25: Urine Color Straw, Urine Clarity Clear, Urine pH 6.5, Ur Specific [place] 1.005, Urine Protein 15 H, Urine Glucose (UA) Normal, Urine Ketones 15 H, Urine Occult Blood 10 H, Urine Nitrite Negative, Urine Bilirubin Negative, Urine Urobilinogen Normal, Ur Leukocyte Esterase Negative, Urine RBC 0 SEEN, Urine WBC 0-5 SEEN, Ur Squamous Epith Cells 0-5 SEEN, Urine Bacteria RARE, Urine Mucus 0 SEEN Radiology Impression Abdomen/Pelvis CT 01/11/22 13:21 IMPRESSION: Small amount of free intraperitoneal air. Mild degree of sigmoid diverticulitis with perisigmoid inflammatory changes and small amount of air in the mesentery. Hiatal hernia. Pancreatic calcifications. Electronically Signed: Emeka England MD at 15:05 EDT , Charges/Coding Visit Charges Inpatient E&M: 45584 Init Hosp L3
[2022-01-11] MEDS: metroNIDAZOLE 500 MG/100 ML BAG 100 MG IV (17:02)
--- NOTE | 2022-01-11 17:22 | HP.PCM.HOS_ITS ---
HPI - General General Date of Admission: 01/11/22 Date of Service: 01/11/22 Chief Complaint: Abdominal pain HPI Narrative LIANA VALENCIA, is a 81 F who presented to the emergency department at [facility] on 01/11/2022 with a chief complaint of abdominal pain. Patient states she started having pain yesterday in her left lower quadrant that became more severe and diffuse today. She described the pain worse with movement. She denies any fever or chills but did report vomiting of 2 episodes today. She denies any hematemesis, hematochezia, or melena. She indicates she had increased pain on the car ride here when she went over bumps or the road was not level. She has a marked history of diverticulitis but has not had an episode since March 2021. Vital signs on presentation showed a temperature of 99.0, pulse rate of 85, blood pressure of 110/49, respiratory rate of 15, and oxygen saturation of 96% on room air. Her CBC showed a normal white count and normal hemoglobin with a thrombocytopenia that appears to be chronic and at baseline. Her BMP showed mild hyponatremia with a sodium of 129 that is chronic but was otherwise unremarkable. Her total bilirubin was elevated from baseline at 2.7. Her liver functions were overall unremarkable. A lipase was obtained and found to be 31. A UA was obtained and was overall unremarkable with no signs of infection. A CT of her abdomen pelvis was performed and a small amount of free intraperitoneal was identified along with a mild degree of sigmoid diverticulitis and perisigmoid inflammatory changes as well as a small amount of air in the mesentery, hiatal hernia, and pancreatic calcifications. In the emergency department Dr. May was consulted and evaluated the patient and has given the option for surgical intervention versus conservative managemen t with IV antibiotics and close monitoring. The patient is currently trying to decide how to proceed and does appear to understand she is high risk for deterioration with either course of treatment. She was started on Cipro and Flagyl in the emergency department. The patient has a penicillin allergy with hives at baseline. 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 Tachycardia Home Medications brimonidine 0.15 % eye drops 1 drp EACH EYE BID eye drops 06/23/17 [History Last Taken 01/11/22] budesonide 3 mg capsule,delayed,extended release 3 mg PO DAILY inflammation 12/0 04/01 [History Last Taken 01/10/22] hydroxychloroquine 200 mg tablet 200 mg PO DAILYCM lupus 06/23/17 [History Last Taken 01/10/22] levothyroxine 75 mcg tablet 75 mcg PO DAILY thyroid 06/23/17 [History Last Taken 01/11/22] timolol maleate 0.5 % eye drops 1 drp EACH EYE DAILY eye drops 06/23/17 [History Last Taken 01/11/22] metoprolol succinate 50 mg tablet,extended release 24 hr 50 mg PO BID HEART 06/04/19 [History Last Taken 01/11/22] cholecalciferol (vitamin D3) 50 mcg (2,000 unit) capsule 2,000 unit PO DAILY SUPPLEMENT 07/30/19 [History Last Taken 01/10/22] hydrocortisone 5 mg tablet 10 mg PO DAILY steroid 07/31/19 [History Last Taken 01/10/22] aflibercept 2 mg/0.05 mL intravitreal syringe (Eylea) 2 mg intravitreal .[id number] EYE HEALTH 03/28/21 [History Last Taken 01/09/22] artificial tears solution eye drops 1 drp ophthalmic (eye) DAILY PRN Dry Eye(S) 03/28/21 [History Last Taken Unknown] oofppl-zglpznxv-xadxvkg 12,000-38,000-60,000 unit capsule,delayed rel (Creon) 1 cap PO DAILY enzymes 04/29/21 [History Last Taken 01/10/22] potassium chloride 10 mEq tablet,extended release(part/cryst) 10 meq PO DAILY SUPPLEMENT' 04/29/21 [History Last Taken 01/11/22] Lactobacillus acidophilus 10 billion cell capsule (Probiotic) 10,000 mmu cells PO DAILY IMMUNE HEALTH 01/11/22 [History Last Taken 01/10/22] bimatoprost 0.01 % eye drops (Lumigan) 1 drp EACH EYE DAILY EYE HEALTH 01/11/22 [History Last Taken 01/11/22] Allergy/AdvReac Type Severity Reaction Status Date / Time Penicillins [PCN] Allergy Hives Verified 06/14/21 13:42 azathioprine [From Imuran] AdvReac Vomiting Verified 06/14/21 13:42 colchicine AdvReac Other Verified 01/11/22 12:38 doxycycline AdvReac Rash Verified 01/11/22 12:38 griseofulvin AdvReac NEEDS Verified 06/14/21 13:42 [From Priti-PEG FOLLOW-UP (ultramicrosize)] Sulfa (Sulfonamide AdvReac Other Verified 01/11/22 12:38 Antibiotics) PEPCID AdvReac Mild HALLUCINATI Uncoded 04/29/21 11:07 ONS Family History Father Heart disease Pacemaker Mother Heart disease Surgical History H/O cataract extraction h/o mass removed from hip H/O tubal ligation Hx of cholecystectomy Social History (Updated 01/11/22 @ 17:[address] Rosalba Villalta DO) household members: spouse Smoking Status: Never smoker alcohol intake: never substance use type: does not use ROS Constitutional Constitutional: Reports chills, malaise and weakness; Denies anorexia, change in weight, fatigue, fever(s), night sweats or other Eyes Eyes: Denies blurry vision, change in eye color, change in vision, discharge from eye(s), double vision, erythema, eye pain, loss of vision or other ENT HEENT: Denies abnormal hearing, dysphagia, ear pain, epistaxis, headache(s), hearing loss, nasal congestion, nasal discharge, post nasal drip, sinus press ure, sore throat or other Cardiovascular Cardiovascular: Denies chest pain, claudication, dyspnea on exertion, edema, lightheadedness, orthopnea, palpitations, paroxysmal nocturnal dyspnea, rapid heart rate, syncope or other Respiratory/Chest Respiratory/Chest: Denies cough, dyspnea, excessive phlegm production, hemoptysis, productive cough, shortness of breath at rest, shortness of breath with exertion, wheezing or other Gastrointestinal Gastrointestinal: Reports abdominal pain, nausea and vomiting Genitourinary Genitourinary: Denies burning urination, difficulty urinating, dysuria, hematuria, nocturia, urinary frequency, urinary hesitancy, urinary incontinence, urinary urgency or other Musculoskeletal Musculoskeletal: Denies arthralgias, back pain, joint pain, joint stiffness, joint swelling, myalgias, neck pain or other Neurologic Neurologic: Denies abnormal gait, abnormal speech, confusion, disequilibrium, dizziness, focal weakness, headache(s), numbness, paresthesias, seizure-like activity, seizures, syncope, tingling, tremor(s) or other Psychiatric Psychiatric: Denies anxiety, depression, homicidal ideation, suicidal ideation or other Endocrine Endocrinology: Denies change in body appearance, cold intolerance, excessive sweating, heat intolerance, polydipsia, polyuria or other Hematologic/Lymphatic Hematologic/Lymphatic: Reports easy bruising; Denies anemia, easy bleeding, lymphadenopathy or other Allergic/Immunologic Allergic/Immunologic: Denies rhinitis, hives, eczemia, asthma or other Vital Signs Vital Signs Vital Signs: 01/11/22 12:38 01/11/22 15:30 01/11/22 15:43 Temperature 99.0 F 99.5 F H Temperature Source Temporal Oral Pulse Rate 85 89 91 Respiratory Rate 15 14 18 Blood Pressure 110/49 L 115/36 L 101/43 L Blood Pressure Mean 69 62 62 Pulse Ox 96 99 Oxygen Delivery Method Room Air Room Air Weight Weight: 48.988 kg Body Mass Index (BMI) 22.6 Physical Exam Const alert, oriented x3 and average body habitus Constitutional Narrative: Elderly white female lying in bed with family at bedside, appears uncomfortable with guarding of her abdomen, currently nontoxic General Appearance: cooperative HEENT normocephalic, head/scalp atraumatic and moist oral mucous membranes HEENT Narrative: Dentition is poor, Mallampati is 2, no thrush hard of hearing Mouth: oral and palatal mucosa normal Eyes PERRL, EOMs intact bilaterally and conjunctivae normal Eyes Narrative: No scleral icterus Neck no lymphadenopathy, supple, no JVD and no carotid bruits Neck Narrative: Trachea midline Resp normal respiratory effort, no retractions, no use of accessory muscles and clear to auscultation bilaterally Auscultation: Negative for crackles, rales, rhonchi or wheezes Cardio regular rate, regular rhythm, S1 normal heart sound, S2 normal heart sound, no murmurs, no rub, no gallops, no clicks and no JVD GI GI Narrative: Significant guarding with diffuse tenderness and peritoneal signs, bowel sounds are hypoactive, mild distention Palpation: tender and guarding Extremity no clubbing, cyanosis or edema Extremity Narrative: Ecchymosis on bilateral lower extremities, marked decrease in lean muscle mass Skin no rashes or lesions noted, no wounds, skin turgor normal, no jaundice, no petechiae and no mottling Skin Narrative: Scattered ecchymosis bilateral lower extremities Hair: general thinning Neuro oriented x3, CN's II-XII intact bilaterally, moves all extremities and no focal motor deficits Neuro Narrative: Generalized weakness Sensorium / Orientation: awake, alert, oriented to person, oriented to place and oriented to time Speech: speech normal Psych affect normal Psych Narrative: Pleasant but concerned and having trouble making decisions on how to proceed Results Lab / Micro Data Result Diagrams: 01/11/22 13:50 01/11/22 13:50 Labs: Laboratory Results - last 24 hr 01/11/22 13:50: WBC 7.1, RBC 4.39, Hgb 14.0, Hct 41.2, MCV 93.8, MCH 31.9, MCHC 34.0, RDW Std Deviation 56.5 H, RDW Coeff of Samreen 16.4 H, Plt Count 133 L, MPV 10.2, Immature Gran % (Auto) 0.800, Neut % (Auto) 80.3 H, Lymph % (Auto) 15.1 L, [place] % (Auto) 3.2, Eos % (Auto) 0.3, Baso % (Auto) 0.3, Absolute Neuts (auto) 5.7, Absolute Lymphs (auto) 1.08, Nucleated RBC % 0 01/11/22 13:50: Sodium 129 L, Potassium 4.4, Chloride 96 L, Carbon Dioxide 24.0, Anion Gap 9, BUN 12, Creatinine 0.84, Estim Creat Clear Calc 40.62, Est GFR (MDRD) Af Amer 84, Est GFR (MDRD) Non-Af 69, BUN/Creatinine Ratio 14.3, Glucose 82, Calcium 9.2, Total Bilirubin 2.70 H, AST 41 H, ALT 38, Alkaline Phosphatase 52, Total Protein 7.0, Albumin 3.1 L, Globulin 3.9, Albumin/Globulin Ratio 0.8 L , Lipase 31 L 01/11/22 13:50: Lactic Acid 1.2 01/11/22 15:25: Urine Color Straw, Urine Clarity Clear, Urine pH 6.5, Ur Specific [place] 1.005, Urine Protein 15 H, Urine Glucose (UA) Normal, Urine Ketones 15 H, Urine Occult Blood 10 H, Urine Nitrite Negative, Urine Bilirubin Negative, Urine Urobilinogen Normal, Ur Leukocyte Esterase Negative, Urine RBC 0 SEEN, Urine WBC 0-5 SEEN, Ur Squamous Epith Cells 0-5 SEEN, Urine Bacteria RARE, Urine Mucus 0 SEEN Radiology Impression Abdomen/Pelvis CT 01/11/22 13:21 IMPRESSION: Small amount of free intraperitoneal air. Mild degree of sigmoid diverticulitis with perisigmoid inflammatory changes and small amount of air in the mesentery. Hiatal hernia. Pancreatic calcifications. Electronically Signed: Emeka England MD at 15:05 EDT , Assessment & Plan Assessment/Plan (1) Perforation of sigmoid colon due to diverticulitis: (2) Acute diverticulitis: (3) Bowel perforation: (4) Adrenal insufficiency: (5) Lupus: QUALIFIERS: Systemic lupus erythematosus organ involvement: unspe cified (6) Monoclonal gammopathies: (7) Autoimmune hepatitis: PLAN: Plan Perforated sigmoid colon due to acute diverticulitis -General surgery has been consulted -Risk benefits have been explained with regards to surgical and nonsurgical intervention -Family is currently deciding along with patient how to proceed -With history of adrenal insufficiency will give Solu-Cortef 100 mg now in case patient goes to the OR -Stress dose steroids of 50mg Q8--> if patient ends up hypotensive and on pressors would increase to 100 every 8 -Antibiotics with Cipro and Flagyl as patient has a penicillin allergy -N.p.o. -IV fluids with saline at 75 cc/h History of adrenal insufficiency -Patient is typically on hydrocortisone 10 mg daily at home -We will give 100 mg of Solu-Cortef in the emergency department in preparation for surgery -Place on stress dose steroids Solu-Cortef 50 mg every 8 and if patient ends up hypotensive would increase to 100 every 8 -Monitor blood pressure and electrolytes History of MGUS -Follows with oncology-Dr. Panda -Has been stable with ongoing monitoring Autoimmune hepatitis -continue steroids History of lupus -Continue hydroxychloroquine Hypertension -Continue metoprolol 50 mg p.o. twice daily -If patient goes to surgery may need to convert to IV metoprolol 50 mg IV push every 6 hours if blood pressure will tolerate Hypothyroidism -Check TSH -Continue levothyroxine -If needs to be n.p.o. for extended period of time without p.o. meds will need to give IV doses weekly Glaucoma -Continue home eyedrops DVT prophylaxis -SCDs -Chemoprophylaxis with Lovenox CODE STATUS -Full code as per discussion with patient and family at admission in the emergency department Charges/Coding Visit Charges Inpatient E&M: 60894 Init Hosp L3
--- NOTE | 2022-01-11 21:25 | PCM.OPRPT ---
Report of Operation Date of Procedure: 01/11/22 Pre-Operative Diagnosis: Perforated diverticulitis Post-Operative Diagnosis: Perforated diverticulitis (perforation within the descending colon) and purulence of the pelvis Surgery/Procedure Performed:: 1. Exploratory laparotomy 2. Partial colectomy (descending and sigmoid) 3. Mobilization of splenic flexure 4. Creation of end colostomy Description of Surgical Findings:: ? Purulent fluid of the pelvis ? Acutely inflamed descending and sigmoid colon riddled with tics and evidence of perforation on the distal descending colon ? Numerous thin adhesions between the left adnexa/uterus and sigmoid colon Surgeon: Abdullahi May merchandise team manager: Sidney Khan merchandise team manager: Kirby Corbett Type of Anesthesia: General Anesthesiologist: Ramakrishna Rosenbaum Specimen's removed: Left colon Drains: 15 [place] round Suman Estimated Blood Loss (mL): 100 Description of Procedure: After appropriate identification and confirmation of consents outside of the OR, patient was brought to the operating room where she was positioned supine on the operating room table. She became suddenly very nauseous and had a bout of emesis on the operating room table, but her head was turned to the side and she was able to protect her airway. Once this acute episode had resolved she was returned to a supine position and a general anesthetic was induced. Following induction, an orogastric tube was placed into the stomach and a Daly catheter was sterilely placed in the bladder. Patient's abdomen was then prepped and draped in usual sterile fashion. Formal timeout was conducted to confirm patient and the procedure anticipated. Procedure was then begun with a laparotomy incision that was deepened down through camper's fascia and the abdominal wall with electrocautery. Care was taken to protect the viscera deeply. It was immediately evident that the patient had purulent fluid welling up from her pelvis. This was suctioned free of the peritoneal cavity and a series of culture swabs was obtained of the peritoneum and passed off the field for micro. A Bookwalter self retainer was then placed to improve exposure. I began by identifying the sigmoid colon which was acutely inflamed and there was evidence of a perforation along the descending colon. I incised the white line of Toldt with electrocautery and used combination of blunt dissection and electrocautery to further open this line and developed the avascular plane deep to the left colon. As I proceeded caudad into the pelvis it was immediately clear there were numerous adhesions between the sigmoid colon and the left adnexal structures/uterus. These were initially carefully lysed with electrocautery but still there was oozing from deep within the pelvis. It was also difficult to obtain optimal exposure so at this point I called my partner Dr. Khan for assistance. He arrived shortly to the room and assisted with mobilizing the colon from the structures. Using blunt dissection we did have a rent in a vein coming from what appeared to be the broad ligament that was tied off with a 0 Vicryl ligature. We worked to improve exposure and further traction was placed on the viscera with our Bookwalter system, but in the process there was an inadvertent rent in the mesentery that required oversewing with a 0 silk suture. With this bleeding addressed we scored the mesentery to the distal sigmoid colon and made a full-thickness window that permitted passage of our impact LigaSure device. The mesentery was then taken distally until the rectosigmoid junction was reached and the bowel was significantly softer with palpation. Here we transected the bowel with a candycane stapler using serial firings. The rectal staple line was then marked with a single 2-0 Prolene suture. Attention was then turned more proximally where we continued to follow up the avascular plane along the posterior aspect of the colon and Gerota's fascia. Aiming to get enough mobility for a colostomy, it quickly became clear that this would require mobilization of the splenic flexure. This was undertaken with a combination of blunt dissection electrocautery to release tension laterally. Then the mesocolon to our proximal transection point was sealed with the LigaSure device. A MOODY stapler was employed for transection of the descending colon and our specimen was passed off the field for pathologic processing. A location in the left upper quadrant of the abdominal wall was identified for site of her colostomy and a skin defect was created with electrocautery. The subcutaneous layer was bluntly and the anterior rectus sheath was opened longitudinally. After splitting the rectus fibers, the posterior rectus sheath was cauterized and the opening was bluntly enlarged. The free end of descending colon was passed through this opening and the colon was affixed to the posterior rectus sheath with 2x3-0 silk interrupted sutures taking seromuscular bites of the colon. The pelvis was inspected for hemostasis, and finding it to be intact we proceeded with placement of a 15 [place] round Suman drain. A stab incision was made in the left lower quadrant for passage of the drain tubing which was secured on the abdominal wall with a 2-0 nylon suture. After confirming that our instrument and sponge counts were correct, we began closure of the peritoneum. The fascia was closed using double-stranded 0 PDS x2 and knotting them in the middle. Just prior to fascial closure, we asked anesthesia to convert the patient's orogastric tube to a nasogastric tube and this tube was palpated within the stomach before the fascial closure was completed. Given that this was a dirty case, I elected to not close the skin fully and instead widely spaced skin maria a along the laparotomy incision. The interstices of this closure were then packed with strips of Telfa gauze and a series of folded 4 x 4's were applied as a dressing which was held in place with Tegaderms. Our left lower quadrant drain was connected to bulb suction and attention was turned to maturation of our colostomy. This was done in a standard Malia fashion with 3-0 Vicryl suture. The stoma was checked for patency at the fascia with digital exam. Lastly a colostomy appliance was cut to appropriate diameter and fit about the stoma. While still on the operating room table, I performed a quick digital rectal exam to evacuate what stool I could reach in the rectal vault. Patient was then transferred from the operating table to her ICU bed still intubated. She was then taken to the ICU for ongoing care. Complications None Admit VTE Documentation VTE Mechan Device Prophylaxis: SCD's
--- NOTE | 2022-01-11 22:02 | PCM.HOSP.N ---
Hospitalist Note Contacted by the general surgery who reported recent completion of operative intervention for perforated diverticulitis with exploratory laparotomy and secondary to noted perforation patient did have creation of end colostomy with partial colectomy of the descending and sigmoid region with planned continued intubation and transition to the ICU with stable vital signs at this time. We will place ICU vent order set and request non cdl driver consultation. Did discuss plan of care with general surgeon and at this time will discontinue Lovenox and continue to monitor with potential initiation of chemoprophylaxis pending his reevaluation of patient in AM. We will discontinue oral options at this time as he feels there would not be absorption.
[2022-01-11] MEDS: Propofol 10MG/Ml 1,000 MG/100 ML Bottle 2.9 MG CONT INF (22:31)
[2022-01-11] MEDS: 0.9% Normal Saline 1,000 ML 75 ML IV (23:10)
[2022-01-11 23:35] LABS: Allen Test Positive; Base Excess -8 mmol/L (-2 to +2); Bicarbonate 17.2 mmol/L (22-26); Blood Gas Specimen Type ART; FI02 35; Mode AC; O2 Delivery Device Adult Vent; PEEP 5; PO2 86 mmHG (75-100); RR 14; SITE L Radial; SO2 97 % (95-99); Total Carbon Dioxide 18 mmol/L; Vt 400; pCO2 27.9 mmHg (35-45)
[2022-01-12] VITALS (23 sets, daily range): BP systolic 99–149; BP diastolic 45–72; PULSE 68–94; RESP 14–28; TEMP 36.6–37.2; O2SAT 94–100
[2022-01-12] MEDS: Ciprofloxacin 400 MG/200 ML BAG 200 MG IV ×3 (02:01→21:19)
[2022-01-12] MEDS: Hydrocortisone Sod Succinate 100 MG/2 ML Vial 50 MG IV ×5 (02:09→23:51)
[2022-01-12] MEDS: metroNIDAZOLE 500 MG/100 ML BAG 100 MG IV ×4 (03:19→21:19)
[2022-01-12 05:46] LABS: Absolute Lymphocyte Count 0.44 X10^3/uL (0.83-4.51); Absolute Neutrophil Count 6.9 X10^3/uL (2.0-7.7); Basophil# 0.02 X10^3/uL; Basophil% 0.3 % (0-1); Hematocrit 35.5 % (37-47); Hemoglobin 11.7 g/dL (12.0-15.0); Lymphocyte # 0.44 X10^3/ul (0.83-4.51); Lymphocyte % 5.7 % (19-41); Mean Corpuscular Hgb 31.4 pg (27.0-32.0); Mean Corpuscular Volume 95.2 fL (81-99); Mean Platelet Vol. 10.6 fl (6.2-12.0); Monocyte# 0.25 X10^3/uL; Monocyte% 3.3 % (0-10); NRBC Flagged by Analyzer 0 % (0-5); Neutrophil # 6.89 X10^3/uL (2.7-7.7); Neutrophil % 89.8 % (47-70); POSITIVE DIFFERENTIAL YES; POSITIVE MORPHOLOGY YES; Platelet Count 142 K/mm3 (150-450); RBC Distribution Width CV 16.7 % (11.6-14.6); RBC Distribution Width SD 58.3 fl (35.1-43.9); Red Blood Count 3.73 M/mm3 (4.2-5.4); White Blood Count 7.7 K/mm3 (4.4-11.0)
[2022-01-12 05:48] LABS: Differential Indicated SCAN CRITERIA MET
--- NOTE | 2022-01-12 05:49 | EX.PCM.CONCC ---
Assessment & Plan Assessment/Plan (1) Perforation of sigmoid colon due to diverticulitis: PLAN: Plan RECOMMENDATIONS: 1. Proceed with a trial of extubation this morning. 2. Once extubated, supplemental oxygen can be utilized, if needed, to maintain saturations at or above 90%. 3. Dietary advancement per general surgery recommendations. 4. Continue perioperative antimicrobials as ordered. 5. Encourage incentive spirometer use and mobilize patient as tolerated. 6. Continue stress dose steroids in the immediate postoperative time period. IMPRESSIONS: 1. Acute respiratory failure According to documentation, the patient was maintaining appropriate oxygen saturations on room air prior to surgical intervention. Postoperatively, the decision was made by anesthesia to keep the patient intubated. The exact rationale for this decision is not entirely clear as there is no documentation to this effect. Nevertheless, there are no barriers from a respiratory perspective to proceed with immediate extubation this morning. The patient passed her spontaneous breathing trial and is alert and following commands appropriately. 2. Perforated diverticulitis, now POD #1 s/p exploratory laparotomy with partial colectomy and creation of end colostomy Continue routine postoperative care/management per general surgery recommendations. 3. History of adrenal insufficiency Continue stress dose steroids as ordered today. If the patient remains hemodynamically stable, we will begin to wean steroids beginning tomorrow. 4. History of MGUS/lupus/hypertension/hypothyroidism Complicates care, management, recovery and prognosis. Continue home medications as indicated. TIME: 34 minutes of critical care time, independent of procedures, was spent addressing the patient's respiratory failure, perforated diverticulitis, history of adrenal insufficiency, review of all data and collaboration with the care team. HPI Consult Data Date of Consult: 01/12/22 HPI Narrative Reason for Consultation: Respiratory failure HPI Narrative: The patient is an 81-year-old female, with a history as outlined below, who presented to the emergency department on January 11 with abdominal pain and vomiting. The patient has a history of lupus, adrenal insufficiency and hypothyroidism. History pertinent to her hospitalization was obtained primarily via chart review, as the patient is currently intubated and unable to provide any additional detail. On presentation to the emergency department, the patient was noted to be afebrile and hemodynamically stable. She was maintaining appropriate oxygen saturations on room air. Initial laboratory evaluation revealed no evidence of a leukocytosis. Platelet count was low at 133,000. Chemistry profile was notable for a sodium of 129 and chloride of 96. Creatinine was within normal limits. Urine analysis was unremarkable. CT abdomen/pelvis revealed a small amount of free intraperitoneal air with a mild degree of sigmoid diverticulitis and perisigmoid inflammatory changes. The patient was subsequently evaluated by general surgery over concerns for perforation of the sigmoid colon due to diverticulitis. She was ultimately taken to the OR on the evening of January 11 where she underwent an exploratory laparotomy with partial colectomy and creation of end colostomy. Apparently, postoperatively, the patient was left intubated. The exact rationale for this decision is not clear, as there is no documentation from the anesthesia provider. Nevertheless, the patient was able to pass a spontaneous breathing trial this morning without complication. She is alert and appropriately interactive. [facility] Medical History Atrial fibrillation Chronic hyponatremia COLONOSCOPY Diverticulitis Glaucoma Hearing loss, left Hearing loss, right Heart disease Hepatitis History of left heart catheterization (LHC) Hyperlipidemia Hyperthyroidism Idiopathic thrombocytopenia Lupus Macular degeneration Migraines NASAL POLYP REMOVED Non-smoker Osteopenia Rheumatic fever Sleep apnea 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 Tachycardia Home Medications brimonidine 0.15 % eye drops 1 drp EACH EYE BID eye drops 06/23/17 [History Last Taken 01/11/22] budesonide 3 mg capsule,delayed,extended release 3 mg PO DAILY inflammation 06/23/17 [History Last Taken 01/10/22] hydroxychloroquine 200 mg tablet 200 mg PO DAILYCM lupus 06/23/17 [History Last Taken 01/10/22] levothyroxine 75 mcg tablet 75 mcg PO DAILY thyroid 06/23/17 [History Last Taken 01/11/22] timolol maleate 0.5 % eye drops 1 drp EACH EYE DAILY eye drops 06/23/17 [History Last Taken 01/11/22] metoprolol succinate 50 mg tablet,extended release 24 hr 50 mg PO BID HEART 06/04/19 [History Last Taken 01/11/22] cholecalciferol (vitamin D3) 50 mcg (2,000 unit) capsule 2,000 unit PO DAILY SUPPLEMENT 07/30/19 [History Last Taken 01/10/22] hydrocortisone 5 mg tablet 10 mg PO DAILY steroid 07/31/19 [History Last Taken 01/10/22] aflibercept 2 mg/0.05 mL intravitreal syringe (Eylea) 2 mg intravitreal .[id number] EYE HEALTH 03/28/21 [History Last Taken 01/09/22] artificial tears solution eye drops 1 drp ophthalmic (eye) DAILY PRN Dry Eye(S) 03/28/21 [History Last Taken Unknown] avbzng-aentegzg-udznmog 12,000-38,000-60,000 unit capsule,delayed rel (Creon) 1 cap PO DAILY enzymes 04/29/21 [History Last Taken 01/10/22] potassium chloride 10 mEq tablet,extended release(part/cryst) 10 meq PO DAILY SUPPLEMENT' 04/29/21 [History Last Taken 01/11/22] Lactobacillus acidophilus 10 billion cell capsule (Probiotic) 10,000 mmu cells PO DAILY IMMUNE HEALTH 01/11/22 [History Last Taken 01/10/22] bimatoprost 0.01 % eye drops (Lumigan) 1 drp EACH EYE DAILY EYE HEALTH 01/11/22 [History Last Taken 01/11/22] Allergy/AdvReac Type Severity Reaction Status Date / Time Penicillins [PCN] Allergy Hives Verified 06/14/21 13:42 azathioprine [From Imuran] AdvReac Vomiting Verified 06/14/21 13:42 colchicine AdvReac Other Verified 01/11/22 12:38 doxycycline AdvReac Rash Verified 01/11/22 12:38 griseofulvin AdvReac NEEDS Verified 06/14/21 13:42 [From Priti-PEG FOLLOW-UP (ultramicrosize)] Sulfa (Sulfonamide AdvReac Other Verified 01/11/22 12:38 Antibiotics) PEPCID AdvReac Mild HALLUCINATI Uncoded 04/29/21 11:07 ONS Family History Father Heart disease Pacemaker Mother Heart disease Surgical History H/O cataract extraction h/o mass removed from hip H/O tubal ligation Hx of cholecystectomy Social History household members: spouse Smoking Status: Never smoker alcohol intake: never substance use type: does not use ROS Review of Systems ROS Unobtainable: due to endotracheal tube Physical Exam Const alert and no apparent distress General Appearance: cooperative, intubated and patient mechanically ventilated HEENT normocephalic and head/scalp atraumatic HEENT Narrative: Nasogastric tube in place. Mouth: endotracheal tube in place Eyes PERRL and EOMs intact bilaterally Neck supple General: trachea midline Chest inspection of chest normal Resp normal respiratory effort Auscultation: Negative for rales, rhonchi or wheezes Cardio regular rate and regular rhythm Heart Sounds: murmur GI GI Narrative: Abdominal binder in place. + DARRYL drain. Inspection: ostomy present Extremity no clubbing, cyanosis or edema Skin no rashes or lesions noted Neuro Neuro Narrative: Alert and able to follow simple commands. Lab / Micro Data Result Diagrams: 01/12/22 05:30 01/12/22 07:15 Labs: Laboratory Results - last 24 hr 01/11/22 13:50: WBC 7.1, RBC 4.39, Hgb 14.0, Hct 41.2, MCV 93.8, MCH 31.9, MCHC 34.0, RDW Std Deviation 56.5 H, RDW Coeff of Samreen 16.4 H, Plt Count 133 L, MPV 10.2, Immature Gran % (Auto) 0.800, Neut % (Auto) 80.3 H, Lymph % (Auto) 15.1 L, [place] % (Auto) 3.2, Eos % (Auto) 0.3, Baso % (Auto) 0.3, Absolute Neuts (auto) 5.7, Absolute Lymphs (auto) 1.08, Nucleated RBC % 0 01/11/22 13:50: Sodium 129 L, Potassium 4.4, Chloride 96 L, Carbon Dioxide 24.0, Anion Gap 9, BUN 12, Creatinine 0.84, Estim Creat Clear Calc 40.62, Est GFR (MDRD) Af Amer 84, Est GFR (MDRD) Non-Af 69, BUN/Creatinine Ratio 14.3, Glucose 82, Calcium 9.2, Total Bilirubin 2.70 H, AST 41 H, ALT 38, Alkaline Phosphatase 52, Total Protein 7.0, Albumin 3.1 L, Globulin 3.9, Albumin/Globulin Ratio 0.8 L, Lipase 31 L 01/11/22 13:50: Lactic Acid 1.2 01/11/22 15:25: Urine Color Straw, Urine Clarity Clear, Urine pH 6.5, Ur Specific [place] 1.005, Urine Protein 15 H, Urine Glucose (UA) Normal, Urine Ketones 15 H, Urine Occult Blood 10 H, Urine Nitrite Negative, Urine Bilirubin Negative, Urine Urobilinogen Normal, Ur Leukocyte Esterase Negative, Urine RBC 0 SEEN, Urine WBC 0-5 SEEN, Ur Squamous Epith Cells 0-5 SEEN, Urine Bacteria RARE, Urine Mucus 0 SEEN 01/12/22 05:30: WBC 7.7, RBC 3.73 L, Hgb 11.7 L, Hct 35.5 L, MCV 95.2, MCH 31.4, MCHC 33.0, RDW Std Deviation 58.3 H, RDW Coeff of Samreen 16.7 H, Plt Count 142 L, MPV 10.6, Immature Gran % (Auto) 0.900, Neut % (Auto) 89.8 H, Lymph % (Auto) 5.7 L, [place] % (Auto) 3.3, Eos % (Auto) 0.0, Baso % (Auto) 0.3, Absolute Neuts (auto) 6.9, Absolute Lymphs (auto) 0.44 L, Nucleated RBC % 0 ABG Data ABG results: ABG 01/11/22 23:30 Specimen Type ART Sample Site L Radial pH 7.40 Bicarbonate Actual 17.2 L Total CO2 18 Base Excess -8 L O2 Saturation 97 O2 % 35 ABG pCO2 27.9 L ABG pO2 86 Bowen Test Positive Respiration Rate 14 O2 Delivery Device Adult Vent Vent Mode AC Tidal Volume 400 POC PEEP 5 Radiology Impression Abdomen/Pelvis CT 01/11/22 13:21 IMPRESSION: Small amount of free intraperitoneal air. Mild degree of sigmoid diverticulitis with perisigmoid inflammatory changes and small amount of air in the mesentery. Hiatal hernia. Pancreatic calcifications. Electronically Signed: Emeka England MD at 15:05 EDT , Charges/Coding Procedures Hospitalists Procedures: [id number] [facility] 1st Hr
[2022-01-12 06:05] LABS: Anisocytosis 1+
[2022-01-12 07:47] LABS: ALB/GLOB Ratio 0.7 RATIO (0.9-2.4); AST(SGOT) 16 U/L (15-37); Alanine Aminotransfer ALT/SGPT 29 U/L (13-56); Albumin, Serum 2.4 g/dL (3.2-5.0); Alkaline Phosphatase 39 U/L (45-117); Anion Gap 10 (5-15); BUN 12 mg/dL (7-18); BUN/Creat Ratio 13.2 RATIO (10-20); Calcium,Total 7.5 mg/dL (8.5-10.1); Chloride 105 mmol/L (98-107); Creatinine, Serum 0.91 mg/dL (0.55-1.02); EST Glomerular Filtration Rate 63 mL/min (>60); Est Glom Filt Rate - Afr Amer 77 mL/min (>60); Estimated Creatinine Clearance 38.12 ml/min; Globulin 3.3 g/dL (2.2-4.2); Glucose 123 mg/dL (74-106); Magnesium 1.6 mg/dL (1.6-2.6); Phosphorus 3.3 mg/dL (2.5-4.9); Protein, Total 5.7 g/dL (6.4-8.2); Sodium Level 133 mmol/L (136-145)
[2022-01-12] MEDS: Timolol 0.5% 5ML OPTH.BTL 1 DRP EACH EYE (09:59)
[2022-01-12] MEDS: BRIMONIDINE 0.15% 5 ML Bottle 1 DRP EACH EYE ×2 (10:12→21:17)
--- NOTE | 2022-01-12 10:20 | CASEMGMT ---
TAM CELESTE Assessment: TAM CELESTE Face to room to meet w/patient for initial transition planning/care coordination assessment. TAM CELESTE introduced self and role at [facility]. Patient lying in bed, alert and oriented. Patient willing to participate in assessment and is able to answer all questions appropriately. Pt's dtr's, Barbara and Marga, @ bedside. Pt agreeable to them being present during assessment.Care providers, pharmacy, and demographics verified. PCP: Dr Ashvin Cardenas Specialists: Dr Bonilla, RA; Dr Panda, promotions executive producer; Dr Arroyo, land mobile radio technician; Dr Masoud MAYA @ [facility]; Dr Arreaga, Endo Preferred Pharmacy: [facility] [place] Insurance: [facility] Prescription Benefit: yes, [employer] Living Will/HPOA: yes, Rm Espinoza. Pt states she does not know if he would be able to make decisions for her and she is not sure if she has alternative POA's listed. Pt made aware SW can assist w/completing new HPOA, if desired. LNOK: . Pt has 2 daughters, Barbara and Marga, and 2 sons. Living Arrangements: Patient lives with in a single story home w/basement and with ramp to enter the home. Pt only goes to the basement when someone is able to assist her on the stairs. has 24/7 caregivers and dtr's also help care for him and for pt, as needed. Pt independent w/bathing/dressing most of the time. Pt able to manage her own medications. Dtr's buy groceries, help w/home tasks, appt's, and some meals. Pt needs assistance w/walking at times. Pt states she tries to stay as independent as possible and likes to do the laundry when able. Transportation: daughters DME: patient has cane, walker, pulse ox, BP machine. There is a walk-in shower built-in seat available, if needed. has several W/C's, so there may be one available for pt, if needed. Dtr's are not sure if correct size, though. SNF/HHC: Pt has been to [facility] in the past. No hx of HHC. Pt prefers to return home if able, but may be agreeable to SNF, if recommended by therapy. If pt is able to go home, she and dtr's would like HHC. Dtr's and pt inquiring about new colostomy, education, and supplies. They were made aware wound nurse, Ángela, would provide education and answer any questions they may have, and nursing staff will provide on-going education. Also made aware, if pt is able to return home, [facility] nurse would provide on-going education. Plan: TBD. SNF vs Home w/HHC, depending on course of treatment and progress w/therapy. Khanh STAPLESN RN CM
--- NOTE | 2022-01-12 11:00 | PN.SURG_ITS ---
Subjective Subjective Examined during AM rounds. She was successfully extubated this morning. She reports ongoing abdominal discomfort. She otherwise denies any questions related to her surgery. She denies any passage of gas and denies any appetite. Objective Data Objective Data Vital Signs: Vital Signs Temp Pulse Resp BP Pulse Ox O2 Del Method FiO2 98.9 F 87 20 H 123/58 H 98 Room Air 35 01/12/22 10:00 01/12/22 10:00 01/12/22 10:00 01/12/22 10:00 01/12/22 10:00 01/12/22 10:00 01/12/22 03:47 Oxygen Delivery Method Room Air Weight: 109 lb 12.643 oz Body Mass Index (BMI) 23.4 Intake & Output: Intake and Output for Last 24 Hours 01/10/22 01/11/22 01/12/22 23:59 23:59 23:59 Intake Total 481.78 / 488.23 1487.37 / 1487.37 Output Total 300 / 300 270 / 270 Balance 181.78 / 188.23 1217.37 / 1217.37 Lab / Micro Data Result Diagrams: 01/12/22 05:30 01/12/22 07:15 Labs: Laboratory Results - last 24 hr 01/11/22 13:50: WBC 7.1, RBC 4.39, Hgb 14.0, Hct 41.2, MCV 93.8, MCH 31.9, MCHC 34.0, RDW Std Deviation 56.5 H, RDW Coeff of Samreen 16.4 H, Plt Count 133 L, MPV 10.2, Immature Gran % (Auto) 0.800, Neut % (Auto) 80.3 H, Lymph % (Auto) 15.1 L, [place] % (Auto) 3.2, Eos % (Auto) 0.3, Baso % (Auto) 0.3, Absolute Neuts (auto) 5.7, Absolute Lymphs (auto) 1.08, Nucleated RBC % 0 01/11/22 13:50: Sodium 129 L, Potassium 4.4, Chloride 96 L, Carbon Dioxide 24.0, Anion Gap 9, BUN 12, Creatinine 0.84, Estim Creat Clear Calc 40.62, Est GFR (MDRD) Af Amer 84, Est GFR (MDRD) Non-Af 69, BUN/Creatinine Ratio 14.3, Glucose 82, Calcium 9.2, Total Bilirubin 2.70 H, AST 41 H, ALT 38, Alkaline Phosphatase 52, Total Protein 7.0, Albumin 3.1 L, Globulin 3.9, Albumin/Globulin Ratio 0.8 L , Lipase 31 L 01/11/22 13:50: Lactic Acid 1.2 01/11/22 15:25: Urine Color Straw, Urine Clarity Clear, Urine pH 6.5, Ur S pecific [place] 1.005, Urine Protein 15 H, Urine Glucose (UA) Normal, Urine Ketones 15 H, Urine Occult Blood 10 H, Urine Nitrite Negative, Urine Bilirubin Negative, Urine Urobilinogen Normal, Ur Leukocyte Esterase Negative, Urine RBC 0 SEEN, Urine WBC 0-5 SEEN, Ur Squamous Epith Cells 0-5 SEEN, Urine Bacteria RARE, Urine Mucus 0 SEEN 01/12/22 05:30: WBC 7.7, RBC 3.73 L, Hgb 11.7 L, Hct 35.5 L, MCV 95.2, MCH 31.4, MCHC 33.0, RDW Std Deviation 58.3 H, RDW Coeff of Samreen 16.7 H, Plt Count 142 L, MPV 10.6, Immature Gran % (Auto) 0.900, Neut % (Auto) 89.8 H, Lymph % (Auto) 5.7 L, [place] % (Auto) 3.3, Eos % (Auto) 0.0, Baso % (Auto) 0.3, Absolute Neuts (auto) 6.9, Absolute Lymphs (auto) 0.44 L, Nucleated RBC % 0, Anisocytosis 1+ 01/12/22 05:30: Sodium Cancelled, Potassium Cancelled, Chloride Cancelled, Carbon Dioxide Cancelled, Anion Gap Cancelled, BUN Cancelled, Creatinine C ancelled, Estim Creat Clear Calc Cancelled, Est GFR (MDRD) Af Amer Cancelled, Est GFR (MDRD) Non-Af Cancelled, BUN/Creatinine Ratio Cancelled, Glucose Cancelled, Calcium Cancelled, Phosphorus Cancelled, Magnesium Cancelled, Total Bilirubin Cancelled, AST Cancelled, ALT Cancelled, Alkaline Phosphatase Cancelled, Total Protein Cancelled, Albumin Cancelled, Globulin Cancelled, Albumin/Globulin Ratio Cancelled 01/12/22 07:15: Sodium 133 L, Potassium 4.0, Chloride 105, Carbon Dioxide 18.0 L , Anion Gap 10, BUN 12, Creatinine 0.91, Estim Creat Clear Calc 38.12, Est GFR (MDRD) Af Amer 77, Est GFR (MDRD) Non-Af 63, BUN/Creatinine Ratio 13.2, Glucose 123 H, Calcium 7.5 L, Phosphorus 3.3, Magnesium 1.6, Total Bilirubin 1.50 H, AST 16, ALT 29, Alkaline Phosphatase 39 L, Total Protein 5.7 L, Albumin 2.4 L, Globulin 3.3, Albumin/Globulin Ratio 0.7 L Micro: Microbiology 01/11/22 Unknown Incision/Surgical Site Wound Culture - Preliminary Gram positive organism ABG Data ABG results: ABG 01/11/22 23:30 Specimen Type ART Sample Site L Radial pH 7.40 Bicarbonate Actual 17.2 L Total CO2 18 Base Excess -8 L O2 Saturation 97 O2 % 35 ABG pCO2 27.9 L ABG pO2 86 Bowen Test Positive Respiration Rate 14 O2 Delivery Device Adult Vent Vent Mode AC Tidal Volume 400 POC PEEP 5 Radiography Diagnostic Testing: Radiology Impression Abdomen/Pelvis CT 01/11/22 13:21 IMPRESSION: Small amount of free intraperitoneal air. Mild degree of sigmoid diverticulitis with perisigmoid inflammatory changes and small amount of air in the mesentery. Hiatal hernia. Pancreatic calcifications. Electronically Signed: Emeka England MD at 15:05 EDT , Physical Exam Const oriented x3 Constitutional Narrative: Mild distress from abdominal discomfort GI GI Narrative: Laparotomy incision covered with operative dressing with thin pink drainage. Colostomy in left upper quadrant well-perfused, but without any gas or stool in the ostomy appliance. Tender to palpation about incision Assessment & Plan Assessment/Plan (1) Perforation of sigmoid colon due to diverticulitis: PLAN: Patient is postoperative day 1 from Alfonso's procedure with drain placement yesterday evening. She was successfully extubated this morning. She is currently dealing with some uncontrolled operative discomfort, but otherwise exhibits an improved clinical appearance. Neuro: As needed Dilaudid, will look to add oral meds once patient appears to have return of bowel function Pulm/CV: Extubated 01/12/2022, supplemental O2 as needed, telemetry FEN/GI: Electrolytes improved today, continue n.p.o. with NG tube to low intermittent wall suction given risk for postoperative ileus Heme/ID: Continue to trend CBC, continue empiric coverage with Cipro Flagyl and follow operative cultures Endo: Continue stress dose steroids Proph: SCDs, mobilize as much as tolerated, hold on chemoprophylaxis until hemoglobin stabilizes postop Dispo: Continue inpatient care
[2022-01-12] MEDS: HYDROmorphone 0.5 MG/0.5 ML SYRINGE IV ×3 (12:26→21:28)
[2022-01-12] MEDS: Ondansetron 4 MG/2 ML Vial IV ×2 (12:26→21:29)
[2022-01-12] MEDS: 0.9% Normal Saline 1,000 ML 75 ML IV ×2 (12:35→23:52)
--- NOTE | 2022-01-12 13:33 | WOUNDNOTE ---
Was asked to see patient for new colostomy. Pt is POD#1 perforated diverticulum with creation of an end colostomy per Dr May. patient with an abdominal binder in place. states pain is better controlled now. removed binder to assess stoma. stoma appears pink and moist. there is some bowel sweat noted in the appliance as well as a small amount of serosanguineous drainage. Pt has an NG in place. daughter present at bedside. plan to do some ostomy teaching with daughter and possibly more family tomorrow. daughter states patient may need a short stay in a NH prior to going home. Pt has been in TCU in the past. patient and daughter deny further needs at this time.
--- NOTE | 2022-01-12 14:08 | PN.HOSP_ITS ---
Subjective Subjective Patient did well with surgery. She remained intubated through the night but was extubated this morning prior to my arrival. She is currently on room air and looks good.. She states the pain she was experiencing is much improved since going to the operating room. Objective Data Objective Data Vital Signs: Vital Signs Temp Pulse Resp BP Pulse Ox O2 Del Method FiO2 98.9 F 86 23 H 105/58 L 96 Room Air 35 01/12/22 10:00 01/12/22 11:00 01/12/22 11:00 01/12/22 11:00 01/12/22 11:00 01/12/22 11:00 01/12/22 03:47 Oxygen Delivery Method Room Air Weight: 49.8 kg Body Mass Index (BMI) 23.4 Intake & Output: Intake and Output for Last 24 Hours 01/10/22 01/11/22 01/12/22 23:59 23:59 23:59 Intake Total 481.78 / 488.23 1814.87 / 1814.87 Output Total 300 / 300 420 / 420 Balance 181.78 / 188.23 1394.87 / 1394.87 Lab / Micro Data Result Diagrams: 01/12/22 05:30 01/12/22 07:15 Labs: Laboratory Results - last 24 hr 01/11/22 13:50: WBC 7.1, RBC 4.39, Hgb 14.0, Hct 41.2, MCV 93.8, MCH 31.9, MCHC 34.0, RDW Std Deviation 56.5 H, RDW Coeff of Samreen 16.4 H, Plt Count 133 L, MPV 10.2, Immature Gran % (Auto) 0.800, Neut % (Auto) 80.3 H, Lymph % (Auto) 15.1 L, [place] % (Auto) 3.2, Eos % (Auto) 0.3, Baso % (Auto) 0.3, Absolute Neuts (auto) 5.7, Absolute Lymphs (auto) 1.08, Nucleated RBC % 0 01/11/22 13:50: Sodium 129 L, Potassium 4.4, Chloride 96 L, Carbon Dioxide 24.0, Anion Gap 9, BUN 12, Creatinine 0.84, Estim Creat Clear Calc 40.62, Est GFR (MDRD) Af Amer 84, Est GFR (MDRD) Non-Af 69, BUN/Creatinine Ratio 14.3, Glucose 82, Calcium 9.2, Total Bilirubin 2.70 H, AST 41 H, ALT 38, Alkaline Phosphatase 52, Total Protein 7.0, Albumin 3.1 L, Globulin 3.9, Albumin/Globulin Ratio 0.8 L , Lipase 31 L 01/11/22 13:50: Lactic Acid 1.2 01/11/22 15:25: Urine Color Straw, Urine Clarity Clear, Urine pH 6.5, Ur Specific [place] 1.005, Urine Protein 15 H, Urine Glucose (UA) Normal, Urine Ketones 15 H, Urine Occult Blood 10 H, Urine Nitrite Negative, Urine Bilirubin Negative, Urine Urobilinogen Normal, Ur Leukocyte Esterase Negative, Urine RBC 0 SEEN, Urine WBC 0-5 SEEN, Ur Squamous Epith Cells 0-5 SEEN, Urine Bacteria RARE, Urine Mucus 0 SEEN 01/12/22 05:30: WBC 7.7, RBC 3.73 L, Hgb 11.7 L, Hct 35.5 L, MCV 95.2, MCH 31.4, MCHC 33.0, RDW Std Deviation 58.3 H, RDW Coeff of Samreen 16.7 H, Plt Count 142 L, MPV 10.6, Immature Gran % (Auto) 0.900, Neut % (Auto) 89.8 H, Lymph % (Auto) 5.7 L, [place] % (Auto) 3.3, Eos % (Auto) 0.0, Baso % (Auto) 0.3, Absolute Neuts (auto) 6.9, Absolute Lymphs (auto) 0.44 L, Nucleated RBC % 0, Anisocytosis 1+ 01/12/22 05:30: Sodium Cancelled, Potassium Cancelled, Chloride Cancelled, Carbon Dioxide Cancelled, Anion Gap Cancelled, BUN Cancelled, Creatinine Cancelled, Estim Creat Clear Calc Cancelled, Est GFR (MDRD) Af Amer Cancelled, Est GFR (MDRD) Non-Af Cancelled, BUN/Creatinine Ratio Cancelled, Glucose Cancelled, Calcium Cancelled, Phosphorus Cancelled, Magnesium Cancelled, Total Bilirubin Cancelled, AST Cancelled, ALT Cancelled, Alkaline Phosphatase Cancelled, Total Protein Cancelled, Albumin Cancelled, Globulin Cancelled, Albumin/Globulin Ratio Cancelled 01/12/22 07:15: Sodium 133 L, Potassium 4.0, Chloride 105, Carbon Dioxide 18.0 L , Anion Gap 10, BUN 12, Creatinine 0.91, Estim Creat Clear Calc 38.12, Est GFR (MDRD) Af Amer 77, Est GFR (MDRD) Non-Af 63, BUN/Creatinine Ratio 13.2, Glucose 123 H, Calcium 7.5 L, Phosphorus 3.3, Magnesium 1.6, Total Bilirubin 1.50 H, AST 16, ALT 29, Alkaline Phosphatase 39 L, Total Protein 5.7 L, Albumin 2.4 L, Globulin 3.3, Albumin/Globulin Ratio 0.7 L Micro: Microbiology 01/11/22 Unknown Incision/Surgical Site Gram Stain - Final 01/11/22 Unknown Incision/Surgical Site Wound Culture - Preliminary Gram positive organism ABG Data ABG results: ABG 01/11/22 23:30 Specimen Type ART Sample Site L Radial pH 7.40 Bicarbonate Actual 17.2 L Total CO2 18 Base Excess -8 L O2 Saturation 97 O2 % 35 ABG pCO2 27.9 L ABG pO2 86 Bowen Test Positive Respiration Rate 14 O2 Delivery Device Adult Vent Vent Mode AC Tidal Volume 400 POC PEEP 5 Radiography Diagnostic Testing: Radiology Impression Abdomen/Pelvis CT 01/11/22 13:21 IMPRESSION: Small amount of free intraperitoneal air. Mild degree of sigmoid diverticulitis with perisigmoid inflammatory changes and small amount of air in the mesentery. Hiatal hernia. Pancreatic calcifications. Electronically Signed: Emeka England MD at 15:05 EDT Reading Location ID and State: [facility] / [place] , Service support , Physical Exam Const alert, oriented x3, no apparent distress and average body habitus Constitutional Narrative: Elderly white female lying in bed, appears much improved with regards to comfort, nontoxic appearing, very pleasant General Appearance: cooperative HEENT normocephalic, head/scalp atraumatic and moist oral mucous membranes HEENT Narrative: NG tube in left nares, Mallampati is 2-3, no thrush Resp normal respiratory effort, no retractions, no use of accessory muscles and clear to auscultation bilaterally Resp Narrative: Slightly diminished at bases bilaterally Auscultation: Negative for crackles, rales, rhonchi or wheezes Cardio regular rate, regular rhythm, S1 normal heart sound, S2 normal heart sound, no murmurs, no rub, no gallops, no clicks and no JVD GI GI Narrative: Bowel sounds are hypoactive, abdomen is slightly distended, mild diffuse tenderness but improved, abdominal binder in place with new ostomy formation, ostomy is pink but no output in bag Palpation: tender Extremity no clubbing, cyanosis or edema Extremity Narrative: Ecchymosis on bilateral lower extremities, marked decrease in lean muscle mass Neuro oriented x3, CN's II-XII intact bilaterally, moves all extremities and no focal motor deficits Neuro Narrative: Generalized weakness Sensorium / Orientation: awake, alert, oriented to person, oriented to place and oriented to time Speech: speech normal Assessment & Plan Assessment/Plan (1) Perforation of sigmoid colon due to diverticulitis: (2) Acute diverticulitis: (3) Bowel perforation: (4) Adrenal insufficiency: (5) Lupus: QUALIFIERS: Systemic lupus erythematosus organ involvement: unspecified (6) Monoclonal gammopathies: (7) Autoimmune hepatitis: PLAN: Plan Perforated sigmoid colon due to acute diverticulitis -Postop day 1 status post Alfonso's with drain placement -Pain management per general surgery -Continue IV fluids at 75 cc/h -N.p.o. -Continue NG tube -Patient is at high risk for ileus--> possibly prolonged needing parenteral nutrition -Continue IV antibiotics -Follow intraoperative cultures -We will continue stress dose steroids at this time and consider possibly initiation of weaning tomorrow depending on patient condition Acute anemia -Likely related to IV fluids and intraoperative blood loss -Continue to monitor History of adrenal insufficiency -Patient is typically on hydrocortisone 10 mg daily at home -Patient received 100 mg of Solu-Cortef prior to surgery -Continue current stress dose steroids with Solu-Cortef 50 mg every 6 hours with potential initiation of weaning tomorrow -Monitor blood pressure and electrolytes History of MGUS -Follows with oncology-Dr. Panda -Has been stable with ongoing monitoring Autoimmune hepatitis -continue steroids History of lupus -Continue hydroxychloroquine Hypertension -Continue metoprolol 50 mg p.o. twice daily -If patient goes to surgery may need to convert to IV metoprolol 50 mg IV push every 6 hours if blood pressure will tolerate Hypothyroidism -Check TSH -Continue levothyroxine -If needs to be n.p.o. for extended period of time without p.o. meds will need to give IV doses weekly Chronic thrombocytopenia -History of ITP -Counts are stable and greater than 100,000 Chronic hyponatremia -Sodium levels are stable Glaucoma -Continue home eyedrops DVT prophylaxis -SCDs -Chemoprophylaxis with Lovenox CODE STATUS -Full code as per discussion with patient and family at admission in the emergency department Charges/Coding Visit Charges Inpatient E&M: 58067 Subs Hosp L2
--- NOTE | 2022-01-12 15:34 | CASEMGMT ---
Social Work As per admitting corporate director talent assessment, pt does not have LW or POA and declined further information. JIL Stern
[2022-01-12] MEDS: Glycerin/Hypromellose/PEG400 15 ml Bottle 1 DRP EACH EYE ×2 (18:55→23:51)
[2022-01-12] MEDS: Metoprolol Tartrate 5 MG/5 ML Vial IV (22:19)
[2022-01-13] VITALS (21 sets, daily range): BP systolic 109–179; BP diastolic 48–85; PULSE 88–129; RESP 18–22; TEMP 36.6–37; O2SAT 93–99
[2022-01-13 04:52] LABS: Absolute Lymphocyte Count 0.37 X10^3/uL (0.83-4.51); Absolute Neutrophil Count 7.6 X10^3/uL (2.0-7.7); Basophil# 0.01 X10^3/uL; Basophil% 0.1 % (0-1); Hematocrit 31.4 % (37-47); Hemoglobin 10.2 g/dL (12.0-15.0); Lymphocyte # 0.37 X10^3/ul (0.83-4.51); Lymphocyte % 4.4 % (19-41); Mean Corp Hgb Conc 32.5 g/dL (32-36); Mean Corpuscular Hgb 31.9 pg (27.0-32.0); Mean Corpuscular Volume 98.1 fL (81-99); Mean Platelet Vol. 10.5 fl (6.2-12.0); Monocyte# 0.43 X10^3/uL; Monocyte% 5.1 % (0-10); NRBC Flagged by Analyzer 0 % (0-5); Neutrophil # 7.59 X10^3/uL (2.7-7.7); Neutrophil % 89.5 % (47-70); POSITIVE DIFFERENTIAL YES; POSITIVE MORPHOLOGY YES; Platelet Count 120 K/mm3 (150-450); RBC Distribution Width CV 16.4 % (11.6-14.6); RBC Distribution Width SD 59.3 fl (35.1-43.9); White Blood Count 8.5 K/mm3 (4.4-11.0)
[2022-01-13 05:01] LABS: Differential Indicated SCAN CRITERIA MET
[2022-01-13] MEDS: metroNIDAZOLE 500 MG/100 ML BAG 100 MG IV ×3 (05:07→22:50)
[2022-01-13] MEDS: Hydrocortisone Sod Succinate 100 MG/2 ML Vial 50 MG IV ×2 (05:07→17:37)
[2022-01-13] MEDS: Metoprolol Tartrate 5 MG/5 ML Vial IV ×4 (05:07→22:52)
[2022-01-13] MEDS: Glycerin/Hypromellose/PEG400 15 ml Bottle 1 DRP EACH EYE ×4 (05:07→22:49)
[2022-01-13 05:12] LABS: Anisocytosis 1+; Atypical Lymphocyte 1+ %
[2022-01-13] MEDS: HYDROmorphone 0.5 MG/0.5 ML SYRINGE IV ×3 (05:21→20:40)
[2022-01-13 05:23] LABS: ALB/GLOB Ratio 0.6 RATIO (0.9-2.4); AST(SGOT) 19 U/L (15-37); Alanine Aminotransfer ALT/SGPT 24 U/L (13-56); Alkaline Phosphatase 38 U/L (45-117); Anion Gap 10 (5-15); BUN 10 mg/dL (7-18); BUN/Creat Ratio 16.4 RATIO (10-20); Calcium,Total 7.5 mg/dL (8.5-10.1); Chloride 106 mmol/L (98-107); Creatinine, Serum 0.61 mg/dL (0.55-1.02); EST Glomerular Filtration Rate 100 mL/min (>60); Est Glom Filt Rate - Afr Amer 121 mL/min (>60); Estimated Creatinine Clearance 34.69 ml/min; Globulin 3.3 g/dL (2.2-4.2); Glucose 103 mg/dL (74-106); Phosphorus 1.7 mg/dL (2.5-4.9); Potassium 3.9 mmol/L (3.5-5.1); Protein, Total 5.3 g/dL (6.4-8.2); Sodium Level 135 mmol/L (136-145)
--- NOTE | 2022-01-13 06:36 | PN.CC_ITS ---
Assessment & Plan Assessment/Plan (1) Perforation of sigmoid colon due to diverticulitis: PLAN: Plan RECOMMENDATIONS: 1. Dietary advancement per general surgery recommendations. 2. Continue perioperative antimicrobials as ordered. 3. Encourage incentive spirometer use and mobilize patient as tolerated. 4. Phosphate repletion as ordered. 5. Wean stress dose steroids as tolerated. 6. Will sign off from a critical care perspective. Please call with any additional questions. IMPRESSIONS: 1. Perforated diverticulitis, now POD #2 s/p Bharath procedure with drain placement Continue routine postoperative care/management per general surgery recommendations. 2. History of adrenal insufficiency Given overall clinical stability, will begin to wean stress dose steroids today. 3. History of MGUS/lupus/hypertension/hypothyroidism Complicates care, management, recovery and prognosis. Continue home medications as indicated. This note was generated with [employer] dictation software. It may contain incorrect words, spelling, and punctuation that were not noted in checking the note before signing. Subjective Subjective The patient was seen and examined at the bedside this morning. Events from the last 24 hours have been reviewed. The patient is currently afebrile, hemodynami ced stable and maintaining appropriate oxygen saturations on room air. The patient has done well clinically following transfer out of the intensive care unit yesterday. She is documented to be overall net +2.5 L for the hospitalization. Phosphorus is low this morning at 1.7. Objective Data Objective Data The patient's most recent lab work, culture data and imaging studies have all been personally reviewed. Vital Signs: Vital Signs Temp Pulse Resp BP Pulse Ox O2 Del Method FiO2 97.8 F 109 H 18 151/78 H 95 Room Air 35 01/13/22 02:40 01/13/22 05:07 01/13/22 02:40 01/13/22 05:07 01/13/22 02:40 01/13/22 02:40 01/12/22 03:47 Oxygen Delivery Method Room Air Weight: 109 lb 2.061 oz Body Mass Index (BMI) 23.4 Intake & Output: Intake and Output for Last 24 Hours 01/11/22 01/12/22 01/13/22 23:59 23:59 23:59 Intake Total 481.78 / 488.23 3347.37 / 3347.37 100 / 100 Output Total 300 / 300 545 / 815 540 / 540 Balance 181.78 / 188.23 2802.37 / 2532.37 -440 / -440 Lab / Micro Data Attestation: I reviewed the patient's lab results. Result Diagrams: 01/13/22 03:33 01/13/22 03:33 Labs: Laboratory Results - last 24 hr 01/12/22 07:15: Sodium 133 L, Potassium 4.0, Chloride 105, Carbon Dioxide 18.0 L , Anion Gap 10, BUN 12, Creatinine 0.91, Estim Creat Clear Calc 38.12, Est GFR (MDRD) Af Amer 77, Est GFR (MDRD) Non-Af 63, BUN/Creatinine Ratio 13.2, Glucose 123 H, Calcium 7.5 L, Phosphorus 3.3, Magnesium 1.6, Total Bilirubin 1.50 H, AST 16, ALT 29, Alkaline Phosphatase 39 L, Total Protein 5.7 L, Albumin 2.4 L, Globulin 3.3, Albumin/Globulin Ratio 0.7 L 01/13/22 03:33: WBC 8.5, RBC 3.20 L, Hgb 10.2 L, Hct 31.4 L, MCV 98.1, MCH 31.9, MCHC 32.5, RDW Std Deviation 59.3 H, RDW Coeff of [place] 16.4 H, Plt Count 120 L, MPV 10.5, Immature Gran % (Auto) 0.900, Neut % (Auto) 89.5 H, Lymph % (Auto) 4.4 L, [place] % (Auto) 5.1, Eos % (Auto) 0.0, Baso % (Auto) 0.1, Absolute Neuts (auto) 7.6, Absolute Lymphs (auto) 0.37 L, Nucleated RBC % 0, Atypical Lymphocytes 1+, Anisocytosis 1+ 01/13/22 03:33: Sodium 135 L, Potassium 3.9, Chloride 106, Carbon Dioxide 19.0 L , Anion Gap 10, BUN 10, Creatinine 0.61, Estim Creat Clear Calc 34.69, Est GFR (MDRD) Af Amer 121, Est GFR (MDRD) Non-Af 100, BUN/Creatinine Ratio 16.4, Glucose 103, Calcium 7.5 L, Phosphorus 1.7 L, Magnesium 2.0, Total Bilirubin 0.80, AST 19, ALT 24, Alkaline Phosphatase 38 L, Total Protein 5.3 L, Albumin 2.0 L, Globulin 3.3, Albumin/Globulin Ratio 0.6 L Micro: Microbiology 01/11/22 Unknown Incision/Surgical Site Gram Stain - Final 01/11/22 Unknown Incision/Surgical Site Wound Culture - Preliminary Gram positive organism Physical Exam Const alert and no apparent distress General Appearance: cooperative HEENT normocephalic and head/scalp atraumatic HEENT Narrative: Nasogastric tube in place. Eyes PERRL, EOMs intact bilaterally and conjunctivae normal Neck supple General: trachea midline Chest inspection of chest normal Resp normal respiratory effort Auscultation: Negative for rales, rhonchi or wheezes Cardio regular rate and regular rhythm Heart Sounds: murmur GI Inspection: ostomy present Palpation: tender Extremity no clubbing, cyanosis or edema Skin no rashes or lesions noted Neuro CN's II-XII intact bilaterally, moves all extremities and no focal motor deficits Psych cooperative and affect normal Charges/Coding Visit Charges Inpatient E&M: 00597 Subs Hosp L2
--- NOTE | 2022-01-13 08:18 | WOUNDNOTE ---
NG tube removed per Dr May. Pt had minimal outout through the night. pt tolerated removal well.
--- NOTE | 2022-01-13 08:24 | WOUNDNOTE ---
Colostomy appliance removed to assess stoma and peristomal skin. stoma is well budded and pink. stoma measures approx 1 1/4 in diameter. Peristomal skin is intact. cleansed skin with warm water. pat dry. applied a new 2 piece flat Son appliance with a small amount of stoma paste. daughter present in room for teaching. Pt tolerated well. daughter denies any questions or concerns. will continue teaching with family prior to discharge home.
--- NOTE | 2022-01-13 09:02 | PN.SURG_ITS ---
Subjective Subjective Patient was seen and examined during AM rounds and again in this afternoon. Overnight she reports she had lots of coughing and felt as though there is something to bring up, but the cough remains nonproductive. She believes that her abdominal pain is somewhat better today than yesterday, but finds it still difficult to get up and out of bed. Objective Data Objective Data Vital Signs: Vital Signs Temp Pulse Resp BP Pulse Ox O2 Del Method O2 Flow Rate 98.0 F 96 20 H 154/79 H 98 Nasal Cannula 2 01/13/22 08:25 01/13/22 08:25 01/13/22 08:25 01/13/22 08:25 01/13/22 08:25 01/13/22 08:25 01/13/22 08:25 FiO2 35 01/12/22 03:47 Oxygen Flow Rate (L/min) 2 Oxygen Delivery Method Nasal Cannula Weight: 109 lb 2.061 oz Body Mass Index (BMI) 23.4 Intake & Output: Intake and Output for Last 24 Hours 01/11/22 01/12/22 01/13/22 23:59 23:59 23:59 Intake Total 481.78 / 488.23 3347.37 / 3347.37 100 / 100 Output Total 300 / 300 545 / 815 570 / 570 Balance 181.78 / 188.23 2802.37 / 2532.37 -470 / -470 Lab / Micro Data Result Diagrams: 01/13/22 03:33 01/13/22 03:33 Labs: Laboratory Results - last 24 hr 01/13/22 03:33: WBC 8.5, RBC 3.20 L, Hgb 10.2 L, Hct 31.4 L, MCV 98.1, MCH 31.9, MCHC 32.5, RDW Std Deviation 59.3 H, RDW Coeff of Samreen 16.4 H, Plt Count 120 L, MPV 10.5, Immature Gran % (Auto) 0.900, Neut % (Auto) 89.5 H, Lymph % (Auto) 4.4 L, [place] % (Auto) 5.1, Eos % (Auto) 0.0, Baso % (Auto) 0.1, Absolute Neuts (auto) 7.6, Absolute Lymphs (auto) 0.37 L, Nucleated RBC % 0, Atypical Lymphocytes 1+, Anisocytosis 1+ 01/13/22 03:33: Sodium 135 L, Potassium 3.9, Chloride 106, Carbon Dioxide 19.0 L , Anion Gap 10, BUN 10, Creatinine 0.61, Estim Creat Clear Calc 34.69, Est GFR (MDRD) Af Amer 121, Est GFR (MDRD) Non-Af 100, BUN/Creatinine Ratio 16.4, Glucose 103, Calcium 7.5 L, Phosphorus 1.7 L, Magnesium 2.0, Total Bilirubin 0.80, AST 19, ALT 24, Alkaline Phosphatase 38 L, Total Protein 5.3 L, Albumin 2.0 L, Globulin 3.3, Albumin/Globulin Ratio 0.6 L Micro: Microbiology 01/11/22 Unknown Incision/Surgical Site Gram Stain - Final 01/11/22 Unknown Incision/Surgical Site Wound Culture - Preliminary Gram positive organism Physical Exam Const oriented x3 Constitutional Narrative: Mild distress from cough and abdominal discomfort GI GI Narrative: Minimal abdominal distention, laparotomy incision initially covered with saturated operative dressing (serosanguineous drainage). Patient remains tender to palpation about her laparotomy site. Dressing and ostomy appliance changed with wound and ostomy nursing. Left upper quadrant stoma is well-perfused, but there is no gas or fecal matter in the ostomy appliance. Drainage from left lower quadrant drain is serosanguineous in character Palpation: tender Extremity Extremity Narrative: Bilateral upper extremities are edematous Assessment & Plan Assessment/Plan (1) Perforation of sigmoid colon due to diverticulitis: PLAN: Patient is postoperative day 2 from Alfonso's procedure with drain placement. She complained of a cough this morning and there was minimal output from her nasogastric tube. Therefore the nasogastric tube was discontinued, but the patient was held n.p.o. I also performed the patient's first dressing change with wound and ostomy nursing at bedside and we partially withdrew the draining gina on her laparotomy incision. By design, this continues to drain serosanguineous fluid. She is currently dealing with some uncontrolled operative discomfort, but otherwise exhibits an improved clinical appearance. Neuro: As needed Dilaudid, will look to add oral meds once patient appears to have return of bowel function Pulm/CV: Extubated 01/12/2022, supplemental O2 as needed, duo nebs initiated given patient's complaints of cough, telemetry FEN/GI: Hypophosphatemia?replacement ordered by marketing representative, continue n.p.o. wit hout NG tube, but patient remains at risk for postoperative ileus. Continue to monitor ostomy for return of bowel function Heme/ID: Continue to trend CBC, continue empiric coverage with Cipro Flagyl and follow operative cultures which currently show growth of GNR's Endo: Steroid taper per medicine Proph: SCDs, mobilize as much as tolerated, hold on chemoprophylaxis until hemoglobin stabilizes postop Dispo: Continue inpatient care Charges/Coding Visit Charges Inpatient E&M: 45115 Subs Hosp L2
[2022-01-13] MEDS: BRIMONIDINE 0.15% 5 ML Bottle 1 DRP EACH EYE ×2 (10:27→21:41)
[2022-01-13] MEDS: Timolol 0.5% 5ML OPTH.BTL 1 DRP EACH EYE (10:33)
[2022-01-13] MEDS: Ciprofloxacin 400 MG/200 ML BAG 200 MG IV ×2 (10:56→20:42)
[2022-01-13] MEDS: 0.9% Saline Lock 10 ML Syringe IV ×5 (10:56→22:51)
--- NOTE | 2022-01-13 10:56 | CASEMGMT ---
Addendum entered by Karen Rasheed 01/13/22 11:32: Social Work SW did let daughter know that pt will stay in her room for the duration of her stay in TCU. Pt is not vaccinated as per daughter. Also, SW did let daughter know that pt would be covered at 100% for the first 20 days and if pt would need longer, pt will be responsible for the copay starting on day 21, should pt need that long. Daugher states understanding. Green sheet on chart in anticipation of weekend discharge. Plan: Pt to TCU, skilled, at discharge. JIL Stern Original Note: Social Work SW met w/pt and daughter Barbara in room in regard to discharge plan. Both in agreement with [facility] for rehab if needed. SW provided a list of alf facilities in pt's preferred geographic area complete with quality and resource use data. Both pt and daughter would like TCU if possible. SW spoke w/Malia in TCU, they would be able to take pt as long as she is okay with not having her eye injection while there. SW spoke w/pt and daughter, she just had the injection Sunday(January 09) so it's not due for another 6 weeks. We talked further and pt is agreeable to TCU at discharge for both strengthening and teaching. SW will place green sheet on the chart in anticipation of weekend discharge. JIL Stern
[2022-01-13] MEDS: Ipratropium/Albuterol Sulfate 3 ML AMPUL.NEB INHALATION ×2 (13:28→19:35)
--- NOTE | 2022-01-13 14:35 | PCM.PN.HOSP ---
Subjective Subjective Patient states she had a good night. Pain is tolerable. No significant output out of her ostomy. NG tube was removed this morning by general surgery. Objective Data Objective Data Vital Signs: Vital Signs Temp Pulse Resp BP Pulse Ox O2 Del Method O2 Flow Rate 98.3 F 88 18 135/62 H 99 Nasal Cannula 2 01/13/22 13:00 01/13/22 13:30 01/13/22 13:30 01/13/22 13:00 01/13/22 13:00 01/13/22 13:00 01/13/22 13:00 FiO2 35 01/12/22 03:47 Oxygen Flow Rate (L/min) 2 Oxygen Delivery Method Nasal Cannula Weight: 49.5 kg Body Mass Index (BMI) 23.4 Intake & Output: Intake and Output for Last 24 Hours 01/11/22 01/12/22 01/13/22 23:59 23:59 23:59 Intake Total 481.78 / 488.23 3347.37 / 3347.37 1004.5 / 1004.5 Output Total 300 / 300 545 / 815 820 / 820 Balance 181.78 / 188.23 2802.37 / 2532.37 184.5 / 184.5 Lab / Micro Data Result Diagrams: 01/13/22 03:33 01/13/22 03:33 Labs: Laboratory Results - last 24 hr 01/13/22 03:33: WBC 8.5, RBC 3.20 L, Hgb 10.2 L, Hct 31.4 L, MCV 98.1, MCH 31.9, MCHC 32.5, RDW Std Deviation 59.3 H, RDW Coeff of Samreen 16.4 H, Plt Count 120 L, MPV 10.5, Immature Gran % (Auto) 0.900, Neut % (Auto) 89.5 H, Lymph % (Auto) 4.4 L, [place] % (Auto) 5.1, Eos % (Auto) 0.0, Baso % (Auto) 0.1, Absolute Neuts (auto) 7.6, Absolute Lymphs (auto) 0.37 L, Nucleated RBC % 0, Atypical Lymphocytes 1+, Anisocytosis 1+ 01/13/22 03:33: Sodium 135 L, Potassium 3.9, Chloride 106, Carbon Dioxide 19.0 L, Anion Gap 10, BUN 10, Creatinine 0.61, Estim Creat Clear Calc 34.69, Est GFR (MDRD) Af Amer 121, Est GFR (MDRD) Non-Af 100, BUN/Creatinine Ratio 16.4, Glucose 103, Calcium 7.5 L, Phosphorus 1.7 L, Magnesium 2.0, Total Bilirubin 0.80, AST 19, ALT 24, Alkaline Phosphatase 38 L, Total Protein 5.3 L, Albumin 2.0 L, Globulin 3.3, Albumin/Globulin Ratio 0.6 L Micro: Microbiology 01/11/22 Unknown Incision/Surgical Site Gram Stain - Final 01/11/22 Unknown Incision/Surgical Site Wound Culture - Preliminary Gram negative efrain Physical Exam Const alert, oriented x3, no apparent distress and average body habitus Constitutional Narrative: Elderly white female lying in bed, appears comfortable and nontoxic, nontoxic appearing, very pleasant, nursing and daughter at bedside General Appearance: cooperative HEENT normocephalic, head/scalp atraumatic and moist oral mucous membranes Eyes Eyes Narrative: No scleral icterus Resp normal respiratory effort, no retractions, no use of accessory muscles and clear to auscultation bilaterally Resp Narrative: Slightly diminished at bases bilaterally Auscultation: Negative for crackles, rales, rhonchi or wheezes Cardio regular rate, regular rhythm, S1 normal heart sound, S2 normal heart sound, no murmurs, no rub, no gallops, no clicks and no JVD GI GI Narrative: Bowel sounds present but slightly hypoactive, abdomen is soft to palpation, ostomy is present and pink with some bowel sweat noted but no stool in bag, diffuse tenderness, postoperative dressings are still in place-clean dry and intact, no significant distention Extremity no clubbing, cyanosis or edema Neuro oriented x3, moves all extremities and no focal motor deficits Neuro Narrative: Generalized weakness Sensorium / Orientation: awake, alert, oriented to person, oriented to place and oriented to time Speech: speech normal Assessment & Plan Assessment/Plan (1) Perforation of sigmoid colon due to diverticulitis: (2) Acute diverticulitis: (3) Bowel perforation: (4) Adrenal insufficiency: (5) Lupus: QUALIFIERS: Systemic lupus erythematosus organ involvement: unspecified (6) Monoclonal gammopathies: (7) Autoimmune hepatitis: (8) Hypophosphatemia: PLAN: Plan Perforated sigmoid colon due to acute diverticulitis -Postop day 2 status post Alfonso's with drain placement -Pain management per general surgery -Decrease fluids to 50 cc/h -N.p.o. -NG tube discontinued -Patient is at high risk for ileus--> possibly prolonged needing parenteral nutrition -Continue IV antibiotics -Follow intraoperative cultures -Wean stress dose steroids to 50 twice daily -Incentive spirometer -Out of bed -Patient has a bed at the TCU and is okay for discharge once medically stable Hypophosphatemia -Phosphorus replaced -Repeat in a.m. Acute anemia -Likely related to IV fluids and intraoperative blood loss -Continue to monitor History of adrenal insufficiency -Patient is typically on hydrocortisone 10 mg daily at home -Patient received 100 mg of Solu-Cortef prior to surgery -Dose of steroids wean to 50 twice daily -Monitor blood pressure and electrolytes History of MGUS -Follows with oncology-Dr. Panda -Has been stable with ongoing monitoring Autoimmune hepatitis -continue steroids History of lupus -Continue hydroxychloroquine Hypertension -Metoprolol 5 mg IV push every 6 hours with hold parameters in place Hypothyroidism -TSH is within normal limits -Continue levothyroxine -Continue to monitor oral intake may need to give a dose of IV Synthroid Chronic thrombocytopenia -History of ITP -Counts are stable and greater than 100,000 Chronic hyponatremia -Sodium levels are stable Glaucoma -Continue home eyedrops DVT prophylaxis -SCDs -Chemoprophylaxis with Lovenox CODE STATUS -Full code as per discussion with patient and family at admission in the emergency department Charges/Coding Visit Charges Inpatient E&M: 27293 Subs Hosp L2
[2022-01-13] MEDS: 0.9% Normal Saline 1,000 ML 50 ML IV (17:36)
--- NOTE | 2022-01-13 23:53 | PCM.HOSP.N ---
Hospitalist Note Episode asymptomatic 5 beat SVT, K and mag today and normal.
[2022-01-14] VITALS (17 sets, daily range): BP systolic 138–170; BP diastolic 59–81; PULSE 88–153; RESP 18–32; TEMP 36.6–37.5; O2SAT 88–98
[2022-01-14] MEDS: HYDROmorphone 0.5 MG/0.5 ML SYRINGE IV ×4 (02:24→21:56)
[2022-01-14] MEDS: 0.9% Saline Lock 10 ML Syringe IV ×3 (02:25→21:57)
[2022-01-14] MEDS: Glycerin/Hypromellose/PEG400 15 ml Bottle 1 DRP EACH EYE ×4 (06:10→23:04)
[2022-01-14] MEDS: Hydrocortisone Sod Succinate 100 MG/2 ML Vial 50 MG IV (06:11)
[2022-01-14] MEDS: Metoprolol Tartrate 5 MG/5 ML Vial IV ×2 (06:11→13:14)
[2022-01-14] MEDS: 0.9% Normal Saline 1,000 ML 50 ML IV (06:12)
[2022-01-14] MEDS: metroNIDAZOLE 500 MG/100 ML BAG 100 MG IV ×3 (06:12→22:00)
[2022-01-14] MEDS: Ipratropium/Albuterol Sulfate 3 ML AMPUL.NEB INHALATION ×3 (06:27→19:20)
[2022-01-14 06:34] LABS: Absolute Lymphocyte Count 1.04 X10^3/uL (0.83-4.51); Absolute Neutrophil Count 7.8 X10^3/uL (2.0-7.7); Basophil# 0.02 X10^3/uL; Basophil% 0.2 % (0-1); Eosinophil# 0.07 X10^3/uL; Eosinophils% 0.7 % (0-5); Hematocrit 30.7 % (37-47); Hemoglobin 9.6 g/dL (12.0-15.0); Lymphocyte # 1.04 X10^3/ul (0.83-4.51); Lymphocyte % 10.8 % (19-41); Mean Corp Hgb Conc 31.3 g/dL (32-36); Mean Corpuscular Hgb 31.1 pg (27.0-32.0); Mean Corpuscular Volume 99.4 fL (81-99); Mean Platelet Vol. 10.5 fl (6.2-12.0); Monocyte# 0.57 X10^3/uL; Monocyte% 5.9 % (0-10); NRBC Flagged by Analyzer 0 % (0-5); Neutrophil # 7.83 X10^3/uL (2.7-7.7); Neutrophil % 81.3 % (47-70); Platelet Count 134 K/mm3 (150-450); RBC Distribution Width CV 16.8 % (11.6-14.6); Red Blood Count 3.09 M/mm3 (4.2-5.4); White Blood Count 9.6 K/mm3 (4.4-11.0)
[2022-01-14 06:54] LABS: Anion Gap 6 (5-15); BUN 11 mg/dL (7-18); BUN/Creat Ratio 16.4 RATIO (10-20); Calcium,Total 7.7 mg/dL (8.5-10.1); Chloride 110 mmol/L (98-107); Creatinine, Serum 0.67 mg/dL (0.55-1.02); EST Glomerular Filtration Rate 90 mL/min (>60); Est Glom Filt Rate - Afr Amer 108 mL/min (>60); Estimated Creatinine Clearance 34.41 ml/min; Glucose 97 mg/dL (74-106); Magnesium 1.9 mg/dL (1.6-2.6); Phosphorus 1.3 mg/dL (2.5-4.9); Potassium 3.4 mmol/L (3.5-5.1); Sodium Level 138 mmol/L (136-145)
[2022-01-14] MEDS: Furosemide 20 MG/2 ML VIAL IV (10:43)
[2022-01-14] MEDS: Ciprofloxacin 400 MG/200 ML BAG 200 MG IV (10:44)
[2022-01-14] MEDS: Timolol 0.5% 5ML OPTH.BTL 1 DRP EACH EYE (10:45)
[2022-01-14] MEDS: BRIMONIDINE 0.15% 5 ML Bottle 1 DRP EACH EYE ×2 (10:46→23:03)
--- NOTE | 2022-01-14 11:00 | PN.SURG_ITS ---
Subjective Subjective no gas in bag has minimal abdominal pain Objective Data Objective Data Vital Signs: Vital Signs Temp Pulse Resp BP Pulse Ox O2 Del Method O2 Flow Rate 98.1 F 96 20 H 146/62 H 93 Nasal Cannula 2 01/14/22 06:04 01/14/22 06:27 01/14/22 06:27 01/14/22 06:11 01/14/22 06:27 01/14/22 06:27 01/14/22 09:13 FiO2 35 01/12/22 03:47 Oxygen Flow Rate (L/min) 2 Oxygen Delivery Method Nasal Cannula Weight: 49.4 kg Body Mass Index (BMI) 23.4 Intake & Output: Intake and Output for Last 24 Hours 01/12/22 01/13/22 01/14/22 23:59 23:59 23:59 Intake Total 3347.37 / 3347.37 1957.0 / 1957.0 730 / 730 Output Total 545 / 815 1180 / 1180 320 / 320 Balance 2802.37 / 2532.37 777.0 / 777.0 410 / 410 Lab / Micro Data Attestation: I reviewed the patient's lab results. Result Diagrams: 01/14/22 05:25 01/14/22 05:25 Labs: Laboratory Results - last 24 hr 01/14/22 05:25: WBC 9.6, RBC 3.09 L, Hgb 9.6 L, Hct 30.7 L, MCV 99.4 H, MCH 31.1, MCHC 31.3 L, RDW Std Deviation 61.0 H, RDW Coeff of Samreen 16.8 H, Plt Count 134 L, MPV 10.5, Immature Gran % (Auto) 1.100 H, Neut % (Auto) 81.3 H, Lymph % (Auto) 10.8 L, [place] % (Auto) 5.9, Eos % (Auto) 0.7, Baso % (Auto) 0.2, Absolute Neuts (auto) 7.8 H, Absolute Lymphs (auto) 1.04, Nucleated RBC % 0 01/14/22 05:25: Sodium 138, Potassium 3.4 L, Chloride 110 H, Carbon Dioxide 22 .0, Anion Gap 6, BUN 11, Creatinine 0.67, Estim Creat Clear Calc 34.41, Est GFR (MDRD) Af Amer 108, Est GFR (MDRD) Non-Af 90, BUN/Creatinine Ratio 16.4, Glucose 97, Calcium 7.7 L, Phosphorus 1.3 L, Magnesium 1.9 Micro: Microbiology 01/14/22 02:30 Sputum, Expectorated/Coughed Gram Stain - Final 01/11/22 Unknown Incision/Surgical Site Gram Stain - Final 01/11/22 Unknown Incision/Surgical Site Wound Culture - Final Enterobacter aerogenes Physical Exam Const alert Resp normal respiratory effort Effort and Inspection: able to speak in complete sentences GI GI Narrative: abdomen is soft and benign dressing intact stoma appearing healthy mucosa - no gas in bag Assessment & Plan Assessment/Plan (1) Status post colon resection: PLAN: continue present therapy
[2022-01-14] MEDS: LEVOTHYROXINE SODIUM 200 MCG VIAL 37.5 MCG IV (11:02)
--- NOTE | 2022-01-14 13:24 | PCM.PN.HOSP ---
Subjective Subjective No events overnight. No nausea. Patient states overall her abdominal pain is not bad but does complain of increased pain with coughing. No significant ostomy output as of yet. Objective Data Objective Data Vital Signs: Vital Signs Temp Pulse Resp BP Pulse Ox O2 Del Method O2 Flow Rate 98.1 F 96 20 H 138/81 H 96 Nasal Cannula 2 01/14/22 08:30 01/14/22 13:14 01/14/22 12:44 01/14/22 08:30 01/14/22 08:30 01/14/22 08:30 01/14/22 09:13 FiO2 35 01/12/22 03:47 Oxygen Flow Rate (L/min) 2 Oxygen Delivery Method Nasal Cannula Weight: 49.4 kg Body Mass Index (BMI) 23.4 Intake & Output: Intake and Output for Last 24 Hours 01/12/22 01/13/22 01/14/22 23:59 23:59 23:59 Intake Total 3347.37 / 3347.37 1957.0 / 1957.0 930 / 930 Output Total 545 / 815 1180 / 1180 350 / 350 Balance 2802.37 / 2532.37 777.0 / 777.0 580 / 580 Lab / Micro Data Result Diagrams: 01/14/22 05:25 01/14/22 05:25 Labs: Laboratory Results - last 24 hr 01/14/22 05:25: WBC 9.6, RBC 3.09 L, Hgb 9.6 L, Hct 30.7 L, MCV 99.4 H, MCH 31.1, MCHC 31.3 L, RDW Std Deviation 61.0 H, RDW Coeff of Samreen 16.8 H, Plt Count 134 L, MPV 10.5, Immature Gran % (Auto) 1.100 H, Neut % (Auto) 81.3 H, Lymph % (Auto) 10.8 L, [place] % (Auto) 5.9, Eos % (Auto) 0.7, Baso % (Auto) 0.2, Absolute Neuts (auto) 7.8 H, Absolute Lymphs (auto) 1.04, Nucleated RBC % 0 01/14/22 05:25: Sodium 138, Potassium 3.4 L, Chloride 110 H, Carbon Dioxide 22.0, Anion Gap 6, BUN 11, Creatinine 0.67, Estim Creat Clear Calc 34.41, Est GFR (MDRD) Af Amer 108, Est GFR (MDRD) Non-Af 90, BUN/Creatinine Ratio 16.4, Glucose 97, Calcium 7.7 L, Phosphorus 1.3 L, Magnesium 1.9 Micro: Microbiology 01/14/22 02:30 Sputum, Expectorated/Coughed Gram Stain - Final 01/11/22 Unknown Incision/Surgical Site Gram Stain - Final 01/11/22 Unknown Incision/Surgical Site Wound Culture - Final Enterobacter aerogenes Physical Exam Const alert, oriented x3, no apparent distress and average body habitus Constitutional Narrative: Elderly white female lying in bed, appears comfortable and nontoxic, nontoxic appearing, very pleasant, daughter at bedside General Appearance: cooperative HEENT normocephalic, head/scalp atraumatic and moist oral mucous membranes HEENT Narrative: Mallampati 2, no thrush Resp normal respiratory effort, no retractions, no use of accessory muscles and clear to auscultation bilaterally Auscultation: Negative for crackles, rales, rhonchi or wheezes Cardio regular rate, regular rhythm, S1 normal heart sound, S2 normal heart sound, no murmurs, no rub, no gallops, no clicks and no JVD GI GI Narrative: Bowel sounds present but slightly hypoactive, abdomen is soft to palpation, ostomy is present and pink with some bowel sweat noted as well as some liquidy brown output that looks more like bile but no stool in bag, mild diffuse tenderness, postoperative dressings are still in place-clean dry and intact, no significant distention Extremity no clubbing, cyanosis or edema Extremity Narrative: Ecchymosis on bilateral lower extremities, marked decrease in lean muscle mass Neuro oriented x3, CN's II-XII intact bilaterally, moves all extremities and no focal motor deficits Neuro Narrative: Generalized weakness Sensorium / Orientation: awake, alert, oriented to person, oriented to place and oriented to time Speech: speech normal Assessment & Plan Assessment/Plan (1) Perforation of sigmoid colon due to diverticulitis: (2) Acute diverticulitis: (3) Bowel perforation: (4) Adrenal insufficiency: (5) Lupus: QUALIFIERS: Systemic lupus erythematosus organ involvement: unspecified (6) Monoclonal gammopathies: (7) Autoimmune hepatitis: (8) Hypophosphatemia: (9) Hypokalemia: PLAN: Plan Perforated sigmoid colon due to acute diverticulitis -Postop day 3 status post Alfonso's with drain placement -Pain management per general surgery -Discontinue IV fluids -Lasix 20 mg x 1 dose -Clear liquid diet started -Continue IV antibiotics -Intraoperative cultures are growing Enterobacter aerogenes sensitive to ciprofloxacin -Wean stress dose steroids to 30 mg daily -Restart oral medications -Incentive spirometer -Out of bed -Patient has a bed at the TCU and is okay for discharge once medically stable Hypophosphatemia -Repeat phosphorus replacement -Repeat in a.m. Hypokalemia -Potassium bolus -Repeat a.m. potassium Acute anemia -Likely related to IV fluids and intraoperative blood loss -Counts are relatively stable -Continue to monitor -Repeat CBC in a.m. History of adrenal insufficiency -Patient is typically on hydrocortisone 10 mg daily at home -Patient received 100 mg of Solu-Cortef prior to surgery -Wean stress dose steroids to 30 mg daily and if continues to do well we will put back on home dose tomorrow -Monitor blood pressure and electrolytes History of MGUS -Follows with oncology-Dr. Panda -Has been stable with ongoing monitoring Autoimmune hepatitis -continue steroids History of lupus -Continue hydroxychloroquine Hypertension -Convert metoprolol to oral 50 mg twice daily of metoprolol succinate Hypothyroidism -TSH is within normal limits -IV levothyroxine given today -Restart oral levothyroxine tomorrow Chronic thrombocytopenia -History of ITP -Counts are stable and greater than 100,000 Chronic hyponatremia -Sodium levels are stable -Sodium currently normal at 138 Glaucoma -Continue home eyedrops DVT prophylaxis -SCDs -Chemoprophylaxis with Lovenox CODE STATUS -Full code as per discussion with patient and family at admission in the emergency department Charges/Coding Visit Charges Inpatient E&M: 84235 Subs Hosp L2
[2022-01-14] MEDS: Metoprolol(XL)Succ 50 MG Tablet PO (22:32)
[2022-01-15] VITALS (21 sets, daily range): BP systolic 111–139; BP diastolic 51–66; PULSE 93–144; RESP 16–30; TEMP 36.9–37.7; O2SAT 90–99
[2022-01-15] MEDS: Metoprolol Tartrate 5 MG/5 ML Vial IV ×4 (00:01→18:11)
[2022-01-15] MEDS: 0.9% Saline Lock 10 ML Syringe IV ×5 (00:02→21:30)
[2022-01-15] MEDS: Albuterol 2.5 MG/3 ML VIAL.NEB. INHALATION (00:19)
[2022-01-15] MEDS: Ciprofloxacin 400 MG/200 ML BAG 200 MG IV ×3 (00:23→21:30)
[2022-01-15] MEDS: Furosemide 20 MG/2 ML VIAL IV (01:14)
[2022-01-15] MEDS: HYDROmorphone 0.5 MG/0.5 ML SYRINGE IV (02:25)
[2022-01-15 05:45] LABS: Absolute Lymphocyte Count 1.43 X10^3/uL (0.83-4.51); Absolute Neutrophil Count 8.1 X10^3/uL (2.0-7.7); Basophil# 0.04 X10^3/uL; Basophil% 0.4 % (0-1); Eosinophil# 0.08 X10^3/uL; Eosinophils% 0.7 % (0-5); Hematocrit 34.6 % (37-47); Hemoglobin 11.1 g/dL (12.0-15.0); Lymphocyte # 1.43 X10^3/ul (0.83-4.51); Lymphocyte % 13.2 % (19-41); Mean Corp Hgb Conc 32.1 g/dL (32-36); Mean Corpuscular Hgb 30.9 pg (27.0-32.0); Mean Corpuscular Volume 96.4 fL (81-99); Monocyte# 0.97 X10^3/uL; Monocyte% 8.9 % (0-10); NRBC Flagged by Analyzer 0 % (0-5); Neutrophil % 74.8 % (47-70); Platelet Count 151 K/mm3 (150-450); RBC Distribution Width CV 16.4 % (11.6-14.6); Red Blood Count 3.59 M/mm3 (4.2-5.4); White Blood Count 10.8 K/mm3 (4.4-11.0)
[2022-01-15] MEDS: metroNIDAZOLE 500 MG/100 ML BAG 100 MG IV ×3 (06:00→22:45)
[2022-01-15] MEDS: Glycerin/Hypromellose/PEG400 15 ml Bottle 1 DRP EACH EYE ×3 (06:19→17:46)
[2022-01-15 06:24] LABS: Anion Gap 12 (5-15); BUN 11 mg/dL (7-18); BUN/Creat Ratio 15.8 RATIO (10-20); Calcium,Total 7.9 mg/dL (8.5-10.1); Chloride 107 mmol/L (98-107); EST Glomerular Filtration Rate 85 mL/min (>60); Est Glom Filt Rate - Afr Amer 103 mL/min (>60); Estimated Creatinine Clearance 34.41 ml/min; Glucose 130 mg/dL (74-106); Magnesium 1.8 mg/dL (1.6-2.6); Phosphorus 2.1 mg/dL (2.5-4.9); Potassium 3.1 mmol/L (3.5-5.1); Sodium Level 139 mmol/L (136-145)
--- NOTE | 2022-01-15 07:04 | RAD_ITS ---
STUDY: X-RAY CHEST REASON FOR EXAM: Female, 81 years old. sob TECHNIQUE: AP portable. 7:04 AM. COMPARISON: 06/30/2021. FINDINGS: LUNGS: Hazy opacities in the mid to lower lungs with small bilateral pleural effusions. No pneumothorax. MEDIASTINUM: Aorta atherosclerotic. CARDIAC SILHOUETTE: Enlarged. BONES AND SOFT TISSUES: No acute abnormalities. Skin maria a upper abdomen. RAD/Chest 1 View (Portable) IMPRESSION: Basilar opacities and small pleural effusions possible component of mild pulmonary edema. Cardiomegaly. Electronically Signed: Christin Bird MD at 7:58 EDT ,
[2022-01-15] MEDS: Ipratropium/Albuterol Sulfate 3 ML AMPUL.NEB INHALATION ×3 (07:20→19:20)
[2022-01-15] MEDS: Ondansetron 4 MG/2 ML Vial IV (07:50)
[2022-01-15] MEDS: Potassium Chloride 10mEq/100mL 10 MEQ/100 ML IV.SOLN. 100 MEQ IV BOLUS ×8 (09:29→18:56)
[2022-01-15] MEDS: Furosemide 40 MG/4 ML Vial IV (09:29)
[2022-01-15] MEDS: Timolol 0.5% 5ML OPTH.BTL 1 DRP EACH EYE (09:30)
[2022-01-15] MEDS: BRIMONIDINE 0.15% 5 ML Bottle 1 DRP EACH EYE ×2 (09:31→22:44)
[2022-01-15] MEDS: Menthol/Lanolin/Calamine/Znox 113 GM Tube 1 APPLIC TOPICAL (09:33)
[2022-01-15] MEDS: Hydrocortisone Sod Succinate 100 MG/2 ML Vial 10 MG IV (09:36)
--- NOTE | 2022-01-15 09:39 | ECHOD_ITS ---
Reason For Study: Murmur Procedure This was a 2D Doppler, Color Flow transthoracic echocardiogram. The exam was of adequate technical quality. Exam performed portable in patient room. Left Ventricle Normal LV size. Sigmoid septum. Left ventricular systolic function is normal. The estimated ejection fraction is 65 %. No regional wall motion abnormalities noted. Right Ventricle Normal RV size. Normal systolic function. Atria The left atrium is mildly enlarged. Normal right atrium. No doppler evidence for ASD. Mitral Valve There is moderate mitral annular calcification. Extension of the mitral annular calcification on the base of the posterior mitral valve leaflet. Mild focal mitral valve calcification of the anterior leaflet. Mild-Moderate mitral valve stenosis. Moderately severe (3+) eccentric mitral valve insufficiency. Tricuspid Valve Normal tricuspid valve. Trivial tricuspid valve insufficiency. Right ventricular systolic pressure estimated to be 48 mmHg. Aortic Valve Trisinus/trileaflet aortic valve. Mild diffuse aortic valve thickening. Mild diffuse aortic valve calcification. Aortic valve sclerosis/mild aortic valve stenosis. Mild-Moderate (1-2+) aortic valve insufficiency. Pulmonic Valve The pulmonic valve is not well visualized. Mild (1+) pulmonic valve insufficiency. Great Vessels Normal sized aortic root. Pericardium/Pleural No pericardial effusion. Epicardial fat. Echo lucency compatible with a pleural effusion. MMode/2D Measurements & Calculations LVIDd: 5.0 cm IVSd: 1.1 cm LVOT diam: 2.1 cm LVIDs: 3.4 cm LVPWd: 1.1 cm LVOT area: 3.5 cm2 RVDd: 3.0 cm FS: 32.0 % Ao root diam: 2.9 cm LAV(MOD-bp): 80.1 ml LVAd ap4: 18.7 cm2 LAV(MOD-bp) Indexed: 57.2 ml/m2 LVLd ap4: 6.5 cm LAV(MOD-sp2): 90.1 ml EDV(MOD-sp4): 45.1 ml LAV(MOD-sp4): 56.4 ml EDV(sp4-el): 45.9 ml LVAs ap4: 12.0 cm2 LVLs ap4: 5.9 cm ESV(MOD-sp4): 20.8 ml ESV(sp4-el): 20.5 ml EF(MOD-sp4): 53.8 % EF(sp4-el): 55.4 % SV(MOD-sp4): 24.2 ml SV(sp4-el): 25.4 ml LA A4 area: 21.4 cm2 LA dimension(2D): 4.6 cm RA A4 area: 10.0 cm2 Time Measurements MV dec time: 0.27 sec Doppler Measurements & Calculations MV E max leoncio: 136.2 cm/sec Lat Peak E' Leoncio: 5.5 cm/sec Med Peak E' Leoncio: 3.0 cm/sec MV A max leoncio: 130.5 cm/sec E/E' lat: 24.8 E/E' med: 45.9 MV E/A: 1.0 MV V2 max: 171.5 cm/sec MV P1/2t max leoncio: 172.9 cm/sec Ao V2 max: 232.3 cm/sec MV max P.8 mmHg MV P1/2t: 80.3 msec Ao max P.6 mmHg MV V2 mean: 119.6 cm/sec Ao V2 mean: 151.7 cm/sec MV mean P.3 mmHg MV dec slope: 630.2 cm/sec2 Ao mean P.5 mmHg MV V2 VTI: 40.7 cm MVA(P1/2t): 2.7 cm2 Ao V2 VTI: 37.1 cm MVA(VTI): 1.8 cm2 MARY(I,D): 2.0 cm2 MARY(V,D): 2.0 cm2 AI max leoncio: 387.8 cm/sec LV V1 max: 130.3 cm/sec SV(LVOT): 73.5 ml AI max P.2 mmHg LV V1 max P.8 mmHg LV V1 mean P.2 mmHg AI dec slope: 341.6 cm/sec2 LV V1 mean: 83.8 cm/sec AI P1/2t: 332.6 msec LV V1 VTI: 21.0 cm PA V2 max: 62.1 cm/sec TR max leoncio: 336.6 cm/sec TR max P.3 mmHg ECHO/Echo Complete Interpretation Summary Left ventricular systolic function is normal. The estimated ejection fraction is 65 %. Sigmoid septum. The left atrium is mildly enlarged. There is moderate mitral annular calcification. Extension of the mitral annular calcification on the base of the posterior mitr al valve leaflet. Mild focal mitral valve calcification of the anterior leaflet. Mild-Moderate mitral valve stenosis. Moderately severe (3+) eccentric mitral valve insufficiency. Trivial tricuspid valve insufficiency. Aortic valve sclerosis/mild aortic valve stenosis. Mild-Moderate (1-2+) aortic valve insufficiency. Mild (1+) pulmonic valve insufficiency. Epicardial fat. Echo lucency compatible with a pleural effusion. Right ventricular systolic pressure estimated to be 48 mmHg c/w pulmonary hyper tension. Transmitral diastolic flow velocities suggest diastolic dysfunction (pseudonorm al pattern). Ordering Physician: Rosalba Villalta Referring Physician: Ashvin Cardenas Performed By: Marcela Mon, ZEV, RVT
--- NOTE | 2022-01-15 10:01 | NURSING ---
Dr. Mccann aware patient is nauseated and Zofran given IV nausea continues.
--- NOTE | 2022-01-15 10:19 | PCM.PN.HOSP ---
Subjective Subjective Patient with some respiratory distress overnight. Was given IV metoprolol and 20 mg of Lasix. Has been weaned down to 6 L this morning and sats are 97% on this. Her breathing is much better per the daughter who is at the bedside. It appears that she has some volume overload. Patient also with some nausea but no robina vomiting however she did have some dry heaving. Objective Data Objective Data Vital Signs: Vital Signs Temp Pulse Resp BP Pulse Ox O2 Del Method O2 Flow Rate 98.5 F 114 H 26 H 111/60 94 Nasal Cannula 6 01/15/22 02:30 01/15/22 07:54 01/15/22 07:20 01/15/22 02:30 01/15/22 07:20 01/15/22 07:20 01/15/22 07:20 FiO2 50 01/15/22 01:25 Oxygen Flow Rate (L/min) 6 Oxygen Delivery Method Nasal Cannula Weight: 49.3 kg Body Mass Index (BMI) 23.4 Intake & Output: Intake and Output for Last 24 Hours 01/13/22 01/14/22 01/15/22 23:59 23:59 23:59 Intake Total 1957.0 / 1957.0 2083.3333 / 2083.3333 300 / 300 Output Total 1180 / 1180 1700 / 1900 1465 / 1465 Balance 777.0 / 777.0 383.3333 / 183.3333 -1165 / -1165 Lab / Micro Data Result Diagrams: 01/15/22 04:52 01/15/22 04:52 Labs: Laboratory Results - last 24 hr 01/15/22 04:52: WBC 10.8, RBC 3.59 L, Hgb 11.1 L, Hct 34.6 L, MCV 96.4, MCH 30.9, MCHC 32.1, RDW Std Deviation 58.0 H, RDW Coeff of Samreen 16.4 H, Plt Count 151, MPV 10.0, Immature Gran % (Auto) 2.000 H, Neut % (Auto) 74.8 H, Lymph % (Auto) 13.2 L, [place] % (Auto) 8.9, Eos % (Auto) 0.7, Baso % (Auto) 0.4, Absolute Neuts (auto) 8.1 H, Absolute Lymphs (auto) 1.43, Nucleated RBC % 0 01/15/22 04:52: Sodium 139, Potassium 3.1 L, Chloride 107, Carbon Dioxide 20.0 L, Anion Gap 12, BUN 11, Creatinine 0.70, Estim Creat Clear Calc 34.41, Est GFR (MDRD) Af Amer 103, Est GFR (MDRD) Non-Af 85, BUN/Creatinine Ratio 15.8, Glucose 130 H, Calcium 7.9 L, Phosphorus 2.1 L, Magnesium 1.8 Micro: Microbiology 01/11/22 Unknown Incision/Surgical Site Gram Stain - Final 01/11/22 Unknown Incision/Surgical Site Wound Culture - Final Enterobacter aerogenes 01/11/22 Unknown Incision/Surgical Site Anaerobic Culture - Preliminary Checking for anaerobes, further studies to follow. 01/14/22 02:30 Sputum, Expectorated/Coughed Gram Stain - Final Radiography Diagnostic Testing: Radiology Impression Chest X-Ray 01/15/22 07:04 IMPRESSION: Basilar opacities and small pleural effusions possible component of mild pulmonary edema. Cardiomegaly. Electronically Signed: Christin Bird MD at 7:58 EDT , Physical Exam Const alert, oriented x3, no apparent distress and average body habitus Constitutional Narrative: Elderly white female lying in bed, appears extremely tired. Patient did not sleep well last night, however nontoxic, daughter is at the bedside General Appearance: cooperative HEENT normocephalic and head/scalp atraumatic HEENT Narrative: Oral mucous membranes are dry Eyes PERRL, EOMs intact bilaterally and conjunctivae normal Eyes Narrative: No scleral icterus Neck no lymphadenopathy, supple and no carotid bruits Neck Narrative: Trachea midline, mild JVD Resp no retractions, no use of accessory muscles and clear to auscultation bilaterally Resp Narrative: Few crackles at bases bilaterally, tachypnea with some conversational dyspnea Auscultation: crackles; Negative for rales, rhonchi or wheezes Cardio regular rhythm, S1 normal heart sound, S2 normal heart sound, no murmurs, no rub, no gallops, no clicks and no JVD Cardio Narrative: Tachycardia GI GI Narrative: Bowel sounds hypoactive, abdomen is soft to palpation, ostomy is present and pink with some bowel sweat noted as well as some liquidy brown output at the stoma, mild diffuse tenderness, postoperative dressings are still in place-clean dry and intact, no significant distention Auscultation: hypoactive bowel sounds Palpation: tender Extremity Extremity Narrative: Trace bilateral lower extremity edema, decreased lean muscle mass, ecchymosis scattered, no clubbing or cyanosis Skin no rashes or lesions noted, no wounds, skin turgor normal, no jaundice, no petechiae and no mottling Skin Narrative: Scattered ecchymosis bilateral lower extremities, right upper extremity midline in place-clean and dry dressing Hair: general thinning Neuro oriented x3, CN's II-XII intact bilaterally, moves all extremities and no focal motor deficits Neuro Narrative: Generalized weakness Sensorium / Orientation: awake, alert, oriented to person, oriented to place and oriented to time Speech: speech normal Psych Psych Narrative: Appears very fatigued today affect is flat Assessment & Plan Assessment/Plan (1) Perforation of sigmoid colon due to diverticulitis: (2) Acute diverticulitis: (3) Bowel perforation: (4) Adrenal insufficiency: (5) Lupus: QUALIFIERS: Systemic lupus erythematosus organ involvement: unspecified (6) Monoclonal gammopathies: (7) Autoimmune hepatitis: (8) Hypophosphatemia: (9) Hypokalemia: PLAN: Plan Perforated sigmoid colon due to acute diverticulitis -Postop day 4 status post Alfonso's with drain placement -Pain management per general surgery -Clear liquid diet started--> Limited per surgery await further input today -Continue IV antibiotics -Intraoperative cultures are growing Enterobacter aerogenes sensitive to ciprofloxacin -Wean stress dose steroids to 10 mg daily which is her home dose -Incentive spirometer -Out of bed -Patient has a bed at the TCU and is okay for discharge once medically stable Acute hypoxic respiratory failure secondary to volume overload -Cardiac murmur on exam today at the mitral valve area-we will obtain echocardiogram -Last echocardiogram in our system is from 2012 and demonstrated an EF of 60% with mild concentric LVH and mild focal valvular calcifications on the mitral valve along with mild mitral valve calcifications that are annular -Chest x-ray is consistent with volume overload -Currently requiring 6 L nasal cannula however oxygen saturations are 97% -Wean O2 as able -Repeat Lasix 40 mg today and reevaluate on a daily basis -Convert metoprolol back to IV as her heart rate has been elevated and I suspect this contributed into some pulmonary edema with delayed filling time and I am unsure about oral absorption at this time given got surgery -Sputum culture sent however doubt infection Hypophosphatemia -Repeat phosphorus replacement -Repeat in a.m. Hypokalemia -Potassium bolus -Repeat a.m. potassium Acute anemia -Likely related to IV fluids and intraoperative blood loss -Counts stable -Continue to monitor -Repeat CBC in a.m. History of adrenal insufficiency -Patient is typically on hydrocortisone 10 mg daily at home -Patient received 100 mg of Solu-Cortef prior to surgery -Wean steroids to Solu-Cortef 10 mg IV push daily which is equivalent to her home dose -Initiate p.o. once p.o. intake has improved -Monitor blood pressure and electrolytes History of MGUS -Follows with oncology-Dr. Panda -Has been stable with ongoing monitoring Autoimmune hepatitis -continue steroids History of lupus -Continue hydroxychloroquine Hypertension -Continue restart IV metoprolol 5 mg every 6 hours Hypothyroidism -TSH is within normal limits -IV levothyroxine given today -Restart oral levothyroxine tomorrow Chronic thrombocytopenia -History of ITP -Platelets are currently normal at 151,000 Chronic hyponatremia -Sodium levels are stable -Sodium currently normal at 138 Glaucoma -Continue home eyedrops DVT prophylaxis -SCDs -Chemoprophylaxis with Lovenox CODE STATUS -Full code as per discussion with patient and family at admission in the emergency department Charges/Coding Visit Charges Inpatient E&M: 17896 Subs Hosp L3
[2022-01-15] MEDS: Levothyroxine 75 MCG Tablet PO (11:02)
--- NOTE | 2022-01-15 11:28 | PCM.PN.SRG ---
Subjective Subjective had episode of possible CHF/fluid overload still with no output per stoma - suspect ileus have added PT for support to increase mobility - patient feels weak and tired Objective Data Objective Data Vital Signs: Vital Signs Temp Pulse Resp BP Pulse Ox O2 Del Method O2 Flow Rate 99.8 F H 105 H 19 H 139/61 H 99 Nasal Cannula 5 01/15/22 08:30 01/15/22 08:30 01/15/22 08:30 01/15/22 08:30 01/15/22 08:30 01/15/22 08:30 01/15/22 08:30 FiO2 50 01/15/22 01:25 Oxygen Flow Rate (L/min) 5 Oxygen Delivery Method Nasal Cannula Weight: 49.3 kg Body Mass Index (BMI) 23.4 Intake & Output: Intake and Output for Last 24 Hours 01/13/22 01/14/22 01/15/22 23:59 23:59 23:59 Intake Total 1957.0 / 1957.0 2083.3333 / 2083.3333 400 / 400 Output Total 1180 / 1180 1700 / 1900 1465 / 1465 Balance 777.0 / 777.0 383.3333 / 183.3333 -1065 / -1065 Lab / Micro Data Attestation: I reviewed the patient's lab results. Result Diagrams: 01/15/22 04:52 01/15/22 04:52 Labs: Laboratory Results - last 24 hr 01/15/22 04:52: WBC 10.8, RBC 3.59 L, Hgb 11.1 L, Hct 34.6 L, MCV 96.4, MCH 30.9, MCHC 32.1, RDW Std Deviation 58.0 H, RDW Coeff of Samreen 16.4 H, Plt Count 151, MPV 10.0, Immature Gran % (Auto) 2.000 H, Neut % (Auto) 74.8 H, Lymph % (Auto) 13.2 L, [place] % (Auto) 8.9, Eos % (Auto) 0.7, Baso % (Auto) 0.4, Absolute Neuts (auto) 8.1 H, Absolute Lymphs (auto) 1.43, Nucleated RBC % 0 01/15/22 04:52: Sodium 139, Potassium 3.1 L, Chloride 107, Carbon Dioxide 20.0 L, Anion Gap 12, BUN 11, Creatinine 0.70, Estim Creat Clear Calc 34.41, Est GFR (MDRD) Af Amer 103, Est GFR (MDRD) Non-Af 85, BUN/Creatinine Ratio 15.8, Glucose 130 H, Calcium 7.9 L, Phosphorus 2.1 L, Magnesium 1.8 Micro: Microbiology 01/11/22 Unknown Incision/Surgical Site Gram Stain - Final 01/11/22 Unknown Incision/Surgical Site Wound Culture - Final Enterobacter aerogenes 01/11/22 Unknown Incision/Surgical Site Anaerobic Culture - Preliminary Checking for anaerobes, further studies to follow. 01/14/22 02:30 Sputum, Expectorated/Coughed Gram Stain - Final Radiography Diagnostic Testing: Radiology Impression Chest X-Ray 01/15/22 07:04 IMPRESSION: Basilar opacities and small pleural effusions possible component of mild pulmonary edema. Cardiomegaly. Electronically Signed: Christin Bird MD at 7:58 EDT , Physical Exam Const alert General Appearance: cooperative Resp normal respiratory effort GI GI Narrative: abdomen is soft and benign wound is healing well - clean/dry/intact stoma appears normal mucosa Assessment & Plan Assessment/Plan (1) Status post colon resection: PLAN: Patient with episodes of emesis/nausea, probable fluid overload Abdomen is healing well, given patient's medical condition - will more than likely have postoperative ileus and this would be normal for her awaiting return of bowel function - stoma with gas/stool in bag - before intiating solid diet Continue present therapy
[2022-01-15] MEDS: Enoxaparin 30 MG/0.3 ML Syringe SC (12:40)
[2022-01-15] MEDS: Haloperidol Lactate 5 MG/ML Vial IM (18:23)
[2022-01-16] VITALS (22 sets, daily range): BP systolic 112–127; BP diastolic 51–72; PULSE 90–110; RESP 16–24; TEMP 36.8–37.3; O2SAT 89–97
[2022-01-16] MEDS: Glycerin/Hypromellose/PEG400 15 ml Bottle 1 DRP EACH EYE ×4 (00:22→17:56)
[2022-01-16] MEDS: Metoprolol Tartrate 5 MG/5 ML Vial IV ×4 (00:22→20:02)
[2022-01-16] MEDS: NYSTATIN 500,000 UNIT/5 ML UDC 500000 UNIT PO ×5 (00:23→22:07)
[2022-01-16] MEDS: 0.9% Saline Lock 10 ML Syringe IV ×4 (06:26→20:16)
[2022-01-16] MEDS: metroNIDAZOLE 500 MG/100 ML BAG 100 MG IV ×2 (06:27→13:49)
[2022-01-16] MEDS: Ipratropium/Albuterol Sulfate 3 ML AMPUL.NEB INHALATION ×3 (06:44→19:44)
[2022-01-16 06:58] LABS: Absolute Neutrophil Count 6.8 X10^3/uL (2.0-7.7); Basophil# 0.05 X10^3/uL; Basophil% 0.5 % (0-1); Eosinophil# 0.13 X10^3/uL; Eosinophils% 1.3 % (0-5); Hematocrit 32.3 % (37-47); Hemoglobin 10.5 g/dL (12.0-15.0); Lymphocyte % 18.1 % (19-41); Mean Corp Hgb Conc 32.5 g/dL (32-36); Mean Corpuscular Hgb 30.8 pg (27.0-32.0); Mean Corpuscular Volume 94.7 fL (81-99); Mean Platelet Vol. 10.2 fl (6.2-12.0); Monocyte% 8.1 % (0-10); NRBC Flagged by Analyzer 0 % (0-5); Neutrophil % 68.5 % (47-70); Platelet Count 145 K/mm3 (150-450); RBC Distribution Width CV 16.1 % (11.6-14.6); RBC Distribution Width SD 55.2 fl (35.1-43.9); Red Blood Count 3.41 M/mm3 (4.2-5.4); White Blood Count 9.9 K/mm3 (4.4-11.0)
--- NOTE | 2022-01-16 07:00 | EKG12_ITS ---
Test Reason : MORNING EKG Blood Pressure : / mmHG Vent. Rate : 102 BPM Atrial Rate : 102 BPM P-R Int : 122 ms QRS Dur : 076 ms QT Int : 378 ms P-R-T Axes : 063 027 -14 degrees QTc Int : 492 ms Sinus tachycardia with frequent Premature ventricular complexes Nonspecific ST-segment abnormality Abnormal ECG Confirmed by RASHAAD COELLO, ALIREZA ([id number]), department editor KEYLA CASTELLANOS ([id number]) on 01/18/2022 8:36:53 AM Referred By: OLIVIER NIETO Confirmed By:ALIREZA NEIL MD
[2022-01-16 07:29] LABS: Anion Gap 9 (5-15); BUN 9 mg/dL (7-18); BUN/Creat Ratio 14.7 RATIO (10-20); Calcium,Total 7.6 mg/dL (8.5-10.1); Chloride 106 mmol/L (98-107); Creatinine, Serum 0.61 mg/dL (0.55-1.02); EST Glomerular Filtration Rate 99 mL/min (>60); Est Glom Filt Rate - Afr Amer 120 mL/min (>60); Estimated Creatinine Clearance 55.93 ml/min; Glucose 87 mg/dL (74-106); Magnesium 1.4 mg/dL (1.6-2.6); Phosphorus 1.7 mg/dL (2.5-4.9); Potassium 3.2 mmol/L (3.5-5.1); Sodium Level 138 mmol/L (136-145)
--- NOTE | 2022-01-16 08:08 | PCM.PN.HOSP ---
Subjective Subjective Tolerating some clears. Objective Data Objective Data Vital Signs: Vital Signs Temp Pulse Resp BP Pulse Ox O2 Del Method O2 Flow Rate 37.2 C 101 H 20 H 118/57 L 94 Nasal Cannula 2 01/16/22 08:06 01/16/22 08:06 01/16/22 08:06 01/16/22 08:06 01/16/22 08:06 01/16/22 08:06 01/16/22 08:06 FiO2 50 01/15/22 01:25 Oxygen Flow Rate (L/min) 2 Oxygen Delivery Method Nasal Cannula Weight: 80.3 kg Body Mass Index (BMI) 23.4 Intake & Output: Intake and Output for Last 24 Hours 01/14/22 01/15/22 01/16/22 23:59 23:59 23:59 Intake Total 2083.3333 / 2083.3333 3010.33 / 3010.33 100 / 100 Output Total 1700 / 1900 2825 / 3175 560 / 560 Balance 383.3333 / 183.3333 185.33 / -164.67 -460 / -460 Lab / Micro Data Result Diagrams: 01/16/22 06:16 01/16/22 06:16 Labs: Laboratory Results - last 24 hr 01/16/22 06:16: WBC 9.9, RBC 3.41 L, Hgb 10.5 L, Hct 32.3 L, MCV 94.7, MCH 30.8, MCHC 32.5, RDW Std Deviation 55.2 H, RDW Coeff of Samreen 16.1 H, Plt Count 145 L, MPV 10.2, Immature Gran % (Auto) 3.500 H, Neut % (Auto) 68.5, Lymph % (Auto) 18.1 L, [place] % (Auto) 8.1, Eos % (Auto) 1.3, Baso % (Auto) 0.5, Absolute Neuts (auto) 6.8, Absolute Lymphs (auto) 1.80, Nucleated RBC % 0 01/16/22 06:16: Sodium 138, Potassium 3.2 L, Chloride 106, Carbon Dioxide 23.0, Anion Gap 9, BUN 9, Creatinine 0.61, Estim Creat Clear Calc 55.93, Est GFR (MDRD) Af Amer 120, Est GFR (MDRD) Non-Af 99, BUN/Creatinine Ratio 14.7, Glucose 87, Calcium 7.6 L 01/16/22 06:16: Phosphorus 1.7 L, Magnesium 1.4 L Micro: Microbiology 01/11/22 Unknown Incision/Surgical Site Gram Stain - Final 01/11/22 Unknown Incision/Surgical Site Wound Culture - Final Enterobacter aerogenes 01/11/22 Unknown Incision/Surgical Site Anaerobic Culture - Preliminary 01/14/22 02:30 Sputum, Expectorated/Coughed Gram Stain - Final Physical Exam Const alert and no apparent distress HEENT head/scalp atraumatic Resp normal respiratory effort, no retractions, no use of accessory muscles and clear to auscultation bilaterally Cardio regular rate, regular rhythm, S1 normal heart sound and S2 normal heart sound GI normal to inspection, nondistended, normoactive bowel sounds, soft to palpation, non-tender and non-distended Extremity normal to inspection Assessment & Plan Assessment/Plan (1) Perforation of sigmoid colon due to diverticulitis: (2) Acute diverticulitis: (3) Bowel perforation: (4) Adrenal insufficiency: (5) Lupus: QUALIFIERS: Systemic lupus erythematosus organ involvement: unspecified (6) Monoclonal gammopathies: (7) Autoimmune hepatitis: (8) Hypophosphatemia: (9) Hypokalemia: PLAN: Plan Perforated sigmoid colon due to acute diverticulitis -01/11: status post Alfonso's with drain placement -Pain management per general surgery -Clear liquid diet started--> Limited per surgery await further input today -Continue IV antibiotics -Intraoperative cultures are growing Enterobacter aerogenes sensitive to ciprofloxacin -Wean stress dose steroids to 10 mg daily which is her home dose -Incentive spirometer -Out of bed -Patient has a bed at the TCU and is okay for discharge once medically stable Acute hypoxic respiratory failure secondary to volume overload -Improving, down to 2l NC Cardiac murmur on exam today at the mitral valve area-we will obtain echocardiogram -Last echocardiogram in our system is from 2012 and demonstrated an EF of 60% with mild concentric LVH and mild focal valvular calcifications on the mitral valve along with mild mitral valve calcifications that are annular -Chest x-ray is consistent with volume overload -Convert metoprolol back to IV as her heart rate has been elevated and I suspect this contributed into some pulmonary edema with delayed filling time and I am unsure about oral absorption at this time given got surgery -Sputum culture sent however doubt infection Hypophosphatemia -Repeat phosphorus replacement -Repeat in a.m. Hypokalemia -Potassium bolus, replace magnesium -Repeat a.m. potassium Acute anemia -Likely related to IV fluids and intraoperative blood loss -Counts stable -Continue to monitor -Repeat CBC in a.m. History of adrenal insufficiency -Patient is typically on hydrocortisone 10 mg daily at home -Patient received 100 mg of Solu-Cortef prior to surgery -Wean steroids to Solu-Cortef 10 mg IV push daily which is equivalent to her home dose -Initiate p.o. once p.o. intake has improved -Monitor blood pressure and electrolytes History of MGUS -Follows with oncology-Dr. Panda -Has been stable with ongoing monitoring Autoimmune hepatitis -continue steroids History of lupus -Continue hydroxychloroquine Hypertension -Continue restart IV metoprolol 5 mg every 6 hours Hypothyroidism -TSH is within normal limits -IV levothyroxine given today -Restart oral levothyroxine tomorrow Chronic thrombocytopenia -History of ITP -Platelets are currently normal at 151,000 Chronic hyponatremia -Sodium levels are stable -Sodium currently normal at 138 Glaucoma -Continue home eyedrops DVT prophylaxis -SCDs -Chemoprophylaxis with Lovenox CODE STATUS -Full code as per discussion with patient and family at admission in the emergency department Charges/Coding Visit Charges Inpatient E&M: 78045 Subs Hosp L2
[2022-01-16] MEDS: Timolol 0.5% 5ML OPTH.BTL 1 DRP EACH EYE (08:13)
[2022-01-16] MEDS: BRIMONIDINE 0.15% 5 ML Bottle 1 DRP EACH EYE ×2 (08:14→22:08)
[2022-01-16] MEDS: Budesonide 3 MG CAPSULE.EC PO (08:15)
[2022-01-16] MEDS: Enoxaparin 30 MG/0.3 ML Syringe SC (08:15)
[2022-01-16] MEDS: Hydroxychloroquine 200 MG Tablet PO (08:15)
[2022-01-16] MEDS: Ciprofloxacin 400 MG/200 ML BAG 200 MG IV (09:33)
[2022-01-16] MEDS: HYDROmorphone 0.5 MG/0.5 ML SYRINGE IV (09:33)
[2022-01-16] MEDS: Hydrocortisone Sod Succinate 100 MG/2 ML Vial 10 MG IV (09:34)
--- NOTE | 2022-01-16 12:21 | PN.SURG_ITS ---
Subjective Subjective Patient feeling better today still feeling very weak - working with PT minimal gas per ostomy Objective Data Objective Data Vital Signs: Vital Signs Temp Pulse Resp BP Pulse Ox O2 Del Method O2 Flow Rate 98.2 F 97 16 112/67 95 Nasal Cannula 2 01/16/22 12:02 01/16/22 12:03 01/16/22 12:02 01/16/22 12:02 01/16/22 12:02 01/16/22 12:02 01/16/22 12:02 FiO2 50 01/15/22 01:25 Oxygen Flow Rate (L/min) 2 Oxygen Delivery Method Nasal Cannula Weight: 80.3 kg Body Mass Index (BMI) 23.4 Intake & Output: Intake and Output for Last 24 Hours 01/14/22 01/15/22 01/16/22 23:59 23:59 23:59 Intake Total 2083.3333 / 2083.3333 3010.33 / 3010.33 300 / 300 Output Total 1700 / 1900 2825 / 3175 685 / 685 Balance 383.3333 / 183.3333 185.33 / -164.67 -385 / -385 Lab / Micro Data Attestation: I reviewed the patient's lab results. Result Diagrams: 01/16/22 06:16 01/16/22 06:16 Labs: Laboratory Results - last 24 hr 01/16/22 06:16: WBC 9.9, RBC 3.41 L, Hgb 10.5 L, Hct 32.3 L, MCV 94.7, MCH 30.8, MCHC 32.5, RDW Std Deviation 55.2 H, RDW Coeff of Samreen 16.1 H, Plt Count 145 L, MPV 10.2, Immature Gran % (Auto) 3.500 H, Neut % (Auto) 68.5, Lymph % (Auto) 18.1 L, [place] % (Auto) 8.1, Eos % (Auto) 1.3, Baso % (Auto) 0.5, Absolute Neuts (auto) 6.8, Absolute Lymphs (auto) 1.80, Nucleated RBC % 0 01/16/22 06:16: Sodium 138, Potassium 3.2 L, Chloride 106, Carbon Dioxide 23.0, Anion Gap 9, BUN 9, Creatinine 0.61, Estim Creat Clear Calc 55.93, Est GFR (MDRD) Af Amer 120, Est GFR (MDRD) Non-Af 99, BUN/Creatinine Ratio 14.7, Glucose 87, Calcium 7.6 L 01/16/22 06:16: Phosphorus 1.7 L, Magnesium 1.4 L Micro: Microbiology 01/11/22 Unknown Incision/Surgical Site Gram Stain - Final 01/11/22 Unknown Incision/Surgical Site Wound Culture - Final Enterobacter aerogenes 01/11/22 Unknown Incision/Surgical Site Anaerobic Culture - Preliminary 01/14/22 02:30 Sputum, Expectorated/Coughed Gram Stain - Final Radiography Diagnostic Testing: Radiology Impression Echocardiogram 01/15/22 09:39 Interpretation Summary Left ventricular systolic function is normal. The estimated ejection fraction is 65 %. Sigmoid septum. The left atrium is mildly enlarged. There is moderate mitral annular calcification. Extension of the mitral annular calcification on the base of the posterior mitral valve leaflet. Mild focal mitral valve calcification of the anterior leaflet. Mild-Moderate mitral valve stenosis. Moderately severe (3+) eccentric mitral valve insufficiency. Trivial tricuspid valve insufficiency. Aortic valve sclerosis/mild aortic valve stenosis. Mild-Moderate (1-2+) aortic valve insufficiency. Mild (1+) pulmonic valve insufficiency. Epicardial fat. Echo lucency compatible with a pleural effusion. Right ventricular systolic pressure estimated to be 48 mmHg c/w pulmonary hypertension. Transmitral diastolic flow velocities suggest diastolic dysfunction (pseudonormal pattern). Ordering Physician: Rosalba Villalta Referring Physician: Ashvin Cardenas Performed By: Marcela Mon RDCS, RVT Physical Exam Const alert General Appearance: cooperative Resp normal respiratory effort Effort and Inspection: able to speak in complete sentences GI GI Narrative: abdomen is soft and benign wound is healing well - packing removed stoma mucosa is normal Assessment & Plan Assessment/Plan (1) Status post colon resection: PLAN: POD#6 patient recovery is progressing as expected given patient's medical morbidities and frailty she still has minimal bowel function, but suspect that it will return slowly - ambulation and physical therapy is encouraged Continue present therapy
--- NOTE | 2022-01-16 15:32 | NURSING ---
[employer] notified
--- NOTE | 2022-01-16 17:04 | NURSING ---
Astrid williamson speech language pathologist travel called with an ETA of [id number] for PICC line placement.
--- NOTE | 2022-01-16 17:05 | NURSING ---
pt/daughter updated on approximate ETA of [employer]. both verbalize understanding.
[2022-01-16] MEDS: Potassium Chloride 10mEq/100mL 10 MEQ/100 ML IV.SOLN. 100 MEQ IV BOLUS ×3 (20:08→22:15)
[2022-01-16] MEDS: Ciprofloxacin 400 MG/200 ML BAG 110 MG IV (22:09)
[2022-01-16] MEDS: Potassium Chloride 10mEq/100mL 10 MEQ/100 ML IV.SOLN. 70 MEQ IV BOLUS (23:48)
[2022-01-17] VITALS (21 sets, daily range): BP systolic 106–142; BP diastolic 48–76; PULSE 85–108; RESP 16–20; TEMP 36.5–37.2; O2SAT 94–98
[2022-01-17] MEDS: metroNIDAZOLE 500 MG/100 ML BAG 100 MG IV ×4 (00:11→21:13)
[2022-01-17] MEDS: Glycerin/Hypromellose/PEG400 15 ml Bottle 1 DRP EACH EYE ×5 (00:12→23:17)
[2022-01-17] MEDS: Metoprolol Tartrate 5 MG/5 ML Vial IV ×5 (01:19→23:17)
[2022-01-17] MEDS: 0.9% Saline Lock 10 ML Syringe IV ×5 (01:20→22:14)
[2022-01-17] MEDS: Levothyroxine 75 MCG Tablet PO (06:21)
[2022-01-17 06:37] LABS: Hematocrit 31.9 % (37-47); Hemoglobin 10.8 g/dL (12.0-15.0); Mean Corp Hgb Conc 33.9 g/dL (32-36); Mean Corpuscular Hgb 31.5 pg (27.0-32.0); Mean Platelet Vol. 10.3 fl (6.2-12.0); POSITIVE COUNT YES; POSITIVE MORPHOLOGY YES; Platelet Count 159 K/mm3 (150-450); RBC Distribution Width CV 15.9 % (11.6-14.6); RBC Distribution Width SD 54.4 fl (35.1-43.9); Red Blood Count 3.43 M/mm3 (4.2-5.4); White Blood Count 10.8 K/mm3 (4.4-11.0)
[2022-01-17 07:06] LABS: Differential Indicated MANUAL DIFF
[2022-01-17 07:07] LABS: Anion Gap 8 (5-15); BUN 9 mg/dL (7-18); BUN/Creat Ratio 18.5 RATIO (10-20); Chloride 103 mmol/L (98-107); Creatinine, Serum 0.49 mg/dL (0.55-1.02); EST Glomerular Filtration Rate 129 mL/min (>60); Est Glom Filt Rate - Afr Amer 157 mL/min (>60); Estimated Creatinine Clearance 36.22 ml/min; Glucose 107 mg/dL (74-106); Magnesium 2.3 mg/dL (1.6-2.6); Potassium 3.5 mmol/L (3.5-5.1); Sodium Level 134 mmol/L (136-145)
--- NOTE | 2022-01-17 07:11 | PN.HOSP_ITS ---
Subjective Subjective Tolerating some. Increased ostomy output. Early satiety. Objective Data Objective Data Vital Signs: Vital Signs Temp Pulse Resp BP Pulse Ox O2 Del Method O2 Flow Rate 36.9 C 100 18 142/76 H 97 Nasal Cannula 2 01/16/22 23:03 01/17/22 06:30 01/16/22 23:03 01/17/22 06:30 01/16/22 23:03 01/17/22 05:00 01/16/22 23:03 FiO2 50 01/15/22 01:25 Oxygen Flow Rate (L/min) 2 Oxygen Delivery Method Nasal Cannula Weight: 52 kg Body Mass Index (BMI) 23.4 Intake & Output: Intake and Output for Last 24 Hours 01/15/22 01/16/22 01/17/22 23:59 23:59 23:59 Intake Total 3010.33 / 3010.33 1068.17 / 1068.17 400 / 400 Output Total 2825 / 3175 1160 / 1160 100 / 100 Balance 185.33 / -164.67 -91.83 / -91.83 300 / 300 Lab / Micro Data Result Diagrams: 01/17/22 05:30 01/17/22 05:30 Labs: Laboratory Results - last 24 hr 01/16/22 06:16: Sodium 138, Potassium 3.2 L, Chloride 106, Carbon Dioxide 23.0, Anion Gap 9, BUN 9, Creatinine 0.61, Estim Creat Clear Calc 55.93, Est GFR (MDRD) Af Amer 120, Est GFR (MDRD) Non-Af 99, BUN/Creatinine Ratio 14.7, Glucose 87, Calcium 7.6 L 01/16/22 06:16: Phosphorus 1.7 L, Magnesium 1.4 L 01/17/22 05:30: WBC 10.8, RBC 3.43 L, Hgb 10.8 L, Hct 31.9 L, MCV 93.0, MCH 31.5, MCHC 33.9, RDW Std Deviation 54.4 H, RDW Coeff of Samreen 15.9 H, Plt Count 159, MPV 10.3, Neut % (Auto) Not Reportable 01/17/22 05:30: Sodium 134 L, Potassium 3.5, Chloride 103, Carbon Dioxide 23.0, Anion Gap 8, BUN 9, Creatinine 0.49 L, Estim Creat Clear Calc 36.22, Est GFR (MDRD) Af Amer 157, Est GFR (MDRD) Non-Af 129, BUN/Creatinine Ratio 18.5, Glucose 107 H, Calcium 8.0 L, Magnesium 2.3 Micro: Microbiology 01/11/22 Unknown Incision/Surgical Site Gram Stain - Final 01/11/22 Unknown Incision/Surgical Site Wound Culture - Final Enterobacter aerogenes 01/11/22 Unknown Incision/Surgical Site Anaerobic Culture - Preliminary 01/14/22 02:30 Sputum, Expectorated/Coughed Gram Stain - Final Radiography Diagnostic Testing: Radiology Impression Echocardiogram 01/15/22 09:39 Interpretation Summary Left ventricular systolic function is normal. The estimated ejection fraction is 65 %. Sigmoid septum. The left atrium is mildly enlarged. There is moderate mitral annular calcification. Extension of the mitral annular calcification on the base of the posterior mitral valve leaflet. Mild focal mitral valve calcification of the anterior leaflet. Mild-Moderate mitral valve stenosis. Moderately severe (3+) eccentric mitral valve insufficiency. Trivial tricuspid valve insufficiency. Aortic valve sclerosis/mild aortic valve stenosis. Mild-Moderate (1-2+) aortic valve insufficiency. Mild (1+) pulmonic valve insufficiency. Epicardial fat. Echo lucency compatible with a pleural effusion. Right ventricular systolic pressure estimated to be 48 mmHg c/w pulmonary hypertension. Transmitral diastolic flow velocities suggest diastolic dysfunction (pseudonormal pattern). Ordering Physician: Rosalba Villalta Referring Physician: Ashvin Cardenas Performed By: Marcela Mon, ZEV, RVT Physical Exam Const alert and no apparent distress Resp normal respiratory effort, no retractions, no use of accessory muscles and clear to auscultation bilaterally Cardio regular rate, regular rhythm, S1 normal heart sound and S2 normal heart sound GI GI Narrative: ostomy w light brown stool. Extremity normal to inspection Neuro Sensorium / Orientation: awake and alert Psych affect normal Assessment & Plan Assessment/Plan (1) Perforation of sigmoid colon due to diverticulitis: (2) Acute diverticulitis: (3) Bowel perforation: (4) Adrenal insufficiency: (5) Lupus: QUALIFIERS: Systemic lupus erythematosus organ involvement: unspecified (6) Monoclonal gammopathies: (7) Autoimmune hepatitis: (8) Hypophosphatemia: (9) Hypokalemia: PLAN: Plan 1. Perforated sigmoid colon due to acute diverticulitis -01/11: status post Alfonso's with drain placement -Pain management per general surgery -Clear liquid diet -Continue IV antibiotics -Intraoperative cultures are growing Enterobacter aerogenes sensitive to ciprofloxacin -Wean stress dose steroids to 10 mg daily which is her home dose -Incentive spirometer -Out of bed -Patient has a bed at the TCU and is okay for discharge once medically stable -add PPI 2. Acute hypoxic respiratory failure secondary to volume overload -Improving, down to 2l NC Cardiac murmur on exam today at the mitral valve area-we will obtain echocardiogram -Last echocardiogram in our system is from 2012 and demonstrated an EF of 60% with mild concentric LVH and mild focal valvular calcifications on the mitral valve along with mild mitral valve calcifications that are annular -Chest x-ray is consistent with volume overload -Convert metoprolol back to IV as her heart rate has been elevated and I suspect this contributed into some pulmonary edema with delayed filling time and I am unsure about oral absorption at this time given got surgery -Sputum culture sent however doubt infection 3. Hypophosphatemia -Repeat phosphorus replacement -Repeat in a.m. 4. Hypokalemia -Potassium bolus, replace magnesium -Repeat a.m. potassium 5. Acute anemia -Likely related to IV fluids and intraoperative blood loss -Counts stable 6. History of adrenal insufficiency -Patient is typically on hydrocortisone 10 mg daily at home, which she is on currently -Currently normotensive 7. Chronic conditions: * History of MGUS: Follows with oncology-Dr. Panda. Has been stable with ongoing monitoring * Autoimmune hepatitis continue steroids * History of lupus Continue hydroxychloroquine * Hypertension Continue restart IV metoprolol 5 mg every 6 hours * Hypothyroidism TSH is within normal limits. Continue levothyroxine * Chronic thrombocytopenia History of ITP. Platelets stable * Chronic hyponatremia: stable * Glaucoma Continue home eyedrops 8. DVT prophylaxis -SCDs -Chemoprophylaxis with Lovenox 9. CODE STATUS -Full code as per discussion with patient and family at admission in the emergency department [facility] pt's dtr and Dr. May. Charges/Coding Visit Charges Inpatient E&M: 27457 Subs Hosp L2
[2022-01-17] MEDS: Ipratropium/Albuterol Sulfate 3 ML AMPUL.NEB INHALATION ×3 (07:35→18:48)
[2022-01-17] MEDS: Hydroxychloroquine 200 MG Tablet PO (08:01)
--- NOTE | 2022-01-17 08:01 | PN.SURG_ITS ---
Subjective Subjective Patient seen and examined during AM rounds. She is sitting upright in bed resting comfortably. She states overnight she experienced some colicky abdominal pains that she believes were gas related. She denies an appetite and complains of some small-volume vomiting with her morning levothyroxine. Objective Data Objective Data Vital Signs: Vital Signs Temp Pulse Resp BP Pulse Ox O2 Del Method O2 Flow Rate 98.4 F 96 18 142/76 H 94 Nasal Cannula 2 01/16/22 23:03 01/17/22 07:35 01/17/22 07:35 01/17/22 06:30 01/17/22 07:35 01/17/22 07:35 01/17/22 07:35 FiO2 50 01/15/22 01:25 Oxygen Flow Rate (L/min) 2 Oxygen Delivery Method Nasal Cannula Weight: 114 lb 10.246 oz Body Mass Index (BMI) 23.4 Intake & Output: Intake and Output for Last 24 Hours 01/15/22 01/16/22 01/17/22 23:59 23:59 23:59 Intake Total 3010.33 / 3010.33 1068.17 / 1068.17 400 / 400 Output Total 2825 / 3175 1160 / 1160 100 / 100 Balance 185.33 / -164.67 -91.83 / -91.83 300 / 300 Lab / Micro Data Result Diagrams: 01/17/22 05:30 01/17/22 05:30 Labs: Laboratory Results - last 24 hr 01/17/22 05:30: WBC 10.8, RBC 3.43 L, Hgb 10.8 L, Hct 31.9 L, MCV 93.0, MCH 31.5, MCHC 33.9, RDW Std Deviation 54.4 H, RDW Coeff of Samreen 15.9 H, Plt Count 159, MPV 10.3, Neut % (Auto) Not Reportable 01/17/22 05:30: Sodium 134 L, Potassium 3.5, Chloride 103, Carbon Dioxide 23.0, Anion Gap 8, BUN 9, Creatinine 0.49 L, Estim Creat Clear Calc 36.22, Est GFR (MDRD) Af Amer 157, Est GFR (MDRD) Non-Af 129, BUN/Creatinine Ratio 18.5, Glucose 107 H, Calcium 8.0 L, Magnesium 2.3 Micro: Microbiology 01/11/22 Unknown Incision/Surgical Site Gram Stain - Final 01/11/22 Unknown Incision/Surgical Site Wound Culture - Final Enterobacter aerogenes 01/11/22 Unknown Incision/Surgical Site Anaerobic Culture - Preliminary 01/14/22 02:30 Sputum, Expectorated/Coughed Gram Stain - Final Radiography Diagnostic Testing: Radiology Impression Echocardiogram 01/15/22 09:39 Interpretation Summary Left ventricular systolic function is normal. The estimated ejection fraction is 65 %. Sigmoid septum. The left atrium is mildly enlarged. There is moderate mitral annular calcification. Extension of the mitral annular calcification on the base of the posterior mitral valve leaflet. Mild focal mitral valve calcification of the anterior leaflet. Mild-Moderate mitral valve stenosis. Moderately severe (3+) eccentric mitral valve insufficiency. Trivial tricuspid valve insufficiency. Aortic valve sclerosis/mild aortic valve stenosis. Mild-Moderate (1-2+) aortic valve insufficiency. Mild (1+) pulmonic valve insufficiency. Epicardial fat. Echo lucency compatible with a pleural effusion. Right ventricular systolic pressure estimated to be 48 mmHg c/w pulmonary hypertension. Transmitral diastolic flow velocities suggest diastolic dysfunction (pseudonormal pattern). Ordering Physician: Rosalba Villalta Referring Physician: Ashvin Cardenas Performed By: Marcela Mon, ZEV, RVT Physical Exam Const oriented x3 Resp normal respiratory effort GI GI Narrative: Mild abdominal distention present, clean laparotomy dressing in place. Left lower quadrant operative drain with serosanguineous output. Left upper quadrant colostomy with formed stool in bag. Abdomen is soft and appropriately tender about midline incision. Assessment & Plan Assessment/Plan (1) Perforation of sigmoid colon due to diverticulitis: PLAN: Patient is postoperative day 6 from Alfonso's procedure with drain placement. Patient overall improved this morning. Still complaining of some intermittent abdominal pains and nausea. She has experienced return of bowel function with formed stool in her bag today. Appetite poor today. Neuro: Patient's use of medication has now been spaced out every 24 hours, we will plan to schedule one analgesic medication and leave a as needed as well Pulm/CV: Wean supplemental O2 as able, duo nebs, telemetry FEN/GI: Advance to full liquid diet with ensures, patient with regular ostomy output, hospitalist service to add pantoprazole to try to help with patient's nausea symptoms Heme/ID: Continue to trend CBC, continue coverage with Cipro Flagyl, but will look to discontinue after 7 days treatment Endo: Steroid taper per medicine Proph: SCDs, mobilize as much as tolerated, hold on chemoprophylaxis until hemoglobin stabilizes postop Dispo: Continue inpatient care
--- NOTE | 2022-01-17 08:17 | WOUNDNOTE ---
In to reassess the ostomy appliance. there is a small amount of formed brown stool in the appliance. midline abdominal dressing is D&I. daughter states the surgeon was in an plans to possibly remove the DARRYL drain later today. will change the midline abdominal dressing and the ostomy appliance at that time. pt and daughter deny further needs or concerns at this time.
[2022-01-17 08:59] LABS: Eosinophil 2 % (0-5); Lymphocyte 17 % (19-41); Metamyelocyte 1 % (0-1); Monocyte 4 % (0-10); Myelocyte 1 % (0-0); Neutrophil-Segmented 74 % (47-70); Platelet Estimate ADEQUATE (ADEQ); Promyelocyte 1 % (0-0); Red Cell Morphology NORM C+C NORMAL (NORM C&C); Total Cells Counted 100 (MANUAL DIFF)
[2022-01-17] MEDS: NYSTATIN 500,000 UNIT/5 ML UDC 500000 UNIT PO ×4 (10:08→21:14)
[2022-01-17] MEDS: Budesonide 3 MG CAPSULE.EC PO (10:09)
[2022-01-17] MEDS: BRIMONIDINE 0.15% 5 ML Bottle 1 DRP EACH EYE ×2 (10:10→21:14)
[2022-01-17] MEDS: Timolol 0.5% 5ML OPTH.BTL 1 DRP EACH EYE (10:10)
[2022-01-17] MEDS: Ciprofloxacin 400 MG/200 ML BAG 200 MG IV ×2 (10:11→21:13)
[2022-01-17] MEDS: Hydrocortisone Sod Succinate 100 MG/2 ML Vial 10 MG IV (10:13)
[2022-01-17] MEDS: Enoxaparin 40 MG/0.4 ML Syringe SC (10:21)
--- NOTE | 2022-01-17 12:33 | CASEMGMT ---
[facility]CU continues to have a bed available for pt. SW notified Malia in TCU that pt is not ready for discharge today. Plan: TCU, when medically ready EFE Palafox
--- NOTE | 2022-01-17 13:42 | WOUNDNOTE ---
Ostomy appliance changed again with the daughter. stoma is slightly edematous. remains pink and moist. peristomal skin is intact. cleansed with soap and water. pat dry. applied a new 2 piece flat [place] appliance with a small amount of stoma paste. midline surgical incision is well approximated with maria a in place. cleansed incision with soap and water. pat dry. applied a new dry dressing. secured with medipore tape. pt tolerated well. see wound photo.
--- NOTE | 2022-01-17 15:08 | WOUNDNOTE ---
wound/stoma photo: abdomen
[2022-01-17 15:31] LABS: Pathologist Review Reviewed
--- NOTE | 2022-01-17 15:36 | CHAPLAIN ---
Type of Pastoral Visit _x__ Initial Visit ___ Follow-up Visit ___ On-call Visit ___ General Patient Visit ___ Spiritual Assessment ___ Family Conference ___ Bereavement ___ Rapid Response ___ Code Blue ___ Other (describe below) Pastoral Care Referral From _x__ Patient _x__ Family ___ Nurse ___ Physician ___ Practical Nursing Teacher ___ Pipe Fittings Molder ___ Other (describe below) Sacrament/Intervention _x__ Active listening ___ Anointing ___ Adventism ___ Bereavement ___ Communion _x__ Sunshine exploration ___ _x__ Life review _x__ Prayer ___ Reconciliation ___ Sacrament of Sick _x__ Supportive presence ___ Wedding ___ Other (describe below) Pastoral Comments patient had emergency surgery and then was intubated; pt now extubated, able to talk and is alert; daughter is with her; family also had /father in TCU for several weeks previously and was supported at that time for him; family seeks spiritual care support; pt had time to talk about other friends that are acquaintances of this cio; pt welcomes prayer and future visits
[2022-01-17] MEDS: Ondansetron 4 MG/2 ML Vial IV (22:12)
[2022-01-18] VITALS (14 sets, daily range): BP systolic 128–141; BP diastolic 54–68; PULSE 78–111; RESP 18–20; TEMP 36.7–37.1; O2SAT 91–98
[2022-01-18] MEDS: Levothyroxine 75 MCG Tablet PO (05:59)
[2022-01-18] MEDS: Metoprolol Tartrate 5 MG/5 ML Vial IV (05:59)
[2022-01-18] MEDS: Glycerin/Hypromellose/PEG400 15 ml Bottle 1 DRP EACH EYE ×4 (05:59→23:47)
[2022-01-18] MEDS: metroNIDAZOLE 500 MG/100 ML BAG 100 MG IV ×3 (06:00→22:14)
[2022-01-18] MEDS: Ondansetron 4 MG/2 ML Vial IV ×2 (06:05→14:33)
[2022-01-18 06:18] LABS: Absolute Lymphocyte Count 1.32 X10^3/uL (0.83-4.51); Absolute Neutrophil Count 6.8 X10^3/uL (2.0-7.7); Basophil# 0.06 X10^3/uL; Basophil% 0.6 % (0-1); Eosinophils% 1.1 % (0-5); Hematocrit 31.1 % (37-47); Hemoglobin 10.5 g/dL (12.0-15.0); Lymphocyte # 1.32 X10^3/ul (0.83-4.51); Mean Corp Hgb Conc 33.8 g/dL (32-36); Mean Corpuscular Volume 91.7 fL (81-99); Mean Platelet Vol. 10.2 fl (6.2-12.0); Monocyte% 7.4 % (0-10); NRBC Flagged by Analyzer 0 % (0-5); Neutrophil # 6.79 X10^3/uL (2.7-7.7); Platelet Count 153 K/mm3 (150-450); RBC Distribution Width CV 15.9 % (11.6-14.6); Red Blood Count 3.39 M/mm3 (4.2-5.4); White Blood Count 9.4 K/mm3 (4.4-11.0)
[2022-01-18 06:46] LABS: Anion Gap 6 (5-15); BUN 8 mg/dL (7-18); BUN/Creat Ratio 16.1 RATIO (10-20); Calcium,Total 7.6 mg/dL (8.5-10.1); Chloride 103 mmol/L (98-107); EST Glomerular Filtration Rate 126 mL/min (>60); Est Glom Filt Rate - Afr Amer 153 mL/min (>60); Estimated Creatinine Clearance 35.31 ml/min; Glucose 100 mg/dL (74-106); Potassium 3.1 mmol/L (3.5-5.1); Sodium Level 134 mmol/L (136-145)
[2022-01-18 06:49] LABS: Phosphorus 1.9 mg/dL (2.5-4.9)
--- NOTE | 2022-01-18 06:58 | PN.HOSP_ITS ---
Subjective Subjective Tolerating some clears. Still w extremity edema Objective Data Objective Data Vital Signs: Vital Signs Temp Pulse Resp BP Pulse Ox O2 Del Method O2 Flow Rate 36.9 C 99 16 136/68 H 97 Nasal Cannula 2 01/17/22 20:00 01/18/22 05:59 01/17/22 20:00 01/18/22 05:59 01/17/22 20:00 01/17/22 20:00 01/17/22 20:00 FiO2 50 01/15/22 01:25 Oxygen Flow Rate (L/min) 2 Oxygen Delivery Method Nasal Cannula Weight: 50.7 kg Body Mass Index (BMI) 23.4 Intake & Output: Intake and Output for Last 24 Hours 01/16/22 01/17/22 01/18/22 23:59 23:59 23:59 Intake Total 1068.17 / 1068.17 1210 / 1210 Output Total 1160 / 1160 320 / 320 300 / 300 Balance -91.83 / -91.83 890 / 890 -300 / -300 Lab / Micro Data Result Diagrams: 01/18/22 05:35 01/18/22 05:35 Labs: Laboratory Results - last 24 hr 01/17/22 05:30: WBC 10.8, RBC 3.43 L, Hgb 10.8 L, Hct 31.9 L, MCV 93.0, MCH 31.5, MCHC 33.9, RDW Std Deviation 54.4 H, RDW Coeff of Samreen 15.9 H, Plt Count 159, MPV 10.3, Neut % (Auto) Not Reportable, Absolute Neuts (auto) 8.0 H, Absolute Lymphs (auto) 1.80, Total Counted 100, Neutrophils % (Manual) 74 H, Lymphocytes % (Manual) 17 L, Monocytes % (Manual) 4, Eosinophils % (Manual) 2, Metamyelocytes % 1, Myelocytes % 1 H, Promyelocytes % 1 H, Diff Path Review Helen baker, Platelet Estimate ADEQUATE, RBC Morphology NORM C+C 01/17/22 05:30: Sodium 134 L, Potassium 3.5, Chloride 103, Carbon Dioxide 23.0, Anion Gap 8, BUN 9, Creatinine 0.49 L, Estim Creat Clear Calc 36.22, Est GFR (MDRD) Af Amer 157, Est GFR (MDRD) Non-Af 129, BUN/Creatinine Ratio 18.5, Glucose 107 H, Calcium 8.0 L, Magnesium 2.3 01/18/22 05:35: WBC 9.4, RBC 3.39 L, Hgb 10.5 L, Hct 31.1 L, MCV 91.7, MCH 31.0, MCHC 33.8, RDW Std Deviation 53.0 H, RDW Coeff of Samreen 15.9 H, Plt Count 153, MPV 10.2, Immature Gran % (Auto) 4.900 H, Neut % (Auto) 72.0 H, Lymph % (Auto) 14.0 L, Glynn % (Auto) 7.4, Eos % (Auto) 1.1, Baso % (Auto) 0.6, Absolute Neuts (auto) 6.8, Absolute Lymphs (auto) 1.32, Nucleated RBC % 0 01/18/22 05:35: Sodium 134 L, Potassium 3.1 L, Chloride 103, Carbon Dioxide 25.0, Anion Gap 6, BUN 8, Creatinine 0.50 L, Estim Creat Clear Calc 35.31, Est GFR (MDRD) Af Amer 153, Est GFR (MDRD) Non-Af 126, BUN/Creatinine Ratio 16.1, Glucose 100, Calcium 7.6 L 01/18/22 05:35: Phosphorus 1.9 L Micro: Microbiology 01/11/22 Unknown Incision/Surgical Site Gram Stain - Final 01/11/22 Unknown Incision/Surgical Site Wound Culture - Final Enterobacter aerogenes 01/11/22 Unknown Incision/Surgical Site Anaerobic Culture - Final Bacteroides fragilis Clostridium species 01/14/22 02:30 Sputum, Expectorated/Coughed Gram Stain - Final Physical Exam Const alert and no apparent distress Resp normal respiratory effort, no retractions and no use of accessory muscles Cardio regular rate, regular rhythm, S1 normal heart sound and S2 normal heart sound GI normal to inspection, nondistended, normoactive bowel sounds Auscultation: hypoactive bowel sounds Extremity Extremity Narrative: upper extremity edema Psych affect normal Assessment & Plan Assessment/Plan (1) Perforation of sigmoid colon due to diverticulitis: (2) Acute diverticulitis: (3) Bowel perforation: (4) Adrenal insufficiency: (5) Lupus: QUALIFIERS: Systemic lupus erythematosus organ involvement: unspecified (6) Monoclonal gammopathies: (7) Autoimmune hepatitis: (8) Hypophosphatemia: (9) Hypokalemia: PLAN: Plan 1. Perforated sigmoid colon due to acute diverticulitis -01/11: status post Alfonso's with drain placement -FLD -Continue IV antibiotics -Intraoperative cultures are growing Enterobacter aerogenes sensitive to ciprofloxacin. On ciprofloxacin and metronidazole through 01/18, then stop -Wean stress dose steroids to 10 mg daily which is her home dose -Incentive spirometer -Out of bed -Patient has a bed at the TCU and is okay for discharge once medically stable -continue PPI 2. Acute hypoxic respiratory failure secondary to volume overload -Improving, on room air Cardiac murmur on exam today at the mitral valve area-we will obtain echocardiogram -Last echocardiogram in our system is from 2012 and demonstrated an EF of 60% with mild concentric LVH and mild focal valvular calcifications on the mitral valve along with mild mitral valve calcifications that are annular -Chest x-ray is consistent with volume overload -Convert metoprolol back to IV as her heart rate has been elevated and I suspect this contributed into some pulmonary edema with delayed filling time and I am u nsure about oral absorption at this time given got surgery -Sputum culture sent however doubt infection 3. Hypophosphatemia -Repeat phosphorus replacement -Repeat in a.m. 4. Hypokalemia -Potassium bolus, replace magnesium -Repeat a.m. potassium 5. Acute anemia -Likely related to IV fluids and intraoperative blood loss -Counts stable 6. History of adrenal insufficiency -Patient is typically on hydrocortisone 10 mg daily at home, which she is on currently -Currently normotensive 7. Chronic conditions: * History of MGUS: Follows with oncology-Dr. Panda. Has been stable with ongoing monitoring * Autoimmune hepatitis continue steroids * History of lupus Continue hydroxychloroquine * Hypertension Continue restart IV metoprolol 5 mg every 6 hours * Hypothyroidism TSH is within normal limits. Continue levothyroxine * Chronic thrombocytopenia History of ITP. Platelets stable * Chronic hyponatremia: stable * Glaucoma Continue home eyedrops 8. DVT prophylaxis -SCDs -Chemoprophylaxis with Lovenox 9. CODE STATUS -Full code as per discussion with patient and family at admission in the emergency department [facility] pt's dtr and Dr. May. Charges/Coding Visit Charges Inpatient E&M: 31568 Subs Hosp L2
[2022-01-18] MEDS: Ipratropium/Albuterol Sulfate 3 ML AMPUL.NEB INHALATION ×3 (07:21→20:10)
--- NOTE | 2022-01-18 08:12 | PCM.PN.SRG ---
Subjective Subjective Patient seen and examined during AM rounds. She is found sitting out of bed on the bedside commode. She reports that overall she is feeling better. She is happy that she has been able to urinate on her own. She states she had a approximately 4 episodes of vomiting yesterday, but none so far today although she did require some antinausea medication already this morning. She reports that her pain is better as well. Objective Data Objective Data Vital Signs: Vital Signs Temp Pulse Resp BP Pulse Ox O2 Del Method O2 Flow Rate 98.4 F 96 20 H 136/68 H 97 Nasal Cannula 2 01/17/22 20:00 01/18/22 07:23 01/18/22 07:23 01/18/22 05:59 01/18/22 07:23 01/18/22 07:23 01/18/22 07:23 FiO2 50 01/15/22 01:25 Oxygen Flow Rate (L/min) 2 Oxygen Delivery Method Nasal Cannula Weight: 111 lb 12.39 oz Body Mass Index (BMI) 23.4 Intake & Output: Intake and Output for Last 24 Hours 01/16/22 01/17/22 01/18/22 23:59 23:59 23:59 Intake Total 1068.17 / 1068.17 1210 / 1210 Output Total 1160 / 1160 320 / 320 300 / 300 Balance -91.83 / -91.83 890 / 890 -300 / -300 Lab / Micro Data Result Diagrams: 01/18/22 05:35 01/18/22 05:35 Labs: Laboratory Results - last 24 hr 01/17/22 05:30: Absolute Neuts (auto) 8.0 H, Absolute Lymphs (auto) 1.80, Total Counted 100, Neutrophils % (Manual) 74 H, Lymphocytes % (Manual) 17 L, Monocytes % (Manual) 4, Eosinophils % (Manual) 2, Metamyelocytes % 1, Myelocytes % 1 H, Promyelocytes % 1 H, Diff Path Review Reviewed, Platelet Estimate ADEQUATE, RBC Morphology NORM C+C 01/18/22 05:35: WBC 9.4, RBC 3.39 L, Hgb 10.5 L, Hct 31.1 L, MCV 91.7, MCH 31.0, MCHC 33.8, RDW Std Deviation 53.0 H, RDW Coeff of Samreen 15.9 H, Plt Count 153, MPV 10.2, Immature Gran % (Auto) 4.900 H, Neut % (Auto) 72.0 H, Lymph % (Auto) 14.0 L, [place] % (Auto) 7.4, Eos % (Auto) 1.1, Baso % (Auto) 0.6, Absolute Neuts (auto) 6.8, Absolute Lymphs (auto) 1.32, Nucleated RBC % 0 01/18/22 05:35: Sodium 134 L, Potassium 3.1 L, Chloride 103, Carbon Dioxide 25.0, Anion Gap 6, BUN 8, Creatinine 0.50 L, Estim Creat Clear Calc 35.31, Est GFR (MDRD) Af Amer 153, Est GFR (MDRD) Non-Af 126, BUN/Creatinine Ratio 16.1, Glucose 100, Calcium 7.6 L 01/18/22 05:35: Phosphorus 1.9 L Micro: Microbiology 01/14/22 02:30 Sputum, Expectorated/Coughed Gram Stain - Final 01/14/22 02:30 Sputum, Expectorated/Coughed Respiratory Culture - Final Meth. resistant Staph. aureus 01/11/22 Unknown Incision/Surgical Site Gram Stain - Final 01/11/22 Unknown Incision/Surgical Site Wound Culture - Final Enterobacter aerogenes 01/11/22 Unknown Incision/Surgical Site Anaerobic Culture - Final Bacteroides fragilis Clostridium species Physical Exam Const oriented x3 Resp normal respiratory effort Resp Narrative: Nasal cannula in place GI GI Narrative: Mild abdominal distention present, clean laparotomy dressing in place. Left lower quadrant drain site remains covered with clean dressing applied yesterday following drain removal. Left upper quadrant colostomy with thin brown stool in bag. Abdomen is soft and seems less tender about the midline incision. Assessment & Plan Assessment/Plan (1) Perforation of sigmoid colon due to diverticulitis: PLAN: Patient is postoperative day 7 from Alfonso's procedure with drain placement. Patient further improved this morning. She has had success with spontaneous micturition following Daly removal yesterday. Both abdominal pains and nausea seem better today. Continue bowel function with looser stools. Patient has not tried her diet yet today. Neuro: Schedule one analgesic medication and leave a as needed as well Pulm/CV: Wean supplemental O2 as able, duo nebs, telemetry FEN/GI: Replace potassium and Phos today (ordered), continue full liquid diet with ensures, patient with regular ostomy output, hospitalist service to add pantoprazole to try to help with patient's nausea symptoms Heme/ID: Continue to trend CBC, continue coverage with Cipro Flagyl, but will look to discontinue after 7 days treatment Endo: Steroid taper per medicine Proph: SCDs, mobilize as much as tolerated, hold on chemoprophylaxis until hemoglobin stabilizes postop Dispo: Continue inpatient care Charges/Coding Visit Charges Inpatient E&M: 08284 Subs Hosp L2
[2022-01-18] MEDS: Timolol 0.5% 5ML OPTH.BTL 1 DRP EACH EYE (09:07)
[2022-01-18] MEDS: BRIMONIDINE 0.15% 5 ML Bottle 1 DRP EACH EYE ×2 (09:07→22:15)
[2022-01-18] MEDS: Hydrocortisone 10 MG Tablet PO (09:07)
[2022-01-18] MEDS: Hydroxychloroquine 200 MG Tablet PO (09:07)
[2022-01-18] MEDS: Budesonide 3 MG CAPSULE.EC PO (09:08)
[2022-01-18] MEDS: NYSTATIN 500,000 UNIT/5 ML UDC 500000 UNIT PO ×4 (09:10→22:15)
[2022-01-18] MEDS: Enoxaparin 40 MG/0.4 ML Syringe SC (09:10)
[2022-01-18] MEDS: Ciprofloxacin 400 MG/200 ML BAG 200 MG IV ×2 (09:44→22:14)
--- NOTE | 2022-01-18 10:46 | NURSING ---
Quease-ease provided.
[2022-01-18] MEDS: POTASSIUM CHLORIDE 10 MEQ CAPSULE.ER 20 MEQ PO (12:25)
[2022-01-18] MEDS: Metoprolol Tartrate 50 MG Tablet PO ×2 (12:26→22:15)
[2022-01-18] MEDS: Furosemide 40 MG Tablet PO (14:33)
[2022-01-18] MEDS: POTASSIUM CHLORIDE 10 MEQ CAPSULE.ER 40 MEQ PO (14:33)
[2022-01-18] MEDS: 0.9% Saline Lock 10 ML Syringe IV ×2 (14:33→23:47)
[2022-01-19] VITALS (13 sets, daily range): BP systolic 116–141; BP diastolic 45–66; PULSE 67–114; RESP 16–18; TEMP 36.6–37.4; O2SAT 94–98
[2022-01-19] MEDS: Glycerin/Hypromellose/PEG400 15 ml Bottle 1 DRP EACH EYE ×3 (05:57→18:11)
[2022-01-19] MEDS: 0.9% Saline Lock 10 ML Syringe IV (05:57)
[2022-01-19] MEDS: Levothyroxine 75 MCG Tablet PO (05:57)
--- NOTE | 2022-01-19 06:40 | PN.HOSP_ITS ---
Subjective Subjective Eating some, but very little overall, but more than yesterday. Objective Data Objective Data Vital Signs: Vital Signs Temp Pulse Resp BP Pulse Ox O2 Del Method O2 Flow Rate 37.0 C 93 16 125/56 H 97 Nasal Cannula 2 01/19/22 02:10 01/19/22 04:21 01/19/22 02:10 01/19/22 02:10 01/19/22 02:10 01/19/22 02:10 01/19/22 02:10 FiO2 50 01/15/22 01:25 Oxygen Flow Rate (L/min) 2 Oxygen Delivery Method Nasal Cannula Weight: 50.7 kg Body Mass Index (BMI) 23.4 Intake & Output: Intake and Output for Last 24 Hours 01/17/22 01/18/22 01/19/22 23:59 23:59 23:59 Intake Total 1210 / 1210 1261.75 / 1261.75 Output Total 320 / 320 1750 / 1750 500 / 500 Balance 890 / 890 -488.25 / -488.25 -500 / -500 Lab / Micro Data Result Diagrams: 01/19/22 06:15 01/19/22 06:15 Labs: Laboratory Results - last 24 hr 01/18/22 05:35: Sodium 134 L, Potassium 3.1 L, Chloride 103, Carbon Dioxide 25.0, Anion Gap 6, BUN 8, Creatinine 0.50 L, Estim Creat Clear Calc 35.31, Est GFR (MDRD) Af Amer 153, Est GFR (MDRD) Non-Af 126, BUN/Creatinine Ratio 16.1, Glucose 100, Calcium 7.6 L 01/18/22 05:35: Phosphorus 1.9 L Micro: Microbiology 01/14/22 02:30 Sputum, Expectorated/Coughed Gram Stain - Final 01/14/22 02:30 Sputum, Expectorated/Coughed Respiratory Culture - Final Meth. resistant Staph. aureus 01/11/22 Unknown Incision/Surgical Site Gram Stain - Final 01/11/22 Unknown Incision/Surgical Site Wound Culture - Final Enterobacter aerogenes 01/11/22 Unknown Incision/Surgical Site Anaerobic Culture - Final Bacteroides fragilis Clostridium species Physical Exam Const alert and no apparent distress Resp normal respiratory effort, no retractions, no use of accessory muscles and clear to auscultation bilaterally Cardio regular rate, regular rhythm, S1 normal heart sound and S2 normal heart sound Extremity General Extremity: edema right (right elbo) and left (left hand) upper extremity Assessment & Plan Assessment/Plan (1) Perforation of sigmoid colon due to diverticulitis: (2) Acute diverticulitis: (3) Bowel perforation: (4) Adrenal insufficiency: (5) Lupus: QUALIFIERS: Systemic lupus erythematosus organ involvement: unspecified (6) Monoclonal gammopathies: (7) Autoimmune hepatitis: (8) Hypophosphatemia: (9) Hypokalemia: PLAN: Plan 1. Perforated sigmoid colon due to acute diverticulitis -01/11: status post Alfonso's with drain placement -FLD -Continue IV antibiotics -Intraoperative cultures are growing Enterobacter aerogenes sensitive to ciprofloxacin. On ciprofloxacin and metronidazole through 01/18, then stop -Wean stress dose steroids to 10 mg daily which is her home dose -Incentive spirometer -Out of bed -Patient has a bed at the TCU and is okay for discharge once medically stable -continue PPI 2. Acute hypoxic respiratory failure secondary to volume overload -Improving, on room air Cardiac murmur on exam today at the mitral valve area-we will obtain echocardiogram -Last echocardiogram in our system is from 2012 and demonstrated an EF of 60% with mild concentric LVH and mild focal valvular calcifications on the mitral valve along with mild mitral valve calcifications that are annular -Chest x-ray is consistent with volume overload -Convert metoprolol back to IV as her heart rate has been elevated and I suspect this contributed into some pulmonary edema with delayed filling time and I am unsure about oral absorption at this time given got surgery -Sputum culture sent however doubt infection 3. Hypophosphatemia -Repeat phosphorus replacement -Repeat in a.m. 4. Hypokalemia -Potassium bolus, replace magnesium -Repeat a.m. potassium 5. Acute anemia -Likely related to IV fluids and intraoperative blood loss -Counts stable 6. History of adrenal insufficiency -Patient is typically on hydrocortisone 10 mg daily at home, which she is on currently -Currently normotensive 7. Chronic conditions: * History of MGUS: Follows with oncology-Dr. Panda. Has been stable with ongoing monitoring * Autoimmune hepatitis continue steroids * History of lupus Continue hydroxychloroquine * Hypertension Continue restart IV metoprolol 5 mg every 6 hours * Hypothyroidism TSH is within normal limits. Continue levothyroxine * Chronic thrombocytopenia History of ITP. Platelets stable * Chronic hyponatremia: stable * Glaucoma Continue home eyedrops 8. DVT prophylaxis -SCDs -Chemoprophylaxis with Lovenox 9. CODE STATUS -Full code as per discussion with patient and family at admission in the emergency department DW pt's dtr. Recommended increase diet. Expressed the importance of diet with pt and her dtr. Charges/Coding Visit Charges Inpatient E&M: 64048 Subs Hosp L2
[2022-01-19 07:29] LABS: Absolute Lymphocyte Count 2.36 X10^3/uL (0.83-4.51); Basophil# 0.05 X10^3/uL; Basophil% 0.4 % (0-1); Eosinophil# 0.07 X10^3/uL; Eosinophils% 0.5 % (0-5); Hematocrit 34.4 % (37-47); Hemoglobin 11.5 g/dL (12.0-15.0); Lymphocyte # 2.36 X10^3/ul (0.83-4.51); Lymphocyte % 18.1 % (19-41); Mean Corp Hgb Conc 33.4 g/dL (32-36); Mean Corpuscular Volume 92.7 fL (81-99); Mean Platelet Vol. 9.9 fl (6.2-12.0); Monocyte# 0.98 X10^3/uL; Monocyte% 7.5 % (0-10); NRBC Flagged by Analyzer 0 % (0-5); Neutrophil # 8.98 X10^3/uL (2.7-7.7); Neutrophil % 68.9 % (47-70); Platelet Count 201 K/mm3 (150-450); RBC Distribution Width CV 16.2 % (11.6-14.6); RBC Distribution Width SD 54.4 fl (35.1-43.9); Red Blood Count 3.71 M/mm3 (4.2-5.4)
[2022-01-19] MEDS: Ipratropium/Albuterol Sulfate 3 ML AMPUL.NEB INHALATION ×3 (07:33→19:22)
--- NOTE | 2022-01-19 07:43 | PCM.PN.SRG ---
Subjective Subjective Patient seen and examined during AM rounds. She is found resting in bed. She states that she did not sleep well overnight, but is unable to state why this was. She denies uncontrolled pain or nausea as a called. Her daughter reports that although better, patient was still nauseous periodically yesterday and attempted to vomit twice yesterday afternoon with only a small amount of clear liquid spit up. Her appetite was somewhat better and she was able to get down several bites of solid food and 1 full Ensure. Objective Data Objective Data Vital Signs: Vital Signs Temp Pulse Resp BP Pulse Ox O2 Del Method O2 Flow Rate 98.6 F 93 16 125/56 H 97 Nasal Cannula 2 01/19/22 02:10 01/19/22 04:21 01/19/22 02:10 01/19/22 02:10 01/19/22 02:10 01/19/22 02:10 01/19/22 02:10 FiO2 50 01/15/22 01:25 Oxygen Flow Rate (L/min) 2 Oxygen Delivery Method Nasal Cannula Weight: 113 lb 12.136 oz Body Mass Index (BMI) 23.4 Intake & Output: Intake and Output for Last 24 Hours 01/17/22 01/18/22 01/19/22 23:59 23:59 23:59 Intake Total 1210 / 1210 1261.75 / 1261.75 Output Total 320 / 320 1750 / 1750 500 / 500 Balance 890 / 890 -488.25 / -488.25 -500 / -500 Lab / Micro Data Result Diagrams: 01/19/22 06:15 01/19/22 06:15 Labs: Laboratory Results - last 24 hr 01/19/22 06:15: WBC 13.0 H, RBC 3.71 L, Hgb 11.5 L, Hct 34.4 L, MCV 92.7, MCH 31.0, MCHC 33.4, RDW Std Deviation 54.4 H, RDW Coeff of Samreen 16.2 H, Plt Count 201, MPV 9.9, Immature Gran % (Auto) 4.600 H, Neut % (Auto) 68.9, Lymph % (Auto) 18.1 L, [place] % (Auto) 7.5, Eos % (Auto) 0.5, Baso % (Auto) 0.4, Absolute Neuts (auto) 9.0 H, Absolute Lymphs (auto) 2.36, Nucleated RBC % 0 Micro: Microbiology 01/14/22 02:30 Sputum, Expectorated/Coughed Gram Stain - Final 01/14/22 02:30 Sputum, Expectorated/Coughed Respiratory Culture - Final Meth. resistant Staph. aureus 01/11/22 Unknown Incision/Surgical Site Gram Stain - Final 01/11/22 Unknown Incision/Surgical Site Wound Culture - Final Enterobacter aerogenes 01/11/22 Unknown Incision/Surgical Site Anaerobic Culture - Final Bacteroides fragilis Clostridium species Physical Exam Const oriented x3 Resp normal respiratory effort Resp Narrative: Nasal cannula in place GI GI Narrative: Mild abdominal distention present gradually improving, laparotomy wound uncovered and there is no drainage or surrounding erythema, left lower quadrant drain site remains covered with clean dressing applied yesterday following drain removal. Left upper quadrant colostomy with thin brown stool in bag. Abdomen is soft and seems less tender about the midline incision. Assessment & Plan Assessment/Plan (1) Perforation of sigmoid colon due to diverticulitis: PLAN: Patient is postoperative day 8 from Alfonso's procedure with drain placement. Patient further improved this morning. Patient's appetite is slowly improving. She complains of significant swelling in her extremities. Neuro: Schedule one analgesic medication and leave a as needed as well Pulm/CV: Wean supplemental O2 as able, patient now receiving daily Lasix per hospitalist, manolo romano, telemetry FEN/GI: Potassium was repleted, patient was advanced to regular diet with Ensure 01/18/2022, patient with regular ostomy output, home PPI Heme/ID: Continue to trend CBC, Cipro Flagyl discontinued yesterday 01/18/2022. Patient exhibits mild leukocytosis today without apparent cause Endo: Steroid taper per medicine Proph: SCDs, mobilize as much as tolerated, hold on chemoprophylaxis until hemoglobin stabilizes postop Dispo: Continue inpatient care Charges/Coding Visit Charges Inpatient E&M: 59818 Subs Hosp L2
[2022-01-19] MEDS: Hydroxychloroquine 200 MG Tablet PO (08:10)
[2022-01-19] MEDS: Metoprolol Tartrate 50 MG Tablet PO ×2 (08:10→20:27)
[2022-01-19] MEDS: Budesonide 3 MG CAPSULE.EC PO (08:10)
[2022-01-19] MEDS: Furosemide 40 MG Tablet PO (08:10)
[2022-01-19] MEDS: Hydrocortisone 10 MG Tablet PO (08:10)
[2022-01-19] MEDS: BRIMONIDINE 0.15% 5 ML Bottle 1 DRP EACH EYE ×2 (08:11→20:25)
[2022-01-19] MEDS: Timolol 0.5% 5ML OPTH.BTL 1 DRP EACH EYE (08:11)
[2022-01-19] MEDS: NYSTATIN 500,000 UNIT/5 ML UDC 500000 UNIT PO ×4 (08:12→20:28)
[2022-01-19] MEDS: Enoxaparin 40 MG/0.4 ML Syringe SC (08:12)
[2022-01-19 08:16] LABS: Anion Gap 9 (5-15); BUN 8 mg/dL (7-18); BUN/Creat Ratio 12.7 RATIO (10-20); Calcium,Total 7.8 mg/dL (8.5-10.1); Chloride 101 mmol/L (98-107); Creatinine, Serum 0.63 mg/dL (0.55-1.02); EST Glomerular Filtration Rate 96 mL/min (>60); Est Glom Filt Rate - Afr Amer 116 mL/min (>60); Estimated Creatinine Clearance 35.94 ml/min; Glucose 101 mg/dL (74-106); Magnesium 1.7 mg/dL (1.6-2.6); Potassium 3.7 mmol/L (3.5-5.1); Sodium Level 133 mmol/L (136-145)
--- NOTE | 2022-01-19 13:23 | WOUNDNOTE ---
Pt up in bathroom. showed patient and daughter again how to empty the ostomy appliance. patient has approx 100cc's soft unformed stool in the appliance. midline incision remains well approximated with maria a. no drainage noted. some mild redness. dry dressing to the old DARRYL site. ostomy appliance intact with no signs of leakage. assisted patient back to chair. pt ambulated well with walker.
[2022-01-20] VITALS (9 sets, daily range): BP systolic 113–143; BP diastolic 56–71; PULSE 63–118; RESP 16–21; TEMP 36.6–37.3; O2SAT 94–95
[2022-01-20] MEDS: Glycerin/Hypromellose/PEG400 15 ml Bottle 1 DRP EACH EYE ×5 (06:38→22:48)
[2022-01-20] MEDS: Levothyroxine 75 MCG Tablet PO (06:39)
[2022-01-20 06:46] LABS: Anion Gap 7 (5-15); BUN 11 mg/dL (7-18); BUN/Creat Ratio 18.2 RATIO (10-20); Calcium,Total 8.3 mg/dL (8.5-10.1); Chloride 100 mmol/L (98-107); EST Glomerular Filtration Rate 101 mL/min (>60); Est Glom Filt Rate - Afr Amer 122 mL/min (>60); Estimated Creatinine Clearance 35.66 ml/min; Glucose 89 mg/dL (74-106); Potassium 3.5 mmol/L (3.5-5.1); Sodium Level 134 mmol/L (136-145)
--- NOTE | 2022-01-20 07:30 | PN.HOSP_ITS ---
Subjective Subjective Eat some more, but does not eat much. Objective Data Objective Data Vital Signs: Vital Signs Temp Pulse Resp BP Pulse Ox O2 Del Method O2 Flow Rate 36.6 C 63 16 133/62 H 95 Room Air 2 01/20/22 02:20 01/20/22 02:20 01/20/22 02:20 01/20/22 02:20 01/20/22 02:20 01/20/22 02:20 01/19/22 07:33 FiO2 50 01/15/22 01:25 Oxygen Flow Rate (L/min) 2 Oxygen Delivery Method Room Air Weight: 51.2 kg Body Mass Index (BMI) 23.4 Intake & Output: Intake and Output for Last 24 Hours 01/18/22 01/19/22 01/20/22 23:59 23:59 23:59 Intake Total 1261.75 / 1261.75 300 / 300 100 / 100 Output Total 1750 / 1750 2600 / 2600 250 / 250 Balance -488.25 / -488.25 -2300 / -2300 -150 / -150 Lab / Micro Data Result Diagrams: 01/19/22 06:15 01/20/22 03:57 Labs: Laboratory Results - last 24 hr 01/19/22 06:15: WBC 13.0 H, RBC 3.71 L, Hgb 11.5 L, Hct 34.4 L, MCV 92.7, MCH 31.0, MCHC 33.4, RDW Std Deviation 54.4 H, RDW Coeff of Samreen 16.2 H, Plt Count 201, MPV 9.9, Immature Gran % (Auto) 4.600 H, Neut % (Auto) 68.9, Lymph % (Auto) 18.1 L, [place] % (Auto) 7.5, Eos % (Auto) 0.5, Baso % (Auto) 0.4, Absolute Neuts (auto) 9.0 H, Absolute Lymphs (auto) 2.36, Nucleated RBC % 0 01/19/22 06:15: Sodium 133 L, Potassium 3.7, Chloride 101, Carbon Dioxide 23.0, Anion Gap 9, BUN 8, Creatinine 0.63, Estim Creat Clear Calc 35.94, Est GFR (MDRD) Af Amer 116, Est GFR (MDRD) Non-Af 96, BUN/Creatinine Ratio 12.7, Glucose 101, Calcium 7.8 L, Magnesium 1.7 01/20/22 03:57: Sodium 134 L, Potassium 3.5, Chloride 100, Carbon Dioxide 27.0, Anion Gap 7, BUN 11, Creatinine 0.60, Estim Creat Clear Calc 35.66, Est GFR (MDRD) Af Amer 122, Est GFR (MDRD) Non-Af 101, BUN/Creatinine Ratio 18.2, Glucose 89, Calcium 8.3 L Micro: Microbiology 01/14/22 02:30 Sputum, Expectorated/Coughed Gram Stain - Final 01/14/22 02:30 Sputum, Expectorated/Coughed Respiratory Culture - Final Meth. resistant Staph. aureus 01/11/22 Unknown Incision/Surgical Site Gram Stain - Final 01/11/22 Unknown Incision/Surgical Site Wound Culture - Final Enterobacter aerogenes 01/11/22 Unknown Incision/Surgical Site Anaerobic Culture - Final Bacteroides fragilis Clostridium species Physical Exam Const alert and no apparent distress Resp normal respiratory effort, no retractions, no use of accessory muscles and clear to auscultation bilaterally Cardio regular rate, regular rhythm, S1 normal heart sound and S2 normal heart sound GI normal to inspection, nondistended, normoactive bowel sounds, soft to palpation and non-tender Extremity General Extremity: edema Assessment & Plan Assessment/Plan (1) Perforation of sigmoid colon due to diverticulitis: (2) Acute diverticulitis: (3) Bowel perforation: (4) Adrenal insufficiency: (5) Lupus: QUALIFIERS: Systemic lupus erythematosus organ involvement: unspecified (6) Monoclonal gammopathies: (7) Autoimmune hepatitis: (8) Hypophosphatemia: (9) Hypokalemia: PLAN: Plan 1. Perforated sigmoid colon due to acute diverticulitis -01/11: status post Alfonso's with drain placement -FLD -Continue IV antibiotics -Intraoperative cultures are growing Enterobacter aerogenes sensitive to ciprofloxacin. On ciprofloxacin and metronidazole through 01/18, then stop -Wean stress dose steroids to 10 mg daily which is her home dose -Incentive spirometer -Out of bed -Patient has a bed at the TCU and is okay for discharge once medically stable -continue PPI 2. Acute hypoxic respiratory failure secondary to volume overload -Improving, on room air Cardiac murmur on exam today at the mitral valve area-we will obtain echocardiogram -Last echocardiogram in our system is from 2012 and demonstrated an EF of 60% with mild concentric LVH and mild focal valvular calcifications on the mitral valve along with mild mitral valve calcifications that are annular -Chest x-ray is consistent with volume overload -Convert metoprolol back to IV as her heart rate has been elevated and I suspect this contributed into some pulmonary edema with delayed filling time and I am unsure about oral absorption at this time given got surgery -Sputum culture sent however doubt infection 3. Hypophosphatemia -Repeat phosphorus replacement -Repeat in a.m. 4. Hypokalemia -Potassium bolus, replace magnesium -Repeat a.m. potassium 5. Acute anemia -Likely related to IV fluids and intraoperative blood loss -Counts stable 6. History of adrenal insufficiency -Patient is typically on hydrocortisone 10 mg daily at home, which she is on currently -Currently normotensive 7. Severe protein calorie malnutrition complicates care and recovery encourage food and supplements. encouraged setting goals and improving on those goals on a daily basis pt's dtr continues to be actively involved and encouraging for the the patient, but this limited by pt reluctance. Unclear if reluctance is psychological or manifestation of overall gradual decline. 8. Chronic conditions: * History of MGUS: Follows with oncology-Dr. Panda. Has been stable with ongoing monitoring * Autoimmune hepatitis continue steroids * History of lupus Continue hydroxychloroquine * Hypertension Continue restart IV metoprolol 5 mg every 6 hours * Hypothyroidism TSH is within normal limits. Continue levothyroxine * Chronic thrombocytopenia History of ITP. Platelets stable * Chronic hyponatremia: stable * Glaucoma Continue home eyedrops 9. DVT prophylaxis -SCDs -Chemoprophylaxis with Lovenox 10. CODE STATUS -Full code as per discussion with patient and family at admission in the emergency department Advanced care planning: spent 20 minutes discussing concerns about the possibility of continued declined. Plan is to continue current mgmt. Charges/Coding Visit Charges Inpatient E&M: 46135 Subs Hosp L2 Procedures Hospitalists Procedures: 56270 Advncd Care Plan 30 Min
[2022-01-20] MEDS: Ipratropium/Albuterol Sulfate 3 ML AMPUL.NEB INHALATION ×3 (07:38→19:40)
[2022-01-20] MEDS: Hydroxychloroquine 200 MG Tablet PO (08:06)
--- NOTE | 2022-01-20 08:33 | PN.SURG_ITS ---
Subjective Subjective Patient seen and examined during AM rounds. She is initially up and about to to the bathroom and then makes her way to bedside chair with minimal assistance. She states that she does feel stronger and is moving easier with a decrease in her extremity swelling. She and her daughter also report an improvement in her nausea and a slight improvement in her oral intake?to include approximately 1- 1/2 Ensure shakes yesterday. She denies any vomiting episodes. Lastly, patient's daughter reports that pulse oximetry was alarming overnight due to some apnea and reached a low of 70% SPO2. She relates that her mother has been told she has sleep apnea before, but has never been formally tested. Objective Data Objective Data Vital Signs: Vital Signs Temp Pulse Resp BP Pulse Ox O2 Del Method O2 Flow Rate 99.0 F 118 H 16 143/71 H 95 Room Air 2 01/20/22 07:55 01/20/22 07:55 01/20/22 07:55 01/20/22 07:55 01/20/22 07:55 01/20/22 07:55 01/19/22 07:33 FiO2 50 01/15/22 01:25 Oxygen Flow Rate (L/min) 2 Oxygen Delivery Method Room Air Weight: 112 lb 14.027 oz Body Mass Index (BMI) 23.4 Intake & Output: Intake and Output for Last 24 Hours 01/18/22 01/19/22 01/20/22 23:59 23:59 23:59 Intake Total 1261.75 / 1261.75 300 / 300 100 / 100 Output Total 1750 / 1750 2600 / 2600 250 / 250 Balance -488.25 / -488.25 -2300 / -2300 -150 / -150 Lab / Micro Data Result Diagrams: 01/19/22 06:15 01/20/22 03:57 Labs: Laboratory Results - last 24 hr 01/20/22 03:57: Sodium 134 L, Potassium 3.5, Chloride 100, Carbon Dioxide 27.0, Anion Gap 7, BUN 11, Creatinine 0.60, Estim Creat Clear Calc 35.66, Est GFR (MDRD) Af Amer 122, Est GFR (MDRD) Non-Af 101, BUN/Creatinine Ratio 18.2, Glucose 89, Calcium 8.3 L Micro: Microbiology 01/14/22 02:30 Sputum, Expectorated/Coughed Gram Stain - Final 01/14/22 02:30 Sputum, Expectorated/Coughed Respiratory Culture - Final Meth. resistant Staph. aureus 01/11/22 Unknown Incision/Surgical Site Gram Stain - Final 01/11/22 Unknown Incision/Surgical Site Wound Culture - Final Enterobacter aerogenes 01/11/22 Unknown Incision/Surgical Site Anaerobic Culture - Final Bacteroides fragilis Clostridium species Physical Exam Const oriented x3 and no apparent distress Resp normal respiratory effort GI GI Narrative: Minimally distended, soft, decreased abdominal tenderness?limited to laparotomy incision. Incision line is healing well without surrounding erythema or drainage from the incision line. Left upper quadrant colostomy with?pasty output. Left lower quadrant drain site dressing removed and this drain tract is now closed Assessment & Plan Assessment/Plan (1) Perforation of sigmoid colon due to diverticulitis: PLAN: Patient is postoperative day 9 from Alfonso's procedure with drain placement. Patient further improved this morning. Patient's appetite continues slow improvement. She reports some improvement in the swelling in her extremities. Neuro: Schedule one analgesic medication and leave a as needed as well Pulm/CV: Supplemental O2 weaned, however, patient's daughter reports oxygen saturations dipping overnight. We should consider application of oxygen nightly, patient now receiving daily Lasix per hospitalist, manolo romano, telemetry now discontinued FEN/GI: Electrolytes within normal limits, patient was advanced to regular diet with Ensure 01/18/2022 and is tolerating progressively more oral intake, patient with regular ostomy output, home PPI Heme/ID: Cipro Flagyl discontinued yesterday 01/18/2022. Endo: Steroid taper per medicine Proph: SCDs, mobilize as much as tolerated, Lovenox subcu daily Dispo: Continue inpatient care
[2022-01-20] MEDS: Metoprolol Tartrate 50 MG Tablet PO ×2 (08:52→20:52)
[2022-01-20] MEDS: Timolol 0.5% 5ML OPTH.BTL 1 DRP EACH EYE (08:52)
[2022-01-20] MEDS: BRIMONIDINE 0.15% 5 ML Bottle 1 DRP EACH EYE ×2 (08:52→20:54)
[2022-01-20] MEDS: NYSTATIN 500,000 UNIT/5 ML UDC 500000 UNIT PO ×4 (08:53→20:54)
[2022-01-20] MEDS: Budesonide 3 MG CAPSULE.EC PO (08:53)
[2022-01-20] MEDS: Furosemide 40 MG Tablet PO ×2 (08:53→17:29)
[2022-01-20] MEDS: Hydrocortisone 10 MG Tablet PO (08:53)
[2022-01-20] MEDS: Enoxaparin 40 MG/0.4 ML Syringe SC (08:55)
--- NOTE | 2022-01-20 14:19 | CASEMGMT ---
Social Work Per physician, Pt not ready for discharge at this time. Malia in TCU is aware and a bed will remain available in TCU when pt is medically ready. Plan: TCU, When medically ready [facility]
[2022-01-21] VITALS (7 sets, daily range): BP systolic 115–145; BP diastolic 49–56; PULSE 66–116; RESP 16–20; TEMP 37.1–37.2; O2SAT 93–95
[2022-01-21] MEDS: Levothyroxine 75 MCG Tablet PO (05:57)
[2022-01-21] MEDS: Glycerin/Hypromellose/PEG400 15 ml Bottle 1 DRP EACH EYE ×2 (05:57→11:25)
[2022-01-21 06:07] LABS: Absolute Lymphocyte Count 2.08 X10^3/uL (0.83-4.51); Absolute Neutrophil Count 8.5 X10^3/uL (2.0-7.7); Basophil# 0.04 X10^3/uL; Basophil% 0.3 % (0-1); Eosinophil# 0.11 X10^3/uL; Eosinophils% 0.9 % (0-5); Hematocrit 32.7 % (37-47); Lymphocyte # 2.08 X10^3/ul (0.83-4.51); Lymphocyte % 17.2 % (19-41); Mean Corp Hgb Conc 33.6 g/dL (32-36); Mean Corpuscular Hgb 31.4 pg (27.0-32.0); Mean Corpuscular Volume 93.4 fL (81-99); Mean Platelet Vol. 10.1 fl (6.2-12.0); Monocyte# 0.89 X10^3/uL; Monocyte% 7.4 % (0-10); NRBC Flagged by Analyzer 0 % (0-5); Neutrophil # 8.53 X10^3/uL (2.7-7.7); Neutrophil % 70.5 % (47-70); Platelet Count 223 K/mm3 (150-450); RBC Distribution Width CV 16.4 % (11.6-14.6); RBC Distribution Width SD 55.3 fl (35.1-43.9); White Blood Count 12.1 K/mm3 (4.4-11.0)
[2022-01-21 06:41] LABS: Anion Gap 8 (5-15); BUN 16 mg/dL (7-18); BUN/Creat Ratio 27.4 RATIO (10-20); Calcium,Total 8.2 mg/dL (8.5-10.1); Chloride 96 mmol/L (98-107); Creatinine, Serum 0.58 mg/dL (0.55-1.02); EST Glomerular Filtration Rate 105 mL/min (>60); Est Glom Filt Rate - Afr Amer 127 mL/min (>60); Estimated Creatinine Clearance 35.24 ml/min; Glucose 96 mg/dL (74-106); Potassium 3.2 mmol/L (3.5-5.1); Sodium Level 133 mmol/L (136-145)
--- NOTE | 2022-01-21 06:51 | PN.HOSP_ITS ---
Subjective Subjective Ate more yesterday and today. Objective Data Objective Data Vital Signs: Vital Signs Temp Pulse Resp BP Pulse Ox O2 Del Method O2 Flow Rate 37.1 C 95 16 121/53 H 93 Room Air 2 01/21/22 03:05 01/21/22 03:05 01/21/22 03:05 01/21/22 03:05 01/21/22 03:05 01/21/22 03:11 01/19/22 07:33 FiO2 50 01/15/22 01:25 Oxygen Flow Rate (L/min) 2 Oxygen Delivery Method Room Air Weight: 50.6 kg Body Mass Index (BMI) 23.4 Intake & Output: Intake and Output for Last 24 Hours 01/19/22 01/20/22 01/21/22 23:59 23:59 23:59 Intake Total 300 / 300 350 / 350 0 / 0 Output Total 2600 / 2600 2175 / 2175 500 / 500 Balance -2300 / -2300 -1825 / -1825 -500 / -500 Lab / Micro Data Result Diagrams: 01/21/22 05:34 01/21/22 05:34 Labs: Laboratory Results - last 24 hr 01/21/22 05:34: WBC 12.1 H, RBC 3.50 L, Hgb 11.0 L, Hct 32.7 L, MCV 93.4, MCH 31.4, MCHC 33.6, RDW Std Deviation 55.3 H, RDW Coeff of Samreen 16.4 H, Plt Count 223, MPV 10.1, Immature Gran % (Auto) 3.700 H, Neut % (Auto) 70.5 H, Lymph % (Auto) 17.2 L, [place] % (Auto) 7.4, Eos % (Auto) 0.9, Baso % (Auto) 0.3, Absolute Neuts (auto) 8.5 H, Absolute Lymphs (auto) 2.08, Nucleated RBC % 0 01/21/22 05:34: Sodium 133 L, Potassium 3.2 L, Chloride 96 L, Carbon Dioxide 29.0, Anion Gap 8, BUN 16, Creatinine 0.58, Estim Creat Clear Calc 35.24, Est GFR (MDRD) Af Amer 127, Est GFR (MDRD) Non-Af 105, BUN/Creatinine Ratio 27.4 H, Glucose 96, Calcium 8.2 L Micro: Microbiology 07/02/22 02:30 Sputum, Expectorated/Coughed Gram Stain - Final 01/14/22 02:30 Sputum, Expectorated/Coughed Respiratory Culture - Final Meth. resistant Staph. aureus 01/11/22 Unknown Incision/Surgical Site Gram Stain - Final 01/11/22 Unknown Incision/Surgical Site Wound Culture - Final Enterobacter aerogenes 01/11/22 Unknown Incision/Surgical Site Anaerobic Culture - Final Bacteroides fragilis Clostridium species Physical Exam HEENT head/scalp atraumatic and moist oral mucous membranes Resp normal respiratory effort, no retractions, no use of accessory muscles and clear to auscultation bilaterally Cardio regular rate, regular rhythm, S1 normal heart sound and S2 normal heart sound GI normal to inspection, nondistended, normoactive bowel sounds, soft to palpation, non-tender and non-distended Assessment & Plan Assessment/Plan (1) Perforation of sigmoid colon due to diverticulitis: (2) Acute diverticulitis: (3) Bowel perforation: (4) Adrenal insufficiency: (5) Lupus: QUALIFIERS: Systemic lupus erythematosus organ involvement: unspecified (6) Monoclonal gammopathies: (7) Autoimmune hepatitis: (8) Hypophosphatemia: (9) Hypokalemia: PLAN: Plan 1. Perforated sigmoid colon due to acute diverticulitis -01/11: status post Alfonso's with drain placement -FLD -completed antibiotics -Intraoperative cultures are growing Enterobacter aerogenes sensitive to ciprofloxacin. On ciprofloxacin and metronidazole through 01/18, then stop -Wean stress dose steroids to 10 mg daily which is her home dose -Incentive spirometer -Out of bed -Patient has a bed at the TCU and is okay for discharge once medically stable -continue PPI 2. Acute hypoxic respiratory failure secondary to volume overload -Improving, on room air Cardiac murmur on exam today at the mitral valve area-we will obtain echocardiogram -Last echocardiogram in our system is from 2012 and demonstrated an EF of 60% with mild concentric LVH and mild focal valvular calcifications on the mitral valve along with mild mitral valve calcifications that are annular -Chest x-ray is consistent with volume overload -Convert metoprolol back to IV as her heart rate has been elevated and I suspect this contributed into some pulmonary edema with delayed filling time and I am unsure about oral absorption at this time given got surgery -Sputum culture positive for MRSA, but pt stable. Given immunocompromised status, would treat for 5 days with linezolid (allergies to sulfa, doxy and PCN). 3. Hypophosphatemia -Repeat phosphorus replacement -Repeat in a.m. 4. Hypokalemia -Potassium bolus, replace magnesium -Repeat a.m. potassium 5. Acute anemia -Likely related to IV fluids and intraoperative blood loss -Counts stable 6. History of adrenal insufficiency -Patient is typically on hydrocortisone 10 mg daily at home, which she is on currently -Currently normotensive 7. Severe protein calorie malnutrition complicates care and recovery encourage food and supplements. encouraged setting goals and improving on those goals on a daily basis pt's dtr continues to be actively involved and encouraging for the the patient, but this limited by pt reluctance. Unclear if reluctance is psychological or manifestation of overall gradual decline. 8. Chronic conditions: * History of MGUS: Follows with oncology-Dr. Panda. Has been stable with ongoing monitoring * Autoimmune hepatitis continue steroids * History of lupus Continue hydroxychloroquine * Hypertension Continue restart IV metoprolol 5 mg every 6 hours * Hypothyroidism TSH is within normal limits. Continue levothyroxine * Chronic thrombocytopenia History of ITP. Platelets stable * Chronic hyponatremia: stable * Glaucoma Continue home eyedrops 9. DVT prophylaxis -SCDs -Chemoprophylaxis with Lovenox 10. CODE STATUS -Full code as per discussion with patient and family at admission in the emergency department
[2022-01-21] MEDS: Ipratropium/Albuterol Sulfate 3 ML AMPUL.NEB INHALATION ×3 (07:18→18:42)
--- NOTE | 2022-01-21 08:42 | PN.SURG_ITS ---
Subjective Subjective Seen and examined during AM rounds. She is found resting in bed when I arrived to the room. She states that she is sleeping better overnight. She confirms also that she is tolerating more p.o. intake. Her daughter confirms that she was able to take 2 Ensure shakes yesterday. She continues to mobilize with phys ical therapy, but states that this has been limited to movement within her room. Objective Data Objective Data Vital Signs: Vital Signs Temp Pulse Resp BP Pulse Ox O2 Del Method O2 Flow Rate 98.8 F 104 H 20 H 121/53 H 94 Room Air 2 01/21/22 03:05 01/21/22 07:18 01/21/22 07:18 01/21/22 03:05 01/21/22 07:18 01/21/22 07:18 01/19/22 07:33 FiO2 50 01/15/22 01:25 Oxygen Flow Rate (L/min) 2 Oxygen Delivery Method Room Air Weight: 111 lb 8.862 oz Body Mass Index (BMI) 23.4 Intake & Output: Intake and Output for Last 24 Hours 01/19/22 01/20/22 01/21/22 23:59 23:59 23:59 Intake Total 300 / 300 350 / 350 0 / 0 Output Total 2600 / 2600 2175 / 2175 500 / 500 Balance -2300 / -2300 -1825 / -1825 -500 / -500 Lab / Micro Data Result Diagrams: 01/21/22 05:34 01/21/22 05:34 Labs: Laboratory Results - last 24 hr 01/21/22 05:34: WBC 12.1 H, RBC 3.50 L, Hgb 11.0 L, Hct 32.7 L, MCV 93.4, MCH 31.4, MCHC 33.6, RDW Std Deviation 55.3 H, RDW Coeff of Samreen 16.4 H, Plt Count 223, MPV 10.1, Immature Gran % (Auto) 3.700 H, Neut % (Auto) 70.5 H, Lymph % (Auto) 17.2 L, [place] % (Auto) 7.4, Eos % (Auto) 0.9, Baso % (Auto) 0.3, Absolute Neuts (auto) 8.5 H, Absolute Lymphs (auto) 2.08, Nucleated RBC % 0 01/21/22 05:34: Sodium 133 L, Potassium 3.2 L, Chloride 96 L, Carbon Dioxide 29.0, Anion Gap 8, BUN 16, Creatinine 0.58, Estim Creat Clear Calc 35.24, Est GFR (MDRD) Af Amer 127, Est GFR (MDRD) Non-Af 105, BUN/Creatinine Ratio 27.4 H, Glucose 96, Calcium 8.2 L Micro: Microbiology 01/14/22 02:30 Sputum, Expectorated/Coughed Gram Stain - Final 01/14/22 02:30 Sputum, Expectorated/Coughed Respiratory Culture - Final Meth. resistant Staph. aureus 01/11/22 Unknown Incision/Surgical Site Gram Stain - Final 01/11/22 Unknown Incision/Surgical Site Wound Culture - Final Enterobacter aerogenes 01/11/22 Unknown Incision/Surgical Site Anaerobic Culture - Final Bacteroides fragilis Clostridium species Physical Exam Const oriented x3 and no apparent distress Resp normal respiratory effort GI GI Narrative: Minimally distended, soft, somewhat increased abdominal tenderness diffusely, incision line is healing well without surrounding erythema or drainage from the incision line. Left upper quadrant colostomy with?thickened output. Left lower quadrant drain site closed and without surrounding erythema Assessment & Plan Assessment/Plan (1) Perforation of sigmoid colon due to diverticulitis: PLAN: Patient is postoperative day 10 from Alfonso's procedure with drain placement. Patient is now resting well. Patient's appetite continues slow improvement. Laboratories overall are reassuring this morning. Patient appears to be appropriate for transition to the transitional care unit. Neuro: Schedule one analgesic medication and leave a as needed as well Pulm/CV: Supplemental O2 weaned, however, patient's daughter reports oxygen applied transiently overnight. Patient now receiving daily Lasix per hospitalist, manolo romano, telemetry now discontinued FEN/GI: Patient require some electrolyte replacement today after these were likely depleted by Lasix administration, regular diet with Ensure 01/18/2022 and is tolerating progressively more oral intake, patient with regular ostomy output, home PPI Heme/ID: Hemoglobin stable, leukocytosis spontaneously improving off antibiotics, Cipro Flagyl discontinued 01/18/2022. Endo: Steroid taper per medicine Proph: SCDs, mobilize as much as tolerated, Lovenox subcu daily Dispo: Okay to transfer to TCU from a surgical standpoint
[2022-01-21] MEDS: Timolol 0.5% 5ML OPTH.BTL 1 DRP EACH EYE (09:31)
[2022-01-21] MEDS: NYSTATIN 500,000 UNIT/5 ML UDC 500000 UNIT PO ×2 (09:31→13:42)
[2022-01-21] MEDS: Enoxaparin 40 MG/0.4 ML Syringe SC (09:31)
[2022-01-21] MEDS: Budesonide 3 MG CAPSULE.EC PO (09:32)
[2022-01-21] MEDS: Metoprolol Tartrate 50 MG Tablet PO (09:32)
[2022-01-21] MEDS: Hydrocortisone 10 MG Tablet PO (09:32)
[2022-01-21] MEDS: Hydroxychloroquine 200 MG Tablet PO (09:33)
[2022-01-21] MEDS: BRIMONIDINE 0.15% 5 ML Bottle 1 DRP EACH EYE (09:33)
[2022-01-21] MEDS: Furosemide 40 MG Tablet PO ×2 (09:34→18:08)
--- NOTE | 2022-01-21 10:31 | TREXTCAR_ITS ---
Diet Diet Order/Speech Therapy: 01/18/22 13:28 Diet: Regular - General Type of Dietary Supplement:: Ensure Enlive Is pt able to select menu?: No Diet Comments: no carbonated beverages; 8 oz Ensure w/ meals tid Wound(s) midline abd incision: Wound Type: Surgical Incision Dressing Change: Dry Sterile Dressing Therapies Weight Bearing: Full weight bearing Physical Therapy: Eval and Treat Occupational Therapy: Eval and Treat Problem/Diagnosis (1) Perforation of sigmoid colon due to diverticulitis: Status: Acute Code(s): K57.20 - Diverticulitis of large intestine with perforation and abscess without bleeding (2) Acute diverticulitis: Status: Acute Code(s): K57.92 - Diverticulitis of intestine, part unspecified, without perforation or abscess without bleeding (3) Bowel perforation: Status: Acute Code(s): K63.1 - Perforation of intestine (nontraumatic) (4) Adrenal insufficiency: Status: Chronic Code(s): E27.40 - Unspecified adrenocortical insufficiency (5) Lupus: Status: Chronic Code(s): M32.9 - Systemic lupus erythematosus, unspecified (6) Monoclonal gammopathies: Status: Chronic Code(s): D47.2 - Monoclonal gammopathy Comment: M-spike was 0.9 on 06/06/2021. Clinically stable. (7) Autoimmune hepatitis: Status: Chronic Code(s): K75.4 - Autoimmune hepatitis (8) Hypophosphatemia: Status: Acute Code(s): E83.39 - Other disorders of phosphorus metabolism (9) Hypokalemia: Status: Acute Code(s): E87.6 - Hypokalemia Plan 1. Perforated sigmoid colon due to acute diverticulitis -01/11: status post Alfonso's with drain placement -FLD -completed antibiotics -Intraoperative cultures are growing Enterobacter aerogenes sensitive to ciprofloxacin. On ciprofloxacin and metronidazole through 01/18, then stop -Wean stress dose steroids to 10 mg daily which is her home dose -Incentive spirometer -Out of bed -Patient has a bed at the TCU and is okay for discharge once medically stable -continue PPI 2. Acute hypoxic respiratory failure secondary to volume overload -Improving, on room air Cardiac murmur on exam today at the mitral valve area-we will obtain echocardiogram -Last echocardiogram in our system is from 2013 and demonstrated an EF of 60% with mild concentric LVH and mild focal valvular calcifications on the mitral valve along with mild mitral valve calcifications that are annular -Chest x-ray is consistent with volume overload -Convert metoprolol back to IV as her heart rate has been elevated and I suspect this contributed into some pulmonary edema with delayed filling time and I am unsure about oral absorption at this time given got surgery -Sputum culture positive for MRSA, but pt stable. Given immunocompromised status, would treat for 5 days with linezolid (allergies to sulfa, doxy and PCN). 3. Hypophosphatemia -Repeat phosphorus replacement -Repeat in a.m. 4. Hypokalemia -Potassium bolus, replace magnesium -Repeat a.m. potassium 5. Acute anemia -Likely related to IV fluids and intraoperative blood loss -Counts stable 6. History of adrenal insufficiency -Patient is typically on hydrocortisone 10 mg daily at home, which she is on currently -Currently normotensive 7. Severe protein calorie malnutrition complicates care and recovery encourage food and supplements. encouraged setting goals and improving on those goals on a daily basis pt's dtr continues to be actively involved and encouraging for the the patient, but this limited by pt reluctance. Unclear if reluctance is psychological or m anifestation of overall gradual decline. 8. Chronic conditions: * History of MGUS: Follows with oncology-Dr. Panda. Has been stable with ongoing monitoring * Autoimmune hepatitis continue steroids * History of lupus Continue hydroxychloroquine * Hypertension Continue restart IV metoprolol 5 mg every 6 hours * Hypothyroidism TSH is within normal limits. Continue levothyroxine * Chronic thrombocytopenia History of ITP. Platelets stable * Chronic hyponatremia: stable * Glaucoma Continue home eyedrops 9. DVT prophylaxis -SCDs -Chemoprophylaxis with Lovenox 10. CODE STATUS -Full code as per discussion with patient and family at admission in the emergency department Allergies/Procedures Done in Hospital Allergies Penicillins [PCN] Allergy (Verified 06/14/21 13:42) Hives azathioprine [From Imuran] Adverse Reaction (Verified 06/14/21 13:42) Vomiting colchicine Adverse Reaction (Verified 01/11/22 12:38) Other doxycycline Adverse Reaction (Verified 01/11/22 12:38) Rash famotidine [From Pepcid] Adverse Reaction (Verified 01/13/22 07:22) Other Hallucinations griseofulvin [From Priti-PEG (ultramicrosize)] Adverse Reaction (Verified 06/14/21 13:42) NEEDS FOLLOW-UP RACING HEART, HEADACHE Sulfa (Sulfonamide Antibiotics) Adverse Reaction (Verified 01/11/22 12:38) Other Type of Care/Length of Stay Estimated LOS: Convalescent Care Less Than 30 days Type of Care Needed: Skilled Rehab Potential: Fair Prognosis: Fair Additional Orders/Day of Discharge Day of Discharge: 01/21/22 Dietary and Speech Recommendations Dietitian Recommendations/Changes: Regular diet Ensure Enlive TID 8oz Discharge Plan Admission Admit Date/Time: 01/11/22 15:40 Primary Reason for Your Visit: diverticulitis with perforation. Attending Provider: Ashvin Bowman Primary Care Provider: Ashvin Cardenas Consulting Providers: Abdullahi May ; Marco Tyler ; Rosalba Villalta Discharge Orders/Prescriptions Prescriptions: New furosemide 40 mg Tablet 40 mg PO DAILY Qty: 0 0RF linezolid 600 mg Tablet 600 mg PO BID Qty: 9 0RF Rx Instructions: through 01/26/2022 Continued levothyroxine 75 MCG tablet 75 mcg PO DAILY Rx Instructions: name brand synthroid budesonide 3 MG capsule,delayed,extend.release 3 mg PO DAILY hydroxychloroquine 200 MG tablet 200 mg PO DAILYCM brimonidine 1 DROP bottle 1 drp EACH EYE BID timolol maleate 1 DROP drops 1 drp EACH EYE DAILY metoprolol succinate 50 MG tablet extended release 24 hr 50 mg PO BID cholecalciferol (vitamin D3) 2,000 UNIT capsule 2,000 unit PO DAILY hydrocortisone 5 MG tablet 10 mg PO DAILY Label Comments: TAKE 1 AND 1/2 TABLET BY MOUTH ONCE DAILY AND NEEDED STRESS DOSE artificial tears solution Drops 1 drp OPHTHALMIC (EYE) 4XD Eylea 2 mg/0.05 mL Syringe 2 mg INTRAVITREAL .[id number] Creon 12,000-38,000 -60,000 unit capsule,delayed release(DR/EC) 1 cap PO DAILY Lumigan 0.01 % Drops 1 drp EACH EYE QHS Probiotic 10 billion cell Capsule 10,000 mmu cells PO DAILY Changed potassium chloride 10 mEq tablet,ER particles/crystals 20 meq PO DAILY Qty: 30 0RF Referrals / Follow Up: Ashvin Cardenas MD [Primary Care Provider] - Within 2 Weeks Abdullahi May MD [STAFF PHYSICIAN] - Within 2 Weeks Disposition Disposition (needs filled in before D/C Order can be placed): [facility] (1) Lupus Qualifiers: Systemic lupus erythematosus organ involvement: unspecified
--- NOTE | 2022-01-21 10:32 | NURSING ---
Patient and patient's daughter state that they would rather she take her own 10 meq k+ from home. This medication was sent to RX to be verified. k+ will get replaced once medication get back to the floor.
--- NOTE | 2022-01-21 10:37 | DS.PCM_ITS ---
Providers Date of Admission: 01/11/22 Primary Care Physician: Dr. 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 Comment: Reason for Consult:: New ostomy Reason For Visit: DIVERTICULAR PRFORATION,DIVERTICULIS Diagnosis Discharge Diagnosis (1) Perforation of sigmoid colon due to diverticulitis: Status: Acute Code(s): K57.20 - Diverticulitis of large intestine with perforation and abscess without bleeding (2) Acute diverticulitis: Status: Acute Code(s): K57.92 - Diverticulitis of intestine, part unspecified, without perforation or abscess without bleeding (3) Bowel perforation: Status: Acute Code(s): K63.1 - Perforation of intestine (nontraumatic) (4) Adrenal insufficiency: Status: Chronic Code(s): E27.40 - Unspecified adrenocortical insufficiency (5) Lupus: Status: Chronic Code(s): M32.9 - Systemic lupus erythematosus, unspecified Qualifiers: Systemic lupus erythematosus organ involvement: unspecified (6) Monoclonal gammopathies: Status: Chronic Code(s): D47.2 - Monoclonal gammopathy (7) Autoimmune hepatitis: Status: Chronic Code(s): K75.4 - Autoimmune hepatitis (8) Hypophosphatemia: Status: Acute Code(s): E83.39 - Other disorders of phosphorus metabolism (9) Hypokalemia: Status: Acute Code(s): E87.6 - Hypokalemia Plan 1. Perforated sigmoid colon due to acute diverticulitis -01/11: status post Alfonso's with drain placement -FLD -completed antibiotics -Intraoperative cultures are growing Enterobacter aerogenes sensitive to ciprofloxacin. On ciprofloxacin and metronidazole through 01/18, then stop -Wean stress dose steroids to 10 mg daily which is her home dose -Incentive spirometer -Out of bed -Patient has a bed at the TCU and is okay for discharge once medically stable -continue PPI 2. Acute hypoxic respiratory failure secondary to volume overload -Improving, on room air Cardiac murmur on exam today at the mitral valve area-we will obtain echocardiogram -Last echocardiogram in our system is from 2012 and demonstrated an EF of 60% with mild concentric LVH and mild focal valvular calcifications on the mitral valve along with mild mitral valve calcifications that are annular -Chest x-ray is consistent with volume overload -Convert metoprolol back to IV as her heart rate has been elevated and I suspect this contributed into some pulmonary edema with delayed filling time and I am unsure about oral absorption at this time given got surgery -Sputum culture positive for MRSA, but pt stable. Given immunocompromised status, would treat for 5 days with linezolid (allergies to sulfa, doxy and PCN). 3. Hypophosphatemia -Repeat phosphorus replacement -Repeat in a.m. 4. Hypokalemia -Potassium bolus, replace magnesium -Repeat a.m. potassium 5. Acute anemia -Likely related to IV fluids and intraoperative blood loss -Counts stable 6. History of adrenal insufficiency -Patient is typically on hydrocortisone 10 mg daily at home, which she is on currently -Currently normotensive 7. Severe protein calorie malnutrition complicates care and recovery encourage food and supplements. encouraged setting goals and improving on those goals on a daily basis pt's dtr continues to be actively involved and encouraging for the the patient, but this limited by pt reluctance. Unclear if reluctance is psychological or manifestation of overall gradual decline. Overall, eating better, still requires encouragement. Important to emphasize goals. Consider nutrition consult in TCU. 8. Chronic conditions: * History of MGUS: Follows with oncology-Dr. Panda. Has been stable with ongoing monitoring * Autoimmune hepatitis continue steroids * History of lupus Continue hydroxychloroquine * Hypertension Continue restart IV metoprolol 5 mg every 6 hours * Hypothyroidism TSH is within normal limits. Continue levothyroxine * Chronic thrombocytopenia History of ITP. Platelets stable * Chronic hyponatremia: stable * Glaucoma Continue home eyedrops Medications at Discharge Home Medications brimonidine 0.15 % eye drops 1 drp EACH EYE BID eye drops 06/23/17 budesonide 3 mg capsule,delayed,extended release 3 mg PO DAILY inflammation 06/23/17 hydroxychloroquine 200 mg tablet 200 mg PO DAILYCM lupus 06/23/17 levothyroxine 75 mcg tablet 75 mcg PO DAILY thyroid 06/23/17 timolol maleate 0.5 % eye drops 1 drp EACH EYE DAILY eye drops 06/23/17 metoprolol succinate 50 mg tablet,extended release 24 hr 50 mg PO BID HEART 06/04/19 cholecalciferol (vitamin D3) 50 mcg (2,000 unit) capsule 2,000 unit PO DAILY SUPPLEMENT 07/30/19 hydrocortisone 5 mg tablet 10 mg PO DAILY steroid 07/31/19 aflibercept 2 mg/0.05 mL intravitreal syringe (Eylea) 2 mg intravitreal .[id number] EYE HEALTH 03/28/21 artificial tears solution eye drops 1 drp ophthalmic (eye) 4XD dry eyes 03/28/21 [id number] 12,000-38,000-60,000 unit capsule,delayed rel (Creon) 1 cap PO DAILY enzymes 04/29/21 Lactobacillus acidophilus 10 billion cell capsule (Probiotic) 10,000 mmu cells PO DAILY IMMUNE HEALTH 01/11/22 bimatoprost 0.01 % eye drops (Lumigan) 1 drp EACH EYE Q EYE HEALTH 01/11/22 furosemide 40 mg tablet 40 mg PO DAILY #0 tabs 01/21/22 linezolid 600 mg tablet 600 mg PO BID #9 tabs 01/21/22 potassium chloride 10 mEq tablet,extended release(part/cryst) 20 meq PO DAILY SUPPLEMENT' #30 tabs 01/21/22 Hospital Course Operations - (1. Exploratory laparotomy 2. Partial colectomy (descending and sigmoid) 3. Mobilization of splenic flexure 4. Creation of end colostomy) Summary of Care Provided Minutes Spent on Discharge: 35 Weight / BMI Weight Weight: 50.6 kg Body Mass Index (BMI) 23.4 ABG / Lab / Microbiology Data Result Diagrams: 01/21/22 05:34 01/21/22 05:34 Laboratory: Laboratory Results - last 24 hr 01/21/22 05:34: WBC 12.1 H, RBC 3.50 L, Hgb 11.0 L, Hct 32.7 L, MCV 93.4, MCH 31.4, MCHC 33.6, RDW Std Deviation 55.3 H, RDW Coeff of Samreen 16.4 H, Plt Count 223, MPV 10.1, Immature Gran % (Auto) 3.700 H, Neut % (Auto) 70.5 H, Lymph % (Auto) 17.2 L, [place] % (Auto) 7.4, Eos % (Auto) 0.9, Baso % (Auto) 0.3, Absolute Neuts (auto) 8.5 H, Absolute Lymphs (auto) 2.08, Nucleated RBC % 0 01/21/22 05:34: Sodium 133 L, Potassium 3.2 L, Chloride 96 L, Carbon Dioxide 2 9.0, Anion Gap 8, BUN 16, Creatinine 0.58, Estim Creat Clear Calc 35.24, Est GFR (MDRD) Af Amer 127, Est GFR (MDRD) Non-Af 105, BUN/Creatinine Ratio 27.4 H, Glucose 96, Calcium 8.2 L Microbiology: Microbiology 01/14/22 02:30 Sputum, Expectorated/Coughed Gram Stain - Final 01/14/22 02:30 Sputum, Expectorated/Coughed Respiratory Culture - Final Meth. resistant Staph. aureus 01/11/22 Unknown Incision/Surgical Site Gram Stain - Final 01/11/22 Unknown Incision/Surgical Site Wound Culture - Final Enterobacter aerogenes 01/11/22 Unknown Incision/Surgical Site Anaerobic Culture - Final Bacteroides fragilis Clostridium species Meaningful Use Info Meaningful Use Diagnoses (Choose all that apply): None applicable Discharge Plan Admission Admit Date/Time: 01/11/22 15:40 Primary Reason for Your Visit: diverticulitis with perforation. Attending Provider: Ashvin Bowman Primary Care Provider: Ashvin Cardenas Consulting Providers: Abdullahi May ; Marco Tyler ; Rosalba Villalta Discharge Orders/Prescriptions Prescriptions: New furosemide 40 mg Tablet 40 mg PO DAILY Qty: 0 0RF linezolid 600 mg Tablet 600 mg PO BID Qty: 9 0RF Rx Instructions: through 01/26/2022 Continued levothyroxine 75 MCG tablet 75 mcg PO DAILY Rx Instructions: name brand synthroid budesonide 3 MG capsule,delayed,extend.release 3 mg PO DAILY hydroxychloroquine 200 MG tablet 200 mg PO DAILYCM brimonidine 1 DROP bottle 1 drp EACH EYE BID timolol maleate 1 DROP drops 1 drp EACH EYE DAILY metoprolol succinate 50 MG tablet extended release 24 hr 50 mg PO BID cholecalciferol (vitamin D3) 2,000 UNIT capsule 2,000 unit PO DAILY hydrocortisone 5 MG tablet 10 mg PO DAILY Label Comments: TAKE 1 AND 1/2 TABLET BY MOUTH ONCE DAILY AND NEEDED STRESS DOSE artificial tears solution Drops 1 drp OPHTHALMIC (EYE) 4XD Eylea 2 mg/0.05 mL Syringe 2 mg INTRAVITREAL .[id number] Creon 12,000-38,000 -60,000 unit capsule,delayed release(DR/EC) 1 cap PO DAILY Lumigan 0.01 % Drops 1 drp EACH EYE QHS Probiotic 10 billion cell Capsule 10,000 mmu cells PO DAILY Changed potassium chloride 10 mEq tablet,ER particles/crystals 20 meq PO DAILY Qty: 30 0RF Referrals / Follow Up: Ashvin Cardenas MD [Primary Care Provider] - Within 2 Weeks Abdullahi May MD [STAFF PHYSICIAN] - Within 2 Weeks Disposition Disposition (needs filled in before D/C Order can be placed): Detention Facility Charges/Coding Visit Charges Inpatient E&M: 03417 Disch Hosp
[2022-01-21] MEDS: POTASSIUM CHLORIDE 10 MEQ CAPSULE.ER 40 MEQ PO (11:22)
[2022-01-21] MEDS: Linezolid 600 MG Tablet PO (13:40)
== END 2022-01-21 18:56 | disposition skilled nursing facility (03) | DRG 329 ==
LOC: ED 15:46 → PCU 16:31 → ICU 01-12 07:30 → MS3 01-12 18:29
PROVIDERS: Physician Assistant; Surgery; Admitting Provider Internal Medicine; Emergency Provider Emergency Medicine; PCP Family Medicine
PROC: 0DBM0ZZ Excision of Descending Colon, Open Approach (ICD-10-PCS; CPT 49000; principal; 2022-01-11 16:35)
DX: K57.20 Diverticulitis of large intestine with perforation and abscess without bleeding (principal); J96.01 Acute respiratory failure with hypoxia; E43 Unspecified severe protein-calorie malnutrition; E27.40 Unspecified adrenocortical insufficiency; E87.1 Hypo-osmolality and hyponatremia; D62 Acute posthemorrhagic anemia; I47.1 Supraventricular tachycardia; K56.7 Ileus, unspecified; E83.39 Other disorders of phosphorus metabolism; K75.4 Autoimmune hepatitis; M32.9 Systemic lupus erythematosus, unspecified; Z93.3 Colostomy status; I10 Essential (primary) hypertension; E78.5 Hyperlipidemia, unspecified; E03.9 Hypothyroidism, unspecified; E87.6 Hypokalemia; D47.2 Monoclonal gammopathy; G47.30 Sleep apnea, unspecified; R11.2 Nausea with vomiting, unspecified; E87.70 Fluid overload, unspecified; Z79.2 Long term (current) use of antibiotics; H40.9 Unspecified glaucoma; Z79.52 Long term (current) use of systemic steroids; R01.1 Cardiac murmur, unspecified; H91.93 Unspecified hearing loss, bilateral; Z20.822 Contact with and (suspected) exposure to COVID-19; Z79.890 Hormone replacement therapy; Z79.899 Other long term (current) drug therapy; Z68.22 Body mass index [BMI] 22.0-22.9, adult
CPT/HCPCS: 36415; 36569; 36600; 71045; 74177; 80048; 80053; 81001; 82803; 83605; 83690; 83735; 84100; 85025; 87040; 87070; 87075; 87077; 87186; 87205; 87426; 88307; 93005; 93306; 94002; 94003; 94640; 94762; 97110; 97116; 97162; 97167; 97530; 97535; 97802; 99282; J7030; J7040; J7050; Q9967; A4216; J0744; J1940; J2405; J3010; J3490

== ENCOUNTER 2022-01-21 19:56 | Inpatient (IN) | payer MEDICARE, SELFPAY ==
[2022-01-21 20:01] VITALS: BP 144/52; PULSE 60; RESP 18; TEMP 36.6; O2SAT 96; BMI 23.3
--- NOTE | 2022-01-21 20:27 | HP.PCM_ITS ---
HPI - General General Date of Admission: 01/21/22 Date of Service: 01/23/22 Chief Complaint: Here for rehab. HPI Narrative 01/11/2022 LIANA VALENCIA, is a 81 Female who presents to [facility] Emergency Department with abdominal pain. Abdominal pain x 2 days, left lower quadrant, then diffuse, severe. Pain worse with movement, worse with car ride. Vomited x 2. Morphine, zofran, given for pain. CT abdomen/pelvis showed sigmoid diverticulitis with free air. Cipro IV, Flagyl IV given. 01/11/[address]. May offered partial colectomy to treat perforated diverticulitis. Solu-Cortef stress dose for adrenal insufficiency. 01/11/2022 Dr. May performed exploratory laparotomy, partial colectomy, mobi lized splenic flexure, end colostomy. 01/12/2022 Pain improved, Extubated. IV fluids, NPO, NG tube, consider TPN, continue IV antibiotics. 01/13/2022 Pain tolerable, NG tube removed. Wean stress dose steroids. Replace phosphorous. 01/14/2022 Abdominal pain worse with coughing. Stop IV fluids, given Lasix 20mg iv x 1 dose. Restart oral medications. Surgical culture grew enterobacter aerogenes. Replace potassium. 01/15/2022 Respiratory distress due to volume overload. OOB, Incentive spirometry. Lasix 40mg iv x 1 dose, Metoprolol from PO to IV. 01/16/2022 Tolerating clears. IV Antibiotics for perforated diverticulitis. 01/17/2022 Increased ostomy output, early satiety. Replace potassium, Magnesium. 01/18/2022 Tolerating clears, extremity edema. Cipro, Flagyl, thru 01/18/2022, then stop for Enterobacter aerogenes infection. 01/19/2022 Eating very little. Wean Hydrocortisone to 10mg daily, home dose. 01/20/2022 Eating very little. 01/21/2022 Admit to TCU with debility, here for rehabilitation, strengthening, prior to discharge home alone. [facility] Medical History Atrial fibrillation Chronic hyponatremia COLONOSCOPY Diverticulitis Glaucoma Hearing loss, left Hearing loss, right Heart disease Hepatitis History of left heart catheterization (LHC) Hyperlipidemia Hyperthyroidism Idiopathic thrombocytopenia Lupus Macular degeneration Migraines NASAL POLYP REMOVED Non-smoker Osteopenia Rheumatic fever Sleep apnea 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 Tachycardia Home Medications brimonidine 0.15 % eye drops 1 drp EACH EYE BID eye drops 06/23/17 [History Last Taken 01/11/22] budesonide 3 mg capsule,delayed,extended release 3 mg PO DAILY inflammation 06/23/17 [History Last Taken 01/10/22] hydroxychloroquine 200 mg tablet 200 mg PO DAILYCM lupus 06/23/17 [History Last Taken 01/10/22] levothyroxine 75 mcg tablet 75 mcg PO DAILY thyroid 06/23/17 [History Last Taken 01/11/22] timolol maleate 0.5 % eye drops 1 drp EACH EYE DAILY eye drops 06/23/17 [History Last Taken 01/11/22] metoprolol succinate 50 mg tablet,extended release 24 hr 50 mg PO BID HEART 06/04/19 [History Last Taken 01/11/22] cholecalciferol (vitamin D3) 50 mcg (2,000 unit) capsule 2,000 unit PO DAILY SUPPLEMENT 07/30/19 [History Last Taken 01/10/22] hydrocortisone 5 mg tablet 10 mg PO DAILY steroid 07/31/19 [History Last Taken 01/10/22] aflibercept 2 mg/0.05 mL intravitreal syringe (Eylea) 2 mg intravitreal .[id number] EYE HEALTH 03/28/21 [History Last Taken 01/09/22] artificial tears solution eye drops 1 drp ophthalmic (eye) 4XD dry eyes 03/28/21 [History Last Taken Unknown] wfmylo-ouwyuhlt-njndndh 12,000-38,000-60,000 unit capsule,delayed rel (Creon) 1 cap PO DAILY enzymes 04/29/21 [History Last Taken 01/10/22] Lactobacillus acidophilus 10 billion cell capsule (Probiotic) 10,000 mmu cells PO DAILY IMMUNE HEALTH 01/11/22 [History Last Taken 01/10/22] bimatoprost 0.01 % eye drops (Lumigan) 1 drp EACH EYE Q EYE HEALTH 01/11/22 [History Last Taken 01/11/22] furosemide 40 mg tablet 40 mg PO DAILY fluid pill 01/21/22 [History Last Taken Unknown] linezolid 600 mg tablet 600 mg PO BID pneumonia 01/21/22 [History Last Taken Unknown] potassium chloride 10 mEq tablet,extended release(part/cryst) 20 meq PO DAILY SUPPLEMENT' #30 tabs 01/21/22 [Rx Last Taken 01/11/22] Allergy/AdvReac Type Severity Reaction Status Date / Time Penicillins [PCN] Allergy Hives Verified 06/14/21 13:42 azathioprine [From Imuran] AdvReac Vomiting Verified 06/14/21 13:42 colchicine AdvReac Other Verified 01/11/22 12:38 doxycycline AdvReac Rash Verified 01/11/22 12:38 famotidine [From Pepcid] AdvReac Other Verified 01/13/22 07:22 griseofulvin AdvReac NEEDS Verified 06/14/21 13:42 [From Priti-PEG FOLLOW-UP (ultramicrosize)] Sulfa (Sulfonamide AdvReac Other Verified 01/11/22 12:38 Antibiotics) Family History Father Heart disease Pacemaker Mother Heart disease Surgical History H/O cataract extraction h/o mass removed from hip H/O tubal ligation Hx of cholecystectomy Status post colon resection Social History household members: spouse Smoking Status: Never smoker alcohol intake: never substance use type: does not use ROS Constitutional Constitutional: Denies chills, fever(s) or weight gain ENT HEENT: Denies headache(s), nasal congestion or nasal discharge Cardiovascular Cardiovascular: Denies chest pain or palpitations Respiratory/Chest Respiratory/Chest: Denies cough, excessive phlegm production or shortness of breath with exertion Gastrointestinal Gastrointestinal: Denies abdominal pain, nausea or vomiting Genitourinary Genitourinary: Denies dysuria Musculoskeletal Musculoskeletal: Denies joint pain or joint swelling Integumentary Integumentary: Denies rash or wounds Neurologic Neurologic: Denies focal weakness, numbness or tingling Psychiatric Psychiatric: Denies anxiety, auditory hallucinations, depression, homicidal ideation or suicidal ideation Physical Exam Const alert General Appearance: cooperative HEENT normocephalic Eyes PERRL and EOMs intact bilaterally Neck supple, no JVD and no carotid bruits Resp normal respiratory effort, normal air movement and clear to auscultation bilaterally Cardio regular rate and regular rhythm GI normal to inspection, nondistended, normoactive bowel sounds, non-tender and non-distended GI Narrative: Abdominal incision maria a clean, dry, intact, colostomy left of midline. Extremity normal capillary refill General Extremity: Negative for edema Skin no rashes or lesions noted General Skin Exam: no breakdown Psych affect normal Appearance: appropriate Results Lab / Micro Data Result Diagrams: 01/22/22 05:05 01/23/22 05:35 Assessment & Plan Assessment/Plan (1) Debility: (2) Perforation of sigmoid colon due to diverticulitis: (3) Lupus: QUALIFIERS: Systemic lupus erythematosus organ involvement: unspecified (4) Hypothyroidism: QUALIFIERS: Hypothyroidism type: unspecified Qualified Code(s): E03.9 - Hypothyroidism, unspecified (5) Hypertension: QUALIFIERS: Hypertension type: essential hypertension Qualified Code(s): I10 - Essential (primary) hypertension (6) Autoimmune hepatitis: (7) Adrenal insufficiency: (8) Atrial fibrillation: (9) Vitamin D deficiency: (10) Hypokalemia: (11) Pancreatic insufficiency: PLAN: Plan 81 year old female with below past medical history hospitalized for perforated sigmoid diverticulitis, underwent partial colectomy, end colostomy 01/11/2022, complicated by electrolyte abnormalities, admitted to TCU with debility, here for rehabilitation, strengthening, prior to discharge home. * Debility - PT/OT. * Pain - Tylenol 1000mg q6h prn pain (1-5), Oxycodone 2.5mg q4h prn pain (6-10). * Bowel - senna/colace 1 tablet bid, Dulcolax 10mg daily prn. * Adult immunization - Administer pneumonia vaccine, covid19 vaccine, flu vaccine as appropriate. * DVT prophylaxis - HAS-BLED score 1 intermediate risk of bleeding, Mel score 8 high risk of blood clots, Rx Xarelto 10mg daily x 14 days. * Dry eyes - Artificial Tears 1 gtt 4x/day. * Glaucoma - Lumigan 1gt ou qhs, Brimonidine 1gtt ou bid, Timolol 1gtt ou daily. * Colitis - Budesonide 3mg daily. * Vitamin D deficiency - D3 2000IU daily. * Nutrition - Ensure Enlive 120ml po tidcm. * Fluid overload - Furosemide 40mg daily. * Adrenal insufficiency - Hydrocortisone 10mg daily. * Lupus - Plaquenil 200mg daily. * GI prophylaxis - Lactobacillus 1 tablet daily. * Hypothyroidism - Levothyroxine 75mcg daily. * Perforated diverticulitis - Zyvox 600mg bid. * Pancreatic insufficiency - Creon 1 tablet daily. * Atrial fibrillation - Metoprolol xl 50mg bid. * Hypokalemia - KCL 20meq daily.
[2022-01-21 22:45] VITALS: PULSE 111; RESP 16; O2SAT 96
[2022-01-21] MEDS: BRIMONIDINE 0.15% 5 ML Bottle 1 DRP EACH EYE (22:49)
[2022-01-21] MEDS: Glycerin/Hypromellose/PEG400 15 ml Bottle 1 DRP OPHTHALMIC (22:54)
[2022-01-21] MEDS: Linezolid 600 MG Tablet PO (23:13)
[2022-01-21] MEDS: Senna/Docusate Sodium 1 Tablet PO (23:27)
[2022-01-21 23:28] VITALS: PULSE 111
[2022-01-21] MEDS: Metoprolol(XL)Succ 50 MG Tablet PO (23:28)
[2022-01-22 05:34] LABS: Absolute Lymphocyte Count 2.15 X10^3/uL (0.83-4.51); Absolute Neutrophil Count 9.3 X10^3/uL (2.0-7.7); Basophil# 0.05 X10^3/uL; Basophil% 0.4 % (0-1); Eosinophil# 0.12 X10^3/uL; Eosinophils% 0.9 % (0-5); Hematocrit 32.4 % (37-47); Hemoglobin 10.9 g/dL (12.0-15.0); Lymphocyte # 2.15 X10^3/ul (0.83-4.51); Lymphocyte % 16.7 % (19-41); Mean Corp Hgb Conc 33.6 g/dL (32-36); Mean Corpuscular Hgb 31.3 pg (27.0-32.0); Mean Corpuscular Volume 93.1 fL (81-99); Mean Platelet Vol. 10.1 fl (6.2-12.0); Monocyte# 0.93 X10^3/uL; Monocyte% 7.2 % (0-10); NRBC Flagged by Analyzer 0 % (0-5); Neutrophil # 9.34 X10^3/uL (2.7-7.7); Neutrophil % 72.5 % (47-70); Platelet Count 238 K/mm3 (150-450); RBC Distribution Width CV 16.5 % (11.6-14.6); RBC Distribution Width SD 55.7 fl (35.1-43.9); Red Blood Count 3.48 M/mm3 (4.2-5.4); White Blood Count 12.9 K/mm3 (4.4-11.0)
[2022-01-22 05:56] LABS: Anion Gap 8 (5-15); BUN 14 mg/dL (7-18); BUN/Creat Ratio 22.5 RATIO (10-20); Calcium,Total 8.2 mg/dL (8.5-10.1); Chloride 94 mmol/L (98-107); Creatinine, Serum 0.62 mg/dL (0.55-1.02); EST Glomerular Filtration Rate 97 mL/min (>60); Est Glom Filt Rate - Afr Amer 118 mL/min (>60); Estimated Creatinine Clearance 35.24 ml/min; Glucose 93 mg/dL (74-106); Potassium 3.4 mmol/L (3.5-5.1); Sodium Level 132 mmol/L (136-145)
[2022-01-22 06:43] VITALS: BP 125/49; PULSE 98
[2022-01-22] MEDS: Timolol 0.5% 5ML OPTH.BTL 1 DRP EACH EYE (06:50)
[2022-01-22] MEDS: BRIMONIDINE 0.15% 5 ML Bottle 1 DRP EACH EYE ×2 (06:51→21:51)
[2022-01-22] MEDS: Glycerin/Hypromellose/PEG400 15 ml Bottle 1 DRP OPHTHALMIC ×4 (06:52→21:52)
--- NOTE | 2022-01-22 07:55 | NURSING ---
Patient given zyvox crushed in ice cream last night per her request. She became sick to her stomach and threw up right after. Nausea resolved right away and she was able to take her other pills with no trouble. Patient and daughter adamant that she can only take home synthroid, lumigan, and potassium. They report the potassium pills make her throw up and she needs to take her home capsules. Discussed with pharmacy and then explained to patient and daughter that her insurance doesn't allow her to use her home meds here. Patient and daughter decided to have her take her home dose of synthroid this AM. Home doses in her med box in room. They also wanted to take her synthroid alone and other meds later with breakfast. Pharmacy to re-schedule other 0600 pills to 0800.
[2022-01-22] MEDS: Furosemide 40 MG Tablet PO (09:18)
[2022-01-22] MEDS: Linezolid 600 MG Tablet PO (09:18)
[2022-01-22] MEDS: Budesonide 3 MG CAPSULE.EC PO (09:18)
[2022-01-22 09:19] VITALS: BP 125/49; PULSE 98
[2022-01-22] MEDS: Senna/Docusate Sodium 1 Tablet PO ×2 (09:19→21:52)
[2022-01-22] MEDS: Cholecalciferol (VIT D3) 25 MCG TABLET (1,000 UNITS) 50 MCG PO (09:19)
[2022-01-22] MEDS: Metoprolol(XL)Succ 50 MG Tablet PO ×2 (09:19→21:53)
[2022-01-22] MEDS: Hydroxychloroquine 200 MG Tablet PO (09:20)
[2022-01-22] MEDS: Hydrocortisone 10 MG Tablet PO (09:20)
--- NOTE | 2022-01-22 09:38 | NURSING ---
pt refusing to take hospital provided potassium. per trish, ok for pt to take own potassium from home. pt/family aware
[2022-01-22] MEDS: Tuberculin,Purif.prot.deriv. 50 TU/ML Vial 0.1 ML ID (11:00)
--- NOTE | 2022-01-22 11:18 | PN.SURG_ITS ---
Subjective Subjective Patient was seen and evaluated during AM rounds. She is found sitting up and out of bed eating breakfast with speech therapy. Her daughter has a number of questions related to sputum cultures and blood cultures, but states that her mother seems to be eating and resting better still. She does note that her mother had 1 dose of doxycycline yesterday which resulted in vomiting, but otherwise has been keeping food down. Objective Data Objective Data Vital Signs: Vital Signs Temp Pulse Resp BP Pulse Ox O2 Del Method 97.9 F 98 16 125/49 H 96 Room Air 01/21/22 20:01 01/22/22 09:19 01/21/22 22:45 01/22/22 09:19 01/21/22 22:45 01/21/22 22:45 Oxygen Delivery Method Room Air Weight: 111 lb 8.862 oz Body Mass Index (BMI) 23.3 Lab / Micro Data Result Diagrams: 01/22/22 05:05 01/22/22 05:05 Labs: Laboratory Results - last 24 hr 01/22/22 05:05: WBC 12.9 H, RBC 3.48 L, Hgb 10.9 L, Hct 32.4 L, MCV 93.1, MCH 31.3, MCHC 33.6, RDW Std Deviation 55.7 H, RDW Coeff of Samreen 16.5 H, Plt Count 238, MPV 10.1, Immature Gran % (Auto) 2.300 H, Neut % (Auto) 72.5 H, Lymph % (Auto) 16.7 L, [place] % (Auto) 7.2, Eos % (Auto) 0.9, Baso % (Auto) 0.4, Absolute Neuts (auto) 9.3 H, Absolute Lymphs (auto) 2.15, Nucleated RBC % 0 01/22/22 05:05: Sodium 132 L, Potassium 3.4 L, Chloride 94 L, Carbon Dioxide 30.0, Anion Gap 8, BUN 14, Creatinine 0.62, Estim Creat Clear Calc 35.24, Est GFR (MDRD) Af Amer 118, Est GFR (MDRD) Non-Af 97, BUN/Creatinine Ratio 22.5 H, Glucose 93, Calcium 8.2 L Physical Exam Const oriented x3 and no apparent distress Resp normal respiratory effort GI GI Narrative: Nondistended, soft, improved abdominal tenderness aside from at the superior aspect of her incision, incision line is healing well without surrounding erythema or drainage from the incision line. Left upper quadrant colostomy with?thinner output today. Left lower quadrant drain site closed well-healing Assessment & Plan Assessment/Plan (1) Perforation of sigmoid colon due to diverticulitis: PLAN: Patient is postoperative day 11 from Alfonso's procedure with drain placement. Patient's appetite continues slow improvement. She was transferred to the transitional care unit yesterday and seems to be settling in well. An tibiotic therapy was begun for sputum cultures that returned positive for MRSA. Patient has a noted allergy to doxycycline and therefore Zyvox has been ordered. Neuro: Schedule one analgesic medication and leave a as needed as well Pulm/CV: Supplemental O2 weaned, patient becomes mildly tachycardic with activity?suspect severe deconditioning FEN/GI: Patient requires some further electrolyte replacement and is ordered 20 mEq potassium chloride daily, regular diet with Ensure 01/18/2022 and is ricardo erating progressively more oral intake, patient with regular ostomy output?we will look to change ostomy appliance tomorrow, home PPI Heme/ID: Hemoglobin stable, leukocytosis slightly worsened today, 5-day course of Zyvox ordered for MRSA?positive sputum cultures on 01/14/2022, Cipro Flagyl discontinued 01/18/2022. Endo: Steroid taper per medicine Proph: SCDs, mobilize as much as tolerated, Lovenox subcu daily Dispo: Continue TCU stay
[2022-01-22] MEDS: POTASSIUM CHLORIDE 10 MEQ CAPSULE.ER 20 MEQ PO ×2 (13:40→13:41)
[2022-01-22 14:59] VITALS: BP 114/64; PULSE 101; RESP 18; TEMP 36.2; O2SAT 93
[2022-01-22] MEDS: Rivaroxaban 10 MG Tablet PO (17:35)
[2022-01-22 21:15] VITALS: PULSE 99; RESP 18; O2SAT 94
[2022-01-22] MEDS: OPTH EACH EYE (21:51)
[2022-01-22] MEDS: BIMATOPROST 0.01% EACH EYE (21:51)
[2022-01-22 21:53] VITALS: PULSE 98
[2022-01-22] MEDS: 0.9% Saline Lock 10 ML Syringe IV (22:29)
--- NOTE | 2022-01-22 23:22 | PCM.RX.CS ---
Consult Pharmacy has been consulted to manage selected antiobiotic: Vancomycin Type of Consult: New start Suspected Infection: Other Prior Doses of Antibiotics Received/Current Regimen: Medications Vancomycin HCl 750 mg/ Sodium (Chloride) 265 mls @ 250 mls/hr IV Q24H AFTAB Discontinued Medications Vancomycin HCl 750 mg/ Sodium (Chloride) 265 mls @ 250 mls/hr IV X1 ONE Stop: 01/22/22 23:03 Last Admin: 01/22/22 22:29 Dose: 250 mls/hr Labs: Sodium 132 mmol/L (136-145) L 01/22/22 05:05 Potassium 3.4 mmol/L (3.5-5.1) L 01/22/22 05:05 Chloride 94 mmol/L (98-107) L 01/22/22 05:05 Carbon Dioxide 30.0 mmol/L (21.0-32.0) 01/22/22 05:05 Anion Gap 8 (5-15) 01/22/22 05:05 BUN 14 mg/dL (7-18) 01/22/22 05:05 Creatinine 0.62 mg/dL (0.55-1.02) 01/22/22 05:05 Est GFR (MDRD) Af Amer 118 mL/min (>60) 01/22/22 05:05 Est GFR (MDRD) Non-Af 97 mL/min (>60) 01/22/22 05:05 BUN/Creatinine Ratio 22.5 RATIO (10-20) H 01/22/22 05:05 Glucose 93 mg/dL (74-106) 01/22/22 05:05 Weight used for dosin.6 kg Estimated Creatinine Clearance: 35 Goal Trough: 15-20 mcg/mL Pharmacy Plan for Drug Dosing: Vancomycin IV was initiated to replace the PO Zyvox due to intolerance. The same stop date of 01/26/22 was kept. A trough level will be drawn 01/24/22. Pharmacy Service will continue to monitor and adjust dosing as required. Follow-Up Labs: Trough Vancomycin Labs to be done on [date and time ordered]: 01/24/22 @2200
[2022-01-23] MEDS: Glycerin/Hypromellose/PEG400 15 ml Bottle 1 DRP OPHTHALMIC ×4 (06:15→22:28)
[2022-01-23] MEDS: Levothyroxine 75 MCG Tablet PO (06:15)
[2022-01-23] MEDS: Timolol 0.5% 5ML OPTH.BTL 1 DRP EACH EYE (06:18)
[2022-01-23] MEDS: BRIMONIDINE 0.15% 5 ML Bottle 1 DRP EACH EYE ×2 (06:20→22:35)
[2022-01-23 06:27] LABS: Anion Gap 7 (5-15); BUN 11 mg/dL (7-18); BUN/Creat Ratio 18.1 RATIO (10-20); Calcium,Total 8.4 mg/dL (8.5-10.1); Chloride 99 mmol/L (98-107); Creatinine, Serum 0.61 mg/dL (0.55-1.02); EST Glomerular Filtration Rate 100 mL/min (>60); Est Glom Filt Rate - Afr Amer 121 mL/min (>60); Estimated Creatinine Clearance 35.24 ml/min; Glucose 86 mg/dL (74-106); Potassium 3.4 mmol/L (3.5-5.1); Sodium Level 133 mmol/L (136-145)
[2022-01-23] MEDS: Cholecalciferol (VIT D3) 25 MCG TABLET (1,000 UNITS) 50 MCG PO (09:10)
[2022-01-23] MEDS: Hydrocortisone 10 MG Tablet PO (09:10)
[2022-01-23] MEDS: Senna/Docusate Sodium 1 Tablet PO ×2 (09:10→22:30)
[2022-01-23] MEDS: Budesonide 3 MG CAPSULE.EC PO (09:10)
[2022-01-23] MEDS: Hydroxychloroquine 200 MG Tablet PO (09:10)
[2022-01-23] MEDS: Furosemide 40 MG Tablet PO (09:10)
[2022-01-23] MEDS: POTASSIUM CHLORIDE 10 MEQ CAPSULE.ER 20 MEQ PO ×2 (09:12→17:48)
[2022-01-23 09:47] VITALS: BP 115/61; PULSE 86
[2022-01-23] MEDS: Metoprolol(XL)Succ 50 MG Tablet PO ×2 (09:47→22:34)
--- NOTE | 2022-01-23 11:51 | WOUNDNOTE ---
In to do more ostomy teaching with two of the patient's daughters. both have been shown how to empty the appliance and clean the end of the pouch. removed the appliance at this time. cleaned the peristomal skin with warm water. pat dry. stoma remains well budded and beefy red. peristomal skin is intact. applied a new 2 piece flat Son appliance with a small amount of stoma paste. patient tolerated well. both daughters appreciative of care. will continue education with patient and family. no further needs voiced at this time.
--- NOTE | 2022-01-23 12:59 | PN.SURG_ITS ---
Subjective Subjective Patient seen and examined during AM rounds. She was found sitting up and out of bed in a chair eating breakfast. She states that today was the first day that she felt encouraged by how she feels. By this she details that she has an appetite today. Her daughter states that they had a busy day yesterday verito ng a visit from patient's and by the end of this visitation her mother appeared very tired. Objective Data Objective Data Vital Signs: Vital Signs Temp Pulse Resp BP Pulse Ox O2 Del Method 97.2 F L 86 18 115/61 94 Room Air 01/22/22 14:59 01/23/22 09:47 01/22/22 21:15 01/23/22 09:47 01/22/22 21:15 01/22/22 21:15 Oxygen Delivery Method Room Air Weight: 111 lb 8.862 oz Body Mass Index (BMI) 23.3 Intake & Output: Intake and Output for Last 24 Hours 01/21/22 01/22/22 01/23/22 23:59 23:59 23:59 Intake Total 480 / 480 240 / 240 Output Total 200 / 200 Balance 280 / 280 240 / 240 Lab / Micro Data Result Diagrams: 01/22/22 05:05 01/23/22 05:35 Labs: Laboratory Results - last 24 hr 01/23/22 05:35: Sodium 133 L, Potassium 3.4 L, Chloride 99, Carbon Dioxide 27.0, Anion Gap 7, BUN 11, Creatinine 0.61, Estim Creat Clear Calc 35.24, Est GFR (MDRD) Af Amer 121, Est GFR (MDRD) Non-Af 100, BUN/Creatinine Ratio 18.1, Glucose 86, Calcium 8.4 L Physical Exam Const oriented x3 and no apparent distress Resp normal respiratory effort GI GI Narrative: Nondistended, soft, further improved abdominal tenderness aside from at the superior aspect of her incision, incision line is healing well without surrounding erythema or drainage from the incision line. Left upper quadrant colostomy with?thickened output today. Left lower quadrant drain site closed well-healing Assessment & Plan Assessment/Plan (1) Perforation of sigmoid colon due to diverticulitis: PLAN: Patient is postoperative day 12 from Alfonso's procedure with drain placement. Patient's appetite reportedly much better today. She was tr ansferred to the transitional care this past weekend and is focusing hard on getting home to her . Antibiotic therapy was begun for sputum cultures that returned positive for MRSA. Patient's daughter reports that vancomycin was ordered after she did not seem to tolerate Zyvox. Neuro: Schedule one analgesic medication and leave a as needed as well Pulm/CV: Supplemental O2 weaned, patient becomes mildly tachycardic with activity?suspect severe deconditioning FEN/GI: Patient requires some further electrolyte replacement and is ordered 20 mEq potassium chloride daily, regular diet with Ensure 01/18/2022 and is tolerating progressively more oral intake, patient with regular ostomy output? patient's ostomy changed with wound and ostomy nursing today, will look to remove patient's wound maria a potentially later this week Heme/ID: Vancomycin ordered for MRSA?positive sputum cultures on 01/14/2022, Cipro Flagyl discontinued 01/18/2022. Endo: Steroid taper per medicine Proph: SCDs, mobilize as much as tolerated, Lovenox subcu daily Dispo: Continue TCU stay Charges/Coding Visit Charges Inpatient E&M: 07619 [facility] Subs L1
[2022-01-23 15:46] VITALS: BP 115/55; PULSE 96; RESP 16; TEMP 36.7; O2SAT 94
--- NOTE | 2022-01-23 15:49 | NURSING ---
Resident educated on the COVID 19 vaccine and does not want to receive it.
--- NOTE | 2022-01-23 16:29 | CASEMGMT ---
Social Work Met with patient to complete initial assessment. Introduced self and role. Dtr, Barbara, present in room. Pt granted permission for SW to complete assessment with dtr present. Discussed code status and MOLST form. Pt unsure what her wishes are and would like to think about the options. Explained pt will remain full code until she notifies staff. SW did not complete MOLST form at this time. Pt explained her was given all measures and is now a total care. Empathized with situation. Explained Medicare benefit. Pt confirmed she does not have secondary insurance. Explained day 21 starts copays (02/10). Pt/dtr already decided on goal DC date by pts 02/09, but can pay privately if unsafe to DC. SW noted goals. Pt will DC home with . However, has paid caregivers to provide all assistance. Family to discuss having caregivers assist pt to at DC, if needed. Pt was independent prior with all ADLs and IADLs. All 5 children take turns visiting pt/. Pt does have IV ATB currently and has a new colostomy. Encouraged to begin teaching. Pt agreed. SW to continue to follow for DC planning. Roseline España, [employer]
[2022-01-23] MEDS: Rivaroxaban 10 MG Tablet PO (17:48)
[2022-01-23 17:53] VITALS: PULSE 96; RESP 16; O2SAT 96
[2022-01-23] MEDS: BIMATOPROST 0.01% EACH EYE (22:29)
[2022-01-23] MEDS: OPTH EACH EYE (22:29)
[2022-01-23] MEDS: 0.9% Saline Lock 10 ML Syringe IV (22:33)
[2022-01-23 22:34] VITALS: BP 138/52; PULSE 60
[2022-01-24] MEDS: 0.9% Saline Lock 10 ML Syringe IV (00:10)
[2022-01-24] MEDS: Glycerin/Hypromellose/PEG400 15 ml Bottle 1 DRP OPHTHALMIC ×4 (06:31→22:47)
[2022-01-24] MEDS: Levothyroxine 75 MCG Tablet PO (06:32)
--- NOTE | 2022-01-24 07:51 | PCM.PN.DRR ---
TCU RX Drug Regimen Review Subjective: TCU Admission. 81 YOF presented to the ER with abdominal pain. Resident then admitted for management of perforated sigmoid diverticulitis and underwent partial colectomy with Dr. May. Surgical cultures grew enterobacter aerogenes and bacteroides fragilis which were treated with ciprofloxacin and metronidazole. Hospitalization complicated by electrolyte abnormalities. Sputum culture then grew MRSA for which the patient was started on linezolid before discharge due to allergies to penicillin, sulfa and doxycycline. Admitted to TCU with debility for strengthening and rehabilitation. While on TCU, antibiotic was switched to vancomycin for linezolid due to an intolerance (nausea, upset stomach). Objective: Allergies Penicillins [PCN] Allergy (Verified 06/14/21 13:42) Hives azathioprine [From Imuran] Adverse Reaction (Verified 06/14/21 13:42) Vomiting colchicine Adverse Reaction (Verified 01/11/22 12:38) Other doxycycline Adverse Reaction (Verified 01/11/22 12:38) Rash famotidine [From Pepcid] Adverse Reaction (Verified 01/13/22 07:22) Other Hallucinations griseofulvin [From Priti-PEG (ultramicrosize)] Adverse Reaction (Verified 06/14/21 13:42) NEEDS FOLLOW-UP RACING HEART, HEADACHE Sulfa (Sulfonamide Antibiotics) Adverse Reaction (Verified 01/11/22 12:38) Other Current Medications Generic Name Dose Route Start Last Admin Trade Name Freq PRN Reason Stop Dose Admin Acetaminophen 1,000 mg 01/21/22 20:47 Acetaminophen 500 Mg Tablet PO Q6H PRN PRN Pain Score 1-5 Bimatoprost 1 drp 01/22/22 22:00 01/23/22 22:29 Bimatoprost 0.01% 2.5 Ml Opth.Btl EACH EYE 1 drp QHS AFTAB Administration Bisacodyl 10 mg 01/21/22 20:47 Bisacodyl 5 Mg Tablet PO DAILY PRN Constipation Brimonidine Tartrate 1 drp 01/24/22 08:00 Brimonidine 0.15% 5 Ml Bottle EACH EYE 0800,2200 AFTAB Budesonide 3 mg 01/22/22 08:00 01/23/22 09:10 Budesonide 3 Mg Capsule.Ec PO 3 mg 0800 AFTAB Administration Cholecalciferol 50 mcg 01/22/22 08:00 01/23/22 09:10 Cholecalciferol (Vit D3) 25 Mcg Tablet (1,000 Units) PO 50 mcg 0800 AFTAB Administration Furosemide 40 mg 01/22/22 08:00 01/23/22 09:10 Furosemide 40 Mg Tablet PO 40 mg 0800 AFTAB Administration Heparin Sodium (Beef Lung) 50 units 01/22/22 00:13 Heparin Pf Lock 10 Units/Ml 50 Units/5 Ml Syringe IV UD PRN PICC Line Heparin Flush Hydrocortisone 10 mg 01/22/22 08:00 01/23/22 09:10 Hydrocortisone 10 Mg Tablet PO 10 mg DAILYCM AFTAB Administration Hydroxychloroquine Sulfate 200 mg 01/22/22 08:00 01/23/22 09:10 Hydroxychloroquine 200 Mg Tablet PO 200 mg DAILYCM AFTAB Administration Vancomycin IV-PHARMACY TO DOSE 500 mls @ 250 mls/hr 01/22/22 21:27 1 each/ Sodium Chloride IV PRN PRN Rx to Dose Protocol Vancomycin HCl 750 mg/ Sodium 265 mls @ 250 mls/hr 01/23/22 22:30 01/24/22 00:20 Chloride IV 01/26/22 23:34 Infused Q24H AFTAB Infusion Sodium Chloride 250 mls @ 15 mls/hr 01/23/22 00:52 IV .[id number] PRN Saline Flush Sodium Chloride 250 mls @ 15 mls/hr 01/23/22 00:52 IV .[id number] PRN Additional IVPB Infusion Lactobacillus Acidophilus 1 tablet 01/22/22 08:00 01/23/22 09:10 Lactobacillus Acidophilus PO 1 tablet 0800 AFTAB Administration Levothyroxine Sodium 75 mcg 01/23/22 06:00 01/24/22 06:32 Levothyroxine 75 Mcg Tablet PO 75 mcg DAILY AFTAB Administration Metoprolol Succinate 50 mg 01/22/22 08:00 01/23/22 22:34 Metoprolol(Xl)Succ 50 Mg Tablet PO 50 mg 799,2199 AFTAB Administration Nutritional Formula (Lactose Free) 120 ml 01/23/22 17:00 01/24/22 06:32 Ensure Enlive 120 Ml Liquid PO Not Given 4X/DAY AFTAB Oxycodone HCl 5 mg 01/21/22 20:47 Oxycodone 5 Mg Tablet PO Q4H PRN PRN Pain Score 6-10 Pancrelipase 1 capsule 07/10/22 08:00 01/23/22 09:10 Creon 12,[address] Capsule PO 1 capsule DAILYCM AFTAB Administration Potassium Chloride 20 meq 01/23/22 08:00 01/23/22 17:48 Potassium Chloride 10 Meq Capsule.Er PO 20 meq BIDCM AFTAB Administration Rivaroxaban 10 mg 01/22/22 17:00 01/23/22 17:48 Rivaroxaban 10 Mg Tablet PO 02/05/22 17:01 10 mg DINNER AFTAB Administration Senna/Docusate Sodium 1 tablet 01/22/22 08:00 01/23/22 22:30 Senna/Docusate Sodium 1 Tablet PO 1 tablet 0800,2200 AFTAB Administration Sodium Chloride 10 - 40 ml 01/22/22 00:13 01/24/22 00:10 0.9% Saline Lock 10 Ml Syringe IV 10 ml UD PRN Administration Open End PICC Flush Sodium Chloride 10 - 40 ml 01/22/22 00:13 0.9 % Nacl (Sterile) Posiflush 10 Ml IV UD PRN Port access or dressing change Timolol Maleate 1 drp 01/24/22 08:00 Timolol 0.5% 5ml Opth.Btl EACH EYE 0800 [facility] Tuberculin PPD 0.1 ml 01/29/22 10:00 Tuberculin,Purif.Prot.Deriv. 50 Tu/Ml Vial ID 01/29/22 10:01 X1 ONE Problem List (Last Reviewed 01/21/22 @ 20:[address] Barak May MD) Pancreatic insufficiency (Acute) Hypokalemia (Acute) Vitamin D deficiency (Acute) Atrial fibrillation (Acute) Debility (Acute) Perforation of sigmoid colon due to diverticulitis (Acute) Autoimmune hepatitis (Chronic) Hypertension (Chronic) Lupus (Chronic) Hypothyroidism (Chronic) Adrenal insufficiency (Chronic) Vital Signs Temp Pulse Resp BP Pulse Ox O2 Del Method 98.1 F 60 16 138/52 H 96 Room Air 01/23/22 15:46 01/23/22 22:34 01/23/22 17:53 01/23/22 22:34 01/23/22 17:53 01/23/22 17:53 Oxygen Delivery Method Room Air Weight: 50.6 kg Body Mass Index (BMI) 23.3 Sodium 133 mmol/L (136-145) L 01/23/22 05:35 Potassium 3.4 mmol/L (3.5-5.1) L 01/23/22 05:35 Chloride 99 mmol/L (98-107) 01/23/22 05:35 Carbon Dioxide 27.0 mmol/L (21.0-32.0) 01/23/22 05:35 Anion Gap 7 (5-15) 01/23/22 05:35 BUN 11 mg/dL (7-18) 01/23/22 05:35 Creatinine 0.61 mg/dL (0.55-1.02) 01/23/22 05:35 Est GFR (MDRD) Af Amer 121 mL/min (>60) 01/23/22 05:35 Est GFR (MDRD) Non-Af 100 mL/min (>60) 01/23/22 05:35 BUN/Creatinine Ratio 18.1 RATIO (10-20) 01/23/22 05:35 Glucose 86 mg/dL (74-106) 01/23/22 05:35 Assessment/Plan: 1. Pain: acetaminophen 1000mg PO Q6H PRN pain 1-5 and oxycodone 5mg PO Q4H PRN pain 6-10. Resident has not received any medications for pain. Please continue to monitor for increased pain and PRN usage. 2. Bowel: senna/docusate 1T PO BID and bisacodyl 10mg PO daily PRN constipation. Please continue to monitor for constipation and PRN usage. Resident has not received a dose of bisacodyl and has not had a documented bowel movement. 3. DVT prophylaxis: rivaroxaban 10mg PO DINNER thru 02/05/22. Please continue to monitor for S/S of bleeding/DVT and hemoglobin (last 10.9g/dL). 4. MRSA sputum culture: vancomycin pharmacy to dose thru 01/26/22. Pharmacy will continue to monitor renal function and vancomycin dosing. Please continue to monitor for S/S of infection and diarrhea. 5. Colitis: budesonide 3mg PO daily. Please continue to monitor for headache, dizziness and delirium. This medication is on the BEERs list for delirium. 6. Adrenal insufficiency: hydrocortisone 10mg PO DAILYCM. Please continue to monitor for delirium, fractures and muscle pain. This medication is on the BEERs list for delirium. 7. Lupus: hydroxychloroquine 200mg PO BIDCM. Please continue to monitor for changes in vision (history of glaucoma as well) and rash. 8. Pancreatic insufficiency: Creon 12,000units PO DAILYCM. Please continue to monitor for abdominal pain, dyspepsia and vomiting. 9. Atrial fibrillation: metoprolol succinate 50mg PO BID. Resident has DVT prophylaxis with rivaroxaban but does not have stroke prophylaxis. Resident's CHADS-VACs score >2. Please consider stopping rivaroxaban and starting apixaban 2.5mg PO BID based on age >80 and weight <60kg. Thanks. Please continue to monitor for BP (last 138/52) and HR (last 60, has been around 96). 10. Fluid overload: furosemide 40mg PO daily. Please continue to monitor for edema, BP, potassium (last 3.4mmol/L) and sodium (last 133mmol/L). 11. Hypothyroidism: levothyroxine 75mcg PO daily. Please continue to monitor for S/S of hypo/hyperthyroidism and TSH as clinically appropriate (last 12/05/21). 12. Hypokalemia: potassium chloride 20mEq PO BIDCM. Please continue to monitor potassium. 13. Dry eyes/glaucoma: artificial tears 1gtt OU 4x/day, bimatoprost 0.01% 1gtt OU QHS, brimonidine 0.15% 1gtt OU BID and timolol 0.5% 1gtt OU daily. Please continue to monitor for S/S of glaucoma. 14. Vitamin D deficiency: cholecalciferol 50mcg PO daily. Resident does not have a vitamin D level in the chart. Please consider ordering a vitamin D level now and then annually as clinically appropriate. Thanks. 15. GI prophylaxis: lactobacillus 1T PO daily. Please continue to monitor. Assessment/Plan for indications treated with psychotropic medications: None Medical chart and medication regimen reviewed. The following medication irregularities or issues were identified: *1. Atrial fibrillation: Resident has DVT prophylaxis with rivaroxaban but does not have stroke prophylaxis. Resident's CHADS-VACs score >2. Please consider stopping rivaroxaban and starting apixaban 2.5mg PO BID based on age >80 and weight <60kg. Thanks. *2. Cholecalciferol 50mcg PO daily. Resident does not have a vitamin D level in the chart. Please consider ordering a vitamin D level now and then annually as clinically appropriate. Thanks. Date of Note:: 01/24/22
[2022-01-24] MEDS: Timolol 0.5% 5ML OPTH.BTL 1 DRP EACH EYE (08:29)
[2022-01-24] MEDS: BRIMONIDINE 0.15% 5 ML Bottle 1 DRP EACH EYE ×2 (08:31→22:47)
[2022-01-24] MEDS: Budesonide 3 MG CAPSULE.EC PO (08:32)
[2022-01-24] MEDS: Furosemide 40 MG Tablet PO (08:32)
[2022-01-24] MEDS: Hydrocortisone 10 MG Tablet PO (08:32)
[2022-01-24] MEDS: Hydroxychloroquine 200 MG Tablet PO (08:32)
[2022-01-24] MEDS: Cholecalciferol (VIT D3) 25 MCG TABLET (1,000 UNITS) 50 MCG PO (08:33)
[2022-01-24] MEDS: Senna/Docusate Sodium 1 Tablet PO (08:33)
[2022-01-24] MEDS: POTASSIUM CHLORIDE 10 MEQ CAPSULE.ER 20 MEQ PO ×2 (08:33→17:23)
[2022-01-24 08:34] VITALS: PULSE 98
[2022-01-24] MEDS: Metoprolol(XL)Succ 50 MG Tablet PO ×2 (08:34→22:55)
--- NOTE | 2022-01-24 10:29 | PCM.PN.SRG ---
Subjective Subjective Patient seen and examined during AM rounds. She is sitting out of bed in a chair eating breakfast. She reports that her appetite is marginally improved today. She is otherwise without complaint. Objective Data Objective Data Vital Signs: Vital Signs Temp Pulse Resp BP Pulse Ox O2 Del Method 98.1 F 98 16 138/52 H 96 Room Air 01/23/22 15:46 01/24/22 08:34 01/23/22 17:53 01/23/22 22:34 01/23/22 17:53 01/23/22 17:53 Oxygen Delivery Method Room Air Weight: 111 lb 1.808 oz Body Mass Index (BMI) 23.3 Intake & Output: Intake and Output for Last 24 Hours 01/22/22 01/23/22 01/24/22 23:59 23:59 23:59 Intake Total 480 / 480 480 / 480 505 / 505 Output Total 200 / 200 Balance 280 / 280 480 / 480 505 / 505 Lab / Micro Data Result Diagrams: 01/22/22 05:05 01/23/22 05:35 Physical Exam Const oriented x3 and no apparent distress Resp normal respiratory effort GI GI Narrative: Mildly distended, soft, appropriately tender to palpation just along the midline laparotomy incision. Laparotomy incision overall well-healing with some local irritation from the skin maria a?particularly at the waistline where the patient's pull-up meets her abdominal wall, left upper quadrant colostomy with thin pasty output. Left lower quadrant drain site well-healed. Assessment & Plan Assessment/Plan (1) Perforation of sigmoid colon due to diverticulitis: PLAN: Patient is postoperative day 13 from Alfonso's procedure with drain placement. Patient's appetite reportedly slightly better today and her daughter states that they have routinely been finishing 2 Ensure drinks per day but struggled to advance to a third as recommended. Antibiotic therapy was begun for sputum cultures that returned positive for MRSA. Patient's daughter reports that vancomycin was ordered after she did not seem to tolerate Zyvox. Neuro: Schedule one analgesic medication and leave a as needed as well Pulm/CV: Supplemental O2 weaned, intermittent tachycardia seems to be improved with review of patient's vitals FEN/GI: No labs today, regular diet with Ensure 01/18/2022 and is tolerating progressively more oral intake, patient with thinner ostomy output?they do states she is taking a stool softener which is probably unnecessary at this point given the consistency of the output, last ostomy change 01/23/2022, will look to remove patient's wound maria a potentially later this week Heme/ID: Vancomycin ordered for MRSA?positive sputum cultures on 01/14/2022, Cipro Flagyl discontinued 01/18/2022. Endo: Steroid taper per medicine Proph: SCDs, mobilize as much as tolerated, Lovenox subcu daily Dispo: Continue TCU stay
[2022-01-24 14:51] VITALS: BP 122/59; PULSE 50; RESP 12; TEMP 37; O2SAT 96
[2022-01-24] MEDS: Rivaroxaban 10 MG Tablet PO (17:24)
[2022-01-24 21:00] VITALS: PULSE 92; RESP 16; O2SAT 93
[2022-01-24 22:44] LABS: Vancomycin, Trough Level 8.1 ug/mL (5.0-15.0)
[2022-01-24] MEDS: BIMATOPROST 0.01% EACH EYE (22:46)
[2022-01-24] MEDS: OPTH EACH EYE (22:46)
[2022-01-24 22:55] VITALS: BP 135/61; PULSE 108
--- NOTE | 2022-01-24 23:22 | PCM.RX.CS ---
Consult Pharmacy has been consulted to manage selected antiobiotic: Vancomycin Type of Consult: Follow-up Suspected Infection: Other Prior Doses of Antibiotics Received/Current Regimen: Medications Vancomycin HCl 1,250 mg/ (Sodium Chloride) 275 mls @ 167 mls/hr IV Q24H AFTAB Discontinued Medications Vancomycin HCl 750 mg/ Sodium (Chloride) 265 mls @ 250 mls/hr IV Q24H AFTAB Stop: 01/26/22 23:34 Last Admin: 01/24/22 00:20 Dose: Infused Labs: Sodium 133 mmol/L (136-145) L 01/23/22 05:35 Potassium 3.4 mmol/L (3.5-5.1) L 01/23/22 05:35 Chloride 99 mmol/L (98-107) 01/23/22 05:35 Carbon Dioxide 27.0 mmol/L (21.0-32.0) 01/23/22 05:35 Anion Gap 7 (5-15) 01/23/22 05:35 BUN 11 mg/dL (7-18) 01/23/22 05:35 Creatinine 0.61 mg/dL (0.55-1.02) 01/23/22 05:35 Est GFR (MDRD) Af Amer 121 mL/min (>60) 01/23/22 05:35 Est GFR (MDRD) Non-Af 100 mL/min (>60) 01/23/22 05:35 BUN/Creatinine Ratio 18.1 RATIO (10-20) 01/23/22 05:35 Glucose 86 mg/dL (74-106) 01/23/22 05:35 Vancomycin Trough 8.1 ug/mL (5.0-15.0) 01/24/22 21:45 Weight used for dosin.4 kg Estimated Creatinine Clearance: 48.5 Goal Trough: 15-20 mcg/mL Pharmacy Plan for Drug Dosing: Vancomycin trough level of 8.1 was lower than the target range of 15-20. Will increase dose to 1250mg q24h. A trough will be drawn prior to the 3rd dose of this new regimen. Note- the original stop date from the continuation from the Zyvox order was to be 01/26/22. A trough draw for vancomycin is scheduled for 01/26/22 @ 2300, in case it is to be continued. If the vancomycin is discontinued, please cancel the trough draw. Pharmacy Service will continue to monitor and adjust dosing as required. Follow-Up Labs: Trough Vancomycin Labs to be done on [date and time ordered]: 01/26/22 @1142
[2022-01-25] MEDS: Levothyroxine 75 MCG Tablet PO (05:47)
[2022-01-25] MEDS: Glycerin/Hypromellose/PEG400 15 ml Bottle 1 DRP OPHTHALMIC ×4 (05:47→21:55)
[2022-01-25 05:54] LABS: Anion Gap 7 (5-15); BUN 14 mg/dL (7-18); BUN/Creat Ratio 24.4 RATIO (10-20); Calcium,Total 8.2 mg/dL (8.5-10.1); Chloride 103 mmol/L (98-107); Creatinine, Serum 0.57 mg/dL (0.55-1.02); EST Glomerular Filtration Rate 107 mL/min (>60); Est Glom Filt Rate - Afr Amer 130 mL/min (>60); Estimated Creatinine Clearance 35.11 ml/min; Glucose 100 mg/dL (74-106); Potassium 3.7 mmol/L (3.5-5.1); Sodium Level 134 mmol/L (136-145)
[2022-01-25 08:11] VITALS: BP 143/71; PULSE 101
[2022-01-25 08:12] VITALS: PULSE 101
[2022-01-25] MEDS: Hydroxychloroquine 200 MG Tablet PO (08:12)
[2022-01-25] MEDS: Cholecalciferol (VIT D3) 25 MCG TABLET (1,000 UNITS) 50 MCG PO (08:12)
[2022-01-25] MEDS: Metoprolol(XL)Succ 50 MG Tablet PO ×2 (08:12→21:56)
[2022-01-25] MEDS: Furosemide 40 MG Tablet PO (08:12)
[2022-01-25] MEDS: Budesonide 3 MG CAPSULE.EC PO (08:12)
[2022-01-25] MEDS: Hydrocortisone 10 MG Tablet PO (08:12)
[2022-01-25] MEDS: POTASSIUM CHLORIDE 10 MEQ CAPSULE.ER 20 MEQ PO ×2 (08:13→17:10)
[2022-01-25] MEDS: BRIMONIDINE 0.15% 5 ML Bottle 1 DRP EACH EYE ×2 (08:14→21:54)
[2022-01-25 08:33] VITALS: PULSE 101
--- NOTE | 2022-01-25 08:41 | NURSING ---
R' REMAINS IN DROPLET ISOLATION D/T MRSA. ALL CARE PROVIDED IN ROOM.
--- NOTE | 2022-01-25 09:12 | NURSING ---
Addendum entered by Melissa Schwarz 01/25/22 11:55: THIS NURSE AND Olga BIRCH RN COMPLETED COLOSTOMY DRESSING CHANGE. DAUGHTER WAS PRESENT THE ENTIRE TIME AND QUESTIONS AND PROCEDURE OF DRESSING CHANGE WAS TAUGHT. Addendum entered by Melissa Schwarz 01/25/22 11:38: SHOWER WAS GIVEN. COLOSTOMY APPLIANCE CHANGED, WELL MEPILEX TO COCCYX. CURRENTLY RESTING IN BED. DAUGHTER AT BEDSIDE. Original Note: DR ZHAO IN THIS MORNING. ASSESSED COLOSTOMY. WANTS R' TO RECEIVE SHOWER TODAY. UPDATED SURGICAL BRACE MAKER'S. STATES HE WILL PROBABLY REMOVE LEROY NEXT WEEK.
[2022-01-25] MEDS: Timolol 0.5% 5ML OPTH.BTL 1 DRP EACH EYE (09:42)
--- NOTE | 2022-01-25 09:47 | CASEMGMT ---
Social Work IDT met with patient and two daughters for care plan meeting. Discussed patient's progress in PT/OT/SN. Explained Medicare benefit. The goal DC date per family/pt is 02/09, which is day 20. Pt does not have a secondary insurance. Pt will DC home with . has 24/7 caregivers whom can assist pt at home as well. Pt is on IV ATB until 01/26. Pt has a new colostomy. Continued to encourage teaching to pt and any family present. Pt expressed apprehension with learning and changing it. Explained HHC will not be to the house every day to assist at home, but can continue with teaching at home. Explained to dtrs that nursing will need teach someone else who will be at home with pt to change it and to contact nursing to get times scheduled. Dtrs expressed understanding. Dtrs asked several questions pertaining to nursing. Relayed communication to Director. SW to continue to follow for DC planning. Roseline España, PROPULSION MOTOR AND GENERATOR REPAIRER [employer]
--- NOTE | 2022-01-25 14:02 | WOUNDNOTE ---
In to assess the ostomy appliance. this nurse has changed the ostomy appliance 3 times with daughter Barbara and another daughter had watched this nurse change the appliance as well on 01/23/22. Barbara is present at bedside at this time and states patient had a leak through the night because the appliance was full of gas and stool had leaked out near the staple line. daughter states the appliance was changed by nursing today after the patient showered. reminded daughter that this nurse has shown her numerous times how to burp the appliance and encouraged her to check the appliance throughout the day. Also encouraged daughter to start emptying the appliance since she will be assisting with this at home. planned on having the daughter change the appliance with this nurse observing tomorrow, but since the appliance was just changed will plan this for Sunday. daughter has been given the opportunity to ask questions. states she wants a step by step how to change appliance before going home in case she is not there. Had already discussed this with daughter that this nurse has one printed out for her already. discussed with nursing as well that daughter needs to be more hands on in assisting with care prior to pt going home. Daughter apparently had stated to SW that she has not been taught ostomy care. this nurse has shown this daughter numerous times and will continue teaching throughout stay. Daughter Barbara stays with patient in room day and night and observes all care including ostomy care.
[2022-01-25 15:18] VITALS: BP 129/90; PULSE 81; RESP 12; TEMP 36.8; O2SAT 96
--- NOTE | 2022-01-25 16:00 | CHAPLAIN ---
Type of Pastoral Visit ___ Initial Visit _x__ Follow-up Visit ___ On-call Visit ___ General Patient Visit ___ Spiritual Assessment ___ Family Conference ___ Bereavement ___ Rapid Response ___ Code Blue ___ Other (describe below) Pastoral Care Referral From _x__ Patient _x__ Family ___ Nurse ___ Physician ___ Teacher Education Director ___ Bioinformatics Developer ___ Other (describe below) Sacrament/Intervention _x__ Active listening ___ Anointing ___ Buddhist ___ Bereavement ___ Communion ___ Sunshine exploration ___ ___ Life review _x__ Prayer ___ Reconciliation ___ Sacrament of Sick _x__ Supportive presence ___ Wedding ___ Other (describe below) Pastoral Comments follow up visit from previous admission in [facility]; daughter is with her which is very typical; pt reports being tired from therapy and admits that there has been some improvements; spouse came on Sunday as that was their anniversary; concern is for spouse who also has health issues; goal is that patient can leave by the which is her birthday; prayer and presence given
[2022-01-25] MEDS: Rivaroxaban 10 MG Tablet PO (17:10)
[2022-01-25] MEDS: 0.9% Saline Lock 10 ML Syringe IV ×2 (17:12→23:47)
[2022-01-25 21:52] VITALS: BP 141/69; PULSE 104
[2022-01-25 21:56] VITALS: PULSE 104
[2022-01-25] MEDS: OPTH EACH EYE (21:56)
[2022-01-25] MEDS: BIMATOPROST 0.01% EACH EYE (21:56)
[2022-01-26] MEDS: Glycerin/Hypromellose/PEG400 15 ml Bottle 1 DRP OPHTHALMIC ×4 (05:50→21:19)
[2022-01-26] MEDS: Levothyroxine 75 MCG Tablet PO (05:50)
[2022-01-26 08:13] VITALS: BP 138/71; PULSE 94
[2022-01-26 08:14] VITALS: PULSE 94
[2022-01-26] MEDS: Hydrocortisone 10 MG Tablet PO (08:14)
[2022-01-26] MEDS: Furosemide 40 MG Tablet PO (08:14)
[2022-01-26] MEDS: Metoprolol(XL)Succ 50 MG Tablet PO ×2 (08:14→21:04)
[2022-01-26] MEDS: Hydroxychloroquine 200 MG Tablet PO (08:14)
[2022-01-26] MEDS: Budesonide 3 MG CAPSULE.EC PO (08:15)
[2022-01-26] MEDS: Cholecalciferol (VIT D3) 25 MCG TABLET (1,000 UNITS) 50 MCG PO (08:15)
[2022-01-26] MEDS: BRIMONIDINE 0.15% 5 ML Bottle 1 DRP EACH EYE ×2 (08:16→21:02)
[2022-01-26] MEDS: Timolol 0.5% 5ML OPTH.BTL 1 DRP EACH EYE (08:17)
[2022-01-26] MEDS: POTASSIUM CHLORIDE 10 MEQ CAPSULE.ER 20 MEQ PO ×2 (08:22→19:01)
--- NOTE | 2022-01-26 11:17 | PCM.PN.SRG ---
Subjective Subjective Patient seen and examined during AM rounds. She is found sitting out of bed in a chair. She expressed some fatigue, but states that overall she is doing well. Her daughter confirms that they continue to push oral intake and that it has been increasing slowly. They report that Mrs. Espinoza was able to shower yesterday and wash her hair today. Objective Data Objective Data Vital Signs: Vital Signs Temp Pulse Resp BP Pulse Ox O2 Del Method 98.3 F 94 12 138/71 H 96 Room Air 01/25/22 15:18 01/26/22 08:14 01/25/22 15:18 01/26/22 08:13 01/25/22 15:18 01/25/22 15:18 Oxygen Delivery Method Room Air Weight: 111 lb 1.808 oz Body Mass Index (BMI) 23.3 Intake & Output: Intake and Output for Last 24 Hours 01/24/22 01/25/22 01/26/22 23:59 23:59 23:59 Intake Total 985 / 985 875 / 875 395 / 395 Output Total 200 / 200 400 / 400 Balance 785 / 785 475 / 475 395 / 395 Lab / Micro Data Result Diagrams: 01/22/22 05:05 01/25/22 05:22 Physical Exam Const oriented x3 and no apparent distress Resp normal respiratory effort GI GI Narrative: Mildly distended, soft, appropriately tender to palpation just along the midline laparotomy incision. Laparotomy incision overall well-healing and has an improved appearance following her shower yesterday, left upper quadrant colostomy with thin pasty output. Left lower quadrant drain site well-healed. Assessment & Plan Assessment/Plan (1) Perforation of sigmoid colon due to diverticulitis: PLAN: Patient is postoperative day 15 from Alfonso's procedure with drain placement. Patient's oral intake continues to improve and she is taking 2 ensures plus some [place] breakfast and Ensure pudding. They had several questions related to the permanency of the colostomy. Patient's daughter states that overall she is feeling more comfortable with the care of this ostomy, but still finds the smell from it offensive. Mrs. Espinoza reports that she still is fatiguing easily with activity. Neuro: Schedule one analgesic medication and leave a as needed as well Pulm/CV: Supplemental O2 weaned, intermittent tachycardia seems to be improved with review of patient's vitals FEN/GI: We will obtain labs for tomorrow given that patient is on scheduled Lasix, regular diet with Ensure 01/18/2022 and is tolerating progressively more oral intake, will like to discontinue laparotomy maria a next week Heme/ID: Vancomycin ordered for MRSA?positive sputum cultures on 01/14/2022, Cipro Flagyl discontinued 01/18/2022. Endo: Steroid taper per medicine Proph: SCDs, mobilize as much as tolerated, Lovenox subcu daily Dispo: Continue TCU stay Charges/Coding Visit Charges Inpatient E&M: 55561 SNF Subs L1
[2022-01-26 15:56] VITALS: BP 116/55; PULSE 97; RESP 15; TEMP 35.7; O2SAT 99
[2022-01-26] MEDS: Rivaroxaban 10 MG Tablet PO (19:01)
[2022-01-26 21:04] VITALS: BP 135/56; PULSE 97
[2022-01-26] MEDS: 0.9% Saline Lock 10 ML Syringe IV ×2 (21:11→23:46)
[2022-01-26 21:15] VITALS: PULSE 98; RESP 16; O2SAT 95
[2022-01-26] MEDS: OPTH EACH EYE (21:15)
[2022-01-26] MEDS: BIMATOPROST 0.01% EACH EYE (21:15)
[2022-01-26 23:49] LABS: Vancomycin, Trough Level 15.3 ug/mL (5.0-15.0)
--- NOTE | 2022-01-27 03:38 | PCM.RX.CS ---
Consult Pharmacy has been consulted to manage selected antiobiotic: Vancomycin Type of Consult: Follow-up Labs: Sodium 134 mmol/L (136-145) L 01/25/22 05:22 Potassium 3.7 mmol/L (3.5-5.1) 01/25/22 05:22 Chloride 103 mmol/L (98-107) 01/25/22 05:22 Carbon Dioxide 24.0 mmol/L (21.0-32.0) 01/25/22 05:22 Anion Gap 7 (5-15) 01/25/22 05:22 BUN 14 mg/dL (7-18) 01/25/22 05:22 Creatinine 0.57 mg/dL (0.55-1.02) 01/25/22 05:22 Est GFR (MDRD) Af Amer 130 mL/min (>60) 01/25/22 05:22 Est GFR (MDRD) Non-Af 107 mL/min (>60) 01/25/22 05:22 BUN/Creatinine Ratio 24.4 RATIO (10-20) H 01/25/22 05:22 Glucose 100 mg/dL (74-106) 01/25/22 05:22 Vancomycin Trough 15.3 ug/mL (5.0-15.0) H 01/26/22 22:48 Goal Trough: 15-20 mcg/mL Pharmacy Plan for Drug Dosing: Pharmacy Service will continue to monitor and adjust dosing as required. TROUGH 15.3 AT 23 HRS. NO CHANGES, FOLLOW UP TROUGH IN 2 DAYS Follow-Up Labs: Trough Vancomycin Labs to be done on [date and time ordered]: 01/28 @ 2300
[2022-01-27 05:30] LABS: Absolute Lymphocyte Count 1.86 X10^3/uL (0.83-4.51); Absolute Neutrophil Count 5.3 X10^3/uL (2.0-7.7); Basophil# 0.07 X10^3/uL; Basophil% 0.8 % (0-1); Eosinophil# 0.23 X10^3/uL; Eosinophils% 2.7 % (0-5); Hematocrit 32.8 % (37-47); Hemoglobin 10.7 g/dL (12.0-15.0); Lymphocyte # 1.86 X10^3/ul (0.83-4.51); Lymphocyte % 21.8 % (19-41); Mean Corp Hgb Conc 32.6 g/dL (32-36); Mean Corpuscular Hgb 31.4 pg (27.0-32.0); Mean Corpuscular Volume 96.2 fL (81-99); Mean Platelet Vol. 9.5 fl (6.2-12.0); Monocyte# 0.91 X10^3/uL; Monocyte% 10.7 % (0-10); NRBC Flagged by Analyzer 0 % (0-5); Neutrophil # 5.31 X10^3/uL (2.7-7.7); Neutrophil % 62.1 % (47-70); Platelet Count 287 K/mm3 (150-450); RBC Distribution Width SD 59.3 fl (35.1-43.9); Red Blood Count 3.41 M/mm3 (4.2-5.4); White Blood Count 8.5 K/mm3 (4.4-11.0)
[2022-01-27 05:58] LABS: Anion Gap 7 (5-15); BUN 17 mg/dL (7-18); BUN/Creat Ratio 29.9 RATIO (10-20); Calcium,Total 8.6 mg/dL (8.5-10.1); Chloride 102 mmol/L (98-107); Creatinine, Serum 0.57 mg/dL (0.55-1.02); EST Glomerular Filtration Rate 108 mL/min (>60); Est Glom Filt Rate - Afr Amer 131 mL/min (>60); Estimated Creatinine Clearance 35.11 ml/min; Glucose 90 mg/dL (74-106); Magnesium 2.2 mg/dL (1.6-2.6); Phosphorus 3.8 mg/dL (2.5-4.9); Potassium 3.9 mmol/L (3.5-5.1); Sodium Level 134 mmol/L (136-145)
[2022-01-27] MEDS: Glycerin/Hypromellose/PEG400 15 ml Bottle 1 DRP OPHTHALMIC ×3 (06:34→17:42)
[2022-01-27] MEDS: Levothyroxine 75 MCG Tablet PO (06:35)
--- NOTE | 2022-01-27 07:54 | PCM.PN.SRG ---
Subjective Subjective Patient seen and examined during AM rounds. She is found sitting upright out of bed in a chair eating a little bit of breakfast. She states that she has just awoken. She complains that she still does not have an appetite, but continues to try to push herself. She expresses some migratory gas pains, but otherwise has no complaints. Objective Data Objective Data Vital Signs: Vital Signs Temp Pulse Resp BP Pulse Ox O2 Del Method 96.2 F L 98 16 135/56 H 95 Room Air 01/26/22 15:56 01/26/22 21:15 01/26/22 21:15 01/26/22 21:04 01/26/22 21:15 01/26/22 21:15 Oxygen Delivery Method Room Air Weight: 111 lb 1.808 oz Body Mass Index (BMI) 23.3 Intake & Output: Intake and Output for Last 24 Hours 01/25/22 01/26/22 01/27/22 23:59 23:59 23:59 Intake Total 875 / 875 935 / 935 275 / 275 Output Total 400 / 400 550 / 550 Balance 475 / 475 935 / 935 -275 / -275 Lab / Micro Data Result Diagrams: 01/27/22 05:19 01/27/22 05:19 Labs: Laboratory Results - last 24 hr 01/26/22 22:48: Vancomycin Trough 15.3 H 01/27/22 05:19: WBC 8.5, RBC 3.41 L, Hgb 10.7 L, Hct 32.8 L, MCV 96.2, MCH 31.4, MCHC 32.6, RDW Std Deviation 59.3 H, RDW Coeff of Samreen 17.0 H, Plt Count 287, MPV 9.5, Immature Gran % (Auto) 1.900 H, Neut % (Auto) 62.1, Lymph % (Auto) 21.8, Elliott % (Auto) 10.7 H, Eos % (Auto) 2.7, Baso % (Auto) 0.8, Absolute Neuts (auto) 5.3, Absolute Lymphs (auto) 1.86, Nucleated RBC % 0 01/27/22 05:19: Sodium 134 L, Potassium 3.9, Chloride 102, Carbon Dioxide 25.0, Anion Gap 7, BUN 17, Creatinine 0.57, Estim Creat Clear Calc 35.11, Est GFR (MDRD) Af Amer 131, Est GFR (MDRD) Non-Af 108, BUN/Creatinine Ratio 29.9 H, Glucose 90, Calcium 8.6, Magnesium 2.2 01/27/22 05:19: Phosphorus 3.8 Physical Exam Const oriented x3 and no apparent distress Resp normal respiratory effort GI GI Narrative: None distended, soft, minimally tender to palpation just along the midline laparotomy incision. Laparotomy incision overall well-healing with only some slight redness at the upper aspect adjacent her maria a (where ostomy appliance comes in close proximity), left upper quadrant colostomy with thin pasty output. Left lower quadrant drain site well-healed. Assessment & Plan Assessment/Plan (1) Perforation of sigmoid colon due to diverticulitis: PLAN: Patient is postoperative day 16 from Alfonso's procedure with drain placement. Patient making gradual improvements with both her oral intake as well as her mobility. Daughter was present today due to work schedule which I was briefed on yesterday. Neuro: Schedule one analgesic medication and leave a as needed as well Pulm/CV: Supplemental O2 weaned, intermittent tachycardia seems to be improved with review of patient's vitals FEN/GI: Labs within normal limits, regular diet with Ensure 01/18/2022 and is tolerating progressively more oral intake, will like to discontinue laparotomy maria a next week Heme/ID: Vancomycin ordered for MRSA?positive sputum cultures on 01/14/2022, Cipro Flagyl discontinued 01/18/2022. Endo: Steroid taper per medicine Proph: SCDs, mobilize as much as tolerated, Xarelto Dispo: Continue TCU stay
[2022-01-27] MEDS: Cholecalciferol (VIT D3) 25 MCG TABLET (1,000 UNITS) 50 MCG PO (08:58)
[2022-01-27 08:59] VITALS: BP 142/60; PULSE 99
[2022-01-27] MEDS: Hydroxychloroquine 200 MG Tablet PO (08:59)
[2022-01-27] MEDS: Metoprolol(XL)Succ 50 MG Tablet PO ×2 (08:59→21:33)
[2022-01-27] MEDS: Furosemide 40 MG Tablet PO (08:59)
[2022-01-27] MEDS: Hydrocortisone 10 MG Tablet PO (08:59)
[2022-01-27] MEDS: Budesonide 3 MG CAPSULE.EC PO (08:59)
[2022-01-27] MEDS: POTASSIUM CHLORIDE 10 MEQ CAPSULE.ER 20 MEQ PO ×2 (09:00→18:50)
[2022-01-27] MEDS: BRIMONIDINE 0.15% 5 ML Bottle 1 DRP EACH EYE ×2 (09:01→21:30)
[2022-01-27] MEDS: Timolol 0.5% 5ML OPTH.BTL 1 DRP EACH EYE (09:47)
--- NOTE | 2022-01-27 11:55 | CASEMGMT ---
Social Work BIMS and PHQ-9 completed for MDS assessment. Roseline España, PRODUCT OWNER FUNCTIONAL TESTER
--- NOTE | 2022-01-27 14:51 | NURSING ---
Called and Updated Family regarding Labs, Swelling and that Dr. May was in to see pt today and no new orders at this time.
[2022-01-27 16:00] VITALS: BP 132/75; PULSE 70; RESP 24; TEMP 36.9; O2SAT 90
[2022-01-27] MEDS: Rivaroxaban 10 MG Tablet PO (17:42)
[2022-01-27] MEDS: OPTH EACH EYE (21:30)
[2022-01-27] MEDS: BIMATOPROST 0.01% EACH EYE (21:30)
[2022-01-27 21:33] VITALS: BP 134/56; PULSE 95
[2022-01-27] MEDS: 0.9% Saline Lock 10 ML Syringe IV (21:38)
[2022-01-28] MEDS: Glycerin/Hypromellose/PEG400 15 ml Bottle 1 DRP OPHTHALMIC ×4 (04:58→21:45)
[2022-01-28] MEDS: Levothyroxine 75 MCG Tablet PO (04:58)
[2022-01-28 08:51] VITALS: BP 155/69; PULSE 94
[2022-01-28] MEDS: Metoprolol(XL)Succ 50 MG Tablet PO ×2 (08:51→21:46)
[2022-01-28] MEDS: Hydrocortisone 10 MG Tablet PO (08:52)
[2022-01-28] MEDS: Hydroxychloroquine 200 MG Tablet PO (08:52)
[2022-01-28] MEDS: Budesonide 3 MG CAPSULE.EC PO (08:52)
[2022-01-28] MEDS: Furosemide 40 MG Tablet PO (08:52)
[2022-01-28] MEDS: Cholecalciferol (VIT D3) 25 MCG TABLET (1,000 UNITS) 50 MCG PO (08:52)
[2022-01-28] MEDS: POTASSIUM CHLORIDE 10 MEQ CAPSULE.ER 20 MEQ PO ×2 (08:53→17:01)
[2022-01-28] MEDS: Timolol 0.5% 5ML OPTH.BTL 1 DRP EACH EYE (08:53)
[2022-01-28] MEDS: BRIMONIDINE 0.15% 5 ML Bottle 1 DRP EACH EYE ×2 (08:54→21:44)
[2022-01-28 15:32] VITALS: BP 155/69; PULSE 94; RESP 20; TEMP 36.8; O2SAT 96
[2022-01-28] MEDS: Rivaroxaban 10 MG Tablet PO (17:02)
--- NOTE | 2022-01-28 21:09 | PCA ---
Addendum entered by Shantanu Zabala 01/28/22 21:11: Disregard previous note as it was charted for the wrong patient Original Note: Patient did not wish to change clothes tonight for bed and did not want hs care tonight. Patient wanted to wait until the morning to wash.
[2022-01-28 21:46] VITALS: BP 130/70; PULSE 90
[2022-01-28] MEDS: OPTH EACH EYE (21:46)
[2022-01-28] MEDS: BIMATOPROST 0.01% EACH EYE (21:46)
[2022-01-28 22:58] VITALS: PULSE 99; RESP 16; O2SAT 96
[2022-01-29] MEDS: Glycerin/Hypromellose/PEG400 15 ml Bottle 1 DRP OPHTHALMIC ×4 (04:55→22:04)
[2022-01-29] MEDS: Levothyroxine 75 MCG Tablet PO (04:55)
[2022-01-29 06:03] LABS: Absolute Lymphocyte Count 2.15 X10^3/uL (0.83-4.51); Basophil# 0.05 X10^3/uL; Basophil% 0.6 % (0-1); Eosinophil# 0.22 X10^3/uL; Eosinophils% 2.7 % (0-5); Hematocrit 34.7 % (37-47); Hemoglobin 11.1 g/dL (12.0-15.0); Lymphocyte # 2.15 X10^3/ul (0.83-4.51); Lymphocyte % 25.9 % (19-41); Mean Corpuscular Hgb 30.9 pg (27.0-32.0); Mean Corpuscular Volume 96.7 fL (81-99); Mean Platelet Vol. 9.8 fl (6.2-12.0); Monocyte# 0.73 X10^3/uL; Monocyte% 8.8 % (0-10); NRBC Flagged by Analyzer 0 % (0-5); Neutrophil # 4.98 X10^3/uL (2.7-7.7); Platelet Count 288 K/mm3 (150-450); RBC Distribution Width SD 59.8 fl (35.1-43.9); Red Blood Count 3.59 M/mm3 (4.2-5.4); White Blood Count 8.3 K/mm3 (4.4-11.0)
[2022-01-29 06:30] LABS: Anion Gap 8 (5-15); BUN 23 mg/dL (7-18); BUN/Creat Ratio 35.1 RATIO (10-20); Calcium,Total 8.9 mg/dL (8.5-10.1); Chloride 100 mmol/L (98-107); Creatinine, Serum 0.66 mg/dL (0.55-1.02); EST Glomerular Filtration Rate 92 mL/min (>60); Est Glom Filt Rate - Afr Amer 111 mL/min (>60); Estimated Creatinine Clearance 35.11 ml/min; Glucose 96 mg/dL (74-106); Potassium 4.1 mmol/L (3.5-5.1); Sodium Level 133 mmol/L (136-145)
[2022-01-29] MEDS: BRIMONIDINE 0.15% 5 ML Bottle 1 DRP EACH EYE ×2 (09:15→22:04)
[2022-01-29] MEDS: Budesonide 3 MG CAPSULE.EC PO (09:16)
[2022-01-29] MEDS: Furosemide 40 MG Tablet PO (09:16)
[2022-01-29] MEDS: Hydrocortisone 10 MG Tablet PO (09:16)
[2022-01-29] MEDS: Hydroxychloroquine 200 MG Tablet PO (09:16)
[2022-01-29] MEDS: Cholecalciferol (VIT D3) 25 MCG TABLET (1,000 UNITS) 50 MCG PO (09:16)
[2022-01-29 09:19] VITALS: BP 100/50; PULSE 52
[2022-01-29] MEDS: POTASSIUM CHLORIDE 10 MEQ CAPSULE.ER 20 MEQ PO ×2 (09:19→18:24)
[2022-01-29] MEDS: Timolol 0.5% 5ML OPTH.BTL 1 DRP EACH EYE (09:19)
[2022-01-29 10:00] VITALS: PULSE 52; RESP 14; O2SAT 94
[2022-01-29] MEDS: Tuberculin,Purif.prot.deriv. 50 TU/ML Vial 0.1 ML ID (10:30)
[2022-01-29] MEDS: 0.9% Saline Lock 10 ML Syringe IV (12:27)
[2022-01-29 15:24] VITALS: BP 109/56; PULSE 52; RESP 14; TEMP 36.7; O2SAT 94
[2022-01-29] MEDS: Rivaroxaban 10 MG Tablet PO (18:22)
[2022-01-29] MEDS: BIMATOPROST 0.01% EACH EYE (22:04)
[2022-01-29] MEDS: OPTH EACH EYE (22:04)
[2022-01-29 22:18] VITALS: BP 132/59; PULSE 98
[2022-01-29] MEDS: Metoprolol(XL)Succ 50 MG Tablet PO (22:18)
[2022-01-30] MEDS: Glycerin/Hypromellose/PEG400 15 ml Bottle 1 DRP OPHTHALMIC ×4 (04:46→21:20)
[2022-01-30] MEDS: Levothyroxine 75 MCG Tablet PO (04:52)
--- NOTE | 2022-01-30 08:09 | PCM.PN.SRG ---
Subjective Subjective Patient seen and examined during AM rounds. She is found resting in bed, as she prepares to get up for breakfast this morning. She states she overall had a good weekend. She continues to increase her oral intake incrementally, but states that her appetite is still not strong. Objective Data Objective Data Vital Signs: Vital Signs Temp Pulse Resp BP Pulse Ox O2 Del Method 98.1 F 98 14 132/59 H 94 Room Air 01/29/22 15:24 01/29/22 22:18 01/29/22 15:24 01/29/22 22:18 01/29/22 15:24 01/29/22 15:24 Oxygen Delivery Method Room Air Weight: 111 lb 1.808 oz Body Mass Index (BMI) 23.3 Intake & Output: Intake and Output for Last 24 Hours 01/28/22 01/29/22 01/30/22 23:59 23:59 23:59 Intake Total 600 / 600 480 / 480 Output Total 400 / 400 200 / 200 Balance 200 / 200 280 / 280 Lab / Micro Data Result Diagrams: 01/29/22 04:54 01/29/22 04:54 Micro: Microbiology 01/28/22 Unknown Interface Orders SARS-CoV-2 Antigen (Rapid) - Final Physical Exam Const oriented x3 and no apparent distress Resp normal respiratory effort GI GI Narrative: None distended, soft, minimally tender to palpation just along the midline laparotomy incision. Laparotomy incision overall well-healing with only some slight redness at the upper aspect adjacent her maria a (where ostomy appliance comes in close proximity), there is also some scabbing at the level of the umbilicus, left upper quadrant colostomy with thin pasty output. Left lower quadrant drain site well-healed. Assessment & Plan Assessment/Plan (1) Perforation of sigmoid colon due to diverticulitis: PLAN: Patient is status post Alfonso's procedure with drain placement 01/11/2022. Patient making gradual improvements with both her oral intake as well as her mobility. Patient states overall she had a good weekend and continues to try to push herself regarding her oral intake. She states the limiting factor is her still poor appetite. Laparotomy maria a were removed at bedside today and wound is overall well-appearing. There is some slight scabbing at the umbilicus. I have recommended patient that she get another shower today and allow a moist washcloth to reside at this location to try and soften the scab so that it can be easily loosened from her wound. Neuro: Schedule one analgesic medication and leave a as needed as well Pulm/CV: Supplemental O2 weaned, intermittent tachycardia seems to be improved with review of patient's vitals FEN/GI: Labs within normal limits over the weekend, regular diet with Ensure 01/18/2022 and is tolerating progressively more oral intake, laparotomy maria a discontinued 01/30/2022 Heme/ID: Vancomycin for MRSA?positive sputum cultures completed, Cipro Flagyl discontinued 01/18/2022. Endo: Steroid taper per medicine Proph: SCDs, mobilize as much as tolerated, Xarelto Dispo: Continue TCU stay
[2022-01-30] MEDS: Timolol 0.5% 5ML OPTH.BTL 1 DRP EACH EYE (08:29)
[2022-01-30] MEDS: POTASSIUM CHLORIDE 10 MEQ CAPSULE.ER 20 MEQ PO ×2 (08:29→17:55)
[2022-01-30 08:30] VITALS: BP 148/75; PULSE 50
[2022-01-30] MEDS: Metoprolol(XL)Succ 50 MG Tablet PO ×2 (08:30→21:26)
[2022-01-30] MEDS: Cholecalciferol (VIT D3) 25 MCG TABLET (1,000 UNITS) 50 MCG PO (08:30)
[2022-01-30] MEDS: Budesonide 3 MG CAPSULE.EC PO (08:30)
[2022-01-30] MEDS: Hydrocortisone 10 MG Tablet PO (08:30)
[2022-01-30] MEDS: Hydroxychloroquine 200 MG Tablet PO (08:30)
[2022-01-30] MEDS: Furosemide 40 MG Tablet PO (08:30)
[2022-01-30] MEDS: BRIMONIDINE 0.15% 5 ML Bottle 1 DRP EACH EYE ×2 (08:34→21:20)
[2022-01-30] MEDS: 0.9% Saline Lock 10 ML Syringe IV (08:35)
--- NOTE | 2022-01-30 10:33 | NURSING ---
mepilex changed to coccyx, improvement noted. pt buttocks washed with soap and water, dried thoroughly.
--- NOTE | 2022-01-30 14:30 | WOUNDNOTE ---
Pt resting in bed. daughter not coming in today. appliance remains intact so will plan to change the appliance with the daughter again tomorrow. there are no signs of leak noted. small amount of pasty brown stool noted in the appliance. patient denies further needs at this time. will continue to monitor.
[2022-01-30 14:31] VITALS: BP 113/58; PULSE 51; RESP 16; TEMP 36.3; O2SAT 96
[2022-01-30] MEDS: Rivaroxaban 10 MG Tablet PO (17:55)
--- NOTE | 2022-01-30 18:33 | NURSING ---
social studies teacher feels pt needs appetite stimulant, dr patel notified, new order remeron. pt and daughter updated.
[2022-01-30] MEDS: BIMATOPROST 0.01% EACH EYE (21:19)
[2022-01-30] MEDS: OPTH EACH EYE (21:19)
[2022-01-30 21:26] VITALS: BP 154/70; PULSE 63
[2022-01-30 22:00] VITALS: PULSE 100; RESP 16; O2SAT 95
[2022-01-31] MEDS: Glycerin/Hypromellose/PEG400 15 ml Bottle 1 DRP OPHTHALMIC ×4 (05:41→21:02)
[2022-01-31] MEDS: Levothyroxine 75 MCG Tablet PO (05:41)
[2022-01-31] MEDS: Timolol 0.5% 5ML OPTH.BTL 1 DRP EACH EYE (08:49)
[2022-01-31] MEDS: BRIMONIDINE 0.15% 5 ML Bottle 1 DRP EACH EYE ×2 (08:50→21:08)
[2022-01-31] MEDS: Furosemide 40 MG Tablet PO (08:51)
[2022-01-31] MEDS: Hydroxychloroquine 200 MG Tablet PO (08:52)
[2022-01-31] MEDS: Hydrocortisone 10 MG Tablet PO (08:52)
[2022-01-31] MEDS: Budesonide 3 MG CAPSULE.EC PO (08:52)
[2022-01-31 08:53] VITALS: PULSE 80
[2022-01-31] MEDS: Cholecalciferol (VIT D3) 25 MCG TABLET (1,000 UNITS) 50 MCG PO (08:53)
[2022-01-31] MEDS: Metoprolol(XL)Succ 50 MG Tablet PO ×2 (08:53→21:10)
[2022-01-31] MEDS: POTASSIUM CHLORIDE 10 MEQ CAPSULE.ER 20 MEQ PO ×2 (08:58→16:24)
--- NOTE | 2022-01-31 13:44 | WOUNDNOTE ---
Pt sitting up in chair eating lunch. planned on watching the daughter change the ostomy appliance today. Pt has therapy at 1415 and patient is wanting to shower. will plan to come back around 1500 today for the ostomy care once patient is back into bed and therapy is completed for the day. Daughter a little apprehensive but states she will give it a try today. Encouraged the daughter the more hands on, the more comfortable she will be before patient is discharged home. Daughter agreed.
--- NOTE | 2022-01-31 15:44 | WOUNDNOTE ---
Daughter Barbara changed the ostomy appliance with minimal instruction by this nurse. Daughter was able to measure the stoma size, cut the opening, remove the backing, apply the paste, and place the flange around the stoma. Daughter snapped the pouch in place. reviewed how to empty the appliance as well. Did discuss possibly using disposable pouches since patient does have some dexterity issues. will show patient and daughter what the disposable pouches look like and discuss if that is what they would like to try. pt states the pouch is typically only emptied twice a day. daughter states she feels much better after changing it. both very appreciative. will continue to educate prior to patient's discharge home.
[2022-01-31 16:00] VITALS: BP 130/57; PULSE 63; RESP 16; TEMP 36.5; O2SAT 96
[2022-01-31] MEDS: Rivaroxaban 10 MG Tablet PO (16:23)
[2022-01-31] MEDS: OPTH EACH EYE (21:02)
[2022-01-31] MEDS: BIMATOPROST 0.01% EACH EYE (21:02)
[2022-01-31 21:10] VITALS: BP 144/66; PULSE 98
[2022-01-31] MEDS: 0.9% Saline Lock 10 ML Syringe IV (21:18)
--- NOTE | 2022-01-31 23:04 | NURSING ---
Pt.refused Remeron as ordered this HS, daughter at chairside. Pt. states, I haven't taken that yet because my appetite is getting better, I don't think I need it. Educated on medication effects, patient and daughter decline. Written communication left for Dr. May regarding patient refusal.
[2022-02-01] MEDS: Levothyroxine 75 MCG Tablet PO (06:30)
[2022-02-01] MEDS: Glycerin/Hypromellose/PEG400 15 ml Bottle 1 DRP OPHTHALMIC ×4 (06:30→22:10)
[2022-02-01 08:26] VITALS: BP 134/67; PULSE 93
[2022-02-01 08:30] VITALS: BP 134/67; PULSE 93
[2022-02-01] MEDS: Hydroxychloroquine 200 MG Tablet PO (08:30)
[2022-02-01] MEDS: Hydrocortisone 10 MG Tablet PO (08:30)
[2022-02-01] MEDS: Cholecalciferol (VIT D3) 25 MCG TABLET (1,000 UNITS) 50 MCG PO (08:30)
[2022-02-01] MEDS: Budesonide 3 MG CAPSULE.EC PO (08:30)
[2022-02-01] MEDS: Metoprolol(XL)Succ 50 MG Tablet PO ×2 (08:30→22:10)
[2022-02-01] MEDS: Furosemide 40 MG Tablet PO (08:30)
[2022-02-01] MEDS: BRIMONIDINE 0.15% 5 ML Bottle 1 DRP EACH EYE ×2 (08:31→22:11)
[2022-02-01] MEDS: Timolol 0.5% 5ML OPTH.BTL 1 DRP EACH EYE (08:31)
[2022-02-01] MEDS: POTASSIUM CHLORIDE 10 MEQ CAPSULE.ER 20 MEQ PO ×2 (08:32→16:57)
[2022-02-01] MEDS: Alteplase 2 MG/2 ML Vial IV (09:12)
--- NOTE | 2022-02-01 09:36 | NURSING ---
Addendum entered by Brittany Rutherford 02/01/22 09:58: Let Cathflo sit in line for 30min removed 5ml of blood and flushed line with 10ml NS. Original Note: CathFlo Administered using single syringe method administered 2ml of cathflo.
[2022-02-01] MEDS: 0.9% Saline Lock 10 ML Syringe IV (09:57)
--- NOTE | 2022-02-01 11:03 | PCM.PN.SRG ---
Subjective Subjective Patient evaluated resting comfortably in bed. She notes slow progress of appetite. She continues to produce stool output. She notes minimal amount of soreness in the right lower quadrant. She voices a recommendation of an appetite stimulant, which she has declined at this time. Patient's daughter was also in the room and notes slow progress is being made with therapy. They are working on potential arrangements for when discharge occurs. Patient's daughter changed the appliance herself yesterday and would like her sister to learn. Patient notes her needs 24 hour care and they currently have someone coming to the house. Daughter and patient are unsure if the company is able assist with her care as well. She notes she was unable to get a shower on sunday. They are hopeful that she will receive a shower today. Objective Data Objective Data Vital Signs: Vital Signs Temp Pulse Resp BP Pulse Ox O2 Del Method 97.7 F L 93 16 134/67 H 96 Room Air 01/31/22 16:00 02/01/22 08:30 01/31/22 16:00 02/01/22 08:30 01/31/22 16:00 01/31/22 16:00 Oxygen Delivery Method Room Air Weight: 111 lb 1.808 oz Body Mass Index (BMI) 23.3 Intake & Output: Intake and Output for Last 24 Hours 01/30/22 01/31/22 02/01/22 23:59 23:59 23:59 Intake Total 720 / 720 749.75 / 749.75 Output Total 100 / 100 Balance 620 / 620 749.75 / 749.75 Lab / Micro Data Result Diagrams: 01/29/22 04:54 01/29/22 04:54 Micro: Microbiology 01/31/22 12:55 Nasal Secretion SARS-CoV-2 Antigen (Rapid) - Final 01/28/22 Unknown Interface Orders SARS-CoV-2 Antigen (Rapid) - Final Physical Exam GI GI Narrative: Abdomen- midline incision c/d/i. There is a small amount of scabbing at the umbilicus. Ostomy appliance intact. Brown stool output noted. Abdomen is soft. Slightly amount of tenderness in the left lower quadrant. Good bowel sounds Assessment & Plan Assessment/Plan (1) Acute diverticulitis: PLAN: Patient progressing from a surgery standpoint Continue to increasing appetite as tolerated Recommend showering today to remove the umbilical scab by placing a washcloth over top of the scab and allowing it to sit and soften. Continue working with therapy on strength We will continue to monitor every other day during the week Dr. May also evaluated this patient in conjunction with myself and is in agreement with the plan Charges/Coding Visit Charges Inpatient E&M: 11808 Subs Hosp L1 (post-op; no charge)
--- NOTE | 2022-02-01 12:00 | NURSING ---
PT DAUGHTER REPORTS PT HAD EMESIS AFTER BREAKFAST THIS AM. STATES PT HAS TAKEN MOST AM MEDS. PT DENIES NAUSEA NOW. DAUGHTER STATES MEDS NEED SPACED OUT MORE-SHE WILL DO THAT. WILL CONTINUE TO MONITOR.
--- NOTE | 2022-02-01 13:40 | WOUNDNOTE ---
colostomy appliance emptied with daughter. patient and daughter both feel that a disposable pouch may be better than a drainable pouch. will need to have patient practice snapping a new pouch in place.
--- NOTE | 2022-02-01 14:13 | NURSING ---
PT AND FAMILY NOTIFIED OF EMPLOYEE TESTING POSITIVE FOR COVID.
--- NOTE | 2022-02-01 14:24 | CASEMGMT ---
Social Work Spoke with dtr about DC plans with goal DC date 02/08. Dtr is concerned pt will not be ready to DC home by then and would like pt to remain longer. Inquired about pt being able to pay privately for copays. Dtr agreed. Explained that will be billed directly to pt. Dtr expressed understanding. SW to continue to follow. Roseline España ,COMMUNITY DIRECTOR X [employer]AY DEVELOPING MACHINE OPERATOR
[2022-02-01 15:42] VITALS: BP 157/68; PULSE 76; RESP 15; TEMP 36.3; O2SAT 97
[2022-02-01] MEDS: Rivaroxaban 10 MG Tablet PO (16:57)
[2022-02-01 22:00] VITALS: O2SAT 97
[2022-02-01 22:10] VITALS: BP 126/78; PULSE 100
[2022-02-01] MEDS: BIMATOPROST 0.01% EACH EYE (22:10)
[2022-02-01] MEDS: OPTH EACH EYE (22:10)
[2022-02-02] MEDS: Levothyroxine 75 MCG Tablet PO (05:46)
[2022-02-02] MEDS: Glycerin/Hypromellose/PEG400 15 ml Bottle 1 DRP OPHTHALMIC ×3 (05:46→17:13)
[2022-02-02] MEDS: Budesonide 3 MG CAPSULE.EC PO (08:48)
[2022-02-02] MEDS: Hydroxychloroquine 200 MG Tablet PO (08:48)
[2022-02-02] MEDS: Hydrocortisone 10 MG Tablet PO (08:48)
[2022-02-02] MEDS: Furosemide 40 MG Tablet PO (08:48)
[2022-02-02 08:49] VITALS: BP 136/50; PULSE 99
[2022-02-02] MEDS: Cholecalciferol (VIT D3) 25 MCG TABLET (1,000 UNITS) 50 MCG PO (08:49)
[2022-02-02] MEDS: Metoprolol(XL)Succ 50 MG Tablet PO ×2 (08:49→21:19)
[2022-02-02] MEDS: POTASSIUM CHLORIDE 10 MEQ CAPSULE.ER 20 MEQ PO ×2 (08:49→17:13)
[2022-02-02] MEDS: BRIMONIDINE 0.15% 5 ML Bottle 1 DRP EACH EYE ×2 (08:51→21:26)
[2022-02-02] MEDS: Timolol 0.5% 5ML OPTH.BTL 1 DRP EACH EYE (08:51)
[2022-02-02 09:21] VITALS: PULSE 99; RESP 16; O2SAT 95
[2022-02-02] MEDS: 0.9% Saline Lock 10 ML Syringe IV ×2 (09:49→21:19)
--- NOTE | 2022-02-02 13:36 | MDS.RN ---
Information for the mds was obtained from review of the clinical record, interview of resident, staff, and direct observation of resident's care.
[2022-02-02 15:52] VITALS: BP 136/50; PULSE 99; RESP 16; TEMP 36.6; O2SAT 95
[2022-02-02] MEDS: Rivaroxaban 10 MG Tablet PO (17:13)
[2022-02-02] MEDS: OPTH EACH EYE (21:15)
[2022-02-02] MEDS: BIMATOPROST 0.01% EACH EYE (21:15)
[2022-02-02 21:19] VITALS: BP 138/71; PULSE 97
[2022-02-03] MEDS: Levothyroxine 75 MCG Tablet PO (06:32)
[2022-02-03] MEDS: Glycerin/Hypromellose/PEG400 15 ml Bottle 1 DRP OPHTHALMIC ×3 (06:32→16:00)
[2022-02-03] MEDS: Hydrocortisone 10 MG Tablet PO (08:57)
[2022-02-03] MEDS: Budesonide 3 MG CAPSULE.EC PO (08:57)
[2022-02-03 08:58] VITALS: PULSE 89
[2022-02-03] MEDS: Metoprolol(XL)Succ 50 MG Tablet PO ×2 (08:58→21:49)
[2022-02-03] MEDS: Hydroxychloroquine 200 MG Tablet PO (08:58)
[2022-02-03] MEDS: Furosemide 40 MG Tablet PO (08:58)
[2022-02-03] MEDS: Cholecalciferol (VIT D3) 25 MCG TABLET (1,000 UNITS) 50 MCG PO (08:59)
[2022-02-03] MEDS: POTASSIUM CHLORIDE 10 MEQ CAPSULE.ER 20 MEQ PO ×2 (08:59→16:00)
[2022-02-03] MEDS: BRIMONIDINE 0.15% 5 ML Bottle 1 DRP EACH EYE ×2 (09:00→21:49)
[2022-02-03] MEDS: Timolol 0.5% 5ML OPTH.BTL 1 DRP EACH EYE (09:01)
[2022-02-03] MEDS: MENTHOL 226.8 GM JAR 1 APPLIC TOPICAL (09:09)
[2022-02-03 15:23] VITALS: BP 112/41; PULSE 57; RESP 18; TEMP 36.4; O2SAT 97
[2022-02-03] MEDS: Rivaroxaban 10 MG Tablet PO (16:00)
[2022-02-03] MEDS: 0.9% Saline Lock 10 ML Syringe IV (21:39)
[2022-02-03] MEDS: BIMATOPROST 0.01% EACH EYE (21:40)
[2022-02-03] MEDS: OPTH EACH EYE (21:40)
[2022-02-03 21:49] VITALS: BP 149/60; PULSE 97
[2022-02-03 22:38] VITALS: PULSE 98; RESP 18; O2SAT 98
--- NOTE | 2022-02-04 06:23 | NURSING ---
Daughter/pt. vendor representatives ([facility]) requesting Dr. Wright to re-eval current Lasix dose, stating patient edema has significantly improved since acute stay/post-surgical. Daughter also states patient reports early satiety, acknowledges patient refusal of appetite stimulant, and states patient also complains of occasional hot-flashes. Daughter states she would like for Dr. Wright to eval current medications to see if possible cause. Dtr. notified written communication to be left for regarding daughters questions, daughter agreeable and expresses thanks.
[2022-02-04] MEDS: Glycerin/Hypromellose/PEG400 15 ml Bottle 1 DRP OPHTHALMIC ×3 (06:31→17:33)
[2022-02-04] MEDS: Levothyroxine 75 MCG Tablet PO (06:32)
[2022-02-04] MEDS: POTASSIUM CHLORIDE 10 MEQ CAPSULE.ER 20 MEQ PO ×2 (08:08→17:34)
[2022-02-04 08:09] VITALS: PULSE 90
[2022-02-04] MEDS: Metoprolol(XL)Succ 50 MG Tablet PO (08:09)
[2022-02-04] MEDS: Hydroxychloroquine 200 MG Tablet PO (08:10)
[2022-02-04] MEDS: Cholecalciferol (VIT D3) 25 MCG TABLET (1,000 UNITS) 50 MCG PO (08:10)
[2022-02-04] MEDS: Budesonide 3 MG CAPSULE.EC PO (08:10)
[2022-02-04] MEDS: BRIMONIDINE 0.15% 5 ML Bottle 1 DRP EACH EYE ×2 (08:10→22:33)
[2022-02-04] MEDS: Furosemide 40 MG Tablet PO (08:10)
[2022-02-04] MEDS: Hydrocortisone 10 MG Tablet PO (08:10)
[2022-02-04] MEDS: Timolol 0.5% 5ML OPTH.BTL 1 DRP EACH EYE (08:11)
[2022-02-04] MEDS: 0.9% Saline Lock 10 ML Syringe IV ×2 (11:13→22:46)
--- NOTE | 2022-02-04 15:04 | PN_ITS ---
Subjective Subjective Asked to see the patient because her dtr would like the Lasix discontinued. She was placed on Lasix in the hospital for edema. she has MR and LAE and pulmonary HTN. Had RF as a child. She denies SOB except with heavy exertion. Denies orthopnea and also denies palpitations and CP. She is not lightheaded. She tells me that she has no appetite and her intake is poor. Dr. May discussed Remeron with her to in crease the appetite but, she refused. She has not lost her sense of taste. VSS Maintaining appropriate oxygen saturation on room air. Oral intake is poor. I reviewed the most recent labs which were on 01/29/2022 and at that time her sodium was low at 133 and the BUN was 23 with a creatinine of 0.66. The white blood cell count was normal and the hemoglobin was 11.1. Her last chest x-ray was 01/15/2022 and it showed small bilateral pleural effusions with increased pulmonary vascular congestion. Echocardiogram within the past month shows a normal ejection fraction of 65% with no regional wall motion abnormalities. The right Ian regular systolic pressure was estimated at 48 which is consistent with moderate pulmonary hypertension. There is mild diffuse aortic valve thickening with mild to moderate AI. There is mild to moderate mitral valve stenosis and 3+ eccentric mitral valve insufficiency. Objective Data Objective Data Vital Signs: Vital Signs Temp Pulse Resp BP Pulse Ox O2 Del Method 97.5 F L 90 18 149/60 H 98 Room Air 02/03/22 15:23 02/04/22 08:09 02/03/22 22:38 02/03/22 21:49 02/03/22 22:38 02/04/22 09:49 Oxygen Delivery Method Room Air Weight: 111 lb 1.808 oz Body Mass Index (BMI) 23.3 Intake & Output: Intake and Output for Last 24 Hours 02/02/22 02/03/22 02/04/22 23:59 23:59 23:59 Intake Total 780 / 780 510 / 510 480 / 480 Output Total 100 / 100 Balance 680 / 680 510 / 510 480 / 480 Lab / Micro Data Result Diagrams: 01/29/22 04:54 01/29/22 04:54 Micro: Microbiology 02/02/22 09:44 Nasal Secretion SARS-CoV-2 Antigen (Rapid) - Final 01/31/22 12:55 Nasal Secretion SARS-CoV-2 Antigen (Rapid) - Final 01/28/22 Unknown Interface Orders SARS-CoV-2 Antigen (Rapid) - Final Physical Exam Const alert and oriented x3 Constitutional Narrative: Looks to be in no distress. General Appearance: cooperative Resp Resp Narrative: Lungs are clear to auscultation throughout with good air exchange. She is not tachypneic and has no conversational dyspnea. Cardio regular rate, regular rhythm, no rub and no gallops Cardio Narrative: She has a systolic MM at the 2nd RICS and she has a systolic MM in the left axilla. I do not hear a diastolic MM at the mitral listening post. GI normal to inspection, nondistended, normoactive bowel sounds, soft to palpation and non-tender Extremity Extremity Narrative: No peripheral edema Assessment & Plan Assessment/Plan (1) Mitral stenosis: (2) Severe mitral regurgitation: (3) Aortic insufficiency: (4) Pulmonary arterial hypertension: PLAN: Plan She had CHF while in the hospital. She has pulmonary HTN, MV disease and aortic insufficiency. I suspect she needs some diuretic on a chronic basis. She has no sx of dehydration. Will recheck lab in the AM. Change the Lasix to Q 48 hours. Will discuss the valvular heart disease and the pulmonary HTN with her dtr. She continues to refuse an appetite stimulant. Charges/Coding Visit Charges Inpatient E&M: 39128 SNF Subs L2
[2022-02-04 15:16] VITALS: BP 107/65; PULSE 64; RESP 15; TEMP 36.6; O2SAT 91
[2022-02-04] MEDS: Rivaroxaban 10 MG Tablet PO (17:34)
[2022-02-04 22:31] VITALS: BP 143/55; PULSE 51
[2022-02-04] MEDS: OPTH EACH EYE (22:34)
[2022-02-04] MEDS: BIMATOPROST 0.01% EACH EYE (22:34)
[2022-02-05] MEDS: Levothyroxine 75 MCG Tablet PO (06:42)
[2022-02-05] MEDS: Glycerin/Hypromellose/PEG400 15 ml Bottle 1 DRP OPHTHALMIC ×3 (06:42→18:16)
[2022-02-05 06:50] LABS: Absolute Lymphocyte Count 2.68 X10^3/uL (0.83-4.51); Absolute Neutrophil Count 5.3 X10^3/uL (2.0-7.7); Basophil# 0.05 X10^3/uL; Basophil% 0.5 % (0-1); Eosinophil# 0.12 X10^3/uL; Eosinophils% 1.3 % (0-5); Hematocrit 36.8 % (37-47); Hemoglobin 12.1 g/dL (12.0-15.0); Lymphocyte # 2.68 X10^3/ul (0.83-4.51); Mean Corp Hgb Conc 32.9 g/dL (32-36); Mean Corpuscular Hgb 31.8 pg (27.0-32.0); Mean Corpuscular Volume 96.8 fL (81-99); Mean Platelet Vol. 9.8 fl (6.2-12.0); Monocyte% 12.5 % (0-10); NRBC Flagged by Analyzer 0 % (0-5); Neutrophil # 5.33 X10^3/uL (2.7-7.7); Neutrophil % 55.7 % (47-70); Platelet Count 181 K/mm3 (150-450); RBC Distribution Width CV 16.9 % (11.6-14.6); RBC Distribution Width SD 60.3 fl (35.1-43.9); White Blood Count 9.6 K/mm3 (4.4-11.0)
[2022-02-05 07:03] LABS: Anion Gap 9 (5-15); BUN 26 mg/dL (7-18); BUN/Creat Ratio 34.9 RATIO (10-20); Chloride 100 mmol/L (98-107); Creatinine, Serum 0.74 mg/dL (0.55-1.02); EST Glomerular Filtration Rate 79 mL/min (>60); Est Glom Filt Rate - Afr Amer 96 mL/min (>60); Estimated Creatinine Clearance 35.11 ml/min; Glucose 99 mg/dL (74-106); Potassium 4.3 mmol/L (3.5-5.1); Sodium Level 134 mmol/L (136-145)
[2022-02-05] MEDS: Timolol 0.5% 5ML OPTH.BTL 1 DRP EACH EYE (08:56)
[2022-02-05] MEDS: POTASSIUM CHLORIDE 10 MEQ CAPSULE.ER 20 MEQ PO ×2 (08:56→18:16)
[2022-02-05 08:58] VITALS: BP 147/63; PULSE 104
[2022-02-05] MEDS: Metoprolol(XL)Succ 50 MG Tablet PO ×2 (08:58→21:39)
[2022-02-05] MEDS: BRIMONIDINE 0.15% 5 ML Bottle 1 DRP EACH EYE ×2 (08:58→21:41)
[2022-02-05] MEDS: Hydrocortisone 10 MG Tablet PO (08:58)
[2022-02-05] MEDS: Hydroxychloroquine 200 MG Tablet PO (08:58)
[2022-02-05] MEDS: Budesonide 3 MG CAPSULE.EC PO (08:58)
[2022-02-05] MEDS: Cholecalciferol (VIT D3) 25 MCG TABLET (1,000 UNITS) 50 MCG PO (08:58)
[2022-02-05] MEDS: 0.9% Saline Lock 10 ML Syringe IV ×2 (08:59→21:33)
[2022-02-05 16:00] VITALS: BP 120/52; PULSE 80; RESP 15; TEMP 36.1; O2SAT 96
[2022-02-05] MEDS: Rivaroxaban 10 MG Tablet PO (18:16)
[2022-02-05] MEDS: OPTH EACH EYE (21:31)
[2022-02-05] MEDS: BIMATOPROST 0.01% EACH EYE (21:31)
[2022-02-05 21:39] VITALS: BP 126/62; PULSE 97
[2022-02-05 22:00] VITALS: PULSE 96; RESP 16; O2SAT 96
[2022-02-06] MEDS: Glycerin/Hypromellose/PEG400 15 ml Bottle 1 DRP OPHTHALMIC ×3 (05:57→17:51)
[2022-02-06] MEDS: Furosemide 40 MG Tablet PO (05:58)
[2022-02-06] MEDS: Levothyroxine 75 MCG Tablet PO (05:58)
--- NOTE | 2022-02-06 06:04 | NURSING ---
Declines ensure at this time, states I will take it at breakfast, ensure not given a this time per pt. request
[2022-02-06] MEDS: Budesonide 3 MG CAPSULE.EC PO (07:56)
[2022-02-06] MEDS: Hydroxychloroquine 200 MG Tablet PO (07:57)
[2022-02-06] MEDS: Hydrocortisone 10 MG Tablet PO (07:57)
[2022-02-06] MEDS: Timolol 0.5% 5ML OPTH.BTL 1 DRP EACH EYE (07:58)
[2022-02-06 07:59] VITALS: PULSE 68
[2022-02-06] MEDS: Metoprolol(XL)Succ 50 MG Tablet PO ×2 (07:59→21:31)
[2022-02-06] MEDS: POTASSIUM CHLORIDE 10 MEQ CAPSULE.ER 20 MEQ PO ×2 (08:02→17:51)
[2022-02-06] MEDS: Cholecalciferol (VIT D3) 25 MCG TABLET (1,000 UNITS) 50 MCG PO (08:03)
[2022-02-06] MEDS: BRIMONIDINE 0.15% 5 ML Bottle 1 DRP EACH EYE ×2 (09:14→21:30)
[2022-02-06 09:28] VITALS: PULSE 96; RESP 16; O2SAT 97
--- NOTE | 2022-02-06 10:17 | CASEMGMT ---
Addendum entered by Roseline España 02/06/22 11:46: Received return phone call from dtr. SW explained IDT's decision to issue DC 02/10. Explained appeal rights. Dtr does not feel pt is back to baseline and would like pt to remain in TCU for continued care. SW explained private duty care at home or SNF option, but that insurance will not cover those services. Dtr stated she will be in to visit pt this afternoon and will discuss with the family in the meantime. SW to f/u with dtr on decision to assist with DC planning. Original Note: Social Work Left message with dtrBarbara, to discuss DC plans. MARINA SaabW
--- NOTE | 2022-02-06 10:24 | PCM.PN.SRG ---
Subjective Subjective Patient seen and examined during AM rounds. She reports that she had no further abdominal pains over the weekend as reported in passing on Sunday. She has denies any nausea. Objective Data Objective Data Vital Signs: Vital Signs Temp Pulse Resp BP Pulse Ox O2 Del Method 96.9 F L 96 16 126/62 H 97 Room Air 02/05/22 16:00 02/06/22 09:28 02/06/22 09:28 02/05/22 21:39 02/06/22 09:28 02/06/22 09:28 Oxygen Delivery Method Room Air Weight: 111 lb 1.808 oz Body Mass Index (BMI) 23.3 Intake & Output: Intake and Output for Last 24 Hours 02/04/22 02/05/22 02/06/22 23:59 23:59 23:59 Intake Total 840 / 840 720 / 720 120 / 120 Output Total 100 / 100 Balance 840 / 840 620 / 620 120 / 120 Lab / Micro Data Result Diagrams: 02/05/22 06:40 02/05/22 06:40 Micro: Microbiology 02/02/22 09:44 Nasal Secretion SARS-CoV-2 Antigen (Rapid) - Final 01/31/22 12:55 Nasal Secretion SARS-CoV-2 Antigen (Rapid) - Final 01/28/22 Unknown Interface Orders SARS-CoV-2 Antigen (Rapid) - Final Physical Exam Const oriented x3 and no apparent distress Resp normal respiratory effort GI GI Narrative: Mildly distended, soft, patient remarks of bilateral tenderness with palpation but is unable to further characterize. Left upper quadrant colostomy with pasty output. Stoma not visible beneath stool. Assessment & Plan Assessment/Plan (1) Perforation of sigmoid colon due to diverticulitis: PLAN: Patient is status post Alfonso's procedure with drain placement 01/11/2022. There has been difficulty determine if patient has been making any further improvements with her oral intake or mobility since her daughter has not been present at bedside during the last 2 visits and patient states she is unaware of her disposition status. However, she states she is trying to push herself regarding her oral intake. She wishes to know whether she needs to continue use of her abdominal binder. I have shared with her at this point it would be for her comfort only and is not a strict requirement. Encouragingly, does seem that her abdominal discomforts that she shared were bothersome last week seem to have resolved over the weekend. Charges/Coding Visit Charges Inpatient E&M: 58787 SNF Subs L1
[2022-02-06 14:11] VITALS: BP 127/72; PULSE 95; RESP 16; TEMP 36.3; O2SAT 97
--- NOTE | 2022-02-06 15:43 | CASEMGMT ---
Social Work Relayed dtr's concerns to therapy. Therapy agreed for PT to reduce treatments for one week, then DC; OT will continue will full treatments for the next two weeks, then a DC date will be set based on status at that time. SW updated dtr and dtr agreeable and appreciative. SW to continue to follow. Roseline España, VALET SERVICE ATTENDANT SENIOR VICE PRESIDENT & GENERAL COUNSEL
--- NOTE | 2022-02-06 15:43 | WOUNDNOTE ---
stoma photo: left abdomen
--- NOTE | 2022-02-06 15:44 | WOUNDNOTE ---
Barbara Mina removed ostomy appliance. cleaned the peristomal skin with warm water, pat the skin dry, measured the stoma size with the pattern that had been cut, and cut the opening in the flange. Barbara used and [employer] ring this time rather than the stoma paste. placed the flange to the skin. patient was able to get the disposable pouch snapped pretty well onto the flange. pt was very reluctant to try and states her fingers are very tender. will continue to encourage patient to be active in the care of her ostomy. Barbara Mina would also like this nurse to teach her sister and brother how to change the appliance as well. plan to arrange a time with them this week. This can also be done at home with home health care if it does not work out while patient is in TCU. Barbara Mina has done very well with the ostomy changes.
[2022-02-06] MEDS: OPTH EACH EYE (21:26)
[2022-02-06] MEDS: BIMATOPROST 0.01% EACH EYE (21:26)
[2022-02-06 21:31] VITALS: BP 121/74; PULSE 97
[2022-02-06] MEDS: 0.9% Saline Lock 10 ML Syringe IV (21:46)
[2022-02-07 06:00] VITALS: BP 129/51; PULSE 89; RESP 16; TEMP 36.4; O2SAT 97
[2022-02-07] MEDS: Glycerin/Hypromellose/PEG400 15 ml Bottle 1 DRP OPHTHALMIC ×4 (06:45→22:14)
[2022-02-07] MEDS: Levothyroxine 75 MCG Tablet PO (06:45)
[2022-02-07] MEDS: Budesonide 3 MG CAPSULE.EC PO (09:07)
[2022-02-07] MEDS: Hydrocortisone 10 MG Tablet PO (09:07)
[2022-02-07] MEDS: Hydroxychloroquine 200 MG Tablet PO (09:07)
[2022-02-07 09:08] VITALS: PULSE 92
[2022-02-07] MEDS: Metoprolol(XL)Succ 50 MG Tablet PO ×2 (09:08→22:23)
[2022-02-07] MEDS: POTASSIUM CHLORIDE 10 MEQ CAPSULE.ER 20 MEQ PO ×2 (09:08→17:39)
[2022-02-07] MEDS: Cholecalciferol (VIT D3) 25 MCG TABLET (1,000 UNITS) 50 MCG PO (09:09)
[2022-02-07] MEDS: BRIMONIDINE 0.15% 5 ML Bottle 1 DRP EACH EYE ×2 (09:10→22:15)
[2022-02-07] MEDS: Timolol 0.5% 5ML OPTH.BTL 1 DRP EACH EYE (09:11)
[2022-02-07 09:19] VITALS: RESP 17
[2022-02-07] MEDS: 0.9% Saline Lock 10 ML Syringe IV ×2 (11:57→22:24)
--- NOTE | 2022-02-07 13:20 | WOUNDNOTE ---
Pt sitting up in chair eating lunch. family from out of town currently visiting. Pt states she does like the disposable appliances and would like them for when she goes home. will get prescription for supplies for home health care. Patient unsure if other family members will be able to come for appliance changes. Both daughters have observed this nurse changing the appliance and daughter Barbara has changed the appliance twice now.
[2022-02-07 14:47] VITALS: BP 124/54; PULSE 86; RESP 16; TEMP 36.3; O2SAT 98
[2022-02-07] MEDS: BIMATOPROST 0.01% EACH EYE (22:14)
[2022-02-07] MEDS: OPTH EACH EYE (22:14)
[2022-02-07 22:23] VITALS: BP 145/64; PULSE 96
[2022-02-08] MEDS: Levothyroxine 75 MCG Tablet PO (06:32)
[2022-02-08] MEDS: Glycerin/Hypromellose/PEG400 15 ml Bottle 1 DRP OPHTHALMIC ×4 (06:34→22:20)
[2022-02-08 08:14] VITALS: BP 135/61; PULSE 88
[2022-02-08] MEDS: Timolol 0.5% 5ML OPTH.BTL 1 DRP EACH EYE (08:14)
[2022-02-08] MEDS: Furosemide 40 MG Tablet PO (08:14)
[2022-02-08] MEDS: Metoprolol(XL)Succ 50 MG Tablet PO ×2 (08:14→22:20)
[2022-02-08] MEDS: POTASSIUM CHLORIDE 10 MEQ CAPSULE.ER 20 MEQ PO ×2 (08:15→16:00)
[2022-02-08] MEDS: Cholecalciferol (VIT D3) 25 MCG TABLET (1,000 UNITS) 50 MCG PO (08:15)
[2022-02-08] MEDS: Hydrocortisone 10 MG Tablet PO (08:15)
[2022-02-08] MEDS: Hydroxychloroquine 200 MG Tablet PO (08:15)
[2022-02-08] MEDS: Budesonide 3 MG CAPSULE.EC PO (08:15)
[2022-02-08] MEDS: BRIMONIDINE 0.15% 5 ML Bottle 1 DRP EACH EYE ×2 (08:22→22:21)
[2022-02-08 10:00] VITALS: PULSE 88; RESP 16; O2SAT 97
--- NOTE | 2022-02-08 13:18 | WOUNDNOTE ---
Pt sitting up in chair. ostomy appliance intact. pt states the disposable pouch was changed last evening. small amount of soft stool noted in the appliance.
[2022-02-08 15:11] VITALS: BP 130/62; PULSE 88; RESP 16; TEMP 36.7; O2SAT 94
[2022-02-08] MEDS: BIMATOPROST 0.01% EACH EYE (22:09)
[2022-02-08] MEDS: OPTH EACH EYE (22:09)
[2022-02-08 22:20] VITALS: BP 143/65; PULSE 68
[2022-02-09] MEDS: Levothyroxine 75 MCG Tablet PO (06:20)
[2022-02-09] MEDS: Glycerin/Hypromellose/PEG400 15 ml Bottle 1 DRP OPHTHALMIC ×4 (06:21→21:22)
[2022-02-09 09:17] VITALS: BP 115/58; PULSE 93
[2022-02-09] MEDS: Hydroxychloroquine 200 MG Tablet PO (09:17)
[2022-02-09] MEDS: POTASSIUM CHLORIDE 10 MEQ CAPSULE.ER 20 MEQ PO ×2 (09:17→17:37)
[2022-02-09] MEDS: Budesonide 3 MG CAPSULE.EC PO (09:17)
[2022-02-09] MEDS: Hydrocortisone 10 MG Tablet PO (09:17)
[2022-02-09] MEDS: Metoprolol(XL)Succ 50 MG Tablet PO ×2 (09:17→21:13)
[2022-02-09] MEDS: Cholecalciferol (VIT D3) 25 MCG TABLET (1,000 UNITS) 50 MCG PO (09:18)
[2022-02-09] MEDS: Timolol 0.5% 5ML OPTH.BTL 1 DRP EACH EYE (09:18)
[2022-02-09] MEDS: BRIMONIDINE 0.15% 5 ML Bottle 1 DRP EACH EYE ×2 (09:22→21:12)
[2022-02-09] MEDS: 0.9% Saline Lock 10 ML Syringe IV (09:28)
--- NOTE | 2022-02-09 13:30 | WOUNDNOTE ---
In to reassess the colostomy appliance. moderate amount of soft brown stool noted in the appliance. there is some dried stool noted on the flange. no family present at this time, but this nurse did change the ostomy appliance since the flange was starting to loosen near the healed incision. stoma remains beefy red and moist. peristomal skin is intact. pt tolerated appliance change well. plan on at least one more appliance change with family prior to discharge home. patient aware that this nurse will be on vacation the week after next so next week will do more teaching with daughter Barbara and other family as desired. pt denies further needs at this time.
[2022-02-09 14:47] VITALS: BP 131/53; PULSE 63; RESP 16; TEMP 36.3; O2SAT 96
--- NOTE | 2022-02-09 15:31 | PCM.PN.SRG ---
Subjective Subjective Patient seen and examined during afternoon rounds. She is actively working with physical therapy. She reports that she feels overall better, but still fatigues very quickly with activity. She also complains that she still does not have much of an appetite. Objective Data Objective Data Vital Signs: Vital Signs Temp Pulse Resp BP Pulse Ox O2 Del Method 97.3 F L 63 16 131/53 H 96 Room Air 02/09/22 14:47 02/09/22 14:47 02/09/22 14:47 02/09/22 14:47 02/09/22 14:47 02/09/22 14:47 Oxygen Delivery Method Room Air Weight: 111 lb 1.808 oz Body Mass Index (BMI) 23.3 Intake & Output: Intake and Output for Last 24 Hours 02/07/22 02/08/22 02/09/22 23:59 23:59 23:59 Intake Total 600 / 600 720 / 720 720 / 720 Output Total 400 / 400 Balance 600 / 600 320 / 320 720 / 720 Lab / Micro Data Result Diagrams: 02/05/22 06:40 02/05/22 06:40 Micro: Microbiology 02/09/22 09:00 Nasal Secretion SARS-CoV-2 Antigen (Rapid) - Final 02/02/22 09:44 Nasal Secretion SARS-CoV-2 Antigen (Rapid) - Final 01/31/22 12:55 Nasal Secretion SARS-CoV-2 Antigen (Rapid) - Final 01/28/22 Unknown Interface Orders SARS-CoV-2 Antigen (Rapid) - Final Physical Exam Const oriented x3 GI GI Narrative: Mildly distended, soft, minimally tender to palpation. Well-healing midline laparotomy wound. Son colostomy appliance in place to left upper abdomen colostomy. Assessment & Plan Assessment/Plan (1) Perforation of sigmoid colon due to diverticulitis: PLAN: Patient is status post Alfonso's procedure with drain placement 01/11/2022. Patient slowly progressing with therapy and nutrition. Her wound continues to appear well-healing. Patient encouraged to continue to show ownership of colostomy. No further recommendations from surgery at this time. Charges/Coding Visit Charges Inpatient E&M: 12797 [facility] Subs L1
[2022-02-09 21:13] VITALS: BP 148/61; PULSE 100
[2022-02-09] MEDS: OPTH EACH EYE (21:19)
[2022-02-09] MEDS: BIMATOPROST 0.01% EACH EYE (21:19)
[2022-02-09 22:00] VITALS: PULSE 100; RESP 16; O2SAT 96
[2022-02-10] MEDS: Glycerin/Hypromellose/PEG400 15 ml Bottle 1 DRP OPHTHALMIC ×3 (05:35→17:03)
[2022-02-10] MEDS: Levothyroxine 75 MCG Tablet PO (05:35)
[2022-02-10] MEDS: BRIMONIDINE 0.15% 5 ML Bottle 1 DRP EACH EYE ×2 (08:53→21:49)
[2022-02-10] MEDS: POTASSIUM CHLORIDE 10 MEQ CAPSULE.ER 20 MEQ PO ×2 (08:55→17:03)
[2022-02-10 09:00] VITALS: BP 149/72; PULSE 94
[2022-02-10] MEDS: Metoprolol(XL)Succ 50 MG Tablet PO ×2 (09:00→21:42)
[2022-02-10] MEDS: Hydroxychloroquine 200 MG Tablet PO (09:00)
[2022-02-10] MEDS: Hydrocortisone 10 MG Tablet PO (09:00)
[2022-02-10] MEDS: Budesonide 3 MG CAPSULE.EC PO (09:00)
[2022-02-10] MEDS: Cholecalciferol (VIT D3) 25 MCG TABLET (1,000 UNITS) 50 MCG PO (09:00)
[2022-02-10] MEDS: Timolol 0.5% 5ML OPTH.BTL 1 DRP EACH EYE (09:01)
[2022-02-10] MEDS: Furosemide 40 MG Tablet PO (09:01)
[2022-02-10] MEDS: 0.9% Saline Lock 10 ML Syringe IV ×2 (10:27→21:38)
[2022-02-10 10:32] VITALS: PULSE 94; RESP 16; O2SAT 96
[2022-02-10 15:51] VITALS: BP 149/72; PULSE 94; RESP 16; TEMP 36.9; O2SAT 96
[2022-02-10] MEDS: OPTH EACH EYE (21:40)
[2022-02-10] MEDS: BIMATOPROST 0.01% EACH EYE (21:40)
[2022-02-10 21:42] VITALS: BP 142/56; PULSE 98
[2022-02-11] MEDS: Levothyroxine 75 MCG Tablet PO (06:17)
[2022-02-11] MEDS: Glycerin/Hypromellose/PEG400 15 ml Bottle 1 DRP OPHTHALMIC ×4 (06:17→22:11)
[2022-02-11] MEDS: BRIMONIDINE 0.15% 5 ML Bottle 1 DRP EACH EYE ×2 (08:03→22:01)
[2022-02-11] MEDS: Budesonide 3 MG CAPSULE.EC PO (08:03)
[2022-02-11] MEDS: Hydrocortisone 10 MG Tablet PO (08:04)
[2022-02-11] MEDS: Hydroxychloroquine 200 MG Tablet PO (08:05)
[2022-02-11 08:06] VITALS: BP 118/47; PULSE 46
[2022-02-11] MEDS: Timolol 0.5% 5ML OPTH.BTL 1 DRP EACH EYE (08:06)
[2022-02-11] MEDS: Cholecalciferol (VIT D3) 25 MCG TABLET (1,000 UNITS) 50 MCG PO (08:07)
[2022-02-11] MEDS: POTASSIUM CHLORIDE 10 MEQ CAPSULE.ER 20 MEQ PO ×2 (08:07→18:04)
[2022-02-11 15:15] VITALS: BP 136/68; PULSE 101; RESP 16; TEMP 36.4; O2SAT 97
[2022-02-11 22:03] VITALS: BP 137/56; PULSE 102
[2022-02-11] MEDS: Metoprolol(XL)Succ 50 MG Tablet PO (22:03)
[2022-02-11] MEDS: BIMATOPROST 0.01% EACH EYE (22:06)
[2022-02-11] MEDS: OPTH EACH EYE (22:06)
[2022-02-11] MEDS: 0.9% Saline Lock 10 ML Syringe IV (22:06)
[2022-02-11 23:23] VITALS: PULSE 102; RESP 16; O2SAT 97
[2022-02-12] MEDS: Glycerin/Hypromellose/PEG400 15 ml Bottle 1 DRP OPHTHALMIC ×4 (05:51→21:50)
[2022-02-12] MEDS: Levothyroxine 75 MCG Tablet PO (05:53)
--- NOTE | 2022-02-12 05:55 | NURSING ---
Patient requested to hold Ensure until breakfast.
[2022-02-12 06:13] LABS: Absolute Lymphocyte Count 2.51 X10^3/uL (0.83-4.51); Absolute Neutrophil Count 6.9 X10^3/uL (2.0-7.7); Basophil# 0.05 X10^3/uL; Basophil% 0.5 % (0-1); Eosinophil# 0.14 X10^3/uL; Eosinophils% 1.3 % (0-5); Hematocrit 35.7 % (37-47); Hemoglobin 11.6 g/dL (12.0-15.0); Lymphocyte # 2.51 X10^3/ul (0.83-4.51); Lymphocyte % 23.3 % (19-41); Mean Corp Hgb Conc 32.5 g/dL (32-36); Mean Corpuscular Hgb 32.1 pg (27.0-32.0); Mean Corpuscular Volume 98.9 fL (81-99); Mean Platelet Vol. 10.1 fl (6.2-12.0); Monocyte# 0.92 X10^3/uL; Monocyte% 8.5 % (0-10); NRBC Flagged by Analyzer 0 % (0-5); Neutrophil # 6.91 X10^3/uL (2.7-7.7); Neutrophil % 64.1 % (47-70); Platelet Count 171 K/mm3 (150-450); RBC Distribution Width SD 61.6 fl (35.1-43.9); Red Blood Count 3.61 M/mm3 (4.2-5.4); White Blood Count 10.8 K/mm3 (4.4-11.0)
[2022-02-12 06:50] LABS: Anion Gap 7 (5-15); BUN 28 mg/dL (7-18); BUN/Creat Ratio 39.1 RATIO (10-20); Calcium,Total 8.8 mg/dL (8.5-10.1); Chloride 102 mmol/L (98-107); Creatinine, Serum 0.72 mg/dL (0.55-1.02); EST Glomerular Filtration Rate 83 mL/min (>60); Est Glom Filt Rate - Afr Amer 100 mL/min (>60); Estimated Creatinine Clearance 34.51 ml/min; Glucose 100 mg/dL (74-106); Potassium 4.5 mmol/L (3.5-5.1); Sodium Level 133 mmol/L (136-145)
[2022-02-12] MEDS: BRIMONIDINE 0.15% 5 ML Bottle 1 DRP EACH EYE ×2 (08:19→21:40)
[2022-02-12] MEDS: Timolol 0.5% 5ML OPTH.BTL 1 DRP EACH EYE (08:19)
[2022-02-12] MEDS: Furosemide 40 MG Tablet PO (08:20)
[2022-02-12 08:21] VITALS: BP 140/59; PULSE 91
[2022-02-12] MEDS: Cholecalciferol (VIT D3) 25 MCG TABLET (1,000 UNITS) 50 MCG PO (08:21)
[2022-02-12] MEDS: Metoprolol(XL)Succ 50 MG Tablet PO ×2 (08:21→21:40)
[2022-02-12] MEDS: Hydroxychloroquine 200 MG Tablet PO (08:21)
[2022-02-12] MEDS: POTASSIUM CHLORIDE 10 MEQ CAPSULE.ER 20 MEQ PO ×2 (08:22→17:06)
[2022-02-12] MEDS: Budesonide 3 MG CAPSULE.EC PO (08:22)
[2022-02-12] MEDS: Hydrocortisone 10 MG Tablet PO (08:22)
[2022-02-12 15:17] VITALS: BP 136/65; PULSE 98; RESP 16; TEMP 36.2; O2SAT 98
[2022-02-12 21:31] VITALS: BP 134/69; PULSE 98; RESP 18; TEMP 36.3; O2SAT 96
[2022-02-12 21:40] VITALS: PULSE 95
[2022-02-12] MEDS: BIMATOPROST 0.01% EACH EYE (21:40)
[2022-02-12] MEDS: OPTH EACH EYE (21:40)
[2022-02-12 21:45] VITALS: PULSE 95
[2022-02-12] MEDS: 0.9% Saline Lock 10 ML Syringe IV (22:09)
[2022-02-13] MEDS: Glycerin/Hypromellose/PEG400 15 ml Bottle 1 DRP OPHTHALMIC ×4 (06:01→21:38)
[2022-02-13] MEDS: Levothyroxine 75 MCG Tablet PO (06:03)
[2022-02-13] MEDS: Hydrocortisone 10 MG Tablet PO (07:55)
[2022-02-13] MEDS: Hydroxychloroquine 200 MG Tablet PO (07:56)
[2022-02-13] MEDS: BRIMONIDINE 0.15% 5 ML Bottle 1 DRP EACH EYE ×2 (07:56→21:38)
[2022-02-13] MEDS: Budesonide 3 MG CAPSULE.EC PO (07:56)
[2022-02-13] MEDS: Timolol 0.5% 5ML OPTH.BTL 1 DRP EACH EYE (07:57)
[2022-02-13] MEDS: Cholecalciferol (VIT D3) 25 MCG TABLET (1,000 UNITS) 50 MCG PO (07:57)
[2022-02-13 07:58] VITALS: PULSE 90
[2022-02-13] MEDS: POTASSIUM CHLORIDE 10 MEQ CAPSULE.ER 20 MEQ PO ×2 (07:58→17:42)
[2022-02-13] MEDS: Metoprolol(XL)Succ 50 MG Tablet PO ×2 (07:58→21:38)
[2022-02-13] MEDS: 0.9% Saline Lock 10 ML Syringe IV ×2 (11:26→23:08)
--- NOTE | 2022-02-13 15:14 | WOUNDNOTE ---
Talked with daughter, Barbara. Plan on another ostomy appliance change with Barbara tomorrow. Daughter has been able to change the appliance a few times now with very little cueing. Will get script for ostomy supplies prior to discharge as well. patient and daughter aware that this nurse will be out next week so any further teaching will be this week.
[2022-02-13 15:53] VITALS: BP 141/62; PULSE 85; RESP 18; TEMP 36.7; O2SAT 96
[2022-02-13 21:28] VITALS: BP 144/66; PULSE 85; RESP 18; TEMP 36.3; O2SAT 96
[2022-02-13 21:38] VITALS: PULSE 85
[2022-02-13] MEDS: OPTH EACH EYE (21:38)
[2022-02-13] MEDS: BIMATOPROST 0.01% EACH EYE (21:38)
[2022-02-13 22:00] VITALS: PULSE 90
[2022-02-14] MEDS: Levothyroxine 75 MCG Tablet PO (07:03)
[2022-02-14] MEDS: Glycerin/Hypromellose/PEG400 15 ml Bottle 1 DRP OPHTHALMIC ×4 (07:03→20:27)
[2022-02-14] MEDS: Furosemide 40 MG Tablet PO (08:08)
[2022-02-14] MEDS: Budesonide 3 MG CAPSULE.EC PO (08:08)
[2022-02-14] MEDS: Hydrocortisone 10 MG Tablet PO (08:08)
[2022-02-14 08:09] VITALS: PULSE 86
[2022-02-14] MEDS: Cholecalciferol (VIT D3) 25 MCG TABLET (1,000 UNITS) 50 MCG PO (08:09)
[2022-02-14] MEDS: POTASSIUM CHLORIDE 10 MEQ CAPSULE.ER 20 MEQ PO ×2 (08:09→17:49)
[2022-02-14] MEDS: Metoprolol(XL)Succ 50 MG Tablet PO ×2 (08:09→20:26)
[2022-02-14] MEDS: Hydroxychloroquine 200 MG Tablet PO (08:09)
[2022-02-14] MEDS: Timolol 0.5% 5ML OPTH.BTL 1 DRP EACH EYE (08:10)
[2022-02-14] MEDS: BRIMONIDINE 0.15% 5 ML Bottle 1 DRP EACH EYE ×2 (08:14→20:28)
[2022-02-14 10:00] VITALS: PULSE 72; RESP 14
--- NOTE | 2022-02-14 11:38 | CASEMGMT ---
Social Work This clinical social work therapist to patient room. Patient daughter present in room. Introduced self and clinical social work therapist role. Patient and patient daughter remembering this clinical social work therapist from prior interactions. This clinical social work therapist communicating that discharge date has been set for 02/25/2022. Patient and patient daughter nervous about discharge to home but voiced understanding and reasoning for setting discharge date as patient is progressing well with therapy and teaching with colostomy. This clinical social work therapist communicating that physical and occupational therapy along with nursing are recommending for patient to have home health services. Patient agreeable to home health recommendation. This clinical social work therapist provided patient/patient daughter with list of skilled home health services that are local to patient geographical region. Patient and patient daughter to look over list and make decision on home health company. Patient reports to have all needed DME in the home including a walker. Active support and listening provided. Proposed discharge date: 02/25/2022 PLAN: Discharge to home with home health services and family to check in with. Will continue to follow. Trevin GRAY, JIL
--- NOTE | 2022-02-14 12:51 | WOUNDNOTE ---
Talked with daughterBarbara who states her brother will be in Sunday for ostomy teaching. the appliance is currently intact so the plan is to do teaching with the brother on Sunday. Daughter Barbara has changed the appliance a few times already and has emptied the appliance as well. Pt wanting more family members taught how the appliance is changed. discharge date is scheduled for 02/25/22. patient and family aware that this nurse is out next week.
[2022-02-14 16:00] VITALS: BP 147/75; PULSE 94; RESP 18; TEMP 36.4; O2SAT 95
[2022-02-14 20:26] VITALS: BP 130/62; PULSE 95
[2022-02-14] MEDS: OPTH EACH EYE (20:28)
[2022-02-14] MEDS: BIMATOPROST 0.01% EACH EYE (20:28)
[2022-02-15] MEDS: Glycerin/Hypromellose/PEG400 15 ml Bottle 1 DRP OPHTHALMIC ×4 (05:31→22:10)
[2022-02-15] MEDS: Levothyroxine 75 MCG Tablet PO (05:32)
--- NOTE | 2022-02-15 06:19 | NURSING ---
Patient had nosebleed this shift. Light bleeding but took a long time to stop. Got it stopped a couple times and patient would cough or gag and it would start again. Bleed stopped this morning and patient trying to get some rest.
[2022-02-15] MEDS: Hydroxychloroquine 200 MG Tablet PO (08:44)
[2022-02-15] MEDS: BRIMONIDINE 0.15% 5 ML Bottle 1 DRP EACH EYE ×2 (08:44→22:10)
[2022-02-15] MEDS: Timolol 0.5% 5ML OPTH.BTL 1 DRP EACH EYE (08:44)
[2022-02-15] MEDS: Hydrocortisone 10 MG Tablet PO (08:44)
[2022-02-15 08:45] VITALS: BP 136/63; PULSE 93
[2022-02-15] MEDS: Metoprolol(XL)Succ 50 MG Tablet PO ×2 (08:45→22:19)
[2022-02-15] MEDS: Budesonide 3 MG CAPSULE.EC PO (08:45)
[2022-02-15] MEDS: Cholecalciferol (VIT D3) 25 MCG TABLET (1,000 UNITS) 50 MCG PO (08:45)
[2022-02-15] MEDS: POTASSIUM CHLORIDE 10 MEQ CAPSULE.ER 20 MEQ PO ×2 (08:45→16:00)
--- NOTE | 2022-02-15 12:55 | WOUNDNOTE ---
Pt sitting up in chair eating lunch. patient has more disposable pouches in room. pt states she does want to continue with the disposable pouches.
--- NOTE | 2022-02-15 15:21 | WOUNDNOTE ---
Script for ostomy supplies is written out for Dr May to sign prior to discharge home on 02/25/22. KARRIE Varghese aware as well. Home health will get the supplies for patient once she is home, but patient will be sent with some supplies as well.
[2022-02-15 16:00] VITALS: BP 136/63; PULSE 93; RESP 18; TEMP 37.2; O2SAT 93
[2022-02-15] MEDS: 0.9% Saline Lock 10 ML Syringe IV ×2 (16:01→22:12)
[2022-02-15 20:00] VITALS: PULSE 97; RESP 16; O2SAT 97
[2022-02-15] MEDS: OPTH EACH EYE (22:09)
[2022-02-15] MEDS: BIMATOPROST 0.01% EACH EYE (22:09)
[2022-02-15 22:19] VITALS: BP 134/57; PULSE 94
[2022-02-16] MEDS: Glycerin/Hypromellose/PEG400 15 ml Bottle 1 DRP OPHTHALMIC ×4 (06:00→22:41)
[2022-02-16] MEDS: Levothyroxine 75 MCG Tablet PO (06:01)
[2022-02-16 06:36] LABS: Hematocrit 35.4 % (37-47); Hemoglobin 11.3 g/dL (12.0-15.0)
[2022-02-16] MEDS: Cholecalciferol (VIT D3) 25 MCG TABLET (1,000 UNITS) 50 MCG PO (09:47)
[2022-02-16 09:48] VITALS: PULSE 62
[2022-02-16] MEDS: Budesonide 3 MG CAPSULE.EC PO (09:48)
[2022-02-16] MEDS: Metoprolol(XL)Succ 50 MG Tablet PO ×2 (09:48→19:46)
[2022-02-16] MEDS: Furosemide 40 MG Tablet PO (09:48)
[2022-02-16] MEDS: Hydroxychloroquine 200 MG Tablet PO (09:48)
[2022-02-16] MEDS: Hydrocortisone 10 MG Tablet PO (09:48)
[2022-02-16] MEDS: Timolol 0.5% 5ML OPTH.BTL 1 DRP EACH EYE (09:52)
[2022-02-16] MEDS: BRIMONIDINE 0.15% 5 ML Bottle 1 DRP EACH EYE ×2 (09:53→22:40)
[2022-02-16] MEDS: POTASSIUM CHLORIDE 10 MEQ CAPSULE.ER 20 MEQ PO ×2 (09:54→17:26)
[2022-02-16 15:00] VITALS: BP 131/66; PULSE 100; RESP 18; TEMP 37.1; O2SAT 97
[2022-02-16] MEDS: 0.9% Saline Lock 10 ML Syringe IV (19:44)
[2022-02-16 19:46] VITALS: PULSE 72
[2022-02-16] MEDS: BIMATOPROST 0.01% EACH EYE (22:40)
[2022-02-16] MEDS: OPTH EACH EYE (22:40)
[2022-02-16 22:52] VITALS: PULSE 95; RESP 16; O2SAT 97
[2022-02-17] MEDS: Glycerin/Hypromellose/PEG400 15 ml Bottle 1 DRP OPHTHALMIC ×4 (06:43→21:22)
[2022-02-17] MEDS: Levothyroxine 75 MCG Tablet PO (06:43)
[2022-02-17] MEDS: Hydroxychloroquine 200 MG Tablet PO (09:08)
[2022-02-17] MEDS: Budesonide 3 MG CAPSULE.EC PO (09:09)
[2022-02-17] MEDS: POTASSIUM CHLORIDE 10 MEQ CAPSULE.ER 20 MEQ PO ×2 (09:09→17:10)
[2022-02-17] MEDS: Timolol 0.5% 5ML OPTH.BTL 1 DRP EACH EYE (09:09)
[2022-02-17] MEDS: Hydrocortisone 10 MG Tablet PO (09:09)
[2022-02-17 09:10] VITALS: PULSE 70
[2022-02-17] MEDS: Metoprolol(XL)Succ 50 MG Tablet PO ×2 (09:10→21:25)
[2022-02-17] MEDS: BRIMONIDINE 0.15% 5 ML Bottle 1 DRP EACH EYE ×2 (09:10→21:28)
[2022-02-17] MEDS: Cholecalciferol (VIT D3) 25 MCG TABLET (1,000 UNITS) 50 MCG PO (09:10)
--- NOTE | 2022-02-17 11:43 | WOUNDNOTE ---
Colostomy appliance changed with daughterMarga. pt was able to snap the pouch onto the flange once the flange was placed around the stoma. DaughterBarbraa has changed the appliance a few times and now Marga has observed the appliance change twice. there are supplies in the patient's closet for discharge and script was written for supplies for home health to obtain. family has the teaching booklet and the step by step appliance change pamphlet. both are very appreciative of the care. pt denies further needs at this time.
--- NOTE | 2022-02-17 12:30 | CASEMGMT ---
Social Work SW presented to pt room with Marga lacey, present. Barbara, Wound RN present finishing treatment. All parties agreeable for DC 02/25. Pt will be sent home with colostomy supplies. SW to send script to company to get supplies at home. SW confirmed HHC and no DME needs. Barbara Lacey, to contact this worker to select HHC company. Marga Lacey, requested [facility] list to review as well. SW provided. SW to await [facility] selection to place order. Plan: DC home with 02/25, HHC PT/OT/SN Roseline España, MARINA GONZALEZW
[2022-02-17 15:30] VITALS: BP 146/58; PULSE 62; RESP 16; TEMP 36.2; O2SAT 97
[2022-02-17 20:00] VITALS: O2SAT 97
[2022-02-17] MEDS: OPTH EACH EYE (21:22)
[2022-02-17] MEDS: BIMATOPROST 0.01% EACH EYE (21:22)
[2022-02-17 21:25] VITALS: BP 142/60; PULSE 97
[2022-02-17] MEDS: 0.9% Saline Lock 10 ML Syringe IV (21:45)
[2022-02-18] MEDS: Glycerin/Hypromellose/PEG400 15 ml Bottle 1 DRP OPHTHALMIC ×4 (06:08→20:19)
[2022-02-18] MEDS: Levothyroxine 75 MCG Tablet PO (06:10)
[2022-02-18] MEDS: BRIMONIDINE 0.15% 5 ML Bottle 1 DRP EACH EYE ×2 (09:02→20:20)
[2022-02-18] MEDS: POTASSIUM CHLORIDE 10 MEQ CAPSULE.ER 20 MEQ PO ×2 (09:02→17:29)
[2022-02-18] MEDS: Timolol 0.5% 5ML OPTH.BTL 1 DRP EACH EYE (09:02)
[2022-02-18 09:03] VITALS: BP 131/55; PULSE 89
[2022-02-18] MEDS: Metoprolol(XL)Succ 50 MG Tablet PO ×2 (09:03→20:37)
[2022-02-18] MEDS: Hydrocortisone 10 MG Tablet PO (09:03)
[2022-02-18] MEDS: Budesonide 3 MG CAPSULE.EC PO (09:03)
[2022-02-18] MEDS: Cholecalciferol (VIT D3) 25 MCG TABLET (1,000 UNITS) 50 MCG PO (09:03)
[2022-02-18] MEDS: Hydroxychloroquine 200 MG Tablet PO (09:04)
[2022-02-18] MEDS: Furosemide 40 MG Tablet PO (09:04)
[2022-02-18 10:00] VITALS: PULSE 89; RESP 16; O2SAT 97
[2022-02-18] MEDS: 0.9% Saline Lock 10 ML Syringe IV (12:19)
[2022-02-18 15:29] VITALS: BP 126/62; PULSE 89; RESP 16; TEMP 36.9; O2SAT 97
[2022-02-18] MEDS: OPTH EACH EYE (20:19)
[2022-02-18] MEDS: BIMATOPROST 0.01% EACH EYE (20:19)
[2022-02-18 20:37] VITALS: BP 136/63; PULSE 95
[2022-02-19 04:47] LABS: Absolute Lymphocyte Count 2.68 X10^3/uL (0.83-4.51); Absolute Neutrophil Count 6.3 X10^3/uL (2.0-7.7); Basophil# 0.04 X10^3/uL; Basophil% 0.4 % (0-1); Eosinophil# 0.19 X10^3/uL; Eosinophils% 1.8 % (0-5); Hematocrit 33.9 % (37-47); Hemoglobin 11.2 g/dL (12.0-15.0); Lymphocyte # 2.68 X10^3/ul (0.83-4.51); Lymphocyte % 25.9 % (19-41); Mean Corpuscular Hgb 32.3 pg (27.0-32.0); Mean Corpuscular Volume 97.7 fL (81-99); Mean Platelet Vol. 9.8 fl (6.2-12.0); Monocyte# 0.98 X10^3/uL; Monocyte% 9.5 % (0-10); NRBC Flagged by Analyzer 0 % (0-5); Platelet Count 163 K/mm3 (150-450); RBC Distribution Width CV 16.8 % (11.6-14.6); RBC Distribution Width SD 60.5 fl (35.1-43.9); Red Blood Count 3.47 M/mm3 (4.2-5.4); White Blood Count 10.3 K/mm3 (4.4-11.0)
[2022-02-19 05:01] LABS: Anion Gap 6 (5-15); BUN 32 mg/dL (7-18); Calcium,Total 8.4 mg/dL (8.5-10.1); Chloride 102 mmol/L (98-107); Creatinine, Serum 0.74 mg/dL (0.55-1.02); EST Glomerular Filtration Rate 79 mL/min (>60); Est Glom Filt Rate - Afr Amer 96 mL/min (>60); Estimated Creatinine Clearance 31.52 ml/min; Glucose 102 mg/dL (74-106); Potassium 4.4 mmol/L (3.5-5.1); Sodium Level 133 mmol/L (136-145)
[2022-02-19] MEDS: Glycerin/Hypromellose/PEG400 15 ml Bottle 1 DRP OPHTHALMIC ×4 (05:46→21:42)
[2022-02-19] MEDS: Levothyroxine 75 MCG Tablet PO (05:47)
--- NOTE | 2022-02-19 06:19 | NURSING ---
Picc dressing changed per protocol. Patient tolerated well with little c/o pain when adhesive was removed.
[2022-02-19] MEDS: BRIMONIDINE 0.15% 5 ML Bottle 1 DRP EACH EYE ×2 (08:29→21:06)
[2022-02-19] MEDS: POTASSIUM CHLORIDE 10 MEQ CAPSULE.ER 20 MEQ PO ×2 (08:29→17:33)
[2022-02-19] MEDS: Timolol 0.5% 5ML OPTH.BTL 1 DRP EACH EYE (08:29)
[2022-02-19] MEDS: Hydroxychloroquine 200 MG Tablet PO (08:31)
[2022-02-19] MEDS: Hydrocortisone 10 MG Tablet PO (08:31)
[2022-02-19] MEDS: Budesonide 3 MG CAPSULE.EC PO (08:31)
[2022-02-19] MEDS: Cholecalciferol (VIT D3) 25 MCG TABLET (1,000 UNITS) 50 MCG PO (08:31)
[2022-02-19 08:36] VITALS: BP 133/68; PULSE 84
[2022-02-19] MEDS: Metoprolol(XL)Succ 50 MG Tablet PO ×2 (08:36→21:07)
[2022-02-19 15:48] VITALS: BP 133/68; PULSE 84; RESP 16; TEMP 37.2; O2SAT 96
[2022-02-19] MEDS: OPTH EACH EYE (21:02)
[2022-02-19] MEDS: BIMATOPROST 0.01% EACH EYE (21:02)
[2022-02-19 21:07] VITALS: BP 152/66; PULSE 97
[2022-02-20] MEDS: Levothyroxine 75 MCG Tablet PO (05:30)
[2022-02-20] MEDS: Glycerin/Hypromellose/PEG400 15 ml Bottle 1 DRP OPHTHALMIC ×4 (05:32→22:10)
[2022-02-20] MEDS: POTASSIUM CHLORIDE 10 MEQ CAPSULE.ER 20 MEQ PO ×2 (08:34→17:13)
[2022-02-20] MEDS: BRIMONIDINE 0.15% 5 ML Bottle 1 DRP EACH EYE ×2 (08:35→22:09)
[2022-02-20] MEDS: Hydroxychloroquine 200 MG Tablet PO (08:36)
[2022-02-20] MEDS: Hydrocortisone 10 MG Tablet PO (08:36)
[2022-02-20] MEDS: Furosemide 40 MG Tablet PO (08:36)
[2022-02-20] MEDS: Timolol 0.5% 5ML OPTH.BTL 1 DRP EACH EYE (08:36)
[2022-02-20] MEDS: Budesonide 3 MG CAPSULE.EC PO (08:36)
[2022-02-20 08:37] VITALS: BP 146/62; PULSE 90
[2022-02-20] MEDS: Cholecalciferol (VIT D3) 25 MCG TABLET (1,000 UNITS) 50 MCG PO (08:37)
[2022-02-20] MEDS: Metoprolol(XL)Succ 50 MG Tablet PO ×2 (08:37→22:12)
[2022-02-20 15:21] VITALS: BP 128/67; PULSE 95; RESP 16; TEMP 36.2; O2SAT 96
[2022-02-20] MEDS: OPTH EACH EYE (22:10)
[2022-02-20] MEDS: BIMATOPROST 0.01% EACH EYE (22:10)
[2022-02-20 22:12] VITALS: BP 137/64; PULSE 99
[2022-02-21] MEDS: Glycerin/Hypromellose/PEG400 15 ml Bottle 1 DRP OPHTHALMIC ×4 (06:19→22:39)
[2022-02-21] MEDS: Levothyroxine 75 MCG Tablet PO (06:20)
[2022-02-21] MEDS: Cholecalciferol (VIT D3) 25 MCG TABLET (1,000 UNITS) 50 MCG PO (09:22)
[2022-02-21] MEDS: Timolol 0.5% 5ML OPTH.BTL 1 DRP EACH EYE (09:22)
[2022-02-21] MEDS: Hydroxychloroquine 200 MG Tablet PO (09:22)
[2022-02-21 09:23] VITALS: BP 139/67; PULSE 94
[2022-02-21] MEDS: Metoprolol(XL)Succ 50 MG Tablet PO ×2 (09:23→22:13)
[2022-02-21] MEDS: POTASSIUM CHLORIDE 10 MEQ CAPSULE.ER 20 MEQ PO ×2 (09:23→17:42)
[2022-02-21] MEDS: Budesonide 3 MG CAPSULE.EC PO (09:23)
[2022-02-21] MEDS: Hydrocortisone 10 MG Tablet PO (09:23)
[2022-02-21] MEDS: BRIMONIDINE 0.15% 5 ML Bottle 1 DRP EACH EYE ×2 (09:24→22:11)
--- NOTE | 2022-02-21 09:58 | CASEMGMT ---
Social Work Followed up with dtr, Barbara, on [facility] company. Dtr requesting referral for [facility]. Referral made for PT/OT/SN. Faxed [facility] script for colostomy supplies. MARINA SaabW
[2022-02-21 14:20] VITALS: BP 122/61; PULSE 93; RESP 17; TEMP 36.8; O2SAT 97
[2022-02-21] MEDS: 0.9% Saline Lock 10 ML Syringe IV (17:42)
[2022-02-21 22:00] VITALS: PULSE 95; RESP 16; O2SAT 96
[2022-02-21 22:13] VITALS: BP 156/69; PULSE 95
[2022-02-21] MEDS: BIMATOPROST 0.01% EACH EYE (22:18)
[2022-02-21] MEDS: OPTH EACH EYE (22:18)
[2022-02-22] MEDS: Glycerin/Hypromellose/PEG400 15 ml Bottle 1 DRP OPHTHALMIC ×4 (06:43→22:03)
[2022-02-22] MEDS: Levothyroxine 75 MCG Tablet PO (06:43)
[2022-02-22] MEDS: Timolol 0.5% 5ML OPTH.BTL 1 DRP EACH EYE (07:57)
[2022-02-22] MEDS: BRIMONIDINE 0.15% 5 ML Bottle 1 DRP EACH EYE ×2 (07:57→22:02)
[2022-02-22] MEDS: POTASSIUM CHLORIDE 10 MEQ CAPSULE.ER 20 MEQ PO ×2 (07:58→18:05)
[2022-02-22] MEDS: Hydrocortisone 10 MG Tablet PO (07:59)
[2022-02-22] MEDS: Budesonide 3 MG CAPSULE.EC PO (07:59)
[2022-02-22] MEDS: Furosemide 40 MG Tablet PO (08:00)
[2022-02-22] MEDS: Hydroxychloroquine 200 MG Tablet PO (08:00)
[2022-02-22] MEDS: Cholecalciferol (VIT D3) 25 MCG TABLET (1,000 UNITS) 50 MCG PO (08:00)
[2022-02-22 08:02] VITALS: BP 144/59; PULSE 84
[2022-02-22] MEDS: Metoprolol(XL)Succ 50 MG Tablet PO ×2 (08:02→22:07)
--- NOTE | 2022-02-22 08:55 | DS.PCM_ITS ---
Providers Date of Admission: 01/21/22 Primary Care Physician: Dr. 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 * Debility - PT/OT. * Pain - Tylenol 1000mg q6h prn pain (1-5), Oxycodone 2.5mg q4h prn pain (6-10). * Bowel - senna/colace 1 tablet bid, Dulcolax 10mg daily prn. * Adult immunization - Administer pneumonia vaccine, covid19 vaccine, flu vaccine as appropriate. * DVT prophylaxis - HAS-BLED score 1 intermediate risk of bleeding, Mel score 8 high risk of blood clots, Rx Xarelto 10mg daily x 14 days. * Dry eyes - Artificial Tears 1 gtt 4x/day. * Glaucoma - Lumigan 1gt ou qhs, Brimonidine 1gtt ou bid, Timolol 1gtt ou daily. * Colitis - Budesonide 3mg daily. * Vitamin D deficiency - D3 2000IU daily. * Nutrition - Ensure Enlive 120ml po tidcm. * Fluid overload - Furosemide 40mg daily. * Adrenal insufficiency - Hydrocortisone 10mg daily. * Lupus - Plaquenil 200mg daily. * GI prophylaxis - Lactobacillus 1 tablet daily. * Hypothyroidism - Levothyroxine 75mcg daily. * Perforated diverticulitis - Zyvox 600mg bid. * Pancreatic insufficiency - Creon 1 tablet daily. * Atrial fibrillation - Metoprolol xl 50mg bid. * Hypokalemia - KCL 20meq daily. Medications at Discharge Home Medications brimonidine 0.15 % eye drops 1 drp EACH EYE BID eye drops 06/23/17 budesonide 3 mg capsule,delayed,extended release 3 mg PO DAILY inflammation 06/23/17 hydroxychloroquine 200 mg tablet 200 mg PO DAILYCM lupus 06/23/17 levothyroxine 75 mcg tablet 75 mcg PO DAILY thyroid 06/23/17 timolol maleate 0.5 % eye drops 1 drp EACH EYE DAILY eye drops 06/23/17 metoprolol succinate 50 mg tablet,extended release 24 hr 50 mg PO BID HEART 06/04/19 cholecalciferol (vitamin D3) 50 mcg (2,000 unit) capsule 2,000 unit PO DAILY SUPPLEMENT 07/30/19 hydrocortisone 5 mg tablet 10 mg PO DAILY steroid 07/31/19 aflibercept 2 mg/0.05 mL intravitreal syringe (Eylea) 2 mg intravitreal .[id number] EYE HEALTH 03/28/21 artificial tears solution eye drops 1 drp ophthalmic (eye) 4XD dry eyes 03/28/21 [id number] 12,000-38,000-60,000 unit capsule,delayed rel (Creon) 1 cap PO DAILY enzymes 04/29/21 Lactobacillus acidophilus 10 billion cell capsule (Probiotic) 10,000 mmu cells PO DAILY IMMUNE HEALTH 01/11/22 bimatoprost 0.01 % eye drops (Lumigan) 1 drp EACH EYE Q EYE HEALTH 01/11/22 furosemide 40 mg tablet 40 mg PO DAILY fluid pill 01/21/22 potassium chloride 10 mEq tablet,extended release(part/cryst) 20 meq PO DAILY SUPPLEMENT' #30 tabs 01/21/22 Hospital Course Operations - (Partial colectomy, colostomy.) Procedures None Summary of Care Provided Minutes Spent on Discharge: 35 Hospital Course: 81 year old female with below past medical history hospitalized for perforated sigmoid diverticulitis, underwent partial colectomy, end colostomy 01/11/2022, complicated by electrolyte abnormalities, admitted to TCU with debility, here f or rehabilitation, strengthening, prior to discharge home. Discharge home with 02/25/2022, [facility] PT/OT/SN. Physical Exam Const alert General Appearance: cooperative HEENT normocephalic Eyes PERRL and EOMs intact bilaterally Neck supple, no JVD and no carotid bruits Resp normal respiratory effort, normal air movement and clear to auscultation bilaterally Cardio regular rate and regular rhythm GI normal to inspection, nondistended, normoactive bowel sounds, non-tender and non-distended GI Narrative: Colostomy present. Extremity normal capillary refill General Extremity: Negative for edema Skin no rashes or lesions noted General Skin Exam: no breakdown Psych affect normal Appearance: appropriate Medical Records Data Medical Nutrition Assessment Dietitian: Malnutrition Criteria Met Start: 02/15/22 17:18 Freq: Status: Active Protocol: Document 02/15/22 17:20 [facility] (Rec: 02/15/22 17:20 [facility] [id number]) Nutrition Malnutrition Evidence of Malnutrition Exists Yes Malnutrition (severe): Acute Illness/Injury Evidenced By Suboptimal Energy Intake ( Moderate),Weight Loss (Severe) ,Physical Changes (Moderate) Intake Problem Inadequate Oral Intake Status Inactive Problem Clinical Problem Acute Disease or Injury Related Malnutrition Etiology related to recent surgery and inability to consume adequate nutrition to meet est nutritional needs Signs/Symptoms as evidenced by ~50% po intake at most meals, 8.7% wt loss since adm and fat/muscle loss in face and upper body. Status Active Problem Recommendation Dietitian Recommendations/Changes Will continue liberal regular diet Will continue ONS at meals per res request: 4 oz CIB w/ breakfast, 4 oz ensure enlive w/ lunch and 4 oz ensure enlive and magic cup w/ dinner Will continue ONS at [email or web address] 4x/day Weight / BMI Weight Weight: 47.673 kg Body Mass Index (BMI) 23.3 ABG / Lab / Microbiology Data Result Diagrams: 02/19/22 04:40 02/19/22 04:40 Microbiology: Microbiology 02/16/22 17:30 Nasal Secretion SARS-CoV-2 Antigen (Rapid) - Final 02/09/22 09:00 Nasal Secretion SARS-CoV-2 Antigen (Rapid) - Final 02/02/22 09:44 Nasal Secretion SARS-CoV-2 Antigen (Rapid) - Final 01/31/22 12:55 Nasal Secretion SARS-CoV-2 Antigen (Rapid) - Final 01/28/22 Unknown Interface Orders SARS-CoV-2 Antigen (Rapid) - Final D/C Instructions Discharge Diet: No restrictions Discharge Activity: Return to Normal Activity, May Shower and Use Walker Weight Bearing Status: Weight bearing as tolerated Call your doctor if you observe: Fever of 101 or Higher, Inability to urinate, Inability to have a bowel movement, Shortness of breath, Dizziness, Fainting spells, Swelling in the ankles, Chest pain and Uncontrolled pain Additional Instructions: Discharge home with 02/25/2022, [facility] PT/OT/SN. Meaningful Use Info Meaningful Use Diagnoses (Choose all that apply): None applicable Discharge Plan Admission Admit Date/Time: 01/21/22 19:56 Primary Reason for Your Visit: Debility. Attending Provider: Barak May Chi Primary Care Provider: Ashvin Cardenas Instructions Additional Instructions / Restrictions: Discharge home with 02/25/2022, [facility] PT/OT/SN. Discharge Orders/Prescriptions Prescriptions: Continued levothyroxine 75 MCG tablet 75 mcg PO DAILY Rx Instructions: name brand synthroid budesonide 3 MG capsule,delayed,extend.release 3 mg PO DAILY hydroxychloroquine 200 MG tablet 200 mg PO DAILYCM brimonidine 1 DROP bottle 1 drp EACH EYE BID timolol maleate 1 DROP drops 1 drp EACH EYE DAILY metoprolol succinate 50 MG tablet extended release 24 hr 50 mg PO BID hydrocortisone 5 MG tablet 10 mg PO DAILY Label Comments: TAKE 1 AND 1/2 TABLET BY MOUTH ONCE DAILY AND NEEDED STRESS DOSE artificial tears solution Drops 1 drp OPHTHALMIC (EYE) 4XD Eylea 2 mg/0.05 mL Syringe 2 mg INTRAVITREAL .[id number] Rx Instructions: last had 01/09/22 Creon 12,000-38,000 -60,000 unit capsule,delayed release(DR/EC) 1 cap PO DAILY Lumigan 0.01 % Drops 1 drp EACH EYE QHS Probiotic 10 billion cell Capsule 10,000 mmu cells PO DAILY potassium chloride 10 mEq tablet,ER particles/crystals 20 meq PO DAILY Qty: 30 0RF Discontinued linezolid 600 mg tablet 600 mg PO BID Rx Instructions: through 01/26/2022 No Action cholecalciferol (vitamin D3) 2,000 UNIT capsule 2,000 unit PO DAILY furosemide 40 mg tablet 40 mg PO DAILY Referrals / Follow Up: Ashvin Cardenas MD [Primary Care Provider] - 02/27/22 11:10 am Abdullahi May MD [Med Staff - Active Staff] - Within 2 Weeks Disposition Disposition (needs filled in before D/C Order can be placed): Home Health Service
[2022-02-22 10:00] VITALS: PULSE 84; RESP 16; O2SAT 95
[2022-02-22 15:05] VITALS: BP 144/59; PULSE 84; RESP 16; TEMP 36.6; O2SAT 95
[2022-02-22] MEDS: BIMATOPROST 0.01% EACH EYE (22:04)
[2022-02-22] MEDS: OPTH EACH EYE (22:04)
[2022-02-22 22:07] VITALS: BP 130/60; PULSE 96
[2022-02-23] MEDS: Calcium Carbonate 500 MG Tablet PO (01:36)
[2022-02-23] MEDS: Glycerin/Hypromellose/PEG400 15 ml Bottle 1 DRP OPHTHALMIC ×4 (06:14→21:37)
[2022-02-23] MEDS: Levothyroxine 75 MCG Tablet PO (06:14)
[2022-02-23] MEDS: Budesonide 3 MG CAPSULE.EC PO (09:42)
[2022-02-23] MEDS: Hydroxychloroquine 200 MG Tablet PO (09:42)
[2022-02-23 09:43] VITALS: BP 144/58; PULSE 93
[2022-02-23] MEDS: BRIMONIDINE 0.15% 5 ML Bottle 1 DRP EACH EYE ×2 (09:43→21:38)
[2022-02-23] MEDS: Timolol 0.5% 5ML OPTH.BTL 1 DRP EACH EYE (09:43)
[2022-02-23] MEDS: Cholecalciferol (VIT D3) 25 MCG TABLET (1,000 UNITS) 50 MCG PO (09:43)
[2022-02-23] MEDS: Metoprolol(XL)Succ 50 MG Tablet PO ×2 (09:43→21:38)
[2022-02-23] MEDS: POTASSIUM CHLORIDE 10 MEQ CAPSULE.ER 20 MEQ PO ×2 (09:44→18:08)
[2022-02-23] MEDS: Hydrocortisone 10 MG Tablet PO (09:44)
[2022-02-23 14:27] VITALS: BP 146/66; PULSE 96; RESP 15; TEMP 36.1; O2SAT 100
--- NOTE | 2022-02-23 16:35 | CASEMGMT ---
Social Work BIMS () and PHQ-9 (03/11) completed for MDS assessment. Score indicates mild depression. Roseline España, [employer]YWALL HANGER HELPER BAR SUPERVISOR
[2022-02-23] MEDS: Pantoprazole Sodium 40 MG Tablet PO (18:10)
--- NOTE | 2022-02-23 18:57 | NURSING ---
Daughter changed flange this shift.
[2022-02-23 21:00] VITALS: PULSE 94; RESP 16; O2SAT 96
[2022-02-23] MEDS: OPTH EACH EYE (21:35)
[2022-02-23] MEDS: BIMATOPROST 0.01% EACH EYE (21:35)
[2022-02-23 21:38] VITALS: BP 136/61; PULSE 94
[2022-02-24] MEDS: Levothyroxine 75 MCG Tablet PO (04:28)
[2022-02-24] MEDS: Glycerin/Hypromellose/PEG400 15 ml Bottle 1 DRP OPHTHALMIC ×4 (04:28→21:17)
[2022-02-24] MEDS: Pantoprazole Sodium 40 MG Tablet PO (04:28)
[2022-02-24 07:44] VITALS: BP 136/77; PULSE 95
[2022-02-24 07:45] VITALS: PULSE 95
[2022-02-24] MEDS: Metoprolol(XL)Succ 50 MG Tablet PO ×2 (07:45→21:17)
[2022-02-24] MEDS: POTASSIUM CHLORIDE 10 MEQ CAPSULE.ER 20 MEQ PO ×2 (07:45→17:48)
[2022-02-24] MEDS: Hydrocortisone 10 MG Tablet PO (07:46)
[2022-02-24] MEDS: BRIMONIDINE 0.15% 5 ML Bottle 1 DRP EACH EYE ×2 (07:46→21:18)
[2022-02-24] MEDS: Furosemide 40 MG Tablet PO (07:46)
[2022-02-24] MEDS: Hydroxychloroquine 200 MG Tablet PO (07:46)
[2022-02-24] MEDS: Budesonide 3 MG CAPSULE.EC PO (07:46)
[2022-02-24] MEDS: Cholecalciferol (VIT D3) 25 MCG TABLET (1,000 UNITS) 50 MCG PO (07:46)
[2022-02-24] MEDS: Timolol 0.5% 5ML OPTH.BTL 1 DRP EACH EYE (07:47)
[2022-02-24 15:05] VITALS: BP 134/51; PULSE 78; RESP 14; TEMP 36.4; O2SAT 96
--- NOTE | 2022-02-24 15:13 | NURSING ---
COLOSTOMY BAG REMOVED AT THIS TIME AND NEW BAG PLACED.
[2022-02-24 21:17] VITALS: BP 138/69; PULSE 94
[2022-02-24] MEDS: BIMATOPROST 0.01% EACH EYE (21:17)
[2022-02-24] MEDS: OPTH EACH EYE (21:17)
[2022-02-24 22:00] VITALS: PULSE 94; RESP 16; O2SAT 97
[2022-02-25] MEDS: Glycerin/Hypromellose/PEG400 15 ml Bottle 1 DRP OPHTHALMIC ×2 (06:06→11:12)
[2022-02-25] MEDS: Levothyroxine 75 MCG Tablet PO (06:07)
[2022-02-25] MEDS: Pantoprazole Sodium 40 MG Tablet PO (06:07)
[2022-02-25] MEDS: Hydrocortisone 10 MG Tablet PO (07:54)
[2022-02-25] MEDS: Budesonide 3 MG CAPSULE.EC PO (07:54)
[2022-02-25] MEDS: Hydroxychloroquine 200 MG Tablet PO (07:55)
[2022-02-25 07:56] VITALS: BP 148/70; PULSE 87
[2022-02-25] MEDS: Metoprolol(XL)Succ 50 MG Tablet PO (07:56)
[2022-02-25] MEDS: Timolol 0.5% 5ML OPTH.BTL 1 DRP EACH EYE (07:59)
[2022-02-25] MEDS: BRIMONIDINE 0.15% 5 ML Bottle 1 DRP EACH EYE (08:00)
[2022-02-25] MEDS: POTASSIUM CHLORIDE 10 MEQ CAPSULE.ER 20 MEQ PO (08:01)
[2022-02-25] MEDS: Cholecalciferol (VIT D3) 25 MCG TABLET (1,000 UNITS) 50 MCG PO (08:01)
[2022-02-25 09:00] VITALS: BP 148/70; PULSE 87; RESP 12; TEMP 36.6; O2SAT 98
== END 2022-02-25 14:40 | disposition home health service (06) | DRG 949 ==
PROVIDERS: Internal Medicine; Physician Assistant; Admitting Provider Family Medicine Geriatric Medicine; PCP Family Medicine; Visit Provider Family Medicine Geriatric Medicine
DX: Z48.815 Encounter for surgical aftercare following surgery on the digestive system (principal); E27.40 Unspecified adrenocortical insufficiency; E87.1 Hypo-osmolality and hyponatremia; K57.32 Diverticulitis of large intestine without perforation or abscess without bleeding; I27.20 Pulmonary hypertension, unspecified; K86.89 Other specified diseases of pancreas; M32.9 Systemic lupus erythematosus, unspecified; I48.91 Unspecified atrial fibrillation; Z93.3 Colostomy status; E55.9 Vitamin D deficiency, unspecified; E87.70 Fluid overload, unspecified; I10 Essential (primary) hypertension; E78.5 Hyperlipidemia, unspecified; E03.9 Hypothyroidism, unspecified; E87.6 Hypokalemia; H40.9 Unspecified glaucoma; Z79.899 Other long term (current) drug therapy; Z79.890 Hormone replacement therapy; B95.62 Methicillin resistant Staphylococcus aureus infection as the cause of diseases classified elsewhere
CPT/HCPCS: 36415; 80048; 80202; 83735; 84100; 85014; 85018; 85025; 87426; 87811; 92610; 97110; 97162; 97166; 97530; 97535; 97802; J2997; J7050; A4216

== ENCOUNTER → 2022-03-09 | Outpatient (CLI) | payer MEDICARE, SELFPAY ==
[2022-03-09 15:00] LABS: Absolute Lymphocyte Count 1.85 X10^3/uL (0.83-4.51); Absolute Neutrophil Count 7.2 X10^3/uL (2.0-7.7); Basophil# 0.03 X10^3/uL; Basophil% 0.3 % (0-1); Eosinophil# 0.06 X10^3/uL; Eosinophils% 0.6 % (0-5); Hematocrit 38.5 % (37-47); Hemoglobin 12.1 g/dL (12.0-15.0); Lymphocyte # 1.85 X10^3/ul (0.83-4.51); Lymphocyte % 18.1 % (19-41); Mean Corp Hgb Conc 31.4 g/dL (32-36); Mean Corpuscular Hgb 30.9 pg (27.0-32.0); Mean Corpuscular Volume 98.2 fL (81-99); Mean Platelet Vol. 10.1 fl (6.2-12.0); Monocyte# 1.01 X10^3/uL; Monocyte% 9.9 % (0-10); NRBC Flagged by Analyzer 0 % (0-5); Neutrophil # 7.21 X10^3/uL (2.7-7.7); Neutrophil % 70.4 % (47-70); Platelet Count 173 K/mm3 (150-450); RBC Distribution Width CV 15.9 % (11.6-14.6); RBC Distribution Width SD 57.3 fl (35.1-43.9); Red Blood Count 3.92 M/mm3 (4.2-5.4); White Blood Count 10.2 K/mm3 (4.4-11.0)
[2022-03-09 15:22] LABS: ALB/GLOB Ratio 0.7 RATIO (0.9-2.4); AST(SGOT) 14 U/L (15-37); Alanine Aminotransfer ALT/SGPT 20 U/L (13-56); Albumin, Serum 3.2 g/dL (3.2-5.0); Alkaline Phosphatase 62 U/L (45-117); Anion Gap 7 (5-15); BUN 16 mg/dL (7-18); BUN/Creat Ratio 19.2 RATIO (10-20); Calcium,Total 8.9 mg/dL (8.5-10.1); Chloride 99 mmol/L (98-107); Creatinine, Serum 0.83 mg/dL (0.55-1.02); EST Glomerular Filtration Rate 70 mL/min (>60); Est Glom Filt Rate - Afr Amer 84 mL/min (>60); Globulin 4.4 g/dL (2.2-4.2); Glucose 103 mg/dL (74-106); Potassium 3.6 mmol/L (3.5-5.1); Prealbumin 22.1 mg/dL (20.0-40.0); Protein, Total 7.6 g/dL (6.4-8.2); Sodium Level 134 mmol/L (136-145)
== END | disposition home or self-care (01) ==
LOC: MFPLAB 12:28
PROVIDERS: PCP Family Medicine; Referring Provider Family Medicine; Visit Provider Family Medicine
DX: K74.60 Unspecified cirrhosis of liver (principal); E87.5 Hyperkalemia
CPT/HCPCS: 36415; 80053; 83735; 84134; 85025

== ENCOUNTER → 2022-03-23 | Outpatient (CLI) | payer MEDICARE, SELFPAY ==
[2022-03-23 18:02] LABS: Absolute Lymphocyte Count 1.34 X10^3/uL (0.83-4.51); Absolute Neutrophil Count 6.8 X10^3/uL (2.0-7.7); Basophil# 0.03 X10^3/uL; Basophil% 0.3 % (0-1); Eosinophil# 0.04 X10^3/uL; Eosinophils% 0.4 % (0-5); Hematocrit 36.2 % (37-47); Hemoglobin 11.8 g/dL (12.0-15.0); Lymphocyte # 1.34 X10^3/ul (0.83-4.51); Lymphocyte % 14.9 % (19-41); Mean Corp Hgb Conc 32.6 g/dL (32-36); Mean Corpuscular Hgb 30.3 pg (27.0-32.0); Mean Corpuscular Volume 93.1 fL (81-99); Monocyte# 0.77 X10^3/uL; Monocyte% 8.5 % (0-10); NRBC Flagged by Analyzer 0 % (0-5); Neutrophil # 6.76 X10^3/uL (2.7-7.7); Neutrophil % 75.1 % (47-70); Platelet Count 172 K/mm3 (150-450); RBC Distribution Width CV 15.4 % (11.6-14.6); RBC Distribution Width SD 52.8 fl (35.1-43.9); Red Blood Count 3.89 M/mm3 (4.2-5.4)
[2022-03-23 18:27] LABS: ALB/GLOB Ratio 0.7 RATIO (0.9-2.4); AST(SGOT) 17 U/L (15-37); Alanine Aminotransfer ALT/SGPT 22 U/L (13-56); Alkaline Phosphatase 61 U/L (45-117); Anion Gap 10 (5-15); BUN 12 mg/dL (7-18); BUN/Creat Ratio 15.7 RATIO (10-20); Calcium,Total 8.5 mg/dL (8.5-10.1); Chloride 97 mmol/L (98-107); Creatinine, Serum 0.76 mg/dL (0.55-1.02); EST Glomerular Filtration Rate 77 mL/min (>60); Est Glom Filt Rate - Afr Amer 93 mL/min (>60); Globulin 4.4 g/dL (2.2-4.2); Glucose 130 mg/dL (74-106); Potassium 3.7 mmol/L (3.5-5.1); Protein, Total 7.4 g/dL (6.4-8.2); Sodium Level 131 mmol/L (136-145)
== END | disposition home or self-care (01) ==
LOC: MFPLAB 16:38
PROVIDERS: PCP Family Medicine; Referring Provider Family Medicine; Visit Provider Family Medicine
DX: R10.13 Epigastric pain (principal)
CPT/HCPCS: 36415; 80053; 85025; 86140

== ENCOUNTER 2022-03-25 14:46 | Inpatient (IN) | payer MEDICARE, SELFPAY ==
[2022-03-25] VITALS (10 sets, daily range): BP systolic 113–138; BP diastolic 53–71; PULSE 102–111; RESP 18–28; TEMP 36.6–37.9; O2SAT 89–98; BMI 23.1; BMI 22.1
--- NOTE | 2022-03-25 15:34 | EKG12_ITS ---
Test Reason : Blood Pressure : / mmHG Vent. Rate : 110 BPM Atrial Rate : 110 BPM P-R Int : 138 ms QRS Dur : 082 ms QT Int : 366 ms P-R-T Axes : 050 014 016 degrees QTc Int : 495 ms Sinus tachycardia with frequent Premature ventricular complexes Possible Left atrial enlargement Nonspecific ST abnormality Abnormal ECG Confirmed by DEJA COELLO, GARETH ([id number]), sports editor KEYLA CASTELLANOS ([id number]) on 03/27/2022 11:15:24 AM Referred By: TL Confirmed By:GARETH SHORT MD
--- NOTE | 2022-03-25 15:35 | EX.ED.DYSGE1 ---
HPI History of Present Illness Chief Complaint: Nausea/Vomiting Informant: patient and family Narrative Narrative: Patient here with daughters with increasing vomiting 3 episodes today. No hematemesis. 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 Discharged from TCU on February 25. Stooling well. Started on Protonix on TCU due to indigestion symptoms. Has been having intermittent symptoms worsen over the past week. No direct chest pains. Denies cough. Denies urinary symptoms. Normal ostomy output. States had pain across her upper abdomen, and go. She has had a cholecystectomy in the past. History of autoimmune hepatitis with MCKEON cirrhosis. Currently denies any nausea. Reports intermittent fevers. Nonvaccinated for COVID. No COVID infections in the past. Denies sick contacts. Prior similar symptoms: Yes PFSH PFS Medical History Adrenal insufficiency Aortic insufficiency Atrial fibrillation Autoimmune hepatitis Chronic hyponatremia COLONOSCOPY Diverticulitis Glaucoma Hearing loss, left Hearing loss, right Heart disease Hepatitis History of left heart catheterization (LHC) (~06/24/12) History of non-ST elevation myocardial infarction (NSTEMI) HTN (hypertension) Hyperlipidemia Hypertension Hyperthyroidism Hypothyroidism Idiopathic thrombocytopenia Lupus Macular degeneration Migraines Monoclonal gammopathies NASAL POLYP REMOVED Non-smoker Nonrheumatic aortic (valve) stenosis with insufficiency Nonrheumatic mitral valve stenosis with insufficiency Osteopenia Pulmonary arterial hypertension Rheumatic fever Severe mitral regurgitation Sleep apnea 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 Tachycardia Home Medications brimonidine 0.15 % eye drops 1 drp EACH EYE BID eye drops 06/23/17 [History Last Taken 01/11/22] budesonide 3 mg capsule,delayed,extended release 3 mg PO DAILY inflammation 06/23/17 [History Last Taken 01/10/22] hydroxychloroquine 200 mg tablet 200 mg PO DAILYCM lupus 06/23/17 [History Last Taken 01/10/22] levothyroxine 75 mcg tablet 75 mcg PO DAILY thyroid 06/23/17 [History Last Taken 01/11/22] timolol maleate 0.5 % eye drops 1 drp EACH EYE DAILY eye drops 06/23/17 [History Last Taken 01/11/22] metoprolol succinate 50 mg tablet,extended release 24 hr 50 mg PO BID HEART 06/04/19 [History Last Taken 01/11/22] cholecalciferol (vitamin D3) 50 mcg (2,000 unit) capsule 2,000 unit PO DAILY SUPPLEMENT 07/30/19 [History Last Taken 01/10/22] hydrocortisone 5 mg tablet 10 mg PO DAILY steroid 07/31/19 [History Last Taken 01/10/22] aflibercept 2 mg/0.05 mL intravitreal syringe (Eylea) 2 mg intravitreal .[id number] EYE HEALTH 03/28/21 [History Last Taken 01/09/22] artificial tears solution eye drops 1 drp ophthalmic (eye) 4XD dry eyes 03/28/21 [History Last Taken Unknown] ikufaf-[id number] 12,000-38,000-60,000 unit capsule,delayed rel (Creon) 1 cap PO DAILY enzymes 04/29/21 [History Last Taken 01/10/22] Lactobacillus acidophilus 10 billion cell capsule (Probiotic) 10,000 mmu cells PO DAILY IMMUNE HEALTH 01/11/22 [History Last Taken 01/10/22] bimatoprost 0.01 % eye drops (Lumigan) 1 drp EACH EYE Q EYE HEALTH 01/11/22 [History Last Taken 01/11/22] furosemide 40 mg tablet 40 mg PO QODAY fluid pill 01/21/22 [History Last Taken 03/25/22] pantoprazole 40 mg tablet,delayed release (Protonix) 40 mg PO DAILY 03/09/22 [History Last Taken Unknown] potassium chloride 10 mEq tablet,extended release(part/cryst) 10 meq PO MOWEFR SUPPLEMENT' 03/09/22 [History Last Taken Unknown] simethicone 80 mg chewable tablet 80 mg PO TIDCM 03/25/22 [History Last Taken Unknown] Allergy/AdvReac Type Severity Reaction Status Date / Time Penicillins [PCN] Allergy Hives Verified 03/25/22 14:48 azathioprine [From Imuran] AdvReac Vomiting Verified 03/25/22 14:48 colchicine AdvReac Other Verified 03/25/22 14:48 doxycycline AdvReac Rash Verified 03/25/22 14:48 famotidine [From Pepcid] AdvReac Other Verified 03/25/22 14:48 griseofulvin AdvReac NEEDS Verified 03/25/22 14:48 [From Priti-PEG FOLLOW-UP (ultramicrosize)] Sulfa (Sulfonamide AdvReac Other Verified 03/25/22 14:48 Antibiotics) Family History Father Heart disease Pacemaker Mother Heart disease Surgical History H/O cataract extraction h/o mass removed from hip H/O tubal ligation Hx of cholecystectomy Status post colon resection Social History household members: spouse Smoking Status: Never smoker alcohol intake: never substance use type: does not use caffeine: No ROS ROS ED Constitutional Constitutional ED: Reports fever(s); Denies chills or sweats Eyes Eyes: Denies change in vision ENT ENT ED: Denies dysphagia or sore throat Cardiovascular Cardiovascular: Denies chest pain, leg edema, palpitations or racing heartbeat Respiratory/Chest Respiratory/Chest: Denies cough, dyspnea or dyspnea on exertion Gastrointestinal Gastrointestinal: Reports abdominal pain, diarrhea and nausea; Denies vomiting Genitourinary Genitourinary ED: Denies dysuria, hematuria or urinary frequency Musculoskeletal Musculoskeletal: Denies back pain, extremity pain or neck pain Integumentary Denies rash or wounds Neurologic Neurologic: Denies headache(s), paresthesias or weakness EXAM Physical Exam Const Vital Signs: 03/25/22 14:48 03/25/22 17:20 03/25/22 18:42 Temperature 100.3 F H 99 F Temperature Source Oral Oral Pulse Rate 111 H 110 H 109 H Respiratory Rate 18 28 H 20 H Blood Pressure 138/71 H 113/53 L 138/69 H Blood Pressure Mean 93 73 92 Pulse Ox 92 92 89 Oxygen Delivery Method Room Air Room Air Room Air Oxygen Flow Rate (L/min) 03/25/22 18:43 03/25/22 19:34 Temperature 99.3 F H Temperature Source Oral Pulse Rate 106 H Respiratory Rate 23 H Blood Pressure 126/58 H Blood Pressure Mean 80 Pulse Ox 95 97 Oxygen Delivery Method Nasal Cannula Nasal Cannula Oxygen Flow Rate (L/min) 2 2 Positive well nourished and well developed General Appearance ED: well developed and NAD HEENT HEENT Narrative: Mild dry mucosal membranes. normocephalic and atraumatic Eyes PERRL, EOMs intact bilaterally and conjunctivae normal General Eye ED: Yes normal appearance of both eyes Neck no lymphadenopathy and supple General: Negative for tenderness Chest Wall Chest: Negative for tenderness Resp normal respiratory effort and normal air movement Effort and Inspection: symmetric chest movement; Negative for respiratory distress Cardio regular rhythm Rate: tachycardic and other Other Details: 2+ systolic murmur Peripheral Pulses: pulses 2+ throughout GI normal to inspection, nondistended, normoactive bowel sounds GI Narrative: Tender palpation upper abdomen with no guarding or rebound. Left lower quadrant ostomy with soft stools. Palpation: Negative for guarding or rebound tenderness present Back/Spine no CVA tenderness and no thoracic nor lumbar tenderness Extremity normal to inspection General Extremety ED: Negative for edema or tenderness General Extremity: Negative for edema Neuro oriented x3 and no sensory deficits noted Sensorium / Orientation: awake and alert Skin no rashes or lesions noted and no wounds MDM MDM MDM Narrative Medical decision making narrative: Patient presenting increasing nausea and vomiting indigestion symptoms. Soft abdomen on exam normal ostomy output. Patient had elevated temperature 100.3 tachycardic. Sepsis labs were ordered. Chest x-ray reviewed by myself read by radiology noting right lower lobe infiltrate with mild small pleural effusions bilaterally. However, initially thought patient had cough symptoms, and antibiotics were ordered, however patient continued to complain any recent cough, daughter is also reports same thing. Clinically would not have pneumonia. Therefore antibiotics were discontinued. COVID-negative urine negative. White count returned at 8.5. Lactic acid 1.5. EKG sinus rhythm frequent PVCs. Troponin returned at 536. Atypical patient's symptoms, further history reported had recent cardiomyopathy follow Dr. Wilson, family reports followed up recent office, was told in 2011 she had small AR there is a cath with no interventions. This first time they knew of any coronary disease. She was given aspirin. I spoke with on-call certified travel counselor Dr. George discussed patient's atypical symptoms and history with her recent surgery back in December. He did not recommend additional anticoagulants as they are atypical, they will follow as an inpatient. I spoke with hospitalist Dr. Carrero for admission to PCU. Lab Data Attestation: I reviewed the patient's lab results. Labs: Laboratory Results - last 24 hr 03/25/22 03/25/22 03/25/22 15:20 16:00 16:00 WBC 8.5 RBC 3.88 L Hgb 11.7 L Hct 36.4 L MCV 93.8 MCH 30.2 MCHC 32.1 RDW Std Deviation 52.8 H RDW Coeff of Samreen 15.3 H Plt Count 178 MPV 10.0 Immature Gran % (Auto) 0.600 Neut % (Auto) 69.5 Lymph % (Auto) 19.3 Forrest % (Auto) 9.3 Eos % (Auto) 0.9 Baso % (Auto) 0.4 Absolute Neuts (auto) 5.9 Absolute Lymphs (auto) 1.64 Nucleated RBC % 0 PT 14.2 INR 1.1 APTT 25.7 Sodium Potassium Chloride Carbon Dioxide Anion Gap BUN Creatinine Estim Creat Clear Calc Est GFR (MDRD) Af Amer Est GFR (MDRD) Non-Af BUN/Creatinine Ratio Glucose Lactic Acid 1.5 Calcium Total Bilirubin AST ALT Alkaline Phosphatase Troponin I High Sens Total Protein Albumin Globulin Albumin/Globulin Ratio Lipase Urine Color Urine Clarity Urine pH Ur Specific [place] Urine Protein Urine Glucose (UA) Urine Ketones Urine Occult Blood Urine Nitrite Urine Bilirubin Urine Urobilinogen Ur Leukocyte Esterase Urine RBC Urine WBC Ur Squamous Epith Cells Urine Bacteria Urine Mucus 03/25/22 03/25/22 03/25/22 16:00 16:44 18:30 WBC RBC Hgb Hct MCV MCH MCHC RDW Std Deviation RDW Coeff of Samreen Plt Count MPV Immature Gran % (Auto) Neut % (Auto) Lymph % (Auto) Forrest % (Auto) Eos % (Auto) Baso % (Auto) Absolute Neuts (auto) Absolute Lymphs (auto) Nucleated RBC % PT INR APTT Sodium 132 L Potassium 3.5 Chloride 97 L Carbon Dioxide 23.0 Anion Gap 12 BUN 12 Creatinine 0.85 Estim Creat Clear Calc 40.36 Est GFR (MDRD) Af Amer 83 Est GFR (MDRD) Non-Af 68 BUN/Creatinine Ratio 14.2 Glucose 109 H Lactic Acid Calcium 9.1 Total Bilirubin 1.00 AST 20 ALT 21 Alkaline Phosphatase 64 Troponin I High Sens 536 H* 852 H* Total Protein 7.6 Albumin 3.0 L Globulin 4.6 H Albumin/Globulin Ratio 0.7 L Lipase 72 L Urine Color Yellow Urine Clarity Clear Urine pH 5.0 Ur Specific [place] 1.010 Urine Protein Negative Urine Glucose (UA) Normal Urine Ketones Negative Urine Occult Blood Negative Urine Nitrite Negative Urine Bilirubin Negative Urine Urobilinogen Normal Ur Leukocyte Esterase Negative Urine RBC 0 SEEN Urine WBC 0 SEEN Ur Squamous Epith Cells 0 SEEN Urine Bacteria 0 SEEN Urine Mucus 0 SEEN Radiography Diagnostic Testing: Clinical Impression(s) from Imaging Studies Chest X-Ray 03/25/22 15:52 IMPRESSION: 1. Moderate cardiomegaly with borderline heart failure. 2. Mild right lower lobe pneumonia. 3. Minimal pleural effusions of both costophrenic angles. 4. No other active cardiopulmonary disease. 5. Normal osseous structures. Electronically Signed: Roberto Schultz MD at 17:12 EDT , EKG Initial EKG: Attestation: I personally reviewed and interpreted this EKG as follows: Comments: Sinus rate of 110, no ST or T wave changes, frequent PVCs Discharge Plan Dx/Rx/DC Orders Clinical Impression: Atypical chest pain, Elevated troponin, Indigestion, Nausea & vomiting Disposition Disposition: Acute Care Hospital [facility] Discharge Date/Time: 03/25/22 20:18
--- NOTE | 2022-03-25 15:52 | RAD_ITS ---
STUDY: AP UPRIGHT CHEST X-RAY OF 1602 HOURS AND 03/25/2022 REASON FOR EXAM: 82-year-old female with cough. TECHNIQUE: An AP upright chest x-ray was performed per protocol. COMPARISON: None. FINDINGS: Normal osseous structures. Moderate cardiomegaly with borderline heart failure. Confluent infiltrative process in the right lower lobe compatible with a mild right lower lobe pneumonia. Small bilateral costophrenic angle pleural effusions may be present. No evidence of other infiltrates, atelectasis, or pulmonary mass lesions. RAD/Chest PA and Lateral IMPRESSION: 1. Moderate cardiomegaly with borderline heart failure. 2. Mild right lower lobe pneumonia. 3. Minimal pleural effusions of both costophrenic angles. 4. No other active cardiopulmonary disease. 5. Normal osseous structures. Electronically Signed: Roberto Schultz MD at 17:12 EDT ,
[2022-03-25 16:13] LABS: Absolute Lymphocyte Count 1.64 X10^3/uL (0.83-4.51); Absolute Neutrophil Count 5.9 X10^3/uL (2.0-7.7); Basophil# 0.03 X10^3/uL; Basophil% 0.4 % (0-1); Eosinophil# 0.08 X10^3/uL; Eosinophils% 0.9 % (0-5); Hematocrit 36.4 % (37-47); Hemoglobin 11.7 g/dL (12.0-15.0); Lymphocyte # 1.64 X10^3/ul (0.83-4.51); Lymphocyte % 19.3 % (19-41); Mean Corp Hgb Conc 32.1 g/dL (32-36); Mean Corpuscular Hgb 30.2 pg (27.0-32.0); Mean Corpuscular Volume 93.8 fL (81-99); Monocyte# 0.79 X10^3/uL; Monocyte% 9.3 % (0-10); NRBC Flagged by Analyzer 0 % (0-5); Neutrophil # 5.92 X10^3/uL (2.7-7.7); Neutrophil % 69.5 % (47-70); Platelet Count 178 K/mm3 (150-450); RBC Distribution Width CV 15.3 % (11.6-14.6); RBC Distribution Width SD 52.8 fl (35.1-43.9); Red Blood Count 3.88 M/mm3 (4.2-5.4); White Blood Count 8.5 K/mm3 (4.4-11.0)
[2022-03-25 16:16] LABS: International Normalized Ratio 1.1; Prothrombin Time (Protime)PT. 14.2 SECONDS (11.7-14.9)
[2022-03-25 16:17] LABS: Partial Thromboplast Time 25.7 Seconds (24.1-36.2)
[2022-03-25] MEDS: 0.9% Normal Saline 1,000 ML 999 ML IV (16:21)
[2022-03-25 16:34] LABS: Lactic Acid 1.5 mmol/L (0.4-1.9)
[2022-03-25 16:50] LABS: Bacteria 0 SEEN /hpf (None Seen); Mucous, Urine 0 SEEN /hpf (<or=2+); Red Blood Cells-Urine 0 SEEN /hpf (0-5); Squamous Epithelial Cells - UA 0 SEEN /hpf (5-10); White Blood Cells 0 SEEN /hpf (0-5)
[2022-03-25 16:56] LABS: Color, Urine Yellow (Yellow); Glucose, Dipstick Normal (Normal); Ketone-Dipstick Negative (Negative); Leukocyte Esterase-Dipstick Negative /ul (Negative); Nitrite-Dipstick Negative (Negative); Occult Blood-Urine Negative /ul (Negative); Protein-Dipstick Negative (Negative); Urine Bilirubin Dipstick Negative (Negative); Urine Clarity Clear (Clear); Urine Urobilinogen Normal (Normal)
[2022-03-25 18:21] LABS: ALB/GLOB Ratio 0.7 RATIO (0.9-2.4); AST(SGOT) 20 U/L (15-37); Alanine Aminotransfer ALT/SGPT 21 U/L (13-56); Alkaline Phosphatase 64 U/L (45-117); Anion Gap 12 (5-15); BUN 12 mg/dL (7-18); BUN/Creat Ratio 14.2 RATIO (10-20); Calcium,Total 9.1 mg/dL (8.5-10.1); Chloride 97 mmol/L (98-107); Creatinine, Serum 0.85 mg/dL (0.55-1.02); EST Glomerular Filtration Rate 68 mL/min (>60); Est Glom Filt Rate - Afr Amer 83 mL/min (>60); Estimated Creatinine Clearance 40.36 ml/min; Globulin 4.6 g/dL (2.2-4.2); Glucose 109 mg/dL (74-106); Lipase 72 U/L (73-393); Potassium 3.5 mmol/L (3.5-5.1); Protein, Total 7.6 g/dL (6.4-8.2); Sodium Level 132 mmol/L (136-145); Troponin-I HS 536 pg/mL (3.0-54.0)
--- NOTE | 2022-03-25 18:24 | ED.RN ---
did not walk patient d/t weakness. see troponin levels as well. notified.
[2022-03-25] MEDS: Aspirin 81 MG TAB.CHEW 324 MG PO (18:39)
[2022-03-25] MEDS: Ondansetron 4 MG/2 ML Vial IV (18:41)
--- NOTE | 2022-03-25 19:05 | ED.RN ---
notified that IV fluids slowed to KVO d/t family concerned for her heart failure.
--- NOTE | 2022-03-25 19:23 | HP.PCM.HOS_ITS ---
HPI - General General Date of Admission: 03/25/22 Date of Service: 03/25/22 Chief Complaint: nausea adn vomiting HPI Narrative LIANA VALENCIA, is a 82 F with a PMH as outlined who presents via the ED with a complaint of nausea and vomiting which had been getting worse. She had had 3 episodes of vomiting on the day of admission. She admitted to upper abdominal pain which was episodic, but denied any fever, chills, shortness of breath, cou gh, palpitations, dizziness or any other symptoms. She had perforated diverticulitis in December 2021, and had emergent surgery with colostomy. She was discharged to the TCU, from where she was discharged home on February 25. She had had indigestion symptoms for ~ 1 week and had gradually worsened; she says this was also going on in the TCU and was started on protonix. Her symptoms had not improved significantly. Vitals were BP of 138/69, HR of 109 and temp of 99F as well as respiratory rate of 20. She was saturating at 95% on room air. CBC showed hb of 11.7, wbc of 8.5, platelets of 178. Chemistry showed sodium of 132 with chloride of 97. Initial high sensitivity troponin was 536. EKG showed no acute ST changes. CXR showed moderate cardiomegaly with borderline heart failure and mild right lower lobe pneumonia as well as minimal pleural effusions of both costophrenic angles. She is being admitted to be managed for nonstemi. [facility] Medical History Adrenal insufficiency Aortic insufficiency Atrial fibrillation Autoimmune hepatitis Chronic hyponatremia COLONOSCOPY Diverticulitis Glaucoma Hearing loss, left Hearing loss, right Heart disease Hepatitis History of left heart catheterization (LHC) (~06/24/12) History of non-ST elevation myocardial infarction (NSTEMI) HTN (hypertension) Hyperlipidemia Hypertension Hyperthyroidism Hypothyroidism Idiopathic thrombocytopenia Lupus Macular degeneration Migraines Monoclonal gammopathies NASAL POLYP REMOVED Non-smoker Nonrheumatic aortic (valve) stenosis with insufficiency Nonrheumatic mitral valve stenosis with insufficiency Osteopenia Pulmonary arterial hypertension Rheumatic fever Severe mitral regurgitation Sleep apnea 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 Tachycardia Home Medications brimonidine 0.15 % eye drops 1 drp EACH EYE BID eye drops 06/23/17 [History Last Taken 01/11/22] budesonide 3 mg capsule,delayed,extended release 3 mg PO DAILY inflammation 06/23/17 [History Last Taken 01/10/22] hydroxychloroquine 200 mg tablet 200 mg PO DAILYCM lupus 06/23/17 [History Last Taken 01/10/22] levothyroxine 75 mcg tablet 75 mcg PO DAILY thyroid 06/23/17 [History Last Taken 01/11/22] timolol maleate 0.5 % eye drops 1 drp EACH EYE DAILY eye drops 06/23/17 [History Last Taken 01/11/22] metoprolol succinate 50 mg tablet,extended release 24 hr 50 mg PO BID HEART 06/04/19 [History Last Taken 01/11/22] cholecalciferol (vitamin D3) 50 mcg (2,000 unit) capsule 2,000 unit PO DAILY SUPPLEMENT 07/30/19 [History Last Taken 01/10/22] hydrocortisone 5 mg tablet 10 mg PO DAILY steroid 07/31/19 [History Last Taken 01/10/22] aflibercept 2 mg/0.05 mL intravitreal syringe (Eylea) 2 mg intravitreal .[id number] EYE HEALTH 03/28/21 [History Last Taken 01/09/22] artificial tears solution eye drops 1 drp ophthalmic (eye) 4XD dry eyes 03/28/21 [History Last Taken Unknown] cxknno-oyzpzrvx-gawqstg 12,000-38,000-60,000 unit capsule,delayed rel (Creon) 1 cap PO DAILY enzymes 04/29/21 [History Last Taken 01/10/22] Lactobacillus acidophilus 10 billion cell capsule (Probiotic) 10,000 mmu cells PO DAILY IMMUNE HEALTH 01/11/22 [History Last Taken 01/10/22] bimatoprost 0.01 % eye drops (Lumigan) 1 drp EACH EYE [facility] 01/11/22 [History Last Taken 01/11/22] furosemide 40 mg tablet 40 mg PO QODAY fluid pill 01/21/22 [History Last Taken 03/25/22] pantoprazole 40 mg tablet,delayed release (Protonix) 40 mg PO DAILY 03/09/22 [History Last Taken Unknown] potassium chloride 10 mEq tablet,extended release(part/cryst) 10 meq PO MOWEFR SUPPLEMENT' 03/09/22 [History Last Taken Unknown] simethicone 80 mg chewable tablet 80 mg PO TIDCM 03/25/22 [History Last Taken Unknown] Allergy/AdvReac Type Severity Reaction Status Date / Time Penicillins [PCN] Allergy Hives Verified 03/25/22 14:48 azathioprine [From Imuran] AdvReac Vomiting Verified 03/25/22 14:48 colchicine AdvReac Other Verified 03/25/22 14:48 doxycycline AdvReac Rash Verified 03/25/22 14:48 famotidine [From Pepcid] AdvReac Other Verified 03/25/22 14:48 griseofulvin AdvReac NEEDS Verified 03/25/22 14:48 [From Priti-PEG FOLLOW-UP (ultramicrosize)] Sulfa (Sulfonamide AdvReac Other Verified 03/25/22 14:48 Antibiotics) Family History Father Heart disease Pacemaker Mother Heart disease Surgical History H/O cataract extraction h/o mass removed from hip H/O tubal ligation Hx of cholecystectomy Status post colon resection Social History household members: spouse Smoking Status: Never smoker alcohol intake: never substance use type: does not use caffeine: No ROS Constitutional Constitutional: Denies anorexia, chills, fatigue, fever(s), malaise, night sweats or weakness Eyes Eyes: Denies change in vision ENT HEENT: Denies dysphagia, nasal congestion, nasal discharge or sore throat Cardiovascular Cardiovascular: Denies chest pain, edema, lightheadedness, orthopnea, palpitations, paroxysmal nocturnal dyspnea, rapid heart rate or syncope Respiratory/Chest Respiratory/Chest: Denies cough, productive cough, shortness of breath at rest or shortness of breath with exertion Gastrointestinal Gastrointestinal: Reports abdominal pain, nausea and vomiting; Denies coffee ground emesis, constipation, diarrhea, dyspepsia, hematemesis or loose stools Genitourinary Genitourinary: Denies burning urination, difficulty urinating, dysuria or urinary frequency Musculoskeletal Musculoskeletal: Denies back pain Neurologic Neurologic: Denies confusion, dizziness, focal weakness, headache(s) or seizures Psychiatric Psychiatric: Denies anxiety or depression Endocrine Endocrinology: Reports cold intolerance Vital Signs Vital Signs Vital Signs: 03/25/22 14:48 03/25/22 17:20 03/25/22 18:42 Temperature 100.3 F H 99 F Temperature Source Oral Oral Pulse Rate 111 H 110 H 109 H Respiratory Rate 18 28 H 20 H Blood Pressure 138/71 H 113/53 L 138/69 H Blood Pressure Mean 93 73 92 Pulse Ox 92 92 89 Oxygen Delivery Method Room Air Room Air Room Air Oxygen Flow Rate (L/min) 03/25/22 18:43 Temperature Temperature Source Pulse Rate Respiratory Rate Blood Pressure Blood Pressure Mean Pulse Ox 95 Oxygen Delivery Method Nasal Cannula Oxygen Flow Rate (L/min) 2 Weight Weight: 110 lb 7.225 oz Body Mass Index (BMI) 23.1 Physical Exam Const alert, oriented x3 and no apparent distress General Appearance: cooperative HEENT normocephalic, head/scalp atraumatic and hearing grossly normal bilaterally Mouth: oral and palatal mucosa normal Eyes PERRL, EOMs intact bilaterally and conjunctivae normal Neck no lymphadenopathy, supple and no JVD Resp normal respiratory effort, no retractions and no use of accessory muscles Cardio regular rate, regular rhythm, S1 normal heart sound, S2 normal heart sound and no murmurs GI normal to inspection, nondistended, normoactive bowel sounds, soft to palpation and non-tender Extremity normal to inspection, full ROM and no clubbing, cyanosis or edema Neuro oriented x3, CN's II-XII intact bilaterally, moves all extremities and no focal motor deficits Sensorium / Orientation: awake and alert Speech: speech normal Motor Exam: strength 5/5 throughout Psych affect normal Results Lab / Micro Data Result Diagrams: 03/25/22 16:00 03/25/22 16:00 Labs: Laboratory Results - last 24 hr 03/25/22 15:20: Lactic Acid 1.5 03/25/22 16:00: WBC 8.5, RBC 3.88 L, Hgb 11.7 L, Hct 36.4 L, MCV 93.8, MCH 30.2, MCHC 32.1, RDW Std Deviation 52.8 H, RDW Coeff of Samreen 15.3 H, Plt Count 178, MPV 10.0, Immature Gran % (Auto) 0.600, Neut % (Auto) 69.5, Lymph % (Auto) 19.3, [place] % (Auto) 9.3, Eos % (Auto) 0.9, Baso % (Auto) 0.4, Absolute Neuts (auto) 5.9, Absolute Lymphs (auto) 1.64, Nucleated RBC % 0 03/25/22 16:00: PT 14.2, INR 1.1, APTT 25.7 03/25/22 16:00: Sodium 132 L, Potassium 3.5, Chloride 97 L, Carbon Dioxide 23.0, Anion Gap 12, BUN 12, Creatinine 0.85, Estim Creat Clear Calc 40.36, Est GFR (MDRD) Af Amer 83, Est GFR (MDRD) Non-Af 68, BUN/Creatinine Ratio 14.2, Glucose 109 H, Calcium 9.1, Total Bilirubin 1.00, AST 20, ALT 21, Alkaline Phosphatase 64, Troponin I High Sens 536 H*, Total Protein 7.6, Albumin 3.0 L, Globulin 4.6 H, Albumin/Globulin Ratio 0.7 L, Lipase 72 L 03/25/22 16:44: Urine Color Yellow, Urine Clarity Clear, Urine pH 5.0, Ur Specific [place] 1.010, Urine Protein Negative, Urine Glucose (UA) Normal, Urine Ketones Negative, Urine Occult Blood Negative, Urine Nitrite Negative, Urine Bilirubin Negative, Urine Urobilinogen Normal, Ur Leukocyte Esterase Negative, Urine RBC 0 SEEN, Urine WBC 0 SEEN, Ur Squamous Epith Cells 0 SEEN, Urine Bacteria 0 SEEN, Urine Mucus 0 SEEN Micro: Microbiology 03/25/22 Unknown Nasal Secretion SARS-CoV-2 Antigen (Rapid) - Final Radiology Impression Chest X-Ray 03/25/22 15:52 IMPRESSION: 1. Moderate cardiomegaly with borderline heart failure. 2. Mild right lower lobe pneumonia. 3. Minimal pleural effusions of both costophrenic angles. 4. No other active cardiopulmonary disease. 5. Normal osseous structures. Electronically Signed: Roberto Schultz MD at 17:12 EDT , Assessment & Plan Assessment/Plan (1) Atypical chest pain: (2) Elevated troponin: (3) Nausea & vomiting: PLAN: Plan #Nonstemi * patient admitted with nausea and vomiting and epigastric pain, which could be medical claims representative of atypical features of angina in a female * initial troponin elevated at 536, EKG showed no acute ST changes * admit to PCU * cycle troponins x 2 * PO aspirin 81mg daily * had echo in January 2022 which showed EF of 65%, with moderate mitral annular calcification and moderately severe mitral valve insufficiency; RVSP of 48mmhg and diastolic dysfunction. * consult cardiology * start on therapeutic lovenox * start on high intensity statin; patient however refusing due to her history of autoimmune hepatitis * #Histroy of afib: On metoprolol. Not on anticoagulation #Autoimmune hepatitis with chronic pancreatitis * On Creon #SLE: on hydroxychloroquine #Hypothyroidism: On Synthroid #History of perforated diverticulitis: S/p colostomy. This was in December 2021. DVT prophylaxis: Lovenox CODE STATUS: full code * Patient and daughter counseled extensively about different types of CODE S TATUS including full code, DNR CCA and DNR CCA. Patient elects to be full code. * Total [id number] time 16 minutes. Charges/Coding Visit Charges Inpatient E&M: 84259 Init Hosp L3 OBSV E&M: 63714 Initial observation care L3 Procedures Hospitalists Procedures: 82354 Advncd Care Plan 30 Min
[2022-03-25 19:45] LABS: Troponin-I HS 852 pg/mL (3.0-54.0)
--- NOTE | 2022-03-25 20:25 | EKG12_ITS ---
Test Reason : am ekg Blood Pressure : / mmHG Vent. Rate : 094 BPM Atrial Rate : 094 BPM P-R Int : 146 ms QRS Dur : 082 ms QT Int : 364 ms P-R-T Axes : 063 033 -24 degrees QTc Int : 455 ms Normal sinus rhythm Minimal voltage criteria for LVH, may be normal variant ( Sokolow-Giordano ) Septal infarct , age undetermined ST & T wave abnormality, consider inferior ischemia Abnormal ECG When compared with ECG of 25-MAR-2022 20:35, MANUAL COMPARISON REQUIRED, DATA IS UNCONFIRMED Confirmed by DEJA COELLO, GARETH ([id number]), legal editor KEYLA CASTELLANOS ([id number]) on 03/28/2022 9:17:40 AM Referred By: Confirmed By:GARETH SHORT MD
--- NOTE | 2022-03-25 20:56 | NURSING ---
pt family to bring in synthroid, and Lumigan eye drops. pharmacy aware.
[2022-03-25] MEDS: BRIMONIDINE 0.15% 5 ML Bottle 1 DRP EACH EYE (22:03)
[2022-03-25] MEDS: Metoprolol(XL)Succ 50 MG Tablet PO (22:07)
[2022-03-25] MEDS: Glycerin/Hypromellose/PEG400 15 ml Bottle 1 DRP EACH EYE (22:11)
[2022-03-25 22:28] LABS: Troponin-I HS 1730 pg/mL (3.0-54.0)
[2022-03-26] VITALS (15 sets, daily range): BP systolic 95–151; BP diastolic 46–86; PULSE 61–121; RESP 18–22; TEMP 36.1–38.1; O2SAT 93–99
[2022-03-26] MEDS: Enoxaparin 60 MG/0.6 ML Syringe 50 MG SC ×2 (00:41→12:46)
[2022-03-26] MEDS: OPTH EACH EYE ×2 (00:56→21:11)
[2022-03-26] MEDS: BIMATOPROST 0.01% EACH EYE ×2 (00:56→21:11)
[2022-03-26] MEDS: 0.9% Saline Lock 10 ML Syringe IV ×3 (03:04→12:55)
[2022-03-26] MEDS: Ondansetron 4 MG/2 ML Vial IV ×2 (03:04→12:55)
[2022-03-26] MEDS: Levothyroxine 75 MCG Tablet PO (05:26)
[2022-03-26] MEDS: Acetaminophen 325 MG Tablet 650 MG PO (05:26)
[2022-03-26] MEDS: Furosemide 40 MG/4 ML Vial IV (06:16)
[2022-03-26 06:45] LABS: Absolute Lymphocyte Count 1.64 X10^3/uL (0.83-4.51); Absolute Neutrophil Count 6.2 X10^3/uL (2.0-7.7); Basophil# 0.03 X10^3/uL; Basophil% 0.3 % (0-1); Eosinophil# 0.09 X10^3/uL; Hematocrit 36.9 % (37-47); Hemoglobin 11.9 g/dL (12.0-15.0); Lymphocyte # 1.64 X10^3/ul (0.83-4.51); Lymphocyte % 18.9 % (19-41); Mean Corp Hgb Conc 32.2 g/dL (32-36); Mean Corpuscular Hgb 30.7 pg (27.0-32.0); Mean Corpuscular Volume 95.3 fL (81-99); Monocyte# 0.65 X10^3/uL; Monocyte% 7.5 % (0-10); NRBC Flagged by Analyzer 0 % (0-5); Neutrophil # 6.22 X10^3/uL (2.7-7.7); Neutrophil % 71.8 % (47-70); Platelet Count 173 K/mm3 (150-450); RBC Distribution Width CV 15.5 % (11.6-14.6); RBC Distribution Width SD 54.2 fl (35.1-43.9); Red Blood Count 3.87 M/mm3 (4.2-5.4); White Blood Count 8.7 K/mm3 (4.4-11.0)
[2022-03-26 07:10] LABS: Anion Gap 9 (5-15); BUN 9 mg/dL (7-18); Calcium,Total 8.5 mg/dL (8.5-10.1); Chloride 101 mmol/L (98-107); Creatinine, Serum 0.82 mg/dL (0.55-1.02); EST Glomerular Filtration Rate 71 mL/min (>60); Est Glom Filt Rate - Afr Amer 86 mL/min (>60); Estimated Creatinine Clearance 40.16 ml/min; Glucose 94 mg/dL (74-106); Potassium 3.4 mmol/L (3.5-5.1); Sodium Level 131 mmol/L (136-145)
[2022-03-26] MEDS: Metoprolol(XL)Succ 50 MG Tablet PO ×2 (09:05→21:12)
[2022-03-26] MEDS: Timolol 0.5% 5ML OPTH.BTL 1 DRP EACH EYE (09:06)
[2022-03-26] MEDS: BRIMONIDINE 0.15% 5 ML Bottle 1 DRP EACH EYE ×2 (09:07→21:04)
[2022-03-26] MEDS: Creon 12,000 unit DR CapSULE 1 CAP PO (09:08)
[2022-03-26] MEDS: Aspirin 81 MG TAB.CHEW PO (09:08)
[2022-03-26] MEDS: Hydroxychloroquine 200 MG Tablet PO (09:08)
[2022-03-26] MEDS: Pantoprazole Sodium 40 MG Tablet PO (09:09)
[2022-03-26] MEDS: Budesonide 3 MG CAPSULE.EC PO (09:09)
[2022-03-26] MEDS: Hydrocortisone 10 MG Tablet PO (09:09)
--- NOTE | 2022-03-26 09:36 | PCM.CONS.C ---
Assessment & Plan Assessment/Plan (1) History of non-ST elevation myocardial infarction (NSTEMI): PLAN: She had an atypical presentation with abdominal discomfort and nausea and minimal vomiting. Her cardiac enzymes are noted to be abnormal. Her last coronary evaluation was 10 years ago. At this time with the elevation in the cardiac enzymes I would recommend that we proceed with a left heart catheterization. Risk benefits alternatives have been explained to her. 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 In the meantime would institute Lovenox 1 mg/kg twice daily Start beta-lorie with Lopressor 50xl mg twice a day Baby aspirin High intensity statin (2) Nonrheumatic aortic (valve) stenosis with insufficiency: PLAN: She does have evidence of valvular heart disease with aortic regurgitation. She recently had an echocardiogram within the last 2 months. At this time I would not necessarily recommend mended repeating it. (3) Nonrheumatic mitral valve stenosis with insufficiency: PLAN: She does have evidence of mitral valve disease. Recommendation will be to continue current therapy. Depending on the findings of the heart catheterization further recommendations will be made. HPI Consult Data Date of Consult: 03/26/22 HPI Narrative HPI Narrative: LIANA VALENCIA, is a 82 F who presents to the emergency room with upper abdominal discomfort nausea and vomiting. The patient had been admitted to the hospital in January of this year where she presented with abdominal discomfort diverticulosis and needed to have a partial colectomy. The patient had been complaining of some indigestion and was seen in cardiology approximately 2 weeks ago. At that time she was noted to be fairly stable. There was also a possible notation of possible atrial fibrillation which had not been documented. Of note was the fact that the patient had had a cardiac evaluation at the [facility] in 2011 at that time it demonstrated an ejection fraction of 60%, left main was noted to be normal left anterior descending artery with 50% stenosis, first diagonal vessel with 60% stenosis, left circumflex artery was normal and right coronary artery was mildly diseased. She was also more recently in January of this year noted to have valvular heart disease with an estimated ejection fraction of 65% on echocardiogram mitral annular calcification, mild to moderate mitral regurgitation, and mild to moderate aortic regurgitation. Her ejection fraction was noted to be 65%. On her presentation to the emergency room she was noted to be minimally febrile she was mildly tachycardic and her cardiac enzymes were abnormal although she did not have any EKG changes. She continued to have abnormal cardiac enzymes. Currently she is pain-free this morning and eating breakfast. She denies any dizziness or diaphoresis near syncope or syncope. 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 Osteopenia Pulmonary arterial hypertension Rheumatic fever Severe mitral regurgitation Sleep apnea 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 Tachycardia Home Medications brimonidine 0.15 % eye drops 1 drp EACH EYE BID eye drops 06/23/17 [History Last Taken 01/11/22] budesonide 3 mg capsule,delayed,extended release 3 mg PO DAILY inflammation 06/23/17 [History Last Taken 01/10/22] hydroxychloroquine 200 mg tablet 200 mg PO DAILYCM lupus 06/23/17 [History Last Taken 01/10/22] levothyroxine 75 mcg tablet 75 mcg PO DAILY thyroid 06/23/17 [History Last Taken 01/11/22] timolol maleate 0.5 % eye drops 1 drp EACH EYE DAILY eye drops 06/23/17 [History Last Taken 01/11/22] metoprolol succinate 50 mg tablet,extended release 24 hr 50 mg PO BID HEART 06/04/19 [History Last Taken 01/11/22] cholecalciferol (vitamin D3) 50 mcg (2,000 unit) capsule 2,000 unit PO DAILY SUPPLEMENT 07/30/19 [History Last Taken 01/10/22] hydrocortisone 5 mg tablet 10 mg PO DAILY steroid 07/31/19 [History Last Taken 01/10/22] aflibercept 2 mg/0.05 mL intravitreal syringe (Eylea) 2 mg intravitreal .[id number] EYE HEALTH 03/28/21 [History Last Taken 01/09/22] artificial tears solution eye drops 1 drp ophthalmic (eye) 4XD dry eyes 03/28/21 [History Last Taken Unknown] opsfig-[id number]-[id number] 12,000-38,000-60,000 unit capsule,delayed rel (Creon) 1 cap PO DAILY enzymes 04/29/21 [History Last Taken 01/10/22] Lactobacillus acidophilus 10 billion cell capsule (Probiotic) 10,000 mmu cells PO DAILY IMMUNE HEALTH 01/11/22 [History Last Taken 01/10/22] bimatoprost 0.01 % eye drops (Lumigan) 1 drp EACH EYE Q EYE HEALTH 01/11/22 [History Last Taken 01/11/22] furosemide 40 mg tablet 40 mg PO QODAY fluid pill 01/21/22 [History Last Taken 03/25/22] pantoprazole 40 mg tablet,delayed release (Protonix) 40 mg PO DAILY 03/09/22 [History Last Taken Unknown] potassium chloride 10 mEq tablet,extended release(part/cryst) 10 meq PO MOWEFR SUPPLEMENT' 03/09/22 [History Last Taken Unknown] simethicone 80 mg chewable tablet 80 mg PO TIDCM 03/25/22 [History Last Taken Unknown] Allergy/AdvReac Type Severity Reaction Status Date / Time Penicillins [PCN] Allergy Hives Verified 03/25/22 14:48 azathioprine [From Imuran] AdvReac Vomiting Verified 03/25/22 14:48 colchicine AdvReac Other Verified 03/25/22 14:48 doxycycline AdvReac Rash Verified 03/25/22 14:48 famotidine [From Pepcid] AdvReac Other Verified 03/25/22 14:48 griseofulvin AdvReac NEEDS Verified 03/25/22 14:48 [From Priti-PEG FOLLOW-UP (ultramicrosize)] Sulfa (Sulfonamide AdvReac Other Verified 03/25/22 14:48 Antibiotics) Family History Father Heart disease Pacemaker Mother Heart disease Surgical History H/O cataract extraction h/o mass removed from hip H/O tubal ligation Hx of cholecystectomy Status post colon resection Social History household members: spouse Smoking Status: Never smoker alcohol intake: never substance use type: does not use caffeine: No ROS Constitutional Constitutional: Denies fever(s) or weight loss Eyes Eyes: Reports systems reviewed and no addt'l complaints, except as documented ENT HEENT: Reports systems reviewed and no addt'l complaints, except as documented Cardiovascular Cardiovascular: Denies chest pain at rest, chest pain with activity, dyspnea at rest, dyspnea on exertion, edema, palpitations or paroxysmal nocturnal dyspnea Respiratory/Chest Respiratory/Chest: Denies dyspnea on exertion, productive cough, shortness of breath at rest or shortness of breath with exertion Gastrointestinal Gastrointestinal: Reports nausea and vomiting; Denies change in bowel habits or weight changes Genitourinary Genitourinary: Denies difficulty urinating Musculoskeletal Musculoskeletal: Denies joint stiffness or muscle weakness Integumentary Integumentary: Denies lesions Neurologic Neurologic: Denies dizziness or syncope Psychiatric Psychiatric: Denies anxiety Endocrine Endocrinology: Denies excessive sweating or fatigue Hematologic/Lymphatic Hematologic/Lymphatic: Denies anemia Allergic/Immunologic Allergic/Immunologic: Denies seasonal rhinorrhea Physical Exam Const alert, oriented x3 and no apparent distress General Appearance: cooperative HEENT hearing grossly normal bilaterally Head and Scalp: atraumatic Eyes EOMs intact bilaterally Neck General: normal visual inspection Chest inspection of chest normal and palpation of chest normal Resp normal respiratory effort Auscultation: clear to auscultation bilaterally Cardio regular rate, regular rhythm, S1 normal heart sound and S2 normal heart sound Jugular Venous Distention: JVD Heart Sounds: murmur systolic III/ harsh left sternal border, apex and axilla GI normal to inspection, nondistended, normoactive bowel sounds Extremity normal capillary refill and no pedal edema Peripheral Pulses: Yes pulses 2+ throughout and femoral pulses present Skin no rashes or lesions noted Neuro oriented x3 and CN's II-XII intact bilaterally Psych Appearance: grossly normal and appropriate Risk Stratification Risk Stratification Applicable: Yes Age >/= 65: Yes >/= 3 CAD Risk Factors (HTN, HLD, DM, family hx of CAD, or current smoker): No Aspirin Use in the Past 7 Days: No Severe Angina (>/= episodes in 24 hours): No EKG ST Changes >/= 0.5mm: No Positive Cardiac Marker: Yes BETH Risk Stratification Score: 2 BETH % Risk: 8% Risk Objective Data Vital Signs: Vital Signs Temp Pulse Resp BP Pulse Ox O2 Del Method O2 Flow Rate 99.3 F H 99 20 H 109/64 95 Nasal Cannula 2 03/26/22 07:27 03/26/22 09:05 03/26/22 07:27 03/26/22 09:05 03/26/22 07:27 03/26/22 07:27 03/26/22 07:27 Oxygen Flow Rate (L/min) 2 Oxygen Delivery Method Nasal Cannula Weight: 106 lb 0.677 oz Body Mass Index (BMI) 22.1 Intake & Output: Intake and Output for Last 24 Hours 03/24/22 03/25/22 03/26/22 23:59 23:59 23:59 Intake Total 1000 / 1000 60 / 60 Output Total 0 / 0 Balance 1000 / 1000 60 / 60 Lab / Micro Data Result Diagrams: 03/26/22 05:26 03/26/22 05:26 Labs: Laboratory Results - last 24 hr 03/25/22 15:20: Lactic Acid 1.5 03/25/22 16:00: WBC 8.5, RBC 3.88 L, Hgb 11.7 L, Hct 36.4 L, MCV 93.8, MCH 30.2, MCHC 32.1, RDW Std Deviation 52.8 H, RDW Coeff of Samreen 15.3 H, Plt Count 178, MPV 10.0, Immature Gran % (Auto) 0.600, Neut % (Auto) 69.5, Lymph % (Auto) 19.3, Petroleum % (Auto) 9.3, Eos % (Auto) 0.9, Baso % (Auto) 0.4, Absolute Neuts (auto) 5.9, Absolute Lymphs (auto) 1.64, Nucleated RBC % 0 03/25/22 16:00: PT 14.2, INR 1.1, APTT 25.7 03/25/22 16:00: Sodium 132 L, Potassium 3.5, Chloride 97 L, Carbon Dioxide 23.0, Anion Gap 12, BUN 12, Creatinine 0.85, Estim Creat Clear Calc 40.36, Est GFR (MDRD) Af Amer 83, Est GFR (MDRD) Non-Af 68, BUN/Creatinine Ratio 14.2, Glucose 109 H, Calcium 9.1, Total Bilirubin 1.00, AST 20, ALT 21, Alkaline Phosphatase 64, Troponin I High Sens 536 H*, Total Protein 7.6, Albumin 3.0 L, Globulin 4.6 H, Albumin/Globulin Ratio 0.7 L, Lipase 72 L 03/25/22 16:44: Urine Color Yellow, Urine Clarity Clear, Urine pH 5.0, Ur Specific [place] 1.010, Urine Protein Negative, Urine Glucose (UA) Normal, Urine Ketones Negative, Urine Occult Blood Negative, Urine Nitrite Negative, Urine Bilirubin Negative, Urine Urobilinogen Normal, Ur Leukocyte Esterase Negative, Urine RBC 0 SEEN, Urine WBC 0 SEEN, Ur Squamous Epith Cells 0 SEEN, Urine Bacteria 0 SEEN, Urine Mucus 0 SEEN 03/25/22 18:30: Troponin I High Sens 852 H* 03/25/22 21:44: Troponin I High Sens 1730 H* 03/26/22 05:26: WBC 8.7, RBC 3.87 L, Hgb 11.9 L, Hct 36.9 L, MCV 95.3, MCH 30.7, MCHC 32.2, RDW Std Deviation 54.2 H, RDW Coeff of Samreen 15.5 H, Plt Count 173, MPV 10.0, Immature Gran % (Auto) 0.500, Neut % (Auto) 71.8 H, Lymph % (Auto) 18.9 L, Petroleum % (Auto) 7.5, Eos % (Auto) 1.0, Baso % (Auto) 0.3, Absolute Neuts (auto) 6.2, Absolute Lymphs (auto) 1.64, Nucleated RBC % 0 03/26/22 05:26: Sodium 131 L, Potassium 3.4 L, Chloride 101, Carbon Dioxide 21.0, Anion Gap 9, BUN 9, Creatinine 0.82, Estim Creat Clear Calc 40.16, Est GFR (MDRD) Af Amer 86, Est GFR (MDRD) Non-Af 71, BUN/Creatinine Ratio 11.0, Glucose 94, Calcium 8.5 Micro: Microbiology 03/25/22 16:44 Urine, Catheterized Urine Culture - Preliminary Culture exhibits no growth. 03/25/22 Unknown Nasal Secretion SARS-CoV-2 Antigen (Rapid) - Final Cardiology Labs/Tests 03/25/22 15:20: Lactic Acid 1.5 03/25/22 16:00: WBC 8.5, RBC 3.88 L, Hgb 11.7 L, Hct 36.4 L, MCV 93.8, MCH 30.2, MCHC 32.1, Plt Count 178, MPV 10.0, Immature Gran % (Auto) 0.600, Neut % (Auto) 69.5, Lymph % (Auto) 19.3, Petroleum % (Auto) 9.3, Eos % (Auto) 0.9, Baso % (Auto) 0.4, Absolute Neuts (auto) 5.9, Nucleated RBC % 0 03/25/22 16:00: PT 14.2, INR 1.1, APTT 25.7 03/25/22 16:00: Sodium 132 L, Potassium 3.5, Chloride 97 L, Carbon Dioxide 23.0, Anion Gap 12, BUN 12, Creatinine 0.85, Est GFR (MDRD) Af Amer 83, Est GFR (MDRD) Non-Af 68, BUN/Creatinine Ratio 14.2, Glucose 109 H, Calcium 9.1, Total Bilirubin 1.00 03/25/22 16:44: Urine Color Yellow, Urine Clarity Clear, Urine pH 5.0, Ur Specific [place] 1.010, Urine Protein Negative, Urine Glucose (UA) Normal, Urine Ketones Negative, Urine Occult Blood Negative, Urine Nitrite Negative, Urine Bilirubin Negative, Urine Urobilinogen Normal, Ur Leukocyte Esterase Negative, Urine RBC 0 SEEN, Urine WBC 0 SEEN 03/26/22 05:26: WBC 8.7, RBC 3.87 L, Hgb 11.9 L, Hct 36.9 L, MCV 95.3, MCH 30.7, MCHC 32.2, Plt Count 173, MPV 10.0, Immature Gran % (Auto) 0.500, Neut % (Auto) 71.8 H, Lymph % (Auto) 18.9 L, Petroleum % (Auto) 7.5, Eos % (Auto) 1.0, Baso % (Auto) 0.3, Absolute Neuts (auto) 6.2, Nucleated RBC % 0 03/26/22 05:26: Sodium 131 L, Potassium 3.4 L, Chloride 101, Carbon Dioxide 21.0, Anion Gap 9, BUN 9, Creatinine 0.82, Est GFR (MDRD) Af Amer 86, Est GFR (MDRD) Non-Af 71, BUN/Creatinine Ratio 11.0, Glucose 94, Calcium 8.5 Rhythm: EKG: ECHO: Stress Test: Cardiac Cath: PCI: CT Surgery: Holter monitor: EPS: PPM: CXR: Chest CT Scan: Radiography Diagnostic Testing: Radiology Impression Chest X-Ray 03/25/22 15:52 IMPRESSION: 1. Moderate cardiomegaly with borderline heart failure. 2. Mild right lower lobe pneumonia. 3. Minimal pleural effusions of both costophrenic angles. 4. No other active cardiopulmonary disease. 5. Normal osseous structures. Electronically Signed: Roberto Schultz MD at 17:12 EDT ,
--- NOTE | 2022-03-26 11:12 | PN.HOSP_ITS ---
Documented by User: No Santos NP, REAL ESTATE DEVELOPMENT MANAGER-C 03/26/22 11:20 Subjective Subjective Patient seen and examined. Denies chest pain. States she had indigestion symptoms prior to coming in. Now complains of gas pains. Denies shortness of breath. Objective Data Objective Data Vital Signs: Vital Signs Temp Pulse Resp BP Pulse Ox O2 Del Method O2 Flow Rate 97.6 F L 95 20 H 111/56 L 99 Nasal Cannula 2 03/26/22 09:35 03/26/22 09:35 03/26/22 09:35 03/26/22 09:35 03/26/22 09:35 03/26/22 09:35 03/26/22 09:35 Oxygen Flow Rate (L/min) 2 Oxygen Delivery Method Nasal Cannula Weight: 106 lb 0.677 oz Body Mass Index (BMI) 22.1 Intake & Output: Intake and Output for Last 24 Hours 03/24/22 03/25/22 03/26/22 23:59 23:59 23:59 Intake Total 1000 / 1000 60 / 60 Output Total 0 / 0 Balance 1000 / 1000 60 / 60 Lab / Micro Data Result Diagrams: 03/26/22 05:26 03/26/22 05:26 Labs: Laboratory Results - last 24 hr 03/25/22 15:20: Lactic Acid 1.5 03/25/22 16:00: WBC 8.5, RBC 3.88 L, Hgb 11.7 L, Hct 36.4 L, MCV 93.8, MCH 30.2, MCHC 32.1, RDW Std Deviation 52.8 H, RDW Coeff of Samreen 15.3 H, Plt Count 178, MPV 10.0, Immature Gran % (Auto) 0.600, Neut % (Auto) 69.5, Lymph % (Auto) 19.3, Miner % (Auto) 9.3, Eos % (Auto) 0.9, Baso % (Auto) 0.4, Absolute Neuts (auto) 5.9, Absolute Lymphs (auto) 1.64, Nucleated RBC % 0 03/25/22 16:00: PT 14.2, INR 1.1, APTT 25.7 03/25/22 16:00: Sodium 132 L, Potassium 3.5, Chloride 97 L, Carbon Dioxide 23.0, Anion Gap 12, BUN 12, Creatinine 0.85, Estim Creat Clear Calc 40.36, Est GFR (MDRD) Af Amer 83, Est GFR (MDRD) Non-Af 68, BUN/Creatinine Ratio 14.2, Glucose 109 H, Calcium 9.1, Total Bilirubin 1.00, AST 20, ALT 21, Alkaline Phosphatase 64, Troponin I High Sens 536 H*, Total Protein 7.6, Albumin 3.0 L, Globulin 4.6 H, Albumin/Globulin Ratio 0.7 L, Lipase 72 L 03/25/22 16:44: Urine Color Yellow, Urine Clarity Clear, Urine pH 5.0, Ur Specific [place] 1.010, Urine Protein Negative, Urine Glucose (UA) Normal, Urine Ketones Negative, Urine Occult Blood Negative, Urine Nitrite Negative, Urine Bilirubin Negative, Urine Urobilinogen Normal, Ur Leukocyte Esterase Negative, Urine RBC 0 SEEN, Urine WBC 0 SEEN, Ur Squamous Epith Cells 0 SEEN, Urine Bacteria 0 SEEN, Urine Mucus 0 SEEN 03/25/22 18:30: Troponin I High Sens 852 H* 03/25/22 21:44: Troponin I High Sens 1730 H* 03/26/22 05:26: WBC 8.7, RBC 3.87 L, Hgb 11.9 L, Hct 36.9 L, MCV 95.3, MCH 30.7, MCHC 32.2, RDW Std Deviation 54.2 H, RDW Coeff of Samreen 15.5 H, Plt Count 173, MPV 10.0, Immature Gran % (Auto) 0.500, Neut % (Auto) 71.8 H, Lymph % (Auto) 18.9 L, Miner % (Auto) 7.5, Eos % (Auto) 1.0, Baso % (Auto) 0.3, Absolute Neuts (auto) 6.2, Absolute Lymphs (auto) 1.64, Nucleated RBC % 0 03/26/22 05:26: Sodium 131 L, Potassium 3.4 L, Chloride 101, Carbon Dioxide 21.0, Anion Gap 9, BUN 9, Creatinine 0.82, Estim Creat Clear Calc 40.16, Est GFR (MDRD) Af Amer 86, Est GFR (MDRD) Non-Af 71, BUN/Creatinine Ratio 11.0, Glucose 94, Calcium 8.5 Micro: Microbiology 03/25/22 16:44 Urine, Catheterized Urine Culture - Preliminary Culture exhibits no growth. 03/25/22 Unknown Nasal Secretion SARS-CoV-2 Antigen (Rapid) - Final Radiography Diagnostic Testing: Radiology Impression Chest X-Ray 03/25/22 15:52 IMPRESSION: 1. Moderate cardiomegaly with borderline heart failure. 2. Mild right lower lobe pneumonia. 3. Minimal pleural effusions of both costophrenic angles. 4. No other active cardiopulmonary disease. 5. Normal osseous structures. Electronically Signed: Roberto Schultz MD at 17:12 EDT , Physical Exam Const alert and oriented x3 HEENT normocephalic and moist oral mucous membranes Eyes PERRL, EOMs intact bilaterally and conjunctivae normal Neck no lymphadenopathy Resp normal respiratory effort and clear to auscultation bilaterally Cardio regular rate, regular rhythm and no murmurs Peripheral Pulses: pulses 2+ throughout GI normal to inspection, nondistended, normoactive bowel sounds, non-tender and non-distended Extremity normal to inspection Skin no rashes or lesions noted Lesions: no lesions Rashes: no rashes Trauma: no lacerations or abrasions Neuro CN's II-XII intact bilaterally, no focal motor deficits, no sensory deficits noted and deep tendon reflexes 2+ bilaterally Psych mental status grossly normal and affect normal Assessment & Plan Assessment/Plan (1) Elevated troponin: PLAN: Plan 1. NSTEMI-cardiology consulted. Continue therapeutic Lovenox initiated on beta- lorie. Aspirin, statin. Plan for heart cath in a.m. Echocardiogram 01/15/2022 demonstrated an EF of 65%, moderately severe mitral valve insufficiency, RVSP estimated to be 48 mmHg. 2. History of A. fib-continue metoprolol. Not on anticoagulation. 3. 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 4. SLE-on hydroxychloroquine. 5. History of adrenal insufficiency-on hydrocortisone. 6. Hypothyroid-continue Synthroid. 7. History of perforated diverticulitis-status post colostomy. 8. Severe protein calorie malnutrition-as evidenced by cachectic appearance with muscle and fat loss. Dietitian consult. DVT prophylaxis-Lovenox subcu This patient was seen by VADIM Fish under the supervision of Dr. Sofia. Documented by User: Dr. Dao Sofia MD 03/26/22 12:25 Objective Data Lab / Micro Data Result Diagrams: 03/26/22 05:26 03/26/22 05:26 Assessment & Plan Assessment/Plan (1) Elevated troponin: Addt'l Comments This patient was seen in conjunction with VADIM Fish . I have independently interviewed and examined the patient and reviewed pertinent historical, laboratory, and other data. Please refer to VADIM Fish note for details of this patient's presentation, findings, and recommendations. I have reviewed VADIM Fish note and concur with documented findings. In brief, patient is a an 83-year-old lady who presented with indigestion. P atient serial cardiac enzymes came back consistent with acute non-STEMI treatment initiated per protocol admitted to a monitored bed. Consult was placed to cardiology plans for patient to undergo left heart catheterization on 03/27/2022 with possible intervention if indicated Physical Examination: GENERAL: cooperative HEENT: Atraumatic; EYES; Anicteric, Normal Conjunctiva NECK; supple, normal thyroid, RESPIRATORY: Diminished to auscultation CARDIOVASCULAR: Regular S1 S2, GI: soft, normoactive bowel sounds, : No Renal angle tenderness; EXTREMITIES: No edema, no clubbing, MUSCULOSKELETAL: no muscle wasting NEURO: Awake; no lateralizing signs. SKIN: No Rash PSYCH; Flat affect Assessment: 1. Acute non-STEMI 2. Paroxysmal A. fib 3. SLE 4. Adrenal insufficiency 5. Hypothyroidism 6. History of perforated diverticulitis status post colostomy 7. History of autoimmune pancreatitis 8. Severe protein calorie malnutrition 9. DVT prophylaxis Recommendations: 1. I have discussed the results of my overview and impressions with the patient 2. Options for management were reviewed Total time spent by myself and the advanced practice practitioner evaluating patient, reviewing labs, subsequent management decisions, discussion with patient as well as other providers 45 minutes ( 25 of which was spent by myself) Charges/Coding Visit Charges Inpatient E&M: 95174 Subs Hosp L3
[2022-03-26] MEDS: Glycerin/Hypromellose/PEG400 15 ml Bottle 1 DRP EACH EYE ×3 (12:46→21:12)
--- NOTE | 2022-03-26 19:14 | NURSING ---
Charting reviewed with Cristino Terrazas RN
[2022-03-27] VITALS (27 sets, daily range): BP systolic 110–139; BP diastolic 47–70; PULSE 88–102; RESP 18–33; TEMP 36.8–37.8; O2SAT 91–100
--- NOTE | 2022-03-27 05:00 | EKG12_ITS ---
Test Reason : CP ADMIT Blood Pressure : / mmHG Vent. Rate : 108 BPM Atrial Rate : 108 BPM P-R Int : 136 ms QRS Dur : 084 ms QT Int : 370 ms P-R-T Axes : 063 024 003 degrees QTc Int : 495 ms Sinus tachycardia with frequent Premature ventricular complexes Possible Left atrial enlargement Left ventricular hypertrophy with repolarization abnormality ( Lovell product ) Abnormal ECG When compared with ECG of 25-MAR-2022 15:43, MANUAL COMPARISON REQUIRED, DATA IS UNCONFIRMED Confirmed by DEJA COELLO, GARETH ([id number]), map editor KEYLA CASTELLANOS ([id number]) on 03/28/2022 9:17:53 AM Referred By: Confirmed By:GARETH SHORT MD
[2022-03-27 06:05] LABS: Absolute Lymphocyte Count 1.37 X10^3/uL (0.83-4.51); Absolute Neutrophil Count 4.6 X10^3/uL (2.0-7.7); Basophil# 0.02 X10^3/uL; Basophil% 0.3 % (0-1); Eosinophil# 0.12 X10^3/uL; Eosinophils% 1.8 % (0-5); Hemoglobin 11.1 g/dL (12.0-15.0); Lymphocyte # 1.37 X10^3/ul (0.83-4.51); Lymphocyte % 20.2 % (19-41); Mean Corp Hgb Conc 33.6 g/dL (32-36); Mean Corpuscular Hgb 31.1 pg (27.0-32.0); Mean Corpuscular Volume 92.4 fL (81-99); Mean Platelet Vol. 9.5 fl (6.2-12.0); Monocyte# 0.59 X10^3/uL; Monocyte% 8.7 % (0-10); NRBC Flagged by Analyzer 0 % (0-5); Neutrophil # 4.64 X10^3/uL (2.7-7.7); Neutrophil % 68.3 % (47-70); Platelet Count 157 K/mm3 (150-450); RBC Distribution Width SD 51.4 fl (35.1-43.9); Red Blood Count 3.57 M/mm3 (4.2-5.4); White Blood Count 6.8 K/mm3 (4.4-11.0)
[2022-03-27] MEDS: Metoprolol(XL)Succ 50 MG Tablet PO ×2 (06:07→20:54)
[2022-03-27] MEDS: Aspirin 81 MG TAB.CHEW PO (06:07)
[2022-03-27] MEDS: Levothyroxine 75 MCG Tablet PO (06:07)
[2022-03-27 06:14] LABS: International Normalized Ratio 1.2; Prothrombin Time (Protime)PT. 15.2 SECONDS (11.7-14.9)
[2022-03-27] MEDS: 0.9% Normal Saline 1,000 ML 15 ML IV (06:15)
[2022-03-27 06:36] LABS: Anion Gap 10 (5-15); BUN 13 mg/dL (7-18); BUN/Creat Ratio 18.6 RATIO (10-20); Calcium,Total 8.3 mg/dL (8.5-10.1); Chloride 97 mmol/L (98-107); EST Glomerular Filtration Rate 85 mL/min (>60); Est Glom Filt Rate - Afr Amer 103 mL/min (>60); Estimated Creatinine Clearance 32.94 ml/min; Glucose 82 mg/dL (74-106); Potassium 3.6 mmol/L (3.5-5.1); Sodium Level 131 mmol/L (136-145)
--- NOTE | 2022-03-27 07:32 | NURSING ---
This RN gave report to labor utilization superintendent RN.
[2022-03-27] MEDS: 0.9% Normal Saline 1,000 ML 50 ML IV (09:11)
--- NOTE | 2022-03-27 10:50 | CASEMGMT ---
[facility] aware that pt to transfer to [facility]. Dinesh TURCIOS CM
[2022-03-27] MEDS: Timolol 0.5% 5ML OPTH.BTL 1 DRP EACH EYE (10:52)
[2022-03-27] MEDS: BRIMONIDINE 0.15% 5 ML Bottle 1 DRP EACH EYE ×2 (10:53→20:55)
[2022-03-27] MEDS: Glycerin/Hypromellose/PEG400 15 ml Bottle 1 DRP EACH EYE ×3 (11:21→20:55)
--- NOTE | 2022-03-27 12:25 | PCM.DC.SUM ---
Documented by User: No Santos NP, SQL REPORT ANALYST-C 03/28/22 13:31 Providers Date of Admission: 03/25/22 Date of Discharge: 03/28/22 Primary Care Physician: Dr. Ashvin Cardenas MD Consultations 03/25/22 20:20 Consult: Cardiology Routine Consulting Provider: Sagar George Reason for Consult: elevated troponin EMERGENT Consult: No MD Notified: Yes Date Notified: 03/25/22 Time Notified: 19:43 Method of Notification: Text Reason For Visit: ELEVATED TROPONIN Diagnosis Discharge Diagnosis (1) Elevated troponin: Status: Acute Code(s): R77.8 - Other specified abnormalities of plasma proteins Medications at Discharge Home Medications brimonidine 0.15 % eye drops 1 drp EACH EYE BID eye drops 06/23/17 budesonide 3 mg capsule,delayed,extended release 3 mg PO DAILY inflammation 06/23/17 hydroxychloroquine 200 mg tablet 200 mg PO DAILYCM lupus 06/23/17 levothyroxine 75 mcg tablet 75 mcg PO DAILY thyroid 06/23/17 timolol maleate 0.5 % eye drops 1 drp EACH EYE DAILY eye drops 06/23/17 metoprolol succinate 50 mg tablet,extended release 24 hr 50 mg PO BID HEART 06/04/19 cholecalciferol (vitamin D3) 50 mcg (2,000 unit) capsule 2,000 unit PO DAILY SUPPLEMENT 07/30/19 hydrocortisone 5 mg tablet 10 mg PO DAILY steroid 07/31/19 aflibercept 2 mg/0.05 mL intravitreal syringe (Eylea) 2 mg intravitreal .[id number] EYE HEALTH 03/28/21 artificial tears solution eye drops 1 drp ophthalmic (eye) 4XD dry eyes 03/28/21 [id number] 12,000-38,000-60,000 unit capsule,delayed rel (Creon) 1 cap PO DAILY enzymes 04/29/21 Lactobacillus acidophilus 10 billion cell capsule (Probiotic) 10,000 mmu cells PO DAILY IMMUNE HEALTH 01/11/22 bimatoprost 0.01 % eye drops (Lumigan) 1 drp EACH EYE Q EYE HEALTH 01/11/22 furosemide 40 mg tablet 40 mg PO QODAY fluid pill 01/21/22 pantoprazole 40 mg tablet,delayed release (Protonix) 40 mg PO DAILY 03/09/22 potassium chloride 10 mEq tablet,extended release(part/cryst) 10 meq PO MOWEFR SUPPLEMENT' 03/09/22 simethicone 80 mg chewable tablet 80 mg PO TIDCM 03/25/22 Hospital Course Operations None Procedures Cardiac catheterization Summary of Care Provided Hospital Course: Patient is an 82-year-old female admitted 03/25/2022 due to nausea, vomiting and indigestion. 1. NSTEMI-cardiology consulted.? Therapeutic Lovenox initiated on beta-rosalind.? Aspirin, statin.?Echocardiogram 01/15/2022 demonstrated an EF of 65%, moderately severe mitral valve insufficiency, RVSP estimated to be 48 mmHg. 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 Cardiology recommending transfer to tertiary facility for coronary revascularization and mitral valve evaluation. Final cath report pending. Transfer to [facility] for ongoing evaluation and management. 2. History of A. fib-continue metoprolol.? Not on anticoagulation. 3. 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 4. SLE-on hydroxychloroquine. 5. History of adrenal insufficiency-on hydrocortisone. 6. Hypothyroid-continue Synthroid. 7. History of perforated diverticulitis-status post colostomy. 8. Severe protein calorie malnutrition-as evidenced by cachectic appearance with muscle and fat loss.? Dietitian consult. Physical Exam Const alert and oriented x3 HEENT normocephalic and moist oral mucous membranes Eyes PERRL, EOMs intact bilaterally and conjunctivae normal Neck no lymphadenopathy Resp normal respiratory effort and clear to auscultation bilaterally Cardio regular rate, regular rhythm and no murmurs Peripheral Pulses: pulses 2+ throughout GI normal to inspection, nondistended, normoactive bowel sounds, non-tender and non-distended Extremity normal to inspection Skin no rashes or lesions noted Lesions: no lesions Rashes: no rashes Trauma: no lacerations or abrasions Neuro CN's II-XII intact bilaterally, no focal motor deficits, no sensory deficits noted and deep tendon reflexes 2+ bilaterally Psych mental status grossly normal and affect normal Patient seen and examined prior to discharge. Physical assessment as noted above. Transfer to [facility] medical facility for ongoing cardiac evaluation and management. This patient was seen by VADIM Fish under the supervision of Dr. Bowman. Time spent examining patient, reviewing data and subsequent management of care: 24 minutes Weight / BMI Weight Weight: 106 lb 0.677 oz Body Mass Index (BMI) 22.1 ABG / Lab / Microbiology Data Result Diagrams: 03/27/22 05:52 03/27/22 05:52 Laboratory: Laboratory Results - last 24 hr 03/27/22 05:52: WBC 6.8, RBC 3.57 L, Hgb 11.1 L, Hct 33.0 L, MCV 92.4, MCH 31.1, MCHC 33.6, RDW Std Deviation 51.4 H, RDW Coeff of Samreen 15.0 H, Plt Count 157, MPV 9.5, Immature Gran % (Auto) 0.700, Neut % (Auto) 68.3, Lymph % (Auto) 20.2, [place] % (Auto) 8.7, Eos % (Auto) 1.8, Baso % (Auto) 0.3, Absolute Neuts (auto) 4.6, Absolute Lymphs (auto) 1.37, Nucleated RBC % 0 03/27/22 05:52: PT 15.2 H, INR 1.2 03/27/22 05:52: Sodium 131 L, Potassium 3.6, Chloride 97 L, Carbon Dioxide 24.0, Anion Gap 10, BUN 13, Creatinine 0.70, Estim Creat Clear Calc 32.94, Est GFR (MDRD) Af Amer 103, Est GFR (MDRD) Non-Af 85, BUN/Creatinine Ratio 18.6, Glucose 82, Calcium 8.3 L Microbiology: Microbiology 03/25/22 16:44 Urine, Catheterized Urine Culture - Preliminary Culture exhibits no growth. 03/25/22 Unknown Nasal Secretion SARS-CoV-2 Antigen (Rapid) - Final Meaningful Use Info Meaningful Use Diagnoses (Choose all that apply): AMI AMI/Post PCI/Angioplasty Aspirin given w/in 24hrs of arrival?: Yes ASA at discharge?: Yes Statins at discharge?: Yes Janes/ARB at discharge?: No Reason Janes/ARB not ordered:: Not indicated Beta Rosalind at discharge?: Yes Done w/ Acute DE measure.: Yes Discharge Plan Admission Admit Date/Time: 03/25/22 19:40 Primary Reason for Your Visit: NSTEMI Attending Provider: Ashvin Bowman Primary Care Provider: Ashvin Cardenas Consulting Providers: Sagar George ; Janina Carrero ; Dao Sofia Discharge Orders/Prescriptions Prescriptions: No Action potassium chloride 10 mEq tablet,ER particles/crystals 10 meq PO MOWEFR pantoprazole [Protonix] 40 mg tablet,delayed release (DR/EC) 40 mg PO DAILY levothyroxine 75 MCG tablet 75 mcg PO DAILY Rx Instructions: name brand synthroid budesonide 3 MG capsule,delayed,extend.release 3 mg PO DAILY hydroxychloroquine 200 MG tablet 200 mg PO DAILYCM brimonidine 1 DROP bottle 1 drp EACH EYE BID timolol maleate 1 DROP drops 1 drp EACH EYE DAILY metoprolol succinate 50 MG tablet extended release 24 hr 50 mg PO BID cholecalciferol (vitamin D3) 2,000 UNIT capsule 2,000 unit PO DAILY hydrocortisone 5 MG tablet 10 mg PO DAILY Label Comments: TAKE 1 AND 1/2 TABLET BY MOUTH ONCE DAILY AND NEEDED STRESS DOSE artificial tears solution Drops 1 drp OPHTHALMIC (EYE) 4XD Eylea 2 mg/0.05 mL Syringe 2 mg INTRAVITREAL .[id number] Rx Instructions: 02/27/22 Creon 12,000-38,000 -60,000 unit capsule,delayed release(DR/EC) 1 cap PO DAILY Lumigan 0.01 % Drops 1 drp EACH EYE QHS Probiotic 10 billion cell Capsule 10,000 mmu cells PO DAILY furosemide 40 mg tablet 40 mg PO QODAY simethicone 80 mg Tablet,Chewable 80 mg PO TIDCM Referrals / Follow Up: Ashvin Cardenas MD [Primary Care Provider] - Disposition Disposition (needs filled in before D/C Order can be placed): [facility] Documented by User: Dr. Ashvin Bowman DO 03/28/22 14:46 Providers Date of Admission: 03/25/22 Reason For Visit: ELEVATED TROPONIN Diagnosis Discharge Diagnosis (1) Elevated troponin: Status: Acute Code(s): R77.8 - Other specified abnormalities of plasma proteins Medications at Discharge Home Medications brimonidine 0.15 % eye drops 1 drp EACH EYE BID eye drops 06/23/17 budesonide 3 mg capsule,delayed,extended release 3 mg PO DAILY inflammation 06/23/17 hydroxychloroquine 200 mg tablet 200 mg PO DAILYCM lupus 06/23/17 levothyroxine 75 mcg tablet 75 mcg PO DAILY thyroid 06/23/17 timolol maleate 0.5 % eye drops 1 drp EACH EYE DAILY eye drops 06/23/17 metoprolol succinate 50 mg tablet,extended release 24 hr 50 mg PO BID HEART 06/04/19 cholecalciferol (vitamin D3) 50 mcg (2,000 unit) capsule 2,000 unit PO DAILY SUPPLEMENT 07/30/19 hydrocortisone 5 mg tablet 10 mg PO DAILY steroid 07/31/19 aflibercept 2 mg/0.05 mL intravitreal syringe (Eylea) 2 mg intravitreal .[id number] EYE HEALTH 03/28/21 artificial tears solution eye drops 1 drp ophthalmic (eye) 4XD dry eyes 03/28/21 [id number] 12,000-38,000-60,000 unit capsule,delayed rel (Creon) 1 cap PO DAILY enzymes 04/29/21 Lactobacillus acidophilus 10 billion cell capsule (Probiotic) 10,000 mmu cells PO DAILY IMMUNE HEALTH 01/11/22 bimatoprost 0.01 % eye drops (Lumigan) 1 drp EACH EYE Q EYE HEALTH 01/11/22 furosemide 40 mg tablet 40 mg PO QODAY fluid pill 01/21/22 pantoprazole 40 mg tablet,delayed release (Protonix) 40 mg PO DAILY 03/09/22 potassium chloride 10 mEq tablet,extended release(part/cryst) 10 meq PO MOWEFR SUPPLEMENT' 03/09/22 simethicone 80 mg chewable tablet 80 mg PO TIDCM 03/25/22 Hospital Course Summary of Care Provided Hospital Course: Patient is an 82-year-old female admitted 03/25/2022 due to nausea, vomiting and indigestion. 1. NSTEMI-cardiology consulted.? Therapeutic Lovenox initiated on beta-rosalind.? Aspirin, statin.?Echocardiogram 01/15/2022 demonstrated an EF of 65%, moderately severe mitral valve insufficiency, RVSP estimated to be 48 mmHg. 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 Cardiology recommending transfer to tertiary facility for coronary revascularization and mitral valve evaluation. Final cath report pending. Transfer to [facility] for ongoing evaluation and management. 2. History of A. fib-continue metoprolol.? Not on anticoagulation. 3. 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 4. SLE-on hydroxychloroquine. 5. History of adrenal insufficiency-on hydrocortisone. 6. Hypothyroid-continue Synthroid. 7. History of perforated diverticulitis-status post colostomy. 8. Severe protein calorie malnutrition-as evidenced by cachectic appearance with muscle and fat loss.? Dietitian consult. Physical Exam Const alert and oriented x3 HEENT normocephalic and moist oral mucous membranes Eyes PERRL, EOMs intact bilaterally and conjunctivae normal Neck no lymphadenopathy Resp normal respiratory effort and clear to auscultation bilaterally Cardio regular rate, regular rhythm and no murmurs Peripheral Pulses: pulses 2+ throughout GI normal to inspection, nondistended, normoactive bowel sounds, non-tender and non-distended Extremity normal to inspection Skin no rashes or lesions noted Lesions: no lesions Rashes: no rashes Trauma: no lacerations or abrasions Neuro CN's II-XII intact bilaterally, no focal motor deficits, no sensory deficits noted and deep tendon reflexes 2+ bilaterally Psych mental status grossly normal and affect normal Patient seen and examined prior to discharge. Physical assessment as noted above. Transfer to [facility] medical facility for ongoing cardiac evaluation and management. This patient was seen by VADIM Fish under the supervision of Dr. Bowman. Time spent examining patient, reviewing data and subsequent management of care: 24 minutes Patient seen and examined independently. Data and vitals reviewed. I agree with the above note by the nurse practitioner. Assessment and plan 1.? Non-ST elevation myocardial infarction: Patient underwent a left heart catheterization today which showed left main stenosis of 75%, diagonal artery with 75% stenosis, 95% stenosis of the mid RCA.? Recommendation cardiology is transfer to tertiary facility for high risk PCI or CABG.? Medical management with enoxaparin, aspirin.? [facility]ing on acceptance to [facility]. ABG / Lab / Microbiology Data Result Diagrams: 03/27/22 05:52 03/27/22 05:52 Discharge Plan Admission Admit Date/Time: 03/25/22 19:40 Primary Reason for Your Visit: NSTEMI Attending Provider: Ashvin Bowman Primary Care Provider: Ashvin Cardenas Consulting Providers: Sagar George ; Janina Carrero ; Dao Sofia Discharge Orders/Prescriptions Prescriptions: No Action potassium chloride 10 mEq tablet,ER particles/crystals 10 meq PO MOWEFR pantoprazole [Protonix] 40 mg tablet,delayed release (DR/EC) 40 mg PO DAILY levothyroxine 75 MCG tablet 75 mcg PO DAILY Rx Instructions: name brand synthroid budesonide 3 MG capsule,delayed,extend.release 3 mg PO DAILY hydroxychloroquine 200 MG tablet 200 mg PO DAILYCM brimonidine 1 DROP bottle 1 drp EACH EYE BID timolol maleate 1 DROP drops 1 drp EACH EYE DAILY metoprolol succinate 50 MG tablet extended release 24 hr 50 mg PO BID cholecalciferol (vitamin D3) 2,000 UNIT capsule 2,000 unit PO DAILY hydrocortisone 5 MG tablet 10 mg PO DAILY Label Comments: TAKE 1 AND 1/2 TABLET BY MOUTH ONCE DAILY AND NEEDED STRESS DOSE artificial tears solution Drops 1 drp OPHTHALMIC (EYE) 4XD Eylea 2 mg/0.05 mL Syringe 2 mg INTRAVITREAL .[id number] Rx Instructions: 02/27/22 Creon 12,000-38,000 -60,000 unit capsule,delayed release(DR/EC) 1 cap PO DAILY Lumigan 0.01 % Drops 1 drp EACH EYE QHS Probiotic 10 billion cell Capsule 10,000 mmu cells PO DAILY furosemide 40 mg tablet 40 mg PO QODAY simethicone 80 mg Tablet,Chewable 80 mg PO TIDCM Referrals / Follow Up: Ashvin Cardenas MD [Primary Care Provider] - Disposition Disposition (needs filled in before D/C Order can be placed): [facility]
--- NOTE | 2022-03-27 12:27 | NURSING ---
Gave report to Mary at [facility].
--- NOTE | 2022-03-27 12:58 | CL.D_ITS ---
Patient Name: LIANA VALENCIA Study Date: 03/27/2022 Performing: Rm Wilson MD Ht: 58 inches 147.32 cm : 1940 Wt: 106.2 lbs 48.1 kg Age: 82 Gender: female BSA: 1.39 PROCEDURE(S) PERFORMED [id number])LHC/COR [id number]-([id number])AO ROOT ANGIO WITH HEART CATH CLINICAL PROFILE AND INDICATIONS Indications: ACS <= 24 hrs Heart Failure: None Stress/Imaging Stress/Image Study Performed: No Angina Classification Anginal Classification w/in 2 Weeks: CCS IV CAD Presentations: Non-STEMI. CONCLUSIONS [place] Multivessel CAD Aortic Root Calcified Aortic Valve Calcification- Moderate Aortic Valve Insufficiency Moderate Mitral Valve Annular Calcification Moderate annular calcification RECOMMENDATIONS Risk factor modification Medical therapy [facility]: evaluation for coronary revascularization therapy and valvular disease DESCRIPTION OF PROCEDURE The patient arrived to the procedure lab. The risks and benefits of the procedure as well as a full description of our services here and current unavailability of surgical backup were fully explained to the patient and/or their significant other prior to the catheterization. The Timeout was completed, verifying the correct patient and procedure. The patient's procedural site was prepped and draped in the usual fashion. Local anesthetic was given subcutaneously to right groin region with Lidocaine 2%. Using a modified Seldinger technique, arterial access was obtained via the right femoral artery, a 4Fr sheath was inserted Left Coronary Artery selective angiography was performed in multiple views using a 4 Fr. JL5 catheter. Right Coronary Artery selective angiography was then performed in multiple views using a 4 Fr. 3DRC catheter. Ascending (root) aorta selective angiography was then performed in single view with pigtail catheter.. Ascending (root) aorta selective angiography was then performed in single view with pigtail catheter..The arterial sheath was pulled and manual compression applied until hemostasis is achieved. CORONARY ANGIOGRAPHY DOMINANCE: Right Dominant LEFT HEART ASSESSMENT Left Ventricular Ejection Fraction: Not assessed LEFT MAIN: Moderate calcification, distal: 75 % Stenosis LEFT ANTERIOR DESCENDING ARTERY: PROX LAD: Moderate calcification MID LAD: 50 % Stenosis DIAGONAL 1: Proximal - 75 % Stenosis CIRCUMFLEX ARTERY: OSTIAL CIRC: 50 % Stenosis PROX CIRC: Moderate calcification RIGHT CORONARY ARTERY: Severe calcification PROX RCA: eccentric: 25 % Stenosis MID RCA: eccentric: hazy: 95 % Stenosis, 99 % Stenosis DISTAL RCA: Mild luminal irregularities VALVE FINDINGS: Aortic Valve Calcification - moderate Aortic Valve Insufficiency: Grade 2 Mitral Valve Annulus: Calcification Moderate AORTIC ROOT: Calcified COMPLICATIONS No Complications PROCEDURE MEDICATIONS Versed 1 mg IV Oxygen: 2 L/min via nasal cannula SUMMARY OF HEMODYNAMIC DATA Time AIR REST ECG 07:38:31 AO 120/44 (75) SA 08:03:04 Signed By Rm Wilson MD On 03/27/2022 12:57:31 Rm Wilson MD
--- NOTE | 2022-03-27 13:03 | PN.CARD_ITS ---
Subjective Subjective The patient underwent diagnostic cardiac catheterization earlier this day. She appears to be resting comfortably at this time. Objective Data Vital Signs: Vital Signs Temp Pulse Resp BP Pulse Ox O2 Del Method O2 Flow Rate 99.6 F H 91 24 H 110/62 100 Nasal Cannula 3 03/27/22 12:15 03/27/22 12:15 03/27/22 12:15 03/27/22 12:15 03/27/22 12:15 03/27/22 12:15 03/27/22 12:15 Oxygen Flow Rate (L/min) 3 Oxygen Delivery Method Nasal Cannula Weight: 106 lb 0.677 oz Body Mass Index (BMI) 22.1 Intake & Output: Intake and Output for Last 24 Hours 03/25/22 03/26/22 03/27/22 23:59 23:59 23:59 Intake Total 1000 / 1000 600 / 840 240 / 240 Output Total 0 / 0 120 / 120 0 / 0 Balance 1000 / 1000 480 / 720 240 / 240 Lab / Micro Data Result Diagrams: 03/27/22 05:52 03/27/22 05:52 Labs: Laboratory Results - last 24 hr 03/27/22 05:52: WBC 6.8, RBC 3.57 L, Hgb 11.1 L, Hct 33.0 L, MCV 92.4, MCH 31.1, MCHC 33.6, RDW Std Deviation 51.4 H, RDW Coeff of Samreen 15.0 H, Plt Count 157, MPV 9.5, Immature Gran % (Auto) 0.700, Neut % (Auto) 68.3, Lymph % (Auto) 20.2, [place] % (Auto) 8.7, Eos % (Auto) 1.8, Baso % (Auto) 0.3, Absolute Neuts (auto) 4.6, Absolute Lymphs (auto) 1.37, Nucleated RBC % 0 03/27/22 05:52: PT 15.2 H, INR 1.2 03/27/22 05:52: Sodium 131 L, Potassium 3.6, Chloride 97 L, Carbon Dioxide 24.0, Anion Gap 10, BUN 13, Creatinine 0.70, Estim Creat Clear Calc 32.94, Est GFR (MDRD) Af Amer 103, Est GFR (MDRD) Non-Af 85, BUN/Creatinine Ratio 18.6, Glucose 82, Calcium 8.3 L Cardiology Labs/Tests 03/27/22 05:52: WBC 6.8, RBC 3.57 L, Hgb 11.1 L, Hct 33.0 L, MCV 92.4, MCH 31.1, MCHC 33.6, Plt Count 157, MPV 9.5, Immature Gran % (Auto) 0.700, Neut % (Auto) 68.3, Lymph % (Auto) 20.2, [place] % (Auto) 8.7, Eos % (Auto) 1.8, Baso % (Auto) 0.3, Absolute Neuts (auto) 4.6, Nucleated RBC % 0 03/27/22 05:52: PT 15.2 H, INR 1.2 03/27/22 05:52: Sodium 131 L, Potassium 3.6, Chloride 97 L, Carbon Dioxide 24.0, Anion Gap 10, BUN 13, Creatinine 0.70, Est GFR (MDRD) Af Amer 103, Est GFR (MDRD) Non-Af 85, BUN/Creatinine Ratio 18.6, Glucose 82, Calcium 8.3 L Rhythm: Sinus rhythm ECHO: 01-15-2022 Interpretation Summary Left ventricular systolic function is normal. The estimated ejection fraction is 65 %. Sigmoid septum. The left atrium is mildly enlarged. There is moderate mitral annular calcification. Extension of the mitral annular calcification on the base of the posterior mitral valve leaflet. Mild focal mitral valve calcification of the anterior leaflet. Mild-Moderate mitral valve stenosis. Moderately severe (3+) eccentric mitral valve insufficiency. Trivial tricuspid valve insufficiency. Aortic valve sclerosis/mild aortic valve stenosis. Mild-Moderate (1-2+) aortic valve insufficiency. Mild (1+) pulmonic valve insufficiency. Epicardial fat. Echo lucency compatible with a pleural effusion. Right ventricular systolic pressure estimated to be 48 mmHg c/w pulmonary hypertension. Transmitral diastolic flow velocities suggest diastolic dysfunction (pseudonormal pattern). Cardiac Cath: CONCLUSIONS [place] Multivessel CAD Aortic Root Calcified Aortic Valve Calcification- Moderate Aortic Valve Insufficiency Moderate Mitral Valve Annular Calcification Moderate annular calcification RECOMMENDATIONS Risk factor modification Medical therapy Tertiary Care Center: evaluation for coronary revascularization therapy and valvular disease DESCRIPTION OF? PROCEDURE The patient arrived to the procedure lab. The risks and benefits of the procedure as well as a full description of our services here and current unavailability of surgical backup were fully explained to the patient and/or their significant other prior to the catheterization. The Timeout was completed, verifying the correct patient and procedure. The patient's procedural site was prepped and draped in the usual fashion. Local anesthetic was given subcutaneously to right groin region with Lidocaine 2%. Using a modified Seldinger technique, arterial access was obtained via the right femoral artery, a 4Fr sheath was inserted? Left Coronary Artery selective angiography was performed in multiple views using a 4 Fr. JL5 catheter. Right Coronary Artery selective angiography was then performed in multiple views using a 4 Fr. 3DRC catheter. Ascending (root) aorta selective angiography was then performed in single view with pigtail catheter.. Ascending (root) aorta selective angiography was then performed in single view with pigtail catheter..The arterial sheath was pulled and manual compression applied until hemostasis is achieved. CORONARY ANGIOGRAPHY DOMINANCE:? Right Dominant LEFT HEART ASSESSMENT Left Ventricular Ejection Fraction: Not assessed LEFT MAIN: Moderate calcification, distal: 75 % Stenosis LEFT ANTERIOR DESCENDING ARTERY: PROX LAD: Moderate calcification MID LAD: 50 % Stenosis DIAGONAL 1: Proximal - 75 % Stenosis CIRCUMFLEX ARTERY: OSTIAL CIRC: 50 % Stenosis PROX CIRC: Moderate calcification RIGHT CORONARY ARTERY: Severe calcification PROX RCA: eccentric: 25 % Stenosis MID RCA: eccentric: hazy: 95 % Stenosis, 99 % Stenosis DISTAL RCA: Mild luminal irregularities VALVE FINDINGS: Aortic Valve Calcification - moderate Aortic Valve Insufficiency: Grade 2 Mitral Valve Annulus: Calcification Moderate AORTIC ROOT: Calcified COMPLICATIONS No Complications Physical Exam Const alert, oriented x3 and no apparent distress Orientation / Consciousness: awake HEENT normocephalic, head/scalp atraumatic and hearing grossly normal bilaterally Eyes PERRL, EOMs intact bilaterally, conjunctivae normal and no scleral icterus Neck full ROM, supple and no JVD Carotids: normal carotid upstroke Resp normal respiratory effort and clear to auscultation bilaterally Cardio regular rate, regular rhythm, S1 normal heart sound and S2 normal heart sound Heart Sounds: murmur systolic II/ soft mid left sternal border other (III/ holosystolic murmur at apex / posterior thorax) GI normal to inspection, nondistended, normoactive bowel sounds Extremity no pedal edema Skin no rashes or lesions noted Psych mental status grossly normal Assessment & Plan Assessment/Plan (1) Elevated troponin: PLAN: The patient does have elevated troponin I levels compatible with a non-ST segment elevation NE. She has undergone further invasive valuation with diagnostic cardiac cathet erization with results as noted. At the present time she will continue medical therapy. She is pending transfer to [facility] for further evaluation of her coronary artery status with respect to options for either percutaneous or surgical based coronary revascularization therapy. (2) CAD (coronary artery disease): PLAN: The patient has been found to have extensive underlying coronary artery calcification and and atherosclerotic coronary artery disease including the left main coronary artery/LCA system as well as the RCA system. At the moment she will continue medical management. She is pending transfer to [facility] for further options with respect to coronary artery disease revascularization therapy. (3) Nonrheumatic aortic (valve) stenosis with insufficiency: PLAN: The patient does have a history aortic valve disease. Her most recent transthoracic echocardiogram was performed in January of this year. The results are as noted. On her cardiac catheterization she does demonstrate findings appearing compatible with at least moderate aortic valve insufficiency. Her valvular heart disease will have to be taken into consideration with respect to her tertiary care center evaluation. (4) Nonrheumatic mitral valve stenosis with insufficiency: PLAN: The patient does have the appearance of mitral annular calcification on h er fluoroscopic evaluation during her cardiac catheterization. Again her most recent transthoracic echocardiogram was performed in January of this year. She does have an element of mitral valve stenosis/insufficiency. She will need to continue her evaluation as noted. (5) Atrial fibrillation: PLAN: The patient was reported during her previous hospitalization have evidence of atrial fibrillation. As noted during her most recent outpatient cardiovascular visit note docume ntation with respect to this could not be located. At the moment her cardiac rate and rhythm will be monitored. (6) Hyperlipidemia: PLAN: The patient should continue medical management as deemed appropriate. Addt'l Comments The patient's case was discussed and reviewed with the patient and her 2 daughters present. The patient's case was discussed with Dr. Alexis Sky of interventional cardiology at [facility]. He agreed to accept the patient in transfer for further evaluation and care. The aforementioned information was conveyed to the [facility] hospitalist team. Thank you for allowing me to participate in the care of your patient. Please don't hesitate to call if any issues arise. This note was generated using a voice recognition system and there may be incorrect words, spelling or punctuation that were not noted when reviewing the office note prior to saving.
--- NOTE | 2022-03-27 15:09 | PCM.PN.HOSP ---
Documented by User: No Santos NP, MEDICAL STENOGRAPHER-C 03/27/22 15:12 Subjective Subjective Patient seen and examined. Underwent heart cath. Cardiology recommending transfer to tertiary facility due to multivessel CAD and valvular heart disease. Patient amenable to plan. She denies chest pain, shortness of breath. Objective Data Objective Data Vital Signs: Vital Signs Temp Pulse Resp BP Pulse Ox O2 Del Method O2 Flow Rate 99.6 F H 91 24 H 110/62 100 Nasal Cannula 3 03/27/22 12:15 03/27/22 12:15 03/27/22 12:15 03/27/22 12:15 03/27/22 12:15 03/27/22 12:15 03/27/22 12:15 Oxygen Flow Rate (L/min) 3 Oxygen Delivery Method Nasal Cannula Weight: 106 lb 0.677 oz Body Mass Index (BMI) 22.1 Intake & Output: Intake and Output for Last 24 Hours 03/25/22 03/26/22 03/27/22 23:59 23:59 23:59 Intake Total 1000 / 1000 600 / 840 522.5 / 522.5 Output Total 0 / 0 120 / 120 0 / 0 Balance 1000 / 1000 480 / 720 522.5 / 522.5 Lab / Micro Data Result Diagrams: 03/27/22 05:52 03/27/22 05:52 Labs: Laboratory Results - last 24 hr 03/27/22 05:52: WBC 6.8, RBC 3.57 L, Hgb 11.1 L, Hct 33.0 L, MCV 92.4, MCH 31.1, MCHC 33.6, RDW Std Deviation 51.4 H, RDW Coeff of Samreen 15.0 H, Plt Count 157, MPV 9.5, Immature Gran % (Auto) 0.700, Neut % (Auto) 68.3, Lymph % (Auto) 20.2, [place] % (Auto) 8.7, Eos % (Auto) 1.8, Baso % (Auto) 0.3, Absolute Neuts (auto) 4.6, Absolute Lymphs (auto) 1.37, Nucleated RBC % 0 03/27/22 05:52: PT 15.2 H, INR 1.2 03/27/22 05:52: Sodium 131 L, Potassium 3.6, Chloride 97 L, Carbon Dioxide 24.0, Anion Gap 10, BUN 13, Creatinine 0.70, Estim Creat Clear Calc 32.94, Est GFR (MDRD) Af Amer 103, Est GFR (MDRD) Non-Af 85, BUN/Creatinine Ratio 18.6, Glucose 82, Calcium 8.3 L Micro: Microbiology 03/25/22 16:44 Urine, Catheterized Urine Culture - Preliminary Culture exhibits no growth. 03/25/22 Unknown Nasal Secretion SARS-CoV-2 Antigen (Rapid) - Final Physical Exam Const alert, oriented x3 and no apparent distress HEENT normocephalic and moist oral mucous membranes Eyes PERRL, EOMs intact bilaterally and conjunctivae normal Neck no lymphadenopathy Resp normal respiratory effort and clear to auscultation bilaterally Cardio regular rate and regular rhythm Peripheral Pulses: pulses 2+ throughout GI normal to inspection, nondistended, normoactive bowel sounds, non-tender and non-distended Extremity normal to inspection Skin no rashes or lesions noted Lesions: no lesions Rashes: no rashes Trauma: no lacerations or abrasions Neuro CN's II-XII intact bilaterally, no focal motor deficits, no sensory deficits noted and deep tendon reflexes 2+ bilaterally Psych mental status grossly normal and affect normal Assessment & Plan Assessment/Plan (1) Elevated troponin: PLAN: Plan 1. NSTEMI-cardiology consulted.? Therapeutic Lovenox initiated on beta-lorie.? Aspirin, statin.?Echocardiogram 01/15/2022 demonstrated an EF of 65%, moderately severe mitral valve insufficiency, RVSP estimated to be 48 mmHg.? Patient underwent heart cath which demonstrated multivessel CAD.? Cardiology recommending transfer to tertiary facility for coronary revascularization and mitral valve evaluation.? Awaiting bed at [facility] for ongoing evaluation and management. 2. History of A. fib-continue metoprolol.? Not on anticoagulation. 3. 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 4. SLE-on hydroxychloroquine. 5. History of adrenal insufficiency-on hydrocortisone. 6. Hypothyroid-continue Synthroid. 7. History of perforated diverticulitis-status post colostomy. 8. Severe protein calorie malnutrition-as evidenced by cachectic appearance with muscle and fat loss.? Dietitian consult. This patient was seen by VADIM Fish under the supervision of Dr. Bowman. Time spent examining patient, reviewing data and subsequent management of care: 15 minutes Documented by User: Dr. Ashvin Bowman DO 03/27/22 15:22 Objective Data Lab / Micro Data Result Diagrams: 03/27/22 05:52 03/27/22 05:52 Assessment & Plan Assessment/Plan (1) Elevated troponin: Charges/Coding Addendum Addendum: Patient seen and examined independently. Data and vitals reviewed. I agree with the above note by the nurse practitioner. Patient still has some slight chest pain. No acute distress. Afebrile. Heart rate regular rate and rhythm plus S1-S2 with a murmurs Rubs. Lungs Are Clear to Auscultation Bilaterally. Extremities are without any cyanosis, clubbing or edema. Assessment and plan 1. Non-ST elevation myocardial infarction: Patient underwent a left heart catheterization today which showed left main stenosis of 75%, diagonal artery with 75% stenosis, 95% stenosis of the mid RCA. Recommendation cardiology is transfer to tertiary facility for high risk PCI or CABG. Medical management with enoxaparin, aspirin. Waiting on acceptance to the [facility]. Visit Charges Inpatient E&M: 34776 Subs Hosp L2
--- NOTE | 2022-03-27 15:12 | NURSING ---
Pt ambulated in room, up to RR and back to bed. Right groin site soft, no bleeding or hematoma noted. Will continue to monitor.
--- NOTE | 2022-03-27 15:16 | PCM.PN.HOSP ---
Subjective Subjective Has some chest pain. Objective Data Objective Data Vital Signs: Vital Signs Temp Pulse Resp BP Pulse Ox O2 Del Method O2 Flow Rate 37.8 C H 98 26 H 122/63 H 97 Nasal Cannula 3 03/27/22 14:50 03/27/22 14:50 03/27/22 14:50 03/27/22 14:50 03/27/22 14:50 03/27/22 14:50 03/27/22 14:50 Oxygen Flow Rate (L/min) 3 Oxygen Delivery Method Nasal Cannula Weight: 48.1 kg Body Mass Index (BMI) 22.1 Intake & Output: Intake and Output for Last 24 Hours 03/25/22 03/26/22 03/27/22 23:59 23:59 23:59 Intake Total 1000 / 1000 600 / 840 522.5 / 522.5 Output Total 0 / 0 120 / 120 0 / 0 Balance 1000 / 1000 480 / 720 522.5 / 522.5 Lab / Micro Data Result Diagrams: 03/27/22 05:52 03/27/22 05:52 Labs: Laboratory Results - last 24 hr 03/27/22 05:52: WBC 6.8, RBC 3.57 L, Hgb 11.1 L, Hct 33.0 L, MCV 92.4, MCH 31.1, MCHC 33.6, RDW Std Deviation 51.4 H, RDW Coeff of Samreen 15.0 H, Plt Count 157, MPV 9.5, Immature Gran % (Auto) 0.700, Neut % (Auto) 68.3, Lymph % (Auto) 20.2, [place] % (Auto) 8.7, Eos % (Auto) 1.8, Baso % (Auto) 0.3, Absolute Neuts (auto) 4.6, Absolute Lymphs (auto) 1.37, Nucleated RBC % 0 03/27/22 05:52: PT 15.2 H, INR 1.2 03/27/22 05:52: Sodium 131 L, Potassium 3.6, Chloride 97 L, Carbon Dioxide 24.0, Anion Gap 10, BUN 13, Creatinine 0.70, Estim Creat Clear Calc 32.94, Est GFR (MDRD) Af Amer 103, Est GFR (MDRD) Non-Af 85, BUN/Creatinine Ratio 18.6, Glucose 82, Calcium 8.3 L Micro: Microbiology 03/25/22 16:44 Urine, Catheterized Urine Culture - Preliminary Culture exhibits no growth. 03/25/22 Unknown Nasal Secretion SARS-CoV-2 Antigen (Rapid) - Final
[2022-03-27] MEDS: Hydrocortisone 10 MG Tablet PO (15:48)
[2022-03-27] MEDS: Creon 12,000 unit DR CapSULE 1 CAP PO (15:48)
[2022-03-27] MEDS: Budesonide 3 MG CAPSULE.EC PO (15:49)
[2022-03-27] MEDS: Hydroxychloroquine 200 MG Tablet PO (15:49)
[2022-03-27] MEDS: Enoxaparin 60 MG/0.6 ML Syringe 50 MG SC (15:50)
[2022-03-27] MEDS: Pantoprazole Sodium 40 MG Tablet PO (15:51)
[2022-03-27] MEDS: Ondansetron 4 MG/2 ML Vial IV (15:53)
[2022-03-27] MEDS: Furosemide 40 MG Tablet PO (16:14)
[2022-03-27] MEDS: Potassium Chloride Oral Tablet 10 MEQ PO (16:14)
--- NOTE | 2022-03-27 16:22 | NURSING ---
All AM medications given late by Cristino Terrazas RN d/t patient being CBR s/p heart cath unable to sit up high enough to swallow safely.
[2022-03-27] MEDS: BIMATOPROST 0.01% EACH EYE (20:38)
[2022-03-27] MEDS: OPTH EACH EYE (20:38)
[2022-03-27] MEDS: 0.9% Saline Lock 10 ML Syringe IV (20:42)
[2022-03-27] MEDS: proCHLORPERazine 10 MG/2 ML Vial 5 MG IV (20:42)
[2022-03-27] MEDS: DiphenhydrAMINE 25 MG Capsule PO (22:38)
--- NOTE | 2022-03-28 00:44 | NURSING ---
update called to patient daughterBarbara, room number and EMS ETA provided.
[2022-03-28 01:35] VITALS: BP 134/75; PULSE 95; RESP 20; TEMP 36.9; O2SAT 98
--- NOTE | 2022-03-28 02:15 | NURSING ---
pt assisted on to [facility] cart, 02 applied at 3L via NC. pt belongs and home medications bagged and given to daughter Barbara at pt bedside. Pt noted with rash previously noted. EMS aware. pt denies pain, discomfort and nausea at this time. Pt with belongings, home medication and daughter to exit via cart with EMS.
--- NOTE | 2022-03-28 02:26 | NURSING ---
Report called to [facility] RN who is receiving this pt. questions answered at this time
== END 2022-03-28 02:14 | disposition short-term general hospital (02) | DRG 280 ==
LOC: ED 19:29 → PCU 03-26 02:14
PROVIDERS: Nurse Practitioner Family; Admitting Provider Student in an Organized Health Care Education/Training Program; Emergency Provider Emergency Medicine; PCP Family Medicine
DX: I21.4 Non-ST elevation (NSTEMI) myocardial infarction (principal); E43 Unspecified severe protein-calorie malnutrition; E87.1 Hypo-osmolality and hyponatremia; E27.40 Unspecified adrenocortical insufficiency; K86.1 Other chronic pancreatitis; I27.21 Secondary pulmonary arterial hypertension; K75.4 Autoimmune hepatitis; I48.0 Paroxysmal atrial fibrillation; M32.9 Systemic lupus erythematosus, unspecified; Z93.3 Colostomy status; I10 Essential (primary) hypertension; E03.9 Hypothyroidism, unspecified; R11.2 Nausea with vomiting, unspecified; I25.10 Atherosclerotic heart disease of native coronary artery without angina pectoris; E78.5 Hyperlipidemia, unspecified; I34.2 Nonrheumatic mitral (valve) stenosis; I35.2 Nonrheumatic aortic (valve) stenosis with insufficiency; I49.3 Ventricular premature depolarization; Z20.822 Contact with and (suspected) exposure to COVID-19; H91.93 Unspecified hearing loss, bilateral; Z79.890 Hormone replacement therapy; Z68.23 Body mass index [BMI] 23.0-23.9, adult
CPT/HCPCS: 36415; 71046; 80048; 80053; 81001; 83605; 83690; 84484; 85025; 85610; 85730; 86140; 87040; 87086; 87811; 93005; 93454; 93567; 97162; 97166; 99152; 99153; 99285; J7030; P9612; A4216; C1769; C1894; J1940; J2405; Q9967

== ENCOUNTER 2022-04-11 16:03 | Emergency (ER) | payer MEDICARE, SELFPAY ==
[2022-04-11 16:04] VITALS: BP 121/51; PULSE 86; RESP 18; TEMP 36.2; O2SAT 100; BMI 22.4
--- NOTE | 2022-04-11 16:34 | EDS_ITS ---
HPI History of Present Illness Chief Complaint: Weakness Informant: patient and family Onset/Context/Timing Onset: Today Narrative Narrative: Patient presents secondary to weakness and low blood pressure. Patient was discharged from [facility] yesterday after having 2 stents placed to the RCA 6 days ago. Family states her blood pressure medication was adjusted just prior to discharge. Today they noted her blood pressure to be low down to 80/52 and she felt weak and dizzy. They attempted to call [facility] but did not receive a return call. They called EMS. On arrival to the emergency room blood pressure is 121/51 and patient states that she feels improved. As I enter the room family received a phone call from the nurse at [facility]. Instructions were provided to them on how to adjust her blood pressure medications. [facility] Medical History Adrenal insufficiency Aortic insufficiency Atherosclerotic heart disease of [place] coronary artery without angina pectoris Atrial fibrillation Autoimmune hepatitis Chronic hyponatremia COLONOSCOPY Diverticulitis Elevated troponin Glaucoma Hearing loss, left Hearing loss, right Heart disease Hepatitis History of left heart catheterization (LHC) (~03/27/22) History of non-ST elevation myocardial infarction (NSTEMI) HTN (hypertension) Hyperlipidemia Hypertension Hyperthyroidism Hypothyroidism Idiopathic thrombocytopenia Lupus Macular degeneration Migraines Monoclonal gammopathies NASAL POLYP REMOVED Non-smoker Nonrheumatic aortic (valve) stenosis with insufficiency Nonrheumatic mitral valve stenosis with insufficiency Osteopenia Presence of stent in coronary artery (~04/06/22) Pulmonary arterial hypertension Rheumatic fever Severe mitral regurgitation Sleep apnea 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 Tachycardia Home Medications brimonidine 0.15 % eye drops 1 drp EACH EYE BID eye drops 06/23/17 [History Last Taken 01/11/22] budesonide 3 mg capsule,delayed,extended release 3 mg PO DAILY inflammation 06/23/17 [History Last Taken 01/10/22] hydroxychloroquine 200 mg tablet 200 mg PO DAILYCM lupus 06/23/17 [History Last Taken 01/10/22] levothyroxine 75 mcg tablet 75 mcg PO DAILY thyroid 06/23/17 [History Last Taken 01/11/22] timolol maleate 0.5 % eye drops 1 drp EACH EYE DAILY eye drops 06/23/17 [History Last Taken 01/11/22] metoprolol succinate 50 mg tablet,extended release 24 hr 50 mg PO BID HEART 06/04/19 [History Last Taken 01/11/22] cholecalciferol (vitamin D3) 50 mcg (2,000 unit) capsule 2,000 unit PO DAILY SUPPLEMENT 07/30/19 [History Last Taken 01/10/22] hydrocortisone 5 mg tablet 10 mg PO DAILY steroid 07/31/19 [History Last Taken 01/10/22] aflibercept 2 mg/0.05 mL intravitreal syringe (Eylea) 2 mg intravitreal .[id number] EYE HEALTH 03/28/21 [History Last Taken 01/09/22] artificial tears solution eye drops 1 drp ophthalmic (eye) 4XD dry eyes 03/28/21 [History Last Taken Unknown] dgynuk-fiiglsom-spsetxj 12,000-38,000-60,000 unit capsule,delayed rel (Creon) 1 cap PO DAILY enzymes 04/29/21 [History Last Taken 01/10/22] Lactobacillus acidophilus 10 billion cell capsule (Probiotic) 10,000 mmu cells PO DAILY IMMUNE HEALTH 01/11/22 [History Last Taken 01/10/22] bimatoprost 0.01 % eye drops (Lumigan) 1 drp EACH EYE Q EYE HEALTH 01/11/22 [History Last Taken 01/11/22] furosemide 40 mg tablet 40 mg PO QODAY fluid pill 01/21/22 [History Last Taken 03/25/22] pantoprazole 40 mg tablet,delayed release (Protonix) 40 mg PO DAILY 03/09/22 [History Last Taken Unknown] potassium chloride 10 mEq tablet,extended release(part/cryst) 10 meq PO MOWEFR SUPPLEMENT' 03/09/22 [History Last Taken Unknown] simethicone 80 mg chewable tablet 80 mg PO TIDCM 03/25/22 [History Last Taken Unknown] Allergy/AdvReac Type Severity Reaction Status Date / Time Penicillins [PCN] Allergy Hives Verified 03/25/22 14:48 azathioprine [From Imuran] AdvReac Vomiting Verified 03/25/22 14:48 colchicine AdvReac Other Verified 03/25/22 14:48 doxycycline AdvReac Rash Verified 03/25/22 14:48 famotidine [From Pepcid] AdvReac Other Verified 03/25/22 14:48 griseofulvin AdvReac NEEDS Verified 03/25/22 14:48 [From Priti-PEG FOLLOW-UP (ultramicrosize)] Sulfa (Sulfonamide AdvReac Other Verified 03/25/22 14:48 Antibiotics) Family History Father Heart disease Pacemaker Mother Heart disease Surgical History H/O cataract extraction h/o mass removed from hip H/O tubal ligation Hx of cholecystectomy Presence of coronary angioplasty implant and graft Status post colon resection Social History household members: spouse Smoking Status: Never smoker alcohol intake: never substance use type: does not use caffeine: No ROS ROS ED Constitutional Constitutional ED: Denies chills or fever(s) Eyes Eyes: Denies change in vision or discharge from eye(s) ENT ENT ED: Denies discharge from eye(s), rhinorrhea or sore throat Cardiovascular Cardiovascular: Denies chest pain or palpitations Respiratory/Chest Respiratory/Chest: Denies cough or dyspnea Gastrointestinal Gastrointestinal: Denies abdominal pain, diarrhea, nausea or vomiting Genitourinary Genitourinary ED: Denies dysuria Musculoskeletal Musculoskeletal: Denies back pain or extremity pain Integumentary Denies Abrasions or rash Neurologic Neurologic: Denies headache(s) or weakness Psychiatric Psychiatric: Denies anxiety or depression Allergic/Immunologic Allergic/Immunologic ED: Denies lip swelling or urticaria EXAM Physical Exam Const Vital Signs: 04/11/22 16:04 04/11/22 16:49 04/11/22 17:26 Temperature 97.2 F L Temperature Source Temporal Pulse Rate 86 95 Respiratory Rate 18 Respiratory Effort Normal Non-Labored Respiratory Pattern Normal Blood Pressure 121/51 H 98/49 L Blood Pressure Mean 74 65 Pulse Ox 100 Oxygen Delivery Method Room Air Positive well nourished and well developed General Appearance ED: well developed HEENT Reports normocephalic and head/scalp atraumatic Eyes PERRL and EOMs intact bilaterally Neck supple Chest Wall inspection of chest normal and palpation of chest normal Resp normal respiratory effort and clear to auscultation bilaterally Cardio regular rate and regular rhythm GI normal to inspection, nondistended, normoactive bowel sounds Palpation: soft Extremity Extremity Narrative: Ecchymosis to the bilateral forearms as well as to the right thigh. Thigh is soft. Neuro oriented x3 Neuro Narrative: No focal neurologic deficits. Sensorium / Orientation: alert Psych mental status grossly normal MDM MDM MDM Narrative Medical decision making narrative: Because patient had been anemic CBC was repeated today. Patient is observed on lunchroom monitor. Lab Data Attestation: I reviewed the patient's lab results. Labs: Laboratory Results - last 24 hr 04/11/22 16:50 WBC 7.5 RBC 3.02 L Hgb 9.0 L Hct 30.0 L MCV 99.3 H MCH 29.8 MCHC 30.0 L RDW Std Deviation 60.1 H RDW Coeff of Samreen 17.2 H Plt Count 238 MPV 9.5 Immature Gran % (Auto) 3.700 H Neut % (Auto) 63.3 Lymph % (Auto) 18.8 L [place] % (Auto) 10.6 H Eos % (Auto) 3.2 Baso % (Auto) 0.4 Absolute Neuts (auto) 4.8 Absolute Lymphs (auto) 1.42 Nucleated RBC % 0 Treatment and Re-Evaluation Narrative: I was able to pull up patient's CBC from yesterday at [facility]. At that time her hemoglobin was 8.1 and hematocrit 24.9. Today hemoglobin is 9.0 hematocrit 30.0. Patient and family have been instructed on how to adjust her blood pressure medications. Caution was advised tonight as she does have a higher dose of Coreg in her system. Return instructions are provided. Discharge Plan Triage Chief Complaint: Weakness Other Complaint: Hypotension ED Provider: Allie Arredondo Dx/Rx/DC Orders Clinical Impression: Hypotension Prescriptions: No Action potassium chloride 10 mEq tablet,ER particles/crystals 10 meq PO MOWEFR pantoprazole [Protonix] 40 mg tablet,delayed release (DR/EC) 40 mg PO DAILY levothyroxine 75 MCG tablet 75 mcg PO DAILY Rx Instructions: name brand synthroid budesonide 3 MG capsule,delayed,extend.release 3 mg PO DAILY hydroxychloroquine 200 MG tablet 200 mg PO DAILYCM brimonidine 1 DROP bottle 1 drp EACH EYE BID timolol maleate 1 DROP drops 1 drp EACH EYE DAILY metoprolol succinate 50 MG tablet extended release 24 hr 50 mg PO BID cholecalciferol (vitamin D3) 2,000 UNIT capsule 2,000 unit PO DAILY hydrocortisone 5 MG tablet 10 mg PO DAILY Label Comments: TAKE 1 AND 1/2 TABLET BY MOUTH ONCE DAILY AND NEEDED STRESS DOSE artificial tears solution Drops 1 drp OPHTHALMIC (EYE) 4XD Eylea 2 mg/0.05 mL Syringe 2 mg INTRAVITREAL .[id number] Rx Instructions: 02/27/22 Creon 12,000-38,000 -60,000 unit capsule,delayed release(DR/EC) 1 cap PO DAILY Lumigan 0.01 % Drops 1 drp EACH EYE QHS Probiotic 10 billion cell Capsule 10,000 mmu cells PO DAILY furosemide 40 mg tablet 40 mg PO QODAY simethicone 80 mg Tablet,Chewable 80 mg PO TIDCM Primary Care Provider: Ashvin Cardenas Referrals: Ashvin Cardenas MD [Primary Care Provider] - As Needed Disposition Disposition: Home, Self Care
[2022-04-11 17:03] LABS: Absolute Lymphocyte Count 1.42 X10^3/uL (0.83-4.51); Absolute Neutrophil Count 4.8 X10^3/uL (2.0-7.7); Basophil# 0.03 X10^3/uL; Basophil% 0.4 % (0-1); Eosinophil# 0.24 X10^3/uL; Eosinophils% 3.2 % (0-5); Lymphocyte # 1.42 X10^3/ul (0.83-4.51); Lymphocyte % 18.8 % (19-41); Mean Corpuscular Hgb 29.8 pg (27.0-32.0); Mean Corpuscular Volume 99.3 fL (81-99); Mean Platelet Vol. 9.5 fl (6.2-12.0); Monocyte% 10.6 % (0-10); NRBC Flagged by Analyzer 0 % (0-5); Neutrophil # 4.77 X10^3/uL (2.7-7.7); Neutrophil % 63.3 % (47-70); Platelet Count 238 K/mm3 (150-450); RBC Distribution Width CV 17.2 % (11.6-14.6); RBC Distribution Width SD 60.1 fl (35.1-43.9); Red Blood Count 3.02 M/mm3 (4.2-5.4); White Blood Count 7.5 K/mm3 (4.4-11.0)
[2022-04-11 17:26] VITALS: BP 98/49; PULSE 95
== END 2022-04-11 17:48 | disposition home or self-care (01) ==
PROVIDERS: Emergency Provider Emergency Medicine; PCP Family Medicine; Visit Provider Emergency Medicine
DX: I95.9 Hypotension, unspecified (principal); E78.5 Hyperlipidemia, unspecified; I25.10 Atherosclerotic heart disease of native coronary artery without angina pectoris; I10 Essential (primary) hypertension; Z95.5 Presence of coronary angioplasty implant and graft; Z79.899 Other long term (current) drug therapy
CPT/HCPCS: 85025; 99284

== ENCOUNTER 2022-04-21 13:05 | Emergency (ER) | payer MEDICARE, SELFPAY ==
[2022-04-21 13:06] VITALS: BP 130/57; PULSE 97; RESP 16; TEMP 35.9; O2SAT 100; BMI 21.5
--- NOTE | 2022-04-21 13:41 | EX.ED.DYSGE1 ---
HPI History of Present Illness Chief Complaint: Nosebleed Informant: patient and family Narrative Narrative: Patient sent in here for nasal packing placement. Recurrent nosebleeds right nare starting the overnight Sunday. Patient is on aspirin and Plavix had a stent placed in the last few months in her heart. She reports while in the TCU in February had 2 days of nosebleed. She has never seen ENT. Patient has had right eye injection 4 days ago due to glaucoma therefore there is bruising to her cheek. Bleeding stopped prior to arrival here. Patient saw PCP yesterday was being referred to ENT this morning however the referral with the doctor was not available. Reported PCP called ENT office today for which she has appointment on Sunday however was told to come for packing. No current bleeding. No lightheaded symptoms. Prior similar symptoms: Yes PFSH PFSH Medical History Adrenal insufficiency Aortic insufficiency Atherosclerotic heart disease of [place] coronary artery without angina pectoris Atrial fibrillation Autoimmune hepatitis Chronic hyponatremia COLONOSCOPY Diverticulitis Elevated troponin Glaucoma Hearing loss, left Hearing loss, right Heart disease Hepatitis History of left heart catheterization (LHC) (~03/27/22) History of non-ST elevation myocardial infarction (NSTEMI) HTN (hypertension) Hyperlipidemia Hypertension Hyperthyroidism Hypothyroidism Idiopathic thrombocytopenia Lupus Macular degeneration Migraines Monoclonal gammopathies NASAL POLYP REMOVED Non-smoker Nonrheumatic aortic (valve) stenosis with insufficiency Nonrheumatic mitral valve stenosis with insufficiency Osteopenia Presence of stent in coronary artery (~04/06/22) Pulmonary arterial hypertension Rheumatic fever Severe mitral regurgitation Sleep apnea 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 Tachycardia Home Medications brimonidine 0.15 % eye drops 1 drp EACH EYE BID eye drops 06/23/17 [History Last Taken 01/11/22] budesonide 3 mg capsule,delayed,extended release 3 mg PO DAILY inflammation 06/23/17 [History Last Taken 01/10/22] hydroxychloroquine 200 mg tablet 200 mg PO DAILYCM lupus 06/23/17 [History Last Taken 01/10/22] levothyroxine 75 mcg tablet 75 mcg PO DAILY thyroid 06/23/17 [History Last Taken 01/11/22] timolol maleate 0.5 % eye drops 1 drp EACH EYE DAILY eye drops 06/23/17 [History Last Taken 01/11/22] metoprolol succinate 50 mg tablet,extended release 24 hr 50 mg PO BID HEART 06/04/19 [History Last Taken 01/11/22] cholecalciferol (vitamin D3) 50 mcg (2,000 unit) capsule 2,000 unit PO DAILY SUPPLEMENT 07/30/19 [History Last Taken 01/10/22] hydrocortisone 5 mg tablet 10 mg PO DAILY steroid 07/31/19 [History Last Taken 01/10/22] aflibercept 2 mg/0.05 mL intravitreal syringe (Eylea) 2 mg intravitreal .[id number] EYE HEALTH 03/28/21 [History Last Taken 01/09/22] artificial tears solution eye drops 1 drp ophthalmic (eye) 4XD dry eyes 03/28/21 [History Last Taken Unknown] furgyo-ghqrkoot-qetvmft 12,000-38,000-60,000 unit capsule,delayed rel (Creon) 1 cap PO DAILY enzymes 04/29/21 [History Last Taken 01/10/22] Lactobacillus acidophilus 10 billion cell capsule (Probiotic) 10,000 mmu cells PO DAILY IMMUNE HEALTH 01/11/22 [History Last Taken 01/10/22] bimatoprost 0.01 % eye drops (Lumigan) 1 drp EACH EYE QHS EYE HEALTH 01/11/22 [History Last Taken 01/11/22] furosemide 40 mg tablet 40 mg PO QODAY fluid pill 01/21/22 [History Last Taken 03/25/22] pantoprazole 40 mg tablet,delayed release (Protonix) 40 mg PO DAILY 03/09/22 [History Last Taken Unknown] potassium chloride 10 mEq tablet,extended release(part/cryst) 10 meq PO MOWEFR SUPPLEMENT' 03/09/22 [History Last Taken Unknown] simethicone 80 mg chewable tablet 80 mg PO TIDCM 03/25/22 [History Last Taken Unknown] Allergy/AdvReac Type Severity Reaction Status Date / Time Penicillins [PCN] Allergy Hives Verified 04/21/22 13:05 azathioprine [From Imuran] AdvReac Vomiting Verified 04/21/22 13:05 colchicine AdvReac Other Verified 04/21/22 13:05 doxycycline AdvReac Rash Verified 04/21/22 13:05 famotidine [From Pepcid] AdvReac Other Verified 04/21/22 13:05 griseofulvin AdvReac NEEDS Verified 04/21/22 13:05 [From Priti-PEG FOLLOW-UP (ultramicrosize)] Sulfa (Sulfonamide AdvReac Other Verified 04/21/22 13:05 Antibiotics) Family History Father Heart disease Pacemaker Mother Heart disease Surgical History H/O cataract extraction h/o mass removed from hip H/O tubal ligation Hx of cholecystectomy Presence of coronary angioplasty implant and graft Status post colon resection Social History household members: spouse Smoking Status: Never smoker alcohol intake: never substance use type: does not use caffeine: No ROS ROS ED Constitutional Constitutional ED: Denies chills, fever(s) or sweats Eyes Eyes: Denies change in vision ENT ENT ED: Reports other Details: Recurrent right epistaxis resolved ; Denies dysphagia or sore throat Cardiovascular Cardiovascular: Denies chest pain, leg edema, palpitations or racing heartbeat Respiratory/Chest Respiratory/Chest: Denies cough, dyspnea or dyspnea on exertion Gastrointestinal Gastrointestinal: Denies abdominal pain, diarrhea, nausea or vomiting Genitourinary Genitourinary ED: Denies dysuria, hematuria or urinary frequency Musculoskeletal Musculoskeletal: Denies back pain, extremity pain or neck pain Integumentary Denies rash or wounds Neurologic Neurologic: Denies headache(s), paresthesias or weakness EXAM Physical Exam Const Vital Signs: 04/21/22 13:06 Temperature 96.7 F L Temperature Source Temporal Pulse Rate 97 Respiratory Rate 16 Blood Pressure 130/57 H Blood Pressure Mean 81 Pulse Ox 100 Oxygen Delivery Method Room Air Positive well nourished and well developed General Appearance ED: well developed and NAD HEENT Reports moist mucous membranes HEENT Narrative: Nasal: Right nare with no clots or active bleeding. No ulcerations. No posterior pharyngeal bleeding. normocephalic and atraumatic Eyes PERRL, EOMs intact bilaterally and conjunctivae normal General Eye ED: Yes normal appearance of both eyes Neck no lymphadenopathy and supple General: Negative for tenderness Chest Wall Chest: Negative for tenderness Resp normal respiratory effort and normal air movement Effort and Inspection: symmetric chest movement; Negative for respiratory distress Cardio regular rate, regular rhythm and no murmurs Peripheral Pulses: pulses 2+ throughout GI normal to inspection, nondistended, normoactive bowel sounds and non-tender Palpation: Negative for guarding or rebound tenderness present Back/Spine no CVA tenderness and no thoracic nor lumbar tenderness Extremity normal to inspection General Extremety ED: Negative for edema or tenderness General Extremity: Negative for edema Neuro oriented x3 and no sensory deficits noted Sensorium / Orientation: awake and alert Skin no rashes or lesions noted and no wounds MDM MDM MDM Narrative Medical decision making narrative: Patient nontoxic vital stable. There is no current active bleeding. Patient did have recurrent bleeds right side, did not appear to have any clear signs of where this is bleeding from. Reported that her PCP spoke with ENT and she was sent here for packing. She has a follow-up on Sunday. With her on anticoagulants and has a follow-up I did place a 5.5 cm rapid Rhino right nare gentle pressure was placed. Discussed if rebleeding occurs to return here otherwise keep her follow-up on Sunday. All questions were answered. Discharge Plan Triage Chief Complaint: Nosebleed ED Provider: Antonio Soares Dx/Rx/DC Orders Clinical Impression: Right-sided epistaxis, Presence of stent in coronary artery, History of coronary artery disease Instructions: ED Epistaxis (Adult) Prescriptions: No Action potassium chloride 10 mEq tablet,ER particles/crystals 10 meq PO MOWEFR pantoprazole [Protonix] 40 mg tablet,delayed release (DR/EC) 40 mg PO DAILY levothyroxine 75 MCG tablet 75 mcg PO DAILY Rx Instructions: name brand synthroid budesonide 3 MG capsule,delayed,extend.release 3 mg PO DAILY hydroxychloroquine 200 MG tablet 200 mg PO DAILYCM brimonidine 1 DROP bottle 1 drp EACH EYE BID timolol maleate 1 DROP drops 1 drp EACH EYE DAILY metoprolol succinate 50 MG tablet extended release 24 hr 50 mg PO BID cholecalciferol (vitamin D3) 2,000 UNIT capsule 2,000 unit PO DAILY hydrocortisone 5 MG tablet 10 mg PO DAILY Label Comments: TAKE 1 AND 1/2 TABLET BY MOUTH ONCE DAILY AND NEEDED STRESS DOSE artificial tears solution Drops 1 drp OPHTHALMIC (EYE) 4XD Eylea 2 mg/0.05 mL Syringe 2 mg INTRAVITREAL .[id number] Rx Instructions: 02/27/22 Creon 12,000-38,000 -60,000 unit capsule,delayed release(DR/EC) 1 cap PO DAILY Lumigan 0.01 % Drops 1 drp EACH EYE QHS Probiotic 10 billion cell Capsule 10,000 mmu cells PO DAILY furosemide 40 mg tablet 40 mg PO QODAY simethicone 80 mg Tablet,Chewable 80 mg PO TIDCM Primary Care Provider: Ashvin Cardenas Referrals: Ashvin Cardenas MD [Primary Care Provider] - Shantanu Root MD [Med Staff - Active Staff] - Keep Una appointment Activity Restrictions/Additional Instructions: 5.5 cm Rhino Rocket placed your right nare. Keep your follow-up on Sunday. Return if rebleed occurs. Disposition Disposition: Home, Self Care Discharge Date/Time: 04/21/22 14:35
== END 2022-04-21 14:35 | disposition home or self-care (01) ==
PROVIDERS: Emergency Provider Emergency Medicine; PCP Family Medicine; Visit Provider Emergency Medicine
DX: R04.0 Epistaxis (principal); I27.20 Pulmonary hypertension, unspecified; I48.91 Unspecified atrial fibrillation; I25.10 Atherosclerotic heart disease of native coronary artery without angina pectoris; E78.5 Hyperlipidemia, unspecified; I10 Essential (primary) hypertension; H91.93 Unspecified hearing loss, bilateral; I25.2 Old myocardial infarction; Z79.82 Long term (current) use of aspirin; Z79.02 Long term (current) use of antithrombotics/antiplatelets; Z79.890 Hormone replacement therapy; Z79.899 Other long term (current) drug therapy; Z95.5 Presence of coronary angioplasty implant and graft
CPT/HCPCS: 30901; 99282

== ENCOUNTER 2022-05-06 15:11 | Emergency (ER) | payer MEDICARE, SELFPAY ==
[2022-05-06 15:12] VITALS: BP 157/61; PULSE 99; RESP 18; TEMP 36.8; O2SAT 100; BMI 21.9
--- NOTE | 2022-05-06 15:38 | EDS_ITS ---
HPI History of Present Illness Chief Complaint: Nosebleed Informant: patient and family Narrative Narrative: Continued nosebleed right nare intermittent for 2 days. Seen ENT today at 10 AM had soft packing placed anteriorly. She feels like she is swallowing blood. She is on aspirin Plavix her coronary stent last month. Of note was seen by myself 15 days ago for control bleeding with ENT requesting a packing. She did follow-up the following Sunday she had some sort of cauterization bleeding was stable until 2 days ago. Reported unclear source of by ENT today with soft packing and to be seen early next week. Prior similar symptoms: Yes PFSH [facility], LAT[facility] Medical History Adrenal insufficiency Aortic insufficiency Atherosclerotic heart disease of [place] coronary artery without angina pectoris Atrial fibrillation Autoimmune hepatitis Chronic hyponatremia COLONOSCOPY Diverticulitis Elevated troponin Glaucoma Hearing loss, left Hearing loss, right Heart disease Hepatitis History of left heart catheterization (LHC) (~03/27/22) History of non-ST elevation myocardial infarction (NSTEMI) HTN (hypertension) Hyperlipidemia Hypertension Hyperthyroidism Hypothyroidism Idiopathic thrombocytopenia Lupus Macular degeneration Migraines Monoclonal gammopathies NASAL POLYP REMOVED Non-smoker Nonrheumatic aortic (valve) stenosis with insufficiency Nonrheumatic mitral valve stenosis with insufficiency Osteopenia Presence of stent in coronary artery (~04/06/22) Pulmonary arterial hypertension Rheumatic fever Severe mitral regurgitation Sleep apnea 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 Tachycardia Home Medications brimonidine 0.15 % eye drops 1 drp EACH EYE BID eye drops 06/23/17 [History Last Taken 01/11/22] budesonide 3 mg capsule,delayed,extended release 3 mg PO DAILY inflammation 06/23/17 [History Last Taken 01/10/22] hydroxychloroquine 200 mg tablet 200 mg PO DAILYCM lupus 06/23/17 [History Last Taken 01/10/22] levothyroxine 75 mcg tablet 75 mcg PO DAILY thyroid 06/23/17 [History Last Taken 01/11/22] timolol maleate 0.5 % eye drops 1 drp EACH EYE DAILY eye drops 06/23/17 [History Last Taken 01/11/22] cholecalciferol (vitamin D3) 50 mcg (2,000 unit) capsule 2,000 unit PO DAILY SUPPLEMENT 07/30/19 [History Last Taken 01/10/22] hydrocortisone 5 mg tablet 10 mg PO DAILY steroid 07/31/19 [History Last Taken 01/10/22] aflibercept 2 mg/0.05 mL intravitreal syringe (Eylea) 2 mg intravitreal .[id number] EYE HEALTH 03/28/21 [History Last Taken 01/09/22] artificial tears solution eye drops 1 drp ophthalmic (eye) 4XD dry eyes 03/28/21 [History Last Taken Unknown] amhccj-[id number] 12,000-38,000-60,000 unit capsule,delayed rel (Creon) 1 cap PO DAILY enzymes 04/29/21 [History Last Taken 01/10/22] Lactobacillus acidophilus 10 billion cell capsule (Probiotic) 10,000 mmu cells PO DAILY IMMUNE HEALTH 01/11/22 [History Last Taken 01/10/22] bimatoprost 0.01 % eye drops (Lumigan) 1 drp EACH EYE Q EYE HEALTH 01/11/22 [History Last Taken 01/11/22] furosemide 40 mg tablet 40 mg PO QODAY fluid pill 01/21/22 [History Last Taken 03/25/22] pantoprazole 40 mg tablet,delayed release (Protonix) 40 mg PO DAILY 03/09/22 [History Last Taken Unknown] potassium chloride 10 mEq tablet,extended release(part/cryst) 10 meq PO MOWEFR SUPPLEMENT' 03/09/22 [History Last Taken Unknown] simethicone 80 mg chewable tablet 80 mg PO TIDCM 03/25/22 [History Last Taken Unknown] atorvastatin 40 mg tablet 40 mg PO DAILY 05/04/22 [History Last Taken Unknown] carvedilol 6.25 mg tablet (Coreg) 6.25 mg PO BID 05/04/22 [History Last Taken Unknown] clopidogrel 75 mg tablet (Plavix) 75 mg PO DAILY 05/04/22 [History Last Taken Unknown] Allergy/AdvReac Type Severity Reaction Status Date / Time Penicillins [PCN] Allergy Hives Verified 05/06/22 15:11 azathioprine [From Imuran] AdvReac Vomiting Verified 05/06/22 15:11 colchicine AdvReac Other Verified 05/06/22 15:11 doxycycline AdvReac Rash Verified 05/06/22 15:11 famotidine [From Pepcid] AdvReac Other Verified 05/06/22 15:11 griseofulvin AdvReac NEEDS Verified 05/06/22 15:11 [From Priti-PEG FOLLOW-UP (ultramicrosize)] Sulfa (Sulfonamide AdvReac Other Verified 05/06/22 15:11 Antibiotics) Family History Father Heart disease Pacemaker Mother Heart disease Surgical History H/O cataract extraction h/o mass removed from hip H/O tubal ligation Hx of cholecystectomy Presence of coronary angioplasty implant and graft Status post colon resection Social History household members: spouse Smoking Status: Never smoker alcohol intake: never substance use type: does not use caffeine: No ROS ROS ED Constitutional Constitutional ED: Denies chills, fever(s) or sweats Eyes Eyes: Denies change in vision ENT ENT ED: Reports other Details: Right nasal bleeding. ; Denies dysphagia or sore throat Cardiovascular Cardiovascular: Denies chest pain, leg edema, palpitations or racing heartbeat Respiratory/Chest Respiratory/Chest: Denies cough, dyspnea or dyspnea on exertion Gastrointestinal Gastrointestinal: Denies abdominal pain, diarrhea, nausea or vomiting Genitourinary Genitourinary ED: Denies dysuria, hematuria or urinary frequency Musculoskeletal Musculoskeletal: Denies back pain, extremity pain or neck pain Integumentary Denies rash or wounds Neurologic Neurologic: Denies headache(s), paresthesias or weakness EXAM Physical Exam Const Vital Signs: 05/06/22 15:12 Temperature 98.3 F Temperature Source Temporal Pulse Rate 99 Respiratory Rate 18 Blood Pressure 157/61 H Blood Pressure Mean 93 Pulse Ox 100 Oxygen Delivery Method Room Air Positive well nourished and well developed General Appearance ED: well developed and NAD HEENT Reports moist mucous membranes HEENT Narrative: right nare soft packing, bleeding with pressure. No posterior pharyngeal active bleeding noted. normocephalic and atraumatic Eyes PERRL, EOMs intact bilaterally and conjunctivae normal General Eye ED: Yes normal appearance of both eyes Neck no lymphadenopathy and supple General: Negative for tenderness Chest Wall Chest: Negative for tenderness Resp normal respiratory effort and normal air movement Effort and Inspection: symmetric chest movement; Negative for respiratory distress Cardio regular rate, regular rhythm and no murmurs Peripheral Pulses: pulses 2+ throughout GI normal to inspection, nondistended, normoactive bowel sounds and non-tender Palpation: Negative for guarding or rebound tenderness present Back/Spine no CVA tenderness and no thoracic nor lumbar tenderness Extremity normal to inspection General Extremety ED: Negative for edema or tenderness General Extremity: Negative for edema Neuro oriented x3 and no sensory deficits noted Sensorium / Orientation: awake and alert Skin no rashes or lesions noted and no wounds MDM MDM MDM Narrative Medical decision making narrative: Patient bleeding from the soft packing. This was removed this is only a pretty sore anterior packing. With her being on antiplatelets rebleeding, I placed a 5.5 cm Rhino Rocket with gentle pressure. She is monitored no rebleeding. She is ambulating with no rebleeding. She will follow-up as scheduled with ENT after the weekend. Return precautions. All questions were answered. Discharge Plan Triage Chief Complaint: Nosebleed ED Provider: Antonio Soares Dx/Rx/DC Orders Clinical Impression: Right-sided epistaxis, CAD (coronary artery disease), Encounter for long-term (current) use of antiplatelets/antithrombotics Instructions: ED Epistaxis (Adult) Prescriptions: No Action potassium chloride 10 mEq tablet,ER particles/crystals 10 meq PO MOWEFR pantoprazole [Protonix] 40 mg tablet,delayed release (DR/EC) 40 mg PO DAILY carvedilol [Coreg] 6.25 mg tablet 6.25 mg PO BID Rx Instructions: must administer with a meal/food clopidogrel [Plavix] 75 mg tablet 75 mg PO DAILY atorvastatin 40 mg tablet 40 mg PO DAILY levothyroxine 75 MCG tablet 75 mcg PO DAILY Rx Instructions: name brand synthroid budesonide 3 MG capsule,delayed,extend.release 3 mg PO DAILY hydroxychloroquine 200 MG tablet 200 mg PO DAILYCM brimonidine 1 DROP bottle 1 drp EACH EYE BID timolol maleate 1 DROP drops 1 drp EACH EYE DAILY cholecalciferol (vitamin D3) 2,000 UNIT capsule 2,000 unit PO DAILY hydrocortisone 5 MG tablet 10 mg PO DAILY Label Comments: TAKE 1 AND 1/2 TABLET BY MOUTH ONCE DAILY AND NEEDED STRESS DOSE artificial tears solution Drops 1 drp OPHTHALMIC (EYE) 4XD Eylea 2 mg/0.05 mL Syringe 2 mg INTRAVITREAL .[id number] Rx Instructions: 02/27/22 Creon 12,000-38,000 -60,000 unit capsule,delayed release(DR/EC) 1 cap PO DAILY Lumigan 0.01 % Drops 1 drp EACH EYE QHS Probiotic 10 billion cell Capsule 10,000 mmu cells PO DAILY furosemide 40 mg tablet 40 mg PO QODAY simethicone 80 mg Tablet,Chewable 80 mg PO TIDCM Primary Care Provider: Ashvin Cardenas Referrals: Isiah Root MD [Med Staff - Courtesy Staff] - Castro Ingram MD [Med Staff - Active Staff] - 3-5 Days Ashvin Cardenas MD [Primary Care Provider] - Activity Restrictions/Additional Instructions: 5.5 cm rapid Rhino placed to right nare. Follow-up on Sunday as scheduled. Disposition Disposition: Home, Self Care
== END 2022-05-06 16:12 | disposition home or self-care (01) ==
PROVIDERS: Emergency Provider Emergency Medicine; PCP Family Medicine; Visit Provider Emergency Medicine
DX: R04.0 Epistaxis (principal); I48.91 Unspecified atrial fibrillation; I10 Essential (primary) hypertension; I25.10 Atherosclerotic heart disease of native coronary artery without angina pectoris; E78.5 Hyperlipidemia, unspecified; E03.9 Hypothyroidism, unspecified; I25.2 Old myocardial infarction; Z79.82 Long term (current) use of aspirin; Z79.02 Long term (current) use of antithrombotics/antiplatelets; Z79.890 Hormone replacement therapy; Z79.899 Other long term (current) drug therapy; Z95.5 Presence of coronary angioplasty implant and graft
CPT/HCPCS: 30901; 99282

== ENCOUNTER 2022-05-10 11:36 | Emergency (ER) | payer MEDICARE, SELFPAY ==
[2022-05-10 11:37] VITALS: BP 112/53; PULSE 47; RESP 18; TEMP 36; O2SAT 100; BMI 21.9
[2022-05-10 13:22] LABS: Absolute Lymphocyte Count 1.44 X10^3/uL (0.83-4.51); Absolute Neutrophil Count 7.2 X10^3/uL (2.0-7.7); Basophil# 0.03 X10^3/uL; Basophil% 0.3 % (0-1); Eosinophil# 0.11 X10^3/uL; Eosinophils% 1.1 % (0-5); Hematocrit 31.9 % (37-47); Hemoglobin 9.8 g/dL (12.0-15.0); Lymphocyte # 1.44 X10^3/ul (0.83-4.51); Lymphocyte % 14.6 % (19-41); Mean Corp Hgb Conc 30.7 g/dL (32-36); Mean Corpuscular Hgb 29.2 pg (27.0-32.0); Mean Corpuscular Volume 94.9 fL (81-99); Mean Platelet Vol. 10.1 fl (6.2-12.0); Monocyte% 10.1 % (0-10); NRBC Flagged by Analyzer 0 % (0-5); Neutrophil # 7.23 X10^3/uL (2.7-7.7); Neutrophil % 73.4 % (47-70); Platelet Count 139 K/mm3 (150-450); RBC Distribution Width CV 17.1 % (11.6-14.6); RBC Distribution Width SD 59.5 fl (35.1-43.9); Red Blood Count 3.36 M/mm3 (4.2-5.4); White Blood Count 9.9 K/mm3 (4.4-11.0)
[2022-05-10 13:31] LABS: International Normalized Ratio 1.1; Prothrombin Time (Protime)PT. 13.8 SECONDS (11.7-14.9)
[2022-05-10 13:38] LABS: Anion Gap 7 (5-15); BUN 16 mg/dL (7-18); BUN/Creat Ratio 19.8 RATIO (10-20); Calcium,Total 8.8 mg/dL (8.5-10.1); Chloride 101 mmol/L (98-107); Creatinine, Serum 0.81 mg/dL (0.55-1.02); EST Glomerular Filtration Rate 72 mL/min (>60); Est Glom Filt Rate - Afr Amer 87 mL/min (>60); Estimated Creatinine Clearance 40.26 ml/min; Glucose 113 mg/dL (74-106); Potassium 3.9 mmol/L (3.5-5.1); Sodium Level 135 mmol/L (136-145)
--- NOTE | 2022-05-10 14:20 | EX.ED.DYSGE1 ---
HPI History of Present Illness Chief Complaint: Nosebleed Informant: patient and family Narrative Narrative: Patient had a right-sided nosebleed that started for 5 days ago, she had an inflatable rapid Rhino packing placed on the right side, she saw ENT 2 days ago, she developed ecchymosis throughout the nasal bridge. She is on clopidogrel, she had stents that were placed about 2 months ago and her heart. ENT decided to leave the packing in for another week. Today she started bleeding out the other side intermittently. It is not currently bleeding. She denies any systemic symptoms. [facility] Medical History Adrenal insufficiency Aortic insufficiency Atherosclerotic heart disease of [place] coronary artery without angina pectoris Atrial fibrillation Autoimmune hepatitis Chronic hyponatremia COLONOSCOPY Diverticulitis Elevated troponin Glaucoma Hearing loss, left Hearing loss, right Heart disease Hepatitis History of left heart catheterization (LHC) (~03/27/22) History of non-ST elevation myocardial infarction (NSTEMI) HTN (hypertension) Hyperlipidemia Hypertension Hyperthyroidism Hypothyroidism Idiopathic thrombocytopenia Lupus Macular degeneration Migraines Monoclonal gammopathies NASAL POLYP REMOVED Non-smoker Nonrheumatic aortic (valve) stenosis with insufficiency Nonrheumatic mitral valve stenosis with insufficiency Osteopenia Presence of stent in coronary artery (~04/06/22) Pulmonary arterial hypertension Rheumatic fever Severe mitral regurgitation Sleep apnea 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 Tachycardia Home Medications brimonidine 0.15 % eye drops 1 drp EACH EYE BID eye drops 06/23/17 [History Last Taken 01/11/22] budesonide 3 mg capsule,delayed,extended release 3 mg PO DAILY inflammation 06/23/17 [History Last Taken 01/10/22] hydroxychloroquine 200 mg tablet 200 mg PO DAILYCM lupus 06/23/17 [History Last Taken 01/10/22] levothyroxine 75 mcg tablet 75 mcg PO DAILY thyroid 06/23/17 [History Last Taken 01/11/22] timolol maleate 0.5 % eye drops 1 drp EACH EYE DAILY eye drops 06/23/17 [History Last Taken 01/11/22] cholecalciferol (vitamin D3) 50 mcg (2,000 unit) capsule 2,000 unit PO DAILY SUPPLEMENT 07/30/19 [History Last Taken 01/10/22] hydrocortisone 5 mg tablet 10 mg PO DAILY steroid 07/31/19 [History Last Taken 01/10/22] aflibercept 2 mg/0.05 mL intravitreal syringe (Eylea) 2 mg intravitreal .[id number] EYE HEALTH 03/28/21 [History Last Taken 01/09/22] artificial tears solution eye drops 1 drp ophthalmic (eye) 4XD dry eyes 03/28/21 [History Last Taken Unknown] pzcwlr-nnlemdhm-hlmpdzw 12,000-38,000-60,000 unit capsule,delayed rel (Creon) 1 cap PO DAILY enzymes 04/29/21 [History Last Taken 01/10/22] Lactobacillus acidophilus 10 billion cell capsule (Probiotic) 10,000 mmu cells PO DAILY IMMUNE HEALTH 01/11/22 [History Last Taken 01/10/22] bimatoprost 0.01 % eye drops (Lumigan) 1 drp EACH EYE Q EYE HEALTH 01/11/22 [History Last Taken 01/11/22] furosemide 40 mg tablet 40 mg PO QODAY fluid pill 01/21/22 [History Last Taken 03/25/22] pantoprazole 40 mg tablet,delayed release (Protonix) 40 mg PO DAILY 03/09/22 [History Last Taken Unknown] potassium chloride 10 mEq tablet,extended release(part/cryst) 10 meq PO MOWEFR SUPPLEMENT' 03/09/22 [History Last Taken Unknown] simethicone 80 mg chewable tablet 80 mg PO TIDCM 03/25/22 [History Last Taken Unknown] atorvastatin 40 mg tablet 40 mg PO DAILY 05/04/22 [History Last Taken Unknown] carvedilol 6.25 mg tablet (Coreg) 6.25 mg PO BID 05/04/22 [History Last Taken Unknown] clopidogrel 75 mg tablet (Plavix) 75 mg PO DAILY 05/04/22 [History Last Taken Unknown] cephalexin 500 mg capsule 500 mg PO Q8H #21 CAPSULES 05/10/22 [Rx Last Taken Unknown] Allergy/AdvReac Type Severity Reaction Status Date / Time Penicillins [PCN] Allergy Hives Verified 05/10/22 11:37 azathioprine [From Imuran] AdvReac Vomiting Verified 05/10/22 11:37 colchicine AdvReac Other Verified 05/10/22 11:37 doxycycline AdvReac Rash Verified 05/10/22 11:37 famotidine [From Pepcid] AdvReac Other Verified 05/10/22 11:37 griseofulvin AdvReac NEEDS Verified 05/10/22 11:37 [From Priti-PEG FOLLOW-UP (ultramicrosize)] Sulfa (Sulfonamide AdvReac Other Verified 05/10/22 11:37 Antibiotics) Family History Father Heart disease Pacemaker Mother Heart disease Surgical History H/O cataract extraction h/o mass removed from hip H/O tubal ligation Hx of cholecystectomy Presence of coronary angioplasty implant and graft Status post colon resection Social History household members: spouse Smoking Status: Never smoker alcohol intake: never substance use type: does not use caffeine: No ROS ROS ED Constitutional Constitutional ED: Denies chills or fever(s) Eyes Eyes: Denies blurry vision or change in vision ENT ENT ED: Reports as per HPI, epistaxis, nasal congestion, rhinorrhea and sore throat; Denies ear pain Cardiovascular Cardiovascular: Denies chest pain or palpitations Respiratory/Chest Respiratory/Chest: Denies cough or dyspnea Gastrointestinal Gastrointestinal: Denies abdominal pain, diarrhea, nausea or vomiting Genitourinary Genitourinary ED: Denies dysuria or hematuria Musculoskeletal Musculoskeletal: Denies myalgias or neck pain Integumentary Denies abscess or rash Neurologic Neurologic: Denies headache(s), paresthesias or weakness Psychiatric Psychiatric: Denies depression or suicidal thoughts Endocrine Endocrinology: Denies polydipsia or polyuria EXAM Physical Exam Const Vital Signs: 05/10/22 11:37 Temperature 96.8 F L Temperature Source Temporal Pulse Rate 47 L Respiratory Rate 18 Blood Pressure 112/53 L Blood Pressure Mean 72 Pulse Ox 100 Oxygen Delivery Method Room Air Positive well nourished and well developed General Appearance ED: well developed and NAD HEENT Reports moist mucous membranes HEENT Narrative: Rapid Rhino in place right side with no bleeding around it. Left sided blood clots no active bleeding, no posterior oropharyngeal blood or bleeding. Not able to move air well through the left side. No distress. normocephalic and atraumatic Throat: Negative for posterior oropharynx abnormal Eyes PERRL and EOMs intact bilaterally Neck no lymphadenopathy, supple and no meningeal signs Resp normal respiratory effort Effort and Inspection: able to speak in complete sentences Cardio no murmurs Rate: regular rate Rhythm: regular rhythm Neuro oriented x3, CN's II-XII intact bilaterally and no sensory deficits noted Sensorium / Orientation: alert Motor Exam: strength 5/5 throughout Skin Lesions: no lesions Rashes: no rashes MDM MDM MDM Narrative Medical decision making narrative: Labs obtained, she does not have thrombocytopenia with platelets of 139. The rest of her work-up is unremarkable her hemoglobin is stable 9.8. Discussed with Dr. Rose he advises placing a 7.5 cm Merocel packing in the left side and discharging her home to follow-up next week if this controls bleeding does not have any major issues, citing the fact that she will likely have recurrent bleeding on the left side if we do nothing even if she is not bleeding now. I think that sounds reasonable. She will have to continue the clopidogrel for now since she has stents, and nonlife-threatening bleeding at the current time. We will place her on cephalexin since she is going to have these PACs and for a week or more. Lab Data Attestation: I reviewed the patient's lab results. Labs: Laboratory Results - last 24 hr 05/10/22 05/10/22 05/10/22 12:30 12:30 12:30 WBC 9.9 RBC 3.36 L Hgb 9.8 L Hct 31.9 L MCV 94.9 MCH 29.2 MCHC 30.7 L RDW Std Deviation 59.5 H RDW Coeff of Samreen 17.1 H Plt Count 139 L MPV 10.1 Immature Gran % (Auto) 0.500 Neut % (Auto) 73.4 H Lymph % (Auto) 14.6 L Titus % (Auto) 10.1 H Eos % (Auto) 1.1 Baso % (Auto) 0.3 Absolute Neuts (auto) 7.2 Absolute Lymphs (auto) 1.44 Nucleated RBC % 0 PT 13.8 INR 1.1 Sodium 135 L Potassium 3.9 Chloride 101 Carbon Dioxide 27.0 Anion Gap 7 BUN 16 Creatinine 0.81 Estim Creat Clear Calc 40.26 Est GFR (MDRD) Af Amer 87 Est GFR (MDRD) Non-Af 72 BUN/Creatinine Ratio 19.8 Glucose 113 H Calcium 8.8 Procedures Other Procedures Procedure(s): Nasal packing: Patient locally anesthetized with Dr. Ivett andrade, 3 cc intranasally left side. No active bleeding. Subsequently, a 7.5 cm Merusel with a breathing tube and it was placed gently and completely, and then inflated the sponge with sterile water. Tolerated well by the patient no complications, no bleeding before or after. Discharge Plan Triage Chief Complaint: Nosebleed ED Provider: Manuel Pickett Dx/Rx/DC Orders Clinical Impression: Epistaxis Instructions: ED Epistaxis (Adult) Prescriptions: New cephalexin [cephalexin] 500 mg capsule 500 mg PO Q8H Qty: 21 0RF No Action potassium chloride 10 mEq tablet,ER particles/crystals 10 meq PO MOWEFR pantoprazole [Protonix] 40 mg tablet,delayed release (DR/EC) 40 mg PO DAILY carvedilol [Coreg] 6.25 mg tablet 6.25 mg PO BID Rx Instructions: must administer with a meal/food clopidogrel [Plavix] 75 mg tablet 75 mg PO DAILY atorvastatin 40 mg tablet 40 mg PO DAILY levothyroxine 75 MCG tablet 75 mcg PO DAILY Rx Instructions: name brand synthroid budesonide 3 MG capsule,delayed,extend.release 3 mg PO DAILY hydroxychloroquine 200 MG tablet 200 mg PO DAILYCM brimonidine 1 DROP bottle 1 drp EACH EYE BID timolol maleate 1 DROP drops 1 drp EACH EYE DAILY cholecalciferol (vitamin D3) 2,000 UNIT capsule 2,000 unit PO DAILY hydrocortisone 5 MG tablet 10 mg PO DAILY Label Comments: TAKE 1 AND 1/2 TABLET BY MOUTH ONCE DAILY AND NEEDED STRESS DOSE artificial tears solution Drops 1 drp OPHTHALMIC (EYE) 4XD Eylea 2 mg/0.05 mL Syringe 2 mg INTRAVITREAL .[id number] Rx Instructions: 02/27/22 Creon 12,000-38,000 -60,000 unit capsule,delayed release(DR/EC) 1 cap PO DAILY Lumigan 0.01 % Drops 1 drp EACH EYE QHS Probiotic 10 billion cell Capsule 10,000 mmu cells PO DAILY furosemide 40 mg tablet 40 mg PO QODAY simethicone 80 mg Tablet,Chewable 80 mg PO TIDCM Primary Care Provider: Ashvin Cardenas Referrals: Castro Ingram MD [Med Staff - Active Staff] - 05/15/22 Ashvin Cardenas MD [Primary Care Provider] - Disposition Disposition: Home, Self Care
[2022-05-10 15:56] VITALS: PULSE 52; RESP 17; O2SAT 97
== END 2022-05-10 16:05 | disposition home or self-care (01) ==
PROVIDERS: Emergency Provider Emergency Medicine; PCP Family Medicine; Visit Provider Emergency Medicine
DX: R04.0 Epistaxis (principal); I48.91 Unspecified atrial fibrillation; I10 Essential (primary) hypertension; E78.5 Hyperlipidemia, unspecified; I25.10 Atherosclerotic heart disease of native coronary artery without angina pectoris; E03.9 Hypothyroidism, unspecified; I25.2 Old myocardial infarction; Z79.02 Long term (current) use of antithrombotics/antiplatelets; Z79.899 Other long term (current) drug therapy; Z95.5 Presence of coronary angioplasty implant and graft; Z86.73 Personal history of transient ischemic attack (TIA), and cerebral infarction without residual deficits
CPT/HCPCS: 30901; 80048; 85025; 85610; 99283; A4216

== ENCOUNTER → 2022-07-03 | Outpatient (CLI) | payer MEDICARE, SELFPAY ==
[2022-07-03 15:26] LABS: Mucous, Urine 0 SEEN /hpf (<or=2+)
[2022-07-03 17:41] LABS: Absolute Lymphocyte Count 1.74 X10^3/uL (0.83-4.51); Absolute Neutrophil Count 5.7 X10^3/uL (2.0-7.7); Basophil# 0.04 X10^3/uL; Basophil% 0.5 % (0-1); Eosinophils% 1.2 % (0-5); Hematocrit 40.3 % (37-47); Hemoglobin 12.5 g/dL (12.0-15.0); Lymphocyte # 1.74 X10^3/ul (0.83-4.51); Lymphocyte % 20.3 % (19-41); Mean Corpuscular Hgb 28.8 pg (27.0-32.0); Mean Corpuscular Volume 92.9 fL (81-99); Monocyte# 0.93 X10^3/uL; Monocyte% 10.8 % (0-10); NRBC Flagged by Analyzer 0 % (0-5); Neutrophil # 5.72 X10^3/uL (2.7-7.7); Neutrophil % 66.6 % (47-70); Platelet Count 151 K/mm3 (150-450); RBC Distribution Width CV 17.3 % (11.6-14.6); RBC Distribution Width SD 59.4 fl (35.1-43.9); Red Blood Count 4.34 M/mm3 (4.2-5.4); White Blood Count 8.6 K/mm3 (4.4-11.0)
[2022-07-03 17:51] LABS: Color, Urine Yellow (Yellow); Glucose, Dipstick Normal (Normal); Ketone-Dipstick Negative (Negative); Leukocyte Esterase-Dipstick 500 /ul (Negative); Nitrite-Dipstick Negative (Negative); Occult Blood-Urine Negative /ul (Negative); Protein-Dipstick 15 mg/dl (Negative); Specific Gravity, Urine 1.015 (1.002-1.030); Urine Bilirubin Dipstick Negative (Negative); Urine Clarity Clear (Clear); Urine Urobilinogen Normal (Normal)
[2022-07-03 17:53] LABS: ALB/GLOB Ratio 0.9 RATIO (0.9-2.4); AST(SGOT) 29 U/L (15-37); Alanine Aminotransfer ALT/SGPT 36 U/L (13-56); Albumin, Serum 3.5 g/dL (3.2-5.0); Alkaline Phosphatase 80 U/L (45-117); Anion Gap 9 (5-15); BUN 20 mg/dL (7-18); BUN/Creat Ratio 25.5 RATIO (10-20); Calcium,Total 8.9 mg/dL (8.5-10.1); Chloride 100 mmol/L (98-107); Creatinine, Serum 0.78 mg/dL (0.55-1.02); EST Glomerular Filtration Rate 75 mL/min (>60); Est Glom Filt Rate - Afr Amer 90 mL/min (>60); Globulin 4.1 g/dL (2.2-4.2); Glucose 110 mg/dL (74-106); LDH 207 U/L (84-246); Potassium 4.1 mmol/L (3.5-5.1); Protein, Total 7.6 g/dL (6.4-8.2); Sodium Level 137 mmol/L (136-145)
[2022-07-03 18:07] LABS: Bacteria RARE /hpf (None Seen); Red Blood Cells-Urine 0-5 SEEN /hpf (0-5); Squamous Epithelial Cells - UA 0-5 SEEN /hpf (5-10); White Blood Cells 0-5 SEEN /hpf (0-5)
[2022-07-03 18:11] LABS: Erythrocyte Sedimentation Rate 13 mm/hr (0-30)
[2022-07-05 22:06] LABS: Albumin 3.7 g/dL (2.9-4.4); Alpha-1-Globulins 0.3 g/dL (0.0-0.4); Alpha-2-Globulins 0.9 g/dL (0.4-1.0); Free Kappa Light Chains 30.3 mg/L (3.3-19.4); Free Lambda Light Chains 25.2 mg/L (5.7-26.3); Gamma Globulin 1.7 g/dL (0.4-1.8); Immunoglobulin A 199 mg/dL (64-422); Immunoglobulin G 1838 mg/dL (586-1602); Immunoglobulin M 29 mg/dL (26-217); PROEL- TOTAL PROTEIN 7.7 g/dL (6.0-8.5)
== END | disposition home or self-care (01) ==
LOC: MTLAB 15:19
PROVIDERS: Internal Medicine Medical Oncology; PCP Family Medicine; Referring Provider Internal Medicine Rheumatology; Visit Provider Internal Medicine Rheumatology
DX: R82.90 Unspecified abnormal findings in urine (principal)
CPT/HCPCS: 36415; 80053; 81001; 82784; 83615; 83883; 84165; 85025; 85652; 86334

== ENCOUNTER → 2022-07-06 | Outpatient (CLI) | payer MEDICARE, SELFPAY ==
[2022-07-06 12:47] LABS: AST(SGOT) 18 U/L (15-37); Alanine Aminotransfer ALT/SGPT 30 U/L (13-56); Albumin, Serum 3.5 g/dL (3.2-5.0); Alkaline Phosphatase 67 U/L (45-117); Bilirubin, Direct 0.21 mg/dL (0.00-0.30); Cholesterol 162 mg/dL (200); Globulin 3.8 g/dL (2.2-4.2); High Density Lipoprotein 58 mg/dL; Protein, Total 7.3 g/dL (6.4-8.2); Triglycerides 156 mg/dL; Very Low Density Lipoprotein 31 mg/dL (5-40)
== END | disposition home or self-care (01) ==
LOC: MTLAB 10:50
PROVIDERS: PCP Family Medicine; Referring Provider Internal Medicine Cardiovascular Disease; Visit Provider Internal Medicine Cardiovascular Disease
DX: E78.5 Hyperlipidemia, unspecified (principal); I25.10 Atherosclerotic heart disease of native coronary artery without angina pectoris; Z95.5 Presence of coronary angioplasty implant and graft
CPT/HCPCS: 36415; 80061; 80076

== ENCOUNTER → 2022-09-04 | Outpatient (CLI) | payer MEDICARE, SELFPAY ==
--- NOTE | 2022-09-04 11:08 | RAD_ITS ---
INDICATION: ABD DISTENTION EXAMINATION/TECHNIQUE: X-RAY - 3 XR Abdomen Series W/ Chest 1 View COMPARISON: FINDINGS: --Chest: LINES/DEVICES: None. LUNGS: No consolidation, edema or effusion. No pneumothorax. MEDIASTINUM AND CARDIOVASCULAR STRUCTURES: Cardiac silhouette not enlarged. Calcified aortic arch. Central airways and mediastinal contour are unremarkable. BONES AND SOFT TISSUES: Mild degenerative vertebral changes. --Abdomen: BOWEL GAS PATTERN: Non-obstructive. No bowel or stomach distention. Probable pancreatic calcifications and calcified node. Calcified aorta. There is left-sided colostomy. RAD/Acute Abdomen Inc Chest IMPRESSION: No sign of bowel obstruction. Electronically Signed: Maycol Celaya DO at 23:19 EST Reading Location ID and State: [facility] / [place] Tel [phone], Service support ,
== END | disposition home or self-care (01) ==
LOC: MTRAD 11:07
PROVIDERS: PCP Family Medicine; Referring Provider Family Medicine; Visit Provider Family Medicine
DX: R14.0 Abdominal distension (gaseous) (principal)
CPT/HCPCS: 74022

== ENCOUNTER → 2022-09-07 | Outpatient (CLI) | payer MEDICARE, SELFPAY ==
--- NOTE | 2022-09-07 11:30 | US_ITS ---
STUDY: ABDOMINAL ULTRASOUND - ascites survey. REASON FOR VISIT: Female, 82 years old order abdominal ultrasound to check for ascites -- ascites survey only TECHNIQUE: Ultrasound evaluation of the 4 quadrant was performed with real-time and static cheatham-scale imaging. TECHNICAL QUALITY: Adequate. COMPARISON: None. FINDINGS: A survey of the 4 quadrants was obtained. No evidence of ascites. US/Abdomen Limited IMPRESSION: No evidence of ascites. Electronically Signed: Emeka England MD at 14:27 EST ,
== END | disposition home or self-care (01) ==
LOC: US 11:27
PROVIDERS: PCP Family Medicine; Referring Provider Family Medicine; Visit Provider Family Medicine
DX: R14.0 Abdominal distension (gaseous) (principal)
CPT/HCPCS: 76705

== ENCOUNTER → 2022-09-12 | Outpatient (CLI) | payer MEDICARE, SELFPAY ==
--- NOTE | 2022-09-12 13:43 | CT_ITS ---
STUDY: CT ABDOMEN AND PELVIS WITH CONTRAST REASON FOR EXAM: Female, 82 years old. AUTOIMMUNE HEPATITIS, GENERALIZED ABDOMINAL PAIN. History of prior bowel resection. Colostomy. RADIATION DOSAGE (If Supplied By Facility): CTDIvol = ( 19.99 ) mGy, DLP = ( 440.08 ) mGycm TECHNIQUE: Transaxial images were obtained from the dome of the diaphragm to the symphysis pubis without oral contrast. Oral and amp; IV Readi-CAT and amp; 100mL Isovue-300 was administered. Sagittal and coronal images were reconstructed. Individualized dose optimization techniques were used for this CT. COMPARISON: Comparison is made with prior study dated 01/11/2022. FINDINGS: The visualized lung bases are unremarkable. Coronary artery calcification. Aortic valve replacement. Normal liver. The patient is status post cholecystectomy. Normal spleen. There are pancreatic calcifications in the distribution of the ducts consistent with chronic pancreatitis. Normal bilateral adrenal glands. Normal right kidney. Normal left kidney. Normal visualized stomach. Normal small intestine. A colostomy is seen in the left anterior abdominal wall. The appendix is visualized and appears normal. There is diffuse atherosclerotic calcification of the abdominal aorta, without a demonstrated aneurysm. Normal inferior vena cava. Normal retroperitoneum. Normal urinary bladder. Enlarged fibroid uterus. Normal abdominal wall. There are diffuse degenerative changes of the visualized lumbar spine. CT/Abdomen/Pelvis WITH Contrast IMPRESSION: Colostomy is seen in the anterior left abdominal wall. Enlarged fibroid uterus. Diffuse pancreatic calcifications. Electronically Signed: Emeka England MD at 15:28 EST ,
[2022-09-13 09:12] LABS: CREATININE FINGERSTICK < 0.90 mg/dL (0.55-1.02); EGFR FINGERSTICK > 60 mL/min (>60)
== END | disposition home or self-care (01) ==
LOC: CT 13:41
PROVIDERS: PCP Family Medicine
DX: K75.4 Autoimmune hepatitis (principal); R10.84 Generalized abdominal pain
CPT/HCPCS: 74177; Q9967

== ENCOUNTER → 2022-10-26 | Outpatient (CLI) | payer MEDICARE, SELFPAY ==
[2022-10-26 15:37] LABS: Bacteria 0 SEEN /hpf (None Seen); Mucous, Urine 0 SEEN /hpf (<or=2+); Red Blood Cells-Urine 0 SEEN /hpf (0-5); Squamous Epithelial Cells - UA 0 SEEN /hpf (5-10); White Blood Cells 0 SEEN /hpf (0-5)
[2022-10-26 18:17] LABS: Color, Urine Straw (Yellow); Glucose, Dipstick Normal (Normal); Ketone-Dipstick Negative (Negative); Leukocyte Esterase-Dipstick 25 /ul (Negative); Nitrite-Dipstick Negative (Negative); Occult Blood-Urine Negative /ul (Negative); Protein-Dipstick Negative (Negative); Urine Bilirubin Dipstick Negative (Negative); Urine Clarity Clear (Clear); Urine Urobilinogen Normal (Normal)
== END | disposition home or self-care (01) ==
LOC: MTLAB 15:34
PROVIDERS: PCP Family Medicine; Referring Provider Family Medicine; Visit Provider Family Medicine
DX: R82.81 Pyuria (principal)
CPT/HCPCS: 81001; 87015; 87086; 87088; 87116; 87205; 87206

== ENCOUNTER 2022-11-01 08:22 | Emergency (ER) | payer MEDICARE, SELFPAY ==
[2022-11-01] VITALS (37 sets, daily range): BP systolic 115–179; BP diastolic 52–79; PULSE 92–105; RESP 16–35; TEMP 37.6; O2SAT 94–98; BMI 26.1
--- NOTE | 2022-11-01 08:40 | EKG12_ITS ---
Test Reason : CP Blood Pressure : / mmHG Vent. Rate : 098 BPM Atrial Rate : 098 BPM P-R Int : 152 ms QRS Dur : 080 ms QT Int : 358 ms P-R-T Axes : 061 026 023 degrees QTc Int : 457 ms Sinus rhythm with occasional Premature ventricular complexes Possible Left atrial enlargement Nonspecific ST abnormality Abnormal ECG Confirmed by DEJA COELLO, GARETH ([id number]), image editor KEYLA CASTELLANOS ([id number]) on 11/06/2022 10:53:05 AM Referred By: JANELL Confirmed By:GARETH SHORT MD
--- NOTE | 2022-11-01 08:43 | EDS_ITS ---
HPI History of Present Illness Chief Complaint: Palpitations Detail of Chief Complaint: Short of breath, palpitations, chest heaviness Informant: patient and family Onset/Context/Timing Onset: Today Narrative Narrative: Patient presents secondary to shortness of breath, palpitations, chest heaviness. She states has been having chest heaviness that she thought was more reflux related the last several evenings. This particular episode started at 3 AM this morning and has persisted. She states that she has felt palpitations and was somewhat short of breath. She has not had significant cough or congestion. She did feel as if she was chilling and her temperature here on arrival is 99.7. Patient does have extensive cardiac history having an NSTEMI in March of last year. She had multivessel disease and 2 bad valves and was transferred to [facility]. She had high risk PCI performed. Daughter states they were going to do a staged procedure better now not sure they will do any additional interventions. [facility] Medical History Adrenal insufficiency Aortic insufficiency Atherosclerotic heart disease of [place] coronary artery without angina pectoris Atrial fibrillation Autoimmune hepatitis Chronic hyponatremia COLONOSCOPY Diverticulitis Elevated troponin Glaucoma Hearing loss, left Hearing loss, right Heart disease Hepatitis History of left heart catheterization (LHC) (~03/27/22) History of non-ST elevation myocardial infarction (NSTEMI) HTN (hypertension) Hyperlipidemia Hypertension Hyperthyroidism Hypothyroidism Idiopathic thrombocytopenia Lupus Macular degeneration Migraines Monoclonal gammopathies NASAL POLYP REMOVED Non-smoker Nonrheumatic aortic (valve) stenosis with insufficiency Nonrheumatic mitral valve stenosis with insufficiency Osteopenia Presence of stent in coronary artery (~04/06/22) Pulmonary arterial hypertension Rheumatic fever Severe mitral regurgitation Sleep apnea 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 Tachycardia Home Medications brimonidine 0.15 % eye drops 1 drp EACH EYE BID eye drops 06/23/17 [History Last Taken 01/11/22] budesonide 3 mg capsule,delayed,extended release 3 mg PO DAILY inflammation 06/23/17 [History Last Taken 01/10/22] hydroxychloroquine 200 mg tablet 200 mg PO DAILYCM lupus 06/23/17 [History Last Taken 01/10/22] levothyroxine 75 mcg tablet 75 mcg PO DAILY thyroid 06/23/17 [History Last Taken 01/11/22] timolol maleate 0.5 % eye drops 1 drp EACH EYE DAILY eye drops 06/23/17 [History Last Taken 01/11/22] cholecalciferol (vitamin D3) 50 mcg (2,000 unit) capsule 2,000 unit PO DAILY SUPPLEMENT 07/30/19 [History Last Taken 01/10/22] aflibercept 2 mg/0.05 mL intravitreal syringe (Eylea) 2 mg intravitreal .[id number] EYE HEALTH 03/28/21 [History Last Taken 01/09/22] artificial tears solution eye drops 1 drp ophthalmic (eye) 4XD dry eyes 03/28/21 [History Last Taken Unknown] hiayzc-ctqebddx-kududte 12,000-38,000-60,000 unit capsule,delayed rel (Creon) 1 cap PO DAILY enzymes 04/29/21 [History Last Taken 01/10/22] bimatoprost 0.01 % eye drops (Lumigan) 1 drp EACH EYE Q EYE HEALTH 01/11/22 [History Last Taken 01/11/22] furosemide 40 mg tablet 40 mg PO QODAY fluid pill 01/21/22 [History Last Taken 03/25/22] atorvastatin 40 mg tablet 40 mg PO DAILY 05/04/22 [History Last Taken Unknown] clopidogrel 75 mg tablet (Plavix) 75 mg PO DAILY 05/04/22 [History Last Taken Unknown] ferrous sulfate 325 mg (65 mg iron) tablet 325 mg PO Q OTHER DAY 05/24/22 [History Last Taken Unknown] hydrocortisone 5 mg tablet 7.5 mg PO DAILY steroid 05/24/22 [History Last Taken Unknown] Lactobacillus acidophilus 10 billion cell capsule (Probiotic) 10,000 mmu cells PO DAILY PRN IMMUNE HEALTH 07/13/22 [History Last Taken Unknown] aspirin 81 mg tablet,delayed release (Adult Low Dose Aspirin) 81 mg PO DAILY 07/13/22 [History Last Taken Unknown] cyanocobalamin (vitamin B-12) 100 mcg tablet 100 mcg PO DAILY 07/13/22 [History Last Taken Unknown] potassium chloride 10 mEq tablet,extended release(part/cryst) 10 meq PO Q OTHER DAY SUPPLEMENT' 07/13/22 [History Last Taken Unknown] carvedilol 12.5 mg tablet 12.5 mg PO BID #180 tabs 07/20/22 [Rx Last Taken Unknown] Allergy/AdvReac Type Severity Reaction Status Date / Time Penicillins [PCN] Allergy Hives Verified 11/01/22 08:27 azathioprine [From Imuran] AdvReac Vomiting Verified 11/01/22 08:27 colchicine AdvReac Other Verified 11/01/22 08:27 doxycycline AdvReac Rash Verified 11/01/22 08:27 famotidine [From Pepcid] AdvReac Other Verified 11/01/22 08:27 griseofulvin AdvReac NEEDS Verified 11/01/22 08:27 [From Priti-PEG FOLLOW-UP (ultramicrosize)] Sulfa (Sulfonamide AdvReac Other Verified 11/01/22 08:27 Antibiotics) Family History Father Heart disease Pacemaker Mother Heart disease Surgical History H/O cataract extraction h/o mass removed from hip H/O tubal ligation Hx of cholecystectomy Presence of coronary angioplasty implant and graft Status post colon resection Social History household members: spouse Smoking Status: Never smoker alcohol intake: never substance use type: does not use caffeine: No ROS ROS ED Constitutional Constitutional ED: Reports chills; Denies fever(s) Eyes Eyes: Denies change in vision or discharge from eye(s) ENT ENT ED: Denies discharge from eye(s), rhinorrhea or sore throat Cardiovascular Cardiovascular: Reports chest pain and palpitations Respiratory/Chest Respiratory/Chest: Reports dyspnea; Denies cough Gastrointestinal Gastrointestinal: Reports other Details: Abdominal bloating ; Denies abdominal pain, diarrhea, nausea or vomiting Genitourinary Genitourinary ED: Denies dysuria Musculoskeletal Musculoskeletal: Denies back pain or extremity pain Integumentary Denies Abrasions or rash Neurologic Neurologic: Denies headache(s) Psychiatric Psychiatric: Denies anxiety or depression Allergic/Immunologic Allergic/Immunologic ED: Denies lip swelling or urticaria EXAM Physical Exam Const Vital Signs: 11/01/22 08:23 11/01/22 08:51 11/01/22 09:23 Temperature 99.7 F H Temperature Source Oral Pulse Rate 103 H 102 H Respiratory Rate 20 H 35 H Respiratory Effort Normal Non-Labored Blood Pressure 179/61 H 138/65 H Blood Pressure Mean 100 89 Pulse Ox 97 98 Oxygen Delivery Method Nasal Cannula Nasal Cannula Oxygen Flow Rate (L/min) 2 11/01/22 09:30 11/01/22 09:30 11/01/22 09:40 Temperature Temperature Source Pulse Rate 96 96 99 Respiratory Rate 21 H 21 H 20 H Respiratory Effort Blood Pressure 144/56 H Blood Pressure Mean 81 Pulse Ox 97 97 Oxygen Delivery Method Oxygen Flow Rate (L/min) 11/01/22 09:50 11/01/22 10:00 11/01/22 10:15 Temperature Temperature Source Pulse Rate 101 H 101 H Respiratory Rate 27 H 32 H Respiratory Effort Blood Pressure 164/52 H Blood Pressure Mean 80 Pulse Ox 98 Oxygen Delivery Method Oxygen Flow Rate (L/min) 11/01/22 10:27 11/01/22 10:30 11/01/22 10:30 Temperature Temperature Source Pulse Rate 97 100 100 Respiratory Rate 23 H 29 H 29 H Respiratory Effort Blood Pressure 168/67 H Blood Pressure Mean 94 Pulse Ox Oxygen Delivery Method Oxygen Flow Rate (L/min) 11/01/22 10:40 11/01/22 10:45 11/01/22 10:50 Temperature Temperature Source Pulse Rate 99 99 98 Respiratory Rate 27 H 32 H 31 H Respiratory Effort Blood Pressure 156/79 H Blood Pressure Mean 95 Pulse Ox 98 98 98 Oxygen Delivery Method Oxygen Flow Rate (L/min) 11/01/22 11:00 11/01/22 11:00 11/01/22 11:10 Temperature Temperature Source Pulse Rate 98 98 101 H Respiratory Rate 32 H 32 H 31 H Respiratory Effort Blood Pressure 162/70 H Blood Pressure Mean 95 Pulse Ox 98 98 98 Oxygen Delivery Method Oxygen Flow Rate (L/min) 11/01/22 11:20 11/01/22 11:30 11/01/22 11:40 Temperature Temperature Source Pulse Rate 100 99 97 Respiratory Rate 27 H 27 H 26 H Respiratory Effort Blood Pressure Blood Pressure Mean Pulse Ox 98 Oxygen Delivery Method Oxygen Flow Rate (L/min) 11/01/22 11:50 11/01/22 12:00 11/01/22 12:00 Temperature Temperature Source Pulse Rate 101 H 101 H 101 H Respiratory Rate 18 28 H 28 H Respiratory Effort Blood Pressure 129/73 H Blood Pressure Mean 88 Pulse Ox 98 97 97 Oxygen Delivery Method Oxygen Flow Rate (L/min) Positive well nourished and well developed General Appearance ED: well developed HEENT Reports normocephalic and head/scalp atraumatic Eyes PERRL and EOMs intact bilaterally Neck supple Chest Wall inspection of chest normal and palpation of chest normal Resp normal respiratory effort and clear to auscultation bilaterally Cardio regular rate and regular rhythm Cardio Narrative: Heart rate intermittently irregular with frequent PVCs noted on environmental monitoring specialist. GI normal to inspection, nondistended, normoactive bowel sounds Palpation: soft Extremity normal to inspection Neuro oriented x3 Neuro Narrative: No focal neurologic deficits. Sensorium / Orientation: alert Psych mental status grossly normal Skin no rashes or lesions noted Heart Score History: Slightly/Non-Suspicious ECG: Normal Age: >/= 65 years Risk Factors: >/= 3 Risk Factors or History of CAD Troponin: >1 - <3 Normal Limit Score: 5 MDM MDM MDM Narrative Medical decision making narrative: Patient placed on environmental monitoring specialist. Labwork obtained to evaluate for leukocytosis, anemia, and electrolyte derangement. EKG obtained to evaluate for cardiac arrhythmia/ischemia. Chest x-ray obtained to evaluate for acute lung pathology, cardiac size, or mediastinal abnormality. Given the patient's elevated temperature she was ordered Tylenol which she declined. After reviewing the EMS note it does not appear she was given aspirin and this was ordered. Blood cultures were obtained as well as urinalysis. History & Record Review Additional record(s) reviewed:: Prior inpatient record and Prior outpatient record Lab Data Attestation: I reviewed the patient's lab results. Labs: Laboratory Results - last 24 hr 11/01/22 11/01/22 11/01/22 09:00 09:00 09:00 WBC 11.8 H RBC 4.36 Hgb 13.5 Hct 42.3 MCV 97.0 MCH 31.0 MCHC 31.9 L RDW Std Deviation 61.1 H RDW Coeff of Samreen 17.2 H Plt Count 139 L MPV 9.5 Immature Gran % (Auto) 1.100 H Neut % (Auto) 71.5 H Lymph % (Auto) 17.9 L [place] % (Auto) 7.6 Eos % (Auto) 1.4 Baso % (Auto) 0.5 Absolute Neuts (auto) 8.4 H Absolute Lymphs (auto) 2.11 Nucleated RBC % 0 D-Dimer Quant (PE/DVT) 2.05 H* Sodium 136 Potassium 3.7 Chloride 103 Carbon Dioxide 27.0 Anion Gap 6 BUN 17 Creatinine 0.84 Estim Creat Clear Calc 46.22 Est GFR (MDRD) Af Amer 84 Est GFR (MDRD) Non-Af 69 BUN/Creatinine Ratio 20.4 H Glucose 85 Lactic Acid Calcium 8.7 Total Bilirubin 0.90 Direct Bilirubin 0.26 AST 26 ALT 44 Alkaline Phosphatase 87 Troponin I High Sens 62 H B-Natriuretic Peptide Total Protein 7.4 Albumin 3.2 Globulin 4.2 Lipase 47 Urine Color Urine Clarity Urine pH Ur Specific [place] Urine Protein Urine Glucose (UA) Urine Ketones Urine Occult Blood Urine Nitrite Urine Bilirubin Urine Urobilinogen Ur Leukocyte Esterase Urine RBC Urine WBC Ur Squamous Epith Cells Urine Bacteria Urine Mucus 11/01/22 11/01/22 11/01/22 09:00 09:00 10:40 WBC RBC Hgb Hct MCV MCH MCHC RDW Std Deviation RDW Coeff of Samreen Plt Count MPV Immature Gran % (Auto) Neut % (Auto) Lymph % (Auto) [place] % (Auto) Eos % (Auto) Baso % (Auto) Absolute Neuts (auto) Absolute Lymphs (auto) Nucleated RBC % D-Dimer Quant (PE/DVT) Sodium Potassium Chloride Carbon Dioxide Anion Gap BUN Creatinine Estim Creat Clear Calc Est GFR (MDRD) Af Amer Est GFR (MDRD) Non-Af BUN/Creatinine Ratio Glucose Lactic Acid 3.0 H* Calcium Total Bilirubin Direct Bilirubin AST ALT Alkaline Phosphatase Troponin I High Sens B-Natriuretic Peptide 503.7 H Total Protein Albumin Globulin Lipase Urine Color Yellow Urine Clarity Sl. Cloudy Urine pH 6.0 Ur Specific [place] 1.010 Urine Protein Negative Urine Glucose (UA) Normal Urine Ketones Negative Urine Occult Blood 10 H Urine Nitrite Negative Urine Bilirubin Negative Urine Urobilinogen Normal Ur Leukocyte Esterase 500 H Urine RBC 0-5 SEEN Urine WBC 25-50 SEEN Ur Squamous Epith Cells 0-5 SEEN Urine Bacteria 1+ Urine Mucus 0 SEEN 11/01/22 11:20 WBC RBC Hgb Hct MCV MCH MCHC RDW Std Deviation RDW Coeff of Samreen Plt Count MPV Immature Gran % (Auto) Neut % (Auto) Lymph % (Auto) [place] % (Auto) Eos % (Auto) Baso % (Auto) Absolute Neuts (auto) Absolute Lymphs (auto) Nucleated RBC % D-Dimer Quant (PE/DVT) Sodium Potassium Chloride Carbon Dioxide Anion Gap BUN Creatinine Estim Creat Clear Calc Est GFR (MDRD) Af Amer Est GFR (MDRD) Non-Af BUN/Creatinine Ratio Glucose Lactic Acid Calcium Total Bilirubin Direct Bilirubin AST ALT Alkaline Phosphatase Troponin I High Sens 112 H B-Natriuretic Peptide Total Protein Albumin Globulin Lipase Urine Color Urine Clarity Urine pH Ur Specific [place] Urine Protein Urine Glucose (UA) Urine Ketones Urine Occult Blood Urine Nitrite Urine Bilirubin Urine Urobilinogen Ur Leukocyte Esterase Urine RBC Urine WBC Ur Squamous Epith Cells Urine Bacteria Urine Mucus Radiography Chest X-Ray - ED: 1 View, Read by ED Physician and CHF Diagnostic Testing: Clinical Impression(s) from Imaging Studies Chest X-Ray 11/01/22 09:10 IMPRESSION: Cardiomegaly and CHF. Electronically Signed: Emeka England MD at 9:51 EDT , Chest CT 11/01/22 10:35 IMPRESSION: Findings suggestive of CHF. Small bilateral effusions with bibasilar atelectasis and scarring. Electronically Signed: Emeka England MD at 11:35 EDT , EKG Initial EKG: Attestation: I personally reviewed and interpreted this EKG as follows: Interpretation: Sinus Rhythm (Sinus at 98 with occasional PVCs. No acute ST change.) Treatment and Re-Evaluation :: CBC reveals a white count of 11.8 with 71% neutrophils. Chemistry studies unremarkable with normal potassium and renal function. LFTs unremarkable. Initial troponin is 62. D-dimer is elevated at 2.05. Lactic acid is 3.0. Chest x-ray appears to show CHF per my interpretation and BNP is added. This is elevated at 503. I do not see that she has had prior BNP values to compare to. Patient was sent for a CTA of the chest, however patient has very poor IV access. IV blew when they tried to inject contrast and a CTA images not able to be obtained. CT that was obtained reveals CHF. 2-hour repeat troponin has gone from 62-1 12. Patient has been given a dose of Lasix. She does have evidence of a UTI with 1+ bacteria and 25-50 white cells. Given her antibiotic allergies she is given a dose of p.o. Cipro. I will start the patient on heparin given her NSTEMI. After discussion with her family she would prefer to transfer back to [facility] where her vision mixer is. I will speak with the transfer line. Discharge Plan Triage Chief Complaint: Palpitations ED Provider: Allie Arredondo Dx/Rx/DC Orders Clinical Impression: Non-ST elevation [place] (NSTEMI), CHF (congestive heart failure), UTI (urinary tract infection) Prescriptions: No Action ferrous sulfate 325 mg (65 mg iron) tablet 325 mg PO Q OTHER DAY clopidogrel [Plavix] 75 mg tablet 75 mg PO DAILY atorvastatin 40 mg tablet 40 mg PO DAILY aspirin [Adult Low Dose Aspirin] 81 mg tablet,delayed release (DR/EC) 81 mg PO DAILY cyanocobalamin (vitamin B-12) 100 mcg tablet 100 mcg PO DAILY levothyroxine 75 MCG tablet 75 mcg PO DAILY Rx Instructions: name brand synthroid budesonide 3 MG capsule,delayed,extend.release 3 mg PO DAILY hydroxychloroquine 200 MG tablet 200 mg PO DAILYCM brimonidine 1 DROP bottle 1 drp EACH EYE BID timolol maleate 1 DROP drops 1 drp EACH EYE DAILY cholecalciferol (vitamin D3) 2,000 UNIT capsule 2,000 unit PO DAILY hydrocortisone 5 mg tablet 7.5 mg PO DAILY Label Comments: TAKE 1 AND 1/2 TABLET BY MOUTH ONCE DAILY AND NEEDED STRESS DOSE artificial tears solution Drops 1 drp OPHTHALMIC (EYE) 4XD Eylea 2 mg/0.05 mL Syringe 2 mg INTRAVITREAL .[id number] Rx Instructions: 02/27/22 Creon 12,000-38,000 -60,000 unit capsule,delayed release(DR/EC) 1 cap PO DAILY Lumigan 0.01 % Drops 1 drp EACH EYE QHS Probiotic 10 billion cell capsule 10,000 mmu cells PO DAILY PRN (Reason: IMMUNE HEALTH) furosemide 40 mg tablet 40 mg PO QODAY potassium chloride 10 mEq tablet,ER particles/crystals 10 meq PO Q OTHER DAY carvedilol 12.5 mg tablet 12.5 mg PO BID Qty: 180 3RF Rx Instructions: must administer with a meal/food Primary Care Provider: Ashvin Cardenas Referrals: Ashvin Cardenas MD [Primary Care Provider] - Disposition Disposition: Acute Care Hospital Discharge Location: [facility]
[2022-11-01 09:10] LABS: Absolute Lymphocyte Count 2.11 X10^3/uL (0.83-4.51); Absolute Neutrophil Count 8.4 X10^3/uL (2.0-7.7); Basophil# 0.06 X10^3/uL; Basophil% 0.5 % (0-1); Eosinophil# 0.17 X10^3/uL; Eosinophils% 1.4 % (0-5); Hematocrit 42.3 % (37-47); Hemoglobin 13.5 g/dL (12.0-15.0); Lymphocyte # 2.11 X10^3/ul (0.83-4.51); Lymphocyte % 17.9 % (19-41); Mean Corp Hgb Conc 31.9 g/dL (32-36); Mean Platelet Vol. 9.5 fl (6.2-12.0); Monocyte# 0.89 X10^3/uL; Monocyte% 7.6 % (0-10); NRBC Flagged by Analyzer 0 % (0-5); Neutrophil # 8.42 X10^3/uL (2.7-7.7); Neutrophil % 71.5 % (47-70); Platelet Count 139 K/mm3 (150-450); RBC Distribution Width CV 17.2 % (11.6-14.6); RBC Distribution Width SD 61.1 fl (35.1-43.9); Red Blood Count 4.36 M/mm3 (4.2-5.4); White Blood Count 11.8 K/mm3 (4.4-11.0)
--- NOTE | 2022-11-01 09:10 | RAD_ITS ---
STUDY: X-RAY CHEST REASON FOR EXAM: Female, 82 years old. cp TECHNIQUE: Single AP portable view of the chest. COMPARISON: Comparison is made with prior study of September 04, 2022. FINDINGS: EKG electrodes are seen. There is evidence of CHF. Blunting of both cost phrenic angles. There is moderate cardiac enlargement. Normal mediastinum and alejandro. Normal visualized pulmonary arteries. There is atherosclerotic calcification of the aortic arch with tortuosity. Normal visualized thoracic spine. Normal visualized ribs, clavicles, and shoulders. There is no demonstrated abnormality of the visualized soft tissue structures of the upper abdomen. RAD/Chest 1 View (Portable) IMPRESSION: Cardiomegaly and CHF. Electronically Signed: Emeka England MD at 9:51 EDT ,
[2022-11-01 09:21] LABS: D-Dimer Quantitative (DVT/PE) 2.05 FEU/ug/m (0.27-0.49)
[2022-11-01 09:25] LABS: AST(SGOT) 26 U/L (15-37); Alanine Aminotransfer ALT/SGPT 44 U/L (13-56); Albumin, Serum 3.2 g/dL (3.2-5.0); Alkaline Phosphatase 87 U/L (45-117); Anion Gap 6 (5-15); BUN 17 mg/dL (7-18); BUN/Creat Ratio 20.4 RATIO (10-20); Bilirubin, Direct 0.26 mg/dL (0.00-0.30); Calcium,Total 8.7 mg/dL (8.5-10.1); Chloride 103 mmol/L (98-107); Creatinine, Serum 0.84 mg/dL (0.55-1.02); EST Glomerular Filtration Rate 69 mL/min (>60); Est Glom Filt Rate - Afr Amer 84 mL/min (>60); Estimated Creatinine Clearance 46.22 ml/min; Globulin 4.2 g/dL (2.2-4.2); Glucose 85 mg/dL (74-106); Lipase 47 U/L (13-75); Potassium 3.7 mmol/L (3.5-5.1); Protein, Total 7.4 g/dL (6.4-8.2); Sodium Level 136 mmol/L (136-145); Troponin-I HS (w/2H Reflex) 62 pg/mL (3.0-54.0)
[2022-11-01] MEDS: 0.9% Normal Saline 1,000 ML 150 ML IV (09:25)
[2022-11-01 09:41] LABS: BNP,B-Type NATRIURETIC PEPTIDE 503.7 pg/mL (0-100)
--- NOTE | 2022-11-01 10:35 | CT_ITS ---
STUDY: CT CHEST WITHOUT CONTRAST REASON FOR EXAM: Female, 82 years old. Pulmonary embolism RADIATION DOSAGE (If Supplied By Facility): CTDIvol = ( 17.47 ) mGy, DLP = ( 245.64 ) mGycm TECHNIQUE: Transaxial imaging was performed without the administration of intravenous contrast material. Multiplanar coronal and sagittal images were reformatted. Individualized dose optimization techniques were used for this CT. COMPARISON: Comparison is made with prior chest radiograph done earlier in the day. FINDINGS: CHEST Increased interstitial markings and septal markings in keeping with CHF. Small bilateral pleural effusions slightly worse on the right side. Bibasilar atelectasis is more prominent at the right lung base. Mild degree of bronchiectasis at the lung bases. There are calcifications of the coronary arteries. There are multiple small lymph nodes within the mediastinum, which are normal in size and morphology most compatible with reactive lymph hyperplasia. Normal hilar regions. Normal unenhanced pulmonary arteries. There is atherosclerotic calcification of the aortic arch with tortuosity and elongation of the aortic arch and descending thoracic aorta. There are multi-level degenerative changes of the thoracic spine. Diffuse pancreatic calcifications suggestive of chronic pancreatitis. CT/Chest without Contrast IMPRESSION: Findings suggestive of CHF. Small bilateral effusions with bibasilar atelectasis and scarring. Electronically Signed: Emeka England MD at 11:35 EDT ,
[2022-11-01 10:43] LABS: Mucous, Urine 0 SEEN /hpf (<or=2+)
[2022-11-01 10:46] LABS: Color, Urine Yellow (Yellow); Glucose, Dipstick Normal (Normal); Ketone-Dipstick Negative (Negative); Leukocyte Esterase-Dipstick 500 /ul (Negative); Nitrite-Dipstick Negative (Negative); Occult Blood-Urine 10 /ul (Negative); Protein-Dipstick Negative (Negative); Urine Bilirubin Dipstick Negative (Negative); Urine Clarity Sl. Cloudy (Clear); Urine Urobilinogen Normal (Normal)
[2022-11-01 10:53] LABS: Red Blood Cells-Urine 0-5 SEEN /hpf (0-5)
[2022-11-01 10:54] LABS: Bacteria 1+ /hpf (None Seen); Squamous Epithelial Cells - UA 0-5 SEEN /hpf (5-10); White Blood Cells 25-50 SEEN /hpf (0-5)
[2022-11-01 11:03] LABS: Reflex Troponin-HS? (from REC) Y
[2022-11-01] MEDS: Aspirin 81 MG TAB.CHEW 324 MG PO (11:14)
[2022-11-01] MEDS: Furosemide 40 MG/4 ML Vial IV (11:37)
[2022-11-01 11:46] LABS: Troponin-I HS 112 pg/mL (3.0-54.0)
[2022-11-01] MEDS: Ciprofloxacin 500 MG Tablet PO (12:29)
[2022-11-01 13:03] LABS: Reflex Lactate? Y
[2022-11-01 13:11] LABS: International Normalized Ratio 1.1
[2022-11-01 13:12] LABS: Partial Thromboplast Time 26.6 Seconds (24.1-36.2)
[2022-11-01] MEDS: Heparin Injection (Vial) 5,000 UNIT/ML VIAL 3500 UNIT IV (13:30)
[2022-11-01] MEDS: HEPARIN/D5w 25,000 UNITS 25,000 UNITS/250 ML IV.SOLN. 7 UNITS CONT INF (13:31)
[2022-11-01] MEDS: Ondansetron 4 MG/2 ML Vial IV (13:46)
== END 2022-11-01 15:42 | disposition short-term general hospital (02) ==
PROVIDERS: Emergency Provider Emergency Medicine; PCP Family Medicine; Visit Provider Emergency Medicine
DX: I21.4 Non-ST elevation (NSTEMI) myocardial infarction (principal); I50.9 Heart failure, unspecified; I11.0 Hypertensive heart disease with heart failure; N39.0 Urinary tract infection, site not specified; E78.5 Hyperlipidemia, unspecified; I25.10 Atherosclerotic heart disease of native coronary artery without angina pectoris
CPT/HCPCS: 71045; 71250; 80048; 80076; 81001; 83605; 83690; 83880; 84484; 85025; 85379; 85610; 85730; 87040; 87086; 87088; 93005; 96365; 96366; 96375; 99285; J7030; A4216; J1940; J2405

== ENCOUNTER → 2022-11-08 | Outpatient (CLI) | payer MEDICARE, SELFPAY ==
--- NOTE | 2022-11-08 15:05 | US_ITS ---
STUDY: ULTRASOUND OF THE FEMALE PELVIS - COMPLETE REASON FOR EXAM: Female, 82 years old. Fibroid uterus in 82y and pyuria LMP: Patient is postmenopausal. TECHNIQUE: Transabdominal and Transvaginal TECHNICAL QUALITY: Adequate. COMPARISON: None. FINDINGS: The uterus is anteverted and is in a midline position. The uterus measures 8.8 cm x 5.4 cm x 3.7 cm. Normal uterine cervix. The endometrium is thickened and measures 3.5 mm in thickness, and is hyperechoic. There is a 2 cm x 1.9 cm x 1.1 cm mass in the endometrium. Biopsy recommended. There is no demonstrated endometrial mass. There is no demonstrated myometrial mass. I.U.D. - The patient does not have an I.U.D. The right ovary is non-visualized. The left ovary is non-visualized. There is no fluid in the cul-de-sac. The pre void volume of the bladder was 282 ml. US/Pelvic w/ Transvaginal IMPRESSION: Endometrial thickening with the 2 cm x 1.9 cm x 1.1 cm endometrial mass. Biopsy recommended. Electronically Signed: Emeka England MD at 15:06 EDT ,
== END | disposition home or self-care (01) ==
LOC: US 15:04
PROVIDERS: PCP Family Medicine; Referring Provider Family Medicine; Visit Provider Family Medicine
DX: D25.9 Leiomyoma of uterus, unspecified (principal)
CPT/HCPCS: 76830; 76856

== ENCOUNTER → 2022-11-22 | Outpatient (CLI) | payer MEDICARE, SELFPAY ==
--- NOTE | 2022-11-22 15:40 | EMB_PTH ---
PATIENT: LIANA VALENCIA [facility] U#:[id number] AGE/SX: 82/F ROOM: RE11/22/[address]: VADIM Michaud : 1940 BED: DIS: 11/22/2022 SPEC #: [id number] RECD: 11/22/22 16:39 STATUS: SRIRAM REQ #: [id number] JOSSELYN: 11/22/22 15:[address]: Milady Ramsey NP DEPT: SURGICAL PATHOLOGY RECD BY: Loida Wheat ENTERED: 11/23/22 09:46 SP TYPE: ENDOM BX/C SUELLEN DR: Dr. Ashvin Cardenas MD Tissues: Endometrium, NOS Procedures: Surgery Specimen Level IV HEADER OPERATION: Endometrial biopsy PRE-OP DIAGNOSIS: Thickened endometrium TISSUE SUBMITTED: Endometrial tissue MICROSCOPIC DIAGNOSIS Endometrium, biopsy: Rare strips of benign glandular mucosa. See comment. AM:zarina 11/24/2022 COMMENT The specimen primarily consists of mucoid material. Clinical correlation is suggested. MICROSCOPIC DESCRIPTION Slides are reviewed. GROSS DESCRIPTION Received is one container labeled with the patient's name and not further designated. The specimen consists of multiple irregular fragments of brown mucoid tissue that in aggregate measure 3.0 x 2.5 x 0.3 cm. The specimen is totally submitted in one cassette. / SJ:zarina 11/23/2022 TC:5 CPT: 89028
[2022-12-01 20:43] LABS: HPV Reflexed? NOT INDICATED
== END | disposition home or self-care (01) ==
PROVIDERS: PCP Family Medicine; Referring Provider Nurse Practitioner Women's Health; Visit Provider Nurse Practitioner Women's Health
DX: Z12.4 Encounter for screening for malignant neoplasm of cervix (principal); R93.89 Abnormal findings on diagnostic imaging of other specified body structures
CPT/HCPCS: 87070; 87205; 88175; 88305; G0145

== ENCOUNTER → 2022-12-06 | Outpatient (CLI) | payer MEDICARE, SELFPAY ==
--- NOTE | 2022-12-06 09:36 | RDU_ITS ---
Reason For Study: Chronic vascular disorders of intestine Aorta Proximal abdominal aorta 1.09 x 1.03 cm . Proximal abdominal aorta peak systolic velocity is 56 cm/sec . Distal abdominal aorta 1.09 x 1.06 cm . Distal abdominal aorta peak systolic velocity is 73.2 cm/sec . Celiac artery, 109.5 cm/sec Splenic artery. 206.3 cm/sec. Hepatic artery, 94.9 cm/sec. SMA origin, 171 cm/sec. SMA prox, 183 cm/sec. SMA mid, 173.3 cm/sec. SMA distal, 124.8 cm/sec. JOHN origin, 154.5 cm/sec. JOHN prox, 138.9 cm/sec. JOHN mid, 144.1 cm/sec. JOHN distal, 123.4 cm/sec. VL/Renal Artery Duplex Ultrasound Interpretation Summary Celiac artery patent with normal velocities and no evidence of stenosis. Superior mesenteric artery patent with normal velocities and no evidence of hayley nosis. Inferior mesenteric artery patent with normal velocities and no evidence of hayley nosis. Ordering Physician: Shalonda Beard Referring Physician: Ashvin Cardenas MD Performed By: Melissa Mccullough RVT
== END | disposition home or self-care (01) ==
PROVIDERS: PCP Family Medicine; Referring Provider Physician Assistant; Visit Provider Physician Assistant
DX: K55.1 Chronic vascular disorders of intestine (principal); K30 Functional dyspepsia; R14.0 Abdominal distension (gaseous)
CPT/HCPCS: 93975

== ENCOUNTER → 2022-12-12 | Outpatient (CLI) | payer MEDICARE, SELFPAY ==
[2022-12-12 15:34] LABS: Anion Gap 8 (5-15); BUN 14 mg/dL (7-18); BUN/Creat Ratio 15.4 RATIO (10-20); Calcium,Total 9.1 mg/dL (8.5-10.1); Chloride 102 mmol/L (98-107); Creatinine, Serum 0.91 mg/dL (0.55-1.02); EST Glomerular Filtration Rate 63 mL/min (>60); Est Glom Filt Rate - Afr Amer 76 mL/min (>60); Glucose 142 mg/dL (74-106); Potassium 3.6 mmol/L (3.5-5.1); Sodium Level 137 mmol/L (136-145)
[2022-12-14 03:07] LABS: AFP, Tumor Marker < 1.8 ng/mL (0.0-8.7)
== END | disposition home or self-care (01) ==
LOC: MTLAB 13:38
PROVIDERS: PCP Family Medicine
DX: I50.42 Chronic combined systolic (congestive) and diastolic (congestive) heart failure (principal); K75.4 Autoimmune hepatitis; R10.84 Generalized abdominal pain
CPT/HCPCS: 36415; 80048; 82105

== ENCOUNTER → 2023-01-02 | Outpatient (CLI) | payer MEDICARE, SELFPAY ==
--- NOTE | 2023-01-02 15:30 | US_ITS ---
EXAM: US PELVIS TRANSABDOMINAL AND TRANSVAGINAL, COMPLETE CLINICAL INDICATION: vaginal discharge TECHNIQUE: Transabdominal and transvaginal pelvic ultrasound was performed with grayscale and color Doppler imaging. Transvaginal imaging was used for better evaluation of the endometrium and adnexa. COMPARISON: No relevant prior studies available. FINDINGS: UTERUS/CERVIX: Heterogeneous mass within the endometrial complex measuring up to 1.9 cm. This may represent a submucosal fibroid versus an endometrial polyp. Recommend direct visualization and tissue diagnosis. Uterus measures 8.0 x 4.7 x 3.9 cm with endometrial complex overall thickness of 5 mm. Small Nabothian cysts in the cervix. Anteverted. No uterine fibroids. RIGHT OVARY: Ovaries are not visualized due to overlying bowel gas and/or positioning. No adnexal masses. LEFT OVARY: See above. FREE FLUID: No free pelvic fluid. BLADDER: Urinary bladder has a prevoid volume of 279 mL. No wall thickening or intraluminal masses or calculi. US/Pelvic (Non ) IMPRESSION: Heterogeneous mass within the endometrial complex measuring up to 1.9 cm. This may represent a submucosal fibroid versus an endometrial polyp. Recommend direct visualization and tissue diagnosis. Electronically Signed: Destin Joshi MD at 2:42 EDT ,
== END | disposition home or self-care (01) ==
LOC: US 15:30
PROVIDERS: PCP Family Medicine; Referring Provider Obstetrics & Gynecology; Visit Provider Obstetrics & Gynecology
DX: N89.8 Other specified noninflammatory disorders of vagina (principal)
CPT/HCPCS: 76830; 76856

== ENCOUNTER → 2023-01-08 | Outpatient (CLI) | payer MEDICARE, SELFPAY ==
--- NOTE | 2023-01-08 03:00 | LES_PTH ---
PATIENT: LIANA VALENCIA LOC: [facility] U#:[id number] AGE/SX: 82/F ROOM: RE01/08/[address]: Dr. Abdullahi May MD : 1940 BED: DIS: 01/08/2023 SPEC #: [id number] RECD: 01/08/23 15:43 STATUS: SRIRAM RECaitlin #: [id number] JOSSELYN: 01/08/23 03:[address]: Abdullahi May DEPT: SURGICAL PATHOLOGY RECD BY: Loida Wheat ENTERED: 01/09/23 10:09 SP TYPE: Lesion OTHR DR: Dr. Ashvin Cardenas MD Tissues: Skin, NOS Procedures: Surgery Specimen Level IV HEADER OPERATION: Excision of stoma papular lesion PRE-OP DIAGNOSIS: Stoma papular lesion TISSUE SUBMITTED: Stoma papular lesion tissue MICROSCOPIC DIAGNOSIS Stoma papular lesion tissue, biopsy: Consistent with stoma with ulceration, acute and chronic inflammation, granulation tissue reaction and reactive changes. NATANAEL:zarina 01/10/2023 MICROSCOPIC DESCRIPTION Slides are reviewed. GROSS DESCRIPTION Received in fixative is one container labeled with the patient's name and designated stoma papular lesion tissue. The specimen consists of a piece of cox-pink soft tissue measuring 0.8 x 0.5 x 0.4 cm. The specimen is inked, bisected and submitted entirely in one cassette. / NATANAEL:zarina 01/09/2023 TC:5 CPT: 17898
== END | disposition home or self-care (01) ==
LOC: LABSPEC 15:49
PROVIDERS: PCP Family Medicine; Referring Provider Surgery; Visit Provider Surgery
DX: L44.9 Papulosquamous disorder, unspecified (principal)
CPT/HCPCS: 88305

== ENCOUNTER → 2023-02-02 | Outpatient (CLI) | payer MEDICARE, SELFPAY ==
[2023-02-02 17:37] LABS: Absolute Lymphocyte Count 1.42 X10^3/uL (0.83-4.51); Basophil# 0.04 X10^3/uL; Basophil% 0.5 % (0-1); Eosinophil# 0.04 X10^3/uL; Eosinophils% 0.5 % (0-5); Hematocrit 42.3 % (37-47); Hemoglobin 13.4 g/dL (12.0-15.0); Lymphocyte # 1.42 X10^3/ul (0.83-4.51); Mean Corp Hgb Conc 31.7 g/dL (32-36); Mean Corpuscular Hgb 30.8 pg (27.0-32.0); Mean Corpuscular Volume 97.2 fL (81-99); Mean Platelet Vol. 10.1 fl (6.2-12.0); Monocyte% 9.6 % (0-10); NRBC Flagged by Analyzer 0 % (0-5); Neutrophil # 5.95 X10^3/uL (2.7-7.7); Neutrophil % 71.2 % (47-70); Platelet Count 158 K/mm3 (150-450); RBC Distribution Width CV 15.9 % (11.6-14.6); RBC Distribution Width SD 56.6 fl (35.1-43.9); Red Blood Count 4.35 M/mm3 (4.2-5.4); White Blood Count 8.4 K/mm3 (4.4-11.0)
[2023-02-02 17:57] LABS: Erythrocyte Sedimentation Rate 15 mm/hr (0-30)
[2023-02-02 18:04] LABS: ALB/GLOB Ratio 0.8 RATIO (0.9-2.4); AST(SGOT) 19 U/L (15-37); Alanine Aminotransfer ALT/SGPT 32 U/L (13-56); Albumin, Serum 3.8 g/dL (3.2-5.0); Alkaline Phosphatase 77 U/L (45-117); Anion Gap 9 (5-15); BUN 18 mg/dL (7-18); BUN/Creat Ratio 18.6 RATIO (10-20); CRP < 2.90 mg/L (0.0-3.0); Calcium,Total 9.1 mg/dL (8.5-10.1); Chloride 99 mmol/L (98-107); Creatinine, Serum 0.97 mg/dL (0.55-1.02); EST Glomerular Filtration Rate 59 mL/min (>60); Est Glom Filt Rate - Afr Amer 71 mL/min (>60); Globulin 4.5 g/dL (2.2-4.2); Glucose 152 mg/dL (74-106); Magnesium 2.2 mg/dL (1.6-2.6); Potassium 3.9 mmol/L (3.5-5.1); Protein, Total 8.3 g/dL (6.4-8.2); Sodium Level 136 mmol/L (136-145)
== END | disposition home or self-care (01) ==
LOC: MFPLAB 16:39
PROVIDERS: PCP Family Medicine; Visit Provider Family Medicine
DX: R10.9 Unspecified abdominal pain (principal); E87.6 Hypokalemia
CPT/HCPCS: 36415; 80053; 83735; 85025; 85652; 86140

== ENCOUNTER 2023-03-13 09:40 | Day surgery (SDC) | payer MEDICARE, SELFPAY ==
[2023-03-13] VITALS (7 sets, daily range): BP systolic 131–164; BP diastolic 54–71; PULSE 76–91; RESP 16; TEMP 36.3–37.2; O2SAT 93–100; BMI 23.5
[2023-03-13] MEDS: Lactated Ringers 1,000 ML 15 ML IV (10:28)
--- NOTE | 2023-03-13 11:00 | HP.PCM_ITS ---
History and Physical Date of Admission: 03/13/23 Intake Vital Signs 01/09/2315:24 02/22/2313:50 02/22/2313:52 Height 4 ft 10 in 4 ft 10 in 4 ft 10 in BP 90/60 Intake Visit Reasons: D&C Is patient in pain?: No Allergies Penicillins [PCN] Allergy (Verified 02/22/23 13:51) HivesSulfa (Sulfonamide Antibiotics) Adverse Reaction (Severe, Verified 02/22/23 13:51) Rashazathioprine [From Imuran] Adverse Reaction (Verified 02/22/23 13:51) Vomitingcolchicine Adverse Reaction (Verified 02/22/23 13:51) Otherdoxycycline Adverse Reaction (Verified 02/22/23 13:51) Rashfamotidine [From Pepcid] Adverse Reaction (Verified 02/22/23 13:51) Othergriseofulvin [From Priti-PEG (ultramicrosize)] Adverse Reaction (Verified 02/22/23 13:51) NEEDS FOLLOW-UP Medications brimonidine 0.15 % eye drops 1 drp EACH EYE BID eye drops 06/23/17 [History Confirmed 02/22/23] budesonide 3 mg capsule,delayed,extended release 3 mg PO DAILY inflammation 06/23/17 [History Confirmed 02/22/23] hydroxychloroquine 200 mg tablet 200 mg PO DAILYCM lupus 06/23/17 [History Confirmed 02/22/23] levothyroxine 75 mcg tablet 75 mcg PO DAILY thyroid 06/23/17 [History Confirmed 02/22/23] cholecalciferol (vitamin D3) 50 mcg (2,000 unit) capsule 2,000 unit PO DAILY SUPPLEMENT 07/30/19 [History Confirmed 02/22/23] aflibercept 2 mg/0.05 mL intravitreal syringe (Eylea) 2 mg intravitreal .[id number] EYE HEALTH 03/28/21 [History Confirmed 02/22/23] artificial tears solution eye drops 1 drp ophthalmic (eye) 4XD dry eyes 03/28/21 [History Confirmed 02/22/23] weigry-vcxskgzk-zawgexm 12,000-38,000-60,000 unit capsule,delayed rel (Creon) 1 cap PO DAILY enzymes 04/29/21 [History Confirmed 02/22/23] bimatoprost 0.01 % eye drops (Lumigan) 1 drp EACH EYE [facility] 01/11/22 [History Confirmed 02/22/23] atorvastatin 40 mg tablet 40 mg PO DAILY 05/04/22 [History Confirmed 02/22/23] clopidogrel 75 mg tablet (Plavix) 75 mg PO DAILY 05/04/22 [History Confirmed 02/22/23] ferrous sulfate 325 mg (65 mg iron) tablet 325 mg PO Q OTHER DAY 05/24/22 [History Confirmed 02/22/23] Lactobacillus acidophilus 10 billion cell capsule (Probiotic) 10,000 mmu cells PO DAILY [facility] 07/13/22 [History Confirmed 02/22/23] aspirin 81 mg tablet,delayed release (Adult Low Dose Aspirin) 81 mg PO DAILY 07/13/22 [History Confirmed 02/22/23] cyanocobalamin (vitamin B-12) 100 mcg tablet 100 mcg PO DAILY 07/13/22 [History Confirmed 02/22/23] pantoprazole 40 mg tablet,delayed release 40 mg PO DAILY 11/15/22 [History Confirmed 02/22/23] sucralfate 1 gram tablet (Carafate) 1 g PO QAC 11/15/22 [History Confirmed 02/22/23] isosorbide dinitrate 10 mg tablet 15 mg PO DAILY 11/22/22 [History Confirmed 02/22/23] carvedilol 12.5 mg tablet 6.25 mg PO BID 11/28/22 [History Confirmed 02/22/23] furosemide 40 mg tablet 40 mg PO DAILY fluid pill 11/28/22 [History Confirmed 02/22/23] hydrocortisone 5 mg tablet 5 mg PO DAILY steroid 11/28/22 [History Confirmed 02/22/23] potassium chloride 10 mEq tablet,extended release(part/cryst) 10 meq PO DAILY SUPPLEMENT' 11/28/22 [History Confirmed 02/22/23] misoprostol 200 mcg tablet (Cytotec) 200 mcg PO .complex #2 tabs 02/22/23 [Rx Confirmed 02/22/23] Is last menstrual period known: No Post menopausal: Yes Patient : No : No PFSH Medical History (Updated 02/22/23 @ 18:[address] Kiki Singh MD) Abdominal pain Adrenal insufficiency Aortic insufficiency Atherosclerotic heart disease of [place] coronary artery without angina pectoris Atrial fibrillation Autoimmune hepatitis Bladder disease Cardiology follow-up encounter Chronic hyponatremia COLONOSCOPY Colostomy in place Dietary restriction Difficulty chewing Difficulty swallowing Diverticulitis Easy bruising Elevated troponin Fatty liver Forgetfulness Gastric reflux Glaucoma Hearing loss, left Hearing loss, right Heart attack (~03/2022) Heart disease Hepatitis History of CHF (congestive heart failure) History of Clostridium difficile infection History of echocardiogram History of edema History of hiatal hernia History of irregular heartbeat History of left heart catheterization (LHC) (~03/27/22) History of non-ST elevation myocardial infarction (NSTEMI) History of steroid therapy Hyperlipidemia Hypertension Hyperthyroidism Hypothyroidism Idiopathic thrombocytopenia Loss of hearing Low iron Lupus Macular degeneration Migraines Monoclonal gammopathies NASAL POLYP REMOVED Non-smoker Nonrheumatic aortic (valve) stenosis with insufficiency Nonrheumatic mitral valve stenosis with insufficiency Osteopenia Presence of stent in coronary artery (~04/06/22) Pulmonary arterial hypertension Rheumatic fever Severe mitral regurgitation 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 Tachycardia Walker as ambulation aid Wears glasses Surgical History H/O cataract extraction H/O dilation and curettage h/o mass removed from hip H/O tubal ligation History of sinus surgery Hx of cholecystectomy Presence of coronary angioplasty implant and graft Status post colon resection (~12/2021) Family History Father Heart disease PacemakerMother Heart disease Social History household members: spouse number of children: 5 current occupational status: retired Smoking Status: Never smoker alcohol intake: never substance use type: does not use caffeine: No additional social history: Barbara Sanford-Daughter- Manages Medical care HPI D&C Details: LIANA VALENCIA is a 83 year old who presents for preop visit for d and c hystero scopy for PMB and endometrial lesion. History 6 Elective abortions Hx Para 5 Spontaneous abortions 1 Hx # Term Pregnancies Ectopic pregnancies Hx # Pregnancies Multiple births # of living children 4 ROS Const Constitutional: Denies fatigue, weight gain or weight loss ENT ENT: Reports system reviewed and no additional complaints, except as documented Cardio Card: Denies chest pain Resp Resp: Denies cough or dyspnea GI GI: Reports as per HPI; Denies abdominal pain, constipation, nausea or vomiting : Denies nipple discharge, urinary frequency, urinary incontinence, urinary hesitancy, urinary urgency, vaginal discharge, vaginal dryness, vaginal odor or vaginal pruritus Musc Musc: Denies arthralgias, back pain or muscle weakness Skin Skin/Breast: Denies alopecia, change in hair, dry skin, breast mass, breast pain, breast skin changes or nipple discharge Neuro Neuro: Reports system reviewed and no additional complaints, except as documented Psych Psych: Reports system reviewed and no additional complaints, except as documented Endo Endo: Denies cold intolerance, excessive sweating, heat intolerance or p olydipsia Vu/Lymph Hematologic/Lymphatic: Denies easy bleeding, Denies easy bruising and Denies lymphadenopathy Exam Const General: cooperative, healthy appearing, comfortable and no acute distress Orientation: alert HENSD Head: normal to inspection and normocephalic Ears: hearing grossly normal bilaterally and external ears normal Nose: external nose normal and nares normal Face and sinus: normal facial exam Neck Neck: normal visual inspection and no lymphadenopathy Thyroid: thyroid normal Chest Chest palpation & inspection: normal inspection of the chest Resp Effort & Inspection: normal respiratory effort Auscultation: clear to auscultation bilaterally Cardio Rate: regular rate Rhythm: regular rhythm Heart Sounds: S1 normal, S2 normal and murmur GI Inspection: normal to inspection and non-distended Palpation: soft and no hepatosplenomegaly Other: stoma present Musc Other: gross motor intact no deficits, full bilateral strength Skin General: no rashes or lesions noted Neuro General: patient alert, patient awake, moves all extremities and no focal motor deficits Motor: muscle tone normal throughout Extrem General: normal to inspection and no pedal edema Psych Appearance: grossly normal Mental Status: mental status grossly normal Affect: normal affect Speech and Movement: speech and movement normal Coding Level of Care Code No Charge Diagnoses Endometrial mass N94.89 History of left heart catheterization (LHC) Z98.890 Pancreatic insufficiency K86.89 Status post partial colectomy Z90.49 Assessment and Plan Assessment and Plan (1) Endometrial mass: Status: Acute Comment: recommend d and c hysteroscopy symphion. s/p cardiac and medicine approval. Hold Plavix 5 days prior to surgery and resume after reviewed with Dr. George per [facility], medical clearance approved, stress dose steroid ordered. (2) History of left heart catheterization (LHC): Status: Acute Comment: LEFT MAIN: Moderate calcification, distal: 75 % Stenosis; LEFT ANTERIOR KOKI CENDING ARTERY: PROX LAD: Moderate calcification, MID LAD: 50 % Stenosis; DIAGONAL 1: Proximal - 75 % Stenosis; CIRCUMFLEX ARTERY: OSTIAL CIRC: 50 % Stenosis, PROX CIRC: Moderate calcification; RIGHT CORONARY ARTERY: Severe calcification PROX RCA: eccentric: 25 % Stenosis MID RCA: eccentric: hazy: 95 % Stenosis, 99 % Stenosis; DISTAL RCA: Mild luminal irregularities; VALVE FINDINGS: Aortic Valve Calcification - moderate, Aortic Valve Insufficiency: Grade 2; Mitral Valve Annulus: Calcification Moderate; AORTIC ROOT: Calcified; RECOMMENDATION: [facility]: evaluation for coronary r evascularization therapy and valvular disease per cardiac cath Dr. Wilson 03/27/22 ;Non obstructive CAD per cardiac cath @ [facility] 06/24/12 (3) Pancreatic insufficiency: Status: Acute (4) Status post partial colectomy: Status: Acute Comment: Patient is recovering well, albeit slowly, from her segmental colectomy with end colostomy on 01/11/2022. She continues to remark of decreased energy. However, on exam she has a well-healed and confirms that she has started to gain some weight. Overall I am very reassured with her progress and have asked her and her daughter both to consider how far she has come since surgery. I have informed her daughter that decreased volume from Mrs. Vo for a distal colostomy is to be expected as the colon returns to his normal function as a dehydrated for the body. Her reports of tenesmus are not unusual given that her rectum is still in place and producing mucus. I would like to address her indigestion complaints?see below. Medications: New misoprostol (Cytotec) take the night before and two hours prior to the procedure 2 tabs 1RF Plan After discussing the patient's diagnosis and treatment plan options, patient wishes to proceed with surgical management. I have discussed with the patient the risks, benefits, and alternatives of the procedure which include but are not limited to risks of anesthesia, bleeding, infection, possible damage to bowel, bladder, or surrounding vasculature which could lead to additional surgery to evaluate any complications. Patient agrees to procedure and wishes to proceed. ACOG/uptodate references given for additional information regarding procedure. UPDATE- I have seen the patient and performed any clinically relevant updates to the history and physical exam. Kiki Singh MD
--- NOTE | 2023-03-13 11:01 | OP.PCM_ITS ---
Problems Associated Problem List Diagnoses (1) Endometrial mass: (2) Bloating symptom: Report of Operation Date of Procedure: 03/13/23 Pre-Operative Diagnosis: see problem list Post-Operative Diagnosis: same Surgery/Procedure Performed:: D&C hysteroscopy polypectomy using symphion Description of Surgical Findings:: Endometrial polyp and irregular asymmetrical endometrial lining Surgeon: Kiki Singh wealth management advisor: None Type of Anesthesia: Local MAC Special Medications: none Specimen's removed: EMC, polyp Drains: none Estimated Blood Loss (mL): 50 Fluids Replaced: crystalloid Description of Procedure: Patient was prepped and draped in a normal sterile fashion under MAC anesthesia. A weighted speculum was placed in the vagina and the anterior lip of the cervix was grasped with a single-tooth tenaculum. A paracervical block was placed with 1% lidocaine. Cervix was progressively dilated to allow passage of a 5 mm hysteroscope. The lining was fully visualized and noted to have an irregular asymmetrical lining with an endometrial polyp present. Uterine sounded to 8 cm. Using the symphion device, the polyp was progressively removed without complications. Direct visual curettage was performed using the device , and all specimens were sent to pathology. All instruments were removed from the vagina and excellent hemostasis was noted. Patient was awoken and taken to recovery in stable condition. Grafts/Implants Used: none Complications none Admit VTE Documentation VTE Present on Admission: No VTE Mechan Device Prophylaxis: SCD's Multi Select Codes Urinary/Genital Urinary/Genital CPT Codes: 21846 Hysteroscopy,EMC, Polypectomy
--- NOTE | 2023-03-13 11:01 | DCINST_ITS ---
Discharge Instructions Diet Discharge Diet: No restrictions Activity Discharge Activity: Return to Normal Activity, May Shower and May Take a Tub Bath (after 1 week) May resume sexual activity in: 1-2 weeks Weight Bearing Status: Weight bearing as tolerated Lifting Restrictions: none Dressing / Incision Call your doctor if you observe: Fever of 101 or Higher, Using more than 1 pad per hour, Shortness of breath and Uncontrolled pain Follow Up Care Please Follow Up With: Kiki Singh MD When: Call [phone] to schedule appointment. Test Results: Test results from this visit will be discussed in further detail at your follow- up appointment, if applicable. Discharge Plan Admission Attending Provider: Kiki Singh Primary Care Provider: Ashvin Cardenas Discharge Orders/Prescriptions Prescriptions: No Action ferrous sulfate 325 mg (65 mg iron) tablet 325 mg PO Q OTHER DAY clopidogrel [Plavix] 75 mg tablet 75 mg PO DAILY atorvastatin 40 mg tablet 40 mg PO DAILY aspirin [Adult Low Dose Aspirin] 81 mg tablet,delayed release (DR/EC) 81 mg PO DAILY cyanocobalamin (vitamin B-12) 100 mcg tablet 100 mcg PO DAILY carvedilol 12.5 mg tablet 6.25 mg PO BID Rx Instructions: 6.25mg half tablet bid pantoprazole 40 mg tablet,delayed release (DR/EC) 40 mg PO DAILY sucralfate [Carafate] 1 gram tablet 1 g PO QAC isosorbide dinitrate 10 mg tablet 15 mg PO DAILY Rx Instructions: allow nitrate-free interval of 12-14 hrs per 24-hr period misoprostol [Cytotec] 200 mcg tablet 200 mcg PO .complex Qty: 2 1RF Rx Instructions: take the night before and two hours prior to the procedure levothyroxine 75 MCG tablet 75 mcg PO DAILY Rx Instructions: name brand synthroid budesonide 3 MG capsule,delayed,extend.release 3 mg PO DAILY hydroxychloroquine 200 MG tablet 200 mg PO DAILYCM brimonidine 1 DROP bottle 1 drp EACH EYE BID cholecalciferol (vitamin D3) 2,000 UNIT capsule 2,000 unit PO DAILY hydrocortisone 5 mg tablet 5 mg PO DAILY Patient Comments: TAKE 1 AND 1/2 TABLET BY MOUTH ONCE DAILY AND NEEDED STRESS DOSE artificial tears solution Drops 1 drp OPHTHALMIC (EYE) 4XD Eylea 2 mg/0.05 mL Syringe 2 mg INTRAVITREAL .[id number] Rx Instructions: 02/27/22 Creon 12,000-38,000 -60,000 unit capsule,delayed release(DR/EC) 1 cap PO DAILY Lumigan 0.01 % Drops 1 drp EACH EYE QHS Probiotic 10 billion cell capsule 10,000 mmu cells PO DAILY furosemide 40 mg tablet 40 mg PO DAILY potassium chloride 10 mEq tablet,ER particles/crystals 10 meq PO DAILY Referrals / Follow Up: Ashvin Cardenas MD [Primary Care Provider] - Disposition Disposition (needs filled in before D/C Order can be placed): Home, Self Care
--- NOTE | 2023-03-13 11:20 | EMB_PTH ---
PATIENT: LIANA VALENCIA LOC: [facility] [place] U#:[id number] AGE/SX: 83/F ROOM: RE03/13/[address]: Dr. Kiki Singh MD : 1940 BED: DIS: 03/13/2023 SPEC #: [id number] RECD: 03/13/23 17:10 STATUS: SRIRAM RECaitlin #: [id number] JOSSELYN: 03/13/23 11:[address]: Kiki Singh DEPT: SURGICAL PATHOLOGY RECD BY: Loida Wheat ENTERED: 03/14/23 10:46 SP TYPE: ENDOM BX/C OTHR DR: Dr. Ashvin Cardenas MD Tissues: Endometrium, NOS Procedures: Surgery Specimen Level IV HEADER OPERATION: Hysteroscopy, D & C Symphion PRE-OP DIAGNOSIS: Endometrial mass TISSUE SUBMITTED: Endometrial shavings MICROSCOPIC DIAGNOSIS Endometrial curettings: Inactive to atrophic endometrium with extensive cystic changes. Fragments of myometrium. See comment. SJ:zarina 03/15/2023 COMMENT The specimen predominantly consists of myometrium. A few endometrial fragments have polypoid appearance and may represent fragments of benign endometrial polyp. Clinical correlation and appropriate follow up are necessary. Please make reference to previous specimen ([id number]) endometrium, biopsy with diagnosis of rare strips of benign glandular mucosa. MICROSCOPIC DESCRIPTION Slides are reviewed. GROSS DESCRIPTION Received in fixative is one container labeled with the patient's name and designated endometrial shavings. The specimen consists of multiple irregular fragments of cox soft tissue that in aggregate measure 3.5 x 3.5 x 1.0 cm. The entire specimen is submitted in four cassettes. / NATANAEL:zarina 03/14/2023 :5 CPT: 46077
[2023-03-13] MEDS: Lidocaine 1% (20 ml mdv) 20 ML Vial (12:56)
== END 2023-03-13 14:15 | disposition home or self-care (01) ==
LOC: SDC 09:44 → AC 09:46
PROVIDERS: PCP Family Medicine; Referring Provider Obstetrics & Gynecology; Visit Provider Obstetrics & Gynecology
PROC: 0UB98ZZ Excision of Uterus, Via Natural or Artificial Opening Endoscopic (ICD-10-PCS; CPT 58558; principal; 2023-03-13 11:05)
DX: N84.0 Polyp of corpus uteri (principal); Z93.3 Colostomy status; I27.20 Pulmonary hypertension, unspecified; I48.91 Unspecified atrial fibrillation; E27.40 Unspecified adrenocortical insufficiency; D69.3 Immune thrombocytopenic purpura; K75.4 Autoimmune hepatitis; N85.8 Other specified noninflammatory disorders of uterus; E03.9 Hypothyroidism, unspecified; I10 Essential (primary) hypertension; I25.10 Atherosclerotic heart disease of native coronary artery without angina pectoris; E78.5 Hyperlipidemia, unspecified; E87.1 Hypo-osmolality and hyponatremia; K86.89 Other specified diseases of pancreas; H40.9 Unspecified glaucoma; L93.2 Other local lupus erythematosus; H91.93 Unspecified hearing loss, bilateral; H35.30 Unspecified macular degeneration; I25.2 Old myocardial infarction; R53.81 Other malaise; E55.9 Vitamin D deficiency, unspecified; M85.80 Other specified disorders of bone density and structure, unspecified site; Z92.241 Personal history of systemic steroid therapy; Z90.49 Acquired absence of other specified parts of digestive tract; Z95.5 Presence of coronary angioplasty implant and graft; Z78.0 Asymptomatic menopausal state; Z79.899 Other long term (current) drug therapy; Z79.82 Long term (current) use of aspirin
CPT/HCPCS: 58558; 86850; 86900; 86901; 88305; J7120; J2405

== ENCOUNTER → 2023-03-23 | Outpatient (CLI) | payer MEDICARE, SELFPAY ==
[2023-03-23 13:42] LABS: Bacteria 0 SEEN /hpf (None Seen); Mucous, Urine 0 SEEN /hpf (<or=2+); Red Blood Cells-Urine 0 SEEN /hpf (0-5)
[2023-03-23 14:39] LABS: Absolute Lymphocyte Count 1.67 X10^3/uL (0.83-4.51); Absolute Neutrophil Count 6.6 X10^3/uL (2.0-7.7); Basophil# 0.06 X10^3/uL; Basophil% 0.6 % (0-1); Eosinophil# 0.21 X10^3/uL; Eosinophils% 2.1 % (0-5); Hematocrit 39.6 % (37-47); Hemoglobin 12.6 g/dL (12.0-15.0); Lymphocyte # 1.67 X10^3/ul (0.83-4.51); Mean Corp Hgb Conc 31.8 g/dL (32-36); Mean Corpuscular Hgb 31.2 pg (27.0-32.0); Monocyte# 1.02 X10^3/uL; Monocyte% 10.4 % (0-10); NRBC Flagged by Analyzer 0 % (0-5); Neutrophil # 6.57 X10^3/uL (2.7-7.7); Neutrophil % 67.1 % (47-70); Platelet Count 149 K/mm3 (150-450); RBC Distribution Width CV 16.3 % (11.6-14.6); RBC Distribution Width SD 59.3 fl (35.1-43.9); Red Blood Count 4.04 M/mm3 (4.2-5.4); White Blood Count 9.8 K/mm3 (4.4-11.0)
[2023-03-23 14:43] LABS: Color, Urine Yellow (Yellow); Glucose, Dipstick Normal (Normal); Immature Platelet Fraction 3.7 % (1.0-7.9); Ketone-Dipstick Negative (Negative); Leukocyte Esterase-Dipstick 500 /ul (Negative); Nitrite-Dipstick Negative (Negative); Occult Blood-Urine 250 /ul (Negative); Platelet Count 148 K/mm3 (150-450); Protein-Dipstick 15 mg/dl (Negative); RET-HE 34.3 pg (30-35); Reticulocyte Count 3.09 % (0.5-1.5); Urine Bilirubin Dipstick Negative (Negative); Urine Clarity Clear (Clear); Urine Urobilinogen Normal (Normal)
[2023-03-23 14:49] LABS: Erythrocyte Sedimentation Rate 5 mm/hr (0-30)
[2023-03-23 14:53] LABS: Squamous Epithelial Cells - UA 0-5 SEEN /hpf (5-10); White Blood Cells 0-5 SEEN /hpf (0-5)
[2023-03-23 15:10] LABS: Ferritin 66 ng/mL (8-252); Iron 81 ug/dL (50-170); Iron Binding Capacity,Total 299 ug/dL (250-450); LDH 207 U/L (84-246)
[2023-03-23 15:13] LABS: CRP < 2.90 mg/L (0.0-3.0)
[2023-03-23 15:38] LABS: AST(SGOT) 19 U/L (15-37); Alanine Aminotransfer ALT/SGPT 34 U/L (13-56); Albumin, Serum 3.4 g/dL (3.2-5.0); Alkaline Phosphatase 73 U/L (45-117); Bilirubin, Direct 0.21 mg/dL (0.00-0.30); Cholesterol 166 mg/dL (200); Globulin 3.9 g/dL (2.2-4.2); High Density Lipoprotein 49 mg/dL; Protein, Total 7.3 g/dL (6.4-8.2); Triglycerides 190 mg/dL; Very Low Density Lipoprotein 38 mg/dL (5-40)
[2023-03-25 08:08] LABS: Hepatitis A AB, Total Negative (Negative)
[2023-03-29 00:06] LABS: Albumin 3.4 g/dL (2.9-4.4); Alpha-1-Globulins 0.2 g/dL (0.0-0.4); Alpha-2-Globulins 0.8 g/dL (0.4-1.0); Cytoplasmic Ab (C-ANCA) 1:20 titer (Neg:<1:20); Endomysial Antibody IgA Negative (Negative); Gamma Globulin 1.5 g/dL (0.4-1.8); Haptoglobin 146 mg/dL (41-333); Immunoglobulin A 17 mg/dL (64-422); Immunoglobulin E < 2 IU/mL (6-495); Immunoglobulin G 1714 mg/dL (586-1602); Immunoglobulin M 14 mg/dL (26-217); PROEL- TOTAL PROTEIN 6.7 g/dL (6.0-8.5); Perinuclear Ab (P-ANCA) <1:20 titer (Neg:<1:20); t-Transglutaminase IgA <2 U/mL (0-3)
[2023-03-29 13:08] LABS: Anti-Centromere B Ab <0.2 AI (0.0-0.9); Anti-Chromatin <0.2 AI (0.0-0.9); Anti-Jo <0.2 AI (0.0-0.9); Anti-Scleroderma-70 AB <0.2 AI (0.0-0.9); Anti-dsDNA Ab <1 IU/mL (0-9); Beef <0.10 kU/L (Class 0); Chocolate <0.10 kU/L (Class 0); Clam <0.10 kU/L (Class 0); Codfish <0.10 kU/L (Class 0); Corn <0.10 kU/L (Class 0); Egg, White <0.10 kU/L (Class 0); Egg, Whole <0.10 kU/L (Class 0); Milk (Cow) <0.10 kU/L (Class 0); Peanut <0.10 kU/L (Class 0); Pork <0.10 kU/L (Class 0); RNP Ab <0.2 AI (0.0-0.9); SCALLOP <0.10 kU/L (Class 0); SESAME SEED <0.10 kU/L (Class 0); SJOGREN'S Anti-SS-A test > 8.0 AI (0.0-0.9); SJOGREN'S Anti-SS-B test < 0.2 AI (0.0-0.9); Shrimp <0.10 kU/L (Class 0); Smith Ab <0.2 AI (0.0-0.9); Soybean <0.10 kU/L (Class 0); Walnut, (Food) <0.10 kU/L (Class 0); Wheat <0.10 kU/L (Class 0)
== END | disposition home or self-care (01) ==
LOC: LAB 13:38
PROVIDERS: Internal Medicine Cardiovascular Disease; PCP Family Medicine; Referring Provider Internal Medicine Gastroenterology; Visit Provider Internal Medicine Gastroenterology
DX: I10 Essential (primary) hypertension (principal); K55.1 Chronic vascular disorders of intestine; E78.00 Pure hypercholesterolemia, unspecified; K62.5 Hemorrhage of anus and rectum
CPT/HCPCS: 36415; 80061; 80076; 81001; 82728; 82784; 82785; 83010; 83516; 83540; 83550; 83615; 84165; 85025; 85045; 85652; 86003; 86005; 86140; 86225; 86235; 86255; 86256; 86334; 86708; 86709

== ENCOUNTER → 2023-04-03 | Outpatient (CLI) | payer MEDICARE, SELFPAY ==
--- NOTE | 2023-04-03 17:22 | CT_ITS ---
INDICATION: pancreatic protocol EXAMINATION: CT ABDOMEN WITH AND WITHOUT CONTRAST TECHNIQUE: Helically acquired images were obtained of the abdomen both before and after IV contrast with sagittal and coronal reconstructed images. Individualized dose optimization techniques were used for this CT. IV contrast dosage and agent: 100 mL of Isovue 300. Oral contrast: Contrast seen in the stomach, duodenum and small bowel. COMPARISON: 09/12/2022 CT. FINDINGS: VESSELS: No abdominal aortic aneurysm or dissection. LIVER: No evidence of a mass. No intrahepatic or extrahepatic biliary duct dilation. GALLBLADDER: No calcified stones. No evidence of cholecystitis. PANCREAS: Partial fatty replacement of the pancreas. Scattered calcifications are seen within the body and tail the pancreas consistent with sequelae of chronic pancreatitis. Multiple adjacent subcentimeter cystic lesions in the tail the pancreas seen on the delayed postcontrast images. No enhancing mass is identified. No duct dilation. No evidence of acute pancreatitis. SPLEEN: Normal. ADRENAL GLANDS: Normal. KIDNEYS: No renal stone. No hydronephrosis. BOWEL: Left lower quadrant colostomy. Diverticulosis with no evidence of diverticulitis. PERITONEUM: No intraabdominal free fluid or free air within the visualized abdomen LYMPH NODES: No pathologically enlarged mesenteric or retroperitoneal lymph nodes. ABDOMINAL WALL: No abdominal or pelvic wall hernia. BONES: No acute abnormality. LOWER CHEST: Centrilobular emphysematous changes. CT/Abdomen W/WO IV Contrast IMPRESSION: 1. Scattered calcifications within the body and tail the pancreas consistent with sequelae of chronic pancreatitis. 2. Multiple adjacent subcentimeter cystic lesions in the tail the pancreas. Per ACR White Paper recommendations, no follow-up is recommended. No enhancing pancreatic mass. 3. No evidence of acute pancreatitis. Electronically Signed: Ousmane Roy DO at 4:53 EDT ,
[2023-04-03 17:41] LABS: CREATININE FINGERSTICK 1.1 mg/dL (0.55-1.02)
== END | disposition home or self-care (01) ==
LOC: CT 16:58
PROVIDERS: PCP Family Medicine; Referring Provider Internal Medicine Gastroenterology; Visit Provider Internal Medicine Gastroenterology
DX: K55.9 Vascular disorder of intestine, unspecified (principal); Z87.19 Personal history of other diseases of the digestive system
CPT/HCPCS: 74170; Q9967; A4216

== ENCOUNTER → 2023-04-13 | Outpatient (CLI) | payer MEDICARE, SELFPAY ==
--- NOTE | 2023-04-13 10:48 | MRI_ITS ---
INDICATION: hx of pancreatitis EXAMINATION: MRI - MR MRCP and Abdomen W/O Contrast TECHNIQUE: Multiplanar and multisequence MR images of the abdomen were obtained with MRCP sequence. Three-dimensional post-processing reconstructions were performed. IV Contrast Dosage and Agent: None. COMPARISON: FINDINGS: LIVER: No mass. Normal morphology. GALLBLADDER AND BILIARY TREE: Status post cholecystectomy. The CBD measures 4 mm. No intra- or extrahepatic biliary dilation. No choledochal filling defect. PANCREAS: Possible mild edema at the tail of the pancreas. No pancreatic duct dilation. SPLEEN: Non-enlarged. ADRENAL GLANDS: No nodules. KIDNEYS: Normal renal size and position. No hydronephrosis. No mass. LYMPH NODES: No enlarged periportal or retroperitoneal lymph nodes. PERITONEUM: No ascites or fluid collection. VESSELS: Aorta is non-dilated. LOWER CHEST: No pleural effusion. Small hiatal hernia. MRI/MRCP Abdomen without Contrast IMPRESSION: Possible mild edema in the tail of the pancreas. No significant biliary dilation or choledocolithiasis. Electronically Signed: Maycol Celaya DO at 23:06 EDT ,
== END | disposition home or self-care (01) ==
LOC: MRI 10:10
PROVIDERS: PCP Family Medicine; Referring Provider Internal Medicine Gastroenterology; Visit Provider Internal Medicine Gastroenterology
DX: K55.9 Vascular disorder of intestine, unspecified (principal); Z87.19 Personal history of other diseases of the digestive system
CPT/HCPCS: 74181

== ENCOUNTER → 2023-04-20 | Outpatient (CLI) | payer MEDICARE, SELFPAY ==
--- NOTE | 2023-04-20 11:41 | NM_ITS ---
CLINICAL: 83-year-old female with history of postprandial abdominal pain and bloating. SEMI-SOLID PHASE 99m Tc SULFUR COLLOID GASTRIC EMPTYING STUDY COMPARISON: None available FINDINGS: The patient was administered 1.1 mCi of 99m Tc sulfur colloid mixed with oatmeal and consumed per os. Image acquisitions in the anterior-posterior projections were obtained for 60 minutes. There is prompt visualization of the stomach. There is no gastroesophageal reflux identified. First order kinetics are maintained throughout the duration of the acquisitions. The T ? linear fit was extrapolated to be 65.78 minutes, (Normal: 12-56 minutes). NM/Gastric Emptying Study IMPRESSION: 1. ABNORMAL 99m Tc sulfur colloid semi-solid phase (oatmeal) gastric emptying imaging examination. A. There is delayed semi-solid phase gastric emptying compared to normal controls with maintained first order kinetics throughout all components of the examination. (Braden et al, J Nucl Med Tech 38: 186, 2010). Electronically Signed: Alexis Espino DO at 16:22 EDT ,
== END | disposition home or self-care (01) ==
PROVIDERS: PCP Family Medicine; Referring Provider Internal Medicine Gastroenterology; Visit Provider Internal Medicine Gastroenterology
DX: R14.0 Abdominal distension (gaseous) (principal)
CPT/HCPCS: 78264; A9541

== ENCOUNTER 2023-04-26 07:52 | Outpatient (CLI) | payer MEDICARE, SELFPAY ==
[2023-04-26 08:04] VITALS: BP 179/60; PULSE 79; RESP 16; TEMP 36.2; O2SAT 100
[2023-04-26] MEDS: 0.9% NaCl Peripheral Flush Adult/Peds IV ×3 (08:49→09:58)
[2023-04-26] MEDS: Cosyntropin 0.25 MG Vial IV (08:58)
[2023-04-26 09:08] LABS: Absolute Lymphocyte Count 2.15 X10^3/uL (0.83-4.51); Absolute Neutrophil Count 4.5 X10^3/uL (2.0-7.7); Basophil# 0.06 X10^3/uL; Basophil% 0.8 % (0-1); Eosinophils% 1.3 % (0-5); Hematocrit 41.2 % (37-47); Hemoglobin 13.4 g/dL (12.0-15.0); Lymphocyte # 2.15 X10^3/ul (0.83-4.51); Lymphocyte % 27.6 % (19-41); Mean Corp Hgb Conc 32.5 g/dL (32-36); Mean Corpuscular Hgb 31.6 pg (27.0-32.0); Mean Corpuscular Volume 97.2 fL (81-99); Mean Platelet Vol. 9.8 fl (6.2-12.0); Monocyte# 0.92 X10^3/uL; Monocyte% 11.8 % (0-10); NRBC Flagged by Analyzer 0 % (0-5); Neutrophil # 4.48 X10^3/uL (2.7-7.7); Neutrophil % 57.6 % (47-70); Platelet Count 153 K/mm3 (150-450); RBC Distribution Width CV 16.4 % (11.6-14.6); Red Blood Count 4.24 M/mm3 (4.2-5.4); White Blood Count 7.8 K/mm3 (4.4-11.0)
[2023-04-26 09:32] LABS: PTHIN 53.4 pg/mL (18.4-80.1)
[2023-04-26 09:38] LABS: ALB/GLOB Ratio 0.9 RATIO (0.9-2.4); AST(SGOT) 20 U/L (15-37); Alanine Aminotransfer ALT/SGPT 31 U/L (13-56); Albumin, Serum 3.6 g/dL (3.2-5.0); Alkaline Phosphatase 67 U/L (45-117); Anion Gap 5 (5-15); BUN 20 mg/dL (7-18); BUN/Creat Ratio 18.7 RATIO (10-20); Calcium,Total 9.4 mg/dL (8.5-10.1); Chloride 104 mmol/L (98-107); Creatinine, Serum 1.07 mg/dL (0.55-1.02); EST Glomerular Filtration Rate 52 mL/min (>60); Est Glom Filt Rate - Afr Amer 63 mL/min (>60); Globulin 4.2 g/dL (2.2-4.2); Glucose 92 mg/dL (74-106); Potassium 3.8 mmol/L (3.5-5.1); Protein, Total 7.8 g/dL (6.4-8.2); Sodium Level 137 mmol/L (136-145); Triglycerides 189 mg/dL
[2023-04-26 09:54] LABS: Hepatitis B Surface Antigen Non-Reactive (Nonreactive)
[2023-04-26 10:13] VITALS: BP 154/47; PULSE 79; RESP 16; TEMP 36.2; O2SAT 99
[2023-04-27 14:08] LABS: Anti-Centromere B Ab <0.2 AI (0.0-0.9); Anti-Chromatin <0.2 AI (0.0-0.9); Anti-Jo <0.2 AI (0.0-0.9); Anti-Scleroderma-70 AB <0.2 AI (0.0-0.9); Anti-dsDNA Ab <1 IU/mL (0-9); RNP Ab <0.2 AI (0.0-0.9); SJOGREN'S Anti-SS-A test > 8.0 AI (0.0-0.9); SJOGREN'S Anti-SS-B test < 0.2 AI (0.0-0.9); Smith Ab <0.2 AI (0.0-0.9)
[2023-04-30 00:06] LABS: Albumin 3.7 g/dL (2.9-4.4); Alpha-1-Globulins 0.3 g/dL (0.0-0.4); Alpha-2-Globulins 0.9 g/dL (0.4-1.0); Cytoplasmic Ab (C-ANCA) <1:20 titer (Neg:<1:20); Endomysial Antibody IgA Positive (Negative); Gamma Globulin 1.7 g/dL (0.4-1.8); HEPATITIS B SURFACE AG Negative (Negative); Hep C Antibodies Non Reactive (Non Reactive); Hepatitis A IgM Antibody Negative (Negative); Hepatitis B Core AB IgM Negative (Negative); IgG, Quant 1849 mg/dL (586-1602); Immunoglobulin A 17 mg/dL (64-422); Immunoglobulin E < 2 IU/mL (6-495); Immunoglobulin G, Subclass 1 1373 mg/dL (248-810); Immunoglobulin G, Subclass 2 133 mg/dL (130-555); Immunoglobulin G, Subclass 3 61 mg/dL (15-102); Immunoglobulin G, Subclass 4 9 mg/dL (2-96); Immunoglobulin M 16 mg/dL (26-217); PROEL- TOTAL PROTEIN 7.4 g/dL (6.0-8.5); Perinuclear Ab (P-ANCA) <1:20 titer (Neg:<1:20); t-Transglutaminase IgA <2 U/mL (0-3)
== END 2023-04-26 07:53 | disposition home or self-care (01) ==
LOC: MEDOUTP 07:53
PROVIDERS: Internal Medicine Gastroenterology; PCP Family Medicine; Referring Provider Internal Medicine Endocrinology, Diabetes & Metabolism; Visit Provider Internal Medicine Endocrinology, Diabetes & Metabolism
DX: E27.49 Other adrenocortical insufficiency (principal); Z87.19 Personal history of other diseases of the digestive system
CPT/HCPCS: 96374; 80053; 80074; 82533; 82784; 82785; 82787; 83516; 83970; 84165; 84478; 85025; 86225; 86235; 86255; 86256; 86334; 87340; A4216; J0834

== ENCOUNTER 2023-04-28 22:03 | Emergency (ER) | payer MEDICARE, SELFPAY ==
[2023-04-28 22:05] VITALS: BP 124/72; PULSE 78; RESP 16; TEMP 36; O2SAT 100; BMI 23.5
[2023-04-28 23:03] LABS: Absolute Lymphocyte Count 1.95 X10^3/uL (0.83-4.51); Absolute Neutrophil Count 4.6 X10^3/uL (2.0-7.7); Basophil# 0.02 X10^3/uL; Basophil% 0.3 % (0-1); Eosinophil# 0.09 X10^3/uL; Eosinophils% 1.2 % (0-5); Lymphocyte # 1.95 X10^3/ul (0.83-4.51); Lymphocyte % 25.5 % (19-41); Mean Corp Hgb Conc 32.5 g/dL (32-36); Mean Corpuscular Hgb 31.3 pg (27.0-32.0); Mean Corpuscular Volume 96.4 fL (81-99); Mean Platelet Vol. 9.5 fl (6.2-12.0); Monocyte# 0.95 X10^3/uL; Monocyte% 12.4 % (0-10); NRBC Flagged by Analyzer 0 % (0-5); Neutrophil # 4.58 X10^3/uL (2.7-7.7); Neutrophil % 59.9 % (47-70); Platelet Count 142 K/mm3 (150-450); RBC Distribution Width CV 16.4 % (11.6-14.6); RBC Distribution Width SD 58.1 fl (35.1-43.9); Red Blood Count 4.15 M/mm3 (4.2-5.4); White Blood Count 7.6 K/mm3 (4.4-11.0)
[2023-04-28] MEDS: 0.9% Normal Saline (500mL Bag) 500 ML 999 ML IV (23:06)
[2023-04-28 23:12] LABS: Partial Thromboplast Time 25.7 Seconds (24.1-36.2); Prothrombin Time (Protime)PT. 13.5 SECONDS (11.7-14.9)
[2023-04-28 23:26] LABS: Anion Gap 8 (5-15); BUN 12 mg/dL (7-18); BUN/Creat Ratio 13.5 RATIO (10-20); Calcium,Total 8.5 mg/dL (8.5-10.1); Chloride 99 mmol/L (98-107); Creatinine, Serum 0.89 mg/dL (0.55-1.02); EST Glomerular Filtration Rate 64 mL/min (>60); Est Glom Filt Rate - Afr Amer 78 mL/min (>60); Estimated Creatinine Clearance 38.62 ml/min; Glucose 104 mg/dL (74-106); Magnesium 2.1 mg/dL (1.6-2.6); Potassium 3.5 mmol/L (3.5-5.1); Sodium Level 135 mmol/L (136-145); Thyroid Stim Hormone (TSH) 6.61 uIU/mL (0.358-3.74)
--- NOTE | 2023-04-28 23:30 | CT_ITS ---
STUDY: CT BRAIN WITHOUT CONTRAST REASON FOR EXAM: Female, 83 years old. dizziness RADIATION DOSAGE (If Supplied By Facility): CTDIvol = ( 44.99 ) mGy, DLP = ( 779.24 ) mGycm TECHNIQUE: Transaxial CT imaging of the brain was performed without administration of intravenous contrast material. Individualized dose optimization techniques were used for this CT. COMPARISON: 04/29/2021 FINDINGS: Normal soft tissue structures. Normal calvarium. Normal size ventricles and extra-axial spaces for the patient''s age. Normal white matter tracts of the cerebral hemispheres. Normal basal ganglia and thalami. Normal brainstem. Normal cerebellum. There is no intracranial hemorrhage. There are no findings of an acute ischemic infarction. Normal visualized paranasal sinuses. CT/Brain/Head without Contrast IMPRESSION: Normal unenhanced CT scan of the brain. Electronically Signed: Alexis Caban MD at 23:49 EDT ,
[2023-04-29] VITALS: BP 158/64; BP 169/78; BP 172/73; PULSE 78; PULSE 79; PULSE 80
[2023-04-29 00:15] LABS: Mucous, Urine 0 SEEN /hpf (<or=2+); Red Blood Cells-Urine 0 SEEN /hpf (0-5)
[2023-04-29 00:33] LABS: Color, Urine Yellow (Yellow); Glucose, Dipstick Normal (Normal); Ketone-Dipstick Negative (Negative); Leukocyte Esterase-Dipstick 500 /ul (Negative); Nitrite-Dipstick Negative (Negative); Occult Blood-Urine Negative /ul (Negative); Protein-Dipstick Negative (Negative); Urine Bilirubin Dipstick Negative (Negative); Urine Clarity Clear (Clear); Urine Urobilinogen Normal (Normal)
[2023-04-29 00:36] LABS: Bacteria 1+ /hpf (None Seen); Squamous Epithelial Cells - UA 5-10 SEEN /hpf (5-10); White Blood Cells 25-50 SEEN /hpf (0-5)
[2023-04-29 01:05] VITALS: PULSE 76; RESP 15; O2SAT 98
--- NOTE | 2023-04-29 01:09 | EX.ED.DYSGE1 ---
HPI History of Present Illness Chief Complaint: Dizziness Informant: patient and family Narrative Narrative: Patient is an 83-year-old female with history of adrenal insufficiency and hypothyroidism currently on hydrocortisone and Synthroid. She underwent testing for adrenal insufficiency and had to hold her medication for 1 day. Since doing this she states that she has felt dizzy which she cannot describe as a lightheaded or motion sensation but just off and has had bouts of nausea and vomiting with changes in position. She has been trying medications as prescribed by her doctor but with persistent symptoms she was sent in for further evaluation [facility] Medical History (Updated 04/29/23 @ 01:[address] Destin Echeverria, DO) Abdominal pain Adrenal insufficiency Aortic insufficiency Atherosclerotic heart disease of [place] coronary artery without angina pectoris Atrial fibrillation Autoimmune hepatitis Bladder disease Cardiology follow-up encounter Chronic hyponatremia COLONOSCOPY Colostomy in place Dietary restriction Difficulty chewing Difficulty swallowing Diverticulitis Easy bruising Elevated troponin Fatty liver Forgetfulness Gastric reflux Glaucoma Hearing loss, left Hearing loss, right Heart attack (~03/2022) Heart disease Hepatitis History of CHF (congestive heart failure) History of Clostridium difficile infection History of echocardiogram History of edema History of hiatal hernia History of irregular heartbeat History of left heart catheterization (LHC) (~03/27/22) History of non-ST elevation myocardial infarction (NSTEMI) History of steroid therapy Hyperlipidemia Hypertension Hyperthyroidism Hypothyroidism Idiopathic thrombocytopenia Loss of hearing Low iron Lupus Macular degeneration Migraines Monoclonal gammopathies NASAL POLYP REMOVED Non-smoker Nonrheumatic aortic (valve) stenosis with insufficiency Nonrheumatic mitral valve stenosis with insufficiency Osteopenia Presence of stent in coronary artery (~04/06/22) Pulmonary arterial hypertension Rheumatic fever Secondary adrenal insufficiency Severe mitral regurgitation 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 Tachycardia Walker as ambulation aid Wears glasses Home Medications brimonidine 0.15 % eye drops 1 drp EACH EYE BID eye drops 06/23/17 [History Last Taken 01/11/22] budesonide 3 mg capsule,delayed,extended release 3 mg PO DAILY inflammation 06/23/17 [History Last Taken 01/10/22] hydroxychloroquine 200 mg tablet 200 mg PO DAILYCM lupus 06/23/17 [History Last Taken 01/10/22] levothyroxine 75 mcg tablet 75 mcg PO DAILY thyroid 06/23/17 [History Last Taken 03/13/23] cholecalciferol (vitamin D3) 50 mcg (2,000 unit) capsule 2,000 unit PO DAILY SUPPLEMENT 07/30/19 [History Last Taken 01/10/22] aflibercept 2 mg/0.05 mL intravitreal syringe (Eylea) 2 mg intravitreal .[id number] EYE HEALTH 03/28/21 [History Last Taken 01/09/22] [id number] 12,000-38,000-60,000 unit capsule,delayed rel (Creon) 1 cap PO DAILY enzymes 04/29/21 [History Last Taken 01/10/22] bimatoprost 0.01 % eye drops (Lumigan) 1 drp EACH EYE Q EYE HEALTH 01/11/22 [History Last Taken 01/11/22] atorvastatin 40 mg tablet 40 mg PO DAILY 05/04/22 [History Last Taken Unknown] clopidogrel 75 mg tablet (Plavix) 75 mg PO DAILY 05/04/22 [History Last Taken Unknown] ferrous sulfate 325 mg (65 mg iron) tablet 325 mg PO Q OTHER DAY 05/24/22 [History Last Taken Unknown] Lactobacillus acidophilus 10 billion cell capsule (Probiotic) 10,000 mmu cells PO DAILY [facility] 07/13/22 [History Last Taken Unknown] aspirin 81 mg tablet,delayed release (Adult Low Dose Aspirin) 81 mg PO DAILY 07/13/22 [History Last Taken Unknown] cyanocobalamin (vitamin B-12) 100 mcg tablet 100 mcg PO DAILY 07/13/22 [History Last Taken Unknown] pantoprazole 40 mg tablet,delayed release 40 mg PO DAILY 11/15/22 [History Last Taken 03/13/23] sucralfate 1 gram tablet (Carafate) 1 g PO QAC 11/15/22 [History Last Taken Unknown] isosorbide dinitrate 10 mg tablet 15 mg PO DAILY 11/22/22 [History Last Taken 03/13/23] carvedilol 12.5 mg tablet 6.25 mg PO BID 11/28/22 [History Last Taken 03/13/23] furosemide 40 mg tablet 40 mg PO DAILY fluid pill 11/28/22 [History Last Taken Unknown] potassium chloride 10 mEq tablet,extended release(part/cryst) 10 meq PO DAILY SUPPLEMENT' 11/28/22 [History Last Taken Unknown] hydrocortisone 10 mg tablet 10 mg PO DAILY #90 tabs 04/26/23 [Rx Last Taken Unknown] Allergy/AdvReac Type Severity Reaction Status Date / Time Penicillins [PCN] Allergy Hives Verified 04/28/23 22:04 Sulfa (Sulfonamide AdvReac Severe Rash Verified 04/28/23 22:04 Antibiotics) griseofulvin AdvReac Intermediate Other Verified 04/28/23 22:04 [From Priti-PEG (ultramicrosize)] azathioprine [From Imuran] AdvReac Vomiting Verified 04/28/23 22:04 colchicine AdvReac Other Verified 04/28/23 22:04 doxycycline AdvReac Rash Verified 04/28/23 22:04 famotidine [From Pepcid] AdvReac Other Verified 04/28/23 22:04 Family History Father Heart disease Pacemaker Mother Heart disease Brother Myocardial infarction Sister Myocardial infarction Heart disease Surgical History H/O cataract extraction H/O dilation and curettage h/o mass removed from hip H/O tubal ligation History of sinus surgery Hx of cholecystectomy Presence of coronary angioplasty implant and graft Status post colon resection (~12/2021) Social History household members: spouse number of children: 5 current occupational status: retired Smoking Status: Never smoker alcohol intake: never substance use type: does not use caffeine: No additional social history: Barbara Sanford-Daughter- Manages Medical care [facility] ED Constitutional Constitutional ED: Denies chills or fever(s) Eyes Eyes: Denies change in vision ENT ENT ED: Denies ear pain or sore throat Cardiovascular Cardiovascular: Denies chest pain, palpitations or racing heartbeat Respiratory/Chest Respiratory/Chest: Denies cough or dyspnea Gastrointestinal Gastrointestinal: Reports nausea and vomiting; Denies abdominal pain or diarrhea Genitourinary Genitourinary ED: Denies dysuria Musculoskeletal Musculoskeletal: Denies myalgias Integumentary Denies rash Neurologic Neurologic: Reports other Details: Positive dizziness ; Denies headache(s) Hematologic/Lymphatic Hematologic/Lymphatic: Reports easy bleeding and easy bruising EXAM Physical Exam Const Vital Signs: 04/28/23 22:05 04/29/23 00:00 04/29/23 01:05 Temperature 96.8 F L Temperature Source Temporal Pulse Rate 78 76 Pulse Rate [Lying] 78 Pulse Rate [Sitting (for 1 minute prior to obtaining)] 79 Pulse Rate [Standing (for 1 minute prior to obtaining)] 80 Respiratory Rate 16 15 Blood Pressure 124/72 H Blood Pressure [Lying] 158/64 H Blood Pressure [Sitting (for 1 minute prior to obtaining)] 169/78 H Blood Pressure [Standing (for 1 minute prior to obtaining)] 172/73 H Blood Pressure Mean 89 Blood Pressure Mean [Lying] 95 Blood Pressure Mean [Sitting (for 1 minute prior to obtaining)] 108 Blood Pressure Mean [Standing (for 1 minute prior to obtaining)] 106 Pulse Ox 100 98 Oxygen Delivery Method Room Air Positive well nourished and well developed General Appearance ED: well developed HEENT Reports dry mucous membranes HEENT Narrative: Mucous membranes are dry and tacky without airway edema or compromise or secondary changes to suggest infection in the posterior pharynx Mouth ED: Yes dry mucous membranes Mouth: dry mucous membranes Eyes PERRL and EOMs intact bilaterally General Eye ED: Yes pale conjunctiva; Negative for scleral icterus Neck supple Neck Narrative: No nuchal rigidity or meningeal signs present Resp normal respiratory effort and clear to auscultation bilaterally Cardio regular rate and regular rhythm Rate: other Other Details: Heart is regular rate and rhythm with an occasional ectopic beat noted GI normal to inspection, nondistended, normoactive bowel sounds, non-tender, non-distended and no masses GI Narrative: Patient has a colostomy in place and bowel sounds are normoactive without any type of distention or rigidity or pain with palpation. No pulsatile mass or increased tympany noted Auscultation: normoactive bowel sounds Palpation: soft Extremity normal to inspection Neuro oriented x3 and CN's II-XII intact bilaterally Neuro Narrative: Cranial nerves II through XII are grossly intact there is no focal neurologic deficit. No truncal ataxia noted. No nystagmus noted. Negative Hallpike Delta exam. Sensorium / Orientation: alert Psych mental status grossly normal Skin Skin Narrative: Skin turgor is increased and there is spontaneous areas of ecchymosis across bilateral arms and legs MDM MDM MDM Narrative Medical decision making narrative: Patient presented to the ER with stable vitals and a nonfocal neuro exam. Differential diagnosis is for dehydration versus acute blood loss anemia versus vertigo versus orthostatic near syncope versus electrolyte derangement versus acute kidney injury versus vertebrobasilar insufficiency versus potential brain bleed or mass. Basic blood work was obtained which revealed no clinically significant findings. Urine sample questioned infection versus contamination. Patient has no dysuria and does not want to be on antibiotics unless culture is positive and therefore they will be held at this time. She was given 500 mL of normal saline as physical exam shows dehydration and she is on a diuretic and after receiving this she did report feeling better. However as she does have a history of congestive heart failure I do not feel there is need for increased hydration especially as her orthostatic vital signs are negative. At this time head CT reveals no acute bleed or mass physical exam does not suggest posterior circulation stroke and laboratory studies are not showing acute blood loss anemia or severe electrolyte derangement. Therefore as overall work-up is negative and patient has reported feeling better after receiving IV fluids she will be discharged home and follow-up on an outpatient basis History & Record Review Discussion w/independent historian: Patient and Family Lab Data Attestation: I reviewed the patient's lab results. Labs: Laboratory Results - last 24 hr 04/28/23 04/29/23 22:55 00:05 WBC 7.6 RBC 4.15 L Hgb 13.0 Hct 40.0 MCV 96.4 MCH 31.3 MCHC 32.5 RDW Std Deviation 58.1 H RDW Coeff of [place] 16.4 H Plt Count 142 L MPV 9.5 Immature Gran % (Auto) 0.700 Neut % (Auto) 59.9 Lymph % (Auto) 25.5 [place] % (Auto) 12.4 H Eos % (Auto) 1.2 Baso % (Auto) 0.3 Absolute Neuts (auto) 4.6 Absolute Lymphs (auto) 1.95 Nucleated RBC % 0 PT 13.5 INR 1.0 APTT 25.7 Sodium 135 L Potassium 3.5 Chloride 99 Carbon Dioxide 28.0 Anion Gap 8 BUN 12 Creatinine 0.89 Estim Creat Clear Calc 38.62 Est GFR (MDRD) Af Amer 78 Est GFR (MDRD) Non-Af 64 BUN/Creatinine Ratio 13.5 Glucose 104 Calcium 8.5 Magnesium 2.1 TSH 6.61 H Urine Color Yellow Urine Clarity Clear Urine pH 7.0 Ur Specific [place] 1.010 Urine Protein Negative Urine Glucose (UA) Normal Urine Ketones Negative Urine Occult Blood Negative Urine Nitrite Negative Urine Bilirubin Negative Urine Urobilinogen Normal Ur Leukocyte Esterase 500 H Urine RBC 0 SEEN Urine WBC 25-50 SEEN Ur Squamous Epith Cells 5-10 SEEN Urine Bacteria 1+ Urine Mucus 0 SEEN Radiography Diagnostic Testing: Clinical Impression(s) from Imaging Studies Brain CT 04/28/23 23:30 IMPRESSION: Normal unenhanced CT scan of the brain. Electronically Signed: Alexis Caban MD at 23:49 EDT , Discharge Plan Triage Chief Complaint: Dizziness ED Provider: Destin Echeverria Dx/Rx/DC Orders Clinical Impression: Dizziness, Mild dehydration, Adrenal insufficiency Instructions: Dehydration, ED Dizziness, Uncertain Cause Prescriptions: No Action ferrous sulfate 325 mg (65 mg iron) tablet 325 mg PO Q OTHER DAY clopidogrel [Plavix] 75 mg tablet 75 mg PO DAILY atorvastatin 40 mg tablet 40 mg PO DAILY aspirin [Adult Low Dose Aspirin] 81 mg tablet,delayed release (DR/EC) 81 mg PO DAILY cyanocobalamin (vitamin B-12) 100 mcg tablet 100 mcg PO DAILY carvedilol 12.5 mg tablet 6.25 mg PO BID Rx Instructions: 6.25mg half tablet bid pantoprazole 40 mg tablet,delayed release (DR/EC) 40 mg PO DAILY sucralfate [Carafate] 1 gram tablet 1 g PO QAC isosorbide dinitrate 10 mg tablet 15 mg PO DAILY Rx Instructions: allow nitrate-free interval of 12-14 hrs per 24-hr period levothyroxine 75 MCG tablet 75 mcg PO DAILY Rx Instructions: name brand synthroid budesonide 3 MG capsule,delayed,extend.release 3 mg PO DAILY hydroxychloroquine 200 MG tablet 200 mg PO DAILYCM brimonidine 1 DROP bottle 1 drp EACH EYE BID cholecalciferol (vitamin D3) 2,000 UNIT capsule 2,000 unit PO DAILY Eylea 2 mg/0.05 mL Syringe 2 mg INTRAVITREAL .[id number] Rx Instructions: 02/27/22 Creon 12,000-38,000 -60,000 unit capsule,delayed release(DR/EC) 1 cap PO DAILY Lumigan 0.01 % Drops 1 drp EACH EYE QHS Probiotic 10 billion cell capsule 10,000 mmu cells PO DAILY furosemide 40 mg tablet 40 mg PO DAILY potassium chloride 10 mEq tablet,ER particles/crystals 10 meq PO DAILY hydrocortisone 10 mg tablet 10 mg PO DAILY Qty: 90 1RF Primary Care Provider: Ashvin Cardenas Referrals: Ashvin Cardenas MD [Primary Care Provider] - Activity Restrictions/Additional Instructions: Please continue all of your medications as directed by your family doctor. Your urine sample showed questionable UTI and therefore was sent for culture. Someone from the ER your family doctor should notify you if the culture grows out infection and therefore start you on antibiotics. If you develop worsening of symptoms or have any further concerns please return to the ER for repeat evaluation Disposition Disposition: Home, Self Care Discharge Date/Time: 04/29/23 01:41
== END 2023-04-29 01:41 | disposition home or self-care (01) ==
PROVIDERS: Emergency Provider Emergency Medicine; PCP Family Medicine; Visit Provider Emergency Medicine
DX: R42 Dizziness and giddiness (principal); I50.9 Heart failure, unspecified; I11.0 Hypertensive heart disease with heart failure; E27.40 Unspecified adrenocortical insufficiency; E86.0 Dehydration; R11.2 Nausea with vomiting, unspecified; I25.10 Atherosclerotic heart disease of native coronary artery without angina pectoris; E03.9 Hypothyroidism, unspecified; E78.5 Hyperlipidemia, unspecified; Z79.82 Long term (current) use of aspirin; Z79.02 Long term (current) use of antithrombotics/antiplatelets; Z79.890 Hormone replacement therapy; Z79.899 Other long term (current) drug therapy
CPT/HCPCS: 70450; 80048; 81001; 83735; 84443; 85025; 85610; 85730; 87077; 87086; 87088; 87186; 96360; 99283; J7040; A4216

== ENCOUNTER → 2023-05-02 | Outpatient (CLI) | payer MEDICARE, SELFPAY ==
--- NOTE | 2023-05-02 11:04 | RAD_ITS ---
INDICATION: cephalagia, dizziness EXAMINATION/TECHNIQUE: X-RAY - XR Spine Cervical 4 or 5 Views COMPARISON: No comparison. FINDINGS: 5 views of the cervical spine. BONES: Normal anatomic alignment without evidence of fracture or subluxation. No concerning bony lesion or abnormal sclerosis to suggest lesion. DISCS/JOINTS: Moderate to severe left C6-C7 neuroforaminal narrowing. SOFT TISSUES: Unremarkable. RAD/Cerv Spine 4 or 5 Views IMPRESSION: Neuroforaminal narrowing. No obvious acute abnormality of the cervical spine. If there is persistent clinical concern for spine fracture and this is a trauma patient, recommend dedicated cervical spine CT. Electronically Signed: Andrew Blackman MD at 1:21 EDT ,
== END | disposition home or self-care (01) ==
LOC: MTRAD 11:03
PROVIDERS: PCP Family Medicine; Referring Provider Family Medicine; Visit Provider Family Medicine
DX: R51.9 Headache, unspecified (principal)
CPT/HCPCS: 72050

== ENCOUNTER → 2023-05-23 | Outpatient (CLI) | payer MEDICARE, SELFPAY ==
--- NOTE | 2023-05-23 15:28 | MRI_ITS ---
EXAM: MR ANGIOGRAPHY NECK WITHOUT AND WITH INTRAVENOUS CONTRAST CLINICAL INDICATION: CEPHALAGIA TECHNIQUE: Routine carotid MR angiogram protocol was performed without and with intravenous contrast. 3D reconstructions were reviewed. NASCET criteria using the distal ICAs for comparison were used for evaluation of stenoses. CONTRAST: 10ML CLARISCAN COMPARISON: MRA neck, 06/30/2014 and MRA head dated 05/23/2023. FINDINGS: LIMITATIONS: Examination is limited due to motion related artifacts. RIGHT COMMON CAROTID ARTERY: No significant abnormality. No occlusion or significant stenosis. No dissection. RIGHT INTERNAL CAROTID ARTERY: No significant abnormality. Extracranial segment is patent with no occlusion or significant stenosis. No dissection. RIGHT EXTERNAL CAROTID ARTERY: No significant abnormality. No occlusion. RIGHT VERTEBRAL ARTERY: No significant abnormality. No occlusion or significant stenosis. No dissection. LEFT COMMON CAROTID ARTERY: No significant abnormality. No occlusion or significant stenosis. No dissection. LEFT INTERNAL CAROTID ARTERY: No significant abnormality. Extracranial segment is patent with no occlusion or significant stenosis. No dissection. LEFT EXTERNAL CAROTID ARTERY: No significant abnormality. No occlusion. LEFT VERTEBRAL ARTERY: No significant abnormality. No occlusion or significant stenosis. No dissection. OTHER VASCULATURE: There is a two-vessel branch pattern of the aorta which is normal in caliber. CAROTID STENOSIS REFERENCE USING NASCET CRITERIA: % ICA stenosis = (1 - narrowest ICA diameter/diameter of distal cervical ICA) x 100. Mild - <50% stenosis. Moderate - 50-69% stenosis. Severe - 70-94% stenosis. Near occlusion - 95-99% stenosis. Occluded - 100% stenosis. MRI/MRA Neck WITH and W/O Contrast IMPRESSION: No acute findings in the arteries of the neck. Electronically Signed: Nicholas Ruiz DO at 21:40 EST ,
--- NOTE | 2023-05-23 15:29 | MRI_ITS ---
EXAM: MR ANGIOGRAPHY HEAD WITHOUT INTRAVENOUS CONTRAST CLINICAL INDICATION: CEPHALAGIA TECHNIQUE: Routine [place]/brain 3D time of flight MR angiogram protocol was performed without intravenous contrast. 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 No significant stenosis at the intracranial/visualized segments. RIGHT ANTERIOR CEREBRAL ARTERY: No significant abnormality. No occlusion or significant stenosis. Anterior communicating artery is present. No aneurysm. RIGHT MIDDLE CEREBRAL ARTERY: No significant abnormality. No occlusion or significant stenosis. No aneurysm. RIGHT POSTERIOR CEREBRAL ARTERY: No significant abnormality. No occlusion or significant stenosis. No aneurysm. RIGHT VERTEBRAL ARTERY: Normal as visualized. No significant stenosis at the intradural/visualized segments. No aneurysm. LEFT INTERNAL CAROTID ARTERY: There is either a 1 to 2 mm aneurysm or infundibulum from the distal left internal carotid artery. No significant stenosis at the intracranial/visualized segments. LEFT ANTERIOR CEREBRAL ARTERY: No significant abnormality. No occlusion or significant stenosis. Anterior communicating artery is present. No aneurysm. LEFT MIDDLE CEREBRAL ARTERY: No significant abnormality. No occlusion or significant stenosis. No aneurysm. LEFT POSTERIOR CEREBRAL ARTERY: No significant abnormality. No occlusion or significant stenosis. No aneurysm. LEFT VERTEBRAL ARTERY: Normal as visualized. No significant stenosis at the intradural/visualized segments. No aneurysm. BASILAR ARTERY: No significant abnormality. No significant stenosis. No aneurysm. OTHER VASCULATURE: No vascular malformation. MRI/MRA Head ONLY without Contrast IMPRESSION: 1. 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 2. There is either a 1 to 2 mm aneurysm or infundibulum from the distal left internal carotid artery. 3. No large vessel occlusion or critical intracranial arterial stenosis. Electronically Signed: Nicholas Ruiz DO at 21:32 EST ,
== END | disposition home or self-care (01) ==
LOC: MRI 15:15
PROVIDERS: PCP Family Medicine; Referring Provider Family Medicine; Visit Provider Family Medicine
DX: R51.9 Headache, unspecified (principal); R42 Dizziness and giddiness; M54.2 Cervicalgia
CPT/HCPCS: 70544; 70549; A9575; A4216

== ENCOUNTER 2023-06-12 19:07 | Emergency (ER) | payer MEDICARE, SELFPAY ==
[2023-06-12 19:08] VITALS: BP 143/64; PULSE 88; RESP 16; TEMP 36.4; O2SAT 100; BMI 23.8
--- NOTE | 2023-06-12 19:38 | EX.ED.DYSGE1 ---
HPI <JUAN JOSÉ Breen - Last Filed: 06/12/23 20:25> History of Present Illness Chief Complaint: Wound Narrative Narrative: 83-year-old female regularly feeds a stray cat on her patio and today tried to pet it and it scratched her right hand causing a skin tear. She could not get the area to stop bleeding and presents for evaluation. She takes Plavix. She denies weakness or paresthesias. PFSH <JUAN JOSÉ Breen - Last Filed: 06/12/23 20:25> [facility] Medical History Abdominal pain Adrenal insufficiency Aortic insufficiency Atherosclerotic heart disease of [place] coronary artery without angina pectoris Atrial fibrillation Autoimmune hepatitis Bladder disease Cardiology follow-up encounter Chronic hyponatremia COLONOSCOPY Colostomy in place Dietary restriction Difficulty chewing Difficulty swallowing Diverticulitis Easy bruising Elevated troponin Fatty liver Forgetfulness Gastric reflux Glaucoma Hearing loss, left Hearing loss, right Heart attack (~03/2022) Heart disease Hepatitis History of CHF (congestive heart failure) History of Clostridium difficile infection History of echocardiogram History of edema History of hiatal hernia History of irregular heartbeat History of left heart catheterization (LHC) (~03/27/22) History of non-ST elevation myocardial infarction (NSTEMI) History of steroid therapy Hyperlipidemia Hypertension Hyperthyroidism Hypothyroidism Idiopathic thrombocytopenia Loss of hearing Low iron Lupus Macular degeneration Migraines Monoclonal gammopathies NASAL POLYP REMOVED Non-smoker Nonrheumatic aortic (valve) stenosis with insufficiency Nonrheumatic mitral valve stenosis with insufficiency Osteopenia Presence of stent in coronary artery (~04/06/22) Pulmonary arterial hypertension Rheumatic fever Secondary adrenal insufficiency Severe mitral regurgitation 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 Tachycardia Walker as ambulation aid Wears glasses Home Medications brimonidine 0.15 % eye drops 1 drp EACH EYE BID eye drops 06/23/17 [History Last Taken 01/11/22] budesonide 3 mg capsule,delayed,extended release 3 mg PO DAILY inflammation 06/23/17 [History Last Taken 01/10/22] hydroxychloroquine 200 mg tablet 200 mg PO DAILYCM lupus 06/23/17 [History Last Taken 01/10/22] levothyroxine 75 mcg tablet 75 mcg PO DAILY thyroid 06/23/17 [History Last Taken 03/13/23] cholecalciferol (vitamin D3) 50 mcg (2,000 unit) capsule 2,000 unit PO DAILY SUPPLEMENT 07/30/19 [History Last Taken 01/10/22] aflibercept 2 mg/0.05 mL intravitreal syringe (Eylea) 2 mg intravitreal .[id number] EYE HEALTH 03/28/21 [History Last Taken 01/09/22] [id number] 12,000-38,000-60,000 unit capsule,delayed rel (Creon) 1 cap PO 4X/DAY enzymes 04/29/21 [History Last Taken 01/10/22] bimatoprost 0.01 % eye drops (Lumigan) 1 drp EACH EYE Q EYE HEALTH 01/11/22 [History Last Taken 01/11/22] atorvastatin 40 mg tablet 40 mg PO DAILY 05/04/22 [History Last Taken Unknown] clopidogrel 75 mg tablet (Plavix) 75 mg PO DAILY 05/04/22 [History Last Taken Unknown] ferrous sulfate 325 mg (65 mg iron) tablet 325 mg PO Q OTHER DAY 05/24/22 [History Last Taken Unknown] Lactobacillus acidophilus 10 billion cell capsule (Probiotic) 10,000 mmu cells PO DAILY IMMUNE HEALTH 07/13/22 [History Last Taken Unknown] aspirin 81 mg tablet,delayed release (Adult Low Dose Aspirin) 81 mg PO DAILY 07/13/22 [History Last Taken Unknown] cyanocobalamin (vitamin B-12) 100 mcg tablet 100 mcg PO DAILY 07/13/22 [History Last Taken Unknown] pantoprazole 40 mg tablet,delayed release 40 mg PO Q12H 11/15/22 [History Last Taken 03/13/23] furosemide 40 mg tablet 40 mg PO DAILY fluid pill 11/28/22 [History Last Taken Unknown] potassium chloride 10 mEq tablet,extended release(part/cryst) 10 meq PO DAILY SUPPLEMENT' 11/28/22 [History Last Taken Unknown] hydrocortisone 10 mg tablet 10 mg PO DAILY #90 tabs 04/26/23 [Rx Last Taken Unknown] ammonium lactate 12 % topical cream 1 applic topical TID PRN dry skin 06/12/23 [History Last Taken Unknown] carvedilol 3.125 mg tablet 3.125 mg PO Q12H 06/12/23 [History Last Taken Unknown] carvedilol 6.25 mg tablet 6.25 mg PO Q12H 06/12/23 [History Last Taken Unknown] clindamycin HCl 150 mg capsule 450 mg (3 x 150 mg) PO TID 7 days #63 caps 06/12/23 [Rx Last Taken Unknown] isosorbide mononitrate 30 mg tablet,extended release 24 hr 15 mg PO DAILY 06/12/23 [History Last Taken Unknown] Allergy/AdvReac Type Severity Reaction Status Date / Time Penicillins [PCN] Allergy Hives Verified 06/12/23 19:08 Sulfa (Sulfonamide AdvReac Severe Rash Verified 06/12/23 19:08 Antibiotics) griseofulvin AdvReac Intermediate Other Verified 06/12/23 19:08 [From Priti-PEG (ultramicrosize)] azathioprine [From Imuran] AdvReac Vomiting Verified 06/12/23 19:08 colchicine AdvReac Other Verified 06/12/23 19:08 doxycycline AdvReac Rash Verified 06/12/23 19:08 famotidine [From Pepcid] AdvReac Other Verified 06/12/23 19:08 Family History Father Heart disease Pacemaker Mother Heart disease Brother Myocardial infarction Sister Myocardial infarction Heart disease Surgical History H/O cataract extraction H/O dilation and curettage h/o mass removed from hip H/O tubal ligation History of sinus surgery Hx of cholecystectomy Presence of coronary angioplasty implant and graft Status post colon resection (~12/2021) Social History household members: spouse number of children: 5 current occupational status: retired Smoking Status: Never smoker alcohol intake: never substance use type: does not use caffeine: No additional social history: Barbara Sanford-Daughter- Manages Medical care ROS <JUAN JOSÉ Breen - Last Filed: 06/12/23 20:25> ROS ED ROS Narrative Neuro: Negative for motor/sensory dysfunction. Skin: Positive for wound. Musc: Negative for joint pain, swelling. EXAM <JUAN JOSÉ Breen - Last Filed: 06/12/23 20:25> Physical Exam Narrative Exam Narrative: CONST: Patient sitting in no acute distress. EYES: Normal inspection. NECK: Normal inspection. RESP: No respiratory distress, CTAB. SKIN: 3 cm flap skin tear laceration right dorsal hand between thumb and index finger. No active bleeding. EXTREMITIES: Normal appearance, full ROM, normal motor and sensory function of median radial ulnar distributions, 2+ radial pulse and brisk cap refill. NEURO: Oriented x4. PSYCH: Normal affect. Const Vital Signs: 06/12/23 19:08 Temperature 97.6 F L Temperature Source Temporal Pulse Rate 88 Respiratory Rate 16 Blood Pressure 143/64 H Blood Pressure Mean 90 Pulse Ox 100 <Dr. Adam Contreras MD - Last Filed: 06/12/23 22:08> Physical Exam Const Vital Signs: 06/12/23 19:08 Temperature 97.6 F L Temperature Source Temporal Pulse Rate 88 Respiratory Rate 16 Blood Pressure 143/64 H Blood Pressure Mean 90 Pulse Ox 100 MDM <JUAN JOSÉ Breen - Last Filed: 06/12/23 20:25> [facility] Narrative Medical decision making narrative: History gathered from: Patient and daughter Patient has a 3 cm skin tear and laceration on her right dorsal hand from a cat scratch. She had a small amount of bleeding which resolves with pressure. Neurovascularly intact. No evidence of tendon or bony injury so no indication for x-rays. Wound was thoroughly cleansed, dressed with bacitracin and a compressive bandage. Bleeding is controlled. Patient refused tetanus as she did not want the other ingredients in the vaccine. Since she has multiple antibiotic allergies I prescribed clindamycin with strict wound care return precautions. <Dr. Adam Contreras MD - Last Filed: 06/12/23 22:08> [facility] Treatment and Re-Evaluation :: I have personally performed a face to face assessment of the patient and have reviewed the MAKI Note. I performed a substantive portion of the visit including all aspects of the following. My freeman findings include: History: Patient was scratched in the right hand by a cat. She states she was not bitten it was all scratch. She is on Plavix. She was bleeding from the area. Exam: She has a skin tear. This was cleansed and placed back. We will offer tetanus. We will place her on antibiotics because of her some of her medical illnesses. We are quite limited due to her allergies and intolerances. Medical Decision Making: See above. Discharge Plan Triage Chief Complaint: Wound ED Midlevel Provider: Janle Fierro ED Provider: Adam Contreras Dx/Rx/DC Orders Clinical Impression: Cat scratch of hand, Skin tear of right hand without complication Instructions: Animal Bites and Scratches Prescriptions: New clindamycin HCl 150 mg capsule 450 mg PO TID 7 Days Qty: 63 0RF No Action ferrous sulfate 325 mg (65 mg iron) tablet 325 mg PO Q OTHER DAY clopidogrel [Plavix] 75 mg tablet 75 mg PO DAILY atorvastatin 40 mg tablet 40 mg PO DAILY aspirin [Adult Low Dose Aspirin] 81 mg tablet,delayed release (DR/EC) 81 mg PO DAILY cyanocobalamin (vitamin B-12) 100 mcg tablet 100 mcg PO DAILY pantoprazole 40 mg tablet,delayed release (DR/EC) 40 mg PO Q12H levothyroxine 75 MCG tablet 75 mcg PO DAILY Rx Instructions: name brand synthroid budesonide 3 MG capsule,delayed,extend.release 3 mg PO DAILY hydroxychloroquine 200 MG tablet 200 mg PO DAILYCM brimonidine 1 DROP bottle 1 drp EACH EYE BID cholecalciferol (vitamin D3) 2,000 UNIT capsule 2,000 unit PO DAILY Eylea 2 mg/0.05 mL Syringe 2 mg INTRAVITREAL .[id number] Rx Instructions: 02/27/22 Creon 12,000-38,000 -60,000 unit capsule,delayed release(DR/EC) 1 cap PO 4X/DAY Patient Comments: with three meals and one snack Lumigan 0.01 % Drops 1 drp EACH EYE QHS Probiotic 10 billion cell capsule 10,000 mmu cells PO DAILY furosemide 40 mg tablet 40 mg PO DAILY ammonium lactate 12 % cream 1 applic TOPICAL TID PRN (Reason: dry skin) Patient Comments: APPLY CREAM THINLY 2-3 TIMES DAILY UNTIL SKIN BETTER FOR A WEEK carvedilol 3.125 mg tablet 3.125 mg PO Q12H carvedilol 6.25 mg tablet 6.25 mg PO Q12H Patient Comments: TAKE 1 TABLET BY MOUTH TWICE A DAY WITH MEALS isosorbide mononitrate 30 mg tablet extended release 24 hr 15 mg PO DAILY Patient Comments: TAKE ONE-HALF TABLET(15 MG) BY MOUTH DAILY EVERY MORNING. potassium chloride 10 mEq tablet,ER particles/crystals 10 meq PO DAILY hydrocortisone 10 mg tablet 10 mg PO DAILY Qty: 90 1RF Primary Care Provider: Ashvin Cardenas Referrals: Ashvin Cardenas MD [Primary Care Provider] - Activity Restrictions/Additional Instructions: If bleeding reoccurs hold direct pressure for 10 minutes without letting go. Keep clean and bandaged. Take the antibiotics and if any signs of infection develop be reevaluated. This includes redness, swelling, pus, increased pain, or fever. Disposition Disposition: Home, Self Care Discharge Date/Time: 06/12/23 20:37
[2023-06-12] MEDS: Clindamycin HCl 150 MG Capsule 450 MG PO (20:25)
== END 2023-06-12 20:37 | disposition home or self-care (01) ==
LOC: ED 20:06
PROVIDERS: Emergency Provider Emergency Medicine; PCP Family Medicine; Visit Provider Emergency Medicine
DX: S61.411A Laceration without foreign body of right hand, initial encounter (principal); I11.0 Hypertensive heart disease with heart failure; I50.9 Heart failure, unspecified; W55.03XA Scratched by cat, initial encounter; E78.5 Hyperlipidemia, unspecified; I25.10 Atherosclerotic heart disease of native coronary artery without angina pectoris; Z79.02 Long term (current) use of antithrombotics/antiplatelets; Z88.1 Allergy status to other antibiotic agents
CPT/HCPCS: 90715; 99282

== ENCOUNTER 2023-10-18 02:49 | Emergency (ER) | payer MEDICARE, SELFPAY ==
[2023-10-18 02:50] VITALS: BP 184/84; PULSE 84; RESP 18; TEMP 36.4; O2SAT 94; BMI 24.6
--- NOTE | 2023-10-18 02:54 | EKG12_ITS ---
Test Reason : CP Blood Pressure : / mmHG Vent. Rate : 079 BPM Atrial Rate : 079 BPM P-R Int : 150 ms QRS Dur : 088 ms QT Int : 398 ms P-R-T Axes : 034 008 016 degrees QTc Int : 456 ms Normal sinus rhythm Left ventricular hypertrophy with repolarization abnormality ( R in aVL , Ollie product ) Abnormal ECG Confirmed by DEJA COELLO, GARETH ([id number]), non linear editor KEYLA CASTELLANOS ([id number]) on 10/19/2023 9:13:14 AM Referred By: JANLEL Confirmed By:GARETH SHORT MD
[2023-10-18 03:03] VITALS: BP 153/68
--- NOTE | 2023-10-18 03:14 | RAD_ITS ---
INDICATION: chest pain EXAMINATION/TECHNIQUE: X-RAY - XR Chest 1 View COMPARISON: None. Findings: Single frontal view of the chest. LUNG PARENCHYMA: No acute focal airspace disease or mass lesion. PLEURA: No pleural effusion. No pneumothorax. HEART/GREAT VESSELS: Cardiomediastinal silhouette is enlarged. BONES: Osseous structures are unremarkable for age. RAD/Chest 1 View (Portable) IMPRESSION: Chest with no acute disease. Electronically Signed: Andrew Blackman MD at 4:42 EDT ,
--- NOTE | 2023-10-18 03:18 | EX.ED.DYSGE1 ---
HPI History of Present Illness Chief Complaint: Chest Pain Informant: patient, family and EMS Narrative Narrative: Patient is an 83-year-old female with past medical history of mitral valve insufficiency coronary artery disease paroxysmal atrial fibrillation and Sojourn's disease. She states throughout the day today she would feel midsternal to right-sided chest discomfort. She states it would come on whether she was at rest or moving it would only last a second or 2 and then resolve. She states there is no associated nausea vomiting diaphoresis or shortness of breath. She denies any recent trauma. She states she was able to go to sleep and got up to use the bathroom and felt like she had the same pain but that it was occurring more closely together and therefore he contacted her daughter who brought her in the hospital secondary to her current symptoms and past medical history of CAD [facility] Medical History Abdominal pain Adrenal insufficiency Aortic insufficiency Bladder disease Bloating symptom Bright red blood per rectum Cardiology follow-up encounter Chronic hyponatremia Colostomy in place Dietary restriction Difficulty chewing Difficulty swallowing Diverticulitis Easy bruising Elevated troponin Fatty liver Forgetfulness Gastric reflux Glaucoma Hearing loss, left Hearing loss, right Heart attack (~03/2022) Heart disease Hepatitis History of CHF (congestive heart failure) History of Clostridium difficile infection History of echocardiogram History of edema History of hiatal hernia History of irregular heartbeat History of left heart catheterization (LHC) (~03/27/22) History of non-ST elevation myocardial infarction (NSTEMI) History of steroid therapy Hypertension Hyperthyroidism Hypothyroidism Idiopathic thrombocytopenia Loss of hearing Low iron Lupus Macular degeneration Migraines Monoclonal gammopathies NASAL POLYP REMOVED Non-smoker Nonrheumatic aortic (valve) stenosis with insufficiency Nonrheumatic mitral valve stenosis with insufficiency Osteopenia Presence of stent in coronary artery (~04/06/22) Pulmonary arterial hypertension Rheumatic fever Secondary adrenal insufficiency Severe mitral regurgitation 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 Tachycardia Walker as ambulation aid Wears glasses Home Medications brimonidine 0.15 % eye drops 1 drp EACH EYE BID eye drops 06/23/17 [History Last Taken 01/11/22] budesonide 3 mg capsule,delayed,extended release 3 mg PO DAILY inflammation 06/23/17 [History Last Taken 01/10/22] hydroxychloroquine 200 mg tablet 200 mg PO DAILYCM lupus 06/23/17 [History Last Taken 01/10/22] levothyroxine 75 mcg tablet 75 mcg PO DAILY thyroid 06/23/17 [History Last Taken 03/13/23] cholecalciferol (vitamin D3) 50 mcg (2,000 unit) capsule 2,000 unit PO DAILY SUPPLEMENT 07/30/19 [History Last Taken 01/10/22] aflibercept 2 mg/0.05 mL intravitreal syringe (Eylea) 2 mg intravitreal .[id number] EYE HEALTH 03/28/21 [History Last Taken 01/09/22] lfhrka-fmdngojy-ttedgob 12,000-38,000-60,000 unit capsule,delayed rel (Creon) 1 cap PO 4X/DAY enzymes 04/29/21 [History Last Taken 01/10/22] bimatoprost 0.01 % eye drops (Lumigan) 1 drp EACH EYE Q EYE HEALTH 01/11/22 [History Last Taken 01/11/22] atorvastatin 40 mg tablet 40 mg PO DAILY 05/04/22 [History Last Taken Unknown] clopidogrel 75 mg tablet (Plavix) 75 mg PO DAILY 05/04/22 [History Last Taken Unknown] ferrous sulfate 325 mg (65 mg iron) tablet 325 mg PO Q OTHER DAY 05/24/22 [History Last Taken Unknown] Lactobacillus acidophilus 10 billion cell capsule (Probiotic) 10,000 mmu cells PO DAILY IMMUNE HEALTH 07/13/22 [History Last Taken Unknown] aspirin 81 mg tablet,delayed release (Adult Low Dose Aspirin) 81 mg PO DAILY 07/13/22 [History Last Taken Unknown] cyanocobalamin (vitamin B-12) 100 mcg tablet 100 mcg PO DAILY 07/13/22 [History Last Taken Unknown] pantoprazole 40 mg tablet,delayed release 40 mg PO Q12H 11/15/22 [History Last Taken 03/13/23] furosemide 40 mg tablet 40 mg PO DAILY fluid pill 11/28/22 [History Last Taken Unknown] potassium chloride 10 mEq tablet,extended release(part/cryst) 10 meq PO DAILY SUPPLEMENT' 11/28/22 [History Last Taken Unknown] hydrocortisone 10 mg tablet 10 mg PO DAILY #90 tabs 04/26/23 [Rx Last Taken Unknown] ammonium lactate 12 % topical cream 1 applic topical TID PRN dry skin 06/12/23 [History Last Taken Unknown] carvedilol 3.125 mg tablet 3.125 mg PO Q12H 06/12/23 [History Last Taken Unknown] carvedilol 6.25 mg tablet 6.25 mg PO Q12H 06/12/23 [History Last Taken Unknown] isosorbide mononitrate 30 mg tablet,extended release 24 hr 15 mg PO DAILY 06/12/23 [History Last Taken Unknown] Allergy/AdvReac Type Severity Reaction Status Date / Time Penicillins [PCN] Allergy Hives Verified 10/18/23 02:54 Sulfa (Sulfonamide AdvReac Severe Rash Verified 10/18/23 02:54 Antibiotics) griseofulvin AdvReac Intermediate Other Verified 10/18/23 02:54 [From Priti-PEG (ultramicrosize)] azathioprine [From Imuran] AdvReac Vomiting Verified 10/18/23 02:54 colchicine AdvReac Other Verified 10/18/23 02:54 doxycycline AdvReac Rash Verified 10/18/23 02:54 famotidine [From Pepcid] AdvReac Other Verified 10/18/23 02:54 Family History Father Heart disease Pacemaker Mother Heart disease Brother Myocardial infarction Sister Myocardial infarction Heart disease Surgical History H/O cataract extraction H/O colonoscopy H/O dilation and curettage h/o mass removed from hip H/O tubal ligation History of sinus surgery Hx of cholecystectomy Presence of coronary angioplasty implant and graft Status post colon resection (~12/2021) Social History household members: spouse number of children: 5 current occupational status: retired Smoking Status: Never smoker alcohol intake: never substance use type: does not use caffeine: No additional social history: Barbara Sanford-Daughter- Manages Medical care [facility] ED Constitutional Constitutional ED: Denies chills or fever(s) ENT ENT ED: Denies sore throat Cardiovascular Cardiovascular: Reports chest pain and palpitations; Denies racing heartbeat Respiratory/Chest Respiratory/Chest: Denies cough or dyspnea Gastrointestinal Gastrointestinal: Denies abdominal pain, diarrhea, nausea or vomiting Genitourinary Genitourinary ED: Denies dysuria Musculoskeletal Musculoskeletal: Denies back pain or myalgias Integumentary Denies rash Neurologic Neurologic: Denies headache(s) Hematologic/Lymphatic Hematologic/Lymphatic: Reports easy bleeding and easy bruising EXAM Physical Exam Const Vital Signs: 10/18/23 02:50 10/18/23 02:53 10/18/23 03:03 Temperature 97.6 F L Temperature Source Temporal Pulse Rate 84 Respiratory Rate 18 Respiratory Effort Normal Non-Labored Blood Pressure 184/84 H 153/68 H Blood Pressure Mean 117 96 Pulse Ox 94 Oxygen Delivery Method Room Air 10/18/23 04:00 Temperature Temperature Source Pulse Rate 74 Respiratory Rate 18 Respiratory Effort Blood Pressure 150/60 H Blood Pressure Mean 90 Pulse Ox 96 Oxygen Delivery Method Room Air Positive well nourished, well developed and obese General Appearance ED: well developed Nutritional Appearance: obese HEENT HEENT Narrative: Normocephalic Patient has a large area of ecchymosis along the right orbit/cheek. She states that this occurred spontaneously and that there was no trauma. There is no erythema or warmth to suggest this is infection Eyes PERRL and EOMs intact bilaterally General Eye ED: Negative for scleral icterus Neck supple and no JVD Neck Narrative: No nuchal rigidity or meningeal signs Chest Wall Chest Narrative: There is reproducible right midsternal to anterior chest wall pain on palpation rib region 6-8 that is similar to the patient's pain she has been experiencing. There is no obvious bony deformity or crepitance palpated. No overlying abrasions or ecchymosis or erythema Resp normal respiratory effort and clear to auscultation bilaterally Resp Narrative: Breath sounds are diminished throughout but overall clear to auscultation No nasal flaring retractions tachypnea or accessory muscle use Cardio regular rate and regular rhythm Rate: other Other Details: Heart is regular rate and rhythm with a grade 5 out of 6 holosystolic murmur There is an occasional ectopic beat noted GI normal to inspection, nondistended, normoactive bowel sounds, non-tender and non-distended GI Narrative: Patient has a colostomy in place that is draining stool. The abdomen is soft nontender nondistended. No overlying soft tissue changes to suggest infection around the ostomy. No pulsatile mass or fluid wave noted Auscultation: normoactive bowel sounds Palpation: soft Extremity normal to inspection Extremity Narrative: No asymmetric edema no pitting edema negative Homans' sign bilaterally Neuro oriented x3, CN's II-XII intact bilaterally and no sensory deficits noted Sensorium / Orientation: alert Motor Exam: strength 5/5 throughout Psych mental status grossly normal Skin no rashes or lesions noted Skin Narrative: Ecchymosis along the right orbit/cheek as documented above Patient also has areas of spontaneous ecchymosis along the dorsal aspect of bilateral arms and lower legs MDM MDM MDM Narrative Medical decision making narrative: Patient presented to the ER hypertensive but otherwise with stable vitals. She reported atypical chest pain and the fact that was sharp and occurred for only a second or 2 and then resolved with no associated symptom. Differential diagnosis is for acute coronary syndrome versus pneumonia versus pneumothorax versus congestive heart failure versus cardiac dysrhythmia versus ectopy. Basic blood work was obtained which revealed no clinically significant finding. The patient is EKG was similar to the one from roughly 1 year ago and her initial troponin was 30 with delta decreasing to 27 going against acute coronary syndrome and this is much better than when she had a CO in 2021 with a troponin level of 1700. Chest x-ray revealed no acute lung pathology. Patient was kept on the monitor and had occasional PVCs noted which is most likely the cause of her symptoms. However at this time she does not have any clinically significant electrolyte abnormality and she is not showing a true cardiac dysrhythmia and there is no signs of acute coronary syndrome she is safe to return home History & Record Review Discussion w/independent historian: Patient and Family Lab Data Attestation: I reviewed the patient's lab results. Labs: Laboratory Results - last 24 hr 10/18/23 10/18/23 02:55 04:57 WBC 9.7 RBC 4.27 Hgb 13.3 Hct 40.4 MCV 94.6 MCH 31.1 MCHC 32.9 RDW Std Deviation 55.1 H RDW Coeff of Samreen 15.9 H Plt Count 148 L MPV 9.7 Immature Gran % (Auto) 1.300 H Neut % (Auto) 61.3 Lymph % (Auto) 26.8 [place] % (Auto) 9.3 Eos % (Auto) 0.7 Baso % (Auto) 0.6 Absolute Neuts (auto) 5.9 Absolute Lymphs (auto) 2.59 Nucleated RBC % 0 PT 13.2 INR 1.0 APTT 22.0 L Sodium 134 L Potassium 3.8 Chloride 100 Carbon Dioxide 26.0 Anion Gap 8 BUN 21 H Creatinine 1.12 H Estim Creat Clear Calc 27.34 Est GFR (MDRD) Af Amer 60 Est GFR (MDRD) Non-Af 49 L BUN/Creatinine Ratio 18.8 Glucose 98 Calcium 9.0 Magnesium 2.0 Troponin I High Sens 30 27 TSH 5.93 H Radiography Diagnostic Testing: Clinical Impression(s) from Imaging Studies Chest X-Ray 10/18/23 03:14 IMPRESSION: Chest with no acute disease. Electronically Signed: Andrew Blackman MD at 4:42 EDT , Chest x-ray as interpreted by the emergency medicine physician reveals no acute infiltrate pneumothorax or pleural effusion Discharge Plan Triage Chief Complaint: Chest Pain ED Provider: Destin Echeverria Dx/Rx/DC Orders Clinical Impression: Nonspecific chest pain, PVC (premature ventricular contraction), Sjogren's disease, CAD (coronary artery disease) Instructions: PVCs, ED Chest Pain, Uncertain Cause Prescriptions: No Action ferrous sulfate 325 mg (65 mg iron) tablet 325 mg PO Q OTHER DAY clopidogrel [Plavix] 75 mg tablet 75 mg PO DAILY atorvastatin 40 mg tablet 40 mg PO DAILY aspirin [Adult Low Dose Aspirin] 81 mg tablet,delayed release (DR/EC) 81 mg PO DAILY cyanocobalamin (vitamin B-12) 100 mcg tablet 100 mcg PO DAILY pantoprazole 40 mg tablet,delayed release (DR/EC) 40 mg PO Q12H levothyroxine 75 MCG tablet 75 mcg PO DAILY Rx Instructions: name brand synthroid budesonide 3 MG capsule,delayed,extend.release 3 mg PO DAILY hydroxychloroquine 200 MG tablet 200 mg PO DAILYCM brimonidine 1 DROP bottle 1 drp EACH EYE BID cholecalciferol (vitamin D3) 2,000 UNIT capsule 2,000 unit PO DAILY Eylea 2 mg/0.05 mL Syringe 2 mg INTRAVITREAL .[id number] Rx Instructions: 02/27/22 Creon 12,000-38,000 -60,000 unit capsule,delayed release(DR/EC) 1 cap PO 4X/DAY Patient Comments: with three meals and one snack Lumigan 0.01 % Drops 1 drp EACH EYE QHS Probiotic 10 billion cell capsule 10,000 mmu cells PO DAILY furosemide 40 mg tablet 40 mg PO DAILY ammonium lactate 12 % cream 1 applic TOPICAL TID PRN (Reason: dry skin) Patient Comments: APPLY CREAM THINLY 2-3 TIMES DAILY UNTIL SKIN BETTER FOR A WEEK carvedilol 3.125 mg tablet 3.125 mg PO Q12H carvedilol 6.25 mg tablet 6.25 mg PO Q12H Patient Comments: TAKE 1 TABLET BY MOUTH TWICE A DAY WITH MEALS isosorbide mononitrate 30 mg tablet extended release 24 hr 15 mg PO DAILY Patient Comments: TAKE ONE-HALF TABLET(15 MG) BY MOUTH DAILY EVERY MORNING. potassium chloride 10 mEq tablet,ER particles/crystals 10 meq PO DAILY hydrocortisone 10 mg tablet 10 mg PO DAILY Qty: 90 1RF Primary Care Provider: Ashvin Cardenas Referrals: Ashvni Cardenas MD [Primary Care Provider] - Activity Restrictions/Additional Instructions: Your workup showed no signs of a abnormal heart rhythm or signs of active heart disease. Continue all of your medications as previously directed by your doctor. You did have occasional extra beats known as premature ventricular contractions which could be the source of your pain. Return to the ER should you have any further concerns
[2023-10-18 03:26] LABS: Absolute Lymphocyte Count 2.59 X10^3/uL (0.83-4.51); Absolute Neutrophil Count 5.9 X10^3/uL (2.0-7.7); Basophil# 0.06 X10^3/uL; Basophil% 0.6 % (0-1); Eosinophil# 0.07 X10^3/uL; Eosinophils% 0.7 % (0-5); Hematocrit 40.4 % (37-47); Hemoglobin 13.3 g/dL (12.0-15.0); Lymphocyte # 2.59 X10^3/ul (0.83-4.51); Lymphocyte % 26.8 % (19-41); Mean Corp Hgb Conc 32.9 g/dL (32-36); Mean Corpuscular Hgb 31.1 pg (27.0-32.0); Mean Corpuscular Volume 94.6 fL (81-99); Mean Platelet Vol. 9.7 fl (6.2-12.0); Monocyte% 9.3 % (0-10); NRBC Flagged by Analyzer 0 % (0-5); Neutrophil # 5.92 X10^3/uL (2.7-7.7); Neutrophil % 61.3 % (47-70); Platelet Count 148 K/mm3 (150-450); RBC Distribution Width CV 15.9 % (11.6-14.6); RBC Distribution Width SD 55.1 fl (35.1-43.9); Red Blood Count 4.27 M/mm3 (4.2-5.4); White Blood Count 9.7 K/mm3 (4.4-11.0)
[2023-10-18 03:36] LABS: Prothrombin Time (Protime)PT. 13.2 SECONDS (11.7-14.9)
[2023-10-18 03:51] LABS: Anion Gap 8 (5-15); BUN 21 mg/dL (7-18); BUN/Creat Ratio 18.8 RATIO (10-20); Chloride 100 mmol/L (98-107); Creatinine, Serum 1.12 mg/dL (0.55-1.02); EST Glomerular Filtration Rate 49 mL/min (>60); Est Glom Filt Rate - Afr Amer 60 mL/min (>60); Estimated Creatinine Clearance 27.34 ml/min; Glucose 98 mg/dL (74-106); Potassium 3.8 mmol/L (3.5-5.1); Sodium Level 134 mmol/L (136-145); Thyroid Stim Hormone (TSH) 5.93 uIU/mL (0.358-3.74); Troponin-I HS 30 pg/mL (3.0-54.0)
[2023-10-18 04:00] VITALS: BP 150/60; PULSE 74; RESP 18; O2SAT 96
[2023-10-18 05:00] VITALS: BP 136/53; PULSE 81; RESP 16; O2SAT 97
[2023-10-18 05:20] LABS: Troponin-I HS 27 pg/mL (3.0-54.0)
[2023-10-18 05:31] VITALS: BP 149/68; PULSE 80; RESP 17; TEMP 36.6; O2SAT 95
== END 2023-10-18 05:31 | disposition home or self-care (01) ==
PROVIDERS: Emergency Provider Emergency Medicine; PCP Family Medicine; Visit Provider Emergency Medicine
DX: R07.9 Chest pain, unspecified (principal); Z93.3 Colostomy status; I11.0 Hypertensive heart disease with heart failure; I50.9 Heart failure, unspecified; I48.0 Paroxysmal atrial fibrillation; M35.00 Sjogren syndrome, unspecified; I25.10 Atherosclerotic heart disease of native coronary artery without angina pectoris; I49.3 Ventricular premature depolarization; Z79.02 Long term (current) use of antithrombotics/antiplatelets; Z79.890 Hormone replacement therapy; Z79.899 Other long term (current) drug therapy; I25.2 Old myocardial infarction
CPT/HCPCS: 71045; 80048; 83735; 84443; 84484; 85025; 85610; 85730; 93005; 99283; A4216

== ENCOUNTER 2023-10-26 21:57 | Emergency (ER) | payer MEDICARE, SELFPAY ==
[2023-10-26 22:00] VITALS: BP 152/86; PULSE 90; RESP 20; TEMP 36.6; O2SAT 99
--- NOTE | 2023-10-26 22:31 | EDS_ITS ---
HPI History of Present Illness Chief Complaint: Chest Pain Informant: patient and family (Daughter) Onset/Context/Timing Onset: Weeks (1) Activity at onset: gradual and onset Timing: Intermittent and Lasts (A little while) Quality: Positive for - (A whisper of pain) Location: Right Chest (Earlier in the week) and Left Chest (Today. No radiation.) Current Severity: Gone Maximum Severity: Mild Worsened By: Nothing; Not Worsened By Breathing Relieved By: Nothing Associated Symptoms: Positive for Dyspnea (occasional episode of breathlessness not necessarily associated w/ CP); Negative for Nausea, Vomiting, Diaphoresis, Cough, Fever, Lightheadedness or Palpitations Narrative Narrative: 83-year-old female with a history of coronary disease presenting for intermittent chest discomfort that she states has been going on for a week, since the last time I was here. She states this morning she had a sharp pain in her left chest that was brief, and then throughout the day she has had sev eral episodes of a whisper of pain in the left side of her chest without radiating. No other associated symptoms during this but she had an episode of breathlessness tonight that she states she has relatively frequently, and her children were concerned and thought she should have this evaluated since she has a history of heart disease. She follows at [facility]. Her daughter states she has a blockage on the left side that cannot be gotten to, and we will treat it medically unless there is an emergency. [facility] Medical History Abdominal pain Adrenal insufficiency Aortic insufficiency Bladder disease Bloating symptom Bright red blood per rectum Cardiology follow-up encounter Chronic hyponatremia Colostomy in place Dietary restriction Difficulty chewing Difficulty swallowing Diverticulitis Easy bruising Elevated troponin Fatty liver Forgetfulness Gastric reflux Glaucoma Hearing loss, left Hearing loss, right Heart attack (~03/2022) Heart disease Hepatitis History of CHF (congestive heart failure) History of Clostridium difficile infection History of echocardiogram History of edema History of hiatal hernia History of irregular heartbeat History of left heart catheterization (LHC) (~03/27/22) History of non-ST elevation myocardial infarction (NSTEMI) History of steroid therapy Hypertension Hyperthyroidism Hypothyroidism Idiopathic thrombocytopenia Loss of hearing Low iron Lupus Macular degeneration Migraines Monoclonal gammopathies NASAL POLYP REMOVED Non-smoker Nonrheumatic aortic (valve) stenosis with insufficiency Nonrheumatic mitral valve stenosis with insufficiency Osteopenia Presence of stent in coronary artery (~04/06/22) Pulmonary arterial hypertension Rheumatic fever Secondary adrenal insufficiency Severe mitral regurgitation 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 Tachycardia Walker as ambulation aid Wears glasses Home Medications brimonidine 0.15 % eye drops 1 drp EACH EYE BID eye drops 06/23/17 [History Last Taken 01/11/22] budesonide 3 mg capsule,delayed,extended release 3 mg PO DAILY inflammation 06/23/17 [History Last Taken 01/10/22] hydroxychloroquine 200 mg tablet 200 mg PO DAILYCM lupus 06/23/17 [History Last Taken 01/10/22] levothyroxine 75 mcg tablet 75 mcg PO DAILY thyroid 06/23/17 [History Last Taken 03/13/23] cholecalciferol (vitamin D3) 50 mcg (2,000 unit) capsule 2,000 unit PO DAILY SUPPLEMENT 07/30/19 [History Last Taken 01/10/22] aflibercept 2 mg/0.05 mL intravitreal syringe (Eylea) 2 mg intravitreal .[id number] EYE HEALTH 03/28/21 [History Last Taken 01/09/22] [id number] 12,000-38,000-60,000 unit capsule,delayed rel (Creon) 1 cap PO 4X/DAY enzymes 04/29/21 [History Last Taken 01/10/22] bimatoprost 0.01 % eye drops (Lumigan) 1 drp EACH EYE Q EYE HEALTH 01/11/22 [History Last Taken 01/11/22] atorvastatin 40 mg tablet 40 mg PO DAILY 05/04/22 [History Last Taken Unknown] clopidogrel 75 mg tablet (Plavix) 75 mg PO DAILY 05/04/22 [History Last Taken Unknown] ferrous sulfate 325 mg (65 mg iron) tablet 325 mg PO Q OTHER DAY 05/24/22 [H istory Last Taken Unknown] Lactobacillus acidophilus 10 billion cell capsule (Probiotic) 10,000 mmu cells PO DAILY IMMUNE HEALTH 07/13/22 [History Last Taken Unknown] aspirin 81 mg tablet,delayed release (Adult Low Dose Aspirin) 81 mg PO DAILY 07/13/22 [History Last Taken Unknown] cyanocobalamin (vitamin B-12) 100 mcg tablet 100 mcg PO DAILY 07/13/22 [History Last Taken Unknown] pantoprazole 40 mg tablet,delayed release 40 mg PO Q12H 11/15/22 [History Last Taken 03/13/23] furosemide 40 mg tablet 40 mg PO DAILY fluid pill 11/28/22 [History Last Taken Unknown] potassium chloride 10 mEq tablet,extended release(part/cryst) 10 meq PO DAILY SUPPLEMENT' 11/28/22 [History Last Taken Unknown] hydrocortisone 10 mg tablet 10 mg PO DAILY #90 tabs 04/26/23 [Rx Last Taken Unknown] ammonium lactate 12 % topical cream 1 applic topical TID PRN dry skin 06/12/23 [History Last Taken Unknown] carvedilol 3.125 mg tablet 3.125 mg PO Q12H 06/12/23 [History Last Taken Unknown] carvedilol 6.25 mg tablet 6.25 mg PO Q12H 06/12/23 [History Last Taken Unknown] isosorbide mononitrate 30 mg tablet,extended release 24 hr 15 mg PO DAILY 06/12/23 [History Last Taken Unknown] Allergy/AdvReac Type Severity Reaction Status Date / Time Penicillins [PCN] Allergy Hives Verified 10/26/23 22:00 Sulfa (Sulfonamide AdvReac Severe Rash Verified 10/26/23 22:00 Antibiotics) griseofulvin AdvReac Intermediate Other Verified 10/26/23 22:00 [From Priti-PEG (ultramicrosize)] azathioprine [From Imuran] AdvReac Vomiting Verified 10/26/23 22:00 colchicine AdvReac Other Verified 10/26/23 22:00 doxycycline AdvReac Rash Verified 10/26/23 22:00 famotidine [From Pepcid] AdvReac Other Verified 10/26/23 22:00 Family History Father Heart disease Pacemaker Mother Heart disease Brother Myocardial infarction Sister Myocardial infarction Heart disease Surgical History H/O cataract extraction H/O colonoscopy H/O dilation and curettage h/o mass removed from hip H/O tubal ligation History of sinus surgery Hx of cholecystectomy Presence of coronary angioplasty implant and graft Status post colon resection (~12/2021) Social History household members: spouse number of children: 5 current occupational status: retired Smoking Status: Never smoker alcohol intake: never substance use type: does not use caffeine: No additional social history: Barbara Sanford-Daughter- Manages Medical care ROS ROS ED Constitutional Constitutional ED: Denies chills or fever(s) Eyes Eyes: Denies change in vision or diplopia ENT ENT ED: Denies rhinorrhea or sore throat Cardiovascular Cardiovascular: Reports as per HPI and chest pain; Denies orthopnea, palpitations, radiating jaw, neck or arm pain or syncope Respiratory/Chest Respiratory/Chest: Reports dyspnea; Denies cough or orthopnea Gastrointestinal Gastrointestinal: Denies abdominal pain, diarrhea, nausea or vomiting Genitourinary Genitourinary ED: Denies dysuria or hematuria Musculoskeletal Musculoskeletal: Denies back pain or neck pain Integumentary Denies abscess or rash Neurologic Neurologic: Denies headache(s), paresthesias or weakness Psychiatric Psychiatric: Denies suicidal ideation or suicidal thoughts EXAM Physical Exam Const Vital Signs: 10/26/23 22:00 10/26/23 22:05 10/26/23 22:36 Temperature 97.8 F Temperature Source Temporal Pulse Rate 90 Respiratory Rate 20 H Respiratory Effort Normal Respiratory Pattern Normal Blood Pressure 152/86 H Blood Pressure Mean 108 Pulse Ox 99 Oxygen Delivery Method Room Air Room Air 10/26/23 23:00 10/27/23 00:00 Temperature Temperature Source Pulse Rate 70 81 Respiratory Rate 16 16 Respiratory Effort Respiratory Pattern Blood Pressure 137/58 H 124/57 H Blood Pressure Mean 84 79 Pulse Ox 97 99 Oxygen Delivery Method Room Air Room Air Positive well nourished and well developed General Appearance ED: well developed and NAD HEENT Reports moist mucous membranes normocephalic and atraumatic Eyes PERRL and EOMs intact bilaterally Neck full ROM and supple Resp normal respiratory effort and clear to auscultation bilaterally Cardio regular rate, regular rhythm and no murmurs GI non-tender and non-distended Auscultation: normoactive bowel sounds Palpation: soft Back/Spine no CVA tenderness General Back: other FROM Extremity normal to inspection General Extremety ED: Negative for edema, pulses abnormal or tenderness General Extremity: Negative for edema or pulses abnormal Neuro oriented x3, CN's II-XII intact bilaterally and no sensory deficits noted Sensorium / Orientation: awake and alert Motor Exam: strength 5/5 throughout Skin no rashes or lesions noted and no wounds Heart Score History: Slightly/Non-Suspicious ECG: Normal Age: >/= 65 years Risk Factors: >/= 3 Risk Factors or History of CAD Troponin: </= Normal Limit Score: 4 MDM MDM MDM Narrative Medical decision making narrative: Chest x-ray 1 view my interpretation shows nothing acute some is just some chronic changes radiology was in agreement. EKG shows no acute injury pattern and no change compared with her prior. Her labs are unremarkable, we did 2 sets of enzymes, they were 16 and 18 which is an insignificant change. She has no recurrent symptoms in the ER. She did have some ventricular ectopy while in the emergency department and felt some of it, she states this has been a chronically recurring/intermittent issue. I do not think it is necessarily related to her acute complaints with regards to have an acute coronary syndrome which I do not think she has right now. She is actually scheduled to follow-up with her fruit grader in [place] on Sunday, today being Sunday. At this time I think she is stable to be discharged home. She is in agreement and daughter is as well, answered all the questions at the bedside. Lab Data Attestation: I reviewed the patient's lab results. Labs: Laboratory Results - last 24 hr 10/26/23 10/27/23 22:15 00:12 WBC 9.3 RBC 4.08 L Hgb 12.7 Hct 38.8 MCV 95.1 MCH 31.1 MCHC 32.7 RDW Std Deviation 55.2 H RDW Coeff of Samreen 15.8 H Plt Count 159 MPV 9.9 Immature Gran % (Auto) 0.900 Neut % (Auto) 68.6 Lymph % (Auto) 19.1 [place] % (Auto) 10.7 H Eos % (Auto) 0.3 Baso % (Auto) 0.4 Absolute Neuts (auto) 6.4 Absolute Lymphs (auto) 1.77 Nucleated RBC % 0 Sodium 133 L Potassium 3.8 Chloride 100 Carbon Dioxide 26.0 Anion Gap 7 BUN 17 Creatinine 1.11 H Est GFR (MDRD) Af Amer 60 Est GFR (MDRD) Non-Af 50 L BUN/Creatinine Ratio 15.3 Glucose 131 H Calcium 8.7 Troponin I High Sens 16 18 Radiography Chest X-Ray - ED: 1 View, Read by ED Physician, No Acute Disease and No Infiltrates Diagnostic Testing: Clinical Impression(s) from Imaging Studies Chest X-Ray 10/26/23 22:35 IMPRESSION: No active disease. Cardiomegaly. Electronically Signed: Alexis Caban MD at 22:52 EDT Reading Location ID and State: [facility] / [place] Tel , Service support , Rhythm Strip Rhythm Strip: Sinus Rhythm Rate: 75 Ectopy: PVC(s) EKG Initial EKG: Attestation: I personally reviewed and interpreted this EKG as follows: Interpretation: Sinus Rhythm and No Acute Injury Pattern Discharge Plan Triage Chief Complaint: Chest Pain Other Complaint: Weakness ED Provider: Manuel Pickett Dx/Rx/DC Orders Clinical Impression: Intermittent chest pain Instructions: ED Chest Pain, Uncertain Cause Prescriptions: No Action ferrous sulfate 325 mg (65 mg iron) tablet 325 mg PO Q OTHER DAY clopidogrel [Plavix] 75 mg tablet 75 mg PO DAILY atorvastatin 40 mg tablet 40 mg PO DAILY aspirin [Adult Low Dose Aspirin] 81 mg tablet,delayed release (DR/EC) 81 mg PO DAILY cyanocobalamin (vitamin B-12) 100 mcg tablet 100 mcg PO DAILY pantoprazole 40 mg tablet,delayed release (DR/EC) 40 mg PO Q12H levothyroxine 75 MCG tablet 75 mcg PO DAILY Rx Instructions: name brand synthroid budesonide 3 MG capsule,delayed,extend.release 3 mg PO DAILY hydroxychloroquine 200 MG tablet 200 mg PO DAILYCM brimonidine 1 DROP bottle 1 drp EACH EYE BID cholecalciferol (vitamin D3) 2,000 UNIT capsule 2,000 unit PO DAILY Eylea 2 mg/0.05 mL Syringe 2 mg INTRAVITREAL .[id number] Rx Instructions: 02/27/22 Creon 12,000-38,000 -60,000 unit capsule,delayed release(DR/EC) 1 cap PO 4X/DAY Patient Comments: with three meals and one snack Lumigan 0.01 % Drops 1 drp EACH EYE QHS Probiotic 10 billion cell capsule 10,000 mmu cells PO DAILY furosemide 40 mg tablet 40 mg PO DAILY ammonium lactate 12 % cream 1 applic TOPICAL TID PRN (Reason: dry skin) Patient Comments: APPLY CREAM THINLY 2-3 TIMES DAILY UNTIL SKIN BETTER FOR A WEEK carvedilol 3.125 mg tablet 3.125 mg PO Q12H carvedilol 6.25 mg tablet 6.25 mg PO Q12H Patient Comments: TAKE 1 TABLET BY MOUTH TWICE A DAY WITH MEALS isosorbide mononitrate 30 mg tablet extended release 24 hr 15 mg PO DAILY Patient Comments: TAKE ONE-HALF TABLET(15 MG) BY MOUTH DAILY EVERY MORNING. potassium chloride 10 mEq tablet,ER particles/crystals 10 meq PO DAILY hydrocortisone 10 mg tablet 10 mg PO DAILY Qty: 90 1RF Primary Care Provider: Ashvin Cardenas Referrals: Ashvin Cardenas MD [Primary Care Provider] - Doctor,Your [Non-Staff] - [facility] appointment Disposition Disposition: Home, Self Care
--- NOTE | 2023-10-26 22:31 | EKG12_ITS ---
Test Reason : CP Blood Pressure : / mmHG Vent. Rate : 087 BPM Atrial Rate : 087 BPM P-R Int : 150 ms QRS Dur : 086 ms QT Int : 378 ms P-R-T Axes : 052 000 012 degrees QTc Int : 454 ms Normal sinus rhythm Minimal voltage criteria for LVH, may be normal variant ( R in aVL ) Nonspecific ST abnormality Abnormal ECG Confirmed by Abdullahi Alarcon ([id number]), video editor [address]UL ST ([id number]) on 10/29/2023 6:38:18 AM Referred By: ROSEMARY Confirmed By:Abdullahi Alarcon
--- NOTE | 2023-10-26 22:35 | RAD_ITS ---
STUDY: X-RAY CHEST REASON FOR EXAM: Female, 83 years old. chest pain TECHNIQUE: Single AP portable view of the chest. COMPARISON: 10/18/2023 FINDINGS: The lungs are clear and expanded. There is no demonstrated pleural abnormality. There is moderate cardiac enlargement. Normal mediastinum and alejandro. Normal visualized pulmonary arteries. Normal visualized aortic arch and descending thoracic aorta. There is a dextroscoliosis of the thoracic spine. Normal visualized ribs, clavicles, and shoulders. There is no demonstrated abnormality of the visualized soft tissue structures of the upper abdomen. RAD/Chest 1 View (Portable) IMPRESSION: No active disease. Cardiomegaly. Electronically Signed: Alexis Caban MD at 22:52 EDT ,
[2023-10-26 22:46] LABS: Absolute Lymphocyte Count 1.77 X10^3/uL (0.83-4.51); Absolute Neutrophil Count 6.4 X10^3/uL (2.0-7.7); Basophil# 0.04 X10^3/uL; Basophil% 0.4 % (0-1); Eosinophil# 0.03 X10^3/uL; Eosinophils% 0.3 % (0-5); Hematocrit 38.8 % (37-47); Hemoglobin 12.7 g/dL (12.0-15.0); Lymphocyte # 1.77 X10^3/ul (0.83-4.51); Lymphocyte % 19.1 % (19-41); Mean Corp Hgb Conc 32.7 g/dL (32-36); Mean Corpuscular Hgb 31.1 pg (27.0-32.0); Mean Corpuscular Volume 95.1 fL (81-99); Mean Platelet Vol. 9.9 fl (6.2-12.0); Monocyte# 0.99 X10^3/uL; Monocyte% 10.7 % (0-10); NRBC Flagged by Analyzer 0 % (0-5); Neutrophil # 6.35 X10^3/uL (2.7-7.7); Neutrophil % 68.6 % (47-70); Platelet Count 159 K/mm3 (150-450); RBC Distribution Width CV 15.8 % (11.6-14.6); RBC Distribution Width SD 55.2 fl (35.1-43.9); Red Blood Count 4.08 M/mm3 (4.2-5.4); White Blood Count 9.3 K/mm3 (4.4-11.0)
[2023-10-26 23:00] VITALS: BP 137/58; PULSE 70; RESP 16; O2SAT 97
[2023-10-26 23:24] LABS: Anion Gap 7 (5-15); BUN 17 mg/dL (7-18); BUN/Creat Ratio 15.3 RATIO (10-20); Calcium,Total 8.7 mg/dL (8.5-10.1); Chloride 100 mmol/L (98-107); Creatinine, Serum 1.11 mg/dL (0.55-1.02); EST Glomerular Filtration Rate 50 mL/min (>60); Est Glom Filt Rate - Afr Amer 60 mL/min (>60); Glucose 131 mg/dL (74-106); Potassium 3.8 mmol/L (3.5-5.1); Sodium Level 133 mmol/L (136-145); Troponin-I HS (w/2H Reflex) 16 pg/mL (3.0-54.0)
[2023-10-27] VITALS: BP 124/57; PULSE 81; RESP 16; O2SAT 99
[2023-10-27 00:24] LABS: Reflex Troponin-HS? (from REC) Y
[2023-10-27 00:40] LABS: Troponin-I HS 18 pg/mL (3.0-54.0)
[2023-10-27 01:00] VITALS: BP 145/63; PULSE 80; RESP 18; O2SAT 95
[2023-10-27 01:16] VITALS: BP 145/63; PULSE 80; RESP 18; TEMP 36.6; O2SAT 95
== END 2023-10-27 01:17 | disposition home or self-care (01) ==
PROVIDERS: Emergency Provider Emergency Medicine; PCP Family Medicine; Visit Provider Emergency Medicine
DX: R07.9 Chest pain, unspecified (principal); I25.10 Atherosclerotic heart disease of native coronary artery without angina pectoris; R06.09 Other forms of dyspnea; R00.2 Palpitations; I10 Essential (primary) hypertension; E03.9 Hypothyroidism, unspecified; I25.2 Old myocardial infarction; Z79.82 Long term (current) use of aspirin; Z79.02 Long term (current) use of antithrombotics/antiplatelets; Z79.890 Hormone replacement therapy; Z79.899 Other long term (current) drug therapy; Z95.5 Presence of coronary angioplasty implant and graft
CPT/HCPCS: 71045; 80048; 84484; 85025; 93005; 99284; A4216

== ENCOUNTER 2023-11-21 14:52 | Outpatient (RCR) | payer SELFPAY | END 2023-12-14 23:59 | LOC: NS 14:52 | PROVIDERS: PCP Family Medicine; Referring Provider Family Medicine; Visit Provider Family Medicine | DX: Z71.3 Dietary counseling and surveillance (principal); K90.0 Celiac disease; K31.84 Gastroparesis; K86.1 Other chronic pancreatitis; I25.10 Atherosclerotic heart disease of native coronary artery without angina pectoris; I50.9 Heart failure, unspecified | CPT/HCPCS: 97802 ==

== ENCOUNTER → 2023-12-11 | Outpatient (CLI) | payer MEDICARE, SELFPAY ==
[2023-12-11 18:43] LABS: T4 Free Direct 1.21 ng/dL (0.76-1.46); Thyroid Stim Hormone (TSH) 1.97 uIU/mL (0.358-3.74)
[2023-12-13 12:09] LABS: QNTFERON TB Mitogen Value > 10.00 IU/mL (.); QNTFERON TB Nil Value 0.54 IU/mL (.); QNTFERON TB2+ Ag Value 0.24 IU/mL (.); QNTIFERON TB Positive Criteria Negative (Negative)
== END | disposition home or self-care (01) ==
LOC: MTLAB 16:00
PROVIDERS: PCP Family Medicine; Referring Provider Family Medicine; Visit Provider Family Medicine
DX: R82.81 Pyuria (principal); R79.89 Other specified abnormal findings of blood chemistry; E03.9 Hypothyroidism, unspecified; E78.1 Pure hyperglyceridemia
CPT/HCPCS: 36415; 84439; 84443; 84481; 86480; 87086

== ENCOUNTER 2024-01-11 14:50 | Emergency (ER) | payer MEDICARE, SELFPAY ==
[2024-01-11 14:52] VITALS: BP 149/89; PULSE 91; RESP 10; TEMP 36.1; O2SAT 94; BMI 24.2
--- NOTE | 2024-01-11 15:00 | EKG12_ITS ---
Test Reason : CP Blood Pressure : / mmHG Vent. Rate : 086 BPM Atrial Rate : 086 BPM P-R Int : 144 ms QRS Dur : 086 ms QT Int : 388 ms P-R-T Axes : 070 016 031 degrees QTc Int : 464 ms Sinus rhythm with occasional Premature ventricular complexes Nonspecific ST abnormality Abnormal ECG Confirmed by Abdullahi Alarcon ([id number]), sound editor [address]UL ST ([id number]) on 01/14/2024 8:15:17 AM Referred By: LUCAS Confirmed By:Abdullahi Alarcon
--- NOTE | 2024-01-11 15:02 | EDS_ITS ---
HPI History of Present Illness Chief Complaint: Chest Pain Detail of Chief Complaint: Left-sided chest pain with radiation to the back and shoulder Informant: patient and family Onset/Context/Timing Onset: Today (0800) Activity at onset: sudden and rest Timing: Continuous and Waxes and wanes Current Severity: Moderate Maximum Severity: Severe Worsened By: Nothing Relieved By: Nothing Associated Symptoms: Positive for Dyspnea and - (The chest pain is not positional or related to activity); Negative for Nausea, Vomiting, Diaphoresis, Cough, Fever, Lightheadedness, Acid Reflux or Palpitations Narrative Narrative: Patient is an 83-year-old woman with history of coronary disease status post bypass surgery approximately 2 years ago at [facility]. She had a stent placed in her proximal and a stent placed in her mid right coronary artery. She also has history of autoimmune hepatitis, autoimmune pancreatitis as well as Sjogren's disease. She is on Plaquenil. Patient states the pain is located the left side near her left breast with radiation to her back. There was some slight shortness of breath. There is no other associated symptoms. She states it started at 0800. She took a nap. Upon awakening from her nap which was approximately noon the pain was the worst. She stated to her daughter it was a 10. Her daughter states she does not recall her mother ever complain of severe pain. There are no exacerbating, alleviating or precipitating factors. Patient does have history of celiac disease as well as gastroparesis. She denies black or maroon-colored stool. She denies fever, chills night sweats. She denies cough. She denies pleuritic pain. She denies change in pain with movement of her left upper extremity or torso. She denies orthopnea, PND, pedal edema. She denies history of VTE. She has no risk factors for VTE. Prior Similar Symptoms: No Recent Illness/Hospitalization: No CVD Risk Factors: Positive for Hypertension and Hypercholesterolemia PE Risk Factors: Negative for Recent Travel/Surgery, Recent Immobilization, Prior DVT or PE, Cancer or OCP + Smoking + >/=35 TAD Risk Factors: Positive for Hypertension; Negative for Marfan's Syndrome or Family History [facility] Medical History Secondary adrenal insufficiency Loss of hearing Wears glasses History of Clostridium difficile infection Forgetfulness History of steroid therapy Walker as ambulation aid Bladder disease Low iron Fatty liver Easy bruising Dietary restriction Difficulty swallowing Difficulty chewing History of hiatal hernia Colostomy in place Gastric reflux History of edema History of echocardiogram Cardiology follow-up encounter History of CHF (congestive heart failure) History of irregular heartbeat Heart attack (~03/2022) Abdominal pain Bloating symptom Bright red blood per rectum Presence of stent in coronary artery (~04/06/22) Elevated troponin History of non-ST elevation myocardial infarction (NSTEMI) Nonrheumatic aortic (valve) stenosis with insufficiency Nonrheumatic mitral valve stenosis with insufficiency Pulmonary arterial hypertension Aortic insufficiency Severe mitral regurgitation Chronic hyponatremia Idiopathic thrombocytopenia Macular degeneration Lupus Rheumatic fever Hearing loss, right Hearing loss, left Hyperthyroidism Osteopenia Hepatitis Non-smoker Migraines Diverticulitis Adrenal insufficiency NASAL POLYP REMOVED History of left heart catheterization (LHC) (~03/27/22) 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 Tachycardia Heart disease Glaucoma Hypothyroidism Monoclonal gammopathies Hypertension Home Medications ?Medication ?Instructions ?Recorded ?Last Taken ?Type brimonidine 0.15 % eye drops 1 drp EACH EYE BID eye drops 06/23/17 01/11/22 History budesonide 3 mg 3 mg PO DAILY inflammation 06/23/17 01/10/22 History capsule,delayed,extended release hydroxychloroquine 200 mg tablet 200 mg PO DAILYCM lupus 06/23/17 01/10/22 History levothyroxine 75 mcg tablet 75 mcg PO DAILY thyroid 06/23/17 03/13/23 History cholecalciferol (vitamin D3) 50 2,000 unit PO DAILY SUPPLEMENT 07/30/19 01/10/22 History mcg (2,000 unit) capsule [id number] 1 cap PO 4X/DAY enzymes 04/29/21 01/10/22 History 12,000-38,000-60,000 unit capsule,delayed rel (Creon) bimatoprost 0.01 % eye drops 1 drp EACH EYE [facility] 01/11/22 01/11/22 History (Dawn) atorvastatin 40 mg tablet 40 mg PO DAILY 05/04/22 Unknown History clopidogrel 75 mg tablet (Plavix) 75 mg PO DAILY 05/04/22 Unknown History ferrous sulfate 325 mg (65 mg 325 mg PO Q OTHER DAY 05/24/22 Unknown History iron) tablet Lactobacillus acidophilus 10 10,000 mmu cells PO DAILY IMMUNE 07/13/22 Unknown History billion cell capsule (Probiotic) HEALTH aspirin 81 mg tablet,delayed 81 mg PO DAILY 07/13/22 Unknown History release (Adult Low Dose Aspirin) cyanocobalamin (vitamin B-12) 100 100 mcg PO DAILY 07/13/22 Unknown History mcg tablet pantoprazole 40 mg tablet,delayed 20 mg PO Q12H 11/15/22 03/13/23 History release furosemide 40 mg tablet 40 mg PO DAILY fluid pill 11/28/22 Unknown History potassium chloride 10 mEq 10 meq PO DAILY SUPPLEMENT' 11/28/22 Unknown History tablet,extended release(part/cryst) hydrocortisone 10 mg tablet 10 mg PO DAILY #90 tabs 04/26/23 Unknown Rx carvedilol 3.125 mg tablet 3.125 mg PO Q12H 06/12/23 Unknown History carvedilol 6.25 mg tablet 6.25 mg PO Q12H 06/12/23 Unknown History isosorbide mononitrate 30 mg 15 mg PO DAILY 06/12/23 Unknown History tablet,extended release 24 hr Allergy/AdvReac Type Severity Reaction Status Date / Time Penicillins (PCN) Allergy Hives Verified 01/11/24 14:55 Sulfa (Sulfonamide AdvReac Severe Rash Verified 01/11/24 14:55 Antibiotics) griseofulvin (From Priti-PEG AdvReac Intermediate Other Verified 01/11/24 14:55 (ultramicrosize)) azathioprine (From Imuran) AdvReac Vomiting Verified 01/11/24 14:55 colchicine AdvReac Other Verified 01/11/24 14:55 doxycycline AdvReac Rash Verified 01/11/24 14:55 famotidine (From Pepcid) AdvReac Other Verified 01/11/24 14:55 Family History Father Heart disease Pacemaker Mother Heart disease Brother Myocardial infarction Sister Myocardial infarction Heart disease Surgical History H/O colonoscopy History of sinus surgery H/O dilation and curettage Presence of coronary angioplasty implant and graft Status post colon resection (~12/2021) h/o mass removed from hip H/O cataract extraction H/O tubal ligation Hx of cholecystectomy Social History household members: spouse number of children: 5 current occupational status: retired Smoking Status: Never smoker alcohol intake: never substance use type: does not use caffeine: No additional social history: Barbara Sanford-Daughter- Manages Medical care ROS ROS ED Constitutional Constitutional ED: Denies chills, fever(s), subjective, sweats or weight loss Eyes Eyes: Reports none ENT ENT ED: Denies ear pain or rhinorrhea Cardiovascular Cardiovascular: Reports as per HPI; Denies orthopnea or paroxysmal nocturnal dyspnea Respiratory/Chest Respiratory/Chest: Denies cough, dyspnea, dyspnea on exertion, orthopnea or paroxysmal nocturnal dyspnea Gastrointestinal Gastrointestinal: Denies abdominal pain, melena, nausea or vomiting Musculoskeletal Musculoskeletal: Reports back pain; Denies arthralgias, myalgias or neck pain Integumentary Denies rash Neurologic Neurologic: Denies paresthesias or weakness Endocrine Endocrinology: Denies cold intolerance or heat intolerance Hematologic/Lymphatic Hematologic/Lymphatic: Denies easy bleeding or easy bruising EXAM Physical Exam Const Vital Signs: 01/11/24 14:52 01/11/24 14:55 01/11/24 15:08 Temperature 96.9 F L Temperature Source Temporal Pulse Rate 91 Respiratory Rate 10 L Respiratory Effort Normal Respiratory Pattern Normal Blood Pressure 149/89 H Blood Pressure Mean 109 Pulse Ox 94 95 Oxygen Delivery Method Room Air Room Air 01/11/24 16:51 01/11/24 18:00 01/11/24 19:08 Temperature 97.2 F L Temperature Source Pulse Rate 75 75 79 Respiratory Rate 18 16 23 H Respiratory Effort Respiratory Pattern Blood Pressure 124/51 H 105/42 L 120/55 L Blood Pressure Mean 75 63 76 Pulse Ox 99 98 96 Oxygen Delivery Method Room Air Room Air Positive well nourished and well developed General Appearance ED: well developed and NAD; Negative for pallor HEENT Reports moist mucous membranes HEENT Narrative: Ears are normal. Nares are patent. Posterior pharynx is normal. normocephalic and atraumatic Eyes PERRL and EOMs intact bilaterally Eyes Narrative: Patient has slight exophthalmos's. There is cholesterol deposits in the upper eyelid. There is also periorbital edema. Neck no lymphadenopathy, supple and no JVD Chest Wall Negative for inspection of chest normal Chest Narrative: There are bruising superior lateral anterior chest. This does not reproduce the pain with palpation. There are no skin lesions to suggest herpes varicella- zoster. Resp normal respiratory effort and clear to auscultation bilaterally Cardio regular rate, regular rhythm, S1 normal heart sound and S2 normal heart sound; Negative for no murmurs GI normal to inspection, nondistended, normoactive bowel sounds, soft to palpation and non-distended; Negative for hepatosplenomegaly GI Narrative: Tenderness to deep palpation left upper quadrant epigastric area. Back/Spine no CVA tenderness Extremity normal to inspection General Extremety ED: Negative for edema General Extremity: Negative for edema Neuro oriented x3 and CN's II-XII intact bilaterally Sensorium / Orientation: awake and alert Psych mental status grossly normal Skin no rashes or lesions noted and No no wounds General Skin Exam: Negative for jaundice or pallor MDM MDM MDM Narrative Medical decision making narrative: The determined cardiac versus noncardiac etiology. Noncardiac etiology may represent exacerbation of her autoimmune pancreatitis, this may represent GERD, pulmonary Salazar is also consideration. Doubt biliary etiology. Workup included EKG, chest x-ray and appropriate blood work including troponin and 2- hour troponin. Lab Data Attestation: I reviewed the patient's lab results. Lab results narrative: Since CBC is unremarkable. Electrolyte panel is unremarkable. First troponin is 19 which is normal and second is 16 with a delta of -3. Lipase is normal. Liver profile was normal. These were obtained because of history of autoimmune hepatitis and autoimmune pancreatitis. D-dimer was not obtained since she has autoimmune disorder and may be elevated and represent a false positive. Patient's Wells score is less than 3. Labs: Laboratory Results - last 24 hr 01/11/24 01/11/24 15:00 17:10 WBC 10.8 RBC 4.48 Hgb 13.9 Hct 42.5 MCV 94.9 MCH 31.0 MCHC 32.7 RDW Std Deviation 56.8 H RDW Coeff of Samreen 16.3 H Plt Count 144 L MPV 10.3 Immature Gran % (Auto) 0.700 Neut % (Auto) 70.7 H Lymph % (Auto) 20.1 [place] % (Auto) 7.7 Eos % (Auto) 0.4 Baso % (Auto) 0.4 Absolute Neuts (auto) 7.6 Absolute Lymphs (auto) 2.17 Nucleated RBC % 0 Sodium 133 L Potassium 3.8 Chloride 98 Carbon Dioxide 26.0 Anion Gap 9 BUN 18 Creatinine 1.02 Estim Creat Clear Calc 30.02 Est GFR (MDRD) Af Amer 66 Est GFR (MDRD) Non-Af 55 L BUN/Creatinine Ratio 17.6 Glucose 154 H Calcium 9.5 Total Bilirubin 1.00 Direct Bilirubin 0.26 AST 20 ALT 38 Alkaline Phosphatase 74 Troponin I High Sens 19 16 Total Protein 7.8 Albumin 3.6 Globulin 4.2 Lipase 21 Radiography Chest X-Ray - ED: 1 View and Read by ED Physician (Independently reviewed interpreted by me at 1525 as negative for acute process. There is evidence of cardiomegaly. Cardiac silhouette is normal. Lung parenchyma is unremarkable. [place] is normal. Osseous structures are unremarkable.) Diagnostic Testing: Clinical Impression(s) from Imaging Studies Chest X-Ray 01/11/24 15:15 IMPRESSION: No acute cardiopulmonary process identified. Cardiomegaly. Electronically Signed: Lacy Dorado MD at 15:29 EDT , EKG Initial EKG: Attestation: I personally reviewed and interpreted this EKG as follows: Interpretation: Sinus Rhythm (Normal sinus rhythm rate 86 with occasional premature ventricular beats noted. GA interval is 144 ms per cures duration 66 ms. QT duration 188 ms. [place] is normal. Computer is reading nonspecific ST-T wave changes which in actuality is artifact. In my opinion other than the PVCs his EKG is levar) Treatment and Re-Evaluation :: Patient and family were informed of all results and explained why a D-dimer was not obtained. Discharge Plan Triage Chief Complaint: Chest Pain ED Provider: Jaguar Goodson Dx/Rx/DC Orders Clinical Impression: Left-sided chest pain, Celiac disease, Gastroparesis, Atherosclerotic heart disease of [place] coronary artery without angina pectoris, History of autoimmune disorder Instructions: ED Chest Pain, Noncardiac, ED Chest Pain, Uncertain Cause Prescriptions: No Action ferrous sulfate 325 mg (65 mg iron) tablet 325 mg PO Q OTHER DAY clopidogrel [Plavix] 75 mg tablet 75 mg PO DAILY atorvastatin 40 mg tablet 40 mg PO DAILY aspirin [Adult Low Dose Aspirin] 81 mg tablet,delayed release (DR/EC) 81 mg PO DAILY cyanocobalamin (vitamin B-12) 100 mcg tablet 100 mcg PO DAILY pantoprazole 40 mg tablet,delayed release (DR/EC) 20 mg PO Q12H levothyroxine 75 MCG tablet 75 mcg PO DAILY Rx Instructions: name brand synthroid budesonide 3 MG capsule,delayed,extend.release 3 mg PO DAILY hydroxychloroquine 200 MG tablet 200 mg PO DAILYCM brimonidine 1 DROP bottle 1 drp EACH EYE BID cholecalciferol (vitamin D3) 2,000 UNIT capsule 2,000 unit PO DAILY Creon 12,000-38,000 -60,000 unit capsule,delayed release(DR/EC) 1 cap PO 4X/DAY Patient Comments: with three meals and one snack Lumigan 0.01 % Drops 1 drp EACH EYE QHS Probiotic 10 billion cell capsule 10,000 mmu cells PO DAILY furosemide 40 mg tablet 40 mg PO DAILY carvedilol 3.125 mg tablet 3.125 mg PO Q12H carvedilol 6.25 mg tablet 6.25 mg PO Q12H Patient Comments: TAKE 1 TABLET BY MOUTH TWICE A DAY WITH MEALS isosorbide mononitrate 30 mg tablet extended release 24 hr 15 mg PO DAILY Patient Comments: TAKE ONE-HALF TABLET(15 MG) BY MOUTH DAILY EVERY MORNING. potassium chloride 10 mEq tablet,ER particles/crystals 10 meq PO DAILY hydrocortisone 10 mg tablet 10 mg PO DAILY Qty: 90 1RF Primary Care Provider: Ashvin Cardenas Referrals: Ashvin Cardenas MD [Primary Care Provider] - As Needed Activity Restrictions/Additional Instructions: Keep appointment with radiographic technologist scheduled for January 21. Print Language: Kinyarwanda Disposition Disposition: Home, Self Care Discharge Date/Time: 01/11/24 19:09
[2024-01-11 15:08] VITALS: O2SAT 95
[2024-01-11] MEDS: Aspirin 81 MG TAB.CHEW 324 MG PO (15:12)
[2024-01-11 15:14] LABS: Absolute Lymphocyte Count 2.17 X10^3/uL (0.83-4.51); Absolute Neutrophil Count 7.6 X10^3/uL (2.0-7.7); Basophil# 0.04 X10^3/uL; Basophil% 0.4 % (0-1); Eosinophil# 0.04 X10^3/uL; Eosinophils% 0.4 % (0-5); Hematocrit 42.5 % (37-47); Hemoglobin 13.9 g/dL (12.0-15.0); Lymphocyte # 2.17 X10^3/ul (0.83-4.51); Lymphocyte % 20.1 % (19-41); Mean Corp Hgb Conc 32.7 g/dL (32-36); Mean Corpuscular Volume 94.9 fL (81-99); Mean Platelet Vol. 10.3 fl (6.2-12.0); Monocyte# 0.83 X10^3/uL; Monocyte% 7.7 % (0-10); NRBC Flagged by Analyzer 0 % (0-5); Neutrophil # 7.63 X10^3/uL (2.7-7.7); Neutrophil % 70.7 % (47-70); Platelet Count 144 K/mm3 (150-450); RBC Distribution Width CV 16.3 % (11.6-14.6); RBC Distribution Width SD 56.8 fl (35.1-43.9); Red Blood Count 4.48 M/mm3 (4.2-5.4); White Blood Count 10.8 K/mm3 (4.4-11.0)
--- NOTE | 2024-01-11 15:15 | RAD_ITS ---
HISTORY: chest pain. TECHNIQUE: XR Chest 1 View. COMPARISON: 10/26/2023. FINDINGS: CARDIOMEDIASTINAL BORDERS: Cardiac silhouette again moderately enlarged. Mediastinal contour unchanged with calcification of the aorta. LUNGS: Chronic coarse interstitial markings without focal consolidation. PLEURA: No pleural effusion or pneumothorax seen. OSSEOUS STRUCTURES: Degenerative change. RAD/Chest 1 View (Portable) IMPRESSION: No acute cardiopulmonary process identified. Cardiomegaly. Electronically Signed: Lacy Dorado MD at 15:29 EDT ,
[2024-01-11 15:45] LABS: AST(SGOT) 20 U/L (15-37); Alanine Aminotransfer ALT/SGPT 38 U/L (13-56); Albumin, Serum 3.6 g/dL (3.2-5.0); Alkaline Phosphatase 74 U/L (45-117); Anion Gap 9 (5-15); BUN 18 mg/dL (7-18); BUN/Creat Ratio 17.6 RATIO (10-20); Bilirubin, Direct 0.26 mg/dL (0.00-0.30); Calcium,Total 9.5 mg/dL (8.5-10.1); Chloride 98 mmol/L (98-107); Creatinine, Serum 1.02 mg/dL (0.55-1.02); EST Glomerular Filtration Rate 55 mL/min (>60); Est Glom Filt Rate - Afr Amer 66 mL/min (>60); Estimated Creatinine Clearance 30.02 ml/min; Globulin 4.2 g/dL (2.2-4.2); Glucose 154 mg/dL (74-106); Lipase 21 U/L (13-75); Potassium 3.8 mmol/L (3.5-5.1); Protein, Total 7.8 g/dL (6.4-8.2); Sodium Level 133 mmol/L (136-145); Troponin-I HS (w/2H Reflex) 19 pg/mL (3.0-54.0)
[2024-01-11 16:51] VITALS: BP 124/51; PULSE 75; RESP 18; O2SAT 99
[2024-01-11 17:08] LABS: Reflex Troponin-HS? (from REC) Y
[2024-01-11 17:44] LABS: Troponin-I HS 16 pg/mL (3.0-54.0)
[2024-01-11 18:00] VITALS: BP 105/42; PULSE 75; RESP 16; O2SAT 98
[2024-01-11 19:08] VITALS: BP 120/55; PULSE 79; RESP 23; TEMP 36.2; O2SAT 96
== END 2024-01-11 19:09 | disposition home or self-care (01) ==
PROVIDERS: Emergency Provider Emergency Medicine; PCP Family Medicine; Visit Provider Emergency Medicine
DX: R07.9 Chest pain, unspecified (principal); K75.4 Autoimmune hepatitis; I25.10 Atherosclerotic heart disease of native coronary artery without angina pectoris; R06.02 Shortness of breath; I10 Essential (primary) hypertension; M35.00 Sjogren syndrome, unspecified; E78.00 Pure hypercholesterolemia, unspecified; E03.9 Hypothyroidism, unspecified; K31.84 Gastroparesis; K90.0 Celiac disease; Z79.02 Long term (current) use of antithrombotics/antiplatelets; Z79.82 Long term (current) use of aspirin; Z79.890 Hormone replacement therapy; Z79.899 Other long term (current) drug therapy; Z95.1 Presence of aortocoronary bypass graft; Z95.5 Presence of coronary angioplasty implant and graft
CPT/HCPCS: 71045; 80048; 80076; 83690; 84484; 85025; 93005; 99284; A4216

== ENCOUNTER → 2024-02-05 | Outpatient (CLI) | payer MEDICARE, SELFPAY ==
[2024-02-05 18:05] LABS: Anion Gap 11 (5-15); BUN 21 mg/dL (7-18); BUN/Creat Ratio 20.6 RATIO (10-20); Calcium,Total 9.1 mg/dL (8.5-10.1); Chloride 98 mmol/L (98-107); Creatinine, Serum 1.02 mg/dL (0.55-1.02); EST Glomerular Filtration Rate 55 mL/min (>60); Est Glom Filt Rate - Afr Amer 66 mL/min (>60); Glucose 146 mg/dL (74-106); Potassium 3.9 mmol/L (3.5-5.1); Sodium Level 135 mmol/L (136-145)
== END | disposition home or self-care (01) ==
LOC: MTLAB 16:08
PROVIDERS: PCP Family Medicine
DX: R60.0 Localized edema (principal)
CPT/HCPCS: 36415; 80048

== ENCOUNTER 2024-03-06 10:52 | Emergency (ER) | payer MEDICARE, SELFPAY ==
[2024-03-06] VITALS (11 sets, daily range): BP systolic 95–122; BP diastolic 44–66; PULSE 80–102; RESP 12–35; TEMP 37.2–38.1; O2SAT 91–96; BMI 24.4
--- NOTE | 2024-03-06 11:15 | EX.ED.DYSGE1 ---
HPI History of Present Illness Chief Complaint: Fever Narrative Narrative: Patient is a 84-year-old female with past medical history of CAD status post stents on Plavix, easy bruising, CHF, NSTEMI, aortic insufficiency, mitral rotation, adrenal insufficiency, hypothyroidism, hypertension, colostomy who presented to the emergency department with a chief complaint of fever and not feeling well. According to family at bedside for the past few days now she has not been feeling well has had a mild cough and noted that she had a fever. They state that they followed up with her primary care physician in the outpatient setting and they advised to bring her to the emergency department if she developed fever of 103. Cording the family she developed a fever of 102 last night and felt worse prompting them to come here for the evaluation management. According to family while in the office she was tested for COVID, flu and RSV was noted to be negative. They noted that she has had also raspy voice with this cough. PFSH PENDING SALE TO [facility] Medical History Secondary adrenal insufficiency Loss of hearing Wears glasses History of Clostridium difficile infection Forgetfulness History of steroid therapy Walker as ambulation aid Bladder disease Low iron Fatty liver Easy bruising Dietary restriction Difficulty swallowing Difficulty chewing History of hiatal hernia Colostomy in place Gastric reflux History of edema History of echocardiogram Cardiology follow-up encounter History of CHF (congestive heart failure) History of irregular heartbeat Heart attack (~03/2022) Abdominal pain Bloating symptom Bright red blood per rectum Presence of stent in coronary artery (~04/06/22) Elevated troponin History of non-ST elevation myocardial infarction (NSTEMI) Nonrheumatic aortic (valve) stenosis with insufficiency Nonrheumatic mitral valve stenosis with insufficiency Pulmonary arterial hypertension Aortic insufficiency Severe mitral regurgitation Chronic hyponatremia Idiopathic thrombocytopenia Macular degeneration Lupus Rheumatic fever Hearing loss, right Hearing loss, left Hyperthyroidism Osteopenia Hepatitis Non-smoker Migraines Diverticulitis Adrenal insufficiency NASAL POLYP REMOVED History of left heart catheterization (LHC) (~03/27/22) 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 Tachycardia Heart disease Glaucoma Hypothyroidism Monoclonal gammopathies Hypertension Home Medications ?Medication ?Instructions ?Recorded ?Last Taken ?Type brimonidine 0.15 % eye drops 1 drp EACH EYE BID eye drops 06/23/17 01/11/22 History hydroxychloroquine 200 mg tablet 200 mg PO DAILYCM lupus 06/23/17 01/10/22 History levothyroxine 75 mcg tablet 75 mcg PO DAILY thyroid 06/23/17 03/13/23 History cholecalciferol (vitamin D3) 50 2,000 unit PO DAILY SUPPLEMENT 07/30/19 01/10/22 History mcg (2,000 unit) capsule [id number] 1 cap PO 4X/DAY enzymes 04/29/21 01/10/22 History 12,000-38,000-60,000 unit capsule,delayed rel (Creon) bimatoprost 0.01 % eye drops 1 drp EACH EYE [facility] 01/11/22 01/11/22 History (Lumigan) atorvastatin 40 mg tablet 40 mg PO DAILY 05/04/22 Unknown History clopidogrel 75 mg tablet (Plavix) 75 mg PO DAILY 05/04/22 Unknown History ferrous sulfate 325 mg (65 mg 325 mg PO Q OTHER DAY 05/24/22 Unknown History iron) tablet Lactobacillus acidophilus 10 10,000 mmu cells PO DAILY IMMUNE 07/13/22 Unknown History billion cell capsule (Probiotic) HEALTH aspirin 81 mg tablet,delayed 81 mg PO DAILY 07/13/22 Unknown History release (Adult Low Dose Aspirin) cyanocobalamin (vitamin B-12) 100 100 mcg PO DAILY 07/13/22 Unknown History mcg tablet pantoprazole 40 mg tablet,delayed 20 mg PO Q12H 11/15/22 03/13/23 History release furosemide 40 mg tablet 40 mg PO DAILY fluid pill 11/28/22 Unknown History potassium chloride 10 mEq 10 meq PO DAILY SUPPLEMENT' 11/28/22 Unknown History tablet,extended release(part/cryst) hydrocortisone 10 mg tablet 10 mg PO DAILY #90 tabs 04/26/23 Unknown Rx carvedilol 3.125 mg tablet 3.125 mg PO Q12H 06/12/23 Unknown History carvedilol 6.25 mg tablet 6.25 mg PO Q12H 06/12/23 Unknown History isosorbide mononitrate 30 mg 15 mg PO DAILY 06/12/23 Unknown History tablet,extended release 24 hr budesonide 3 mg 3 mg PO DAILY inflammation #30 ea 01/15/24 Unknown Rx capsule,delayed,extended release Allergy/AdvReac Type Severity Reaction Status Date / Time Penicillins (PCN) Allergy Hives Verified 03/06/24 10:52 Sulfa (Sulfonamide AdvReac Severe Rash Verified 03/06/24 10:52 Antibiotics) griseofulvin (From Priti-PEG AdvReac Intermediate Other Verified 03/06/24 10:52 (ultramicrosize)) azathioprine (From Imuran) AdvReac Vomiting Verified 03/06/24 10:52 colchicine AdvReac Other Verified 03/06/24 10:52 doxycycline AdvReac Rash Verified 03/06/24 10:52 famotidine (From Pepcid) AdvReac Other Verified 03/06/24 10:52 Family History Father Heart disease Pacemaker Mother Heart disease Brother Myocardial infarction Sister Myocardial infarction Heart disease Surgical History H/O colonoscopy History of sinus surgery H/O dilation and curettage Presence of coronary angioplasty implant and graft Status post colon resection (~12/2021) h/o mass removed from hip H/O cataract extraction H/O tubal ligation Hx of cholecystectomy Social History household members: spouse number of children: 5 current occupational status: retired Smoking Status: Never smoker alcohol intake: never substance use type: does not use caffeine: No additional social history: Barbara Sanford-Daughter- Manages Medical care ROS ROS ED ROS Narrative Constitutional: Complains of fever as noted above denies headache, lightheadedness, dizziness Eyes: Denies double vision blurry vision changes vision Cardiovascular: Denies chest pain or palpitations Respiratory: Complains of cough as noted above denies wheezing Abdomen: Denies abdominal pain nausea vomit diarrhea. States that she has adequate colostomy output not increased nor decreased : Denies any urinary symptoms Neurological: Denies any numbness, weakness, tingling Musculoskeletal: Denies back pain Skin: Denies any rashes or lesions. EXAM Physical Exam Narrative Exam Narrative: General: Patient lying in bed did appear to not be feeling well overall no acute distress Head: Atraumatic, normocephalic Eyes: PERRL bilaterally, EOMI bilateral, no conjunctival injection noted Neck: Soft, supple, trachea midline Cardiovascular: Regular rate and rhythm no murmurs gallops rubs noted Respiratory: Clear to auscultation bilaterally Abdomen: Soft, nondistended, no tenderness palpation, bowel sounds present x 4 Extremities: +4/5 strength noted in the bilateral upper and lower extremities, no pedal edema noted on exam Neurological: Patient following commands and that she was at [facility] there is 2023 Skin: Patient has several areas of scattered ecchymosis throughout her body and family states that this is her baseline and she has not had any trauma Const Vital Signs: 03/06/24 10:52 03/06/24 10:55 03/06/24 11:24 Temperature 99.3 F H 99.3 F H Temperature Source Temporal Temporal Pulse Rate 80 83 Respiratory Rate 12 20 H Respiratory Effort Respiratory Pattern Blood Pressure 104/44 L 106/48 L Blood Pressure Mean 64 67 Pulse Ox 93 92 94 Oxygen Delivery Method Room Air Room Air Nasal Cannula Oxygen Flow Rate (L/min) 2 03/06/24 11:31 03/06/24 11:55 03/06/24 13:00 Temperature 99.3 F H 98.9 F Temperature Source Oral Oral Pulse Rate 82 84 Respiratory Rate 23 H 30 H Respiratory Effort Normal Respiratory Pattern Normal Blood Pressure 101/45 L 95/45 L Blood Pressure Mean 63 61 Pulse Ox 95 96 Oxygen Delivery Method Nasal Cannula Nasal Cannula Oxygen Flow Rate (L/min) 2 2 03/06/24 13:59 03/06/24 14:00 03/06/24 15:00 Temperature Temperature Source Pulse Rate 89 96 Respiratory Rate 23 H 26 H Respiratory Effort Respiratory Pattern Blood Pressure 117/51 L 117/44 L Blood Pressure Mean 73 68 Pulse Ox 94 92 Oxygen Delivery Method Nasal Cannula Nasal Cannula Nasal Cannula Oxygen Flow Rate (L/min) 2 2 2 03/06/24 16:00 03/06/24 17:00 03/06/24 18:12 Temperature 100.6 F H Temperature Source Oral Pulse Rate 90 99 102 H Respiratory Rate 30 H 29 H 35 H Respiratory Effort Respiratory Pattern Blood Pressure 119/51 L 109/59 L 113/66 Blood Pressure Mean 73 75 81 Pulse Ox 93 92 91 Oxygen Delivery Method Nasal Cannula Nasal Cannula Nasal Cannula Oxygen Flow Rate (L/min) 2 2 2 03/06/24 18:51 Temperature 100.6 F H Temperature Source Pulse Rate 102 H Respiratory Rate 25 H Respiratory Effort Respiratory Pattern Blood Pressure 122/53 H Blood Pressure Mean 76 Pulse Ox 92 Oxygen Delivery Method Oxygen Flow Rate (L/min) MDM MDM MDM Narrative Medical decision making narrative: Patient is a 84-year-old female who presented to the emergency department with chief complaint of fever, cough not feeling well for past several days. Patient will have a workup performed here on the differential diagnose includes but not limited to pneumonia, ACS, upper respiratory infection second viral etiology, UTI. Once workup is obtained reviewed she will be reevaluated. Patient does have a history of congestive heart failure therefore she will be placed on 75 cc of IV fluids per hour. Patient CBC reviewed showed no evidence of leukocytosis white blood count normal at 10.6, hemoglobin stable 12.7, platelet count was 99. Patient's INR 1.3, PT of 15.7. Patient sodium was noted to be 132, potassium normal 3.7, creatinine normal at 0.92. Patient lactic acid normal at 1.5, AST and ALT were 3742 respectively. Patient's troponin was elevated 2546 with a delta troponin obtained at 3875. I did discuss case with the on-call plumbing foreman here Dr. Acosta who is recommending medical management after reviewing her records with heparin and aspirin which were ordered. Patient's proBNP elevated 843. Patient's urinalysis did not reveal any evidence infection. Patient chest x-ray was reviewed and showed no acute cardiopulmonary processes. Although upon my review in comparison to a previous chest x-ray does have blunting of the costophrenic angles bilaterally. 1 and discussed the results with the patient's for members at bedside and they would prefer to go to [facility]. I called and discussed the case with her plumbing foreman Dr. Sky who states call the transfer center and he will notify his partner and they will accept the patient to the acute coronary service. Called and discussed case with the transfer center who then discussed case with the cardiology service and accepted the patient on behalf of of the patient's plumbing foreman Dr. Sky. Patient was notified and is agreeable with this plan all question concerns were answered at bedside. While awaiting transfer I obtained a third troponin which was noted to be elevated to 4912. Patient's EKGs were reviewed and showed sinus rhythm with a rate of 83 bpm with frequent PVCs noted which compared to her previous EKG she had PVCs noted on this as well. Patient was ultimately transferred to [facility] for further evaluation management. Critical care time 70 minutes Lab Data Labs: Laboratory Results - last 24 hr 03/06/24 03/06/24 03/06/24 11:11 11:19 13:27 WBC 10.6 RBC 4.10 L Hgb 12.7 Hct 39.1 MCV 95.4 MCH 31.0 MCHC 32.5 RDW Std Deviation 57.8 H RDW Coeff of Samreen 16.6 H Plt Count 99 L MPV 10.3 Immature Gran % (Auto) 0.800 Neut % (Auto) 78.8 H Lymph % (Auto) 12.5 L [place] % (Auto) 6.9 Eos % (Auto) 0.5 Baso % (Auto) 0.5 Absolute Neuts (auto) 8.4 H Absolute Lymphs (auto) 1.33 Nucleated RBC % 0 Platelet Estimate SLT DEC Plt Morphology Comment LARGE PT 15.7 H INR 1.3 APTT 28.2 Sodium 132 L Potassium 3.7 Chloride 100 Carbon Dioxide 23.0 Anion Gap 9 BUN 12 Creatinine 0.92 Estim Creat Clear Calc 32.70 Est GFR (MDRD) Af Amer 75 Est GFR (MDRD) Non-Af 62 BUN/Creatinine Ratio 13.1 Glucose 101 Lactic Acid 1.5 Calcium 8.7 Total Bilirubin 2.20 H AST 37 ALT 42 Alkaline Phosphatase 59 Troponin I High Sens 2546 H* 3875 H* B-Natriuretic Peptide 843.5 H Total Protein 7.0 Albumin 3.0 L Globulin 4.0 Albumin/Globulin Ratio 0.8 L Urine Color Urine Clarity Urine pH Ur Specific [place] Urine Protein Urine Glucose (UA) Urine Ketones Urine Occult Blood Urine Nitrite Urine Bilirubin Urine Urobilinogen Ur Leukocyte Esterase Urine RBC Urine WBC Ur Squamous Epith Cells Urine Bacteria Urine Mucus 03/06/24 03/06/24 15:49 17:21 WBC RBC Hgb Hct MCV MCH MCHC RDW Std Deviation RDW Coeff of Samreen Plt Count MPV Immature Gran % (Auto) Neut % (Auto) Lymph % (Auto) [place] % (Auto) Eos % (Auto) Baso % (Auto) Absolute Neuts (auto) Absolute Lymphs (auto) Nucleated RBC % Platelet Estimate Plt Morphology Comment PT INR APTT Sodium Potassium Chloride Carbon Dioxide Anion Gap BUN Creatinine Estim Creat Clear Calc Est GFR (MDRD) Af Amer Est GFR (MDRD) Non-Af BUN/Creatinine Ratio Glucose Lactic Acid Calcium Total Bilirubin AST ALT Alkaline Phosphatase Troponin I High Sens 4912 H* B-Natriuretic Peptide Total Protein Albumin Globulin Albumin/Globulin Ratio Urine Color Yellow Urine Clarity Clear Urine pH 6.5 Ur Specific [place] 1.010 Urine Protein Negative Urine Glucose (UA) Normal Urine Ketones 5 H Urine Occult Blood Negative Urine Nitrite Negative Urine Bilirubin Negative Urine Urobilinogen Normal Ur Leukocyte Esterase Negative Urine RBC 0 SEEN Urine WBC 0 SEEN Ur Squamous Epith Cells 0 SEEN Urine Bacteria 0 SEEN Urine Mucus 0 SEEN Radiography Diagnostic Testing: Clinical Impression(s) from Imaging Studies Chest X-Ray 03/06/24 11:45 IMPRESSION: No suspicious acute cardiopulmonary pathology and no significant interval change. Electronically Signed: Rupert Sanchez MD at 14:27 EDT , Discharge Plan Triage Chief Complaint: Fever ED Provider: Phil Galvan Dx/Rx/DC Orders Clinical Impression: Non-ST elevation LA (NSTEMI) Prescriptions: No Action ferrous sulfate 325 mg (65 mg iron) tablet 325 mg PO Q OTHER DAY clopidogrel [Plavix] 75 mg tablet 75 mg PO DAILY atorvastatin 40 mg tablet 40 mg PO DAILY aspirin [Adult Low Dose Aspirin] 81 mg tablet,delayed release (DR/EC) 81 mg PO DAILY cyanocobalamin (vitamin B-12) 100 mcg tablet 100 mcg PO DAILY pantoprazole 40 mg tablet,delayed release (DR/EC) 20 mg PO Q12H levothyroxine 75 MCG tablet 75 mcg PO DAILY Rx Instructions: name brand synthroid hydroxychloroquine 200 MG tablet 200 mg PO DAILYCM brimonidine 1 DROP bottle 1 drp EACH EYE BID cholecalciferol (vitamin D3) 2,000 UNIT capsule 2,000 unit PO DAILY Creon 12,000-38,000 -60,000 unit capsule,delayed release(DR/EC) 1 cap PO 4X/DAY Patient Comments: with three meals and one snack Lumigan 0.01 % Drops 1 drp EACH EYE QHS Probiotic 10 billion cell capsule 10,000 mmu cells PO DAILY furosemide 40 mg tablet 40 mg PO DAILY carvedilol 3.125 mg tablet 3.125 mg PO Q12H carvedilol 6.25 mg tablet 6.25 mg PO Q12H Patient Comments: TAKE 1 TABLET BY MOUTH TWICE A DAY WITH MEALS isosorbide mononitrate 30 mg tablet extended release 24 hr 15 mg PO DAILY Patient Comments: TAKE ONE-HALF TABLET(15 MG) BY MOUTH DAILY EVERY MORNING. potassium chloride 10 mEq tablet,ER particles/crystals 10 meq PO DAILY hydrocortisone 10 mg tablet 10 mg PO DAILY Qty: 90 1RF budesonide 3 mg capsule,delayed,extend.release 3 mg PO DAILY Qty: 30 2RF Primary Care Provider: Ashvin Cardenas Referrals: Ashvin Cardenas MD [Primary Care Provider] - Print Language: Georgian Disposition Disposition: Acute Care Hospital Discharge Location: [facility] Discharge Date/Time: 03/06/24 18:54
[2024-03-06 11:35] LABS: Absolute Lymphocyte Count 1.33 X10^3/uL (0.83-4.51); Absolute Neutrophil Count 8.4 X10^3/uL (2.0-7.7); Basophil# 0.05 X10^3/uL; Basophil% 0.5 % (0-1); Eosinophil# 0.05 X10^3/uL; Eosinophils% 0.5 % (0-5); Hematocrit 39.1 % (37-47); Hemoglobin 12.7 g/dL (12.0-15.0); Lymphocyte # 1.33 X10^3/ul (0.83-4.51); Lymphocyte % 12.5 % (19-41); Mean Corp Hgb Conc 32.5 g/dL (32-36); Mean Corpuscular Volume 95.4 fL (81-99); Mean Platelet Vol. 10.3 fl (6.2-12.0); Monocyte# 0.73 X10^3/uL; Monocyte% 6.9 % (0-10); NRBC Flagged by Analyzer 0 % (0-5); Neutrophil % 78.8 % (47-70); POSITIVE COUNT YES; Platelet Count 99 K/mm3 (150-450); RBC Distribution Width CV 16.6 % (11.6-14.6); RBC Distribution Width SD 57.8 fl (35.1-43.9); White Blood Count 10.6 K/mm3 (4.4-11.0)
[2024-03-06 11:40] LABS: Differential Indicated SCAN CRITERIA MET
[2024-03-06 11:44] LABS: International Normalized Ratio 1.3; Partial Thromboplast Time 28.2 Seconds (24.1-36.2); Prothrombin Time (Protime)PT. 15.7 SECONDS (11.7-14.9)
--- NOTE | 2024-03-06 11:45 | RAD_ITS ---
EXAM: XR CHEST, 2 VIEWS CLINICAL INDICATION: Cough. TECHNIQUE: Frontal and lateral views of the chest. COMPARISON: 01/11/2024. FINDINGS: LUNGS AND PLEURAL SPACES: Unremarkable. No consolidation or edema. No pneumothorax. No effusion. HEART: Cardiomegaly is unchanged. MEDIASTINUM: Central airways and mediastinal contour are unremarkable. BONES/JOINTS: Unremarkable. No acute fracture. SOFT TISSUES: Unremarkable. RAD/Chest PA and Lateral IMPRESSION: No suspicious acute cardiopulmonary pathology and no significant interval change. Electronically Signed: Rupert Sanchez MD at 14:27 EDT ,
[2024-03-06] MEDS: 0.9% Normal Saline (1000mL) 1,000 ML 75 ML IV (11:49)
[2024-03-06 12:11] LABS: Platelet Morphology LARGE
[2024-03-06 12:12] LABS: ALB/GLOB Ratio 0.8 RATIO (0.9-2.4); AST(SGOT) 37 U/L (15-37); Alanine Aminotransfer ALT/SGPT 42 U/L (13-56); Alkaline Phosphatase 59 U/L (45-117); Anion Gap 9 (5-15); BUN 12 mg/dL (7-18); BUN/Creat Ratio 13.1 RATIO (10-20); Calcium,Total 8.7 mg/dL (8.5-10.1); Chloride 100 mmol/L (98-107); Creatinine, Serum 0.92 mg/dL (0.55-1.02); EST Glomerular Filtration Rate 62 mL/min (>60); Est Glom Filt Rate - Afr Amer 75 mL/min (>60); Glucose 101 mg/dL (74-106); Potassium 3.7 mmol/L (3.5-5.1); Sodium Level 132 mmol/L (136-145); Troponin-I HS 2546 pg/mL (3.0-54.0)
[2024-03-06 12:12] LABS: Platelet Estimate SLT DEC (ADEQ)
[2024-03-06 12:19] LABS: Lactic Acid 1.5 mmol/L (0.4-1.9)
[2024-03-06 12:41] LABS: BNP,B-Type NATRIURETIC PEPTIDE 843.5 pg/mL (0-100)
[2024-03-06 14:16] LABS: Troponin-I HS 3875 pg/mL (3.0-54.0)
[2024-03-06] MEDS: Heparin Injection (Vial) 5,000 UNIT/ML VIAL 3500 UNIT IV (14:24)
[2024-03-06] MEDS: Aspirin 325 MG Tablet PO (14:24)
[2024-03-06] MEDS: HEPARIN/D5w 25,000 UNITS 25,000 UNITS/250 ML IV.SOLN. 7 UNITS CONT INF (14:26)
[2024-03-06] MEDS: Ondansetron 4 MG/2 ML Vial IV (15:12)
[2024-03-06 15:55] LABS: Bacteria 0 SEEN /hpf (None Seen); Mucous, Urine 0 SEEN /hpf (<or=2+); Red Blood Cells-Urine 0 SEEN /hpf (0-5); Squamous Epithelial Cells - UA 0 SEEN /hpf (5-10); White Blood Cells 0 SEEN /hpf (0-5)
[2024-03-06 16:02] LABS: Color, Urine Yellow (Yellow); Glucose, Dipstick Normal (Normal); Ketone-Dipstick 5 mg/dl (Negative); Leukocyte Esterase-Dipstick Negative /ul (Negative); Nitrite-Dipstick Negative (Negative); Occult Blood-Urine Negative /ul (Negative); Protein-Dipstick Negative (Negative); Urine Bilirubin Dipstick Negative (Negative); Urine Clarity Clear (Clear); Urine Urobilinogen Normal (Normal); Urine pH 6.5 (5.0 - 8.0)
[2024-03-06] MEDS: Acetaminophen 500 MG Tablet 1000 MG PO (18:25)
[2024-03-06 18:30] LABS: Troponin-I HS 4912 pg/mL (3.0-54.0)
== END 2024-03-06 18:54 | disposition short-term general hospital (02) ==
LOC: ED 12:33
PROVIDERS: Emergency Provider Emergency Medicine; PCP Family Medicine; Visit Provider Emergency Medicine
DX: I21.4 Non-ST elevation (NSTEMI) myocardial infarction (principal); Z93.3 Colostomy status; I11.0 Hypertensive heart disease with heart failure; I50.9 Heart failure, unspecified; R05.9 Cough, unspecified; E03.9 Hypothyroidism, unspecified; E87.1 Hypo-osmolality and hyponatremia; Z11.52 Encounter for screening for COVID-19; I08.0 Rheumatic disorders of both mitral and aortic valves; I25.10 Atherosclerotic heart disease of native coronary artery without angina pectoris; I25.2 Old myocardial infarction; Z79.82 Long term (current) use of aspirin; Z79.02 Long term (current) use of antithrombotics/antiplatelets; Z79.890 Hormone replacement therapy; Z79.899 Other long term (current) drug therapy; Z95.5 Presence of coronary angioplasty implant and graft
CPT/HCPCS: 71046; 80053; 81001; 83605; 83880; 84484; 85025; 85610; 85730; 87040; 87086; 87631; 93005; 99285; J7030; P9612; A4216; J2405

== ENCOUNTER → 2024-03-24 | Outpatient (CLI) | payer MEDICARE, SELFPAY ==
[2024-03-24 15:25] LABS: Absolute Lymphocyte Count 1.61 X10^3/uL (0.83-4.51); Absolute Neutrophil Count 9.1 X10^3/uL (2.0-7.7); Basophil# 0.04 X10^3/uL; Basophil% 0.3 % (0-1); Eosinophil# 0.11 X10^3/uL; Eosinophils% 0.9 % (0-5); Hematocrit 37.3 % (37-47); Hemoglobin 11.7 g/dL (12.0-15.0); Lymphocyte # 1.61 X10^3/ul (0.83-4.51); Lymphocyte % 13.7 % (19-41); Mean Corp Hgb Conc 31.4 g/dL (32-36); Mean Corpuscular Volume 98.9 fL (81-99); Mean Platelet Vol. 9.9 fl (6.2-12.0); Monocyte# 0.77 X10^3/uL; Monocyte% 6.6 % (0-10); NRBC Flagged by Analyzer 0 % (0-5); Neutrophil # 9.06 X10^3/uL (2.7-7.7); Neutrophil % 77.3 % (47-70); POSITIVE MORPHOLOGY YES; Platelet Count 262 K/mm3 (150-450); RBC Distribution Width CV 18.3 % (11.6-14.6); RBC Distribution Width SD 65.1 fl (35.1-43.9); Red Blood Count 3.77 M/mm3 (4.2-5.4); White Blood Count 11.7 K/mm3 (4.4-11.0)
[2024-03-24 15:49] LABS: Differential Indicated SCAN CRITERIA MET
[2024-03-24 16:28] LABS: Erythrocyte Sedimentation Rate 24 mm/hr (0-30)
[2024-03-24 16:40] LABS: ALB/GLOB Ratio 0.8 RATIO (0.9-2.4); AST(SGOT) 29 U/L (15-37); Alanine Aminotransfer ALT/SGPT 40 U/L (13-56); Albumin, Serum 3.3 g/dL (3.2-5.0); Alkaline Phosphatase 70 U/L (45-117); Anion Gap 9 (5-15); BUN 29 mg/dL (7-18); BUN/Creat Ratio 28.4 RATIO (10-20); CRP < 2.90 mg/L (0.0-3.0); Calcium,Total 9.2 mg/dL (8.5-10.1); Chloride 96 mmol/L (98-107); Creatinine, Serum 1.02 mg/dL (0.55-1.02); EST Glomerular Filtration Rate 55 mL/min (>60); Est Glom Filt Rate - Afr Amer 66 mL/min (>60); Glucose 146 mg/dL (74-106); Potassium 3.9 mmol/L (3.5-5.1); Protein, Total 7.3 g/dL (6.4-8.2); Sodium Level 131 mmol/L (136-145)
[2024-03-24 17:13] LABS: Anisocytosis 1+; Macrocytosis 1+; Platelet Estimate ADEQUATE (ADEQ); Red Cell Morphology N CHROM NORMAL (NORM C&C)
[2024-03-27 11:09] LABS: Anti-Nuclear Antibody Test Negative (.)
[2024-03-27 17:07] LABS: Immunoglobulin E 23 IU/mL (6-495)
== END | disposition home or self-care (01) ==
LOC: MFPLAB 12:09
PROVIDERS: PCP Family Medicine; Visit Provider Family Medicine
DX: L50.8 Other urticaria (principal)
CPT/HCPCS: 36415; 80053; 82785; 85025; 85652; 86038; 86140

== ENCOUNTER 2024-03-26 14:22 | Emergency (ER) | payer MEDICARE, SELFPAY ==
[2024-03-26 14:23] VITALS: BP 117/47; PULSE 85; RESP 18; TEMP 36.1; O2SAT 97
[2024-03-26 14:42] VITALS: O2SAT 96
--- NOTE | 2024-03-26 14:43 | EKG12_ITS ---
Test Reason : Blood Pressure : / mmHG Vent. Rate : 085 BPM Atrial Rate : 085 BPM P-R Int : 156 ms QRS Dur : 086 ms QT Int : 396 ms P-R-T Axes : 025 011 038 degrees QTc Int : 471 ms Normal sinus rhythm Minimal voltage criteria for LVH, may be normal variant ( R in aVL ) Nonspecific ST abnormality Abnormal ECG Present Confirmed by DEJA COELLO, GAERTH ([id number]), mapping editor PARUL ST ([id number]) on 03/28/2024 7:57:03 AM Referred By: Lupillo Sanches Confirmed By:GARETH SHORT MD
--- NOTE | 2024-03-26 14:46 | EX.ED.DYSGE1 ---
HPI History of Present Illness Chief Complaint: Shortness of Breath Informant: patient and family Narrative Narrative: 84-year-old female with known coronary artery disease presenting to the emergency room with a chief complaint of heartburn and shortness of breath patient states that last night she was experiencing indigestion and shortness of breath. Nothing she states that indigestion to her feels like a pressure in her upper abdomen that is different than heartburn. She states that she is not having the symptoms now and as far as her breathing she states that she feels my breathing feels like I was short of breath. She states that she never has classic chest pain is angina and her symptoms are usually indigestion and shortness of breath except the last time when she had pneumonia and fluid overload. She was transferred at the end of last month to [facility] and underwent heart catheterization. It was felt that the patient was too high risk to perform PCI and was medically managed. Her Lasix was stopped and she was placed on torosemide. Patient family states that no changes were made to her Imdur or other cardiac medications. She went to see her primary care doctor today who referred her here to the emergency department. Patient notes that she is on Plavix and aspirin but no blood thinners. Patient notes that she was at her primary care doctor's office on Sunday for hives. She was started on hydroxyzine. Hives have resolved with no obvious known cause. [facility] Medical History Secondary adrenal insufficiency Loss of hearing Wears glasses History of Clostridium difficile infection Forgetfulness History of steroid therapy Walker as ambulation aid Bladder disease Low iron Fatty liver Easy bruising Dietary restriction Difficulty swallowing Difficulty chewing History of hiatal hernia Colostomy in place Gastric reflux History of edema History of echocardiogram Cardiology follow-up encounter History of CHF (congestive heart failure) History of irregular heartbeat Heart attack (~03/2022) Abdominal pain Bloating symptom Bright red blood per rectum Presence of stent in coronary artery (~04/06/22) Elevated troponin History of non-ST elevation myocardial infarction (NSTEMI) Nonrheumatic aortic (valve) stenosis with insufficiency Nonrheumatic mitral valve stenosis with insufficiency Pulmonary arterial hypertension Aortic insufficiency Severe mitral regurgitation Chronic hyponatremia Idiopathic thrombocytopenia Macular degeneration Lupus Rheumatic fever Hearing loss, right Hearing loss, left Hyperthyroidism Osteopenia Hepatitis Non-smoker Migraines Diverticulitis Adrenal insufficiency NASAL POLYP REMOVED History of left heart catheterization (LHC) (~03/27/22) 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 Tachycardia Heart disease Glaucoma Hypothyroidism Monoclonal gammopathies Hypertension Home Medications ?Medication ?Instructions ?Recorded ?Last Taken ?Type brimonidine 0.15 % eye drops 1 drp EACH EYE BID eye drops 06/23/17 01/11/22 History hydroxychloroquine 200 mg tablet 200 mg PO DAILYCM lupus 06/23/17 01/10/22 History levothyroxine 75 mcg tablet 75 mcg PO DAILY thyroid 06/23/17 03/13/23 History cholecalciferol (vitamin D3) 50 2,000 unit PO DAILY SUPPLEMENT 07/30/19 01/10/22 History mcg (2,000 unit) capsule [id number]-[id number] 1 cap PO 4X/DAY enzymes 04/29/21 01/10/22 History 12,000-38,000-60,000 unit capsule,delayed rel (Creon) bimatoprost 0.01 % eye drops 1 drp EACH EYE [facility] 01/11/22 01/11/22 History (Dawn) atorvastatin 40 mg tablet 40 mg PO DAILY 05/04/22 Unknown History clopidogrel 75 mg tablet (Plavix) 75 mg PO DAILY 05/04/22 Unknown History ferrous sulfate 325 mg (65 mg 325 mg PO Q OTHER DAY 05/24/22 Unknown History iron) tablet Lactobacillus acidophilus 10 10,000 mmu cells PO DAILY IMMUNE 07/13/22 Unknown History billion cell capsule (Probiotic) HEALTH aspirin 81 mg tablet,delayed 81 mg PO DAILY 07/13/22 Unknown History release (Adult Low Dose Aspirin) cyanocobalamin (vitamin B-12) 100 100 mcg PO DAILY 07/13/22 Unknown History mcg tablet pantoprazole 40 mg tablet,delayed 20 mg PO Q12H 11/15/22 03/13/23 History release furosemide 40 mg tablet 40 mg PO DAILY fluid pill 11/28/22 Unknown History potassium chloride 10 mEq 10 meq PO DAILY SUPPLEMENT' 11/28/22 Unknown History tablet,extended release(part/cryst) hydrocortisone 10 mg tablet 10 mg PO DAILY #90 tabs 04/26/23 Unknown Rx carvedilol 3.125 mg tablet 3.125 mg PO Q12H 06/12/23 Unknown History carvedilol 6.25 mg tablet 6.25 mg PO Q12H 06/12/23 Unknown History isosorbide mononitrate 30 mg 15 mg PO DAILY 06/12/23 Unknown History tablet,extended release 24 hr budesonide 3 mg 3 mg PO DAILY inflammation #30 ea 03/20/24 Unknown Rx capsule,delayed,extended release Allergy/AdvReac Type Severity Reaction Status Date / Time Penicillins (PCN) Allergy Hives Verified 03/26/24 14:23 Sulfa (Sulfonamide AdvReac Severe Rash Verified 03/26/24 14:23 Antibiotics) griseofulvin (From Priti-PEG AdvReac Intermediate Other Verified 03/26/24 14:23 (ultramicrosize)) azathioprine (From Imuran) AdvReac Vomiting Verified 03/26/24 14:23 colchicine AdvReac Other Verified 03/26/24 14:23 doxycycline AdvReac Rash Verified 03/26/24 14:23 famotidine (From Pepcid) AdvReac Other Verified 03/26/24 14:23 Family History Father Heart disease Pacemaker Mother Heart disease Brother Myocardial infarction Sister Myocardial infarction Heart disease Surgical History H/O colonoscopy History of sinus surgery H/O dilation and curettage Presence of coronary angioplasty implant and graft Status post colon resection (~12/2021) h/o mass removed from hip H/O cataract extraction H/O tubal ligation Hx of cholecystectomy Social History household members: spouse number of children: 5 current occupational status: retired Smoking Status: Never smoker alcohol intake: never substance use type: does not use caffeine: No additional social history: Barbara Sanford-Daughter- Manages Medical care [facility] ED Constitutional Constitutional ED: Denies chills, fever(s) or weight loss Eyes Eyes: Denies change in vision or diplopia ENT ENT ED: Denies ear pain, rhinorrhea or sore throat Cardiovascular Cardiovascular: Reports chest pain; Denies orthopnea, palpitations or racing heartbeat Respiratory/Chest Respiratory/Chest: Reports dyspnea and dyspnea on exertion; Denies cough or orthopnea Gastrointestinal Gastrointestinal: Reports abdominal pain; Denies diarrhea, nausea or vomiting Genitourinary Genitourinary ED: Denies dysuria, hematuria or urinary frequency Musculoskeletal Musculoskeletal: Denies arthralgias or myalgias Integumentary Denies abscess or rash Neurologic Neurologic: Denies headache(s) or weakness Psychiatric Psychiatric: Denies anxiety, depression, suicidal ideation or suicidal thoughts Endocrine Endocrinology: Denies polydipsia, polyphagia or polyuria Allergic/Immunologic Allergic/Immunologic ED: Denies mouth swelling, tongue swelling or urticaria EXAM Physical Exam Const Vital Signs: 03/26/24 14:23 03/26/24 14:23 03/26/24 14:42 Temperature 97 F L 97 F L Temperature Source Temporal Temporal Pulse Rate 85 85 Respiratory Rate 18 18 Respiratory Effort Short of Breath Respiratory Depth Normal Respiratory Pattern Normal Blood Pressure 117/47 L 117/47 L Blood Pressure Mean 70 70 Pulse Ox 97 97 Oxygen Delivery Method Room Air Room Air Room Air 03/26/24 15:44 Temperature 96.9 F L Temperature Source Pulse Rate 79 Respiratory Rate 16 Respiratory Effort Respiratory Depth Respiratory Pattern Blood Pressure 125/63 H Blood Pressure Mean 83 Pulse Ox 96 Oxygen Delivery Method Positive well nourished and well developed General Appearance ED: well developed HEENT Reports normocephalic, head/scalp atraumatic and moist mucous membranes Eyes PERRL and EOMs intact bilaterally Neck no lymphadenopathy, supple and no JVD Resp normal respiratory effort and clear to auscultation bilaterally Cardio regular rate and regular rhythm Rate: other Other Details: Patient with holosystolic murmur GI normal to inspection, nondistended, normoactive bowel sounds and non-tender Palpation: soft Back/Spine no CVA tenderness and normal ROM Extremity Extremity Narrative: Patient has extensive bruising of the bilateral upper extremities. There is no appreciable lower extremity swelling. General Extremety ED: Negative for edema General Extremity: Negative for edema Neuro oriented x3 and CN's II-XII intact bilaterally Sensorium / Orientation: alert Motor Exam: strength 5/5 throughout Psych mental status grossly normal Mood & Affect: Negative for depressed or tearful Skin no rashes or lesions noted and no wounds MDM MDM MDM Narrative Medical decision making narrative: Differential diagnosis includes but not limited to unstable angina stable angina clinically patient/ACS, CHF gastritis/esophagitis/GERD, pneumonia, EGD doubt clinically significant pulmonary embolism as the patient is no longer symptomatic, aortic dissection aneurysm, pericarditis/myocarditis. EKG shows a normal sinus rhythm with a ventricular rate of 85 bpm. White count 8.6 hemoglobin 11.2 with a platelet of 207. This appears at baseline for the patient. BUN of 28 creatinine 1.08. Troponin is normal at 26 and this represents greater than 6 hours since her symptom onset which was last night (currently 1548 hrs.). BNP is elevated at 543. My independent interpretation of the chest x-ray is no acute process no evidence of volume overload. Her lung sounds are clear no lower extremity swelling. I do not feel strongly that she has overt CHF. She is satting normally on room air and currently does not have any dyspnea. At this point patient will be discharged home. Would recommend discussing her symptoms in the ED and primary care visit with her marine drafter. History & Record Review Discussion w/independent historian: Patient, Family and Other (Dr. Salmon (PCP)) Additional record(s) reviewed:: Prior ED visit and Prior labs Lab Data Attestation: I reviewed the patient's lab results. Labs: Laboratory Results - last 24 hr 03/26/24 14:52 WBC 8.6 RBC 3.65 L Hgb 11.2 L Hct 35.1 L MCV 96.2 MCH 30.7 MCHC 31.9 L RDW Std Deviation 63.0 H RDW Coeff of Samreen 18.1 H Plt Count 207 MPV 9.4 Immature Gran % (Auto) 1.000 H Neut % (Auto) 80.1 H Lymph % (Auto) 11.7 L [place] % (Auto) 6.4 Eos % (Auto) 0.5 Baso % (Auto) 0.3 Absolute Neuts (auto) 6.9 Absolute Lymphs (auto) 1.01 Nucleated RBC % 0 Sodium 136 Potassium 3.6 Chloride 99 Carbon Dioxide 24.0 Anion Gap 13 BUN 28 H Creatinine 1.08 H Est GFR (MDRD) Af Amer 62 Est GFR (MDRD) Non-Af 51 L BUN/Creatinine Ratio 25.9 H Glucose 188 H Calcium 9.0 Troponin I High Sens 26 B-Natriuretic Peptide 543.2 H Radiography Diagnostic Testing: Clinical Impression(s) from Imaging Studies Chest X-Ray 03/26/24 15:00 IMPRESSION: Hyperinflation. The lungs are clear. Electronically Signed: Emeka England MD at 15:11 EDT , EKG Initial EKG: Attestation: I personally reviewed and interpreted this EKG as follows: Comments: Normal sinus rhythm ventricular rate of [address]-T wave abnormality. Prior EKG tracings: available for review Prior: Unchanged (03/06/2024) Discharge Plan Triage Chief Complaint: Shortness of Breath ED Provider: Lupillo Sanches Dx/Rx/DC Orders Clinical Impression: Chest pain, Coronary artery disease Instructions: ED Chest Pain, Uncertain Cause Prescriptions: No Action ferrous sulfate 325 mg (65 mg iron) tablet 325 mg PO Q OTHER DAY clopidogrel [Plavix] 75 mg tablet 75 mg PO DAILY atorvastatin 40 mg tablet 40 mg PO DAILY aspirin [Adult Low Dose Aspirin] 81 mg tablet,delayed release (DR/EC) 81 mg PO DAILY cyanocobalamin (vitamin B-12) 100 mcg tablet 100 mcg PO DAILY pantoprazole 40 mg tablet,delayed release (DR/EC) 20 mg PO Q12H levothyroxine 75 MCG tablet 75 mcg PO DAILY Rx Instructions: name brand synthroid hydroxychloroquine 200 MG tablet 200 mg PO DAILYCM brimonidine 1 DROP bottle 1 drp EACH EYE BID cholecalciferol (vitamin D3) 2,000 UNIT capsule 2,000 unit PO DAILY Creon 12,000-38,000 -60,000 unit capsule,delayed release(DR/EC) 1 cap PO 4X/DAY Patient Comments: with three meals and one snack Lumigan 0.01 % Drops 1 drp EACH EYE QHS Probiotic 10 billion cell capsule 10,000 mmu cells PO DAILY furosemide 40 mg tablet 40 mg PO DAILY carvedilol 3.125 mg tablet 3.125 mg PO Q12H carvedilol 6.25 mg tablet 6.25 mg PO Q12H Patient Comments: TAKE 1 TABLET BY MOUTH TWICE A DAY WITH MEALS isosorbide mononitrate 30 mg tablet extended release 24 hr 15 mg PO DAILY Patient Comments: TAKE ONE-HALF TABLET(15 MG) BY MOUTH DAILY EVERY MORNING. potassium chloride 10 mEq tablet,ER particles/crystals 10 meq PO DAILY hydrocortisone 10 mg tablet 10 mg PO DAILY Qty: 90 1RF budesonide 3 mg capsule,delayed,extend.release 3 mg PO DAILY Qty: 30 2RF Primary Care Provider: Ashvin Cardenas Referrals: Ashvin Cardenas MD [Primary Care Provider] - Keep Una appointment Activity Restrictions/Additional Instructions: I would recommend discussing your symptoms and today's visit with your marine drafter. If return if symptoms worsening or concerns please return to emergency. Print Language: Portuguese Disposition Disposition: Home, Self Care
--- NOTE | 2024-03-26 15:00 | RAD_ITS ---
STUDY: X-RAY CHEST REASON FOR EXAM: Female, 84 years old. Chest pain TECHNIQUE: Single AP portable view of the chest. COMPARISON: Comparison is made with prior study dated March 06, 2024. FINDINGS: EKG electrodes are seen. Hyperinflation. No acute infiltrate is seen. There is no demonstrated pleural abnormality. There is moderate cardiac enlargement. Normal mediastinum and alejandro. Normal visualized pulmonary arteries. There is atherosclerotic calcification of the aortic arch with tortuosity. There are diffuse degenerative changes of the visualized thoracic spine. Normal visualized ribs, clavicles, and shoulders. There is no demonstrated abnormality of the visualized soft tissue structures of the upper abdomen. RAD/Chest 1 View (Portable) IMPRESSION: Hyperinflation. The lungs are clear. Electronically Signed: Emeka England MD at 15:11 EDT ,
[2024-03-26 15:08] LABS: Absolute Lymphocyte Count 1.01 X10^3/uL (0.83-4.51); Absolute Neutrophil Count 6.9 X10^3/uL (2.0-7.7); Basophil# 0.03 X10^3/uL; Basophil% 0.3 % (0-1); Eosinophil# 0.04 X10^3/uL; Eosinophils% 0.5 % (0-5); Hematocrit 35.1 % (37-47); Hemoglobin 11.2 g/dL (12.0-15.0); Lymphocyte # 1.01 X10^3/ul (0.83-4.51); Lymphocyte % 11.7 % (19-41); Mean Corp Hgb Conc 31.9 g/dL (32-36); Mean Corpuscular Hgb 30.7 pg (27.0-32.0); Mean Corpuscular Volume 96.2 fL (81-99); Mean Platelet Vol. 9.4 fl (6.2-12.0); Monocyte# 0.55 X10^3/uL; Monocyte% 6.4 % (0-10); NRBC Flagged by Analyzer 0 % (0-5); Neutrophil # 6.92 X10^3/uL (2.7-7.7); Neutrophil % 80.1 % (47-70); Platelet Count 207 K/mm3 (150-450); RBC Distribution Width CV 18.1 % (11.6-14.6); Red Blood Count 3.65 M/mm3 (4.2-5.4); White Blood Count 8.6 K/mm3 (4.4-11.0)
[2024-03-26 15:37] LABS: Anion Gap 13 (5-15); BUN 28 mg/dL (7-18); BUN/Creat Ratio 25.9 RATIO (10-20); Chloride 99 mmol/L (98-107); Creatinine, Serum 1.08 mg/dL (0.55-1.02); EST Glomerular Filtration Rate 51 mL/min (>60); Est Glom Filt Rate - Afr Amer 62 mL/min (>60); Glucose 188 mg/dL (74-106); Potassium 3.6 mmol/L (3.5-5.1); Sodium Level 136 mmol/L (136-145); Troponin-I HS 26 pg/mL (3.0-54.0)
[2024-03-26 15:39] LABS: BNP,B-Type NATRIURETIC PEPTIDE 543.2 pg/mL (0-100)
[2024-03-26 15:44] VITALS: BP 125/63; PULSE 79; RESP 16; TEMP 36.1; O2SAT 96
== END 2024-03-26 15:59 | disposition home or self-care (01) ==
PROVIDERS: Emergency Provider Emergency Medicine; PCP Family Medicine; Referring Provider Emergency Medicine; Visit Provider Emergency Medicine
DX: R07.9 Chest pain, unspecified (principal); I25.10 Atherosclerotic heart disease of native coronary artery without angina pectoris; R12 Heartburn; Z79.02 Long term (current) use of antithrombotics/antiplatelets; R06.02 Shortness of breath; E87.1 Hypo-osmolality and hyponatremia; Z79.899 Other long term (current) drug therapy; Z79.890 Hormone replacement therapy; Z79.82 Long term (current) use of aspirin; I10 Essential (primary) hypertension; E03.9 Hypothyroidism, unspecified; I25.2 Old myocardial infarction
CPT/HCPCS: 71045; 80048; 83880; 84484; 85025; 93005; 99284; A4216

== ENCOUNTER → 2024-03-28 | Outpatient (CLI) | payer MEDICARE, SELFPAY ==
[2024-03-28 12:23] LABS: Absolute Lymphocyte Count 1.86 X10^3/uL (0.83-4.51); Absolute Neutrophil Count 6.3 X10^3/uL (2.0-7.7); Basophil# 0.03 X10^3/uL; Basophil% 0.3 % (0-1); Eosinophil# 0.12 X10^3/uL; Eosinophils% 1.4 % (0-5); Hematocrit 35.3 % (37-47); Hemoglobin 11.2 g/dL (12.0-15.0); Lymphocyte # 1.86 X10^3/ul (0.83-4.51); Lymphocyte % 21.3 % (19-41); Mean Corp Hgb Conc 31.7 g/dL (32-36); Mean Corpuscular Hgb 31.1 pg (27.0-32.0); Mean Corpuscular Volume 98.1 fL (81-99); Mean Platelet Vol. 9.8 fl (6.2-12.0); Monocyte# 0.37 X10^3/uL; Monocyte% 4.2 % (0-10); NRBC Flagged by Analyzer 0 % (0-5); Neutrophil # 6.28 X10^3/uL (2.7-7.7); Neutrophil % 71.9 % (47-70); POSITIVE MORPHOLOGY YES; Platelet Count 181 K/mm3 (150-450); RBC Distribution Width CV 18.5 % (11.6-14.6); RBC Distribution Width SD 65.6 fl (35.1-43.9); Reticulocyte Count 5.38 % (0.5-1.5); White Blood Count 8.7 K/mm3 (4.4-11.0)
[2024-03-28 12:24] LABS: Differential Indicated SCAN CRITERIA MET
[2024-03-28 12:44] LABS: Anisocytosis 1+
[2024-03-28 13:15] LABS: Ferritin 100 ng/mL (8-252); Iron 264 ug/dL (50-170); Iron Binding Capacity,Total 291 ug/dL (250-450); LDH 188 U/L (84-246)
[2024-04-01 16:10] LABS: Albumin 3.3 g/dL (2.9-4.4); Alpha-1-Globulins 0.2 g/dL (0.0-0.4); Alpha-2-Globulins 0.8 g/dL (0.4-1.0); Endomysial Antibody IgA Negative (Negative); Gamma Globulin 1.7 g/dL (0.4-1.8); Immunoglobulin A 12 mg/dL (64-422); Immunoglobulin G 1958 mg/dL (586-1602); Immunoglobulin M 21 mg/dL (26-217); PROEL- TOTAL PROTEIN 6.9 g/dL (6.0-8.5); t-Transglutaminase IgA <2 U/mL (0-3)
== END | disposition home or self-care (01) ==
LOC: LAB 11:12
PROVIDERS: PCP Family Medicine; Referring Provider Internal Medicine Gastroenterology; Visit Provider Internal Medicine Gastroenterology
DX: D64.9 Anemia, unspecified (principal); K86.1 Other chronic pancreatitis; K90.0 Celiac disease; M35.00 Sjogren syndrome, unspecified
CPT/HCPCS: 36415; 82728; 82784; 83516; 83540; 83550; 83615; 84165; 85025; 85045; 86255; 86334

== ENCOUNTER → 2024-04-08 | Outpatient (CLI) | payer MEDICARE, SELFPAY | END | disposition home or self-care (01) | LOC: LABSPEC 14:17 | PROVIDERS: PCP Family Medicine; Referring Provider Nurse Practitioner Women's Health; Visit Provider Nurse Practitioner Women's Health | DX: N89.8 Other specified noninflammatory disorders of vagina (principal) | CPT/HCPCS: 87070; 87205 ==

== ENCOUNTER 2024-04-17 10:24 | Emergency (ER) | payer MEDICARE, SELFPAY ==
[2024-04-17] VITALS (27 sets, daily range): BP systolic 120–174; BP diastolic 39–66; PULSE 73–89; RESP 11–22; TEMP 36.6–37.2; O2SAT 94–99; BMI 24.2
--- NOTE | 2024-04-17 10:20 | RAD_ITS ---
STUDY: X-RAY CHEST REASON FOR EXAM: Female, 84 years old. Chest pain TECHNIQUE: PA and lateral views of the chest. COMPARISON: Comparison is made with prior study dated March 26, 2024. FINDINGS: EKG electrodes are seen. Hyperinflation. There is evidence of increased interstitial markings at the lung bases suggestive of possible early CHF. There is no demonstrated pleural abnormality. There is mild cardiac enlargement. Normal mediastinum and alejandro. Normal visualized pulmonary arteries. There is atherosclerotic calcification of the aortic arch with tortuosity. There is demineralization of the osseous structures. Increased kyphosis. Normal visualized ribs, clavicles, and shoulders. Hiatal hernia. RAD/Chest PA and Lateral IMPRESSION: Findings suggestive of CHF. Electronically Signed: Emeka nEgland MD at 11:53 EDT ,
--- NOTE | 2024-04-17 10:32 | EKG12_ITS ---
Test Reason : CP Blood Pressure : / mmHG Vent. Rate : 079 BPM Atrial Rate : 079 BPM P-R Int : 144 ms QRS Dur : 084 ms QT Int : 380 ms P-R-T Axes : 071 009 031 degrees QTc Int : 435 ms Normal sinus rhythm Nonspecific ST and T wave abnormality Abnormal ECG Confirmed by GARETH SHORT MD ([id number]), supervising editor trailer [address] ([id number]) on 04/18/2024 1:48:08 PM Also confirmed by GARETH SHORT MD ([id number]), supervising editor trailer [address] ([id number]) on 04/18/2024 1:48:37 PM Referred By: TB Confirmed By:GARETH SHORT MD
--- NOTE | 2024-04-17 10:47 | EDS_ITS ---
HPI History of Present Illness Chief Complaint: Chest Pain Narrative Narrative: Patient is a 84-year-old female past medical history of monoclonal gammopathy of unknown significance, CAD with stents on Plavix, heart failure, pulmonary arterial hypertension, macular degeneration, adrenal insufficiency, hypothyroidism who presented to the emergency department with a chief complaint of chest pressure. Patient states this morning she woke up and had her normal morning routine was sitting at the coffee table and developed a feeling of indigestion. Patient states that she has issues with indigestion and thought that this was what this was however things were not improving which prompted them to call EMS to have her brought here for the valuation management. According to family at bedside she was recently down at [facility] and had a heart catheterization performed at the end of February which showed that the 1 side of her heart is functioning well after intervention. They did note that she does have significant heart disease and the giver is trying medical management as she is not a candidate for CABG unless at very last resort. They note that she is full code. Patient states that currently she overall feels okay at this point time [facility] Medical History MGUS (monoclonal gammopathy of unknown significance) Secondary adrenal insufficiency Loss of hearing Wears glasses History of Clostridium difficile infection Forgetfulness History of steroid therapy Walker as ambulation aid Bladder disease Low iron Fatty liver Easy bruising Dietary restriction Difficulty swallowing Difficulty chewing History of hiatal hernia Colostomy in place Gastric reflux History of edema History of echocardiogram Cardiology follow-up encounter History of CHF (congestive heart failure) History of irregular heartbeat Heart attack (~03/2022) Abdominal pain Bloating symptom Bright red blood per rectum Presence of stent in coronary artery (~04/06/22) Elevated troponin History of non-ST elevation myocardial infarction (NSTEMI) Nonrheumatic aortic (valve) stenosis with insufficiency Nonrheumatic mitral valve stenosis with insufficiency Pulmonary arterial hypertension Aortic insufficiency Severe mitral regurgitation Chronic hyponatremia Idiopathic thrombocytopenia Macular degeneration Lupus Rheumatic fever Hearing loss, right Hearing loss, left Hyperthyroidism Osteopenia Hepatitis Non-smoker Migraines Diverticulitis Adrenal insufficiency NASAL POLYP REMOVED History of left heart catheterization (LHC) (~03/27/22) 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 Tachycardia Heart disease Glaucoma Hypothyroidism Monoclonal gammopathies Hypertension Home Medications ?Medication ?Instructions ?Recorded ?Last Taken ?Type brimonidine 0.15 % eye drops 1 drp EACH EYE BID eye drops 06/23/17 01/11/22 History hydroxychloroquine 200 mg tablet 200 mg PO DAILYCM lupus 06/23/17 01/10/22 History levothyroxine 75 mcg tablet 75 mcg PO DAILY thyroid 06/23/17 03/13/23 History cholecalciferol (vitamin D3) 50 2,000 unit PO DAILY SUPPLEMENT 07/30/19 01/10/22 History mcg (2,000 unit) capsule [id number] 1 cap PO 4X/DAY enzymes 04/29/21 01/10/22 History 12,000-38,000-60,000 unit capsule,delayed rel (Creon) bimatoprost 0.01 % eye drops 1 drp EACH EYE [facility] 01/11/22 01/11/22 History (Jayigan) atorvastatin 40 mg tablet 40 mg PO DAILY 05/04/22 Unknown History clopidogrel 75 mg tablet (Plavix) 75 mg PO DAILY 05/04/22 Unknown History ferrous sulfate 325 mg (65 mg 325 mg PO Q OTHER DAY 05/24/22 Unknown History iron) tablet Lactobacillus acidophilus 10 10,000 mmu cells PO DAILY IMMUNE 07/13/22 Unknown History billion cell capsule (Probiotic) HEALTH aspirin 81 mg tablet,delayed 81 mg PO DAILY 07/13/22 Unknown History release (Adult Low Dose Aspirin) cyanocobalamin (vitamin B-12) 100 100 mcg PO DAILY 07/13/22 Unknown History mcg tablet pantoprazole 40 mg tablet,delayed 20 mg PO Q12H 11/15/22 03/13/23 History release potassium chloride 10 mEq 10 meq PO DAILY SUPPLEMENT' 11/28/22 Unknown History tablet,extended release(part/cryst) hydrocortisone 10 mg tablet 10 mg PO DAILY #90 tabs 04/26/23 Unknown Rx carvedilol 3.125 mg tablet 3.125 mg PO Q12H 06/12/23 Unknown History carvedilol 6.25 mg tablet 6.25 mg PO Q12H 06/12/23 Unknown History isosorbide mononitrate 30 mg 15 mg PO DAILY 06/12/23 Unknown History tablet,extended release 24 hr budesonide 3 mg 3 mg PO DAILY inflammation #30 ea 03/20/24 Unknown Rx capsule,delayed,extended release torsemide 20 mg tablet 20 mg PO QDAY 03/28/24 Unknown History carvedilol 12.5 mg tablet 12.5 mg PO BID 30 days #60 tabs 04/17/24 Unknown Rx ranolazine 1,000 mg 1,000 mg PO BID 30 days #60 tabs 04/17/24 Unknown Rx tablet,extended release,12 hr Allergy/AdvReac Type Severity Reaction Status Date / Time Penicillins (PCN) Allergy Hives Verified 04/08/24 11:09 Sulfa (Sulfonamide AdvReac Severe Rash Verified 04/17/24 10:33 Antibiotics) griseofulvin (From Priti-PEG AdvReac Intermediate Other Verified 04/17/24 10:33 (ultramicrosize)) azathioprine (From Imuran) AdvReac Vomiting Verified 04/17/24 10:33 colchicine AdvReac Other Verified 04/17/24 10:33 doxycycline AdvReac Rash Verified 04/17/24 10:33 famotidine (From Pepcid) AdvReac Other Verified 04/17/24 10:33 Family History Father Heart disease Pacemaker Mother Heart disease Brother Myocardial infarction Sister Myocardial infarction Heart disease Surgical History H/O colonoscopy History of sinus surgery H/O dilation and curettage Presence of coronary angioplasty implant and graft Status post colon resection (~12/2021) h/o mass removed from hip H/O cataract extraction H/O tubal ligation Hx of cholecystectomy Social History household members: spouse number of children: 5 current occupational status: retired Smoking Status: Never smoker alcohol intake: never substance use type: does not use caffeine: No additional social history: Barbara Sanford-Daughter- Manages Medical care ROS ROS ED ROS Narrative Constitutional: Denies fevers, chills, headaches, lightheadedness, dizziness Eyes: Denies change in vision double vision blurry vision Cardiovascular: Complains of chest pressure states that this did not radiate anywhere was in the middle of her chest nothing made this better or worse Respiratory: Denies coughing wheezing shortness of breath Abdomen: Denies abdominal pain nausea vomit diarrhea states that she has colostomy which has normal output : Denies any urinary symptoms Neurological: Denies numbness, weakness, tingling Musculoskeletal: Denies back pain Skin: Denies rashes or lesions EXAM Physical Exam Narrative Exam Narrative: General: Patient lying in bed rest comfortably did not appear to be in acute distress Head: Atraumatic, normocephalic Eyes: PERRL bilateral, EOMI bilateral, no conjunctival injection noted Neck: Soft, supple, trachea midline Cardiovascular: Regular rate and rhythm no murmurs gallops rubs noted Respiratory: Clear to auscultation bilaterally no rales rhonchi or wheezes noted Abdomen: Soft, nondistended, nontender to palpation, colostomy in place Extremities: +4/5 strength noted in the bilateral upper and lower extremities, no pedal edema on exam Neurological: Patient is following commands knew that she was at [facility] year is 2023 Skin: Patient has diffuse ecchymosis scattered throughout her body states that she easily bruises Const Vital Signs: 04/17/24 10:27 04/17/24 10:32 04/17/24 11:25 Temperature 98.9 F Temperature Source Oral Pulse Rate 80 79 Respiratory Rate 15 21 H Blood Pressure 167/54 H Blood Pressure Mean 91 Pulse Ox 98 97 Oxygen Delivery Method Room Air Room Air Room Air 04/17/24 12:00 04/17/24 13:00 04/17/24 14:00 Temperature Temperature Source Pulse Rate 74 74 79 Respiratory Rate 15 18 18 Blood Pressure 148/55 H 154/60 H 143/58 H Blood Pressure Mean 86 91 86 Pulse Ox 98 95 97 Oxygen Delivery Method Room Air Room Air MDM MDM MDM Narrative Medical decision making narrative: Patient is a 84-year-old female who presents to the emergency department with a chief complaint of chest pressure/indigestion. Patient will have workup performed here on the differential diagnose includes but limited to ACS, NSTEMI, GERD, upper respiratory infection second of ideology. Once workup is obtained reviewed she will be reevaluated. Patient's family members at bedside states that she has not have nitroglycerin secondary to her poor heart function. Patient's EKG reviewed from 03/26/2024 which showed sinus rhythm with a rate of 85 bpm when comparing to today's EKG patient did have very similar EKG however in lead V1 her ST morphology has changed the rest of this remains very similar in nature. Patient's CBC reviewed and showed a white blood count of 7.6, hemoglobin stable 12.8, platelet count was noted be noted be 144, patient's sodium was only 134, potassium normal 4.8, creatinine normal at 0.96. Patient's troponin was noted be 35 with a delta troponin obtained elevated to 15, proBNP elevated to 73.6. Patient's chest x-ray was reviewed as well and showed finding suggestive of congestive heart failure. Patient is not having dyspnea on exertion she does not have increased pitting edema in the bilateral lower extremities. Patient ambulated here in the emergency department no evidence of hypoxia Patient's case was discussed with Dr. Acosta who reviewed the EKG as well and he is recommending placing the patient on Ranexa 1000 mg twice a day and increasing her carvedilol dose to 12.5 mg twice daily. I discussed this with the patient and family ember bedside. They state that they would like to run this by their giver down at [facility] prior to starting this medication. They state that she does have a appointment with him on of next week. 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 They are agreeable with this plan they were encouraged to return with worsening symptoms or concerns all question concerns answered she was discharged home in stable condition. Lab Data Labs: Laboratory Results - last 24 hr 04/17/24 04/17/24 10:40 12:58 WBC 7.6 RBC 4.00 L Hgb 12.8 Hct 40.1 MCV 100.3 H MCH 32.0 MCHC 31.9 L RDW Std Deviation 67.5 H RDW Coeff of Samreen 18.1 H Plt Count 144 L MPV 10.5 Immature Gran % (Auto) 1.200 H Neut % (Auto) 64.9 Lymph % (Auto) 23.1 Prowers % (Auto) 9.2 Eos % (Auto) 1.2 Baso % (Auto) 0.4 Absolute Neuts (auto) 4.9 Absolute Lymphs (auto) 1.75 Nucleated RBC % 0 Anisocytosis 1+ Sodium 134 L Potassium 4.8 Chloride 104 Carbon Dioxide 26.0 Anion Gap 5 BUN 21 H Creatinine 0.96 Estim Creat Clear Calc 31.33 Est GFR (MDRD) Af Amer 71 Est GFR (MDRD) Non-Af 59 L BUN/Creatinine Ratio 21.9 H Glucose 143 H Calcium 9.5 Troponin I High Sens 35 215 H* B-Natriuretic Peptide 273.6 H Radiography Diagnostic Testing: Clinical Impression(s) from Imaging Studies Chest X-Ray 04/17/24 10:20 IMPRESSION: Findings suggestive of CHF. Electronically Signed: Emeka England MD at 11:53 EDT , Discharge Plan Triage Chief Complaint: Chest Pain ED Provider: Phil Galvan Dx/Rx/DC Orders Clinical Impression: Chest pressure Prescriptions: New ranolazine 1,000 mg tablet extended release 12 hr 1,000 mg PO BID 30 Days Qty: 60 0RF carvedilol 12.5 mg tablet 12.5 mg PO BID 30 Days Qty: 60 0RF Rx Instructions: must administer with a meal/food No Action ferrous sulfate 325 mg (65 mg iron) tablet 325 mg PO Q OTHER DAY clopidogrel [Plavix] 75 mg tablet 75 mg PO DAILY atorvastatin 40 mg tablet 40 mg PO DAILY aspirin [Adult Low Dose Aspirin] 81 mg tablet,delayed release (DR/EC) 81 mg PO DAILY cyanocobalamin (vitamin B-12) 100 mcg tablet 100 mcg PO DAILY pantoprazole 40 mg tablet,delayed release (DR/EC) 20 mg PO Q12H torsemide 20 mg tablet 20 mg PO QDAY levothyroxine 75 MCG tablet 75 mcg PO DAILY Rx Instructions: name brand synthroid hydroxychloroquine 200 MG tablet 200 mg PO DAILYCM brimonidine 1 DROP bottle 1 drp EACH EYE BID cholecalciferol (vitamin D3) 2,000 UNIT capsule 2,000 unit PO DAILY Creon 12,000-38,000 -60,000 unit capsule,delayed release(DR/EC) 1 cap PO 4X/DAY Patient Comments: with three meals and one snack Lumigan 0.01 % Drops 1 drp EACH EYE QHS Probiotic 10 billion cell capsule 10,000 mmu cells PO DAILY carvedilol 3.125 mg tablet 3.125 mg PO Q12H carvedilol 6.25 mg tablet 6.25 mg PO Q12H Patient Comments: TAKE 1 TABLET BY MOUTH TWICE A DAY WITH MEALS isosorbide mononitrate 30 mg tablet extended release 24 hr 15 mg PO DAILY Patient Comments: TAKE ONE-HALF TABLET(15 MG) BY MOUTH DAILY EVERY MORNING. potassium chloride 10 mEq tablet,ER particles/crystals 10 meq PO DAILY hydrocortisone 10 mg tablet 10 mg PO DAILY Qty: 90 1RF budesonide 3 mg capsule,delayed,extend.release 3 mg PO DAILY Qty: 30 2RF Primary Care Provider: Ashvin Cardenas Referrals: Ashvin Cardenas MD [Primary Care Provider] - Activity Restrictions/Additional Instructions: Follow-up with your giver in outpatient setting. 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 Return with worsening symptoms or other concerns. Follow-up your primary care physician outpatient setting. Print Language: Citizen Of [place] Disposition Disposition: Home, Self Care
[2024-04-17 10:52] LABS: Absolute Lymphocyte Count 1.75 X10^3/uL (0.83-4.51); Absolute Neutrophil Count 4.9 X10^3/uL (2.0-7.7); Basophil# 0.03 X10^3/uL; Basophil% 0.4 % (0-1); Eosinophil# 0.09 X10^3/uL; Eosinophils% 1.2 % (0-5); Hematocrit 40.1 % (37-47); Hemoglobin 12.8 g/dL (12.0-15.0); Lymphocyte # 1.75 X10^3/ul (0.83-4.51); Lymphocyte % 23.1 % (19-41); Mean Corp Hgb Conc 31.9 g/dL (32-36); Mean Corpuscular Volume 100.3 fL (81-99); Mean Platelet Vol. 10.5 fl (6.2-12.0); Monocyte% 9.2 % (0-10); NRBC Flagged by Analyzer 0 % (0-5); Neutrophil # 4.91 X10^3/uL (2.7-7.7); Neutrophil % 64.9 % (47-70); POSITIVE MORPHOLOGY YES; Platelet Count 144 K/mm3 (150-450); RBC Distribution Width CV 18.1 % (11.6-14.6); RBC Distribution Width SD 67.5 fl (35.1-43.9); White Blood Count 7.6 K/mm3 (4.4-11.0)
[2024-04-17 10:54] LABS: Differential Indicated SCAN CRITERIA MET
[2024-04-17 11:16] LABS: BNP,B-Type NATRIURETIC PEPTIDE 273.6 pg/mL (0-100)
[2024-04-17 11:17] LABS: Anion Gap 5 (5-15); BUN 21 mg/dL (7-18); BUN/Creat Ratio 21.9 RATIO (10-20); Calcium,Total 9.5 mg/dL (8.5-10.1); Chloride 104 mmol/L (98-107); Creatinine, Serum 0.96 mg/dL (0.55-1.02); EST Glomerular Filtration Rate 59 mL/min (>60); Est Glom Filt Rate - Afr Amer 71 mL/min (>60); Estimated Creatinine Clearance 31.33 ml/min; Glucose 143 mg/dL (74-106); Potassium 4.8 mmol/L (3.5-5.1); Sodium Level 134 mmol/L (136-145); Troponin-I HS (w/2H Reflex) 35 pg/mL (3.0-54.0)
[2024-04-17 11:24] LABS: Anisocytosis 1+
[2024-04-17 12:43] LABS: Reflex Troponin-HS? (from REC) Y
[2024-04-17 13:26] LABS: Troponin-I HS 215 pg/mL (3.0-54.0)
[2024-04-17 16:50] LABS: Troponin-I HS 404 pg/mL (3.0-54.0)
[2024-04-17] MEDS: Carvedilol 12.5 MG Tablet PO (18:06)
--- NOTE | 2024-04-17 19:41 | ED.RN ---
report given to Gladis TURCIOS at [facility]
[2024-04-17 20:16] LABS: Prothrombin Time (Protime)PT. 13.6 SECONDS (11.7-14.9)
[2024-04-17 20:17] LABS: Partial Thromboplast Time 20.7 Seconds (24.1-36.2)
[2024-04-17] MEDS: HEPARIN/D5w 25,000 UNITS 25,000 UNITS/250 ML IV.SOLN. 7 UNITS CONT INF (20:30)
[2024-04-17] MEDS: Heparin Injection (Vial) 5,000 UNIT/ML VIAL 3500 UNIT IV (20:31)
== END 2024-04-17 20:43 | disposition short-term general hospital (02) ==
PROVIDERS: Emergency Provider Emergency Medicine; PCP Family Medicine; Visit Provider Emergency Medicine
DX: R07.89 Other chest pain (principal); Z93.3 Colostomy status; I11.0 Hypertensive heart disease with heart failure; I50.9 Heart failure, unspecified; I27.21 Secondary pulmonary arterial hypertension; I25.10 Atherosclerotic heart disease of native coronary artery without angina pectoris; E03.9 Hypothyroidism, unspecified; D47.2 Monoclonal gammopathy; I25.2 Old myocardial infarction; Z79.82 Long term (current) use of aspirin; Z79.02 Long term (current) use of antithrombotics/antiplatelets; Z79.899 Other long term (current) drug therapy; Z95.5 Presence of coronary angioplasty implant and graft
CPT/HCPCS: 71046; 80048; 83880; 84484; 85025; 85610; 85730; 93005; 96374; 99285; A4216

== ENCOUNTER → 2024-05-12 | Outpatient (CLI) | payer MEDICARE, SELFPAY ==
--- NOTE | 2024-05-12 09:32 | US_ITS ---
STUDY: ABDOMINAL ULTRASOUND - RIGHT UPPER QUADRANT; ELASTOGRAPHY REASON FOR VISIT: Female, 84 years old. Hepatic fibrosis. TECHNIQUE: Ultrasound evaluation of the right upper quadrant was performed with real-time and static cheatham-scale imaging. Point quantification shear wave elastography was performed ([employer]). TECHNICAL QUALITY: Adequate. COMPARISON: Comparison is made with prior study dated September 07, 2022. FINDINGS: Liver: The liver measures 17.6 cm. There is increased echogenicity consistent with mild degree of fatty infiltration. The bile ducts are within normal limits. There is hepatic color flow. The direction of portal flow is hepatopetal. There is no demonstrated mass lesion. Median liver stiffness measured 9 kPa. Gallbladder: The patient is status post cholecystectomy. Common Bile Duct (C.B.D.): The common bile duct measures 8 mm. Pancreas: There is normal echogenicity of the visualized pancreas. There is no demonstrated pancreatic mass or cyst. Right Kidney: Normal size of the right kidney. The right kidney measures 10 cm x 4.8 cm x 4.4 cm. Normal renal cortex. The right cortex measures 1.1 cm. There is no demonstrated renal mass or cyst. There is no right hydronephrosis. US/ABD Limited w/ Elastography IMPRESSION: 1. 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 Electronically Signed: Emeka England MD at 10:56 EDT ,
== END | disposition home or self-care (01) ==
LOC: US 09:29
PROVIDERS: PCP Family Medicine; Referring Provider Internal Medicine Medical Oncology; Visit Provider Internal Medicine Medical Oncology
DX: D47.2 Monoclonal gammopathy (principal); K75.4 Autoimmune hepatitis; R23.3 Spontaneous ecchymoses
CPT/HCPCS: 76705; 76981

== ENCOUNTER 2024-05-14 09:07 | Day surgery (SDC) | payer MEDICARE, SELFPAY ==
[2024-05-14] VITALS (7 sets, daily range): BP systolic 89–159; BP diastolic 44–63; PULSE 68–80; RESP 17–20; TEMP 36.3–37.1; O2SAT 95–100; BMI 32.3
--- NOTE | 2024-05-14 09:52 | PRE.ANES_ITS ---
ASA Classification* ASA Classification ASA Classification: 3 (SEE WRITTEN PRE ANESTHESIA RECORD FOR FULL ASSESSMENT) Assessment & Plan Anesthesia* Anesthesia Assessment Anesthesia Assessment: Discussed sedation and/or anesthesia options, risks, benefits, and alternatives with patient/parents/legal guardian/POA. Questions invited. The patient/parents/legal guardian/POA seems to understand and agrees to proceed with anesthesia plan. Reviewed the physical assessment, medical history, allergy history and patient home medications list prior to surgery/procedure/anesthetic and documented any changes. Performed airway and anesthesia risk assessments. Anesthesia Type Anesthesia Type: MAC (SEE WRITTEN PRE ANESTHESIA RECORD FOR FULL ASSESSMENT) Anesthesia Focused Assessment* Temperature: 97.6 F Pulse Rate: 80 Blood Pressure: 159/63 Respiratory Rate: 17 Pulse Ox: 100 Airway Assessment Mouth opens: >3 cm Mallampati Score: II Focused Labs Anesthesia Preop lab: CBC WBC 8.9 K/mm3 (4.4-11.0) 05/07/24 13:48 RBC 3.99 M/mm3 (4.2-5.4) L 05/07/24 13:48 Hgb 12.9 g/dL (12.0-15.0) 05/07/24 13:48 Hct 39.4 % (37-47) 05/07/24 13:48 Plt Count 143 K/mm3 (150-450) L 05/07/24 13:48 CHEMISTRY Potassium 4.0 mmol/L (3.5-5.1) 05/07/24 13:48 Sodium 134 mmol/L (136-145) L 05/07/24 13:48 Magnesium 2.0 mg/dL (1.6-2.6) 10/18/23 02:55 Phosphorus 3.8 mg/dL (2.5-4.9) 01/27/22 05:19 BUN 28 mg/dL (7-18) H 05/07/24 13:48 Creatinine 1.14 mg/dL (0.55-1.02) H 05/07/24 13:48 Glucose 146 mg/dL (74-106) H 05/07/24 13:48 TSH 1.97 uIU/mL (0.358-3.74) 12/11/23 16:04 COAG PT 13.6 SECONDS (11.7-14.9) 04/17/24 20:01 Pre-Assessment Diagnosis/Proposed Procedure Planned Operative Procedure(s): FLEXIBLE SIGMOIDOSCOPY Anesthesia History 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 05/13/24 08:47 TRANSFERRED TO [facility]. APR 2024, WENT TO [facility]. Any Problems With Anesthesia Yes: AFTER GALLBLADDER 05/13/24 08:47 DURING WAKE UP. STROKE IN EYE. Cholinesterase deficiency No 05/13/24 08:47 You/Your Family Experience No 05/13/24 08:47 fever (hyperthermia) with Relationship Recent Exposure to Contagious No 05/14/24 09:38 Disease Does patient have nerve No 05/13/24 08:47 stimulator Patient instructed to have device shut off --Does patient have Pacemaker or ICD? When Was Last Pacemaker Check QUESTION #4 FULL TEXT: You/Your Family Experience fever (hyperthermia) with Anesthesia Last Oral Intake Last Oral intake: Last Oral Intake NPO since 08:40 05/14/24 09:38 Meds taken in AM with sips of Yes 05/14/24 09:38 water? Meds patient instructed to ranazoline, protonix, 05/14/24 09:38 take am of surgery synrthoid,imdur,carvedilol PONV PONV - switchboard operator receptionist: PONV - switchboard operator receptionist Female Yes 05/13/24 08:47 HX of Motion Sickness No 05/13/24 08:47 HX of N/V After Surgery No 05/13/24 08:47 Non-Smoker Yes 05/13/24 08:47 Duration of Surgery greater No 05/13/24 08:47 than 60 minutes Number of Risk Factors 2 05/13/24 08:47 PONV Score Moderate Risk 05/13/24 08:47 Height & Weight Height & Weight: Anesthesia: Height & Weight Height 4 ft 1 in 05/14/24 09:38 Weight: 50 kg 05/14/24 09:38 Body Mass Index (BMI) 32.3 05/14/24 09:38 Respiratory Assessment Respiratory Assessment - switchboard operator receptionist: Respiratory Tract Infection Hx - switchboard operator receptionist Hx Respiratory Tract Infection No 05/13/24 08:47 STOP Sleep Apnea STOP Sleep Apnea - switchboard operator receptionist: STOP Sleep Apnea - switchboard operator receptionist Hx Hypertension Yes: CONTROLLED WITH MEDS 05/13/24 08:47 Hx Sleep Apnea No 05/13/24 08:47 CPAP No 03/13/23 13:20 BIPAP No 03/05/23 09:34 Do you snore loudly (louder Yes 05/13/24 08:47 than talking or can be heard Do you often feel tired/ No 05/13/24 08:47 fatigued/ sleepy during daytime? Has anyone observed you stop Yes 05/13/24 08:47 breathing during sleep? STOP Results Positive 05/13/24 08:47 QUESTION #5 FULL TEXT : Do you snore loudly (louder than talking or can be heard through closed doors)? 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 Specify any problems Hx of Preganancy in last 3 No 05/13/24 08:47 Months Nurse Filling Out Transfusion [email or web address] 05/13/24 08:47 & Questions: Date: 05/13/24 05/13/24 08:47 Time: 08:53 05/13/24 08:47 Patient unable to answer at this time (ie. confused, unrespo /Reproduction History /Reproductive History - switchboard operator receptionist: /Reproductive Hx- switchboard operator receptionist Hx Now No 05/13/24 08:47 Gestational Age (in weeks): EDC: Hx Hx Para Hx Section SAB No 05/13/24 08:47 PFSH Medical History MGUS (monoclonal gammopathy of unknown significance) Secondary adrenal insufficiency Loss of hearing Wears glasses History of Clostridium difficile infection Forgetfulness History of steroid therapy Walker as ambulation aid Bladder disease Low iron Fatty liver Easy bruising Dietary restriction Difficulty swallowing Difficulty chewing History of hiatal hernia Colostomy in place Gastric reflux History of edema History of echocardiogram Cardiology follow-up encounter History of CHF (congestive heart failure) History of irregular heartbeat Heart attack (~03/2022) Abdominal pain Bloating symptom Bright red blood per rectum Presence of stent in coronary artery (~04/06/22) Elevated troponin History of non-ST elevation myocardial infarction (NSTEMI) Nonrheumatic aortic (valve) stenosis with insufficiency Nonrheumatic mitral valve stenosis with insufficiency Pulmonary arterial hypertension Aortic insufficiency Severe mitral regurgitation Chronic hyponatremia Idiopathic thrombocytopenia Macular degeneration Lupus Rheumatic fever Hearing loss, right Hearing loss, left Hyperthyroidism Osteopenia Hepatitis Non-smoker Migraines Diverticulitis Adrenal insufficiency NASAL POLYP REMOVED History of left heart catheterization (LHC) (~03/27/22) 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 Tachycardia Heart disease Glaucoma Hypothyroidism Monoclonal gammopathies Hypertension Home Medications ?Medication ?Instructions ?Recorded ?Last Taken ?Type hydroxychloroquine 200 mg tablet 200 mg PO DAILYCM lupus 06/23/17 05/13/24 History levothyroxine 75 mcg tablet 75 mcg PO DAILY thyroid 06/23/17 05/14/24 History cholecalciferol (vitamin D3) 50 2,000 unit PO DAILY SUPPLEMENT 07/30/19 05/13/24 History mcg (2,000 unit) capsule buvnai-emlhyfyj-fcvwtch 1 cap PO 4X/DAY enzymes 04/29/21 05/13/24 History 12,000-38,000-60,000 unit capsule,delayed rel (Creon) bimatoprost 0.01 % eye drops 1 drp EACH EYE [facility] 01/11/22 05/13/24 History (Lumigan) atorvastatin 40 mg tablet 40 mg PO DAILY 05/04/22 05/13/24 History clopidogrel 75 mg tablet (Plavix) 75 mg PO DAILY 05/04/22 05/10/24 History ferrous sulfate 325 mg (65 mg 325 mg PO Q OTHER DAY 05/24/22 05/13/24 History iron) tablet Lactobacillus acidophilus 10 10,000 mmu cells PO DAILY IMMUNE 07/13/22 05/13/24 History billion cell capsule (Probiotic) HEALTH aspirin 81 mg tablet,delayed 81 mg PO DAILY 07/13/22 05/10/24 History release (Adult Low Dose Aspirin) cyanocobalamin (vitamin B-12) 100 100 mcg PO DAILY 07/13/22 05/13/24 History mcg tablet pantoprazole 40 mg tablet,delayed 20 mg PO Q12H 11/15/22 05/14/24 History release potassium chloride 10 mEq 10 meq PO DAILY SUPPLEMENT' 11/28/22 Unknown History tablet,extended release(part/cryst) hydrocortisone 10 mg tablet 10 mg PO DAILY #90 tabs 04/26/23 05/13/24 Rx carvedilol 3.125 mg tablet 3.125 mg PO Q12H 06/12/23 05/14/24 History carvedilol 6.25 mg tablet 6.25 mg PO Q12H 06/12/23 05/14/24 History isosorbide mononitrate 30 mg 15 mg PO DAILY 06/12/23 05/14/24 History tablet,extended release 24 hr budesonide 3 mg 3 mg PO DAILY inflammation #30 ea 03/20/24 05/13/24 Rx capsule,delayed,extended release torsemide 20 mg tablet 20 mg PO QDAY 03/28/24 05/13/24 History brimonidine 0.15 % eye drops 1 drp EACH EYE BID eye drops 05/07/24 05/13/24 History ranolazine 1,000 mg 500 mg PO BID 05/07/24 05/14/24 History tablet,extended release,12 hr ranolazine 500 mg tablet,extended 500 mg PO BID 05/13/24 Unknown History release,12 hr Allergy/AdvReac Type Severity Reaction Status Date / Time Penicillins (PCN) Allergy Hives Verified 05/14/24 09:36 Sulfa (Sulfonamide AdvReac Severe Rash Verified 05/14/24 09:36 Antibiotics) griseofulvin (From Priti-PEG AdvReac Intermediate Other Verified 05/14/24 09:36 (ultramicrosize)) azathioprine (From Imuran) AdvReac Vomiting Verified 05/14/24 09:36 colchicine AdvReac Other Verified 05/14/24 09:36 doxycycline AdvReac Rash Verified 05/14/24 09:36 famotidine (From Pepcid) AdvReac Other Verified 05/14/24 09:36 Family History Father Heart disease Pacemaker Mother Heart disease Brother Myocardial infarction Sister Myocardial infarction Heart disease Surgical History H/O colonoscopy History of sinus surgery H/O dilation and curettage Presence of coronary angioplasty implant and graft Status post colon resection (~12/2021) h/o mass removed from hip H/O cataract extraction H/O tubal ligation Hx of cholecystectomy Social History household members: spouse number of children: 5 current occupational status: retired Smoking Status: Never smoker alcohol intake: never substance use type: does not use caffeine: No additional social history: Barbara Sanford-Daughter- Manages Medical care Review of Systems (Anesthesia) ROS Narrative System reviewed and no additional complaints, except as documented.
[2024-05-14] MEDS: Lactated Ringers 1,000 ML 999 ML IV (09:55)
--- NOTE | 2024-05-14 10:16 | PCM.HP.BLA ---
History and Physical Date of Admission: 05/14/24 TESFAYE VALENCIA, is a 84 F who presents to the office today for follow up. Hospitalization 2014 and .05.02-06.15.18 ([facility]) for GIB management. Colonoscopy 05.28.18 [facility]?3mm sessile polyp of ascending colon; two sessile polyps of transverse colon; 5mm polyp of descending colon; diverticulosis; bleeding internal hemorrhoids. CT abd/pel 04.06.22 [facility]?normal liver; fatty liver with portosystemic shunt; mildly atrophic pancreas. US 07.11.22 [facility]?normal liver, normal pancreas. Hospitalization , , for diverticulitis management Hospitalization for management of [facility] Hospitalization 01.11.22-01.21.22 with transfer to TCU and discharge 02.25.22 for management of acute diverticulitis with sigmoid perforation. Exploratory laparotomy 01.11.22?purulent fluid in pelvis; acutely inflamed descending/sigmoid colon with tics and perforation of distal descending colon; numerous thin adhesions; colostomy placed. [facility] OV 07.11.22 as follow up for observation of MGUS and lupus. WSA OV .10.05 with stomal bleed concern and bloating. Colostomy placed for history of perforated diverticulitis. [facility] hospitalization 11.01.22-11.06.22 for idiopathic chronic pancreatitis, myocardial injury and incomplete emptying of bladder. NG tube placed for nausea management. PCP OV 11.09.22 to establish care following [facility] hospitalization. Known history of EPI with recent concern to abdominal distention, malabsorption and ischemic gut. Also referred to Dr. Dougherty, vascular. ?KUB 09.04.22?left sided colostomy. ?US RUQ 09.07.22?ascites evaluation, WNL. ?CT abd/pel 09.12.22?s/p aortic valve replacement; chronic pancreatitis; colostomy; normal liver; uterine fibroid. *BGI established 03.23.23 with bloating and abdominal pain as primary concern ?Biochemical?ESR, haptoglobin, LDH, ferritin, Iron, TIBC, iron, RAST, GAME without pertinent abnormality ? Retic H3.09, G(H1714)A(L17)M(L14)E(L<2) ILIA +, cANCA H1:20, SSA H>8, endomysial ab+ CT pancreatic protocol 04.03.23?fatty replacement of pancreas with scattered calcifications consistent with chronic pancreatitis; multiple subcentimeter cystic lesions in pancreatic tail without mass; LLQ colostomy. Contact attempted 04.09.23 for result review; no answer, no VM ?MRCP 04.13.23??mild pancreatic tail edema; small hiatal hernia ?GET 04.20.23?65.78 minutes (12-56) Contact 07.18.23 with results. After detailed explanation of celiac disease and presentation the agreed plan is to attempt gluten free for several weeks; if ineffective will call back to schedule additional testing. OV 09.12.23- Pt reports that she has gut out some Gluten from diet but not completely. Complains of upper abdominal discomfort and gas. OV 03.28.24 pt reports that she has occasional bloating and hb. Pt reports another KS on March 06 of this year. ROS Const Constitutional: Positive for fatigue and weakness; No fever(s) or weight change ENT ENT: No difficulty swallowing Gastro GI: Positive for bloating, heartburn and excessive flatus; No abdominal pain, belching, change in bowel habits, change in stool character, coffee ground emesis, constipation, cramping, diarrhea, difficulty swallowing, feeling full early, incontinent of stools, Vomiting blood/hematemesis, Blood in stool, loose stools, Black,tarry stools, nausea/dyspepsia, pain with swallowing, vomiting or other Musc Musculoskeletal: Positive for joint pain, joint swelling, muscle weakness, stiffness and Arthritis Skin Skin: Positive for dry skin; No yellowing of the eye or itchy eyes Neuro Neurology: Positive for weakness Psych Psychiatric: No anxiety and No depression Endo Endocrine: Positive for fatigue; No weight change Aller/Imm Allergy/Immunologic: No itchy eyes Vu/Lymp Hematologic/Lymphatic: Positive for easy bleeding and easy bruising Exam Const General: cooperative, comfortable, no acute distress, well developed, not cushingoid and frail appearing Nutritional Appearance: well nourished Orientation: alert, awake and oriented x3 Other: extensive skin bruising and atrophy HENMT Head: normal to inspection Ears: hearing grossly normal bilaterally Nose: external nose normal Mouth: oral mucosae normal Eyes General: appearance normal, both eyes and all related structures Alignment and Position: alignment normal Periorbital: periorbital findings normal Eyelids: eyelids normal Conjunctivae: conjunctivae normal Neck Neck: normal visual inspection Neck mass: No Lymphatic: no lymphadenopathy noted Chest Chest palpation & inspection: normal inspection of the chest Resp Effort & Inspection: normal respiratory effort, able to speak in complete sentences, symmetric chest movement, no audible wheezes and no cough Cardio Rate: regular rate Rhythm: regular rhythm Skin General: no rashes or lesions noted Neuro General: patient alert, patient awake and patient oriented x3 Cranial Nerves: CN's II-XI intact bilaterally Cognition: normal cognition Speech: speech normal Gait: normal gait Motor: muscle tone normal throughout Psych Appearance: grossly normal Mental Status: mental status grossly normal Mood: congruent mood Affect: normal affect Speech and Movement: speech and movement normal Attitude: cooperative Thought Process: normal Thought Content: normal Judgment: judgment good Assessment and Plan Assessment and Plan (1) Autoimmune pancreatitis: Status: Acute Plan: Her IgG level was elevated and the typical treatment is steroids and or azathioprine which she is already on for autoimmune hepatitis. I would not change that dosing at this time. She will need TMP T testing (2) Celiac disease: Status: Acute Plan: Her antigliadin antibody and antiendomysial antibodies were positive for celiac disease. Recommend gluten-free diet. 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 I suspect that she does have Sjogren's syndrome. This will need to be discussed with her clay molder. (4) Chronic mesenteric ischemia: Status: Chronic Plan: 83year-old female that presents here for the chief complaint of bloating. She has a complex cardiovascular disease with a history of CAD, non-ST segment elevation KS, subsequent PTCA/stent ([facility]), aortic valve stenosis, mitral valve regurgitation, atrial fibrillation, hyperlipidemia, and hypertension. She is accompanied by her daughter. h/o MGUS, lupus, comes in for follow up. She has occasional joint pains. Remains on observation for MGUS. She has been diagnosed with Autoimmune hepatitis and had bowel obstruction needing a colostomy. She has been having bloating and intermittent abdominal pain. She also has a history of idiopathic pancreatitis. We will need to perform biochemical testing and possible a CT scan with pancreatic protocol to look at her pancreas to make sure that it is no ductal dilation or stone disease affecting the pancreatic tree. She will also need a MRCP so we can see if there is any sign of pancreatic divisum that would be contributing to her symptoms. Peptic ulcer disease is on the differential diagnosis but she is also taking Carafate and she is taking PPI therapy. She had an emergent gynecologic procedure and stopped her antiplatelet therapy during that surgery. I do not want to stop her antiplatelet medicine if its not needed. She will need biochemical testing, gastric emptying study, CT with pancreatic protocol and MRCP to look for pancreatic divisum. She did have the MRCP and it showed mild edema in the tail of the pancreas without any focal lesion. There was no biliary dilation or choledocholithiasis. She still needs CT scan with pancreatic protocol. (5) History of pancreatitis: Status: Acute Plan: Unknown etiology to her pancreatitis at this time. (6) Pancreatic insufficiency: Status: Acute Plan: She did undergo pancreatic elastase and it was very low so she was started on Creon therapy and she is having no side effects from it. (7) Gastroparesis: Status: Acute Plan: She has believed to be chronic idiopathic gastroparesis identified by gastric emptying study that was twice the upper limit of normal. It could be from medications. She will need an official 4-hour study if she does not do well with a gastroparesis diet. Orders: Orders CBC W/Diff, Automated Today D64.9 - Anemia, unspecified, K86.1 - Other chronic pancreatitis, K90.0 - Celiac disease, M35.00 - Sjogren syndrome, unspecified Ferritin Today D64.9 - Anemia, unspecified, K86.1 - Other chronic pancreatitis, K90.0 - Celiac disease, M35.00 - Sjogren syndrome, unspecified ILIA + Protein Elect, Serum Today K86.1 - Other chronic pancreatitis, K90.0 - Celiac disease, M35.00 - Sjogren syndrome, unspecified Iron Binding Capacity,Total Today D64.9 - Anemia, unspecified, K86.1 - Other chronic pancreatitis, K90.0 - Celiac disease, M35.00 - Sjogren syndrome, unspecified Retic Panel Count Today K86.1 - Other chronic pancreatitis, K90.0 - Celiac disease, M35.00 - Sjogren syndrome, unspecified Iron Today D64.9 - Anemia, unspecified, K86.1 - Other chronic pancreatitis, K90.0 - Celiac disease, M35.00 - Sjogren syndrome, unspecified LDH Today K86.1 - Other chronic pancreatitis, K90.0 - Celiac disease, M35.00 - Sjogren syndrome, unspecified Celiac Disease Profile Today K86.1 - Other chronic pancreatitis, K90.0 - Celiac disease, M35.00 - Sjogren syndrome, unspecified (8)Mucus and discharge per rectum-this is likely secondary to diversion colitis. She will undergo flexible sigmoidoscopy.
--- NOTE | 2024-05-14 10:30 | COLBX_PTH ---
PATIENT: LIANA VALENCIA LOC: EN U#:[id number] AGE/SX: 84/F ROOM: RE05/14/[address]: Dr. Nicholas Wren DO : 1940 BED: DIS: 05/14/2024 SPEC #: [id number] RECD: 05/14/24 14:53 STATUS: SRIRAM RECaitlin #: [id number] JOSSELYN: 05/14/24 10:[address]: Nicholas Wren DEPT: SURGICAL PATHOLOGY RECD BY: Talib Allen ENTERED: 05/15/24 07:43 SP TYPE: COLON BX OTHR DR: Dr. Ashvin Cardenas MD Tissues: Sigmoid colon biopsy Procedures: Surgery Specimen Level IV HEADER OPERATION: Flexible sigmoidoscopy with biopsy PRE-OP DIAGNOSIS: History of colon resection TISSUE SUBMITTED: Sigmoid colon biopsy MICROSCOPIC DIAGNOSIS Sigmoid colon, biopsy: Moderate chronic active colitis. See geoff. 05/16/2024 COMMENT Focal cryptitis is noted. Crypt abscesses, glandular distortion or granulomas are not seen. Correlation with clinical, endoscopic findings and appropriate follow up are necessary. MICROSCOPIC DESCRIPTION Slides are reviewed. GROSS DESCRIPTION Received in fixative is one container labeled with the patient's name and designated Sigmoid colon biopsy. The specimen consists of one irregular fragment of light cox soft tissue that measures 0.4 x 0.1 x 0.1 cm. The specimen is totally submitted in one cassette. 05/15/2024 TC:2 CPT:18993
--- NOTE | 2024-05-14 11:25 | OP.FLEXSIG_ITS ---
Patient Name: Pamela Espinoza Procedure Date: 05/14/2024 10:54 AM Date of : 1940 Age: 84 Procedure: Flexible Sigmoidoscopy Indications: Hematochezia, Abnormal CT of the GI tract Providers: Nicholas Wren DO Referring MD: Ashvin Cardenas Medicines: Monitored Anesthesia Care Patient Profile: This is an 84 year old female. Refer to note in patient chart for documentation of history and physical. Patient has symptoms of acute episode of bloody stool, chronic episodes of bloody stool and chronic episodes of watery stool. Complications: No immediate complications. Procedure: Pre-Anesthesia Assessment: - Prior to the procedure, a History and Physical was performed, and patient medications and allergies were reviewed. The patient is competent. The risks and benefits of the procedure and the sedation options and risks were discussed with the patient. All questions were answered and informed consent was obtained. Patient identification and proposed procedure were verified by the physician in the pre-procedure area. Mental Status Examination: alert and oriented. Airway Examination: normal oropharyngeal airway and neck mobility. Respiratory Examination: clear to auscultation. CV Examination: normal. Prophylactic Antibiotics: The patient does not require prophylactic antibiotics. Prior Anticoagulants: The patient has taken no anticoagulant or antiplatelet agents except for NSAID medication. ASA Grade Assessment: III - A patient with severe systemic disease. After reviewing the risks and benefits, the patient was deemed in satisfactory condition to undergo the procedure. The anesthesia plan was to use monitored anesthesia care (MAC). Immediately prior to administration of medications, the patient was re-assessed for adequacy to receive sedatives. The heart rate, respiratory rate, oxygen saturations, blood pressure, adequacy of pulmonary ventilation, and response to care were monitored throughout the procedure. The physical status of the patient was re-assessed after the procedure. After obtaining informed consent, the endoscope was passed under direct vision. Throughout the procedure, the patient's blood pressure, pulse, and oxygen saturations were monitored continuously. The was introduced through the anus and advanced to the sigmoid colon. The flexible sigmoidoscopy was accomplished without difficulty. The patient tolerated the procedure well. No bowel preparation was given prior to the procedure. The quality of visualization was adequate. Scope In: 11:10:36 AM Scope Out: 11:15:30 AM Total Procedure Duration Time 0 hours 4 minutes 54 seconds Findings: Hemorrhoids were found on perianal exam. Diffuse moderate mucosal changes characterized by erythema, friability and mucus were found in the rectum, in the recto-sigmoid colon and in the sigmoid colon. Biopsies were taken with a cold forceps for histology. Verification of patient identification for the specimen was done. Estimated blood loss was minimal. Impression: - Hemorrhoids found on perianal exam. - Diffuse moderate mucosal changes were found in the rectum, in the recto-sigmoid colon and in the sigmoid colon secondary to colitis. Biopsied. Recommendation: Treatment for diversion colitis (DC) depends on the severity of the condition and whether surgery is an option: -Surgery : The most effective treatment is surgical reanastomosis, which restores the fecal stream by reversing the ostomy procedure. This is the preferred treatment for symptomatic patients. -Medical treatment: If surgery isn't an option, medical treatment may include: Short-chain fatty acid (SCFA) enemas 5-aminosalicylic acid (5-ASA) Glucocorticoids Synbiotics Procedure Code(s): --- Professional --- 78036, Sigmoidoscopy, flexible; with biopsy, single or multiple CPT copyright 2021 [employer]. All rights reserved. The codes documented in this report are preliminary and upon youth development professional review may be revised to meet current compliance requirements. Nicholas Wren DO 05/14/2024 11:24:53 AM This report has been signed electronically. Number of Addenda: 0 Note Initiated On: 05/14/2024 10:54 AM
--- NOTE | 2024-05-14 11:25 | OP.CCLET_ITS ---
05/14/2024 Ashvin Cardenas [address] [place] [address] Re : Flexible Sigmoidoscopy procedure for Pamela Espinoza Dear Dr. Cardenas This procedure was performed on Tuesday, May 14, 2024. My impressions and recommendations are as follows: Impressions : - Hemorrhoids found on perianal exam. - Diffuse moderate mucosal changes were found in the rectum, in the recto-sigmoid colon and in the sigmoid colon secondary to colitis. Biopsied. Recommendations : Treatment for diversion colitis (DC) depends on the severity of the condition and whether surgery is an option: -Surgery : The most effective treatment is surgical reanastomosis, which restores the fecal stream by reversing the ostomy procedure. This is the preferred treatment for symptomatic patients. -Medical treatment: If surgery isn't an option, medical treatment may include: Short-chain fatty acid (SCFA) enemas 5-aminosalicylic acid (5-ASA) Glucocorticoids Synbiotics My findings are described in the full procedure note, which is enclosed. If I can be of further assistance, please feel free to contact me at . Sincerely, Nicholas Wren DO 05/14/2024 11:24:53 AM This report has been signed electronically.
--- NOTE | 2024-05-14 11:29 | PCM.POST.ANE ---
Anesthesia: Postop Eval I Current Vital Signs Temperature: 97.4 F Pulse Rate: 68 Blood Pressure: 99/44 Respiratory Rate: 18 Pulse Ox: 97 Oxygen Delivery Method: Room Air Assessment Airway patent: Yes Spontaneous unlabored respirations: Yes Mental status: Asleep nausea: No Vomiting: No Anesthesia Complication: No Fluid Hydration Crystalloid volume administer (ml): 600 Total IV fluid infused: 600 Progress Note Anesthesia document: Postop Eval 1 completed: Yes
== END 2024-05-14 12:33 | disposition home or self-care (01) ==
LOC: EN 09:07 → AC 09:09
PROVIDERS: PCP Family Medicine; Referring Provider Family Medicine; Visit Provider Internal Medicine Gastroenterology
PROC: 0DJD8ZZ Inspection of Lower Intestinal Tract, Via Natural or Artificial Opening Endoscopic (ICD-10-PCS; CPT 45330; principal; 2024-05-14 10:25)
DX: K52.9 Noninfective gastroenteritis and colitis, unspecified (principal); Z93.3 Colostomy status; K86.1 Other chronic pancreatitis; K75.4 Autoimmune hepatitis; K64.4 Residual hemorrhoidal skin tags; K90.0 Celiac disease; M35.00 Sjogren syndrome, unspecified; I25.10 Atherosclerotic heart disease of native coronary artery without angina pectoris; Z95.5 Presence of coronary angioplasty implant and graft; E78.5 Hyperlipidemia, unspecified; I10 Essential (primary) hypertension; K55.1 Chronic vascular disorders of intestine; K31.84 Gastroparesis; Z79.82 Long term (current) use of aspirin; Z79.02 Long term (current) use of antithrombotics/antiplatelets; Z79.890 Hormone replacement therapy; Z79.899 Other long term (current) drug therapy; E05.90 Thyrotoxicosis, unspecified without thyrotoxic crisis or storm; Z90.49 Acquired absence of other specified parts of digestive tract
CPT/HCPCS: 45331; 88305; J7120; A4216; J2405

== ENCOUNTER 2024-05-29 06:17 | Observation (INO) | payer MEDICARE, SELFPAY ==
[2024-05-29] VITALS (17 sets, daily range): BP systolic 137–171; BP diastolic 54–111; PULSE 68–95; RESP 14–22; TEMP 36.3–37.3; O2SAT 88–98; BMI 32.5; BMI 22.6
--- NOTE | 2024-05-29 06:42 | RAD_ITS ---
EXAM: XR CHEST, 1 VIEW CLINICAL INDICATION: chest pain TECHNIQUE: Frontal view of the chest. COMPARISON: Two-view chest 04/17/2024 FINDINGS: LUNGS AND PLEURAL SPACES: Unremarkable. No consolidation or edema. No pneumothorax. No effusion. HEART: Moderate enlargement of the cardiac silhouette. MEDIASTINUM: Central airways and mediastinal contour are unremarkable. BONES/JOINTS: Unremarkable. No acute fracture. SOFT TISSUES: Unremarkable. RAD/Chest 1 View (Portable) IMPRESSION: No acute findings in the chest. Electronically Signed: Joe Sharma MD at 7:50 EST ,
--- NOTE | 2024-05-29 06:42 | EKG12_ITS ---
Test Reason : CP Blood Pressure : */* mmHG Vent. Rate : 82 BPM Atrial Rate : 82 BPM P-R Int : 154 ms QRS Dur : 90 ms QT Int : 402 ms P-R-T Axes : 44 11 22 degrees QTcB Int : 469 ms Normal sinus rhythm Possible Left atrial enlargement Nonspecific ST abnormality Abnormal ECG Confirmed by WALE COELLO, JAYDON ([id number]), restaurant expeditor [address] ([id number]) on 06/03/2024 7:47:35 AM Referred By: Confirmed By: JAYDON ECHEVARRIA MD
[2024-05-29] MEDS: Ondansetron 4 MG/2 ML Vial IV ×2 (06:52→14:12)
[2024-05-29 06:59] LABS: Absolute Lymphocyte Count 1.57 X10^3/uL (0.83-4.51); Absolute Neutrophil Count 11.2 X10^3/uL (2.0-7.7); Basophil# 0.05 X10^3/uL; Basophil% 0.4 % (0-1); Eosinophil# 0.07 X10^3/uL; Eosinophils% 0.5 % (0-5); Hemoglobin 14.4 g/dL (12.0-15.0); Lymphocyte # 1.57 X10^3/ul (0.83-4.51); Lymphocyte % 11.6 % (19-41); Mean Corp Hgb Conc 34.3 g/dL (32-36); Mean Corpuscular Volume 96.1 fL (81-99); Mean Platelet Vol. 9.9 fl (6.2-12.0); Monocyte# 0.45 X10^3/uL; Monocyte% 3.3 % (0-10); NRBC Flagged by Analyzer 0 % (0-5); Neutrophil # 11.15 X10^3/uL (2.7-7.7); Neutrophil % 82.8 % (47-70); Platelet Count 141 K/mm3 (150-450); RBC Distribution Width CV 16.5 % (11.6-14.6); RBC Distribution Width SD 58.6 fl (35.1-43.9); Red Blood Count 4.37 M/mm3 (4.2-5.4); White Blood Count 13.5 K/mm3 (4.4-11.0)
[2024-05-29 07:22] LABS: Anion Gap 7 (5-15); BUN 24 mg/dL (7-18); BUN/Creat Ratio 22.4 RATIO (10-20); Chloride 104 mmol/L (98-107); Creatinine, Serum 1.07 mg/dL (0.55-1.02); EST Glomerular Filtration Rate 52 mL/min (>60); Est Glom Filt Rate - Afr Amer 63 mL/min (>60); Estimated Creatinine Clearance 28.11 ml/min; Glucose 96 mg/dL (74-106); Potassium 3.5 mmol/L (3.5-5.1); Sodium Level 139 mmol/L (136-145); Troponin-I HS 35 pg/mL (3.0-54.0)
--- NOTE | 2024-05-29 07:39 | EX.ED.DYSGE1 ---
HPI History of Present Illness Chief Complaint: Chest Pain Informant: patient and family Narrative Narrative: Patient is an 84-year-old female with past med history of coronary disease status post stent placement in 2021. She also has a history of proximal atrial fibrillation and is currently on Plavix and aspirin. 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 She reports she went to bed feeling normal and then awoke with midsternal chest discomfort with a sensation of nausea and heartburn. She states her previous heart attack presented in a similar manner and as symptoms were not resolving after roughly 1 hour notified family which then called EMS and she was brought in for evaluation. Of note the patient states upon arrival her chest pain has resolved but she still feels slightly nauseous [facility] Medical History MGUS (monoclonal gammopathy of unknown significance) Secondary adrenal insufficiency Loss of hearing Wears glasses History of Clostridium difficile infection Forgetfulness History of steroid therapy Walker as ambulation aid Bladder disease Low iron Fatty liver Easy bruising Dietary restriction Difficulty swallowing Difficulty chewing History of hiatal hernia Colostomy in place Gastric reflux History of edema History of echocardiogram Cardiology follow-up encounter History of CHF (congestive heart failure) History of irregular heartbeat Heart attack (~03/2022) Abdominal pain Bloating symptom Bright red blood per rectum Presence of stent in coronary artery (~04/06/22) Elevated troponin History of non-ST elevation myocardial infarction (NSTEMI) Nonrheumatic aortic (valve) stenosis with insufficiency Nonrheumatic mitral valve stenosis with insufficiency Pulmonary arterial hypertension Aortic insufficiency Severe mitral regurgitation Chronic hyponatremia Idiopathic thrombocytopenia Macular degeneration Lupus Rheumatic fever Hearing loss, right Hearing loss, left Hyperthyroidism Osteopenia Hepatitis Non-smoker Migraines Diverticulitis Adrenal insufficiency NASAL POLYP REMOVED History of left heart catheterization (LHC) (~03/27/22) 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 Tachycardia Heart disease Glaucoma Hypothyroidism Monoclonal gammopathies Hypertension Home Medications ?Medication ?Instructions ?Recorded ?Last Taken ?Type hydroxychloroquine 200 mg tablet 200 mg PO DAILYCM lupus 06/23/17 05/13/24 History levothyroxine 75 mcg tablet 75 mcg PO DAILY thyroid 06/23/17 05/14/24 History cholecalciferol (vitamin D3) 50 2,000 unit PO DAILY SUPPLEMENT 07/30/19 05/13/24 History mcg (2,000 unit) capsule [id number] 1 cap PO 4X/DAY enzymes 04/29/21 05/13/24 History 12,000-38,000-60,000 unit capsule,delayed rel (Creon) bimatoprost 0.01 % eye drops 1 drp EACH EYE [facility] 01/11/22 05/13/24 History (Lumigan) atorvastatin 40 mg tablet 40 mg PO DAILY 05/04/22 05/13/24 History clopidogrel 75 mg tablet (Plavix) 75 mg PO DAILY 05/04/22 05/10/24 History ferrous sulfate 325 mg (65 mg 325 mg PO Q OTHER DAY 05/24/22 05/13/24 History iron) tablet Lactobacillus acidophilus 10 10,000 mmu cells PO DAILY IMMUNE 07/13/22 05/13/24 History billion cell capsule (Probiotic) HEALTH aspirin 81 mg tablet,delayed 81 mg PO DAILY 07/13/22 05/10/24 History release (Adult Low Dose Aspirin) cyanocobalamin (vitamin B-12) 100 100 mcg PO DAILY 07/13/22 05/13/24 History mcg tablet pantoprazole 40 mg tablet,delayed 20 mg PO Q12H 11/15/22 05/14/24 History release potassium chloride 10 mEq 10 meq PO DAILY SUPPLEMENT' 11/28/22 Unknown History tablet,extended release(part/cryst) hydrocortisone 10 mg tablet 10 mg PO DAILY #90 tabs 04/26/23 05/13/24 Rx carvedilol 3.125 mg tablet 3.125 mg PO Q12H 06/12/23 05/14/24 History carvedilol 6.25 mg tablet 6.25 mg PO Q12H 06/12/23 05/14/24 History isosorbide mononitrate 30 mg 15 mg PO DAILY 06/12/23 05/14/24 History tablet,extended release 24 hr torsemide 20 mg tablet 20 mg PO QDAY 03/28/24 05/13/24 History brimonidine 0.15 % eye drops 1 drp EACH EYE BID eye drops 05/07/24 05/13/24 History ranolazine 1,000 mg 500 mg PO BID 05/07/24 05/14/24 History tablet,extended release,12 hr ranolazine 500 mg tablet,extended 500 mg PO BID 05/13/24 Unknown History release,12 hr budesonide 3 mg 3 mg PO DAILY inflammation #30 ea 05/19/24 Unknown Rx capsule,delayed,extended release hydrocortisone acetate 25 mg 25 mg [place] QHS 30 days #30 ea 05/22/24 Unknown Rx rectal suppository mineral oil 118 ml AZ QDAY constipation 30 05/22/24 Unknown Rx days #3,540 mL Allergy/AdvReac Type Severity Reaction Status Date / Time Penicillins (PCN) Allergy Hives Verified 05/29/24 06:18 Sulfa (Sulfonamide AdvReac Severe Rash Verified 05/29/24 06:18 Antibiotics) griseofulvin (From Priti-PEG AdvReac Intermediate Other Verified 05/29/24 06:18 (ultramicrosize)) azathioprine (From Imuran) AdvReac Vomiting Verified 05/29/24 06:18 colchicine AdvReac Other Verified 05/29/24 06:18 doxycycline AdvReac Rash Verified 05/29/24 06:18 famotidine (From Pepcid) AdvReac Other Verified 05/29/24 06:18 Family History Father Heart disease Pacemaker Mother Heart disease Brother Myocardial infarction Sister Myocardial infarction Heart disease Surgical History H/O colonoscopy History of sinus surgery H/O dilation and curettage Presence of coronary angioplasty implant and graft Status post colon resection (~12/2021) h/o mass removed from hip H/O cataract extraction H/O tubal ligation Hx of cholecystectomy Social History household members: spouse number of children: 5 current occupational status: retired Smoking Status: Never smoker alcohol intake: never substance use type: does not use caffeine: No additional social history: Barbara Sanford-Daughter- Manages Medical care ROS ROS ED Constitutional Constitutional ED: Denies chills or fever(s) Eyes Eyes: Denies blurry vision or change in vision ENT ENT ED: Denies sore throat Cardiovascular Cardiovascular: Reports chest pain and racing heartbeat; Denies palpitations Respiratory/Chest Respiratory/Chest: Denies cough or dyspnea Gastrointestinal Gastrointestinal: Denies abdominal pain, diarrhea, nausea or vomiting Genitourinary Genitourinary ED: Denies dysuria Musculoskeletal Musculoskeletal: Denies back pain Integumentary Denies rash Neurologic Neurologic: Denies headache(s) Hematologic/Lymphatic Hematologic/Lymphatic: Reports easy bleeding and easy bruising EXAM Physical Exam Const Vital Signs: 05/29/24 06:17 05/29/24 06:17 05/29/24 07:48 Temperature 97.8 F Temperature Source Oral Pulse Rate 86 81 Respiratory Rate 17 16 Respiratory Effort Normal Non-Labored Blood Pressure 137/111 H 149/54 H Blood Pressure Mean 119 85 Pulse Ox 95 95 Oxygen Delivery Method Room Air Positive well nourished and well developed General Appearance ED: well developed HEENT HEENT Narrative: Normocephalic atraumatic Eyes PERRL and EOMs intact bilaterally General Eye ED: Negative for scleral icterus Neck supple and no JVD Chest Wall palpation of chest normal Chest Narrative: No obvious bony deformity or crepitance noted Resp normal respiratory effort and clear to auscultation bilaterally Resp Narrative: No nasal flaring retractions tachypnea or accessory muscle use Cardio regular rate and regular rhythm Rate: other Other Details: Heart is regular rate and rhythm with a grade 3 out of 6 systolic murmur Radial and carotid pulses are equal and symmetric GI normal to inspection, nondistended, normoactive bowel sounds, non-tender, non-distended and no masses GI Narrative: Colostomy in place in the left mid abdomen draining brown stool. Abdomen is soft and nontender with normal active bowel sounds no voluntary guarding or rigidity or pulsatile mass Auscultation: normoactive bowel sounds Palpation: soft Extremity normal to inspection Extremity Narrative: No asymmetric edema no pitting edema negative Homans' sign bilaterally Neuro oriented x3, CN's II-XII intact bilaterally and no sensory deficits noted Sensorium / Orientation: alert Motor Exam: strength 5/5 throughout Psych mental status grossly normal Skin no rashes or lesions noted General Skin Exam: Negative for jaundice MDM MDM MDM Narrative Medical decision making narrative: Patient arrived to the ER hypertensive but otherwise with stable vitals. She reported improvement of her symptoms without any type of medication. However she does have a history of known CAD and therefore with concern for acute coronary syndrome versus cardiac dysrhythmia versus lung pathology such as pneumonia or pneumothorax a basic workup was obtained. Initial troponin is normal at 35 with chart review reveals was the same initial value in April of this year. Chest x-ray reveals no acute lung pathology. She has been kept on the monitor and there has been no true cardiac dysrhythmia noted. Therefore at this time I feel that the patient having spontaneous resolution of her pain after delta troponin does not elevate then she will be otherwise safe for discharge. At this time the patient's delta troponin is still pending and therefore should be signed out to the day physician Dr. Renteria History & Record Review Discussion w/independent historian: Patient and Family Lab Data Attestation: I reviewed the patient's lab results. Labs: Laboratory Results - last 24 hr 05/29/24 06:53 WBC 13.5 H RBC 4.37 Hgb 14.4 Hct 42.0 MCV 96.1 MCH 33.0 H MCHC 34.3 RDW Std Deviation 58.6 H RDW Coeff of Samreen 16.5 H Plt Count 141 L MPV 9.9 Immature Gran % (Auto) 1.400 H Neut % (Auto) 82.8 H Lymph % (Auto) 11.6 L [place] % (Auto) 3.3 Eos % (Auto) 0.5 Baso % (Auto) 0.4 Absolute Neuts (auto) 11.2 H Absolute Lymphs (auto) 1.57 Nucleated RBC % 0 Sodium 139 Potassium 3.5 Chloride 104 Carbon Dioxide 28.0 Anion Gap 7 BUN 24 H Creatinine 1.07 H Estim Creat Clear Calc 28.11 Est GFR (MDRD) Af Amer 63 Est GFR (MDRD) Non-Af 52 L BUN/Creatinine Ratio 22.4 H Glucose 96 Calcium 9.0 Magnesium 2.0 Total Bilirubin 1.00 Direct Bilirubin 0.23 AST 27 ALT 36 Alkaline Phosphatase 63 Troponin I High Sens 35 Total Protein 7.5 Albumin 3.7 Globulin 3.8 Lipase 24 Radiography Diagnostic Testing: Clinical Impression(s) from Imaging Studies Chest X-Ray 05/29/24 06:42 IMPRESSION: No acute findings in the chest. Electronically Signed: Joe Sharma MD at 7:50 EST , 1 view chest x-ray as interpreted by the emergency medicine physician reveals no acute infiltrate pneumothorax or pleural effusion Discharge Plan Triage Chief Complaint: Chest Pain ED Provider: Destin Echeverria Dx/Rx/DC Orders Clinical Impression: Nonspecific chest pain, CAD (coronary artery disease), Hypertension Prescriptions: No Action ferrous sulfate 325 mg (65 mg iron) tablet 325 mg PO Q OTHER DAY clopidogrel [Plavix] 75 mg tablet 75 mg PO DAILY atorvastatin 40 mg tablet 40 mg PO DAILY aspirin [Adult Low Dose Aspirin] 81 mg tablet,delayed release (DR/EC) 81 mg PO DAILY cyanocobalamin (vitamin B-12) 100 mcg tablet 100 mcg PO DAILY pantoprazole 40 mg tablet,delayed release (DR/EC) 20 mg PO Q12H torsemide 20 mg tablet 20 mg PO QDAY ranolazine 1,000 mg tablet extended release 12 hr 500 mg PO BID levothyroxine 75 MCG tablet 75 mcg PO DAILY Rx Instructions: name brand synthroid hydroxychloroquine 200 MG tablet 200 mg PO DAILYCM brimonidine 0.15 % drops 1 drp EACH EYE BID Rx Instructions: TEMP. ON HOLD cholecalciferol (vitamin D3) 2,000 UNIT capsule 2,000 unit PO DAILY Creon 12,000-38,000 -60,000 unit capsule,delayed release(DR/EC) 1 cap PO 4X/DAY Patient Comments: with three meals and one snack Lumigan 0.01 % Drops 1 drp EACH EYE QHS Probiotic 10 billion cell capsule 10,000 mmu cells PO DAILY carvedilol 3.125 mg tablet 3.125 mg PO Q12H carvedilol 6.25 mg tablet 6.25 mg PO Q12H Patient Comments: TAKE 1 TABLET BY MOUTH TWICE A DAY WITH MEALS isosorbide mononitrate 30 mg tablet extended release 24 hr 15 mg PO DAILY Patient Comments: TAKE ONE-HALF TABLET(15 MG) BY MOUTH DAILY EVERY MORNING. ranolazine 500 mg tablet extended release 12 hr 500 mg PO BID potassium chloride 10 mEq tablet,ER particles/crystals 10 meq PO DAILY hydrocortisone 10 mg tablet 10 mg PO DAILY Qty: 90 1RF budesonide 3 mg capsule,delayed,extend.release 3 mg PO DAILY Qty: 30 2RF hydrocortisone acetate 25 mg suppository 25 mg AZ QHS 30 Days Qty: 30 0RF mineral oil Enema 118 ml AZ QDAY 30 Days Qty: 3540 0RF Rx Instructions: discard any unused portion Primary Care Provider: Ashvin Cardenas Referrals: Ashvin Cardenas MD [Primary Care Provider] - Print Language: Kazakh
[2024-05-29 07:52] LABS: AST(SGOT) 27 U/L (15-37); Alanine Aminotransfer ALT/SGPT 36 U/L (13-56); Albumin, Serum 3.7 g/dL (3.2-5.0); Alkaline Phosphatase 63 U/L (45-117); Bilirubin, Direct 0.23 mg/dL (0.00-0.30); Globulin 3.8 g/dL (2.2-4.2); Lipase 24 U/L (13-75); Protein, Total 7.5 g/dL (6.4-8.2)
[2024-05-29 09:22] LABS: Troponin-I HS 50 pg/mL (3.0-54.0)
--- NOTE | 2024-05-29 10:15 | CT_ITS ---
HISTORY: Upper abdominal pain, nausea and vomiting. TECHNIQUE: Helically acquired images were obtained of the abdomen and pelvis after the intravenous administration of 100 mL Isovue-300. A radiation dose optimization technique was used for this scan. 385 images. COMPARISON: US 05/12/2024. CT 04/03/2023 FINDINGS: LOWER CHEST: Mild cardiomegaly. Very mild atelectasis in the lung bases. BOWEL: Mild hiatal hernia. Proximal duodenum diverticulum. Bowel including appendix appendix nondilated. Mild fluid distention of small bowel and colon. Terminal ileal and colonic diverticulosis without focal inflammation. Left lower quadrant colostomy. Rectal stump. PERITONEUM: No significant ascites. LIVER: No enhancing mass. GALLBLADDER/BILIARY TREE: Gallbladder not visualized. SPLEEN: Stable 3 mm hypodensity posteriorly, too small to characterize. PANCREAS: Fatty atrophy with scattered parenchymal calcifications. 1.9 x 1.9 cm septated cystic lesion of the tail. Subcentimeter cysts in the body. 1.1 cm cyst in the uncinate. ADRENAL GLANDS/KIDNEYS: Unremarkable. VESSELS: No abdominal aortic aneurysm. Advanced atherosclerosis of the abdominal aorta and its major branches. PELVIC ORGANS: Tubal ligation clips. Mild left posterior uterine calcification, likely leiomyomata. BONES: Degenerative change and osteopenia. CT/Abdomen/Pelvis W IV Cont ONLY IMPRESSION: Mild gastroenteritis/diarrheal illness with mild fluid distention of bowel. Mild hiatal hernia. Small bowel and colonic diverticulosis without acute diverticulitis. Left lower quadrant colostomy. Chronic pancreatitis with chronic small cysts. Electronically Signed: Lacy Dorado MD at 12:38 EST ,
[2024-05-29 10:54] LABS: Color, Urine Yellow (Yellow); Glucose, Dipstick Normal (Normal); Ketone-Dipstick Negative (Negative); Leukocyte Esterase-Dipstick 500 /ul (Negative); Nitrite-Dipstick Negative (Negative); Occult Blood-Urine 25 /ul (Negative); Protein-Dipstick 30 mg/dl (Negative); Urine Bilirubin Dipstick Negative (Negative); Urine Clarity Cloudy (Clear); Urine Urobilinogen Normal (Normal)
[2024-05-29 11:10] LABS: Bacteria 2+ /hpf (None Seen); Mucous, Urine RARE /hpf (<or=2+); Red Blood Cells-Urine 0-5 SEEN /hpf (0-5); Squamous Epithelial Cells - UA 0-5 SEEN /hpf (5-10); White Blood Cells 25-50 SEEN /hpf (0-5)
[2024-05-29] MEDS: 0.9% Normal Saline (1000mL) 1,000 ML 100 ML IV (15:48)
[2024-05-29] MEDS: Ceftriaxone 1 GM/50 ML BAG IV (15:48)
--- NOTE | 2024-05-29 15:48 | HP.PCM.HOS_ITS ---
HPI - General General Date of Admission: 05/29/24 Date of Service: 05/29/24 Chief Complaint: Intractable nausea/vomiting HPI Narrative LIANA VALENCIA, is a 84 F who presented to [facility] ED on 05/29/2024 initially with chest pain. Patient lives alone but her daughter lives nearby. Patient woke up this morning around 4 AM with chest pain and called her daughter. She describes it as midsternal chest discomfort with a sensation of nausea and heartburn. Patient has history of CAD with stent placement in 2021 and noted that her heart attack then presented similarly, so she came to the ED for further evaluation. EKG was unremarkable and troponins x 2 were stable, so low suspicion for ACS. However patient continued to have abdominal discomfort with nausea and then began to have episodes of vomiting. CT abdomen pelvis showed findings consistent with mild gastroenteritis/diarrheal illness with mild fluid distention of the bowel, along with small bowel and colonic diverticulosis. Patient notably has left lower quadrant colostomy in place and has been having good stool output from this. Plan was to trial p.o. intake with hope of discharge home but patient continued to have vomiting, so hospitalist was contacted for admission. I saw the patient at bedside in the ED, 2 daughters were present. Patient was moderately fatigued appearing and somewhat nauseous appearing but otherwise sitting up in bed and answering questions with short appropriate responses. She reported ongoing nausea that was only slightly improved with Zofran. Patient follows with Dr. 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 Per patient and family the plan apparently was to start hydrocortisone enemas soon to help with this. Patient notably had the colostomy placed back in 2021 for perforated sigmoid diverticulum. Per Dr. Wren's note, patient other workup in 2022 that was apparently concerning for celiac disease. Was noted in March of this year that patient continues to eat some gluten in her diet and has occasional bloating with this. On my discussion with them, they were apparently told she may not have celiac disease and patient has not been adhering to a gluten-free diet. Given her ongoing nausea/vomiting and GI history, will be admitted for further management. [facility] Medical History MGUS (monoclonal gammopathy of unknown significance) Secondary adrenal insufficiency Loss of hearing Wears glasses History of Clostridium difficile infection Forgetfulness History of steroid therapy Walker as ambulation aid Bladder disease Low iron Fatty liver Easy bruising Dietary restriction Difficulty swallowing Difficulty chewing History of hiatal hernia Colostomy in place Gastric reflux History of edema History of echocardiogram Cardiology follow-up encounter History of CHF (congestive heart failure) History of irregular heartbeat Heart attack (~03/2022) Abdominal pain Bloating symptom Bright red blood per rectum Presence of stent in coronary artery (~04/06/22) Elevated troponin History of non-ST elevation myocardial infarction (NSTEMI) Nonrheumatic aortic (valve) stenosis with insufficiency Nonrheumatic mitral valve stenosis with insufficiency Pulmonary arterial hypertension Aortic insufficiency Severe mitral regurgitation Chronic hyponatremia Idiopathic thrombocytopenia Macular degeneration Lupus Rheumatic fever Hearing loss, right Hearing loss, left Hyperthyroidism Osteopenia Hepatitis Non-smoker Migraines Diverticulitis Adrenal insufficiency NASAL POLYP REMOVED History of left heart catheterization (LHC) (~03/27/22) 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 Tachycardia Heart disease Glaucoma Hypothyroidism Monoclonal gammopathies Hypertension Home Medications ?Medication ?Instructions ?Recorded ?Last Taken ?Type hydroxychloroquine 200 mg tablet 200 mg PO DAILYCM lupus 06/23/17 05/28/24 History levothyroxine 75 mcg tablet 75 mcg PO DAILY thyroid 06/23/17 05/14/24 History cholecalciferol (vitamin D3) 50 2,000 unit PO DAILY SUPPLEMENT 07/30/19 05/28/24 History mcg (2,000 unit) capsule [id number] 1 cap PO 4X/DAY enzymes 04/29/21 05/28/24 History 12,000-38,000-60,000 unit capsule,delayed rel (Creon) bimatoprost 0.01 % eye drops 1 drp EACH EYE [facility] 01/11/22 05/28/24 History (Lumigan) atorvastatin 40 mg tablet 40 mg PO DAILY 05/04/22 05/28/24 History clopidogrel 75 mg tablet (Plavix) 75 mg PO DAILY 05/04/22 05/28/24 History ferrous sulfate 325 mg (65 mg 325 mg PO Q OTHER DAY 05/24/22 05/13/24 History iron) tablet Lactobacillus acidophilus 10 10,000 mmu cells PO DAILY IMMUNE 07/13/22 05/28/24 History billion cell capsule (Probiotic) HEALTH aspirin 81 mg tablet,delayed 81 mg PO DAILY 07/13/22 05/28/24 History release (Adult Low Dose Aspirin) cyanocobalamin (vitamin B-12) 100 100 mcg PO DAILY 07/13/22 05/28/24 History mcg tablet pantoprazole 40 mg tablet,delayed 20 mg PO Q12H 11/15/22 05/28/24 History release hydrocortisone 10 mg tablet 10 mg PO DAILY #90 tabs 04/26/23 05/28/24 Rx carvedilol 3.125 mg tablet 3.125 mg PO Q12H 06/12/23 05/28/24 History carvedilol 6.25 mg tablet 6.25 mg PO Q12H 06/12/23 05/28/24 History isosorbide mononitrate 30 mg 15 mg PO DAILY 06/12/23 05/28/24 History tablet,extended release 24 hr torsemide 20 mg tablet 20 mg PO QDAY 03/28/24 05/28/24 History ranolazine 500 mg tablet,extended 500 mg PO BID 05/13/24 05/28/24 History release,12 hr budesonide 3 mg 3 mg PO DAILY inflammation #30 ea 05/19/24 05/28/24 Rx capsule,delayed,extended release hydrocortisone acetate 25 mg 25 mg [place] QHS 30 days #30 ea 05/22/24 Unknown Rx rectal suppository mineral oil 118 ml [place] QDAY constipation 30 05/22/24 Unknown Rx days #3,540 mL potassium chloride 10 mEq 10 meq PO DAILY 05/29/24 05/28/24 History capsule,extended release Allergy/AdvReac Type Severity Reaction Status Date / Time Penicillins (PCN) Allergy Hives Verified 05/29/24 18:52 Sulfa (Sulfonamide AdvReac Severe Rash Verified 05/29/24 18:52 Antibiotics) griseofulvin (From Priti-PEG AdvReac Intermediate Other Verified 05/29/24 18:52 (ultramicrosize)) azathioprine (From Imuran) AdvReac Vomiting Verified 05/29/24 18:52 colchicine AdvReac Other Verified 05/29/24 18:52 doxycycline AdvReac Rash Verified 05/29/24 18:52 famotidine (From Pepcid) AdvReac Other Verified 05/29/24 18:52 Family History Father Heart disease Pacemaker Mother Heart disease Brother Myocardial infarction Sister Myocardial infarction Heart disease Surgical History H/O colonoscopy History of sinus surgery H/O dilation and curettage Presence of coronary angioplasty implant and graft Status post colon resection (~12/2021) h/o mass removed from hip H/O cataract extraction H/O tubal ligation Hx of cholecystectomy Social History household members: spouse number of children: 5 current occupational status: retired Smoking Status: Never smoker alcohol intake: never substance use type: does not use caffeine: No additional social history: Barbara Sanford-Daughter- Manages Medical care ROS Constitutional Constitutional: Reports fatigue; Denies chills, fever(s) or weakness Cardiovascular Cardiovascular: Denies chest pain Respiratory/Chest Respiratory/Chest: Denies shortness of breath at rest Gastrointestinal Gastrointestinal: Reports nausea and vomiting; Denies abdominal pain, constipation or diarrhea Musculoskeletal Musculoskeletal: Denies arthralgias or myalgias Vital Signs Vital Signs Vital Signs: 05/29/24 06:17 05/29/24 06:17 05/29/24 07:48 Temperature 97.8 F Temperature Source Oral Pulse Rate 86 81 Respiratory Rate 17 16 Respiratory Effort Normal Non-Labored Blood Pressure 137/111 H 149/54 H Blood Pressure Mean 119 85 Pulse Ox 95 95 Oxygen Delivery Method Room Air 05/29/24 08:04 05/29/24 09:12 05/29/24 10:45 Temperature Temperature Source Pulse Rate 68 88 87 Respiratory Rate 15 20 H 14 Respiratory Effort Blood Pressure 153/62 H 146/63 H 151/66 H Blood Pressure Mean 92 90 94 Pulse Ox 94 92 90 Oxygen Delivery Method Room Air Room Air Room Air 05/29/24 12:36 05/29/24 13:26 05/29/24 14:00 Temperature 97.4 F L 97.6 F L Temperature Source Oral Oral Pulse Rate 89 91 90 Respiratory Rate 21 H 22 H 20 H Respiratory Effort Blood Pressure 142/62 H 145/58 H 148/55 H Blood Pressure Mean 88 87 86 Pulse Ox 90 90 91 Oxygen Delivery Method Room Air Room Air 05/29/24 15:00 Temperature Temperature Source Pulse Rate 89 Respiratory Rate 20 H Respiratory Effort Blood Pressure 138/62 H Blood Pressure Mean 87 Pulse Ox 92 Oxygen Delivery Method Room Air Weight Weight: 50.5 kg Body Mass Index (BMI) 32.5 Physical Exam Const alert, oriented x3, no apparent distress and average body habitus Constitutional Narrative: Elderly female, moderately fatigued and chronically ill-appearing, otherwise sitting up fairly comfortably in bed, answering questions with short appropriate responses. General Appearance: cooperative HEENT normocephalic, head/scalp atraumatic, hearing grossly normal bilaterally and nasal mucous membranes and turbinates normal Eyes PERRL, EOMs intact bilaterally and conjunctivae normal Neck full ROM Chest inspection of chest normal Resp normal respiratory effort, normal air movement, no use of accessory muscles and clear to auscultation bilaterally Cardio regular rate, regular rhythm, no murmurs and peripheral pulses 2+ throughout GI GI Narrative: Abdomen mildly distended but soft and nontender to palpation. Hypoactive bowel sounds noted. Back/Spine normal ROM Extremity no pedal edema Psych mental status grossly normal Psych Narrative: Flat affect. Results Lab / Micro Data 05/29/24 06:53 05/29/24 06:53 Labs: Laboratory Results - last 24 hr 05/29/24 06:53: WBC 13.5 H, RBC 4.37, Hgb 14.4, Hct 42.0, MCV 96.1, MCH 33.0 H, MCHC 34.3, RDW Std Deviation 58.6 H, RDW Coeff of Samreen 16.5 H, Plt Count 141 L, MPV 9.9, Immature Gran % (Auto) 1.400 H, Neut % (Auto) 82.8 H, Lymph % (Auto) 11.6 L, [place] % (Auto) 3.3, Eos % (Auto) 0.5, Baso % (Auto) 0.4, Absolute Neuts (auto) 11.2 H, Absolute Lymphs (auto) 1.57, Nucleated RBC % 0, Sodium 139, Potassium 3.5, Chloride 104, Carbon Dioxide 28.0, Anion Gap 7, BUN 24 H, C reatinine 1.07 H, Estim Creat Clear Calc 28.11, Est GFR (MDRD) Af Amer 63, Est GFR (MDRD) Non-Af 52 L, BUN/Creatinine Ratio 22.4 H, Glucose 96, Calcium 9.0, Magnesium 2.0, Total Bilirubin 1.00, Direct Bilirubin 0.23, AST 27, ALT 36, Alkaline Phosphatase 63, Troponin I High Sens 35, Total Protein 7.5, Albumin 3.7, Globulin 3.8, Lipase 24 05/29/24 08:58: Troponin I High Sens 50 05/29/24 10:49: Urine Color Yellow, Urine Clarity Cloudy, Urine pH 6.0, Ur Specific [place] 1.010, Urine Protein 30 H, Urine Glucose (UA) Normal, Urine Ketones Negative, Urine Occult Blood 25 H, Urine Nitrite Negative, Urine Bilirubin Negative, Urine Urobilinogen Normal, Ur Leukocyte Esterase 500 H, Urine RBC 0-5 SEEN, Urine WBC 25-50 SEEN, Ur Squamous Epith Cells 0-5 SEEN, Urine Bacteria 2+, Urine Mucus RARE Imaging Radiology Impression Chest X-Ray 05/29/24 06:42 IMPRESSION: No acute findings in the chest. Electronically Signed: Joe Sharma MD at 7:50 EST , Abdomen/Pelvis CT 05/29/24 10:15 IMPRESSION: Mild gastroenteritis/diarrheal illness with mild fluid distention of bowel. Mild hiatal hernia. Small bowel and colonic diverticulosis without acute diverticulitis. Left lower quadrant colostomy. Chronic pancreatitis with chronic small cysts. Electronically Signed: Lacy Dorado MD at 12:38 EST , Assessment & Plan Assessment/Plan (1) Intractable nausea and vomiting: PLAN: Plan Patient is an 84-year-old female who presented to [facility] ED on 05/29/2024 with intractable nausea and vomiting. 1. Intractable nausea and vomiting ? Admit under observation status to [facility]. GI consulted. CT abdomen pelvis on admit showed mild fluid-filled bowel loops concerning for gastroenteritis. Patient importantly has had good stool output in her colostomy bag. Mild distention noted on exam but soft and nontender to palpation. Unclear etiology but strongly suspect patient's significant history of multiple GI conditions noted below are contributing to her presentation. Continue IV Zofran as needed for nausea. Appreciate further GI recommendations for medication management. Okay for clear liquid diet for now, advance per GI recs. 2. History of autoimmune pancreatitis with pancreatic insufficiency, celiac disease, Sjogren's disease, chronic mesenteric ischemia and gastroparesis; history of sigmoid perforation s/p colostomy ? Follows with Dr. Wren outpatient, see his history and physical note from 05/[address] abdomen pelvis notably with chronic pancreatitis findings but no concern for acute pancreatitis. Appreciate GI recommendations as above. Okay to continue home Creon, probiotics and hydroxychloroquine for now. 3. History of CAD s/p stenting, hypertension, hyperlipidemia ? History of stenting back in 2021. Presented with chest pain but EKG unremarkable and troponins x 2 stable, very low concern for ACS. Okay to continue home aspirin, Plavix, statin, Coreg, nitrate, ranolazine and torsemide. 4. Acute on chronic debility ? PT/OT/case management consulted. Lives at home alone but daughters help out frequently. Reportedly is able to complete ADLs but appears quite fatigued and somewhat debilitated on my exam in the ED, may need home with home health care versus SNF on discharge. 5. Hypothyroidism ? Continue home Synthroid. DVT prophylaxis: Lovenox Code status: Full code, verified Expected disposition: TBD Total clinical time spent by myself addressing the patient's medical issues, reviewing all the data, and collaborating with patient's care team: 55 minutes. Charges/Coding Visit Charges Inpatient E&M: 03054 Init Hosp L2
--- NOTE | 2024-05-29 18:14 | CASEMGMT ---
Care Management Face to Face with patient for initial transition planning/care coordination assessment in the ED.? This personal lines underwriter introduced self and role at [facility]. Patient lying in bed asleep. Patient?s daughters, Barbara and Marga, present at bedside. Patient?s daughters willing to participate in this initial assessment and were able to answer all questions appropriately.? Care providers, pharmacy, and demographics verified. Admitting Diagnosis: intractable nausea/vomiting Other diagnosis history: MGUS, secondary adrenal insufficiency, C. diff, CHF, heart attack in 03/2022 PCP: Ashvin Cardenas Specialists: Dr. Wren (coke handling supervisor, [place]). Dr. Panda (oncologist, [facility]). Dr. Sky (metal hanging helper, [facility]). Dr. Bonilla (logging assistant, [place]). Dr. Mckeon (rewrite editor, [place]). Dr. Ritter (insulation hoseman, [place]). Preferred [facility]acy: [facility] Insurance: Medicare A + B Prescription Benefit:?Medicare D Living Will/HPOA: patient daughters believe these have been completed and will bring them in if they have. Patient?s daughter, Barbara, states patient has always said ?whichever kid is with me is in charge.? LNOK: patient has 4 children, Barbara ([facility]), Marga ([place]), Davis ([place]), and Dao (lives locally) Living Arrangements: one story home, ranch style. ? Transportation: Barbara reportedly drives patient to all appointments. DME: med alert button, walk in shower, shower bench, walker, cane, and grab bars. HHC: patient has reportedly done HHC through [facility], receiving PT and OT. Patient?s daughters also report that since patient?s heart attack in February, patient has had 24/7 care at home. This is provided with private duty aides or by family members. RU/SNF: patient has reportedly been to TCU twice Community Resources: none Behavioral Health History: none Patient goals: Patient?s daughters report that patient always wishes to discharge home. Patient?s daughters report that patient would want to either go home with HHC or go to [facility] TCU and then home with HHC. Disposition Plan: admission to acute; RN CM/SW team to follow for discharge planning needs that may arise. Brandy Carlson, CULINARY ART TEACHER, LENS EDGE GRINDER MACHINE
[2024-05-29] MEDS: proCHLORPERazine 10 MG/2 ML Vial 5 MG IV (21:19)
[2024-05-30] VITALS (8 sets, daily range): BP systolic 109–152; BP diastolic 50–72; PULSE 76–91; RESP 16–18; TEMP 37–38.2; O2SAT 94–96
[2024-05-30] MEDS: Acetaminophen 325 MG Tablet 650 MG PO (01:25)
[2024-05-30] MEDS: Levothyroxine 75 MCG Tablet PO (05:24)
[2024-05-30 06:07] LABS: Hematocrit 43.4 % (37-47); Mean Corp Hgb Conc 32.3 g/dL (32-36); Mean Corpuscular Hgb 32.6 pg (27.0-32.0); Mean Corpuscular Volume 100.9 fL (81-99); Mean Platelet Vol. 10.1 fl (6.2-12.0); Platelet Count 114 K/mm3 (150-450); RBC Distribution Width SD 63.2 fl (35.1-43.9); White Blood Count 6.7 K/mm3 (4.4-11.0)
[2024-05-30 06:27] LABS: ERROR RESULT FLAG NO; Scan Indicated on CBC? Y/N NO
[2024-05-30 06:37] LABS: Anion Gap 9 (5-15); BUN 20 mg/dL (7-18); BUN/Creat Ratio 17.7 RATIO (10-20); Chloride 110 mmol/L (98-107); Creatinine, Serum 1.13 mg/dL (0.55-1.02); EST Glomerular Filtration Rate 49 mL/min (>60); Est Glom Filt Rate - Afr Amer 59 mL/min (>60); Estimated Creatinine Clearance 26.62 ml/min; Glucose 92 mg/dL (74-106); Potassium 3.3 mmol/L (3.5-5.1); Sodium Level 139 mmol/L (136-145)
[2024-05-30] MEDS: Isosorbide Mononitrate 30 MG Tablet 15 MG PO (08:36)
[2024-05-30] MEDS: Lactobacillis Acidophilus 1 CAP PO (08:37)
[2024-05-30] MEDS: Hydroxychloroquine 200 MG Tablet PO (08:37)
[2024-05-30] MEDS: Cholecalciferol (VIT D3) 25 MCG TABLET (1,000 UNITS) 50 MCG PO (08:37)
[2024-05-30] MEDS: Ranolazine 500 MG Tablet PO ×2 (08:38→21:48)
[2024-05-30] MEDS: Clopidogrel Bisulfate 75 MG Tablet PO (08:38)
[2024-05-30] MEDS: Carvedilol 6.25 MG Tablet PO ×2 (08:39→21:49)
[2024-05-30] MEDS: Aspirin E.C. 81 MG Tablet PO (08:40)
[2024-05-30] MEDS: Ferrous Sulfate 325 MG Tablet PO ×2 (08:42)
[2024-05-30] MEDS: Enoxaparin 30 MG/0.3 ML Syringe SC (08:43)
[2024-05-30] MEDS: Pantoprazole Sodium 20 MG Tablet PO ×2 (08:44→21:48)
--- NOTE | 2024-05-30 08:51 | NURSING ---
pt has own potassium capsule here that she would like to take as she sprinkles it over pudding. has own torsemide 20mg po here as well, requesting to take that d/t in past lasix was not working and got changed to this med. pt creon she takes 2 capsules with meals and 1 capsule with bedtime snack.
--- NOTE | 2024-05-30 09:24 | PCM.PN.HOSP ---
Subjective Subjective no issues overnight, nausea appears to have resolved Objective Data Objective Data Vital Signs: Vital Signs Temp Pulse Resp BP Pulse Ox O2 Del Method O2 Flow Rate 99.6 F H 76 18 149/68 H 96 Room Air 2 05/30/24 08:28 05/30/24 08:28 05/30/24 08:28 05/30/24 08:28 05/30/24 08:28 05/30/24 08:28 05/30/24 07:53 Oxygen Flow Rate (L/min) 2 Oxygen Delivery Method Room Air Weight: 108 lb 9 oz Body Mass Index (BMI) 22.6 Intake & Output: Intake and Output for Last 24 Hours 05/29/24 05/30/24 05/31/24 03:59 03:59 03:59 Intake Total 1350 / 1350 300 / 300 Balance 1350 / 1350 300 / 300 Lab / Micro Data 05/30/24 05:53 05/30/24 05:53 Labs: Laboratory Results - last 24 hr 05/29/24 10:49: Urine Color Yellow, Urine Clarity Cloudy, Urine pH 6.0, Ur Specific [place] 1.010, Urine Protein 30 H, Urine Glucose (UA) Normal, Urine Ketones Negative, Urine Occult Blood 25 H, Urine Nitrite Negative, Urine Bilirubin Negative, Urine Urobilinogen Normal, Ur Leukocyte Esterase 500 H, Urine RBC 0-5 SEEN, Urine WBC 25-50 SEEN, Ur Squamous Epith Cells 0-5 SEEN, Urine Bacteria 2+, Urine Mucus RARE 05/30/24 05:53: WBC 6.7, RBC 4.30, Hgb 14.0, Hct 43.4, MCV 100.9 H, MCH 32.6 H, MCHC 32.3 D, RDW Std Deviation 63.2 H, RDW Coeff of Samreen 17.0 H, Plt Count 114 L, MPV 10.1, Sodium 139, Potassium 3.3 L, Chloride 110 H, Carbon Dioxide 20.0 L, Anion Gap 9, BUN 20 H, Creatinine 1.13 H, Estim Creat Clear Calc 26.62, Est GFR (MDRD) Af Amer 59 L, Est GFR (MDRD) Non-Af 49 L, BUN/Creatinine Ratio 17.7, Glucose 92, Calcium 8.0 L Micro: Microbiology 05/29/24 10:49 Urine Catheter - [place] Urine Culture - Preliminary Culture exhibits no growth. Radiography Diagnostic Testing: Radiology Impression Abdomen/Pelvis CT 05/29/24 10:15 IMPRESSION: Mild gastroenteritis/diarrheal illness with mild fluid distention of bowel. Mild hiatal hernia. Small bowel and colonic diverticulosis without acute diverticulitis. Left lower quadrant colostomy. Chronic pancreatitis with chronic small cysts. Electronically Signed: Lacy Dorado MD at 12:38 EST Reading Location ID and State: [facility] / [place] Tel , Service support , Physical Exam Narrative General: Alert, Oriented x3, Cooperative, No apparent distress HEENT: Atraumatic, PERRLA, EOMI, Normocephalic Oral: Moist Mucosa Neck: Supple, No JVD Lungs: Diminished, Normal air movement, No rhonchi, No wheeze, No rales Cardiovascular: Regular rate, Regular Rhythm, Normal S1, Normal S2, No murmurs Abdomen: Soft, Non Tender, Non-Distended, No Hepato-splenomegaly, colostomy looks okay Extremities: No edema, Capillary Refill Less than 3 Seconds Skin: No rashes, No breakdown Musculoskeletal: No Tenderness to Palpation of Joints or Extremities Neurological: No focal neurological deficits, Motor Exam 5/5 strength throughout, Sensory exam intact to light touch and pain Psych/Mental Status: Flat Assessment & Plan Assessment/Plan (1) Intractable nausea and vomiting: PLAN: Plan 1. Intractable nausea and vomiting ? Admit [facility] to [facility]. GI consulted. CT abdomen pelvis on admit showed mild fluid-filled bowel loops concerning for gastroenteritis. Patient importantly has had good stool output in her colostomy bag. Mild distention noted on exam but soft and nontender to palpation. Unclear etiology but strongly suspect patient's significant history of multiple GI conditions noted below are contributing to her presentation. Continue IV Zofran as needed for nausea. Appreciate further GI recommendations for medication management. Okay for clear liquid diet for now, advance per GI recs. ? She does have a lot of reasons for nausea and vomiting including chronic pancreatitis and history of gastroparesis and mesenteric ischemia from Sjogren's ? Urine culture is negative however UA was very suggestive so we will continue with Rocephin at this time as she is feeling better and her white count decreased by over 50% ? Gastroenterology has been consulted will await evaluation 2. History of autoimmune pancreatitis with pancreatic insufficiency, celiac disease, Sjogren's disease, chronic mesenteric ischemia and gastroparesis; history of sigmoid perforation s/p colostomy ? Follows with Dr. Wren outpatient, see his history and physical note from 05/[address] abdomen pelvis notably with chronic pancreatitis findings but no concern for acute pancreatitis. Appreciate GI recommendations as above. Okay to continue home Creon, probiotics and hydroxychloroquine for now. 3. History of CAD s/p stenting, hypertension, hyperlipidemia ? History of stenting back in 2021. Presented with chest pain but EKG unremarkable and troponins x 2 stable, very low concern for ACS. Okay to continue home aspirin, Plavix, statin, Coreg, nitrate, ranolazine and torsemide. 4. Acute on chronic debility ? PT/OT/case management consulted. Lives at home alone but daughters help out frequently. Reportedly is able to complete ADLs but appears quite fatigued and somewhat debilitated on my exam in the ED, may need home with home health care versus SNF on discharge. 5. Hypothyroidism ? Continue home Synthroid. DVT: Lovenox Charges/Coding Visit Charges Inpatient E&M: 35676 Subs Hosp L2
--- NOTE | 2024-05-30 09:44 | WOUNDNOTE ---
Was asked to see patient by family to observe appliance change to make sure everything is going well. daughter present and is the one who typically changes the appliance. daughter did very well with appliance change. peristomal skin is intact. no erythema noted. no further needs or concerns voiced. patient and daughter appreciative of consult.
[2024-05-30] MEDS: 0.9% Saline Lock 10 ML Syringe IV (10:51)
[2024-05-30] MEDS: Ceftriaxone 1 GM/50 ML BAG IV (10:51)
[2024-05-30] MEDS: Potassium Chloride Oral Tablet 10 MEQ PO (10:52)
[2024-05-30] MEDS: 0.9% Normal Saline (500mL Bag) 500 ML 15 ML IV (10:55)
[2024-05-30] MEDS: Creon 12,000 unit DR CapSULE 2 CAP PO (10:57)
--- NOTE | 2024-05-30 14:25 | CASEMGMT ---
Met with patient to complete BURGOS form. BURGOS form explained to patient who voiced understanding and signed form. Original form placed in pt?s chart and copy provided to patient. Angie Billings, Discharge Planning Asst
--- NOTE | 2024-05-30 15:34 | CASEMGMT ---
Addendum entered by Iram Fisher 05/30/24 16:08: Updated pt dtr as pt resting with eyes closed that [facility] will accept and that they requested SN to be added. She will relay to pt. Addendum entered by Iram Fisher 05/30/24 16:05: Received confirmation from Nell at [facility], they will accept pt for care. They will call pt on sunday to set up an appt. They are requesting SN to be added to referral. Original Note: TAM CELESTE into pt room, discussed with pt and dtr pt current strength and state of health. Pt dtr would like pt to have [facility] again. She states they finished at the end of April with [facility] and they would lke them again. She denies need for a HH list. Discussed SN and pt states she does not feel this is necessary. Pt had been dc'd from [facility] using cane and has since needed to go back to using FWW. Pt would like to get back to the cane. TC to [facility], left message with referral to Nell, will await for acceptance.
--- NOTE | 2024-05-30 16:20 | NURSING ---
spoke with Sasha in micro regarding stool pending- Sasha states quanity not enough from earlier test so more stool is needed.
--- NOTE | 2024-05-30 17:17 | NURSING ---
another stool sample sent down from colostomy
--- NOTE | 2024-05-30 17:39 | CON.PCM.GI_ITS ---
HPI Consult Data Date of Consult: 05/30/24 HPI Narrative Reason for Consultation: Nausea and vomiting HPI Narrative: LIANA VALENCIA, is a 84 F who presented to [facility] ED on 05/29/2024 initially with chest pain. Patient lives alone but her daughter lives nearby. Patient woke up this morning around 4 AM with chest pain and called her daughter. She describes it as midsternal chest discomfort with a sensation of nausea and heartburn. Patient has history of CAD with stent placement in 2021 and noted that her heart attack then presented similarly, so she came to the ED for further evaluation. EKG was unremarkable and troponins x 2 were stable, so low suspicion for ACS. However patient continued to have abdominal discomfort with nausea and then began to have episodes of vomiting. CT abdomen pelvis showed findings consistent with mild gastroenteritis/diarrheal illness with mild fluid distention of the bowel, along with small bowel and colonic diverticulosis. Patient notably has left lower quadrant colostomy in place and has been having good stool output from this. Plan was to trial p.o. intake with hope of discharge home but patient continued to have vomiting, so hospitalist was contacted for admission. I recently performed a sigmoidoscopy done recently on 05/14; this showed diffuse moderate mucosal changes in the rectum, rectosigmoid colon and sigmoid colon secondary to diversion colitis. Per patient and family the plan apparently was to start hydrocortisone enemas soon to help with this. Patient notably had the colostomy placed back in 2021 for perforated sigmoid diverticulum. She has a diagnosis of gastroparesis and chronic pancreatitis for which she takes medicines for. There was some possible portions of [place] related cirrhosis. However she has not gotten a liver biopsy to confirm that. FORMERLY [facility], 1928–1983 Medical History MGUS (monoclonal gammopathy of unknown significance) Secondary adrenal insufficiency Loss of hearing Wears glasses History of Clostridium difficile infection Forgetfulness History of steroid therapy Walker as ambulation aid Bladder disease Low iron Fatty liver Easy bruising Dietary restriction Difficulty swallowing Difficulty chewing History of hiatal hernia Colostomy in place Gastric reflux History of edema History of echocardiogram Cardiology follow-up encounter History of CHF (congestive heart failure) History of irregular heartbeat Heart attack (~03/2022) Abdominal pain Bloating symptom Bright red blood per rectum Presence of stent in coronary artery (~04/06/22) Elevated troponin History of non-ST elevation myocardial infarction (NSTEMI) Nonrheumatic aortic (valve) stenosis with insufficiency Nonrheumatic mitral valve stenosis with insufficiency Pulmonary arterial hypertension Aortic insufficiency Severe mitral regurgitation Chronic hyponatremia Idiopathic thrombocytopenia Macular degeneration Lupus Rheumatic fever Hearing loss, right Hearing loss, left Hyperthyroidism Osteopenia Hepatitis Non-smoker Migraines Diverticulitis Adrenal insufficiency NASAL POLYP REMOVED History of left heart catheterization (LHC) (~03/27/22) 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 Tachycardia Heart disease Glaucoma Hypothyroidism Monoclonal gammopathies Hypertension Home Medications ?Medication ?Instructions ?Recorded ?Last Taken ?Type hydroxychloroquine 200 mg tablet 200 mg PO DAILYCM lupus 06/23/17 05/28/24 History levothyroxine 75 mcg tablet 75 mcg PO DAILY thyroid 06/23/17 05/14/24 History cholecalciferol (vitamin D3) 50 2,000 unit PO DAILY SUPPLEMENT 07/30/19 05/28/24 History mcg (2,000 unit) capsule [id number] 1 cap PO 4X/DAY enzymes 04/29/21 05/28/24 History 12,000-38,000-60,000 unit capsule,delayed rel (Creon) bimatoprost 0.01 % eye drops 1 drp EACH EYE Q EYE HEALTH 01/11/22 05/28/24 History (Lumigan) atorvastatin 40 mg tablet 40 mg PO DAILY 05/04/22 05/28/24 History clopidogrel 75 mg tablet (Plavix) 75 mg PO DAILY 05/04/22 05/28/24 History ferrous sulfate 325 mg (65 mg 325 mg PO Q OTHER DAY 05/24/22 05/13/24 History iron) tablet Lactobacillus acidophilus 10 10,000 mmu cells PO DAILY IMMUNE 07/13/22 05/28/24 History billion cell capsule (Probiotic) HEALTH aspirin 81 mg tablet,delayed 81 mg PO DAILY 07/13/22 05/28/24 History release (Adult Low Dose Aspirin) cyanocobalamin (vitamin B-12) 100 100 mcg PO DAILY 07/13/22 05/28/24 History mcg tablet pantoprazole 40 mg tablet,delayed 20 mg PO Q12H 11/15/22 05/28/24 History release hydrocortisone 10 mg tablet 10 mg PO DAILY #90 tabs 04/26/23 05/28/24 Rx carvedilol 3.125 mg tablet 3.125 mg PO Q12H 06/12/23 05/28/24 History carvedilol 6.25 mg tablet 6.25 mg PO Q12H 06/12/23 05/28/24 History isosorbide mononitrate 30 mg 15 mg PO DAILY 06/12/23 05/28/24 History tablet,extended release 24 hr torsemide 20 mg tablet 20 mg PO QDAY 03/28/24 05/28/24 History ranolazine 500 mg tablet,extended 500 mg PO BID 05/13/24 05/28/24 History release,12 hr budesonide 3 mg 3 mg PO DAILY inflammation #30 ea 05/19/24 05/28/24 Rx capsule,delayed,extended release hydrocortisone acetate 25 mg 25 mg TN QHS 30 days #30 ea 05/22/24 Unknown Rx rectal suppository mineral oil 118 ml TN QDAY constipation 30 05/22/24 Unknown Rx days #3,540 mL potassium chloride 10 mEq 10 meq PO DAILY 05/29/24 05/28/24 History capsule,extended release Allergy/AdvReac Type Severity Reaction Status Date / Time Penicillins (PCN) Allergy Hives Verified 05/29/24 18:52 Sulfa (Sulfonamide AdvReac Severe Rash Verified 05/29/24 18:52 Antibiotics) griseofulvin (From Priti-PEG AdvReac Intermediate Other Verified 05/29/24 18:52 (ultramicrosize)) azathioprine (From Imuran) AdvReac Vomiting Verified 05/29/24 18:52 colchicine AdvReac Other Verified 05/29/24 18:52 doxycycline AdvReac Rash Verified 05/29/24 18:52 famotidine (From Pepcid) AdvReac Other Verified 05/29/24 18:52 Family History Father Heart disease Pacemaker Mother Heart disease Brother Myocardial infarction Sister Myocardial infarction Heart disease Surgical History H/O colonoscopy History of sinus surgery H/O dilation and curettage Presence of coronary angioplasty implant and graft Status post colon resection (~12/2021) h/o mass removed from hip H/O cataract extraction H/O tubal ligation Hx of cholecystectomy Social History household members: spouse number of children: 5 current occupational status: retired Smoking Status: Never smoker alcohol intake: never substance use type: does not use caffeine: No additional social history: Barbara Sanford-Daughter- Manages Medical care ROS Constitutional Constitutional: Reports fatigue; Denies chills, fever(s) or weakness Cardiovascular Cardiovascular: Denies chest pain Respiratory/Chest Respiratory/Chest: Denies shortness of breath at rest Gastrointestinal Gastrointestinal: Reports nausea and vomiting; Denies abdominal pain, constipation or diarrhea Musculoskeletal Musculoskeletal: Denies arthralgias or myalgias Physical Exam Narrative General: Alert, Oriented x3, Cooperative, No apparent distress HEENT: Atraumatic, PERRLA, EOMI, Normocephalic Oral: Moist Mucosa Neck: Supple, No JVD Lungs: Diminished, Normal air movement, No rhonchi, No wheeze, No rales Cardiovascular: Regular rate, Regular Rhythm, Normal S1, Normal S2, No murmurs Abdomen: Soft, Non Tender, Non-Distended, No Hepato-splenomegaly, colostomy looks okay Extremities: No edema, Capillary Refill Less than 3 Seconds Skin: No rashes, No breakdown Musculoskeletal: No Tenderness to Palpation of Joints or Extremities Neurological: No focal neurological deficits, Motor Exam 5/5 strength throughout, Sensory exam intact to light touch and pain Psych/Mental Status: Flat Lab / Micro Data 05/30/24 05:53 05/30/24 05:53 Labs: Laboratory Results - last 24 hr 05/30/24 05:53: WBC 6.7, RBC 4.30, Hgb 14.0, Hct 43.4, MCV 100.9 H, MCH 32.6 H, MCHC 32.3 D, RDW Std Deviation 63.2 H, RDW Coeff of Samreen 17.0 H, Plt Count 114 L , MPV 10.1, Sodium 139, Potassium 3.3 L, Chloride 110 H, Carbon Dioxide 20.0 L, Anion Gap 9, BUN 20 H, Creatinine 1.13 H, Estim Creat Clear Calc 26.62, Est GFR (MDRD) Af Amer 59 L, Est GFR (MDRD) Non-Af 49 L, BUN/Creatinine Ratio 17.7, Glucose 92, Calcium 8.0 L Micro: Microbiology 05/29/24 10:49 Urine Catheter - Daly Urine Culture - Preliminary Culture exhibits no growth. Assessment & Plan Assessment/Plan (1) Intractable nausea and vomiting: PLAN: Plan Patient is an 84-year-old female who presented to [facility] ED on 05/29/2024 with intractable nausea and vomiting. 1. Intractable nausea and vomiting ? I think this is an exacerbation of her known gastroparesis due to gastroenteritis. CT abdomen pelvis on admit showed mild fluid-filled bowel loops concerning for gastroenteritis. Patient importantly has had good stool output in her colostomy bag. Mild distention noted on exam but soft and nontender to palpation. I will put on IV Reglan. She still has a low-grade temperature of 99.9. I am not sure. Continue IV Zofran as needed for nausea. Okay for clear liquid diet for now. 2. History of autoimmune pancreatitis with pancreatic insufficiency, celiac disease, Sjogren's disease, chronic mesenteric ischemia and gastroparesis; history of sigmoid perforation s/p colostomy ? CT abdomen pelvis notably with chronic pancreatitis findings but no concern for acute pancreatitis. Okay to continue home Creon, probiotics and hydroxychloroquine for now. 3. History of CAD s/p stenting, hypertension, hyperlipidemia ? History of stenting back in 2021. Presented with chest pain but EKG unremarkable and troponins x 2 stable, very low concern for ACS. Okay to continue home aspirin, Plavix, statin, Coreg, nitrate, ranolazine and torsemide. Charges/Coding Visit Charges Inpatient E&M: 41811 Init Hosp L3
[2024-05-30] MEDS: BIMATOPROST 0.01% EACH EYE (21:48)
[2024-05-30] MEDS: OPTH EACH EYE (21:48)
[2024-05-30] MEDS: Atorvastatin Calcium 40 MG Tablet PO (21:49)
[2024-05-31 05:44] VITALS: BP 119/62; PULSE 75; RESP 16; TEMP 36.9; O2SAT 95
[2024-05-31] MEDS: Levothyroxine 75 MCG Tablet PO (05:48)
[2024-05-31 06:04] LABS: Absolute Neutrophil Count 2.9 X10^3/uL (2.0-7.7); Basophil# 0.03 X10^3/uL; Basophil% 0.5 % (0-1); Eosinophil# 0.12 X10^3/uL; Eosinophils% 2.1 % (0-5); Hemoglobin 12.4 g/dL (12.0-15.0); Lymphocyte % 33.9 % (19-41); Mean Corp Hgb Conc 33.5 g/dL (32-36); Mean Corpuscular Hgb 32.2 pg (27.0-32.0); Mean Corpuscular Volume 96.1 fL (81-99); Monocyte# 0.57 X10^3/uL; Monocyte% 10.2 % (0-10); NRBC Flagged by Analyzer 0 % (0-5); Neutrophil # 2.91 X10^3/uL (2.7-7.7); Neutrophil % 51.9 % (47-70); Platelet Count 116 K/mm3 (150-450); RBC Distribution Width CV 16.7 % (11.6-14.6); RBC Distribution Width SD 58.6 fl (35.1-43.9); Red Blood Count 3.85 M/mm3 (4.2-5.4); White Blood Count 5.6 K/mm3 (4.4-11.0)
[2024-05-31 06:56] LABS: Anion Gap 8 (5-15); BUN 15 mg/dL (7-18); BUN/Creat Ratio 15.1 RATIO (10-20); Calcium,Total 8.2 mg/dL (8.5-10.1); Chloride 105 mmol/L (98-107); EST Glomerular Filtration Rate 56 mL/min (>60); Est Glom Filt Rate - Afr Amer 68 mL/min (>60); Estimated Creatinine Clearance 30.08 ml/min; Glucose 93 mg/dL (74-106); Potassium 2.9 mmol/L (3.5-5.1); Sodium Level 137 mmol/L (136-145)
[2024-05-31 07:30] VITALS: O2SAT 93
[2024-05-31 08:02] VITALS: BP 119/57; PULSE 79; RESP 16; TEMP 36.9; O2SAT 93
[2024-05-31] MEDS: Hydroxychloroquine 200 MG Tablet PO (08:14)
[2024-05-31] MEDS: Creon 12,000 unit DR CapSULE 2 CAP PO ×2 (08:14→13:04)
[2024-05-31] MEDS: Lactobacillis Acidophilus 1 CAP PO (10:47)
[2024-05-31] MEDS: Carvedilol 3.125 MG TABLET 9.375 MG PO (10:48)
[2024-05-31] MEDS: Ceftriaxone 1 GM/50 ML BAG IV (10:48)
[2024-05-31] MEDS: Isosorbide Mononitrate 30 MG Tablet 15 MG PO (10:49)
[2024-05-31] MEDS: Aspirin E.C. 81 MG Tablet PO (10:49)
[2024-05-31] MEDS: Potassium Chloride Oral Tablet 10 MEQ PO (10:50)
[2024-05-31] MEDS: Enoxaparin 30 MG/0.3 ML Syringe SC (10:52)
[2024-05-31] MEDS: Pantoprazole Sodium 20 MG Tablet PO (10:53)
[2024-05-31] MEDS: Cholecalciferol (VIT D3) 25 MCG TABLET (1,000 UNITS) 50 MCG PO (10:53)
[2024-05-31] MEDS: Ranolazine 500 MG Tablet PO (10:53)
[2024-05-31] MEDS: Clopidogrel Bisulfate 75 MG Tablet PO (10:53)
--- NOTE | 2024-05-31 11:20 | CASEMGMT ---
RN CM note: Green sheet placed on pt's chart w/instructions to notify [facility] when pt is discharged. Khanh STAPLESN RN CM
--- NOTE | 2024-05-31 11:44 | DCINST_ITS ---
Discharge Instructions Diet Discharge Diet: Low fat / Low cholesterol Activity Discharge Activity: Return to Normal Activity Dressing / Incision Call your doctor if you observe: Fever of 101 or Higher, Shortness of breath, Dizziness, Fainting spells, Swelling in the ankles, Chest pain and Increased palpitations (irregular heartbeat) Follow Up Care Test Results: Test results from this visit will be discussed in further detail at your follow- up appointment, if applicable. Discharge Plan Admission Admit Date/Time: 05/29/24 16:00 Attending Provider: Wild Olivera Primary Care Provider: Ashvin Cardenas Consulting Providers: Wolfgang Robbins Discharge Orders/Prescriptions Prescriptions: New cefdinir 300 mg capsule 300 mg PO BID 2 Days Qty: 4 0RF Continued ferrous sulfate 325 mg (65 mg iron) tablet 325 mg PO Q OTHER DAY clopidogrel [Plavix] 75 mg tablet 75 mg PO DAILY atorvastatin 40 mg tablet 40 mg PO DAILY aspirin [Adult Low Dose Aspirin] 81 mg tablet,delayed release (DR/EC) 81 mg PO DAILY cyanocobalamin (vitamin B-12) 100 mcg tablet 100 mcg PO DAILY pantoprazole 40 mg tablet,delayed release (DR/EC) 20 mg PO Q12H torsemide 20 mg tablet 20 mg PO QDAY levothyroxine 75 MCG tablet 75 mcg PO DAILY Rx Instructions: name brand synthroid hydroxychloroquine 200 MG tablet 200 mg PO DAILYCM cholecalciferol (vitamin D3) 2,000 UNIT capsule 2,000 unit PO DAILY Creon 12,000-38,000 -60,000 unit capsule,delayed release(DR/EC) 1 cap PO 4X/DAY Patient Comments: takes 2 tablets with each meal and 1 tablet with her bedtime snack Lumigan 0.01 % Drops 1 drp EACH EYE QHS Patient Comments: MUST BE NAME BRAND Probiotic 10 billion cell capsule 10,000 mmu cells PO DAILY carvedilol 3.125 mg tablet 3.125 mg PO Q12H Patient Comments: TAKE BOTH 3.125MG AND 6.25MG carvedilol 6.25 mg tablet 6.25 mg PO Q12H Patient Comments: TAKE BOTH 3.125MG AND 6.25MG isosorbide mononitrate 30 mg tablet extended release 24 hr 15 mg PO DAILY Patient Comments: TAKE ONE-HALF TABLET(15 MG) BY MOUTH DAILY EVERY MORNING. ranolazine 500 mg tablet extended release 12 hr 500 mg PO BID potassium chloride 10 mEq capsule, extended release 10 meq PO DAILY Patient Comments: PT MIXES CONTENTS OF CAPSULE WITH CHOCOLATE PUDDING hydrocortisone 10 mg tablet 10 mg PO DAILY Qty: 90 1RF budesonide 3 mg capsule,delayed,extend.release 3 mg PO DAILY Qty: 30 2RF hydrocortisone acetate 25 mg suppository 25 mg VT QHS 30 Days Qty: 30 0RF Patient Comments: PT HASNT STARTED YET mineral oil Enema 118 ml VT QDAY 30 Days Qty: 3540 0RF Patient Comments: PT HASNT STARTED YET Rx Instructions: discard any unused portion Referrals / Follow Up: Ashvin Cardenas MD [Primary Care Provider] - Within 1 Week Disposition Disposition (needs filled in before D/C Order can be placed): [facility]
--- NOTE | 2024-05-31 12:34 | PCM.DC.SUM ---
Providers Date of Admission: 05/29/24 Primary Care Physician: Dr. Ashvin Cardenas MD Consultations 05/29/24 22:48 Consult: Gastroenterology Routine Consulting Provider: [facility] Reason for Consult: intractable n/v, known to you EMERGENT Consult: No MD Notified: Yes Date Notified: 05/30/24 Time Notified: 08:06 Method of Notification: Text 05/30/24 08:53 Consult: Onc/Wound/library consultant Routine Comment: Reason for Consult:: pt with ostomy family would like to make sure everything doing ok Reason For Visit: INTRACTABLE NAUSEA/VOMITING Diagnosis Discharge Diagnosis (1) Intractable nausea and vomiting: Status: Acute Code(s): R11.2 - Nausea with vomiting, unspecified Medications at Discharge Home Medications hydroxychloroquine 200 mg tablet 200 mg PO DAILYCM lupus 06/23/17 levothyroxine 75 mcg tablet 75 mcg PO DAILY thyroid 06/23/17 cholecalciferol (vitamin D3) 50 mcg (2,000 unit) capsule 2,000 unit PO DAILY SUPPLEMENT 07/30/19 [id number] 12,000-38,000-60,000 unit capsule,delayed rel (Creon) 1 cap PO 4X/DAY enzymes 04/29/21 bimatoprost 0.01 % eye drops (Lumigan) 1 drp EACH EYE Q EYE HEALTH 01/11/22 atorvastatin 40 mg tablet 40 mg PO DAILY 05/04/22 clopidogrel 75 mg tablet (Plavix) 75 mg PO DAILY 05/04/22 ferrous sulfate 325 mg (65 mg iron) tablet 325 mg PO Q OTHER DAY 05/24/22 Lactobacillus acidophilus 10 billion cell capsule (Probiotic) 10,000 mmu cells PO DAILY IMMUNE HEALTH 07/13/22 aspirin 81 mg tablet,delayed release (Adult Low Dose Aspirin) 81 mg PO DAILY 07/13/22 cyanocobalamin (vitamin B-12) 100 mcg tablet 100 mcg PO DAILY 07/13/22 pantoprazole 40 mg tablet,delayed release 20 mg PO Q12H 11/15/22 hydrocortisone 10 mg tablet 10 mg PO DAILY #90 tabs 04/26/23 carvedilol 3.125 mg tablet 3.125 mg PO Q12H 06/12/23 carvedilol 6.25 mg tablet 6.25 mg PO Q12H 06/12/23 isosorbide mononitrate 30 mg tablet,extended release 24 hr 15 mg PO DAILY 06/12/23 torsemide 20 mg tablet 20 mg PO QDAY 03/28/24 ranolazine 500 mg tablet,extended release,12 hr 500 mg PO BID 05/13/24 budesonide 3 mg capsule,delayed,extended release 3 mg PO DAILY inflammation #30 ea 05/19/24 hydrocortisone acetate 25 mg rectal suppository 25 mg LA QHS 30 days #30 ea 05/22/24 mineral oil 118 ml LA QDAY constipation 30 days #3,540 mL 05/22/24 potassium chloride 10 mEq capsule,extended release 10 meq PO DAILY 05/29/24 cefdinir 300 mg capsule 300 mg PO BID 2 days #4 caps 05/31/24 Hospital Course Operations None Procedures None Summary of Care Provided Minutes Spent on Discharge: 31 Hospital Course: Per HPI: LIANA VALENCIA, is a 84 F who presented to [facility] ED on 05/29/2024 initially with chest pain. Patient lives alone but her daughter lives nearby. Patient woke up this morning around 4 AM with chest pain and called her daughter. She describes it as midsternal chest discomfort with a sensation of nausea and heartburn. Patient has history of CAD with stent placement in 2021 and noted that her heart attack then presented similarly, so she came to the ED for further evaluation. EKG was unremarkable and troponins x 2 were stable, so low suspicion for ACS. However patient continued to have abdominal discomfort with nausea and then began to have episodes of vomiting. CT abdomen pelvis showed findings consistent with mild gastroenteritis/diarrheal illness with mild fluid distention of the bowel, along with small bowel and colonic diverticulosis. Patient notably has left lower quadrant colostomy in place and has been having good stool output from this. Plan was to trial p.o. intake with hope of discharge home but patient continued to have vomiting, so hospitalist was contacted for admission. I saw the patient at bedside in the ED, 2 daughters were present. Patient was moderately fatigued appearing and somewhat nauseous appearing but otherwise sitting up in bed and answering questions with short appropriate responses. She reported ongoing nausea that was only slightly improved with Zofran. Patient follows with Dr. 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 Per patient and family the plan apparently was to start hydrocortisone enemas soon to help with this. Patient notably had the colostomy placed back in 2021 for perforated sigmoid diverticulum. Per Dr. Wren's note, patient other workup in 2022 that was apparently concerning for celiac disease. Was noted in March of this year that patient continues to eat some gluten in her diet and has occasional bloating with this. On my discussion with them, they were apparently told she may not have celiac disease and patient has not been adhering to a gluten-free diet. Given her ongoing nausea/vomiting and GI history, will be admitted for further management. Hospital Course: 1. Intractable nausea and vomiting due to norovirus ? Admit under observation status to [facility]. GI consulted. CT abdomen pelvis on admit showed mild fluid-filled bowel loops concerning for gastroenteritis. Patient importantly has had good stool output in her colostomy bag. Mild distention noted on exam but soft and nontender to palpation. Unclear etiology but strongly suspect patient's significant history of multiple GI conditions noted below are contributing to her presentation. Continue IV Zofran as needed for nausea. Appreciate further GI recommendations for medication management. Okay for clear liquid diet for now, advance per GI recs. ? She does have a lot of reasons for nausea and vomiting including chronic pancreatitis and history of gastroparesis and mesenteric ischemia from Sjogren's ? Urine culture is negative however UA was very suggestive so we will continue with Rocephin at this time as she is feeling better and her white count decreased by over 50% ? Gastroenterology has been consulted and recommended Reglan which the family refused therefore no further intervention indicated ? I discussed with them the plan for discharge today they expressed understanding of the risk and benefits of going home and would like to go home today. Will give an extra 40 mEq of potassium chloride on top of her home potassium dosage of 10 mEq. 2. History of autoimmune pancreatitis with pancreatic insufficiency, celiac disease, Sjogren's disease, chronic mesenteric ischemia and gastroparesis; history of sigmoid perforation s/p colostomy ? Follows with Dr. Wren outpatient, see his history and physical note from 05/[address] abdomen pelvis notably with chronic pancreatitis findings but no concern for acute pancreatitis. Appreciate GI recommendations as above. Okay to continue home Creon, probiotics and hydroxychloroquine for now. 3. History of CAD s/p stenting, hypertension, hyperlipidemia ? History of stenting back in 2021. Presented with chest pain but EKG unremarkable and troponins x 2 stable, very low concern for ACS. Okay to continue home aspirin, Plavix, statin, Coreg, nitrate, ranolazine and torsemide. 4. Acute on chronic debility ? PT/OT/case management consulted. Lives at home alone but daughters help out frequently. Reportedly is able to complete ADLs but appears quite fatigued and somewhat debilitated on my exam in the ED, may need home with home health care versus SNF on discharge. 5. Hypothyroidism ? Continue home Synthroid. Physical Exam Narrative General: Alert, Oriented x3, Cooperative, No apparent distress HEENT: Atraumatic, PERRLA, EOMI, Normocephalic Oral: Moist Mucosa Neck: Supple, No JVD Lungs: Diminished, Normal air movement, No rhonchi, No wheeze, No rales Cardiovascular: Regular rate, Regular Rhythm, Normal S1, Normal S2, No murmurs Abdomen: Soft, Non Tender, Non-Distended, No Hepato-splenomegaly, colostomy looks okay Extremities: No edema, Capillary Refill Less than 3 Seconds Skin: No rashes, No breakdown Musculoskeletal: No Tenderness to Palpation of Joints or Extremities Neurological: No focal neurological deficits, Motor Exam 5/5 strength throughout, Sensory exam intact to light touch and pain Psych/Mental Status: Flat Weight / BMI Weight Weight: 108 lb 9 oz Body Mass Index (BMI) 22.6 ABG / Lab / Microbiology Data 05/31/24 05:48 05/31/24 05:48 Laboratory: Laboratory Results - last 24 hr 05/31/24 05:48: WBC 5.6, RBC 3.85 L, Hgb 12.4, Hct 37.0, MCV 96.1, MCH 32.2 H, MCHC 33.5, RDW Std Deviation 58.6 H, RDW Coeff of Samreen 16.7 H, Plt Count 116 L, MPV 10.0, Immature Gran % (Auto) 1.400 H, Neut % (Auto) 51.9, Lymph % (Auto) 33.9, [place] % (Auto) 10.2 H, Eos % (Auto) 2.1, Baso % (Auto) 0.5, Absolute Neuts (auto) 2.9, Absolute Lymphs (auto) 1.90, Nucleated RBC % 0, Sodium 137, Potassium 2.9 L, Chloride 105, Carbon Dioxide 24.0, Anion Gap 8, BUN 15, Creatinine 1.00, Estim Creat Clear Calc 30.08, Est GFR (MDRD) Af Amer 68, Est GFR (MDRD) Non-Af 56 L, BUN/Creatinine Ratio 15.1, Glucose 93, Calcium 8.2 L Microbiology: Microbiology 05/30/24 17:10 Stool Enteric Bacteriology - Final Norovirus 05/29/24 10:49 Urine Catheter - Daly Urine Culture - Preliminary Culture exhibits no growth. D/C Instructions Discharge Diet: Low fat / Low cholesterol Call your doctor if you observe: Fever of 101 or Higher, Shortness of breath, Dizziness, Fainting spells, Swelling in the ankles, Chest pain and Increased palpitations (irregular heartbeat) Meaningful Use Info Meaningful Use Meaningful Use Diagnoses (Choose all that apply): None applicable Ischemic Stroke Statin Dosing Therapy Reference: STATIN DOSE THERAPY REFERENCE: * Patients > 75 years receive moderate or high dose statin therapy. * Patients 75 years or YOUNGER should receive HIGH intensity statin dose unless contraindicated. You will be required to document reason for non-treatment if statin daily dose does not meet guidelines. HIGH DOSE STATIN THERAPY DAILY Atorvastatin > than or = to 40 mg Rosuvastatin > than or = to 20 mg Amlodipine + Atorvastatin > than or = to 2.5/40 mg Ezetimibe + Simvastatin 10/80 mg Simvastatin 80mg Discharge Plan Admission Admit Date/Time: 05/29/24 16:00 Attending Provider: Wild Olivera Primary Care Provider: Ashvin Cardenas Consulting Providers: Wolfgang Robbins Discharge Orders/Prescriptions Prescriptions: New cefdinir 300 mg capsule 300 mg PO BID 2 Days Qty: 4 0RF Continued ferrous sulfate 325 mg (65 mg iron) tablet 325 mg PO Q OTHER DAY clopidogrel [Plavix] 75 mg tablet 75 mg PO DAILY atorvastatin 40 mg tablet 40 mg PO DAILY aspirin [Adult Low Dose Aspirin] 81 mg tablet,delayed release (DR/EC) 81 mg PO DAILY cyanocobalamin (vitamin B-12) 100 mcg tablet 100 mcg PO DAILY pantoprazole 40 mg tablet,delayed release (DR/EC) 20 mg PO Q12H torsemide 20 mg tablet 20 mg PO QDAY levothyroxine 75 MCG tablet 75 mcg PO DAILY Rx Instructions: name brand synthroid hydroxychloroquine 200 MG tablet 200 mg PO DAILYCM cholecalciferol (vitamin D3) 2,000 UNIT capsule 2,000 unit PO DAILY Creon 12,000-38,000 -60,000 unit capsule,delayed release(DR/EC) 1 cap PO 4X/DAY Patient Comments: takes 2 tablets with each meal and 1 tablet with her bedtime snack Lumigan 0.01 % Drops 1 drp EACH EYE QHS Patient Comments: MUST BE NAME BRAND Probiotic 10 billion cell capsule 10,000 mmu cells PO DAILY carvedilol 3.125 mg tablet 3.125 mg PO Q12H Patient Comments: TAKE BOTH 3.125MG AND 6.25MG carvedilol 6.25 mg tablet 6.25 mg PO Q12H Patient Comments: TAKE BOTH 3.125MG AND 6.25MG isosorbide mononitrate 30 mg tablet extended release 24 hr 15 mg PO DAILY Patient Comments: TAKE ONE-HALF TABLET(15 MG) BY MOUTH DAILY EVERY MORNING. ranolazine 500 mg tablet extended release 12 hr 500 mg PO BID potassium chloride 10 mEq capsule, extended release 10 meq PO DAILY Patient Comments: PT MIXES CONTENTS OF CAPSULE WITH CHOCOLATE PUDDING hydrocortisone 10 mg tablet 10 mg PO DAILY Qty: 90 1RF budesonide 3 mg capsule,delayed,extend.release 3 mg PO DAILY Qty: 30 2RF hydrocortisone acetate 25 mg suppository 25 mg LA QHS 30 Days Qty: 30 0RF Patient Comments: PT HASNT STARTED YET mineral oil Enema 118 ml LA QDAY 30 Days Qty: 3540 0RF Patient Comments: PT HASNT STARTED YET Rx Instructions: discard any unused portion Referrals / Follow Up: Ashvin Cardenas MD [Primary Care Provider] - Within 1 Week Disposition Disposition (needs filled in before D/C Order can be placed): Home Health Service Charges/Coding Visit Charges Inpatient E&M: 55102 Disch Hosp >30min
== END 2024-05-31 14:04 | disposition home health service (06) ==
LOC: ED 16:08 → MS3 17:05
PROVIDERS: Emergency Medicine; Admitting Provider Hospitalist; Emergency Provider Emergency Medicine; PCP Family Medicine; Visit Provider Family Medicine
DX: A08.11 Acute gastroenteropathy due to Norwalk agent (principal); Z93.3 Colostomy status; I11.0 Hypertensive heart disease with heart failure; I50.9 Heart failure, unspecified; K86.1 Other chronic pancreatitis; M32.9 Systemic lupus erythematosus, unspecified; K31.84 Gastroparesis; I25.10 Atherosclerotic heart disease of native coronary artery without angina pectoris; Z79.52 Long term (current) use of systemic steroids; E87.1 Hypo-osmolality and hyponatremia; Z95.5 Presence of coronary angioplasty implant and graft; E03.9 Hypothyroidism, unspecified; K57.50 Diverticulosis of both small and large intestine without perforation or abscess without bleeding; Z79.02 Long term (current) use of antithrombotics/antiplatelets; Z79.82 Long term (current) use of aspirin; R07.89 Other chest pain; E78.5 Hyperlipidemia, unspecified; I25.2 Old myocardial infarction; D47.2 Monoclonal gammopathy; E27.49 Other adrenocortical insufficiency; K21.9 Gastro-esophageal reflux disease without esophagitis; Z79.890 Hormone replacement therapy; Z79.899 Other long term (current) drug therapy; K90.0 Celiac disease; M35.00 Sjogren syndrome, unspecified
CPT/HCPCS: 36415; 71045; 74177; 80048; 80076; 81001; 83690; 83735; 84484; 85025; 85027; 87077; 87086; 87088; 87186; 87506; 93005; 94668; 96361; 96365; 96366; 96372; 96375; 96376; 97162; 97165; 99221; 99285; J7030; J7040; P9612; A4216; G0378; J2405

== ENCOUNTER 2024-06-17 03:32 | Inpatient (IN) | payer MEDICARE, SELFPAY ==
[2024-06-17] VITALS (21 sets, daily range): BP systolic 136–162; BP diastolic 49–84; PULSE 80–105; RESP 10–28; TEMP 36.5–36.7; O2SAT 92–97; BMI 24.6; BMI 22.8
[2024-06-17 04:16] LABS: Absolute Lymphocyte Count 1.72 X10^3/uL (0.83-4.51); Basophil# 0.04 X10^3/uL; Basophil% 0.4 % (0-1); Eosinophil# 0.09 X10^3/uL; Eosinophils% 0.9 % (0-5); Hematocrit 39.6 % (37-47); Lymphocyte # 1.72 X10^3/ul (0.83-4.51); Lymphocyte % 17.5 % (19-41); Mean Corp Hgb Conc 32.8 g/dL (32-36); Mean Corpuscular Hgb 31.8 pg (27.0-32.0); Mean Corpuscular Volume 96.8 fL (81-99); Monocyte# 0.74 X10^3/uL; Monocyte% 7.5 % (0-10); NRBC Flagged by Analyzer 0 % (0-5); Neutrophil # 7.03 X10^3/uL (2.7-7.7); Neutrophil % 71.5 % (47-70); Platelet Count 176 K/mm3 (150-450); RBC Distribution Width CV 16.3 % (11.6-14.6); RBC Distribution Width SD 57.8 fl (35.1-43.9); Red Blood Count 4.09 M/mm3 (4.2-5.4); White Blood Count 9.8 K/mm3 (4.4-11.0)
[2024-06-17 04:24] LABS: Anion Gap 8 (5-15); BUN 22 mg/dL (7-18); BUN/Creat Ratio 19.6 RATIO (10-20); Calcium,Total 8.9 mg/dL (8.5-10.1); Chloride 101 mmol/L (98-107); Creatinine, Serum 1.12 mg/dL (0.55-1.02); EST Glomerular Filtration Rate 49 mL/min (>60); Est Glom Filt Rate - Afr Amer 60 mL/min (>60); Estimated Creatinine Clearance 26.86 ml/min; Glucose 123 mg/dL (74-106); Potassium 3.5 mmol/L (3.5-5.1); Sodium Level 137 mmol/L (136-145); Troponin-I HS (w/2H Reflex) 552 pg/mL (3.0-54.0)
[2024-06-17 04:56] LABS: Prothrombin Time (Protime)PT. 12.7 SECONDS (11.7-14.9)
[2024-06-17 04:57] LABS: Partial Thromboplast Time 23.6 Seconds (24.1-36.2)
[2024-06-17] MEDS: Aspirin 81 MG TAB.CHEW 324 MG PO (05:02)
[2024-06-17] MEDS: HEPARIN/D5w 25,000 UNITS 25,000 UNITS/250 ML IV.SOLN. 7 UNITS CONT INF (05:04)
[2024-06-17] MEDS: Heparin Injection (Vial) 5,000 UNIT/ML VIAL 3500 UNIT IV (05:08)
[2024-06-17 05:55] LABS: Reflex Troponin-HS? (from REC) Y
[2024-06-17 06:52] LABS: Troponin-I HS 4671 pg/mL (3.0-54.0)
[2024-06-17] MEDS: Heparin Injection (Vial) 5,000 UNIT/ML VIAL 1000 UNIT IV (12:25)
[2024-06-17 13:22] LABS: Troponin-I HS 17727 pg/mL (3.0-54.0)
[2024-06-17] MEDS: Creon 12,000 unit DR CapSULE 2 CAP PO (17:19)
== END 2024-06-17 18:24 | disposition short-term general hospital (02) | DRG 280 ==
LOC: ED 04:43 → PCU 13:05
PROVIDERS: Emergency Medicine; Admitting Provider Internal Medicine; Emergency Provider Emergency Medicine; PCP Family Medicine; Visit Provider Internal Medicine
DX: I21.4 Non-ST elevation (NSTEMI) myocardial infarction (principal); I50.31 Acute diastolic (congestive) heart failure; I11.0 Hypertensive heart disease with heart failure; E03.9 Hypothyroidism, unspecified; I25.10 Atherosclerotic heart disease of native coronary artery without angina pectoris; D47.2 Monoclonal gammopathy; Z79.02 Long term (current) use of antithrombotics/antiplatelets; Z79.82 Long term (current) use of aspirin; Z79.52 Long term (current) use of systemic steroids; Z79.899 Other long term (current) drug therapy; Z95.5 Presence of coronary angioplasty implant and graft
CPT/HCPCS: 71045; 80048; 84484; 85025; 85610; 85730; 93005; 99285; A4216

== ENCOUNTER → 2024-06-25 | Outpatient (CLI) | payer MEDICARE, SELFPAY ==
[2024-06-25 17:44] LABS: Absolute Lymphocyte Count 1.14 X10^3/uL (0.83-4.51); Absolute Neutrophil Count 7.7 X10^3/uL (2.0-7.7); Basophil# 0.04 X10^3/uL; Basophil% 0.4 % (0-1); Eosinophil# 0.13 X10^3/uL; Eosinophils% 1.3 % (0-5); Hematocrit 36.1 % (37-47); Lymphocyte # 1.14 X10^3/ul (0.83-4.51); Lymphocyte % 11.5 % (19-41); Mean Corp Hgb Conc 33.2 g/dL (32-36); Mean Corpuscular Hgb 32.2 pg (27.0-32.0); Mean Corpuscular Volume 96.8 fL (81-99); Mean Platelet Vol. 10.2 fl (6.2-12.0); Monocyte# 0.73 X10^3/uL; Monocyte% 7.3 % (0-10); NRBC Flagged by Analyzer 0.2 % (0-5); Neutrophil # 7.72 X10^3/uL (2.7-7.7); Neutrophil % 77.7 % (47-70); Platelet Count 166 K/mm3 (150-450); RBC Distribution Width CV 16.4 % (11.6-14.6); RBC Distribution Width SD 58.2 fl (35.1-43.9); Red Blood Count 3.73 M/mm3 (4.2-5.4); White Blood Count 9.9 K/mm3 (4.4-11.0)
[2024-06-25 18:21] LABS: Ferritin 125 ng/mL (8-252); Iron 86 ug/dL (50-170); Iron Binding Capacity,Total 322 ug/dL (250-450)
[2024-06-30 09:22] LABS: Haptoglobin 155 mg/dL (41-333)
== END | disposition home or self-care (01) ==
LOC: MTLAB 16:32
PROVIDERS: PCP Family Medicine
DX: D64.9 Anemia, unspecified (principal)
CPT/HCPCS: 36415; 82728; 83010; 83540; 83550; 85025

== ENCOUNTER 2024-07-01 04:51 | Inpatient (IN) | payer MEDICARE, SELFPAY ==
[2024-07-01] VITALS (25 sets, daily range): BP systolic 84–150; BP diastolic 42–79; PULSE 71–115; RESP 13–40; TEMP 36.2–37.1; O2SAT 90–98; BMI 23.5; BMI 23.1
--- NOTE | 2024-07-01 04:59 | EKG12_ITS ---
Test Reason : CP Blood Pressure : */* mmHG Vent. Rate : 109 BPM Atrial Rate : 109 BPM P-R Int : 144 ms QRS Dur : 84 ms QT Int : 360 ms P-R-T Axes : 69 0 56 degrees QTcB Int : 484 ms Sinus tachycardia with occasional Premature ventricular complexes and Fusion complexes Left ventricular hypertrophy with repolarization abnormality ( R in aVL , Sokolow-Giordano , Ollie prod uct ) Marked ST abnormality, possible anterior subendocardial injury Abnormal ECG Confirmed by DEJA COELLO, GARETH ([id number]), tape editor KEYLA CASTELLANOS ([id number]) on 07/03/2024 10:45:02 AM Referred By: Confirmed By: GARETH SHORT MD
--- NOTE | 2024-07-01 04:59 | RAD_ITS ---
EXAM: XR CHEST, 1 VIEW CLINICAL INDICATION: chest pain TECHNIQUE: Frontal view of the chest. COMPARISON: Previous chest radiograph of 06/17/2024. FINDINGS: LUNGS AND PLEURAL SPACES: Pulmonary interstitial markings remain thickened bilaterally, consistent with interstitial edema, unchanged. There is slight blunting of both lateral costophrenic angles due to basilar pleural thickening and/or pleural effusions. No patchy pneumonia or alveolar edema is identified. HEART: Heart size is moderately enlarged with continued cephalization of pulmonary blood flow. MEDIASTINUM: Stable elongation and calcification of the thoracic aorta with ectasia of the brachiocephalic vessels. BONES/JOINTS: Osseous structures are demineralized. Thoracic degenerative disc disease. Minimal thoracic dextroscoliosis. SOFT TISSUES: Unremarkable. RAD/Chest 1 View (Portable) IMPRESSION: No significant interval change since 06/17/2024. Stable findings of mild cardiac decompensation with cardiomegaly, pulmonary venous hypertension and interstitial pulmonary edema. No pneumonia. Electronically Signed: Misha Castro MD at 6:30 EST ,
--- NOTE | 2024-07-01 05:12 | EDS_ITS ---
HPI <Dr. Antonio Soares, DO - Last Filed: 07/01/24 22:30> History of Present Illness Chief Complaint: Chest Pain Informant: patient, family and EMS Onset/Context/Timing Onset: Today Narrative Narrative: Presents to the ED prehospital stroke activation by myself reporting chest pain bilateral arm weakness started 2 hours prior to arrival. EMS EKG concerns for elevation in aVR with ST depressions inferior lateral leads. History of VT 2 stents in the right side in the past. Patient took 4 baby aspirin's at home. She is followed by [facility] cardiology. On arrival mild symptoms. Family present also reporting confirming that she was transferred to [facility] 2 weeks ago with similar presentation with her complex history. However states medically manage with increase of her carvedilol to 12.5 mg. She is on aspirin and Plavix. There was no heart cath performed per daughter. States and describes the lesion in the left main branch region. She was last heart cath in February of this year at [facility] per family. Family reported echocardiogram was performed reported no weakness. Hypertension, hyperlipidemia coronary disease, valvular insufficiency. Prior Similar Symptoms: Yes and With Prior VT CVD Risk Factors: Positive for Hypertension and Hypercholesterolemia [facility] <Dr. Antonio Soares, DO - Last Filed: 07/01/24 22:30> [facility] Medical History Osteoarthritis Osteoporosis Congestive heart failure (CHF) DVT (deep venous thrombosis) MGUS (monoclonal gammopathy of unknown significance) Secondary adrenal insufficiency Loss of hearing Wears glasses History of Clostridium difficile infection Forgetfulness History of steroid therapy Walker as ambulation aid Bladder disease Low iron Fatty liver Easy bruising Dietary restriction Difficulty swallowing Difficulty chewing History of hiatal hernia Colostomy in place Gastric reflux History of edema History of echocardiogram Cardiology follow-up encounter History of CHF (congestive heart failure) History of irregular heartbeat Heart attack (~03/2022) Abdominal pain Bloating symptom Bright red blood per rectum Presence of stent in coronary artery (~04/06/22) Elevated troponin History of non-ST elevation myocardial infarction (NSTEMI) Nonrheumatic aortic (valve) stenosis with insufficiency Nonrheumatic mitral valve stenosis with insufficiency Pulmonary arterial hypertension Aortic insufficiency Severe mitral regurgitation Chronic hyponatremia Idiopathic thrombocytopenia Macular degeneration Lupus Rheumatic fever Hearing loss, right Hearing loss, left Hyperthyroidism Osteopenia Hepatitis Non-smoker Migraines Diverticulitis Adrenal insufficiency NASAL POLYP REMOVED History of left heart catheterization (LHC) (~03/27/22) 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 Tachycardia Heart disease Glaucoma Hypothyroidism Monoclonal gammopathies Hypertension Home Medications ?Medication ?Instructions ?Recorded ?Last Taken ?Type hydroxychloroquine 200 mg tablet 200 mg PO DAILYCM lupus 06/23/17 05/28/24 History levothyroxine 75 mcg tablet 75 mcg PO DAILY thyroid 06/23/17 05/14/24 History cholecalciferol (vitamin D3) 50 2,000 unit PO DAILY SUPPLEMENT 07/30/19 05/28/24 History mcg (2,000 unit) capsule atorvastatin 40 mg tablet 40 mg PO DAILY 05/04/22 05/28/24 History clopidogrel 75 mg tablet (Plavix) 75 mg PO DAILY 05/04/22 05/28/24 History ferrous sulfate 325 mg (65 mg 325 mg PO Q OTHER DAY 05/24/22 05/13/24 History iron) tablet Lactobacillus acidophilus 10 10,000 mmu cells PO DAILY IMMUNE 07/13/22 05/28/24 History billion cell capsule (Probiotic) HEALTH aspirin 81 mg tablet,delayed 81 mg PO DAILY 07/13/22 05/28/24 History release (Adult Low Dose Aspirin) cyanocobalamin (vitamin B-12) 100 100 mcg PO DAILY 07/13/22 05/28/24 History mcg tablet hydrocortisone 10 mg tablet 10 mg PO DAILY #90 tabs 04/26/23 05/28/24 Rx carvedilol 6.25 mg tablet 12.5 mg PO Q12H 06/12/23 05/28/24 History isosorbide mononitrate 30 mg 15 mg PO DAILY 06/12/23 05/28/24 History tablet,extended release 24 hr torsemide 20 mg tablet 20 mg PO QDAY 03/28/24 05/28/24 History ranolazine 500 mg tablet,extended 500 mg PO QHS 05/13/24 05/28/24 History release,12 hr budesonide 3 mg 3 mg PO DAILY inflammation #30 ea 05/19/24 05/28/24 Rx capsule,delayed,extended release potassium chloride 10 mEq 10 meq PO DAILY 05/29/24 05/28/24 History capsule,extended release bimatoprost 0.01 % eye drops 1 drp EACH EYE DAILY 06/17/24 Unknown History (Dawn) [id number] 2 cap PO TID 06/17/24 Unknown History 12,000-38,000-60,000 unit capsule,delayed rel (Creon) pantoprazole 20 mg tablet,delayed 20 mg PO BID 06/17/24 Unknown History release Allergy/AdvReac Type Severity Reaction Status Date / Time Penicillins (PCN) Allergy Hives Verified 07/01/24 04:52 Sulfa (Sulfonamide AdvReac Severe Rash Verified 07/01/24 04:52 Antibiotics) griseofulvin (From Priti-PEG AdvReac Intermediate Other Verified 07/01/24 04:52 (ultramicrosize)) azathioprine (From Imuran) AdvReac Vomiting Verified 07/01/24 04:52 colchicine AdvReac Other Verified 07/01/24 04:52 doxycycline AdvReac Rash Verified 07/01/24 04:52 famotidine (From Pepcid) AdvReac Other Verified 07/01/24 04:52 Family History Father Heart disease Pacemaker Mother Heart disease Brother Myocardial infarction Sister Myocardial infarction Heart disease Surgical History H/O colonoscopy History of sinus surgery H/O dilation and curettage Presence of coronary angioplasty implant and graft Status post colon resection (~12/2021) h/o mass removed from hip H/O cataract extraction H/O tubal ligation Hx of cholecystectomy Social History household members: spouse number of children: 5 current occupational status: retired Smoking Status: Never smoker alcohol intake: never substance use type: does not use caffeine: No additional social history: Barbara Sanford-Daughter- Manages Medical care ROS <Dr. Antonio Soares DO - Last Filed: 07/01/24 22:30> ROS ED Constitutional Constitutional ED: Denies chills, fever(s) or sweats Eyes Eyes: Denies change in vision ENT ENT ED: Denies dysphagia or sore throat Cardiovascular Cardiovascular: Reports chest pain; Denies leg edema, palpitations or racing heartbeat Respiratory/Chest Respiratory/Chest: Denies cough, dyspnea or dyspnea on exertion Gastrointestinal Gastrointestinal: Denies abdominal pain, diarrhea, nausea or vomiting Genitourinary Genitourinary ED: Denies dysuria, hematuria or urinary frequency Musculoskeletal Musculoskeletal: Denies back pain, extremity pain or neck pain Integumentary Denies rash or wounds Neurologic Neurologic: Denies headache(s), paresthesias or weakness EXAM <Dr. Antonio Soares, DO - Last Filed: 07/01/24 22:30> Physical Exam Const Vital Signs: 07/01/24 04:51 07/01/24 05:02 07/01/24 05:51 Temperature 97.1 F L Temperature Source Oral Pulse Rate 107 H 97 Respiratory Rate 19 H 19 H Blood Pressure 150/69 H 136/63 H Blood Pressure Mean 96 87 Pulse Ox 96 95 96 Oxygen Delivery Method Nasal Cannula Nasal Cannula Nasal Cannula Oxygen Flow Rate (L/min) 2 2 Fraction of Inspired Oxygen (FIO2) 07/01/24 06:00 07/01/24 07:00 07/01/24 07:57 Temperature Temperature Source Pulse Rate 94 90 77 Respiratory Rate 18 18 18 Blood Pressure 126/63 H 117/48 L 117/48 L Blood Pressure Mean 84 71 71 Pulse Ox 98 96 95 Oxygen Delivery Method Nasal Cannula Nasal Cannula Oxygen Flow Rate (L/min) 2 Fraction of Inspired Oxygen (FIO2) 07/01/24 09:00 07/01/24 10:00 07/01/24 11:00 Temperature Temperature Source Pulse Rate 92 77 101 H Respiratory Rate 20 H 18 13 Blood Pressure 117/58 L 123/53 H 122/54 H Blood Pressure Mean 77 76 76 Pulse Ox 97 98 98 Oxygen Delivery Method Nasal Cannula Room Air Nasal Cannula Oxygen Flow Rate (L/min) 2 Fraction of Inspired Oxygen (FIO2) 07/01/24 12:00 07/01/24 13:00 07/01/24 13:19 Temperature 98 F Temperature Source Pulse Rate 71 111 H 71 Respiratory Rate 18 15 18 Blood Pressure 131/60 H 119/67 131/60 H Blood Pressure Mean 83 84 83 Pulse Ox 97 98 97 Oxygen Delivery Method Nasal Cannula Oxygen Flow Rate (L/min) Fraction of Inspired Oxygen (FIO2) 2 Positive well nourished and well developed Constitutional Narrative: 2 L nasal cannula, nontoxic no acute distress General Appearance ED: well developed and NAD HEENT Reports moist mucous membranes normocephalic and atraumatic Eyes EOMs intact bilaterally and conjunctivae normal General Eye ED: Yes normal appearance of both eyes Neck no lymphadenopathy and supple General: Negative for tenderness Chest Wall Chest Narrative: Residual bruising left chest wall reported by family from previous EKG leads. Chest: Negative for tenderness Resp normal respiratory effort and normal air movement Effort and Inspection: symmetric chest movement; Negative for respiratory distress Cardio regular rate, regular rhythm and no murmurs Peripheral Pulses: pulses 2+ throughout GI normal to inspection, nondistended, normoactive bowel sounds and non-tender Palpation: Negative for guarding or rebound tenderness present Back/Spine no CVA tenderness and no thoracic nor lumbar tenderness Extremity normal to inspection General Extremety ED: Negative for edema or tenderness General Extremity: Negative for edema Neuro oriented x3 and no sensory deficits noted Sensorium / Orientation: awake and alert Skin no rashes or lesions noted and no wounds <Dr. Lupillo Sanches, DO - Last Filed: 07/01/24 14:57> Physical Exam Const Vital Signs: 07/01/24 04:51 07/01/24 05:02 07/01/24 05:51 Temperature 97.1 F L Temperature Source Oral Pulse Rate 107 H 97 Respiratory Rate 19 H 19 H Blood Pressure 150/69 H 136/63 H Blood Pressure Mean 96 87 Pulse Ox 96 95 96 Oxygen Delivery Method Nasal Cannula Nasal Cannula Nasal Cannula Oxygen Flow Rate (L/min) 2 2 Fraction of Inspired Oxygen (FIO2) 07/01/24 06:00 07/01/24 07:00 07/01/24 07:57 Temperature Temperature Source Pulse Rate 94 90 77 Respiratory Rate 18 18 18 Blood Pressure 126/63 H 117/48 L 117/48 L Blood Pressure Mean 84 71 71 Pulse Ox 98 96 95 Oxygen Delivery Method Nasal Cannula Nasal Cannula Oxygen Flow Rate (L/min) 2 Fraction of Inspired Oxygen (FIO2) 07/01/24 09:00 07/01/24 10:00 07/01/24 11:00 Temperature Temperature Source Pulse Rate 92 77 101 H Respiratory Rate 20 H 18 13 Blood Pressure 117/58 L 123/53 H 122/54 H Blood Pressure Mean 77 76 76 Pulse Ox 97 98 98 Oxygen Delivery Method Nasal Cannula Room Air Nasal Cannula Oxygen Flow Rate (L/min) 2 Fraction of Inspired Oxygen (FIO2) 07/01/24 12:00 07/01/24 13:00 07/01/24 13:19 Temperature 98 F Temperature Source Pulse Rate 71 111 H 71 Respiratory Rate 18 15 18 Blood Pressure 131/60 H 119/67 131/60 H Blood Pressure Mean 83 84 83 Pulse Ox 97 98 97 Oxygen Delivery Method Nasal Cannula Oxygen Flow Rate (L/min) Fraction of Inspired Oxygen (FIO2) 2 <Dr. Antonio Soares, DO - Last Filed: 07/01/24 22:30> Heart Score History: Highly Suspicious ECG: Significant ST-Depression Age: >/= 65 years Risk Factors: >/= 3 Risk Factors or History of CAD Troponin: >/=3 x Normal Limit Score: 10 <Dr. Lupillo Sanches, DO - Last Filed: 07/01/24 14:57> Heart Score Score: 9 MDM <Dr. Antonio Soares, DO - Last Filed: 07/01/24 22:30> MDM MDM Narrative Medical decision making narrative: Interventions / MDM: Differential diagnosis: Acute coronary syndrome, NSTEMI, chest pain Diagnosis considered but do not suspect: N/A My EKG interpretation: Sinus rate of 104, isolated elevation in aVR, diffuse ST depressions inferior anterior lateral leads. Imaging independently reviewed and interpreted by myself: N/A External documents reviewed: N/A Test considered but not ordered:N/A ED course: STEMI alert was activated continue ED I spoke with STEMI physician Dr. Acosta. He was aware of the patient from 2 weeks ago with the transfer. This is the same patient. EKG similar from 2 weeks ago, we discussed with family's report history with no intervention medically management, will cancel STEMI alert and workup from a cardiac standpoint. If no intervention, will plan to admit here for medical treatment. Patient took aspirin at home. 0530: Reviewing records, she had chest pains with NSTEMI this past February. Family requested being transferred to [facility] as that is where her cardiology team is. After seeing this I rediscussed with family and patient. She states she be more comfortable at [facility] with her cardiac team there also. Discussing with family, they state they were recommended medical treatment however were open to intervention if that would help her symptoms. With reoccurring acute coronary symptoms, EKG noting concerns for left main disease, I will discuss with cardiology at [facility] for plan transfer. Her troponin is pending. The pain is minimal at 1 at this time. 0630: Patient currently symptom-free. I discussed with [facility] transfer line who reviewed her records, she reported to me the recommendation discussion with family was for medical management. I discussed with her, patient still full code at this time. Known left main coronary disease. She is at risk for cardiac dysrhythmia and cardiac arrest. Discussed patient and family requesting transfer there as her cardiac team is there for evaluation and management. Discussed she would need a cardiac plan with her team with her risks. They will reach out to their hospital team for discussion. Re-evaluation: stable Disposition discussed with patient/family/significant other: Patient and family Case discussed with consulting clinician: [facility] transfer This note was generated with [employer] dictation software. It may contain incorrect words, spelling, and punctuation that were not noted in checking the note before signing. Lab Data Labs: Laboratory Results - last 24 hr 07/01/24 07/01/24 07/01/24 05:02 07:10 13:33 WBC 10.5 RBC 3.73 L Hgb 11.9 L Hct 36.4 L MCV 97.6 MCH 31.9 MCHC 32.7 RDW Std Deviation 59.7 H RDW Coeff of Samreen 17.0 H Plt Count 196 MPV 9.7 Immature Gran % (Auto) 2.900 H Neut % (Auto) 72.0 H Lymph % (Auto) 15.6 L [place] % (Auto) 6.4 Eos % (Auto) 2.4 Baso % (Auto) 0.7 Absolute Neuts (auto) 7.6 Absolute Lymphs (auto) 1.64 Nucleated RBC % 0 PT 13.6 INR 1.0 APTT 21.9 L Sodium 136 Potassium 3.7 Chloride 103 Carbon Dioxide 24.0 Anion Gap 9 BUN 21 H Creatinine 1.08 H Estim Creat Clear Calc 27.85 Est GFR (MDRD) Af Amer 62 Est GFR (MDRD) Non-Af 51 L BUN/Creatinine Ratio 19.4 Glucose 126 H Calcium 9.4 Troponin I High Sens 196 H* 1517 H* 3806 H* Radiography Diagnostic Testing: Clinical Impression(s) from Imaging Studies Chest X-Ray 07/01/24 04:59 IMPRESSION: No significant interval change since 06/17/2024. Stable findings of mild cardiac decompensation with cardiomegaly, pulmonary venous hypertension and interstitial pulmonary edema. No pneumonia. Electronically Signed: Misha Castro MD at 6:30 EST , <Dr. Lupillo Sanches, DO - Last Filed: 07/01/24 14:57> MDM MDM Narrative Medical decision making narrative: Interventions / MDM: Differential diagnosis: Acute coronary syndrome, NSTEMI, chest pain Diagnosis considered but do not suspect: N/A My EKG interpretation: Sinus rate of 104, isolated elevation in aVR, diffuse ST depressions inferior anterior lateral leads. Imaging independently reviewed and interpreted by myself: N/A External documents reviewed: N/A Test considered but not ordered:N/A ED course: STEMI alert was activated continue ED I spoke with STEMI physician Dr. Acosta. He was aware of the patient from 2 weeks ago with the transfer. This is the same patient. EKG similar from 2 weeks ago, we discussed with family's report history with no intervention medically management, will cancel STEMI alert and workup from a cardiac standpoint. If no intervention, will plan to admit here for medical treatment. Patient took aspirin at home. 0530: Reviewing records, she had chest pains with NSTEMI this past February. Family requested being transferred to [facility] as that is where her cardiology team is. After seeing this I rediscussed with family and patient. She states she be more comfortable at [facility] with her cardiac team there also. Discussing with family, they state they were recommended medical treatment however were open to intervention if that would help her symptoms. With reoccurring acute coronary symptoms, EKG noting concerns for left main disease, I will discuss with cardiology at [facility] for plan transfer. Her troponin is pending. The pain is minimal at 1 at this time. 0630: Patient currently symptom-free. I discussed with [facility] transfer line who reviewed her records, she reported to me the recommendation discussion with family was for medical management. I discussed with her, patient still full code at this time. Known left main coronary disease. She is at risk for cardiac dysrhythmia and cardiac arrest. Discussed patient and family requesting transfer there as her cardiac team is there for evaluation and management. Discussed she would need a cardiac plan with her team with her risks. They will reach out to their hospital team for discussion. Re-evaluation: stable Disposition discussed with patient/family/significant other: Patient and family Case discussed with consulting clinician: [facility] transfer This note was generated with [employer] dictation software. It may contain incorrect words, spelling, and punctuation that were not noted in checking the note before signing. Update 10 0000 hrs.: Repeat EKG shows improvement of the ST segments. A second troponin is markedly elevated greater than 1000. She remains asymptomatic on a heparin drip. She has been accepted to [facility] we are currently awaiting a bed assignment. Update 1400 hrs. 30 EKG was obtained still shows some continued ST depression changes consistent with a left main lesion her troponin is now up to 3800. [facility] states they will not have a bed today. She has had some nausea and vomiting and we administered Zofran. I spoke with the hospitalist for institution as I think she would do better rather than sit in the emergency room until potentially tomorrow. Her plan is to put her in the ICU. Cardiology was updated. History & Record Review Discussion w/independent historian: Patient and Family Additional record(s) reviewed:: Prior ED visit and Prior labs Lab Data Attestation: I reviewed the patient's lab results. Labs: Laboratory Results - last 24 hr 07/01/24 07/01/24 07/01/24 05:02 07:10 13:33 WBC 10.5 RBC 3.73 L Hgb 11.9 L Hct 36.4 L MCV 97.6 MCH 31.9 MCHC 32.7 RDW Std Deviation 59.7 H RDW Coeff of Samreen 17.0 H Plt Count 196 MPV 9.7 Immature Gran % (Auto) 2.900 H Neut % (Auto) 72.0 H Lymph % (Auto) 15.6 L [place] % (Auto) 6.4 Eos % (Auto) 2.4 Baso % (Auto) 0.7 Absolute Neuts (auto) 7.6 Absolute Lymphs (auto) 1.64 Nucleated RBC % 0 PT 13.6 INR 1.0 APTT 21.9 L Sodium 136 Potassium 3.7 Chloride 103 Carbon Dioxide 24.0 Anion Gap 9 BUN 21 H Creatinine 1.08 H Estim Creat Clear Calc 27.85 Est GFR (MDRD) Af Amer 62 Est GFR (MDRD) Non-Af 51 L BUN/Creatinine Ratio 19.4 Glucose 126 H Calcium 9.4 Troponin I High Sens 196 H* 1517 H* 3806 H* Radiography Diagnostic Testing: Clinical Impression(s) from Imaging Studies Chest X-Ray 07/01/24 04:59 IMPRESSION: No significant interval change since 06/17/2024. Stable findings of mild cardiac decompensation with cardiomegaly, pulmonary venous hypertension and interstitial pulmonary edema. No pneumonia. Electronically Signed: Misha Castro MD at 6:30 EST , Management Discussion w/another healthcare provider: Hospitalist and [employer] <Dr. Antonio Soares, DO - Last Filed: 07/01/24 22:30> Critical Care Time Critical Care Time: Yes Critical care time (excluding procedures): 30-74 minutes, Discussing w/Patient &/or Family/Assistant Surveyor, Discussing w/Consultants, Arranging Admission or Transfer, Performing Direct Patient Care at Bedside and - (35 minutes) Discharge Plan Dx/Rx/DC Orders Clinical Impression: Acute coronary syndrome, History of CAD (coronary artery disease), Non-ST elevation VT (NSTEMI) Disposition Disposition: Acute Care Hospital [facility] Discharge Date/Time: 07/01/24 14:28
[2024-07-01 05:19] LABS: Absolute Lymphocyte Count 1.64 X10^3/uL (0.83-4.51); Absolute Neutrophil Count 7.6 X10^3/uL (2.0-7.7); Basophil# 0.07 X10^3/uL; Basophil% 0.7 % (0-1); Eosinophil# 0.25 X10^3/uL; Eosinophils% 2.4 % (0-5); Hematocrit 36.4 % (37-47); Hemoglobin 11.9 g/dL (12.0-15.0); Lymphocyte # 1.64 X10^3/ul (0.83-4.51); Lymphocyte % 15.6 % (19-41); Mean Corp Hgb Conc 32.7 g/dL (32-36); Mean Corpuscular Hgb 31.9 pg (27.0-32.0); Mean Corpuscular Volume 97.6 fL (81-99); Mean Platelet Vol. 9.7 fl (6.2-12.0); Monocyte# 0.67 X10^3/uL; Monocyte% 6.4 % (0-10); NRBC Flagged by Analyzer 0 % (0-5); Neutrophil # 7.58 X10^3/uL (2.7-7.7); Platelet Count 196 K/mm3 (150-450); RBC Distribution Width SD 59.7 fl (35.1-43.9); Red Blood Count 3.73 M/mm3 (4.2-5.4); White Blood Count 10.5 K/mm3 (4.4-11.0)
[2024-07-01 05:45] LABS: Anion Gap 9 (5-15); BUN 21 mg/dL (7-18); BUN/Creat Ratio 19.4 RATIO (10-20); Calcium,Total 9.4 mg/dL (8.5-10.1); Chloride 103 mmol/L (98-107); Creatinine, Serum 1.08 mg/dL (0.55-1.02); EST Glomerular Filtration Rate 51 mL/min (>60); Est Glom Filt Rate - Afr Amer 62 mL/min (>60); Estimated Creatinine Clearance 27.85 ml/min; Glucose 126 mg/dL (74-106); Potassium 3.7 mmol/L (3.5-5.1); Sodium Level 136 mmol/L (136-145); Troponin-I HS (w/2H Reflex) 196 pg/mL (3.0-54.0)
[2024-07-01 06:06] LABS: Partial Thromboplast Time 21.9 Seconds (24.1-36.2); Prothrombin Time (Protime)PT. 13.6 SECONDS (11.7-14.9)
[2024-07-01] MEDS: Heparin Injection (Vial) 5,000 UNIT/ML VIAL 3500 UNIT IV (06:10)
[2024-07-01] MEDS: HEPARIN/D5w 25,000 UNITS 25,000 UNITS/250 ML IV.SOLN. 7 UNITS CONT INF (06:12)
[2024-07-01 07:07] LABS: Reflex Troponin-HS? (from REC) Y
[2024-07-01 08:05] LABS: Troponin-I HS 1517 pg/mL (3.0-54.0)
--- NOTE | 2024-07-01 08:26 | EKG12_ITS ---
Test Reason : REPEAT Blood Pressure : */* mmHG Vent. Rate : 95 BPM Atrial Rate : 95 BPM P-R Int : 150 ms QRS Dur : 86 ms QT Int : 386 ms P-R-T Axes : 55 11 36 degrees QTcB Int : 485 ms Normal sinus rhythm Possible Left atrial enlargement Left ventricular hypertrophy with repolarization abnormality ( R in aVL , Sokolow-Giordano , Ollie prod uct ) Marked ST abnormality, possible anterior subendocardial injury Abnormal ECG Confirmed by DEJA COELLO, GARETH ([id number]), videotape editor KEYLA CASTELLANOS ([id number]) on 07/03/2024 10:45:13 AM Referred By: Confirmed By: GARETH SHORT MD
[2024-07-01] MEDS: Ondansetron 4 MG/2 ML Vial IV ×2 (13:35→22:59)
--- NOTE | 2024-07-01 13:57 | PCM.HP.STD ---
HPI - General General Date of Admission: 07/01/24 Date of Service: 07/01/24 Chief Complaint: Chest pain HPI Narrative LIANA VALENCIA, is a 84 F with history of coronary artery disease with stenting, lupus, autoimmune hepatitis, colostomy due to perforated diverticulitis in 2021, hypothyroidism, GERD who presented [facility] ED 07/01/2024 with chest pain. She was seen in the ED 2 weeks ago due to elevation in aVR with ST depressions in inferior lateral leads and was transferred [facility] as she [facility]. She was medically managed there with increase of carvedilol to 12.5 mg twice daily and continued on aspirin and Plavix, family reports there was no heart cath and she was just medically managed and discharged home. This a.m. she developed chest pain and pressure 2 hours prior to arrival, initially improved so she did not come to the ED but then it subsequently worsened again prompting her to come to the ED. In the ED her EKG did demonstrate changes concerning for ischemia on her troponins initially were 196 and then increased to 1500 and then increased to 3800. Patient placed on heparin drip and [facility] contacted who accepted patient for transfer however will not have a bed today so hospitalist contacted for admission. Patient evaluated at bedside she reports that since being on the heparin drip she does not feel back to normal but does feel better than she did prior to coming into the hospital, did feel little bit sick to her stomach earlier and still gets the chest pressure sometimes but has not yet received her a.m. medications she has been in the hospital. [place] a little short of breath after she was nauseous earlier but this is resolved, has a chronic dry cough but nothing different than usual. Little bit of generalized abdominal pain but nothing focal or severe [facility] Medical History Osteoporosis Congestive heart failure (CHF) DVT (deep venous thrombosis) MGUS (monoclonal gammopathy of unknown significance) Secondary adrenal insufficiency Loss of hearing Wears glasses History of Clostridium difficile infection Forgetfulness History of steroid therapy Walker as ambulation aid Bladder disease Low iron Fatty liver Easy bruising Dietary restriction Difficulty swallowing Difficulty chewing History of hiatal hernia Colostomy in place Gastric reflux History of edema History of echocardiogram Cardiology follow-up encounter History of CHF (congestive heart failure) History of irregular heartbeat Heart attack (~03/2022) Abdominal pain Bloating symptom Bright red blood per rectum Presence of stent in coronary artery (~04/06/22) Elevated troponin History of non-ST elevation myocardial infarction (NSTEMI) Nonrheumatic aortic (valve) stenosis with insufficiency Nonrheumatic mitral valve stenosis with insufficiency Pulmonary arterial hypertension Aortic insufficiency Severe mitral regurgitation Chronic hyponatremia Idiopathic thrombocytopenia Macular degeneration Lupus Rheumatic fever Hearing loss, right Hearing loss, left Hyperthyroidism Osteopenia Hepatitis Non-smoker Migraines Diverticulitis Adrenal insufficiency NASAL POLYP REMOVED History of left heart catheterization (LHC) (~03/27/22) 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 Tachycardia Heart disease Glaucoma Hypothyroidism Monoclonal gammopathies Hypertension Home Medications ?Medication ?Instructions ?Recorded ?Last Taken ?Type hydroxychloroquine 200 mg tablet 200 mg PO DAILYCM lupus 06/23/17 05/28/24 History levothyroxine 75 mcg tablet 75 mcg PO DAILY thyroid 06/23/17 05/14/24 History cholecalciferol (vitamin D3) 50 2,000 unit PO DAILY SUPPLEMENT 07/30/19 05/28/24 History mcg (2,000 unit) capsule atorvastatin 40 mg tablet 40 mg PO DAILY 05/04/22 05/28/24 History clopidogrel 75 mg tablet (Plavix) 75 mg PO DAILY 05/04/22 05/28/24 History ferrous sulfate 325 mg (65 mg 325 mg PO Q OTHER DAY 05/24/22 05/13/24 History iron) tablet Lactobacillus acidophilus 10 10,000 mmu cells PO DAILY IMMUNE 07/13/22 05/28/24 History billion cell capsule (Probiotic) HEALTH aspirin 81 mg tablet,delayed 81 mg PO DAILY 07/13/22 05/28/24 History release (Adult Low Dose Aspirin) cyanocobalamin (vitamin B-12) 100 100 mcg PO DAILY 07/13/22 05/28/24 History mcg tablet hydrocortisone 10 mg tablet 10 mg PO DAILY #90 tabs 04/26/23 05/28/24 Rx carvedilol 6.25 mg tablet 12.5 mg PO Q12H 06/12/23 05/28/24 History isosorbide mononitrate 30 mg 15 mg PO DAILY 06/12/23 05/28/24 History tablet,extended release 24 hr torsemide 20 mg tablet 20 mg PO QDAY 03/28/24 05/28/24 History ranolazine 500 mg tablet,extended 500 mg PO QHS 05/13/24 05/28/24 History release,12 hr budesonide 3 mg 3 mg PO DAILY inflammation #30 ea 05/19/24 05/28/24 Rx capsule,delayed,extended release potassium chloride 10 mEq 10 meq PO DAILY 05/29/24 05/28/24 History capsule,extended release bimatoprost 0.01 % eye drops 1 drp EACH EYE DAILY 06/17/24 Unknown History (Lumigan) [id number]-[id number] 2 cap PO TID 06/17/24 Unknown History 12,000-38,000-60,000 unit capsule,delayed rel (Creon) pantoprazole 20 mg tablet,delayed 20 mg PO BID 06/17/24 Unknown History release Allergy/AdvReac Type Severity Reaction Status Date / Time Penicillins (PCN) Allergy Hives Verified 07/01/24 04:52 Sulfa (Sulfonamide AdvReac Severe Rash Verified 07/01/24 04:52 Antibiotics) griseofulvin (From Priti-PEG AdvReac Intermediate Other Verified 07/01/24 04:52 (ultramicrosize)) azathioprine (From Imuran) AdvReac Vomiting Verified 07/01/24 04:52 colchicine AdvReac Other Verified 07/01/24 04:52 doxycycline AdvReac Rash Verified 07/01/24 04:52 famotidine (From Pepcid) AdvReac Other Verified 07/01/24 04:52 Family History Father Heart disease Pacemaker Mother Heart disease Brother Myocardial infarction Sister Myocardial infarction Heart disease Surgical History H/O colonoscopy History of sinus surgery H/O dilation and curettage Presence of coronary angioplasty implant and graft Status post colon resection (~12/2021) h/o mass removed from hip H/O cataract extraction H/O tubal ligation Hx of cholecystectomy Social History household members: spouse number of children: 5 current occupational status: retired Smoking Status: Never smoker alcohol intake: never substance use type: does not use caffeine: No additional social history: Barbara Sanford-Daughter- Manages Medical care ROS ROS Narrative General: Denies fever/chills HENT: Denies headache, denies stuffy nose, denies sore throat EYES: Denies changes in vision Resp: Dry cough, did have a little bit of shortness of breath but this is improved Cardiac: Chest pain is improved, chest pressure waxes and wanes but overall improved from before arrival GI: Has chronic ostomy, little bit of abdominal discomfort and nausea : Denies changes in urination Extremity: Denies swelling MSK: Has felt some weakness in her arms Neuro: Denies any numbness/tingling Heme: A lot of bruising Skin: Denies rashes Psychiatric: No complaints voiced Vital Signs Vital Signs Vital Signs: 07/01/24 04:51 07/01/24 05:02 07/01/24 05:51 Temperature 97.1 F L Temperature Source Oral Pulse Rate 107 H 97 Respiratory Rate 19 H 19 H Blood Pressure 150/69 H 136/63 H Blood Pressure Mean 96 87 Pulse Ox 96 95 96 Oxygen Delivery Method Nasal Cannula Nasal Cannula Nasal Cannula Oxygen Flow Rate (L/min) 2 2 Fraction of Inspired Oxygen (FIO2) 07/01/24 06:00 07/01/24 07:00 07/01/24 07:57 Temperature Temperature Source Pulse Rate 94 90 77 Respiratory Rate 18 18 18 Blood Pressure 126/63 H 117/48 L 117/48 L Blood Pressure Mean 84 71 71 Pulse Ox 98 96 95 Oxygen Delivery Method Nasal Cannula Nasal Cannula Oxygen Flow Rate (L/min) 2 Fraction of Inspired Oxygen (FIO2) 07/01/24 09:00 07/01/24 10:00 07/01/24 11:00 Temperature Temperature Source Pulse Rate 92 77 101 H Respiratory Rate 20 H 18 13 Blood Pressure 117/58 L 123/53 H 122/54 H Blood Pressure Mean 77 76 76 Pulse Ox 97 98 98 Oxygen Delivery Method Nasal Cannula Room Air Nasal Cannula Oxygen Flow Rate (L/min) 2 Fraction of Inspired Oxygen (FIO2) 07/01/24 12:00 07/01/24 13:00 07/01/24 13:19 Temperature 98 F Temperature Source Pulse Rate 71 111 H 71 Respiratory Rate 18 15 18 Blood Pressure 131/60 H 119/67 131/60 H Blood Pressure Mean 83 84 83 Pulse Ox 97 98 97 Oxygen Delivery Method Nasal Cannula Oxygen Flow Rate (L/min) Fraction of Inspired Oxygen (FIO2) 2 Weight Weight: 51 kg Body Mass Index (BMI) 23.5 Physical Exam Narrative General: Alert, no apparent distress HEENT: Atraumatic, normocephalic Eyes: Anicteric, normal conjunctiva, extraocular movements grossly intact Neck: Supple Respiratory: Little bit diminished at the bases, normal respiratory effort Cardiovascular: Sinus tachycardia GI: Soft, nontender, nondistended Extremities: No edema Musculoskeletal: Moving all extremities Neuro: No overt focal neurological deficits Skin: Diffuse bruising Psych: Cooperative Results Lab / Micro Data 07/01/24 05:02 07/01/24 05:02 Labs: Laboratory Results - last 24 hr 07/01/24 05:02: WBC 10.5, RBC 3.73 L, Hgb 11.9 L, Hct 36.4 L, MCV 97.6, MCH 31.9, MCHC 32.7, RDW Std Deviation 59.7 H, RDW Coeff of Samreen 17.0 H, Plt Count 196, MPV 9.7, Immature Gran % (Auto) 2.900 H, Neut % (Auto) 72.0 H, Lymph % (Auto) 15.6 L, [place] % (Auto) 6.4, Eos % (Auto) 2.4, Baso % (Auto) 0.7, Absolute Neuts (auto) 7.6, Absolute Lymphs (auto) 1.64, Nucleated RBC % 0, PT 13.6, INR 1.0, APTT 21.9 L, Sodium 136, Potassium 3.7, Chloride 103, Carbon Dioxide 24.0, Anion Gap 9, BUN 21 H, Creatinine 1.08 H, Estim Creat Clear Calc 27.85, Est GFR (MDRD) Af Amer 62, Est GFR (MDRD) Non-Af 51 L, BUN/Creatinine Ratio 19.4, Glucose 126 H, Calcium 9.4, Troponin I High Sens 196 H* 07/01/24 07:10: Troponin I High Sens 1517 H* Imaging Radiology Impression Chest X-Ray 07/01/24 04:59 IMPRESSION: No significant interval change since 06/17/2024. Stable findings of mild cardiac decompensation with cardiomegaly, pulmonary venous hypertension and interstitial pulmonary edema. No pneumonia. Electronically Signed: Misha Castro MD at 6:30 EST , Assessment & Plan Assessment/Plan (1) Acute coronary syndrome: PLAN: Plan #NSTEMI suspect type I -Patient transferred to [facility] 2 weeks ago but was medically managed -Re-presented with chest pain with elevated troponins up trended to 3800 and EKG changes, though her pain is improved with chest pressure waxing and waning but feeling better than when she originally arrived an EKG possibly with some slight improvement though still abnormal -Currently pending transfer to [facility] however bed will likely not be available right away so hospitalist contacted for admission -Did discuss with [facility] psych sales specialist on-call and was advised to continue home medications and heparin drip while awaiting transfer and to contact him if patient worsens -Continue aspirin, Plavix, statin, beta-lorie, heparin drip -Discussed CODE STATUS with patient and family at bedside and currently she would still like to remain full code # Known history of coronary artery disease with history of stenting -With LAD lesion that is being medically managed -Continue medical management as above, awaiting transfer to [facility] #Hypothyroidism -Continue Synthroid # History of lupus -On hydroxychloroquine, continue # History of colostomy -Patient with colostomy bag since 2021 after a emergency surgery for perforated diverticulitis #GERD -Continue PPI #DVT ppx: On heparin drip Cesia Reyna MD Charges/Coding Visit Charges Inpatient E&M: 68210 Init Hosp L2
[2024-07-01 14:02] LABS: Troponin-I HS 3806 pg/mL (3.0-54.0)
[2024-07-01 15:12] LABS: Partial Thromboplast Time 96.4 Seconds (24.1-36.2)
[2024-07-01] MEDS: Carvedilol 12.5 MG Tablet PO (15:12)
[2024-07-01] MEDS: Atorvastatin Calcium 40 MG Tablet PO (15:12)
[2024-07-01] MEDS: Clopidogrel Bisulfate 75 MG Tablet PO (15:12)
--- NOTE | 2024-07-01 16:24 | CM.ED ---
Social work Reason for referral: verification of advance directives Referral source: case find This SW identified need to verify patient?s advance directives. Entered patient?s room and introduced self and role at [facility]. Patient?s daughter, Marga, and granddaughter, Janel, were bedside. Permission given to talk in front of patient?s guests. Patient stated she was being transferred to [facility] and was just waiting on a bed. Patient?s daughter stated knowing patient would need to be admitted at [facility] if a bed at [facility] was not available soon. Patient stated feeling tired and patient?s daughter stated patient had just had a heart attack 2 weeks prior. Patient?s family requested a transfer to [facility] due to patient?s heart doctor being there. Active listening used as patient and patient?s guests spoke of patient?s health journey. This SW asked about advance directives. Patient stated patient?s was her HCPOA, but patient?s has . Patient was offered to update advance directives, but patient denied need for this, stating patient?s daughters work together to make decisions on patient?s health needs. This SW educated on reasons for the advance directives and reminded patient that the decision was ultimately the patients? decision to make. Patient?s daughter, Marga, stated that one of patient?s daughters is always present with patient when patient needs to be in the hospital. Marga denied need to advance directives as well. This SW inquired about further needs; patient and patient guests denied. SW to follow as needed. Plan: transfer to [facility] per request; awaiting bed; may need to admit to acute if bed is not available in a timely manner. Brandy Carlson, MOBILE APPLICATION DEVELOPMENT LEAD, VAMP MARKER
--- NOTE | 2024-07-01 16:37 | CASEMGMT ---
Social work Patient reports having previous advance directives with her listed as her HCPOA. Patient's has since and patient denies need to update her advance directives. Patient states her two daughters, Marga and Barbara, work together to make decisions for patient and can continue to do so should patient not be able to decide herself. Brandy Carlson, RESIDENT CARE SUPERVISOR, PROJECT DESIGNER
[2024-07-01] MEDS: Isosorbide Mononitrate 30 MG Tablet 15 MG PO (16:50)
[2024-07-01] MEDS: Torsemide 20 MG Tablet PO (17:18)
[2024-07-01] MEDS: OPTH EACH EYE (20:21)
[2024-07-01] MEDS: BIMATOPROST 0.01% EACH EYE (20:21)
[2024-07-01] MEDS: Pantoprazole Sodium 20 MG Tablet PO (20:22)
[2024-07-01] MEDS: Ranolazine 500 MG Tablet PO (20:22)
[2024-07-01] MEDS: 0.9% Saline Lock 10 ML Syringe IV (22:59)
[2024-07-02] VITALS (23 sets, daily range): BP systolic 87–121; BP diastolic 42–87; PULSE 87–107; RESP 21–33; TEMP 36.7–37.8; O2SAT 93–98; BMI 23.6
[2024-07-02] MEDS: 0.9% Saline Lock 10 ML Syringe IV ×2 (05:36→20:42)
[2024-07-02] MEDS: Levothyroxine 75 MCG Tablet PO (05:38)
[2024-07-02 05:49] LABS: Absolute Lymphocyte Count 1.94 X10^3/uL (0.83-4.51); Absolute Neutrophil Count 7.2 X10^3/uL (2.0-7.7); Basophil# 0.05 X10^3/uL; Basophil% 0.5 % (0-1); Eosinophil# 0.22 X10^3/uL; Eosinophils% 2.1 % (0-5); Hematocrit 32.3 % (37-47); Hemoglobin 10.9 g/dL (12.0-15.0); Lymphocyte # 1.94 X10^3/ul (0.83-4.51); Lymphocyte % 18.8 % (19-41); Mean Corp Hgb Conc 33.7 g/dL (32-36); Mean Corpuscular Hgb 32.5 pg (27.0-32.0); Mean Corpuscular Volume 96.4 fL (81-99); Mean Platelet Vol. 9.6 fl (6.2-12.0); Monocyte# 0.78 X10^3/uL; Monocyte% 7.5 % (0-10); NRBC Flagged by Analyzer 0 % (0-5); Neutrophil # 7.18 X10^3/uL (2.7-7.7); Neutrophil % 69.5 % (47-70); Platelet Count 188 K/mm3 (150-450); RBC Distribution Width CV 16.8 % (11.6-14.6); RBC Distribution Width SD 58.6 fl (35.1-43.9); Red Blood Count 3.35 M/mm3 (4.2-5.4); White Blood Count 10.3 K/mm3 (4.4-11.0)
[2024-07-02 06:09] LABS: Partial Thromboplast Time 55.5 Seconds (24.1-36.2)
[2024-07-02 06:15] LABS: Phosphorus 4.5 mg/dL (2.5-4.9)
[2024-07-02 06:18] LABS: ALB/GLOB Ratio 0.7 RATIO (0.9-2.4); AST(SGOT) 111 U/L (15-37); Alanine Aminotransfer ALT/SGPT 34 U/L (13-56); Albumin, Serum 2.7 g/dL (3.2-5.0); Alkaline Phosphatase 63 U/L (45-117); Anion Gap 8 (5-15); BUN 19 mg/dL (7-18); BUN/Creat Ratio 16.1 RATIO (10-20); Bilirubin, Direct 0.44 mg/dL (0.00-0.30); Calcium,Total 8.4 mg/dL (8.5-10.1); Chloride 101 mmol/L (98-107); Creatinine, Serum 1.18 mg/dL (0.55-1.02); EST Glomerular Filtration Rate 46 mL/min (>60); Est Glom Filt Rate - Afr Amer 56 mL/min (>60); Estimated Creatinine Clearance 25.49 ml/min; Globulin 3.9 g/dL (2.2-4.2); Glucose 117 mg/dL (74-106); Potassium 3.2 mmol/L (3.5-5.1); Protein, Total 6.6 g/dL (6.4-8.2); Sodium Level 136 mmol/L (136-145)
[2024-07-02] MEDS: POTASSIUM CHLORIDE 10 MEQ CAPSULE.ER PO (08:56)
[2024-07-02] MEDS: Creon 12,000 unit DR CapSULE 2 CAP PO ×3 (08:56→16:34)
[2024-07-02] MEDS: POTASSIUM CHLORIDE 10 MEQ CAPSULE.ER 20 MEQ PO (08:57)
[2024-07-02] MEDS: Hydroxychloroquine 200 MG Tablet PO (08:57)
[2024-07-02] MEDS: Hydrocortisone 10 MG Tablet PO (08:58)
[2024-07-02] MEDS: Torsemide 20 MG Tablet PO (08:58)
[2024-07-02] MEDS: Budesonide 3 MG CAPSULE.EC PO (08:58)
[2024-07-02] MEDS: Clopidogrel Bisulfate 75 MG Tablet PO (08:59)
[2024-07-02] MEDS: Pantoprazole Sodium 20 MG Tablet PO ×2 (08:59→20:41)
--- NOTE | 2024-07-02 10:13 | CASEMGMT ---
Insurance review for hospitals In-network with [facility] insurance if transfer is recommended is as follows: [employer] [facility], [facility], [facility], [place], [facility], [facility], [facility], [facility], [place], [facility] ([facility]), and [facility] RN CM
--- NOTE | 2024-07-02 11:42 | PCM.PN.HOSP ---
Reason for Visit Reason for Visit: Diagnoses Acute ischemic heart disease, unspecified (07/01/24) Subjective Subjective Saw patient at bedside this morning, daughter present. Patient was fatigued appearing but otherwise sitting up comfortably in bed and in no acute distress. She denied any chest pain or discomfort this morning. Had discussion with patient and daughter this morning regarding goals of care. On review of [facility] records, patient had left heart cath done at [facility] on 03/11 that showed left main with distal segment heavily calcified with 95% stenosis, LAD with ostial?proximal segment 95% stenosis (difficult visualization of mid and distal segments), LCx with ostial?proximal segment 90% stenosis (again difficult visualization of mid and distal segments), RCA with patent stents in proximal and mid segments. Echo during that admission also showed moderate to severe aortic stenosis and moderate to severe mitral regurgitation. Case was discussed collaboratively there and it was determined that PCI of the left system would be too high risk so medical management was recommended. Patient was hospitalized here for an NSTEMI at beginning of June and was transferred to [facility], and on review of those records patient was treated with medical management only and then discharged home. I discussed with patient and daughter my concern that on transfer to [facility] this time, I suspect they will not do anything other than medical management again. Unfortunately given her significant disease, patient will be at high risk for ongoing chest pain and potentially worsening heart function moving forward. Also given these things, I have reservations about the utility of resuscitation for her in the event that she went into cardiac arrest. Patient and daughter appreciated this discussion. Daughter noted that with regard to CODE STATUS, this is the patient's decision ultimately but patient's was given a very small chance to live after medical issues in the past but survived. Patient is undecided on CODE STATUS. Will remain full code for now. Daughter expressed that they are hopeful that she will consider an interventional procedure on transfer down there this time given her ongoing issues. Nursing staff called down to [facility] and transfer remains in process at this time. Objective Data Objective Data Vital Signs: Vital Signs Temp Pulse Resp BP Pulse Ox O2 Del Method O2 Flow Rate 98.8 F 97 29 H 94/46 L 93 Nasal Cannula 2 07/02/24 08:00 07/02/24 11:00 07/02/24 11:00 07/02/24 11:00 07/02/24 11:00 07/02/24 11:00 07/02/24 11:00 FiO2 2 07/01/24 12:00 Oxygen Flow Rate (L/min) 2 Oxygen Delivery Method Nasal Cannula Weight: 51.2 kg Body Mass Index (BMI) 23.6 Intake & Output: Intake and Output for Last 24 Hours 06/30/24 07/01/24 07/02/24 23:59 23:59 23:59 Intake Total 219.78 / 419.78 760.3 / 760.3 Output Total 860 / 860 Balance 219.78 / 19.78 -99.7 / -99.7 Lab / Micro Data 07/02/24 05:30 07/02/24 05:30 Labs: Laboratory Results - last 24 hr 07/01/24 13:33: Troponin I High Sens 3806 H* 07/01/24 14:24: APTT 96.4 H* 07/01/24 22:50: APTT 45.0 H 07/02/24 05:30: WBC 10.3, RBC 3.35 L, Hgb 10.9 L, Hct 32.3 L, MCV 96.4, MCH 32.5 H, MCHC 33.7, RDW Std Deviation 58.6 H, RDW Coeff of Samreen 16.8 H, Plt Count 188, MPV 9.6, Immature Gran % (Auto) 1.600 H, Neut % (Auto) 69.5, Lymph % (Auto) 18.8 L, [place] % (Auto) 7.5, Eos % (Auto) 2.1, Baso % (Auto) 0.5, Absolute Neuts (auto) 7.2, Absolute Lymphs (auto) 1.94, Nucleated RBC % 0, APTT 55.5 H, Sodium 136, Potassium 3.2 L, Chloride 101, Carbon Dioxide 27.0, Anion Gap 8, BUN 19 H, Creatinine 1.18 H, Estim Creat Clear Calc 25.49, Est GFR (MDRD) Af Amer 56 L, Est GFR (MDRD) Non-Af 46 L, BUN/Creatinine Ratio 16.1, Glucose 117 H, Calcium 8.4 L, Phosphorus 4.5, Magnesium 2.0, Total Bilirubin 1.80 H, Direct Bilirubin 0.44 H, AST 111 H, ALT 34, Alkaline Phosphatase 63, Total Protein 6.6, Albumin 2.7 L, Globulin 3.9, Albumin/Globulin Ratio 0.7 L, TSH 4.570 H Physical Exam Const alert and no apparent distress Constitutional Narrative: Elderly female, chronically ill-appearing, fatigued appearing, otherwise sitting up fairly comfortably in bed, conversing normally, in no acute distress. General Appearance: cooperative and comfortable HEENT normocephalic, head/scalp atraumatic, hearing grossly normal bilaterally, nasal mucous membranes and turbinates normal and moist oral mucous membranes Eyes PERRL, EOMs intact bilaterally and conjunctivae normal Neck full ROM Chest inspection of chest normal Resp normal respiratory effort and no use of accessory muscles Resp Narrative: Breathing comfortably on 2 L nasal cannula at rest. Mildly decreased breath sounds in bilateral lung bases, no wheezing or crackles noted. Cardio regular rate and regular rhythm Cardio Narrative: Systolic murmur noted. GI normal to inspection, nondistended, normoactive bowel sounds, soft to palpation, non-tender and non-distended Back/Spine normal ROM Extremity normal to inspection and no pedal edema Skin Skin Narrative: Significant bruising noted on patient's arms and legs in setting of dual antiplatelet therapy. Neuro moves all extremities Speech: speech normal Psych mental status grossly normal Assessment & Plan Assessment/Plan (1) Non-ST elevation [place] (NSTEMI): (2) History of CAD (coronary artery disease): PLAN: Plan Patient is an 84-year-old female who presented [facility] ED on 07/01/24 with recurrent chest pain. 1. NSTEMI suspected type I ? Had similar presentation 2 weeks ago and was transferred to [facility] but was only medically managed there given her history as noted below. Represented here with chest pain with troponins uptrending to 3800 and EKG changes. Discussed with [facility] educational paraprofessional on-call who advised continuing heparin drip and no medications while awaiting transfer. Accepted for transfer to [facility], awaiting bed placement. Continue home Plavix and statin. Given history as noted below will hold home baby aspirin, beta-lorie and nitrate for now. 2. History of severe CAD with stenting, moderate to severe aortic stenosis, moderate to severe mitral regurgitation, hypertension, hyperlipidemia ? Has followed with [facility] cardiology. Last cath on 03/11 showed left main with distal segment heavily calcified with 95% stenosis, LAD with ostial?proximal segment 95% stenosis (difficult visualization of mid and distal segments), LCx with ostial?proximal segment 90% stenosis (again difficult visualization of mid and distal segments), RCA with patent stents in proximal and mid segments. Echo around that time showed moderate to severe aortic stenosis and moderate to severe mitral regurgitation. [facility] cardiology has noted that patient is not a candidate for intervention given the high risk nature of PCI. Continue treatment as above. 3. CKD stage III ? Creatinine 1.08 on admit, baseline 1.0-1.2. Trend daily BMP and urine output. 4. Mild iron deficiency anemia ? Hemoglobin 11.9 on admit, decreased to 10.9 on hospital day 2. Monitor CBC daily. Continue home iron supplement. Chronic medical conditions: ? Hypothyroidism: Continue home Synthroid. ? History of lupus: Continue home hydroxychloroquine. ? History of colostomy: Patient with colostomy bag since 2021 after emergency surgery for perforated diverticulitis. ? GERD: Continue home PPI. DVT prophylaxis: Not indicated, on heparin drip CODE STATUS: Full code, verified Expected disposition: Transfer to [facility] when bed is available Total clinical time spent by myself addressing the patient's medical issues, reviewing all the data, and collaborating with patient's care team: 50 minutes. Charges/Coding Visit Charges Inpatient E&M: 36413 Subs Hosp L3
[2024-07-02 13:38] LABS: Partial Thromboplast Time 52.6 Seconds (24.1-36.2)
--- NOTE | 2024-07-02 17:54 | NURSING ---
Called report to Suman TURCIOS at [facility]
--- NOTE | 2024-07-02 20:00 | CM.ED ---
Social Work KARRIE received a call from ICU nurse, Yara, stating that [facility] would be charging patients family 1300.00 for transport to [facility] and were requeting money up front, Yara requesting that KARRIE speak with family. This SW spoke with patients daughter over the phone, explaining to daughter that [facility] would be asking for money up front for transporting patient and that the cost would likely be $1300.00. Patients daughter expressed understanding and stated she would make sure she had her credit card within her possession. KARRIE informed daughter that she should be expecting a phone call from [facility] billing department prior to patient transfer. Patient daughter thanked KARRIE for the information. KARRIE called Yara back to update on conversation with family. Elizabeth Elkins, CHILD NURSE, APPLIED RESEARCHER
[2024-07-02] MEDS: OPTH EACH EYE (20:41)
[2024-07-02] MEDS: BIMATOPROST 0.01% EACH EYE (20:41)
[2024-07-02] MEDS: Atorvastatin Calcium 40 MG Tablet PO (20:41)
[2024-07-02] MEDS: Ranolazine 500 MG Tablet PO (20:42)
[2024-07-02 21:06] LABS: Partial Thromboplast Time 79.5 Seconds (24.1-36.2)
[2024-07-02] MEDS: HEPARIN/D5w 25,000 UNITS 25,000 UNITS/250 ML IV.SOLN. 6 UNITS CONT INF (23:09)
--- NOTE | 2024-07-02 23:45 | NURSING ---
Report given to medic from [facility]. Belongings sent with daughter.
--- NOTE | 2024-07-03 07:17 | DS.PCM_ITS ---
Providers Date of Admission: 07/01/24 Date of Discharge: 07/03/24 Primary Care Physician: Dr. Ashvin Cardenas MD Reason For Visit: NSTEMI Diagnosis Discharge Diagnosis (1) Non-ST elevation NH (NSTEMI): Status: Acute Code(s): I21.4 - Non-ST elevation (NSTEMI) myocardial infarction (2) History of CAD (coronary artery disease): Status: Acute Code(s): Z86.79 - Personal history of other diseases of the circulatory system Medications at Discharge Home Medications hydroxychloroquine 200 mg tablet 200 mg PO DAILYCM lupus 06/23/17 levothyroxine 75 mcg tablet 75 mcg PO DAILY thyroid 06/23/17 cholecalciferol (vitamin D3) 50 mcg (2,000 unit) capsule 2,000 unit PO DAILY SUPPLEMENT 07/30/19 atorvastatin 40 mg tablet 40 mg PO DAILY 05/04/22 clopidogrel 75 mg tablet (Plavix) 75 mg PO DAILY 05/04/22 ferrous sulfate 325 mg (65 mg iron) tablet 325 mg PO Q OTHER DAY 05/24/22 Lactobacillus acidophilus 10 billion cell capsule (Probiotic) 10,000 mmu cells PO DAILY IMMUNE HEALTH 07/13/22 aspirin 81 mg tablet,delayed release (Adult Low Dose Aspirin) 81 mg PO DAILY 07/13/22 cyanocobalamin (vitamin B-12) 100 mcg tablet 100 mcg PO DAILY 07/13/22 hydrocortisone 10 mg tablet 10 mg PO DAILY #90 tabs 04/26/23 carvedilol 6.25 mg tablet 12.5 mg PO Q12H 06/12/23 isosorbide mononitrate 30 mg tablet,extended release 24 hr 15 mg PO DAILY 06/12/23 torsemide 20 mg tablet 20 mg PO QDAY 03/28/24 ranolazine 500 mg tablet,extended release,12 hr 500 mg PO QHS 05/13/24 budesonide 3 mg capsule,delayed,extended release 3 mg PO DAILY inflammation #30 ea 05/19/24 potassium chloride 10 mEq capsule,extended release 10 meq PO DAILY 05/29/24 bimatoprost 0.01 % eye drops (Lumigan) 1 drp EACH EYE DAILY 06/17/24 bhvrqe-[id number]-[id number] 12,000-38,000-60,000 unit capsule,delayed rel (Creon) 2 cap PO TID 06/17/24 pantoprazole 20 mg tablet,delayed release 20 mg PO BID 06/17/24 Hospital Course Operations None Procedures EKG and - (Chest x-ray) Summary of Care Provided Minutes Spent on Discharge: 35 Hospital Course: Patient is an 84-year-old female who presented [facility] ED on 07/01/24 with recurrent chest pain. Hospital course as noted below. Transferred to [facility] in stable condition. 1. NSTEMI suspected type I ? Had similar presentation 2 weeks ago and was transferred to [facility] but was only medically managed there given her history as noted below. Represented here with chest pain with troponins uptrending to 3800 and EKG changes. Discussed with [facility] closet builder on-call who advised continuing heparin drip and no medications while awaiting transfer. Continue all other home medications. Stable for transfer to [facility] on 07/03. 2. History of severe CAD with stenting, moderate to severe aortic stenosis, moderate to severe mitral regurgitation, hypertension, hyperlipidemia ? Has followed with [facility] cardiology. Last cath on 03/11 showed left main with distal segment heavily calcified with 95% stenosis, LAD with ostial?proximal segment 95% stenosis (difficult visualization of mid and distal segments), LCx with ostial?proximal segment 90% stenosis (again difficult visualization of mid and distal segments), RCA with patent stents in proximal and mid segments. Echo around that time showed moderate to severe aortic stenosis and moderate to severe mitral regurgitation. [facility] cardiology has noted that patient is not a candidate for intervention given the high risk nature of PCI. Continue treatment as above. 3. CKD stage III ? Creatinine 1.08 on admit, baseline 1.0-1.2. Stable. 4. Mild iron deficiency anemia ? Hemoglobin 11.9 on admit, decreased to 10.9 on hospital day 2. Continue to monitor CBCs. Continue home iron supplement. Chronic medical conditions: ? Hypothyroidism: Continue home Synthroid. ? History of lupus: Continue home hydroxychloroquine. ? History of colostomy: Patient with colostomy bag since 2021 after emergency surgery for perforated diverticulitis. ? GERD: Continue home PPI. Total clinical time spent by myself addressing the patient's medical issues, reviewing all the data, and collaborating with patient's care team: 35 minutes. Physical Exam Const alert and no apparent distress Constitutional Narrative: Elderly female, chronically ill-appearing, fatigued appearing, otherwise sitting up fairly comfortably in bed, conversing normally, in no acute distress. General Appearance: cooperative and comfortable HEENT normocephalic, head/scalp atraumatic, hearing grossly normal bilaterally, nasal mucous membranes and turbinates normal and moist oral mucous membranes Eyes PERRL, EOMs intact bilaterally and conjunctivae normal Neck full ROM Chest inspection of chest normal Resp normal respiratory effort and no use of accessory muscles Resp Narrative: Breathing comfortably on 2 L nasal cannula at rest. Mildly decreased breath sounds in bilateral lung bases, no wheezing or crackles noted. Cardio regular rate and regular rhythm Cardio Narrative: Systolic murmur noted. GI normal to inspection, nondistended, normoactive bowel sounds, soft to palpation, non-tender and non-distended Back/Spine normal ROM Extremity normal to inspection and no pedal edema Skin Skin Narrative: Significant bruising noted on patient's arms and legs in setting of dual antiplatelet therapy. Neuro moves all extremities Speech: speech normal Psych mental status grossly normal Weight / BMI Weight Weight: 51.2 kg Body Mass Index (BMI) 23.6 ABG / Lab / Microbiology Data 07/02/24 05:30 07/02/24 05:30 Laboratory: Laboratory Results - last 24 hr 07/02/24 12:53: APTT 52.6 H 07/02/24 19:40: APTT Cancelled 07/02/24 20:52: APTT 79.5 H D/C Instructions Discharge Diet: No restrictions DC O2, CPAP, BIPAP Needs PSN CPAP & BiPAP: BiPAP & CPAP Settings per PSN Fraction of Inspired Oxygen ( 2 07/01/24 12:00 FIO2) Home O2 Discharge instructions: No Meaningful Use Info Meaningful Use Meaningful Use Diagnoses (Choose all that apply): None applicable Ischemic Stroke Statin Dosing Therapy Reference: STATIN DOSE THERAPY REFERENCE: * Patients > 75 years receive moderate or high dose statin therapy. * Patients 75 years or YOUNGER should receive HIGH intensity statin dose unless contraindicated. You will be required to document reason for non-treatment if statin daily dose does not meet guidelines. HIGH DOSE STATIN THERAPY DAILY Atorvastatin > than or = to 40 mg Rosuvastatin > than or = to 20 mg Amlodipine + Atorvastatin > than or = to 2.5/40 mg Ezetimibe + Simvastatin 10/80 mg Simvastatin 80mg Discharge Plan Admission Admit Date/Time: 12/17/24 13:58 Primary Reason for Your Visit: Chest pain Attending Provider: Wolfgang Robbins Primary Care Provider: Ashvin Cardenas Consulting Providers: Cesia Reyna Discharge Orders/Prescriptions Prescriptions: Continued ferrous sulfate 325 mg (65 mg iron) tablet 325 mg PO Q OTHER DAY clopidogrel [Plavix] 75 mg tablet 75 mg PO DAILY atorvastatin 40 mg tablet 40 mg PO DAILY aspirin [Adult Low Dose Aspirin] 81 mg tablet,delayed release (DR/EC) 81 mg PO DAILY cyanocobalamin (vitamin B-12) 100 mcg tablet 100 mcg PO DAILY torsemide 20 mg tablet 20 mg PO QDAY levothyroxine 75 MCG tablet 75 mcg PO DAILY Rx Instructions: name brand synthroid hydroxychloroquine 200 MG tablet 200 mg PO DAILYCM cholecalciferol (vitamin D3) 2,000 UNIT capsule 2,000 unit PO DAILY Probiotic 10 billion cell capsule 10,000 mmu cells PO DAILY carvedilol 6.25 mg tablet 12.5 mg PO Q12H Patient Comments: TAKE BOTH 3.125MG AND 6.25MG isosorbide mononitrate 30 mg tablet extended release 24 hr 15 mg PO DAILY Patient Comments: TAKE ONE-HALF TABLET(15 MG) BY MOUTH DAILY EVERY MORNING. ranolazine 500 mg tablet extended release 12 hr 500 mg PO QHS potassium chloride 10 mEq capsule, extended release 10 meq PO DAILY Patient Comments: PT MIXES CONTENTS OF CAPSULE WITH CHOCOLATE PUDDING Creon 12,000-38,000 -60,000 unit capsule,delayed release(DR/EC) 2 cap PO TID Rx Instructions: administer with meals and/or snacks pantoprazole 20 mg tablet,delayed release (DR/EC) 20 mg PO BID Lumigan 0.01 % drops 1 drp EACH EYE DAILY hydrocortisone 10 mg tablet 10 mg PO DAILY Qty: 90 1RF budesonide 3 mg capsule,delayed,extend.release 3 mg PO DAILY Qty: 30 2RF Referrals / Follow Up: Ashvin Cardenas MD [Primary Care Provider] - Disposition Disposition (needs filled in before D/C Order can be placed): Acute Care Hospital Charges/Coding Visit Charges Inpatient E&M: 76303 Disch Hosp >30min
== END 2024-07-02 23:57 | disposition short-term general hospital (02) | DRG 281 ==
LOC: ED 10:09 → ICU 14:26
PROVIDERS: Emergency Medicine; Family Medicine; Admitting Provider Internal Medicine; Emergency Provider Emergency Medicine; PCP Family Medicine; Visit Provider Hospitalist
DX: I21.4 Non-ST elevation (NSTEMI) myocardial infarction (principal); E87.1 Hypo-osmolality and hyponatremia; I27.20 Pulmonary hypertension, unspecified; M32.9 Systemic lupus erythematosus, unspecified; I11.0 Hypertensive heart disease with heart failure; E03.9 Hypothyroidism, unspecified; K76.0 Fatty (change of) liver, not elsewhere classified; Z95.2 Presence of prosthetic heart valve; K75.4 Autoimmune hepatitis; Z93.3 Colostomy status; I50.9 Heart failure, unspecified; I25.10 Atherosclerotic heart disease of native coronary artery without angina pectoris; K21.9 Gastro-esophageal reflux disease without esophagitis; E78.00 Pure hypercholesterolemia, unspecified; I25.2 Old myocardial infarction; I08.0 Rheumatic disorders of both mitral and aortic valves; Z95.5 Presence of coronary angioplasty implant and graft; Z79.51 Long term (current) use of inhaled steroids; Z79.82 Long term (current) use of aspirin; Z79.02 Long term (current) use of antithrombotics/antiplatelets; Z79.52 Long term (current) use of systemic steroids; Z79.890 Hormone replacement therapy; Z86.718 Personal history of other venous thrombosis and embolism; Z86.19 Personal history of other infectious and parasitic diseases; Z99.89 Dependence on other enabling machines and devices; Z79.899 Other long term (current) drug therapy; H91.93 Unspecified hearing loss, bilateral; Z88.1 Allergy status to other antibiotic agents; Z88.2 Allergy status to sulfonamides; Z82.49 Family history of ischemic heart disease and other diseases of the circulatory system; Z90.49 Acquired absence of other specified parts of digestive tract; Z98.890 Other specified postprocedural states; M81.0 Age-related osteoporosis without current pathological fracture
CPT/HCPCS: 36415; 71045; 80048; 80053; 80076; 83735; 84100; 84443; 84484; 85025; 85610; 85730; 93005; 94762; 99285; A4216; J2405

== ENCOUNTER → 2024-07-17 | Outpatient (CLI) | payer MEDICARE, SELFPAY ==
[2024-07-17 18:24] LABS: Anion Gap 11 (5-15); BUN 33 mg/dL (7-18); BUN/Creat Ratio 22.6 RATIO (10-20); Calcium,Total 8.9 mg/dL (8.5-10.1); Chloride 92 mmol/L (98-107); Creatinine, Serum 1.46 mg/dL (0.55-1.02); EST Glomerular Filtration Rate 36 mL/min (>60); Est Glom Filt Rate - Afr Amer 44 mL/min (>60); Glucose 188 mg/dL (74-106); Potassium 3.5 mmol/L (3.5-5.1); Sodium Level 132 mmol/L (136-145)
== END | disposition home or self-care (01) ==
PROVIDERS: PCP Family Medicine
DX: I50.33 Acute on chronic diastolic (congestive) heart failure (principal)
CPT/HCPCS: 80048

== ENCOUNTER → 2024-07-24 | Outpatient (CLI) | payer MEDICARE, SELFPAY ==
[2024-07-24 17:26] LABS: Color, Urine Yellow (Yellow); Glucose, Dipstick Normal (Normal); Ketone-Dipstick Negative (Negative); Leukocyte Esterase-Dipstick 500 /ul (Negative); Nitrite-Dipstick Negative (Negative); Occult Blood-Urine 150 /ul (Negative); Protein-Dipstick 30 mg/dl (Negative); Specific Gravity, Urine 1.015 (1.002-1.030); Urine Bilirubin Dipstick Negative (Negative); Urine Clarity Cloudy (Clear); Urine Urobilinogen Normal (Normal)
[2024-07-24 17:32] LABS: Absolute Lymphocyte Count 1.37 X10^3/uL (0.83-4.51); Absolute Neutrophil Count 9.8 X10^3/uL (2.0-7.7); Basophil# 0.08 X10^3/uL; Basophil% 0.7 % (0-1); Eosinophil# 0.04 X10^3/uL; Eosinophils% 0.3 % (0-5); Hematocrit 36.4 % (37-47); Hemoglobin 11.8 g/dL (12.0-15.0); Lymphocyte # 1.37 X10^3/ul (0.83-4.51); Lymphocyte % 11.2 % (19-41); Mean Corp Hgb Conc 32.4 g/dL (32-36); Mean Corpuscular Hgb 31.6 pg (27.0-32.0); Mean Corpuscular Volume 97.6 fL (81-99); Mean Platelet Vol. 9.5 fl (6.2-12.0); Monocyte# 0.81 X10^3/uL; Monocyte% 6.6 % (0-10); NRBC Flagged by Analyzer 0 % (0-5); Neutrophil # 9.78 X10^3/uL (2.7-7.7); Neutrophil % 79.7 % (47-70); Platelet Count 222 K/mm3 (150-450); RBC Distribution Width CV 17.4 % (11.6-14.6); RBC Distribution Width SD 61.7 fl (35.1-43.9); Red Blood Count 3.73 M/mm3 (4.2-5.4); White Blood Count 12.3 K/mm3 (4.4-11.0)
[2024-07-24 17:35] LABS: Red Blood Cells-Urine 0-5 SEEN /hpf (0-5); Squamous Epithelial Cells - UA 0-5 SEEN /hpf (5-10); White Blood Cells >100 SEEN /hpf (0-5)
[2024-07-24 17:36] LABS: Bacteria 1+ /hpf (None Seen); Mucous, Urine 2+ /hpf (<or=2+); White Cell Cast 0-5 SEEN /lpf (None Seen)
[2024-07-24 17:51] LABS: BNP,B-Type NATRIURETIC PEPTIDE 921.5 pg/mL (0-100)
[2024-07-24 17:59] LABS: ALB/GLOB Ratio 0.8 RATIO (0.9-2.4); AST(SGOT) 21 U/L (15-37); Alanine Aminotransfer ALT/SGPT 31 U/L (13-56); Albumin, Serum 3.4 g/dL (3.2-5.0); Alkaline Phosphatase 77 U/L (45-117); Anion Gap 12 (5-15); BUN 38 mg/dL (7-18); BUN/Creat Ratio 28.6 RATIO (10-20); Calcium,Total 9.3 mg/dL (8.5-10.1); Chloride 94 mmol/L (98-107); Creatinine, Serum 1.33 mg/dL (0.55-1.02); EST Glomerular Filtration Rate 40 mL/min (>60); Est Glom Filt Rate - Afr Amer 49 mL/min (>60); Globulin 4.2 g/dL (2.2-4.2); Glucose 211 mg/dL (74-106); Potassium 3.5 mmol/L (3.5-5.1); Protein, Total 7.6 g/dL (6.4-8.2); Sodium Level 132 mmol/L (136-145)
== END | disposition home or self-care (01) ==
LOC: MTLAB 14:17
PROVIDERS: PCP Family Medicine; Referring Provider Internal Medicine Gastroenterology; Visit Provider Internal Medicine Gastroenterology
DX: I50.9 Heart failure, unspecified (principal); D64.9 Anemia, unspecified
CPT/HCPCS: 36415; 80053; 81001; 83880; 85025

== ENCOUNTER → 2024-08-27 | Outpatient (CLI) | payer MEDICARE, SELFPAY ==
[2024-08-27 15:28] LABS: Absolute Lymphocyte Count 1.95 X10^3/uL (0.83-4.51); Absolute Neutrophil Count 6.4 X10^3/uL (2.0-7.7); Basophil# 0.05 X10^3/uL; Basophil% 0.5 % (0-1); Eosinophil# 0.07 X10^3/uL; Eosinophils% 0.7 % (0-5); Hematocrit 38.3 % (37-47); Hemoglobin 12.2 g/dL (12.0-15.0); Lymphocyte # 1.95 X10^3/ul (0.83-4.51); Lymphocyte % 20.6 % (19-41); Mean Corp Hgb Conc 31.9 g/dL (32-36); Mean Corpuscular Hgb 31.5 pg (27.0-32.0); Mean Platelet Vol. 10.5 fl (6.2-12.0); Monocyte# 0.92 X10^3/uL; Monocyte% 9.7 % (0-10); NRBC Flagged by Analyzer 0 % (0-5); Neutrophil # 6.38 X10^3/uL (2.7-7.7); Neutrophil % 67.4 % (47-70); Platelet Count 154 K/mm3 (150-450); RBC Distribution Width CV 16.8 % (11.6-14.6); RBC Distribution Width SD 61.1 fl (35.1-43.9); Red Blood Count 3.87 M/mm3 (4.2-5.4); White Blood Count 9.5 K/mm3 (4.4-11.0)
[2024-08-27 15:34] LABS: BNP,B-Type NATRIURETIC PEPTIDE 677.4 pg/mL (0-100)
[2024-08-27 15:36] LABS: Anion Gap 10 (5-15); BUN 28 mg/dL (7-18); Chloride 96 mmol/L (98-107); Magnesium 1.8 mg/dL (1.6-2.6); Sodium Level 137 mmol/L (136-145)
[2024-08-27 16:44] LABS: Creatinine, Serum 1.17 mg/dL (0.55-1.02); EST Glomerular Filtration Rate 47 mL/min (>60); Est Glom Filt Rate - Afr Amer 57 mL/min (>60)
== END | disposition home or self-care (01) ==
LOC: MTLAB 10:58
PROVIDERS: PCP Family Medicine; Referring Provider Internal Medicine Interventional Cardiology; Visit Provider Internal Medicine Interventional Cardiology
DX: I25.10 Atherosclerotic heart disease of native coronary artery without angina pectoris (principal); I50.32 Chronic diastolic (congestive) heart failure; I35.0 Nonrheumatic aortic (valve) stenosis
CPT/HCPCS: 36415; 80051; 82565; 83735; 83880; 84520; 85025

== ENCOUNTER → 2024-08-28 | Outpatient (CLI) | payer MEDICARE, SELFPAY ==
[2024-08-28 17:36] LABS: Absolute Lymphocyte Count 1.89 X10^3/uL (0.83-4.51); Absolute Neutrophil Count 6.6 X10^3/uL (2.0-7.7); Basophil# 0.03 X10^3/uL; Basophil% 0.3 % (0-1); Eosinophil# 0.05 X10^3/uL; Eosinophils% 0.5 % (0-5); Hematocrit 41.4 % (37-47); Hemoglobin 12.7 g/dL (12.0-15.0); Lymphocyte # 1.89 X10^3/ul (0.83-4.51); Lymphocyte % 19.7 % (19-41); Mean Corp Hgb Conc 30.7 g/dL (32-36); Mean Corpuscular Hgb 30.8 pg (27.0-32.0); Mean Corpuscular Volume 100.5 fL (81-99); Mean Platelet Vol. 10.6 fl (6.2-12.0); Monocyte# 0.94 X10^3/uL; Monocyte% 9.8 % (0-10); NRBC Flagged by Analyzer 0 % (0-5); Neutrophil # 6.58 X10^3/uL (2.7-7.7); Neutrophil % 68.5 % (47-70); Platelet Count 158 K/mm3 (150-450); RBC Distribution Width CV 17.1 % (11.6-14.6); RBC Distribution Width SD 63.7 fl (35.1-43.9); Red Blood Count 4.12 M/mm3 (4.2-5.4); White Blood Count 9.6 K/mm3 (4.4-11.0)
[2024-08-28 17:58] LABS: ALB/GLOB Ratio 0.8 RATIO (0.9-2.4); AST(SGOT) 37 U/L (15-37); Alanine Aminotransfer ALT/SGPT 42 U/L (13-56); Albumin, Serum 3.5 g/dL (3.2-5.0); Alkaline Phosphatase 64 U/L (45-117); Anion Gap 11 (5-15); BUN 28 mg/dL (7-18); BUN/Creat Ratio 20.6 RATIO (10-20); Calcium,Total 9.3 mg/dL (8.5-10.1); Chloride 95 mmol/L (98-107); Creatinine, Serum 1.36 mg/dL (0.55-1.02); EST Glomerular Filtration Rate 39 mL/min (>60); Est Glom Filt Rate - Afr Amer 48 mL/min (>60); Globulin 4.3 g/dL (2.2-4.2); Glucose 147 mg/dL (74-106); Potassium 3.8 mmol/L (3.5-5.1); Protein, Total 7.8 g/dL (6.4-8.2); Sodium Level 135 mmol/L (136-145); Uric Acid 11.7 mg/dL (2.6-6.0)
[2024-08-28 18:34] LABS: Magnesium 2.1 mg/dL (1.6-2.6)
== END | disposition home or self-care (01) ==
PROVIDERS: PCP Family Medicine; Referring Provider Internal Medicine Interventional Cardiology; Visit Provider Internal Medicine Interventional Cardiology
DX: I25.10 Atherosclerotic heart disease of native coronary artery without angina pectoris (principal); I50.32 Chronic diastolic (congestive) heart failure; I35.0 Nonrheumatic aortic (valve) stenosis; E87.6 Hypokalemia; M19.049 Primary osteoarthritis, unspecified hand
CPT/HCPCS: 36415; 80053; 83735; 83880; 84550; 85025

== ENCOUNTER 2024-09-01 11:56 | Outpatient (RCR) | payer MEDICARE, SELFPAY ==
--- NOTE | 2024-09-02 10:42 | HP.OTEVAL ---
Patient's Visit Information Visit Information Visit Information: LIANA VALENCIA is a 84 year old F, referred to Occupational Therapy by Dr. Ashvin Cardenas MD, with a diagnosis of RA with right hand ulnar drift. Date of Evaluation: 09/01/24 Occupational Therapist: Mildred Amaya, OTR/Sly, CHT Subjective Subjective: This 84 year old female was seen for OT eval with RA with subluxation of right hand. pt arrives with dtr- states her fingers have been arthritic for quite a while- noticed 2-3 months ago her right hand her MF and RF were drifting to her little finger. pt is right handed pt in June was at [facility] for heart attack- mtg with medication at this time. pt states she ambulates with ww when out of house and straight cane in home- use of right hand with cane in home- likes to sit and do cross words and puzzles. pt states her hand does get sore after about an hour of holding her pencil while working on her cross words- pt states at times they just hurt. Pain right hand: Current Pain Intensity: 3 Pain Intensity Range: 3 ROM ROM Comments: pt demo with right MF and RF subluxation of right hand left hand demo no noted subluxation but multi joint OA nodules Sensation Sensation Comments: denies Quick DASH-Disab of Arm,Shoulder& Hand Quick DASH Score: 36.3625 Goals Goal:: pt and family will demo understanding of using supportive bracing to decrease joint stress by end of 1st session. pt will demo IND donning/doffing of orthosis/bracing by d/c pt will demo understanding of joint protection gerri. by end of visit 2. Rehabilitation General Assessment: pt demo with right MF and RF ulnar drift with subluxation. pt is painful with daily use and would benefit from further skilled OT services 2-4 visits to work with pt and family with supportive bracing. Today therapist ed. pt on a variety of soft ulnar drift supportive braces- pt chose one. pts dtr will berry picker machine operator and work with pt to use- due to pts thin skin pt high wrist of irritation or tears. A night brace could support pt but due to needing to get up in the middle of the night x 2 a least to use bathroom both pt and dtr decided that would not work. Anticipated Interventions Anticipated Interventions: Modalities, Orthoses, Joint Protection/Energy Conservation, Ergonomic Education, Education re assistive Equipment, Caregiver Training and Home Program Visit Plan General Plan: worked with pt and showed them ulnar drift bracing working on avoiding holding items long periods of time ok to move in comfortable ROM no repetitive motion TEXT: Thank you for the opportunity to evaluate your patient. For Medicare and Medicare HMO plans, please review the plan of care and approve it. It will need to be FAXED BACK to us at [phone] for Medicare purposes. Please let me know if there are questions or concerns regarding this plan of care. Physician Signature: Date:
== END 2024-09-01 19:00 | disposition home or self-care (01) ==
LOC: OT 11:56
PROVIDERS: PCP Family Medicine; Referring Provider Family Medicine; Visit Provider Family Medicine
DX: M19.049 Primary osteoarthritis, unspecified hand (principal)
CPT/HCPCS: 97166; 97530

== ENCOUNTER → 2024-10-27 | Outpatient (CLI) | payer MEDICARE, SELFPAY ==
[2024-10-27 18:34] LABS: Anion Gap 14 (5-15); BUN 32 mg/dL (4-19); BUN/Creat Ratio 22.9 RATIO (10-20); Calcium,Total 9.1 mg/dL (7.6-11.0); Carbon Dioxide 25.7 mmol/L (21.0-32.0); Chloride 96 mmol/L (98-108); Creatinine, Serum 1.38 mg/dL (0.70-1.20); EST Glomerular Filtration Rate 38 (>60); Glucose 210 mg/dL (70-99); Potassium 4.5 mmol/L (3.3-5.1); Sodium Level 136 mmol/L (133-145)
== END | disposition home or self-care (01) ==
LOC: MTLAB 15:34
PROVIDERS: PCP Family Medicine; Referring Provider Internal Medicine Interventional Cardiology; Visit Provider Internal Medicine Interventional Cardiology
DX: I25.5 Ischemic cardiomyopathy (principal); I35.0 Nonrheumatic aortic (valve) stenosis; I25.10 Atherosclerotic heart disease of native coronary artery without angina pectoris
CPT/HCPCS: 36415; 80048

== ENCOUNTER 2024-11-25 00:12 | Inpatient (IN) | payer MEDICARE, SELFPAY ==
[2024-11-25] VITALS (38 sets, daily range): BP systolic 87–126; BP diastolic 40–79; PULSE 96–134; RESP 8–47; TEMP 36.3–37.4; O2SAT 86–98; BMI 23.2
--- NOTE | 2024-11-25 01:58 | EKG12_ITS ---
Test Reason : DYSRHYTHMIA Blood Pressure : */* mmHG Vent. Rate : 97 BPM Atrial Rate : 97 BPM P-R Int : 150 ms QRS Dur : 88 ms QT Int : 394 ms P-R-T Axes : 63 0 68 degrees QTcB Int : 500 ms Sinus rhythm with occasional Premature ventricular complexes Possible Left atrial enlargement Left ventricular hypertrophy with repolarization abnormality ( R in aVL , Sokolow-Giordano , Ollie product ) Prolonged QT Abnormal ECG Confirmed by Abdullahi Alarcon ([id number]), editor dictionary [address] ([id number]) on 11/27/2024 9:54:51 AM Referred By: Confirmed By: Abdullahi Alarcon
[2024-11-25 02:10] LABS: Absolute Lymphocyte Count 1.43 X10^3/uL (0.83-4.51); Absolute Neutrophil Count 9.9 X10^3/uL (2.0-7.7); Basophil# 0.06 X10^3/uL; Basophil% 0.5 % (0-1); Eosinophil# 0.02 X10^3/uL; Eosinophils% 0.2 % (0-5); Hematocrit 37.7 % (37-47); Hemoglobin 12.7 g/dL (12.0-15.0); Lymphocyte # 1.43 X10^3/ul (0.83-4.51); Lymphocyte % 11.3 % (19-41); Mean Corp Hgb Conc 33.7 g/dL (32-36); Mean Corpuscular Hgb 33.2 pg (27.0-32.0); Mean Corpuscular Volume 98.7 fL (81-99); Mean Platelet Vol. 10.5 fl (6.2-12.0); Monocyte# 0.92 X10^3/uL; Monocyte% 7.3 % (0-10); NRBC Flagged by Analyzer 0 % (0-5); Neutrophil % 78.6 % (47-70); Platelet Count 209 K/mm3 (150-450); RBC Distribution Width CV 17.8 % (11.6-14.6); RBC Distribution Width SD 63.7 fl (35.1-43.9); Red Blood Count 3.82 M/mm3 (4.2-5.4); White Blood Count 12.6 K/mm3 (4.4-11.0)
[2024-11-25] MEDS: Ondansetron 4 MG/2 ML Vial IV ×3 (02:16→23:45)
[2024-11-25 02:31] LABS: Anion Gap 17 (5-15); BUN 31 mg/dL (4-19); BUN/Creat Ratio 22.9 RATIO (10-20); Calcium,Total 9.4 mg/dL (7.6-11.0); Carbon Dioxide 21.3 mmol/L (21.0-32.0); Chloride 95 mmol/L (98-108); Creatinine, Serum 1.35 mg/dL (0.70-1.20); EST Glomerular Filtration Rate 39 (>60); Estimated Creatinine Clearance 22.28 ml/min (50-250); Glucose 191 mg/dL (70-99); Magnesium 1.7 mg/dL (1.5-2.2); Potassium 3.9 mmol/L (3.3-5.1); Pro- Brain NATRIURETIC PEPTIDE 3812 pg/mL (<=1800); Sodium Level 133 mmol/L (133-145)
--- NOTE | 2024-11-25 02:50 | RAD_ITS ---
PROCEDURE: CHEST 1 VIEW (PORTABLE) 11/25/2024 REASON FOR EXAM: DYSPNEA TECHNIQUE: Frontal view of the chest. COMPARISON: 07/01/2024 FINDINGS: Similar appearance of increased perihilar and peripheral markings with a lower lung predominance suggesting pulmonary edema. Trace left pleural fluid suggested. Cardiac silhouette is again noted be enlarged for technique. Atherosclerotic changes of the aortic arch and descending thoracic aorta again noted. Curvature of the upper thoracic spine again seen. RAD/Chest 1 View (Portable) IMPRESSION: Findings most consistent with CHF as above. Reading Location: [id number]
[2024-11-25 03:28] LABS: Troponin T High Sensitivity 266 ng/L (<=14)
--- NOTE | 2024-11-25 03:34 | CT_ITS ---
PROCEDURE: ABDOMEN/PELVIS W IV CONT ONLY 11/25/2024 REASON FOR EXAM: ABD PAIN / ? SBO TECHNIQUE: Abdomen and pelvis CT with intravenous contrast. Coronal and Sagittal reconstruction series were provided. PATIENT PREPARATION: Per protocol ORAL CONTRAST TYPE: None. CONTRAST: 72 cc Isovue 370 IV One or more dose reduction techniques were used (e.g., Automated exposure control, adjustment of the mA and/or kV according to patient size, use of iterative reconstruction technique. RADIATION DOSE SUMMARY: CTDlvol: 10.60 mGy DLP: 519.56 mGycm COMPARISON: 05/29/2024 and 04/03/2023 FINDINGS: Patchy perihilar opacities at the visualized bases with septal thickening suggested and small pleural effusions may represent pulmonary edema, congestive heart failure, clinically correlate. Right coronary calcification and/or stent again noted. Thin layer of low-density along the inner left ventricle again noted which can be seen as sequela of previous myocardial infarction for example axial 6. 1 cm enhancing focus subcapsular anterior liver again seen, possible hemangioma or AVM, unchanged. Suggestion of mild hepatic steatosis. The gallbladder is not identified. The adrenal glands, kidneys and spleen appear within limits. There is again note of pancreatic atrophy with multiple pancreatic calcifications consistent with sequela of chronic pancreatitis. 1.5 cm cystic focus at the head of the pancreas again seen coronal 44 not significantly changed. Cluster of cystic appearing areas at the tail of the pancreas measuring 2.5 x 1.5 cm again noted, not significantly changed. No CT evidence of acute pancreatitis. Aortoiliac atherosclerotic changes. No abdominal aortic aneurysm. No adenopathy. Left abdomen colostomy again noted. Diverticulosis without diverticulitis. No bowel dilation or free air. 5.3 cm duodenal diverticulum again noted. Normal caliber appendix without secondary signs. Ovaries/adnexa, uterus and bladder appear within limits. Bilateral fallopian tube clips noted. No free fluid. Lumbar spondylosis with mild anterolisthesis L4 on L5. CT/Abdomen/Pelvis W IV Cont ONLY IMPRESSION: Left abdomen colostomy again noted. Diverticulosis without diverticulitis. No b owel dilation or free air. 5.3 cm duodenal diverticulum again noted. Normal caliber appendix without secondary signs. Patchy perihilar opacities at the visualized bases with septal thickening sugge sted and small pleural effusions may represent pulmonary edema, congestive heart failure, clinically correlate. Right coronar y calcification and/or stent again noted. Thin layer of low-density along the inner left ventricle again noted which can be se en as sequela of previous myocardial infarction for example axial 6. 1 cm enhancing focus subcapsular anterior liver again seen, possible hemangioma or AVM, unchanged. Suggestion of mild hepatic steatosis. There is again note of pancreatic atrophy with multiple pancreatic calcificatio ns consistent with sequela of chronic pancreatitis. 1.5 cm cystic focus at the head of the pancreas again seen workman l 44 not significantly changed. Cluster of cystic appearing areas at the tail of the pancreas measuring 2.5 x 1.5 cm again noted, not significantly changed. No CT evidence of acute pancreatitis. Reading Location: [id number]
[2024-11-25 04:04] LABS: Troponin T High Sens 2 HR 1033 ng/L (<=14)
[2024-11-25 05:40] LABS: Troponin T High Sens 4 HR 1311 ng/L (<=14)
[2024-11-25 06:01] LABS: Prothrombin Time (Protime)PT. 13.5 SECONDS (11.7-14.9)
[2024-11-25 06:02] LABS: Partial Thromboplast Time 24.3 Seconds (24.1-36.2)
[2024-11-25] MEDS: Heparin Injection (Vial) 5,000 UNIT/ML VIAL 3500 UNIT IV (06:06)
[2024-11-25] MEDS: Furosemide 20 MG/2 ML VIAL IV (06:06)
[2024-11-25] MEDS: HEPARIN/D5w 25,000 UNITS 25,000 UNITS/250 ML IV.SOLN. 7 UNITS CONT INF (06:07)
--- NOTE | 2024-11-25 06:31 | EDS_ITS ---
HPI History of Present Illness Chief Complaint: Shortness of Breath Informant: patient and family Narrative Narrative: Patient is an 84-year-old female with past medical history of hypertension congestive heart failure aortic stenosis and coronary artery disease. Patient and family state that her CAD in order stenosis is severe and they were recently at [facility] where her weft straightener is. They informed her that based on her significant disease and medical comorbidities that she is not a candidate for intervention and that she needs to control her symptoms with medical management. Patient and family state that she typically feels discomfort daily but that it is more of a mild pressure sensation and that it will typically resolve with medication and time. However this evening the patient experienced more severe chest discomfort which she states radiated towards her neck and made her feel nauseous and short of breath. With the change or worsening of symptoms there was concern this could be cardiac in nature and therefore she was brought to the hospital for evaluation [facility] Medical History History of CAD (coronary artery disease) Osteoarthritis Osteoporosis Congestive heart failure (CHF) DVT (deep venous thrombosis) MGUS (monoclonal gammopathy of unknown significance) Secondary adrenal insufficiency Loss of hearing Wears glasses History of Clostridium difficile infection Forgetfulness History of steroid therapy Walker as ambulation aid Bladder disease Low iron Fatty liver Easy bruising Dietary restriction Difficulty swallowing Difficulty chewing History of hiatal hernia Colostomy in place Gastric reflux History of edema History of echocardiogram Cardiology follow-up encounter History of CHF (congestive heart failure) History of irregular heartbeat Heart attack (~03/2022) Abdominal pain Bloating symptom Bright red blood per rectum Presence of stent in coronary artery (~04/06/22) Elevated troponin History of non-ST elevation myocardial infarction (NSTEMI) Nonrheumatic aortic (valve) stenosis with insufficiency Nonrheumatic mitral valve stenosis with insufficiency Pulmonary arterial hypertension Aortic insufficiency Severe mitral regurgitation Chronic hyponatremia Idiopathic thrombocytopenia Macular degeneration Lupus Rheumatic fever Hearing loss, right Hearing loss, left Hyperthyroidism Osteopenia Hepatitis Non-smoker Migraines Diverticulitis Adrenal insufficiency NASAL POLYP REMOVED History of left heart catheterization (LHC) (~03/27/22) 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 Tachycardia Heart disease Glaucoma Hypothyroidism Monoclonal gammopathies Hypertension Home Medications ?Medication ?Instructions ?Recorded ?Last Taken ?Type hydroxychloroquine 200 mg tablet 200 mg PO DAILYCM [facility] 06/23/17 05/28/24 History levothyroxine 75 mcg tablet 75 mcg PO DAILY thyroid 05/14/24 History cholecalciferol (vitamin D3) 50 2,000 unit PO DAILY [place] PPLEMENT 07/30/19 05/28/24 History mcg (2,000 unit) capsule atorvastatin 40 mg tablet 40 mg PO DAILY 05/04/2205/16 History clopidogrel 75 mg tablet (Plavix) 75 mg PO DAILY 05/0405/28/24 History ferrous sulfate 325 mg (65 mg 325 mg PO Q OTHER DAY 05/13/24 History iron) tablet Lactobacillus acidophilus 10 10,000 mmu cells PO DAILY IMMUNE 07/13/22 05/28/24 History billion cell capsule (Probiotic) HEALTH aspirin 81 mg tablet,delayed 81 mg PO DAILY 07/13/22 1 07/28/23 History release (Adult Low Dose Aspirin) cyanocobalamin (vitamin B-12) 100 100 mcg PO DAILY 05/28/24 History mcg tablet bimatoprost 0.01 % eye drops 1 drp EACH EYE DAILY 10/06 Unknown History (Dawn) [id number] 2 cap PO TID 06/17/24 Unknow n History 12,000-38,000-60,000 unit capsule,delayed rel (Creon) pantoprazole 20 mg tablet,delayed 20 mg PO BID 4 Unknown History release metoprolol tartrate 75 mg tablet 75 mg PO BID 07/22/24 Unknown History potassium chloride 10 mEq 20 meq PO BID 07/22/24 Unkno wn History capsule,extended release torsemide 20 mg tablet 80 mg PO BID 07/22/24 Unknow n History hydrocortisone 10 mg tablet 10 mg PO DAILY #90 tabs Unknown Rx sennosides 8.6 mg capsule (senna) 8.6 mg PO BID PRN Unknown History allopurinol 100 mg tablet 100 mg PO QDAY 09/05/24 Unkn own History budesonide 3 mg 3 mg PO DAILY inflammation # 30 ea 10/16/24 Unknown Rx capsule,delayed,extended release isosorbide dinitrate 30 mg tablet 30 mg PO QDAY Unknown History ranolazine 500 mg tablet,extended 500 mg PO BID Unknown History release,12 hr ferrous sulfate 324 mg (65 mg 324 mg PO QODAY 11/25/24 Unknown History iron) tablet,delayed release isosorbide mononitrate 30 mg 30 mg PO DAILY 11/25/24 U nknown History tablet,extended release 24 hr metoprolol succinate 25 mg PO 11/25/24 Unknown History tablet,extended release 24 hr Allergy/AdvReac Type Severity Reaction Status Date / Time Penicillins (PCN) Allergy Hives Verified 11/25/24 00:18 Sulfa (Sulfonamide AdvReac Severe Rash Verified 11/25/24 00:18 Antibiotics) griseofulvin (From Priti-PEG AdvReac Intermediate Other Verified 11/25/24 00:18 (ultramicrosize)) azathioprine (From Imuran) AdvReac Vomiting Verified 11/25/24 00:18 colchicine AdvReac Other Verified 11/25/24 00:18 doxycycline AdvReac Rash Verified 11/25/24 00:18 famotidine (From Pepcid) AdvReac Other Verified 11/25/24 00:18 Family History Father Heart disease Pacemaker Mother Heart disease Brother Myocardial infarction Sister Myocardial infarction Heart disease Surgical History H/O colonoscopy History of sinus surgery H/O dilation and curettage Presence of coronary angioplasty implant and graft Status post colon resection (~12/2021) h/o mass removed from hip H/O cataract extraction H/O tubal ligation Hx of cholecystectomy Social History (Updated 11/25/24 @ 00:19 by [place] Ramesh) household members: spouse, family and caregiver housing: house number of children: 5 current occupational status: retired Smoking Status: Never smoker alcohol intake: never substance use type: does not use caffeine: No additional social history: Barbara Sanford-Daughter- Manages Medical care ROS ROS ED Constitutional Constitutional ED: Denies chills or fever(s) Eyes Eyes: Denies change in vision ENT ENT ED: Denies sore throat Cardiovascular Cardiovascular: Reports chest pain, palpitations and racing heartbeat Respiratory/Chest Respiratory/Chest: Reports dyspnea; Denies cough Gastrointestinal Gastrointestinal: Reports abdominal pain and nausea; Denies diarrhea or vomiting Genitourinary Genitourinary ED: Denies dysuria Musculoskeletal Musculoskeletal: Denies myalgias Integumentary Denies rash Neurologic Neurologic: Reports weakness; Denies headache(s) Hematologic/Lymphatic Hematologic/Lymphatic: Reports easy bleeding and easy bruising EXAM Physical Exam Const Vital Signs: 11/25/24 00:13 11/25/24 00:18 11/25/24 00:18 Temperature 98.1 F 98.3 F Temperature Source Oral Oral Pulse Rate 114 H 115 H Respiratory Rate 30 H 32 H Respiratory Effort Short of Breath Labored Respiratory Depth Shallow Respiratory Pattern Tachypnea Blood Pressure 105/67 105/67 Blood Pressure Mean 79 79 Pulse Ox 94 94 Oxygen Delivery Method Nasal Cannula Nasal Cannula Nasal Cannula Oxygen Flow Rate (L/min) 2 2 11/25/24 01:18 11/25/24 02:00 11/25/24 03:00 Temperature 98.3 F 98 F Temperature Source Oral Temporal Pulse Rate 96 101 H 99 Respiratory Rate 24 H 22 H 24 H Respiratory Effort Respiratory Depth Respiratory Pattern Blood Pressure 108/68 90/52 L 94/40 L Blood Pressure Mean 81 64 58 Pulse Ox 94 94 93 Oxygen Delivery Method Nasal Cannula Room Air Room Air Oxygen Flow Rate (L/min) 2 11/25/24 04:00 11/25/24 04:19 11/25/24 05:00 Temperature 98.3 F Temperature Source Temporal Pulse Rate 107 H 106 H 104 H Respiratory Rate 28 H 22 H 26 H Respiratory Effort Respiratory Depth Respiratory Pattern Blood Pressure 91/61 97/64 Blood Pressure Mean 71 75 Pulse Ox 86 90 93 Oxygen Delivery Method Room Air Nasal Cannula Nasal Cannula Oxygen Flow Rate (L/min) 2 2 11/25/24 06:00 Temperature Temperature Source Pulse Rate 101 H Respiratory Rate 27 H Respiratory Effort Respiratory Depth Respiratory Pattern Blood Pressure 100/50 L Blood Pressure Mean 66 Pulse Ox 95 Oxygen Delivery Method Nasal Cannula Oxygen Flow Rate (L/min) 2 Positive well nourished and well developed General Appearance ED: well developed HEENT HEENT Narrative: No tongue or lip swelling no oral lesions no airway edema or compromise Eyes PERRL and EOMs intact bilaterally General Eye ED: Yes pale conjunctiva; Negative for scleral icterus Neck supple and no JVD Neck Narrative: No nuchal rigidity or meningeal signs noted Chest Wall palpation of chest normal Chest Narrative: No bony deformity or crepitance or reproducible chest discomfort Resp Resp Narrative: Breath sounds are diminished throughout with crackles noted in the bilateral bases However no nasal flaring or retractions. No accessory muscle use Mild tachypnea is noted Cardio regular rhythm Rate: tachycardic and other Other Details: Tachycardic rate with regular rhythm There is a grade 4 out of 6 holosystolic murmur Radial and carotid pulses are equal and symmetric GI no masses GI Narrative: Abdomen is soft with slight distention mainly along the right sided abdomen with mild tenderness to palpation at this site. There is an ostomy in place draining liquidy stool. There is increased tympany along the right side abdomen. No rigidity noted. No peritoneal signs. No pulsatile mass or fluid wave. Auscultation: hypoactive bowel sounds Palpation: soft Extremity normal to inspection Extremity Narrative: No asymmetric edema no pitting edema negative Homans' sign bilaterally Neuro oriented x3, CN's II-XII intact bilaterally and no sensory deficits noted Sensorium / Orientation: alert Psych Psych Narrative: Patient has a depressed/flat affect Skin Skin Narrative: Multiple areas of ecchymosis noted across the body consistent with history of aspirin and Plavix use MDM MDM MDM Narrative Medical decision making narrative: Patient arrived to the ER in mild respiratory distress. History and exam is concerning for acute coronary syndrome with her known history of CAD and worsening of symptoms. Hypoxia could also be secondary to acute exacerbation of congestive heart failure or acute blood loss anemia. Patient did have a cardiac dysrhythmia or electrolyte abnormality. With her mild abdominal distention and pain there is concern for potential ileus or small bowel obstruction or colitis as a cause of symptoms as well. An EKG was obtained which showed ST segment depression throughout the lateral leads. However this was compared to EKG from June 2024 and is very similar nature going against an acute STEMI. Initial troponin is elevated at 266 however family reports the patient was recently at [facility] and the troponins during that time were roughly 230 and therefore the slight elevation is not clinically significant. However the patient's 2-hour delta increased to 1033 indicating she has had lack of blood flow to the heart. Her proBNP is elevated at approximately 4000 and she has findings of vascular congestion on chest x-ray all consistent with history of CHF or worsening of symptoms secondary to an acute IN. The case was discussed with [facility] cardiology Dr. Gilman. She reviewed the patient's chart and confirms that she has multivessel disease and severe aortic stenosis but she is not a candidate for any type of intervention based on her medical comorbidities. She recommends medical therapy. She states with findings of CHF patient can undergo mild diuresis and also recommends that if her 4-hour troponin continues to elevate and patient continues to feel unwell the heparin can be started. The 4-hour troponin did increase by approximately 300 to a value of 1311. The patient still reported feeling not right at that time and therefore the patient was placed on heparin. I discussed with patient potential admission in our facility versus transfer to [facility] as Dr. Gilman did confirm that there would be no need for intervention and that she can be medically managed. The patient and family state they are very comfortable at [facility] under the care of her weft straightener and therefore would like to be transferred to that facility. Therefore they were contacted once again and do agree to accept the patient as she has continued elevation of troponin consistent with an NSTEMI. History & Record Review Discussion w/independent historian: EMS personnel and Family Lab Data Attestation: I reviewed the patient's lab results. Labs: Laboratory Results - last 24 hr 11/25/24 11/25/24 11/25/24 00:35 03:22 05:10 WBC 12.6 H RBC 3.82 L Hgb 12.7 Hct 37.7 MCV 98.7 MCH 33.2 H MCHC 33.7 RDW Std Deviation 63.7 H RDW Coeff of Samreen 17.8 H Plt Count 209 MPV 10.5 Immature Gran % (Auto) 2.100 H Neut % (Auto) 78.6 H Lymph % (Auto) 11.3 L [place] % (Auto) 7.3 Eos % (Auto) 0.2 Baso % (Auto) 0.5 Absolute Neuts (auto) 9.9 H Absolute Lymphs (auto) 1.43 Nucleated RBC % 0 PT 13.5 INR 1.0 APTT 24.3 Sodium 133 Potassium 3.9 Chloride 95 L Carbon Dioxide 21.3 Anion Gap 17 H BUN 31 H Creatinine 1.35 H Estim Creat Clear Calc 22.28 L Est GFR (MDRD) Non-Af 39 L BUN/Creatinine Ratio 22.9 H Glucose 191 H Calcium 9.4 Magnesium 1.7 Troponin T High Sens 266 H* Troponin T Hi Sens 2 Hr 1033 H* Troponin T Hi Sens 4Hr 1311 H* NT pro BNP II 3812 H Radiography Diagnostic Testing: Clinical Impression(s) from Imaging Studies Chest X-Ray 11/25/24 02:50 IMPRESSION: Findings most consistent with CHF as above. Reading Location: [facility] Abdomen/Pelvis CT 11/25/24 03:34 IMPRESSION: Left abdomen colostomy again noted. Diverticulosis without diverticulitis. No bowel dilation or free air. 5.3 cm duodenal diverticulum again noted. Normal caliber appendix without secondary signs. Patchy perihilar opacities at the visualized bases with septal thickening suggested and small pleural effusions may represent pulmonary edema, congestive heart failure, clinically correlate. Right coronary calcification and/or stent again noted. Thin layer of low-density along the inner left ventricle again noted which can be seen as sequela of previous myocardial infarction for example axial 6. 1 cm enhancing focus subcapsular anterior liver again seen, possible hemangioma or AVM, unchanged. Suggestion of mild hepatic steatosis. There is again note of pancreatic atrophy with multiple pancreatic calcifications consistent with sequela of chronic pancreatitis. 1.5 cm cystic focus at the head of the pancreas again seen coronal 44 not significantly changed. Cluster of cystic appearing areas at the tail of the pancreas measuring 2.5 x 1.5 cm again noted, not significantly changed. No CT evidence of acute pancreatitis. Reading Location: [facility] Chest x-ray as interpreted by the emergency medicine physician reveals cardiomegaly with increased vascular congestion consistent with CHF Management Discussion w/another healthcare provider: [employer] Rec[employer] Critical Care Time Critical Care Time: Yes Critical care time (excluding procedures): Discussing w/Patient &/or Family/Turret Punch Operator, Discussing w/Consultants, Arranging Admission or Transfer and - (Please note critical care time of 33 minutes) Discharge Plan Triage Chief Complaint: Shortness of Breath ED Provider: Destin Echeverria Dx/Rx/DC Orders Clinical Impression: Non-ST elevation IN (NSTEMI), CHF (congestive heart failure), CAD (coronary artery disease), Status post partial colectomy, Hyperlipidemia Prescriptions: No Action ferrous sulfate 325 mg (65 mg iron) tablet 325 mg PO Q OTHER DAY clopidogrel [Plavix] 75 mg tablet 75 mg PO DAILY atorvastatin 40 mg tablet 40 mg PO DAILY aspirin [Adult Low Dose Aspirin] 81 mg tablet,delayed release (DR/EC) 81 mg PO DAILY cyanocobalamin (vitamin B-12) 100 mcg tablet 100 mcg PO DAILY torsemide 20 mg tablet 80 mg PO BID metoprolol tartrate 75 mg tablet 75 mg PO BID senna 8.6 mg capsule 8.6 mg PO BID PRN hydrocortisone 10 mg tablet 10 mg PO DAILY Qty: 90 3RF allopurinol 100 mg tablet 100 mg PO QDAY isosorbide dinitrate 30 mg tablet 30 mg PO QDAY Rx Instructions: allow nitrate-free interval of 12-14 hrs per 24-hr period levothyroxine 75 MCG tablet 75 mcg PO DAILY Rx Instructions: name brand synthroid hydroxychloroquine 200 MG tablet 200 mg PO DAILYCM cholecalciferol (vitamin D3) 2,000 UNIT capsule 2,000 unit PO DAILY Probiotic 10 billion cell capsule 10,000 mmu cells PO DAILY ranolazine 500 mg tablet extended release 12 hr 500 mg PO BID potassium chloride 10 mEq capsule, extended release 20 meq PO BID Patient Comments: PT MIXES CONTENTS OF CAPSULE WITH CHOCOLATE PUDDING Creon 12,000-38,000 -60,000 unit capsule,delayed release(DR/EC) 2 cap PO TID Rx Instructions: administer with meals and/or snacks pantoprazole 20 mg tablet,delayed release (DR/EC) 20 mg PO BID Lumigan 0.01 % drops 1 drp EACH EYE DAILY budesonide 3 mg capsule,delayed,extend.release 3 mg PO DAILY Qty: 30 2RF Primary Care Provider: Ashvin Cardenas Referrals: Ashvin Cardenas MD [Primary Care Provider] - Print Language: Thai Disposition Disposition: Acute Care Hospital Discharge Location: [facility]
--- NOTE | 2024-11-25 08:46 | PCA ---
CALLED [facility] FOR A BED UPDATED @ 0813 AND SPOKE WITH DELMY. THEY WERE WAITING FOR A BED AT THE [facility]
--- NOTE | 2024-11-25 11:05 | ED.RN ---
This RN called to room by patient's family. Daughter concerned for increased SOB. Patient's 02 was 90% on 2L, O2 increased to 3L
--- NOTE | 2024-11-25 11:30 | ED.RN ---
Dr See asked if cultures and lactic orders were needed at this time due to patient decline and currently being a sepsis alert. Dr. See stated he did not want cultures or lactic at this time.
[2024-11-25 11:46] LABS: Mucous, Urine 0 SEEN /hpf (<or=2+); Red Blood Cells-Urine 0 SEEN /hpf (0-5)
--- NOTE | 2024-11-25 12:04 | PCA ---
CALLED [facility] @ 3568 SAID IT WOULD BE LATER TODAY AT [facility] BEFORE THEY HAD A BED, [facility] IS AT [facility].
[2024-11-25] MEDS: Bumetanide 1 MG/4 ML Vial 2 MG IV (12:07)
[2024-11-25 12:08] LABS: Color, Urine Yellow (Yellow); Glucose, Dipstick Normal (Normal); Ketone-Dipstick Negative (Negative); Leukocyte Esterase-Dipstick 500 /ul (Negative); Nitrite-Dipstick Negative (Negative); Occult Blood-Urine 150 /ul (Negative); Protein-Dipstick 100 mg/dl (Negative); Urine Bilirubin Dipstick Negative (Negative); Urine Clarity Turbid (Clear); Urine Urobilinogen Normal (Normal)
[2024-11-25 12:13] LABS: Bacteria 3+ /hpf (None Seen); Squamous Epithelial Cells - UA 10-25 SEEN /hpf (5-10); White Blood Cells >100 SEEN /hpf (0-5)
[2024-11-25 12:55] LABS: Partial Thromboplast Time 119.1 Seconds (24.1-36.2)
[2024-11-25] MEDS: Meropenem 1 GM in 0.9% Normal Saline (100mL MB+) 100 ML IV (13:01)
[2024-11-25 13:34] LABS: Lactic Acid 3.7 mmol/L (0.0-2.0)
[2024-11-25] MEDS: Furosemide 500 MG in Empty Viaflex 50 mL 1 EACH CONT INF (14:37)
[2024-11-25 16:47] LABS: Reflex Lactate? Y
[2024-11-25 18:21] LABS: Lactic Acid 4.1 mmol/L (0.0-2.0)
--- NOTE | 2024-11-25 19:08 | PCM.HP.STD ---
[facility] - General General Date of Admission: 11/25/24 Date of Service: 11/25/24 Chief Complaint: Shortness of breath HPI Narrative LIANA VALENCIA, is a 84 F who presents to the emergency room at [facility] with complaints of shortness of breath over the last 24 hours. Patient also complained of some vague chest discomfort. Patient has a history of triple-vessel coronary disease as well as aortic stenosis. Evaluation in the emergency room included chest x-ray which indicated the patient to be in congestive heart failure, patient's troponin was elevated at 266 with repeat troponins at 2 and 4 hours resulting in a reading of 1033 and 1311 respectively. Patient's beta natruretic peptide was elevated at 3812. Patient's creatinine was elevated at 1.35 and BUN was 31. Patient was placed on BiPAP and given IV Bumex. 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 Patient stayed in the emergency room for several hours and there was not a bed available at [facility] so the hospitalist service was called to admit the patient. Prior to admission to the hospital, the emergency room physician had a long talk with the family about CODE STATUS for the patient and it was decided the patient would be a DNR CC arrest without intubation. Patient was admitted to PCU and placed on a Lasix drip, pulse ox will be monitored. [facility] Medical History History of CAD (coronary artery disease) Osteoarthritis Osteoporosis Congestive heart failure (CHF) DVT (deep venous thrombosis) MGUS (monoclonal gammopathy of unknown significance) Secondary adrenal insufficiency Loss of hearing Wears glasses History of Clostridium difficile infection Forgetfulness History of steroid therapy Walker as ambulation aid Bladder disease Low iron Fatty liver Easy bruising Dietary restriction Difficulty swallowing Difficulty chewing History of hiatal hernia Colostomy in place Gastric reflux History of edema History of echocardiogram Cardiology follow-up encounter History of CHF (congestive heart failure) History of irregular heartbeat Heart attack (~03/2022) Abdominal pain Bloating symptom Bright red blood per rectum Presence of stent in coronary artery (~04/06/22) Elevated troponin History of non-ST elevation myocardial infarction (NSTEMI) Nonrheumatic aortic (valve) stenosis with insufficiency Nonrheumatic mitral valve stenosis with insufficiency Pulmonary arterial hypertension Aortic insufficiency Severe mitral regurgitation Chronic hyponatremia Idiopathic thrombocytopenia Macular degeneration Lupus Rheumatic fever Hearing loss, right Hearing loss, left Hyperthyroidism Osteopenia Hepatitis Non-smoker Migraines Diverticulitis Adrenal insufficiency NASAL POLYP REMOVED History of left heart catheterization (LHC) (~03/27/22) 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 Tachycardia Heart disease Glaucoma Hypothyroidism Monoclonal gammopathies Hypertension Home Medications ?Medication ?Instructions ?Recorded ?Last Taken ?Type hydroxychloroquine 200 mg tablet 200 mg PO DAILYCM lupus 06/23/17 11/24/24 History levothyroxine 75 mcg tablet 75 mcg PO DAILY thyroid 06/23/17 11/24/24 History cholecalciferol (vitamin D3) 50 2,000 unit PO DAILY SUPPLEMENT 07/30/19 11/24/24 History mcg (2,000 unit) capsule atorvastatin 40 mg tablet 40 mg PO QHS 05/04/22 11/24/24 History clopidogrel 75 mg tablet (Plavix) 75 mg PO DAILY 05/04/22 11/24/24 History ferrous sulfate 325 mg (65 mg 325 mg PO QODAY 05/24/22 11/24/24 History iron) tablet Lactobacillus acidophilus 10 10,000 mmu cells PO DAILY IMMUNE 07/13/22 11/24/24 History billion cell capsule (Probiotic) HEALTH aspirin 81 mg tablet,delayed 81 mg PO DAILY 07/13/22 11/24/24 History release (Adult Low Dose Aspirin) cyanocobalamin (vitamin B-12) 100 100 mcg PO DAILY 07/13/22 11/24/24 History mcg tablet bimatoprost 0.01 % eye drops 1 drp EACH EYE QHS 06/17/24 11/24/24 History (Lumigan) javnsn-umcogglh-mxbnuxw 2 cap PO TID 06/17/24 11/24/24 History 12,000-38,000-60,000 unit capsule,delayed rel (Creon) pantoprazole 20 mg tablet,delayed 20 mg PO BID 06/17/24 11/24/24 History release metoprolol tartrate 75 mg tablet 75 mg PO BID 07/22/24 11/24/24 History potassium chloride 10 mEq 30 meq PO BID 07/22/24 11/24/24 History capsule,extended release torsemide 20 mg tablet 80 mg PO BID 07/22/24 11/24/24 History hydrocortisone 10 mg tablet 10 mg PO DAILY #90 tabs 08/01/24 11/24/24 Rx sennosides 8.6 mg capsule (senna) 8.6 mg PO BID PRN constipation 08/01/24 Unknown History allopurinol 100 mg tablet 100 mg PO DAILY 09/05/24 11/24/24 History budesonide 3 mg 3 mg PO DAILY inflammation #30 ea 10/16/24 11/24/24 Rx capsule,delayed,extended release ranolazine 500 mg tablet,extended 500 mg PO BID 11/21/24 11/24/24 History release,12 hr cyanocobalamin (B12)-cobamamide 1 tab sublingual DAILY 11/25/24 11/24/24 History 5,000 mcg-100 mcg sublingual tablet cyclosporine 0.05 % eye drops in a 1 drp ophthalmic (eye) BID 11/25/24 11/24/24 History dropperette ferrous sulfate 324 mg (65 mg 324 mg PO QODAY 11/25/24 11/24/24 History iron) tablet,delayed release isosorbide mononitrate 30 mg 30 mg PO DAILY 11/25/24 11/24/24 History tablet,extended release 24 hr metoprolol succinate 25 mg 75 mg PO BID 11/25/24 11/24/24 History tablet,extended release 24 hr Allergy/AdvReac Type Severity Reaction Status Date / Time Penicillins (PCN) Allergy Hives Verified 11/25/24 00:18 Sulfa (Sulfonamide AdvReac Severe Rash Verified 11/25/24 00:18 Antibiotics) griseofulvin (From Priti-PEG AdvReac Intermediate Other Verified 11/25/24 00:18 (ultramicrosize)) azathioprine (From Imuran) AdvReac Vomiting Verified 11/25/24 00:18 colchicine AdvReac Other Verified 11/25/24 00:18 doxycycline AdvReac Rash Verified 11/25/24 00:18 famotidine (From Pepcid) AdvReac Other Verified 11/25/24 00:18 Family History Father Heart disease Pacemaker Mother Heart disease Brother Myocardial infarction Sister Myocardial infarction Heart disease Surgical History H/O colonoscopy History of sinus surgery H/O dilation and curettage Presence of coronary angioplasty implant and graft Status post colon resection (~12/2021) h/o mass removed from hip H/O cataract extraction H/O tubal ligation Hx of cholecystectomy Social History household members: spouse, family and caregiver housing: house number of children: 5 current occupational status: retired Smoking Status: Never smoker alcohol intake: never substance use type: does not use caffeine: No additional social history: Barbara Sanford-Daughter- Manages Medical care ROS Review of Systems ROS Unobtainable: other Details: Review of systems was not obtained due to patient's respiratory distress and need for BiPAP Vital Signs Vital Signs Vital Signs: 11/25/24 00:13 11/25/24 00:18 11/25/24 00:18 Temperature 98.1 F 98.3 F Temperature Source Oral Oral Pulse Rate 114 H 115 H Respiratory Rate 30 H 32 H Respiratory Effort Short of Breath Labored Respiratory Depth Shallow Respiratory Pattern Tachypnea Blood Pressure 105/67 105/67 Blood Pressure Mean 79 79 Pulse Ox 94 94 Oxygen Delivery Method Nasal Cannula Nasal Cannula Nasal Cannula Oxygen Flow Rate (L/min) 2 2 Fraction of Inspired Oxygen (FIO2) 11/25/24 01:18 11/25/24 02:00 11/25/24 03:00 Temperature 98.3 F 98 F Temperature Source Oral Temporal Pulse Rate 96 101 H 99 Respiratory Rate 24 H 22 H 24 H Respiratory Effort Respiratory Depth Respiratory Pattern Blood Pressure 108/68 90/52 L 94/40 L Blood Pressure Mean 81 64 58 Pulse Ox 94 94 93 Oxygen Delivery Method Nasal Cannula Room Air Room Air Oxygen Flow Rate (L/min) 2 Fraction of Inspired Oxygen (FIO2) 11/25/24 04:00 11/25/24 04:19 11/25/24 05:00 Temperature 98.3 F Temperature Source Temporal Pulse Rate 107 H 106 H 104 H Respiratory Rate 28 H 22 H 26 H Respiratory Effort Respiratory Depth Respiratory Pattern Blood Pressure 91/61 97/64 Blood Pressure Mean 71 75 Pulse Ox 86 90 93 Oxygen Delivery Method Room Air Nasal Cannula Nasal Cannula Oxygen Flow Rate (L/min) 2 2 Fraction of Inspired Oxygen (FIO2) 11/25/24 06:00 11/25/24 07:00 11/25/24 08:00 Temperature 98.3 F Temperature Source Temporal Pulse Rate 101 H 103 H 106 H Respiratory Rate 27 H 30 H 30 H Respiratory Effort Respiratory Depth Respiratory Pattern Blood Pressure 100/50 L 104/62 109/71 Blood Pressure Mean 66 76 83 Pulse Ox 95 94 93 Oxygen Delivery Method Nasal Cannula Nasal Cannula Nasal Cannula Oxygen Flow Rate (L/min) 2 2 2 Fraction of Inspired Oxygen (FIO2) 11/25/24 09:00 11/25/24 10:05 11/25/24 11:00 Temperature 97.4 F L 97.6 F L Temperature Source Temporal Oral Pulse Rate 110 H 114 H 116 H Respiratory Rate 40 H 34 H 47 H Respiratory Effort Respiratory Depth Respiratory Pattern Blood Pressure 108/70 117/72 102/66 Blood Pressure Mean 82 87 78 Pulse Ox 92 90 91 Oxygen Delivery Method Nasal Cannula Nasal Cannula Nasal Cannula Oxygen Flow Rate (L/min) 2 2 3 Fraction of Inspired Oxygen (FIO2) 11/25/24 11:00 11/25/24 11:48 11/25/24 12:00 Temperature Temperature Source Pulse Rate 115 H 113 H Respiratory Rate 38 H 38 H Respiratory Effort Respiratory Depth Respiratory Pattern Blood Pressure 87/66 L 95/60 Blood Pressure Mean 73 71 Pulse Ox 91 95 Oxygen Delivery Method Bi-pap Oxygen Flow Rate (L/min) Fraction of Inspired Oxygen (FIO2) 35 11/25/24 13:00 11/25/24 13:20 11/25/24 13:33 Temperature 97.6 F L Temperature Source Pulse Rate 117 H 125 H 124 H Respiratory Rate 37 H 33 H 37 H Respiratory Effort Respiratory Depth Respiratory Pattern Tachypnea Blood Pressure 92/59 L 94/64 Blood Pressure Mean 70 74 Pulse Ox 94 93 94 Oxygen Delivery Method Bi-pap Oxygen Flow Rate (L/min) Fraction of Inspired Oxygen (FIO2) 35 11/25/24 16:12 Temperature Temperature Source Pulse Rate 122 H Respiratory Rate 35 H Respiratory Effort Respiratory Depth Respiratory Pattern Tachypnea Blood Pressure Blood Pressure Mean Pulse Ox 95 Oxygen Delivery Method Oxygen Flow Rate (L/min) Fraction of Inspired Oxygen (FIO2) 35 Weight Weight: 50.4 kg Body Mass Index (BMI) 23.2 Physical Exam Const alert, no apparent distress and healthy appearing Constitutional Narrative: Patient appears older than her stated age General Appearance: cooperative, well kempt and well developed Orientation / Consciousness: awake, oriented to person and oriented to place HEENT normocephalic, head/scalp atraumatic, hearing grossly normal bilaterally and moist oral mucous membranes Eyes PERRL, EOMs intact bilaterally and conjunctivae normal Neck supple, no JVD, thyroid normal and no carotid bruits General: trachea midline Resp Resp Narrative: Patient has shallow rapid respirations at the time of my examination, breath sounds are diminished bilaterally Auscultation: Negative for rales, rhonchi or wheezes Cardio regular rate, regular rhythm, S1 normal heart sound, S2 normal heart sound, no murmurs, no rub and no gallops Cardio Narrative: Patient is tachycardic GI normal to inspection, nondistended, normoactive bowel sounds, soft to palpation, non-tender and non-distended Extremity no clubbing, cyanosis or edema Skin no rashes or lesions noted General Skin Exam: no breakdown Neuro CN's II-XII intact bilaterally, no focal motor deficits and no sensory deficits noted Sensorium / Orientation: awake, alert, oriented to person and oriented to place Speech: speech normal Psych affect normal Results Lab / Micro Data 11/25/24 00:35 11/25/24 00:35 Labs: Laboratory Results - last 24 hr 11/25/24 00:35: WBC 12.6 H, RBC 3.82 L, Hgb 12.7, Hct 37.7, MCV 98.7, MCH 33.2 H, MCHC 33.7, RDW Std Deviation 63.7 H, RDW Coeff of Samreen 17.8 H, Plt Count 209, MPV 10.5, Immature Gran % (Auto) 2.100 H, Neut % (Auto) 78.6 H, Lymph % (Auto) 11.3 L, [place] % (Auto) 7.3, Eos % (Auto) 0.2, Baso % (Auto) 0.5, Absolute Neuts (auto) 9.9 H, Absolute Lymphs (auto) 1.43, Nucleated RBC % 0, PT 13.5, INR 1.0, APTT 24.3, Sodium 133, Potassium 3.9, Chloride 95 L, Carbon Dioxide 21.3, Anion Gap 17 H, BUN 31 H, Creatinine 1.35 H, Estim Creat Clear Calc 22.28 L, Est GFR (MDRD) Non-Af 39 L, BUN/Creatinine Ratio 22.9 H, Glucose 191 H, Calcium 9.4, Magnesium 1.7, Troponin T High Sens 266 H*, NT pro BNP II 3812 H 11/25/24 03:22: Troponin T Hi Sens 2 Hr 1033 H* 11/25/24 05:10: Troponin T Hi Sens 4Hr 1311 H* 11/25/24 11:33: Urine Color Yellow, Urine Clarity Turbid, Urine pH 5.0, Ur Specific [place] 1.020, Urine Protein 100 H, Urine Glucose (UA) Normal, Urine Ketones Negative, Urine Occult Blood 150 H, Urine Nitrite Negative, Urine Bilirubin Negative, Urine Urobilinogen Normal, Ur Leukocyte Esterase 500 H, Urine RBC 0 SEEN, Urine WBC >100 SEEN, Ur Squamous Epith Cells 10-25 SEEN, Urine Bacteria 3+, Urine Mucus 0 SEEN 11/25/24 12:26: APTT 119.1 H* 11/25/24 12:41: Lactic Acid 3.7 H* 11/25/24 17:30: Lactic Acid 4.1 H* Imaging Radiology Impression Chest X-Ray 11/25/24 02:50 IMPRESSION: Findings most consistent with CHF as above. Reading Location: [facility] Abdomen/Pelvis CT 11/25/24 03:34 IMPRESSION: Left abdomen colostomy again noted. Diverticulosis without diverticulitis. No bowel dilation or free air. 5.3 cm duodenal diverticulum again noted. Normal caliber appendix without secondary signs. Patchy perihilar opacities at the visualized bases with septal thickening suggested and small pleural effusions may represent pulmonary edema, congestive heart failure, clinically correlate. Right coronary calcification and/or stent again noted. Thin layer of low-density along the inner left ventricle again noted which can be seen as sequela of previous myocardial infarction for example axial 6. 1 cm enhancing focus subcapsular anterior liver again seen, possible hemangioma or AVM, unchanged. Suggestion of mild hepatic steatosis. There is again note of pancreatic atrophy with multiple pancreatic calcifications consistent with sequela of chronic pancreatitis. 1.5 cm cystic focus at the head of the pancreas again seen coronal 44 not significantly changed. Cluster of cystic appearing areas at the tail of the pancreas measuring 2.5 x 1.5 cm again noted, not significantly changed. No CT evidence of acute pancreatitis. Reading Location: [id number] Assessment & Plan Assessment/Plan (1) CHF (congestive heart failure): PLAN: Plan 1. Acute hypoxic respiratory failure secondary to acute on chronic congestive heart failure with preserved ejection fraction-patient was admitted to PCU, she will be monitored closely, she will be treated with a Lasix drip, [facility] notified the charge nurse today that a bed was not available at the [facility] [place] and that the patient could be admitted to the [facility], I discussed this with the patient's daughter, after discussion with family members they decided they did not want the patient to be admitted to the [facility], they stated that they talked with the 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 #2 acute [id number] had elevated cardiac enzymes along with chest pain, I feel that this was indicative of a type II NM, patient is currently on a heparin drip and will be maintained on aspirin and Plavix #3 severe aortic stenosis-again it was indicated by [facility] that the patient is not a surgical candidate, the daughter told me that they had considered taking the patient for a bypass and valve replacement in June of last year, but then reconsidered and stated that the patient was not a good surgical candidate. #4 acute on chronic congestive heart failure with preserved ejection fraction-patient's last echocardiogram showed a normal EF according to the patient's daughter, this echocardiogram was performed in June of last year. Continue IV Lasix at 10 mg/h #5 triple-vessel coronary artery disease-a heart catheterization done at [facility] 03/11/2024 showed left main with distal segment heavily calcified with 95% stenosis, LAD with ostial proximal segment 95% stenosis, circumflex with ostial proximal segment 90% stenosis, and RCA with patent stents in proximal and mid segments. Echocardiogram during that time showed moderate to severe aortic stenosis with moderate to severe mitral regurg. This indicates a poor prognosis. Patient's overall prognosis is poor, I talked to the daughter about the possibility of getting hospice involved but she stated the patient does not want hospice at this time and that she still wants to try medical treatment. Patient remains a DNR CC arrest with no intubation, I went over this with the patient's family and told them that if they change their mind about her CODE STATUS to notify nursing. Total clinical time spent by myself addressing the patient's medical issues, reviewing all of her data, and collaborating with patient's care team: 75 minutes Charges/Coding Visit Charges Inpatient E&M: 50195 Init Hosp L3
[2024-11-25] MEDS: Latanoprost 0.005% 1 Bottle 1 DRP EACH EYE (21:43)
[2024-11-25] MEDS: Meropenem 500 MG in 0.9% Normal Saline (50mL MB+) 50 ML 100 MG IV (21:43)
[2024-11-25 21:53] LABS: Partial Thromboplast Time 45.7 Seconds (24.1-36.2)
--- NOTE | 2024-11-25 23:32 | PN.HOSP_ITS ---
Hospitalist Note Patient here with respiratory failure and heart failure. Currently significantly drowsy and has oral metoprolol ordered with tachycardia. Discon tinue oral metoprolol and start IV metoprolol 5 every 6 hours. Stat ABG is pending to assess for CO2 retention.
[2024-11-25] MEDS: Metoprolol Tartrate 5 MG/5 ML Vial IV (23:47)
[2024-11-25] MEDS: 0.9% Saline Lock 10 ML Syringe IV (23:47)
[2024-11-26] VITALS (31 sets, daily range): BP systolic 55–141; BP diastolic 17–102; PULSE 101–172; RESP 8–46; TEMP 39.5; O2SAT 70–98
[2024-11-26 00:06] LABS: Base Excess -2 mmol/L (-2 to +2); Blood Gas Specimen Type ART; Comment 12. 8. 35%; Mode Not entered; O2 Delivery Device BiPAP; PO2 102 mmHG (75-100); SITE R Brach; SO2 98 % (95-99); Total Carbon Dioxide 23 mmol/L; pCO2 30.3 mmHg (35-45); pH 7.47 (7.35-7.45)
--- NOTE | 2024-11-26 02:07 | NURSING ---
[facility] called unit for update on patient. Updated on 0200 vital signs, current mentation, and recent ABG results. Still waiting for bed placement at this time.
[2024-11-26 05:15] LABS: Partial Thromboplast Time 48.1 Seconds (24.1-36.2)
[2024-11-26 05:20] LABS: Anion Gap 21 (5-15); BUN 40 mg/dL (4-19); BUN/Creat Ratio 12.1 RATIO (10-20); Calcium,Total 9.3 mg/dL (7.6-11.0); Carbon Dioxide 19.1 mmol/L (21.0-32.0); Chloride 99 mmol/L (98-108); Creatinine, Serum 3.34 mg/dL (0.70-1.20); EST Glomerular Filtration Rate 13 (>60); Estimated Creatinine Clearance 9.01 ml/min (50-250); Glucose 147 mg/dL (70-99); Potassium 4.4 mmol/L (3.3-5.1); Sodium Level 139 mmol/L (133-145)
[2024-11-26] MEDS: 0.9% Saline Lock 10 ML Syringe IV (05:25)
[2024-11-26] MEDS: Metoprolol Tartrate 5 MG/5 ML Vial IV ×2 (05:25→08:08)
--- NOTE | 2024-11-26 07:59 | ECHOL_ITS ---
Reason For Study Reason For Study: CHF Procedure This was a limited 2D transthoracic echocardiogram. EXAM for function only per Dr. Damon S/P rapid response code. The study was technically difficult. Exam performed portable in patient room. Left Ventricle Normal LV size. The left ventricular ejection fraction is 30 %. [place]ock : Akinetic. There is moderate global hypokinesis of the left ventricle. Right Ventricle Normal RV size. Normal systolic function. Mitral Valve There is moderate to severe mitral annular calcification. Pericardium/Pleural No pericardial effusion. MMode/2D Measurements & Calculations LVIDd: 5.2 cm IVSd: 1.1 cm LVAd ap4: 19.6 cm2 LVIDs: 4.6 cm LVPWd: 1.1 cm LVLd ap4: 6.8 cm FS: 11.5 % EDV(MOD-sp4): 46.1 ml EDV(sp4-el): 48.2 ml LVAs ap4: 16.6 cm2 LVLs ap4: 6.8 cm ESV(MOD-sp4): 32.7 ml ESV(sp4-el): 34.4 ml EF(MOD-sp4): 29.2 % EF(sp4-el): 28.6 % LVAd ap2: 15.4 cm2 SV(MOD-sp4): 13.5 ml SV(MOD-sp2): 5.3 ml LVLd ap2: 7.1 cm SI(MOD-sp4): 9.8 ml/m2 SI(MOD-sp2): 3.9 ml/m2 EDV(MOD-sp2): 26.7 ml EDV(sp2-el): 28.3 ml LVAs ap2: 12.9 cm2 LVLs ap2: 6.6 cm ESV(MOD-sp2): 21.4 ml ESV(sp2-el): 21.5 ml EF(MOD-sp2): 20.0 % SV(sp4-el): 13.8 ml ECHO/Echo, Limited Study Interpretation Summary Normal LV size. The left ventricular ejection fraction is 30 %. [place]ock : Akinetic. There is moderate global hypokinesis of the left ventricle. The study was technically limited. Limited views were obtained. Ordering Physician: Salomón Damon Referring Physician: Ashvin Cardenas Performed By: Preethi Chavez, ZEV, RVT
--- NOTE | 2024-11-26 08:02 | RAD_ITS ---
PROCEDURE: CHEST 1 VIEW (PORTABLE) 11/26/2024 REASON FOR EXAM: CHF Increasing shortness of breath. TECHNIQUE: Frontal view of the chest. COMPARISON: Prior study dated November 25, 2024. FINDINGS: Hardware: EKG seen. Heart: Heart size is mildly enlarged. There is calcification of the mitral valve annulus. Calcification of the aortic arch. Lungs: Since prior study, there has been improvement in the vascular congestion and CHF. Residual pleural-parenchymal changes at the left lung base. Bones: Degenerative changes are identified within the thoracic spine. Other: RAD/Chest 1 View (Portable) IMPRESSION: Improved aeration with residual pleural-parenchymal changes at the left lung ba se. Reading Location: [facility]
[2024-11-26] MEDS: 0.9% Normal Saline (500mL Bag) 500 ML 250 ML IV (08:45)
--- NOTE | 2024-11-26 09:15 | EKG12_ITS ---
Test Reason : ARRYTH Blood Pressure : */* mmHG Vent. Rate : 153 BPM Atrial Rate : 306 BPM P-R Int : * ms QRS Dur : 82 ms QT Int : 252 ms P-R-T Axes : 54 -21 111 degrees QTcB Int : 402 ms Critical Test Result: High HR Atrial flutter with 2:1 A-V conduction Left ventricular hypertrophy with repolarization abnormality ( R in aVL , Ollie product ) Abnormal ECG When compared with ECG of 25-Nov-2024 02:19, MANUAL COMPARISON REQUIRED DATA IS UNCONFIRMED Confirmed by DEJA COELLO, GARETH ([id number]), advertising editor [address]UL ST ([id number]) on 12/01/2024 9:32:42 AM Referred By: BETO Confirmed By: GARETH SHORT MD
[2024-11-26] MEDS: Meropenem 500 MG in 0.9% Normal Saline (50mL MB+) 50 ML 100 MG IV (09:20)
[2024-11-26] MEDS: Acetaminophen 650 MG Suppository RC (09:43)
--- NOTE | 2024-11-26 11:07 | CASEMGMT ---
Patient has . Patient's family was in the hallway. SW asked if they needed anything and they would like water. SW showed family the kitchenette on the unit. They denied any other needs and thanked KARRIE. Mary Jo Hernandez STEAM FITTER SUPERVISOR MAINTENANCEChetna KELLER
--- NOTE | 2024-11-26 11:26 | NURSING ---
Time of 950 verified No lung sounds and no femoral pulse with Justin Briscoe RN. Dr Damon notified.
--- NOTE | 2024-11-26 12:18 | NURSING ---
WRITING MANAGER called at 0830 due to this RN unable to get a pulse ox reading above 80's despite pt being on 30% on bipap. Pt with worsening mental status, and need for MD to come to bedside. See WRITING MANAGER documentation.
[2024-11-26 13:10] LABS: Bedside Glucose 102 mg/dL (74-106)
--- NOTE | 2024-11-26 13:26 | CHAPLAIN ---
Type of Pastoral Visit ___ Initial Visit ___ Follow-up Visit ___ On-call Visit ___ General Patient Visit ___ Spiritual Assessment ___ Family Conference _x__ Bereavement ___ Rapid Response ___ Code Blue ___ Other (describe below) Pastoral Care Referral From _x__ Patient ___ Family ___ Nurse ___ Physician ___ Dental Laboratory Technology Teacher ___ Liquified Natural Gas Technician ___ Other (describe below) Sacrament/Intervention ___ Active listening ___ Anointing ___ Congregational _x__ Bereavement ___ Communion ___ Sunshine exploration ___ ___ Life review ___ Prayer ___ Reconciliation ___ Sacrament of Sick ___ Supportive presence ___ Wedding ___ Other (describe below) Pastoral Comments patient was a referral for spiritual care; upon arriving at the room, security and funeral service apprentice were there as patient had earlier; per nurse the family members had just left the building a few minutes earlier;
--- NOTE | 2024-11-27 15:34 | EXP.PCM_ITS ---
Preliminary Cause of Preliminary Cause of Preliminary Cause of : Acute respiratory failure secondary to cardiogenic shock with resulting congestive heart failure from myocardial infarction. Date of Admission: 11/25/24 Date of : 11/26/24 Principle Diagnosis 1. 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 Destin Echeverria, DO) CHF (congestive heart failure) (Acute) Hospital Course This 84-year-old white female was seen in the emergency room at [facility] with complaints of shortness of breath. Workup in the emergency room included a troponin that was elevated at 266, a beta natruretic peptide that was elevated at 3812, and a chest x-ray which showed evidence of congestive heart failure. Patient had a known history of severe triple-vessel coronary artery disease and severe aortic stenosis, I decision had been made by her training administrator in [place] not to do any further intervention for this because of her poor medical condition. Patient's family requested the patient be transferred to [facility] for further care by her training administrator, it was known to the family that there would not be any cardiac intervention such as a bypass, stent placement, or cardiac catheterization. [facility] did not have a bed for the patient, patient was admitted to PCU and placed on IV Lasix and required BiPAP for noninvasive ventilation. Discussions were carried out with the family members and at first they could not decide whether the patient should be intubated if necessary but they did not want the patient to undergo chest compressions if she coded. On the morning of 11/26/2024, patient's status worsened and she became hypotensive and her respiratory failure worsened. An FARM ADVISER was called and the patient's family had mixed feelings about whether to allow her to be intubated, a stat echocardiogram was performed at the patient's family's request and it was found that the patient's pumping function was approximately 25 to 30%. The patient's family members decided in the and not to intubate the patient and the patient became a DNR CC arrest without intubation. Approximately an hour later, the patient's status worsened and she went into a bradycardia and ultimately asystole and passed at 9:51 AM. Visit Charges Inpatient E&M: 83485 Disch Hosp >30min
== END 2024-11-26 12:00 ==
LOC: ED 12:51 → PCU 13:23
PROVIDERS: Emergency Medicine; Admitting Provider Internal Medicine; Emergency Provider Emergency Medicine; PCP Family Medicine; Visit Provider Internal Medicine
DX: I21.4 Non-ST elevation (NSTEMI) myocardial infarction (principal); J96.01 Acute respiratory failure with hypoxia; I50.33 Acute on chronic diastolic (congestive) heart failure; K86.2 Cyst of pancreas; E27.40 Unspecified adrenocortical insufficiency; N17.9 Acute kidney failure, unspecified; N30.00 Acute cystitis without hematuria; R57.0 Cardiogenic shock; K86.89 Other specified diseases of pancreas; I50.84 End stage heart failure; I11.0 Hypertensive heart disease with heart failure; I08.0 Rheumatic disorders of both mitral and aortic valves; F32.A Depression, unspecified; K76.0 Fatty (change of) liver, not elsewhere classified; E03.9 Hypothyroidism, unspecified; Z93.3 Colostomy status; I25.5 Ischemic cardiomyopathy; E78.5 Hyperlipidemia, unspecified; I25.10 Atherosclerotic heart disease of native coronary artery without angina pectoris; M19.90 Unspecified osteoarthritis, unspecified site; I46.9 Cardiac arrest, cause unspecified; R00.1 Bradycardia, unspecified; Z66 Do not resuscitate; Z90.49 Acquired absence of other specified parts of digestive tract; Z79.02 Long term (current) use of antithrombotics/antiplatelets; Z95.5 Presence of coronary angioplasty implant and graft; M81.0 Age-related osteoporosis without current pathological fracture; Z86.718 Personal history of other venous thrombosis and embolism; H91.90 Unspecified hearing loss, unspecified ear; Z99.89 Dependence on other enabling machines and devices; H40.9 Unspecified glaucoma; Z79.890 Hormone replacement therapy; Z79.899 Other long term (current) drug therapy; Z79.82 Long term (current) use of aspirin; Z79.52 Long term (current) use of systemic steroids; Z79.51 Long term (current) use of inhaled steroids; Z88.1 Allergy status to other antibiotic agents; Z88.2 Allergy status to sulfonamides; Z88.8 Allergy status to other drugs, medicaments and biological substances
CPT/HCPCS: 36415; 36600; 71045; 74177; 80048; 81001; 82803; 82962; 83605; 83735; 83880; 84484; 85025; 85610; 85730; 87040; 87086; 87088; 93005; 93308; 94002; 94003; 94762; 97802; 99252; 99285; J2185; Q9967; A4216; G0463; J1938; J2405